=== PATIENT | male | born 1945 | race African-American/Black ===

== ENCOUNTER 2019-04-03 16:20 | Inpatient (IN) | payer MEDICARE, OTHER ==
[~2019-04-03] VITALS: Ht 170.2 cm; Wt 65.3 kg
--- NOTE | 2019-04-03 16:27 | NUR ---
ED Nurse Note: Pt brought in by ambulance d/t generalized weakness. Pt became so weak 3 days ago that he "slipped and fell." Pt denies trauma. Pt unable to ambulate at this time. Pt could not get out of bed to go get food, so pt is very hungry. Will ask ED MD about diet. A+Ox4, denies pain/SOB. Respirations even and unlabored on room air. Vitals stable as documented. Pt placed on monitor.
--- NOTE | 2019-04-03 16:32 | Emergency Room Report ---
History of Present Illness General Chief Complaint: Generalized Weakness Source: Patient, Friend Present Illness HPI Patient is a 73-year-old male presented after increased generalized weakness. Patient had a fall approximately 3 days ago. He denies hitting his head. He has been weak all over. Prior history of prostate cancer stage III. Chronic indwelling Morales catheter. He had been noted to have not been eating for several days and had been in bed. Denies any vomiting. Allergies: Coded Allergies: No Known Allergies (Unverified , 04/03/19) Patient History Past Medical History: see triage record Reviewed Nursing Documentation: PMH: Agreed; PSxH: Agreed Nursing Documentation-PMH Past Medical History: No History, Except For Hx Hypertension: Yes Hx COPD: Yes Review of Systems All Other Systems: negative except mentioned in HPI Physical Exam Vital Signs Date Time Temp Pulse Resp B/P (MAP) Pulse Ox O2 Delivery O2 Flow Rate FiO2 04/03/19 16:15 96.4 83 16 119/81 (94) 96 Room Air Sp02 EP Interpretation: reviewed, normal General Appearance: normal inspection, alert, Chronically Ill Head: atraumatic ENT: normal ENT inspection, normal voice, dry mucus membranes Neck: normal inspection, full range of motion, supple, no bony tend Respiratory: normal inspection, lungs clear, normal breath sounds, no respiratory distress, no retraction, no wheezing Cardiovascular #1: regular rate, rhythm, no edema Gastrointestinal: normal inspection, normal bowel sounds, non tender, soft, no guarding, no hernia Genitourinary: no CVA tenderness Musculoskeletal: normal inspection, back normal, normal range of motion Neurologic: alert, motor strength/tone normal, oriented, motor weakness, responsive, speech normal, other - atrophy to muscles Psychiatric: normal inspection, judgement/insight normal, mood/affect normal Skin: no rash Medical Decision Making Diagnostic Impression: Primary Impression: Episode of generalized weakness Additional Impressions: Stage III adenocarcinoma of prostate Dehydration ER Course Patient presented for increased generalized weakness after recent fall. The differential diagnosis include was not limited to electrolyte abnormality, dehydration, rhabdomyolysis, anemia among others. Because of complexity of patient's case laboratory tests and imaging studies were ordered. CT of the head read by radiology showed atrophic changes without evident intracranial hemorrhage. Laboratory studies showed some hyper natremia as well as low BUN. Patient's oral mucosa appeared to be dry. He was given oral fluids as well as IV fluids. Dr. Sawyer Toussaint was contacted for inpatient management. Labs Test 04/03/19 17:00 04/03/19 17:30 Urine Color Brown Urine Appearance Turbid Urine pH 5 (4.5-8.0) Urine Specific [place] 1.020 (1.005-1.035) Urine Protein 4+ (NEGATIVE) Urine Glucose (UA) Negative (NEGATIVE) Urine Ketones 3+ (NEGATIVE) Urine Blood 5+ (NEGATIVE) Urine Nitrite Positive (NEGATIVE) Urine Bilirubin 1+ (NEGATIVE) Urine Ictotest Negative (NEGATIVE) Urine Urobilinogen 1 MG/DL (0.0-1.0) Urine Leukocyte Esterase 3+ (NEGATIVE) Urine RBC Tntc /HPF (0 - 0) Urine WBC 20-30 /HPF (0 - 0) Urine Squamous Epithelial Cells Occasional /LPF Urine Bacteria Many /HPF (NONE) White Blood Count 10.4 K/UL (4.8-10.8) Red Blood Count 3.54 M/UL (4.70-6.10) Hemoglobin 9.8 G/DL (14.2-18.0) Hematocrit 29.7 % (42.0-52.0) Mean Corpuscular Volume 84 FL (80-99) Mean Corpuscular Hemoglobin 27.6 PG (27.0-31.0) Mean Corpuscular Hemoglobin Concent 32.9 G/DL (32.0-36.0) Red Cell Distribution Width 16.6 % (11.6-14.8) Platelet Count 241 K/UL (150-450) Mean Platelet Volume 5.6 FL (6.5-10.1) Neutrophils (%) (Auto) % (45.0-75.0) Lymphocytes (%) (Auto) % (20.0-45.0) Monocytes (%) (Auto) % (1.0-10.0) Eosinophils (%) (Auto) % (0.0-3.0) Basophils (%) (Auto) % (0.0-2.0) Sodium Level 148 MMOL/L (136-145) Potassium Level 3.7 MMOL/L (3.5-5.1) Chloride Level 110 MMOL/L (98-107) Carbon Dioxide Level 26 MMOL/L (21-32) Anion Gap 13 mmol/L (5-15) Blood Urea Nitrogen 4 mg/dL (7-18) Creatinine 0.7 MG/DL (0.55-1.30) Estimat Glomerular Filtration Rate mL/min (>60) Glucose Level 100 MG/DL (74-106) Calcium Level 8.1 MG/DL (8.5-10.1) Total Bilirubin 0.1 MG/DL (0.2-1.0) Aspartate Amino Transf (AST/SGOT) 32 U/L (15-37) Alanine Aminotransferase (ALT/SGPT) 32 U/L (12-78) Alkaline Phosphatase 91 U/L (46-116) Total Creatine Kinase 208 U/L (26-308) Troponin I 0.028 ng/mL (0.000-0.056) Pro-B-Type Natriuretic Peptide 32 pg/mL (0-125) Total Protein 8.0 G/DL (6.4-8.2) Albumin 4.0 G/DL (3.4-5.0) Globulin 4.0 g/dL Albumin/Globulin Ratio 1.0 (1.0-2.7) Thyroid Stimulating Hormone (TSH) 1.095 uiU/mL (0.358-3.740) EKG Diagnostic Results Rate: normal - Low voltage no acute ST or T wave changes rate of 86 Rhythm: NSR ST Segments: no acute changes Last Vital Signs Date Time Temp Pulse Resp B/P (MAP) Pulse Ox O2 Delivery O2 Flow Rate FiO2 04/03/19 16:15 96.4 83 16 119/81 (94) 96 Room Air Status: improved Disposition: ADMITTED INPATIENT Condition: Stable Joaquim Rubalcava MD Apr 03, 2019 16:32
--- NOTE | 2019-04-03 17:13 | NUR ---
ED Nurse Note: IV inserted, but not able to draw blood. Attempted blood draw, but patient is hard stick. Called lab for draw. Pt left for CT. will draw blood when pt is back
[2019-04-03 17:20] VITALS: BP 119/81
--- NOTE | 2019-04-03 17:40 | NUR ---
ED Nurse Note: blood drawn and sent to lab
[2019-04-03 17:48] LABS: HEMATOCRIT 29.7 % (42.0-52.0); HEMOGLOBIN 9.8 G/DL (14.2-18.0); MEAN CORPUSCULAR VOLUME 84 FL (80-99); PLATELET COUNT 241 K/UL (150-450); RED BLOOD COUNT 3.54 M/UL (4.70-6.10); RED CELL DISTRIBUTION WIDTH 16.6 % (11.6-14.8); WHITE BLOOD COUNT 10.4 K/UL (4.8-10.8)
[2019-04-03 17:53] LABS: APPEARANCE,URINE TURBID; BILIRUBIN, URINE 1+ (NEGATIVE); COLOR,URINE BROWN; GLUCOSE, URINE (UA) NEGATIVE (NEGATIVE); KETONES,URINE 3+ (NEGATIVE); LEUKOCYTE ESTERASE ,URINE 3+ (NEGATIVE); NITRITE,URINE POSITIVE (NEGATIVE); PH,URINE 5 (4.5-8.0); PROTEIN,URINE 4+ (NEGATIVE); UROBILINOGEN,URINE 1 MG/DL (0.0-1.0)
[2019-04-03] MEDS ORDERED: MORPHINE IR15 MG ORAL (18:02)
[2019-04-03] MEDS ORDERED: OXYCONTIN10 MG ORAL (18:02)
[2019-04-03] MEDS ORDERED: SULFAMETHOXAZO1 EAC1 ORAL (18:02)
[2019-04-03] MEDS ORDERED: ALBUTEROL2.5 MG/3 M INH (18:02)
[2019-04-03] MEDS ORDERED: AMLODIPINE BESYL5 MG ORAL (18:02)
[2019-04-03] MEDS ORDERED: ZOFRAN ODT8 MG ORAL (18:02)
[2019-04-03 18:06] LABS: ANION GAP 13 mmol/L (5-15); BLOOD UREA NITROGEN 4 mg/dL (7-18); CALCIUM 8.1 MG/DL (8.5-10.1); CARBON DIOXIDE 26 MMOL/L (21-32); CHLORIDE 110 MMOL/L (98-107); CREATININE 0.7 MG/DL (0.55-1.30); POTASSIUM 3.7 MMOL/L (3.5-5.1); SODIUM 148 MMOL/L (136-145)
--- NOTE | 2019-04-03 18:10 | Diagnostic Imaging Report ---
EXAM: CT Head Without Intravenous Contrast CLINICAL HISTORY: AMS TECHNIQUE: Axial computed tomography images of the head/brain without intravenous contrast. CTDI is 60.0 mGy and DLP is 1299.7 mGy-cm. One or more of the following dose reduction techniques were used: automated exposure control, adjustment of the mA and/or kV according to patient size, use of iterative reconstruction technique. COMPARISON: None FINDINGS: Brain: No acute infarct or hemorrhage identified. No extra-axial fluid collection. No mass effect or midline shift. Scattered areas of hypoattenuation in the supratentorial white matter likely represent chronic small vessel ischemic changes. Ventricles and sulci: Prominence of the ventricles and sulci is likely secondary to cerebral volume loss. Bones: Old fracture deformities of the lamina papyracea. No bony lesion or acute fracture. Subcutaneous tissues: Normal. Sinuses: Polyp versus mucous retention cyst in the left frontal sinus. Mastoid air cells: Normal. Orbits: Grossly unremarkable. Other: Atherosclerotic calcifications in the intracranial vasculature. IMPRESSION: 1. No acute intracranial abnormality. 2. Mild chronic small vessel ischemic changes and cerebral volume loss.
--- NOTE | 2019-04-03 18:11 | NUR ---
ED Nurse Note: [place] and juice given to patient.
[2019-04-03 18:20] LABS: ALANINE AMINOTRANSFERASE 32 U/L (12-78); ALKALINE PHOSPHATASE 91 U/L (46-116); ASPARTATE AMINO TRANSFERASE 32 U/L (15-37); BILIRUBIN,TOTAL 0.1 MG/DL (0.2-1.0)
--- NOTE | 2019-04-03 18:40 | NUR ---
ED Nurse Note: ED MD and family @ bedside. MD added another lab. Called Lab and they said they have enough blood for the CK.
[2019-04-03 18:51] LABS: CREATINE KINASE 208 U/L (26-308)
--- NOTE | 2019-04-03 19:09 | NUR ---
ED Nurse Note: Report given to BLANCA Briggs. Plan of care endorsed.
[2019-04-03 19:10] VITALS: BP 125/73
--- NOTE | 2019-04-03 19:19 | NUR ---
ED Nurse Note: Received report from June RIOS.
[2019-04-03] MEDS ORDERED: cefTRIAXone 1 GM in D5W 55 ML IVPB ONE (20:00)
--- NOTE | 2019-04-03 21:07 | NUR ---
ED Nurse Note: Report given to Try RN.
[2019-04-03 21:10] VITALS: BP 122/72
--- NOTE | 2019-04-03 21:10 | NUR ---
TRANSFER TO FLOOR: Patient transferred to Telemetry unit. Report given to TRy RN. Pt alert and oriented, verbally responsive. No SOB. Not in any distress. Afebrile. Sinus rhythm. IV line on right forearm 22g, patent and intact. No skin issues. Med recon done. All belongings sent with the patient.
[2019-04-03 21:30] VITALS: BP 134/84
[2019-04-04] VITALS: BP 105/70
[2019-04-04 04:00] VITALS: BP 124/68
[2019-04-04 07:30] LABS: HEMATOCRIT 25.9 % (42.0-52.0); HEMOGLOBIN 9.2 G/DL (14.2-18.0); MEAN CORPUSCULAR VOLUME 81 FL (80-99); PLATELET COUNT 252 K/UL (150-450); RED CELL DISTRIBUTION WIDTH 15.7 % (11.6-14.8); WHITE BLOOD COUNT 11.4 K/UL (4.8-10.8)
--- NOTE | 2019-04-04 07:50 | NUR ---
NURSE NOTES: Received bedside report from Chris RIOS. Pt. in bed, awake, a/o x 4. No sign of distress. Denies pain at present. F/C in placed patent/intact draining yellow colored urine. IV at right FA #20g. in placed patent/intact running NS at 75cc/hr. Bed in low position, locked. Call light within reach. Will cont. to monitor.
[2019-04-04 08:00] VITALS: BP 127/77
[2019-04-04 08:21] LABS: ANION GAP 16 mmol/L (5-15); BLOOD UREA NITROGEN 36 mg/dL (7-18); CARBON DIOXIDE 24 MMOL/L (21-32); CHLORIDE 108 MMOL/L (98-107); CREATININE 1.9 MG/DL (0.55-1.30); SODIUM 148 MMOL/L (136-145)
[2019-04-04 08:26] LABS: CALCIUM 13.4 MG/DL (8.5-10.1); POTASSIUM 2.6 MMOL/L (3.5-5.1)
--- NOTE | 2019-04-04 08:29 | NUR ---
NURSE NOTES: Dr. Toussaint (here at present) informed him regarding critical labs. K+ 2.6 and Calcium 13.4 he will review.
[2019-04-04] MEDS: Enoxaparin 30mg Inj SUBQ SCH (09:02)
--- NOTE | 2019-04-04 10:40 | NUR ---
NURSE NOTES: Amy (dtr) of pt. called and told RN that pt. supposedly to be transfer to [facility] last night and told RN not to give anymore medications. Explained due to his low K+ level and calcium Dr. Ro ordered K+ 40meq. IV x over an hour and calcitonin spray. She said (Amy) [facility] will know what to give for him because he is a pt. over there for 5 years now. CODY Smyth RN handed the matter regarding this issue. Gave CN the dtr's Amy .
[2019-04-04 12:00] VITALS: BP 126/89
--- NOTE | 2019-04-04 12:04 | Consultation ---
History of Present Illness General Date patient seen: Apr 04, 2019 Chief Complaint: Generalized Weakness Present Illness HPI 73 y/o M wtih hx of prostate CA stage III, chronic indwelling guerra catheter presented to ED on 04/03 with increased generalized weakness after having fall 3 days prior to admission. Decreased appetite. Denied hitting his head, vomiting. Allergies: Coded Allergies: No Known Allergies (Unverified , 04/03/19) Medication History Scheduled Amlodipine Besylate* (Amlodipine Besylate*), 5 MG ORAL DAILY, (Reported) Oxycodone Hcl Er* (Oxycontin*), 10 MG ORAL EVERY 6 HOURS, (Reported) Sulfamethoxazole/Trimethoprim Ss Tab* (Sulfamethoxazole-Tmp Ss Tablet*), 1 TAB ORAL TWICE A DAY, (Reported) Scheduled PRN Albuterol Sulfate* (Albuterol Sulfate Hhn*), 3 ML INH Q6H PRN for Shortness of Breath, (Reported) Morphine HCl (Morphine Sulfate ER), 30 MG ORAL Q12HR PRN for For Pain, (Reported ) Ondansetron Odt* (Zofran Odt*), 8 MG ORAL Q8HR PRN for Nausea & Vomiting, ( Reported) Patient History Healthcare decision maker Resuscitation status Full Code Advanced Directive on File Patient History Narrative Pmhx: as above Shx: reviewed Fhx: non contributory Review of Systems All Other Systems: negative except mentioned in HPI Physical Exam Physical Exam Narrative General Appearance: normal inspection, alert, Chronically Ill Head: atraumatic ENT: normal ENT inspection, normal voice, dry mucus membranes Neck: normal inspection, full range of motion, supple, no bony tend Respiratory: normal inspection, lungs clear, normal breath sounds, no respiratory distress, no retraction, no wheezing Cardiovascular #1: regular rate, rhythm, no edema Gastrointestinal: normal inspection, normal bowel sounds, non tender, soft, no guarding, no hernia Genitourinary: no CVA tenderness Musculoskeletal: normal inspection, back normal, normal range of motion Neurologic: alert, motor strength/tone normal, oriented, motor weakness, responsive, speech normal, other - atrophy to muscles Psychiatric: normal inspection, judgement/insight normal, mood/affect normal Skin: no rash Last 24 Hour Vital Signs Date Time Temp Pulse Resp B/P (MAP) Pulse Ox O2 Delivery O2 Flow Rate FiO2 04/04/19 08:00 97.0 111 20 127/77 (94) 93 04/04/19 04:00 97.7 82 18 124/68 (86) 98 04/04/19 04:00 110 04/04/19 00:00 92 04/04/19 00:00 97.6 88 18 105/70 (82) 95 04/03/19 21:30 97.4 89 18 134/84 (101) 97 04/03/19 21:11 Room Air 04/03/19 21:10 98.5 82 19 122/72 97 Room Air 04/03/19 21:10 98.5 82 19 122/72 97 Room Air 04/03/19 19:10 97.9 71 19 125/73 100 Room Air 04/03/19 17:20 83 16 Room Air 04/03/19 17:20 96.4 75 16 119/81 96 Room Air 04/03/19 16:15 96.4 83 16 119/81 (94) 96 Room Air Intake and Output 04/03/19 04/04/19 19:00 07:00 Intake Total 1000 ml Output Total 300 ml Balance 1000 ml -300 ml Intake Oral 0 ml IV Total 1000 ml Output Urine Total 300 ml Laboratory Tests Test 04/03/19 17:00 04/03/19 17:30 04/04/19 06:20 Urine Color Brown Urine Appearance Turbid Urine pH 5 (4.5-8.0) Urine Specific [place] 1.020 (1.005-1.035) Urine Protein 4+ (NEGATIVE) H Urine Glucose (UA) Negative (NEGATIVE) Urine Ketones 3+ (NEGATIVE) H Urine Blood 5+ (NEGATIVE) H Urine Nitrite Positive (NEGATIVE) H Urine Bilirubin 1+ (NEGATIVE) H Urine Ictotest Negative (NEGATIVE) Urine Urobilinogen 1 MG/DL (0.0-1.0) H Urine Leukocyte Esterase 3+ (NEGATIVE) H Urine RBC Tntc /HPF (0 - 0) H Urine WBC 20-30 /HPF (0 - 0) H Urine Squamous Epithelial Cells Occasional /LPF Urine Bacteria Many /HPF (NONE) H White Blood Count 10.4 K/UL (4.8-10.8) 11.4 K/UL (4.8-10.8) H Red Blood Count 3.54 M/UL (4.70-6.10) L 3.20 M/UL (4.70-6.10) L Hemoglobin 9.8 G/DL (14.2-18.0) L 9.2 G/DL (14.2-18.0) L Hematocrit 29.7 % (42.0-52.0) L 25.9 % (42.0-52.0) L Mean Corpuscular Volume 84 FL (80-99) 81 FL (80-99) Mean Corpuscular Hemoglobin 27.6 PG (27.0-31.0) 28.8 PG (27.0-31.0) Mean Corpuscular Hemoglobin Concent 32.9 G/DL (32.0-36.0) 35.5 G/DL (32.0-36.0) Red Cell Distribution Width 16.6 % (11.6-14.8) H 15.7 % (11.6-14.8) H Platelet Count 241 K/UL (150-450) 252 K/UL (150-450) Mean Platelet Volume 5.6 FL (6.5-10.1) L 5.9 FL (6.5-10.1) L Neutrophils (%) (Auto) % (45.0-75.0) % (45.0-75.0) Lymphocytes (%) (Auto) % (20.0-45.0) % (20.0-45.0) Monocytes (%) (Auto) % (1.0-10.0) % (1.0-10.0) Eosinophils (%) (Auto) % (0.0-3.0) % (0.0-3.0) Basophils (%) (Auto) % (0.0-2.0) % (0.0-2.0) Differential Total Cells Counted 100 100 Neutrophils % (Manual) 85 % (45-75) H 86 % (45-75) H Lymphocytes % (Manual) 8 % (20-45) L 7 % (20-45) L Monocytes % (Manual) 6 % (1-10) 5 % (1-10) Eosinophils % (Manual) 1 % (0-3) 1 % (0-3) Basophils % (Manual) 0 % (0-2) 1 % (0-2) Band Neutrophils 0 % (0-8) 0 % (0-8) Platelet Estimate Adequate Adequate Platelet Morphology Normal Normal Hypochromasia 1+ 2+ Anisocytosis 1+ 1+ Sodium Level 148 MMOL/L (136-145) H 148 MMOL/L (136-145) H Potassium Level 3.7 MMOL/L (3.5-5.1) 2.6 MMOL/L (3.5-5.1) *L Chloride Level 110 MMOL/L (98-107) H 108 MMOL/L (98-107) H Carbon Dioxide Level 26 MMOL/L (21-32) 24 MMOL/L (21-32) Anion Gap 13 mmol/L (5-15) 16 mmol/L (5-15) H Blood Urea Nitrogen 4 mg/dL (7-18) L 36 mg/dL (7-18) H Creatinine 0.7 MG/DL (0.55-1.30) 1.9 MG/DL (0.55-1.30) #H Estimat Glomerular Filtration Rate mL/min (>60) mL/min (>60) Glucose Level 100 MG/DL (74-106) 97 MG/DL (74-106) Calcium Level 8.1 MG/DL (8.5-10.1) L 13.4 MG/DL (8.5-10.1) #*H Total Bilirubin 0.1 MG/DL (0.2-1.0) L Aspartate Amino Transf (AST/SGOT) 32 U/L (15-37) Alanine Aminotransferase (ALT/SGPT) 32 U/L (12-78) Alkaline Phosphatase 91 U/L (46-116) Total Creatine Kinase 208 U/L (26-308) Troponin I 0.028 ng/mL (0.000-0.056) Pro-B-Type Natriuretic Peptide 32 pg/mL (0-125) Total Protein 8.0 G/DL (6.4-8.2) Albumin 4.0 G/DL (3.4-5.0) Globulin 4.0 g/dL Albumin/Globulin Ratio 1.0 (1.0-2.7) Thyroid Stimulating Hormone (TSH) 1.095 uiU/mL (0.358-3.740) Prostate Specific Antigen 753.77 ng/mL (0.13-4.0) H Microbiology Date/Time Source Procedure Growth Status 04/03/19 17:00 Urine,Clean Catch Urine Culture - Preliminary Gram Negative Mannie Resulted Height (Feet): 5 Height (Inches): 7.00 Weight (Pounds): 100 Medications Current Medications Medications (Trade) Dose Ordered Sig/[place] Route PRN Reason Start Time Stop Time Status Last Admin Dose Admin Calcitonin [place] (Miacalcin) 1 sprays BID NASAL 04/04/19 09:30 05/04/19 09:29 Ceftriaxone Sodium 1 gm/ Dextrose 55 ml @ 110 mls/hr Q24H IVPB 04/04/19 20:00 04/11/19 19:59 Enoxaparin Sodium (Lovenox) 30 mg DAILY SUBQ 04/04/19 09:00 05/04/19 08:59 04/04/19 09:02 Potassium Chloride 100 ml @ 100 mls/hr Q1HR IVPB 04/04/19 09:00 04/04/19 12:59 04/04/19 10:07 Sodium Chloride 1,000 ml @ 75 mls/hr [id number] IV 04/03/19 20:15 05/03/19 20:14 04/04/19 10:07 Assessment/Plan Assessment/Plan: Abx: Ceftriaxone 04/03- Assessment: Sepsis UTI -u/a wbc 20-30, nit +, leuk +3; ucx >100k GNR Afebrile Mild leukocytosis s/p recent fall LETA Hypokalemia prostate CA stage III chronic indwelling guerra catheter Plan: -Continue empiric Ceftriaxone #2 pending urine culture -f/u cx -Monitor CBC/CMP, temperatures -aspiration precautions Thank you for this consultation. Will continue to follow along with you. Discussed with Rafia Little M.D. Apr 04, 2019 12:04
--- NOTE | 2019-04-04 12:09 | NUR ---
NURSE NOTES: Amy (dtr) refused for nurse to give medication. Explained risk and benefits but told RN he will received meds. at [facility].
--- NOTE | 2019-04-04 12:45 | History and Physical Report ---
DATE OF ADMISSION: 04/03/2019 DATE AND TIME SEEN: 04/04/2019 at 9 a.m. CONSULTANTS: 1. Andreas Monroy M.D. 2. Bryce Osorio M.D. 3. Timi Mota M.D. 4. Carlos White M.D. 5. Cherise Palma M.D. CHIEF COMPLAINT: Prostate CA, confusion, weakness, UTI, dehydration, and fall. BRIEF HISTORY: This is a 73-year-old male, who lives at home, presented with above-mentioned diagnoses. Currently, calm in bed, slightly confused. No complaint. REVIEW OF SYSTEMS: No chest pain. Slight short of breath. No nausea, vomiting, or diarrhea. PAST MEDICAL HISTORY: Includes prostate cancer and weakness. PAST SURGICAL HISTORY: Unknown. MEDICATIONS: Include ceftriaxone, calcitonin, , potassium, and IV fluids. ALLERGIES: Denies. SOCIAL HISTORY: No smoking. No alcohol. No intravenous drug abuse. FAMILY HISTORY: Noncontributory. PHYSICAL EXAMINATION: GENERAL: Calm in bed, oriented x1, in no acute distress. VITAL SIGNS: Temperature 97, pulse 111, respirations 20, blood pressure 127/77. CARDIOVASCULAR: No murmur. LUNGS: Distant and clear. ABDOMEN: Positive bowel sounds. Soft, nontender, nondistended. EXTREMITIES: No cyanosis, clubbing, or edema. NEUROLOGIC: The patient moves all extremities, slightly weak. LABORATORY AND DIAGNOSTIC DATA: Labs at this time show white count 11.4, hemoglobin and hematocrit 9.2/25, platelets 252. BMP show sodium 148, potassium 2.6, chloride 108, BUN and creatinine 36 and 1.9. Calcium 13.4. Urinalysis show positive nitrite, ketones 3+, blood 3+, leukocyte 3+. ASSESSMENT: 1. Prostate CA. 2. Confusion. 3. Weakness. 4. Fall. 5. Anemia. 6. UTI. 7. Dehydration. PLAN: 1. PT and dietary evaluation. 2. CBC and BMP in the morning. 3. Antibiotics per Infectious Disease. 4. IV fluids. 5. Replace potassium. 6. Psych and Neuro evaluation. Sawyer Toussaint D.O. DR: HITESH JOB#: [id number] CC:
--- NOTE | 2019-04-04 13:36 | Diagnostic Imaging Report ---
EXAM: US Retroperitoneal Limited, Renal CLINICAL HISTORY: RENAL-A TECHNIQUE: Real-time limited ultrasound of the retroperitoneum with image documentation. COMPARISON: No relevant prior studies available. FINDINGS: Right kidney: Mild-moderate right hydronephrosis. No clear renal mass.. Left kidney: Moderate left hydronephrosis. No clear renal mass. Debris within left renal calyces, potentially infectious or hemorrhagic. Urinary bladder: Decompressed by Morales catheter. IMPRESSION: Moderate left and mild-moderate right hydronephrosis. Debris within left renal calyces, potentially infectious or hemorrhagic. Urinary bladder is decompressed by Morales catheter.
[2019-04-04 16:00] VITALS: BP 151/89
[2019-04-04] MEDS: Memantine 5 MG TAB ORAL SCH (18:00)
--- NOTE | 2019-04-04 18:13 | NUR ---
NURSE NOTES: Family refused to give medications.
--- NOTE | 2019-04-04 19:13 | NUR ---
HAND-OFF: Report given to Francisco RIOS. Endorsed pt. got order to transfer to [facility] pending MD acceptance. Pt. remain stable.
--- NOTE | 2019-04-04 19:14 | NUR ---
NURSE NOTES: K:2.6 Per report from Quan RN daughter of pt does not want K to be given because says [facility] knows what to give her and she wants it to be given there. Pt in stable condition. Continue to monitor.
[2019-04-04 20:00] VITALS: BP 150/86
[2019-04-04] MEDS: cefTRIAXone 1 GM in D5W 55 ML IVPB SCH (20:34)
--- NOTE | 2019-04-04 21:00 | Consultation ---
DATE OF CONSULTATION: 04/04/2019 CONSULTING PHYSICIAN: Carlos White M.D. REASON FOR CONSULTATION: 1. Acute kidney injury. 2. Hypokalemia. 3. Dehydration. HISTORY OF PRESENT ILLNESS: The patient is a 73-year-old gentleman who lives at home, presented with dehydration, not feeling well, confusion, and upon presentation was noted to have an elevated creatinine, low potassium, and high calcium level. He does have a history of prostate cancer and is currently being treated for UTI and dehydration. PAST MEDICAL HISTORY: 1. Prostate cancer. 2. Dehydration. PAST SURGICAL HISTORY: Unclear. ALLERGIES: No known drug allergies. SOCIAL HISTORY: No tobacco, alcohol, or illicit drug use. FAMILY HISTORY: Positive for hypertension. REVIEW OF SYSTEMS: NEUROLOGIC: The patient denies headache, change in vision, syncope, or presyncopal episode. Mildly confused. CARDIOVASCULAR: No current chest pain, palpitations, or angina. PULMONARY: No difficulty breathing, productive cough, or sputum. GASTROINTESTINAL/GENITOURINARY: No changes in urinary or bowel habits. No nausea, vomiting, or diarrhea. ENDOCRINOLOGY: No night sweats, fevers, or chills. MUSCULOSKELETAL: The patient is feeling tired and fatigued. LABORATORY DATA: Labs dated 04/04/2019, white count 11.4, hemoglobin 9.2, and platelet count 252,000. Sodium 148, potassium 2.6, BUN 36, creatinine 1.9, and calcium 13.4. PHYSICAL EXAMINATION: VITAL SIGNS: Blood pressure 127/77, respiratory rate 20, pulse 111, and temperature 97. GENERAL: The patient is awake, mildly confused. HEENT: Extraocular muscles intact. No lymphadenopathy noted. . CARDIOVASCULAR: S1, S2. No rubs or gallops. PULMONARY: Clear to auscultation bilaterally. No rales, rhonchi, or wheezes. ABDOMEN: Nondistended and nontender. EXTREMITIES: No edema. ASSESSMENT AND PLAN: 1. Acute kidney injury. At this time, it is likely secondary to dehydration from hypercalcemia. We will continue to aggressively hydrate the patient and correct underlying hypercalcemia. 2. Prostate cancer with tremendously elevated PSA. Defer to Hematology/Oncology. 3. Hypokalemia. The patient is being replaced with 40 mEq IV. 4. Sepsis and UTI per Infectious Disease. 5. Hypernatremia secondary to dehydration. We will adjust IV fluids. Carlos White MD DR: SHAMIR JOB#: [id number] CC:
[2019-04-05] VITALS: BP 146/91
[2019-04-05 04:00] VITALS: BP 142/90
[2019-04-05] MEDS ORDERED: Albuterol/Ipratropium 3ml neb HHN PRN (06:30)
--- NOTE | 2019-04-05 06:30 | Consultation ---
History of Present Illness General Chief Complaint: Generalized Weakness Present Illness Allergies: Coded Allergies: No Known Allergies (Unverified , 04/03/19) Medication History Scheduled Amlodipine Besylate* (Amlodipine Besylate*), 5 MG ORAL DAILY, (Reported) Oxycodone Hcl Er* (Oxycontin*), 10 MG ORAL EVERY 6 HOURS, (Reported) Sulfamethoxazole/Trimethoprim Ss Tab* (Sulfamethoxazole-Tmp Ss Tablet*), 1 TAB ORAL TWICE A DAY, (Reported) Scheduled PRN Albuterol Sulfate* (Albuterol Sulfate Hhn*), 3 ML INH Q6H PRN for Shortness of Breath, (Reported) Morphine HCl (Morphine Sulfate ER), 30 MG ORAL Q12HR PRN for For Pain, (Reported ) Ondansetron Odt* (Zofran Odt*), 8 MG ORAL Q8HR PRN for Nausea & Vomiting, ( Reported) Patient History Healthcare decision maker Resuscitation status Full Code Advanced Directive on File Physical Exam Last 24 Hour Vital Signs Date Time Temp Pulse Resp B/P (MAP) Pulse Ox O2 Delivery O2 Flow Rate FiO2 04/05/19 04:00 98.4 62 20 142/90 (107) 95 04/05/19 04:00 106 04/05/19 00:00 98.5 100 18 146/91 (109) 95 04/05/19 00:00 101 04/04/19 21:00 Room Air 04/04/19 20:00 106 04/04/19 20:00 97.5 89 18 150/86 (107) 95 04/04/19 16:15 109 04/04/19 16:00 97.5 120 20 151/89 (109) 93 04/04/19 12:00 97.9 114 18 126/89 (101) 95 04/04/19 11:46 117 04/04/19 09:00 Room Air 04/04/19 08:00 97.0 111 20 127/77 (94) 93 04/04/19 07:42 107 Intake and Output 04/04/19 04/05/19 19:00 07:00 Output Total 500 ml Balance -500 ml Output Urine Total 500 ml Height (Feet): 5 Height (Inches): 7.00 Weight (Pounds): 100 Medications Current Medications Medications (Trade) Dose Ordered Sig/[place] Route PRN Reason Start Time Stop Time Status Last Admin Dose Admin Calcitonin [place] (Miacalcin) 1 sprays BID NASAL 04/04/19 09:30 05/04/19 09:29 Ceftriaxone Sodium 1 gm/ Dextrose 55 ml @ 110 mls/hr Q24H IVPB 04/04/19 20:00 04/11/19 19:59 04/04/19 20:34 Enoxaparin Sodium (Lovenox) 30 mg DAILY SUBQ 04/04/19 09:00 05/04/19 08:59 04/04/19 09:02 Memantine (Namenda) 5 mg BID ORAL 04/04/19 18:00 05/04/19 17:59 Sertraline HCl (Zoloft) 25 mg DAILY ORAL 04/05/19 09:00 05/05/19 08:59 Sodium Chloride 1,000 ml @ 100 mls/hr Q10H IV 04/04/19 12:59 05/04/19 12:58 04/05/19 01:59 Assessment/Plan Assessment/Plan: Hematology Consultation REQ : Drew Toussaint RFC: Hypercalcemia, prostate ca DOS: 04/05/2019 ID Patient is a 73-year-old male presented after increased generalized weakness. Patient had a fall approximately 3 days ago. He denies hitting his head. He has been weak all over. Prior history of prostate cancer stage III. Chronic indwelling Morales catheter. He had been noted to have not been eating for several days and had been in bed. Denies any vomiting. Noted here at this time to have a psa >700, cr is worse, hydronephrosis noted, seen by renal, Dr. White. He is a very poor historian, I attempted to contact his but no answer. 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, used to smoke in the past Nursing Documentation-PMH Past Medical History: No History, Except For Hx Hypertension: Yes Review of Systems All Other Systems: negative except mentioned in HPI Physical Exam Vital Signs General: normal inspection, alert, Chronically Ill Respiratory: normal inspection, lungs clear, normal breath sounds Cardiovascular: regular rate, rhythm, no edema Gastrointestinal: normal inspection, normal bowel sounds Genitourinary: no CVA tenderness Mus: normal inspection, back normal, normal range of motion Neurologic: alert, motor strength/tone normal, oriented + confused Psychiatric: normal inspection, judgement/insight normal Skin: no rash Labs: noted Imaging: reivewed Assessment and Recs: # Prostate cancer with psa >700, cr is worse, hydronephrosis noted, seen by renal, Dr. White. --> He is a very poor historian, I attempted to contact his but no answer. --> imaging has been noted --> as per urology, consider lupron v chemo --> have called , no answer, trans to [facility]? --> psa 737 # Hypercalcemia -- now acutely worse --> trend Ca 8.1-->13 --> ivf has been started --> as per nephrology --> consider pamidronate v calcitonin v other agent # Episode of generalized weakness --> on ivf --> pt as needed # Hypokalemia --> replete prn # Dehydration --> on ivf # Atrophic changes without evident intracranial hemorrhage. --> as per neuro, remains confused # Hypernatremia as well as low BUN. --> on ivf Appreciate consultation and Andreas Valladares Rn, MD Apr 05, 2019 06:30
--- NOTE | 2019-04-05 07:45 | NUR ---
HAND-OFF: Report given to David ROIS.
[2019-04-05 08:00] VITALS: BP 158/103
[2019-04-05 08:09] LABS: BASOPHILS % (AUTO) 0.4 % (0.0-2.0); EOSINOPHILS % (AUTO) 1.3 % (0.0-3.0); HEMOGLOBIN 10.1 G/DL (14.2-18.0); LYMPHOCYTES % (AUTO) 8.6 % (20.0-45.0); MEAN CORPUSCULAR VOLUME 82 FL (80-99); MONOCYTES % (AUTO) 5.4 % (1.0-10.0); NEUTROPHILS % (AUTO) 84.4 % (45.0-75.0); PLATELET COUNT 238 K/UL (150-450); RED BLOOD COUNT 3.54 M/UL (4.70-6.10); RED CELL DISTRIBUTION WIDTH 15.9 % (11.6-14.8); WHITE BLOOD COUNT 9.5 K/UL (4.8-10.8)
--- NOTE | 2019-04-05 08:10 | NUR ---
NURSE NOTES: Patient sitting up in bed, eating breakfast, television on, on room air, bed in lowest position, call light within reach, no c/o pain, no SOB, in no apparent distress. Notified Dr. Sawyer Toussaint in person that potassium was 2.6 yesterday. Received orders.
[2019-04-05] MEDS: Memantine 5 MG TAB ORAL SCH ×2 (08:20→17:33)
[2019-04-05] MEDS: Enoxaparin 30mg Inj SUBQ SCH (08:21)
--- NOTE | 2019-04-05 08:26 | General Progress Note ---
Assessment/Plan Problem List: (1) UTI (urinary tract infection) ICD Codes: N39.0 - Urinary tract infection, site not specified SNOMED: 55820167 (2) Weak ICD Codes: R53.1 - Weakness SNOMED: 34946099 (3) Anemia ICD Codes: D64.9 - Anemia, unspecified SNOMED: 002075924 (4) Dehydration ICD Codes: E86.0 - Dehydration SNOMED: 11893936, 48727774 (5) Episode of generalized weakness ICD Codes: R53.1 - Weakness SNOMED: 80054691 (6) Stage III adenocarcinoma of prostate ICD Codes: C61 - Malignant neoplasm of prostate SNOMED: 413035599, 60846463 Status: unchanged Assessment/Plan: pe diet abx iv fluid heme eval cbc bmp am Subjective Constitutional: Reports: weakness Allergies: Coded Allergies: No Known Allergies (Unverified , 04/03/19) All Systems: reviewed and negative except above Subjective calm in bed Objective Last 24 Hour Vital Signs Date Time Temp Pulse Resp B/P (MAP) Pulse Ox O2 Delivery O2 Flow Rate FiO2 04/05/19 04:00 98.4 62 20 142/90 (107) 95 04/05/19 04:00 106 04/05/19 00:00 98.5 100 18 146/91 (109) 95 04/05/19 00:00 101 04/04/19 21:00 Room Air 04/04/19 20:00 106 04/04/19 20:00 97.5 89 18 150/86 (107) 95 04/04/19 16:15 109 04/04/19 16:00 97.5 120 20 151/89 (109) 93 04/04/19 12:00 97.9 114 18 126/89 (101) 95 04/04/19 11:46 117 04/04/19 09:00 Room Air Intake and Output 04/04/19 04/05/19 19:00 07:00 Output Total 500 ml 400 ml Balance -500 ml -400 ml Output Urine Total 500 ml 400 ml # Bowel Movements 1 Laboratory Tests 04/05/19 07:20: White Blood Count [Pending], Red Blood Count [Pending], Hemoglobin [Pending], Hematocrit [Pending], Mean Corpuscular Volume [Pending], Mean Corpuscular Hemoglobin [Pending], Mean Corpuscular Hemoglobin Concent [Pending], Red Cell Distribution Width [Pending], Platelet Count [Pending], Mean Platelet Volume [ Pending], Neutrophils (%) (Auto) [Pending], Lymphocytes (%) (Auto) [Pending], Monocytes (%) (Auto) [Pending], Eosinophils (%) (Auto) [Pending], Basophils (%) (Auto) [Pending], Sodium Level [Pending], Potassium Level [Pending], Chloride Level [Pending], Carbon Dioxide Level [Pending], Blood Urea Nitrogen [Pending], Creatinine [Pending], Estimat Glomerular Filtration Rate [Pending], Glucose Level [Pending], Calcium Level [Pending], Calcium (Send out) [Pending], Parathyroid Hormone (Intact) [Pending] Height (Feet): 5 Height (Inches): 7.00 Weight (Pounds): 100 General Appearance: lethargic EENT: normal ENT inspection Neck: normal alignment Cardiovascular: normal peripheral pulses, normal rate, regular rhythm Respiratory/Chest: chest wall non-tender, lungs clear, normal breath sounds Abdomen: normal bowel sounds, non tender, soft Extremities: normal inspection Edema: no edema noted Arm (L), no edema noted Arm (R), no edema noted Leg (L), no edema noted Leg (R), no edema noted Pedal (L), no edema noted Pedal (R), no edema noted Generalized Neurologic: motor weakness Skin: normal pigmentation, warm/dry Sawyer Toussaint DO Apr 05, 2019 08:26
[2019-04-05 08:39] LABS: ANION GAP 8 mmol/L (5-15); BLOOD UREA NITROGEN 28 mg/dL (7-18); CALCIUM 12.9 MG/DL (8.5-10.1); CARBON DIOXIDE 31 MMOL/L (21-32); CHLORIDE 113 MMOL/L (98-107); CREATININE 1.6 MG/DL (0.55-1.30); SODIUM 152 MMOL/L (136-145)
[2019-04-05 08:46] LABS: POTASSIUM 2.4 MMOL/L (3.5-5.1)
[2019-04-05] MEDS ORDERED: Sertraline 50mg tab ORAL SCH (09:00)
--- NOTE | 2019-04-05 09:56 | NUR ---
NURSE NOTES: Reported elevated blood pressure to Dr. Sawyer Toussaint, received orders. Will provide medication to patient when available.
--- NOTE | 2019-04-05 10:28 | NUR ---
NURSE NOTES: Notified Dr. Carlos Pascual potassium=2.4. Received orders for potassium replacement. Provided KCl po.
[2019-04-05 12:00] VITALS: BP 148/85
[2019-04-05] MEDS ORDERED: Potassium Chloride 50 MEQ in Sodium Chloride 550 ML IVPB ONE (12:00)
--- NOTE | 2019-04-05 12:32 | Nephrology Progress Note ---
Assessment/Plan Status: unchanged Assessment/Plan: A/P 1. LETA. secondary to dehydration from hypercalcemia. -We will continue to hydrate the patient and correct underlying hypercalcemia. - cr down to 1.6 2. Prostate cancer with tremendously elevated PSA. Defer to Hematology/Oncology. Family to decide on Hospice 3. Hypokalemia. The patient is being replaced with 50 mEq IV. 4. Sepsis and UTI per Infectious Disease. 5. Hypernatremia secondary to dehydration. started D5W Subjective Date patient seen: Apr 05, 2019 Time patient seen: 12:30 ROS Limited/Unobtainable: Yes Allergies: Coded Allergies: No Known Allergies (Unverified , 04/03/19) Subjective Ill appearing Objective Last 24 Hour Vital Signs Date Time Temp Pulse Resp B/P (MAP) Pulse Ox O2 Delivery O2 Flow Rate FiO2 04/05/19 10:03 158/103 04/05/19 08:00 97.5 107 21 158/103 (121) 90 04/05/19 04:00 98.4 62 20 142/90 (107) 95 04/05/19 04:00 106 04/05/19 00:00 98.5 100 18 146/91 (109) 95 04/05/19 00:00 101 04/04/19 21:00 Room Air 04/04/19 20:00 106 04/04/19 20:00 97.5 89 18 150/86 (107) 95 04/04/19 16:15 109 04/04/19 16:00 97.5 120 20 151/89 (109) 93 Intake and Output 04/04/19 04/05/19 19:00 07:00 Output Total 500 ml 400 ml Balance -500 ml -400 ml Output Urine Total 500 ml 400 ml # Bowel Movements 1 Laboratory Tests 04/05/19 07:20: White Blood Count 9.5, Red Blood Count 3.54L, Hemoglobin 10.1L, Hematocrit 29.0L , Mean Corpuscular Volume 82, Mean Corpuscular Hemoglobin 28.5, Mean Corpuscular Hemoglobin Concent 34.7, Red Cell Distribution Width 15.9H, Platelet Count 238, Mean Platelet Volume 5.2L, Neutrophils (%) (Auto) 84.4H, Lymphocytes (%) (Auto) 8.6L, Monocytes (%) (Auto) 5.4, Eosinophils (%) (Auto) 1.3, Basophils (%) (Auto) 0.4, Sodium Level 152H, Potassium Level 2.4*L, Chloride Level 113H, Carbon Dioxide Level 31, Anion Gap 8, Blood Urea Nitrogen 28H, Creatinine 1.6H, Estimat Glomerular Filtration Rate , Glucose Level 109H, Calcium Level 12.9H, Calcium (Send out) [Pending], Parathyroid Hormone (Intact) [Pending] Height (Feet): 5 Height (Inches): 7.00 Weight (Pounds): 100 General Appearance: lethargic EENT: normal ENT inspection Neck: normal alignment, supple Cardiovascular: normal rate, regular rhythm Respiratory/Chest: normal breath sounds Abdomen: non tender, soft Edema: no edema noted Arm (L), no edema noted Arm (R), no edema noted Leg (L), no edema noted Leg (R), no edema noted Pedal (L), no edema noted Pedal (R), no edema noted Generalized Carlos White MD Apr 05, 2019 12:32
--- NOTE | 2019-04-05 13:02 | NUR ---
RD ASSESSMENT & RECOMMENDATIONS SEE CARE ACTIVITY FOR COMPLETE ASSESSMENT DAILY ESTIMATED NEEDS: Needs based on Underweight, cancer 54.7kg 30-35 kcals/kg 5387-4710 total kcals 1-2 g protein/kg 55-109 g total protein 25-30 mL/kg 4544-1114 total fluid mLs NUTRITION DIAGNOSIS: Underweight r/t cancer? as evidenced by pt w/ prostate cancer, elevated antigen and calcium levels, w/ generalized moderate wasting, poor po intake, pt is 81% of [place] body Weight. CURRENT DIET:Regular PO DIET RECOMMENDATIONS: maintain REGULAR DIET/ texture per TOMATO GRADER ADDITIONAL RECOMMENDATIONS: 1) Recalibrated bed wts for daily wts 2) Add ENSURE TID to meals 3) TOMATO GRADER eval 4) 1:1 feeds w/ all meals 5) Rec to limit dairy products to qdaily
[2019-04-05] MEDS: D5W w/KCl 20mEq 1,000 ML IV SCH (13:31)
--- NOTE | 2019-04-05 14:55 | NUR ---
[facility] called, Admitting Md will be Dr Ge, no bed yet
[2019-04-05 16:00] VITALS: BP 143/83
--- NOTE | 2019-04-05 16:14 | NUR ---
PT Note PT sb completed. Patient is lethargic; has muscle weakness. RN advised to defer EOB/OOB activities; is dependent/maxA in bed mobility. Patient can benefit from PT services to increase his muscle strength and balance to improve his functional mobility and gait. Addendum: 04/05/19 at 1615 by KENYETTA GONZALES PT Amended: Links added.
--- NOTE | 2019-04-05 17:15 | Progress Note ---
DATE: 04/05/2019 SUBJECTIVE: This is a 73-year-old male with generalized weakness. This patient is confused, disorganized. His mood is labile. Currently no logical plan for his own self-care. He has got feelings of helplessness, hopelessness, low energy, poor appetite, loss of interest in activity. The patient is very confused, disorganized, and altered mental status. That is why, his attending has requested daily psychiatric consultation for this patient. DIAGNOSIS: Major depressive disorder, mild, recurrent with psychotic features, rule out dementia with psychosis. PLAN: Continue treatment with Zoloft 25 mg a day and Namenda 5 twice a day. 20 minutes of cognitive behavioral therapy to help him identify his automatic negative thoughts and help him convert his negative thoughts to more positive thoughts to reduce depression, anxiety, mood lability. Cherise Palma M.D. DR: MANDI JOB#: [id number] CC:
--- NOTE | 2019-04-05 19:51 | NUR ---
HAND-OFF: Report given to BLANCA Can. Patient in supine position, sleeping, respirations at 16 breaths per minute, bed in lowest position, call light within reach, running fluids into patent right forearm 20 gauge, in no apparent distress, no SOB, no c/o pain.
--- NOTE | 2019-04-05 19:52 | NUR ---
NURSE NOTES: Got report from David RN. Pt in stable condition. Denies any pain. No s/s of distress or discomfort noted. Pt resting in bed comfortably. Bed in low and locked position, call light within reach, bedside table within reach. Continue to monitor.
[2019-04-05 20:00] VITALS: BP 105/58
[2019-04-05] MEDS: cefTRIAXone 1 GM in D5W 55 ML IVPB SCH (20:08)
[2019-04-06] VITALS (64 sets, daily range): BP systolic 62–134; BP diastolic 26–99
--- NOTE | 2019-04-06 00:30 | Consultation ---
DATE OF CONSULTATION: 04/05/2019 PSYCHOTHERAPY CONSULTATION PROGRESS NOTE CONSULTING PHYSICIAN: Maggie Guzman PsyD. TREATING ATTENDING: Sawyer Toussaint D.O. HISTORY OF PRESENT ILLNESS: This is a 73-year-old male patient who was admitted to the hospital for weakness and dehydration. The patient was also confused in the past. For these reasons, he was referred for psychotherapeutic services. When I assessed the patient, the patient is awake. He is disorganized and confused. The patient has had a difficult time . The patient does not know why he was brought into the hospital. He feels very . He states that he feels lonely and that is the reason he feels depressed. However, he denies suicidal or homicidal thoughts of ideation. Denies any auditory or visual hallucinations. The patient is feeling weak and helpless. The patient states that he lives by himself at home. He denies suicidal or homicidal thoughts of ideation. Denies auditory or visual hallucinations. PAST MEDICAL HISTORY: Includes a history of prostate cancer. ALLERGIES: No known drug allergies. SUBSTANCE ABUSE HISTORY: There is no indication of alcohol use or illicit substance use. PSYCHIATRIC HISTORY: The patient does have a history of confusion. SOCIAL HISTORY: This is a 73-year-old male patient nursing facility. Financially supported by [employer]. MENTAL STATUS EXAMINATION: The patient is alert and oriented to person and place. Mood is . Affect is congruent. Thought process, disorganized. Thought content, the patient has poor attention and concentration. Poor insight, judgment, and impulse control. DIAGNOSES: 1. Major depressive disorder, moderate, recurrent without psychotic features. 2. Prostate cancer, anemia, UTI, dehydration. 3. Psychosocial stressors are moderate. ASSESSMENT: The patient's daughter wants to transfer hospital for continuation of care and treatment. The patient is currently depressed. I provided him with: 1. Reality orientation which is focussed on improving cognitive level of function. He is oriented to person, place, time, and situation. 2. Provided the patient with supportive psychotherapy, encouraging him to process his thoughts and feelings utilizing positive communication skills encouraging to participate in treatment as well as medication regimen. 3. Since the patient does have the patient is confused and depressed. PLAN: To maintain medication compliance with positive coping skills and stabilizing the thoughts and behavior. Psychotherapy was provided to this patient is 45 minutes. This clinician has reviewed the patient's chart and discussed the treatment with treatment team. Maggie Guzman PsyD. DR: ONUR JOB#: [id number] CC:
[2019-04-06] MEDS: D5W w/KCl 20mEq 1,000 ML IV SCH ×3 (02:41→20:55)
[2019-04-06 07:04] LABS: ANION GAP 5 mmol/L (5-15); BLOOD UREA NITROGEN 24 mg/dL (7-18); CALCIUM 12.5 MG/DL (8.5-10.1); CARBON DIOXIDE 31 MMOL/L (21-32); CHLORIDE 116 MMOL/L (98-107); CREATININE 1.5 MG/DL (0.55-1.30); POTASSIUM 3.8 MMOL/L (3.5-5.1); SODIUM 152 MMOL/L (136-145)
--- NOTE | 2019-04-06 07:07 | NUR ---
NURSE NOTES: Pt asystole on the monitor. [facility] called. Per protocol pt intubated and transferred to ICU. Addendum: 04/06/19 at 0835 by Juan José Troy RN Report given to Kayli RIOS in ICU
[2019-04-06 07:08] LABS: BASOPHILS % (AUTO) 0.5 % (0.0-2.0); EOSINOPHILS % (AUTO) 1.8 % (0.0-3.0); HEMATOCRIT 26.1 % (42.0-52.0); HEMOGLOBIN 8.8 G/DL (14.2-18.0); LYMPHOCYTES % (AUTO) 10.4 % (20.0-45.0); MEAN CORPUSCULAR VOLUME 84 FL (80-99); MONOCYTES % (AUTO) 7.3 % (1.0-10.0); PLATELET COUNT 239 K/UL (150-450); RED BLOOD COUNT 3.12 M/UL (4.70-6.10); RED CELL DISTRIBUTION WIDTH 16.3 % (11.6-14.8); WHITE BLOOD COUNT 9.7 K/UL (4.8-10.8)
--- NOTE | 2019-04-06 07:20 | NUR ---
NURSE NOTES: Responded to code blue at 0704. Patient asystolic on the statistics teacher. CPR started per ACLS guidelines. Patient ROSC at 0713. Patient orally intubated with 7.5cm ET tube with 24 cm at the lip line. Stat chest x-ray ordered. Patient has right nares NGT at 60cm verified with auscultation and aspiration. Awaiting chest x-ray. Patient showing Sinus tachycardia on the statistics teacher with rate of 152 beats per minute. Patient unconscious at this time. Patient BP low at 78/57. Dr Cortez aware. Awaiting new orders. patient has guerra with blood tinged urine noted and bloody residue noted at Guerra insertion site on tip of penis. Patient has right forearm 20 gauge peripheral IV. Will inquire with MD regarding central line for patient for vasopressors. Patient running D5W with 20mEq KCL at 75mL/hr at this time. Awaiting chest and abdominal x-ray. Will call and inform patient family and primary MD regarding condition and transfer at this time. Will continue to monitor.
--- NOTE | 2019-04-06 07:22 | Cardiac Electrophysiology PN ---
Subjective Subjective Seen and examined while undergoing CPR for asystole on P2. Intubated and resuscitated. Transfer to ICU. ER [id number] Objective Last 24 Hour Vital Signs Date Time Temp Pulse Resp B/P (MAP) Pulse Ox O2 Delivery O2 Flow Rate FiO2 04/06/19 04:00 95 04/06/19 04:00 110/70 04/06/19 04:00 98.0 94 20 114/64 (81) 95 04/06/19 00:00 97.7 98 20 120/72 (88) 93 04/06/19 00:00 97 04/05/19 21:35 105/58 04/05/19 21:00 Room Air 04/05/19 20:00 97.5 93 20 105/58 (74) 93 04/05/19 16:59 143/83 04/05/19 16:00 103 04/05/19 16:00 97.5 96 18 143/83 (103) 90 04/05/19 12:00 97.7 106 19 148/85 (106) 90 04/05/19 12:00 100 04/05/19 10:03 158/103 04/05/19 09:00 Room Air 04/05/19 08:00 97.5 107 21 158/103 (121) 90 04/05/19 08:00 107 Intake and Output 04/05/19 04/06/19 19:00 07:00 Intake Total 1475 ml Output Total 600 ml Balance 875 ml Intake Oral 300 ml IV Total 1175 ml Output Urine Total 600 ml # Bowel Movements 1 1 Laboratory Tests Test 04/06/19 06:05 White Blood Count 9.7 K/UL (4.8-10.8) Red Blood Count 3.12 M/UL (4.70-6.10) L Hemoglobin 8.8 G/DL (14.2-18.0) L Hematocrit 26.1 % (42.0-52.0) L Mean Corpuscular Volume 84 FL (80-99) Mean Corpuscular Hemoglobin 28.1 PG (27.0-31.0) Mean Corpuscular Hemoglobin Concent 33.6 G/DL (32.0-36.0) Red Cell Distribution Width 16.3 % (11.6-14.8) H Platelet Count 239 K/UL (150-450) Mean Platelet Volume 5.0 FL (6.5-10.1) L Neutrophils (%) (Auto) 80.0 % (45.0-75.0) H Lymphocytes (%) (Auto) 10.4 % (20.0-45.0) L Monocytes (%) (Auto) 7.3 % (1.0-10.0) Eosinophils (%) (Auto) 1.8 % (0.0-3.0) Basophils (%) (Auto) 0.5 % (0.0-2.0) Sodium Level 152 MMOL/L (136-145) H Potassium Level 3.8 MMOL/L (3.5-5.1) # Chloride Level 116 MMOL/L (98-107) H Carbon Dioxide Level 31 MMOL/L (21-32) Anion Gap 5 mmol/L (5-15) Blood Urea Nitrogen 24 mg/dL (7-18) H Creatinine 1.5 MG/DL (0.55-1.30) H Estimat Glomerular Filtration Rate mL/min (>60) Glucose Level 140 MG/DL (74-106) H Calcium Level 12.5 MG/DL (8.5-10.1) H Microbiology Date/Time Source Procedure Growth Status 04/03/19 17:30 Blood Blood Culture - Preliminary NO GROWTH AFTER 48 HOURS Resulted 04/03/19 17:15 Blood Blood Culture - Preliminary NO GROWTH AFTER 48 HOURS Resulted 04/03/19 17:00 Urine,Clean Catch Urine Culture - Final Escherichia Coli Complete Nain Cortez MD Apr 06, 2019 07:22
[2019-04-06] MEDS ORDERED: DOPamine 400mg/250ml 250 ML IV SCH (07:30)
--- NOTE | 2019-04-06 07:53 | NUR ---
NURSE NOTES: left telephone message for Dr Toussaint regarding patient condition during and post code. Awaiting call back.
--- NOTE | 2019-04-06 08:01 | Nephrology Progress Note ---
Assessment/Plan Status: unchanged Assessment/Plan: A/P 1. LETA. secondary to dehydration from hypercalcemia. - Cr stable at 1.5 2. Prostate cancer with tremendously elevated PSA 800 Defer to Hematology/Oncology. Family to decide on Hospice today when son arrives 3. Hypokalemia. corrected 4. Sepsis and UTI per Infectious Disease. - IV pressors and Abx 5. Hypernatremia secondary to dehydration. D5W 6. S/P Cardiac Arrest- intubated Subjective Date patient seen: Apr 06, 2019 Time patient seen: 07:57 ROS Limited/Unobtainable: No Allergies: Coded Allergies: No Known Allergies (Unverified , 04/03/19) Subjective Patient status post cardiac arrest, intubated on vent Objective Last 24 Hour Vital Signs Date Time Temp Pulse Resp B/P (MAP) Pulse Ox O2 Delivery O2 Flow Rate FiO2 04/06/19 07:33 144 20 100 04/06/19 04:00 95 04/06/19 04:00 110/70 04/06/19 04:00 98.0 94 20 114/64 (81) 95 04/06/19 00:00 97.7 98 20 120/72 (88) 93 04/06/19 00:00 97 04/05/19 21:35 105/58 04/05/19 21:00 Room Air 04/05/19 20:00 97.5 93 20 105/58 (74) 93 04/05/19 16:59 143/83 04/05/19 16:00 103 04/05/19 16:00 97.5 96 18 143/83 (103) 90 04/05/19 12:00 97.7 106 19 148/85 (106) 90 04/05/19 12:00 100 04/05/19 10:03 158/103 04/05/19 09:00 Room Air 04/05/19 08:00 97.5 107 21 158/103 (121) 90 04/05/19 08:00 107 Intake and Output 04/05/19 04/06/19 19:00 07:00 Intake Total 1475 ml Output Total 600 ml Balance 875 ml Intake Oral 300 ml IV Total 1175 ml Output Urine Total 600 ml # Bowel Movements 1 1 Laboratory Tests 04/06/19 06:05: White Blood Count 9.7, Red Blood Count 3.12L, Hemoglobin 8.8L, Hematocrit 26.1L , Mean Corpuscular Volume 84, Mean Corpuscular Hemoglobin 28.1, Mean Corpuscular Hemoglobin Concent 33.6, Red Cell Distribution Width 16.3H, Platelet Count 239, Mean Platelet Volume 5.0L, Neutrophils (%) (Auto) 80.0H, Lymphocytes (%) (Auto) 10.4L, Monocytes (%) (Auto) 7.3, Eosinophils (%) (Auto) 1.8, Basophils (%) (Auto) 0.5, Sodium Level 152H, Potassium Level 3.8#, Chloride Level 116H, Carbon Dioxide Level 31, Anion Gap 5, Blood Urea Nitrogen 24H, Creatinine 1.5H, Estimat Glomerular Filtration Rate , Glucose Level 140H, Calcium Level 12.5H Height (Feet): 5 Height (Inches): 7.00 Weight (Pounds): 100 General Appearance: moderate distress EENT: normal ENT inspection Neck: normal alignment, supple Cardiovascular: normal rate, regular rhythm Respiratory/Chest: lungs clear, rhonchi - bilaterally Abdomen: non tender, soft Edema: no edema noted Arm (L), no edema noted Arm (R), no edema noted Leg (L), no edema noted Leg (R), no edema noted Pedal (L), no edema noted Pedal (R), no edema noted Generalized Carlos White MD Apr 06, 2019 08:01
--- NOTE | 2019-04-06 08:05 | NUR ---
NURSE NOTES: left telephone message for Amy De Leno, patient's daughter notifying her that patient has been transferred to ICU. Awaiting call back to fully inform her regarding patient condition upon transfer.
--- NOTE | 2019-04-06 08:10 | NUR ---
NURSE NOTES: Asked Dr White in person and received order for central line. Order placed by .
--- NOTE | 2019-04-06 08:27 | NUR ---
NURSE NOTES: Received call back from Hector De Leon, patient's son. Notified him that patient had cardiac arrest, has been intubated, and has been moved to ICU at this time. Notified him regarding patient room number and unit phone number. He reported that he would call back.
[2019-04-06] MEDS: DOPamine 400mg/250ml 250 ML IV SCH ×2 (08:45→20:56)
[2019-04-06] MEDS: Enoxaparin 30mg Inj SUBQ SCH (09:00)
[2019-04-06] MEDS: Sertraline 50mg tab ORAL SCH (09:00)
[2019-04-06] MEDS: Memantine 5 MG TAB ORAL SCH ×2 (09:00→18:00)
--- NOTE | 2019-04-06 09:00 | Consultation ---
DATE OF CONSULTATION: 04/04/2019 NOTE: POOR AUDIO CONSULTING PHYSICIAN: Louie Luong M.D. HISTORY OF PRESENT ILLNESS: The patient is a 73-year-old male patient, came in with generalized weakness and dehydration. He has altered mental status, confusion, and disorganized thought process. He has got a decline in cognition below his baseline that is why his attending has requested consultation. He appears generalized weakness. He states he has adenocarcinoma of the prostate. He has altered mental status, confusion decline in cognition below baseline. That is why his attending has requested a daily psychiatric consultation. I saw and assessed this patient at bedside, very confused. He does endorse depression, but he does also admit to be confused weight loss, in the hospital. He is only oriented x1. So, his cognition has declined significantly below his baseline. MEDICAL HISTORY: He has prostate cancer and generalized weakness. ALLERGIES: He has no known drug allergy at this time. PSYCHOTROPIC MEDICATIONS ON ADMISSION: The patient is currently not on any psychotropic medications at this time. SUBSTANCE ABUSE HISTORY: Denies. PAIN ASSESSMENT: 0/10. DEVELOPMENTAL PROBLEMS: Denies. FAMILY PSYCHIATRIC HISTORY: Denied. SOCIAL HISTORY: This patient currently lives at home. He is financially supported by [employer] and Medicare. SUBSTANCE ABUSE HISTORY: Denies drug or alcohol use. PSYCHIATRIC HISTORY: the patient is a poor historian. STRENGTHS: He is motivated to get better and has a place to live. WEAKNESSES: He is impulsive, minimal support system. MEDICAL EXAMINATION: This is a 73-year-old male. Appearance is disheveled. Attitude, irritable and agitated. Affect is flat. Intellect is poor because he does not know current events. He does not know the last four presidents. Mood, depressed and anxious. Motor activity, psychomotor agitation. Attention span is poor because he cannot do serial 7's or spell world backwards. Orientation x1, only to person, but not to place, time, or situation. Speech is slurred and nonsensical. Thought process, disorganized and illogical. Thought content, he has auditory hallucinations and paranoid delusions. Perception is poor because he has perceptual disturbances, auditory hallucinations, and paranoid delusions. Abstract reasoning is poor because he does not understand proverbs, only has concrete thinking. Insight is poor because he does not recognize having psych disorder or medical condition . Judgment is poor because he cannot make medical decisions for himself. Short-term memory is 0/3 word recall with poor short-term memory. Long-term memory is poor. He cannot recall long-term events in his life such as high school that he went to. Gait is normal. No abnormal movements . DIAGNOSES: 1. Major depressive disorder, severe, recurrent with psychotic features, rule out dementia with psychosis. 2. There is no secondary. 3. Medial problems - weakness, urinary tract infection, dehydration, and status post prostate cancer. 4. Psychosocial stressors financial. 5. Functional impairment is severe. PLAN: Start the patient on Namenda 5 mg twice a day to prevent any further decline in his cognition. I will also treat the patient with the medication regimen of Zoloft at a dose of 25 mg daily. He does endorse some depression and anxiety. Twenty minutes of cognitive behavioral therapy and insight-oriented psychotherapy provided to help him recognize his condition, mental and physical so he will have better impulse control and understanding of it. Twenty minutes of cognitive behavioral therapy to help him identify his automatic negative thoughts help him convert his negative thoughts to more positive thoughts to reduce depression, anxiety, and mood lability. Cherise Palma M.D. DR: Elan JOB#: [id number] CC:
--- NOTE | 2019-04-06 09:20 | NUR ---
RADIOLOGY DEPT., CHEST AND ABDOMEN X-RAYS COMPLETED FOR TUBE(S) PLCMT.-P.DYE
--- NOTE | 2019-04-06 09:23 | Diagnostic Imaging Report ---
Indication: Intubation Comparison: None A single view chest radiograph was obtained. Findings: Endotracheal tube is about 6 cm above the yari within the mid trachea in satisfactory position. Lungs are hyperexpanded. Defibrillator pads and leads obscure detail to some extent. Heart size is normal. No pneumothorax seen. No definite infiltrate identified. Central vasculature appears prominent. There is no overt CHF. No pleural effusion seen. Nasogastric tube is present. The tip projects over the stomach. The proximal port is probably just above the EG junction. IMPRESSION: Endotracheal tube in good position. Nasogastric tube should be advanced further by 5 or more centimeters. Prominent central/hilar vessels without overt CHF.
--- NOTE | 2019-04-06 09:24 | Diagnostic Imaging Report ---
Indication: NG tube Comparison: None Single view of the abdomen obtained Findings: The tip is within the stomach. The proximal port of the NG tube is above the EG junction. The tube should be advanced at least 5 cm. Bowel gas pattern appears nonspecific. IMPRESSION: Nasogastric tube should be advanced further
--- NOTE | 2019-04-06 09:30 | Hematology/Onc Progress Note ---
Assessment/Plan Assessment/Plan # Prostate cancer stage IV with psa >700, cr is worse, hydronephrosis noted, seen by renal, Dr. White. --> i did received records from [facility]. has regional lymphadenopathy, s/p transrectal biopsy with Gleasons 5+5 (2010) in all cores, apparently has had a 3 year course of androgen deprivation from 2011- 2014.also status post RADIATION to the prostate, then lost to followup. Following surviellance psa 0.45-->65, in 10/2016, and up to 127 in 12/2016, Ct scan showed recurrence of disease with lad but no bony mets, started on lupron 01/2017, psa fell yo 73-->46, has been sarted on zytiga + prednisone, and now psa progression on zytiga, he started xtandi in 01/2019 Psa 87. He did not go through urethral stenting, he has deferred treatment with chemo. --> He is a very poor historian, I attempted to contact his but no answer. --> imaging has been noted --> as per urology, consider lupron v chemo --> have called , no answer, trans to [facility]? --> psa 737 # Hypercalcemia -- now acutely worse --> trend Ca++ 8.1-->13-->12 --> ivf has been started --> as per nephrology --> consider pamidronate v calcitonin v other agent # Episode of generalized weakness --> on ivf --> pt as needed # Hypokalemia --> replete prn # Dehydration --> on ivf # Atrophic changes without evident intracranial hemorrhage. --> as per neuro, remains confused # Respiratory failure s/p vent --> s/p vent intubated on 04/06 # Hypernatremia as well as low BUN. --> on ivf # Poor prognosis Appreciate consultation and Jemal Rn Subjective Constitutional: Denies: no symptoms, chills, fever, malaise, weakness, other HEENT: Denies: no symptoms, eye pain, blurred vision, tearing, double vision, ear pain, ear discharge, nose pain, nose congestion, throat pain, throat swelling, mouth pain, mouth swelling, other Cardiovascular: Denies: no symptoms, chest pain, edema, irregular heart rate, lightheadedness, palpitations, syncope, other Respiratory: Denies: no symptoms, cough, shortness of breath, SOB with excertion, SOB at rest, sputum, wheezing, other Genitourinary: Denies: no symptoms, burning, discharge, frequency, flank pain, hematuria, incontinence, pain, urgency, other Neurologic/Psychiatric: Denies: no symptoms, anxiety, depressed, emotional problems, headache, numbness, paresthesia, pre-existing deficit, seizure, tingling, tremors, weakness, other Endocrine: Denies: no symptoms, excessive sweating, flushing, intolerance to cold, intolerance to heat, increased hunger, increased thirst, increased urine, unexplained weight gain, unexplained weight loss, other Hematologic/Lymphatic: Denies: no symptoms, anemia, easy bleeding, easy bruising, adenopathy, other Allergies: Coded Allergies: No Known Allergies (Unverified , 04/03/19) Subjective 2/3: no events, apparently intubated today and transferred to the icu, will dw family Objective Objective Current Medications Medications (Trade) Dose Ordered Sig/[place] Route PRN Reason Start Time Stop Time Status Last Admin Dose Admin Albuterol/ Ipratropium (Albuterol/ Ipratropium) 3 ml EVERY 6 HOURS PRN HHN Shortness of Breath 04/06/19 12:00 04/10/19 06:29 Calcitonin [place] (Miacalcin) 1 sprays BID NASAL 04/06/19 09:00 05/04/19 09:29 Ceftriaxone Sodium 1 gm/ Dextrose 55 ml @ 110 mls/hr Q24H IVPB 04/06/19 20:00 04/11/19 19:59 Dextrose/ Electrolytes 1,000 ml @ 75 mls/hr [id number] IV 04/06/19 08:15 05/05/19 12:59 04/06/19 08:44 Dopamine HCl/ Dextrose 250 ml @ 0 mls/hr Q24H IV 04/06/19 08:15 05/06/19 08:14 04/06/19 08:45 Enoxaparin Sodium (Lovenox) 30 mg DAILY SUBQ 04/06/19 09:00 05/04/19 08:59 Memantine (Namenda) 5 mg BID ORAL 04/06/19 09:00 05/04/19 17:59 Sertraline HCl (Zoloft) 25 mg DAILY ORAL 04/06/19 09:00 05/05/19 08:59 Last 24 Hour Vital Signs Date Time Temp Pulse Resp B/P (MAP) Pulse Ox O2 Delivery O2 Flow Rate FiO2 04/06/19 08:45 67/55 04/06/19 07:33 144 20 100 04/06/19 04:00 95 04/06/19 04:00 110/70 04/06/19 04:00 98.0 94 20 114/64 (81) 95 04/06/19 00:00 97.7 98 20 120/72 (88) 93 04/06/19 00:00 97 04/05/19 21:35 105/58 04/05/19 21:00 Room Air 04/05/19 20:00 97.5 93 20 105/58 (74) 93 04/05/19 16:59 143/83 04/05/19 16:00 103 04/05/19 16:00 97.5 96 18 143/83 (103) 90 04/05/19 12:00 97.7 106 19 148/85 (106) 90 04/05/19 12:00 100 04/05/19 10:03 158/103 04/05/19 09:00 Room Air 04/05/19 08:00 97.5 107 21 158/103 (121) 90 04/05/19 08:00 107 04/05/19 04:00 98.4 62 20 142/90 (107) 95 04/05/19 04:00 106 04/05/19 00:00 98.5 100 18 146/91 (109) 95 04/05/19 00:00 101 04/04/19 21:00 Room Air 04/04/19 20:00 106 04/04/19 20:00 97.5 89 18 150/86 (107) 95 04/04/19 16:15 109 04/04/19 16:00 97.5 120 20 151/89 (109) 93 04/04/19 12:00 97.9 114 18 126/89 (101) 95 04/04/19 11:46 117 Intake and Output 04/05/19 04/06/19 19:00 07:00 Intake Total 1475 ml Output Total 600 ml Balance 875 ml Intake Oral 300 ml IV Total 1175 ml Output Urine Total 600 ml # Bowel Movements 1 1 Labs Test 04/03/19 17:00 04/03/19 17:30 04/04/19 06:20 04/05/19 07:20 Urine Color Brown Urine Appearance Turbid Urine pH 5 (4.5-8.0) Urine Specific [place] 1.020 (1.005-1.035) Urine Protein 4+ (NEGATIVE) Urine Glucose (UA) Negative (NEGATIVE) Urine Ketones 3+ (NEGATIVE) Urine Blood 5+ (NEGATIVE) Urine Nitrite Positive (NEGATIVE) Urine Bilirubin 1+ (NEGATIVE) Urine Ictotest Negative (NEGATIVE) Urine Urobilinogen 1 MG/DL (0.0-1.0) Urine Leukocyte Esterase 3+ (NEGATIVE) Urine RBC Tntc /HPF (0 - 0) Urine WBC 20-30 /HPF (0 - 0) Urine Squamous Epithelial Cells Occasional /LPF Urine Bacteria Many /HPF (NONE) White Blood Count 10.4 K/UL (4.8-10.8) 11.4 K/UL (4.8-10.8) 9.5 K/UL (4.8-10.8) Red Blood Count 3.54 M/UL (4.70-6.10) 3.20 M/UL (4.70-6.10) 3.54 M/UL (4.70-6.10) Hemoglobin 9.8 G/DL (14.2-18.0) 9.2 G/DL (14.2-18.0) 10.1 G/DL (14.2-18.0) Hematocrit 29.7 % (42.0-52.0) 25.9 % (42.0-52.0) 29.0 % (42.0-52.0) Mean Corpuscular Volume 84 FL (80-99) 81 FL (80-99) 82 FL (80-99) Mean Corpuscular Hemoglobin 27.6 PG (27.0-31.0) 28.8 PG (27.0-31.0) 28.5 PG (27.0-31.0) Mean Corpuscular Hemoglobin Concent 32.9 G/DL (32.0-36.0) 35.5 G/DL (32.0-36.0) 34.7 G/DL (32.0-36.0) Red Cell Distribution Width 16.6 % (11.6-14.8) 15.7 % (11.6-14.8) 15.9 % (11.6-14.8) Platelet Count 241 K/UL (150-450) 252 K/UL (150-450) 238 K/UL (150-450) Mean Platelet Volume 5.6 FL (6.5-10.1) 5.9 FL (6.5-10.1) 5.2 FL (6.5-10.1) Neutrophils (%) (Auto) % (45.0-75.0) % (45.0-75.0) 84.4 % (45.0-75.0) Lymphocytes (%) (Auto) % (20.0-45.0) % (20.0-45.0) 8.6 % (20.0-45.0) Monocytes (%) (Auto) % (1.0-10.0) % (1.0-10.0) 5.4 % (1.0-10.0) Eosinophils (%) (Auto) % (0.0-3.0) % (0.0-3.0) 1.3 % (0.0-3.0) Basophils (%) (Auto) % (0.0-2.0) % (0.0-2.0) 0.4 % (0.0-2.0) Differential Total Cells Counted 100 100 Neutrophils % (Manual) 85 % (45-75) 86 % (45-75) Lymphocytes % (Manual) 8 % (20-45) 7 % (20-45) Monocytes % (Manual) 6 % (1-10) 5 % (1-10) Eosinophils % (Manual) 1 % (0-3) 1 % (0-3) Basophils % (Manual) 0 % (0-2) 1 % (0-2) Band Neutrophils 0 % (0-8) 0 % (0-8) Platelet Estimate Adequate Adequate Platelet Morphology Normal Normal Hypochromasia 1+ 2+ Anisocytosis 1+ 1+ Sodium Level 148 MMOL/L (136-145) 148 MMOL/L (136-145) 152 MMOL/L (136-145) Potassium Level 3.7 MMOL/L (3.5-5.1) 2.6 MMOL/L (3.5-5.1) 2.4 MMOL/L (3.5-5.1) Chloride Level 110 MMOL/L (98-107) 108 MMOL/L (98-107) 113 MMOL/L (98-107) Carbon Dioxide Level 26 MMOL/L (21-32) 24 MMOL/L (21-32) 31 MMOL/L (21-32) Anion Gap 13 mmol/L (5-15) 16 mmol/L (5-15) 8 mmol/L (5-15) Blood Urea Nitrogen 4 mg/dL (7-18) 36 mg/dL (7-18) 28 mg/dL (7-18) Creatinine 0.7 MG/DL (0.55-1.30) 1.9 MG/DL (0.55-1.30) 1.6 MG/DL (0.55-1.30) Estimat Glomerular Filtration Rate mL/min (>60) mL/min (>60) mL/min (>60) Glucose Level 100 MG/DL (74-106) 97 MG/DL (74-106) 109 MG/DL (74-106) Calcium Level 8.1 MG/DL (8.5-10.1) 13.4 MG/DL (8.5-10.1) 12.9 MG/DL (8.5-10.1) Total Bilirubin 0.1 MG/DL (0.2-1.0) Aspartate Amino Transf (AST/SGOT) 32 U/L (15-37) Alanine Aminotransferase (ALT/SGPT) 32 U/L (12-78) Alkaline Phosphatase 91 U/L (46-116) Total Creatine Kinase 208 U/L (26-308) Troponin I 0.028 ng/mL (0.000-0.056) Pro-B-Type Natriuretic Peptide 32 pg/mL (0-125) Total Protein 8.0 G/DL (6.4-8.2) Albumin 4.0 G/DL (3.4-5.0) Globulin 4.0 g/dL Albumin/Globulin Ratio 1.0 (1.0-2.7) Thyroid Stimulating Hormone (TSH) 1.095 uiU/mL (0.358-3.740) Prostate Specific Antigen 753.77 ng/mL (0.13-4.0) Test 2/3/20 06:05 White Blood Count 9.7 K/UL (4.8-10.8) Red Blood Count 3.12 M/UL (4.70-6.10) Hemoglobin 8.8 G/DL (14.2-18.0) Hematocrit 26.1 % (42.0-52.0) Mean Corpuscular Volume 84 FL (80-99) Mean Corpuscular Hemoglobin 28.1 PG (27.0-31.0) Mean Corpuscular Hemoglobin Concent 33.6 G/DL (32.0-36.0) Red Cell Distribution Width 16.3 % (11.6-14.8) Platelet Count 239 K/UL (150-450) Mean Platelet Volume 5.0 FL (6.5-10.1) Neutrophils (%) (Auto) 80.0 % (45.0-75.0) Lymphocytes (%) (Auto) 10.4 % (20.0-45.0) Monocytes (%) (Auto) 7.3 % (1.0-10.0) Eosinophils (%) (Auto) 1.8 % (0.0-3.0) Basophils (%) (Auto) 0.5 % (0.0-2.0) Sodium Level 152 MMOL/L (136-145) Potassium Level 3.8 MMOL/L (3.5-5.1) Chloride Level 116 MMOL/L (98-107) Carbon Dioxide Level 31 MMOL/L (21-32) Anion Gap 5 mmol/L (5-15) Blood Urea Nitrogen 24 mg/dL (7-18) Creatinine 1.5 MG/DL (0.55-1.30) Estimat Glomerular Filtration Rate mL/min (>60) Glucose Level 140 MG/DL (74-106) Calcium Level 12.5 MG/DL (8.5-10.1) Troponin I 0.030 ng/mL (0.000-0.056) Height (Feet): 5 Height (Inches): 7.00 Weight (Pounds): 100 Objective General: normal inspection, alert, Chronically Ill Respiratory: s/p vent++ Cardiovascular: regular rate, rhythm, no edema Gastrointestinal: normal inspection, normal bowel sounds Genitourinary: no CVA tenderness Mus: normal inspection, back normal, normal range of motion Neurologic: alert, motor strength/tone normal, oriented + confused Psychiatric: normal inspection, judgement/insight normal Skin: no rash Andreas Monroy MD Apr 06, 2019 09:30
--- NOTE | 2019-04-06 09:46 | NUR ---
NURSE NOTES: Spoke with Dr Monroy on the phone. Notified him regarding patient current conditiom. Addendum: 04/06/19 at 0950 by Kayli Boyce RN Was notified that he would call the daughter, Amy De Leon. Phone number given.
--- NOTE | 2019-04-06 09:50 | NUR ---
NURSE NOTES: Advanced NGT >5cm (10cm total) per radiologist recommendation. repeat stat KUB ordered.
--- NOTE | 2019-04-06 09:54 | General Progress Note ---
Assessment/Plan Problem List: (1) UTI (urinary tract infection) ICD Codes: N39.0 - Urinary tract infection, site not specified SNOMED: 75674161 (2) Weak ICD Codes: R53.1 - Weakness SNOMED: 81879660 (3) Anemia ICD Codes: D64.9 - Anemia, unspecified SNOMED: 085187029 (4) Dehydration ICD Codes: E86.0 - Dehydration SNOMED: 02175204, 81639571 (5) Episode of generalized weakness ICD Codes: R53.1 - Weakness SNOMED: 57884851 (6) Stage III adenocarcinoma of prostate ICD Codes: C61 - Malignant neoplasm of prostate SNOMED: 465656195, 67219688 Status: unchanged Assessment/Plan: pe diet abx iv fluid heme eval cbc bmp am Subjective Constitutional: Reports: weakness Allergies: Coded Allergies: No Known Allergies (Unverified , 04/03/19) All Systems: reviewed and negative except above Subjective intubated sedated in icu Objective Last 24 Hour Vital Signs Date Time Temp Pulse Resp B/P (MAP) Pulse Ox O2 Delivery O2 Flow Rate FiO2 04/06/19 09:33 89 15 50 04/06/19 09:30 88 20 88/60 (69) 100 04/06/19 09:00 91 20 66/49 (55) 100 04/06/19 08:45 67/55 04/06/19 08:30 98 20 66/49 (55) 100 04/06/19 08:00 109 20 67/48 (54) 100 04/06/19 08:00 109 04/06/19 07:33 144 20 100 04/06/19 07:30 118 20 83/59 (67) 100 04/06/19 04:00 95 04/06/19 04:00 110/70 04/06/19 04:00 98.0 94 20 114/64 (81) 95 04/06/19 00:00 97.7 98 20 120/72 (88) 93 04/06/19 00:00 97 04/05/19 21:35 105/58 04/05/19 21:00 Room Air 04/05/19 20:00 97.5 93 20 105/58 (74) 93 04/05/19 16:59 143/83 04/05/19 16:00 103 04/05/19 16:00 97.5 96 18 143/83 (103) 90 04/05/19 12:00 97.7 106 19 148/85 (106) 90 04/05/19 12:00 100 04/05/19 10:03 158/103 Intake and Output 04/05/19 04/06/19 19:00 07:00 Intake Total 1475 ml Output Total 600 ml Balance 875 ml Intake Oral 300 ml IV Total 1175 ml Output Urine Total 600 ml # Bowel Movements 1 1 Laboratory Tests 04/06/19 06:05: White Blood Count 9.7, Red Blood Count 3.12L, Hemoglobin 8.8L, Hematocrit 26.1L , Mean Corpuscular Volume 84, Mean Corpuscular Hemoglobin 28.1, Mean Corpuscular Hemoglobin Concent 33.6, Red Cell Distribution Width 16.3H, Platelet Count 239, Mean Platelet Volume 5.0L, Neutrophils (%) (Auto) 80.0H, Lymphocytes (%) (Auto) 10.4L, Monocytes (%) (Auto) 7.3, Eosinophils (%) (Auto) 1.8, Basophils (%) (Auto) 0.5, Sodium Level 152H, Potassium Level 3.8#, Chloride Level 116H, Carbon Dioxide Level 31, Anion Gap 5, Blood Urea Nitrogen 24H, Creatinine 1.5H, Estimat Glomerular Filtration Rate , Glucose Level 140H, Calcium Level 12.5H, Troponin I 0.030 Height (Feet): 5 Height (Inches): 7.00 Weight (Pounds): 100 General Appearance: lethargic EENT: normal ENT inspection Neck: normal alignment Cardiovascular: normal peripheral pulses, normal rate, regular rhythm Respiratory/Chest: chest wall non-tender, lungs clear, normal breath sounds Abdomen: normal bowel sounds, non tender, soft Extremities: normal inspection Edema: no edema noted Arm (L), no edema noted Arm (R), no edema noted Leg (L), no edema noted Leg (R), no edema noted Pedal (L), no edema noted Pedal (R), no edema noted Generalized Neurologic: responsive, motor weakness Skin: normal pigmentation, warm/dry Sawyer Toussaint DO Apr 06, 2019 09:54
--- NOTE | 2019-04-06 10:03 | Emergency Room Report ---
History of Present Illness General Chief Complaint: Generalized Weakness Source: Patient, Friend Present Illness Allergies: Coded Allergies: No Known Allergies (Unverified , 04/03/19) Nursing Documentation-[facility] Past Medical History: No History, Except For Hx Cardiac Problems: Yes Hx Hypertension: Yes Hx COPD: Yes Hx Cancer: Yes - PROSTATE CA Hx Gastrointestinal Problems: No Hx Neurological Problems: No Physical Exam Vital Signs Date Time Temp Pulse Resp B/P (MAP) Pulse Ox O2 Delivery O2 Flow Rate FiO2 04/03/19 16:15 96.4 83 16 119/81 (94) 96 Room Air 04/06/19 07:33 100 Procedures CPR/Code Blue CPR/Code Blue Narrative I was called upstairs to a CODE BLUE upon arrival the patient is in asystole No respirations patient's pupils are 3 mm and sluggishly reactive Patient required airway intubation refer to the note for that specific patient also did have copious amounts of oral mucosa At the airway during the intubation Code progressed patient received ACLS intervention refer to the sheet for full specifics patient did receive sodium bicarbonate and epinephrine We did obtain palpable pulses at this time 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 And care handed back to the primary physician's Intubation Intubation : Consent: Emergent Intubation Method: orotracheal Tube Size (cm): 7.5 Breath Sounds after Intubation: equal Intubation Complications: no complications Attempts: One Patient Tolerated: Well Complications: None Medical Decision Making Diagnostic Impression: Primary Impression: Episode of generalized weakness Additional Impressions: Stage III adenocarcinoma of prostate Dehydration Chest X-Ray Diagnostic Results Chest X-Ray Diagnostic Results : Chest X-Ray Ordered: Yes # of Views/Limited/Complete: 1 View Indication: Other - Intubation EP Interpretation: Yes Interpretation: no effusion, no pneumothorax, other - ET tube appropriate mild perihilar fullness Impression: Other - ET tube appropriate position Electronically Signed by: Shay Ramirez DO Last Vital Signs Date Time Temp Pulse Resp B/P (MAP) Pulse Ox O2 Delivery O2 Flow Rate FiO2 04/06/19 09:33 89 15 50 04/06/19 09:30 88/60 (69) 100 04/06/19 04:00 98.0 04/05/19 21:00 Room Air Disposition: ADMITTED INPATIENT Condition: Stable Referrals: NOT CHOSEN IPA/MD,REFERRING (PCP) Shay Ramirez DO Apr 06, 2019 10:03
--- NOTE | 2019-04-06 10:17 | Operative Note - PDOC ---
Operative Note Operative Note Date of Operation/Procedure: Apr 06, 2019 Pre-op Diagnosis: respiratory insufficiency cardiovascular compromise s/p code ACLS resuscitation hypotension Procedure: right subclavian central venous catheter insertion Post-op Diagnosis: same as pre-op Surgeon: evaristo acevedo md Anesthesia: local Specimen: none Complications: none Condition: unstable Fluids: n/a Estimated Blood Loss: minimal Drains: none Implant(s) used?: No Indications for Procedure 73M s/p cardiovascular compromise not intubated in the ICU after resuscitation ACLS currently hypotensive on pressors. poor peripheral access and requiring fluids, pressors, and meds urgently given vitals / unstable. central line indicated and medically necessary emergently for live saving measure in patient that is full code. Description of Procedure patient placed in supine position Trendelenburg at the bedside. right chest wall prepped and draped in the standard surgical fashion. finder needle used and right subclavian vein cannulated on first stick. guide wire passed without difficulty . needle removed. skin incision made around guidewire and dilator used. triple lumen central venous catheter placed over guidewire without difficulty. guidewire removed. line sutured in place. all ports flushed and aspirated without difficulty. dressings applied. cxr ordered Evaristo Acevedo Apr 06, 2019 10:17
--- NOTE | 2019-04-06 10:26 | Consultation ---
History of Present Illness General Date patient seen: Apr 06, 2019 Chief Complaint: Generalized Weakness Present Illness HPI 73 year old male with multiple medical comorbidities including prostate cancer planned for therapy at [facility] presented after fall with generalized weakness and admitted for care and management. This morning patient had sudden cardiac arrest with asystole and was resuscitated with ACLS and now in ICU in critical condition. intubated on vent support. hypotensive on pressors. ill appearing not responsive. surgery called to evaluate and assist with care. patient seen, chart reviewed, patient examined. patient is currently hypotensive with sbp in the 60's while at bedside on pressors. central venous catheter placed emergently. see note patient unable to reply Allergies: Coded Allergies: No Known Allergies (Unverified , 04/03/19) Medication History Scheduled Amlodipine Besylate* (Amlodipine Besylate*), 5 MG ORAL DAILY, (Reported) Oxycodone Hcl Er* (Oxycontin*), 10 MG ORAL EVERY 6 HOURS, (Reported) Sulfamethoxazole/Trimethoprim Ss Tab* (Sulfamethoxazole-Tmp Ss Tablet*), 1 TAB ORAL TWICE A DAY, (Reported) Scheduled PRN Albuterol Sulfate* (Albuterol Sulfate Hhn*), 3 ML INH Q6H PRN for Shortness of Breath, (Reported) Morphine HCl (Morphine Sulfate ER), 30 MG ORAL Q12HR PRN for For Pain, (Reported ) Ondansetron Odt* (Zofran Odt*), 8 MG ORAL Q8HR PRN for Nausea & Vomiting, ( Reported) Patient History Limited by: medical condition History Provided By: Medical Record, PMD Healthcare decision maker Resuscitation status Full Code Advanced Directive on File Past Medical/Surgical History Past Medical/Surgical History: (1) Anemia (2) Weak (3) UTI (urinary tract infection) (4) Dehydration (5) Episode of generalized weakness (6) Stage III adenocarcinoma of prostate Review of Systems ROS Narrative cannot obtain given patients medical condition Physical Exam General Appearance: thin, other Lines, tubes and drains: central line HEENT: supple Neck: supple Respiratory/Chest: decreased breath sounds, on vent Cardiovascular/Chest: tachycardia Abdomen: soft, no organomegaly, no mass, distended Genitourinary/Rectal: normal rectal exam Extremities: normal inspection, slow capillary refill Skin Exam: warm/dry Neurologic: unresponsiveness Last 24 Hour Vital Signs Date Time Temp Pulse Resp B/P (MAP) Pulse Ox O2 Delivery O2 Flow Rate FiO2 04/06/19 10:00 101 14 87/59 (68) 97 04/06/19 09:33 89 15 50 04/06/19 09:30 88 20 88/60 (69) 100 04/06/19 09:00 91 20 66/49 (55) 100 04/06/19 08:45 67/55 04/06/19 08:30 98 20 66/49 (55) 100 04/06/19 08:00 109 20 67/48 (54) 100 04/06/19 08:00 109 04/06/19 07:33 144 20 100 04/06/19 07:30 118 20 83/59 (67) 100 04/06/19 04:00 95 04/06/19 04:00 110/70 04/06/19 04:00 98.0 94 20 114/64 (81) 95 04/06/19 00:00 97.7 98 20 120/72 (88) 93 04/06/19 00:00 97 04/05/19 21:35 105/58 04/05/19 21:00 Room Air 04/05/19 20:00 97.5 93 20 105/58 (74) 93 04/05/19 16:59 143/83 04/05/19 16:00 103 04/05/19 16:00 97.5 96 18 143/83 (103) 90 04/05/19 12:00 97.7 106 19 148/85 (106) 90 04/05/19 12:00 100 Intake and Output 04/05/19 04/06/19 19:00 07:00 Intake Total 1475 ml Output Total 600 ml Balance 875 ml Intake Oral 300 ml IV Total 1175 ml Output Urine Total 600 ml # Bowel Movements 1 1 Laboratory Tests Test 04/06/19 06:05 White Blood Count 9.7 K/UL (4.8-10.8) Red Blood Count 3.12 M/UL (4.70-6.10) L Hemoglobin 8.8 G/DL (14.2-18.0) L Hematocrit 26.1 % (42.0-52.0) L Mean Corpuscular Volume 84 FL (80-99) Mean Corpuscular Hemoglobin 28.1 PG (27.0-31.0) Mean Corpuscular Hemoglobin Concent 33.6 G/DL (32.0-36.0) Red Cell Distribution Width 16.3 % (11.6-14.8) H Platelet Count 239 K/UL (150-450) Mean Platelet Volume 5.0 FL (6.5-10.1) L Neutrophils (%) (Auto) 80.0 % (45.0-75.0) H Lymphocytes (%) (Auto) 10.4 % (20.0-45.0) L Monocytes (%) (Auto) 7.3 % (1.0-10.0) Eosinophils (%) (Auto) 1.8 % (0.0-3.0) Basophils (%) (Auto) 0.5 % (0.0-2.0) Sodium Level 152 MMOL/L (136-145) H Potassium Level 3.8 MMOL/L (3.5-5.1) # Chloride Level 116 MMOL/L (98-107) H Carbon Dioxide Level 31 MMOL/L (21-32) Anion Gap 5 mmol/L (5-15) Blood Urea Nitrogen 24 mg/dL (7-18) H Creatinine 1.5 MG/DL (0.55-1.30) H Estimat Glomerular Filtration Rate mL/min (>60) Glucose Level 140 MG/DL (74-106) H Calcium Level 12.5 MG/DL (8.5-10.1) H Troponin I 0.030 ng/mL (0.000-0.056) Height (Feet): 5 Height (Inches): 7.00 Weight (Pounds): 100 Medications Current Medications Medications (Trade) Dose Ordered Sig/[place] Route PRN Reason Start Time Stop Time Status Last Admin Dose Admin Albuterol/ Ipratropium (Albuterol/ Ipratropium) 3 ml EVERY 6 HOURS PRN HHN Shortness of Breath 04/06/19 12:00 04/10/19 06:29 Calcitonin [place] (Miacalcin) 1 sprays BID NASAL 04/06/19 09:00 05/04/19 09:29 Ceftriaxone Sodium 1 gm/ Dextrose 55 ml @ 110 mls/hr Q24H IVPB 04/06/19 20:00 04/11/19 19:59 Dextrose/ Electrolytes 1,000 ml @ 75 mls/hr [id number] IV 04/06/19 08:15 05/05/19 12:59 04/06/19 08:44 Dopamine HCl/ Dextrose 250 ml @ 0 mls/hr Q24H IV 04/06/19 08:15 05/06/19 08:14 04/06/19 08:45 Enoxaparin Sodium (Lovenox) 30 mg DAILY SUBQ 04/06/19 09:00 05/04/19 08:59 Memantine (Namenda) 5 mg BID ORAL 04/06/19 09:00 05/04/19 17:59 Sertraline HCl (Zoloft) 25 mg DAILY ORAL 04/06/19 09:00 05/05/19 08:59 Assessment/Plan Problem List: (1) Cardiac arrest Assessment & Plan: intubated on vent support oxygenating well good volume and pressure hypotensive on pressors central line placed right subclavian iv fluids abx as per ID trend labs abg cxr ordered pending results will follow with recs thank you ICD Codes: I46.9 - Cardiac arrest, cause unspecified SNOMED: 587833112 (2) Stage III adenocarcinoma of prostate Assessment & Plan: patient with state 3 prostate cancer pending treatment at [facility] unlikely related to acute cardiac arrest this am abd exam with mild distention pending KUB no acute surgical intervention planned onc input thank you will follow with recs ICD Codes: C61 - Malignant neoplasm of prostate SNOMED: [id number], [id number] Jay Acevedo Apr 06, 2019 10:26
--- NOTE | 2019-04-06 10:56 | NUR ---
NURSE NOTES: Left message for Dr. Mathews regarding abnormal ABG result. Awaiting call back. Central line inserted by Dr Acevedo. Chest x-ray and KUB being performed at this time. Will follow up with result. Patient on Dopamine at 8mcg/kg/min at this time on peripheral line right forearm. Will monitor for IV infiltration and irritation. Will switch dopamine to central line when central line confirmed by radiologist.
--- NOTE | 2019-04-06 12:00 | NUR ---
NURSE NOTES: Patient opens eyes to pain and moves hands and feet slightly. No attempt at communication. Patient remains orally intubated with 7.5cm ET tube with 24 cm at the lip line. Ventilator setting AC 14, TV 500, FiO2 100%, and PEEP 3. Right nares NGT at 70cm and connected to low intermittent suction. Gastric content black/brown. Sinus rhythm on the pvc monitor with rate of 89 beats per minute. BP low at 93/58. Dopamine running on right forearm 20 gauge peripheral IV. Central line access attempted but not verified at this time. Will continue to monitor peripheral IV dopamine infusion. No sign of infiltration at this time. guerra remains in place with minimal 10mL/hr urine output. D5W with 20mEq KCL running at 75mL/hr at this time. Patient repositioned, cleaned, and oral care performed. Will continue to monitor.
--- NOTE | 2019-04-06 12:01 | NUR ---
NURSE NOTES: Received call back from Dr Mathews. Updated him regarding ABG result. Received order for Ventilator setting AC 18, TV 500, and PEEP 3. Order read back, verified, and placed.
--- NOTE | 2019-04-06 12:51 | Infectious Diseases Prog Note ---
Assessment/Plan Assessment/Plan Abx: Ceftriaxone 04/03- Assessment: s/p asystole cardiac arrest 2/ VDRF Shock, on dopamine Sepsis UTI -u/a wbc 20-30, nit +, leuk +3; ucx >100k E.coli (R amp, bactrim; otherwise S) Afebrile Mild leukocytosis, SP s/p recent fall LETA Hypokalemia prostate CA stage III chronic indwelling guerra catheter Plan: -Continue empiric Ceftriaxone #4/7 for UTI -f/u cx -Monitor CBC/CMP, temperatures -aspiration precautions -ETT/ICU care -Cards, renal f/u Thank you for this consultation. Will continue to follow along with you. Discussed with RN Subjective Allergies: Coded Allergies: No Known Allergies (Unverified , 04/03/19) Subjective afebrile no leukocytosis on ICU now after asystole cardiac arrest this am Objective Vital Signs Last 24 Hour Vital Signs Date Time Temp Pulse Resp B/P (MAP) Pulse Ox O2 Delivery O2 Flow Rate FiO2 04/06/19 11:58 97.4 04/06/19 11:18 94 14 100 04/06/19 11:00 92 17 91/57 (68) 97 04/06/19 10:00 101 14 87/59 (68) 97 04/06/19 10:00 96.6 04/06/19 09:33 89 15 50 04/06/19 09:30 88 20 88/60 (69) 100 04/06/19 09:00 91 20 66/49 (55) 100 04/06/19 08:45 67/55 04/06/19 08:30 98 20 66/49 (55) 100 04/06/19 08:00 109 20 67/48 (54) 100 04/06/19 08:00 109 04/06/19 07:33 144 20 100 04/06/19 07:30 118 20 83/59 (67) 100 04/06/19 04:00 95 04/06/19 04:00 110/70 04/06/19 04:00 98.0 94 20 114/64 (81) 95 04/06/19 00:00 97.7 98 20 120/72 (88) 93 04/06/19 00:00 97 04/05/19 21:35 105/58 04/05/19 21:00 Room Air 04/05/19 20:00 97.5 93 20 105/58 (74) 93 04/05/19 16:59 143/83 04/05/19 16:00 103 04/05/19 16:00 97.5 96 18 143/83 (103) 90 Height (Feet): 5 Height (Inches): 7.00 Weight (Pounds): 100 Objective General Appearance: normal inspection, alert, Chronically Ill Head: atraumatic ENT: normal ENT inspection, normal voice, dry mucus membranes Neck: normal inspection, full range of motion, supple, no bony tend Respiratory: normal inspection, lungs clear, normal breath sounds, no respiratory distress, no retraction, no wheezing Cardiovascular #1: regular rate, rhythm, no edema Gastrointestinal: normal inspection, normal bowel sounds, non tender, soft, no guarding, no hernia Genitourinary: no CVA tenderness Musculoskeletal: normal inspection, back normal, normal range of motion Neurologic: alert, motor strength/tone normal, oriented, motor weakness, responsive, speech normal, other - atrophy to muscles Psychiatric: normal inspection, judgement/insight normal, mood/affect normal Skin: no rash Microbiology Date/Time Source Procedure Growth Status 04/03/19 17:30 Blood Blood Culture - Preliminary NO GROWTH AFTER 48 HOURS Resulted 04/03/19 17:15 Blood Blood Culture - Preliminary NO GROWTH AFTER 48 HOURS Resulted 04/03/19 17:00 Urine,Clean Catch Urine Culture - Final Escherichia Coli Complete Laboratory Tests Test 04/06/19 06:05 04/06/19 10:00 04/06/19 11:00 White Blood Count 9.7 K/UL (4.8-10.8) Red Blood Count 3.12 M/UL (4.70-6.10) L Hemoglobin 8.8 G/DL (14.2-18.0) L Hematocrit 26.1 % (42.0-52.0) L Mean Corpuscular Volume 84 FL (80-99) Mean Corpuscular Hemoglobin 28.1 PG (27.0-31.0) Mean Corpuscular Hemoglobin Concent 33.6 G/DL (32.0-36.0) Red Cell Distribution Width 16.3 % (11.6-14.8) H Platelet Count 239 K/UL (150-450) Mean Platelet Volume 5.0 FL (6.5-10.1) L Neutrophils (%) (Auto) 80.0 % (45.0-75.0) H Lymphocytes (%) (Auto) 10.4 % (20.0-45.0) L Monocytes (%) (Auto) 7.3 % (1.0-10.0) Eosinophils (%) (Auto) 1.8 % (0.0-3.0) Basophils (%) (Auto) 0.5 % (0.0-2.0) Sodium Level 152 MMOL/L (136-145) H Potassium Level 3.8 MMOL/L (3.5-5.1) # Chloride Level 116 MMOL/L (98-107) H Carbon Dioxide Level 31 MMOL/L (21-32) Anion Gap 5 mmol/L (5-15) Blood Urea Nitrogen 24 mg/dL (7-18) H Creatinine 1.5 MG/DL (0.55-1.30) H Estimat Glomerular Filtration Rate mL/min (>60) Glucose Level 140 MG/DL (74-106) H Calcium Level 12.5 MG/DL (8.5-10.1) H Troponin I 0.030 ng/mL (0.000-0.056) 0.074 ng/mL (0.000-0.056) Arterial Blood pH 7.308 (7.350-7.450) Arterial Blood Partial Pressure CO2 59.9 mmHg (35.0-45.0) *H Arterial Blood Partial Pressure O2 70.7 mmHg (75.0-100.0) L Arterial Blood HCO3 29.3 mmol/L (22.0-26.0) H Arterial Blood Oxygen Saturation 92.5 % (95-100) L Arterial Blood Base Excess 2.3 (-2-2) H Antonio Test Positive Current Medications Medications (Trade) Dose Ordered Sig/[place] Route PRN Reason Start Time Stop Time Status Last Admin Dose Admin Albuterol/ Ipratropium (Albuterol/ Ipratropium) 3 ml EVERY 6 HOURS PRN HHN Shortness of Breath 04/06/19 12:00 04/10/19 06:29 Calcitonin [place] (Miacalcin) 1 sprays BID NASAL 04/06/19 09:00 05/04/19 09:29 Ceftriaxone Sodium 1 gm/ Dextrose 55 ml @ 110 mls/hr Q24H IVPB 2/3/20 20:00 04/11/19 19:59 Dextrose/ Electrolytes 1,000 ml @ 75 mls/hr [id number] IV 04/06/19 08:15 05/05/19 12:59 04/06/19 08:44 Dopamine HCl/ Dextrose 250 ml @ 0 mls/hr Q24H IV 04/06/19 08:15 05/06/19 08:14 04/06/19 08:45 Enoxaparin Sodium (Lovenox) 30 mg DAILY SUBQ 04/06/19 09:00 05/04/19 08:59 Memantine (Namenda) 5 mg BID ORAL 04/06/19 09:00 05/04/19 17:59 Sertraline HCl (Zoloft) 25 mg DAILY ORAL 04/06/19 09:00 05/05/19 08:59 Rafia Nielson M.D. Apr 06, 2019 12:51
--- NOTE | 2019-04-06 13:31 | NUR ---
WHITEWASHERMEDICAL RADIATION DOSIMETRIST 04/04/19 73 YO MALE FROM HOME TO ER CC GENERALIZED WEAKNESS X 3 DAYS SI: GENERALIZED WEAKNESS,DEHYDRATION T. 96.4 HR 83 RR 16 B/P 119/81 WBC 11.4 NA 148 UA+ PROTEIN,KETONES,BLOOD,NITRATES,BILIRUBIN,LEUKOCYTE ESTERASE,RBC,WBC HEAD CT= NEGATIVE IS: IV BOLUS NS X 1 LITER ADMITTED TO TELE@2109 TELE STATUS DCP PENDING HOSPITAL STAY 04/06/19 SI: S/P CODE BLUE RESP FAILURE ETT/VENT SUPPORT T. 98.0 HR 118 RR 20 B/P 67/48 AC 18 TV 500 FIO2 100% PEEP 5 NA 152 BUN 24 CR 1.5 CA 12.5 TROP 0.030 ABD X-RAY= NGT IN PLACE CXR= ETT IN PLACE IS: DOPAMINE GTT IVF D5KCL @ 75ML/HR ICU STATUS
--- NOTE | 2019-04-06 13:35 | Diagnostic Imaging Report ---
Indication: NG tube adjustment Comparison: None Single view of the abdomen obtained Findings: NG tube is in good position with both proximal and distal ports in the stomach lumen. No change otherwise. IMPRESSION: NG tube in good position
--- NOTE | 2019-04-06 13:38 | NUR ---
DAILY SALES AUDIT CLERK NOTES SPOKE WITH SHAHRZAD FROM [facility], UPDATED CLINICALS GIVEN. PT NOT STABLE FOR TRANSFER @ THIS TIME. PT CURRENTLY ORALLY INTUBATED WITH FIO2 100%. CONTINUES ON A DOPAMINE GTT. UPDATED BED STATUS TO ICU BED. PER SHAHRZAD NO BEDS AVAILABLE TODAY. WILL FOLLOW UP IN AM.
--- NOTE | 2019-04-06 13:48 | Diagnostic Imaging Report ---
Indication: Status post line placement Comparison: 08:03 A single view chest radiograph was obtained. Findings: Current study done 10:45 Interval development of right upper lobe density demonstrated. A right subclavian line is present and the the tip oriented cranially into the right jugular vein. The actual tip is not seen. In light of the subclavian catheter placement, it is possible that the density at the right lung apex is secondary to blood. It is also possible that the right upper lobe density is due to atelectasis of the right upper lobe. Radiographically, nature of the apical cap is not definitive. There is no tracheal deviation or evidence of mass effect on the mediastinum. There is no pneumothorax. Follow-up chest x-ray is recommended. Findings were discussed with Dr. Acevedo via telephone. Endotracheal tube is in good position about 5 cm above the yari. There is no change otherwise. IMPRESSION: Right subclavian line tip is in the jugular vein. No pneumothorax. Interval development of a right apical density: Blood versus right upper lobe collapse. Critical value communication. Findings were discussed via telephone with Dr. Acevedo.
[2019-04-06] MEDS ORDERED: Heparin1,000 units/500ml Premix(Conc:2 units/ml) IV PRN (14:00)
[2019-04-06] MEDS ORDERED: Lidocaine 1% Plain 30 ml INJ PRN (14:00)
--- NOTE | 2019-04-06 14:50 | NUR ---
Social Work This SW met with patient, currently in the ICU who is intubated, sedated, unresponsive at this time. Brother, Renny ([phone]) currently at bedside and explains son, Abdoul ([phone]) is out of town, but is the primary decision maker for patient. Brother can be contacted, as needed. Brother explains family are requesting full code, full treatment at this time. Pending progress (family to make further decisions, as needed if patient does not progress). Brother stating patient was living alone at home, independent, still driving. Possible transfer to [facility] for Chemotherapy recommended (when patient is medically stable). This SW provided emotional support to family; Sw to follow as needed.
--- NOTE | 2019-04-06 15:00 | Progress Note ---
DATE: 04/06/2019 SUBJECTIVE: This is a 73-year-old male patient who has significant depression, anxiety, and mood lability. This patient is in the hospital secondary to generalized weakness and dehydration, but he also has altered mental status, disorganized thought process, decline in cognition below his baseline. MENTAL STATUS EXAMINATION: This is a 73-year-old male. Appearance is disheveled. Attitude, irritable and agitated. Affect, guarded and restricted. Intellect poor. Mood, depressed and anxious. Motor activity, psychomotor agitation. Attention span is poor. Orientation x2. Speech is pressured. Thought process, disorganized and illogical. Insight and judgment is poor. DIAGNOSIS: Major depressive disorder, severe, recurrent with psychotic features, rule out dementia with psychosis. PLAN: For this patient is treat him with a medication regimen of Zoloft 25 mg daily. 20 minutes of cognitive behavioral therapy to help him identify his automatic negative thoughts, help him convert his negative thoughts to more positive thoughts to reduce depression, anxiety, and mood lability. The patient will continued to be followed by Psychiatry throughout hospital course. Also treat him with Namenda 5 mg twice a day. Chart reviewed and discussed with staff. Seen and assessed at the bedside. Cherise Palma M.D. DR: MANDI JOB#: [id number] CC:
[2019-04-06] MEDS ORDERED: Lidocaine 1% 10mg/ml/Epi 0.005mg/ml 30ml vial INJ ONE (15:22)
[2019-04-06] MEDS ORDERED: Lidocaine 1% 10mg/ml/Epi 0.005mg/ml 30ml vial INJ PRN (15:31)
--- NOTE | 2019-04-06 15:45 | NUR ---
P.T. NOTES S/P: PATIENT TRANSFERRED TO ICU THIS MORNING, AFTER CODE BLUE. PER RN. WILL WAIT FOR NEW M.D. ORDER. NICOLASA.
--- NOTE | 2019-04-06 16:00 | NUR ---
NURSE NOTES: Central line placed by Dr Acevedo on left internal jugular, triple lumen catheter. previous malpositioned central line in right internal jugular removed. Placement verified with chest x-ray read by radiologist and Dr Acevedo. Dopamine now running on central line. BP remains low at 93/47 with HR elevated at 110 beats per minute. Received order from Dr Valadez for Levophed drip. Order read back, verified, and placed. Notified Dr Cortez. Addendum: 04/06/19 at 1942 by Kayli Boyce RN NURSE NOTES: Patient mentation remains the same. Patient remains orally intubated with 7.5cm ET tube with 24 cm at the lip line. Ventilator setting AC 18, TV 500, FiO2 100%, and PEEP 3. Right nares NGT at 70cm, verified, and connected to low intermittent suction. Gastric content remains black/melgar/brown. Sinus tachycardia on the monitoring engineer with rate of 105 beats per minute. BP low at 93/47. Dopamine running at 18mcg/kg/min at this time on new left internal jugular triple lumen central line. guerra remains in place with minimal 10mL/hr urine output. D5W with 20mEq KCL running at 75mL/hr at this time on new central line. Patient repositioned band oral care performed. Will continue to monitor.
--- NOTE | 2019-04-06 16:11 | Diagnostic Imaging Report ---
Indication: Dyspnea Comparison: Earlier today A single view chest radiograph was obtained. Findings: Left subclavian line is now been placed. The tip is over the SVC and is in good position. There is no pneumothorax. Previously demonstrated right subclavian line was removed. The density at the apical aspect of the right lung has resolved indicating this was likely atelectasis. There is now a new density at the right lung base which may be new atelectasis involving the lung base. Patchy infiltrates noted bilaterally. Heart size is stable. Other tubes and lines are stable. IMPRESSION: New left subclavian central venous catheter in good position. No pneumothorax. Interval resolution of right apical density. This suggests the diagnosis was atelectasis rather than an apical cap from blood, which was suggested as a possibility on the prior report. The right upper lobe atelectasis has resolved. Suspicion of new atelectasis at the right lung base.
[2019-04-06 18:10] LABS: INR 1.1 (0.9-1.1)
[2019-04-06 18:19] LABS: ALANINE AMINOTRANSFERASE 25 U/L (12-78); ALBUMIN 2.1 G/DL (3.4-5.0); ALBUMIN/GLOBULIN RATIO 0.6 (1.0-2.7); ALKALINE PHOSPHATASE 75 U/L (46-116); ANION GAP 5 mmol/L (5-15); ASPARTATE AMINO TRANSFERASE 70 U/L (15-37); BILIRUBIN,TOTAL 0.3 MG/DL (0.2-1.0); BLOOD UREA NITROGEN 26 mg/dL (7-18); CALCIUM 11.6 MG/DL (8.5-10.1); CARBON DIOXIDE 31 MMOL/L (21-32); CHLORIDE 116 MMOL/L (98-107); CREATININE 1.5 MG/DL (0.55-1.30); POTASSIUM 3.5 MMOL/L (3.5-5.1); SODIUM 152 MMOL/L (136-145)
--- NOTE | 2019-04-06 18:30 | NUR ---
NURSE NOTES: Patient BP 110/56, HR 103. Dopamine and Levophed drips running on left internal jugular central line. Will continue to monitor. Patient repositioned.
[2019-04-06 18:32] LABS: HEMATOCRIT 26.4 % (42.0-52.0); HEMOGLOBIN 8.3 G/DL (14.2-18.0); MEAN CORPUSCULAR VOLUME 87 FL (80-99); PLATELET COUNT 219 K/UL (150-450); RED BLOOD COUNT 3.03 M/UL (4.70-6.10); RED CELL DISTRIBUTION WIDTH 17.1 % (11.6-14.8); WHITE BLOOD COUNT 12.2 K/UL (4.8-10.8)
--- NOTE | 2019-04-06 19:15 | NUR ---
HAND-OFF: Report given to BLANCA Beverly. Patient HR 110, BP 97/67. Levophed running at 8mcg/min and dopamine running at 10mcg/kg/min. Endorsed to monitor and follow up.
--- NOTE | 2019-04-06 19:16 | NUR ---
NURSE NOTES: Received patient from Kayli Boyce RN. Will continue plan of care.
--- NOTE | 2019-04-06 19:18 | NUR ---
RESPIRATORY NOTE: Received pt on AC 18, 500VT, 60%, PEEP +3. Pt intubated w/ ETT 7.5 @ 24cm lipline, secured by anchorfast. Pt is asleep/flat effect. B/S cleopatra. rhonchi/diminished, sxn small to moderate amounts of thick, pale-yellow to melgar-yellow secretions. Vent plugged into red outlet, ambubag at bedside. Pt in no apparent distress at this time. Will continue to monitor pt.
[2019-04-06] MEDS ORDERED: cefTRIAXone 1 GM in D5W 55 ML IVPB SCH (20:00)
--- NOTE | 2019-04-06 20:00 | NUR ---
NURSE NOTES: Patient is asleep and does not respond at the moment. Intubated ETT 7.5 @ 24cm to the lipline to vent with settings of AC:18, TV:500, FiO2:60% PEEP:3, O2:100%. Patient has low grade fever of 99.9F axillary; cooling measures applied. Patient is NPO at the moment. Left IJ central line running Dopamine at 10mcg/kg/hr and Levophed at 8mcg/kg/hr, D5W w/ 20meq kcl at 75ml/hr. Daughter Amy called for status update. Safety measures in place; bed low, locked and alarm is on. Will continue plan of care.
--- NOTE | 2019-04-06 20:15 | Consultation ---
DATE OF CONSULTATION: 04/06/2019 PULMONARY CONSULTATION HISTORY OF PRESENT ILLNESS: This is a 73-year-old male with advanced prostate carcinoma. The patient was admitted to the hospital several days ago after a fall. He was found to be hypernatremic and hypokalemic. He received fluids as well as potassium replacement. He has a Morales in place. The patient admitted to [facility]. The patient was found to have hydronephrosis. Overnight, the patient had asystolic cardiac arrest and currently is intubated in ICU. He is unresponsive and is not breathing over the vent. Current vent settings are AC of 14, tidal volume 500, FiO2 %, PEEP of 5. Lab data is notable for hemoglobin 8.8, creatinine 1.5, sodium 152, potassium 2.8. His imaging studies have shown evidence of mild vascular congestion without any overt heart failure. There is no hyperinflation noted. PAST MEDICAL HISTORY: Notable for prostate CA, chronic Morales, hypertension, and COPD. REVIEW OF SYSTEMS: Not obtainable. PHYSICAL EXAMINATION: GENERAL: Reveals an intubated black male. HEENT: Unremarkable. CHEST: Diminished breath sounds bilaterally with normal heart sounds. ABDOMEN: Soft. GENITOURINARY: Morales is in place. EXTREMITIES: There is no edema. LABORATORY DATA: Lab testing as discussed above. IMAGING STUDIES: As discussed above. IMPRESSION: 1. Status post asystolic cardiac arrest. 2. Respiratory failure, on AC mode. 3. Altered mental status. 4. Hypernatremia. 5. Hypokalemia . 6. History of COPD. 7. Prostate CA. DISCUSSION: 1. Discussed with Surgery at bedside as well as bedside nursing. 2. Discussed also with the patient's daughter, Amy, over the phone. 3. Discussed with Dr. Sawyer Toussaint. 4. The patient at this time needs assist control mechanical ventilation. 5. We will check ABG. 6. We will continue vent as is. 7. The patient's family is requesting transfer to contracted facility. Currently, he is on low-dose dopamine and intubated; therefore, transfer will not be possible till he is more stable and we will attempt to wean off. 8. Continue medications. 9. We will follow carefully. Ganesh Mathews M.D. DR: Jese JOB#: [id number] CC:
[2019-04-06] MEDS: Dyna-Hex 2% Top Sol 2oz TOPIC SCH (20:18)
--- NOTE | 2019-04-06 22:00 | NUR ---
NURSE NOTES: Patient remains sleeping. Continues to run Levophed at 8mcg/kg/hr and Dopamine at 10mcg/kg/hr. Current BP:107/60 HR:86. Suctioning provided. Turned and repositioned. Will continue to monitor.
[2019-04-07] VITALS (63 sets, daily range): BP systolic 91–189; BP diastolic 56–88
--- NOTE | 2019-04-07 | NUR ---
NURSE NOTES: Patient remains unconscious. BP:137/71 HR:83, continues to run Levophed at 8mcg/kg/hr and Dopamine at 10mcg/kg/hr. Suctioning provided. CPT done by RT. Will continue to monitor.
--- NOTE | 2019-04-07 | Consultation ---
DATE OF CONSULTATION: 04/06/2019 CARDIOLOGY CONSULTATION CONSULTING PHYSICIAN: Nain Cortez M.D. REFERRING PHYSICIAN: Sawyer Toussaint D.O. REASON FOR CONSULTATION: Bradycardia and arrest. HISTORY OF PRESENT ILLNESS: The patient is a 73-year-old gentleman with history of prostate cancer, was brought to the emergency room for not feeling well, dehydration, and confusion. The patient was noted to have a low potassium, high calcium, and elevated creatinine. The patient was evaluated by Nephrology. The patient also has psychiatric history and has been evaluated by Psych as well. The patient also had urinary tract infection. This morning at 7 a.m., while I was rounding on the floor, the patient had episode of bradycardic arrest. The patient was noted to be unresponsive and no spontaneous breathing and a Code was called. The patient was immediately intubated by the emergency room physician. At the time of my evaluation, the CPR is still ongoing with the patient just had a pulse. The patient will be transferred to intensive care unit. REVIEW OF SYSTEMS: Cannot be obtained. PAST MEDICAL HISTORY: As mentioned above. FAMILY HISTORY: Noncontributory. SOCIAL HISTORY: No history of IV drug use. PHYSICAL EXAMINATION: VITAL SIGNS: Blood pressure was 110/70 with a pulse of 95 at 4 a.m., however, at the time of my evaluation the patient just regained pulse after epi, bicarb and atropine. He is orally intubated with NG tube being placed. LUNGS: Coarse rhonchi. CARDIOVASCULAR: Regular S1 and S2 and tachycardic. ABDOMEN: Soft and nondistended. EXTREMITIES: No pitting edema. LABORATORY AND DIAGNOSTIC DATA: His telemetry strip from today at 7 a.m. showed episodes of bradycardia, subsequent asystole of more than 10 seconds. His labs show white count of 9.7, hemoglobin of 8.8, hematocrit 26.1, and platelet count 239,000. Sodium 152, potassium 3.8, BUN of 24, creatinine 1.5, and glucose of 140. His PSA is elevated at 753. ASSESSMENT AND PLAN: 1. Status post bradycardic arrest with asystole. No evidence of ventricular tachycardia or ventricular fibrillation. I am not sure this is secondary to respiratory arrest. The patient was successfully intubated. The patient was transferred to intensive care unit. The patient is on clonidine 0.1 every 6 hours that will be discontinued. We will completely rule out TX protocol, repeat EKG and echocardiogram for further evaluation. 2. Respiratory failure, intubated on the ventilator. 3. History of stage III prostate cancer, followed by Dr. Monroy. 4. Hypertension. Discontinue all the hypertensive medications in view of the patient's code and arrest. 5. Hypercalcemia due to prostate cancer. 6. Hypernatremia. The patient is on IV fluids. The case was discussed with the emergency room physician while attending the Code. Thank you very much for allowing me to participate in the care of this patient. Please do not hesitate to contact me for any questions regarding my evaluation. Nain Cortez M.D. DR: LILIA JOB#: [id number] CC:
--- NOTE | 2019-04-07 02:00 | NUR ---
NURSE NOTES: Current BP:150/88. Tapered Dopamine and Levophed down to 5mcg/kg/hr. Beginning to move left extremity but still weak. Opens eyes to suction. Safety measures in place. Will continue to monitor.
[2019-04-07 03:21] LABS: BASOPHILS % (AUTO) 0.4 % (0.0-2.0); EOSINOPHILS % (AUTO) 1.9 % (0.0-3.0); HEMATOCRIT 26.7 % (42.0-52.0); HEMOGLOBIN 9.2 G/DL (14.2-18.0); MEAN CORPUSCULAR VOLUME 82 FL (80-99); NEUTROPHILS % (AUTO) 74.7 % (45.0-75.0); PLATELET COUNT 220 K/UL (150-450); RED BLOOD COUNT 3.25 M/UL (4.70-6.10); RED CELL DISTRIBUTION WIDTH 16.5 % (11.6-14.8); WHITE BLOOD COUNT 14.1 K/UL (4.8-10.8)
[2019-04-07 03:32] LABS: INR 1.1 (0.9-1.1)
[2019-04-07 03:38] LABS: ALANINE AMINOTRANSFERASE 24 U/L (12-78); ALBUMIN 2.2 G/DL (3.4-5.0); ALBUMIN/GLOBULIN RATIO 0.5 (1.0-2.7); ALKALINE PHOSPHATASE 87 U/L (46-116); ANION GAP 8 mmol/L (5-15); ASPARTATE AMINO TRANSFERASE 69 U/L (15-37); BILIRUBIN,TOTAL 0.3 MG/DL (0.2-1.0); BLOOD UREA NITROGEN 27 mg/dL (7-18); CALCIUM 12.4 MG/DL (8.5-10.1); CARBON DIOXIDE 29 MMOL/L (21-32); CHLORIDE 113 MMOL/L (98-107); CREATININE 1.7 MG/DL (0.55-1.30); POTASSIUM 3.8 MMOL/L (3.5-5.1); SODIUM 150 MMOL/L (136-145)
--- NOTE | 2019-04-07 04:00 | NUR ---
NURSE NOTES: Patient reacted and opened eyes to light pain when getting labs drawn. Able to nod head in response to his daughter Amy's name. Dopamine on hold, Levophed titrated down to 3mcg/kg/hr. Current BP:104/59. HR:90. Patient will hold breath and bite on ETT occasionally. Bed bath given, linens changed, Left subclavian TLC dressing changed, turned, repositioned, suctioning, oral care done. Will continue to monitor.
--- NOTE | 2019-04-07 06:00 | NUR ---
NURSE NOTES: Levophed continues to run at 3mcg/kg/hr. Current BP:110/68 HR:92. Patient is now calm and sleeping. Safety measures in place. No other changes in conditions.
--- NOTE | 2019-04-07 07:15 | NUR ---
HAND-OFF: Report given to WILBERTO RONQUILLO RN.
--- NOTE | 2019-04-07 07:16 | NUR ---
NURSE NOTES: Report received from BLANCA Beverly. Pt opens eyes to tactile stimuli. Lethargic. Pt is trying to reach ETT at times. On bilateral soft wrist restraints. Sinus rhythm on cardiac care nurse 90's. ETT 7.5/24cm at lip line. AC 18, TV 500, FiO2 60%, P 3. O2 sat 100%. Left NGT in place, connected to low intermittent suction, draining brown emesis. Morales in place draining to gravity. Left Subclavian TLC and right FA G20 patent and asymptomatic. S5Woctt 20 meq KCL is running at 75cc/hr and Levo at 3 mcg/min. Bed in lowest position. Side rails up x3. Will resume plan of care.
--- NOTE | 2019-04-07 07:21 | Hematology/Onc Progress Note ---
Assessment/Plan Assessment/Plan # Prostate cancer stage IV with psa >700, cr is worse, hydronephrosis noted, seen by renal, Dr. White. --> i did received records from [facility]. has regional lymphadenopathy, s/p transrectal biopsy with Gleasons 5+5 (2010) in all cores, apparently has had a 3 year course of androgen deprivation from 2011- 2014.also status post RADIATION to the prostate, then lost to followup. Following surviellance psa 0.45-->65, in 10/2016, and up to 127 in 12/2016, Ct scan showed recurrence of disease with lad but no bony mets, started on lupron 01/2017, psa fell yo 73-->46, has been sarted on zytiga + prednisone, and now psa progression on zytiga, he started xtandi in 01/2019 Psa 87. He did not go through urethral stenting, he has deferred treatment with chemo. --> He is a very poor historian, I have talked to the sister --> imaging has been noted --> as per urology recs, reviewed --> have called , no answer, trans to [facility]? --> poor prognosis given above history of treatment, defer transfer to [facility] --> psa 737-->757 # Hypercalcemia -- now acutely worse --> trend Ca++ 8.1-->13-->12 --> ivf has been started --> as per nephrology --> consider pamidronate v calcitonin v other agent # Episode of generalized weakness --> on ivf --> pt as needed # Hypokalemia --> replete prn # Dehydration --> on ivf # Atrophic changes without evident intracranial hemorrhage. --> as per neuro, remains confused # Respiratory failure s/p vent --> s/p vent intubated on 2/ # Hypernatremia as well as low BUN. --> on ivf # Poor prognosis # Dvt ppx lovenox sq Appreciate consultation and Jemal Rn Subjective Constitutional: Denies: no symptoms, chills, fever, malaise, weakness, other HEENT: Denies: no symptoms, eye pain, blurred vision, tearing, double vision, ear pain, ear discharge, nose pain, nose congestion, throat pain, throat swelling, mouth pain, mouth swelling, other Cardiovascular: Denies: no symptoms, chest pain, edema, irregular heart rate, lightheadedness, palpitations, syncope, other Respiratory: Denies: no symptoms, cough, shortness of breath, SOB with excertion, SOB at rest, sputum, wheezing, other Gastrointestinal/Abdominal: Denies: no symptoms, abdomen distended, abdominal pain, black stools, tarry stools, blood in stool, constipated, diarrhea, difficulty swallowing, nausea, poor appetite, poor fluid intake, rectal bleeding , vomiting, other Genitourinary: Denies: no symptoms, burning, discharge, frequency, flank pain, hematuria, incontinence, pain, urgency, other Neurologic/Psychiatric: Denies: no symptoms, anxiety, depressed, emotional problems, headache, numbness, paresthesia, pre-existing deficit, seizure, tingling, tremors, weakness, other Allergies: Coded Allergies: No Known Allergies (Unverified , 04/03/19) Subjective 2/3: no events, apparently intubated today and transferred to the icu, will dw family 2/4: remains in the icu, critically ill, Ca++ 12, on vent, minimally responsive , on dopa, dw pcp and pulm Objective Objective Current Medications Medications (Trade) Dose Ordered Sig/La Nena Route PRN Reason Start Time Stop Time Status Last Admin Dose Admin Albuterol/ Ipratropium (Albuterol/ Ipratropium) 3 ml EVERY 6 HOURS PRN HHN Shortness of Breath 04/06/19 12:00 04/10/19 06:29 Calcitonin Hughes (Miacalcin) 1 sprays BID NASAL 04/06/19 09:00 05/04/19 09:29 Ceftriaxone Sodium 1 gm/ Dextrose 55 ml @ 110 mls/hr Q24H IVPB 04/06/19 20:00 04/11/19 19:59 04/06/19 20:18 Chlorhexidine Gluconate (Martha-Hex 2%) 1 applic DAILY@2000 TOPIC 04/06/19 20:00 05/06/19 19:59 04/06/19 20:18 Dextrose/ Electrolytes 1,000 ml @ 75 mls/hr [id number] IV 04/06/19 08:15 05/05/19 12:59 04/06/19 20:55 Dopamine HCl/ Dextrose 250 ml @ 0 mls/hr Q24H IV 04/06/19 08:15 05/06/19 08:14 04/06/19 20:56 Enoxaparin Sodium (Lovenox) 30 mg DAILY SUBQ 04/06/19 09:00 05/04/19 08:59 Memantine (Namenda) 5 mg BID ORAL 04/06/19 09:00 05/04/19 17:59 Norepinephrine Bitartrate 4 mg/ Dextrose 250 ml @ 0 mls/hr Q24H IV 04/06/19 16:17 05/06/19 16:16 04/07/19 00:53 Sertraline HCl (Zoloft) 25 mg DAILY ORAL 04/06/19 09:00 05/05/19 08:59 Last 24 Hour Vital Signs Date Time Temp Pulse Resp B/P (MAP) Pulse Ox O2 Delivery O2 Flow Rate FiO2 04/07/19 06:30 85 18 04/07/19 06:00 99 20 110/68 (82) 100 04/07/19 05:45 92 20 115/63 (80) 100 04/07/19 05:30 89 19 120/67 (84) 99 04/07/19 05:15 92 19 102/60 (74) 100 04/07/19 05:14 101 20 60 04/07/19 05:00 91 19 105/67 (80) 94 04/07/19 04:45 97 20 114/67 (83) 96 04/07/19 04:30 101 20 112/66 (81) 95 04/07/19 04:15 96 22 104/59 (74) 100 04/07/19 04:01 103 34 97/60 (72) 99 04/07/19 04:00 Mechanical Ventilator 04/07/19 04:00 97.7 109 28 91/63 (72) 04/07/19 03:45 119 23 130/80 (97) 97 04/07/19 03:30 123 32 159/81 (107) 91 04/07/19 03:30 136/81 04/07/19 03:15 123 25 136/81 (99) 91 04/07/19 03:03 124 04/07/19 03:00 123 28 189/85 (119) 82 04/07/19 03:00 114/74 04/07/19 02:59 123 27 60 04/07/19 02:45 93 22 114/74 (87) 100 04/07/19 02:30 100 22 119/75 (90) 100 04/07/19 02:20 114/68 04/07/19 02:15 102 26 114/68 (83) 100 04/07/19 02:00 105 20 150/88 (108) 99 04/07/19 02:00 150/88 04/07/19 02:00 150/88 04/07/19 01:45 91 24 138/76 (96) 100 04/07/19 01:30 94 18 131/73 (92) 100 04/07/19 01:15 98 20 136/75 (95) 100 04/07/19 01:00 79 18 139/67 (91) 100 04/07/19 00:53 133/70 04/07/19 00:53 82 18 60 04/07/19 00:45 133/70 04/07/19 00:45 82 18 133/70 (91) 100 04/07/19 00:30 81 18 137/70 (92) 100 04/07/19 00:15 86 18 137/70 (92) 100 04/07/19 00:02 88 04/07/19 00:00 99.5 84 18 137/71 (93) 100 04/07/19 00:00 Mechanical Ventilator 04/06/19 23:45 90 17 132/72 (92) 100 04/06/19 23:30 84 18 134/66 (88) 100 04/06/19 23:15 82 18 126/66 (86) 100 04/06/19 23:08 89 18 60 04/06/19 23:03 85 04/06/19 23:00 83 17 134/77 (96) 100 04/06/19 22:45 86 18 122/55 (77) 100 04/06/19 22:30 86 18 120/67 (84) 100 04/06/19 22:15 90 18 120/61 (80) 100 04/06/19 22:00 88 18 107/60 (76) 100 04/06/19 21:45 87 18 120/58 (78) 100 04/06/19 21:30 88 18 114/64 (81) 100 04/06/19 21:15 92 18 112/61 (78) 100 2/3/20 21:03 93 18 60 20 21:00 94 18 109/57 (74) 100 04/06/19 20:56 97/57 20 20:45 99 18 97/57 (70) 100 20 20:30 121 18 112/64 (80) 100 04/06/19 20:15 110 20 101/67 (78) 100 04/06/19 20:00 100 04/06/19 20:00 Mechanical Ventilator 04/06/19 20:00 99.9 112 21 107/66 (80) 100 04/06/19 19:45 112 20 106/54 (71) 100 04/06/19 19:30 123 23 100/42 (61) 100 04/06/19 19:20 112 04/06/19 19:15 113 21 98/58 (71) 100 04/06/19 19:12 113 21 60 04/06/19 19:00 109 20 102/54 (70) 100 04/06/19 19:00 99/65 04/06/19 19:00 99/65 04/06/19 18:45 109 18 101/56 (71) 100 04/06/19 18:30 114/63 04/06/19 18:30 114/43 04/06/19 18:30 127 22 124/99 (107) 100 04/06/19 18:15 111 18 118/54 (75) 100 04/06/19 18:00 112/62 04/06/19 18:00 112/62 04/06/19 18:00 96 18 117/60 (79) 100 20 17:45 88 18 113/62 (79) 100 20 17:30 91 18 108/54 (72) 100 04/06/19 17:30 105/43 20 17:19 92 18 60 20 17:15 103 18 95/34 (54) 100 20 17:15 84/37 20 17:00 110 18 105/38 (60) 98 04/06/19 17:00 91/49 20 17:00 104/47 2 16:56 104/47 20 16:50 99/55 04/06/19 16:45 107 18 99/55 (70) 100 04/06/19 16:30 105 18 102/48 (66) 100 04/06/19 16:15 104 18 100/38 (58) 100 04/06/19 16:00 103 04/06/19 16:00 93/47 04/06/19 16:00 100 04/06/19 16:00 Mechanical Ventilator 04/06/19 16:00 98.6 104 18 93/47 (62) 100 04/06/19 15:45 101 18 96/54 (68) 100 04/06/19 15:30 116 16 83/54 (64) 100 04/06/19 15:20 134 18 100 04/06/19 15:15 89/47 04/06/19 15:15 105 17 101/58 (72) 100 04/06/19 15:00 98 18 87/47 (60) 100 04/06/19 15:00 71/51 04/06/19 14:45 95 18 91/51 (64) 100 04/06/19 14:30 96 18 91/45 (60) 100 04/06/19 14:15 96 18 98/52 (67) 100 04/06/19 14:00 92/55 04/06/19 14:00 94 18 92/44 (60) 100 04/06/19 13:45 95 18 107/57 (74) 100 04/06/19 13:30 98 17 103/60 (74) 100 04/06/19 13:15 103 12 101/60 (74) 100 04/06/19 13:00 104 18 95/58 (70) 100 04/06/19 13:00 96/58 04/06/19 12:58 86 18 100 04/06/19 12:45 85 17 95/57 (70) 100 04/06/19 12:30 89 18 101/57 (72) 100 04/06/19 12:30 86 18 94/62 (73) 100 04/06/19 12:15 87 18 102/57 (72) 100 04/06/19 12:00 97.4 83 18 93/51 (65) 100 04/06/19 12:00 100 04/06/19 12:00 Mechanical Ventilator 04/06/19 12:00 93/58 04/06/19 12:00 110 2//20 11:58 97.4 04/06/19 11:45 80 14 100/61 (74) 100 04/06/19 11:30 81 15 76/49 (58) 100 04/06/19 11:30 78/39 04/06/19 11:18 94 14 100 04/06/19 11:00 92 17 91/57 (68) 97 04/06/19 11:00 89/59 04/06/19 10:45 92 17 91/57 (68) 97 04/06/19 10:30 70/54 04/06/19 10:30 86 14 71/54 (60) 04/06/19 10:15 62/26 04/06/19 10:15 92 14 62/26 (38) 99 04/06/19 10:00 101 14 87/59 (68) 97 04/06/19 10:00 82/62 04/06/19 10:00 96.6 04/06/19 09:45 75/53 04/06/19 09:45 91 14 79/50 (60) 100 04/06/19 09:33 89 15 50 04/06/19 09:30 88 20 88/60 (69) 100 04/06/19 09:15 89 15 73/57 (62) 100 04/06/19 09:00 79/57 04/06/19 09:00 91 20 66/49 (55) 100 04/06/19 08:45 67/55 04/06/19 08:30 98 20 66/49 (55) 100 04/06/19 08:00 109 20 67/48 (54) 100 04/06/19 08:00 100 04/06/19 08:00 Mechanical Ventilator 04/06/19 08:00 109 04/06/19 07:33 144 20 100 04/06/19 07:30 118 20 83/59 (67) 100 04/06/19 04:00 95 04/06/19 04:00 110/70 04/06/19 04:00 98.0 94 20 114/64 (81) 95 04/06/19 00:00 97.7 98 20 120/72 (88) 93 04/06/19 00:00 97 04/05/19 21:35 105/58 04/05/19 21:00 Room Air 04/05/19 20:00 97.5 93 20 105/58 (74) 93 04/05/19 16:59 143/83 04/05/19 16:00 103 04/05/19 16:00 97.5 96 18 143/83 (103) 90 04/05/19 12:00 97.7 106 19 148/85 (106) 90 04/05/19 12:00 100 04/05/19 10:03 158/103 04/05/19 09:00 Room Air 04/05/19 08:00 97.5 107 21 158/103 (121) 90 04/05/19 08:00 107 Intake and Output 04/06/19 04/07/19 19:00 07:00 Intake Total 1021.9655 ml 1169.654 ml Output Total 955 ml 350 ml Balance 66.9655 ml 819.654 ml IV Total 1021.9655 ml 1169.654 ml Output Urine Total 805 ml 350 ml Gastric Drainage Total 150 ml # Bowel Movements 1 2 Labs Test 04/05/19 07:20 04/06/19 06:05 04/06/19 10:00 04/06/19 11:00 White Blood Count 9.5 K/UL (4.8-10.8) 9.7 K/UL (4.8-10.8) Red Blood Count 3.54 M/UL (4.70-6.10) 3.12 M/UL (4.70-6.10) Hemoglobin 10.1 G/DL (14.2-18.0) 8.8 G/DL (14.2-18.0) Hematocrit 29.0 % (42.0-52.0) 26.1 % (42.0-52.0) Mean Corpuscular Volume 82 FL (80-99) 84 FL (80-99) Mean Corpuscular Hemoglobin 28.5 PG (27.0-31.0) 28.1 PG (27.0-31.0) Mean Corpuscular Hemoglobin Concent 34.7 G/DL (32.0-36.0) 33.6 G/DL (32.0-36.0) Red Cell Distribution Width 15.9 % (11.6-14.8) 16.3 % (11.6-14.8) Platelet Count 238 K/UL (150-450) 239 K/UL (150-450) Mean Platelet Volume 5.2 FL (6.5-10.1) 5.0 FL (6.5-10.1) Neutrophils (%) (Auto) 84.4 % (45.0-75.0) 80.0 % (45.0-75.0) Lymphocytes (%) (Auto) 8.6 % (20.0-45.0) 10.4 % (20.0-45.0) Monocytes (%) (Auto) 5.4 % (1.0-10.0) 7.3 % (1.0-10.0) Eosinophils (%) (Auto) 1.3 % (0.0-3.0) 1.8 % (0.0-3.0) Basophils (%) (Auto) 0.4 % (0.0-2.0) 0.5 % (0.0-2.0) Sodium Level 152 MMOL/L (136-145) 152 MMOL/L (136-145) Potassium Level 2.4 MMOL/L (3.5-5.1) 3.8 MMOL/L (3.5-5.1) Chloride Level 113 MMOL/L (98-107) 116 MMOL/L (98-107) Carbon Dioxide Level 31 MMOL/L (21-32) 31 MMOL/L (21-32) Anion Gap 8 mmol/L (5-15) 5 mmol/L (5-15) Blood Urea Nitrogen 28 mg/dL (7-18) 24 mg/dL (7-18) Creatinine 1.6 MG/DL (0.55-1.30) 1.5 MG/DL (0.55-1.30) Estimat Glomerular Filtration Rate mL/min (>60) mL/min (>60) Glucose Level 109 MG/DL (74-106) 140 MG/DL (74-106) Calcium Level 12.9 MG/DL (8.5-10.1) 12.5 MG/DL (8.5-10.1) Troponin I 0.030 ng/mL (0.000-0.056) 0.074 ng/mL (0.000-0.056) Arterial Blood pH 7.308 (7.350-7.450) Arterial Blood Partial Pressure CO2 59.9 mmHg (35.0-45.0) Arterial Blood Partial Pressure O2 70.7 mmHg (75.0-100.0) Arterial Blood HCO3 29.3 mmol/L (22.0-26.0) Arterial Blood Oxygen Saturation 92.5 % (95-100) Arterial Blood Base Excess 2.3 (-2-2) Antonio Test Positive Test 04/06/19 17:30 04/07/19 03:10 White Blood Count 12.2 K/UL (4.8-10.8) 14.1 K/UL (4.8-10.8) Red Blood Count 3.03 M/UL (4.70-6.10) 3.25 M/UL (4.70-6.10) Hemoglobin 8.3 G/DL (14.2-18.0) 9.2 G/DL (14.2-18.0) Hematocrit 26.4 % (42.0-52.0) 26.7 % (42.0-52.0) Mean Corpuscular Volume 87 FL (80-99) 82 FL (80-99) Mean Corpuscular Hemoglobin 27.5 PG (27.0-31.0) 28.2 PG (27.0-31.0) Mean Corpuscular Hemoglobin Concent 31.6 G/DL (32.0-36.0) 34.4 G/DL (32.0-36.0) Red Cell Distribution Width 17.1 % (11.6-14.8) 16.5 % (11.6-14.8) Platelet Count 219 K/UL (150-450) 220 K/UL (150-450) Mean Platelet Volume 6.1 FL (6.5-10.1) 4.8 FL (6.5-10.1) Neutrophils (%) (Auto) % (45.0-75.0) 74.7 % (45.0-75.0) Lymphocytes (%) (Auto) % (20.0-45.0) 16.0 % (20.0-45.0) Monocytes (%) (Auto) % (1.0-10.0) 7.0 % (1.0-10.0) Eosinophils (%) (Auto) % (0.0-3.0) 1.9 % (0.0-3.0) Basophils (%) (Auto) % (0.0-2.0) 0.4 % (0.0-2.0) Differential Total Cells Counted 100 Neutrophils % (Manual) 76 % (45-75) Lymphocytes % (Manual) 9 % (20-45) Monocytes % (Manual) 5 % (1-10) Eosinophils % (Manual) 2 % (0-3) Basophils % (Manual) 0 % (0-2) Band Neutrophils 8 % (0-8) Platelet Estimate Adequate Platelet Morphology Normal Hypochromasia 1+ Anisocytosis 1+ Prothrombin Time 11.4 SEC (9.30-11.50) 12.0 SEC (9.30-11.50) Prothromb Time International Ratio 1.1 (0.9-1.1) 1.1 (0.9-1.1) Activated Partial Thromboplast Time 24 SEC (23-33) 27 SEC (23-33) Sodium Level 152 MMOL/L (136-145) 150 MMOL/L (136-145) Potassium Level 3.5 MMOL/L (3.5-5.1) 3.8 MMOL/L (3.5-5.1) Chloride Level 116 MMOL/L (98-107) 113 MMOL/L (98-107) Carbon Dioxide Level 31 MMOL/L (21-32) 29 MMOL/L (21-32) Anion Gap 5 mmol/L (5-15) 8 mmol/L (5-15) Blood Urea Nitrogen 26 mg/dL (7-18) 27 mg/dL (7-18) Creatinine 1.5 MG/DL (0.55-1.30) 1.7 MG/DL (0.55-1.30) Estimat Glomerular Filtration Rate mL/min (>60) mL/min (>60) Glucose Level 132 MG/DL (74-106) 137 MG/DL (74-106) Lactic Acid Level 1.60 mmol/L (0.4-2.0) Calcium Level 11.6 MG/DL (8.5-10.1) 12.4 MG/DL (8.5-10.1) Total Bilirubin 0.3 MG/DL (0.2-1.0) 0.3 MG/DL (0.2-1.0) Aspartate Amino Transf (AST/SGOT) 70 U/L (15-37) 69 U/L (15-37) Alanine Aminotransferase (ALT/SGPT) 25 U/L (12-78) 24 U/L (12-78) Alkaline Phosphatase 75 U/L (46-116) 87 U/L (46-116) Troponin I 0.099 ng/mL (0.000-0.056) 0.088 ng/mL (0.000-0.056) Total Protein 5.9 G/DL (6.4-8.2) 6.5 G/DL (6.4-8.2) Albumin 2.1 G/DL (3.4-5.0) 2.2 G/DL (3.4-5.0) Globulin 3.8 g/dL 4.3 g/dL Albumin/Globulin Ratio 0.6 (1.0-2.7) 0.5 (1.0-2.7) Erythrocyte Sedimentation Rate 118 MM/HR (0-20) C-Reactive Protein, Quantitative 16.0 mg/dL (0.00-0.90) Pro-B-Type Natriuretic Peptide 2544 pg/mL (0-125) Amylase Level 72 U/L (25-115) Lipase 61 U/L (73-393) Thyroid Stimulating Hormone (TSH) 2.727 uiU/mL (0.358-3.740) Free Thyroxine 0.92 NG/DL (0.76-1.46) Height (Feet): 5 Height (Inches): 7.00 Weight (Pounds): 100 Objective General: normal inspection, alert, Chronically Ill Respiratory: s/p vent++ Cardiovascular: regular rate, rhythm, no edema Gastrointestinal: normal inspection, normal bowel sounds Genitourinary: no CVA tenderness Mus: normal inspection, back normal, normal range of motion Neurologic: alert, motor strength/tone normal, oriented + confused Psychiatric: normal inspection, judgement/insight normal Skin: no rash Andreas Monroy MD Apr 07, 2019 07:21
--- NOTE | 2019-04-07 08:12 | Infectious Diseases Prog Note ---
Assessment/Plan Assessment/Plan Abx: Ceftriaxone 04/03- Assessment: s/p asystole cardiac arrest 2/3 VDRF Shock, on dopamine and levophed Sepsis UTI -u/a wbc 20-30, nit +, leuk +3; ucx >100k E.coli (R amp, bactrim; otherwise S) Afebrile Mild leukocytosis, recurrent s/p recent fall LETA Hypokalemia prostate CA stage III chronic indwelling guerra catheter Plan: -Switch empiric Ceftriaxone #5 to ZOsyn and add IV Vancomycin given rise in WBC and pressors requirements -f/u cx -Monitor CBC/CMP, temperatures -aspiration precautions -ETT/ICU care -Cards, renal f/u -repeat cultures Thank you for this consultation. Will continue to follow along with you. Discussed with RN Subjective Respiratory: Reports: shortness of breath Allergies: Coded Allergies: No Known Allergies (Unverified , 04/03/19) Subjective afebrile mild leukocytosis remains intubated in ICU Objective Vital Signs Last 24 Hour Vital Signs Date Time Temp Pulse Resp B/P (MAP) Pulse Ox O2 Delivery O2 Flow Rate FiO2 04/07/19 07:28 85 18 60 04/07/19 07:15 85 18 126/71 (89) 100 04/07/19 07:00 87 18 105/66 (79) 100 04/07/19 06:45 87 19 114/66 (82) 100 04/07/19 06:30 85 18 04/07/19 06:30 92 19 121/78 (92) 100 04/07/19 06:15 103 19 110/72 (85) 100 04/07/19 06:00 99 20 110/68 (82) 100 04/07/19 05:45 92 20 115/63 (80) 100 04/07/19 05:30 89 19 120/67 (84) 99 04/07/19 05:15 92 19 102/60 (74) 100 04/07/19 05:14 101 20 60 04/07/19 05:00 91 19 105/67 (80) 94 04/07/19 04:45 97 20 114/67 (83) 96 04/07/19 04:30 101 20 112/66 (81) 95 04/07/19 04:15 96 22 104/59 (74) 100 04/07/19 04:01 103 34 97/60 (72) 99 04/07/19 04:00 Mechanical Ventilator 04/07/19 04:00 97.7 109 28 91/63 (72) 04/07/19 03:45 119 23 130/80 (97) 97 04/07/19 03:30 123 32 159/81 (107) 91 04/07/19 03:30 136/81 04/07/19 03:15 123 25 136/81 (99) 91 04/07/19 03:03 124 04/07/19 03:00 123 28 189/85 (119) 82 04/07/19 03:00 114/74 04/07/19 02:59 123 27 60 04/07/19 02:45 93 22 114/74 (87) 100 04/07/19 02:30 100 22 119/75 (90) 100 04/07/19 02:20 114/68 04/07/19 02:15 102 26 114/68 (83) 100 04/07/19 02:00 105 20 150/88 (108) 99 04/07/19 02:00 150/88 04/07/19 02:00 150/88 04/07/19 01:45 91 24 138/76 (96) 100 04/07/19 01:30 94 18 131/73 (92) 100 04/07/19 01:15 98 20 136/75 (95) 100 04/07/19 01:00 79 18 139/67 (91) 100 04/07/19 00:53 133/70 04/07/19 00:53 82 18 60 04/07/19 00:45 133/70 04/07/19 00:45 82 18 133/70 (91) 100 04/07/19 00:30 81 18 137/70 (92) 100 04/07/19 00:15 86 18 137/70 (92) 100 04/07/19 00:02 88 04/07/19 00:00 99.5 84 18 137/71 (93) 100 04/07/19 00:00 Mechanical Ventilator 04/06/19 23:45 90 17 132/72 (92) 100 04/06/19 23:30 84 18 134/66 (88) 100 04/06/19 23:15 82 18 126/66 (86) 100 04/06/19 23:08 89 18 60 2 23:03 85 /05/21 23:00 83 17 134/77 (96) 100 04/06/19 22:45 86 18 122/55 (77) 100 04/06/19 22:30 86 18 120/67 (84) 100 20 22:15 90 18 120/61 (80) 100 20 22:00 88 18 107/60 (76) 100 04/06/19 21:45 87 18 120/58 (78) 100 04/06/19 21:30 88 18 114/64 (81) 100 04/06/19 21:15 92 18 112/61 (78) 100 04/06/19 21:03 93 18 60 04/06/19 21:00 94 18 109/57 (74) 100 04/06/19 20:56 97/57 04/06/19 20:45 99 18 97/57 (70) 100 04/06/19 20:30 121 18 112/64 (80) 100 04/06/19 20:15 110 20 101/67 (78) 100 04/06/19 20:00 100 04/06/19 20:00 Mechanical Ventilator 04/06/19 20:00 99.9 112 21 107/66 (80) 100 04/06/19 19:45 112 20 106/54 (71) 100 04/06/19 19:30 123 23 100/42 (61) 100 04/06/19 19:20 112 04/06/19 19:15 113 21 98/58 (71) 100 04/06/19 19:12 113 21 60 04/06/19 19:00 109 20 102/54 (70) 100 20 19:00 99/65 20 19:00 99/65 04/06/19 18:45 109 18 101/56 (71) 100 04/06/19 18:30 114/63 20 18:30 114/43 04/06/19 18:30 127 22 124/99 (107) 100 04/06/19 18:15 111 18 118/54 (75) 100 04/06/19 18:00 112/62 04/06/19 18:00 112/62 04/06/19 18:00 96 18 117/60 (79) 100 04/06/19 17:45 88 18 113/62 (79) 100 04/06/19 17:30 91 18 108/54 (72) 100 04/06/19 17:30 105/43 04/06/19 17:19 92 18 60 04/06/19 17:15 103 18 95/34 (54) 100 04/06/19 17:15 84/37 04/06/19 17:00 110 18 105/38 (60) 98 04/06/19 17:00 91/49 04/06/19 17:00 104/47 04/06/19 16:56 104/47 04/06/19 16:50 99/55 04/06/19 16:45 107 18 99/55 (70) 100 04/06/19 16:30 105 18 102/48 (66) 100 04/06/19 16:15 104 18 100/38 (58) 100 04/06/19 16:00 103 04/06/19 16:00 93/47 04/06/19 16:00 100 04/06/19 16:00 Mechanical Ventilator 04/06/19 16:00 98.6 104 18 93/47 (62) 100 04/06/19 15:45 101 18 96/54 (68) 100 04/06/19 15:30 116 16 83/54 (64) 100 04/06/19 15:20 134 18 100 04/06/19 15:15 89/47 04/06/19 15:15 105 17 101/58 (72) 100 04/06/19 15:00 98 18 87/47 (60) 100 04/06/19 15:00 71/51 04/06/19 14:45 95 18 91/51 (64) 100 04/06/19 14:30 96 18 91/45 (60) 100 04/06/19 14:15 96 18 98/52 (67) 100 04/06/19 14:00 92/55 04/06/19 14:00 94 18 92/44 (60) 100 04/06/19 13:45 95 18 107/57 (74) 100 04/06/19 13:30 98 17 103/60 (74) 100 04/06/19 13:15 103 12 101/60 (74) 100 04/06/19 13:00 104 18 95/58 (70) 100 2/3/20 13:00 96/58 04/06/19 12:58 86 18 100 04/06/19 12:45 85 17 95/57 (70) 100 04/06/19 12:30 89 18 101/57 (72) 100 04/06/19 12:30 86 18 94/62 (73) 100 04/06/19 12:15 87 18 102/57 (72) 100 04/06/19 12:00 97.4 83 18 93/51 (65) 100 04/06/19 12:00 100 04/06/19 12:00 Mechanical Ventilator 04/06/19 12:00 93/58 04/06/19 12:00 110 04/06/19 11:58 97.4 04/06/19 11:45 80 14 100/61 (74) 100 04/06/19 11:30 81 15 76/49 (58) 100 04/06/19 11:30 78/39 04/06/19 11:18 94 14 100 04/06/19 11:00 92 17 91/57 (68) 97 04/06/19 11:00 89/59 04/06/19 10:45 92 17 91/57 (68) 97 04/06/19 10:30 70/54 04/06/19 10:30 86 14 71/54 (60) 04/06/19 10:15 62/26 04/06/19 10:15 92 14 62/26 (38) 99 04/06/19 10:00 101 14 87/59 (68) 97 04/06/19 10:00 82/62 04/06/19 10:00 96.6 04/06/19 09:45 75/53 04/06/19 09:45 91 14 79/50 (60) 100 04/06/19 09:33 89 15 50 04/06/19 09:30 88 20 88/60 (69) 100 04/06/19 09:15 89 15 73/57 (62) 100 04/06/19 09:00 79/57 04/06/19 09:00 91 20 66/49 (55) 100 04/06/19 08:45 67/55 04/06/19 08:30 98 20 66/49 (55) 100 Height (Feet): 5 Height (Inches): 7.00 Weight (Pounds): 100 Objective General Appearance: normal inspection, alert, Chronically Ill Head: atraumatic ENT: normal ENT inspection, normal voice, dry mucus membranes Neck: normal inspection, full range of motion, supple, no bony tend Respiratory: normal inspection, lungs clear, normal breath sounds, no respiratory distress, no retraction, no wheezing Cardiovascular #1: regular rate, rhythm, no edema Gastrointestinal: normal inspection, normal bowel sounds, non tender, soft, no guarding, no hernia Genitourinary: no CVA tenderness Musculoskeletal: normal inspection, back normal, normal range of motion Neurologic: alert, motor strength/tone normal, oriented, motor weakness, responsive, speech normal, other - atrophy to muscles Psychiatric: normal inspection, judgement/insight normal, mood/affect normal Skin: no rash Laboratory Tests Test 04/06/19 10:00 04/06/19 11:00 04/06/19 17:30 04/07/19 03:10 Arterial Blood pH 7.308 (7.350-7.450) Arterial Blood Partial Pressure CO2 59.9 mmHg (35.0-45.0) *H Arterial Blood Partial Pressure O2 70.7 mmHg (75.0-100.0) L Arterial Blood HCO3 29.3 mmol/L (22.0-26.0) H Arterial Blood Oxygen Saturation 92.5 % (95-100) L Arterial Blood Base Excess 2.3 (-2-2) H Antonio Test Positive Troponin I 0.074 ng/mL (0.000-0.056) 0.099 ng/mL (0.000-0.056) 0.088 ng/mL (0.000-0.056) White Blood Count 12.2 K/UL (4.8-10.8) H 14.1 K/UL (4.8-10.8) H Red Blood Count 3.03 M/UL (4.70-6.10) L 3.25 M/UL (4.70-6.10) L Hemoglobin 8.3 G/DL (14.2-18.0) L 9.2 G/DL (14.2-18.0) L Hematocrit 26.4 % (42.0-52.0) L 26.7 % (42.0-52.0) L Mean Corpuscular Volume 87 FL (80-99) 82 FL (80-99) Mean Corpuscular Hemoglobin 27.5 PG (27.0-31.0) 28.2 PG (27.0-31.0) Mean Corpuscular Hemoglobin Concent 31.6 G/DL (32.0-36.0) L 34.4 G/DL (32.0-36.0) Red Cell Distribution Width 17.1 % (11.6-14.8) H 16.5 % (11.6-14.8) H Platelet Count 219 K/UL (150-450) 220 K/UL (150-450) Mean Platelet Volume 6.1 FL (6.5-10.1) L 4.8 FL (6.5-10.1) L Neutrophils (%) (Auto) % (45.0-75.0) 74.7 % (45.0-75.0) Lymphocytes (%) (Auto) % (20.0-45.0) 16.0 % (20.0-45.0) L Monocytes (%) (Auto) % (1.0-10.0) 7.0 % (1.0-10.0) Eosinophils (%) (Auto) % (0.0-3.0) 1.9 % (0.0-3.0) Basophils (%) (Auto) % (0.0-2.0) 0.4 % (0.0-2.0) Differential Total Cells Counted 100 Neutrophils % (Manual) 76 % (45-75) H Lymphocytes % (Manual) 9 % (20-45) L Monocytes % (Manual) 5 % (1-10) Eosinophils % (Manual) 2 % (0-3) Basophils % (Manual) 0 % (0-2) Band Neutrophils 8 % (0-8) Platelet Estimate Adequate Platelet Morphology Normal Hypochromasia 1+ Anisocytosis 1+ Prothrombin Time 11.4 SEC (9.30-11.50) 12.0 SEC (9.30-11.50) H Prothromb Time International Ratio 1.1 (0.9-1.1) 1.1 (0.9-1.1) Activated Partial Thromboplast Time 24 SEC (23-33) 27 SEC (23-33) Sodium Level 152 MMOL/L (136-145) H 150 MMOL/L (136-145) H Potassium Level 3.5 MMOL/L (3.5-5.1) 3.8 MMOL/L (3.5-5.1) Chloride Level 116 MMOL/L (98-107) H 113 MMOL/L (98-107) H Carbon Dioxide Level 31 MMOL/L (21-32) 29 MMOL/L (21-32) Anion Gap 5 mmol/L (5-15) 8 mmol/L (5-15) Blood Urea Nitrogen 26 mg/dL (7-18) H 27 mg/dL (7-18) H Creatinine 1.5 MG/DL (0.55-1.30) H 1.7 MG/DL (0.55-1.30) H Estimat Glomerular Filtration Rate mL/min (>60) mL/min (>60) Glucose Level 132 MG/DL (74-106) H 137 MG/DL (74-106) H Lactic Acid Level 1.60 mmol/L (0.4-2.0) Calcium Level 11.6 MG/DL (8.5-10.1) H 12.4 MG/DL (8.5-10.1) H Total Bilirubin 0.3 MG/DL (0.2-1.0) 0.3 MG/DL (0.2-1.0) Aspartate Amino Transf (AST/SGOT) 70 U/L (15-37) H 69 U/L (15-37) H Alanine Aminotransferase (ALT/SGPT) 25 U/L (12-78) 24 U/L (12-78) Alkaline Phosphatase 75 U/L (46-116) 87 U/L (46-116) Total Protein 5.9 G/DL (6.4-8.2) L 6.5 G/DL (6.4-8.2) Albumin 2.1 G/DL (3.4-5.0) L 2.2 G/DL (3.4-5.0) L Globulin 3.8 g/dL 4.3 g/dL Albumin/Globulin Ratio 0.6 (1.0-2.7) L 0.5 (1.0-2.7) L Erythrocyte Sedimentation Rate 118 MM/HR (0-20) H C-Reactive Protein, Quantitative 16.0 mg/dL (0.00-0.90) H Pro-B-Type Natriuretic Peptide 2544 pg/mL (0-125) H Amylase Level 72 U/L (25-115) Lipase 61 U/L (73-393) L Thyroid Stimulating Hormone (TSH) 2.727 uiU/mL (0.358-3.740) Free Thyroxine 0.92 NG/DL (0.76-1.46) Current Medications Medications (Trade) Dose Ordered Sig/[place] Route PRN Reason Start Time Stop Time Status Last Admin Dose Admin Albuterol/ Ipratropium (Albuterol/ Ipratropium) 3 ml EVERY 6 HOURS PRN HHN Shortness of Breath 04/06/19 12:00 04/10/19 06:29 Calcitonin [place] (Miacalcin) 1 sprays BID NASAL 04/06/19 09:00 05/04/19 09:29 Ceftriaxone Sodium 1 gm/ Dextrose 55 ml @ 110 mls/hr Q24H IVPB 04/06/19 20:00 04/11/19 19:59 04/06/19 20:18 Chlorhexidine Gluconate (Martha-Hex 2%) 1 applic DAILY@2000 TOPIC 04/06/19 20:00 05/06/19 19:59 04/06/19 20:18 Dextrose/ Electrolytes 1,000 ml @ 75 mls/hr [id number] IV 04/06/19 08:15 05/05/19 12:59 04/06/19 20:55 Dopamine HCl/ Dextrose 250 ml @ 0 mls/hr Q24H IV 04/06/19 08:15 05/06/19 08:14 04/06/19 20:56 Enoxaparin Sodium (Lovenox) 30 mg DAILY SUBQ 04/06/19 09:00 05/04/19 08:59 Memantine (Namenda) 5 mg BID ORAL 04/06/19 09:00 05/04/19 17:59 Norepinephrine Bitartrate 4 mg/ Dextrose 250 ml @ 0 mls/hr Q24H IV 04/06/19 16:17 05/06/19 16:16 04/07/19 00:53 Sertraline HCl (Zoloft) 25 mg DAILY ORAL 04/06/19 09:00 05/05/19 08:59 Rafia Nielson M.D. Apr 07, 2019 08:12
--- NOTE | 2019-04-07 08:30 | NUR ---
NURSE NOTES: Titrate down to Levophed at 2mcg/min for BP 117/61. Afebrile. Continued bilateral soft wrist restraints.
[2019-04-07] MEDS: Enoxaparin 30mg Inj SUBQ SCH (09:00)
[2019-04-07] MEDS ORDERED: Vancomycin 1gm/D5W 275ml IVPB ONE ×2 (09:00)
[2019-04-07] MEDS: Sertraline 50mg tab ORAL SCH (09:15)
[2019-04-07] MEDS: Memantine 5 MG TAB ORAL SCH ×2 (09:15→17:48)
--- NOTE | 2019-04-07 09:32 | NUR ---
NURSE NOTES: Lovenox held due to bloody emesis from NGT.
--- NOTE | 2019-04-07 10:02 | Nephrology Progress Note ---
Assessment/Plan Status: unchanged Assessment/Plan: A/P 1. LETA. secondary to dehydration from hypercalcemia/ischemic ATN post arrest - Cr 1.7. Monitor 2. Prostate cancer with tremendously elevated PSA 800 Defer to Hematology/Oncology. Family to decide on Hospice 3. Hypokalemia. corrected 4. Sepsis and UTI per Infectious Disease. - IV pressors and Abx 5. Hypernatremia secondary to dehydration. Continue D5W 6. S/P Cardiac Arrest- intubated Subjective Date patient seen: Apr 07, 2019 Time patient seen: 09:58 ROS Limited/Unobtainable: Yes Allergies: Coded Allergies: No Known Allergies (Unverified , 04/03/19) Subjective Patient status post cardiac arrest remains intubated on the vent Objective Last 24 Hour Vital Signs Date Time Temp Pulse Resp B/P (MAP) Pulse Ox O2 Delivery O2 Flow Rate FiO2 04/07/19 09:30 88 18 113/66 (82) 100 04/07/19 09:15 85 18 111/63 (79) 100 04/07/19 09:13 100 04/07/19 09:00 86 18 111/59 (76) 100 04/07/19 08:45 88 18 118/61 (80) 100 04/07/19 08:35 85 18 60 04/07/19 08:30 88 18 116/71 (86) 100 04/07/19 08:00 94 04/07/19 08:00 Mechanical Ventilator 04/07/19 08:00 91 18 111/66 (81) 100 04/07/19 07:30 98.1 83 18 114/66 (82) 100 04/07/19 07:28 85 18 60 04/07/19 07:15 85 18 126/71 (89) 100 04/07/19 07:00 87 18 105/66 (79) 100 04/07/19 06:45 87 19 114/66 (82) 100 04/07/19 06:30 85 18 04/07/19 06:30 92 19 121/78 (92) 100 04/07/19 06:15 103 19 110/72 (85) 100 04/07/19 06:00 99 20 110/68 (82) 100 04/07/19 05:45 92 20 115/63 (80) 100 04/07/19 05:30 89 19 120/67 (84) 99 04/07/19 05:15 92 19 102/60 (74) 100 04/07/19 05:14 101 20 60 04/07/19 05:00 91 19 105/67 (80) 94 04/07/19 04:45 97 20 114/67 (83) 96 04/07/19 04:30 101 20 112/66 (81) 95 04/07/19 04:15 96 22 104/59 (74) 100 04/07/19 04:01 103 34 97/60 (72) 99 04/07/19 04:00 Mechanical Ventilator 04/07/19 04:00 97.7 109 28 91/63 (72) 04/07/19 03:45 119 23 130/80 (97) 97 04/07/19 03:30 123 32 159/81 (107) 91 04/07/19 03:30 136/81 04/07/19 03:15 123 25 136/81 (99) 91 04/07/19 03:03 124 04/07/19 03:00 123 28 189/85 (119) 82 04/07/19 03:00 114/74 04/07/19 02:59 123 27 60 04/07/19 02:45 93 22 114/74 (87) 100 04/07/19 02:30 100 22 119/75 (90) 100 04/07/19 02:20 114/68 04/07/19 02:15 102 26 114/68 (83) 100 04/07/19 02:00 105 20 150/88 (108) 99 04/07/19 02:00 150/88 04/07/19 02:00 150/88 04/07/19 01:45 91 24 138/76 (96) 100 04/07/19 01:30 94 18 131/73 (92) 100 04/07/19 01:15 98 20 136/75 (95) 100 04/07/19 01:00 79 18 139/67 (91) 100 04/07/19 00:53 133/70 04/07/19 00:53 82 18 60 04/07/19 00:45 133/70 04/07/19 00:45 82 18 133/70 (91) 100 04/07/19 00:30 81 18 137/70 (92) 100 04/07/19 00:15 86 18 137/70 (92) 100 04/07/19 00:02 88 04/07/19 00:00 99.5 84 18 137/71 (93) 100 04/07/19 00:00 Mechanical Ventilator 04/06/19 23:45 90 17 132/72 (92) 100 04/06/19 23:30 84 18 134/66 (88) 100 04/06/19 23:15 82 18 126/66 (86) 100 04/06/19 23:08 89 18 60 04/06/19 23:03 85 04/06/19 23:00 83 17 134/77 (96) 100 04/06/19 22:45 86 18 122/55 (77) 100 04/06/19 22:30 86 18 120/67 (84) 100 04/06/19 22:15 90 18 120/61 (80) 100 04/06/19 22:00 88 18 107/60 (76) 100 04/06/19 21:45 87 18 120/58 (78) 100 04/06/19 21:30 88 18 114/64 (81) 100 04/06/19 21:15 92 18 112/61 (78) 100 04/06/19 21:03 93 18 60 04/06/19 21:00 94 18 109/57 (74) 100 04/06/19 20:56 97/57 04/06/19 20:45 99 18 97/57 (70) 100 04/06/19 20:30 121 18 112/64 (80) 100 04/06/19 20:15 110 20 101/67 (78) 100 04/06/19 20:00 100 04/06/19 20:00 Mechanical Ventilator 04/06/19 20:00 99.9 112 21 107/66 (80) 100 04/06/19 19:45 112 20 106/54 (71) 100 04/06/19 19:30 123 23 100/42 (61) 100 04/06/19 19:20 112 04/06/19 19:15 113 21 98/58 (71) 100 20 19:12 113 21 60 04/06/19 19:00 109 20 102/54 (70) 100 04/06/19 19:00 99/65 04/06/19 19:00 99/65 2/3/20 18:45 109 18 101/56 (71) 100 220 18:30 114/63 2//20 18:30 114/43 220 18:30 127 22 124/99 (107) 100 20 18:15 111 18 118/54 (75) 100 04/06/20 18:00 112/62 220 18:00 112/62 20 18:00 96 18 117/60 (79) 100 20 17:45 88 18 113/62 (79) 100 20 17:30 91 18 108/54 (72) 100 04/06/19 17:30 105/43 04/06/19 17:19 92 18 60 04/06/19 17:15 103 18 95/34 (54) 100 04/06/19 17:15 84/37 04/06/19 17:00 110 18 105/38 (60) 98 04/06/20 17:00 91/49 04/06/19 17:00 104/47 04/06/19 16:56 104/47 04/06/19 16:50 99/55 04/06/19 16:45 107 18 99/55 (70) 100 04/06/19 16:30 105 18 102/48 (66) 100 04/06/19 16:15 104 18 100/38 (58) 100 04/06/19 16:00 103 04/06/19 16:00 93/47 04/06/19 16:00 100 04/06/19 16:00 Mechanical Ventilator 04/06/19 16:00 98.6 104 18 93/47 (62) 100 20 15:45 101 18 96/54 (68) 100 20 15:30 116 16 83/54 (64) 100 20 15:20 134 18 100 20 15:15 89/47 220 15:15 105 17 101/58 (72) 100 20 15:00 98 18 87/47 (60) 100 20 15:00 71/51 2//20 14:45 95 18 91/51 (64) 100 20 14:30 96 18 91/45 (60) 100 2/3/20 14:15 96 18 98/52 (67) 100 04/06/19 14:00 92/55 04/06/19 14:00 94 18 92/44 (60) 100 04/06/19 13:45 95 18 107/57 (74) 100 04/06/19 13:30 98 17 103/60 (74) 100 04/06/19 13:15 103 12 101/60 (74) 100 04/06/19 13:00 104 18 95/58 (70) 100 04/06/19 13:00 96/58 04/06/19 12:58 86 18 100 04/06/19 12:45 85 17 95/57 (70) 100 04/06/19 12:30 89 18 101/57 (72) 100 04/06/19 12:30 86 18 94/62 (73) 100 04/06/19 12:15 87 18 102/57 (72) 100 04/06/19 12:00 97.4 83 18 93/51 (65) 100 04/06/19 12:00 100 04/06/19 12:00 Mechanical Ventilator 04/06/19 12:00 93/58 04/06/19 12:00 110 04/06/19 11:58 97.4 04/06/19 11:45 80 14 100/61 (74) 100 04/06/19 11:30 81 15 76/49 (58) 100 04/06/19 11:30 78/39 04/06/19 11:18 94 14 100 04/06/19 11:00 92 17 91/57 (68) 97 04/06/19 11:00 89/59 04/06/19 10:45 92 17 91/57 (68) 97 04/06/19 10:30 70/54 04/06/19 10:30 86 14 71/54 (60) 04/06/19 10:15 62/26 04/06/19 10:15 92 14 62/26 (38) 99 04/06/19 10:00 101 14 87/59 (68) 97 04/06/19 10:00 82/62 04/06/19 10:00 96.6 Intake and Output 04/06/19 04/07/19 19:00 07:00 Intake Total 1021.9655 ml 1255.904 ml Output Total 955 ml 350 ml Balance 66.9655 ml 905.904 ml IV Total 1021.9655 ml 1255.904 ml Output Urine Total 805 ml 350 ml Gastric Drainage Total 150 ml # Bowel Movements 1 2 Laboratory Tests 04/06/19 10:00: Arterial Blood pH 7.308L, Arterial Blood Partial Pressure CO2 59.9*H, Arterial Blood Partial Pressure O2 70.7L, Arterial Blood HCO3 29.3H, Arterial Blood Oxygen Saturation 92.5L, Arterial Blood Base Excess 2.3H, Antonio Test Positive 04/06/19 11:00: Troponin I 0.074H 04/06/19 17:30: Troponin I 0.099H, White Blood Count 12.2H, Red Blood Count 3.03L, Hemoglobin 8.3L, Hematocrit 26.4L, Mean Corpuscular Volume 87, Mean Corpuscular Hemoglobin 27.5, Mean Corpuscular Hemoglobin Concent 31.6L, Red Cell Distribution Width 17.1H, Platelet Count 219, Mean Platelet Volume 6.1L, Neutrophils (%) (Auto) , Lymphocytes (%) (Auto) , Monocytes (%) (Auto) , Eosinophils (%) (Auto) , Basophils (%) (Auto) , Differential Total Cells Counted 100, Neutrophils % ( Manual) 76H, Lymphocytes % (Manual) 9L, Monocytes % (Manual) 5, Eosinophils % ( Manual) 2, Basophils % (Manual) 0, Band Neutrophils 8, Platelet Estimate Adequate, Platelet Morphology Normal, Hypochromasia 1+, Anisocytosis 1+, Prothrombin Time 11.4, Prothromb Time International Ratio 1.1, Activated Partial Thromboplast Time 24, Sodium Level 152H, Potassium Level 3.5, Chloride Level 116H, Carbon Dioxide Level 31, Anion Gap 5, Blood Urea Nitrogen 26H, Creatinine 1.5H, Estimat Glomerular Filtration Rate , Glucose Level 132H, Lactic Acid Level 1.60, Calcium Level 11.6H, Total Bilirubin 0.3, Aspartate Amino Transf (AST/SGOT) 70H, Alanine Aminotransferase (ALT/SGPT) 25, Alkaline Phosphatase 75, Total Protein 5.9L, Albumin 2.1L, Globulin 3.8, Albumin/ Globulin Ratio 0.6L 04/07/19 03:10: Troponin I 0.088H, White Blood Count 14.1H, Red Blood Count 3.25L, Hemoglobin 9.2L, Hematocrit 26.7L, Mean Corpuscular Volume 82, Mean Corpuscular Hemoglobin 28.2, Mean Corpuscular Hemoglobin Concent 34.4, Red Cell Distribution Width 16.5H, Platelet Count 220, Mean Platelet Volume 4.8L, Neutrophils (%) (Auto) 74.7, Lymphocytes (%) (Auto) 16.0L, Monocytes (%) (Auto) 7.0, Eosinophils (%) ( Auto) 1.9, Basophils (%) (Auto) 0.4, Prothrombin Time 12.0H, Prothromb Time International Ratio 1.1, Activated Partial Thromboplast Time 27, Sodium Level 150H, Potassium Level 3.8, Chloride Level 113H, Carbon Dioxide Level 29, Anion Gap 8, Blood Urea Nitrogen 27H, Creatinine 1.7H, Estimat Glomerular Filtration Rate , Glucose Level 137H, Calcium Level 12.4H, Total Bilirubin 0.3, Aspartate Amino Transf (AST/SGOT) 69H, Alanine Aminotransferase (ALT/SGPT) 24, Alkaline Phosphatase 87, Total Protein 6.5, Albumin 2.2L, Globulin 4.3, Albumin/Globulin Ratio 0.5L, Erythrocyte Sedimentation Rate 118H, C-Reactive Protein, Quantitative 16.0H, Pro-B-Type Natriuretic Peptide 2544H, Amylase Level 72, Lipase 61L, Thyroid Stimulating Hormone (TSH) 2.727, Free Thyroxine 0.92 Height (Feet): 5 Height (Inches): 7.00 Weight (Pounds): 100 General Appearance: other - intubated EENT: normal ENT inspection Neck: normal alignment, supple Cardiovascular: normal rate, regular rhythm Respiratory/Chest: rhonchi - bilaterally Abdomen: non tender, soft Edema: no edema noted Arm (L), no edema noted Arm (R), no edema noted Leg (L), no edema noted Leg (R), no edema noted Pedal (L), no edema noted Pedal (R), no edema noted Generalized Carlos White MD Apr 07, 2019 10:02
--- NOTE | 2019-04-07 10:05 | Cardiac Electrophysiology PN ---
Assessment/Plan Assessment/Plan 1. Status post bradycardic arrest with asystole. No evidence of ventricular tachycardia or ventricular fibrillation. Could be secondary to respiratory arrest. Clonidine was discontinued. EF 65%. No further juan antonio episodes. All 3 troponins were less than 0.1 2. Respiratory failure, intubated on the ventilator. 3. History of stage III prostate cancer, followed by Dr. Monroy. 4. Hypotension on Levophed on iv Abx 5. Hypercalcemia due to prostate cancer. 6. Hypernatremia. The patient is on IV fluids. D WRN Subjective Subjective S/P asystole on P2 yesterday. Intubated and resuscitated.In ICU on Levophed 3 mcg and Vent. Waking up. Objective Last 24 Hour Vital Signs Date Time Temp Pulse Resp B/P (MAP) Pulse Ox O2 Delivery O2 Flow Rate FiO2 04/07/19 09:30 88 18 113/66 (82) 100 04/07/19 09:15 85 18 111/63 (79) 100 04/07/19 09:13 100 04/07/19 09:00 86 18 111/59 (76) 100 04/07/19 08:45 88 18 118/61 (80) 100 04/07/19 08:35 85 18 60 04/07/19 08:30 88 18 116/71 (86) 100 04/07/19 08:00 94 04/07/19 08:00 Mechanical Ventilator 04/07/19 08:00 91 18 111/66 (81) 100 04/07/19 07:30 98.1 83 18 114/66 (82) 100 04/07/19 07:28 85 18 60 04/07/19 07:15 85 18 126/71 (89) 100 04/07/19 07:00 87 18 105/66 (79) 100 04/07/19 06:45 87 19 114/66 (82) 100 04/07/19 06:30 85 18 04/07/19 06:30 92 19 121/78 (92) 100 04/07/19 06:15 103 19 110/72 (85) 100 04/07/19 06:00 99 20 110/68 (82) 100 04/07/19 05:45 92 20 115/63 (80) 100 04/07/19 05:30 89 19 120/67 (84) 99 04/07/19 05:15 92 19 102/60 (74) 100 04/07/19 05:14 101 20 60 04/07/19 05:00 91 19 105/67 (80) 94 04/07/19 04:45 97 20 114/67 (83) 96 04/07/19 04:30 101 20 112/66 (81) 95 04/07/19 04:15 96 22 104/59 (74) 100 04/07/19 04:01 103 34 97/60 (72) 99 04/07/19 04:00 Mechanical Ventilator 04/07/19 04:00 97.7 109 28 91/63 (72) 04/07/19 03:45 119 23 130/80 (97) 97 04/07/19 03:30 123 32 159/81 (107) 91 04/07/19 03:30 136/81 04/07/19 03:15 123 25 136/81 (99) 91 04/07/19 03:03 124 04/07/19 03:00 123 28 189/85 (119) 82 04/07/19 03:00 114/74 04/07/19 02:59 123 27 60 04/07/19 02:45 93 22 114/74 (87) 100 04/07/19 02:30 100 22 119/75 (90) 100 04/07/19 02:20 114/68 04/07/19 02:15 102 26 114/68 (83) 100 04/07/19 02:00 105 20 150/88 (108) 99 04/07/19 02:00 150/88 04/07/19 02:00 150/88 04/07/19 01:45 91 24 138/76 (96) 100 04/07/19 01:30 94 18 131/73 (92) 100 04/07/19 01:15 98 20 136/75 (95) 100 04/07/19 01:00 79 18 139/67 (91) 100 04/07/19 00:53 133/70 04/07/19 00:53 82 18 60 04/07/19 00:45 133/70 04/07/19 00:45 82 18 133/70 (91) 100 04/07/19 00:30 81 18 137/70 (92) 100 04/07/19 00:15 86 18 137/70 (92) 100 04/07/19 00:02 88 04/07/19 00:00 99.5 84 18 137/71 (93) 100 04/07/19 00:00 Mechanical Ventilator 04/06/19 23:45 90 17 132/72 (92) 100 04/06/19 23:30 84 18 134/66 (88) 100 04/06/19 23:15 82 18 126/66 (86) 100 04/06/19 23:08 89 18 60 04/06/19 23:03 85 04/06/19 23:00 83 17 134/77 (96) 100 04/06/19 22:45 86 18 122/55 (77) 100 04/06/19 22:30 86 18 120/67 (84) 100 04/06/19 22:15 90 18 120/61 (80) 100 04/06/19 22:00 88 18 107/60 (76) 100 04/06/19 21:45 87 18 120/58 (78) 100 04/06/19 21:30 88 18 114/64 (81) 100 04/06/19 21:15 92 18 112/61 (78) 100 04/06/19 21:03 93 18 60 04/06/19 21:00 94 18 109/57 (74) 100 04/06/19 20:56 97/57 04/06/19 20:45 99 18 97/57 (70) 100 04/06/19 20:30 121 18 112/64 (80) 100 04/06/19 20:15 110 20 101/67 (78) 100 04/06/19 20:00 100 04/06/19 20:00 Mechanical Ventilator 04/06/19 20:00 99.9 112 21 107/66 (80) 100 04/06/19 19:45 112 20 106/54 (71) 100 04/06/19 19:30 123 23 100/42 (61) 100 04/06/19 19:20 112 04/06/19 19:15 113 21 98/58 (71) 100 04/06/19 19:12 113 21 60 04/06/19 19:00 109 20 102/54 (70) 100 04/06/19 19:00 99/65 2 19:00 99/65 04/06/19 18:45 109 18 101/56 (71) 100 04/06/19 18:30 114/63 2//20 18:30 114/43 2/20 18:30 127 22 124/99 (107) 100 04/06/19 18:15 111 18 118/54 (75) 100 /20 18:00 112/62 220 18:00 112/62 20 18:00 96 18 117/60 (79) 100 20 17:45 88 18 113/62 (79) 100 20 17:30 91 18 108/54 (72) 100 04/06/19 17:30 105/43 04/06/19 17:19 92 18 60 04/06/19 17:15 103 18 95/34 (54) 100 04/06/19 17:15 84/37 04/06/19 17:00 110 18 105/38 (60) 98 04/06/19 17:00 91/49 04/06/19 17:00 104/47 04/06/19 16:56 104/47 04/06/19 16:50 99/55 04/06/19 16:45 107 18 99/55 (70) 100 04/06/19 16:30 105 18 102/48 (66) 100 04/06/19 16:15 104 18 100/38 (58) 100 04/06/19 16:00 103 04/06/19 16:00 93/47 04/06/19 16:00 100 04/06/19 16:00 Mechanical Ventilator 04/06/19 16:00 98.6 104 18 93/47 (62) 100 04/06/19 15:45 101 18 96/54 (68) 100 20 15:30 116 16 83/54 (64) 100 20 15:20 134 18 100 04/06/19 15:15 89/47 20 15:15 105 17 101/58 (72) 100 04/06/19 15:00 98 18 87/47 (60) 100 20 15:00 71/51 2//20 14:45 95 18 91/51 (64) 100 /20 14:30 96 18 91/45 (60) 100 20 14:15 96 18 98/52 (67) 100 04/06/19 14:00 92/55 04/06/19 14:00 94 18 92/44 (60) 100 04/06/19 13:45 95 18 107/57 (74) 100 04/06/19 13:30 98 17 103/60 (74) 100 04/06/19 13:15 103 12 101/60 (74) 100 04/06/19 13:00 104 18 95/58 (70) 100 04/06/19 13:00 96/58 04/06/19 12:58 86 18 100 04/06/19 12:45 85 17 95/57 (70) 100 04/06/19 12:30 89 18 101/57 (72) 100 04/06/19 12:30 86 18 94/62 (73) 100 04/06/19 12:15 87 18 102/57 (72) 100 04/06/19 12:00 97.4 83 18 93/51 (65) 100 04/06/19 12:00 100 04/06/19 12:00 Mechanical Ventilator 04/06/19 12:00 93/58 04/06/19 12:00 110 04/06/19 11:58 97.4 04/06/19 11:45 80 14 100/61 (74) 100 04/06/19 11:30 81 15 76/49 (58) 100 04/06/19 11:30 78/39 04/06/19 11:18 94 14 100 04/06/19 11:00 92 17 91/57 (68) 97 04/06/19 11:00 89/59 04/06/19 10:45 92 17 91/57 (68) 97 04/06/19 10:30 70/54 04/06/19 10:30 86 14 71/54 (60) 04/06/19 10:15 62/26 04/06/19 10:15 92 14 62/26 (38) 99 Intake and Output 04/06/19 04/07/19 19:00 07:00 Intake Total 1021.9655 ml 1255.904 ml Output Total 955 ml 350 ml Balance 66.9655 ml 905.904 ml IV Total 1021.9655 ml 1255.904 ml Output Urine Total 805 ml 350 ml Gastric Drainage Total 150 ml # Bowel Movements 1 2 Laboratory Tests Test 04/06/19 11:00 04/06/19 17:30 04/07/19 03:10 Troponin I 0.074 ng/mL (0.000-0.056) 0.099 ng/mL (0.000-0.056) 0.088 ng/mL (0.000-0.056) White Blood Count 12.2 K/UL (4.8-10.8) H 14.1 K/UL (4.8-10.8) H Red Blood Count 3.03 M/UL (4.70-6.10) L 3.25 M/UL (4.70-6.10) L Hemoglobin 8.3 G/DL (14.2-18.0) L 9.2 G/DL (14.2-18.0) L Hematocrit 26.4 % (42.0-52.0) L 26.7 % (42.0-52.0) L Mean Corpuscular Volume 87 FL (80-99) 82 FL (80-99) Mean Corpuscular Hemoglobin 27.5 PG (27.0-31.0) 28.2 PG (27.0-31.0) Mean Corpuscular Hemoglobin Concent 31.6 G/DL (32.0-36.0) L 34.4 G/DL (32.0-36.0) Red Cell Distribution Width 17.1 % (11.6-14.8) H 16.5 % (11.6-14.8) H Platelet Count 219 K/UL (150-450) 220 K/UL (150-450) Mean Platelet Volume 6.1 FL (6.5-10.1) L 4.8 FL (6.5-10.1) L Neutrophils (%) (Auto) % (45.0-75.0) 74.7 % (45.0-75.0) Lymphocytes (%) (Auto) % (20.0-45.0) 16.0 % (20.0-45.0) L Monocytes (%) (Auto) % (1.0-10.0) 7.0 % (1.0-10.0) Eosinophils (%) (Auto) % (0.0-3.0) 1.9 % (0.0-3.0) Basophils (%) (Auto) % (0.0-2.0) 0.4 % (0.0-2.0) Differential Total Cells Counted 100 Neutrophils % (Manual) 76 % (45-75) H Lymphocytes % (Manual) 9 % (20-45) L Monocytes % (Manual) 5 % (1-10) Eosinophils % (Manual) 2 % (0-3) Basophils % (Manual) 0 % (0-2) Band Neutrophils 8 % (0-8) Platelet Estimate Adequate Platelet Morphology Normal Hypochromasia 1+ Anisocytosis 1+ Prothrombin Time 11.4 SEC (9.30-11.50) 12.0 SEC (9.30-11.50) H Prothromb Time International Ratio 1.1 (0.9-1.1) 1.1 (0.9-1.1) Activated Partial Thromboplast Time 24 SEC (23-33) 27 SEC (23-33) Sodium Level 152 MMOL/L (136-145) H 150 MMOL/L (136-145) H Potassium Level 3.5 MMOL/L (3.5-5.1) 3.8 MMOL/L (3.5-5.1) Chloride Level 116 MMOL/L (98-107) H 113 MMOL/L (98-107) H Carbon Dioxide Level 31 MMOL/L (21-32) 29 MMOL/L (21-32) Anion Gap 5 mmol/L (5-15) 8 mmol/L (5-15) Blood Urea Nitrogen 26 mg/dL (7-18) H 27 mg/dL (7-18) H Creatinine 1.5 MG/DL (0.55-1.30) H 1.7 MG/DL (0.55-1.30) H Estimat Glomerular Filtration Rate mL/min (>60) mL/min (>60) Glucose Level 132 MG/DL (74-106) H 137 MG/DL (74-106) H Lactic Acid Level 1.60 mmol/L (0.4-2.0) Calcium Level 11.6 MG/DL (8.5-10.1) H 12.4 MG/DL (8.5-10.1) H Total Bilirubin 0.3 MG/DL (0.2-1.0) 0.3 MG/DL (0.2-1.0) Aspartate Amino Transf (AST/SGOT) 70 U/L (15-37) H 69 U/L (15-37) H Alanine Aminotransferase (ALT/SGPT) 25 U/L (12-78) 24 U/L (12-78) Alkaline Phosphatase 75 U/L (46-116) 87 U/L (46-116) Total Protein 5.9 G/DL (6.4-8.2) L 6.5 G/DL (6.4-8.2) Albumin 2.1 G/DL (3.4-5.0) L 2.2 G/DL (3.4-5.0) L Globulin 3.8 g/dL 4.3 g/dL Albumin/Globulin Ratio 0.6 (1.0-2.7) L 0.5 (1.0-2.7) L Erythrocyte Sedimentation Rate 118 MM/HR (0-20) H C-Reactive Protein, Quantitative 16.0 mg/dL (0.00-0.90) H Pro-B-Type Natriuretic Peptide 2544 pg/mL (0-125) H Amylase Level 72 U/L (25-115) Lipase 61 U/L (73-393) L Thyroid Stimulating Hormone (TSH) 2.727 uiU/mL (0.358-3.740) Free Thyroxine 0.92 NG/DL (0.76-1.46) Objective HEENT: Orally intubated with NG tube in LUNGS: Coarse rhonchi. CARDIOVASCULAR: Regular S1 and S2 and tachycardic. ABDOMEN: Soft and nondistended. EXTREMITIES: No pitting edema. Nain Cortez MD Apr 07, 2019 10:05
--- NOTE | 2019-04-07 10:25 | Pulmonology Progress Note ---
Assessment/Plan Assessment/Plan IMPRESSION: 1. Status post asystolic cardiac arrest. 2. Respiratory failure, on AC mode. 3. Altered mental status. 4. Hypernatremia. 5. Hypokalemia . 6. History of COPD. 7. Prostate CA. DISCUSSION: 1. Discussed with bedside nursing. 2. Discussed also with the patient's daughter, Amy, over the phone, yesterday, 3. Discussed with Dr. Sawyer Toussaint. 4. The patient at this time needs assist control mechanical ventilation. 5. I will check ABG. 6. I will continue vent as is. 7. The patient's family is requesting transfer to contracted facility. Currently, he is on levophed and intubated; therefore, transfer will not be possible till he is more stable. 8. Continue medications. 9. I will follow carefully. Ganesh Mathews M.D. Subjective Interval Events: None new; off dopamine; on levophed Constitutional: Reports: no symptoms HEENT: Repors: no symptoms Respiratory: Reports: no symptoms Cardiovascular: Reports: no symptoms Gastrointestinal/Abdominal: Reports: no symptoms Genitourinary: Reports: no symptoms Allergies: Coded Allergies: No Known Allergies (Unverified , 04/03/19) Objective Last 24 Hour Vital Signs Date Time Temp Pulse Resp B/P (MAP) Pulse Ox O2 Delivery O2 Flow Rate FiO2 04/07/19 09:30 88 18 113/66 (82) 100 04/07/19 09:15 85 18 111/63 (79) 100 04/07/19 09:13 100 04/07/19 09:00 86 18 111/59 (76) 100 04/07/19 08:45 88 18 118/61 (80) 100 04/07/19 08:35 85 18 60 04/07/19 08:30 88 18 116/71 (86) 100 04/07/19 08:00 94 04/07/19 08:00 Mechanical Ventilator 04/07/19 08:00 91 18 111/66 (81) 100 04/07/19 07:30 98.1 83 18 114/66 (82) 100 04/07/19 07:28 85 18 60 04/07/19 07:15 85 18 126/71 (89) 100 04/07/19 07:00 87 18 105/66 (79) 100 04/07/19 06:45 87 19 114/66 (82) 100 04/07/19 06:30 85 18 04/07/19 06:30 92 19 121/78 (92) 100 04/07/19 06:15 103 19 110/72 (85) 100 04/07/19 06:00 99 20 110/68 (82) 100 04/07/19 05:45 92 20 115/63 (80) 100 04/07/19 05:30 89 19 120/67 (84) 99 04/07/19 05:15 92 19 102/60 (74) 100 04/07/19 05:14 101 20 60 04/07/19 05:00 91 19 105/67 (80) 94 04/07/19 04:45 97 20 114/67 (83) 96 04/07/19 04:30 101 20 112/66 (81) 95 04/07/19 04:15 96 22 104/59 (74) 100 04/07/19 04:01 103 34 97/60 (72) 99 04/07/19 04:00 Mechanical Ventilator 04/07/19 04:00 97.7 109 28 91/63 (72) 04/07/19 03:45 119 23 130/80 (97) 97 04/07/19 03:30 123 32 159/81 (107) 91 04/07/19 03:30 136/81 04/07/19 03:15 123 25 136/81 (99) 91 04/07/19 03:03 124 04/07/19 03:00 123 28 189/85 (119) 82 04/07/19 03:00 114/74 04/07/19 02:59 123 27 60 04/07/19 02:45 93 22 114/74 (87) 100 04/07/19 02:30 100 22 119/75 (90) 100 04/07/19 02:20 114/68 04/07/19 02:15 102 26 114/68 (83) 100 04/07/19 02:00 105 20 150/88 (108) 99 04/07/19 02:00 150/88 04/07/19 02:00 150/88 04/07/19 01:45 91 24 138/76 (96) 100 04/07/19 01:30 94 18 131/73 (92) 100 04/07/19 01:15 98 20 136/75 (95) 100 04/07/19 01:00 79 18 139/67 (91) 100 04/07/19 00:53 133/70 04/07/19 00:53 82 18 60 04/07/19 00:45 133/70 04/07/19 00:45 82 18 133/70 (91) 100 04/07/19 00:30 81 18 137/70 (92) 100 04/07/19 00:15 86 18 137/70 (92) 100 04/07/19 00:02 88 04/07/19 00:00 99.5 84 18 137/71 (93) 100 04/07/19 00:00 Mechanical Ventilator 04/06/19 23:45 90 17 132/72 (92) 100 04/06/19 23:30 84 18 134/66 (88) 100 04/06/19 23:15 82 18 126/66 (86) 100 04/06/19 23:08 89 18 60 04/06/19 23:03 85 04/06/19 23:00 83 17 134/77 (96) 100 04/06/19 22:45 86 18 122/55 (77) 100 04/06/19 22:30 86 18 120/67 (84) 100 04/06/19 22:15 90 18 120/61 (80) 100 04/06/19 22:00 88 18 107/60 (76) 100 04/06/19 21:45 87 18 120/58 (78) 100 04/06/19 21:30 88 18 114/64 (81) 100 04/06/19 21:15 92 18 112/61 (78) 100 04/06/19 21:03 93 18 60 04/06/19 21:00 94 18 109/57 (74) 100 04/06/19 20:56 97/57 04/06/19 20:45 99 18 97/57 (70) 100 04/06/19 20:30 121 18 112/64 (80) 100 04/06/19 20:15 110 20 101/67 (78) 100 04/06/19 20:00 100 04/06/19 20:00 Mechanical Ventilator 04/06/19 20:00 99.9 112 21 107/66 (80) 100 04/06/19 19:45 112 20 106/54 (71) 100 04/06/19 19:30 123 23 100/42 (61) 100 04/06/19 19:20 112 04/06/19 19:15 113 21 98/58 (71) 100 04/06/19 19:12 113 21 60 04/06/19 19:00 109 20 102/54 (70) 100 04/06/19 19:00 99/65 04/06/19 19:00 99/65 04/06/19 18:45 109 18 101/56 (71) 100 04/06/19 18:30 114/63 04/06/19 18:30 114/43 04/06/19 18:30 127 22 124/99 (107) 100 04/06/19 18:15 111 18 118/54 (75) 100 04/06/19 18:00 112/62 04/06/19 18:00 112/62 04/06/19 18:00 96 18 117/60 (79) 100 04/06/19 17:45 88 18 113/62 (79) 100 04/06/19 17:30 91 18 108/54 (72) 100 04/06/19 17:30 105/43 04/06/19 17:19 92 18 60 04/06/19 17:15 103 18 95/34 (54) 100 04/06/19 17:15 84/37 04/06/19 17:00 110 18 105/38 (60) 98 04/06/19 17:00 91/49 04/06/19 17:00 104/47 04/06/19 16:56 104/47 04/06/19 16:50 99/55 04/06/19 16:45 107 18 99/55 (70) 100 04/06/19 16:30 105 18 102/48 (66) 100 04/06/19 16:15 104 18 100/38 (58) 100 04/06/19 16:00 103 04/06/19 16:00 93/47 04/06/19 16:00 100 04/06/19 16:00 Mechanical Ventilator 2/3/20 16:00 98.6 104 18 93/47 (62) 100 04/06/19 15:45 101 18 96/54 (68) 100 04/06/19 15:30 116 16 83/54 (64) 100 04/06/19 15:20 134 18 100 04/06/19 15:15 89/47 04/06/19 15:15 105 17 101/58 (72) 100 04/06/19 15:00 98 18 87/47 (60) 100 04/06/19 15:00 71/51 04/06/19 14:45 95 18 91/51 (64) 100 04/06/19 14:30 96 18 91/45 (60) 100 04/06/19 14:15 96 18 98/52 (67) 100 04/06/19 14:00 92/55 04/06/19 14:00 94 18 92/44 (60) 100 04/06/19 13:45 95 18 107/57 (74) 100 04/06/19 13:30 98 17 103/60 (74) 100 04/06/19 13:15 103 12 101/60 (74) 100 04/06/19 13:00 104 18 95/58 (70) 100 04/06/19 13:00 96/58 04/06/19 12:58 86 18 100 04/06/19 12:45 85 17 95/57 (70) 100 04/06/19 12:30 89 18 101/57 (72) 100 04/06/19 12:30 86 18 94/62 (73) 100 04/06/19 12:15 87 18 102/57 (72) 100 04/06/19 12:00 97.4 83 18 93/51 (65) 100 04/06/19 12:00 100 04/06/19 12:00 Mechanical Ventilator 04/06/19 12:00 93/58 04/06/19 12:00 110 04/06/19 11:58 97.4 04/06/19 11:45 80 14 100/61 (74) 100 04/06/19 11:30 81 15 76/49 (58) 100 04/06/19 11:30 78/39 04/06/19 11:18 94 14 100 04/06/19 11:00 92 17 91/57 (68) 97 04/06/19 11:00 89/59 2/3/20 10:45 92 17 91/57 (68) 97 04/06/19 10:30 70/54 04/06/19 10:30 86 14 71/54 (60) Intake and Output 04/06/19 04/07/19 19:00 07:00 Intake Total 1021.9655 ml 1255.904 ml Output Total 955 ml 350 ml Balance 66.9655 ml 905.904 ml IV Total 1021.9655 ml 1255.904 ml Output Urine Total 805 ml 350 ml Gastric Drainage Total 150 ml # Bowel Movements 1 2 General Appearance: no acute distress HEENT: normocephalic Respiratory/Chest: chest wall non-tender, lungs clear Cardiovascular: normal peripheral pulses Abdomen: normal bowel sounds, soft, non tender Extremities: no cyanosis Laboratory Tests 04/06/19 11:00: Troponin I 0.074H 04/06/19 17:30: Troponin I 0.099H, White Blood Count 12.2H, Red Blood Count 3.03L, Hemoglobin 8.3L, Hematocrit 26.4L, Mean Corpuscular Volume 87, Mean Corpuscular Hemoglobin 27.5, Mean Corpuscular Hemoglobin Concent 31.6L, Red Cell Distribution Width 17.1H, Platelet Count 219, Mean Platelet Volume 6.1L, Neutrophils (%) (Auto) , Lymphocytes (%) (Auto) , Monocytes (%) (Auto) , Eosinophils (%) (Auto) , Basophils (%) (Auto) , Differential Total Cells Counted 100, Neutrophils % ( Manual) 76H, Lymphocytes % (Manual) 9L, Monocytes % (Manual) 5, Eosinophils % ( Manual) 2, Basophils % (Manual) 0, Band Neutrophils 8, Platelet Estimate Adequate, Platelet Morphology Normal, Hypochromasia 1+, Anisocytosis 1+, Prothrombin Time 11.4, Prothromb Time International Ratio 1.1, Activated Partial Thromboplast Time 24, Sodium Level 152H, Potassium Level 3.5, Chloride Level 116H, Carbon Dioxide Level 31, Anion Gap 5, Blood Urea Nitrogen 26H, Creatinine 1.5H, Estimat Glomerular Filtration Rate , Glucose Level 132H, Lactic Acid Level 1.60, Calcium Level 11.6H, Total Bilirubin 0.3, Aspartate Amino Transf (AST/SGOT) 70H, Alanine Aminotransferase (ALT/SGPT) 25, Alkaline Phosphatase 75, Total Protein 5.9L, Albumin 2.1L, Globulin 3.8, Albumin/ Globulin Ratio 0.6L 04/07/19 03:10: Troponin I 0.088H, White Blood Count 14.1H, Red Blood Count 3.25L, Hemoglobin 9.2L, Hematocrit 26.7L, Mean Corpuscular Volume 82, Mean Corpuscular Hemoglobin 28.2, Mean Corpuscular Hemoglobin Concent 34.4, Red Cell Distribution Width 16.5H, Platelet Count 220, Mean Platelet Volume 4.8L, Neutrophils (%) (Auto) 74.7, Lymphocytes (%) (Auto) 16.0L, Monocytes (%) (Auto) 7.0, Eosinophils (%) ( Auto) 1.9, Basophils (%) (Auto) 0.4, Prothrombin Time 12.0H, Prothromb Time International Ratio 1.1, Activated Partial Thromboplast Time 27, Sodium Level 150H, Potassium Level 3.8, Chloride Level 113H, Carbon Dioxide Level 29, Anion Gap 8, Blood Urea Nitrogen 27H, Creatinine 1.7H, Estimat Glomerular Filtration Rate , Glucose Level 137H, Calcium Level 12.4H, Total Bilirubin 0.3, Aspartate Amino Transf (AST/SGOT) 69H, Alanine Aminotransferase (ALT/SGPT) 24, Alkaline Phosphatase 87, Total Protein 6.5, Albumin 2.2L, Globulin 4.3, Albumin/Globulin Ratio 0.5L, Erythrocyte Sedimentation Rate 118H, C-Reactive Protein, Quantitative 16.0H, Pro-B-Type Natriuretic Peptide 2544H, Amylase Level 72, Lipase 61L, Thyroid Stimulating Hormone (TSH) 2.727, Free Thyroxine 0.92 Current Medications Medications (Trade) Dose Ordered Sig/[place] Route PRN Reason Start Time Stop Time Status Last Admin Dose Admin Albuterol/ Ipratropium (Albuterol/ Ipratropium) 3 ml EVERY 6 HOURS PRN HHN Shortness of Breath 04/06/19 12:00 04/10/19 06:29 Calcitonin [place] (Miacalcin) 1 sprays BID NASAL 04/06/19 09:00 05/04/19 09:29 04/07/19 09:51 Chlorhexidine Gluconate (Martha-Hex 2%) 1 applic DAILY@1999 [facility] 04/06/19:00 05/06/19 19:59 04/06/19 20:18 Dextrose/ Electrolytes 1,000 ml @ 75 mls/hr [id number] IV 04/06/19 08:15 05/05/19 12:59 04/06/19 20:55 Dopamine HCl/ Dextrose 250 ml @ 0 mls/hr Q24H IV 04/06/19 08:15 05/06/19 08:14 04/06/19 20:56 Enoxaparin Sodium (Lovenox) 30 mg DAILY SUBQ 04/06/19 09:00 05/04/19 08:59 Memantine (Namenda) 5 mg BID ORAL 04/06/19 09:00 05/04/19 17:59 04/07/19 09:15 Norepinephrine Bitartrate 4 mg/ Dextrose 250 ml @ 0 mls/hr Q24H IV 04/06/19 16:17 05/06/19 16:16 04/07/19 00:53 Piperacillin Sod/ Tazobactam Sod 3.375 gm/Sodium Chloride 110 ml @ 27.5 mls/hr EVERY 8 HOURS IVPB 04/07/19 10:00 04/12/19 09:59 Sertraline HCl (Zoloft) 25 mg DAILY ORAL 04/06/19 09:00 05/05/19 08:59 04/07/19 09:15 Vancomycin HCl (Vanco rx to dose) 1 ea DAILY PRN MISC Per rx protocol 04/07/19 08:15 05/07/19 08:14 Vancomycin HCl 500 mg/Dextrose 110 ml @ 110 mls/hr Q24H IVPB 04/08/19 10:00 04/13/19 09:59 Vancomycin HCl 1 gm/Dextrose 275 ml @ 183.708 mls/hr ONCE ONCE IVPB 04/07/19 09:00 04/07/19 10:29 04/07/19 09:15 Ganesh Mathews MD Apr 07, 2019 10:25
[2019-04-07] MEDS: D5W w/KCl 20mEq 1,000 ML IV SCH ×2 (10:31→23:28)
[2019-04-07] MEDS: Piperacillin/Tazobactam 3.375 GM in NS 110 ML IVPB SCH ×2 (10:31→21:30)
--- NOTE | 2019-04-07 10:46 | NUR ---
NURSE NOTES: Notified Dr Mathews regarding ABG result. Order to keep the same vent setting. FiO2 decreased to 40% by RT. Will continue to monitor.
--- NOTE | 2019-04-07 11:49 | NUR ---
RD ASSESSMENT & RECOMMENDATIONS SEE CARE ACTIVITY FOR COMPLETE ASSESSMENT DAILY ESTIMATED NEEDS: Needs based on Underweight, cancer, Critical care 54.7kg 25-32 kcals/kg 6981-7888 total kcals 1.2-2 g protein/kg 65-109 g total protein 25-30 mL/kg 6227-4772 total fluid mLs NUTRITION DIAGNOSIS: Underweight r/t cancer? as evidenced by pt w/ prostate cancer, elevated antigen and calcium levels, w/ generalized moderate wasting, previously poor po intake, pt is 81% of [place] body Weight, currently s/p code blue, orally intubated, NPO. CURRENT TF: NPO PO DIET RECOMMENDATIONS: Texture per APPRAISER PERSONAL PROPERTY post extubation -> REGULAR ENTERAL NUTRITION RECOMMENDATIONS: Vital AF 1.2 @ 55ml/hr x 24 hrs to provide 1320ml, 1584kcal, 99g prot, 1070ml free water * When medically appropriate and w/ HD stability -> initiate Vital AF 1.2 @ 15ml/hr x 6 hrs -> advance 10ml q 4-6 hrs as tolerated to goal rate -> HOB over 30 degrees/ water flush per MD ADDITIONAL RECOMMENDATIONS: 1) Recalibrated bed wts for daily wts 2) Monitor NPO status, ability to feed 3) Monitor lytes, replete as needed 4) Consider NISS w/ TF .
--- NOTE | 2019-04-07 12:00 | NUR ---
NURSE NOTES: Turned off Levophed since BP is 110's stable. Will closely monitor BP. Turned and repositioned pt. Oral care done.
--- NOTE | 2019-04-07 12:10 | NUR ---
P.T. NOTES S/P: WILL D/C. PATIENT FROM PHYSICAL THERAPY PER P.T. AND WAIT FOR NEW M.D. ORDER TO CONT. W/P.T. SERVICE. NICOLASA.
--- NOTE | 2019-04-07 13:26 | General Progress Note ---
Assessment/Plan Problem List: (1) UTI (urinary tract infection) ICD Codes: N39.0 - Urinary tract infection, site not specified SNOMED: 75651164 (2) Weak ICD Codes: R53.1 - Weakness SNOMED: 98939181 (3) Anemia ICD Codes: D64.9 - Anemia, unspecified SNOMED: 577875364 (4) Dehydration ICD Codes: E86.0 - Dehydration SNOMED: 33812466, 36486541 (5) Episode of generalized weakness ICD Codes: R53.1 - Weakness SNOMED: 74159843 (6) Stage III adenocarcinoma of prostate ICD Codes: C61 - Malignant neoplasm of prostate SNOMED: 012129606, 85354349 Status: unchanged Assessment/Plan: pe diet abx iv fluid heme eval cbc bmp am Subjective Constitutional: Reports: weakness Allergies: Coded Allergies: No Known Allergies (Unverified , 04/03/19) All Systems: reviewed and negative except above Subjective intubated sedated in icu Objective Last 24 Hour Vital Signs Date Time Temp Pulse Resp B/P (MAP) Pulse Ox O2 Delivery O2 Flow Rate FiO2 04/07/19 13:00 90 18 98/57 (71) 100 04/07/19 12:36 100 18 40 04/07/19 12:00 98.2 90 18 118/62 (80) 100 04/07/19 12:00 Mechanical Ventilator 04/07/19 12:00 89 04/07/19 11:30 100 18 120/67 (84) 100 04/07/19 11:18 96 18 40 04/07/19 11:00 86 18 119/64 (82) 100 04/07/19 10:45 40 04/07/19 10:30 90 18 111/71 (84) 100 04/07/19 10:00 87 18 123/71 (88) 100 04/07/19 09:30 88 18 113/66 (82) 100 04/07/19 09:15 85 18 111/63 (79) 100 04/07/19 09:13 100 04/07/19 09:00 86 18 111/59 (76) 100 04/07/19 08:45 88 18 118/61 (80) 100 04/07/19 08:35 85 18 60 04/07/19 08:30 88 18 116/71 (86) 100 04/07/19 08:00 94 2/4/20 08:00 Mechanical Ventilator 04/07/19 08:00 60 04/07/19 08:00 91 18 111/66 (81) 100 04/07/19 07:30 98.1 83 18 114/66 (82) 100 04/07/19 07:28 85 18 60 04/07/19 07:15 85 18 126/71 (89) 100 04/07/19 07:00 87 18 105/66 (79) 100 04/07/19 06:45 87 19 114/66 (82) 100 04/07/19 06:30 85 18 04/07/19 06:30 92 19 121/78 (92) 100 04/07/19 06:15 103 19 110/72 (85) 100 04/07/19 06:00 99 20 110/68 (82) 100 04/07/19 05:45 92 20 115/63 (80) 100 04/07/19 05:30 89 19 120/67 (84) 99 04/07/19 05:15 92 19 102/60 (74) 100 04/07/19 05:14 101 20 60 04/07/19 05:00 91 19 105/67 (80) 94 04/07/19 04:45 97 20 114/67 (83) 96 04/07/19 04:30 101 20 112/66 (81) 95 04/07/19 04:15 96 22 104/59 (74) 100 04/07/19 04:01 103 34 97/60 (72) 99 04/07/19 04:00 Mechanical Ventilator 04/07/19 04:00 97.7 109 28 91/63 (72) 04/07/19 03:45 119 23 130/80 (97) 97 04/07/19 03:30 123 32 159/81 (107) 91 04/07/19 03:30 136/81 04/07/19 03:15 123 25 136/81 (99) 91 04/07/19 03:03 124 04/07/19 03:00 123 28 189/85 (119) 82 04/07/19 03:00 114/74 04/07/19 02:59 123 27 60 04/07/19 02:45 93 22 114/74 (87) 100 04/07/19 02:30 100 22 119/75 (90) 100 04/07/19 02:20 114/68 04/07/19 02:15 102 26 114/68 (83) 100 04/07/19 02:00 105 20 150/88 (108) 99 04/07/19 02:00 150/88 04/07/19 02:00 150/88 04/07/19 01:45 91 24 138/76 (96) 100 04/07/19 01:30 94 18 131/73 (92) 100 04/07/19 01:15 98 20 136/75 (95) 100 04/07/19 01:00 79 18 139/67 (91) 100 04/07/19 00:53 133/70 04/07/19 00:53 82 18 60 04/07/19 00:45 133/70 04/07/19 00:45 82 18 133/70 (91) 100 04/07/19 00:30 81 18 137/70 (92) 100 04/07/19 00:15 86 18 137/70 (92) 100 04/07/19 00:02 88 04/07/19 00:00 99.5 84 18 137/71 (93) 100 04/07/19 00:00 Mechanical Ventilator 04/06/19 23:45 90 17 132/72 (92) 100 04/06/19 23:30 84 18 134/66 (88) 100 04/06/19 23:15 82 18 126/66 (86) 100 04/06/19 23:08 89 18 60 04/06/19 23:03 85 04/06/19 23:00 83 17 134/77 (96) 100 04/06/19 22:45 86 18 122/55 (77) 100 04/06/19 22:30 86 18 120/67 (84) 100 04/06/19 22:15 90 18 120/61 (80) 100 04/06/19 22:00 88 18 107/60 (76) 100 04/06/19 21:45 87 18 120/58 (78) 100 04/06/19 21:30 88 18 114/64 (81) 100 04/06/19 21:15 92 18 112/61 (78) 100 04/06/19 21:03 93 18 60 04/06/19 21:00 94 18 109/57 (74) 100 2/3/20 20:56 97/57 20 20:45 99 18 97/57 (70) 100 04/06/19 20:30 121 18 112/64 (80) 100 04/06/19 20:15 110 20 101/67 (78) 100 04/06/19 20:00 100 04/06/19 20:00 Mechanical Ventilator 04/06/19 20:00 99.9 112 21 107/66 (80) 100 04/06/19 19:45 112 20 106/54 (71) 100 04/06/19 19:30 123 23 100/42 (61) 100 04/06/19 19:20 112 04/06/19 19:15 113 21 98/58 (71) 100 04/06/19 19:12 113 21 60 04/06/19 19:00 109 20 102/54 (70) 100 04/06/19 19:00 99/65 04/06/19 19:00 99/65 04/06/19 18:45 109 18 101/56 (71) 100 04/06/19 18:30 114/63 04/06/19 18:30 114/43 04/06/19 18:30 127 22 124/99 (107) 100 04/06/19 18:15 111 18 118/54 (75) 100 04/06/19 18:00 112/62 04/06/19 18:00 112/62 04/06/19 18:00 96 18 117/60 (79) 100 04/06/19 17:45 88 18 113/62 (79) 100 04/06/19 17:30 91 18 108/54 (72) 100 04/06/19 17:30 105/43 04/06/19 17:19 92 18 60 04/06/19 17:15 103 18 95/34 (54) 100 04/06/19 17:15 84/37 04/06/19 17:00 110 18 105/38 (60) 98 04/06/19 17:00 91/49 04/06/19 17:00 104/47 04/06/19 16:56 104/47 04/06/19 16:50 99/55 04/06/19 16:45 107 18 99/55 (70) 100 04/06/19 16:30 105 18 102/48 (66) 100 04/06/19 16:15 104 18 100/38 (58) 100 04/06/19 16:00 103 04/06/19 16:00 93/47 04/06/19 16:00 100 04/06/19 16:00 Mechanical Ventilator 04/06/19 16:00 98.6 104 18 93/47 (62) 100 04/06/19 15:45 101 18 96/54 (68) 100 04/06/19 15:30 116 16 83/54 (64) 100 04/06/19 15:20 134 18 100 04/06/19 15:15 89/47 04/06/19 15:15 105 17 101/58 (72) 100 04/06/19 15:00 98 18 87/47 (60) 100 04/06/19 15:00 71/51 04/06/19 14:45 95 18 91/51 (64) 100 04/06/19 14:30 96 18 91/45 (60) 100 04/06/19 14:15 96 18 98/52 (67) 100 04/06/19 14:00 92/55 04/06/19 14:00 94 18 92/44 (60) 100 04/06/19 13:45 95 18 107/57 (74) 100 04/06/19 13:30 98 17 103/60 (74) 100 Intake and Output 04/06/19 04/07/19 19:00 07:00 Intake Total 1021.9655 ml 1255.904 ml Output Total 955 ml 350 ml Balance 66.9655 ml 905.904 ml IV Total 1021.9655 ml 1255.904 ml Output Urine Total 805 ml 350 ml Gastric Drainage Total 150 ml # Bowel Movements 1 2 Laboratory Tests 04/06/19 17:30: White Blood Count 12.2H, Red Blood Count 3.03L, Hemoglobin 8.3L, Hematocrit 26.4L, Mean Corpuscular Volume 87, Mean Corpuscular Hemoglobin 27.5, Mean Corpuscular Hemoglobin Concent 31.6L, Red Cell Distribution Width 17.1H, Platelet Count 219, Mean Platelet Volume 6.1L, Neutrophils (%) (Auto) , Lymphocytes (%) (Auto) , Monocytes (%) (Auto) , Eosinophils (%) (Auto) , Basophils (%) (Auto) , Differential Total Cells Counted 100, Neutrophils % ( Manual) 76H, Lymphocytes % (Manual) 9L, Monocytes % (Manual) 5, Eosinophils % ( Manual) 2, Basophils % (Manual) 0, Band Neutrophils 8, Platelet Estimate Adequate, Platelet Morphology Normal, Hypochromasia 1+, Anisocytosis 1+, Prothrombin Time 11.4, Prothromb Time International Ratio 1.1, Activated Partial Thromboplast Time 24, Sodium Level 152H, Potassium Level 3.5, Chloride Level 116H, Carbon Dioxide Level 31, Anion Gap 5, Blood Urea Nitrogen 26H, Creatinine 1.5H, Estimat Glomerular Filtration Rate , Glucose Level 132H, Lactic Acid Level 1.60, Calcium Level 11.6H, Total Bilirubin 0.3, Aspartate Amino Transf (AST/SGOT) 70H, Alanine Aminotransferase (ALT/SGPT) 25, Alkaline Phosphatase 75, Troponin I 0.099H, Total Protein 5.9L, Albumin 2.1L, Globulin 3.8, Albumin/Globulin Ratio 0.6L 04/07/19 03:10: White Blood Count 14.1H, Red Blood Count 3.25L, Hemoglobin 9.2L, Hematocrit 26.7L, Mean Corpuscular Volume 82, Mean Corpuscular Hemoglobin 28.2, Mean Corpuscular Hemoglobin Concent 34.4, Red Cell Distribution Width 16.5H, Platelet Count 220, Mean Platelet Volume 4.8L, Neutrophils (%) (Auto) 74.7, Lymphocytes (%) (Auto) 16.0L, Monocytes (%) (Auto) 7.0, Eosinophils (%) (Auto) 1.9, Basophils (%) (Auto) 0.4, Prothrombin Time 12.0H, Prothromb Time International Ratio 1.1, Activated Partial Thromboplast Time 27, Sodium Level 150H, Potassium Level 3.8, Chloride Level 113H, Carbon Dioxide Level 29, Anion Gap 8, Blood Urea Nitrogen 27H, Creatinine 1.7H, Estimat Glomerular Filtration Rate , Glucose Level 137H, Calcium Level 12.4H, Total Bilirubin 0.3, Aspartate Amino Transf (AST/SGOT) 69H, Alanine Aminotransferase (ALT/SGPT) 24, Alkaline Phosphatase 87, Troponin I 0.088H, Total Protein 6.5, Albumin 2.2L, Globulin 4.3 , Albumin/Globulin Ratio 0.5L, Erythrocyte Sedimentation Rate 118H, C-Reactive Protein, Quantitative 16.0H, Pro-B-Type Natriuretic Peptide 2544H, Amylase Level 72, Lipase 61L, Thyroid Stimulating Hormone (TSH) 2.727, Free Thyroxine 0.92 04/07/19 09:53: Arterial Blood pH 7.434, Arterial Blood Partial Pressure CO2 40.2, Arterial Blood Partial Pressure O2 166.1H, Arterial Blood HCO3 26.3H, Arterial Blood Oxygen Saturation 98.6, Arterial Blood Base Excess 1.9, Antonio Test Positive Height (Feet): 5 Height (Inches): 7.00 Weight (Pounds): 128 General Appearance: lethargic EENT: normal ENT inspection Neck: normal alignment Cardiovascular: normal peripheral pulses, normal rate, regular rhythm Respiratory/Chest: chest wall non-tender, lungs clear, normal breath sounds Abdomen: normal bowel sounds, non tender, soft Extremities: normal inspection Edema: no edema noted Arm (L), no edema noted Arm (R), no edema noted Leg (L), no edema noted Leg (R), no edema noted Pedal (L), no edema noted Pedal (R), no edema noted Generalized Neurologic: motor weakness Skin: normal pigmentation, warm/dry Sawyer Toussaint DO Apr 07, 2019 13:26
--- NOTE | 2019-04-07 13:53 | Surgery Progress Note ---
Surgery Progress Note Subjective Procedure Performed right subclavian central venous catheter insertion Additional Comments opens eyes spontaneously labs noted leukocytosis on vent support no spont breaths on 2mcg levo off dopa Objective Last 24 Hour Vital Signs Date Time Temp Pulse Resp B/P (MAP) Pulse Ox O2 Delivery O2 Flow Rate FiO2 04/07/19 13:00 90 18 98/57 (71) 100 04/07/19 12:36 100 18 40 04/07/19 12:00 98.2 90 18 118/62 (80) 100 04/07/19 12:00 Mechanical Ventilator 04/07/19 12:00 89 04/07/19 11:30 100 18 120/67 (84) 100 04/07/19 11:18 96 18 40 04/07/19 11:00 86 18 119/64 (82) 100 04/07/19 10:45 40 04/07/19 10:30 90 18 111/71 (84) 100 04/07/19 10:00 87 18 123/71 (88) 100 04/07/19 09:30 88 18 113/66 (82) 100 04/07/19 09:15 85 18 111/63 (79) 100 04/07/19 09:13 100 04/07/19 09:00 86 18 111/59 (76) 100 04/07/19 08:45 88 18 118/61 (80) 100 04/07/19 08:35 85 18 60 04/07/19 08:30 88 18 116/71 (86) 100 04/07/19 08:00 94 04/07/19 08:00 Mechanical Ventilator 04/07/19 08:00 60 04/07/19 08:00 91 18 111/66 (81) 100 04/07/19 07:30 98.1 83 18 114/66 (82) 100 04/07/19 07:28 85 18 60 04/07/19 07:15 85 18 126/71 (89) 100 04/07/19 07:00 87 18 105/66 (79) 100 04/07/19 06:45 87 19 114/66 (82) 100 04/07/19 06:30 85 18 04/07/19 06:30 92 19 121/78 (92) 100 04/07/19 06:15 103 19 110/72 (85) 100 04/07/19 06:00 99 20 110/68 (82) 100 04/07/19 05:45 92 20 115/63 (80) 100 04/07/19 05:30 89 19 120/67 (84) 99 04/07/19 05:15 92 19 102/60 (74) 100 04/07/19 05:14 101 20 60 04/07/19 05:00 91 19 105/67 (80) 94 04/07/19 04:45 97 20 114/67 (83) 96 04/07/19 04:30 101 20 112/66 (81) 95 04/07/19 04:15 96 22 104/59 (74) 100 04/07/19 04:01 103 34 97/60 (72) 99 04/07/19 04:00 Mechanical Ventilator 04/07/19 04:00 97.7 109 28 91/63 (72) 04/07/19 03:45 119 23 130/80 (97) 97 04/07/19 03:30 123 32 159/81 (107) 91 04/07/19 03:30 136/81 04/07/19 03:15 123 25 136/81 (99) 91 04/07/19 03:03 124 04/07/19 03:00 123 28 189/85 (119) 82 04/07/19 03:00 114/74 04/07/19 02:59 123 27 60 04/07/19 02:45 93 22 114/74 (87) 100 04/07/19 02:30 100 22 119/75 (90) 100 04/07/19 02:20 114/68 04/07/19 02:15 102 26 114/68 (83) 100 04/07/19 02:00 105 20 150/88 (108) 99 04/07/19 02:00 150/88 04/07/19 02:00 150/88 04/07/19 01:45 91 24 138/76 (96) 100 04/07/19 01:30 94 18 131/73 (92) 100 04/07/19 01:15 98 20 136/75 (95) 100 04/07/19 01:00 79 18 139/67 (91) 100 04/07/19 00:53 133/70 04/07/19 00:53 82 18 60 04/07/19 00:45 133/70 04/07/19 00:45 82 18 133/70 (91) 100 04/07/19 00:30 81 18 137/70 (92) 100 04/07/19 00:15 86 18 137/70 (92) 100 04/07/19 00:02 88 04/07/19 00:00 99.5 84 18 137/71 (93) 100 04/07/19 00:00 Mechanical Ventilator 04/06/19 23:45 90 17 132/72 (92) 100 04/06/19 23:30 84 18 134/66 (88) 100 04/06/19 23:15 82 18 126/66 (86) 100 04/06/19 23:08 89 18 60 04/06/19 23:03 85 04/06/19 23:00 83 17 134/77 (96) 100 04/06/19 22:45 86 18 122/55 (77) 100 04/06/19 22:30 86 18 120/67 (84) 100 04/06/19 22:15 90 18 120/61 (80) 100 04/06/19 22:00 88 18 107/60 (76) 100 04/06/19 21:45 87 18 120/58 (78) 100 04/06/19 21:30 88 18 114/64 (81) 100 04/06/19 21:15 92 18 112/61 (78) 100 04/06/19 21:03 93 18 60 04/06/19 21:00 94 18 109/57 (74) 100 04/06/19 20:56 97/57 04/06/19 20:45 99 18 97/57 (70) 100 04/06/19 20:30 121 18 112/64 (80) 100 04/06/19 20:15 110 20 101/67 (78) 100 04/06/19 20:00 100 04/06/19 20:00 Mechanical Ventilator 04/06/19 20:00 99.9 112 21 107/66 (80) 100 04/06/19 19:45 112 20 106/54 (71) 100 04/06/19 19:30 123 23 100/42 (61) 100 04/06/19 19:20 112 04/06/19 19:15 113 21 98/58 (71) 100 04/06/19 19:12 113 21 60 2/3/20 19:00 109 20 102/54 (70) 100 220 19:00 99/65 220 19:00 99/65 20 18:45 109 18 101/56 (71) 100 20 18:30 114/63 220 18:30 114/43 20 18:30 127 22 124/99 (107) 100 04/06/19 18:15 111 18 118/54 (75) 100 20 18:00 112/62 04/06/19 18:00 112/62 20 18:00 96 18 117/60 (79) 100 20 17:45 88 18 113/62 (79) 100 04/06/19 17:30 91 18 108/54 (72) 100 04/06/19 17:30 105/43 04/06/19 17:19 92 18 60 04/06/19 17:15 103 18 95/34 (54) 100 04/06/19 17:15 84/37 04/06/19 17:00 110 18 105/38 (60) 98 20 17:00 91/49 04/06/19 17:00 104/47 04/06/19 16:56 104/47 04/06/19 16:50 99/55 04/06/19 16:45 107 18 99/55 (70) 100 04/06/19 16:30 105 18 102/48 (66) 100 04/06/19 16:15 104 18 100/38 (58) 100 04/06/19 16:00 103 04/06/19 16:00 93/47 04/06/19 16:00 100 04/06/19 16:00 Mechanical Ventilator 04/06/19 16:00 98.6 104 18 93/47 (62) 100 20 15:45 101 18 96/54 (68) 100 20 15:30 116 16 83/54 (64) 100 04/06/19 15:20 134 18 100 04/06/19 15:15 89/47 20 15:15 105 17 101/58 (72) 100 04/06/19 15:00 98 18 87/47 (60) 100 04/06/19 15:00 71/51 04/06/19 14:45 95 18 91/51 (64) 100 04/06/19 14:30 96 18 91/45 (60) 100 04/06/19 14:15 96 18 98/52 (67) 100 04/06/19 14:00 92/55 04/06/19 14:00 94 18 92/44 (60) 100 I&O Intake and Output 04/06/19 04/07/19 19:00 07:00 Intake Total 1021.9655 ml 1255.904 ml Output Total 955 ml 350 ml Balance 66.9655 ml 905.904 ml IV Total 1021.9655 ml 1255.904 ml Output Urine Total 805 ml 350 ml Gastric Drainage Total 150 ml # Bowel Movements 1 2 Cardiovascular: RSR Respiratory: decreased breath sounds Abdomen: soft, non-distended, decreased bowel sounds Extremities: no cyanosis, other Laboratory Tests Test 04/06/19 17:30 04/07/19 03:10 04/07/19 09:50 04/07/19 09:53 White Blood Count 12.2 K/UL (4.8-10.8) H 14.1 K/UL (4.8-10.8) H Red Blood Count 3.03 M/UL (4.70-6.10) L 3.25 M/UL (4.70-6.10) L Hemoglobin 8.3 G/DL (14.2-18.0) L 9.2 G/DL (14.2-18.0) L Hematocrit 26.4 % (42.0-52.0) L 26.7 % (42.0-52.0) L Mean Corpuscular Volume 87 FL (80-99) 82 FL (80-99) Mean Corpuscular Hemoglobin 27.5 PG (27.0-31.0) 28.2 PG (27.0-31.0) Mean Corpuscular Hemoglobin Concent 31.6 G/DL (32.0-36.0) L 34.4 G/DL (32.0-36.0) Red Cell Distribution Width 17.1 % (11.6-14.8) H 16.5 % (11.6-14.8) H Platelet Count 219 K/UL (150-450) 220 K/UL (150-450) Mean Platelet Volume 6.1 FL (6.5-10.1) L 4.8 FL (6.5-10.1) L Neutrophils (%) (Auto) % (45.0-75.0) 74.7 % (45.0-75.0) Lymphocytes (%) (Auto) % (20.0-45.0) 16.0 % (20.0-45.0) L Monocytes (%) (Auto) % (1.0-10.0) 7.0 % (1.0-10.0) Eosinophils (%) (Auto) % (0.0-3.0) 1.9 % (0.0-3.0) Basophils (%) (Auto) % (0.0-2.0) 0.4 % (0.0-2.0) Differential Total Cells Counted 100 Neutrophils % (Manual) 76 % (45-75) H Lymphocytes % (Manual) 9 % (20-45) L Monocytes % (Manual) 5 % (1-10) Eosinophils % (Manual) 2 % (0-3) Basophils % (Manual) 0 % (0-2) Band Neutrophils 8 % (0-8) Platelet Estimate Adequate Platelet Morphology Normal Hypochromasia 1+ Anisocytosis 1+ Prothrombin Time 11.4 SEC (9.30-11.50) 12.0 SEC (9.30-11.50) H Prothromb Time International Ratio 1.1 (0.9-1.1) 1.1 (0.9-1.1) Activated Partial Thromboplast Time 24 SEC (23-33) 27 SEC (23-33) Sodium Level 152 MMOL/L (136-145) H 150 MMOL/L (136-145) H Potassium Level 3.5 MMOL/L (3.5-5.1) 3.8 MMOL/L (3.5-5.1) Chloride Level 116 MMOL/L (98-107) H 113 MMOL/L (98-107) H Carbon Dioxide Level 31 MMOL/L (21-32) 29 MMOL/L (21-32) Anion Gap 5 mmol/L (5-15) 8 mmol/L (5-15) Blood Urea Nitrogen 26 mg/dL (7-18) H 27 mg/dL (7-18) H Creatinine 1.5 MG/DL (0.55-1.30) H 1.7 MG/DL (0.55-1.30) H Estimat Glomerular Filtration Rate mL/min (>60) mL/min (>60) Glucose Level 132 MG/DL (74-106) H 137 MG/DL (74-106) H Lactic Acid Level 1.60 mmol/L (0.4-2.0) Calcium Level 11.6 MG/DL (8.5-10.1) H 12.4 MG/DL (8.5-10.1) H Total Bilirubin 0.3 MG/DL (0.2-1.0) 0.3 MG/DL (0.2-1.0) Aspartate Amino Transf (AST/SGOT) 70 U/L (15-37) H 69 U/L (15-37) H Alanine Aminotransferase (ALT/SGPT) 25 U/L (12-78) 24 U/L (12-78) Alkaline Phosphatase 75 U/L (46-116) 87 U/L (46-116) Troponin I 0.099 ng/mL (0.000-0.056) 0.088 ng/mL (0.000-0.056) Total Protein 5.9 G/DL (6.4-8.2) L 6.5 G/DL (6.4-8.2) Albumin 2.1 G/DL (3.4-5.0) L 2.2 G/DL (3.4-5.0) L Globulin 3.8 g/dL 4.3 g/dL Albumin/Globulin Ratio 0.6 (1.0-2.7) L 0.5 (1.0-2.7) L Erythrocyte Sedimentation Rate 118 MM/HR (0-20) H C-Reactive Protein, Quantitative 16.0 mg/dL (0.00-0.90) H Pro-B-Type Natriuretic Peptide 2544 pg/mL (0-125) H Amylase Level 72 U/L (25-115) Lipase 61 U/L (73-393) L Thyroid Stimulating Hormone (TSH) 2.727 uiU/mL (0.358-3.740) Free Thyroxine 0.92 NG/DL (0.76-1.46) Urine Color Pending Urine Appearance Pending Urine pH Pending Urine Specific [place] Pending Urine Protein Pending Urine Glucose (UA) Pending Urine Ketones Pending Urine Blood Pending Urine Nitrite Pending Urine Bilirubin Pending Urine Urobilinogen Pending Urine Leukocyte Esterase Pending Arterial Blood pH 7.434 (7.350-7.450) Arterial Blood Partial Pressure CO2 40.2 mmHg (35.0-45.0) Arterial Blood Partial Pressure O2 166.1 mmHg (75.0-100.0) H Arterial Blood HCO3 26.3 mmol/L (22.0-26.0) H Arterial Blood Oxygen Saturation 98.6 % (95-100) Arterial Blood Base Excess 1.9 (-2-2) Antonio Test Positive Plan Problems: (1) Cardiac arrest Assessment & Plan: intubated on vent support oxygenating well good volume and pressure hypotensive on pressors weaning off now central line placed left subclavian iv fluids abx as per ID trend labs abg cxr ordered pending results will follow with recs thank you (2) Stage III adenocarcinoma of prostate Assessment & Plan: patient with state 3 prostate cancer pending treatment at [facility] unlikely related to acute cardiac arrest this am abd exam with mild distention pending KUB no acute surgical intervention planned onc input thank you will follow with recJay Flroez Apr 07, 2019 13:53
[2019-04-07 14:22] LABS: APPEARANCE,URINE SLIGHTLY CLOUDY; BILIRUBIN, URINE NEGATIVE (NEGATIVE); GLUCOSE, URINE (UA) NEGATIVE (NEGATIVE); KETONES,URINE NEGATIVE (NEGATIVE); LEUKOCYTE ESTERASE ,URINE 3+ (NEGATIVE); NITRITE,URINE NEGATIVE (NEGATIVE); PH,URINE 6 (4.5-8.0); PROTEIN,URINE 3+ (NEGATIVE); UROBILINOGEN,URINE NORMAL MG/DL (0.0-1.0)
[2019-04-07 14:23] LABS: COLOR,URINE YELLOW
--- NOTE | 2019-04-07 15:00 | NUR ---
NURSE NOTES: BP is stable 105/58 without Levophed. Will continue to monitor.
[2019-04-07] MEDS ORDERED: Sodium Bicarbonate 50ml Carp ONE (15:58)
--- NOTE | 2019-04-07 17:00 | NUR ---
NURSE NOTES: Cleaned patient for small amount of normal brown BM and repositioned pt. Pt is able to wake up easily and oriented to name, but falls back to sleep soon. Temp 99.2. Cooling measure initiated.
--- NOTE | 2019-04-07 19:04 | NUR ---
RESPIRATORY NOTE: Received pt on AC 18, 500VT, 40%, PEEP +3. Pt intubated w/ ETT 7.5 @ 24cm lipline, secured by anchorfast. Pt is alert/awake, follows commands. B/S cleopatra. rhonchi/diminished, sxn small to moderate amounts of thick, pale-yellow to melgar-yellow secretions. Both hands on soft estraints to prevent pt from self-extubation. Bite block in place as pt tends to clench jaw. Vent plugged into red outlet, ambubag at bedside. Pt in no apparent distress at this time. Will continue to monitor pt.
--- NOTE | 2019-04-07 19:10 | NUR ---
HAND-OFF: Report given to BLANCA Beverly.
--- NOTE | 2019-04-07 19:11 | NUR ---
NURSE NOTES: Received patient from WILBERTO RONQUILLO RN. Will continue plan of care.
--- NOTE | 2019-04-07 19:15 | Progress Note ---
DATE: 04/07/2019 SUBJECTIVE: This is a 73-year-old patient with generalized weakness. This patient has increased depression, anxiety, and altered mental status, worsened by stress of his medical illness. That is why, his attending has requested daily psychiatric consultation. The patient also has dehydration. MENTAL STATUS EXAMINATION: This is a 73-year-old male. Appearance is disheveled. Attitude, irritable and agitated. Affect, guarded and restricted. Intellect, poor. Mood, depressed and anxious. Motor activity, psychomotor agitation. Attention span is poor. Orientation x2. Speech is pressured. Thought process, disorganized and illogical. Insight and judgment is poor. DIAGNOSIS: Paranoid schizophrenia, acute exacerbation. PLAN: Plan for this patient is to treat him with Zoloft 25 mg a day and Namenda 5 mg twice a day. A 20 minutes of cognitive behavioral therapy to help him identify his automatic negative thoughts and and help him convert those negative thoughts to more positive thoughts to reduce depression, anxiety, and mood lability. Chart reviewed. Discussed with staff. Seen and assessed at bedside. Cherise Palma M.D. DR: ACE JOB#: [id number] CC:
[2019-04-07] MEDS: Dyna-Hex 2% Top Sol 2oz TOPIC SCH (19:37)
--- NOTE | 2019-04-07 20:00 | NUR ---
NURSE NOTES: Patient is awake and alert to name. Able to nod his head to simple questions and statements. Daughter Amy called for update, notified patient of the call and his eyes opened wider showing understanding. Remains intubated ETT 7.5 @ 24cm to the lipline with vent settings of AC:18, TV:500, FiO2:40%, PEEP:3, O2:100%. Patient is now off pressors as of this afternoon; current BP:126/64 HR:88. Morales remains intact and draining. NGT in place and on low intermittent suction with some gastric content output. NPO status. D5W w/ 20meq kcl running via left subclavian TLC at 75ml/hr. Low grade fever of 99.4F axillary; cooling measures in place. Bed low, locked and alarm is on. Will continue to monitor.
--- NOTE | 2019-04-07 22:00 | NUR ---
NURSE NOTES: Patient is resting, awakes to noise and makes eye contact. Vital signs stable; BP:141/74 HR:82. Turned and repositioned. Safety measures in place. Will continue to monitor.
[2019-04-08] VITALS (36 sets, daily range): BP systolic 88–176; BP diastolic 53–111
--- NOTE | 2019-04-08 | NUR ---
NURSE NOTES: Patient is awake and alert, making eye contact. Able to motion needs, all needs met. TV on to sports for distraction, he motioned for blankets. Turned and repositioned. Current BP:114/64 HR:77. Will continue to monitor.
--- NOTE | 2019-04-08 02:00 | NUR ---
NURSE NOTES: Suctioning provided. Patient refusing bed bath at the moment and went back to sleep. Current BP: 156/76 and is tachycardic during suctioning. Will continue to monitor.
--- NOTE | 2019-04-08 04:00 | NUR ---
NURSE NOTES: Patient is sleeping comfortably. Vital signs stable. No changes in condition.
[2019-04-08] MEDS: Piperacillin/Tazobactam 3.375 GM in NS 110 ML IVPB SCH ×3 (05:11→21:13)
[2019-04-08 05:29] LABS: ANION GAP 7 mmol/L (5-15); BLOOD UREA NITROGEN 24 mg/dL (7-18); CALCIUM 10.3 MG/DL (8.5-10.1); CARBON DIOXIDE 28 MMOL/L (21-32); CHLORIDE 110 MMOL/L (98-107); CREATININE 1.5 MG/DL (0.55-1.30); POTASSIUM 3.7 MMOL/L (3.5-5.1); SODIUM 145 MMOL/L (136-145)
[2019-04-08 05:33] LABS: HEMATOCRIT 19.6 % (42.0-52.0); MEAN CORPUSCULAR VOLUME 81 FL (80-99); PLATELET COUNT 140 K/UL (150-450); RED BLOOD COUNT 2.41 M/UL (4.70-6.10); RED CELL DISTRIBUTION WIDTH 16.2 % (11.6-14.8); WHITE BLOOD COUNT 9.2 K/UL (4.8-10.8)
--- NOTE | 2019-04-08 06:00 | NUR ---
NURSE NOTES: Patient continues to open eyes spontaneously and tracks. Shows an understanding of treatments and this mornings weaning trial by nodding. Motions needs, all needs are met. Refuses full bed bath again, fresh linens given. Patient turned and repositioned. ROM performed and patient tried to pull out bite block. Suctioning and oral provided. Vital signs stable, patient is comfortable.
--- NOTE | 2019-04-08 06:45 | NUR ---
NURSE NOTES: Left message to Dr. Monroy regarding patient's hgb dropped from 9.2 to 7.0 and platelets dropped from 220 to 140. Also informed him of 100ml coffee ground emesis collected via NGT on low intermittent suction the last 12 hours.
--- NOTE | 2019-04-08 06:51 | NUR ---
NURSE NOTES: Per Dr. Monroy to transfuse 2 units PRBC.
--- NOTE | 2019-04-08 07:00 | NUR ---
RESPIRATORY NOTES: Received Patient on vent settings ACVC RR 18, VT 500, FIO2 40%, PEEP +3. Patient intubated with 7.5 ETT secured at 24cm at the lip, secured with anchorfast. Patient alert and aware, however he says he does not understand what I am saying to him. Suction minimal amount of secretions through tube and mouth Q2 and PRN. Vent plugged into red outlet. Alarms are on and audible. Will continue to monitor throughout the day.
--- NOTE | 2019-04-08 07:03 | NUR ---
RESPIRATORY NOTES: Weaning trail started at 0703. Patient pulling spontaneous volumes of above 300mL, HR 114, Spontaneous RR 25, RSBI 65. NIF was not passed at -11 and vital capacity was low at 145. Will continue with weaning, however, to note progress.
--- NOTE | 2019-04-08 07:17 | NUR ---
NURSE NOTES: Dr. Monroy ordered protonix 40mg IV QD. Blood transfusion orders in.
--- NOTE | 2019-04-08 07:19 | NUR ---
HAND-OFF: Report given to BLANCA Leong.
--- NOTE | 2019-04-08 07:20 | NUR ---
NURSE NOTES: Late entry: PT and report received from BLANCA Beverly; PT A/O x 2-3; received with bilateral soft wrist restraints, able to gesture to staff during morning rounds, opens eyes, able to grasp staff, non-verbal, PT is intubated with ETT 7.5 @ 24 R-lip; AC 18; TV 500, 40%, peep 3; no S/S of respiratory distress. PT remains NPO with NGTube on low intermittent suction connected to wall patent intact brownish colored content; PT received with L-sub clav TLC intact patent infusing D5W with KCl @ 75cc/hr, PIV R-forearm 20g intact flushes well saline locked; PT has bilateral knee scabs due to fall from home. Will continue to monitor PT and follow through with plan of care.
--- NOTE | 2019-04-08 07:22 | NUR ---
NURSE NOTES: PT on weaning protocol CPAP 8, peep 3, 40%. PT VS stable, will continue to monitor PT.
--- NOTE | 2019-04-08 07:37 | NUR ---
NURSE NOTES: Called Renny, PT brother @ [phone] to obtain two RN telephone consent for blood transfusion. PT brother gave consent, second RN verification and consent obtained by BLANCA Goodson. PT brother advised to make him primary point of contact, followed by sister Paige Allred @ [phone] followed by PT son Lakhwinder De Leon @ [phone]. Will continue to monitor PT and follow through with plan of care.
--- NOTE | 2019-04-08 07:59 | NUR ---
NURSE NOTES: MD Porifrio made rounds, signature obtained for blood transfusion.
[2019-04-08] MEDS: DOPamine 400mg/250ml 250 ML IV SCH (08:04)
--- NOTE | 2019-04-08 08:45 | NUR ---
RESPIRATORY NOTES: Weaning stopped due to respiratory distress. SOB noticed and HR 145 bpm. Placed back onto ACVC.
[2019-04-08] MEDS: Enoxaparin 30mg Inj SUBQ SCH (09:00)
[2019-04-08] MEDS: Pantoprazole Inj IVP SCH (09:17)
[2019-04-08] MEDS: Sertraline 50mg tab ORAL SCH (09:17)
[2019-04-08] MEDS: Memantine 5 MG TAB ORAL SCH ×2 (09:18→18:18)
--- NOTE | 2019-04-08 09:18 | NUR ---
RADIOLOGY DEPT., CHEST X-RAY DONE.-P.DYE
--- NOTE | 2019-04-08 09:30 | NUR ---
RESPIRATORY NOTES: Placed back on CPAP per Dr. Mathews. Placed on PS +8 PEEP +5 FIO2 40%. Will continue to monitor.
--- NOTE | 2019-04-08 09:32 | Pulmonology Progress Note ---
Assessment/Plan Assessment/Plan IMPRESSION: 1. Status post asystolic cardiac arrest. 2. Respiratory failure, on AC mode. 3. Altered mental status. 4. Hypernatremia. 5. Hypokalemia . 6. History of COPD. 7. Prostate CA. DISCUSSION: 1. Discussed with bedside nursing. 2. Discussed also with the patient's daughter, Amy, over the phone again yesterday, 3. Discussed with Dr. Sawyer Toussaitn. 4. The patient at this time needs assist control mechanical ventilation. 5. I will check ABG. 6. I will continue vent as is. Will initiate weaning 7. The patient's family is requesting transfer to contracted facility. Currently, he is off levophed and intubated. 8. Continue medications. 9. I will follow carefully. Ganesh Mathews M.D. Subjective Interval Events: Off pressors; awake and responsive Constitutional: Reports: no symptoms HEENT: Repors: no symptoms Respiratory: Reports: no symptoms Cardiovascular: Reports: no symptoms Gastrointestinal/Abdominal: Reports: no symptoms Allergies: Coded Allergies: No Known Allergies (Unverified , 04/03/19) Objective Last 24 Hour Vital Signs Date Time Temp Pulse Resp B/P (MAP) Pulse Ox O2 Delivery O2 Flow Rate FiO2 04/08/19 08:52 135 22 40 04/08/19 08:04 126/58 04/08/19 08:00 98.8 108 23 126/58 (80) 100 04/08/19 07:30 40 04/08/19 07:10 100 04/08/19 07:03 100 19 40 40 04/08/19 07:00 94 19 115/60 (78) 100 04/08/19 06:30 88 18 117/53 (74) 100 04/08/19 06:30 97 18 04/08/19 06:00 85 18 101/53 (69) 100 04/08/19 05:30 97 21 112/62 (79) 100 04/08/19 05:10 95 18 40 04/08/19 05:00 85 18 108/58 (75) 100 04/08/19 04:30 83 18 115/60 (78) 100 04/08/19 04:00 99.1 77 18 102/57 (72) 100 04/08/19 04:00 Mechanical Ventilator 04/08/19 04:00 40 04/08/19 03:30 82 18 108/61 (77) 100 04/08/19 03:01 82 04/08/19 03:00 90 17 109/67 (81) 100 04/08/19 02:52 75 18 40 04/08/19 02:30 82 18 90/65 (73) 100 04/08/19 02:00 103 18 158/79 (105) 99 04/08/19 01:30 81 18 130/60 (83) 100 04/08/19 01:00 81 18 121/66 (84) 100 04/08/19 00:54 82 18 40 04/08/19 00:30 75 18 104/56 (72) 100 04/08/19 00:00 Mechanical Ventilator 04/08/19 00:00 98.6 74 18 114/64 (81) 100 04/07/19 23:30 93 19 145/78 (100) 100 04/07/19 23:16 98 04/07/19 23:00 85 18 133/58 (83) 100 04/07/19 22:53 125 21 40 04/07/19 22:30 107 17 135/75 (95) 96 04/07/19 22:00 91 18 141/74 (96) 100 04/07/19 21:45 82 18 122/60 (80) 100 04/07/19 21:30 85 18 120/78 (92) 99 04/07/19 21:00 102 21 138/72 (94) 100 04/07/19 20:53 95 19 40 04/07/19 20:30 83 18 117/71 (86) 100 04/07/19 20:00 Mechanical Ventilator 04/07/19 20:00 40 04/07/19 20:00 99.4 84 18 128/68 (88) 99 04/07/19 19:32 78 04/07/19 19:30 85 18 125/63 (83) 100 04/07/19 19:00 102 21 132/80 (97) 92 04/07/19 18:58 99 22 40 04/07/19 18:00 92 18 121/67 (85) 98 04/07/19 18:00 40 04/07/19 17:10 128 29 40 04/07/19 17:00 99.2 118 20 120/70 (87) 100 04/07/19 16:04 101 04/07/19 16:00 86 18 96/60 (72) 100 04/07/19 16:00 Mechanical Ventilator 04/07/19 15:16 104 22 40 04/07/19 15:00 95 20 105/58 (74) 100 04/07/19 14:00 115 20 119/61 (80) 100 04/07/19 13:00 90 18 98/57 (71) 100 04/07/19 12:45 93 18 101/56 (71) 100 04/07/19 12:36 100 18 40 04/07/19 12:30 99 19 110/56 (74) 100 04/07/19 12:15 92 18 113/57 (75) 100 04/07/19 12:00 98.2 90 18 118/62 (80) 100 04/07/19 12:00 Mechanical Ventilator 04/07/19 12:00 113/57 04/07/19 12:00 89 04/07/19 11:30 100 18 120/67 (84) 100 04/07/19 11:18 96 18 40 04/07/19 11:00 86 18 119/64 (82) 100 04/07/19 11:00 106/63 04/07/19 10:45 40 04/07/19 10:30 90 18 111/71 (84) 100 04/07/19 10:30 117/62 04/07/19 10:00 117/64 04/07/19 10:00 87 18 123/71 (88) 100 Intake and Output 04/07/19 04/08/19 19:00 07:00 Intake Total 1127.500 ml 1025.04 ml Output Total 420 ml 765 ml Balance 707.500 ml 260.04 ml IV Total 1047.500 ml 1025.04 ml Other 80 ml Output Urine Total 420 ml 665 ml Gastric Drainage Total 100 ml # Bowel Movements 1 General Appearance: no acute distress HEENT: normocephalic Respiratory/Chest: chest wall non-tender, lungs clear Cardiovascular: normal peripheral pulses Abdomen: normal bowel sounds Laboratory Tests 04/07/19 09:50: Urine Color Yellow, Urine Appearance Slightly cloudy, Urine pH 6, Urine Specific Bonita 1.010, Urine Protein 3+H, Urine Glucose (UA) Negative, Urine Ketones Negative, Urine Blood 5+H, Urine Nitrite Negative, Urine Bilirubin Negative, Urine Urobilinogen Normal, Urine Leukocyte Esterase 3+H, Urine RBC 20- 30H, Urine WBC TntcH, Urine Squamous Epithelial Cells Occasional, Urine Bacteria Few 04/07/19 09:53: Arterial Blood pH 7.434, Arterial Blood Partial Pressure CO2 40.2, Arterial Blood Partial Pressure O2 166.1H, Arterial Blood HCO3 26.3H, Arterial Blood Oxygen Saturation 98.6, Arterial Blood Base Excess 1.9, Antonio Test Positive 04/08/19 04:00: White Blood Count 9.2, Red Blood Count 2.41L, Hemoglobin 7.0L, Hematocrit 19.6L , Mean Corpuscular Volume 81, Mean Corpuscular Hemoglobin 29.0, Mean Corpuscular Hemoglobin Concent 35.7, Red Cell Distribution Width 16.2H, Platelet Count 140L, Mean Platelet Volume 5.5L, Neutrophils (%) (Auto) , Lymphocytes (%) (Auto) , Monocytes (%) (Auto) , Eosinophils (%) (Auto) , Basophils (%) (Auto) , Differential Total Cells Counted 100, Neutrophils % ( Manual) 70, Lymphocytes % (Manual) 19L, Monocytes % (Manual) 5, Eosinophils % ( Manual) 6H, Basophils % (Manual) 0, Band Neutrophils 0, Platelet Estimate DecreasedL, Platelet Morphology Normal, Anisocytosis 2+, Ovalocytes 1+, Acanthocytes 1+, Schistocytes 1+, Sodium Level 145, Potassium Level 3.7, Chloride Level 110H, Carbon Dioxide Level 28, Anion Gap 7, Blood Urea Nitrogen 24H, Creatinine 1.5H, Estimat Glomerular Filtration Rate , Glucose Level 107H, Calcium Level 10.3H Current Medications Medications (Trade) Dose Ordered Sig/[place] Route PRN Reason Start Time Stop Time Status Last Admin Dose Admin Albuterol/ Ipratropium (Albuterol/ Ipratropium) 3 ml EVERY 6 HOURS PRN HHN Shortness of Breath 04/06/19 12:00 04/10/19 06:29 Calcitonin Milo (Miacalcin) 1 sprays BID NASAL 04/06/19 09:00 05/04/19 09:29 04/08/19 09:18 Chlorhexidine Gluconate (Martha-Hex 2%) 1 applic DAILY@2000 TOPIC 04/06/19 20:00 05/06/19 19:59 04/07/19 19:37 Dextrose/ Electrolytes 1,000 ml @ 75 mls/hr [id number] IV 04/06/19 08:15 05/05/19 12:59 04/07/19 23:28 Dopamine HCl/ Dextrose 250 ml @ 0 mls/hr Q24H IV 04/06/19 08:15 05/06/19 08:14 04/06/19 20:56 Enoxaparin Sodium (Lovenox) 30 mg DAILY SUBQ 04/06/19 09:00 05/04/19 08:59 Memantine (Namenda) 5 mg BID ORAL 04/06/19 09:00 05/04/19 17:59 04/08/19 09:18 Norepinephrine Bitartrate 4 mg/ Dextrose 250 ml @ 0 mls/hr Q24H IV 04/06/19 16:17 05/06/19 16:16 04/07/19 00:53 Pantoprazole (Protonix) 40 mg DAILY IVP 04/08/19 09:00 05/08/19 08:59 04/08/19 09:17 Piperacillin Sod/ Tazobactam Sod 3.375 gm/Sodium Chloride 110 ml @ 27.5 mls/hr EVERY 8 HOURS IVPB 04/07/19 10:00 04/12/19 09:59 04/08/19 05:11 Sertraline HCl (Zoloft) 25 mg DAILY ORAL 04/06/19 09:00 05/05/19 08:59 04/08/19 09:17 Vancomycin HCl (Vanco rx to dose) 1 ea DAILY PRN MISC Per rx protocol 04/07/19 08:15 05/07/19 08:14 Vancomycin HCl 500 mg/Dextrose 110 ml @ 110 mls/hr Q24H IVPB 04/08/19 10:00 04/13/19 09:59 04/08/19 09:18 Ganesh Mathews MD Apr 08, 2019 09:32
[2019-04-08] MEDS ORDERED: Vancomycin 500mg/D5W 110ml IVPB SCH ×2 (10:00)
--- NOTE | 2019-04-08 10:00 | NUR ---
NURSE NOTES: Late entry: DO Norbert made rounds, updates given about PT status and weaning, updates on PT family given also. Orders given for Brass Reclaimer consult to determine POA status.
--- NOTE | 2019-04-08 10:09 | NUR ---
NURSE NOTES: PT son called back asking for clarification on who gave consent for blood transfusion for PT, advised him PT brother Renny gave consent. PT son Moises stated he was called [id number], noted made that he was called at [phone] for blood transfusion consent. PT son does not have POA; but is requesting to be the primary decision maker along with (daughter in law) Amy. Will make updates to PT facesheet for contacts, CODY Kim made aware.
[2019-04-08] MEDS ORDERED: Tubing IV Secondary IV ONE (10:20)
[2019-04-08] MEDS ORDERED: NS 275ml ONE (10:20)
--- NOTE | 2019-04-08 10:31 | General Progress Note ---
Assessment/Plan Problem List: (1) UTI (urinary tract infection) ICD Codes: N39.0 - Urinary tract infection, site not specified SNOMED: 16662700 (2) Weak ICD Codes: R53.1 - Weakness SNOMED: 40186846 (3) Anemia ICD Codes: D64.9 - Anemia, unspecified SNOMED: 695785719 (4) Dehydration ICD Codes: E86.0 - Dehydration SNOMED: 41306049, 64193310 (5) Episode of generalized weakness ICD Codes: R53.1 - Weakness SNOMED: 54323874 (6) Stage III adenocarcinoma of prostate ICD Codes: C61 - Malignant neoplasm of prostate SNOMED: 185338649, 16867431 Status: unchanged Assessment/Plan: wean vent pt diet abx iv fluid heme gi eval cbc bmp am Subjective Constitutional: Reports: weakness Allergies: Coded Allergies: No Known Allergies (Unverified , 04/03/19) All Systems: reviewed and negative except above Subjective intubated ng in icu Objective Last 24 Hour Vital Signs Date Time Temp Pulse Resp B/P (MAP) Pulse Ox O2 Delivery O2 Flow Rate FiO2 04/08/19 10:00 99 22 121/81 (94) 100 04/08/19 09:39 107 26 40 40 04/08/19 09:00 100 18 93/59 (70) 100 04/08/19 08:52 135 22 40 04/08/19 08:04 126/58 04/08/19 08:00 98.8 108 23 126/58 (80) 100 04/08/19 08:00 Mechanical Ventilator 04/08/19 07:30 40 04/08/19 07:10 100 04/08/19 07:03 100 19 40 40 04/08/19 07:00 94 19 115/60 (78) 100 04/08/19 06:30 88 18 117/53 (74) 100 04/08/19 06:30 97 18 04/08/19 06:00 85 18 101/53 (69) 100 04/08/19 05:30 97 21 112/62 (79) 100 04/08/19 05:10 95 18 40 04/08/19 05:00 85 18 108/58 (75) 100 04/08/19 04:30 83 18 115/60 (78) 100 04/08/19 04:00 99.1 77 18 102/57 (72) 100 04/08/19 04:00 Mechanical Ventilator 04/08/19 04:00 40 04/08/19 03:30 82 18 108/61 (77) 100 04/08/19 03:01 82 04/08/19 03:00 90 17 109/67 (81) 100 04/08/19 02:52 75 18 40 04/08/19 02:30 82 18 90/65 (73) 100 04/08/19 02:00 103 18 158/79 (105) 99 04/08/19 01:30 81 18 130/60 (83) 100 04/08/19 01:00 81 18 121/66 (84) 100 04/08/19 00:54 82 18 40 04/08/19 00:30 75 18 104/56 (72) 100 04/08/19 00:00 Mechanical Ventilator 04/08/19 00:00 98.6 74 18 114/64 (81) 100 04/07/19 23:30 93 19 145/78 (100) 100 04/07/19 23:16 98 04/07/19 23:00 85 18 133/58 (83) 100 04/07/19 22:53 125 21 40 04/07/19 22:30 107 17 135/75 (95) 96 04/07/19 22:00 91 18 141/74 (96) 100 04/07/19 21:45 82 18 122/60 (80) 100 04/07/19 21:30 85 18 120/78 (92) 99 04/07/19 21:00 102 21 138/72 (94) 100 04/07/19 20:53 95 19 40 04/07/19 20:30 83 18 117/71 (86) 100 04/07/19 20:00 Mechanical Ventilator 04/07/19 20:00 40 04/07/19 20:00 99.4 84 18 128/68 (88) 99 04/07/19 19:32 78 04/07/19 19:30 85 18 125/63 (83) 100 04/07/19 19:00 102 21 132/80 (97) 92 04/07/19 18:58 99 22 40 04/07/19 18:00 92 18 121/67 (85) 98 04/07/19 18:00 40 04/07/19 17:10 128 29 40 2/4/20 17:00 99.2 118 20 120/70 (87) 100 04/07/19 16:04 101 04/07/19 16:00 86 18 96/60 (72) 100 04/07/19 16:00 Mechanical Ventilator 04/07/19 15:16 104 22 40 04/07/19 15:00 95 20 105/58 (74) 100 04/07/19 14:00 115 20 119/61 (80) 100 04/07/19 13:00 90 18 98/57 (71) 100 04/07/19 12:45 93 18 101/56 (71) 100 04/07/19 12:36 100 18 40 04/07/19 12:30 99 19 110/56 (74) 100 04/07/19 12:15 92 18 113/57 (75) 100 04/07/19 12:00 98.2 90 18 118/62 (80) 100 04/07/19 12:00 Mechanical Ventilator 04/07/19 12:00 113/57 04/07/19 12:00 89 04/07/19 11:30 100 18 120/67 (84) 100 04/07/19 11:18 96 18 40 04/07/19 11:00 86 18 119/64 (82) 100 04/07/19 11:00 106/63 04/07/19 10:45 40 04/07/19 10:30 90 18 111/71 (84) 100 04/07/19 10:30 117/62 Intake and Output 04/07/19 04/08/19 19:00 07:00 Intake Total 1127.500 ml 1025.04 ml Output Total 420 ml 765 ml Balance 707.500 ml 260.04 ml IV Total 1047.500 ml 1025.04 ml Other 80 ml Output Urine Total 420 ml 665 ml Gastric Drainage Total 100 ml # Bowel Movements 1 Laboratory Tests 04/08/19 04:00: White Blood Count 9.2, Red Blood Count 2.41L, Hemoglobin 7.0L, Hematocrit 19.6L , Mean Corpuscular Volume 81, Mean Corpuscular Hemoglobin 29.0, Mean Corpuscular Hemoglobin Concent 35.7, Red Cell Distribution Width 16.2H, Platelet Count 140L, Mean Platelet Volume 5.5L, Neutrophils (%) (Auto) , Lymphocytes (%) (Auto) , Monocytes (%) (Auto) , Eosinophils (%) (Auto) , Basophils (%) (Auto) , Differential Total Cells Counted 100, Neutrophils % ( Manual) 70, Lymphocytes % (Manual) 19L, Monocytes % (Manual) 5, Eosinophils % ( Manual) 6H, Basophils % (Manual) 0, Band Neutrophils 0, Platelet Estimate DecreasedL, Platelet Morphology Normal, Anisocytosis 2+, Ovalocytes 1+, Acanthocytes 1+, Schistocytes 1+, Sodium Level 145, Potassium Level 3.7, Chloride Level 110H, Carbon Dioxide Level 28, Anion Gap 7, Blood Urea Nitrogen 24H, Creatinine 1.5H, Estimat Glomerular Filtration Rate , Glucose Level 107H, Calcium Level 10.3H Height (Feet): 5 Height (Inches): 7.00 Weight (Pounds): 128 General Appearance: lethargic EENT: normal ENT inspection Neck: normal alignment Cardiovascular: normal peripheral pulses, normal rate, regular rhythm Respiratory/Chest: chest wall non-tender, lungs clear, normal breath sounds Abdomen: normal bowel sounds, non tender, soft Extremities: normal inspection Edema: no edema noted Arm (L), no edema noted Arm (R), no edema noted Leg (L), no edema noted Leg (R), no edema noted Pedal (L), no edema noted Pedal (R), no edema noted Generalized Neurologic: motor weakness Skin: normal pigmentation, warm/dry Sawyer Toussaint DO Apr 08, 2019 10:31
--- NOTE | 2019-04-08 10:42 | NUR ---
COLLISION WORKER CONSULT COLLIN received a referral for healthcare POA document. SW reviewed the chart and there is no copy of AD/POLST. COLLIN discussed pt's condition w/ assigned RN that pt may not make the decision by himself d/t current medical condition. SW spoke w/ pt's son Lakhwinder De Leon [phone], confirmed that his , Amy De Leon will be the primary decision maker and the point of contact. COLLIN spoke w/ Amy De Leon [phone] and confirmed that she is the primary decision maker. Per Amy, pt may have a copy of POLST from other hospitals that she will find it out. SW to F/U as needed. Signed: 04/08/19 at 1051 by BRI POLANCO <Co-Signature Required>
--- NOTE | 2019-04-08 10:46 | NUR ---
NURSE NOTES: MD Zainab made rounds, updates given about PT, will carry out orders.
--- NOTE | 2019-04-08 10:51 | NUR ---
NURSE NOTES: Called and spoke directly to MD Reid to report ABG results, orders given to extubate PT and place PT on 40% on cool aerosol, read back orders to confirm with MD. CODY Kim made aware. Will place orders on behalf of .
--- NOTE | 2019-04-08 11:24 | Nephrology Progress Note ---
Assessment/Plan Status: unchanged Assessment/Plan: A/P 1. LETA. secondary to dehydration from hypercalcemia/ischemic ATN post arrest - Cr improved to 1.5 2. Prostate cancer with tremendously elevated PSA 800 Defer to Hematology/Oncology. 3. Hypokalemia. corrected 4. Sepsis and UTI per Infectious Disease. - IV pressors and Abx 5. Hypernatremia- resolved. DC D5W 6. S/P Cardiac Arrest- extubate today 7- Hypercalcemia of malignancy- DC Calcitonin as Ca 10.3 Subjective Date patient seen: Apr 08, 2019 Time patient seen: 11:23 ROS Limited/Unobtainable: Yes Allergies: Coded Allergies: No Known Allergies (Unverified , 04/03/19) Subjective Patient awake and intubated Objective Last 24 Hour Vital Signs Date Time Temp Pulse Resp B/P (MAP) Pulse Ox O2 Delivery O2 Flow Rate FiO2 04/08/19 11:00 99 26 110/77 (88) 100 04/08/19 10:39 108 22 40 40 04/08/19 10:00 99 22 121/81 (94) 100 04/08/19 09:39 107 26 40 40 04/08/19 09:00 100 18 93/59 (70) 100 04/08/19 08:52 135 22 40 04/08/19 08:04 126/58 04/08/19 08:00 117 04/08/19 08:00 98.8 108 23 126/58 (80) 100 04/08/19 08:00 Mechanical Ventilator 04/08/19 07:30 40 04/08/19 07:10 100 04/08/19 07:03 100 19 40 40 04/08/19 07:00 94 19 115/60 (78) 100 04/08/19 06:30 88 18 117/53 (74) 100 04/08/19 06:30 97 18 04/08/19 06:00 85 18 101/53 (69) 100 04/08/19 05:30 97 21 112/62 (79) 100 04/08/19 05:10 95 18 40 04/08/19 05:00 85 18 108/58 (75) 100 04/08/19 04:30 83 18 115/60 (78) 100 04/08/19 04:00 99.1 77 18 102/57 (72) 100 04/08/19 04:00 Mechanical Ventilator 04/08/19 04:00 40 04/08/19 03:30 82 18 108/61 (77) 100 04/08/19 03:01 82 04/08/19 03:00 90 17 109/67 (81) 100 04/08/19 02:52 75 18 40 04/08/19 02:30 82 18 90/65 (73) 100 04/08/19 02:00 103 18 158/79 (105) 99 04/08/19 01:30 81 18 130/60 (83) 100 04/08/19 01:00 81 18 121/66 (84) 100 04/08/19 00:54 82 18 40 04/08/19 00:30 75 18 104/56 (72) 100 04/08/19 00:00 Mechanical Ventilator 04/08/19 00:00 98.6 74 18 114/64 (81) 100 04/07/19 23:30 93 19 145/78 (100) 100 04/07/19 23:16 98 04/07/19 23:00 85 18 133/58 (83) 100 04/07/19 22:53 125 21 40 04/07/19 22:30 107 17 135/75 (95) 96 04/07/19 22:00 91 18 141/74 (96) 100 04/07/19 21:45 82 18 122/60 (80) 100 04/07/19 21:30 85 18 120/78 (92) 99 04/07/19 21:00 102 21 138/72 (94) 100 04/07/19 20:53 95 19 40 04/07/19 20:30 83 18 117/71 (86) 100 04/07/19 20:00 Mechanical Ventilator 04/07/19 20:00 40 04/07/19 20:00 99.4 84 18 128/68 (88) 99 04/07/19 19:32 78 04/07/19 19:30 85 18 125/63 (83) 100 04/07/19 19:00 102 21 132/80 (97) 92 04/07/19 18:58 99 22 40 04/07/19 18:00 92 18 121/67 (85) 98 04/07/19 18:00 40 04/07/19 17:10 128 29 40 04/07/19 17:00 99.2 118 20 120/70 (87) 100 04/07/19 16:04 101 04/07/19 16:00 86 18 96/60 (72) 100 04/07/19 16:00 Mechanical Ventilator 04/07/19 15:16 104 22 40 04/07/19 15:00 95 20 105/58 (74) 100 04/07/19 14:00 115 20 119/61 (80) 100 04/07/19 13:00 90 18 98/57 (71) 100 04/07/19 12:45 93 18 101/56 (71) 100 04/07/19 12:36 100 18 40 04/07/19 12:30 99 19 110/56 (74) 100 04/07/19 12:15 92 18 113/57 (75) 100 04/07/19 12:00 98.2 90 18 118/62 (80) 100 04/07/19 12:00 Mechanical Ventilator 04/07/19 12:00 113/57 04/07/19 12:00 89 04/07/19 11:30 100 18 120/67 (84) 100 Intake and Output 04/07/19 04/08/19 19:00 07:00 Intake Total 1127.500 ml 1025.04 ml Output Total 420 ml 765 ml Balance 707.500 ml 260.04 ml IV Total 1047.500 ml 1025.04 ml Other 80 ml Output Urine Total 420 ml 665 ml Gastric Drainage Total 100 ml # Bowel Movements 1 Laboratory Tests 04/08/19 04:00: White Blood Count 9.2, Red Blood Count 2.41L, Hemoglobin 7.0L, Hematocrit 19.6L , Mean Corpuscular Volume 81, Mean Corpuscular Hemoglobin 29.0, Mean Corpuscular Hemoglobin Concent 35.7, Red Cell Distribution Width 16.2H, Platelet Count 140L, Mean Platelet Volume 5.5L, Neutrophils (%) (Auto) , Lymphocytes (%) (Auto) , Monocytes (%) (Auto) , Eosinophils (%) (Auto) , Basophils (%) (Auto) , Differential Total Cells Counted 100, Neutrophils % ( Manual) 70, Lymphocytes % (Manual) 19L, Monocytes % (Manual) 5, Eosinophils % ( Manual) 6H, Basophils % (Manual) 0, Band Neutrophils 0, Platelet Estimate DecreasedL, Platelet Morphology Normal, Anisocytosis 2+, Ovalocytes 1+, Acanthocytes 1+, Schistocytes 1+, Sodium Level 145, Potassium Level 3.7, Chloride Level 110H, Carbon Dioxide Level 28, Anion Gap 7, Blood Urea Nitrogen 24H, Creatinine 1.5H, Estimat Glomerular Filtration Rate , Glucose Level 107H, Calcium Level 10.3H 04/08/19 10:23: Arterial Blood pH 7.381, Arterial Blood Partial Pressure CO2 45.8H, Arterial Blood Partial Pressure O2 79.5, Arterial Blood HCO3 26.5H, Arterial Blood Oxygen Saturation 94.3L, Arterial Blood Base Excess 1.2, Antonio Test Positive Height (Feet): 5 Height (Inches): 7.00 Weight (Pounds): 116 General Appearance: no apparent distress EENT: normal ENT inspection Neck: normal alignment, supple Cardiovascular: normal rate, regular rhythm Respiratory/Chest: lungs clear, normal breath sounds Abdomen: non tender Edema: no edema noted Arm (L), no edema noted Arm (R), no edema noted Leg (L), no edema noted Leg (R), no edema noted Pedal (L), no edema noted Pedal (R), no edema noted Generalized Carlos White MD Apr 08, 2019 11:24
--- NOTE | 2019-04-08 11:30 | NUR ---
NURSE NOTES: Called PT daughter in law,Amy, for two nurse telephone consent for transfusion; secondary nurse to verify consent CODY Kim. Will carry out orders to transfuse PT.
--- NOTE | 2019-04-08 11:59 | Infectious Diseases Prog Note ---
Assessment/Plan Assessment/Plan Abx: Ceftriaxone 04/03- Assessment: s/p asystole cardiac arrest 2/3 VDRF Shock, off pressors now Sepsis UTI -u/a wbc 20-30, nit +, leuk +3; ucx >100k E.coli (R amp, bactrim; otherwise S) Afebrile Mild leukocytosis, recurrent- SP -2/4 Bcx p u/a wbc tnct, nit neg, leuk + -2/3 CXR: Interval resolution of right apical density. This suggests the diagnosis was atelectasis rather than an apical cap from blood, which was suggested as a possibility on the prior report. The right upper lobe atelectasis has resolved. Suspicion of new atelectasis at the right lung base. s/p recent fall LETA Hypokalemia prostate CA stage III chronic indwelling guerra catheter Plan: -Continue empiric ZOsyn #2 (abx d #6) and add IV Vancomycin #2 given rise in WBC and pressors requirements -2/4 SP Ceftriaxone #4 -f/u cx -Monitor CBC/CMP, temperatures -aspiration precautions -ETT/ICU care -Cards, renal f/u -repeat cultures Thank you for this consultation. Will continue to follow along with you. Discussed with RN Subjective Allergies: Coded Allergies: No Known Allergies (Unverified , 04/03/19) Subjective afebrile leukocytosis resolved remains intubated in ICU off pressors now Objective Vital Signs Last 24 Hour Vital Signs Date Time Temp Pulse Resp B/P (MAP) Pulse Ox O2 Delivery O2 Flow Rate FiO2 04/08/19 11:00 99 26 110/77 (88) 100 04/08/19 10:39 108 22 40 40 04/08/19 10:00 99 22 121/81 (94) 100 04/08/19 09:39 107 26 40 40 04/08/19 09:00 100 18 93/59 (70) 100 04/08/19 08:52 135 22 40 04/08/19 08:04 126/58 04/08/19 08:00 117 04/08/19 08:00 98.8 108 23 126/58 (80) 100 04/08/19 08:00 Mechanical Ventilator 04/08/19 07:30 40 04/08/19 07:10 100 2/5/20 07:03 100 19 40 40 04/08/19 07:00 94 19 115/60 (78) 100 04/08/19 06:30 88 18 117/53 (74) 100 04/08/19 06:30 97 18 04/08/19 06:00 85 18 101/53 (69) 100 04/08/19 05:30 97 21 112/62 (79) 100 04/08/19 05:10 95 18 40 04/08/19 05:00 85 18 108/58 (75) 100 04/08/19 04:30 83 18 115/60 (78) 100 04/08/19 04:00 99.1 77 18 102/57 (72) 100 04/08/19 04:00 Mechanical Ventilator 04/08/19 04:00 40 04/08/19 03:30 82 18 108/61 (77) 100 04/08/19 03:01 82 04/08/19 03:00 90 17 109/67 (81) 100 04/08/19 02:52 75 18 40 04/08/19 02:30 82 18 90/65 (73) 100 04/08/19 02:00 103 18 158/79 (105) 99 04/08/19 01:30 81 18 130/60 (83) 100 04/08/19 01:00 81 18 121/66 (84) 100 04/08/19 00:54 82 18 40 04/08/19 00:30 75 18 104/56 (72) 100 04/08/19 00:00 Mechanical Ventilator 04/08/19 00:00 98.6 74 18 114/64 (81) 100 04/07/19 23:30 93 19 145/78 (100) 100 04/07/19 23:16 98 04/07/19 23:00 85 18 133/58 (83) 100 04/07/19 22:53 125 21 40 04/07/19 22:30 107 17 135/75 (95) 96 04/07/19 22:00 91 18 141/74 (96) 100 04/07/19 21:45 82 18 122/60 (80) 100 04/07/19 21:30 85 18 120/78 (92) 99 04/07/19 21:00 102 21 138/72 (94) 100 04/07/19 20:53 95 19 40 04/07/19 20:30 83 18 117/71 (86) 100 04/07/19 20:00 Mechanical Ventilator 04/07/19 20:00 40 04/07/19 20:00 99.4 84 18 128/68 (88) 99 04/07/19 19:32 78 04/07/19 19:30 85 18 125/63 (83) 100 04/07/19 19:00 102 21 132/80 (97) 92 04/07/19 18:58 99 22 40 04/07/19 18:00 92 18 121/67 (85) 98 04/07/19 18:00 40 04/07/19 17:10 128 29 40 04/07/19 17:00 99.2 118 20 120/70 (87) 100 04/07/19 16:04 101 04/07/19 16:00 86 18 96/60 (72) 100 04/07/19 16:00 Mechanical Ventilator 04/07/19 15:16 104 22 40 04/07/19 15:00 95 20 105/58 (74) 100 04/07/19 14:00 115 20 119/61 (80) 100 04/07/19 13:00 90 18 98/57 (71) 100 04/07/19 12:45 93 18 101/56 (71) 100 04/07/19 12:36 100 18 40 04/07/19 12:30 99 19 110/56 (74) 100 04/07/19 12:15 92 18 113/57 (75) 100 04/07/19 12:00 98.2 90 18 118/62 (80) 100 04/07/19 12:00 Mechanical Ventilator 04/07/19 12:00 113/57 04/07/19 12:00 89 Height (Feet): 5 Height (Inches): 7.00 Weight (Pounds): 116 Objective General Appearance: normal inspection, alert, Chronically Ill Head: atraumatic ENT: normal ENT inspection, normal voice, dry mucus membranes Neck: normal inspection, full range of motion, supple, no bony tend Respiratory: normal inspection, lungs clear, normal breath sounds, no respiratory distress, no retraction, no wheezing Cardiovascular #1: regular rate, rhythm, no edema Gastrointestinal: normal inspection, normal bowel sounds, non tender, soft, no guarding, no hernia Genitourinary: no CVA tenderness Musculoskeletal: normal inspection, back normal, normal range of motion Neurologic: alert, motor strength/tone normal, oriented, motor weakness, responsive, speech normal, other - atrophy to muscles Psychiatric: normal inspection, judgement/insight normal, mood/affect normal Skin: no rash Laboratory Tests Test 04/08/19 04:00 04/08/19 10:23 White Blood Count 9.2 K/UL (4.8-10.8) Red Blood Count 2.41 M/UL (4.70-6.10) L Hemoglobin 7.0 G/DL (14.2-18.0) L Hematocrit 19.6 % (42.0-52.0) L Mean Corpuscular Volume 81 FL (80-99) Mean Corpuscular Hemoglobin 29.0 PG (27.0-31.0) Mean Corpuscular Hemoglobin Concent 35.7 G/DL (32.0-36.0) Red Cell Distribution Width 16.2 % (11.6-14.8) H Platelet Count 140 K/UL (150-450) L Mean Platelet Volume 5.5 FL (6.5-10.1) L Neutrophils (%) (Auto) % (45.0-75.0) Lymphocytes (%) (Auto) % (20.0-45.0) Monocytes (%) (Auto) % (1.0-10.0) Eosinophils (%) (Auto) % (0.0-3.0) Basophils (%) (Auto) % (0.0-2.0) Differential Total Cells Counted 100 Neutrophils % (Manual) 70 % (45-75) Lymphocytes % (Manual) 19 % (20-45) L Monocytes % (Manual) 5 % (1-10) Eosinophils % (Manual) 6 % (0-3) H Basophils % (Manual) 0 % (0-2) Band Neutrophils 0 % (0-8) Platelet Estimate Decreased L Platelet Morphology Normal Anisocytosis 2+ Ovalocytes 1+ Acanthocytes 1+ Schistocytes 1+ Sodium Level 145 MMOL/L (136-145) Potassium Level 3.7 MMOL/L (3.5-5.1) Chloride Level 110 MMOL/L (98-107) H Carbon Dioxide Level 28 MMOL/L (21-32) Anion Gap 7 mmol/L (5-15) Blood Urea Nitrogen 24 mg/dL (7-18) H Creatinine 1.5 MG/DL (0.55-1.30) H Estimat Glomerular Filtration Rate mL/min (>60) Glucose Level 107 MG/DL (74-106) H Calcium Level 10.3 MG/DL (8.5-10.1) H Arterial Blood pH 7.381 (7.350-7.450) Arterial Blood Partial Pressure CO2 45.8 mmHg (35.0-45.0) H Arterial Blood Partial Pressure O2 79.5 mmHg (75.0-100.0) Arterial Blood HCO3 26.5 mmol/L (22.0-26.0) H Arterial Blood Oxygen Saturation 94.3 % (95-100) L Arterial Blood Base Excess 1.2 (-2-2) Antonio Test Positive Current Medications Medications (Trade) Dose Ordered Sig/[place] Route PRN Reason Start Time Stop Time Status Last Admin Dose Admin Albuterol/ Ipratropium (Albuterol/ Ipratropium) 3 ml EVERY 6 HOURS PRN HHN Shortness of Breath 04/06/19 12:00 04/10/19 06:29 Chlorhexidine Gluconate (Martha-Hex 2%) 1 applic DAILY@2000 TOPIC 04/06/19 20:00 05/06/19 19:59 04/07/19 19:37 Dopamine HCl/ Dextrose 250 ml @ 0 mls/hr Q24H IV 04/06/19 08:15 05/06/19 08:14 04/06/19 20:56 Enoxaparin Sodium (Lovenox) 30 mg DAILY SUBQ 04/06/19 09:00 05/04/19 08:59 Memantine (Namenda) 5 mg BID ORAL 04/06/19 09:00 05/04/19 17:59 04/08/19 09:18 Norepinephrine Bitartrate 4 mg/ Dextrose 250 ml @ 0 mls/hr Q24H IV 04/06/19 16:17 05/06/19 16:16 04/07/19 00:53 Pantoprazole (Protonix) 40 mg DAILY IVP 04/08/19 09:00 05/08/19 08:59 04/08/19 09:17 Piperacillin Sod/ Tazobactam Sod 3.375 gm/Sodium Chloride 110 ml @ 27.5 mls/hr EVERY 8 HOURS IVPB 04/07/19 10:00 04/12/19 09:59 04/08/19 05:11 Sertraline HCl (Zoloft) 25 mg DAILY ORAL 04/06/19 09:00 05/05/19 08:59 04/08/19 09:17 Vancomycin HCl (Vanco rx to dose) 1 ea DAILY PRN MISC Per rx protocol 04/07/19 08:15 05/07/19 08:14 Vancomycin HCl 500 mg/Dextrose 110 ml @ 110 mls/hr Q24H IVPB 04/08/19 10:00 04/13/19 09:59 04/08/19 09:18 Rafia Nielson M.D. Apr 08, 2019 11:59
--- NOTE | 2019-04-08 12:00 | NUR ---
NURSE NOTES: PT extubated by Samantha, RT @ 1200; suctioning given, placed PT on cool aerosol. Will continue to monitor PT.
--- NOTE | 2019-04-08 13:18 | NUR ---
NURSE NOTES: PT VS stable, oxygen saturation at 100% on venturi cool aerosol 40%. No S/S of respiratory distress noted. PT tolerating blood transfusion as well. Will continue to monitor PT.
--- NOTE | 2019-04-08 13:55 | NUR ---
NURSE NOTES:WOUND CARE NOTES:Pt presented on admission with non-blanching erythema sacrum and buttocks with surrounding darker skin tone without induration or tenderness when palpated. Partial thickness pressure injury noted to Sacrococcygeal area. Base of wound is beefy red ,moist with macerated borders (L)0.5cm x (W)1cm. No odor or exudate noted. Serous filled blister noted to thoracic spine.(L)1.5cm x (W)1cm. R heel is boggy with non-blanchable erythema. Pt denied tenderness when palpated. L heel is dry and callused. No other skin concerns noted. Tx.Plan:Apply Cavilon Skin Barrier to blister Thoracic spine. Cover with Optifoam drsg. Change every 7 days and prn. Apply Moisture Barrier Paste to sacrum. Cover with Optifoam drsg. Change every 3 days and prn. Apply Cavilon Skin Barrier to Both heels. Cover each heel with Optifoam drsg. Change every 7 days and prn. Reposition at least every 2hours or as tolerated. Off-load heels with pillow. APM/PREETI Mattress overlay.
--- NOTE | 2019-04-08 14:06 | NUR ---
NURSE NOTES: PT family Amy called, CN Judy answered / updates given. PT VS stable, remains on cool aerosol, no S/S of respiratory distress, will continue to monitor.
--- NOTE | 2019-04-08 14:31 | Hematology/Onc Progress Note ---
Assessment/Plan Assessment/Plan # Prostate cancer stage IV with psa >700, cr is worse, hydronephrosis noted, seen by renal, Dr. White. --> i did received records from [facility]. has regional lymphadenopathy, s/p transrectal biopsy with Gleasons 5+5 (2010) in all cores, apparently has had a 3 year course of androgen deprivation from 2011- 2014.also status post RADIATION to the prostate, then lost to followup. Following surviellance psa 0.45-->65, in 10/2016, and up to 127 in 12/2016, Ct scan showed recurrence of disease with lad but no bony mets, started on lupron 01/2017, psa fell yo 73-->46, has been sarted on zytiga + prednisone, and now psa progression on zytiga, he started xtandi in 01/2019 Psa 87. He did not go through urethral stenting, he has deferred treatment with chemo. --> He is a very poor historian, I have talked to the sister --> imaging has been noted --> as per urology recs, reviewed --> have called , no answer, trans to [facility]? --> poor prognosis given above history of treatment, defer transfer to [facility] --> psa 737-->757 # Hypercalcemia -- now acutely worse --> trend Ca++ 8.1-->13-->12 --> ivf has been started --> as per nephrology --> consider pamidronate v calcitonin v other agent # Episode of generalized weakness --> on ivf --> pt as needed # Hypokalemia --> replete prn # Dehydration --> on ivf # Atrophic changes without evident intracranial hemorrhage. --> as per neuro, remains confused # Respiratory failure s/p vent --> s/p vent intubated on 2/ # Hypernatremia as well as low BUN. --> on ivf # Poor prognosis # Dvt ppx lovenox sq Appreciate consultation and Jemal Rn Subjective Constitutional: Denies: no symptoms, chills, fever, malaise, weakness, other HEENT: Denies: no symptoms, eye pain, blurred vision, tearing, double vision, ear pain, ear discharge, nose pain, nose congestion, throat pain, throat swelling, mouth pain, mouth swelling, other Cardiovascular: Denies: no symptoms, chest pain, edema, irregular heart rate, lightheadedness, palpitations, syncope, other Respiratory: Denies: no symptoms, cough, shortness of breath, SOB with excertion, SOB at rest, sputum, wheezing, other Gastrointestinal/Abdominal: Denies: no symptoms, abdomen distended, abdominal pain, black stools, tarry stools, blood in stool, constipated, diarrhea, difficulty swallowing, nausea, poor appetite, poor fluid intake, rectal bleeding , vomiting, other Genitourinary: Denies: no symptoms, burning, discharge, frequency, flank pain, hematuria, incontinence, pain, urgency, other Neurologic/Psychiatric: Denies: no symptoms, anxiety, depressed, emotional problems, headache, numbness, paresthesia, pre-existing deficit, seizure, tingling, tremors, weakness, other Hematologic/Lymphatic: Denies: no symptoms, anemia, easy bleeding, easy bruising, adenopathy, other Allergies: Coded Allergies: No Known Allergies (Unverified , 04/03/19) Subjective 2/3: no events, apparently intubated today and transferred to the icu, will dw family 04/07: remains in the icu, critically ill, Ca++ 12, on vent, minimally responsive , on dopa, dw pcp and pulm 04/08: no major changes, no night sweats, labs have been reviewed, dw daughter, he is more alert Objective Objective Current Medications Medications (Trade) Dose Ordered Sig/[place]ena Route PRN Reason Start Time Stop Time Status Last Admin Dose Admin Albuterol/ Ipratropium (Albuterol/ Ipratropium) 3 ml EVERY 6 HOURS PRN HHN Shortness of Breath 04/06/19 12:00 04/10/19 06:29 Chlorhexidine Gluconate (Martha-Hex 2%) 1 applic DAILY@1999 TOPIC 04/06/19 20:00 05/06/19 19:59 04/07/19 19:37 Dopamine HCl/ Dextrose 250 ml @ 0 mls/hr Q24H IV 04/06/19 08:15 05/06/19 08:14 04/06/19 20:56 Enoxaparin Sodium (Lovenox) 30 mg DAILY SUBQ 04/06/19 09:00 05/04/19 08:59 Memantine (Namenda) 5 mg BID ORAL 04/06/19 09:00 05/04/19 17:59 04/08/19 09:18 Norepinephrine Bitartrate 4 mg/ Dextrose 250 ml @ 0 mls/hr Q24H IV 04/06/19 16:17 05/06/19 16:16 04/07/19 00:53 Pantoprazole (Protonix) 40 mg DAILY IVP 04/08/19 09:00 05/08/19 08:59 04/08/19 09:17 Piperacillin Sod/ Tazobactam Sod 3.375 gm/Sodium Chloride 110 ml @ 27.5 mls/hr EVERY 8 HOURS IVPB 04/07/19 10:00 04/12/19 09:59 04/08/19 05:11 Sertraline HCl (Zoloft) 25 mg DAILY ORAL 04/06/19 09:00 05/05/19 08:59 04/08/19 09:17 Vancomycin HCl (Vanco rx to dose) 1 ea DAILY PRN MISC Per rx protocol 04/07/19 08:15 05/07/19 08:14 Vancomycin HCl 500 mg/Dextrose 110 ml @ 110 mls/hr Q24H IVPB 04/08/19 10:00 04/13/19 09:59 04/08/19 09:18 Last 24 Hour Vital Signs Date Time Temp Pulse Resp B/P (MAP) Pulse Ox O2 Delivery O2 Flow Rate FiO2 04/08/19 14:00 117 21 158/90 (112) 100 04/08/19 13:00 110 21 148/88 (108) 100 04/08/19 12:13 100 Cool Aerosol 10.0 40 04/08/19 12:12 Venturi Mask 10.0 40 04/08/19 12:00 77 04/08/19 12:00 97.5 102 15 133/84 (100) 100 04/08/19 12:00 Venturi Mask 10.0 04/08/19 12:00 10.0 40 04/08/19 11:00 99 26 110/77 (88) 100 04/08/19 10:39 108 22 40 40 04/08/19 10:00 99 22 121/81 (94) 100 04/08/19 09:39 107 26 40 40 04/08/19 09:00 100 18 93/59 (70) 100 04/08/19 08:52 135 22 40 04/08/19 08:04 126/58 04/08/19 08:00 117 04/08/19 08:00 98.8 108 23 126/58 (80) 100 04/08/19 08:00 Mechanical Ventilator 04/08/19 07:30 40 04/08/19 07:10 100 04/08/19 07:03 100 19 40 40 04/08/19 07:00 94 19 115/60 (78) 100 04/08/19 06:30 88 18 117/53 (74) 100 04/08/19 06:30 97 18 04/08/19 06:00 85 18 101/53 (69) 100 04/08/19 05:30 97 21 112/62 (79) 100 04/08/19 05:10 95 18 40 04/08/19 05:00 85 18 108/58 (75) 100 04/08/19 04:30 83 18 115/60 (78) 100 04/08/19 04:00 99.1 77 18 102/57 (72) 100 04/08/19 04:00 Mechanical Ventilator 04/08/19 04:00 40 04/08/19 03:30 82 18 108/61 (77) 100 04/08/19 03:01 82 04/08/19 03:00 90 17 109/67 (81) 100 04/08/19 02:52 75 18 40 04/08/19 02:30 82 18 90/65 (73) 100 04/08/19 02:00 103 18 158/79 (105) 99 04/08/19 01:30 81 18 130/60 (83) 100 04/08/19 01:00 81 18 121/66 (84) 100 04/08/19 00:54 82 18 40 04/08/19 00:30 75 18 104/56 (72) 100 04/08/19 00:00 Mechanical Ventilator 04/08/19 00:00 98.6 74 18 114/64 (81) 100 04/07/19 23:30 93 19 145/78 (100) 100 04/07/19 23:16 98 04/07/19 23:00 85 18 133/58 (83) 100 04/07/19 22:53 125 21 40 04/07/19 22:30 107 17 135/75 (95) 96 04/07/19 22:00 91 18 141/74 (96) 100 04/07/19 21:45 82 18 122/60 (80) 100 04/07/19 21:30 85 18 120/78 (92) 99 04/07/19 21:00 102 21 138/72 (94) 100 04/07/19 20:53 95 19 40 04/07/19 20:30 83 18 117/71 (86) 100 04/07/19 20:00 Mechanical Ventilator 04/07/19 20:00 40 04/07/19 20:00 99.4 84 18 128/68 (88) 99 04/07/19 19:32 78 04/07/19 19:30 85 18 125/63 (83) 100 04/07/19 19:00 102 21 132/80 (97) 92 04/07/19 18:58 99 22 40 04/07/19 18:00 92 18 121/67 (85) 98 04/07/19 18:00 40 04/07/19 17:10 128 29 40 04/07/19 17:00 99.2 118 20 120/70 (87) 100 04/07/19 16:04 101 04/07/19 16:00 86 18 96/60 (72) 100 04/07/19 16:00 Mechanical Ventilator 04/07/19 15:16 104 22 40 04/07/19 15:00 95 20 105/58 (74) 100 04/07/19 14:00 115 20 119/61 (80) 100 04/07/19 13:00 90 18 98/57 (71) 100 04/07/19 12:45 93 18 101/56 (71) 100 04/07/19 12:36 100 18 40 04/07/19 12:30 99 19 110/56 (74) 100 04/07/19 12:15 92 18 113/57 (75) 100 04/07/19 12:00 98.2 90 18 118/62 (80) 100 04/07/19 12:00 Mechanical Ventilator 04/07/19 12:00 113/57 04/07/19 12:00 89 04/07/19 11:30 100 18 120/67 (84) 100 04/07/19 11:18 96 18 40 04/07/19 11:00 86 18 119/64 (82) 100 04/07/19 11:00 106/63 04/07/19 10:45 40 04/07/19 10:30 90 18 111/71 (84) 100 04/07/19 10:30 117/62 04/07/19 10:00 117/64 04/07/19 10:00 87 18 123/71 (88) 100 04/07/19 09:30 88 18 113/66 (82) 100 04/07/19 09:15 85 18 111/63 (79) 100 04/07/19 09:13 100 04/07/19 09:00 86 18 111/59 (76) 100 04/07/19 09:00 111/63 04/07/19 08:45 88 18 118/61 (80) 100 04/07/19 08:35 85 18 60 04/07/19 08:30 88 18 116/71 (86) 100 04/07/19 08:30 118/61 04/07/19 08:00 94 04/07/19 08:00 141/80 04/07/19 08:00 Mechanical Ventilator 04/07/19 08:00 60 04/07/19 08:00 91 18 111/66 (81) 100 04/07/19 07:30 98.1 83 18 114/66 (82) 100 04/07/19 07:28 85 18 60 04/07/19 07:15 85 18 126/71 (89) 100 04/07/19 07:00 87 18 105/66 (79) 100 04/07/19 06:45 87 19 114/66 (82) 100 04/07/19 06:30 85 18 04/07/19 06:30 92 19 121/78 (92) 100 04/07/19 06:15 103 19 110/72 (85) 100 04/07/19 06:00 99 20 110/68 (82) 100 04/07/19 05:45 92 20 115/63 (80) 100 04/07/19 05:30 89 19 120/67 (84) 99 04/07/19 05:15 92 19 102/60 (74) 100 04/07/19 05:14 101 20 60 04/07/19 05:00 91 19 105/67 (80) 94 04/07/19 04:45 97 20 114/67 (83) 96 2/4/20 04:30 101 20 112/66 (81) 95 04/07/19 04:15 96 22 104/59 (74) 100 04/07/19 04:01 103 34 97/60 (72) 99 04/07/19 04:00 Mechanical Ventilator 04/07/19 04:00 97.7 109 28 91/63 (72) 04/07/19 03:45 119 23 130/80 (97) 97 04/07/19 03:30 123 32 159/81 (107) 91 04/07/19 03:30 136/81 04/07/19 03:15 123 25 136/81 (99) 91 04/07/19 03:03 124 04/07/19 03:00 123 28 189/85 (119) 82 04/07/19 03:00 114/74 04/07/19 02:59 123 27 60 04/07/19 02:45 93 22 114/74 (87) 100 04/07/19 02:30 100 22 119/75 (90) 100 04/07/19 02:20 114/68 04/07/19 02:15 102 26 114/68 (83) 100 04/07/19 02:00 105 20 150/88 (108) 99 04/07/19 02:00 150/88 04/07/19 02:00 150/88 04/07/19 01:45 91 24 138/76 (96) 100 04/07/19 01:30 94 18 131/73 (92) 100 04/07/19 01:15 98 20 136/75 (95) 100 04/07/19 01:00 79 18 139/67 (91) 100 04/07/19 00:53 133/70 04/07/19 00:53 82 18 60 04/07/19 00:45 133/70 04/07/19 00:45 82 18 133/70 (91) 100 04/07/19 00:30 81 18 137/70 (92) 100 04/07/19 00:15 86 18 137/70 (92) 100 04/07/19 00:02 88 04/07/19 00:00 99.5 84 18 137/71 (93) 100 04/07/19 00:00 Mechanical Ventilator 04/06/19 23:45 90 17 132/72 (92) 100 /20 23:30 84 18 134/66 (88) 100 2/20 23:15 82 18 126/66 (86) 100 220 23:08 89 18 60 220 23:03 85 2/20 23:00 83 17 134/77 (96) 100 2/20 22:45 86 18 122/55 (77) 100 20 22:30 86 18 120/67 (84) 100 20 22:15 90 18 120/61 (80) 100 220 22:00 88 18 107/60 (76) 100 20 21:45 87 18 120/58 (78) 100 20 21:30 88 18 114/64 (81) 100 04/06/19 21:15 92 18 112/61 (78) 100 04/06/19 21:03 93 18 60 04/06/19 21:00 94 18 109/57 (74) 100 04/06/19 20:56 97/57 04/06/19 20:45 99 18 97/57 (70) 100 04/06/19 20:30 121 18 112/64 (80) 100 20 20:15 110 20 101/67 (78) 100 04/06/19 20:00 100 04/06/19 20:00 Mechanical Ventilator 04/06/19 20:00 99.9 112 21 107/66 (80) 100 04/06/19 19:45 112 20 106/54 (71) 100 04/06/19 19:30 123 23 100/42 (61) 100 04/06/19 19:20 112 /05/21 19:15 113 21 98/58 (71) 100 04/06/19 19:12 113 21 60 04/06/19 19:00 109 20 102/54 (70) 100 04/06/19 19:00 99/65 220 19:00 99/65 /20 18:45 109 18 101/56 (71) 100 /05/21 18:30 114/63 2//20 18:30 114/43 2/20 18:30 127 22 124/99 (107) 100 04/06/19 18:15 111 18 118/54 (75) 100 04/06/19 18:00 112/62 04/06/19 18:00 112/62 04/06/19 18:00 96 18 117/60 (79) 100 04/06/19 17:45 88 18 113/62 (79) 100 04/06/19 17:30 91 18 108/54 (72) 100 04/06/19 17:30 105/43 04/06/19 17:19 92 18 60 04/06/19 17:15 103 18 95/34 (54) 100 04/06/19 17:15 84/37 04/06/19 17:00 110 18 105/38 (60) 98 04/06/19 17:00 91/49 04/06/19 17:00 104/47 04/06/19 16:56 104/47 04/06/19 16:50 99/55 04/06/19 16:45 107 18 99/55 (70) 100 04/06/19 16:30 105 18 102/48 (66) 100 04/06/19 16:15 104 18 100/38 (58) 100 04/06/19 16:00 103 04/06/19 16:00 93/47 04/06/19 16:00 100 04/06/19 16:00 Mechanical Ventilator 04/06/19 16:00 98.6 104 18 93/47 (62) 100 04/06/19 15:45 101 18 96/54 (68) 100 04/06/19 15:30 116 16 83/54 (64) 100 04/06/19 15:20 134 18 100 04/06/19 15:15 89/47 04/06/19 15:15 105 17 101/58 (72) 100 04/06/19 15:00 98 18 87/47 (60) 100 04/06/19 15:00 71/51 04/06/19 14:45 95 18 91/51 (64) 100 Intake and Output 04/07/19 04/08/19 19:00 07:00 Intake Total 1127.500 ml 1025.04 ml Output Total 420 ml 765 ml Balance 707.500 ml 260.04 ml IV Total 1047.500 ml 1025.04 ml Other 80 ml Output Urine Total 420 ml 665 ml Gastric Drainage Total 100 ml # Bowel Movements 1 Labs Test 04/06/19 06:05 04/06/19 10:00 04/06/19 11:00 04/06/19 17:30 White Blood Count 9.7 K/UL (4.8-10.8) 12.2 K/UL (4.8-10.8) Red Blood Count 3.12 M/UL (4.70-6.10) 3.03 M/UL (4.70-6.10) Hemoglobin 8.8 G/DL (14.2-18.0) 8.3 G/DL (14.2-18.0) Hematocrit 26.1 % (42.0-52.0) 26.4 % (42.0-52.0) Mean Corpuscular Volume 84 FL (80-99) 87 FL (80-99) Mean Corpuscular Hemoglobin 28.1 PG (27.0-31.0) 27.5 PG (27.0-31.0) Mean Corpuscular Hemoglobin Concent 33.6 G/DL (32.0-36.0) 31.6 G/DL (32.0-36.0) Red Cell Distribution Width 16.3 % (11.6-14.8) 17.1 % (11.6-14.8) Platelet Count 239 K/UL (150-450) 219 K/UL (150-450) Mean Platelet Volume 5.0 FL (6.5-10.1) 6.1 FL (6.5-10.1) Neutrophils (%) (Auto) 80.0 % (45.0-75.0) % (45.0-75.0) Lymphocytes (%) (Auto) 10.4 % (20.0-45.0) % (20.0-45.0) Monocytes (%) (Auto) 7.3 % (1.0-10.0) % (1.0-10.0) Eosinophils (%) (Auto) 1.8 % (0.0-3.0) % (0.0-3.0) Basophils (%) (Auto) 0.5 % (0.0-2.0) % (0.0-2.0) Sodium Level 152 MMOL/L (136-145) 152 MMOL/L (136-145) Potassium Level 3.8 MMOL/L (3.5-5.1) 3.5 MMOL/L (3.5-5.1) Chloride Level 116 MMOL/L (98-107) 116 MMOL/L (98-107) Carbon Dioxide Level 31 MMOL/L (21-32) 31 MMOL/L (21-32) Anion Gap 5 mmol/L (5-15) 5 mmol/L (5-15) Blood Urea Nitrogen 24 mg/dL (7-18) 26 mg/dL (7-18) Creatinine 1.5 MG/DL (0.55-1.30) 1.5 MG/DL (0.55-1.30) Estimat Glomerular Filtration Rate mL/min (>60) mL/min (>60) Glucose Level 140 MG/DL (74-106) 132 MG/DL (74-106) Calcium Level 12.5 MG/DL (8.5-10.1) 11.6 MG/DL (8.5-10.1) Troponin I 0.030 ng/mL (0.000-0.056) 0.074 ng/mL (0.000-0.056) 0.099 ng/mL (0.000-0.056) Arterial Blood pH 7.308 (7.350-7.450) Arterial Blood Partial Pressure CO2 59.9 mmHg (35.0-45.0) Arterial Blood Partial Pressure O2 70.7 mmHg (75.0-100.0) Arterial Blood HCO3 29.3 mmol/L (22.0-26.0) Arterial Blood Oxygen Saturation 92.5 % (95-100) Arterial Blood Base Excess 2.3 (-2-2) Antonio Test Positive Differential Total Cells Counted 100 Neutrophils % (Manual) 76 % (45-75) Lymphocytes % (Manual) 9 % (20-45) Monocytes % (Manual) 5 % (1-10) Eosinophils % (Manual) 2 % (0-3) Basophils % (Manual) 0 % (0-2) Band Neutrophils 8 % (0-8) Platelet Estimate Adequate Platelet Morphology Normal Hypochromasia 1+ Anisocytosis 1+ Prothrombin Time 11.4 SEC (9.30-11.50) Prothromb Time International Ratio 1.1 (0.9-1.1) Activated Partial Thromboplast Time 24 SEC (23-33) Lactic Acid Level 1.60 mmol/L (0.4-2.0) Total Bilirubin 0.3 MG/DL (0.2-1.0) Aspartate Amino Transf (AST/SGOT) 70 U/L (15-37) Alanine Aminotransferase (ALT/SGPT) 25 U/L (12-78) Alkaline Phosphatase 75 U/L (46-116) Total Protein 5.9 G/DL (6.4-8.2) Albumin 2.1 G/DL (3.4-5.0) Globulin 3.8 g/dL Albumin/Globulin Ratio 0.6 (1.0-2.7) Test 04/07/19 03:10 04/07/19 09:50 04/07/19 09:53 04/08/19 04:00 White Blood Count 14.1 K/UL (4.8-10.8) 9.2 K/UL (4.8-10.8) Red Blood Count 3.25 M/UL (4.70-6.10) 2.41 M/UL (4.70-6.10) Hemoglobin 9.2 G/DL (14.2-18.0) 7.0 G/DL (14.2-18.0) Hematocrit 26.7 % (42.0-52.0) 19.6 % (42.0-52.0) Mean Corpuscular Volume 82 FL (80-99) 81 FL (80-99) Mean Corpuscular Hemoglobin 28.2 PG (27.0-31.0) 29.0 PG (27.0-31.0) Mean Corpuscular Hemoglobin Concent 34.4 G/DL (32.0-36.0) 35.7 G/DL (32.0-36.0) Red Cell Distribution Width 16.5 % (11.6-14.8) 16.2 % (11.6-14.8) Platelet Count 220 K/UL (150-450) 140 K/UL (150-450) Mean Platelet Volume 4.8 FL (6.5-10.1) 5.5 FL (6.5-10.1) Neutrophils (%) (Auto) 74.7 % (45.0-75.0) % (45.0-75.0) Lymphocytes (%) (Auto) 16.0 % (20.0-45.0) % (20.0-45.0) Monocytes (%) (Auto) 7.0 % (1.0-10.0) % (1.0-10.0) Eosinophils (%) (Auto) 1.9 % (0.0-3.0) % (0.0-3.0) Basophils (%) (Auto) 0.4 % (0.0-2.0) % (0.0-2.0) Erythrocyte Sedimentation Rate 118 MM/HR (0-20) Prothrombin Time 12.0 SEC (9.30-11.50) Prothromb Time International Ratio 1.1 (0.9-1.1) Activated Partial Thromboplast Time 27 SEC (23-33) Sodium Level 150 MMOL/L (136-145) 145 MMOL/L (136-145) Potassium Level 3.8 MMOL/L (3.5-5.1) 3.7 MMOL/L (3.5-5.1) Chloride Level 113 MMOL/L (98-107) 110 MMOL/L (98-107) Carbon Dioxide Level 29 MMOL/L (21-32) 28 MMOL/L (21-32) Anion Gap 8 mmol/L (5-15) 7 mmol/L (5-15) Blood Urea Nitrogen 27 mg/dL (7-18) 24 mg/dL (7-18) Creatinine 1.7 MG/DL (0.55-1.30) 1.5 MG/DL (0.55-1.30) Estimat Glomerular Filtration Rate mL/min (>60) mL/min (>60) Glucose Level 137 MG/DL (74-106) 107 MG/DL (74-106) Calcium Level 12.4 MG/DL (8.5-10.1) 10.3 MG/DL (8.5-10.1) Total Bilirubin 0.3 MG/DL (0.2-1.0) Aspartate Amino Transf (AST/SGOT) 69 U/L (15-37) Alanine Aminotransferase (ALT/SGPT) 24 U/L (12-78) Alkaline Phosphatase 87 U/L (46-116) Troponin I 0.088 ng/mL (0.000-0.056) C-Reactive Protein, Quantitative 16.0 mg/dL (0.00-0.90) Pro-B-Type Natriuretic Peptide 2544 pg/mL (0-125) Total Protein 6.5 G/DL (6.4-8.2) Albumin 2.2 G/DL (3.4-5.0) Globulin 4.3 g/dL Albumin/Globulin Ratio 0.5 (1.0-2.7) Amylase Level 72 U/L (25-115) Lipase 61 U/L (73-393) Thyroid Stimulating Hormone (TSH) 2.727 uiU/mL (0.358-3.740) Free Thyroxine 0.92 NG/DL (0.76-1.46) Urine Color Yellow Urine Appearance Slightly cloudy Urine pH 6 (4.5-8.0) Urine Specific [place] 1.010 (1.005-1.035) Urine Protein 3+ (NEGATIVE) Urine Glucose (UA) Negative (NEGATIVE) Urine Ketones Negative (NEGATIVE) Urine Blood 5+ (NEGATIVE) Urine Nitrite Negative (NEGATIVE) Urine Bilirubin Negative (NEGATIVE) Urine Urobilinogen Normal MG/DL (0.0-1.0) Urine Leukocyte Esterase 3+ (NEGATIVE) Urine RBC 20-30 /HPF (0 - 0) Urine WBC Tntc /HPF (0 - 0) Urine Squamous Epithelial Cells Occasional /LPF Urine Bacteria Few /HPF (NONE) Arterial Blood pH 7.434 (7.350-7.450) Arterial Blood Partial Pressure CO2 40.2 mmHg (35.0-45.0) Arterial Blood Partial Pressure O2 166.1 mmHg (75.0-100.0) Arterial Blood HCO3 26.3 mmol/L (22.0-26.0) Arterial Blood Oxygen Saturation 98.6 % (95-100) Arterial Blood Base Excess 1.9 (-2-2) Antonio Test Positive Differential Total Cells Counted 100 Neutrophils % (Manual) 70 % (45-75) Lymphocytes % (Manual) 19 % (20-45) Monocytes % (Manual) 5 % (1-10) Eosinophils % (Manual) 6 % (0-3) Basophils % (Manual) 0 % (0-2) Band Neutrophils 0 % (0-8) Platelet Estimate Decreased Platelet Morphology Normal Anisocytosis 2+ Ovalocytes 1+ Acanthocytes 1+ Schistocytes 1+ Test 04/08/19 10:23 04/08/19 13:00 Arterial Blood pH 7.381 (7.350-7.450) Arterial Blood Partial Pressure CO2 45.8 mmHg (35.0-45.0) Arterial Blood Partial Pressure O2 79.5 mmHg (75.0-100.0) Arterial Blood HCO3 26.5 mmol/L (22.0-26.0) Arterial Blood Oxygen Saturation 94.3 % (95-100) Arterial Blood Base Excess 1.2 (-2-2) Antonio Test Positive Height (Feet): 5 Height (Inches): 7.00 Weight (Pounds): 116 Objective General: normal inspection, alert, Chronically Ill Respiratory: s/p vent++ Cardiovascular: regular rate, rhythm, no edema Gastrointestinal: normal inspection, normal bowel sounds Genitourinary: no CVA tenderness Mus: normal inspection, back normal, normal range of motion Neurologic: alert, motor strength/tone normal, oriented + confused Psychiatric: normal inspection, judgement/insight normal Skin: no rash Andreas Monroy MD Apr 08, 2019 14:31
--- NOTE | 2019-04-08 14:33 | Cardiac Electrophysiology PN ---
Assessment/Plan Assessment/Plan 1. Status post bradycardic arrest with asystole. No evidence of ventricular tachycardia or ventricular fibrillation. Could be secondary to respiratory arrest. Clonidine was discontinued. EF 65%. No further juan antonio episodes. All 3 troponins were less than 0.1 2. S/P Respiratory failure, extubated today 3. History of stage III prostate cancer, followed by Dr. Monroy. 4. Hypotension. Off Levophed on iv Abx. BP running high. Add prn iv hydralazine 5. Hypercalcemia due to prostate cancer. 6. Hypernatremia. The patient is on IV fluids. 7. Anemia, Getting PRBC today. MIKE RN Subjective Subjective In ICU off pressors and extubated at around noon today. Getting PRBC. IN SR. BP running high now. Objective Last 24 Hour Vital Signs Date Time Temp Pulse Resp B/P (MAP) Pulse Ox O2 Delivery O2 Flow Rate FiO2 04/08/19 14:00 117 21 158/90 (112) 100 04/08/19 13:00 110 21 148/88 (108) 100 04/08/19 12:13 100 Cool Aerosol 10.0 40 04/08/19 12:12 Venturi Mask 10.0 40 04/08/19 12:00 77 04/08/19 12:00 97.5 102 15 133/84 (100) 100 04/08/19 12:00 Venturi Mask 10.0 04/08/19 12:00 10.0 40 04/08/19 11:00 99 26 110/77 (88) 100 04/08/19 10:39 108 22 40 40 04/08/19 10:00 99 22 121/81 (94) 100 04/08/19 09:39 107 26 40 40 04/08/19 09:00 100 18 93/59 (70) 100 04/08/19 08:52 135 22 40 04/08/19 08:04 126/58 04/08/19 08:00 117 04/08/19 08:00 98.8 108 23 126/58 (80) 100 04/08/19 08:00 Mechanical Ventilator 04/08/19 07:30 40 04/08/19 07:10 100 04/08/19 07:03 100 19 40 40 04/08/19 07:00 94 19 115/60 (78) 100 04/08/19 06:30 88 18 117/53 (74) 100 04/08/19 06:30 97 18 04/08/19 06:00 85 18 101/53 (69) 100 04/08/19 05:30 97 21 112/62 (79) 100 04/08/19 05:10 95 18 40 04/08/19 05:00 85 18 108/58 (75) 100 04/08/19 04:30 83 18 115/60 (78) 100 04/08/19 04:00 99.1 77 18 102/57 (72) 100 04/08/19 04:00 Mechanical Ventilator 04/08/19 04:00 40 04/08/19 03:30 82 18 108/61 (77) 100 04/08/19 03:01 82 04/08/19 03:00 90 17 109/67 (81) 100 04/08/19 02:52 75 18 40 04/08/19 02:30 82 18 90/65 (73) 100 04/08/19 02:00 103 18 158/79 (105) 99 04/08/19 01:30 81 18 130/60 (83) 100 04/08/19 01:00 81 18 121/66 (84) 100 04/08/19 00:54 82 18 40 04/08/19 00:30 75 18 104/56 (72) 100 04/08/19 00:00 Mechanical Ventilator 04/08/19 00:00 98.6 74 18 114/64 (81) 100 04/07/19 23:30 93 19 145/78 (100) 100 04/07/19 23:16 98 04/07/19 23:00 85 18 133/58 (83) 100 04/07/19 22:53 125 21 40 04/07/19 22:30 107 17 135/75 (95) 96 04/07/19 22:00 91 18 141/74 (96) 100 04/07/19 21:45 82 18 122/60 (80) 100 04/07/19 21:30 85 18 120/78 (92) 99 04/07/19 21:00 102 21 138/72 (94) 100 04/07/19 20:53 95 19 40 04/07/19 20:30 83 18 117/71 (86) 100 04/07/19 20:00 Mechanical Ventilator 04/07/19 20:00 40 04/07/19 20:00 99.4 84 18 128/68 (88) 99 04/07/19 19:32 78 04/07/19 19:30 85 18 125/63 (83) 100 04/07/19 19:00 102 21 132/80 (97) 92 04/07/19 18:58 99 22 40 04/07/19 18:00 92 18 121/67 (85) 98 04/07/19 18:00 40 04/07/19 17:10 128 29 40 04/07/19 17:00 99.2 118 20 120/70 (87) 100 04/07/19 16:04 101 04/07/19 16:00 86 18 96/60 (72) 100 04/07/19 16:00 Mechanical Ventilator 04/07/19 15:16 104 22 40 04/07/19 15:00 95 20 105/58 (74) 100 Intake and Output 04/07/19 04/08/19 19:00 07:00 Intake Total 1127.500 ml 1025.04 ml Output Total 420 ml 765 ml Balance 707.500 ml 260.04 ml IV Total 1047.500 ml 1025.04 ml Other 80 ml Output Urine Total 420 ml 665 ml Gastric Drainage Total 100 ml # Bowel Movements 1 Laboratory Tests Test 04/08/19 04:00 04/08/19 10:23 04/08/19 13:00 White Blood Count 9.2 K/UL (4.8-10.8) Red Blood Count 2.41 M/UL (4.70-6.10) L Hemoglobin 7.0 G/DL (14.2-18.0) L Hematocrit 19.6 % (42.0-52.0) L Mean Corpuscular Volume 81 FL (80-99) Mean Corpuscular Hemoglobin 29.0 PG (27.0-31.0) Mean Corpuscular Hemoglobin Concent 35.7 G/DL (32.0-36.0) Red Cell Distribution Width 16.2 % (11.6-14.8) H Platelet Count 140 K/UL (150-450) L Mean Platelet Volume 5.5 FL (6.5-10.1) L Neutrophils (%) (Auto) % (45.0-75.0) Lymphocytes (%) (Auto) % (20.0-45.0) Monocytes (%) (Auto) % (1.0-10.0) Eosinophils (%) (Auto) % (0.0-3.0) Basophils (%) (Auto) % (0.0-2.0) Differential Total Cells Counted 100 Neutrophils % (Manual) 70 % (45-75) Lymphocytes % (Manual) 19 % (20-45) L Monocytes % (Manual) 5 % (1-10) Eosinophils % (Manual) 6 % (0-3) H Basophils % (Manual) 0 % (0-2) Band Neutrophils 0 % (0-8) Platelet Estimate Decreased L Platelet Morphology Normal Anisocytosis 2+ Ovalocytes 1+ Acanthocytes 1+ Schistocytes 1+ Sodium Level 145 MMOL/L (136-145) Potassium Level 3.7 MMOL/L (3.5-5.1) Chloride Level 110 MMOL/L (98-107) H Carbon Dioxide Level 28 MMOL/L (21-32) Anion Gap 7 mmol/L (5-15) Blood Urea Nitrogen 24 mg/dL (7-18) H Creatinine 1.5 MG/DL (0.55-1.30) H Estimat Glomerular Filtration Rate mL/min (>60) Glucose Level 107 MG/DL (74-106) H Calcium Level 10.3 MG/DL (8.5-10.1) H Arterial Blood pH 7.381 (7.350-7.450) Arterial Blood Partial Pressure CO2 45.8 mmHg (35.0-45.0) H Arterial Blood Partial Pressure O2 79.5 mmHg (75.0-100.0) Arterial Blood HCO3 26.5 mmol/L (22.0-26.0) H Arterial Blood Oxygen Saturation 94.3 % (95-100) L Arterial Blood Base Excess 1.2 (-2-2) Antonio Test Positive Stool Occult Blood Pending Objective HEENT: No JVD with NG tube in LUNGS: Coarse rhonchi. CARDIOVASCULAR: Regular S1 and S2 and tachycardic. ABDOMEN: Soft and nondistended. EXTREMITIES: No pitting edema. Nain Cortez MD Apr 08, 2019 14:33
--- NOTE | 2019-04-08 14:35 | NUR ---
NURSE NOTES: MD Dana made rounds, updates given, informed MD about PT elevated BP and HR; PRN hydralazine ordered by MD; advised if PRN is used frequently, PRN will be changed to scheduled for PT. Will continue to monitor PT.
--- NOTE | 2019-04-08 15:11 | NUR ---
NURSE NOTES: PT tolerating blood transfusion, VS stable, no S/S of respiratory distress on cool aerosol, 2nd unit being infused. Family/friends visiting at bedside, A/O x 2-3 is having difficulty speaking/enunciating post extubation. Will continue to monitor PT closely.
--- NOTE | 2019-04-08 15:20 | NUR ---
NURSE NOTES: PT family Amy called asking for updates, updates given, asked for ID MD's phone number, provided MD Nisreen's office number, and PT family asked for optimization specialist number, both MD office numbers provided per family member.
--- NOTE | 2019-04-08 15:22 | Surgery Progress Note ---
Surgery Progress Note Subjective Procedure Performed right subclavian central venous catheter insertion Additional Comments extubated comfortable doing well labs improved Objective Last 24 Hour Vital Signs Date Time Temp Pulse Resp B/P (MAP) Pulse Ox O2 Delivery O2 Flow Rate FiO2 04/08/19 15:00 111 23 125/83 (97) 100 04/08/19 14:00 117 21 158/90 (112) 100 04/08/19 13:00 110 21 148/88 (108) 100 04/08/19 12:13 100 Cool Aerosol 10.0 40 04/08/19 12:12 Venturi Mask 10.0 40 04/08/19 12:00 77 04/08/19 12:00 97.5 102 15 133/84 (100) 100 04/08/19 12:00 Venturi Mask 10.0 04/08/19 12:00 10.0 40 04/08/19 11:00 99 26 110/77 (88) 100 04/08/19 10:39 108 22 40 40 04/08/19 10:00 99 22 121/81 (94) 100 04/08/19 09:39 107 26 40 40 04/08/19 09:00 100 18 93/59 (70) 100 04/08/19 08:52 135 22 40 04/08/19 08:04 126/58 04/08/19 08:00 117 04/08/19 08:00 98.8 108 23 126/58 (80) 100 04/08/19 08:00 Mechanical Ventilator 04/08/19 07:30 40 04/08/19 07:10 100 04/08/19 07:03 100 19 40 40 04/08/19 07:00 94 19 115/60 (78) 100 04/08/19 06:30 88 18 117/53 (74) 100 04/08/19 06:30 97 18 04/08/19 06:00 85 18 101/53 (69) 100 04/08/19 05:30 97 21 112/62 (79) 100 04/08/19 05:10 95 18 40 04/08/19 05:00 85 18 108/58 (75) 100 04/08/19 04:30 83 18 115/60 (78) 100 04/08/19 04:00 99.1 77 18 102/57 (72) 100 04/08/19 04:00 Mechanical Ventilator 04/08/19 04:00 40 04/08/19 03:30 82 18 108/61 (77) 100 04/08/19 03:01 82 04/08/19 03:00 90 17 109/67 (81) 100 04/08/19 02:52 75 18 40 04/08/19 02:30 82 18 90/65 (73) 100 04/08/19 02:00 103 18 158/79 (105) 99 04/08/19 01:30 81 18 130/60 (83) 100 04/08/19 01:00 81 18 121/66 (84) 100 04/08/19 00:54 82 18 40 04/08/19 00:30 75 18 104/56 (72) 100 04/08/19 00:00 Mechanical Ventilator 04/08/19 00:00 98.6 74 18 114/64 (81) 100 04/07/19 23:30 93 19 145/78 (100) 100 04/07/19 23:16 98 04/07/19 23:00 85 18 133/58 (83) 100 04/07/19 22:53 125 21 40 04/07/19 22:30 107 17 135/75 (95) 96 04/07/19 22:00 91 18 141/74 (96) 100 04/07/19 21:45 82 18 122/60 (80) 100 04/07/19 21:30 85 18 120/78 (92) 99 04/07/19 21:00 102 21 138/72 (94) 100 04/07/19 20:53 95 19 40 04/07/19 20:30 83 18 117/71 (86) 100 04/07/19 20:00 Mechanical Ventilator 04/07/19 20:00 40 04/07/19 20:00 99.4 84 18 128/68 (88) 99 04/07/19 19:32 78 04/07/19 19:30 85 18 125/63 (83) 100 04/07/19 19:00 102 21 132/80 (97) 92 04/07/19 18:58 99 22 40 04/07/19 18:00 92 18 121/67 (85) 98 04/07/19 18:00 40 04/07/19 17:10 128 29 40 04/07/19 17:00 99.2 118 20 120/70 (87) 100 04/07/19 16:04 101 04/07/19 16:00 86 18 96/60 (72) 100 04/07/19 16:00 Mechanical Ventilator I&O Intake and Output 04/07/19 04/08/19 19:00 07:00 Intake Total 1127.500 ml 1025.04 ml Output Total 420 ml 765 ml Balance 707.500 ml 260.04 ml IV Total 1047.500 ml 1025.04 ml Other 80 ml Output Urine Total 420 ml 665 ml Gastric Drainage Total 100 ml # Bowel Movements 1 Dressing: other Wound: other Drains: other Cardiovascular: RSR Respiratory: decreased breath sounds Abdomen: soft, non-tender, present bowel sounds Extremities: no tenderness, no cyanosis Laboratory Tests Test 04/08/19 04:00 04/08/19 10:23 04/08/19 13:00 White Blood Count 9.2 K/UL (4.8-10.8) Red Blood Count 2.41 M/UL (4.70-6.10) L Hemoglobin 7.0 G/DL (14.2-18.0) L Hematocrit 19.6 % (42.0-52.0) L Mean Corpuscular Volume 81 FL (80-99) Mean Corpuscular Hemoglobin 29.0 PG (27.0-31.0) Mean Corpuscular Hemoglobin Concent 35.7 G/DL (32.0-36.0) Red Cell Distribution Width 16.2 % (11.6-14.8) H Platelet Count 140 K/UL (150-450) L Mean Platelet Volume 5.5 FL (6.5-10.1) L Neutrophils (%) (Auto) % (45.0-75.0) Lymphocytes (%) (Auto) % (20.0-45.0) Monocytes (%) (Auto) % (1.0-10.0) Eosinophils (%) (Auto) % (0.0-3.0) Basophils (%) (Auto) % (0.0-2.0) Differential Total Cells Counted 100 Neutrophils % (Manual) 70 % (45-75) Lymphocytes % (Manual) 19 % (20-45) L Monocytes % (Manual) 5 % (1-10) Eosinophils % (Manual) 6 % (0-3) H Basophils % (Manual) 0 % (0-2) Band Neutrophils 0 % (0-8) Platelet Estimate Decreased L Platelet Morphology Normal Anisocytosis 2+ Ovalocytes 1+ Acanthocytes 1+ Schistocytes 1+ Sodium Level 145 MMOL/L (136-145) Potassium Level 3.7 MMOL/L (3.5-5.1) Chloride Level 110 MMOL/L (98-107) H Carbon Dioxide Level 28 MMOL/L (21-32) Anion Gap 7 mmol/L (5-15) Blood Urea Nitrogen 24 mg/dL (7-18) H Creatinine 1.5 MG/DL (0.55-1.30) H Estimat Glomerular Filtration Rate mL/min (>60) Glucose Level 107 MG/DL (74-106) H Calcium Level 10.3 MG/DL (8.5-10.1) H Arterial Blood pH 7.381 (7.350-7.450) Arterial Blood Partial Pressure CO2 45.8 mmHg (35.0-45.0) H Arterial Blood Partial Pressure O2 79.5 mmHg (75.0-100.0) Arterial Blood HCO3 26.5 mmol/L (22.0-26.0) H Arterial Blood Oxygen Saturation 94.3 % (95-100) L Arterial Blood Base Excess 1.2 (-2-2) Antonio Test Positive Stool Occult Blood Pending Plan Problems: (1) Cardiac arrest Assessment & Plan: extubated on face mask oxygenating well hypotensive off pressors central line placed left subclavian iv fluids abx as per ID trend labs abg okay cont current treatment will follow with recs thank you (2) Stage III adenocarcinoma of prostate Assessment & Plan: patient with state 3 prostate cancer pending treatment at [facility] unlikely related to acute cardiac arrest this am abd exam with mild distention pending KUB no acute surgical intervention planned onc input thank you will follow with recs Jay Acevedo Apr 08, 2019 15:22
--- NOTE | 2019-04-08 16:00 | Progress Note ---
DATE: 04/08/2019 SUBJECTIVE: This is a 73-year-old male with generalized weakness. He has altered mental status, confusion, and decline in cognition below his baseline. That is why his attending physician has requested daily psychiatric consultation. MENTAL STATUS EXAMINATION: This is a 73-year-old male. Appearance is disheveled. Attitude, irritable and agitated. Affect, guarded and restricted. Intellect, poor. Mood, depressed and anxious. Motor activity, psychomotor agitation. Attention span is poor. Orientation x2. Speech is pressured. Thought process, disorganized and illogical. Insight and judgment is poor. DIAGNOSIS: Major depressive disorder, severe, recurrent with psychotic features, rule out dementia with psychosis. PLAN: Treat him with Zoloft 25 mg daily and Namenda 5 mg twice a day. Provided him with 20 minutes of reality-based supportive psychotherapy. Chart reviewed. Discussed with staff. Seen and assessed at bedside. A 20 minutes of cognitive behavioral therapy provided to help the patient identify his automatic negative thoughts and help him convert those negative thoughts to more positive thoughts to reduce depression, anxiety, and mood lability. Chart reviewed. Discussed with staff. Seen and assessed in his room. Cherise Palma M.D. DR: ACE JOB#: [id number] CC:
--- NOTE | 2019-04-08 16:45 | Consultation ---
DATE OF CONSULTATION: 04/08/2019 CONSULTING PHYSICIAN: Tyrone Lamb M.D. CHIEF COMPLAINT: Dysphagia, coffee-grounds emesis. HISTORY OF PRESENT ILLNESS: Most of the history per chart. Currently intubated in ICU. Apparently, he is a 73-year-old male admitted to the hospital mainly for complaint of not feeling well, confusion, dehydration. Initially in the ER, he was found to be having elevated creatinine, low potassium, and high calcium. The patient carries diagnosis of prostate cancer. Throughout the hospital stay, the patient apparently was asystole 3 days ago requiring Code Blue, requiring intubation, resuscitation. Given that the patient had some coffee-grounds emesis and drop in hemoglobin and hematocrit, GI consult requested for evaluation. PAST MEDICAL HISTORY: 1. Prostate cancer. 2. History of dehydration. 3. Urinary tract infection. ALLERGIES: No known drug allergies. MEDICATIONS: Please see medication reconciliation list. SOCIAL HISTORY: The patient was living at home before this admission. There is no history of tobacco, alcohol, or drug abuse. PAST SURGICAL HISTORY: Unknown. REVIEW OF SYSTEMS: Unable to obtain. PHYSICAL EXAMINATION: VITAL SIGNS: Temperature is 98.8, pulse is 99, respirations 22, blood pressure is 121/81. HEENT: Normocephalic, atraumatic. Sclerae anicteric. NECK: Supple. No evidence of obvious lymphadenopathy. CARDIOVASCULAR: Tachy. Regular rate. Plus S1-S2. LUNGS: Decreased breath sounds bilaterally based on the supine exam. ABDOMEN: Soft, nontender. No rebound. No guarding. No peritoneal sign. EXTREMITIES: No cyanosis. No clubbing. No edema. LABORATORY DATA: Sodium 145, potassium 3.7, BUN 24, creatinine is 1.5, glucose is 107, calcium is 10.3. Troponin 0.088. White count is 9.2, hemoglobin 7, hematocrit 19, platelet count is 140. ASSESSMENT: This is a 73-year-old male, status post Code Blue with coffee-grounds emesis, tachycardia, anemia. PLAN: NG-tube to low intermittent suction. IV hydration for blood pressure stability. Protonix 40 mg q.12. Stool for OB. The patient pending blood transfusion. At one point, the patient might need an endoscopy, but given current condition, we are going to hold off on this medical emergency. I want to thank Dr. Sawyer Toussaint for this kind referral. Tyrone Lamb M.D. DR: ANDRE JOB#: [id number] CC: Sawyer Toussaint D.O.
--- NOTE | 2019-04-08 16:54 | NUR ---
NURSE NOTES: PT tolerating blood transfusion, VS stable, no S/S of respiratory distress noted on cool aerosol. Will continue to monitor PT.
--- NOTE | 2019-04-08 19:22 | NUR ---
HAND-OFF: Report and PT given to BLANCA Beverly.
--- NOTE | 2019-04-08 19:23 | NUR ---
NURSE NOTES: Received patient from BLANCA Leong. Will continue plan of care.
[2019-04-08] MEDS: Dyna-Hex 2% Top Sol 2oz TOPIC SCH (19:46)
--- NOTE | 2019-04-08 20:00 | NUR ---
NURSE NOTES: Patient is awake and alert, trying to speak. Extubated this afternoon and is now on a venti mask w/ cool aerosol 40% and O2 saturating at 100%. Remains NPO, has NGT with coffee ground emesis output. BP:129/82 and HR:100. Morales catheter intact and draining. Left subclavian TLC on TKO. Patient request for extra blanket- given. Also states that his breathing feels "heavy" and asked for inhaler. PRN albuterol given by RT. Safety measures in place; bed low, locked and alarm is on. Will continue to monitor.
[2019-04-08] MEDS: Albuterol/Ipratropium 3ml neb HHN PRN (20:05)
[2019-04-08] MEDS: Morphine Sulfate 2mg/ml Inj(IV/IM USE ONLY) IVP PRN (21:07)
--- NOTE | 2019-04-08 22:00 | NUR ---
NURSE NOTES: Low air loss mattress placed. Skin assessed with CN. Stage 2 wound is on the sacral and not the lower back. Patient cleaned, wound dressing changed. Turned and repositioned.
[2019-04-09] VITALS (27 sets, daily range): BP systolic 102–156; BP diastolic 61–101
--- NOTE | 2019-04-09 | NUR ---
NURSE NOTES: Oral care provided. Vital signs stable. etco2 monitoring started for COPD. Turned and repositioned. Will continue to monitor.
[2019-04-09] MEDS: Morphine Sulfate 2mg/ml Inj(IV/IM USE ONLY) IVP PRN ×4 (01:01→18:09)
[2019-04-09] MEDS: Albuterol/Ipratropium 3ml neb HHN PRN ×4 (01:17→19:32)
--- NOTE | 2019-04-09 02:00 | NUR ---
NURSE NOTES: Patient is awake and talking more. Vital signs are stable. Oral care provided. Turned and repositioned. Restless, anxious, unable to sleep due to noise he states (when the alarms ring). Talking to him seems to provide a bit of comfort.
--- NOTE | 2019-04-09 04:00 | NUR ---
NURSE NOTES: Morales catheter continues to leak and not draining for couple hours, attempted to troubleshoot. Will keep a monitor. Bed bath given, linens changed, wound dressing changed, oral care provided, turned and repositioned. Safety measures in place. Patient is comfortable.
[2019-04-09 04:48] LABS: BASOPHILS % (AUTO) 0.3 % (0.0-2.0); EOSINOPHILS % (AUTO) 4.7 % (0.0-3.0); HEMOGLOBIN 9.6 G/DL (14.2-18.0); LYMPHOCYTES % (AUTO) 8.4 % (20.0-45.0); MEAN CORPUSCULAR VOLUME 83 FL (80-99); MONOCYTES % (AUTO) 5.2 % (1.0-10.0); NEUTROPHILS % (AUTO) 81.5 % (45.0-75.0); PLATELET COUNT 118 K/UL (150-450); RED BLOOD COUNT 3.27 M/UL (4.70-6.10); RED CELL DISTRIBUTION WIDTH 15.1 % (11.6-14.8); WHITE BLOOD COUNT 9.3 K/UL (4.8-10.8)
[2019-04-09 05:18] LABS: ANION GAP 7 mmol/L (5-15); BLOOD UREA NITROGEN 23 mg/dL (7-18); CALCIUM 11.4 MG/DL (8.5-10.1); CARBON DIOXIDE 29 MMOL/L (21-32); CHLORIDE 112 MMOL/L (98-107); CREATININE 1.5 MG/DL (0.55-1.30); POTASSIUM 3.4 MMOL/L (3.5-5.1); SODIUM 148 MMOL/L (136-145)
[2019-04-09] MEDS: Piperacillin/Tazobactam 3.375 GM in NS 110 ML IVPB SCH ×3 (05:22→22:15)
--- NOTE | 2019-04-09 05:53 | Hematology/Onc Progress Note ---
Assessment/Plan Assessment/Plan # Prostate cancer stage IV with psa >700, cr is worse, hydronephrosis noted, seen by renal, Dr. White. --> i did received records from [facility]. has regional lymphadenopathy, s/p transrectal biopsy with Gleasons 5+5 (2010) in all cores, apparently has had a 3 year course of androgen deprivation from 2011- 2014.also status post RADIATION to the prostate, then lost to followup. Following surviellance psa 0.45-->65, in 10/2016, and up to 127 in 12/2016, Ct scan showed recurrence of disease with lad but no bony mets, started on lupron 01/2017, psa fell yo 73-->46, has been sarted on zytiga + prednisone, and now psa progression on zytiga, he started xtandi in 01/2019 Psa 87. He did not go through urethral stenting, he has deferred treatment with chemo. --> He is a very poor historian, I have talked to the sister --> imaging has been noted --> as per urology recs, reviewed --> have called , no answer, trans to [facility]? --> poor prognosis given above history of treatment, [place] [facility] [place] psa 737-->757 # Hypercalcemia -- now acutely worse --> trend Ca++ 8.1-->13-->12-->10.3 --> ivf has been started --> as per nephrology --> consider pamidronate v calcitonin v other agent # Anemia due to underlying malignancy --> hgb trend as needed 9.2-->7 --> no hemolysis is noted --> no bleeding # Episode of generalized weakness --> on ivf --> pt as needed # Hypokalemia --> replete prn # Dehydration --> on ivf # Atrophic changes without evident intracranial hemorrhage. --> as per neuro, remains confused # Respiratory failure s/p vent --> s/p vent intubated on 04/06 --> 04/08 was extubated # Hypernatremia as well as low BUN. --> on ivf # Poor prognosis # Dvt ppx lovenox sq Appreciate consultation and Jemal Rn Subjective Constitutional: Denies: no symptoms, chills, fever, malaise, weakness, other HEENT: Denies: no symptoms, eye pain, blurred vision, tearing, double vision, ear pain, ear discharge, nose pain, nose congestion, throat pain, throat swelling, mouth pain, mouth swelling, other Cardiovascular: Denies: no symptoms, chest pain, edema, irregular heart rate, lightheadedness, palpitations, syncope, other Respiratory: Denies: no symptoms, cough, shortness of breath, SOB with excertion, SOB at rest, sputum, wheezing, other Gastrointestinal/Abdominal: Denies: no symptoms, abdomen distended, abdominal pain, black stools, tarry stools, blood in stool, constipated, diarrhea, difficulty swallowing, nausea, poor appetite, poor fluid intake, rectal bleeding , vomiting, other Neurologic/Psychiatric: Denies: no symptoms, anxiety, depressed, emotional problems, headache, numbness, paresthesia, pre-existing deficit, seizure, tingling, tremors, weakness, other Endocrine: Denies: no symptoms, excessive sweating, flushing, intolerance to cold, intolerance to heat, increased hunger, increased thirst, increased urine, unexplained weight gain, unexplained weight loss, other Allergies: Coded Allergies: No Known Allergies (Unverified , 04/03/19) Subjective 2/3: no events, apparently intubated today and transferred to the icu, will dw family 04/07: remains in the icu, critically ill, Ca++ 12, on vent, minimally responsive , on dopa, dw pcp and pulm 04/08: no major changes, no night sweats, labs have been reviewed, dw daughter, he is more alert Objective Objective Current Medications Medications (Trade) Dose Ordered Sig/La Nena Route PRN Reason Start Time Stop Time Status Last Admin Dose Admin Albuterol/ Ipratropium (Albuterol/ Ipratropium) 3 ml EVERY 6 HOURS PRN HHN Shortness of Breath 04/06/19 12:00 04/10/19 06:29 04/09/19 01:17 Chlorhexidine Gluconate (Martha-Hex 2%) 1 applic DAILY@1999 TOPIC 04/06/19 20:00 05/06/19 19:59 04/08/19 19:46 Dopamine HCl/ Dextrose 250 ml @ 0 mls/hr Q24H IV 04/06/19 08:15 05/06/19 08:14 04/06/19 20:56 Enoxaparin Sodium (Lovenox) 30 mg DAILY SUBQ 04/06/19 09:00 05/04/19 08:59 Hydralazine HCl (Apresoline) 10 mg Q4H PRN IV SBP > 170mmHg 04/08/19 14:45 05/08/19 14:44 Memantine (Namenda) 5 mg BID ORAL 04/06/19 09:00 05/04/19 17:59 04/08/19 18:18 Morphine Sulfate (Morphine Sulfate) 2 mg Q4H PRN IVP For Pain 04/08/19 20:30 04/15/19 20:29 04/09/19 01:01 Norepinephrine Bitartrate 4 mg/ Dextrose 250 ml @ 0 mls/hr Q24H IV 04/06/19 16:17 05/06/19 16:16 04/07/19 00:53 Pantoprazole (Protonix) 40 mg DAILY IVP 04/08/19 09:00 05/08/19 08:59 04/08/19 09:17 Piperacillin Sod/ Tazobactam Sod 3.375 gm/Sodium Chloride 110 ml @ 27.5 mls/hr EVERY 8 HOURS IVPB 04/07/19 10:00 04/12/19 09:59 04/09/19 05:22 Sertraline HCl (Zoloft) 25 mg DAILY ORAL 04/06/19 09:00 05/05/19 08:59 04/08/19 09:17 Vancomycin HCl (Vanco rx to dose) 1 ea DAILY PRN MISC Per rx protocol 04/07/19 08:15 05/07/19 08:14 Vancomycin HCl 500 mg/Dextrose 110 ml @ 110 mls/hr Q24H IVPB 04/08/19 10:00 04/13/19 09:59 04/08/19 09:18 Last 24 Hour Vital Signs Date Time Temp Pulse Resp B/P (MAP) Pulse Ox O2 Delivery O2 Flow Rate FiO2 04/09/19 05:00 88 16 126/74 (91) 100 04/09/19 04:30 99 21 133/74 (93) 100 04/09/19 04:00 97.2 97 21 128/75 (92) 100 04/09/19 04:00 10.0 40 04/09/19 04:00 Venturi Mask 10.0 Venturi Mask 10.0 04/09/19 03:30 98 21 129/75 (93) 100 04/09/19 03:04 84 04/09/19 03:00 87 17 116/78 (91) 100 04/09/19 02:00 89 16 117/70 (86) 100 04/09/19 01:42 100 Cool Aerosol 10.0 40 04/09/19 01:30 86 17 123/85 (98) 100 04/09/19 01:00 107 21 145/91 (109) 100 04/09/19 00:00 Venturi Mask 10.0 Venturi Mask 10.0 04/09/19 00:00 97.8 103 22 138/86 (103) 100 04/08/19 23:30 91 18 142/84 (103) 100 04/08/19 23:06 111 04/08/19 23:00 99 19 148/108 (121) 100 04/08/19 22:30 87 18 122/70 (87) 100 04/08/19 22:00 109 24 146/84 (104) 100 04/08/19 21:30 88 17 88/66 (73) 100 04/08/19 21:14 89 18 106/75 (85) 100 04/08/19 21:00 110 28 176/111 (132) 100 04/08/19 20:30 91 18 129/82 (98) 100 04/08/19 20:05 100 Cool Aerosol 10.0 40 04/08/19 20:05 87 18 100 Cool Aerosol 10.0 40 99 19 100 04/08/19 20:00 10.0 40 04/08/19 20:00 97.6 102 20 137/85 (102) 100 04/08/19 20:00 Venturi Mask 10.0 Venturi Mask 10.0 04/08/19 19:48 110 04/08/19 19:00 102 19 137/78 (97) 100 04/08/19 18:10 Venturi Mask 10.0 Venturi Mask 10.0 04/08/19 18:00 105 19 134/77 (96) 100 04/08/19 17:00 107 19 129/72 (91) 100 04/08/19 16:17 131/84 2/5/20 16:00 Venturi Mask 10.0 Venturi Mask 10.0 04/08/19 16:00 10.0 40 04/08/19 16:00 97.2 105 18 131/84 (100) 100 04/08/19 16:00 112 04/08/19 15:00 111 23 125/83 (97) 100 04/08/19 14:00 117 21 158/90 (112) 100 04/08/19 13:00 110 21 148/88 (108) 100 04/08/19 12:13 100 Cool Aerosol 10.0 40 04/08/19 12:12 Venturi Mask 10.0 40 04/08/19 12:00 77 04/08/19 12:00 97.5 102 15 133/84 (100) 100 04/08/19 12:00 Venturi Mask 10.0 04/08/19 12:00 10.0 40 04/08/19 11:00 99 26 110/77 (88) 100 04/08/19 10:39 108 22 40 40 04/08/19 10:00 99 22 121/81 (94) 100 04/08/19 09:39 107 26 40 40 04/08/19 09:00 100 18 93/59 (70) 100 04/08/19 08:52 135 22 40 04/08/19 08:04 126/58 04/08/19 08:00 117 04/08/19 08:00 98.8 108 23 126/58 (80) 100 04/08/19 08:00 Mechanical Ventilator 04/08/19 07:30 40 04/08/19 07:10 100 04/08/19 07:03 100 19 40 40 04/08/19 07:00 94 19 115/60 (78) 100 04/08/19 06:30 88 18 117/53 (74) 100 04/08/19 06:30 97 18 04/08/19 06:00 85 18 101/53 (69) 100 04/08/19 05:30 97 21 112/62 (79) 100 04/08/19 05:10 95 18 40 04/08/19 05:00 85 18 108/58 (75) 100 04/08/19 04:30 83 18 115/60 (78) 100 04/08/19 04:00 99.1 77 18 102/57 (72) 100 04/08/19 04:00 Mechanical Ventilator 04/08/19 04:00 40 04/08/19 03:30 82 18 108/61 (77) 100 04/08/19 03:01 82 04/08/19 03:00 90 17 109/67 (81) 100 04/08/19 02:52 75 18 40 04/08/19 02:30 82 18 90/65 (73) 100 04/08/19 02:00 103 18 158/79 (105) 99 04/08/19 01:30 81 18 130/60 (83) 100 04/08/19 01:00 81 18 121/66 (84) 100 04/08/19 00:54 82 18 40 04/08/19 00:30 75 18 104/56 (72) 100 04/08/19 00:00 Mechanical Ventilator 04/08/19 00:00 98.6 74 18 114/64 (81) 100 04/07/19 23:30 93 19 145/78 (100) 100 04/07/19 23:16 98 04/07/19 23:00 85 18 133/58 (83) 100 04/07/19 22:53 125 21 40 04/07/19 22:30 107 17 135/75 (95) 96 04/07/19 22:00 91 18 141/74 (96) 100 04/07/19 21:45 82 18 122/60 (80) 100 04/07/19 21:30 85 18 120/78 (92) 99 04/07/19 21:00 102 21 138/72 (94) 100 04/07/19 20:53 95 19 40 04/07/19 20:30 83 18 117/71 (86) 100 04/07/19 20:00 Mechanical Ventilator 04/07/19 20:00 40 04/07/19 20:00 99.4 84 18 128/68 (88) 99 04/07/19 19:32 78 04/07/19 19:30 85 18 125/63 (83) 100 04/07/19 19:00 102 21 132/80 (97) 92 04/07/19 18:58 99 22 40 04/07/19 18:00 92 18 121/67 (85) 98 04/07/19 18:00 40 04/07/19 17:10 128 29 40 04/07/19 17:00 99.2 118 20 120/70 (87) 100 04/07/19 16:04 101 04/07/19 16:00 86 18 96/60 (72) 100 04/07/19 16:00 Mechanical Ventilator 04/07/19 15:16 104 22 40 04/07/19 15:00 95 20 105/58 (74) 100 04/07/19 14:00 115 20 119/61 (80) 100 04/07/19 13:00 90 18 98/57 (71) 100 04/07/19 12:45 93 18 101/56 (71) 100 04/07/19 12:36 100 18 40 04/07/19 12:30 99 19 110/56 (74) 100 04/07/19 12:15 92 18 113/57 (75) 100 04/07/19 12:00 98.2 90 18 118/62 (80) 100 04/07/19 12:00 Mechanical Ventilator 04/07/19 12:00 113/57 04/07/19 12:00 89 04/07/19 11:30 100 18 120/67 (84) 100 04/07/19 11:18 96 18 40 04/07/19 11:00 86 18 119/64 (82) 100 04/07/19 11:00 106/63 04/07/19 10:45 40 04/07/19 10:30 90 18 111/71 (84) 100 04/07/19 10:30 117/62 04/07/19 10:00 117/64 04/07/19 10:00 87 18 123/71 (88) 100 04/07/19 09:30 88 18 113/66 (82) 100 04/07/19 09:15 85 18 111/63 (79) 100 04/07/19 09:13 100 04/07/19 09:00 86 18 111/59 (76) 100 04/07/19 09:00 111/63 04/07/19 08:45 88 18 118/61 (80) 100 04/07/19 08:35 85 18 60 04/07/19 08:30 88 18 116/71 (86) 100 04/07/19 08:30 118/61 04/07/19 08:00 94 04/07/19 08:00 141/80 2/4/20 08:00 Mechanical Ventilator 04/07/19 08:00 60 04/07/19 08:00 91 18 111/66 (81) 100 04/07/19 07:30 98.1 83 18 114/66 (82) 100 04/07/19 07:28 85 18 60 04/07/19 07:15 85 18 126/71 (89) 100 04/07/19 07:00 87 18 105/66 (79) 100 04/07/19 06:45 87 19 114/66 (82) 100 04/07/19 06:30 85 18 04/07/19 06:30 92 19 121/78 (92) 100 04/07/19 06:15 103 19 110/72 (85) 100 04/07/19 06:00 99 20 110/68 (82) 100 Intake and Output 04/08/19 04/09/19 19:00 07:00 Intake Total 1159.96 ml 110.00 ml Output Total 375 ml 275 ml Balance 784.96 ml -165.00 ml IV Total 609.96 ml 110.00 ml Blood Product 500 ml Other 50 ml Output Urine Total 175 ml 275 ml Gastric Drainage Total 200 ml # Bowel Movements 3 Labs Test 04/06/19 06:05 04/06/19 10:00 04/06/19 11:00 04/06/19 17:30 White Blood Count 9.7 K/UL (4.8-10.8) 12.2 K/UL (4.8-10.8) Red Blood Count 3.12 M/UL (4.70-6.10) 3.03 M/UL (4.70-6.10) Hemoglobin 8.8 G/DL (14.2-18.0) 8.3 G/DL (14.2-18.0) Hematocrit 26.1 % (42.0-52.0) 26.4 % (42.0-52.0) Mean Corpuscular Volume 84 FL (80-99) 87 FL (80-99) Mean Corpuscular Hemoglobin 28.1 PG (27.0-31.0) 27.5 PG (27.0-31.0) Mean Corpuscular Hemoglobin Concent 33.6 G/DL (32.0-36.0) 31.6 G/DL (32.0-36.0) Red Cell Distribution Width 16.3 % (11.6-14.8) 17.1 % (11.6-14.8) Platelet Count 239 K/UL (150-450) 219 K/UL (150-450) Mean Platelet Volume 5.0 FL (6.5-10.1) 6.1 FL (6.5-10.1) Neutrophils (%) (Auto) 80.0 % (45.0-75.0) % (45.0-75.0) Lymphocytes (%) (Auto) 10.4 % (20.0-45.0) % (20.0-45.0) Monocytes (%) (Auto) 7.3 % (1.0-10.0) % (1.0-10.0) Eosinophils (%) (Auto) 1.8 % (0.0-3.0) % (0.0-3.0) Basophils (%) (Auto) 0.5 % (0.0-2.0) % (0.0-2.0) Sodium Level 152 MMOL/L (136-145) 152 MMOL/L (136-145) Potassium Level 3.8 MMOL/L (3.5-5.1) 3.5 MMOL/L (3.5-5.1) Chloride Level 116 MMOL/L (98-107) 116 MMOL/L (98-107) Carbon Dioxide Level 31 MMOL/L (21-32) 31 MMOL/L (21-32) Anion Gap 5 mmol/L (5-15) 5 mmol/L (5-15) Blood Urea Nitrogen 24 mg/dL (7-18) 26 mg/dL (7-18) Creatinine 1.5 MG/DL (0.55-1.30) 1.5 MG/DL (0.55-1.30) Estimat Glomerular Filtration Rate mL/min (>60) mL/min (>60) Glucose Level 140 MG/DL (74-106) 132 MG/DL (74-106) Calcium Level 12.5 MG/DL (8.5-10.1) 11.6 MG/DL (8.5-10.1) Troponin I 0.030 ng/mL (0.000-0.056) 0.074 ng/mL (0.000-0.056) 0.099 ng/mL (0.000-0.056) Arterial Blood pH 7.308 (7.350-7.450) Arterial Blood Partial Pressure CO2 59.9 mmHg (35.0-45.0) Arterial Blood Partial Pressure O2 70.7 mmHg (75.0-100.0) Arterial Blood HCO3 29.3 mmol/L (22.0-26.0) Arterial Blood Oxygen Saturation 92.5 % (95-100) Arterial Blood Base Excess 2.3 (-2-2) Antonio Test Positive Differential Total Cells Counted 100 Neutrophils % (Manual) 76 % (45-75) Lymphocytes % (Manual) 9 % (20-45) Monocytes % (Manual) 5 % (1-10) Eosinophils % (Manual) 2 % (0-3) Basophils % (Manual) 0 % (0-2) Band Neutrophils 8 % (0-8) Platelet Estimate Adequate Platelet Morphology Normal Hypochromasia 1+ Anisocytosis 1+ Prothrombin Time 11.4 SEC (9.30-11.50) Prothromb Time International Ratio 1.1 (0.9-1.1) Activated Partial Thromboplast Time 24 SEC (23-33) Lactic Acid Level 1.60 mmol/L (0.4-2.0) Total Bilirubin 0.3 MG/DL (0.2-1.0) Aspartate Amino Transf (AST/SGOT) 70 U/L (15-37) Alanine Aminotransferase (ALT/SGPT) 25 U/L (12-78) Alkaline Phosphatase 75 U/L (46-116) Total Protein 5.9 G/DL (6.4-8.2) Albumin 2.1 G/DL (3.4-5.0) Globulin 3.8 g/dL Albumin/Globulin Ratio 0.6 (1.0-2.7) Test 04/07/19 03:10 04/07/19 09:50 04/07/19 09:53 04/08/19 04:00 White Blood Count 14.1 K/UL (4.8-10.8) 9.2 K/UL (4.8-10.8) Red Blood Count 3.25 M/UL (4.70-6.10) 2.41 M/UL (4.70-6.10) Hemoglobin 9.2 G/DL (14.2-18.0) 7.0 G/DL (14.2-18.0) Hematocrit 26.7 % (42.0-52.0) 19.6 % (42.0-52.0) Mean Corpuscular Volume 82 FL (80-99) 81 FL (80-99) Mean Corpuscular Hemoglobin 28.2 PG (27.0-31.0) 29.0 PG (27.0-31.0) Mean Corpuscular Hemoglobin Concent 34.4 G/DL (32.0-36.0) 35.7 G/DL (32.0-36.0) Red Cell Distribution Width 16.5 % (11.6-14.8) 16.2 % (11.6-14.8) Platelet Count 220 K/UL (150-450) 140 K/UL (150-450) Mean Platelet Volume 4.8 FL (6.5-10.1) 5.5 FL (6.5-10.1) Neutrophils (%) (Auto) 74.7 % (45.0-75.0) % (45.0-75.0) Lymphocytes (%) (Auto) 16.0 % (20.0-45.0) % (20.0-45.0) Monocytes (%) (Auto) 7.0 % (1.0-10.0) % (1.0-10.0) Eosinophils (%) (Auto) 1.9 % (0.0-3.0) % (0.0-3.0) Basophils (%) (Auto) 0.4 % (0.0-2.0) % (0.0-2.0) Erythrocyte Sedimentation Rate 118 MM/HR (0-20) Prothrombin Time 12.0 SEC (9.30-11.50) Prothromb Time International Ratio 1.1 (0.9-1.1) Activated Partial Thromboplast Time 27 SEC (23-33) Sodium Level 150 MMOL/L (136-145) 145 MMOL/L (136-145) Potassium Level 3.8 MMOL/L (3.5-5.1) 3.7 MMOL/L (3.5-5.1) Chloride Level 113 MMOL/L (98-107) 110 MMOL/L (98-107) Carbon Dioxide Level 29 MMOL/L (21-32) 28 MMOL/L (21-32) Anion Gap 8 mmol/L (5-15) 7 mmol/L (5-15) Blood Urea Nitrogen 27 mg/dL (7-18) 24 mg/dL (7-18) Creatinine 1.7 MG/DL (0.55-1.30) 1.5 MG/DL (0.55-1.30) Estimat Glomerular Filtration Rate mL/min (>60) mL/min (>60) Glucose Level 137 MG/DL (74-106) 107 MG/DL (74-106) Calcium Level 12.4 MG/DL (8.5-10.1) 10.3 MG/DL (8.5-10.1) Total Bilirubin 0.3 MG/DL (0.2-1.0) Aspartate Amino Transf (AST/SGOT) 69 U/L (15-37) Alanine Aminotransferase (ALT/SGPT) 24 U/L (12-78) Alkaline Phosphatase 87 U/L (46-116) Troponin I 0.088 ng/mL (0.000-0.056) C-Reactive Protein, Quantitative 16.0 mg/dL (0.00-0.90) Pro-B-Type Natriuretic Peptide 2544 pg/mL (0-125) Total Protein 6.5 G/DL (6.4-8.2) Albumin 2.2 G/DL (3.4-5.0) Globulin 4.3 g/dL Albumin/Globulin Ratio 0.5 (1.0-2.7) Amylase Level 72 U/L (25-115) Lipase 61 U/L (73-393) Thyroid Stimulating Hormone (TSH) 2.727 uiU/mL (0.358-3.740) Free Thyroxine 0.92 NG/DL (0.76-1.46) Urine Color Yellow Urine Appearance Slightly cloudy Urine pH 6 (4.5-8.0) Urine Specific [place] 1.010 (1.005-1.035) Urine Protein 3+ (NEGATIVE) Urine Glucose (UA) Negative (NEGATIVE) Urine Ketones Negative (NEGATIVE) Urine Blood 5+ (NEGATIVE) Urine Nitrite Negative (NEGATIVE) Urine Bilirubin Negative (NEGATIVE) Urine Urobilinogen Normal MG/DL (0.0-1.0) Urine Leukocyte Esterase 3+ (NEGATIVE) Urine RBC 20-30 /HPF (0 - 0) Urine WBC Tntc /HPF (0 - 0) Urine Squamous Epithelial Cells Occasional /LPF Urine Bacteria Few /HPF (NONE) Arterial Blood pH 7.434 (7.350-7.450) Arterial Blood Partial Pressure CO2 40.2 mmHg (35.0-45.0) Arterial Blood Partial Pressure O2 166.1 mmHg (75.0-100.0) Arterial Blood HCO3 26.3 mmol/L (22.0-26.0) Arterial Blood Oxygen Saturation 98.6 % (95-100) Arterial Blood Base Excess 1.9 (-2-2) Antonio Test Positive Differential Total Cells Counted 100 Neutrophils % (Manual) 70 % (45-75) Lymphocytes % (Manual) 19 % (20-45) Monocytes % (Manual) 5 % (1-10) Eosinophils % (Manual) 6 % (0-3) Basophils % (Manual) 0 % (0-2) Band Neutrophils 0 % (0-8) Platelet Estimate Decreased Platelet Morphology Normal Anisocytosis 2+ Ovalocytes 1+ Acanthocytes 1+ Schistocytes 1+ Test 04/08/19 10:23 04/08/19 13:00 04/09/19 04:00 Arterial Blood pH 7.381 (7.350-7.450) Arterial Blood Partial Pressure CO2 45.8 mmHg (35.0-45.0) Arterial Blood Partial Pressure O2 79.5 mmHg (75.0-100.0) Arterial Blood HCO3 26.5 mmol/L (22.0-26.0) Arterial Blood Oxygen Saturation 94.3 % (95-100) Arterial Blood Base Excess 1.2 (-2-2) Antonio Test Positive Height (Feet): 5 Height (Inches): 7.00 Weight (Pounds): 116 Objective General: normal inspection, alert, Chronically Ill Respiratory: s/p vent++ Cardiovascular: regular rate, rhythm, no edema Gastrointestinal: normal inspection, normal bowel sounds Genitourinary: no CVA tenderness Mus: normal inspection, back normal, normal range of motion Neurologic: alert, motor strength/tone normal, oriented + confused Psychiatric: normal inspection, judgement/insight normal Skin: no rash Andreas Monroy MD Apr 09, 2019 05:53
--- NOTE | 2019-04-09 06:00 | NUR ---
NURSE NOTES: Dr. Monroy came and assessed the patient. H&H is still pending at the moment. Showed MD the gastric content. Patient is resting. Vitals are stable.
--- NOTE | 2019-04-09 07:30 | NUR ---
HAND-OFF: Report given to Kayli Boyce RN.
--- NOTE | 2019-04-09 07:31 | NUR ---
NURSE NOTES: Received patient from [facility]. Patient awake and alert to name, place, and time but confused to purpose. Patient HR 83 on awake overnight monitor. Patient remains NPO at this time. NGT present on the left nares that is hooked to low intermittent suction. No output noted at this time. Patient previously had coffee ground output. Patient extubated yesterday. Patient now on cool aerosol with 40% FiO2. Patient has 18 F guerra for urine retention that is patent and leaking slightly at this time. Will ask primary MD for urologist consult. scabs noted on bilateral knees. Bumps/lesions/erythema noted on perineal area. Will ensure ID doctor is aware. Bilateral heel optifoam in place for protection. Sacral stage 2 pressure injury noted with optifoam dressing in place, dry, and intact. Patient has right forearm 20 gauge peripheral IV that is patent, asymptomatic, and saline locked. Patient has left subclavian central line that is patent, asymptomatic, dressing intact, and running zosyn at this time. Will continue to monitor. Patient received 2 PRBC yesterday. Hgb this morning is 9.6. Will continue to monitor. Was endorsed that patient has blood in stool as well as coffee ground gastric secretion from NGT. GI MD aware. Patient bed in low position with bed alarm on and call light in reach at this time. Will continue to monitor. Patient repositioned and oral care done at this time.
--- NOTE | 2019-04-09 07:58 | NUR ---
NURSE NOTES: Patient has not had ABG obtained since yesterday. Received telephone order from Dr Mathews for stat ABG. order read back, verified, and placed at this time.
[2019-04-09] MEDS: DOPamine 400mg/250ml 250 ML IV SCH (08:15)
[2019-04-09] MEDS: Enoxaparin 30mg Inj SUBQ SCH (09:00)
--- NOTE | 2019-04-09 10:00 | Diagnostic Imaging Report ---
Indication: Dyspnea Comparison: 04/06/2019 A single view chest radiograph was obtained. Findings: Patchy perihilar infiltrates versus pulmonary edema noted. Right basilar density which is probably atelectasis has resolved in the interval. The right hemidiaphragm is now seen. Heart size is stable. Subclavian central venous catheter, endotracheal tube and nasogastric tubes are in good position. IMPRESSION: Patchy perihilar disease which may be asymmetric interstitial edema or infiltrate unchanged. Interval resolution of right basal atelectasis.
--- NOTE | 2019-04-09 10:21 | Pulmonology Progress Note ---
Assessment/Plan Assessment/Plan IMPRESSION: 1. Status post asystolic cardiac arrest. 2. Respiratory failure, now extubated 3. Altered mental status. Improved. 4. Hypernatremia. Corrected. 5. Hypokalemia . Corrected. 6. History of COPD. 7. Prostate CA. DISCUSSION: 1. Discussed with bedside nursing. 2. Discussed also with the patient's daughter, Amy, domonique. 3. Discussed with Dr. Sawyer Toussaint. 4. On nasal o2 5. Transfer to [facility] Ganesh Mathews M.D. Subjective Interval Events: Much better; extubated; on nasal O2 Constitutional: Reports: no symptoms HEENT: Repors: no symptoms Respiratory: Reports: no symptoms Cardiovascular: Reports: no symptoms Gastrointestinal/Abdominal: Reports: no symptoms Allergies: Coded Allergies: No Known Allergies (Unverified , 04/03/19) Objective Last 24 Hour Vital Signs Date Time Temp Pulse Resp B/P (MAP) Pulse Ox O2 Delivery O2 Flow Rate FiO2 04/09/19 09:00 91 15 113/63 (80) 100 04/09/19 08:15 124/74 04/09/19 08:00 97.9 87 15 116/69 (85) 100 04/09/19 08:00 Venturi Mask 8.0 Venturi Mask 8.0 04/09/19 07:39 102 24 100 Cool Aerosol 10.0 40 97 28 100 04/09/19 07:19 100 Cool Aerosol 10.0 40 04/09/19 07:00 120 28 139/101 (114) 100 04/09/19 06:30 90 15 118/78 (91) 100 04/09/19 06:00 90 16 119/66 (83) 100 04/09/19 05:30 96 19 114/75 (88) 100 04/09/19 05:00 88 16 126/74 (91) 100 04/09/19 04:30 99 21 133/74 (93) 100 04/09/19 04:00 97.2 97 21 128/75 (92) 100 04/09/19 04:00 10.0 40 04/09/19 04:00 Venturi Mask 10.0 Venturi Mask 10.0 04/09/19 03:30 98 21 129/75 (93) 100 04/09/19 03:04 84 04/09/19 03:00 87 17 116/78 (91) 100 04/09/19 02:00 89 16 117/70 (86) 100 04/09/19 01:42 100 Cool Aerosol 10.0 40 04/09/19 01:30 86 17 123/85 (98) 100 04/09/19 01:00 107 21 145/91 (109) 100 04/09/19 00:00 Venturi Mask 10.0 Venturi Mask 10.0 04/09/19 00:00 97.8 103 22 138/86 (103) 100 04/08/19 23:30 91 18 142/84 (103) 100 04/08/19 23:06 111 04/08/19 23:00 99 19 148/108 (121) 100 04/08/19 22:30 87 18 122/70 (87) 100 04/08/19 22:00 109 24 146/84 (104) 100 04/08/19 21:30 88 17 88/66 (73) 100 04/08/19 21:14 89 18 106/75 (85) 100 04/08/19 21:00 110 28 176/111 (132) 100 04/08/19 20:30 91 18 129/82 (98) 100 04/08/19 20:05 100 Cool Aerosol 10.0 40 04/08/19 20:05 87 18 100 Cool Aerosol 10.0 40 99 19 100 04/08/19 20:00 10.0 40 04/08/19 20:00 97.6 102 20 137/85 (102) 100 04/08/19 20:00 Venturi Mask 10.0 Venturi Mask 10.0 04/08/19 19:48 110 04/08/19 19:00 102 19 137/78 (97) 100 04/08/19 18:10 Venturi Mask 10.0 Venturi Mask 10.0 04/08/19 18:00 105 19 134/77 (96) 100 04/08/19 17:00 107 19 129/72 (91) 100 04/08/19 16:17 131/84 04/08/19 16:00 Venturi Mask 10.0 Venturi Mask 10.0 04/08/19 16:00 10.0 40 04/08/19 16:00 97.2 105 18 131/84 (100) 100 04/08/19 16:00 112 04/08/19 15:00 111 23 125/83 (97) 100 04/08/19 14:00 117 21 158/90 (112) 100 04/08/19 13:00 110 21 148/88 (108) 100 04/08/19 12:13 100 Cool Aerosol 10.0 40 04/08/19 12:12 Venturi Mask 10.0 40 04/08/19 12:00 77 04/08/19 12:00 97.5 102 15 133/84 (100) 100 04/08/19 12:00 Venturi Mask 10.0 04/08/19 12:00 10.0 40 04/08/19 11:00 99 26 110/77 (88) 100 04/08/19 10:39 108 22 40 40 Intake and Output 04/08/19 04/09/19 19:00 07:00 Intake Total 1159.96 ml 154.98 ml Output Total 375 ml 275 ml Balance 784.96 ml -120.02 ml IV Total 609.96 ml 154.98 ml Blood Product 500 ml Other 50 ml Output Urine Total 175 ml 275 ml Gastric Drainage Total 200 ml # Bowel Movements 3 General Appearance: no acute distress HEENT: normocephalic Respiratory/Chest: chest wall non-tender, lungs clear Cardiovascular: normal peripheral pulses, normal rate Abdomen: normal bowel sounds Microbiology Date/Time Source Procedure Growth Status 04/07/19 09:30 Blood Blood Culture - Preliminary NO GROWTH AFTER 24 HOURS Resulted 04/07/19 09:20 Blood Blood Culture - Preliminary NO GROWTH AFTER 24 HOURS Resulted 04/07/19 09:30 Sputum Induced Gram Stain - Final Complete 04/07/19 09:30 Sputum Induced Sputum Culture - Final NORMAL UPPER RESPIRATORY DAVID PRESENT Complete Laboratory Tests 04/08/19 10:23: Arterial Blood pH 7.381, Arterial Blood Partial Pressure CO2 45.8H, Arterial Blood Partial Pressure O2 79.5, Arterial Blood HCO3 26.5H, Arterial Blood Oxygen Saturation 94.3L, Arterial Blood Base Excess 1.2, Antonio Test Positive 04/08/19 13:00: Stool Occult Blood [Pending] 04/09/19 04:00: White Blood Count 9.3, Red Blood Count 3.27L, Hemoglobin 9.6#L, Hematocrit 27.0# L, Mean Corpuscular Volume 83, Mean Corpuscular Hemoglobin 29.3, Mean Corpuscular Hemoglobin Concent 35.4, Red Cell Distribution Width 15.1H, Platelet Count 118L, Mean Platelet Volume 5.3L, Neutrophils (%) (Auto) 81.5H, Lymphocytes (%) (Auto) 8.4L, Monocytes (%) (Auto) 5.2, Eosinophils (%) (Auto) 4.7H, Basophils (%) (Auto) 0.3, Sodium Level 148H, Potassium Level 3.4L, Chloride Level 112H, Carbon Dioxide Level 29, Anion Gap 7, Blood Urea Nitrogen 23H, Creatinine 1.5H, Estimat Glomerular Filtration Rate , Glucose Level 88, Calcium Level 11.4H 04/09/19 08:08: Arterial Blood pH 7.329L, Arterial Blood Partial Pressure CO2 52.4H, Arterial Blood Partial Pressure O2 85.7, Arterial Blood HCO3 26.9H, Arterial Blood Oxygen Saturation 95.5, Arterial Blood Base Excess 0.5, Antonio Test Positive 04/09/19 09:41: Vancomycin Level Trough [Pending] Current Medications Medications (Trade) Dose Ordered Sig/La Nena Route PRN Reason Start Time Stop Time Status Last Admin Dose Admin Albuterol/ Ipratropium (Albuterol/ Ipratropium) 3 ml EVERY 6 HOURS PRN HHN Shortness of Breath 04/06/19 12:00 04/10/19 06:29 04/09/19 07:39 Chlorhexidine Gluconate (Martha-Hex 2%) 1 applic DAILY@2000 TOPIC 04/06/19 20:00 05/06/19 19:59 04/08/19 19:46 Dopamine HCl/ Dextrose 250 ml @ 0 mls/hr Q24H IV 04/06/19 08:15 05/06/19 08:14 04/06/19 20:56 Enoxaparin Sodium (Lovenox) 30 mg DAILY SUBQ 04/06/19 09:00 05/04/19 08:59 Hydralazine HCl (Apresoline) 10 mg Q4H PRN IV SBP > 170mmHg 04/08/19 14:45 05/08/19 14:44 Memantine (Namenda) 5 mg BID ORAL 04/06/19 09:00 05/04/19 17:59 04/08/19 18:18 Morphine Sulfate (Morphine Sulfate) 2 mg Q4H PRN IVP For Pain 04/08/19 20:30 04/15/19 20:29 04/09/19 09:34 Norepinephrine Bitartrate 4 mg/ Dextrose 250 ml @ 0 mls/hr Q24H IV 04/06/19 16:17 05/06/19 16:16 04/07/19 00:53 Pantoprazole (Protonix) 40 mg DAILY IVP 04/08/19 09:00 05/08/19 08:59 04/08/19 09:17 Piperacillin Sod/ Tazobactam Sod 3.375 gm/Sodium Chloride 110 ml @ 27.5 mls/hr EVERY 8 HOURS IVPB 04/07/19 10:00 04/12/19 09:59 04/09/19 05:22 Sertraline HCl (Zoloft) 25 mg DAILY ORAL 04/06/19 09:00 05/05/19 08:59 04/08/19 09:17 Vancomycin HCl (Vanco rx to dose) 1 ea DAILY PRN MISC Per rx protocol 04/07/19 08:15 05/07/19 08:14 Vancomycin HCl 500 mg/Dextrose 110 ml @ 110 mls/hr Q24H IVPB 04/08/19 10:00 04/13/19 09:59 04/08/19 09:18 Ganesh Mathews MD Apr 09, 2019 10:21
--- NOTE | 2019-04-09 10:23 | Cardiac Electrophysiology PN ---
Assessment/Plan Assessment/Plan 1. Status post bradycardic arrest with asystole. No evidence of ventricular tachycardia or ventricular fibrillation. Could be secondary to respiratory arrest. Clonidine was discontinued. EF 65%. No further juan antonio episodes. All 3 troponins were less than 0.1 2. S/P Respiratory failure, extubated 04/08/19 3. History of stage III prostate cancer, followed by Dr. Monroy. ELYSSA at [facility] 4. Hypotension. Off Levophed on iv Abx. On prn iv hydralazine 5. Hypercalcemia due to prostate cancer. 6. Hypernatremia. On IV fluids. 7. Anemia, s/p PRBC 04/08/19 DW RN, Amy (Son's at [phone]) and Dr. Mathews Subjective Subjective In ICU off pressors and extubated at around noon yesterday. S/P PRBC. IN SR Objective Last 24 Hour Vital Signs Date Time Temp Pulse Resp B/P (MAP) Pulse Ox O2 Delivery O2 Flow Rate FiO2 04/09/19 09:00 91 15 113/63 (80) 100 04/09/19 08:15 124/74 04/09/19 08:00 97.9 87 15 116/69 (85) 100 04/09/19 08:00 Venturi Mask 8.0 Venturi Mask 8.0 04/09/19 07:39 102 24 100 Cool Aerosol 10.0 40 97 28 100 04/09/19 07:19 100 Cool Aerosol 10.0 40 04/09/19 07:00 120 28 139/101 (114) 100 04/09/19 06:30 90 15 118/78 (91) 100 04/09/19 06:00 90 16 119/66 (83) 100 04/09/19 05:30 96 19 114/75 (88) 100 04/09/19 05:00 88 16 126/74 (91) 100 04/09/19 04:30 99 21 133/74 (93) 100 04/09/19 04:00 97.2 97 21 128/75 (92) 100 04/09/19 04:00 10.0 40 04/09/19 04:00 Venturi Mask 10.0 Venturi Mask 10.0 04/09/19 03:30 98 21 129/75 (93) 100 04/09/19 03:04 84 04/09/19 03:00 87 17 116/78 (91) 100 04/09/19 02:00 89 16 117/70 (86) 100 04/09/19 01:42 100 Cool Aerosol 10.0 40 04/09/19 01:30 86 17 123/85 (98) 100 04/09/19 01:00 107 21 145/91 (109) 100 04/09/19 00:00 Venturi Mask 10.0 Venturi Mask 10.0 04/09/19 00:00 97.8 103 22 138/86 (103) 100 04/08/19 23:30 91 18 142/84 (103) 100 04/08/19 23:06 111 04/08/19 23:00 99 19 148/108 (121) 100 04/08/19 22:30 87 18 122/70 (87) 100 04/08/19 22:00 109 24 146/84 (104) 100 04/08/19 21:30 88 17 88/66 (73) 100 04/08/19 21:14 89 18 106/75 (85) 100 04/08/19 21:00 110 28 176/111 (132) 100 04/08/19 20:30 91 18 129/82 (98) 100 04/08/19 20:05 100 Cool Aerosol 10.0 40 04/08/19 20:05 87 18 100 Cool Aerosol 10.0 40 99 19 100 04/08/19 20:00 10.0 40 04/08/19 20:00 97.6 102 20 137/85 (102) 100 04/08/19 20:00 Venturi Mask 10.0 Venturi Mask 10.0 04/08/19 19:48 110 04/08/19 19:00 102 19 137/78 (97) 100 04/08/19 18:10 Venturi Mask 10.0 Venturi Mask 10.0 04/08/19 18:00 105 19 134/77 (96) 100 04/08/19 17:00 107 19 129/72 (91) 100 04/08/19 16:17 131/84 04/08/19 16:00 Venturi Mask 10.0 Venturi Mask 10.0 04/08/19 16:00 10.0 40 04/08/19 16:00 97.2 105 18 131/84 (100) 100 04/08/19 16:00 112 04/08/19 15:00 111 23 125/83 (97) 100 04/08/19 14:00 117 21 158/90 (112) 100 04/08/19 13:00 110 21 148/88 (108) 100 04/08/19 12:13 100 Cool Aerosol 10.0 40 04/08/19 12:12 Venturi Mask 10.0 40 04/08/19 12:00 77 04/08/19 12:00 97.5 102 15 133/84 (100) 100 04/08/19 12:00 Venturi Mask 10.0 04/08/19 12:00 10.0 40 04/08/19 11:00 99 26 110/77 (88) 100 04/08/19 10:39 108 22 40 40 Intake and Output 04/08/19 04/09/19 19:00 07:00 Intake Total 1159.96 ml 154.98 ml Output Total 375 ml 275 ml Balance 784.96 ml -120.02 ml IV Total 609.96 ml 154.98 ml Blood Product 500 ml Other 50 ml Output Urine Total 175 ml 275 ml Gastric Drainage Total 200 ml # Bowel Movements 3 Laboratory Tests Test 04/08/19 10:23 04/08/19 13:00 04/09/19 04:00 04/09/19 08:08 Arterial Blood pH 7.381 (7.350-7.450) 7.329 (7.350-7.450) Arterial Blood Partial Pressure CO2 45.8 mmHg (35.0-45.0) H 52.4 mmHg (35.0-45.0) H Arterial Blood Partial Pressure O2 79.5 mmHg (75.0-100.0) 85.7 mmHg (75.0-100.0) Arterial Blood HCO3 26.5 mmol/L (22.0-26.0) H 26.9 mmol/L (22.0-26.0) H Arterial Blood Oxygen Saturation 94.3 % (95-100) L 95.5 % (95-100) Arterial Blood Base Excess 1.2 (-2-2) 0.5 (-2-2) Antonio Test Positive Positive Stool Occult Blood Pending White Blood Count 9.3 K/UL (4.8-10.8) Red Blood Count 3.27 M/UL (4.70-6.10) L Hemoglobin 9.6 G/DL (14.2-18.0) #L Hematocrit 27.0 % (42.0-52.0) #L Mean Corpuscular Volume 83 FL (80-99) Mean Corpuscular Hemoglobin 29.3 PG (27.0-31.0) Mean Corpuscular Hemoglobin Concent 35.4 G/DL (32.0-36.0) Red Cell Distribution Width 15.1 % (11.6-14.8) H Platelet Count 118 K/UL (150-450) L Mean Platelet Volume 5.3 FL (6.5-10.1) L Neutrophils (%) (Auto) 81.5 % (45.0-75.0) H Lymphocytes (%) (Auto) 8.4 % (20.0-45.0) L Monocytes (%) (Auto) 5.2 % (1.0-10.0) Eosinophils (%) (Auto) 4.7 % (0.0-3.0) H Basophils (%) (Auto) 0.3 % (0.0-2.0) Sodium Level 148 MMOL/L (136-145) H Potassium Level 3.4 MMOL/L (3.5-5.1) L Chloride Level 112 MMOL/L (98-107) H Carbon Dioxide Level 29 MMOL/L (21-32) Anion Gap 7 mmol/L (5-15) Blood Urea Nitrogen 23 mg/dL (7-18) H Creatinine 1.5 MG/DL (0.55-1.30) H Estimat Glomerular Filtration Rate mL/min (>60) Glucose Level 88 MG/DL (74-106) Calcium Level 11.4 MG/DL (8.5-10.1) H Test 04/09/19 09:41 Vancomycin Level Trough Pending Microbiology Date/Time Source Procedure Growth Status 04/07/19 09:30 Blood Blood Culture - Preliminary NO GROWTH AFTER 24 HOURS Resulted 04/07/19 09:20 Blood Blood Culture - Preliminary NO GROWTH AFTER 24 HOURS Resulted 04/07/19 09:30 Sputum Induced Gram Stain - Final Complete 04/07/19 09:30 Sputum Induced Sputum Culture - Final NORMAL UPPER RESPIRATORY DAVID PRESENT Complete Objective HEENT: No JVD with NG tube in LUNGS: Coarse rhonchi. CARDIOVASCULAR: Regular S1 and S2 and tachycardic. ABDOMEN: Soft and nondistended. EXTREMITIES: No pitting edema. Nain Cortez MD Apr 09, 2019 10:22
[2019-04-09] MEDS: Pantoprazole Inj IVP SCH (10:34)
[2019-04-09] MEDS: Memantine 5 MG TAB ORAL SCH ×2 (10:34→18:09)
[2019-04-09] MEDS: Sertraline 50mg tab ORAL SCH (10:35)
--- NOTE | 2019-04-09 11:16 | Infectious Diseases Prog Note ---
Assessment/Plan Assessment/Plan Assessment: s/p asystole cardiac arrest / VDRF; s/p extubation / Shock, off pressors now Sepsis UTI -u/a wbc 20-30, nit +, leuk +3; ucx >100k E.coli (R amp, bactrim; otherwise S) Probable Aspiration pneumonitis vs PNA -04/08 CXR: Patchy perihilar disease which may be asymmetric interstitial edema or infiltrate unchanged. Interval resolution of right basal atelectasis. -/ sp cx normal sharyn(prelim) Afebrile Mild leukocytosis, recurrent- SP -2/ Bcx NTD u/a wbc tnct, nit neg, leuk +; ucx p -04/06 CXR: Interval resolution of right apical density. This suggests the diagnosis was atelectasis rather than an apical cap from blood, which was suggested as a possibility on the prior report. The right upper lobe atelectasis has resolved. Suspicion of new atelectasis at the right lung base. s/p recent fall LETA Hypokalemia prostate CA stage III chronic indwelling guerra catheter Plan: -Continue empiric ZOsyn #3 (abx d #7/10) -d/cn empiric IV Vancomycin #3 -/ SP Ceftriaxone #4 -f/u cx -Monitor CBC/CMP, temperatures -aspiration precautions -ICU care -Cards, renal f/u -repeat cultures Thank you for this consultation. Will continue to follow along with you. Discussed with RN Subjective Allergies: Coded Allergies: No Known Allergies (Unverified , 04/03/19) Subjective afebrile no leukocytosis remains intubated in ICU off pressors cr improving extubated yesterday, now on VM Objective Vital Signs Last 24 Hour Vital Signs Date Time Temp Pulse Resp B/P (MAP) Pulse Ox O2 Delivery O2 Flow Rate FiO2 04/09/19 09:00 91 15 113/63 (80) 100 04/09/19 08:15 124/74 04/09/19 08:00 97.9 87 15 116/69 (85) 100 04/09/19 08:00 Venturi Mask 8.0 Venturi Mask 8.0 04/09/19 07:39 102 24 100 Cool Aerosol 10.0 40 97 28 100 04/09/19 07:19 100 Cool Aerosol 10.0 40 04/09/19 07:00 120 28 139/101 (114) 100 04/09/19 06:30 90 15 118/78 (91) 100 04/09/19 06:00 90 16 119/66 (83) 100 04/09/19 05:30 96 19 114/75 (88) 100 04/09/19 05:00 88 16 126/74 (91) 100 04/09/19 04:30 99 21 133/74 (93) 100 04/09/19 04:00 97.2 97 21 128/75 (92) 100 04/09/19 04:00 10.0 40 04/09/19 04:00 Venturi Mask 10.0 Venturi Mask 10.0 04/09/19 03:30 98 21 129/75 (93) 100 04/09/19 03:04 84 04/09/19 03:00 87 17 116/78 (91) 100 04/09/19 02:00 89 16 117/70 (86) 100 04/09/19 01:42 100 Cool Aerosol 10.0 40 04/09/19 01:30 86 17 123/85 (98) 100 04/09/19 01:00 107 21 145/91 (109) 100 04/09/19 00:00 Venturi Mask 10.0 Venturi Mask 10.0 04/09/19 00:00 97.8 103 22 138/86 (103) 100 04/08/19 23:30 91 18 142/84 (103) 100 04/08/19 23:06 111 04/08/19 23:00 99 19 148/108 (121) 100 04/08/19 22:30 87 18 122/70 (87) 100 04/08/19 22:00 109 24 146/84 (104) 100 04/08/19 21:30 88 17 88/66 (73) 100 04/08/19 21:14 89 18 106/75 (85) 100 04/08/19 21:00 110 28 176/111 (132) 100 04/08/19 20:30 91 18 129/82 (98) 100 04/08/19 20:05 100 Cool Aerosol 10.0 40 04/08/19 20:05 87 18 100 Cool Aerosol 10.0 40 99 19 100 04/08/19 20:00 10.0 40 04/08/19 20:00 97.6 102 20 137/85 (102) 100 04/08/19 20:00 Venturi Mask 10.0 Venturi Mask 10.0 04/08/19 19:48 110 04/08/19 19:00 102 19 137/78 (97) 100 04/08/19 18:10 Venturi Mask 10.0 Venturi Mask 10.0 04/08/19 18:00 105 19 134/77 (96) 100 04/08/19 17:00 107 19 129/72 (91) 100 04/08/19 16:17 131/84 04/08/19 16:00 Venturi Mask 10.0 Venturi Mask 10.0 04/08/19 16:00 10.0 40 04/08/19 16:00 97.2 105 18 131/84 (100) 100 04/08/19 16:00 112 04/08/19 15:00 111 23 125/83 (97) 100 04/08/19 14:00 117 21 158/90 (112) 100 04/08/19 13:00 110 21 148/88 (108) 100 04/08/19 12:13 100 Cool Aerosol 10.0 40 04/08/19 12:12 Venturi Mask 10.0 40 04/08/19 12:00 77 04/08/19 12:00 97.5 102 15 133/84 (100) 100 04/08/19 12:00 Venturi Mask 10.0 04/08/19 12:00 10.0 40 Height (Feet): 5 Height (Inches): 7.00 Weight (Pounds): 116 Objective General Appearance: normal inspection, alert, Chronically Ill Head: atraumatic ENT: normal ENT inspection, normal voice, dry mucus membranes Neck: normal inspection, full range of motion, supple, no bony tend Respiratory: normal inspection, lungs clear, normal breath sounds, no respiratory distress, no retraction, no wheezing Cardiovascular #1: regular rate, rhythm, no edema Gastrointestinal: normal inspection, normal bowel sounds, non tender, soft, no guarding, no hernia Genitourinary: no CVA tenderness Musculoskeletal: normal inspection, back normal, normal range of motion Neurologic: alert, motor strength/tone normal, oriented, motor weakness, responsive, speech normal, other - atrophy to muscles Psychiatric: normal inspection, judgement/insight normal, mood/affect normal Skin: no rash Microbiology Date/Time Source Procedure Growth Status 04/07/19 09:30 Blood Blood Culture - Preliminary NO GROWTH AFTER 24 HOURS Resulted 04/07/19 09:20 Blood Blood Culture - Preliminary NO GROWTH AFTER 24 HOURS Resulted 04/07/19 09:30 Sputum Induced Gram Stain - Final Complete 04/07/19 09:30 Sputum Induced Sputum Culture - Final NORMAL UPPER RESPIRATORY SHARYN PRESENT Complete Laboratory Tests Test 04/08/19 13:00 04/09/19 04:00 04/09/19 08:08 04/09/19 09:41 Stool Occult Blood Pending White Blood Count 9.3 K/UL (4.8-10.8) Red Blood Count 3.27 M/UL (4.70-6.10) L Hemoglobin 9.6 G/DL (14.2-18.0) #L Hematocrit 27.0 % (42.0-52.0) #L Mean Corpuscular Volume 83 FL (80-99) Mean Corpuscular Hemoglobin 29.3 PG (27.0-31.0) Mean Corpuscular Hemoglobin Concent 35.4 G/DL (32.0-36.0) Red Cell Distribution Width 15.1 % (11.6-14.8) H Platelet Count 118 K/UL (150-450) L Mean Platelet Volume 5.3 FL (6.5-10.1) L Neutrophils (%) (Auto) 81.5 % (45.0-75.0) H Lymphocytes (%) (Auto) 8.4 % (20.0-45.0) L Monocytes (%) (Auto) 5.2 % (1.0-10.0) Eosinophils (%) (Auto) 4.7 % (0.0-3.0) H Basophils (%) (Auto) 0.3 % (0.0-2.0) Sodium Level 148 MMOL/L (136-145) H Potassium Level 3.4 MMOL/L (3.5-5.1) L Chloride Level 112 MMOL/L (98-107) H Carbon Dioxide Level 29 MMOL/L (21-32) Anion Gap 7 mmol/L (5-15) Blood Urea Nitrogen 23 mg/dL (7-18) H Creatinine 1.5 MG/DL (0.55-1.30) H Estimat Glomerular Filtration Rate mL/min (>60) Glucose Level 88 MG/DL (74-106) Calcium Level 11.4 MG/DL (8.5-10.1) H Arterial Blood pH 7.329 (7.350-7.450) Arterial Blood Partial Pressure CO2 52.4 mmHg (35.0-45.0) H Arterial Blood Partial Pressure O2 85.7 mmHg (75.0-100.0) Arterial Blood HCO3 26.9 mmol/L (22.0-26.0) H Arterial Blood Oxygen Saturation 95.5 % (95-100) Arterial Blood Base Excess 0.5 (-2-2) Antonio Test Positive Vancomycin Level Trough 8.0 ug/mL (5.0-12.0) Current Medications Medications (Trade) Dose Ordered Sig/La Nena Route PRN Reason Start Time Stop Time Status Last Admin Dose Admin Albuterol/ Ipratropium (Albuterol/ Ipratropium) 3 ml EVERY 6 HOURS PRN HHN Shortness of Breath 04/06/19 12:00 04/10/19 06:29 04/09/19 07:39 Chlorhexidine Gluconate (Martha-Hex 2%) 1 applic DAILY@2000 TOPIC 04/06/19 20:00 05/06/19 19:59 04/08/19 19:46 Dopamine HCl/ Dextrose 250 ml @ 0 mls/hr Q24H IV 04/06/19 08:15 05/06/19 08:14 04/06/19 20:56 Enoxaparin Sodium (Lovenox) 30 mg DAILY SUBQ 04/06/19 09:00 05/04/19 08:59 Hydralazine HCl (Apresoline) 10 mg Q4H PRN IV SBP > 170mmHg 04/08/19 14:45 05/08/19 14:44 Memantine (Namenda) 5 mg BID ORAL 04/06/19 09:00 05/04/19 17:59 04/09/19 10:34 Morphine Sulfate (Morphine Sulfate) 2 mg Q4H PRN IVP For Pain 04/08/19 20:30 04/15/19 20:29 04/09/19 09:34 Norepinephrine Bitartrate 4 mg/ Dextrose 250 ml @ 0 mls/hr Q24H IV 04/06/19 16:17 05/06/19 16:16 04/07/19 00:53 Pantoprazole (Protonix) 40 mg DAILY IVP 04/08/19 09:00 05/08/19 08:59 04/09/19 10:34 Piperacillin Sod/ Tazobactam Sod 3.375 gm/Sodium Chloride 110 ml @ 27.5 mls/hr EVERY 8 HOURS IVPB 04/07/19 10:00 04/12/19 09:59 04/09/19 05:22 Sertraline HCl (Zoloft) 25 mg DAILY ORAL 04/06/19 09:00 05/05/19 08:59 04/09/19 10:35 Vancomycin HCl (Vanco rx to dose) 1 ea DAILY PRN MISC Per rx protocol 04/07/19 08:15 05/07/19 08:14 Vancomycin HCl 750 mg/Sodium Chloride 275 ml @ 183.333 mls/hr Q24H IVPB 04/09/19 12:00 04/14/19 11:59 Rafia Nielson M.D. Apr 09, 2019 11:16
[2019-04-09] MEDS ORDERED: Vancomycin 750 MG in NS 275 ML IVPB SCH (12:00)
--- NOTE | 2019-04-09 12:00 | NUR ---
NURSE NOTES: Patient sleeping at this time. Patient HR 83 on cardiac care unit nurse. Patient remains NPO at this time. NGT present on the left nares that is hooked to low intermittent suction. No output noted. Patient on 3L NC with no sign of resp distress. 18F guerra for urine retention leaking at this time. Primary MD will be notified. NO urologist on the case. Wounds covered with dressing dry and intact. Right forearm 20 gauge peripheral IV remains patent, asymptomatic, and saline locked. Left subclavian central line remains patent, asymptomatic, dressing intact, and saline locked at this time. Will continue to monitor. Patient bed in low position with bed alarm on and call light in reach at this time. Will continue to monitor. Patient repositioned and oral care done at this time.
--- NOTE | 2019-04-09 12:01 | GI Progress Note ---
Assessment/Plan Problems: (1) Coffee ground emesis ICD Codes: K92.0 - Hematemesis SNOMED: 95430272 (2) Anemia ICD Codes: D64.9 - Anemia, unspecified SNOMED: 944706509 Status: unchanged Status Narrative Discussed with Dr. Lamb. Assessment/Plan This is a 73-year-old male, status post Code Blue with coffee-grounds emesis, tachycardia, anemia. May need endoscopy at some point, but not stable for any GI procedures at this time. NG-tube to low intermittent suction. IV hydration for blood pressure stability. Protonix 40 mg q.12. F/U OB stool prn transfusions maintain above 7 will follow The patient was seen and examined at bedside and all new and available data was reviewed in the patients chart. I agree with the above findings, impression and plan. (Patient seen earlier today. Signature stamp does not reflect patient encounter time.). - Tyrone Lamb MD Subjective Subjective limited Objective Last 24 Hour Vital Signs Date Time Temp Pulse Resp B/P (MAP) Pulse Ox O2 Delivery O2 Flow Rate FiO2 04/09/19 11:00 100 20 127/71 (89) 100 04/09/19 10:00 89 13 102/61 (75) 100 04/09/19 09:00 91 15 113/63 (80) 100 04/09/19 08:15 124/74 04/09/19 08:00 97.9 87 15 116/69 (85) 100 04/09/19 08:00 Venturi Mask 8.0 Venturi Mask 8.0 04/09/19 08:00 3.0 04/09/19 07:39 102 24 100 Cool Aerosol 10.0 40 97 28 100 04/09/19 07:19 100 Cool Aerosol 10.0 40 04/09/19 07:00 120 28 139/101 (114) 100 04/09/19 06:30 90 15 118/78 (91) 100 04/09/19 06:00 90 16 119/66 (83) 100 04/09/19 05:30 96 19 114/75 (88) 100 04/09/19 05:00 88 16 126/74 (91) 100 04/09/19 04:30 99 21 133/74 (93) 100 04/09/19 04:00 97.2 97 21 128/75 (92) 100 04/09/19 04:00 10.0 40 04/09/19 04:00 Venturi Mask 10.0 Venturi Mask 10.0 04/09/19 03:30 98 21 129/75 (93) 100 04/09/19 03:04 84 04/09/19 03:00 87 17 116/78 (91) 100 04/09/19 02:00 89 16 117/70 (86) 100 04/09/19 01:42 100 Cool Aerosol 10.0 40 04/09/19 01:30 86 17 123/85 (98) 100 04/09/19 01:00 107 21 145/91 (109) 100 04/09/19 00:00 Venturi Mask 10.0 Venturi Mask 10.0 04/09/19 00:00 97.8 103 22 138/86 (103) 100 04/08/19 23:30 91 18 142/84 (103) 100 04/08/19 23:06 111 04/08/19 23:00 99 19 148/108 (121) 100 04/08/19 22:30 87 18 122/70 (87) 100 04/08/19 22:00 109 24 146/84 (104) 100 04/08/19 21:30 88 17 88/66 (73) 100 04/08/19 21:14 89 18 106/75 (85) 100 04/08/19 21:00 110 28 176/111 (132) 100 04/08/19 20:30 91 18 129/82 (98) 100 04/08/19 20:05 100 Cool Aerosol 10.0 40 04/08/19 20:05 87 18 100 Cool Aerosol 10.0 40 99 19 100 04/08/19 20:00 10.0 40 04/08/19 20:00 97.6 102 20 137/85 (102) 100 04/08/19 20:00 Venturi Mask 10.0 Venturi Mask 10.0 04/08/19 19:48 110 04/08/19 19:00 102 19 137/78 (97) 100 04/08/19 18:10 Venturi Mask 10.0 Venturi Mask 10.0 04/08/19 18:00 105 19 134/77 (96) 100 04/08/19 17:00 107 19 129/72 (91) 100 04/08/19 16:17 131/84 04/08/19 16:00 Venturi Mask 10.0 Venturi Mask 10.0 04/08/19 16:00 10.0 40 04/08/19 16:00 97.2 105 18 131/84 (100) 100 04/08/19 16:00 112 04/08/19 15:00 111 23 125/83 (97) 100 04/08/19 14:00 117 21 158/90 (112) 100 04/08/19 13:00 110 21 148/88 (108) 100 04/08/19 12:13 100 Cool Aerosol 10.0 40 04/08/19 12:12 Venturi Mask 10.0 40 04/08/19 12:00 77 04/08/19 12:00 97.5 102 15 133/84 (100) 100 04/08/19 12:00 Venturi Mask 10.0 04/08/19 12:00 10.0 40 Intake and Output 04/08/19 04/09/19 19:00 07:00 Intake Total 1159.96 ml 154.98 ml Output Total 375 ml 275 ml Balance 784.96 ml -120.02 ml IV Total 609.96 ml 154.98 ml Blood Product 500 ml Other 50 ml Output Urine Total 175 ml 275 ml Gastric Drainage Total 200 ml # Bowel Movements 3 Laboratory Tests Test 04/08/19 13:00 04/09/19 04:00 04/09/19 08:08 04/09/19 09:41 Stool Occult Blood Pending White Blood Count 9.3 K/UL (4.8-10.8) Red Blood Count 3.27 M/UL (4.70-6.10) L Hemoglobin 9.6 G/DL (14.2-18.0) #L Hematocrit 27.0 % (42.0-52.0) #L Mean Corpuscular Volume 83 FL (80-99) Mean Corpuscular Hemoglobin 29.3 PG (27.0-31.0) Mean Corpuscular Hemoglobin Concent 35.4 G/DL (32.0-36.0) Red Cell Distribution Width 15.1 % (11.6-14.8) H Platelet Count 118 K/UL (150-450) L Mean Platelet Volume 5.3 FL (6.5-10.1) L Neutrophils (%) (Auto) 81.5 % (45.0-75.0) H Lymphocytes (%) (Auto) 8.4 % (20.0-45.0) L Monocytes (%) (Auto) 5.2 % (1.0-10.0) Eosinophils (%) (Auto) 4.7 % (0.0-3.0) H Basophils (%) (Auto) 0.3 % (0.0-2.0) Sodium Level 148 MMOL/L (136-145) H Potassium Level 3.4 MMOL/L (3.5-5.1) L Chloride Level 112 MMOL/L (98-107) H Carbon Dioxide Level 29 MMOL/L (21-32) Anion Gap 7 mmol/L (5-15) Blood Urea Nitrogen 23 mg/dL (7-18) H Creatinine 1.5 MG/DL (0.55-1.30) H Estimat Glomerular Filtration Rate mL/min (>60) Glucose Level 88 MG/DL (74-106) Calcium Level 11.4 MG/DL (8.5-10.1) H Arterial Blood pH 7.329 (7.350-7.450) Arterial Blood Partial Pressure CO2 52.4 mmHg (35.0-45.0) H Arterial Blood Partial Pressure O2 85.7 mmHg (75.0-100.0) Arterial Blood HCO3 26.9 mmol/L (22.0-26.0) H Arterial Blood Oxygen Saturation 95.5 % (95-100) Arterial Blood Base Excess 0.5 (-2-2) Antonio Test Positive Vancomycin Level Trough 8.0 ug/mL (5.0-12.0) Height (Feet): 5 Height (Inches): 7.00 Weight (Pounds): 116 General Appearance: WD/WN, no apparent distress, alert Cardiovascular: normal rate Respiratory/Chest: normal breath sounds, no respiratory distress Abdominal Exam: normal bowel sounds, non tender, soft, other - NGT Extremities: non-tender Claudia Franklin NP Apr 09, 2019 12:01
--- NOTE | 2019-04-09 12:34 | General Progress Note ---
Assessment/Plan Problem List: (1) UTI (urinary tract infection) ICD Codes: N39.0 - Urinary tract infection, site not specified SNOMED: 89681416 (2) Weak ICD Codes: R53.1 - Weakness SNOMED: 27473280 (3) Anemia ICD Codes: D64.9 - Anemia, unspecified SNOMED: 358857630 (4) Dehydration ICD Codes: E86.0 - Dehydration SNOMED: 64945422, 99743071 (5) Episode of generalized weakness ICD Codes: R53.1 - Weakness SNOMED: 76347061 (6) Stage III adenocarcinoma of prostate ICD Codes: C61 - Malignant neoplasm of prostate SNOMED: 090201082, 39568378 Status: progressing Assessment/Plan: wean vent pt diet abx iv fluid heme gi eval cbc bmp am Subjective Constitutional: Reports: weakness Allergies: Coded Allergies: No Known Allergies (Unverified , 04/03/19) All Systems: reviewed and negative except above Subjective o2nc ng in icu Objective Last 24 Hour Vital Signs Date Time Temp Pulse Resp B/P (MAP) Pulse Ox O2 Delivery O2 Flow Rate FiO2 04/09/19 11:00 100 20 127/71 (89) 100 04/09/19 10:00 89 13 102/61 (75) 100 04/09/19 09:00 91 15 113/63 (80) 100 04/09/19 08:15 124/74 04/09/19 08:00 97.9 87 15 116/69 (85) 100 04/09/19 08:00 Venturi Mask 8.0 Venturi Mask 8.0 04/09/19 08:00 3.0 04/09/19 07:39 102 24 100 Cool Aerosol 10.0 40 97 28 100 04/09/19 07:19 100 Cool Aerosol 10.0 40 04/09/19 07:00 120 28 139/101 (114) 100 04/09/19 06:30 90 15 118/78 (91) 100 04/09/19 06:00 90 16 119/66 (83) 100 04/09/19 05:30 96 19 114/75 (88) 100 04/09/19 05:00 88 16 126/74 (91) 100 04/09/19 04:30 99 21 133/74 (93) 100 04/09/19 04:00 97.2 97 21 128/75 (92) 100 04/09/19 04:00 10.0 40 04/09/19 04:00 Venturi Mask 10.0 Venturi Mask 10.0 04/09/19 03:30 98 21 129/75 (93) 100 04/09/19 03:04 84 04/09/19 03:00 87 17 116/78 (91) 100 04/09/19 02:00 89 16 117/70 (86) 100 04/09/19 01:42 100 Cool Aerosol 10.0 40 04/09/19 01:30 86 17 123/85 (98) 100 04/09/19 01:00 107 21 145/91 (109) 100 04/09/19 00:00 Venturi Mask 10.0 Venturi Mask 10.0 04/09/19 00:00 97.8 103 22 138/86 (103) 100 04/08/19 23:30 91 18 142/84 (103) 100 04/08/19 23:06 111 04/08/19 23:00 99 19 148/108 (121) 100 04/08/19 22:30 87 18 122/70 (87) 100 04/08/19 22:00 109 24 146/84 (104) 100 04/08/19 21:30 88 17 88/66 (73) 100 04/08/19 21:14 89 18 106/75 (85) 100 04/08/19 21:00 110 28 176/111 (132) 100 04/08/19 20:30 91 18 129/82 (98) 100 04/08/19 20:05 100 Cool Aerosol 10.0 40 04/08/19 20:05 87 18 100 Cool Aerosol 10.0 40 99 19 100 04/08/19 20:00 10.0 40 04/08/19 20:00 97.6 102 20 137/85 (102) 100 04/08/19 20:00 Venturi Mask 10.0 Venturi Mask 10.0 04/08/19 19:48 110 04/08/19 19:00 102 19 137/78 (97) 100 04/08/19 18:10 Venturi Mask 10.0 Venturi Mask 10.0 04/08/19 18:00 105 19 134/77 (96) 100 04/08/19 17:00 107 19 129/72 (91) 100 04/08/19 16:17 131/84 04/08/19 16:00 Venturi Mask 10.0 Venturi Mask 10.0 04/08/19 16:00 10.0 40 04/08/19 16:00 97.2 105 18 131/84 (100) 100 04/08/19 16:00 112 04/08/19 15:00 111 23 125/83 (97) 100 04/08/19 14:00 117 21 158/90 (112) 100 04/08/19 13:00 110 21 148/88 (108) 100 Intake and Output 04/08/19 04/09/19 19:00 07:00 Intake Total 1159.96 ml 154.98 ml Output Total 375 ml 275 ml Balance 784.96 ml -120.02 ml IV Total 609.96 ml 154.98 ml Blood Product 500 ml Other 50 ml Output Urine Total 175 ml 275 ml Gastric Drainage Total 200 ml # Bowel Movements 3 Laboratory Tests 04/08/19 13:00: Stool Occult Blood Negative 04/09/19 04:00: White Blood Count 9.3, Red Blood Count 3.27L, Hemoglobin 9.6#L, Hematocrit 27.0# L, Mean Corpuscular Volume 83, Mean Corpuscular Hemoglobin 29.3, Mean Corpuscular Hemoglobin Concent 35.4, Red Cell Distribution Width 15.1H, Platelet Count 118L, Mean Platelet Volume 5.3L, Neutrophils (%) (Auto) 81.5H, Lymphocytes (%) (Auto) 8.4L, Monocytes (%) (Auto) 5.2, Eosinophils (%) (Auto) 4.7H, Basophils (%) (Auto) 0.3, Sodium Level 148H, Potassium Level 3.4L, Chloride Level 112H, Carbon Dioxide Level 29, Anion Gap 7, Blood Urea Nitrogen 23H, Creatinine 1.5H, Estimat Glomerular Filtration Rate , Glucose Level 88, Calcium Level 11.4H 04/09/19 08:08: Arterial Blood pH 7.329L, Arterial Blood Partial Pressure CO2 52.4H, Arterial Blood Partial Pressure O2 85.7, Arterial Blood HCO3 26.9H, Arterial Blood Oxygen Saturation 95.5, Arterial Blood Base Excess 0.5, Antonio Test Positive 04/09/19 09:41: Vancomycin Level Trough 8.0 Height (Feet): 5 Height (Inches): 7.00 Weight (Pounds): 116 General Appearance: lethargic EENT: normal ENT inspection Neck: normal alignment Cardiovascular: normal peripheral pulses, normal rate, regular rhythm Respiratory/Chest: chest wall non-tender, decreased breath sounds Abdomen: normal bowel sounds, non tender, soft Extremities: normal inspection Edema: no edema noted Arm (L), no edema noted Arm (R), no edema noted Leg (L), no edema noted Leg (R), no edema noted Pedal (L), no edema noted Pedal (R), no edema noted Generalized Neurologic: motor weakness Skin: normal pigmentation, warm/dry Sawyer Toussaint DO Apr 09, 2019 12:34
--- NOTE | 2019-04-09 15:15 | NUR ---
NURSE NOTES: Received verbal order to start tube feeding vital AF at 10mL/hr. Order read back, verified, and placed at this time.
--- NOTE | 2019-04-09 15:51 | Surgery Progress Note ---
Surgery Progress Note Subjective Procedure Performed right subclavian central venous catheter insertion Additional Comments doing well extubated ng tube without output start feeding trial downgrade Objective Last 24 Hour Vital Signs Date Time Temp Pulse Resp B/P (MAP) Pulse Ox O2 Delivery O2 Flow Rate FiO2 04/09/19 15:00 92 13 118/72 (87) 100 04/09/19 14:00 92 14 132/76 (94) 100 04/09/19 13:43 100 22 100 Nasal Cannula 3.0 32 103 22 100 04/09/19 13:00 106 21 155/88 (110) 100 04/09/19 12:42 99 Cool Aerosol 10.0 40 04/09/19 12:00 Venturi Mask 8.0 Venturi Mask 8.0 04/09/19 12:00 3.0 04/09/19 12:00 97.9 91 16 130/77 (94) 100 04/09/19 12:00 84 04/09/19 11:00 100 20 127/71 (89) 100 04/09/19 10:00 89 13 102/61 (75) 100 04/09/19 09:00 91 15 113/63 (80) 100 04/09/19 08:15 124/74 04/09/19 08:00 87 04/09/19 08:00 97.9 87 15 116/69 (85) 100 04/09/19 08:00 Venturi Mask 8.0 Venturi Mask 8.0 04/09/19 08:00 3.0 04/09/19 07:39 102 24 100 Cool Aerosol 10.0 40 97 28 100 04/09/19 07:19 100 Cool Aerosol 10.0 40 04/09/19 07:00 120 28 139/101 (114) 100 04/09/19 06:30 90 15 118/78 (91) 100 04/09/19 06:00 90 16 119/66 (83) 100 04/09/19 05:30 96 19 114/75 (88) 100 04/09/19 05:00 88 16 126/74 (91) 100 04/09/19 04:30 99 21 133/74 (93) 100 04/09/19 04:00 97.2 97 21 128/75 (92) 100 04/09/19 04:00 10.0 40 04/09/19 04:00 Venturi Mask 10.0 Venturi Mask 10.0 04/09/19 03:30 98 21 129/75 (93) 100 04/09/19 03:04 84 04/09/19 03:00 87 17 116/78 (91) 100 04/09/19 02:00 89 16 117/70 (86) 100 04/09/19 01:42 100 Cool Aerosol 10.0 40 04/09/19 01:30 86 17 123/85 (98) 100 04/09/19 01:00 107 21 145/91 (109) 100 04/09/19 00:00 Venturi Mask 10.0 Venturi Mask 10.0 04/09/19 00:00 97.8 103 22 138/86 (103) 100 04/08/19 23:30 91 18 142/84 (103) 100 04/08/19 23:06 111 04/08/19 23:00 99 19 148/108 (121) 100 04/08/19 22:30 87 18 122/70 (87) 100 04/08/19 22:00 109 24 146/84 (104) 100 04/08/19 21:30 88 17 88/66 (73) 100 04/08/19 21:14 89 18 106/75 (85) 100 04/08/19 21:00 110 28 176/111 (132) 100 04/08/19 20:30 91 18 129/82 (98) 100 04/08/19 20:05 100 Cool Aerosol 10.0 40 04/08/19 20:05 87 18 100 Cool Aerosol 10.0 40 99 19 100 04/08/19 20:00 10.0 40 04/08/19 20:00 97.6 102 20 137/85 (102) 100 04/08/19 20:00 Venturi Mask 10.0 Venturi Mask 10.0 04/08/19 19:48 110 04/08/19 19:00 102 19 137/78 (97) 100 04/08/19 18:10 Venturi Mask 10.0 Venturi Mask 10.0 04/08/19 18:00 105 19 134/77 (96) 100 04/08/19 17:00 107 19 129/72 (91) 100 04/08/19 16:17 131/84 04/08/19 16:00 Venturi Mask 10.0 Venturi Mask 10.0 04/08/19 16:00 10.0 40 04/08/19 16:00 97.2 105 18 131/84 (100) 100 04/08/19 16:00 112 I&O Intake and Output 04/08/19 04/09/19 19:00 07:00 Intake Total 1159.96 ml 154.98 ml Output Total 375 ml 275 ml Balance 784.96 ml -120.02 ml IV Total 609.96 ml 154.98 ml Blood Product 500 ml Other 50 ml Output Urine Total 175 ml 275 ml Gastric Drainage Total 200 ml # Bowel Movements 3 Dressing: other Wound: other Drains: other Cardiovascular: RSR Respiratory: decreased breath sounds Abdomen: soft, present bowel sounds, non-distended Extremities: no tenderness, no cyanosis, other Laboratory Tests Test 04/09/19 04:00 04/09/19 08:08 04/09/19 09:41 White Blood Count 9.3 K/UL (4.8-10.8) Red Blood Count 3.27 M/UL (4.70-6.10) L Hemoglobin 9.6 G/DL (14.2-18.0) #L Hematocrit 27.0 % (42.0-52.0) #L Mean Corpuscular Volume 83 FL (80-99) Mean Corpuscular Hemoglobin 29.3 PG (27.0-31.0) Mean Corpuscular Hemoglobin Concent 35.4 G/DL (32.0-36.0) Red Cell Distribution Width 15.1 % (11.6-14.8) H Platelet Count 118 K/UL (150-450) L Mean Platelet Volume 5.3 FL (6.5-10.1) L Neutrophils (%) (Auto) 81.5 % (45.0-75.0) H Lymphocytes (%) (Auto) 8.4 % (20.0-45.0) L Monocytes (%) (Auto) 5.2 % (1.0-10.0) Eosinophils (%) (Auto) 4.7 % (0.0-3.0) H Basophils (%) (Auto) 0.3 % (0.0-2.0) Sodium Level 148 MMOL/L (136-145) H Potassium Level 3.4 MMOL/L (3.5-5.1) L Chloride Level 112 MMOL/L (98-107) H Carbon Dioxide Level 29 MMOL/L (21-32) Anion Gap 7 mmol/L (5-15) Blood Urea Nitrogen 23 mg/dL (7-18) H Creatinine 1.5 MG/DL (0.55-1.30) H Estimat Glomerular Filtration Rate mL/min (>60) Glucose Level 88 MG/DL (74-106) Calcium Level 11.4 MG/DL (8.5-10.1) H Arterial Blood pH 7.329 (7.350-7.450) Arterial Blood Partial Pressure CO2 52.4 mmHg (35.0-45.0) H Arterial Blood Partial Pressure O2 85.7 mmHg (75.0-100.0) Arterial Blood HCO3 26.9 mmol/L (22.0-26.0) H Arterial Blood Oxygen Saturation 95.5 % (95-100) Arterial Blood Base Excess 0.5 (-2-2) Antonio Test Positive Vancomycin Level Trough 8.0 ug/mL (5.0-12.0) Plan Problems: (1) Cardiac arrest Assessment & Plan: extubated on face mask oxygenating well hypotensive off pressors central line placed left subclavian iv fluids abx as per ID trend labs abg okay start tube feeds via ng tube trial cont current treatment will follow with recs thank you (2) Stage III adenocarcinoma of prostate Assessment & Plan: patient with state 3 prostate cancer pending treatment at [facility] unlikely related to acute cardiac arrest this am abd exam with mild distention pending KUB no acute surgical intervention planned onc input thank you will follow with Jay Conrad Apr 09, 2019 15:51
--- NOTE | 2019-04-09 16:00 | NUR ---
NURSE NOTES: Patient awake and oriented to name, person, and confused to time and purpose at this time. Patient HR 100 on tests superintendent. Patient now has order for tube feeding vital AF at 10mL/hr per Dr Acevedo. NGT remains patent and running tube feeding. Patient on 3L NC with no sign of resp distress. Morales for urine retention continues to leak at this time. Urologist consulted. Wound dressings replaced. Right forearm 20 gauge peripheral IV remains patent, asymptomatic, and saline locked. Left subclavian central line remains patent, asymptomatic, dressing intact, and running Zosyn at this time. Will continue to monitor. Patient bed in low position with bed alarm on and call light in reach at this time. Will continue to monitor. Patient repositioned and oral care done at this time.
--- NOTE | 2019-04-09 18:19 | Nephrology Progress Note ---
Assessment/Plan Status: progressing Assessment/Plan: A/P 1. LETA. secondary to dehydration from hypercalcemia/ischemic ATN post arrest - Cr stable 1.5 2. Prostate cancer with tremendously elevated PSA 800 Defer to Hematology/Oncology. 3. Hypokalemia. corrected 4. Sepsis and UTI per Infectious Disease. 5. Hypernatremia- resolved. 6. S/P Cardiac Arrest- extubated 7- Hypercalcemia of malignancy- Restart Calcitonin if Ca worsens Subjective Date patient seen: Apr 09, 2019 Time patient seen: 18:17 ROS Limited/Unobtainable: Yes Allergies: Coded Allergies: No Known Allergies (Unverified , 04/03/19) Subjective Patient now extubated Objective Last 24 Hour Vital Signs Date Time Temp Pulse Resp B/P (MAP) Pulse Ox O2 Delivery O2 Flow Rate FiO2 04/09/19 16:17 144/84 04/09/19 15:00 92 13 118/72 (87) 100 04/09/19 14:00 92 14 132/76 (94) 100 04/09/19 13:43 100 22 100 Nasal Cannula 3.0 32 103 22 100 04/09/19 13:00 106 21 155/88 (110) 100 04/09/19 12:42 99 Cool Aerosol 10.0 40 04/09/19 12:00 Venturi Mask 8.0 Venturi Mask 8.0 04/09/19 12:00 3.0 04/09/19 12:00 97.9 91 16 130/77 (94) 100 04/09/19 12:00 84 04/09/19 11:00 100 20 127/71 (89) 100 04/09/19 10:00 89 13 102/61 (75) 100 04/09/19 09:00 91 15 113/63 (80) 100 04/09/19 08:15 124/74 04/09/19 08:00 87 04/09/19 08:00 97.9 87 15 116/69 (85) 100 04/09/19 08:00 Venturi Mask 8.0 Venturi Mask 8.0 04/09/19 08:00 3.0 04/09/19 07:39 102 24 100 Cool Aerosol 10.0 40 97 28 100 04/09/19 07:19 100 Cool Aerosol 10.0 40 04/09/19 07:00 120 28 139/101 (114) 100 04/09/19 06:30 90 15 118/78 (91) 100 04/09/19 06:00 90 16 119/66 (83) 100 04/09/19 05:30 96 19 114/75 (88) 100 04/09/19 05:00 88 16 126/74 (91) 100 04/09/19 04:30 99 21 133/74 (93) 100 04/09/19 04:00 97.2 97 21 128/75 (92) 100 04/09/19 04:00 10.0 40 04/09/19 04:00 Venturi Mask 10.0 Venturi Mask 10.0 04/09/19 03:30 98 21 129/75 (93) 100 04/09/19 03:04 84 04/09/19 03:00 87 17 116/78 (91) 100 04/09/19 02:00 89 16 117/70 (86) 100 04/09/19 01:42 100 Cool Aerosol 10.0 40 04/09/19 01:30 86 17 123/85 (98) 100 04/09/19 01:00 107 21 145/91 (109) 100 04/09/19 00:00 Venturi Mask 10.0 Venturi Mask 10.0 04/09/19 00:00 97.8 103 22 138/86 (103) 100 04/08/19 23:30 91 18 142/84 (103) 100 04/08/19 23:06 111 04/08/19 23:00 99 19 148/108 (121) 100 04/08/19 22:30 87 18 122/70 (87) 100 04/08/19 22:00 109 24 146/84 (104) 100 04/08/19 21:30 88 17 88/66 (73) 100 04/08/19 21:14 89 18 106/75 (85) 100 04/08/19 21:00 110 28 176/111 (132) 100 04/08/19 20:30 91 18 129/82 (98) 100 04/08/19 20:05 100 Cool Aerosol 10.0 40 04/08/19 20:05 87 18 100 Cool Aerosol 10.0 40 99 19 100 04/08/19 20:00 10.0 40 04/08/19 20:00 97.6 102 20 137/85 (102) 100 04/08/19 20:00 Venturi Mask 10.0 Venturi Mask 10.0 04/08/19 19:48 110 04/08/19 19:00 102 19 137/78 (97) 100 Intake and Output 04/08/19 04/09/19 19:00 07:00 Intake Total 1159.96 ml 154.98 ml Output Total 375 ml 275 ml Balance 784.96 ml -120.02 ml IV Total 609.96 ml 154.98 ml Blood Product 500 ml Other 50 ml Output Urine Total 175 ml 275 ml Gastric Drainage Total 200 ml # Bowel Movements 3 Laboratory Tests 04/09/19 04:00: White Blood Count 9.3, Red Blood Count 3.27L, Hemoglobin 9.6#L, Hematocrit 27.0# L, Mean Corpuscular Volume 83, Mean Corpuscular Hemoglobin 29.3, Mean Corpuscular Hemoglobin Concent 35.4, Red Cell Distribution Width 15.1H, Platelet Count 118L, Mean Platelet Volume 5.3L, Neutrophils (%) (Auto) 81.5H, Lymphocytes (%) (Auto) 8.4L, Monocytes (%) (Auto) 5.2, Eosinophils (%) (Auto) 4.7H, Basophils (%) (Auto) 0.3, Sodium Level 148H, Potassium Level 3.4L, Chloride Level 112H, Carbon Dioxide Level 29, Anion Gap 7, Blood Urea Nitrogen 23H, Creatinine 1.5H, Estimat Glomerular Filtration Rate , Glucose Level 88, Calcium Level 11.4H 04/09/19 08:08: Arterial Blood pH 7.329L, Arterial Blood Partial Pressure CO2 52.4H, Arterial Blood Partial Pressure O2 85.7, Arterial Blood HCO3 26.9H, Arterial Blood Oxygen Saturation 95.5, Arterial Blood Base Excess 0.5, Antonio Test Positive 04/09/19 09:41: Vancomycin Level Trough 8.0 Height (Feet): 5 Height (Inches): 7.00 Weight (Pounds): 116 General Appearance: no apparent distress EENT: normal ENT inspection Neck: normal alignment, supple Cardiovascular: normal rate, regular rhythm Respiratory/Chest: rhonchi - bilaterally Abdomen: non tender, soft Edema: no edema noted Arm (L), no edema noted Arm (R), no edema noted Leg (L), no edema noted Leg (R), no edema noted Pedal (L), no edema noted Pedal (R), no edema noted Generalized Carlos White MD Apr 09, 2019 18:19
--- NOTE | 2019-04-09 19:57 | NUR ---
HAND-OFF: Report given to BLANCA Alston. Patient vital signs stable at this time. Endorsed to follow up.
--- NOTE | 2019-04-09 20:00 | NUR ---
NURSE NOTES: Received pt and report from Cecil Milan RN. Patient is awake and AOx3, verbally responsive, in no acute distress. VS stable, on 3L/NC with O2 sat 100%. Afebrile. Current BP:110/69 HR:102. NGT in place, Left nare, running Vital AF at 10ml/hr. Morales noted leakage, no urine in the second ride fare collector, however noted urine on incontinent pad. Noted left subclavian TLC TKO, and right FA 20G saline locked. Bed low, locked and alarm is on. HOB kept elevated 30degree. Call light with in reach. Will continue to monitor. Pt is planned to transfer to [facility], pending bed.
[2019-04-09] MEDS: Dyna-Hex 2% Top Sol 2oz TOPIC SCH (20:25)
--- NOTE | 2019-04-09 20:55 | NUR ---
TRANSFER TO FLOOR: Patient transferred to [facility], 245-2, per Dr Mathews's order. Report given to BLANCA Diaz . Belongings and medications given to on going nurse. Family and or S/O informed of transfer.
[2019-04-09] MEDS ORDERED: Albuterol/Ipratropium 3ml neb HHN PRN (21:00)
--- NOTE | 2019-04-09 21:00 | NUR ---
NURSE NOTES: Pt. received from Gamaliel RN, pt. transferred from ICU- pt. awake in bed A/O x's 3- able to make needs known, no signs or symptoms of acute cardiac or respiratory distress noted, bed in lowest position, call light within easy reach, bed alarm on, side rails up x's3 and safety brakes engaged, HOB elevated, pt. is on panel monitor, NGT to left nare- intact and patent running Vital AF at 10cc- per endorsement this is goal- no residual noted, Morales intact but appears to be leaking- notified DR. Root- he will call back in am- to f/u on Morales, Full body assessment done- pictures taken of blister to lower back and of redness to bilateral heels, RFA 20G IV Intact and patent, Left subclavian TLC- TKO- intact and patent, safety measures continued, will continue with plan of care.
[2019-04-09] MEDS ORDERED: Morphine Sulfate 2mg/ml Inj(IV/IM USE ONLY) IVP PRN (22:00)
--- NOTE | 2019-04-09 23:15 | Progress Note ---
DATE: 04/09/2019 SUBJECTIVE: This is a 73-year-old male patient who had generalized weakness, altered mental status, confusion, decline in cognition below his baseline. That is why his attending physician has requested daily psychiatric consultation. MENTAL STATUS EXAMINATION: This is a 73-year-old male. Appearance is disheveled. Attitude, irritable and agitated. Affect, guarded and restricted. Intellect, poor. Mood, depressed and anxious. Motor activity, psychomotor agitation. Attention span is poor. Orientation x2. Speech is pressured. Thought process, disorganized and illogical. Insight and judgment is poor. DIAGNOSIS: 1. Major depressive disorder, severe, recurrent with psychotic features. 2. Rule out dementia with psychosis. PLAN: Treat this patient with psychotropic medication regimen consisting of Zoloft 25 mg daily and Namenda 5 mg twice a day. A 20 minutes of cognitive behavioral therapy and insight-oriented psychotherapy to help this patient recognize his psychiatric mood with cognitive problems as well as medical problems, so that he has better impulse control and behavior on the unit. Also, 20 minutes of cognitive behavioral therapy to help him identify his automatic negative thoughts help him convert his negative thoughts to more positive thoughts to reduce depression, anxiety, and mood lability. Chart reviewed. Discussed with staff. The patient is seen and assessed at bedside. Cherise Palma M.D. DR: BRENDA JOB#: [id number] CC:
[2019-04-10] VITALS: BP 139/85
[2019-04-10 04:00] VITALS: BP 141/88
[2019-04-10] MEDS: Piperacillin/Tazobactam 3.375 GM in NS 110 ML IVPB SCH ×3 (04:59→15:34)
[2019-04-10 05:29] LABS: BASOPHILS % (AUTO) 0.8 % (0.0-2.0); EOSINOPHILS % (AUTO) 5.6 % (0.0-3.0); HEMATOCRIT 30.6 % (42.0-52.0); HEMOGLOBIN 10.4 G/DL (14.2-18.0); LYMPHOCYTES % (AUTO) 9.4 % (20.0-45.0); MEAN CORPUSCULAR VOLUME 85 FL (80-99); MONOCYTES % (AUTO) 7.3 % (1.0-10.0); PLATELET COUNT 142 K/UL (150-450); RED BLOOD COUNT 3.62 M/UL (4.70-6.10); RED CELL DISTRIBUTION WIDTH 15.8 % (11.6-14.8); WHITE BLOOD COUNT 9.4 K/UL (4.8-10.8)
[2019-04-10 05:39] LABS: ANION GAP 10 mmol/L (5-15); BLOOD UREA NITROGEN 30 mg/dL (7-18); CALCIUM 12.1 MG/DL (8.5-10.1); CARBON DIOXIDE 27 MMOL/L (21-32); CHLORIDE 116 MMOL/L (98-107); CREATININE 1.8 MG/DL (0.55-1.30); POTASSIUM 3.5 MMOL/L (3.5-5.1); SODIUM 153 MMOL/L (136-145)
--- NOTE | 2019-04-10 06:56 | NUR ---
HAND-OFF: Report given to YesicaRn, pt. remains stable and no signs of distress noted- aware to f/u on any abnormal am labs- aware to f/u with DR. Root regarding Morales leaking.
--- NOTE | 2019-04-10 07:10 | NUR ---
NURSE NOTES: Report received from Breezy RIOS.Pt in bed awake alert Dr Root at bedside irrigating pt's Morales cath and changing it to a new one,Morales ,cath draining dark red urine,but no clots noted,pt on 3L NC denies any c/o pain or discomfort,S-Tach on the monitor. NGT feeding vital AF 1.2 at 10 ml/hr no residual and in placed per auscultation,skin warm and dry pt with LT SC TLC and RFA heplockt both sites intact,SR up x2 HOb elevated bed lock in lowest position,will continue with plans of care.
[2019-04-10 08:00] VITALS: BP 152/94
[2019-04-10] MEDS: Pantoprazole Inj IVP SCH (09:46)
[2019-04-10] MEDS: Sertraline 50mg tab ORAL SCH (09:47)
[2019-04-10] MEDS: Memantine 5 MG TAB ORAL SCH ×2 (09:47→18:08)
[2019-04-10] MEDS: Enoxaparin 30mg Inj SUBQ SCH (09:49)
--- NOTE | 2019-04-10 10:15 | General Progress Note ---
Assessment/Plan Problem List: (1) UTI (urinary tract infection) ICD Codes: N39.0 - Urinary tract infection, site not specified SNOMED: 83317393 (2) Weak ICD Codes: R53.1 - Weakness SNOMED: 08311731 (3) Anemia ICD Codes: D64.9 - Anemia, unspecified SNOMED: 225413725 (4) Dehydration ICD Codes: E86.0 - Dehydration SNOMED: 66119105, 17581846 (5) Episode of generalized weakness ICD Codes: R53.1 - Weakness SNOMED: 74818410 (6) Stage III adenocarcinoma of prostate ICD Codes: C61 - Malignant neoplasm of prostate SNOMED: 147214493, 31042353 Status: stable, progressing Assessment/Plan: wean vent pt diet abx iv fluid heme gi eval cbc bmp am Subjective Constitutional: Reports: weakness Allergies: Coded Allergies: No Known Allergies (Unverified , 04/03/19) All Systems: reviewed and negative except above Subjective o2nc ng calm Objective Last 24 Hour Vital Signs Date Time Temp Pulse Resp B/P (MAP) Pulse Ox O2 Delivery O2 Flow Rate FiO2 04/10/19 07:25 100 Nasal Cannula 2.0 28 04/10/19 04:00 97.9 98 20 141/88 (105) 98 04/10/19 04:00 3.0 04/10/19 04:00 Venturi Mask 8.0 Venturi Mask 8.0 04/10/19 03:43 107 04/10/19 00:00 Venturi Mask 8.0 Venturi Mask 8.0 04/10/19 00:00 98.2 105 20 139/85 (103) 98 04/10/19 00:00 3.0 04/09/19 23:35 99 04/09/19 21:00 98.2 107 22 127/77 (94) 98 04/09/19 20:00 105 04/09/19 20:00 98.5 102 15 110/69 (83) 100 04/09/19 20:00 Venturi Mask 8.0 Venturi Mask 8.0 04/09/19 20:00 3.0 04/09/19 19:32 104 17 100 Nasal Cannula 2.0 28 97 15 100 04/09/19 19:12 100 Nasal Cannula 2.0 28 04/09/19 19:00 99 15 124/79 (94) 100 2/6/20 18:00 103 17 128/77 (94) 100 04/09/19 17:00 121 26 156/98 (117) 100 04/09/19 16:17 144/84 04/09/19 16:00 98.2 104 18 132/83 (99) 100 04/09/19 16:00 103 04/09/19 16:00 Venturi Mask 8.0 Venturi Mask 8.0 04/09/19 16:00 3.0 04/09/19 15:00 92 13 118/72 (87) 100 04/09/19 14:00 92 14 132/76 (94) 100 04/09/19 13:43 100 22 100 Nasal Cannula 3.0 32 103 22 100 04/09/19 13:00 106 21 155/88 (110) 100 04/09/19 12:42 99 Cool Aerosol 10.0 40 04/09/19 12:00 Venturi Mask 8.0 Venturi Mask 8.0 04/09/19 12:00 3.0 04/09/19 12:00 97.9 91 16 130/77 (94) 100 04/09/19 12:00 84 04/09/19 11:00 100 20 127/71 (89) 100 Intake and Output 04/09/19 04/10/19 19:00 07:00 Intake Total 110.0 ml 290.0 ml Output Total 0 ml 0 ml Balance 110.0 ml 290.0 ml Free Water 50 ml IV Total 110.0 ml 110.0 ml Tube Feeding 130 ml Output Urine Total 0 ml 0 ml # Voids 3 3 Laboratory Tests 04/10/19 04:35: White Blood Count 9.4, Red Blood Count 3.62L, Hemoglobin 10.4L, Hematocrit 30.6L , Mean Corpuscular Volume 85, Mean Corpuscular Hemoglobin 28.7, Mean Corpuscular Hemoglobin Concent 34.0, Red Cell Distribution Width 15.8H, Platelet Count 142L, Mean Platelet Volume 5.6L, Neutrophils (%) (Auto) 77.0H, Lymphocytes (%) (Auto) 9.4L, Monocytes (%) (Auto) 7.3, Eosinophils (%) (Auto) 5.6H, Basophils (%) (Auto) 0.8, Sodium Level 153H, Potassium Level 3.5, Chloride Level 116H, Carbon Dioxide Level 27, Anion Gap 10, Blood Urea Nitrogen 30H, Creatinine 1.8H, Estimat Glomerular Filtration Rate , Glucose Level 95, Calcium Level 12.1H Height (Feet): 5 Height (Inches): 7.00 Weight (Pounds): 116 General Appearance: lethargic EENT: normal ENT inspection Neck: normal alignment Cardiovascular: normal peripheral pulses, normal rate, regular rhythm Respiratory/Chest: chest wall non-tender, lungs clear, normal breath sounds Abdomen: normal bowel sounds, non tender, soft Extremities: normal inspection Edema: no edema noted Arm (L), no edema noted Arm (R), no edema noted Leg (L), no edema noted Leg (R), no edema noted Pedal (L), no edema noted Pedal (R), no edema noted Generalized Neurologic: motor weakness Skin: normal pigmentation, warm/dry Sawyer Toussaint DO Apr 10, 2019 10:15
--- NOTE | 2019-04-10 10:38 | NUR ---
RD ASSESSMENT & RECOMMENDATIONS SEE CARE ACTIVITY FOR COMPLETE ASSESSMENT DAILY ESTIMATED NEEDS: Needs based on Underweight, cancer, pulmonary 54.7kg 30-35 kcals/kg 0244-3428 total kcals 1.2-2 g protein/kg 65-109 g total protein 25-30 mL/kg 7759-9800 total fluid mLs NUTRITION DIAGNOSIS: Underweight r/t cancer? as evidenced by pt w/ prostate cancer, elevated antigen and calcium levels, w/ generalized moderate wasting, previously poor po intake, pt is 81% of [place] body Weight, currently s/p code blue, now extubated, NGT feeds. CURRENT TF:Vital @10ml/hr ENTERAL NUTRITION RECOMMENDATIONS: Vital AF 1.2 @ 60ml/hr x 24 hrs to provide 1440ml, 1728kcal, 108g prot, 1168ml free water * When medically appropriate -> advance 10ml q 4-6 hrs as tolerated to goal rate -> HOB over 30 degrees/ water flush per MD ADDITIONAL RECOMMENDATIONS: 1) Recalibrated bed wts for daily wts 2) Monitor NPO status, ability to feed 3) Monitor lytes, replete as needed 4) Consider NISS w/ TF 5) Add KATIE BID for wounds + Vit C 250mg daily 6) [employer] eval when appropriate for oral diet
--- NOTE | 2019-04-10 10:43 | General Progress Note ---
Assessment/Plan Status: stable, progressing Assessment/Plan: Assessment/Plan Problems: (1) Coffee ground emesis ICD Codes: K92.0 - Hematemesis SNOMED: 17973681 (2) Anemia ICD Codes: D64.9 - Anemia, unspecified SNOMED: 671165887 Status: unchanged Assessment/Plan This is a 73-year-old male, status post Code Blue with coffee-grounds emesis, tachycardia, anemia. IV hydration for blood pressure stability. Protonix 40 mg q.12. F/U OB stool>>>neg>>> will hold GI procedures for now prn transfusions maintain above 7 speech eval will follow Subjective ROS Limited/Unobtainable: No Allergies: Coded Allergies: No Known Allergies (Unverified , 04/03/19) Objective Last 24 Hour Vital Signs Date Time Temp Pulse Resp B/P (MAP) Pulse Ox O2 Delivery O2 Flow Rate FiO2 04/10/19 08:00 97.5 111 20 152/94 (113) 91 04/10/19 07:25 100 Nasal Cannula 2.0 28 04/10/19 04:00 97.9 98 20 141/88 (105) 98 04/10/19 04:00 3.0 04/10/19 04:00 Venturi Mask 8.0 Venturi Mask 8.0 04/10/19 03:43 107 04/10/19 00:00 Venturi Mask 8.0 Venturi Mask 8.0 04/10/19 00:00 98.2 105 20 139/85 (103) 98 04/10/19 00:00 3.0 04/09/19 23:35 99 04/09/19 21:00 98.2 107 22 127/77 (94) 98 04/09/19 20:00 105 04/09/19 20:00 98.5 102 15 110/69 (83) 100 04/09/19 20:00 Venturi Mask 8.0 Venturi Mask 8.0 04/09/19 20:00 3.0 04/09/19 19:32 104 17 100 Nasal Cannula 2.0 28 97 15 100 04/09/19 19:12 100 Nasal Cannula 2.0 28 04/09/19 19:00 99 15 124/79 (94) 100 04/09/19 18:00 103 17 128/77 (94) 100 04/09/19 17:00 121 26 156/98 (117) 100 04/09/19 16:17 144/84 04/09/19 16:00 98.2 104 18 132/83 (99) 100 04/09/19 16:00 103 04/09/19 16:00 Venturi Mask 8.0 Venturi Mask 8.0 04/09/19 16:00 3.0 04/09/19 15:00 92 13 118/72 (87) 100 04/09/19 14:00 92 14 132/76 (94) 100 04/09/19 13:43 100 22 100 Nasal Cannula 3.0 32 103 22 100 04/09/19 13:00 106 21 155/88 (110) 100 04/09/19 12:42 99 Cool Aerosol 10.0 40 04/09/19 12:00 Venturi Mask 8.0 Venturi Mask 8.0 04/09/19 12:00 3.0 04/09/19 12:00 97.9 91 16 130/77 (94) 100 04/09/19 12:00 84 04/09/19 11:00 100 20 127/71 (89) 100 Intake and Output 04/09/19 04/10/19 19:00 07:00 Intake Total 110.0 ml 290.0 ml Output Total 0 ml 0 ml Balance 110.0 ml 290.0 ml Free Water 50 ml IV Total 110.0 ml 110.0 ml Tube Feeding 130 ml Output Urine Total 0 ml 0 ml # Voids 3 3 Laboratory Tests 04/10/19 04:35: White Blood Count 9.4, Red Blood Count 3.62L, Hemoglobin 10.4L, Hematocrit 30.6L , Mean Corpuscular Volume 85, Mean Corpuscular Hemoglobin 28.7, Mean Corpuscular Hemoglobin Concent 34.0, Red Cell Distribution Width 15.8H, Platelet Count 142L, Mean Platelet Volume 5.6L, Neutrophils (%) (Auto) 77.0H, Lymphocytes (%) (Auto) 9.4L, Monocytes (%) (Auto) 7.3, Eosinophils (%) (Auto) 5.6H, Basophils (%) (Auto) 0.8, Sodium Level 153H, Potassium Level 3.5, Chloride Level 116H, Carbon Dioxide Level 27, Anion Gap 10, Blood Urea Nitrogen 30H, Creatinine 1.8H, Estimat Glomerular Filtration Rate , Glucose Level 95, Calcium Level 12.1H Height (Feet): 5 Height (Inches): 7.00 Weight (Pounds): 116 General Appearance: no apparent distress EENT: normal ENT inspection Neck: supple Cardiovascular: normal rate Respiratory/Chest: decreased breath sounds Abdomen: normal bowel sounds, non tender, soft Extremities: non-tender Tyrone Lamb MD Apr 10, 2019 10:43
[2019-04-10] MEDS ORDERED: Tubing Blood Filter IV ONE (11:05)
[2019-04-10] MEDS ORDERED: NS 275ml ONE ×2 (11:05→18:27)
--- NOTE | 2019-04-10 11:41 | Cardiac Electrophysiology PN ---
Assessment/Plan Assessment/Plan 1. Status post bradycardic arrest with asystole. No evidence of ventricular tachycardia or ventricular fibrillation. Could be secondary to respiratory arrest. Clonidine was discontinued. EF 65%. No further juan antonio episodes. All 3 troponins were less than 0.1 2. S/P Respiratory failure, extubated 04/08/19 3. History of stage III prostate cancer, followed by Dr. Monroy and Dr Root. Morales was changed. Follows up usually at [facility] 4. Hypotension. Off Levophed on iv Abx. On prn iv hydralazine 5. Hypercalcemia due to prostate cancer. 6. Hypernatremia. On IV fluids. 7. Anemia, s/p PRBC 04/08/19 DW RN and Amy (Son's at [phone]) Subjective Subjective Transferred out of ICU . S/P PRBC. In SR. Morales was changed. Still NGT feeding. Going for CT abdomen today ordered by Dr Root Objective Last 24 Hour Vital Signs Date Time Temp Pulse Resp B/P (MAP) Pulse Ox O2 Delivery O2 Flow Rate FiO2 04/10/19 08:00 97.5 111 20 152/94 (113) 91 04/10/19 07:25 100 Nasal Cannula 2.0 28 04/10/19 04:00 97.9 98 20 141/88 (105) 98 04/10/19 04:00 3.0 04/10/19 04:00 Venturi Mask 8.0 Venturi Mask 8.0 04/10/19 03:43 107 04/10/19 00:00 Venturi Mask 8.0 Venturi Mask 8.0 04/10/19 00:00 98.2 105 20 139/85 (103) 98 04/10/19 00:00 3.0 04/09/19 23:35 99 04/09/19 21:00 98.2 107 22 127/77 (94) 98 04/09/19 20:00 105 04/09/19 20:00 98.5 102 15 110/69 (83) 100 04/09/19 20:00 Venturi Mask 8.0 Venturi Mask 8.0 04/09/19 20:00 3.0 04/09/19 19:32 104 17 100 Nasal Cannula 2.0 28 97 15 100 04/09/19 19:12 100 Nasal Cannula 2.0 28 04/09/19 19:00 99 15 124/79 (94) 100 04/09/19 18:00 103 17 128/77 (94) 100 04/09/19 17:00 121 26 156/98 (117) 100 04/09/19 16:17 144/84 04/09/19 16:00 98.2 104 18 132/83 (99) 100 04/09/19 16:00 103 04/09/19 16:00 Venturi Mask 8.0 Venturi Mask 8.0 04/09/19 16:00 3.0 04/09/19 15:00 92 13 118/72 (87) 100 04/09/19 14:00 92 14 132/76 (94) 100 04/09/19 13:43 100 22 100 Nasal Cannula 3.0 32 103 22 100 04/09/19 13:00 106 21 155/88 (110) 100 04/09/19 12:42 99 Cool Aerosol 10.0 40 04/09/19 12:00 Venturi Mask 8.0 Venturi Mask 8.0 04/09/19 12:00 3.0 04/09/19 12:00 97.9 91 16 130/77 (94) 100 04/09/19 12:00 84 Intake and Output 04/09/19 04/10/19 19:00 07:00 Intake Total 110.0 ml 290.0 ml Output Total 0 ml 0 ml Balance 110.0 ml 290.0 ml Free Water 50 ml IV Total 110.0 ml 110.0 ml Tube Feeding 130 ml Output Urine Total 0 ml 0 ml # Voids 3 3 Laboratory Tests Test 04/10/19 04:35 White Blood Count 9.4 K/UL (4.8-10.8) Red Blood Count 3.62 M/UL (4.70-6.10) L Hemoglobin 10.4 G/DL (14.2-18.0) L Hematocrit 30.6 % (42.0-52.0) L Mean Corpuscular Volume 85 FL (80-99) Mean Corpuscular Hemoglobin 28.7 PG (27.0-31.0) Mean Corpuscular Hemoglobin Concent 34.0 G/DL (32.0-36.0) Red Cell Distribution Width 15.8 % (11.6-14.8) H Platelet Count 142 K/UL (150-450) L Mean Platelet Volume 5.6 FL (6.5-10.1) L Neutrophils (%) (Auto) 77.0 % (45.0-75.0) H Lymphocytes (%) (Auto) 9.4 % (20.0-45.0) L Monocytes (%) (Auto) 7.3 % (1.0-10.0) Eosinophils (%) (Auto) 5.6 % (0.0-3.0) H Basophils (%) (Auto) 0.8 % (0.0-2.0) Sodium Level 153 MMOL/L (136-145) H Potassium Level 3.5 MMOL/L (3.5-5.1) Chloride Level 116 MMOL/L (98-107) H Carbon Dioxide Level 27 MMOL/L (21-32) Anion Gap 10 mmol/L (5-15) Blood Urea Nitrogen 30 mg/dL (7-18) H Creatinine 1.8 MG/DL (0.55-1.30) H Estimat Glomerular Filtration Rate mL/min (>60) Glucose Level 95 MG/DL (74-106) Calcium Level 12.1 MG/DL (8.5-10.1) H Objective HEENT: No JVD with NG tube in LUNGS: Coarse rhonchi. CARDIOVASCULAR: Regular S1 and S2 and tachycardic. ABDOMEN: Soft and nondistended. EXTREMITIES: No pitting edema. Nain Cortez MD Apr 10, 2019 11:41
[2019-04-10 12:00] VITALS: BP 146/89
--- NOTE | 2019-04-10 12:06 | Nephrology Progress Note ---
Assessment/Plan Status: stable, progressing Assessment/Plan: A/P 1. LETA. secondary to dehydration from hypercalcemia/ischemic ATN post arrest - Cr 1.8. Start free water 2. Prostate cancer with tremendously elevated PSA 800 Defer to Hematology/Oncology. 3. Hypokalemia. corrected 4. Sepsis and UTI per Infectious Disease. 5. Hypernatremia- add free water 6. S/P Cardiac Arrest- extubated 7- Hypercalcemia of malignancy- Restart Calcitonin Subjective Date patient seen: Apr 10, 2019 Time patient seen: 12:05 ROS Limited/Unobtainable: No Allergies: Coded Allergies: No Known Allergies (Unverified , 04/03/19) Subjective Patient with NG Objective Last 24 Hour Vital Signs Date Time Temp Pulse Resp B/P (MAP) Pulse Ox O2 Delivery O2 Flow Rate FiO2 04/10/19 08:00 97.5 111 20 152/94 (113) 91 04/10/19 07:25 100 Nasal Cannula 2.0 28 04/10/19 04:00 97.9 98 20 141/88 (105) 98 04/10/19 04:00 3.0 04/10/19 04:00 Venturi Mask 8.0 Venturi Mask 8.0 04/10/19 03:43 107 04/10/19 00:00 Venturi Mask 8.0 Venturi Mask 8.0 04/10/19 00:00 98.2 105 20 139/85 (103) 98 04/10/19 00:00 3.0 04/09/19 23:35 99 04/09/19 21:00 98.2 107 22 127/77 (94) 98 04/09/19 20:00 105 04/09/19 20:00 98.5 102 15 110/69 (83) 100 04/09/19 20:00 Venturi Mask 8.0 Venturi Mask 8.0 04/09/19 20:00 3.0 04/09/19 19:32 104 17 100 Nasal Cannula 2.0 28 97 15 100 04/09/19 19:12 100 Nasal Cannula 2.0 28 04/09/19 19:00 99 15 124/79 (94) 100 04/09/19 18:00 103 17 128/77 (94) 100 04/09/19 17:00 121 26 156/98 (117) 100 04/09/19 16:17 144/84 04/09/19 16:00 98.2 104 18 132/83 (99) 100 04/09/19 16:00 103 04/09/19 16:00 Venturi Mask 8.0 Venturi Mask 8.0 04/09/19 16:00 3.0 04/09/19 15:00 92 13 118/72 (87) 100 04/09/19 14:00 92 14 132/76 (94) 100 04/09/19 13:43 100 22 100 Nasal Cannula 3.0 32 103 22 100 04/09/19 13:00 106 21 155/88 (110) 100 04/09/19 12:42 99 Cool Aerosol 10.0 40 Intake and Output 04/09/19 04/10/19 18:59 06:59 Intake Total 110.0 ml 307.5 ml Output Total 0 ml 0 ml Balance 110.0 ml 307.5 ml Free Water 50 ml IV Total 110.0 ml 137.5 ml Tube Feeding 120 ml Output Urine Total 0 ml 0 ml # Voids 3 3 Laboratory Tests 04/10/19 04:35: White Blood Count 9.4, Red Blood Count 3.62L, Hemoglobin 10.4L, Hematocrit 30.6L , Mean Corpuscular Volume 85, Mean Corpuscular Hemoglobin 28.7, Mean Corpuscular Hemoglobin Concent 34.0, Red Cell Distribution Width 15.8H, Platelet Count 142L, Mean Platelet Volume 5.6L, Neutrophils (%) (Auto) 77.0H, Lymphocytes (%) (Auto) 9.4L, Monocytes (%) (Auto) 7.3, Eosinophils (%) (Auto) 5.6H, Basophils (%) (Auto) 0.8, Sodium Level 153H, Potassium Level 3.5, Chloride Level 116H, Carbon Dioxide Level 27, Anion Gap 10, Blood Urea Nitrogen 30H, Creatinine 1.8H, Estimat Glomerular Filtration Rate , Glucose Level 95, Calcium Level 12.1H Height (Feet): 5 Height (Inches): 7.00 Weight (Pounds): 116 General Appearance: no apparent distress, alert EENT: normal ENT inspection Neck: normal alignment, supple Cardiovascular: normal rate, regular rhythm Respiratory/Chest: rhonchi - bilaterally Abdomen: non tender, soft Edema: no edema noted Arm (L), no edema noted Arm (R), no edema noted Leg (L), no edema noted Leg (R), no edema noted Pedal (L), no edema noted Pedal (R), no edema noted Generalized Carlos White MD Apr 10, 2019 12:06
--- NOTE | 2019-04-10 12:12 | Surgery Progress Note ---
Surgery Progress Note Subjective Procedure Performed right subclavian central venous catheter insertion Symptoms: improved Additional Comments downgraded comfortable improving responsive labs reviewed Objective Last 24 Hour Vital Signs Date Time Temp Pulse Resp B/P (MAP) Pulse Ox O2 Delivery O2 Flow Rate FiO2 04/10/19 12:00 97.6 110 20 146/89 (108) 97 04/10/19 08:00 97.5 111 20 152/94 (113) 91 04/10/19 07:25 100 Nasal Cannula 2.0 28 04/10/19 04:00 97.9 98 20 141/88 (105) 98 04/10/19 04:00 3.0 04/10/19 04:00 Venturi Mask 8.0 Venturi Mask 8.0 04/10/19 03:43 107 04/10/19 00:00 Venturi Mask 8.0 Venturi Mask 8.0 04/10/19 00:00 98.2 105 20 139/85 (103) 98 04/10/19 00:00 3.0 04/09/19 23:35 99 04/09/19 21:00 98.2 107 22 127/77 (94) 98 04/09/19 20:00 105 04/09/19 20:00 98.5 102 15 110/69 (83) 100 04/09/19 20:00 Venturi Mask 8.0 Venturi Mask 8.0 04/09/19 20:00 3.0 04/09/19 19:32 104 17 100 Nasal Cannula 2.0 28 97 15 100 04/09/19 19:12 100 Nasal Cannula 2.0 28 04/09/19 19:00 99 15 124/79 (94) 100 04/09/19 18:00 103 17 128/77 (94) 100 04/09/19 17:00 121 26 156/98 (117) 100 04/09/19 16:17 144/84 04/09/19 16:00 98.2 104 18 132/83 (99) 100 04/09/19 16:00 103 04/09/19 16:00 Venturi Mask 8.0 Venturi Mask 8.0 04/09/19 16:00 3.0 04/09/19 15:00 92 13 118/72 (87) 100 04/09/19 14:00 92 14 132/76 (94) 100 04/09/19 13:43 100 22 100 Nasal Cannula 3.0 32 103 22 100 04/09/19 13:00 106 21 155/88 (110) 100 04/09/19 12:42 99 Cool Aerosol 10.0 40 I&O Intake and Output 04/09/19 04/10/19 19:00 07:00 Intake Total 110.0 ml 290.0 ml Output Total 0 ml 0 ml Balance 110.0 ml 290.0 ml Free Water 50 ml IV Total 110.0 ml 110.0 ml Tube Feeding 130 ml Output Urine Total 0 ml 0 ml # Voids 3 3 Dressing: other Wound: other Drains: other Cardiovascular: RSR Respiratory: decreased breath sounds Abdomen: soft, present bowel sounds Extremities: no cyanosis Laboratory Tests Test 04/10/19 04:35 White Blood Count 9.4 K/UL (4.8-10.8) Red Blood Count 3.62 M/UL (4.70-6.10) L Hemoglobin 10.4 G/DL (14.2-18.0) L Hematocrit 30.6 % (42.0-52.0) L Mean Corpuscular Volume 85 FL (80-99) Mean Corpuscular Hemoglobin 28.7 PG (27.0-31.0) Mean Corpuscular Hemoglobin Concent 34.0 G/DL (32.0-36.0) Red Cell Distribution Width 15.8 % (11.6-14.8) H Platelet Count 142 K/UL (150-450) L Mean Platelet Volume 5.6 FL (6.5-10.1) L Neutrophils (%) (Auto) 77.0 % (45.0-75.0) H Lymphocytes (%) (Auto) 9.4 % (20.0-45.0) L Monocytes (%) (Auto) 7.3 % (1.0-10.0) Eosinophils (%) (Auto) 5.6 % (0.0-3.0) H Basophils (%) (Auto) 0.8 % (0.0-2.0) Sodium Level 153 MMOL/L (136-145) H Potassium Level 3.5 MMOL/L (3.5-5.1) Chloride Level 116 MMOL/L (98-107) H Carbon Dioxide Level 27 MMOL/L (21-32) Anion Gap 10 mmol/L (5-15) Blood Urea Nitrogen 30 mg/dL (7-18) H Creatinine 1.8 MG/DL (0.55-1.30) H Estimat Glomerular Filtration Rate mL/min (>60) Glucose Level 95 MG/DL (74-106) Calcium Level 12.1 MG/DL (8.5-10.1) H Plan Problems: (1) Cardiac arrest Assessment & Plan: extubated on face mask oxygenating well hypotensive off pressors central line placed left subclavian iv fluids abx as per ID trend labs abg okay start tube feeds via ng tube trial cont current treatment will follow with fermin thank you (2) Stage III adenocarcinoma of prostate Assessment & Plan: patient with state 3 prostate cancer pending treatment at [facility] unlikely related to acute cardiac arrest this am abd exam with mild distention pending KUB no acute surgical intervention planned onc input thank you will follow with Jay Conrad Apr 10, 2019 12:12
--- NOTE | 2019-04-10 12:50 | Pulmonology Progress Note ---
Assessment/Plan Assessment/Plan IMPRESSION: 1. Status post asystolic cardiac arrest. 2. Respiratory failure, now extubated 3. Altered mental status. Improved. 4. Hypernatremia. Corrected. 5. Hypokalemia . Corrected. 6. History of COPD. 7. Prostate CA. DISCUSSION: 1. Discussed with bedside nursing. 2. Discussed also with the patient's daughter, Amy, 3. Discussed with Dr. Sawyer Toussaint. 4. On nasal o2 5. Monitor in [place] 6. Swallow eval Ganesh Mathews M.D. Subjective Interval Events: Looking better; wants to eat Constitutional: Reports: no symptoms HEENT: Repors: no symptoms Respiratory: Reports: no symptoms Cardiovascular: Reports: no symptoms Gastrointestinal/Abdominal: Reports: no symptoms Genitourinary: Reports: no symptoms Allergies: Coded Allergies: No Known Allergies (Unverified , 04/03/19) Objective Last 24 Hour Vital Signs Date Time Temp Pulse Resp B/P (MAP) Pulse Ox O2 Delivery O2 Flow Rate FiO2 04/10/19 12:00 Nasal Cannula 3.0 Nasal Cannula 3.0 04/10/19 12:00 97.6 110 20 146/89 (108) 97 04/10/19 08:00 Nasal Cannula 3.0 Nasal Cannula 3.0 04/10/19 08:00 106 04/10/19 08:00 97.5 111 20 152/94 (113) 91 04/10/19 07:25 100 Nasal Cannula 2.0 28 04/10/19 04:00 97.9 98 20 141/88 (105) 98 04/10/19 04:00 3.0 04/10/19 04:00 Venturi Mask 8.0 Venturi Mask 8.0 04/10/19 03:43 107 04/10/19 00:00 Venturi Mask 8.0 Venturi Mask 8.0 04/10/19 00:00 98.2 105 20 139/85 (103) 98 04/10/19 00:00 3.0 04/09/19 23:35 99 04/09/19 21:00 98.2 107 22 127/77 (94) 98 04/09/19 20:00 105 04/09/19 20:00 98.5 102 15 110/69 (83) 100 04/09/19 20:00 Venturi Mask 8.0 Venturi Mask 8.0 04/09/19 20:00 3.0 04/09/19 19:32 104 17 100 Nasal Cannula 2.0 28 97 15 100 04/09/19 19:12 100 Nasal Cannula 2.0 28 04/09/19 19:00 99 15 124/79 (94) 100 04/09/19 18:00 103 17 128/77 (94) 100 04/09/19 17:00 121 26 156/98 (117) 100 04/09/19 16:17 144/84 04/09/19 16:00 98.2 104 18 132/83 (99) 100 04/09/19 16:00 103 04/09/19 16:00 Venturi Mask 8.0 Venturi Mask 8.0 04/09/19 16:00 3.0 04/09/19 15:00 92 13 118/72 (87) 100 04/09/19 14:00 92 14 132/76 (94) 100 04/09/19 13:43 100 22 100 Nasal Cannula 3.0 32 103 22 100 04/09/19 13:00 106 21 155/88 (110) 100 Intake and Output 04/09/19 04/10/19 19:00 07:00 Intake Total 110.0 ml 290.0 ml Output Total 0 ml 0 ml Balance 110.0 ml 290.0 ml Free Water 50 ml IV Total 110.0 ml 110.0 ml Tube Feeding 130 ml Output Urine Total 0 ml 0 ml # Voids 3 3 General Appearance: no acute distress HEENT: normocephalic Respiratory/Chest: chest wall non-tender, lungs clear Cardiovascular: normal peripheral pulses, normal rate Abdomen: normal bowel sounds Laboratory Tests 04/10/19 04:35: White Blood Count 9.4, Red Blood Count 3.62L, Hemoglobin 10.4L, Hematocrit 30.6L , Mean Corpuscular Volume 85, Mean Corpuscular Hemoglobin 28.7, Mean Corpuscular Hemoglobin Concent 34.0, Red Cell Distribution Width 15.8H, Platelet Count 142L, Mean Platelet Volume 5.6L, Neutrophils (%) (Auto) 77.0H, Lymphocytes (%) (Auto) 9.4L, Monocytes (%) (Auto) 7.3, Eosinophils (%) (Auto) 5.6H, Basophils (%) (Auto) 0.8, Sodium Level 153H, Potassium Level 3.5, Chloride Level 116H, Carbon Dioxide Level 27, Anion Gap 10, Blood Urea Nitrogen 30H, Creatinine 1.8H, Estimat Glomerular Filtration Rate , Glucose Level 95, Calcium Level 12.1H Current Medications Medications (Trade) Dose Ordered Sig/[place] Route PRN Reason Start Time Stop Time Status Last Admin Dose Admin Albuterol/ Ipratropium (Albuterol/ Ipratropium) 3 ml Q6H PRN HHN Shortness of Breath 04/09/19 21:00 04/14/19 20:59 Albuterol/ Ipratropium (Albuterol/ Ipratropium) 3 ml Q6HRT HHN 04/10/19 13:00 04/15/19 12:59 Barium Sulfate (Readi-Cat 2) 450 ml NOW PRN ORAL Radiology Procedure 04/10/19 08:30 04/12/19 08:21 Calcitonin [place] (Miacalcin) 1 sprays DAILY NASAL 04/10/19 13:30 05/10/19 13:29 Chlorhexidine Gluconate (Martha-Hex 2%) 1 applic DAILY@2000 TOPIC 04/10/19 20:00 05/06/19 19:59 Enoxaparin Sodium (Lovenox) 30 mg DAILY SUBQ 04/10/19 09:00 05/04/19 08:59 04/10/19 09:49 Hydralazine HCl (Apresoline) 10 mg Q12HR NG 04/10/19 18:00 05/10/19 17:59 Hydralazine HCl (Apresoline) 10 mg Q4H PRN IV SBP > 170mmHg 04/09/19 21:00 05/08/19 20:59 Memantine (Namenda) 5 mg BID ORAL 04/10/19 09:00 05/04/19 17:59 04/10/19 09:47 Morphine Sulfate (Morphine Sulfate) 2 mg Q4H PRN IVP For Pain 04/09/19 22:00 04/16/19 21:59 Pantoprazole (Protonix) 40 mg DAILY IVP 04/10/19 09:00 05/08/19 08:59 04/10/19 09:46 Piperacillin Sod/ Tazobactam Sod 3.375 gm/Sodium Chloride 110 ml @ 27.5 mls/hr EVERY 8 HOURS IVPB 04/09/19 22:00 04/12/19 09:59 04/10/19 05:00 Sertraline HCl (Zoloft) 25 mg DAILY ORAL 04/10/19 09:00 05/05/19 08:59 04/10/19 09:47 Ganesh Mathews MD Apr 10, 2019 12:50
--- NOTE | 2019-04-10 14:00 | NUR ---
NURSE NOTES: Pt brought down for CT scan of abdomen with contrast,NGT feeding on hold since 0900. 1420, pt back to unit awake,alert in no distress accompanied by a transporter and RN.
--- NOTE | 2019-04-10 14:11 | NUR ---
NURSE NOTES:WOUND CARE FOLLOW-UP NOTES:Non-Blanching erythema Sacrum and buttocks with surrounding darker skin tone without induration.(L)3.5cm x (W)3cm. Partial thickness pressure injury noted to Sacrococcygeal area(L)0.5cm x (W)1cm.Base of wound is beefy red with macerated borders. No odor or exudate noted. Serous filled Blister noted to thoracic spine (L)1.5cm x (W)1cm. R and L heels are blanchable,dry with thick callused skin. No new skin concerns noted. Tx.Plan: Apply Cavilon Skin Barrier to Blister spine. Cover with Optifoam drsg. Change every 7 days and prn. Apply Moisture Barrier paste to buttocks. Ciover with Optifoam drsg. Change every 3 days and prn. Apply Cavilon Skin Barrier to both heels. Cover each heel with Optifoam drsg. Change every 7 days and prn. APM/PREETI Mattress overlay. Reposition at least every 2hours or as tolerated. Off-load heels with pillow.
--- NOTE | 2019-04-10 15:00 | Progress Note ---
DATE: 04/10/2019 SUBJECTIVE: This is a 73-year-old male patient who was admitted to the hospital at [facility]. He has generalized weakness, altered mental status, confusion, decline in cognition below his baseline that is why his attending physician has requested daily psychiatric consultation. MENTAL STATUS EXAMINATION: This is a 73-year-old male. Appearance is disheveled. Attitude, irritable and agitated. Affect, guarded and restricted. Intellect, poor. Mood, depressed and anxious. Motor activity, psychomotor agitation. Insight and judgment is poor. Orientation x2. Speech is low volume and slurred. Thought process, disorganized and illogical. Insight and judgment is poor. DIAGNOSIS: Major depressive disorder, mild, recurrent with psychotic features, rule out dementia with psychosis. PLAN: My plan for this patient is to treat him with a medication regimen of Zoloft 25 mg daily, Namenda 5 mg twice a day. A 20 minutes of cognitive behavioral therapy to help identify his automatic negative thoughts and help convert negative thoughts to more positive thoughts to reduce depression, anxiety, mood lability. Chart reviewed. Discussed with staff. Seen and assessed at bedside. Cherise Palma M.D. DR: Alli JOB#: [id number] CC:
--- NOTE | 2019-04-10 15:03 | NUR ---
[facility] SI: GENERALIZED WEAKNESS,DEHYDRATION S/P CODE BLUE T. 97.5 HR 111 RR 20 B/P 152/94 3L NC O2 SAT @ 98% NA 153 BUN 30 CR 1.8 IS: ZOSYN IV SWALLOW EVAL STEP DOWN STATUS
--- NOTE | 2019-04-10 15:28 | Diagnostic Imaging Report ---
INDICATION: Abdominal pain TECHNIQUE: Continuous helical transaxial imaging of the abdomen and pelvis was obtained from the lung bases to the pubic symphysis. No intravenous contrast was administered. Coronal 2-D reformats were also obtained. Automatic Exposure Control was utilized. Total Dose length Product (DLP): 852.[address] Dose Index Volume (CTDIvol): 14.5 mGy Comparison: none FINDINGS: Lungs: Trace right pleural effusion and a small left pleural effusion demonstrated. Extensive artifact limiting evaluation. Posterior basal atelectasis noted. Nasogastric tube is present and appears to be in good position.. Liver: Multiple hypodensities are demonstrated in the liver not well evaluated on this study done without IV contrast. There is a slightly liver surface deforming 1.8 cm mass in the left lobe. There is another hypodensity 2.5 cm seen centrally. Another 4.5 cm mass noted in the right lobe. Based on the images obtained the findings are suspicious for metastatic neoplasm. Further evaluation is recommended. Gallbladder/biliary system: No gallstones are identified. There is no evidence of intrahepatic or extrahepatic biliary ductal dilatation. Spleen: Unremarkable Pancreas: The pancreas is unremarkable. However just posterior to the body/head junction there is suggestion of a 3 cm mass or adenopathy. There are other nodes present within the pericaval and periaortic regions and peripancreatic region. This is suspicious for metastatic neoplasm. Kidneys/Bladder: There is bilateral hydroureteronephrosis. Only the proximal part of the ureters are seen. More distally the ureters are poorly visualized. There is suggestion of diffuse thickening of the wall the urinary bladder. There is a suggestion also of adenopathy within the pelvis. This is very poorly evaluated on the current study. There are metallic foci posterior to the bladder within what appears to be the area of the prostate gland. These are likely radioactive seed implants for previous prostate CA radiation treatment.. Adrenal glands: Unremarkable Bowel: Bowel gas pattern appears nonobstructive. There is relatively good in opacification of small bowel which does not appear dilated. Aorta/IVC: Mild mural calcium noted within the aorta and iliac arteries. Peritoneum: There is no significant ascites.. In the right inguinal canal there is a ovoid focus of soft tissue or fluid attenuation. This could be the right testis which is nondistended or could be some fluid or lymph node. Either way, this likely represents a small inguinal hernia. Bones: Mixed lytic and sclerotic lesions demonstrated throughout the axial skeleton consistent with metastatic neoplasm. There is extensive disease present involving portions of the spine and pelvis and both proximal femoral regions. IMPRESSION: Evidence of advanced metastatic neoplasm likely secondary to prostate carcinoma. Extensive retroperitoneal and pelvic lymphadenopathy complicated by presence of bilateral hydroureteronephrosis. Extensive metastatic disease involving the bones also noted. Very limited study due to the nonadministration of IV contrast material and artifacts associated with motion. Small left pleural effusion. Right trace right pleural effusion. Morales catheter and nasogastric tubes in good position. Status post seed implant radiation therapy to the prostate gland. Right inguinal hernia containing a small amount of fluid. Alternatively this could represent part of the testis. Anasarca. Other incidental findings as above Note: Evaluation of solid organs is limited on non contrast imaging. The CT scanner at [facility] is accredited by the [employer] and the scans are performed using dose optimization techniques as appropriate to a performed exam including Automatic Exposure control.
[2019-04-10 16:00] VITALS: BP 120/82
--- NOTE | 2019-04-10 16:00 | Consultation ---
DATE OF CONSULTATION: 04/10/2019 CONSULTING PHYSICIAN: Raz Root M.D. REFERRING PHYSICIAN: Sawyer Toussaint D.O. REASON FOR CONSULTATION: Evaluation of multi-urologic issues. HISTORY OF PRESENT ILLNESS: This is a 73-year-old gentleman. He was admitted to the hospital because of weakness. He was noted to have UTI. Apparently, he has a history of advanced prostate cancer. The patient himself is a poor historian. Most of the history was obtained from the chart. He apparently has had radiation for his prostate cancer, which was reported to be Radha 5 + 5, has very high grade. He also has had androgen deprivation and he has had progression of his disease. He has been on Zytiga, prednisone as well as Xtandi. He currently has a Morales catheter indwelling. An ultrasound had showed hydronephrosis and he has had mild renal insufficiency. The nursing staff reported that his Morales catheter has been leaking. PAST MEDICAL HISTORY: Significant for above. Also history of coronary artery disease, hypertension, COPD. PAST SURGICAL HISTORY: Unknown. MEDICATIONS: Current medication list was reviewed. The patient is currently on Lovenox, Namenda, Protonix, Zoloft, Zosyn, morphine. ALLERGIES: No known drug allergies. SOCIAL HISTORY: He is currently nonsmoker. REVIEW OF SYSTEMS: As above. FAMILY HISTORY: Noncontributory. PHYSICAL EXAMINATION: GENERAL: An elderly male, in no acute distress, cachectic appearing. VITAL SIGNS: Temperature is 97.9, blood pressure is 141/88, pulse is 98, respirations 20. HEENT: Normocephalic. NECK: Supple. ABDOMEN: Shows some suprapubic fullness. Morales catheter is in place, 18-Swedish and appears to be old. Urine is yellowish, allegra. LABORATORY DATA: White count is 9.4, hemoglobin 10.4, and platelets are 142. BUN is 30, creatinine is 1.8. I believe his baseline creatinine is normal. Potassium is 3.5. Last UA showed 3+ protein, 20 to 30 rbc's, too numerous to count white cells. His last urine culture from the showed E. coli. He has had blood cultures that are negative thus far. DIAGNOSTIC IMAGING STUDIES: The patient had a renal ultrasound. This is from six days ago and at that time there was mention of moderate left-sided and [id number] right-sided hydronephrosis. Morales catheter in the bladder. IMPRESSION: 1. 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 2. Urinary retention. 3. Acute kidney injury. 4. Hydronephrosis. 5. Proteinuria. 6. UTI and colonization. 7. Hematuria. PLAN/DISCUSSION: I did evaluate the patient at the bedside. I did try to irrigate the existing Morales and it would not irrigate well, it appeared it was occluded. This was an 18-Swedish Morales. I did personally removed the Morales, gently dilated the urethra and placed a new 18-Swedish Morales and that one appeared to be in good position and I was able to irrigate it, mild hematuria was noted, but again, I was able to irrigate the catheter without difficulty. At this time, the patient will be monitored. His renal function will be monitored. I will also order a CT scan of the abdomen, pelvis, and he does have bilateral hydronephrosis, which I presume is secondary to his prostate cancer with local extension. If his renal function worsens, he may need to have the diversion of his kidneys. We could attempt stent placement. However, because of his prostate cancer, he may best be better off having nephrostomies placed. His Morales will be irrigated on a p.r.n. basis and again I will order CT for now and go from there. 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 I believe the last PSA that he had here at [facility] was 754, so he will need medical oncology intervention possibly chemo. Raz Root M.D. DR: ROSENDO JOB#: [id number] CC:
--- NOTE | 2019-04-10 16:58 | Hematology/Onc Progress Note ---
Assessment/Plan Assessment/Plan # Prostate cancer stage IV with psa >700, cr is worse, hydronephrosis noted, seen by renal, Dr. White. --> i did received records from [facility]. has regional lymphadenopathy, s/p transrectal biopsy with Gleasons 5+5 (2010) in all cores, apparently has had a 3 year course of androgen deprivation from 2011- 2014.also status post RADIATION to the prostate, then lost to followup. Following surviellance psa 0.45-->65, in 10/2016, and up to 127 in 12/2016, Ct scan showed recurrence of disease with lad but no bony mets, started on lupron 01/2017, psa fell yo 73-->46, has been sarted on zytiga + prednisone, and now psa progression on zytiga, he started xtandi in 01/2019 Psa 87. He did not go through urethral stenting, he has deferred treatment with chemo. --> He is a very poor historian, I have talked to the sister --> imaging has been noted --> as per urology recs, reviewed --> have called , no answer, trans to [facility]? --> poor prognosis given above history of treatment, defer transfer to [facility] --> psa 737-->757 --> CT ABD 04/10: Evidence of advanced metastatic neoplasm likely secondary to prostate carcinoma. Extensive retroperitoneal and pelvic lymphadenopathy complicated by presence of bilateral hydroureteronephrosis. Extensive metastatic disease involving the bones also noted. Status post seed implant radiation therapy to the prostate gland. # Hypercalcemia -- now acutely worse --> trend Ca++ 8.1-->13-->12-->10.3 --> ivf has been started --> as per nephrology --> consider pamidronate v calcitonin v other agent # Anemia due to underlying malignancy --> hgb trend as needed 9.2-->7-->10.9 --> no hemolysis is noted --> no bleeding # Episode of generalized weakness --> on ivf --> pt as needed # Hypokalemia --> replete prn # Dehydration --> on ivf # Atrophic changes without evident intracranial hemorrhage. --> as per neuro, remains confused # Respiratory failure s/p vent --> s/p vent intubated on 04/06 --> 04/08 was extubated # Hypernatremia as well as low BUN. --> on ivf # Poor prognosis # Dvt ppx lovenox sq Appreciate consultation and dW Rn Subjective Allergies: Coded Allergies: No Known Allergies (Unverified , 04/03/19) Subjective 04/06: no events, apparently intubated today and transferred to the icu, will dw family 04/07: remains in the icu, critically ill, Ca++ 12, on vent, minimally responsive , on dopa, dw pcp and pulm 04/08: no major changes, no night sweats, labs have been reviewed, dw daughter, he is more alert 04/10: awake, no acute events ct abd reviewed, stool ob negative Objective Objective Current Medications Medications (Trade) Dose Ordered Sig/La Nena Route PRN Reason Start Time Stop Time Status Last Admin Dose Admin Albuterol/ Ipratropium (Albuterol/ Ipratropium) 3 ml Q6H PRN HHN Shortness of Breath 04/09/19 21:00 04/14/19 20:59 Albuterol/ Ipratropium (Albuterol/ Ipratropium) 3 ml Q6HRT HHN 04/10/19 13:00 04/15/19 12:59 Barium Sulfate (Readi-Cat 2) 450 ml NOW PRN ORAL Radiology Procedure 04/10/19 08:30 04/12/19 08:21 Calcitonin [place] (Miacalcin) 1 sprays DAILY NASAL 04/10/19 13:30 05/10/19 13:29 Chlorhexidine Gluconate (Martha-Hex 2%) 1 applic DAILY@1999 TOPIC 04/10/19 20:00 05/06/19 19:59 Enoxaparin Sodium (Lovenox) 30 mg DAILY SUBQ 04/10/19 09:00 05/04/19 08:59 04/10/19 09:49 Hydralazine HCl (Apresoline) 10 mg Q12HR NG 04/10/19 18:00 05/10/19 17:59 Hydralazine HCl (Apresoline) 10 mg Q4H PRN IV SBP > 170mmHg 04/09/19 21:00 05/08/19 20:59 Memantine (Namenda) 5 mg BID ORAL 04/10/19 09:00 05/04/19 17:59 04/10/19 09:47 Morphine Sulfate (Morphine Sulfate) 2 mg Q4H PRN IVP For Pain 04/09/19 22:00 04/16/19 21:59 Pantoprazole (Protonix) 40 mg DAILY IVP 04/10/19 09:00 05/08/19 08:59 04/10/19 09:46 Piperacillin Sod/ Tazobactam Sod 3.375 gm/Sodium Chloride 110 ml @ 27.5 mls/hr EVERY 8 HOURS IVPB 04/09/19 22:00 04/12/19 09:59 04/10/19 15:34 Sertraline HCl (Zoloft) 25 mg DAILY ORAL 04/10/19 09:00 05/05/19 08:59 04/10/19 09:47 Last 24 Hour Vital Signs Date Time Temp Pulse Resp B/P (MAP) Pulse Ox O2 Delivery O2 Flow Rate FiO2 04/10/19 16:00 Nasal Cannula 3.0 Nasal Cannula 3.0 04/10/19 16:00 110 04/10/19 12:00 Nasal Cannula 3.0 Nasal Cannula 3.0 04/10/19 12:00 97.6 110 20 146/89 (108) 97 04/10/19 08:00 Nasal Cannula 3.0 Nasal Cannula 3.0 04/10/19 08:00 106 04/10/19 08:00 97.5 111 20 152/94 (113) 91 04/10/19 07:25 100 Nasal Cannula 2.0 28 04/10/19 04:00 97.9 98 20 141/88 (105) 98 04/10/19 04:00 3.0 04/10/19 04:00 Venturi Mask 8.0 Venturi Mask 8.0 04/10/19 03:43 107 04/10/19 00:00 Venturi Mask 8.0 Venturi Mask 8.0 04/10/19 00:00 98.2 105 20 139/85 (103) 98 04/10/19 00:00 3.0 04/09/19 23:35 99 04/09/19 21:00 98.2 107 22 127/77 (94) 98 04/09/19 20:00 105 04/09/19 20:00 98.5 102 15 110/69 (83) 100 04/09/19 20:00 Venturi Mask 8.0 Venturi Mask 8.0 04/09/19 20:00 3.0 04/09/19 19:32 104 17 100 Nasal Cannula 2.0 28 97 15 100 04/09/19 19:12 100 Nasal Cannula 2.0 28 04/09/19 19:00 99 15 124/79 (94) 100 04/09/19 18:00 103 17 128/77 (94) 100 04/09/19 17:00 121 26 156/98 (117) 100 04/09/19 16:17 144/84 04/09/19 16:00 98.2 104 18 132/83 (99) 100 04/09/19 16:00 103 04/09/19 16:00 Venturi Mask 8.0 Venturi Mask 8.0 04/09/19 16:00 3.0 04/09/19 15:00 92 13 118/72 (87) 100 04/09/19 14:00 92 14 132/76 (94) 100 04/09/19 13:43 100 22 100 Nasal Cannula 3.0 32 103 22 100 04/09/19 13:00 106 21 155/88 (110) 100 04/09/19 12:42 99 Cool Aerosol 10.0 40 04/09/19 12:00 Venturi Mask 8.0 Venturi Mask 8.0 04/09/19 12:00 3.0 04/09/19 12:00 97.9 91 16 130/77 (94) 100 04/09/19 12:00 84 04/09/19 11:00 100 20 127/71 (89) 100 04/09/19 10:00 89 13 102/61 (75) 100 04/09/19 09:00 91 15 113/63 (80) 100 04/09/19 08:15 124/74 04/09/19 08:00 87 04/09/19 08:00 97.9 87 15 116/69 (85) 100 04/09/19 08:00 Venturi Mask 8.0 Venturi Mask 8.0 04/09/19 08:00 3.0 04/09/19 07:39 102 24 100 Cool Aerosol 10.0 40 97 28 100 04/09/19 07:19 100 Cool Aerosol 10.0 40 04/09/19 07:00 120 28 139/101 (114) 100 04/09/19 06:30 90 15 118/78 (91) 100 04/09/19 06:00 90 16 119/66 (83) 100 04/09/19 05:30 96 19 114/75 (88) 100 04/09/19 05:00 88 16 126/74 (91) 100 04/09/19 04:30 99 21 133/74 (93) 100 04/09/19 04:00 97.2 97 21 128/75 (92) 100 04/09/19 04:00 10.0 40 04/09/19 04:00 Venturi Mask 10.0 Venturi Mask 10.0 04/09/19 03:30 98 21 129/75 (93) 100 04/09/19 03:04 84 04/09/19 03:00 87 17 116/78 (91) 100 04/09/19 02:00 89 16 117/70 (86) 100 04/09/19 01:42 100 Cool Aerosol 10.0 40 04/09/19 01:30 86 17 123/85 (98) 100 04/09/19 01:00 107 21 145/91 (109) 100 04/09/19 00:00 Venturi Mask 10.0 Venturi Mask 10.0 04/09/19 00:00 97.8 103 22 138/86 (103) 100 04/08/19 23:30 91 18 142/84 (103) 100 04/08/19 23:06 111 04/08/19 23:00 99 19 148/108 (121) 100 04/08/19 22:30 87 18 122/70 (87) 100 04/08/19 22:00 109 24 146/84 (104) 100 04/08/19 21:30 88 17 88/66 (73) 100 04/08/19 21:14 89 18 106/75 (85) 100 04/08/19 21:00 110 28 176/111 (132) 100 04/08/19 20:30 91 18 129/82 (98) 100 04/08/19 20:05 100 Cool Aerosol 10.0 40 04/08/19 20:05 87 18 100 Cool Aerosol 10.0 40 99 19 100 04/08/19 20:00 10.0 40 04/08/19 20:00 97.6 102 20 137/85 (102) 100 2/5/20 20:00 Venturi Mask 10.0 Venturi Mask 10.0 04/08/19 19:48 110 04/08/19 19:00 102 19 137/78 (97) 100 04/08/19 18:10 Venturi Mask 10.0 Venturi Mask 10.0 04/08/19 18:00 105 19 134/77 (96) 100 04/08/19 17:00 107 19 129/72 (91) 100 Intake and Output 04/09/19 04/10/19 19:00 07:00 Intake Total 110.0 ml 290.0 ml Output Total 0 ml 0 ml Balance 110.0 ml 290.0 ml Free Water 50 ml IV Total 110.0 ml 110.0 ml Tube Feeding 130 ml Output Urine Total 0 ml 0 ml # Voids 3 3 Labs Test 04/08/19 04:00 04/08/19 10:23 04/08/19 13:00 04/09/19 04:00 White Blood Count 9.2 K/UL (4.8-10.8) 9.3 K/UL (4.8-10.8) Red Blood Count 2.41 M/UL (4.70-6.10) 3.27 M/UL (4.70-6.10) Hemoglobin 7.0 G/DL (14.2-18.0) 9.6 G/DL (14.2-18.0) Hematocrit 19.6 % (42.0-52.0) 27.0 % (42.0-52.0) Mean Corpuscular Volume 81 FL (80-99) 83 FL (80-99) Mean Corpuscular Hemoglobin 29.0 PG (27.0-31.0) 29.3 PG (27.0-31.0) Mean Corpuscular Hemoglobin Concent 35.7 G/DL (32.0-36.0) 35.4 G/DL (32.0-36.0) Red Cell Distribution Width 16.2 % (11.6-14.8) 15.1 % (11.6-14.8) Platelet Count 140 K/UL (150-450) 118 K/UL (150-450) Mean Platelet Volume 5.5 FL (6.5-10.1) 5.3 FL (6.5-10.1) Neutrophils (%) (Auto) % (45.0-75.0) 81.5 % (45.0-75.0) Lymphocytes (%) (Auto) % (20.0-45.0) 8.4 % (20.0-45.0) Monocytes (%) (Auto) % (1.0-10.0) 5.2 % (1.0-10.0) Eosinophils (%) (Auto) % (0.0-3.0) 4.7 % (0.0-3.0) Basophils (%) (Auto) % (0.0-2.0) 0.3 % (0.0-2.0) Differential Total Cells Counted 100 Neutrophils % (Manual) 70 % (45-75) Lymphocytes % (Manual) 19 % (20-45) Monocytes % (Manual) 5 % (1-10) Eosinophils % (Manual) 6 % (0-3) Basophils % (Manual) 0 % (0-2) Band Neutrophils 0 % (0-8) Platelet Estimate Decreased Platelet Morphology Normal Anisocytosis 2+ Ovalocytes 1+ Acanthocytes 1+ Schistocytes 1+ Sodium Level 145 MMOL/L (136-145) 148 MMOL/L (136-145) Potassium Level 3.7 MMOL/L (3.5-5.1) 3.4 MMOL/L (3.5-5.1) Chloride Level 110 MMOL/L (98-107) 112 MMOL/L (98-107) Carbon Dioxide Level 28 MMOL/L (21-32) 29 MMOL/L (21-32) Anion Gap 7 mmol/L (5-15) 7 mmol/L (5-15) Blood Urea Nitrogen 24 mg/dL (7-18) 23 mg/dL (7-18) Creatinine 1.5 MG/DL (0.55-1.30) 1.5 MG/DL (0.55-1.30) Estimat Glomerular Filtration Rate mL/min (>60) mL/min (>60) Glucose Level 107 MG/DL (74-106) 88 MG/DL (74-106) Calcium Level 10.3 MG/DL (8.5-10.1) 11.4 MG/DL (8.5-10.1) Arterial Blood pH 7.381 (7.350-7.450) Arterial Blood Partial Pressure CO2 45.8 mmHg (35.0-45.0) Arterial Blood Partial Pressure O2 79.5 mmHg (75.0-100.0) Arterial Blood HCO3 26.5 mmol/L (22.0-26.0) Arterial Blood Oxygen Saturation 94.3 % (95-100) Arterial Blood Base Excess 1.2 (-2-2) Antonio Test Positive Stool Occult Blood Negative (NEGATIVE) Test 04/09/19 08:08 04/09/19 09:41 04/10/19 04:35 Arterial Blood pH 7.329 (7.350-7.450) Arterial Blood Partial Pressure CO2 52.4 mmHg (35.0-45.0) Arterial Blood Partial Pressure O2 85.7 mmHg (75.0-100.0) Arterial Blood HCO3 26.9 mmol/L (22.0-26.0) Arterial Blood Oxygen Saturation 95.5 % (95-100) Arterial Blood Base Excess 0.5 (-2-2) Antonio Test Positive Vancomycin Level Trough 8.0 ug/mL (5.0-12.0) White Blood Count 9.4 K/UL (4.8-10.8) Red Blood Count 3.62 M/UL (4.70-6.10) Hemoglobin 10.4 G/DL (14.2-18.0) Hematocrit 30.6 % (42.0-52.0) Mean Corpuscular Volume 85 FL (80-99) Mean Corpuscular Hemoglobin 28.7 PG (27.0-31.0) Mean Corpuscular Hemoglobin Concent 34.0 G/DL (32.0-36.0) Red Cell Distribution Width 15.8 % (11.6-14.8) Platelet Count 142 K/UL (150-450) Mean Platelet Volume 5.6 FL (6.5-10.1) Neutrophils (%) (Auto) 77.0 % (45.0-75.0) Lymphocytes (%) (Auto) 9.4 % (20.0-45.0) Monocytes (%) (Auto) 7.3 % (1.0-10.0) Eosinophils (%) (Auto) 5.6 % (0.0-3.0) Basophils (%) (Auto) 0.8 % (0.0-2.0) Sodium Level 153 MMOL/L (136-145) Potassium Level 3.5 MMOL/L (3.5-5.1) Chloride Level 116 MMOL/L (98-107) Carbon Dioxide Level 27 MMOL/L (21-32) Anion Gap 10 mmol/L (5-15) Blood Urea Nitrogen 30 mg/dL (7-18) Creatinine 1.8 MG/DL (0.55-1.30) Estimat Glomerular Filtration Rate mL/min (>60) Glucose Level 95 MG/DL (74-106) Calcium Level 12.1 MG/DL (8.5-10.1) Height (Feet): 5 Height (Inches): 7.00 Weight (Pounds): 116 Objective General: normal inspection, alert, Chronically Ill Respiratory: s/p vent++ Cardiovascular: regular rate, rhythm, no edema Gastrointestinal: normal inspection, normal bowel sounds Genitourinary: no CVA tenderness Mus: normal inspection, back normal, normal range of motion Neurologic: alert, motor strength/tone normal, oriented + confused Psychiatric: normal inspection, judgement/insight normal Skin: no rash Andreas Monroy MD Apr 10, 2019 16:58
--- NOTE | 2019-04-10 16:58 | NUR ---
BEDSIDE SWALLOW EVALUATION COMPLETED POST CHART REVIEW AND INTERVIEW WITH BLANCA CAMPUZANO. DYSPHAGIA RISK FACTORS FOR THIS 73 YEAR OLD MALE INCLUDES: GENERALIZED WEAKNESS, HX OF WEIGHT LOSSS/SUBOPTIMAL P.O. INTAKE, DECREASED MENTATION. PLOF: PATIENT BROUGHT TO HOSPITAL FROM HOME POLST: FULL CODE PATIENT GIVEN P.O. TRIALS OF THIN (CUP/SIP, TSP, STRAW), PUREE/TSP, NECTAR THICK LIQUIDS (TSP/CUP) AND 1/4 CRACKER/SOFT SOLID. INITIAL IMPRESSION: MILD/MOD OROPHARYNGEAL DYSPHAGIA SENSORIMOTOR DEFICITS RESULTING IN DELAYS IN ORAL PREPARATION/PROLONGED MASTICATION/DELAYED ORAL TRANSIT AND INITIATION OF PHARYNGEAL PHASE OF SWALLOW. PATIENT PRESENTS WEAK/ILL APPEARING, VOCAL VOLUME LOW LABIAL SEAL SUFFICIENT, PHARYNGEAL PHASE PALPATED: HYOLARYNGEAL EXCURSION APPEARED SUFFICIENT FOR AIRWAY PROTECTION. nO CHANGES IN VOCAL QUALITY, COUGH OR THROAQT CLEAR NOTED WITH ALL P.O. TRIALS. RISK FOR SILENT ASPIRATION MODERATE HIGH. RECOMMENDATIONS; 1. MODIFIED TEXTURE DIET: PUREE/NECTAR THICK LIQUIDS/NO STRAWS 2. MEALTIME PROTOCOL POSTED AT BEDSIDE TO MINIMIZE RISK OF ASPIRATION 3. TOTAL ASSIST WITH MEALS 4. CRUSH CRUSHABLE MEDS/PRESENT IN PUREE 5. VIDEO SWALLOW STUDY TO RULE OUT SILENT ASPIRATION 6. ST TO FOLLOW FOR DIET TOLERANCE, PATIENT/CAREGIVER EDUCATION D/W BLANCA CAMPUZANO.
--- NOTE | 2019-04-10 17:00 | NUR ---
NURSE NOTES: Speech Therapy eval done ,pt passed ,pt will be started on a Pureed thickened liquid.NGT removed by speech Therapist.
[2019-04-10] MEDS: HydrALAZINE 10mg Tab NG SCH (18:07)
--- NOTE | 2019-04-10 18:17 | NUR ---
NURSE NOTES: pt confused on and off transferred to Room 244-1 to be close to nrsg station to be monitored closely.family members at bedside.
[2019-04-10] MEDS: Albuterol/Ipratropium 3ml neb HHN SCH ×2 (18:57→18:58)
--- NOTE | 2019-04-10 19:19 | NUR ---
HAND-OFF: Report given to Los Early RN.pt stable,sleeping at this time.
--- NOTE | 2019-04-10 19:23 | Infectious Diseases Prog Note ---
Assessment/Plan Assessment/Plan Assessment: s/p asystole cardiac arrest 04/06 VDRF; s/p extubation 04/08 Shock, off pressors now Sepsis UTI B/l hydroureteronephrosis -04/10 CT abd/p: Evidence of advanced metastatic neoplasm likely secondary to prostate carcinoma. Extensive retroperitoneal and pelvic lymphadenopathy complicated by presence of bilateral hydroureteronephrosis. Extensive metastatic disease involving the bones also noted. Small left pleural effusion. Right trace right pleural effusion. Right inguinal hernia containing a small amount of fluid. Alternatively this could represent part of the testis. Anasarca. -u/a wbc 20-30, nit +, leuk +3; ucx >100k E.coli (R amp, bactrim; otherwise S) Probable Aspiration pneumonitis vs PNA -04/08 CXR: Patchy perihilar disease which may be asymmetric interstitial edema or infiltrate unchanged. Interval resolution of right basal atelectasis. -/ sp cx normal sharyn(prelim) Afebrile Mild leukocytosis, recurrent- SP -04/07 Bcx NTD u/a wbc tnct, nit neg, leuk +; ucx p -04/06 CXR: Interval resolution of right apical density. This suggests the diagnosis was atelectasis rather than an apical cap from blood, which was suggested as a possibility on the prior report. The right upper lobe atelectasis has resolved. Suspicion of new atelectasis at the right lung base. s/p recent fall LETA Hypokalemia prostate CA stage IV, mets to bone chronic indwelling guerra catheter Plan: -Switch empiric ZOsyn #4 (abx d #10/11) to Ceftriaxone for E.coli UTI -04/09 SP IV Vancomycin #3 -04/07 SP Ceftriaxone #4 -f/u cx -Monitor CBC/CMP, temperatures -aspiration precautions -Cards, renal, Uro, pulm f/u Thank you for this consultation. Will continue to follow along with you. Discussed with RN Subjective Allergies: Coded Allergies: No Known Allergies (Unverified , 04/03/19) Subjective afebrile no leukocytosis transferred out of ICU to [facility] at 2l NC Objective Vital Signs Last 24 Hour Vital Signs Date Time Temp Pulse Resp B/P (MAP) Pulse Ox O2 Delivery O2 Flow Rate FiO2 04/10/19 19:07 111 16 94 Nasal Cannula 2.0 28 109 16 91 2/7/20 19:06 91 Nasal Cannula 2.0 28 04/10/19 18:07 120/82 04/10/19 16:00 Nasal Cannula 3.0 Nasal Cannula 3.0 04/10/19 16:00 110 04/10/19 16:00 97.4 107 20 120/82 (95) 97 04/10/19 12:00 Nasal Cannula 3.0 Nasal Cannula 3.0 04/10/19 12:00 97.6 110 20 146/89 (108) 97 04/10/19 08:00 Nasal Cannula 3.0 Nasal Cannula 3.0 04/10/19 08:00 106 04/10/19 08:00 97.5 111 20 152/94 (113) 91 04/10/19 07:25 100 Nasal Cannula 2.0 28 04/10/19 04:00 97.9 98 20 141/88 (105) 98 04/10/19 04:00 3.0 04/10/19 04:00 Venturi Mask 8.0 Venturi Mask 8.0 04/10/19 03:43 107 04/10/19 00:00 Venturi Mask 8.0 Venturi Mask 8.0 04/10/19 00:00 98.2 105 20 139/85 (103) 98 04/10/19 00:00 3.0 04/09/19 23:35 99 04/09/19 21:00 98.2 107 22 127/77 (94) 98 04/09/19 20:00 105 04/09/19 20:00 98.5 102 15 110/69 (83) 100 04/09/19 20:00 Venturi Mask 8.0 Venturi Mask 8.0 04/09/19 20:00 3.0 04/09/19 19:32 104 17 100 Nasal Cannula 2.0 28 97 15 100 Height (Feet): 5 Height (Inches): 7.00 Weight (Pounds): 116 Objective General Appearance: normal inspection, alert, Chronically Ill Head: atraumatic ENT: normal ENT inspection, normal voice, dry mucus membranes Neck: normal inspection, full range of motion, supple, no bony tend Respiratory: normal inspection, lungs clear, normal breath sounds, no respiratory distress, no retraction, no wheezing Cardiovascular #1: regular rate, rhythm, no edema Gastrointestinal: normal inspection, normal bowel sounds, non tender, soft, no guarding, no hernia Genitourinary: no CVA tenderness Musculoskeletal: normal inspection, back normal, normal range of motion Neurologic: alert, motor strength/tone normal, oriented, motor weakness, responsive, speech normal, other - atrophy to muscles Psychiatric: normal inspection, judgement/insight normal, mood/affect normal Skin: no rash Laboratory Tests Test 04/10/19 04:35 White Blood Count 9.4 K/UL (4.8-10.8) Red Blood Count 3.62 M/UL (4.70-6.10) L Hemoglobin 10.4 G/DL (14.2-18.0) L Hematocrit 30.6 % (42.0-52.0) L Mean Corpuscular Volume 85 FL (80-99) Mean Corpuscular Hemoglobin 28.7 PG (27.0-31.0) Mean Corpuscular Hemoglobin Concent 34.0 G/DL (32.0-36.0) Red Cell Distribution Width 15.8 % (11.6-14.8) H Platelet Count 142 K/UL (150-450) L Mean Platelet Volume 5.6 FL (6.5-10.1) L Neutrophils (%) (Auto) 77.0 % (45.0-75.0) H Lymphocytes (%) (Auto) 9.4 % (20.0-45.0) L Monocytes (%) (Auto) 7.3 % (1.0-10.0) Eosinophils (%) (Auto) 5.6 % (0.0-3.0) H Basophils (%) (Auto) 0.8 % (0.0-2.0) Sodium Level 153 MMOL/L (136-145) H Potassium Level 3.5 MMOL/L (3.5-5.1) Chloride Level 116 MMOL/L (98-107) H Carbon Dioxide Level 27 MMOL/L (21-32) Anion Gap 10 mmol/L (5-15) Blood Urea Nitrogen 30 mg/dL (7-18) H Creatinine 1.8 MG/DL (0.55-1.30) H Estimat Glomerular Filtration Rate mL/min (>60) Glucose Level 95 MG/DL (74-106) Calcium Level 12.1 MG/DL (8.5-10.1) H Current Medications Medications (Trade) Dose Ordered Sig/La Nena Route PRN Reason Start Time Stop Time Status Last Admin Dose Admin Albuterol/ Ipratropium (Albuterol/ Ipratropium) 3 ml Q6H PRN HHN Shortness of Breath 04/09/19 21:00 04/14/19 20:59 Albuterol/ Ipratropium (Albuterol/ Ipratropium) 3 ml Q6HRT HHN 04/10/19 13:00 04/15/19 12:59 04/10/19 18:58 Barium Sulfate (Readi-Cat 2) 450 ml NOW PRN ORAL Radiology Procedure 04/10/19 08:30 04/12/19 08:21 Calcitonin [place] (Miacalcin) 1 sprays DAILY NASAL 04/10/19 13:30 05/10/19 13:29 Chlorhexidine Gluconate (Martha-Hex 2%) 1 applic DAILY@2000 TOPIC 04/10/19 20:00 05/06/19 19:59 Enoxaparin Sodium (Lovenox) 30 mg DAILY SUBQ 04/10/19 09:00 05/04/19 08:59 04/10/19 09:49 Hydralazine HCl (Apresoline) 10 mg Q12HR NG 04/10/19 18:00 05/10/19 17:59 04/10/19 18:07 Hydralazine HCl (Apresoline) 10 mg Q4H PRN IV SBP > 170mmHg 04/09/19 21:00 05/08/19 20:59 Memantine (Namenda) 5 mg BID ORAL 04/10/19 09:00 05/04/19 17:59 04/10/19 18:08 Morphine Sulfate (Morphine Sulfate) 2 mg Q4H PRN IVP For Pain 04/09/19 22:00 04/16/19 21:59 Pantoprazole (Protonix) 40 mg DAILY IVP 04/10/19 09:00 05/08/19 08:59 04/10/19 09:46 Piperacillin Sod/ Tazobactam Sod 3.375 gm/Sodium Chloride 110 ml @ 27.5 mls/hr EVERY 8 HOURS IVPB 04/09/19 22:00 04/12/19 09:59 04/10/19 15:34 Sertraline HCl (Zoloft) 25 mg DAILY ORAL 04/10/19 09:00 05/05/19 08:59 04/10/19 09:47 Rafia Nielson M.D. Apr 10, 2019 19:23
--- NOTE | 2019-04-10 19:30 | NUR ---
NURSE NOTES: Received report from BLANCA Robert. Pt is resting on the bed and awake and confused and slight agitated. On O2 2L via nasal cannula and SaO2 98% noted. On tele monitor with SR. Pt has Lt. subclavian TLC and dressing is clean and dry. Noted dressing on both heels, sacral and back. skin tear on Lt. lateral elbow, multiple black scabs on Rt. knee and Lt. knee and dressing is clean and dry. Repositioned. Placed fall precaution. Will continue to care plan. Addendum: 04/10/19 at 2333 by JINA BARNETT RN RN Pt crow quinones and patent but still noted hematuria. Will continue to monitor.
[2019-04-10 20:00] VITALS: BP 129/69
[2019-04-10] MEDS: Dyna-Hex 2% Top Sol 2oz TOPIC SCH (20:11)
[2019-04-10] MEDS: cefTRIAXone 1 GM in D5W 55 ML IVPB SCH (23:22)
[2019-04-11] VITALS: BP 130/80
[2019-04-11] MEDS: Albuterol/Ipratropium 3ml neb HHN SCH ×4 (01:42→18:50)
[2019-04-11 04:00] VITALS: BP 129/82
[2019-04-11 05:43] LABS: BASOPHILS % (AUTO) 0.7 % (0.0-2.0); EOSINOPHILS % (AUTO) 4.2 % (0.0-3.0); HEMATOCRIT 28.6 % (42.0-52.0); HEMOGLOBIN 9.6 G/DL (14.2-18.0); LYMPHOCYTES % (AUTO) 8.2 % (20.0-45.0); MEAN CORPUSCULAR VOLUME 85 FL (80-99); MONOCYTES % (AUTO) 8.6 % (1.0-10.0); NEUTROPHILS % (AUTO) 78.3 % (45.0-75.0); PLATELET COUNT 115 K/UL (150-450); RED BLOOD COUNT 3.34 M/UL (4.70-6.10); RED CELL DISTRIBUTION WIDTH 16.2 % (11.6-14.8); WHITE BLOOD COUNT 7.7 K/UL (4.8-10.8)
[2019-04-11 06:13] LABS: ANION GAP 8 mmol/L (5-15); BLOOD UREA NITROGEN 28 mg/dL (7-18); CARBON DIOXIDE 30 MMOL/L (21-32); CHLORIDE 117 MMOL/L (98-107); CREATININE 1.7 MG/DL (0.55-1.30); POTASSIUM 3.4 MMOL/L (3.5-5.1); SODIUM 155 MMOL/L (136-145)
--- NOTE | 2019-04-11 07:10 | General Progress Note ---
Assessment/Plan Status: stable, progressing Assessment/Plan: Assessment/Plan Problems: (1) Coffee ground emesis ICD Codes: K92.0 - Hematemesis SNOMED: 26661992 (2) Anemia ICD Codes: D64.9 - Anemia, unspecified SNOMED: 995780405 Status: unchanged Assessment/Plan This is a 73-year-old male, status post Code Blue with coffee-grounds emesis, tachycardia, anemia. Protonix 40 mg q.12. F/U OB stool>>>neg>>> will hold GI procedures for now prn transfusions maintain above 7 speech eval>>> on puree diet now will follow Subjective ROS Limited/Unobtainable: Yes Allergies: Coded Allergies: No Known Allergies (Unverified , 04/03/19) Objective Last 24 Hour Vital Signs Date Time Temp Pulse Resp B/P (MAP) Pulse Ox O2 Delivery O2 Flow Rate FiO2 04/11/19 04:00 97.6 105 20 129/82 (98) 97 04/11/19 04:00 95 04/11/19 04:00 Nasal Cannula 3.0 Nasal Cannula 3.0 04/11/19 01:42 106 18 99 Nasal Cannula 2.0 28 103 18 97 04/11/19 00:00 102 04/11/19 00:00 97.6 99 20 130/80 (97) 97 04/11/19 00:00 Nasal Cannula 3.0 Nasal Cannula 3.0 04/10/19 20:00 97.2 99 20 129/69 (89) 99 04/10/19 20:00 104 04/10/19 20:00 Nasal Cannula 3.0 Nasal Cannula 3.0 04/10/19 19:07 111 16 94 Nasal Cannula 2.0 28 109 16 91 04/10/19 19:06 91 Nasal Cannula 2.0 28 04/10/19 18:07 120/82 04/10/19 16:00 Nasal Cannula 3.0 Nasal Cannula 3.0 04/10/19 16:00 110 04/10/19 16:00 97.4 107 20 120/82 (95) 97 04/10/19 12:00 Nasal Cannula 3.0 Nasal Cannula 3.0 04/10/19 12:00 97.6 110 20 146/89 (108) 97 04/10/19 08:00 Nasal Cannula 3.0 Nasal Cannula 3.0 04/10/19 08:00 106 04/10/19 08:00 97.5 111 20 152/94 (113) 91 04/10/19 07:25 100 Nasal Cannula 2.0 28 Intake and Output 04/10/19 04/11/19 19:00 07:00 Intake Total 470 ml 175 ml Output Total 653 ml 502 ml Balance -183 ml -327 ml Intake Oral 120 ml 120 ml Free Water 250 ml IV Total 55 ml Tube Feeding 40 ml Other 60 ml Output Urine Total 650 ml 500 ml Stool Total 3 ml 2 ml # Bowel Movements 2 2 Laboratory Tests 04/11/19 04:10: White Blood Count 7.7, Red Blood Count 3.34L, Hemoglobin 9.6L, Hematocrit 28.6L , Mean Corpuscular Volume 85, Mean Corpuscular Hemoglobin 28.7, Mean Corpuscular Hemoglobin Concent 33.6, Red Cell Distribution Width 16.2H, Platelet Count 115L, Mean Platelet Volume 5.4L, Neutrophils (%) (Auto) 78.3H, Lymphocytes (%) (Auto) 8.2L, Monocytes (%) (Auto) 8.6, Eosinophils (%) (Auto) 4.2H, Basophils (%) (Auto) 0.7, Sodium Level 155H, Potassium Level 3.4L, Chloride Level 117H, Carbon Dioxide Level 30, Anion Gap 8, Blood Urea Nitrogen 28H, Creatinine 1.7H, Estimat Glomerular Filtration Rate , Glucose Level 94, Calcium Level 12.0H Height (Feet): 5 Height (Inches): 7.00 Weight (Pounds): 116 General Appearance: alert EENT: normal ENT inspection Neck: supple Cardiovascular: normal rate Respiratory/Chest: decreased breath sounds Abdomen: normal bowel sounds, non tender, soft Extremities: non-tender Tyrone Lamb MD Apr 11, 2019 07:10
--- NOTE | 2019-04-11 07:20 | NUR ---
NURSE NOTES: Received patient from [facility] [place]. Patient is laying awake in bed. Patient is aox2, and confused. Patient is SR on the diagnostic cardiac sonographer. Patient is on 3L NC as ordered and tolerating well. Patient has a Left SC TLC and a R FA 20g and flushing properly and intact. Bed is locked, alarmed and in the lowest postion. Side rails x3, and call light within reach. Will continue to monitor.
--- NOTE | 2019-04-11 07:25 | NUR ---
HAND-OFF: Report given to BLANCA barahona. Pt is resting on the bed and no sign of acute distress noted. on Morales cath and straw color urine urinated.
[2019-04-11 08:00] VITALS: BP 135/82
--- NOTE | 2019-04-11 08:41 | General Progress Note ---
Assessment/Plan Problem List: (1) UTI (urinary tract infection) ICD Codes: N39.0 - Urinary tract infection, site not specified SNOMED: 90129971 (2) Weak ICD Codes: R53.1 - Weakness SNOMED: 75931255 (3) Anemia ICD Codes: D64.9 - Anemia, unspecified SNOMED: 442196118 (4) Dehydration ICD Codes: E86.0 - Dehydration SNOMED: 58513052, 86663502 (5) Episode of generalized weakness ICD Codes: R53.1 - Weakness SNOMED: 80675142 (6) Stage III adenocarcinoma of prostate ICD Codes: C61 - Malignant neoplasm of prostate SNOMED: 391103146, 66953190 Status: stable, progressing Assessment/Plan: wean vent pt diet abx iv fluid heme gi eval cbc bmp am Subjective Constitutional: Reports: weakness Allergies: Coded Allergies: No Known Allergies (Unverified , 04/03/19) All Systems: reviewed and negative except above Subjective o2nc sleep Objective Last 24 Hour Vital Signs Date Time Temp Pulse Resp B/P (MAP) Pulse Ox O2 Delivery O2 Flow Rate FiO2 04/11/19 07:18 102 20 98 Nasal Cannula 2.0 28 106 20 97 04/11/19 07:17 96 Nasal Cannula 2.0 28 04/11/19 04:00 97.6 105 20 129/82 (98) 97 04/11/19 04:00 95 04/11/19 04:00 Nasal Cannula 3.0 Nasal Cannula 3.0 04/11/19 01:42 106 18 99 Nasal Cannula 2.0 28 103 18 97 04/11/19 00:00 102 04/11/19 00:00 97.6 99 20 130/80 (97) 97 04/11/19 00:00 Nasal Cannula 3.0 Nasal Cannula 3.0 04/10/19 20:00 97.2 99 20 129/69 (89) 99 04/10/19 20:00 104 04/10/19 20:00 Nasal Cannula 3.0 Nasal Cannula 3.0 04/10/19 19:07 111 16 94 Nasal Cannula 2.0 28 109 16 91 04/10/19 19:06 91 Nasal Cannula 2.0 28 04/10/19 18:07 120/82 04/10/19 16:00 Nasal Cannula 3.0 Nasal Cannula 3.0 04/10/19 16:00 110 04/10/19 16:00 97.4 107 20 120/82 (95) 97 04/10/19 12:00 Nasal Cannula 3.0 Nasal Cannula 3.0 04/10/19 12:00 97.6 110 20 146/89 (108) 97 Intake and Output 04/10/19 04/11/19 19:00 07:00 Intake Total 470 ml 175 ml Output Total 653 ml 502 ml Balance -183 ml -327 ml Intake Oral 120 ml 120 ml Free Water 250 ml IV Total 55 ml Tube Feeding 40 ml Other 60 ml Output Urine Total 650 ml 500 ml Stool Total 3 ml 2 ml # Bowel Movements 2 2 Laboratory Tests 04/11/19 04:10: White Blood Count 7.7, Red Blood Count 3.34L, Hemoglobin 9.6L, Hematocrit 28.6L , Mean Corpuscular Volume 85, Mean Corpuscular Hemoglobin 28.7, Mean Corpuscular Hemoglobin Concent 33.6, Red Cell Distribution Width 16.2H, Platelet Count 115L, Mean Platelet Volume 5.4L, Neutrophils (%) (Auto) 78.3H, Lymphocytes (%) (Auto) 8.2L, Monocytes (%) (Auto) 8.6, Eosinophils (%) (Auto) 4.2H, Basophils (%) (Auto) 0.7, Sodium Level 155H, Potassium Level 3.4L, Chloride Level 117H, Carbon Dioxide Level 30, Anion Gap 8, Blood Urea Nitrogen 28H, Creatinine 1.7H, Estimat Glomerular Filtration Rate , Glucose Level 94, Calcium Level 12.0H Height (Feet): 5 Height (Inches): 7.00 Weight (Pounds): 116 General Appearance: lethargic EENT: normal ENT inspection Neck: normal alignment Cardiovascular: normal peripheral pulses, normal rate, regular rhythm Respiratory/Chest: chest wall non-tender, lungs clear, normal breath sounds Abdomen: normal bowel sounds, non tender, soft Extremities: normal inspection Edema: no edema noted Arm (L), no edema noted Arm (R), no edema noted Leg (L), no edema noted Leg (R), no edema noted Pedal (L), no edema noted Pedal (R), no edema noted Generalized Neurologic: motor weakness Skin: normal pigmentation, warm/dry Sawyer Toussaint DO Apr 11, 2019 08:41
[2019-04-11] MEDS: Pantoprazole Inj IVP SCH (09:37)
[2019-04-11] MEDS: Memantine 5 MG TAB ORAL SCH ×2 (09:37→17:46)
[2019-04-11] MEDS: Sertraline 50mg tab ORAL SCH (09:37)
[2019-04-11] MEDS: HydrALAZINE 10mg Tab NG SCH ×2 (09:38→20:28)
[2019-04-11] MEDS: Enoxaparin 30mg Inj SUBQ SCH (09:39)
--- NOTE | 2019-04-11 09:42 | Surgery Progress Note ---
Surgery Progress Note Subjective Procedure Performed right subclavian central venous catheter insertion Additional Comments labs reviewed exam stable comfortable Objective Last 24 Hour Vital Signs Date Time Temp Pulse Resp B/P (MAP) Pulse Ox O2 Delivery O2 Flow Rate FiO2 04/11/19 09:38 135/82 04/11/19 07:18 102 20 98 Nasal Cannula 2.0 28 106 20 97 04/11/19 07:17 96 Nasal Cannula 2.0 28 04/11/19 04:00 97.6 105 20 129/82 (98) 97 04/11/19 04:00 95 04/11/19 04:00 Nasal Cannula 3.0 Nasal Cannula 3.0 04/11/19 01:42 106 18 99 Nasal Cannula 2.0 28 103 18 97 04/11/19 00:00 102 04/11/19 00:00 97.6 99 20 130/80 (97) 97 04/11/19 00:00 Nasal Cannula 3.0 Nasal Cannula 3.0 04/10/19 20:00 97.2 99 20 129/69 (89) 99 04/10/19 20:00 104 04/10/19 20:00 Nasal Cannula 3.0 Nasal Cannula 3.0 04/10/19 19:07 111 16 94 Nasal Cannula 2.0 28 109 16 91 04/10/19 19:06 91 Nasal Cannula 2.0 28 04/10/19 18:07 120/82 04/10/19 16:00 Nasal Cannula 3.0 Nasal Cannula 3.0 04/10/19 16:00 110 04/10/19 16:00 97.4 107 20 120/82 (95) 97 04/10/19 12:00 Nasal Cannula 3.0 Nasal Cannula 3.0 04/10/19 12:00 97.6 110 20 146/89 (108) 97 I&O Intake and Output 04/10/19 04/11/19 19:00 07:00 Intake Total 470 ml 175 ml Output Total 653 ml 502 ml Balance -183 ml -327 ml Intake Oral 120 ml 120 ml Free Water 250 ml IV Total 55 ml Tube Feeding 40 ml Other 60 ml Output Urine Total 650 ml 500 ml Stool Total 3 ml 2 ml # Bowel Movements 2 2 Dressing: other Wound: other Drains: other Cardiovascular: RSR Respiratory: decreased breath sounds Abdomen: soft, present bowel sounds Extremities: no cyanosis Laboratory Tests Test 04/11/19 04:10 White Blood Count 7.7 K/UL (4.8-10.8) Red Blood Count 3.34 M/UL (4.70-6.10) L Hemoglobin 9.6 G/DL (14.2-18.0) L Hematocrit 28.6 % (42.0-52.0) L Mean Corpuscular Volume 85 FL (80-99) Mean Corpuscular Hemoglobin 28.7 PG (27.0-31.0) Mean Corpuscular Hemoglobin Concent 33.6 G/DL (32.0-36.0) Red Cell Distribution Width 16.2 % (11.6-14.8) H Platelet Count 115 K/UL (150-450) L Mean Platelet Volume 5.4 FL (6.5-10.1) L Neutrophils (%) (Auto) 78.3 % (45.0-75.0) H Lymphocytes (%) (Auto) 8.2 % (20.0-45.0) L Monocytes (%) (Auto) 8.6 % (1.0-10.0) Eosinophils (%) (Auto) 4.2 % (0.0-3.0) H Basophils (%) (Auto) 0.7 % (0.0-2.0) Sodium Level 155 MMOL/L (136-145) H Potassium Level 3.4 MMOL/L (3.5-5.1) L Chloride Level 117 MMOL/L (98-107) H Carbon Dioxide Level 30 MMOL/L (21-32) Anion Gap 8 mmol/L (5-15) Blood Urea Nitrogen 28 mg/dL (7-18) H Creatinine 1.7 MG/DL (0.55-1.30) H Estimat Glomerular Filtration Rate mL/min (>60) Glucose Level 94 MG/DL (74-106) Calcium Level 12.0 MG/DL (8.5-10.1) H Plan Problems: (1) Cardiac arrest Assessment & Plan: improving central line placed left subclavian iv fluids abx as per ID trend labs abg okay tube feeds via ng tube cont current treatment will follow with recs thank you (2) Stage III adenocarcinoma of prostate Assessment & Plan: patient with state 3 prostate cancer pending treatment at [facility] unlikely related to acute cardiac arrest this am abd exam with mild distention pending KUB no acute surgical intervention planned onc input thank you will follow with Jay Conrad Apr 11, 2019 09:42
--- NOTE | 2019-04-11 09:44 | Urology Progress Note ---
Assessment/Plan Status: stable, progressing Assessment/Plan: 1. 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 2. Urinary retention. 3. Acute kidney injury. 4. Hydronephrosis, likely chronic. 5. Proteinuria. 6. UTI and colonization. 7. Hematuria. monitor clinically maintain guerra hand irrigated and do PRN position is satisfactory monitor renal fxn likely obst of bilateral distal ureters secondary to advanced prostate ca will need to see how aggressive pt and family want to be renal fxn will likely improve with un-obstruction of kidneys not sure if ureteral stents would work well nephrostomies may be more feasible d/w Dr. White Subjective Allergies: Coded Allergies: No Known Allergies (Unverified , 04/03/19) Subjective all noted, lethargic, minimal guerra leakage Objective Last 24 Hour Vital Signs Date Time Temp Pulse Resp B/P (MAP) Pulse Ox O2 Delivery O2 Flow Rate FiO2 04/11/19 09:38 135/82 04/11/19 07:18 102 20 98 Nasal Cannula 2.0 28 106 20 97 04/11/19 07:17 96 Nasal Cannula 2.0 28 04/11/19 04:00 97.6 105 20 129/82 (98) 97 04/11/19 04:00 95 04/11/19 04:00 Nasal Cannula 3.0 Nasal Cannula 3.0 04/11/19 01:42 106 18 99 Nasal Cannula 2.0 28 103 18 97 04/11/19 00:00 102 04/11/19 00:00 97.6 99 20 130/80 (97) 97 04/11/19 00:00 Nasal Cannula 3.0 Nasal Cannula 3.0 04/10/19 20:00 97.2 99 20 129/69 (89) 99 04/10/19 20:00 104 04/10/19 20:00 Nasal Cannula 3.0 Nasal Cannula 3.0 04/10/19 19:07 111 16 94 Nasal Cannula 2.0 28 109 16 91 04/10/19 19:06 91 Nasal Cannula 2.0 28 04/10/19 18:07 120/82 04/10/19 16:00 Nasal Cannula 3.0 Nasal Cannula 3.0 04/10/19 16:00 110 04/10/19 16:00 97.4 107 20 120/82 (95) 97 04/10/19 12:00 Nasal Cannula 3.0 Nasal Cannula 3.0 04/10/19 12:00 97.6 110 20 146/89 (108) 97 Intake and Output 04/10/19 04/11/19 19:00 07:00 Intake Total 470 ml 175 ml Output Total 653 ml 502 ml Balance -183 ml -327 ml Intake Oral 120 ml 120 ml Free Water 250 ml IV Total 55 ml Tube Feeding 40 ml Other 60 ml Output Urine Total 650 ml 500 ml Stool Total 3 ml 2 ml # Bowel Movements 2 2 Microbiology Date/Time Source Procedure Growth Status 04/07/19 09:30 Blood Blood Culture - Preliminary NO GROWTH AFTER 72 HOURS Resulted 04/07/19 09:30 Sputum Induced Gram Stain - Final Complete 04/07/19 09:30 Sputum Induced Sputum Culture - Final NORMAL UPPER RESPIRATORY DAVID PRESENT Complete 04/07/19 09:50 Urine,Clean Catch Urine Culture - Preliminary NO GROWTH AFTER 24 HOURS Resulted Current Medications Medications (Trade) Dose Ordered Sig/La Nena Route PRN Reason Start Time Stop Time Status Last Admin Dose Admin Albuterol/ Ipratropium (Albuterol/ Ipratropium) 3 ml Q6H PRN HHN Shortness of Breath 04/09/19 21:00 04/14/19 20:59 Albuterol/ Ipratropium (Albuterol/ Ipratropium) 3 ml Q6HRT HHN 04/10/19 13:00 04/15/19 12:59 04/11/19 07:22 Barium Sulfate (Readi-Cat 2) 450 ml NOW PRN ORAL Radiology Procedure 04/10/19 08:30 04/12/19 08:21 Calcitonin [place] (Miacalcin) 1 sprays DAILY NASAL 04/10/19 13:30 05/10/19 13:29 04/11/19 09:36 Ceftriaxone Sodium 1 gm/ Dextrose 55 ml @ 110 mls/hr Q24H IVPB 04/10/19 23:30 04/17/19 23:29 04/10/19 23:22 Chlorhexidine Gluconate (Martha-Hex 2%) 1 applic DAILY@2000 TOPIC 04/10/19 20:00 05/06/19 19:59 04/10/19 20:11 Enoxaparin Sodium (Lovenox) 30 mg DAILY SUBQ 04/10/19 09:00 05/04/19 08:59 04/11/19 09:39 Hydralazine HCl (Apresoline) 10 mg Q12HR NG 04/10/19 18:00 05/10/19 17:59 04/11/19 09:38 Hydralazine HCl (Apresoline) 10 mg Q4H PRN IV SBP > 170mmHg 04/09/19 21:00 05/08/19 20:59 Memantine (Namenda) 5 mg BID ORAL 04/10/19 09:00 05/04/19 17:59 04/11/19 09:37 Morphine Sulfate (Morphine Sulfate) 2 mg Q4H PRN IVP For Pain 04/09/19 22:00 04/16/19 21:59 04/10/19 21:37 Pantoprazole (Protonix) 40 mg DAILY IVP 04/10/19 09:00 05/08/19 08:59 04/11/19 09:37 Sertraline HCl (Zoloft) 25 mg DAILY ORAL 04/10/19 09:00 05/05/19 08:59 04/11/19 09:37 Laboratory Tests 04/11/19 04:10: White Blood Count 7.7, Red Blood Count 3.34L, Hemoglobin 9.6L, Hematocrit 28.6L , Mean Corpuscular Volume 85, Mean Corpuscular Hemoglobin 28.7, Mean Corpuscular Hemoglobin Concent 33.6, Red Cell Distribution Width 16.2H, Platelet Count 115L, Mean Platelet Volume 5.4L, Neutrophils (%) (Auto) 78.3H, Lymphocytes (%) (Auto) 8.2L, Monocytes (%) (Auto) 8.6, Eosinophils (%) (Auto) 4.2H, Basophils (%) (Auto) 0.7, Sodium Level 155H, Potassium Level 3.4L, Chloride Level 117H, Carbon Dioxide Level 30, Anion Gap 8, Blood Urea Nitrogen 28H, Creatinine 1.7H, Estimat Glomerular Filtration Rate , Glucose Level 94, Calcium Level 12.0H Height (Feet): 5 Height (Inches): 7.00 Weight (Pounds): 116 Objective exam stable guerra indwelling, allegra urine CT A/P (04/10) noted Raz Root MD Apr 11, 2019 09:44
--- NOTE | 2019-04-11 09:58 | Pulmonology Progress Note ---
Assessment/Plan Assessment/Plan IMPRESSION: 1. Status post asystolic cardiac arrest. 2. Respiratory failure, now extubated 3. Altered mental status. Improved. 4. Hypernatremia. Corrected. 5. Hypokalemia . Corrected. 6. History of COPD. 7. Prostate CA. DISCUSSION: 1. Discussed with bedside nursing. 2. Discussed also with the patient's daughter, Amy, 3. Discussed with Dr. Sawyer Toussaint. 4. On nasal o2 5. Monitor in CARMEN 6. Swallow eval ordered Ganesh Mathews M.D. Subjective Interval Events: None new Constitutional: Reports: no symptoms HEENT: Repors: no symptoms Respiratory: Reports: no symptoms Cardiovascular: Reports: no symptoms Allergies: Coded Allergies: No Known Allergies (Unverified , 04/03/19) Objective Last 24 Hour Vital Signs Date Time Temp Pulse Resp B/P (MAP) Pulse Ox O2 Delivery O2 Flow Rate FiO2 04/11/19 09:38 135/82 04/11/19 07:18 102 20 98 Nasal Cannula 2.0 28 106 20 97 04/11/19 07:17 96 Nasal Cannula 2.0 28 04/11/19 04:00 97.6 105 20 129/82 (98) 97 04/11/19 04:00 95 04/11/19 04:00 Nasal Cannula 3.0 Nasal Cannula 3.0 04/11/19 01:42 106 18 99 Nasal Cannula 2.0 28 103 18 97 04/11/19 00:00 102 04/11/19 00:00 97.6 99 20 130/80 (97) 97 04/11/19 00:00 Nasal Cannula 3.0 Nasal Cannula 3.0 04/10/19 20:00 97.2 99 20 129/69 (89) 99 04/10/19 20:00 104 04/10/19 20:00 Nasal Cannula 3.0 Nasal Cannula 3.0 04/10/19 19:07 111 16 94 Nasal Cannula 2.0 28 109 16 91 04/10/19 19:06 91 Nasal Cannula 2.0 28 04/10/19 18:07 120/82 04/10/19 16:00 Nasal Cannula 3.0 Nasal Cannula 3.0 04/10/19 16:00 110 04/10/19 16:00 97.4 107 20 120/82 (95) 97 04/10/19 12:00 Nasal Cannula 3.0 Nasal Cannula 3.0 04/10/19 12:00 97.6 110 20 146/89 (108) 97 Intake and Output 04/10/19 04/11/19 19:00 07:00 Intake Total 470 ml 175 ml Output Total 653 ml 502 ml Balance -183 ml -327 ml Intake Oral 120 ml 120 ml Free Water 250 ml IV Total 55 ml Tube Feeding 40 ml Other 60 ml Output Urine Total 650 ml 500 ml Stool Total 3 ml 2 ml # Bowel Movements 2 2 General Appearance: no acute distress HEENT: normocephalic Respiratory/Chest: chest wall non-tender, lungs clear Cardiovascular: normal peripheral pulses, normal rate Abdomen: normal bowel sounds Laboratory Tests 04/11/19 04:10: White Blood Count 7.7, Red Blood Count 3.34L, Hemoglobin 9.6L, Hematocrit 28.6L , Mean Corpuscular Volume 85, Mean Corpuscular Hemoglobin 28.7, Mean Corpuscular Hemoglobin Concent 33.6, Red Cell Distribution Width 16.2H, Platelet Count 115L, Mean Platelet Volume 5.4L, Neutrophils (%) (Auto) 78.3H, Lymphocytes (%) (Auto) 8.2L, Monocytes (%) (Auto) 8.6, Eosinophils (%) (Auto) 4.2H, Basophils (%) (Auto) 0.7, Sodium Level 155H, Potassium Level 3.4L, Chloride Level 117H, Carbon Dioxide Level 30, Anion Gap 8, Blood Urea Nitrogen 28H, Creatinine 1.7H, Estimat Glomerular Filtration Rate , Glucose Level 94, Calcium Level 12.0H Current Medications Medications (Trade) Dose Ordered Sig/La Nena Route PRN Reason Start Time Stop Time Status Last Admin Dose Admin Albuterol/ Ipratropium (Albuterol/ Ipratropium) 3 ml Q6H PRN HHN Shortness of Breath 04/09/19 21:00 04/14/19 20:59 Albuterol/ Ipratropium (Albuterol/ Ipratropium) 3 ml Q6HRT HHN 04/10/19 13:00 04/15/19 12:59 04/11/19 07:22 Barium Sulfate (Readi-Cat 2) 450 ml NOW PRN ORAL Radiology Procedure 04/10/19 08:30 04/12/19 08:21 Calcitonin [place] (Miacalcin) 1 sprays DAILY NASAL 04/10/19 13:30 05/10/19 13:29 04/11/19 09:36 Ceftriaxone Sodium 1 gm/ Dextrose 55 ml @ 110 mls/hr Q24H IVPB 04/10/19 23:30 04/17/19 23:29 04/10/19 23:22 Chlorhexidine Gluconate (Martha-Hex 2%) 1 applic DAILY@2000 TOPIC 04/10/19 20:00 05/06/19 19:59 04/10/19 20:11 Enoxaparin Sodium (Lovenox) 30 mg DAILY SUBQ 04/10/19 09:00 05/04/19 08:59 04/11/19 09:39 Hydralazine HCl (Apresoline) 10 mg Q12HR NG 04/10/19 18:00 05/10/19 17:59 04/11/19 09:38 Hydralazine HCl (Apresoline) 10 mg Q4H PRN IV SBP > 170mmHg 04/09/19 21:00 05/08/19 20:59 Memantine (Namenda) 5 mg BID ORAL 04/10/19 09:00 05/04/19 17:59 04/11/19 09:37 Morphine Sulfate (Morphine Sulfate) 2 mg Q4H PRN IVP For Pain 04/09/19 22:00 04/16/19 21:59 04/10/19 21:37 Pantoprazole (Protonix) 40 mg DAILY IVP 04/10/19 09:00 05/08/19 08:59 04/11/19 09:37 Sertraline HCl (Zoloft) 25 mg DAILY ORAL 04/10/19 09:00 05/05/19 08:59 04/11/19 09:37 Ganesh Mathews MD Apr 11, 2019 09:58
--- NOTE | 2019-04-11 10:33 | Infectious Diseases Prog Note ---
Assessment/Plan Assessment/Plan Assessment: s/p asystole cardiac arrest 04/06 VDRF; s/p extubation 04/08 Shock, off pressors now Sepsis UTI B/l hydroureteronephrosis -04/10 CT abd/p: Evidence of advanced metastatic neoplasm likely secondary to prostate carcinoma. Extensive retroperitoneal and pelvic lymphadenopathy complicated by presence of bilateral hydroureteronephrosis. Extensive metastatic disease involving the bones also noted. Small left pleural effusion. Right trace right pleural effusion. Right inguinal hernia containing a small amount of fluid. Alternatively this could represent part of the testis. Anasarca. -u/a wbc 20-30, nit +, leuk +3; ucx >100k E.coli (R amp, bactrim; otherwise S) Probable Aspiration pneumonitis vs PNA -04/08 CXR: Patchy perihilar disease which may be asymmetric interstitial edema or infiltrate unchanged. Interval resolution of right basal atelectasis. -04/07 sp cx normal sharyn(prelim) Afebrile Mild leukocytosis, recurrent- SP -04/07 Bcx NTD u/a wbc tnct, nit neg, leuk +; ucx p -04/06 CXR: Interval resolution of right apical density. This suggests the diagnosis was atelectasis rather than an apical cap from blood, which was suggested as a possibility on the prior report. The right upper lobe atelectasis has resolved. Suspicion of new atelectasis at the right lung base. s/p recent fall LETA Hypokalemia prostate CA stage IV, mets to bone chronic indwelling guerra catheter Plan: - cont Ceftriaxone # 2 for E.coli UTI (abx d #/) - 04/10 Sp ic ZOsyn #4 -/6 SP IV Vancomycin #3 -/4 SP Ceftriaxone #4 -f/u cx -Monitor CBC/CMP, temperatures -aspiration precautions -Cards, renal, Uro, pulm f/u Thank you for this consultation. Will continue to follow along with you. Discussed with RN Subjective Allergies: Coded Allergies: No Known Allergies (Unverified , 04/03/19) Subjective comfortable Objective Vital Signs Last 24 Hour Vital Signs Date Time Temp Pulse Resp B/P (MAP) Pulse Ox O2 Delivery O2 Flow Rate FiO2 04/11/19 09:38 135/82 04/11/19 07:18 102 20 98 Nasal Cannula 2.0 28 106 20 97 04/11/19 07:17 96 Nasal Cannula 2.0 28 04/11/19 04:00 97.6 105 20 129/82 (98) 97 04/11/19 04:00 95 04/11/19 04:00 Nasal Cannula 3.0 Nasal Cannula 3.0 04/11/19 01:42 106 18 99 Nasal Cannula 2.0 28 103 18 97 04/11/19 00:00 102 04/11/19 00:00 97.6 99 20 130/80 (97) 97 04/11/19 00:00 Nasal Cannula 3.0 Nasal Cannula 3.0 04/10/19 20:00 97.2 99 20 129/69 (89) 99 04/10/19 20:00 104 04/10/19 20:00 Nasal Cannula 3.0 Nasal Cannula 3.0 04/10/19 19:07 111 16 94 Nasal Cannula 2.0 28 109 16 91 04/10/19 19:06 91 Nasal Cannula 2.0 28 04/10/19 18:07 120/82 04/10/19 16:00 Nasal Cannula 3.0 Nasal Cannula 3.0 04/10/19 16:00 110 04/10/19 16:00 97.4 107 20 120/82 (95) 97 04/10/19 12:00 Nasal Cannula 3.0 Nasal Cannula 3.0 04/10/19 12:00 97.6 110 20 146/89 (108) 97 Height (Feet): 5 Height (Inches): 7.00 Weight (Pounds): 116 Respiratory/Chest: normal breath sounds Cardiovascular: regular rhythm Abdomen: no organomegaly Laboratory Tests Test 04/11/19 04:10 White Blood Count 7.7 K/UL (4.8-10.8) Red Blood Count 3.34 M/UL (4.70-6.10) L Hemoglobin 9.6 G/DL (14.2-18.0) L Hematocrit 28.6 % (42.0-52.0) L Mean Corpuscular Volume 85 FL (80-99) Mean Corpuscular Hemoglobin 28.7 PG (27.0-31.0) Mean Corpuscular Hemoglobin Concent 33.6 G/DL (32.0-36.0) Red Cell Distribution Width 16.2 % (11.6-14.8) H Platelet Count 115 K/UL (150-450) L Mean Platelet Volume 5.4 FL (6.5-10.1) L Neutrophils (%) (Auto) 78.3 % (45.0-75.0) H Lymphocytes (%) (Auto) 8.2 % (20.0-45.0) L Monocytes (%) (Auto) 8.6 % (1.0-10.0) Eosinophils (%) (Auto) 4.2 % (0.0-3.0) H Basophils (%) (Auto) 0.7 % (0.0-2.0) Sodium Level 155 MMOL/L (136-145) H Potassium Level 3.4 MMOL/L (3.5-5.1) L Chloride Level 117 MMOL/L (98-107) H Carbon Dioxide Level 30 MMOL/L (21-32) Anion Gap 8 mmol/L (5-15) Blood Urea Nitrogen 28 mg/dL (7-18) H Creatinine 1.7 MG/DL (0.55-1.30) H Estimat Glomerular Filtration Rate mL/min (>60) Glucose Level 94 MG/DL (74-106) Calcium Level 12.0 MG/DL (8.5-10.1) H Current Medications Medications (Trade) Dose Ordered Sig/[place]ena Route PRN Reason Start Time Stop Time Status Last Admin Dose Admin Albuterol/ Ipratropium (Albuterol/ Ipratropium) 3 ml Q6H PRN HHN Shortness of Breath 04/09/19 21:00 04/14/19 20:59 Albuterol/ Ipratropium (Albuterol/ Ipratropium) 3 ml Q6HRT HHN 04/10/19 13:00 04/15/19 12:59 04/11/19 07:22 Barium Sulfate (Readi-Cat 2) 450 ml NOW PRN ORAL Radiology Procedure 04/10/19 08:30 04/12/19 08:21 Calcitonin [place] (Miacalcin) 1 sprays DAILY NASAL 04/10/19 13:30 05/10/19 13:29 04/11/19 09:36 Ceftriaxone Sodium 1 gm/ Dextrose 55 ml @ 110 mls/hr Q24H IVPB 04/10/19 23:30 04/17/19 23:29 04/10/19 23:22 Chlorhexidine Gluconate (Martha-Hex 2%) 1 applic DAILY@2000 TOPIC 04/10/19 20:00 05/06/19 19:59 04/10/19 20:11 Enoxaparin Sodium (Lovenox) 30 mg DAILY SUBQ 04/10/19 09:00 05/04/19 08:59 04/11/19 09:39 Hydralazine HCl (Apresoline) 10 mg Q12HR NG 04/10/19 18:00 05/10/19 17:59 04/11/19 09:38 Hydralazine HCl (Apresoline) 10 mg Q4H PRN IV SBP > 170mmHg 04/09/19 21:00 05/08/19 20:59 Memantine (Namenda) 5 mg BID ORAL 04/10/19 09:00 05/04/19 17:59 04/11/19 09:37 Morphine Sulfate (Morphine Sulfate) 2 mg Q4H PRN IVP For Pain 04/09/19 22:00 04/16/19 21:59 04/10/19 21:37 Pantoprazole (Protonix) 40 mg DAILY IVP 04/10/19 09:00 05/08/19 08:59 04/11/19 09:37 Sertraline HCl (Zoloft) 25 mg DAILY ORAL 04/10/19 09:00 05/05/19 08:59 04/11/19 09:37 Bryce Osorio MD Apr 11, 2019 10:33
[2019-04-11 12:00] VITALS: BP 139/85
--- NOTE | 2019-04-11 12:42 | Nephrology Progress Note ---
Assessment/Plan Status: stable, progressing Assessment/Plan: A/P 1. LETA. secondary to dehydration from hypercalcemia/ischemic ATN post arrest - Cr down to 1.7 2. Prostate cancer with tremendously elevated PSA 800 Defer to Hematology/Oncology. 3. Hypokalemia. corrected 4. Sepsis and UTI per Infectious Disease. 5. Hypernatremia- added free water 6. S/P Cardiac Arrest- extubated 7- Hypercalcemia of malignancy- Restarted Calcitonin Subjective Date patient seen: Apr 11, 2019 Time patient seen: 12:41 ROS Limited/Unobtainable: No Allergies: Coded Allergies: No Known Allergies (Unverified , 04/03/19) Subjective Patient with NG out Objective Last 24 Hour Vital Signs Date Time Temp Pulse Resp B/P (MAP) Pulse Ox O2 Delivery O2 Flow Rate FiO2 04/11/19 12:00 Nasal Cannula 3.0 Nasal Cannula 3.0 04/11/19 12:00 97.6 108 20 139/85 (103) 94 04/11/19 09:38 135/82 04/11/19 08:00 97.8 101 20 135/82 (99) 94 04/11/19 08:00 105 04/11/19 08:00 Nasal Cannula 3.0 Nasal Cannula 3.0 04/11/19 07:18 102 20 98 Nasal Cannula 2.0 28 106 20 97 04/11/19 07:17 96 Nasal Cannula 2.0 28 04/11/19 04:00 97.6 105 20 129/82 (98) 97 04/11/19 04:00 95 04/11/19 04:00 Nasal Cannula 3.0 Nasal Cannula 3.0 04/11/19 01:42 106 18 99 Nasal Cannula 2.0 28 103 18 97 04/11/19 00:00 102 04/11/19 00:00 97.6 99 20 130/80 (97) 97 04/11/19 00:00 Nasal Cannula 3.0 Nasal Cannula 3.0 04/10/19 20:00 97.2 99 20 129/69 (89) 99 04/10/19 20:00 104 04/10/19 20:00 Nasal Cannula 3.0 Nasal Cannula 3.0 04/10/19 19:07 111 16 94 Nasal Cannula 2.0 28 109 16 91 04/10/19 19:06 91 Nasal Cannula 2.0 28 04/10/19 18:07 120/82 04/10/19 16:00 Nasal Cannula 3.0 Nasal Cannula 3.0 04/10/19 16:00 110 04/10/19 16:00 97.4 107 20 120/82 (95) 97 Intake and Output 04/10/19 04/11/19 19:00 07:00 Intake Total 470 ml 175 ml Output Total 653 ml 502 ml Balance -183 ml -327 ml Intake Oral 120 ml 120 ml Free Water 250 ml IV Total 55 ml Tube Feeding 40 ml Other 60 ml Output Urine Total 650 ml 500 ml Stool Total 3 ml 2 ml # Bowel Movements 2 2 Laboratory Tests 04/11/19 04:10: White Blood Count 7.7, Red Blood Count 3.34L, Hemoglobin 9.6L, Hematocrit 28.6L , Mean Corpuscular Volume 85, Mean Corpuscular Hemoglobin 28.7, Mean Corpuscular Hemoglobin Concent 33.6, Red Cell Distribution Width 16.2H, Platelet Count 115L, Mean Platelet Volume 5.4L, Neutrophils (%) (Auto) 78.3H, Lymphocytes (%) (Auto) 8.2L, Monocytes (%) (Auto) 8.6, Eosinophils (%) (Auto) 4.2H, Basophils (%) (Auto) 0.7, Sodium Level 155H, Potassium Level 3.4L, Chloride Level 117H, Carbon Dioxide Level 30, Anion Gap 8, Blood Urea Nitrogen 28H, Creatinine 1.7H, Estimat Glomerular Filtration Rate , Glucose Level 94, Calcium Level 12.0H Height (Feet): 5 Height (Inches): 7.00 Weight (Pounds): 116 General Appearance: no apparent distress EENT: normal ENT inspection Neck: normal alignment Cardiovascular: normal rate, regular rhythm Respiratory/Chest: rhonchi - bilaterally Abdomen: non tender, soft Edema: no edema noted Arm (L), no edema noted Arm (R), no edema noted Leg (L), no edema noted Leg (R), no edema noted Pedal (L), no edema noted Pedal (R), no edema noted Generalized Carlos White MD Apr 11, 2019 12:42
--- NOTE | 2019-04-11 14:15 | Cardiac Electrophysiology PN ---
Assessment/Plan Assessment/Plan 1. Status post noninfarctional bradycardic arrest with asystole. No evidence of ventricular tachycardia or ventricular fibrillation. Could be secondary to respiratory arrest. Clonidine was discontinued. EF 65%. No further juan antonio episodes. All 3 troponins were less than 0.1 2. S/P Respiratory failure, extubated 04/08/19 3. History of stage III prostate cancer, followed by Dr. Monroy and Dr Root. Morales was changed. Follows up usually at [facility] 4. Hypotension. Off Levophed on iv Abx. On prn iv hydralazine 5. Hypercalcemia due to prostate cancer. 6. Hypernatremia. On IV fluids. 7. Anemia, s/p PRBC 04/08/19 MIKE RN Subjective Subjective S/P PRBC. In SR. Morales was changed. On puree diet S/P CT abdomen by Dr Root Objective Last 24 Hour Vital Signs Date Time Temp Pulse Resp B/P (MAP) Pulse Ox O2 Delivery O2 Flow Rate FiO2 04/11/19 12:50 108 20 98 Nasal Cannula 2.0 28 111 20 96 04/11/19 12:00 116 04/11/19 12:00 Nasal Cannula 3.0 Nasal Cannula 3.0 04/11/19 12:00 97.6 108 20 139/85 (103) 94 04/11/19 09:38 135/82 04/11/19 08:00 97.8 101 20 135/82 (99) 94 04/11/19 08:00 105 04/11/19 08:00 Nasal Cannula 3.0 Nasal Cannula 3.0 04/11/19 07:18 102 20 98 Nasal Cannula 2.0 28 106 20 97 04/11/19 07:17 96 Nasal Cannula 2.0 28 04/11/19 04:00 97.6 105 20 129/82 (98) 97 04/11/19 04:00 95 04/11/19 04:00 Nasal Cannula 3.0 Nasal Cannula 3.0 04/11/19 01:42 106 18 99 Nasal Cannula 2.0 28 103 18 97 04/11/19 00:00 102 04/11/19 00:00 97.6 99 20 130/80 (97) 97 04/11/19 00:00 Nasal Cannula 3.0 Nasal Cannula 3.0 04/10/19 20:00 97.2 99 20 129/69 (89) 99 04/10/19 20:00 104 04/10/19 20:00 Nasal Cannula 3.0 Nasal Cannula 3.0 04/10/19 19:07 111 16 94 Nasal Cannula 2.0 28 109 16 91 04/10/19 19:06 91 Nasal Cannula 2.0 28 04/10/19 18:07 120/82 04/10/19 16:00 Nasal Cannula 3.0 Nasal Cannula 3.0 04/10/19 16:00 110 04/10/19 16:00 97.4 107 20 120/82 (95) 97 Intake and Output 04/10/19 04/11/19 19:00 07:00 Intake Total 470 ml 175 ml Output Total 653 ml 502 ml Balance -183 ml -327 ml Intake Oral 120 ml 120 ml Free Water 250 ml IV Total 55 ml Tube Feeding 40 ml Other 60 ml Output Urine Total 650 ml 500 ml Stool Total 3 ml 2 ml # Bowel Movements 2 2 Laboratory Tests Test 04/11/19 04:10 White Blood Count 7.7 K/UL (4.8-10.8) Red Blood Count 3.34 M/UL (4.70-6.10) L Hemoglobin 9.6 G/DL (14.2-18.0) L Hematocrit 28.6 % (42.0-52.0) L Mean Corpuscular Volume 85 FL (80-99) Mean Corpuscular Hemoglobin 28.7 PG (27.0-31.0) Mean Corpuscular Hemoglobin Concent 33.6 G/DL (32.0-36.0) Red Cell Distribution Width 16.2 % (11.6-14.8) H Platelet Count 115 K/UL (150-450) L Mean Platelet Volume 5.4 FL (6.5-10.1) L Neutrophils (%) (Auto) 78.3 % (45.0-75.0) H Lymphocytes (%) (Auto) 8.2 % (20.0-45.0) L Monocytes (%) (Auto) 8.6 % (1.0-10.0) Eosinophils (%) (Auto) 4.2 % (0.0-3.0) H Basophils (%) (Auto) 0.7 % (0.0-2.0) Sodium Level 155 MMOL/L (136-145) H Potassium Level 3.4 MMOL/L (3.5-5.1) L Chloride Level 117 MMOL/L (98-107) H Carbon Dioxide Level 30 MMOL/L (21-32) Anion Gap 8 mmol/L (5-15) Blood Urea Nitrogen 28 mg/dL (7-18) H Creatinine 1.7 MG/DL (0.55-1.30) H Estimat Glomerular Filtration Rate mL/min (>60) Glucose Level 94 MG/DL (74-106) Calcium Level 12.0 MG/DL (8.5-10.1) H Objective HEENT: No JVD with NG tube in LUNGS: Coarse rhonchi. CARDIOVASCULAR: Regular S1 and S2 and tachycardic. ABDOMEN: Soft and nondistended. EXTREMITIES: No pitting edema. Nain Cortez MD Apr 11, 2019 14:15
[2019-04-11 16:00] VITALS: BP 134/86
--- NOTE | 2019-04-11 19:05 | NUR ---
NURSE NOTES: Report received from BLANCA Dalton. Observed pt sleeping in the bed, arousable by voice. A/O x2, denies any pain at this time. ST on iron caster with HR of 115 noted. On 3L NC, with no SOB. F/C intact and draining to gravity. L W 22G, SL. L FA 22G, SL. Bed in the lowest position. Call light within reach. Will continue to monitor.
--- NOTE | 2019-04-11 19:15 | NUR ---
HAND-OFF: Report given to BLANCA Nina. Patient in stable condition.
[2019-04-11 20:00] VITALS: BP 144/85
[2019-04-11] MEDS: Dyna-Hex 2% Top Sol 2oz TOPIC SCH (20:28)
--- NOTE | 2019-04-11 21:15 | Progress Note ---
DATE: 04/11/2019 SUBJECTIVE: This is a 73-year-old male patient with generalized weakness. This patient is very confused, disorganized. Mood labile. Currently no logical plan for his own self-care. MENTAL STATUS EXAMINATION: A 73-year-old male. Appearance is disheveled. Attitude, irritable and agitated. Affect, guarded and restricted. Intellect poor. Mood, depressed and anxious. Motor activity, psychomotor agitation. Attention span is poor. Orientation x2. Speech is low volume, slurred. Thought process, disorganized and illogical. Insight and judgment is poor. DIAGNOSIS: Major depressive disorder, severe, recurrent with psychotic features rule out dementia with psychosis. PLAN: Continue the patient with Zoloft 25 mg a day and Namenda 5 mg twice a day. A 20 minutes of cognitive behavioral therapy to help identify his automatic negative thoughts and help convert negative thoughts to more positive thoughts to reduce depression, anxiety, and suicidality. Chart reviewed. Discussed with staff. Seen and assessed at bedside. . Cherise Palma M.D. DR: SAMIRA JOB#: [id number] CC:
[2019-04-11] MEDS: cefTRIAXone 1 GM in D5W 55 ML IVPB SCH (23:08)
[2019-04-12] VITALS: BP 148/90
[2019-04-12] MEDS: Albuterol/Ipratropium 3ml neb HHN SCH ×4 (01:09→19:52)
--- NOTE | 2019-04-12 02:07 | NUR ---
NURSE NOTES: Pt is confused and tried to get out of bed. Bed in the lowest position, alarm and brakes on, side rails up x3. Reorientation done but need reinforcement. Bed bath given. BM x1, moderate, soft, brown stool noted. Reposition done q2hr. Will continue to monitor.
[2019-04-12 04:00] VITALS: BP 151/89
--- NOTE | 2019-04-12 05:09 | NUR ---
NURSE NOTES: pt sleeping in the bed, calm and comfortable. No distress noted at this time. Will continue to monitor.
[2019-04-12 05:44] LABS: BASOPHILS % (AUTO) 0.7 % (0.0-2.0); EOSINOPHILS % (AUTO) 3.4 % (0.0-3.0); HEMATOCRIT 32.9 % (42.0-52.0); LYMPHOCYTES % (AUTO) 7.7 % (20.0-45.0); MEAN CORPUSCULAR VOLUME 86 FL (80-99); MONOCYTES % (AUTO) 7.1 % (1.0-10.0); NEUTROPHILS % (AUTO) 81.1 % (45.0-75.0); PLATELET COUNT 118 K/UL (150-450); RED BLOOD COUNT 3.84 M/UL (4.70-6.10); WHITE BLOOD COUNT 10.7 K/UL (4.8-10.8)
[2019-04-12 06:39] LABS: ANION GAP 8 mmol/L (5-15); BLOOD UREA NITROGEN 25 mg/dL (7-18); CALCIUM 12.8 MG/DL (8.5-10.1); CARBON DIOXIDE 31 MMOL/L (21-32); CHLORIDE 119 MMOL/L (98-107); CREATININE 1.5 MG/DL (0.55-1.30); POTASSIUM 3.2 MMOL/L (3.5-5.1); SODIUM 158 MMOL/L (136-145)
--- NOTE | 2019-04-12 07:25 | NUR ---
HAND-OFF: Report given to Xiomy Almeida RN. No distress noted at this time.
--- NOTE | 2019-04-12 07:30 | NUR ---
NURSE NOTES: Report received from Valeri Polo RN.Pt resting quietly in bed asleep noted no resp distress on 3LNC no signs of pain or discomfort,S-Tach on the monitor,Morales cath draining yellow urine,skin warm and dry IV heplock site to LT Wrist and LFA intact,SR up x2 HOB elevated,bed lock in lowest position will continue with plans of care.
[2019-04-12 08:00] VITALS: BP 127/84
--- NOTE | 2019-04-12 08:59 | General Progress Note ---
Assessment/Plan Status: stable, progressing Assessment/Plan: Assessment/Plan Problems: (1) Coffee ground emesis ICD Codes: K92.0 - Hematemesis SNOMED: 09754769 (2) Anemia ICD Codes: D64.9 - Anemia, unspecified SNOMED: 542532704 Status: unchanged Assessment/Plan This is a 73-year-old male, status post Code Blue with coffee-grounds emesis, tachycardia, anemia. Protonix 40 mg q.12. F/U OB stool>>>neg>>> will hold GI procedures for now prn transfusions maintain above 7 speech eval>>> on puree diet now will follow Subjective ROS Limited/Unobtainable: No Allergies: Coded Allergies: No Known Allergies (Unverified , 04/03/19) Objective Last 24 Hour Vital Signs Date Time Temp Pulse Resp B/P (MAP) Pulse Ox O2 Delivery O2 Flow Rate FiO2 04/12/19 08:00 98.0 110 18 127/84 (98) 100 04/12/19 07:11 130 26 95 Nasal Cannula 2.0 28 111 24 97 04/12/19 07:01 97 Nasal Cannula 2.0 28 04/12/19 04:00 Nasal Cannula 3.0 Nasal Cannula 3.0 04/12/19 04:00 106 04/12/19 04:00 97.6 115 20 151/89 (109) 100 04/12/19 01:10 120 18 97 Nasal Cannula 2.0 28 117 18 93 04/12/19 00:00 Nasal Cannula 3.0 Nasal Cannula 3.0 04/12/19 00:00 110 04/12/19 00:00 97.5 114 22 148/90 (109) 100 04/11/19 20:28 144/85 04/11/19 20:00 97.7 120 24 144/85 (104) 95 04/11/19 20:00 Nasal Cannula 3.0 Nasal Cannula 3.0 04/11/19 20:00 117 04/11/19 18:53 118 18 96 Nasal Cannula 2.0 28 116 18 92 04/11/19 18:52 92 Nasal Cannula 2.0 28 04/11/19 16:00 Nasal Cannula 3.0 Nasal Cannula 3.0 04/11/19 16:00 97.6 116 20 134/86 (102) 92 04/11/19 16:00 118 04/11/19 12:50 108 20 98 Nasal Cannula 2.0 28 111 20 96 04/11/19 12:00 116 04/11/19 12:00 Nasal Cannula 3.0 Nasal Cannula 3.0 04/11/19 12:00 97.6 108 20 139/85 (103) 94 04/11/19 09:38 135/82 Intake and Output 04/11/19 04/12/19 19:00 07:00 Intake Total 120 ml 175 ml Output Total 502 ml 351 ml Balance -382 ml -176 ml Intake Oral 120 ml 120 ml IV Total 55 ml Output Urine Total 500 ml 350 ml Stool Total 2 ml 1 ml # Bowel Movements 2 Laboratory Tests 04/12/19 04:00: White Blood Count 10.7, Red Blood Count 3.84L, Hemoglobin 11.0L, Hematocrit 32.9L, Mean Corpuscular Volume 86, Mean Corpuscular Hemoglobin 28.6, Mean Corpuscular Hemoglobin Concent 33.4, Red Cell Distribution Width 16.0H, Platelet Count 118L, Mean Platelet Volume 5.1L, Neutrophils (%) (Auto) 81.1H, Lymphocytes (%) (Auto) 7.7L, Monocytes (%) (Auto) 7.1, Eosinophils (%) (Auto) 3.4H, Basophils (%) (Auto) 0.7, Sodium Level 158H, Potassium Level 3.2L, Chloride Level 119H, Carbon Dioxide Level 31, Anion Gap 8, Blood Urea Nitrogen 25H, Creatinine 1.5H, Estimat Glomerular Filtration Rate , Glucose Level 94, Calcium Level 12.8H Height (Feet): 5 Height (Inches): 7.00 Weight (Pounds): 131 General Appearance: lethargic EENT: normal ENT inspection Neck: supple Cardiovascular: normal rate Respiratory/Chest: decreased breath sounds Abdomen: normal bowel sounds, non tender, soft Extremities: non-tender Tyrone Lamb MD Apr 12, 2019 08:59
--- NOTE | 2019-04-12 09:01 | General Progress Note ---
Assessment/Plan Problem List: (1) UTI (urinary tract infection) ICD Codes: N39.0 - Urinary tract infection, site not specified SNOMED: 38216965 (2) Weak ICD Codes: R53.1 - Weakness SNOMED: 41112497 (3) Anemia ICD Codes: D64.9 - Anemia, unspecified SNOMED: 392195532 (4) Dehydration ICD Codes: E86.0 - Dehydration SNOMED: 18493843, 20830987 (5) Episode of generalized weakness ICD Codes: R53.1 - Weakness SNOMED: 81061442 (6) Stage III adenocarcinoma of prostate ICD Codes: C61 - Malignant neoplasm of prostate SNOMED: 760275751, 22235335 Status: stable, progressing Assessment/Plan: wean vent pt diet abx iv fluid heme gi eval cbc bmp am dc plan w hh Subjective Constitutional: Reports: weakness Allergies: Coded Allergies: No Known Allergies (Unverified , 04/03/19) All Systems: reviewed and negative except above Subjective o2nc sleep Objective Last 24 Hour Vital Signs Date Time Temp Pulse Resp B/P (MAP) Pulse Ox O2 Delivery O2 Flow Rate FiO2 04/12/19 08:00 98.0 110 18 127/84 (98) 100 04/12/19 07:11 130 26 95 Nasal Cannula 2.0 28 111 24 97 04/12/19 07:01 97 Nasal Cannula 2.0 28 04/12/19 04:00 Nasal Cannula 3.0 Nasal Cannula 3.0 04/12/19 04:00 106 04/12/19 04:00 97.6 115 20 151/89 (109) 100 04/12/19 01:10 120 18 97 Nasal Cannula 2.0 28 117 18 93 04/12/19 00:00 Nasal Cannula 3.0 Nasal Cannula 3.0 04/12/19 00:00 110 04/12/19 00:00 97.5 114 22 148/90 (109) 100 04/11/19 20:28 144/85 04/11/19 20:00 97.7 120 24 144/85 (104) 95 04/11/19 20:00 Nasal Cannula 3.0 Nasal Cannula 3.0 04/11/19 20:00 117 04/11/19 18:53 118 18 96 Nasal Cannula 2.0 28 116 18 92 04/11/19 18:52 92 Nasal Cannula 2.0 28 04/11/19 16:00 Nasal Cannula 3.0 Nasal Cannula 3.0 04/11/19 16:00 97.6 116 20 134/86 (102) 92 04/11/19 16:00 118 04/11/19 12:50 108 20 98 Nasal Cannula 2.0 28 111 20 96 04/11/19 12:00 116 04/11/19 12:00 Nasal Cannula 3.0 Nasal Cannula 3.0 04/11/19 12:00 97.6 108 20 139/85 (103) 94 04/11/19 09:38 135/82 Intake and Output 04/11/19 04/12/19 19:00 07:00 Intake Total 120 ml 175 ml Output Total 502 ml 351 ml Balance -382 ml -176 ml Intake Oral 120 ml 120 ml IV Total 55 ml Output Urine Total 500 ml 350 ml Stool Total 2 ml 1 ml # Bowel Movements 2 Laboratory Tests 04/12/19 04:00: White Blood Count 10.7, Red Blood Count 3.84L, Hemoglobin 11.0L, Hematocrit 32.9L, Mean Corpuscular Volume 86, Mean Corpuscular Hemoglobin 28.6, Mean Corpuscular Hemoglobin Concent 33.4, Red Cell Distribution Width 16.0H, Platelet Count 118L, Mean Platelet Volume 5.1L, Neutrophils (%) (Auto) 81.1H, Lymphocytes (%) (Auto) 7.7L, Monocytes (%) (Auto) 7.1, Eosinophils (%) (Auto) 3.4H, Basophils (%) (Auto) 0.7, Sodium Level 158H, Potassium Level 3.2L, Chloride Level 119H, Carbon Dioxide Level 31, Anion Gap 8, Blood Urea Nitrogen 25H, Creatinine 1.5H, Estimat Glomerular Filtration Rate , Glucose Level 94, Calcium Level 12.8H Height (Feet): 5 Height (Inches): 7.00 Weight (Pounds): 131 General Appearance: lethargic EENT: normal ENT inspection Neck: normal alignment Cardiovascular: normal peripheral pulses, normal rate, regular rhythm Respiratory/Chest: chest wall non-tender, lungs clear Abdomen: normal bowel sounds, non tender, soft Extremities: normal inspection Edema: no edema noted Arm (L), no edema noted Arm (R), no edema noted Leg (L), no edema noted Leg (R), no edema noted Pedal (L), no edema noted Pedal (R), no edema noted Generalized Neurologic: motor weakness Skin: normal pigmentation, warm/dry Sawyer Toussaint DO Apr 12, 2019 09:01
--- NOTE | 2019-04-12 09:04 | Urology Progress Note ---
Assessment/Plan Status: stable, progressing Assessment/Plan: 1. 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 2. Urinary retention. 3. Acute kidney injury. 4. Hydronephrosis, likely chronic. 5. Proteinuria. 6. UTI and colonization. 7. Hematuria. monitor clinically maintain guerra hand irrigated and do PRN position is satisfactory monitor renal fxn likely obst of bilateral distal ureters secondary to advanced prostate ca will need to see how aggressive pt and family want to be renal fxn will likely improve with un-obstruction of kidneys not sure if ureteral stents would work well nephrostomies may be more feasible f/u on last blood cx Subjective Allergies: Coded Allergies: No Known Allergies (Unverified , 04/03/19) Subjective all noted, a bit more alert, no guerra leakage Objective Last 24 Hour Vital Signs Date Time Temp Pulse Resp B/P (MAP) Pulse Ox O2 Delivery O2 Flow Rate FiO2 04/12/19 08:00 98.0 110 18 127/84 (98) 100 04/12/19 07:11 130 26 95 Nasal Cannula 2.0 28 111 24 97 04/12/19 07:01 97 Nasal Cannula 2.0 28 04/12/19 04:00 Nasal Cannula 3.0 Nasal Cannula 3.0 04/12/19 04:00 106 04/12/19 04:00 97.6 115 20 151/89 (109) 100 04/12/19 01:10 120 18 97 Nasal Cannula 2.0 28 117 18 93 04/12/19 00:00 Nasal Cannula 3.0 Nasal Cannula 3.0 04/12/19 00:00 110 04/12/19 00:00 97.5 114 22 148/90 (109) 100 04/11/19 20:28 144/85 04/11/19 20:00 97.7 120 24 144/85 (104) 95 04/11/19 20:00 Nasal Cannula 3.0 Nasal Cannula 3.0 04/11/19 20:00 117 04/11/19 18:53 118 18 96 Nasal Cannula 2.0 28 116 18 92 04/11/19 18:52 92 Nasal Cannula 2.0 28 04/11/19 16:00 Nasal Cannula 3.0 Nasal Cannula 3.0 04/11/19 16:00 97.6 116 20 134/86 (102) 92 04/11/19 16:00 118 04/11/19 12:50 108 20 98 Nasal Cannula 2.0 28 111 20 96 04/11/19 12:00 116 04/11/19 12:00 Nasal Cannula 3.0 Nasal Cannula 3.0 04/11/19 12:00 97.6 108 20 139/85 (103) 94 04/11/19 09:38 135/82 Intake and Output 04/11/19 04/12/19 19:00 07:00 Intake Total 120 ml 175 ml Output Total 502 ml 351 ml Balance -382 ml -176 ml Intake Oral 120 ml 120 ml IV Total 55 ml Output Urine Total 500 ml 350 ml Stool Total 2 ml 1 ml # Bowel Movements 2 Microbiology Date/Time Source Procedure Growth Status 04/07/19 09:30 Blood Blood Culture - Preliminary NO GROWTH AFTER 4 DAYS Resulted 04/07/19 09:30 Sputum Induced Gram Stain - Final Complete 04/07/19 09:30 Sputum Induced Sputum Culture - Final NORMAL UPPER RESPIRATORY DAVID PRESENT Complete 04/07/19 09:50 Urine,Clean Catch Urine Culture - Final NO GROWTH AFTER 48 HOURS Complete Current Medications Medications (Trade) Dose Ordered Sig/[place] Route PRN Reason Start Time Stop Time Status Last Admin Dose Admin Albuterol/ Ipratropium (Albuterol/ Ipratropium) 3 ml Q6H PRN HHN Shortness of Breath 04/09/19 21:00 04/14/19 20:59 Albuterol/ Ipratropium (Albuterol/ Ipratropium) 3 ml Q6HRT HHN 04/10/19 13:00 04/15/19 12:59 04/12/19 07:01 Calcitonin [place] (Miacalcin) 1 sprays DAILY NASAL 04/10/19 13:30 05/10/19 13:29 04/11/19 09:36 Ceftriaxone Sodium 1 gm/ Dextrose 55 ml @ 110 mls/hr Q24H IVPB 04/10/19 23:30 04/17/19 23:29 04/11/19 23:08 Chlorhexidine Gluconate (Martha-Hex 2%) 1 applic DAILY@2000 TOPIC 04/10/19 20:00 05/06/19 19:59 04/11/19 20:28 Enoxaparin Sodium (Lovenox) 30 mg DAILY SUBQ 04/10/19 09:00 05/04/19 08:59 04/11/19 09:39 Hydralazine HCl (Apresoline) 10 mg Q12HR NG 04/10/19 18:00 05/10/19 17:59 04/11/19 20:28 Hydralazine HCl (Apresoline) 10 mg Q4H PRN IV SBP > 170mmHg 04/09/19 21:00 05/08/19 20:59 Memantine (Namenda) 5 mg BID ORAL 04/10/19 09:00 05/04/19 17:59 04/11/19 17:46 Morphine Sulfate (Morphine Sulfate) 2 mg Q4H PRN IVP For Pain 04/09/19 22:00 04/16/19 21:59 04/10/19 21:37 Pantoprazole (Protonix) 40 mg DAILY IVP 04/10/19 09:00 05/08/19 08:59 04/11/19 09:37 Sertraline HCl (Zoloft) 25 mg DAILY ORAL 04/10/19 09:00 05/05/19 08:59 04/11/19 09:37 Laboratory Tests 04/12/19 04:00: White Blood Count 10.7, Red Blood Count 3.84L, Hemoglobin 11.0L, Hematocrit 32.9L, Mean Corpuscular Volume 86, Mean Corpuscular Hemoglobin 28.6, Mean Corpuscular Hemoglobin Concent 33.4, Red Cell Distribution Width 16.0H, Platelet Count 118L, Mean Platelet Volume 5.1L, Neutrophils (%) (Auto) 81.1H, Lymphocytes (%) (Auto) 7.7L, Monocytes (%) (Auto) 7.1, Eosinophils (%) (Auto) 3.4H, Basophils (%) (Auto) 0.7, Sodium Level 158H, Potassium Level 3.2L, Chloride Level 119H, Carbon Dioxide Level 31, Anion Gap 8, Blood Urea Nitrogen 25H, Creatinine 1.5H, Estimat Glomerular Filtration Rate , Glucose Level 94, Calcium Level 12.8H Height (Feet): 5 Height (Inches): 7.00 Weight (Pounds): 131 Objective exam stable guerra indwelling, allegra urine CT A/P (04/10) noted Raz Root MD Apr 12, 2019 09:04
[2019-04-12] MEDS: Memantine 5 MG TAB ORAL SCH ×2 (09:24→17:21)
[2019-04-12] MEDS: Pantoprazole Inj IVP SCH (09:24)
[2019-04-12] MEDS: HydrALAZINE 10mg Tab NG SCH ×2 (09:24→20:37)
[2019-04-12] MEDS: Sertraline 50mg tab ORAL SCH (09:24)
[2019-04-12] MEDS: Enoxaparin 30mg Inj SUBQ SCH (09:26)
--- NOTE | 2019-04-12 09:30 | NUR ---
NURSE NOTES: Dr Toussaint at bedside,with orders for binder caser for discharge planning to home with [facility].
--- NOTE | 2019-04-12 11:42 | Pulmonology Progress Note ---
Assessment/Plan Assessment/Plan IMPRESSION: 1. Status post asystolic cardiac arrest. 2. Respiratory failure, now extubated 3. Altered mental status. Improved. 4. Hypernatremia. Corrected. 5. Hypokalemia . Corrected. 6. History of COPD. 7. Prostate CA. DISCUSSION: 1. Discussed with bedside nursing. 2. Discussed also with the patient's daughter, Amy, 3. Discussed with Dr. Sawyer Toussaint. 4. On nasal o2 5. Monitor in [place] 6. Swallow eval noted; on PO diet now Ganesh Mathews M.D. Subjective Interval Events: None new Constitutional: Reports: no symptoms HEENT: Repors: no symptoms Respiratory: Reports: no symptoms Cardiovascular: Reports: no symptoms Gastrointestinal/Abdominal: Reports: no symptoms Allergies: Coded Allergies: No Known Allergies (Unverified , 04/03/19) Objective Last 24 Hour Vital Signs Date Time Temp Pulse Resp B/P (MAP) Pulse Ox O2 Delivery O2 Flow Rate FiO2 04/12/19 09:24 127/84 04/12/19 08:00 98.0 110 18 127/84 (98) 100 04/12/19 07:11 130 26 95 Nasal Cannula 2.0 28 111 24 97 04/12/19 07:01 97 Nasal Cannula 2.0 28 04/12/19 04:00 Nasal Cannula 3.0 Nasal Cannula 3.0 04/12/19 04:00 106 04/12/19 04:00 97.6 115 20 151/89 (109) 100 04/12/19 01:10 120 18 97 Nasal Cannula 2.0 28 117 18 93 04/12/19 00:00 Nasal Cannula 3.0 Nasal Cannula 3.0 04/12/19 00:00 110 04/12/19 00:00 97.5 114 22 148/90 (109) 100 04/11/19 20:28 144/85 04/11/19 20:00 97.7 120 24 144/85 (104) 95 04/11/19 20:00 Nasal Cannula 3.0 Nasal Cannula 3.0 04/11/19 20:00 117 04/11/19 18:53 118 18 96 Nasal Cannula 2.0 28 116 18 92 04/11/19 18:52 92 Nasal Cannula 2.0 28 04/11/19 16:00 Nasal Cannula 3.0 Nasal Cannula 3.0 04/11/19 16:00 97.6 116 20 134/86 (102) 92 04/11/19 16:00 118 04/11/19 12:50 108 20 98 Nasal Cannula 2.0 28 111 20 96 04/11/19 12:00 116 04/11/19 12:00 Nasal Cannula 3.0 Nasal Cannula 3.0 04/11/19 12:00 97.6 108 20 139/85 (103) 94 Intake and Output 04/11/19 04/12/19 19:00 07:00 Intake Total 120 ml 175 ml Output Total 502 ml 351 ml Balance -382 ml -176 ml Intake Oral 120 ml 120 ml IV Total 55 ml Output Urine Total 500 ml 350 ml Stool Total 2 ml 1 ml # Bowel Movements 2 General Appearance: no acute distress HEENT: normocephalic Respiratory/Chest: chest wall non-tender, lungs clear Cardiovascular: normal peripheral pulses Abdomen: normal bowel sounds Laboratory Tests 04/12/19 04:00: White Blood Count 10.7, Red Blood Count 3.84L, Hemoglobin 11.0L, Hematocrit 32.9L, Mean Corpuscular Volume 86, Mean Corpuscular Hemoglobin 28.6, Mean Corpuscular Hemoglobin Concent 33.4, Red Cell Distribution Width 16.0H, Platelet Count 118L, Mean Platelet Volume 5.1L, Neutrophils (%) (Auto) 81.1H, Lymphocytes (%) (Auto) 7.7L, Monocytes (%) (Auto) 7.1, Eosinophils (%) (Auto) 3.4H, Basophils (%) (Auto) 0.7, Sodium Level 158H, Potassium Level 3.2L, Chloride Level 119H, Carbon Dioxide Level 31, Anion Gap 8, Blood Urea Nitrogen 25H, Creatinine 1.5H, Estimat Glomerular Filtration Rate , Glucose Level 94, Calcium Level 12.8H Current Medications Medications (Trade) Dose Ordered Sig/[place]ena Route PRN Reason Start Time Stop Time Status Last Admin Dose Admin Albuterol/ Ipratropium (Albuterol/ Ipratropium) 3 ml Q6H PRN HHN Shortness of Breath 04/09/19 21:00 04/14/19 20:59 Albuterol/ Ipratropium (Albuterol/ Ipratropium) 3 ml Q6HRT HHN 04/10/19 13:00 04/15/19 12:59 04/12/19 07:01 Calcitonin [place] (Miacalcin) 1 sprays DAILY NASAL 04/10/19 13:30 05/10/19 13:29 04/12/19 09:24 Ceftriaxone Sodium 1 gm/ Dextrose 55 ml @ 110 mls/hr Q24H IVPB 04/10/19 23:30 04/17/19 23:29 04/11/19 23:08 Chlorhexidine Gluconate (Martha-Hex 2%) 1 applic DAILY@2000 TOPIC 04/10/19 20:00 05/06/19 19:59 04/11/19 20:28 Enoxaparin Sodium (Lovenox) 30 mg DAILY SUBQ 04/10/19 09:00 05/04/19 08:59 04/12/19 09:26 Hydralazine HCl (Apresoline) 10 mg Q12HR NG 04/10/19 18:00 05/10/19 17:59 04/12/19 09:24 Hydralazine HCl (Apresoline) 10 mg Q4H PRN IV SBP > 170mmHg 04/09/19 21:00 05/08/19 20:59 Memantine (Namenda) 5 mg BID ORAL 04/10/19 09:00 05/04/19 17:59 04/12/19 09:24 Morphine Sulfate (Morphine Sulfate) 2 mg Q4H PRN IVP For Pain 04/09/19 22:00 04/16/19 21:59 04/10/19 21:37 Pantoprazole (Protonix) 40 mg DAILY IVP 04/10/19 09:00 05/08/19 08:59 04/12/19 09:24 Sertraline HCl (Zoloft) 25 mg DAILY ORAL 04/10/19 09:00 05/05/19 08:59 04/12/19 09:24 Ganesh Mathews MD Apr 12, 2019 11:42
[2019-04-12 12:00] VITALS: BP 126/58
--- NOTE | 2019-04-12 12:00 | Progress Note ---
DATE: 04/12/2019 SUBJECTIVE: This is a 73-year-old male patient. He has altered mental status. He has generalized weakness, altered mental status, and confusion, decline in cognition below his baseline. That is why, the attending has requested daily psychiatric consultation. DIAGNOSIS: Major depressive disorder, mild, recurrent with psychotic features, rule out dementia with psychosis. PLAN: Treat him with Zoloft 25 mg daily, Namenda 5 mg twice a day. A 20 minutes of cognitive behavioral therapy to help identify his automatic negative thoughts and help convert negative thoughts to more positive thoughts to reduce depression, anxiety, and mood lability. Chart reviewed. Discussed with staff. Seen and assessed . Cherise Palma M.D. DR: FREDIS JOB#: [id number] CC:
--- NOTE | 2019-04-12 12:00 | NUR ---
NURSE NOTES: Pt stable but confused,will continue to monitor pt.
--- NOTE | 2019-04-12 12:44 | Nephrology Progress Note ---
Assessment/Plan Status: stable, progressing Assessment/Plan: A/P 1. LETA. secondary to dehydration from hypercalcemia/ischemic ATN post arrest - Cr 1.5. Start D5W 2. Prostate cancer with tremendously elevated PSA 800 Defer to Hematology/Oncology. 3. Hypokalemia. prn replacement 4. Sepsis and UTI per Infectious Disease. 5. Hypernatremia- Na 158, add D5W 6- Hypercalcemia of malignancy- Calcitonin Subjective Date patient seen: Apr 12, 2019 Time patient seen: 12:42 ROS Limited/Unobtainable: No Allergies: Coded Allergies: No Known Allergies (Unverified , 04/03/19) Subjective Patient in no distress Objective Last 24 Hour Vital Signs Date Time Temp Pulse Resp B/P (MAP) Pulse Ox O2 Delivery O2 Flow Rate FiO2 04/12/19 12:00 Nasal Cannula 3.0 Nasal Cannula 3.0 04/12/19 12:00 98.2 119 18 126/58 (80) 100 04/12/19 09:24 127/84 04/12/19 08:00 Nasal Cannula 3.0 Nasal Cannula 3.0 04/12/19 08:00 98.0 110 18 127/84 (98) 100 04/12/19 08:00 107 04/12/19 07:11 130 26 95 Nasal Cannula 2.0 28 111 24 97 04/12/19 07:01 97 Nasal Cannula 2.0 28 04/12/19 04:00 Nasal Cannula 3.0 Nasal Cannula 3.0 04/12/19 04:00 106 04/12/19 04:00 97.6 115 20 151/89 (109) 100 04/12/19 01:10 120 18 97 Nasal Cannula 2.0 28 117 18 93 04/12/19 00:00 Nasal Cannula 3.0 Nasal Cannula 3.0 04/12/19 00:00 110 04/12/19 00:00 97.5 114 22 148/90 (109) 100 04/11/19 20:28 144/85 04/11/19 20:00 97.7 120 24 144/85 (104) 95 04/11/19 20:00 Nasal Cannula 3.0 Nasal Cannula 3.0 04/11/19 20:00 117 04/11/19 18:53 118 18 96 Nasal Cannula 2.0 28 116 18 92 04/11/19 18:52 92 Nasal Cannula 2.0 28 04/11/19 16:00 Nasal Cannula 3.0 Nasal Cannula 3.0 04/11/19 16:00 97.6 116 20 134/86 (102) 92 04/11/19 16:00 118 04/11/19 12:50 108 20 98 Nasal Cannula 2.0 28 111 20 96 Intake and Output 04/11/19 04/12/19 19:00 07:00 Intake Total 120 ml 175 ml Output Total 502 ml 351 ml Balance -382 ml -176 ml Intake Oral 120 ml 120 ml IV Total 55 ml Output Urine Total 500 ml 350 ml Stool Total 2 ml 1 ml # Bowel Movements 2 Laboratory Tests 04/12/19 04:00: White Blood Count 10.7, Red Blood Count 3.84L, Hemoglobin 11.0L, Hematocrit 32.9L, Mean Corpuscular Volume 86, Mean Corpuscular Hemoglobin 28.6, Mean Corpuscular Hemoglobin Concent 33.4, Red Cell Distribution Width 16.0H, Platelet Count 118L, Mean Platelet Volume 5.1L, Neutrophils (%) (Auto) 81.1H, Lymphocytes (%) (Auto) 7.7L, Monocytes (%) (Auto) 7.1, Eosinophils (%) (Auto) 3.4H, Basophils (%) (Auto) 0.7, Sodium Level 158H, Potassium Level 3.2L, Chloride Level 119H, Carbon Dioxide Level 31, Anion Gap 8, Blood Urea Nitrogen 25H, Creatinine 1.5H, Estimat Glomerular Filtration Rate , Glucose Level 94, Calcium Level 12.8H Height (Feet): 5 Height (Inches): 7.00 Weight (Pounds): 131 General Appearance: no apparent distress Neck: normal alignment, supple Cardiovascular: normal rate, regular rhythm Respiratory/Chest: rhonchi - bilaterally Abdomen: non tender, soft Edema: no edema noted Arm (L), no edema noted Arm (R), no edema noted Leg (L), no edema noted Leg (R), no edema noted Pedal (L), no edema noted Pedal (R), no edema noted Generalized Carlos White MD Apr 12, 2019 12:43
--- NOTE | 2019-04-12 14:05 | Hematology/Onc Progress Note ---
Assessment/Plan Assessment/Plan # Prostate cancer stage IV with psa >700, cr is worse, hydronephrosis noted, seen by renal, Dr. White. --> i did received records from [facility]. has regional lymphadenopathy, s/p transrectal biopsy with Gleasons 5+5 (2010) in all cores, apparently has had a 3 year course of androgen deprivation from 2011- 2014.also status post RADIATION to the prostate, then lost to followup. Following surviellance psa 0.45-->65, in 10/2016, and up to 127 in 12/2016, Ct scan showed recurrence of disease with lad but no bony mets, started on lupron 01/2017, psa fell yo 73-->46, has been sarted on zytiga + prednisone, and now psa progression on zytiga, he started xtandi in 01/2019 Psa 87. He did not go through urethral stenting, he has deferred treatment with chemo. --> He is a very poor historian, I have talked to the sister --> imaging has been noted --> as per urology recs, reviewed --> have called , no answer, trans to [facility]? --> poor prognosis given above history of treatment, [facility] [place] --> psa 737-->757 --> CT ABD 04/10: Evidence of advanced metastatic neoplasm likely secondary to prostate carcinoma. Extensive retroperitoneal and pelvic lymphadenopathy complicated by presence of bilateral hydroureteronephrosis. Extensive metastatic disease involving the bones also noted. Status post seed implant radiation therapy to the prostate gland. # Hypercalcemia -- now acutely worse --> trend Ca++ 8.1-->13-->12-->10.3-->10.7 --> ivf has been started --> as per nephrology --> consider pamidronate v calcitonin v other agent # Anemia due to underlying malignancy --> hgb trend as needed 9.2-->7-->10.9-->11 --> no hemolysis is noted --> no bleeding # Episode of generalized weakness --> on ivf --> pt as needed # Hypokalemia --> replete prn # Dehydration --> on ivf # Atrophic changes without evident intracranial hemorrhage. --> as per neuro, remains confused # Respiratory failure s/p vent --> s/p vent intubated on 04/06 --> 04/08 was extubated # Hypernatremia as well as low BUN. --> on ivf # Poor prognosis # Dvt ppx lovenox sq Appreciate consultation and dW Rn Subjective Allergies: Coded Allergies: No Known Allergies (Unverified , 04/03/19) Subjective 04/06: no events, apparently intubated today and transferred to the icu, will dw family 04/07: remains in the icu, critically ill, Ca++ 12, on vent, minimally responsive , on dopa, dw pcp and pulm 04/08: no major changes, no night sweats, labs have been reviewed, dw daughter, he is more alert 04/10: awake, no acute events ct abd reviewed, stool ob negative 04/12: labs reviewed, nc, tachy, ceftriaxone, no sob Objective Objective Current Medications Medications (Trade) Dose Ordered Sig/[place] Route PRN Reason Start Time Stop Time Status Last Admin Dose Admin Albuterol/ Ipratropium (Albuterol/ Ipratropium) 3 ml Q6H PRN HHN Shortness of Breath 04/09/19 21:00 04/14/19 20:59 Albuterol/ Ipratropium (Albuterol/ Ipratropium) 3 ml Q6HRT HHN 04/10/19 13:00 04/15/19 12:59 04/12/19 13:16 Calcitonin [place] (Miacalcin) 1 sprays DAILY NASAL 04/10/19 13:30 05/10/19 13:29 04/12/19 09:24 Ceftriaxone Sodium 1 gm/ Dextrose 55 ml @ 110 mls/hr Q24H IVPB 04/10/19 23:30 04/17/19 23:29 04/11/19 23:08 Chlorhexidine Gluconate (Martha-Hex 2%) 1 applic DAILY@2000 TOPIC 04/10/19 20:00 05/06/19 19:59 04/11/19 20:28 Dextrose 1,000 ml @ 50 mls/hr Q20H IV 04/12/19 13:15 05/12/19 13:14 Enoxaparin Sodium (Lovenox) 30 mg DAILY SUBQ 04/10/19 09:00 05/04/19 08:59 04/12/19 09:26 Hydralazine HCl (Apresoline) 10 mg Q12HR NG 04/10/19 18:00 05/10/19 17:59 04/12/19 09:24 Hydralazine HCl (Apresoline) 10 mg Q4H PRN IV SBP > 170mmHg 04/09/19 21:00 05/08/19 20:59 Memantine (Namenda) 5 mg BID ORAL 04/10/19 09:00 05/04/19 17:59 04/12/19 09:24 Morphine Sulfate (Morphine Sulfate) 2 mg Q4H PRN IVP For Pain 04/09/19 22:00 04/16/19 21:59 04/10/19 21:37 Pantoprazole (Protonix) 40 mg DAILY IVP 04/10/19 09:00 05/08/19 08:59 04/12/19 09:24 Sertraline HCl (Zoloft) 25 mg DAILY ORAL 04/10/19 09:00 05/05/19 08:59 04/12/19 09:24 Last 24 Hour Vital Signs Date Time Temp Pulse Resp B/P (MAP) Pulse Ox O2 Delivery O2 Flow Rate FiO2 04/12/19 13:16 110 22 100 Nasal Cannula 3.0 32 106 22 96 04/12/19 12:00 113 04/12/19 12:00 Nasal Cannula 3.0 Nasal Cannula 3.0 04/12/19 12:00 98.2 119 18 126/58 (80) 100 04/12/19 09:24 127/84 04/12/19 08:00 Nasal Cannula 3.0 Nasal Cannula 3.0 04/12/19 08:00 98.0 110 18 127/84 (98) 100 04/12/19 08:00 107 04/12/19 07:11 130 26 95 Nasal Cannula 2.0 28 111 24 97 04/12/19 07:01 97 Nasal Cannula 2.0 28 04/12/19 04:00 Nasal Cannula 3.0 Nasal Cannula 3.0 04/12/19 04:00 106 04/12/19 04:00 97.6 115 20 151/89 (109) 100 04/12/19 01:10 120 18 97 Nasal Cannula 2.0 28 117 18 93 04/12/19 00:00 Nasal Cannula 3.0 Nasal Cannula 3.0 04/12/19 00:00 110 04/12/19 00:00 97.5 114 22 148/90 (109) 100 04/11/19 20:28 144/85 04/11/19 20:00 97.7 120 24 144/85 (104) 95 04/11/19 20:00 Nasal Cannula 3.0 Nasal Cannula 3.0 04/11/19 20:00 117 04/11/19 18:53 118 18 96 Nasal Cannula 2.0 28 116 18 92 04/11/19 18:52 92 Nasal Cannula 2.0 28 04/11/19 16:00 Nasal Cannula 3.0 Nasal Cannula 3.0 04/11/19 16:00 97.6 116 20 134/86 (102) 92 04/11/19 16:00 118 04/11/19 12:50 108 20 98 Nasal Cannula 2.0 28 111 20 96 04/11/19 12:00 116 04/11/19 12:00 Nasal Cannula 3.0 Nasal Cannula 3.0 04/11/19 12:00 97.6 108 20 139/85 (103) 94 04/11/19 09:38 135/82 04/11/19 08:00 97.8 101 20 135/82 (99) 94 04/11/19 08:00 105 04/11/19 08:00 Nasal Cannula 3.0 Nasal Cannula 3.0 04/11/19 07:18 102 20 98 Nasal Cannula 2.0 28 106 20 97 04/11/19 07:17 96 Nasal Cannula 2.0 28 04/11/19 04:00 97.6 105 20 129/82 (98) 97 04/11/19 04:00 95 04/11/19 04:00 Nasal Cannula 3.0 Nasal Cannula 3.0 04/11/19 01:42 106 18 99 Nasal Cannula 2.0 28 103 18 97 04/11/19 00:00 102 04/11/19 00:00 97.6 99 20 130/80 (97) 97 04/11/19 00:00 Nasal Cannula 3.0 Nasal Cannula 3.0 04/10/19 20:00 97.2 99 20 129/69 (89) 99 04/10/19 20:00 104 04/10/19 20:00 Nasal Cannula 3.0 Nasal Cannula 3.0 04/10/19 19:07 111 16 94 Nasal Cannula 2.0 28 109 16 91 04/10/19 19:06 91 Nasal Cannula 2.0 28 04/10/19 18:07 120/82 04/10/19 16:00 Nasal Cannula 3.0 Nasal Cannula 3.0 04/10/19 16:00 110 04/10/19 16:00 97.4 107 20 120/82 (95) 97 Intake and Output 04/11/19 04/12/19 19:00 07:00 Intake Total 120 ml 175 ml Output Total 502 ml 351 ml Balance -382 ml -176 ml Intake Oral 120 ml 120 ml IV Total 55 ml Output Urine Total 500 ml 350 ml Stool Total 2 ml 1 ml # Bowel Movements 2 Labs Test 04/10/19 04:35 04/11/19 04:10 04/12/19 04:00 White Blood Count 9.4 K/UL (4.8-10.8) 7.7 K/UL (4.8-10.8) 10.7 K/UL (4.8-10.8) Red Blood Count 3.62 M/UL (4.70-6.10) 3.34 M/UL (4.70-6.10) 3.84 M/UL (4.70-6.10) Hemoglobin 10.4 G/DL (14.2-18.0) 9.6 G/DL (14.2-18.0) 11.0 G/DL (14.2-18.0) Hematocrit 30.6 % (42.0-52.0) 28.6 % (42.0-52.0) 32.9 % (42.0-52.0) Mean Corpuscular Volume 85 FL (80-99) 85 FL (80-99) 86 FL (80-99) Mean Corpuscular Hemoglobin 28.7 PG (27.0-31.0) 28.7 PG (27.0-31.0) 28.6 PG (27.0-31.0) Mean Corpuscular Hemoglobin Concent 34.0 G/DL (32.0-36.0) 33.6 G/DL (32.0-36.0) 33.4 G/DL (32.0-36.0) Red Cell Distribution Width 15.8 % (11.6-14.8) 16.2 % (11.6-14.8) 16.0 % (11.6-14.8) Platelet Count 142 K/UL (150-450) 115 K/UL (150-450) 118 K/UL (150-450) Mean Platelet Volume 5.6 FL (6.5-10.1) 5.4 FL (6.5-10.1) 5.1 FL (6.5-10.1) Neutrophils (%) (Auto) 77.0 % (45.0-75.0) 78.3 % (45.0-75.0) 81.1 % (45.0-75.0) Lymphocytes (%) (Auto) 9.4 % (20.0-45.0) 8.2 % (20.0-45.0) 7.7 % (20.0-45.0) Monocytes (%) (Auto) 7.3 % (1.0-10.0) 8.6 % (1.0-10.0) 7.1 % (1.0-10.0) Eosinophils (%) (Auto) 5.6 % (0.0-3.0) 4.2 % (0.0-3.0) 3.4 % (0.0-3.0) Basophils (%) (Auto) 0.8 % (0.0-2.0) 0.7 % (0.0-2.0) 0.7 % (0.0-2.0) Sodium Level 153 MMOL/L (136-145) 155 MMOL/L (136-145) 158 MMOL/L (136-145) Potassium Level 3.5 MMOL/L (3.5-5.1) 3.4 MMOL/L (3.5-5.1) 3.2 MMOL/L (3.5-5.1) Chloride Level 116 MMOL/L (98-107) 117 MMOL/L (98-107) 119 MMOL/L (98-107) Carbon Dioxide Level 27 MMOL/L (21-32) 30 MMOL/L (21-32) 31 MMOL/L (21-32) Anion Gap 10 mmol/L (5-15) 8 mmol/L (5-15) 8 mmol/L (5-15) Blood Urea Nitrogen 30 mg/dL (7-18) 28 mg/dL (7-18) 25 mg/dL (7-18) Creatinine 1.8 MG/DL (0.55-1.30) 1.7 MG/DL (0.55-1.30) 1.5 MG/DL (0.55-1.30) Estimat Glomerular Filtration Rate mL/min (>60) mL/min (>60) mL/min (>60) Glucose Level 95 MG/DL (74-106) 94 MG/DL (74-106) 94 MG/DL (74-106) Calcium Level 12.1 MG/DL (8.5-10.1) 12.0 MG/DL (8.5-10.1) 12.8 MG/DL (8.5-10.1) Height (Feet): 5 Height (Inches): 7.00 Weight (Pounds): 131 Objective General: normal inspection, alert, Chronically Ill Respiratory: s/p vent++ Cardiovascular: regular rate, rhythm, no edema Gastrointestinal: normal inspection, normal bowel sounds Genitourinary: no CVA tenderness Mus: normal inspection, back normal, normal range of motion Neurologic: alert, motor strength/tone normal, oriented + confused Psychiatric: normal inspection, judgement/insight normal Skin: no rash Andreas Monroy MD Apr 12, 2019 14:05
[2019-04-12] MEDS ORDERED: NS Irrig 1000ml ONE (14:42)
[2019-04-12] MEDS ORDERED: NS 275ml ONE (14:42)
[2019-04-12 16:00] VITALS: BP 158/98
--- NOTE | 2019-04-12 19:30 | NUR ---
NURSE NOTES: Pt report received from TATIANNA Almeida RN. pt remains stable. pt is alert and oriented times 3, able to follow commands. pt is on 3 L NC, able to sat at 99%, no resp distress noted. pt is on secured entrance monitor, showing NSR, no distress noted cardiac lopez. pts bed is low, locked, armed, bed rails up times 3, call light within reach. will follow plan of care.
--- NOTE | 2019-04-12 19:37 | NUR ---
HAND-OFF: Report given to Bryant Prasad RN.Pt stable in no resp distress sleeping at this time..
[2019-04-12 20:00] VITALS: BP 127/79
[2019-04-12] MEDS: Dyna-Hex 2% Top Sol 2oz TOPIC SCH (20:00)
[2019-04-12] MEDS: cefTRIAXone 1 GM in D5W 55 ML IVPB SCH (22:54)
[2019-04-13] VITALS (29 sets, daily range): BP systolic 74–146; BP diastolic 51–92
[2019-04-13] MEDS: Albuterol/Ipratropium 3ml neb HHN SCH ×3 (01:36→19:50)
[2019-04-13 04:51] LABS: BASOPHILS % (AUTO) 0.7 % (0.0-2.0); HEMOGLOBIN 11.1 G/DL (14.2-18.0); LYMPHOCYTES % (AUTO) 11.4 % (20.0-45.0); MEAN CORPUSCULAR VOLUME 86 FL (80-99); NEUTROPHILS % (AUTO) 77.8 % (45.0-75.0); PLATELET COUNT 141 K/UL (150-450); RED BLOOD COUNT 3.85 M/UL (4.70-6.10); RED CELL DISTRIBUTION WIDTH 15.7 % (11.6-14.8); WHITE BLOOD COUNT 7.5 K/UL (4.8-10.8)
[2019-04-13 05:15] LABS: ANION GAP 4 mmol/L (5-15); BLOOD UREA NITROGEN 20 mg/dL (7-18); CARBON DIOXIDE 33 MMOL/L (21-32); CHLORIDE 119 MMOL/L (98-107); CREATININE 1.2 MG/DL (0.55-1.30); POTASSIUM 4.2 MMOL/L (3.5-5.1); SODIUM 156 MMOL/L (136-145)
[2019-04-13 05:26] LABS: CALCIUM 13.2 MG/DL (8.5-10.1)
--- NOTE | 2019-04-13 07:14 | NUR ---
HAND-OFF: Report given to [facility] critical care paramedic. Pt remains stable.
--- NOTE | 2019-04-13 07:30 | NUR ---
received report from colleen COLON RN PT. AWAKE CONFUSE SKIN WARM AND DRY TO TOUCH MOVES ALL EXTREMETIES ON O2 3L BY NC NO RESP DISTRESS OBSERVED
--- NOTE | 2019-04-13 07:31 | Urology Progress Note ---
Assessment/Plan Status: stable, progressing Assessment/Plan: 1. 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 2. Urinary retention. 3. Acute kidney injury, improved. 4. Hydronephrosis, likely chronic. 5. Proteinuria. 6. UTI and colonization. 7. Hematuria. monitor clinically maintain guerra hand irrigate PRN position is satisfactory monitor renal fxn likely obst of bilateral distal ureters secondary to advanced prostate ca will need to see how aggressive pt and family want to be renal fxn has improved with the new guerra consider ureteral stents or nephrostomies? add flomax voiding trial at some point? Subjective Allergies: Coded Allergies: No Known Allergies (Unverified , 04/03/19) Subjective all noted, a bit more alert, no guerra leakage Objective Last 24 Hour Vital Signs Date Time Temp Pulse Resp B/P (MAP) Pulse Ox O2 Delivery O2 Flow Rate FiO2 04/13/19 04:00 106 04/13/19 04:00 98.3 105 22 137/86 (103) 98 04/13/19 04:00 Nasal Cannula 3.0 Nasal Cannula 3.0 04/13/19 01:37 116 20 100 Nasal Cannula 3.0 32 113 20 99 04/13/19 00:00 Nasal Cannula 3.0 Nasal Cannula 3.0 04/13/19 00:00 98.0 103 20 124/78 (93) 97 04/13/19 00:00 109 04/12/19 20:37 126/79 04/12/19 20:00 97.6 97 20 127/79 (95) 95 04/12/19 20:00 100 04/12/19 20:00 Nasal Cannula 3.0 Nasal Cannula 3.0 04/12/19 19:55 98 Nasal Cannula 2.0 28 04/12/19 19:52 104 20 100 Nasal Cannula 3.0 32 101 20 99 04/12/19 16:00 113 04/12/19 16:00 97.8 115 20 158/98 (118) 93 04/12/19 16:00 Nasal Cannula 3.0 Nasal Cannula 3.0 04/12/19 13:16 110 22 100 Nasal Cannula 3.0 32 106 22 96 04/12/19 12:00 113 04/12/19 12:00 Nasal Cannula 3.0 Nasal Cannula 3.0 2/9/20 12:00 98.2 119 18 126/58 (80) 100 04/12/19 09:24 127/84 04/12/19 08:00 Nasal Cannula 3.0 Nasal Cannula 3.0 04/12/19 08:00 98.0 110 18 127/84 (98) 100 04/12/19 08:00 107 Intake and Output 04/12/19 04/13/19 19:00 07:00 Intake Total 460 ml Output Total 402 ml 801 ml Balance 58 ml -801 ml Intake Oral 360 ml IV Total 100 ml Output Urine Total 400 ml 800 ml Stool Total 2 ml 1 ml # Bowel Movements 2 Microbiology Date/Time Source Procedure Growth Status 04/07/19 09:30 Blood Blood Culture - Final NO GROWTH AFTER 5 DAYS Complete 04/07/19 09:30 Sputum Induced Gram Stain - Final Complete 04/07/19 09:30 Sputum Induced Sputum Culture - Final NORMAL UPPER RESPIRATORY DAVID PRESENT Complete 04/07/19 09:50 Urine,Clean Catch Urine Culture - Final NO GROWTH AFTER 48 HOURS Complete Current Medications Medications (Trade) Dose Ordered Sig/[place]ena Route PRN Reason Start Time Stop Time Status Last Admin Dose Admin Albuterol/ Ipratropium (Albuterol/ Ipratropium) 3 ml Q6H PRN HHN Shortness of Breath 04/09/19 21:00 04/14/19 20:59 Albuterol/ Ipratropium (Albuterol/ Ipratropium) 3 ml Q6HRT HHN 04/10/19 13:00 04/15/19 12:59 04/13/19 01:36 Calcitonin [place] (Miacalcin) 1 sprays DAILY NASAL 04/10/19 13:30 05/10/19 13:29 04/12/19 09:24 Ceftriaxone Sodium 1 gm/ Dextrose 55 ml @ 110 mls/hr Q24H IVPB 04/10/19 23:30 04/17/19 23:29 04/12/19 22:54 Chlorhexidine Gluconate (Martha-Hex 2%) 1 applic DAILY@2000 TOPIC 04/10/19 20:00 05/06/19 19:59 04/11/19 20:28 Dextrose 1,000 ml @ 50 mls/hr Q20H IV 04/12/19 13:15 05/12/19 13:14 04/12/19 16:00 Enoxaparin Sodium (Lovenox) 30 mg DAILY SUBQ 04/10/19 09:00 05/04/19 08:59 04/12/19 09:26 Hydralazine HCl (Apresoline) 10 mg Q12HR NG 04/10/19 18:00 05/10/19 17:59 04/12/19 20:37 Hydralazine HCl (Apresoline) 10 mg Q4H PRN IV SBP > 170mmHg 04/09/19 21:00 05/08/19 20:59 Lansoprazole (Prevacid) 30 mg DAILY ORAL 04/13/19 09:00 05/13/19 08:59 Memantine (Namenda) 5 mg BID ORAL 04/10/19 09:00 05/04/19 17:59 04/12/19 17:21 Morphine Sulfate (Morphine Sulfate) 2 mg Q4H PRN IVP For Pain 04/09/19 22:00 04/16/19 21:59 04/10/19 21:37 Sertraline HCl (Zoloft) 25 mg DAILY ORAL 04/10/19 09:00 05/05/19 08:59 04/12/19 09:24 Laboratory Tests 04/13/19 03:50: White Blood Count 7.5, Red Blood Count 3.85L, Hemoglobin 11.1L, Hematocrit 33.0L , Mean Corpuscular Volume 86, Mean Corpuscular Hemoglobin 28.8, Mean Corpuscular Hemoglobin Concent 33.5, Red Cell Distribution Width 15.7H, Platelet Count 141L, Mean Platelet Volume 4.9L, Neutrophils (%) (Auto) 77.8H, Lymphocytes (%) (Auto) 11.4L, Monocytes (%) (Auto) 6.0, Eosinophils (%) (Auto) 4.0H, Basophils (%) (Auto) 0.7, Sodium Level 156H, Potassium Level 4.2, Chloride Level 119H, Carbon Dioxide Level 33H, Anion Gap 4L, Blood Urea Nitrogen 20H, Creatinine 1.2, Estimat Glomerular Filtration Rate , Glucose Level 104, Calcium Level 13.2*H Height (Feet): 5 Height (Inches): 7.00 Weight (Pounds): 131 Objective exam stable guerra indwelling, allegra urine CT A/P (04/10) noted Raz Root MD Apr 13, 2019 07:31
--- NOTE | 2019-04-13 08:00 | NUR ---
pt. lethergy but arousable ,st on scope to sr ,bp 129/79
--- NOTE | 2019-04-13 09:00 | NUR ---
unable to take his meds , try to feed him unable ,unable to swallow speech therapy notefied dr day saw the pt. and notefied
[2019-04-13] MEDS: Memantine 5 MG TAB ORAL SCH ×2 (09:02→17:59)
[2019-04-13] MEDS: Sertraline 50mg tab ORAL SCH (09:04)
[2019-04-13] MEDS: Enoxaparin 30mg Inj SUBQ SCH (09:10)
[2019-04-13] MEDS: HydrALAZINE 10mg Tab NG SCH ×2 (09:11→21:00)
--- NOTE | 2019-04-13 09:21 | General Progress Note ---
Assessment/Plan Problem List: (1) UTI (urinary tract infection) ICD Codes: N39.0 - Urinary tract infection, site not specified SNOMED: 94620980 (2) Weak ICD Codes: R53.1 - Weakness SNOMED: 46244675 (3) Anemia ICD Codes: D64.9 - Anemia, unspecified SNOMED: 649672070 (4) Dehydration ICD Codes: E86.0 - Dehydration SNOMED: 89932587, 32528274 (5) Episode of generalized weakness ICD Codes: R53.1 - Weakness SNOMED: 60286448 (6) Stage III adenocarcinoma of prostate ICD Codes: C61 - Malignant neoplasm of prostate SNOMED: 896138298, 09610551 Status: stable, progressing Assessment/Plan: wean vent pt diet abx iv fluid heme gi eval cbc bmp am dc plan w hh Subjective Constitutional: Reports: weakness Allergies: Coded Allergies: No Known Allergies (Unverified , 04/03/19) All Systems: reviewed and negative except above Subjective o2nc sleep Objective Last 24 Hour Vital Signs Date Time Temp Pulse Resp B/P (MAP) Pulse Ox O2 Delivery O2 Flow Rate FiO2 04/13/19 09:11 137/86 04/13/19 07:29 106 20 98 Nasal Cannula 3.0 32 92 20 96 04/13/19 07:29 96 Nasal Cannula 3.0 32 04/13/19 04:00 106 04/13/19 04:00 98.3 105 22 137/86 (103) 98 04/13/19 04:00 Nasal Cannula 3.0 Nasal Cannula 3.0 04/13/19 01:37 116 20 100 Nasal Cannula 3.0 32 113 20 99 04/13/19 00:00 Nasal Cannula 3.0 Nasal Cannula 3.0 04/13/19 00:00 98.0 103 20 124/78 (93) 97 04/13/19 00:00 109 04/12/19 20:37 126/79 04/12/19 20:00 97.6 97 20 127/79 (95) 95 04/12/19 20:00 100 04/12/19 20:00 Nasal Cannula 3.0 Nasal Cannula 3.0 04/12/19 19:55 98 Nasal Cannula 2.0 28 04/12/19 19:52 104 20 100 Nasal Cannula 3.0 32 101 20 99 04/12/19 16:00 113 04/12/19 16:00 97.8 115 20 158/98 (118) 93 04/12/19 16:00 Nasal Cannula 3.0 Nasal Cannula 3.0 04/12/19 13:16 110 22 100 Nasal Cannula 3.0 32 106 22 96 04/12/19 12:00 113 04/12/19 12:00 Nasal Cannula 3.0 Nasal Cannula 3.0 04/12/19 12:00 98.2 119 18 126/58 (80) 100 04/12/19 09:24 127/84 Intake and Output 04/12/19 04/13/19 19:00 07:00 Intake Total 460 ml Output Total 402 ml 801 ml Balance 58 ml -801 ml Intake Oral 360 ml IV Total 100 ml Output Urine Total 400 ml 800 ml Stool Total 2 ml 1 ml # Bowel Movements 2 Laboratory Tests 04/13/19 03:50: White Blood Count 7.5, Red Blood Count 3.85L, Hemoglobin 11.1L, Hematocrit 33.0L , Mean Corpuscular Volume 86, Mean Corpuscular Hemoglobin 28.8, Mean Corpuscular Hemoglobin Concent 33.5, Red Cell Distribution Width 15.7H, Platelet Count 141L, Mean Platelet Volume 4.9L, Neutrophils (%) (Auto) 77.8H, Lymphocytes (%) (Auto) 11.4L, Monocytes (%) (Auto) 6.0, Eosinophils (%) (Auto) 4.0H, Basophils (%) (Auto) 0.7, Sodium Level 156H, Potassium Level 4.2, Chloride Level 119H, Carbon Dioxide Level 33H, Anion Gap 4L, Blood Urea Nitrogen 20H, Creatinine 1.2, Estimat Glomerular Filtration Rate , Glucose Level 104, Calcium Level 13.2*H Height (Feet): 5 Height (Inches): 7.00 Weight (Pounds): 131 General Appearance: lethargic EENT: normal ENT inspection Neck: normal alignment Cardiovascular: normal peripheral pulses, normal rate, regular rhythm Respiratory/Chest: chest wall non-tender, lungs clear, normal breath sounds Abdomen: normal bowel sounds, non tender, soft Extremities: normal inspection Edema: no edema noted Arm (L), no edema noted Arm (R), no edema noted Leg (L), no edema noted Leg (R), no edema noted Pedal (L), no edema noted Pedal (R), no edema noted Generalized Neurologic: motor weakness Skin: normal pigmentation, warm/dry Sawyer Toussaint DO Apr 13, 2019 09:21
--- NOTE | 2019-04-13 09:30 | NUR ---
P.T Note: Pt seen this AM . Received supine position, lethargic however able to arouse. Pt reports c/o generalized pain particularly the chest and and lower back 3-4/5 however agreeable to participate in P.T. Tx consisted of ADL/functional mobility training, thera ex's and sitting/standing balance activities. Pt tolerated tx fairly with intermittent rest breaks and no increased in pain symptoms. Vitals stable during the entire session. See care activity , P.T section for functional level.
--- NOTE | 2019-04-13 09:30 | NUR ---
pt.,s daughter notefied with pt. condetion
--- NOTE | 2019-04-13 09:31 | General Progress Note ---
Assessment/Plan Status: stable, progressing Assessment/Plan: Assessment/Plan Problems: (1) Coffee ground emesis ICD Codes: K92.0 - Hematemesis SNOMED: 88633631 (2) Anemia (3) metastatic prostate CA Assessment/Plan This is a 73-year-old male, status post Code Blue with coffee-grounds emesis, tachycardia, anemia. Protonix 40 mg q.12.>>> will change to daily F/U OB stool>>>neg>>> will hold GI procedures for now prn transfusions maintain above 7 speech eval>>> on puree diet now>>> poor po intake will follow Subjective ROS Limited/Unobtainable: No Allergies: Coded Allergies: No Known Allergies (Unverified , 04/03/19) Objective Last 24 Hour Vital Signs Date Time Temp Pulse Resp B/P (MAP) Pulse Ox O2 Delivery O2 Flow Rate FiO2 04/13/19 09:11 137/86 04/13/19 07:29 106 20 98 Nasal Cannula 3.0 32 92 20 96 04/13/19 07:29 96 Nasal Cannula 3.0 32 04/13/19 04:00 106 04/13/19 04:00 98.3 105 22 137/86 (103) 98 04/13/19 04:00 Nasal Cannula 3.0 Nasal Cannula 3.0 04/13/19 01:37 116 20 100 Nasal Cannula 3.0 32 113 20 99 04/13/19 00:00 Nasal Cannula 3.0 Nasal Cannula 3.0 04/13/19 00:00 98.0 103 20 124/78 (93) 97 04/13/19 00:00 109 04/12/19 20:37 126/79 04/12/19 20:00 97.6 97 20 127/79 (95) 95 04/12/19 20:00 100 04/12/19 20:00 Nasal Cannula 3.0 Nasal Cannula 3.0 04/12/19 19:55 98 Nasal Cannula 2.0 28 04/12/19 19:52 104 20 100 Nasal Cannula 3.0 32 101 20 99 04/12/19 16:00 113 04/12/19 16:00 97.8 115 20 158/98 (118) 93 04/12/19 16:00 Nasal Cannula 3.0 Nasal Cannula 3.0 04/12/19 13:16 110 22 100 Nasal Cannula 3.0 32 106 22 96 04/12/19 12:00 113 04/12/19 12:00 Nasal Cannula 3.0 Nasal Cannula 3.0 04/12/19 12:00 98.2 119 18 126/58 (80) 100 Intake and Output 04/12/19 04/13/19 19:00 07:00 Intake Total 460 ml Output Total 402 ml 801 ml Balance 58 ml -801 ml Intake Oral 360 ml IV Total 100 ml Output Urine Total 400 ml 800 ml Stool Total 2 ml 1 ml # Bowel Movements 2 Laboratory Tests 04/13/19 03:50: White Blood Count 7.5, Red Blood Count 3.85L, Hemoglobin 11.1L, Hematocrit 33.0L , Mean Corpuscular Volume 86, Mean Corpuscular Hemoglobin 28.8, Mean Corpuscular Hemoglobin Concent 33.5, Red Cell Distribution Width 15.7H, Platelet Count 141L, Mean Platelet Volume 4.9L, Neutrophils (%) (Auto) 77.8H, Lymphocytes (%) (Auto) 11.4L, Monocytes (%) (Auto) 6.0, Eosinophils (%) (Auto) 4.0H, Basophils (%) (Auto) 0.7, Sodium Level 156H, Potassium Level 4.2, Chloride Level 119H, Carbon Dioxide Level 33H, Anion Gap 4L, Blood Urea Nitrogen 20H, Creatinine 1.2, Estimat Glomerular Filtration Rate , Glucose Level 104, Calcium Level 13.2*H Height (Feet): 5 Height (Inches): 7.00 Weight (Pounds): 131 General Appearance: alert EENT: normal ENT inspection Neck: supple Cardiovascular: normal rate Respiratory/Chest: decreased breath sounds Abdomen: normal bowel sounds, non tender, soft Extremities: non-tender Tyrone Lamb MD Apr 13, 2019 09:31
--- NOTE | 2019-04-13 10:11 | NUR ---
ST NOTES: SWALLOW STATUS: ADDITIONAL ACUTE ISSUES: BILATERAL INFILTRATES IN LUNGS NOTED ON 04/08/19, DEHYDRATION, SEPSIS, UTI, HYPERGLYCEMIA, HYPERNATREMIA, AND HYPOCALCEMIA, SOB, INTUBATED 04/06 TO 04/10/19. POLST NOT IN CHART BUT FULL CODE PER RN AND HAD NGT BEFORE. DTR WANTS PO FOR NOW AND HOLD OFF ON TEMPORARY NGT FOR NOW (TO SEE IF HE GETS MORE ALERT). H/O PROSTATE CA (STAGE 3), COPD, CARDIAC D/O, AND HTN. PATIENT IS NOT ALERT FOR BREAKFAST (PER RN, JAMEY HAD ORAL SPILLAGE) NOR FOR PO TRIALS WITH AUTO MECHANICS INSTRUCTOR. PER MEDICAL RECORD, PATIENT IS FULL CODE ? TUBE FEEDINGS (HAD BEFORE AND NOT NOW). INTAKE NOW VARIABLE FROM 25/50/75% ON PUREED AND NECTAR THICK LIQUIDS. PLAN: CONTINUE WITH PO FOR QUALITY OF LIFE, CONSIDER DOWNGRADE TO LIQUIFIED PUREED LIKE NECTAR THICK SOUP WITH POSTED ASPIRATION/REFLUX PRECAUTIONS (ON GERD MEDS) SEND HIGH RUBEN SUP PER RD AND LIBERALIZE DIET PER RN. CONSIDER MOD BARIUM SWALLOW STUDY WHEN MORE ALERT TO FURTHER ASSESS SWALLOW, DETERMINE SILENT ASP RISK, AND ATTEMPT TRIAL TX.
--- NOTE | 2019-04-13 10:14 | Nephrology Progress Note ---
Assessment/Plan Status: stable, progressing Assessment/Plan: A/P 1. LETA. secondary to dehydration from hypercalcemia/ischemic ATN post arrest - Cr down to 1.2 2. Prostate cancer with tremendously elevated PSA 800 Per Hematology/Oncology. 3. Hypokalemia. prn replacement. Corrected 4. Sepsis and UTI per Infectious Disease. 5. Hypernatremia- Na 156. Continue D5W 6- Hypercalcemia of malignancy- Calcitonin. add one dose of pamidrinate Subjective Date patient seen: Apr 13, 2019 Time patient seen: 10:12 ROS Limited/Unobtainable: No Allergies: Coded Allergies: No Known Allergies (Unverified , 04/03/19) Subjective Patient without complaints Objective Last 24 Hour Vital Signs Date Time Temp Pulse Resp B/P (MAP) Pulse Ox O2 Delivery O2 Flow Rate FiO2 04/13/19 09:11 137/86 04/13/19 07:29 106 20 98 Nasal Cannula 3.0 32 92 20 96 04/13/19 07:29 96 Nasal Cannula 3.0 32 04/13/19 04:00 106 04/13/19 04:00 98.3 105 22 137/86 (103) 98 04/13/19 04:00 Nasal Cannula 3.0 Nasal Cannula 3.0 04/13/19 01:37 116 20 100 Nasal Cannula 3.0 32 113 20 99 04/13/19 00:00 Nasal Cannula 3.0 Nasal Cannula 3.0 04/13/19 00:00 98.0 103 20 124/78 (93) 97 04/13/19 00:00 109 04/12/19 20:37 126/79 04/12/19 20:00 97.6 97 20 127/79 (95) 95 04/12/19 20:00 100 04/12/19 20:00 Nasal Cannula 3.0 Nasal Cannula 3.0 04/12/19 19:55 98 Nasal Cannula 2.0 28 04/12/19 19:52 104 20 100 Nasal Cannula 3.0 32 101 20 99 04/12/19 16:00 113 04/12/19 16:00 97.8 115 20 158/98 (118) 93 04/12/19 16:00 Nasal Cannula 3.0 Nasal Cannula 3.0 04/12/19 13:16 110 22 100 Nasal Cannula 3.0 32 106 22 96 04/12/19 12:00 113 04/12/19 12:00 Nasal Cannula 3.0 Nasal Cannula 3.0 04/12/19 12:00 98.2 119 18 126/58 (80) 100 Intake and Output 04/12/19 04/13/19 19:00 07:00 Intake Total 460 ml Output Total 402 ml 801 ml Balance 58 ml -801 ml Intake Oral 360 ml IV Total 100 ml Output Urine Total 400 ml 800 ml Stool Total 2 ml 1 ml # Bowel Movements 2 Laboratory Tests 04/13/19 03:50: White Blood Count 7.5, Red Blood Count 3.85L, Hemoglobin 11.1L, Hematocrit 33.0L , Mean Corpuscular Volume 86, Mean Corpuscular Hemoglobin 28.8, Mean Corpuscular Hemoglobin Concent 33.5, Red Cell Distribution Width 15.7H, Platelet Count 141L, Mean Platelet Volume 4.9L, Neutrophils (%) (Auto) 77.8H, Lymphocytes (%) (Auto) 11.4L, Monocytes (%) (Auto) 6.0, Eosinophils (%) (Auto) 4.0H, Basophils (%) (Auto) 0.7, Sodium Level 156H, Potassium Level 4.2, Chloride Level 119H, Carbon Dioxide Level 33H, Anion Gap 4L, Blood Urea Nitrogen 20H, Creatinine 1.2, Estimat Glomerular Filtration Rate , Glucose Level 104, Calcium Level 13.2*H Height (Feet): 5 Height (Inches): 7.00 Weight (Pounds): 131 General Appearance: no apparent distress EENT: normal ENT inspection Neck: normal alignment, supple Cardiovascular: normal rate, regular rhythm Respiratory/Chest: rhonchi - bilaterally Abdomen: non tender, soft Edema: no edema noted Arm (L), no edema noted Arm (R), no edema noted Leg (L), no edema noted Leg (R), no edema noted Pedal (L), no edema noted Pedal (R), no edema noted Generalized Carlos White MD Apr 13, 2019 10:14
--- NOTE | 2019-04-13 10:24 | NUR ---
*-* INSURANCE *-* PATIENT HAS BEEN REFERRED TO: [email or web address] [phone] Work [phone] Work Work Fax
--- NOTE | 2019-04-13 10:30 | NUR ---
dr. hunter saw the pt. and notefied about pt. condetion
--- NOTE | 2019-04-13 10:36 | NUR ---
*-* DISCHARGE PLANNING *-* PATIENT HAS BEEN REFERRED TO: [email or web address] [phone] Work [phone] Work Work Fax *-* S/W STAN AT [facility] THEY ARE ACCEPTING PATIENT *-* *-* CALL [facility] ONCE OFFICIAL D/C IS IN AND SEND ORDERS *-*
--- NOTE | 2019-04-13 10:38 | Cardiac Electrophysiology PN ---
Assessment/Plan Assessment/Plan 1. Status post noninfarctional juan antonio arrest with asystole. No evidence of ventricular tachycardia or ventricular fibrillation. Could be secondary to respiratory arrest. Now off Clonidine. EF 65%. No further juan antonio episodes. All 3 troponins were less than 0.1 2. S/P Respiratory failure, extubated 04/08/19 3. History of stage III prostate cancer, followed by Dr. Monroy and Dr Root. Morales was changed. Follows up usually at [facility] 4. Hypotension. Off Levophed on iv Abx. On prn iv hydralazine 5. Hypercalcemia due to prostate cancer. 6. Hypernatremia. On IV fluids D5w at 50 cc/hr. 7. Anemia, s/p PRBC 04/08/19 DW RN Subjective Subjective S/P PRBC. In SR. Morales was changed. On thick liquid diet. Lethargic S/P CT abdomen by Dr. Root Objective Last 24 Hour Vital Signs Date Time Temp Pulse Resp B/P (MAP) Pulse Ox O2 Delivery O2 Flow Rate FiO2 04/13/19 09:11 137/86 04/13/19 07:29 106 20 98 Nasal Cannula 3.0 32 92 20 96 04/13/19 07:29 96 Nasal Cannula 3.0 32 04/13/19 04:00 106 04/13/19 04:00 98.3 105 22 137/86 (103) 98 04/13/19 04:00 Nasal Cannula 3.0 Nasal Cannula 3.0 04/13/19 01:37 116 20 100 Nasal Cannula 3.0 32 113 20 99 04/13/19 00:00 Nasal Cannula 3.0 Nasal Cannula 3.0 04/13/19 00:00 98.0 103 20 124/78 (93) 97 04/13/19 00:00 109 04/12/19 20:37 126/79 04/12/19 20:00 97.6 97 20 127/79 (95) 95 04/12/19 20:00 100 04/12/19 20:00 Nasal Cannula 3.0 Nasal Cannula 3.0 04/12/19 19:55 98 Nasal Cannula 2.0 28 04/12/19 19:52 104 20 100 Nasal Cannula 3.0 32 101 20 99 04/12/19 16:00 113 2/9/20 16:00 97.8 115 20 158/98 (118) 93 04/12/19 16:00 Nasal Cannula 3.0 Nasal Cannula 3.0 04/12/19 13:16 110 22 100 Nasal Cannula 3.0 32 106 22 96 04/12/19 12:00 113 04/12/19 12:00 Nasal Cannula 3.0 Nasal Cannula 3.0 04/12/19 12:00 98.2 119 18 126/58 (80) 100 Intake and Output 04/12/19 04/13/19 19:00 07:00 Intake Total 460 ml Output Total 402 ml 801 ml Balance 58 ml -801 ml Intake Oral 360 ml IV Total 100 ml Output Urine Total 400 ml 800 ml Stool Total 2 ml 1 ml # Bowel Movements 2 Laboratory Tests Test 04/13/19 03:50 White Blood Count 7.5 K/UL (4.8-10.8) Red Blood Count 3.85 M/UL (4.70-6.10) L Hemoglobin 11.1 G/DL (14.2-18.0) L Hematocrit 33.0 % (42.0-52.0) L Mean Corpuscular Volume 86 FL (80-99) Mean Corpuscular Hemoglobin 28.8 PG (27.0-31.0) Mean Corpuscular Hemoglobin Concent 33.5 G/DL (32.0-36.0) Red Cell Distribution Width 15.7 % (11.6-14.8) H Platelet Count 141 K/UL (150-450) L Mean Platelet Volume 4.9 FL (6.5-10.1) L Neutrophils (%) (Auto) 77.8 % (45.0-75.0) H Lymphocytes (%) (Auto) 11.4 % (20.0-45.0) L Monocytes (%) (Auto) 6.0 % (1.0-10.0) Eosinophils (%) (Auto) 4.0 % (0.0-3.0) H Basophils (%) (Auto) 0.7 % (0.0-2.0) Sodium Level 156 MMOL/L (136-145) H Potassium Level 4.2 MMOL/L (3.5-5.1) Chloride Level 119 MMOL/L (98-107) H Carbon Dioxide Level 33 MMOL/L (21-32) H Anion Gap 4 mmol/L (5-15) L Blood Urea Nitrogen 20 mg/dL (7-18) H Creatinine 1.2 MG/DL (0.55-1.30) Estimat Glomerular Filtration Rate mL/min (>60) Glucose Level 104 MG/DL (74-106) Calcium Level 13.2 MG/DL (8.5-10.1) *H Objective HEENT: No JVD LUNGS: Coarse rhonchi. CARDIOVASCULAR: Regular S1 and S2 and tachycardic. ABDOMEN: Soft and nondistended. EXTREMITIES: No pitting edema. Nain Cortez MD Apr 13, 2019 10:38
--- NOTE | 2019-04-13 11:05 | Infectious Diseases Prog Note ---
Assessment/Plan Assessment/Plan Assessment: s/p asystole cardiac arrest 04/06 VDRF; s/p extubation 04/08 Shock, off pressors now Sepsis UTI B/l hydroureteronephrosis -04/10 CT abd/p: Evidence of advanced metastatic neoplasm likely secondary to prostate carcinoma. Extensive retroperitoneal and pelvic lymphadenopathy complicated by presence of bilateral hydroureteronephrosis. Extensive metastatic disease involving the bones also noted. Small left pleural effusion. Right trace right pleural effusion. Right inguinal hernia containing a small amount of fluid. Alternatively this could represent part of the testis. Anasarca. -u/a wbc 20-30, nit +, leuk +3; ucx >100k E.coli (R amp, bactrim; otherwise S) Probable Aspiration pneumonitis vs PNA -04/08 CXR: Patchy perihilar disease which may be asymmetric interstitial edema or infiltrate unchanged. Interval resolution of right basal atelectasis. -04/07 sp cx normal sharyn(prelim) Afebrile Mild leukocytosis, recurrent- SP -04/07 Bcx NTD u/a wbc tnct, nit neg, leuk +; ucx p -04/06 CXR: Interval resolution of right apical density. This suggests the diagnosis was atelectasis rather than an apical cap from blood, which was suggested as a possibility on the prior report. The right upper lobe atelectasis has resolved. Suspicion of new atelectasis at the right lung base. s/p recent fall LETA Hypokalemia prostate CA stage IV, mets to bone chronic indwelling guerra catheter Plan: - D/c Ceftriaxone # 4 for E.coli UTI (abx d #01/11) and monitor off abx - 04/10 Sp ZOsyn #4 -2/ SP IV Vancomycin #3 -2/ SP Ceftriaxone #4 -f/u cx -Monitor CBC/CMP, temperatures -aspiration precautions -Cards, renal, Uro, pulm f/u Thank you for this consultation. Will continue to follow along with you. Discussed with RN Subjective Allergies: Coded Allergies: No Known Allergies (Unverified , 04/03/19) Subjective afebrile no leukocytosis at 3l NC Objective Vital Signs Last 24 Hour Vital Signs Date Time Temp Pulse Resp B/P (MAP) Pulse Ox O2 Delivery O2 Flow Rate FiO2 04/13/19 09:11 137/86 04/13/19 07:29 106 20 98 Nasal Cannula 3.0 32 92 20 96 04/13/19 07:29 96 Nasal Cannula 3.0 32 04/13/19 04:00 106 04/13/19 04:00 98.3 105 22 137/86 (103) 98 04/13/19 04:00 Nasal Cannula 3.0 Nasal Cannula 3.0 04/13/19 01:37 116 20 100 Nasal Cannula 3.0 32 113 20 99 04/13/19 00:00 Nasal Cannula 3.0 Nasal Cannula 3.0 04/13/19 00:00 98.0 103 20 124/78 (93) 97 04/13/19 00:00 109 04/12/19 20:37 126/79 04/12/19 20:00 97.6 97 20 127/79 (95) 95 04/12/19 20:00 100 04/12/19 20:00 Nasal Cannula 3.0 Nasal Cannula 3.0 04/12/19 19:55 98 Nasal Cannula 2.0 28 04/12/19 19:52 104 20 100 Nasal Cannula 3.0 32 101 20 99 04/12/19 16:00 113 04/12/19 16:00 97.8 115 20 158/98 (118) 93 04/12/19 16:00 Nasal Cannula 3.0 Nasal Cannula 3.0 04/12/19 13:16 110 22 100 Nasal Cannula 3.0 32 106 22 96 04/12/19 12:00 113 04/12/19 12:00 Nasal Cannula 3.0 Nasal Cannula 3.0 04/12/19 12:00 98.2 119 18 126/58 (80) 100 Height (Feet): 5 Height (Inches): 7.00 Weight (Pounds): 131 Objective General Appearance: normal inspection, alert, Chronically Ill Head: atraumatic ENT: normal ENT inspection, normal voice, dry mucus membranes Neck: normal inspection, full range of motion, supple, no bony tend Respiratory: normal inspection, lungs clear, normal breath sounds, no respiratory distress, no retraction, no wheezing Cardiovascular #1: regular rate, rhythm, no edema Gastrointestinal: normal inspection, normal bowel sounds, non tender, soft, no guarding, no hernia Genitourinary: no CVA tenderness Musculoskeletal: normal inspection, back normal, normal range of motion Neurologic: alert, motor strength/tone normal, oriented, motor weakness, responsive, speech normal, other - atrophy to muscles Psychiatric: normal inspection, judgement/insight normal, mood/affect normal Skin: no rash Laboratory Tests Test 04/13/19 03:50 White Blood Count 7.5 K/UL (4.8-10.8) Red Blood Count 3.85 M/UL (4.70-6.10) L Hemoglobin 11.1 G/DL (14.2-18.0) L Hematocrit 33.0 % (42.0-52.0) L Mean Corpuscular Volume 86 FL (80-99) Mean Corpuscular Hemoglobin 28.8 PG (27.0-31.0) Mean Corpuscular Hemoglobin Concent 33.5 G/DL (32.0-36.0) Red Cell Distribution Width 15.7 % (11.6-14.8) H Platelet Count 141 K/UL (150-450) L Mean Platelet Volume 4.9 FL (6.5-10.1) L Neutrophils (%) (Auto) 77.8 % (45.0-75.0) H Lymphocytes (%) (Auto) 11.4 % (20.0-45.0) L Monocytes (%) (Auto) 6.0 % (1.0-10.0) Eosinophils (%) (Auto) 4.0 % (0.0-3.0) H Basophils (%) (Auto) 0.7 % (0.0-2.0) Sodium Level 156 MMOL/L (136-145) H Potassium Level 4.2 MMOL/L (3.5-5.1) Chloride Level 119 MMOL/L (98-107) H Carbon Dioxide Level 33 MMOL/L (21-32) H Anion Gap 4 mmol/L (5-15) L Blood Urea Nitrogen 20 mg/dL (7-18) H Creatinine 1.2 MG/DL (0.55-1.30) Estimat Glomerular Filtration Rate mL/min (>60) Glucose Level 104 MG/DL (74-106) Calcium Level 13.2 MG/DL (8.5-10.1) *H Current Medications Medications (Trade) Dose Ordered Sig/[place] Route PRN Reason Start Time Stop Time Status Last Admin Dose Admin Albuterol/ Ipratropium (Albuterol/ Ipratropium) 3 ml Q6H PRN HHN Shortness of Breath 04/09/19 21:00 04/14/19 20:59 Albuterol/ Ipratropium (Albuterol/ Ipratropium) 3 ml Q6HRT HHN 04/10/19 13:00 04/15/19 12:59 04/13/19 07:50 Calcitonin [place] (Miacalcin) 1 sprays DAILY NASAL 04/10/19 13:30 05/10/19 13:29 04/13/19 09:08 Ceftriaxone Sodium 1 gm/ Dextrose 55 ml @ 110 mls/hr Q24H IVPB 04/10/19 23:30 04/17/19 23:29 04/12/19 22:54 Chlorhexidine Gluconate (Martha-Hex 2%) 1 applic DAILY@2000 TOPIC 04/10/19 20:00 05/06/19 19:59 04/11/19 20:28 Dextrose 1,000 ml @ 50 mls/hr Q20H IV 04/12/19 13:15 05/12/19 13:14 04/13/19 09:12 Enoxaparin Sodium (Lovenox) 30 mg DAILY SUBQ 04/10/19 09:00 05/04/19 08:59 04/13/19 09:10 Hydralazine HCl (Apresoline) 10 mg Q12HR NG 04/10/19 18:00 05/10/19 17:59 04/13/19 09:11 Hydralazine HCl (Apresoline) 10 mg Q4H PRN IV SBP > 170mmHg 04/09/19 21:00 05/08/19 20:59 Lansoprazole (Prevacid) 30 mg DAILY ORAL 04/13/19 09:00 05/13/19 08:59 04/13/19 09:02 Memantine (Namenda) 5 mg BID ORAL 04/10/19 09:00 05/04/19 17:59 04/13/19 09:02 Morphine Sulfate (Morphine Sulfate) 2 mg Q4H PRN IVP For Pain 04/09/19 22:00 04/16/19 21:59 04/10/19 21:37 Pamidronate Disodium 30 mg/ Sodium Chloride 550 ml @ 137.5 mls/ hr ONCE ONCE IVPB 04/13/19 12:00 04/13/19 15:59 Sertraline HCl (Zoloft) 25 mg DAILY ORAL 04/10/19 09:00 05/05/19 08:59 04/13/19 09:04 Tamsulosin HCl (Flomax) 0.4 mg BEDTIME ORAL 04/13/19 21:00 05/13/19 20:59 Rafia Nielson M.D. Apr 13, 2019 11:05
--- NOTE | 2019-04-13 11:30 | NUR ---
pt. more awake seen by p.t follow simple comandes test him for bedside swallow still coughing speech therapy notefied plan to do vedeo swallow
[2019-04-13] MEDS ORDERED: Pamidronate Disodium Inj 30 MG in Sodium Chloride 550 ML IVPB ONE ×2 (12:00→14:50)
--- NOTE | 2019-04-13 13:00 | NUR ---
pt. desaturated poX 88% placed on 50% vent mask
--- NOTE | 2019-04-13 13:05 | NUR ---
ST NOTES: SWALLOW STATUS: ADDITIONAL ACUTE ISSUES: BILATERAL INFILTRATES IN LUNGS NOTED ON 04/08/19, DEHYDRATION, SEPSIS, UTI, HYPERGLYCEMIA, HYPERNATREMIA, AND HYPOCALCEMIA, SOB, INTUBATED 04/06 TO 04/10/19. POLST NOT IN CHART BUT FULL CODE PER RN AND HAD NGT BEFORE. DTR WANTS PO FOR NOW AND HOLD OFF ON TEMPORARY NGT FOR NOW (TO SEE IF HE GETS MORE ALERT). H/O PROSTATE CA (STAGE 3), COPD, CARDIAC D/O, AND HTN. 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 PER MEDICAL RECORD, PATIENT IS FULL CODE ? TUBE FEEDINGS (HAD BEFORE AND NOT NOW). INTAKE NOW VARIABLE FROM 25/50/75% ON PUREED AND NECTAR THICK LIQUIDS. PLAN: CONTINUE WITH PO FOR QUALITY OF LIFE, CONSIDER DOWNGRADE TO LIQUIFIED PUREED LIKE NECTAR THICK SOUP WITH POSTED ASPIRATION/REFLUX PRECAUTIONS (ON GERD MEDS) SEND HIGH RUBEN SUP PER RD AND LIBERALIZE DIET PER RN. CONSIDER MOD BARIUM SWALLOW STUDY WHEN MORE ALERT TO FURTHER ASSESS SWALLOW, DETERMINE SILENT ASP RISK, AND ATTEMPT TRIAL TX. ADDENDUM: AROUND 1 PM TODAY, PER JAMEY RIOS, PATIENT NOW COUGHING ON NECTAR THICK LIQUIDS TSP. PER RTJARRED, PATIENT NEEDS SUCTION AND HAS SIGNIFICANT SECRETIONS AND DESATURATED TO THE 60s WITH ALL OF THE COUGHING AND SECRETIONS. WILL HOLD ON PO INTAKE FOR NOW. PATIENT NOT STABLE ENOUGH TO GO DOWN FOR MODIFIED BARIUM SWALLOW STUDY TODAY. PLAN: CONSIDER KEEPING NPO AND CONTINUE WITH ORAL CARE/SUCTION. CONSIDER NONORAL FEEDINGS (TEMPORARY 12 [address] NGT) FOR NOW UNTIL HE IS STABLE ENOUGH FOR MODIFIED BARIUM SWALLOW STUDY LEFT MESSAGE WITH DR BLACKBURN TO TALK TO FAMILY TO SEE IF THEY ARE RECEPTIVE TO NONORAL FEEDINGS.
--- NOTE | 2019-04-13 13:15 | NUR ---
poX 90% r.t called to draw state abg
--- NOTE | 2019-04-13 13:18 | NUR ---
RD ASSESSMENT & RECOMMENDATIONS SEE CARE ACTIVITY FOR COMPLETE ASSESSMENT DAILY ESTIMATED NEEDS: Needs based on Underweight, cancer, pulmonary 54.7kg 30-35 kcals/kg 8013-0995 total kcals 1.2-2 g protein/kg 65-109 g total protein 25-30 mL/kg 8114-0448 total fluid mLs NUTRITION DIAGNOSIS: Underweight r/t cancer? as evidenced by pt w/ prostate cancer, elevated antigen and calium levels, w/ generalized moderate wasting, previously poor po intake, pt is 81% of Griffith body Weight, currently s/p code blue, now extubated, NGT feeds dc'ed, seen by ORANGE PICKER w/ rec for liquify pureed, NTL for quality of life. . CURRENT DIET:REGULAR, liquify pureed, NTL PO DIET RECOMMENDATIONS: REGULAR/ texture per ORANGE PICKER ADDITIONAL RECOMMENDATIONS: 1) Recalibrated bed wts for daily wts 2) Add KATIE BID for wounds + Vit C 250mg daily 3) Monitor lytes, replete as needed 4) Monitor Ca: critically elev -> decrease Ensure to 4oz TID. -> monitor PO intake and Ca level closely, need to limit dairy products: poor PO at this time. Addendum: 04/13/19 at [address] ADDENDUM: ORANGE PICKER now recommends "CONSIDER KEEPING NPO AND CONTINUE WITH ORAL CARE/SUCTION. CONSIDER NONORAL FEEDINGS (TEMPORARY 12 ALBANIAN NGT) FOR NOW UNTIL HE IS STABLE ENOUGH FOR MODIFIED BARIUM SWALLOW STUDY LEFT MESSAGE WITH DR BLACKBURN TO TALK TO FAMILY TO SEE IF THEY ARE RECEPTIVE TO NONORAL FEEDINGS. " IF TF PART OF POC: RECOMMEND -> Nepro @ 38ml/hr x 24 hrs to provide 912ml, 1614kcal, 79g prot, 663ml free water * Rec Nepro (will give the lowest amount of calcium compared to other formulas available at [facility] while meeting nutritional needs). * Initiate Nepro @ 18ml/hr x 6 hrs, advance 10ml q 4-6 hrs as tolerated to goal rate * At goal, TF will provide 966mg Ca per day. * HOB over 30 degrees/ water flush of 150ml q
--- NOTE | 2019-04-13 13:46 | NUR ---
hr decrease to 20 code pt. become unresponsive code blue called
--- NOTE | 2019-04-13 13:50 | NUR ---
NURSE NOTES: Dr. Toussaint made aware of code blue. said to inform Cardio and Pulmo in the case. And to transfer patient to ICU.
--- NOTE | 2019-04-13 13:53 | NUR ---
NURSE NOTES: Dr. Cortez made aware of code blue via telephone.
[2019-04-13] MEDS ORDERED: Alteplase 100mg Inj ONE (13:58)
--- NOTE | 2019-04-13 14:00 | NUR ---
NURSE NOTES: Next of kin Amy De Leon made aware of Code blue via telephone.
--- NOTE | 2019-04-13 14:03 | NUR ---
NURSE NOTES: Dr. Mathews made aware of Code Blue via telephone.
--- NOTE | 2019-04-13 14:30 | NUR ---
NURSE NOTES: Pt and report received from BLANCA Soto. Pt s/p code blue. Pupils 3mm and sluggish BL. Pt orally intubated 7.5, 24cm @ the lip line, AC 20 TV 500 FiO2 50%, PEEP 5. O2Sat 100% on monitor. Pt is tachycardic and hypotensive. Bolus 1L NS given. Temp 96.5, [place] hugger applied to raise temperature. Pt has a Lt FA and Lt wrist #22g. Also has a Right hand #18g. Pt has a Morales catheter, draining yellow urine to urometer. Bed locked and in lowest position. Will resume plan of care and follow up with cardio and pulmo for possible central line insertion to start B/P support.
--- NOTE | 2019-04-13 14:38 | Emergency Room Report ---
History of Present Illness General Chief Complaint: Generalized Weakness Source: Medical Record, PMD Present Illness HPI 73-year-old male history of hyperkalemia, prostate cancer, presents with failure to thrive, I was called upstairs for emergent CODE BLUE, patient lost pulses, CPR was performed please refer to MDM for rest of history Allergies: Coded Allergies: No Known Allergies (Unverified , 04/03/19) Patient History Limited by: medical condition - Unresponsive Past Medical History: see triage record, old chart reviewed Reviewed Nursing Documentation: PMH: Agreed; PSxH: Agreed Nursing Documentation-PMH Past Medical History: No History, Except For Hx Cardiac Problems: Yes Hx Hypertension: Yes Hx COPD: Yes Hx Cancer: Yes - PROSTATE CA Hx Gastrointestinal Problems: No Hx Neurological Problems: No Review of Systems All Other Systems: limited - Currently unresponsive Physical Exam Vital Signs Date Time Temp Pulse Resp B/P (MAP) Pulse Ox O2 Delivery O2 Flow Rate FiO2 04/09/19 07:00 120 28 139/101 (114) 100 04/09/19 07:19 Cool Aerosol 10.0 40 04/09/19 08:00 97.9 Sp02 EP Interpretation: reviewed General Appearance: severe distress, Chronically Ill Head: normocephalic, atraumatic ENT: other - Secretions pooling in the mouth Respiratory: other, chest symmetrical - Lungs rhonchus to bagging Cardiovascular #1: other - No pulse Gastrointestinal: no mass, non-distended Neuologic: Unresponsive Procedures Critical Care Time Critical Care Time Given the critical condition in which the patient arrived, the patient was immediately assessed by myself and the nurse, and cardiac monitoring initiated due to the potential for rapid decompensation of the patient's clinical condition. During the course of the patient's stay, I spent a considerable amount of time at the bedside performing serial re-evaluations of the patient's hemodynamic and clinical status because of the recognized potential threat to life or limb in this condition. I then had a chance to review not only all of the available current laboratory and radiographic studies obtained today, but I also reviewed old records available to me at the time. Additionally, any ancillary information available including talent agent records were reviewed. Sequential vital signs were obtained. Critical Care time of 33 minutes was performed exclusive of billable procedures. CPR/Code Blue CPR/Code Blue Narrative Please refer to nursing sheet epinephrine given x3 Intubation Intubation : Consent: Emergent Time of Intubation: 14:05 Intubation Method: orotracheal Tube Size (cm): 7.5 Medications: Etomidate, Rocuronium Breath Sounds after Intubation: equal Intubation Complications: no complications Post Intubation Xray: Yes Progress/Xray Impression: Endotracheal tube well-seated Attempts: One Patient Tolerated: Well Complications: None Medical Decision Making Diagnostic Impression: Primary Impression: Episode of generalized weakness Additional Impressions: Stage III adenocarcinoma of prostate Dehydration Cardiac arrest ER Course 73-year-old male in cardiac arrest, CPR per nursing notes, ROSC was achieved Patient required multiple rounds of epinephrine additionally patient required intubation Additionally patient needed coordination of care for central line placement as well as making primary aware Patient was then transferred to ICU for further management Last Vital Signs Date Time Temp Pulse Resp B/P (MAP) Pulse Ox O2 Delivery O2 Flow Rate FiO2 04/13/19 09:11 137/86 04/13/19 08:00 96.8 104 22 98 04/13/19 07:29 Nasal Cannula 3.0 32 Disposition: ADMITTED INPATIENT Condition: Critical Referrals: NOT CHOSEN IPA/,REFERRING (PCP) Osbaldo Martinez MD Apr 13, 2019 14:38
[2019-04-13] MEDS ORDERED: Albuterol/Ipratropium 3ml neb HHN PRN (15:00)
--- NOTE | 2019-04-13 15:21 | NUR ---
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 98.7 HR 116 RR 16 B/P 137/60 AC 16 TV 500 FIO2 100% PEEP 5 NA 156 CA 13.2 BUN 20 IS: PAMIDRONATE IV PROTONIX IVF D5@ 75ML/HR ALB INLINE TX ICU STATUS
--- NOTE | 2019-04-13 16:00 | NUR ---
NURSE NOTES: Right femoral TLC placed by Dr Acevedo for the purpose to B/P support with irritating drips. Levophed ordered.
--- NOTE | 2019-04-13 16:05 | NUR ---
NURSE NOTES: Spoke with daughter in law Amy and updated her on pt's current condition as well as answering any questions she had.
--- NOTE | 2019-04-13 16:24 | Pulmonology Progress Note ---
Assessment/Plan Assessment/Plan IMPRESSION: 1. Status post asystolic cardiac arrest. 2. Respiratory failure, now extubated 3. Altered mental status. Improved. 4. Hypernatremia. Corrected. 5. Hypokalemia . Corrected. 6. History of COPD. 7. Prostate CA. DISCUSSION: 1. Discussed with bedside nursing. 2. Will dc Zolft 3. Discussed with Dr. Sawyer Toussaint. 4. On nasal o2 5. Monitor in CARMEN 6. Swallow eval noted; on PO diet now Later I was informed that pt suffered code blue Ganesh Mathews M.D. Subjective Interval Events: Seen earlier today; was sitting up in bed; later I was informed of code mary Constitutional: Reports: no symptoms HEENT: Repors: no symptoms Respiratory: Reports: no symptoms Cardiovascular: Reports: no symptoms Allergies: Coded Allergies: No Known Allergies (Unverified , 04/03/19) Objective Last 24 Hour Vital Signs Date Time Temp Pulse Resp B/P (MAP) Pulse Ox O2 Delivery O2 Flow Rate FiO2 04/13/19 15:39 50 04/13/19 14:36 114 16 100 Mechanical Ventilator 50.0 100 04/13/19 14:30 Mechanical Ventilator Mechanical Ventilator 04/13/19 14:30 116 16 100 04/13/19 12:00 110 04/13/19 12:00 98.7 104 22 137/90 (106) 98 04/13/19 12:00 Nasal Cannula 3.0 Nasal Cannula 3.0 04/13/19 09:11 137/86 04/13/19 08:00 Nasal Cannula 3.0 Nasal Cannula 3.0 04/13/19 08:00 96.8 104 22 129/79 (96) 98 04/13/19 08:00 111 04/13/19 07:29 106 20 98 Nasal Cannula 3.0 32 92 20 96 04/13/19 07:29 96 Nasal Cannula 3.0 32 04/13/19 04:00 106 04/13/19 04:00 98.3 105 22 137/86 (103) 98 04/13/19 04:00 Nasal Cannula 3.0 Nasal Cannula 3.0 04/13/19 01:37 116 20 100 Nasal Cannula 3.0 32 113 20 99 04/13/19 00:00 Nasal Cannula 3.0 Nasal Cannula 3.0 04/13/19 00:00 98.0 103 20 124/78 (93) 97 04/13/19 00:00 109 04/12/19 20:37 126/79 04/12/19 20:00 97.6 97 20 127/79 (95) 95 04/12/19 20:00 100 04/12/19 20:00 Nasal Cannula 3.0 Nasal Cannula 3.0 04/12/19 19:55 98 Nasal Cannula 2.0 28 04/12/19 19:52 104 20 100 Nasal Cannula 3.0 32 101 20 99 Intake and Output 04/12/19 04/13/19 19:00 07:00 Intake Total 460 ml Output Total 402 ml 801 ml Balance 58 ml -801 ml Intake Oral 360 ml IV Total 100 ml Output Urine Total 400 ml 800 ml Stool Total 2 ml 1 ml # Bowel Movements 2 General Appearance: no acute distress HEENT: normocephalic Respiratory/Chest: chest wall non-tender, lungs clear Cardiovascular: normal peripheral pulses, normal rate Abdomen: normal bowel sounds, soft, non tender Extremities: no cyanosis Laboratory Tests 04/13/19 03:50: White Blood Count 7.5, Red Blood Count 3.85L, Hemoglobin 11.1L, Hematocrit 33.0L , Mean Corpuscular Volume 86, Mean Corpuscular Hemoglobin 28.8, Mean Corpuscular Hemoglobin Concent 33.5, Red Cell Distribution Width 15.7H, Platelet Count 141L, Mean Platelet Volume 4.9L, Neutrophils (%) (Auto) 77.8H, Lymphocytes (%) (Auto) 11.4L, Monocytes (%) (Auto) 6.0, Eosinophils (%) (Auto) 4.0H, Basophils (%) (Auto) 0.7, Sodium Level 156H, Potassium Level 4.2, Chloride Level 119H, Carbon Dioxide Level 33H, Anion Gap 4L, Blood Urea Nitrogen 20H, Creatinine 1.2, Estimat Glomerular Filtration Rate , Glucose Level 104, Calcium Level 13.2*H 04/13/19 15:21: Arterial Blood pH 7.302L, Arterial Blood Partial Pressure CO2 58.4*H, Arterial Blood Partial Pressure O2 459.8H, Arterial Blood HCO3 28.2H, Arterial Blood Oxygen Saturation 99.0, Arterial Blood Base Excess 1.1, Antonio Test Positive Current Medications Medications (Trade) Dose Ordered Sig/[place] Route PRN Reason Start Time Stop Time Status Last Admin Dose Admin Albuterol/ Ipratropium (Albuterol/ Ipratropium) 3 ml Q6H PRN HHN Shortness of Breath 04/13/19 15:00 04/14/19 20:59 Albuterol/ Ipratropium (Albuterol/ Ipratropium) 3 ml Q6HRT HHN 04/13/19 19:00 04/15/19 12:59 Calcitonin [place] (Miacalcin) 1 sprays DAILY NASAL 04/14/19 09:00 05/10/19 13:29 Chlorhexidine Gluconate (Martha-Hex 2%) 1 applic DAILY@2000 TOPIC 04/13/19 20:00 05/06/19 19:59 Dextrose 1,000 ml @ 50 mls/hr Q20H IV 04/13/19 14:45 05/12/19 13:14 04/13/19 15:25 Enoxaparin Sodium (Lovenox) 30 mg DAILY SUBQ 04/14/19 09:00 05/04/19 08:59 Hydralazine HCl (Apresoline) 10 mg Q12HR NG 04/13/19 21:00 05/10/19 17:59 Hydralazine HCl (Apresoline) 10 mg Q4H PRN IV SBP > 170mmHg 04/13/19 15:00 05/08/19 14:59 Lansoprazole (Prevacid) 30 mg DAILY ORAL 04/14/19 09:00 05/13/19 08:59 Memantine (Namenda) 5 mg BID ORAL 04/13/19 18:00 05/04/19 17:59 Norepinephrine Bitartrate 4 mg/ Dextrose 250 ml @ 0 mls/hr Q24H IV 04/13/19 17:00 05/13/19 16:59 Tamsulosin HCl (Flomax) 0.4 mg BEDTIME ORAL 04/13/19 21:00 05/13/19 20:59 Ganesh Mathews MD Apr 13, 2019 16:24
--- NOTE | 2019-04-13 16:45 | Progress Note ---
DATE: 04/13/2019 SUBJECTIVE: This is a 73-year-old male patient who has generalized weakness, altered mental status, confusion, and decline in cognition below his baseline. That is why his attending has requested a daily psychiatric consultation at this time. MENTAL STATUS EXAMINATION: This is a 73-year-old male patient. Appearance is disheveled. Attitude, irritable and agitated. Affect, guarded and restricted. Intellect, poor. Mood, depressed and anxious. Motor activity, psychomotor agitation. Attention span is poor. Orientation x2. Speech is pressured. Thought process is disorganized and illogical. Insight and judgment is poor. DIAGNOSIS: Major depressive disorder, mild, recurrent with psychotic features, rule out dementia with psychosis. PLAN: Treat the patient with psychotropic medication regimen consisting of Zoloft 25 mg daily and Namenda 5 mg twice a day. A 20 minutes of cognitive behavioral therapy to help him identify his automatic negative thoughts and help convert those negative thoughts to more positive thoughts to reduce depression, anxiety, and mood lability. Chart reviewed. Discussed with staff. Seen and assessed at bedside. Cherise Palma M.D. DR: ACE JOB#: [id number] CC:
--- NOTE | 2019-04-13 16:56 | Surgery Progress Note ---
Surgery Progress Note Subjective Procedure Performed right subclavian central venous catheter insertion Additional Comments Patient became bradycardic and then unresponsive and cardiovascular compromise requiring ACLS for resuscitation reintubated transferred to the intensive care unit Prior central catheter had been removed and currently hypotensive tachycardic on ventilatory support requiring pressors Objective Last 24 Hour Vital Signs Date Time Temp Pulse Resp B/P (MAP) Pulse Ox O2 Delivery O2 Flow Rate FiO2 04/13/19 15:39 50 04/13/19 14:36 114 16 100 Mechanical Ventilator 50.0 100 04/13/19 14:30 Mechanical Ventilator Mechanical Ventilator 04/13/19 14:30 116 16 100 04/13/19 12:00 110 04/13/19 12:00 98.7 104 22 137/90 (106) 98 04/13/19 12:00 Nasal Cannula 3.0 Nasal Cannula 3.0 04/13/19 09:11 137/86 04/13/19 08:00 Nasal Cannula 3.0 Nasal Cannula 3.0 04/13/19 08:00 96.8 104 22 129/79 (96) 98 04/13/19 08:00 111 04/13/19 07:29 106 20 98 Nasal Cannula 3.0 32 92 20 96 04/13/19 07:29 96 Nasal Cannula 3.0 32 04/13/19 04:00 106 04/13/19 04:00 98.3 105 22 137/86 (103) 98 04/13/19 04:00 Nasal Cannula 3.0 Nasal Cannula 3.0 04/13/19 01:37 116 20 100 Nasal Cannula 3.0 32 113 20 99 04/13/19 00:00 Nasal Cannula 3.0 Nasal Cannula 3.0 04/13/19 00:00 98.0 103 20 124/78 (93) 97 04/13/19 00:00 109 04/12/19 20:37 126/79 04/12/19 20:00 97.6 97 20 127/79 (95) 95 04/12/19 20:00 100 04/12/19 20:00 Nasal Cannula 3.0 Nasal Cannula 3.0 04/12/19 19:55 98 Nasal Cannula 2.0 28 04/12/19 19:52 104 20 100 Nasal Cannula 3.0 32 101 20 99 I&O Intake and Output 04/12/19 04/13/19 19:00 07:00 Intake Total 460 ml Output Total 402 ml 801 ml Balance 58 ml -801 ml Intake Oral 360 ml IV Total 100 ml Output Urine Total 400 ml 800 ml Stool Total 2 ml 1 ml # Bowel Movements 2 Dressing: other Wound: other Drains: other Cardiovascular: other Respiratory: decreased breath sounds, other Abdomen: other, non-distended, decreased bowel sounds Extremities: no edema, no cyanosis, other Laboratory Tests Test 04/13/19 03:50 04/13/19 15:21 White Blood Count 7.5 K/UL (4.8-10.8) Red Blood Count 3.85 M/UL (4.70-6.10) L Hemoglobin 11.1 G/DL (14.2-18.0) L Hematocrit 33.0 % (42.0-52.0) L Mean Corpuscular Volume 86 FL (80-99) Mean Corpuscular Hemoglobin 28.8 PG (27.0-31.0) Mean Corpuscular Hemoglobin Concent 33.5 G/DL (32.0-36.0) Red Cell Distribution Width 15.7 % (11.6-14.8) H Platelet Count 141 K/UL (150-450) L Mean Platelet Volume 4.9 FL (6.5-10.1) L Neutrophils (%) (Auto) 77.8 % (45.0-75.0) H Lymphocytes (%) (Auto) 11.4 % (20.0-45.0) L Monocytes (%) (Auto) 6.0 % (1.0-10.0) Eosinophils (%) (Auto) 4.0 % (0.0-3.0) H Basophils (%) (Auto) 0.7 % (0.0-2.0) Sodium Level 156 MMOL/L (136-145) H Potassium Level 4.2 MMOL/L (3.5-5.1) Chloride Level 119 MMOL/L (98-107) H Carbon Dioxide Level 33 MMOL/L (21-32) H Anion Gap 4 mmol/L (5-15) L Blood Urea Nitrogen 20 mg/dL (7-18) H Creatinine 1.2 MG/DL (0.55-1.30) Estimat Glomerular Filtration Rate mL/min (>60) Glucose Level 104 MG/DL (74-106) Calcium Level 13.2 MG/DL (8.5-10.1) *H Arterial Blood pH 7.302 (7.350-7.450) Arterial Blood Partial Pressure CO2 58.4 mmHg (35.0-45.0) *H Arterial Blood Partial Pressure O2 459.8 mmHg (75.0-100.0) H Arterial Blood HCO3 28.2 mmol/L (22.0-26.0) H Arterial Blood Oxygen Saturation 99.0 % (95-100) Arterial Blood Base Excess 1.1 (-2-2) Antonio Test Positive Plan Problems: (1) Cardiac arrest Assessment & Plan: Acute deterioration Cardiovascular lopez ACLS required for resuscitation Still full code Hypotensive intensive care unit requiring a new central venous catheter see note Antibiotics as per infectious caries Hold tube feeds Vent management cont current treatment will follow with recs thank you (2) Stage III adenocarcinoma of prostate Assessment & Plan: patient with state 3 prostate cancer pending treatment at [facility] unlikely related to acute cardiac arrest this am abd exam with mild distention pending KUB no acute surgical intervention planned onc input thank you will follow with Jay Conrad Apr 13, 2019 16:56
--- NOTE | 2019-04-13 16:58 | Operative Note - PDOC ---
Operative Note Operative Note Date of Operation/Procedure: Apr 13, 2019 Pre-op Diagnosis: respiratory insufficiency cardiovascular compromise s/p code ACLS resuscitation hypotension Procedure: right femoral central venous catheter insertion Post-op Diagnosis: same as pre-op Surgeon: evaristo acevedo md Anesthesia: local Specimen: none Complications: none Condition: unstable Fluids: n/a Estimated Blood Loss: minimal Drains: none Implant(s) used?: No Indications for Procedure Patient had an acute cardiovascular compromise requiring ACLS resuscitation intubated currently in the intensive care unit hypotensive requiring pressors no central venous access currently emergency line placement necessary and indicated given patient's CODE STATUS current medical condition resuscitation necessary. Description of Procedure Patient was made comfortable at bedside in the supine position. The right groin was prepped draped in sterile surgical fashion. Local anesthetic was infiltrated in the proposed skin insertion site. A finder needle was used and the right femoral vein was cannulated on first stick. Venous blood was clearly identified and the guidewire was placed through the needle. The needle was removed and discarded. A small skin incision was made around the guidewire and the dilator was used and the tract was dilated. A triple-lumen catheter was inserted over the guidewire and the guidewire removed and discarded. All 3 ports flushed and aspirated without complication good venous blood flow noted line sutured in place and dressings applied. Patient tolerated procedure well. Line okay to use continue dressing changes will monitor Evaristo Acevedo Apr 13, 2019 16:58
--- NOTE | 2019-04-13 17:01 | Diagnostic Imaging Report ---
Indication: Dyspnea Comparison: 04/08/2019 A single view chest radiograph was obtained. Findings: Endotracheal tube is in good position. Leads and pads overlying the patient Limited evaluation. Heart size appears normal. There is suggestion of mild congestion bilaterally within the lungs. IMPRESSION: Suspected pulmonary vascular congestion.
--- NOTE | 2019-04-13 17:12 | NUR ---
NURSE NOTES: Pt beginning to wake up, moving arms and legs, observed to be reaching for ETT. Restraints initiated for safety at 17:07
[2019-04-13] MEDS: Morphine Sulfate 2mg/ml Inj(IV/IM USE ONLY) IVP PRN ×2 (18:09→23:51)
--- NOTE | 2019-04-13 18:45 | NUR ---
NURSE NOTES: Troponin blood draw done and Pt remains on Levophed 10mcg/min. Pt responded well to Morphine 1MG PRN, notably much calmer than previously noted. No distress noted
--- NOTE | 2019-04-13 19:05 | Hematology/Onc Progress Note ---
Assessment/Plan Assessment/Plan # Prostate cancer stage IV with psa >700, cr is worse, hydronephrosis noted, seen by renal, Dr. White. --> i did received records from [facility]. has regional lymphadenopathy, s/p transrectal biopsy with Gleasons 5+5 (2010) in all cores, apparently has had a 3 year course of androgen deprivation from 2011- 2014.also status post RADIATION to the prostate, then lost to followup. Following surviellance psa 0.45-->65, in 10/2016, and up to 127 in 12/2016, Ct scan showed recurrence of disease with lad but no bony mets, started on lupron 01/2017, psa fell yo 73-->46, has been sarted on zytiga + prednisone, and now psa progression on zytiga, he started xtandi in 01/2019 Psa 87. He did not go through urethral stenting, he has deferred treatment with chemo. --> He is a very poor historian, I have talked to the sister --> imaging has been noted --> as per urology recs, reviewed --> have called , no answer, trans to [facility]? --> poor prognosis given above history of treatment, defer transfer to [facility] --> psa 737-->757 --> CT ABD 04/10: Evidence of advanced metastatic neoplasm likely secondary to prostate carcinoma. Extensive retroperitoneal and pelvic lymphadenopathy complicated by presence of bilateral hydroureteronephrosis. Extensive metastatic disease involving the bones also noted. Status post seed implant radiation therapy to the prostate gland. # Hypercalcemia -- now acutely worse --> trend Ca++ 8.1-->13-->12-->10.3-->10.7 --> ivf has been started --> as per nephrology --> consider pamidronate v calcitonin v other agent # Anemia due to underlying malignancy --> hgb trend as needed 9.2-->7-->10.9-->11 --> no hemolysis is noted --> no bleeding # Episode of generalized weakness --> on ivf --> pt as needed # Hypokalemia --> replete prn # Dehydration --> on ivf # Atrophic changes without evident intracranial hemorrhage. --> as per neuro, remains confused # Respiratory failure s/p vent --> s/p vent intubated on 04/06 --> 04/08 was extubated # Hypernatremia as well as low BUN. --> on ivf # Poor prognosis # Dvt ppx lovenox sq Appreciate consultation and Jemal Rn Subjective Allergies: Coded Allergies: No Known Allergies (Unverified , 04/03/19) Subjective 04/06: no events, apparently intubated today and transferred to the icu, will dw family 04/07: remains in the icu, critically ill, Ca++ 12, on vent, minimally responsive , on dopa, dw pcp and pulm 04/08: no major changes, no night sweats, labs have been reviewed, dw daughter, he is more alert 04/10: awake, no acute events ct abd reviewed, stool ob negative 04/12: labs reviewed, nc, tachy, ceftriaxone, no sob 04/13: lethargic, nc 3l, no acute distress, labs reviewed Objective Objective Current Medications Medications (Trade) Dose Ordered Sig/[place] Route PRN Reason Start Time Stop Time Status Last Admin Dose Admin Albuterol/ Ipratropium (Albuterol/ Ipratropium) 3 ml Q6H PRN HHN Shortness of Breath 04/13/19 15:00 04/14/19 20:59 Albuterol/ Ipratropium (Albuterol/ Ipratropium) 3 ml Q6HRT HHN 04/13/19 19:00 04/15/19 12:59 Calcitonin Karthaus (Miacalcin) 1 sprays DAILY NASAL 04/14/19 09:00 05/10/19 13:29 Chlorhexidine Gluconate (Martha-Hex 2%) 1 applic DAILY@2000 TOPIC 04/13/19 20:00 05/06/19 19:59 Dextrose 1,000 ml @ 50 mls/hr Q20H IV 04/13/19 14:45 05/12/19 13:14 04/13/19 15:25 Enoxaparin Sodium (Lovenox) 30 mg DAILY SUBQ 04/14/19 09:00 05/04/19 08:59 Hydralazine HCl (Apresoline) 10 mg Q12HR NG 04/13/19 21:00 05/10/19 17:59 Hydralazine HCl (Apresoline) 10 mg Q4H PRN IV SBP > 170mmHg 04/13/19 15:00 05/08/19 14:59 Lansoprazole (Prevacid) 30 mg DAILY ORAL 04/14/19 09:00 05/13/19 08:59 Memantine (Namenda) 5 mg BID ORAL 04/13/19 18:00 05/04/19 17:59 Morphine Sulfate (Morphine Sulfate) 1 mg Q4H PRN IVP PAIN 4-10 04/13/19 18:00 04/20/19 17:59 04/13/19 18:09 Norepinephrine Bitartrate 4 mg/ Dextrose 250 ml @ 0 mls/hr Q24H IV 04/13/19 17:00 05/13/19 16:59 04/13/19 17:01 Tamsulosin HCl (Flomax) 0.4 mg BEDTIME ORAL 04/13/19 21:00 05/13/19 20:59 Last 24 Hour Vital Signs Date Time Temp Pulse Resp B/P (MAP) Pulse Ox O2 Delivery O2 Flow Rate FiO2 04/13/19 18:00 93/59 04/13/19 17:20 118 14 50 04/13/19 17:01 74/56 04/13/19 16:45 106 22 74/56 (62) 97 04/13/19 16:30 111 18 89/68 (75) 100 04/13/19 16:15 105 25 88/70 (76) 100 04/13/19 16:12 103 04/13/19 16:00 Mechanical Ventilator Mechanical Ventilator 04/13/19 16:00 97.0 104 20 88/70 (76) 98 04/13/19 15:39 50 04/13/19 14:36 114 16 100 Mechanical Ventilator 50.0 100 04/13/19 14:30 Mechanical Ventilator Mechanical Ventilator 04/13/19 14:30 116 16 100 04/13/19 12:00 110 04/13/19 12:00 98.7 104 22 137/90 (106) 98 04/13/19 12:00 Nasal Cannula 3.0 Nasal Cannula 3.0 04/13/19 09:11 137/86 04/13/19 08:00 Nasal Cannula 3.0 Nasal Cannula 3.0 04/13/19 08:00 96.8 104 22 129/79 (96) 98 2/10/20 08:00 111 04/13/19 07:29 106 20 98 Nasal Cannula 3.0 32 92 20 96 04/13/19 07:29 96 Nasal Cannula 3.0 32 04/13/19 04:00 106 04/13/19 04:00 98.3 105 22 137/86 (103) 98 04/13/19 04:00 Nasal Cannula 3.0 Nasal Cannula 3.0 04/13/19 01:37 116 20 100 Nasal Cannula 3.0 32 113 20 99 04/13/19 00:00 Nasal Cannula 3.0 Nasal Cannula 3.0 04/13/19 00:00 98.0 103 20 124/78 (93) 97 04/13/19 00:00 109 04/12/19 20:37 126/79 04/12/19 20:00 97.6 97 20 127/79 (95) 95 04/12/19 20:00 100 04/12/19 20:00 Nasal Cannula 3.0 Nasal Cannula 3.0 04/12/19 19:55 98 Nasal Cannula 2.0 28 04/12/19 19:52 104 20 100 Nasal Cannula 3.0 32 101 20 99 04/12/19 16:00 113 04/12/19 16:00 97.8 115 20 158/98 (118) 93 04/12/19 16:00 Nasal Cannula 3.0 Nasal Cannula 3.0 04/12/19 13:16 110 22 100 Nasal Cannula 3.0 32 106 22 96 04/12/19 12:00 113 04/12/19 12:00 Nasal Cannula 3.0 Nasal Cannula 3.0 04/12/19 12:00 98.2 119 18 126/58 (80) 100 04/12/19 09:24 127/84 04/12/19 08:00 Nasal Cannula 3.0 Nasal Cannula 3.0 04/12/19 08:00 98.0 110 18 127/84 (98) 100 04/12/19 08:00 107 04/12/19 07:11 130 26 95 Nasal Cannula 2.0 28 111 24 97 04/12/19 07:01 97 Nasal Cannula 2.0 28 04/12/19 04:00 Nasal Cannula 3.0 Nasal Cannula 3.0 04/12/19 04:00 106 04/12/19 04:00 97.6 115 20 151/89 (109) 100 04/12/19 01:10 120 18 97 Nasal Cannula 2.0 28 117 18 93 04/12/19 00:00 Nasal Cannula 3.0 Nasal Cannula 3.0 04/12/19 00:00 110 04/12/19 00:00 97.5 114 22 148/90 (109) 100 04/11/19 20:28 144/85 04/11/19 20:00 97.7 120 24 144/85 (104) 95 04/11/19 20:00 Nasal Cannula 3.0 Nasal Cannula 3.0 04/11/19 20:00 117 Intake and Output 04/12/19 04/13/19 19:00 07:00 Intake Total 460 ml Output Total 402 ml 801 ml Balance 58 ml -801 ml Intake Oral 360 ml IV Total 100 ml Output Urine Total 400 ml 800 ml Stool Total 2 ml 1 ml # Bowel Movements 2 Labs Test 04/11/19 04:10 04/12/19 04:00 04/13/19 03:50 04/13/19 15:21 White Blood Count 7.7 K/UL (4.8-10.8) 10.7 K/UL (4.8-10.8) 7.5 K/UL (4.8-10.8) Red Blood Count 3.34 M/UL (4.70-6.10) 3.84 M/UL (4.70-6.10) 3.85 M/UL (4.70-6.10) Hemoglobin 9.6 G/DL (14.2-18.0) 11.0 G/DL (14.2-18.0) 11.1 G/DL (14.2-18.0) Hematocrit 28.6 % (42.0-52.0) 32.9 % (42.0-52.0) 33.0 % (42.0-52.0) Mean Corpuscular Volume 85 FL (80-99) 86 FL (80-99) 86 FL (80-99) Mean Corpuscular Hemoglobin 28.7 PG (27.0-31.0) 28.6 PG (27.0-31.0) 28.8 PG (27.0-31.0) Mean Corpuscular Hemoglobin Concent 33.6 G/DL (32.0-36.0) 33.4 G/DL (32.0-36.0) 33.5 G/DL (32.0-36.0) Red Cell Distribution Width 16.2 % (11.6-14.8) 16.0 % (11.6-14.8) 15.7 % (11.6-14.8) Platelet Count 115 K/UL (150-450) 118 K/UL (150-450) 141 K/UL (150-450) Mean Platelet Volume 5.4 FL (6.5-10.1) 5.1 FL (6.5-10.1) 4.9 FL (6.5-10.1) Neutrophils (%) (Auto) 78.3 % (45.0-75.0) 81.1 % (45.0-75.0) 77.8 % (45.0-75.0) Lymphocytes (%) (Auto) 8.2 % (20.0-45.0) 7.7 % (20.0-45.0) 11.4 % (20.0-45.0) Monocytes (%) (Auto) 8.6 % (1.0-10.0) 7.1 % (1.0-10.0) 6.0 % (1.0-10.0) Eosinophils (%) (Auto) 4.2 % (0.0-3.0) 3.4 % (0.0-3.0) 4.0 % (0.0-3.0) Basophils (%) (Auto) 0.7 % (0.0-2.0) 0.7 % (0.0-2.0) 0.7 % (0.0-2.0) Sodium Level 155 MMOL/L (136-145) 158 MMOL/L (136-145) 156 MMOL/L (136-145) Potassium Level 3.4 MMOL/L (3.5-5.1) 3.2 MMOL/L (3.5-5.1) 4.2 MMOL/L (3.5-5.1) Chloride Level 117 MMOL/L (98-107) 119 MMOL/L (98-107) 119 MMOL/L (98-107) Carbon Dioxide Level 30 MMOL/L (21-32) 31 MMOL/L (21-32) 33 MMOL/L (21-32) Anion Gap 8 mmol/L (5-15) 8 mmol/L (5-15) 4 mmol/L (5-15) Blood Urea Nitrogen 28 mg/dL (7-18) 25 mg/dL (7-18) 20 mg/dL (7-18) Creatinine 1.7 MG/DL (0.55-1.30) 1.5 MG/DL (0.55-1.30) 1.2 MG/DL (0.55-1.30) Estimat Glomerular Filtration Rate mL/min (>60) mL/min (>60) mL/min (>60) Glucose Level 94 MG/DL (74-106) 94 MG/DL (74-106) 104 MG/DL (74-106) Calcium Level 12.0 MG/DL (8.5-10.1) 12.8 MG/DL (8.5-10.1) 13.2 MG/DL (8.5-10.1) Arterial Blood pH 7.302 (7.350-7.450) Arterial Blood Partial Pressure CO2 58.4 mmHg (35.0-45.0) Arterial Blood Partial Pressure O2 459.8 mmHg (75.0-100.0) Arterial Blood HCO3 28.2 mmol/L (22.0-26.0) Arterial Blood Oxygen Saturation 99.0 % (95-100) Arterial Blood Base Excess 1.1 (-2-2) Antonio Test Positive Height (Feet): 5 Height (Inches): 7.00 Weight (Pounds): 131 Objective General: normal inspection, alert, Chronically Ill Respiratory: s/p vent++ Cardiovascular: regular rate, rhythm, no edema Gastrointestinal: normal inspection, normal bowel sounds Genitourinary: no CVA tenderness Mus: normal inspection, back normal, normal range of motion Neurologic: alert, motor strength/tone normal, oriented + confused Psychiatric: normal inspection, judgement/insight normal Skin: no rash Andreas Monroy MD Apr 13, 2019 19:05
--- NOTE | 2019-04-13 19:17 | NUR ---
HAND-OFF: Report given to BLANCA Walsh and BLANCA Madison.
[2019-04-13 19:30] LABS: BASOPHILS % (AUTO) 0.9 % (0.0-2.0); EOSINOPHILS % (AUTO) 2.6 % (0.0-3.0); HEMATOCRIT 32.5 % (42.0-52.0); HEMOGLOBIN 9.7 G/DL (14.2-18.0); LYMPHOCYTES % (AUTO) 8.2 % (20.0-45.0); MEAN CORPUSCULAR VOLUME 92 FL (80-99); NEUTROPHILS % (AUTO) 84.3 % (45.0-75.0); PLATELET COUNT 196 K/UL (150-450); RED BLOOD COUNT 3.55 M/UL (4.70-6.10); RED CELL DISTRIBUTION WIDTH 17.5 % (11.6-14.8); WHITE BLOOD COUNT 11.6 K/UL (4.8-10.8)
--- NOTE | 2019-04-13 19:30 | NUR ---
NURSE NOTES: Received report from BLANCA Goodson. Pt is sleeping on the bed and confused and lethargic. Pt able to response to pain stimuli. Pt has ETT#7.5 and fixed 24cm. Vent setting with AC: 14, T:500, P:5, FiO2 50% and SaO2 100% noted. Given endotracheal and oral suction. Provided mouth care. On Tele monitor with SR. Pt has Morales cath and patent and in placed noted yellowish urine drainage. Iv site intact and no sign of infiltration noted. Pt has Rt. femoral TLC and dressing is clean and dry. on running with D5w @ 50cc/hr and Levophed drip 10mcg/min. BP is stable at this time. No sign of pain by FLACC scale. Pt has bilateral soft wrist restraint and checked comfort and circulation. Pt has dressing on sacral area and noted multiple scabs on both knee and Rt. elbow skin tear. On PREETI mattress for wound management. Repositioned. No fever. Placed fall precaution. Will continue to care plan.
[2019-04-13] MEDS: Dyna-Hex 2% Top Sol 2oz TOPIC SCH (20:25)
[2019-04-13] MEDS ORDERED: Tamsulosin 0.4mg cap ORAL SCH (21:00)
--- NOTE | 2019-04-13 21:20 | NUR ---
NURSE NOTES: Pt is sleeping on the bed and inserted NGT on Lt nares 60cm. Checked placement with other 2 nurses. Will continue to monitor any mckeon of condition.
[2019-04-13] MEDS: Tamsulosin 0.4mg cap ORAL SCH (21:32)
--- NOTE | 2019-04-13 22:05 | NUR ---
NURSE NOTES: Pt is sleeping on the bed and tolerated well with current Vent setting. But noted urine out only 5-10cc/hr during 4hr. Left message to Dr. Armendariz and awaiting call back.
--- NOTE | 2019-04-13 22:15 | NUR ---
NURSE NOTES: Get call back from Dr. White and new order received. Will continue to monitor any change of condition.
[2019-04-14] VITALS (49 sets, daily range): BP systolic 55–158; BP diastolic 38–97
--- NOTE | 2019-04-14 00:04 | NUR ---
NURSE NOTES: Pt is resting on the bed and confused and agitated. Noted BP : 55/38mmHg, HR; 94, SaO2 100% with current Vent setting. Increase Levophed drip to 15mcg/min and rechecked BP : 71/53mmHg, HR: 94, SaO2 100%. repositioned. Given suction. Will continue to monitor any change of condition.
[2019-04-14] MEDS: Albuterol/Ipratropium 3ml neb HHN SCH ×4 (01:33→19:18)
--- NOTE | 2019-04-14 02:00 | NUR ---
NURSE NOTES: Pt is sleeping on the bed and no sign of acute distress noted. Tolerated well with current Vent setting and SasO2 100% noted. Given endotracheal and oral suction. Changed position. On Levophed Drip with 15mcg/min and BP checked 116/81mmHg. on running with D5w@ 50cc/hr. Changed Rt. femoral TCL central line dressing. No sign of infiltration noted. Noted urine output 15cc/hr. Will continue to monitor any change of condition.
--- NOTE | 2019-04-14 04:00 | NUR ---
NURSE NOTES: Pt is sleeping on the bed. Cleaned Pt and applied lotion and cream. Changed position. Given tracheal and oral suction. Provided oral care. Noted 25cc/hr urine output. V/S stable with current Levophed drip. Placed fall precaution. Will continue to monitor any change of condition.
[2019-04-14] MEDS: Morphine Sulfate 2mg/ml Inj(IV/IM USE ONLY) IVP PRN (05:43)
--- NOTE | 2019-04-14 06:00 | NUR ---
NURSE NOTES: Pt is resting on the bed and confused and agitated. On Levophed drip 15mcg/min. V/S stable. Noted 30cc/hr urine output. Changed position. Will continue to monitor any change of condition.
--- NOTE | 2019-04-14 06:27 | Hematology/Onc Progress Note ---
Assessment/Plan Assessment/Plan # Prostate cancer stage IV with psa >700, cr is worse, hydronephrosis noted, seen by renal, Dr. White. --> i did received records from [facility]. has regional lymphadenopathy, s/p transrectal biopsy with Gleasons 5+5 (2010) in all cores, apparently has had a 3 year course of androgen deprivation from 2011- 2014.also status post RADIATION to the prostate, then lost to followup. Following surviellance psa 0.45-->65, in 10/2016, and up to 127 in 12/2016, Ct scan showed recurrence of disease with lad but no bony mets, started on lupron 01/2017, psa fell yo 73-->46, has been sarted on zytiga + prednisone, and now psa progression on zytiga, he started xtandi in 01/2019 Psa 87. He did not go through urethral stenting, he has deferred treatment with chemo. --> He is a very poor historian, I have talked to the sister --> imaging has been noted --> as per urology recs, reviewed --> have called , no answer, trans to [facility]? --> poor prognosis given above history of treatment, defer transfer to [facility] --> psa 737-->757 --> CT ABD 04/10: Evidence of advanced metastatic neoplasm likely secondary to prostate carcinoma. Extensive retroperitoneal and pelvic lymphadenopathy complicated by presence of bilateral hydroureteronephrosis. Extensive metastatic disease involving the bones also noted. Status post seed implant radiation therapy to the prostate gland. # Hypercalcemia -- now acutely worse --> trend Ca++ 8.1-->13-->12-->10.3-->10.7-->13.2 --> ivf has been started --> as per nephrology --> calcitonin was given # Anemia due to underlying malignancy --> hgb trend as needed 9.2-->7-->10.9-->11-->9.7 --> no hemolysis is noted --> no bleeding # Episode of generalized weakness --> on ivf --> pt as needed # Hypokalemia --> replete prn # Dehydration --> on ivf # Atrophic changes without evident intracranial hemorrhage. --> as per neuro, remains confused # Respiratory failure s/p vent --> s/p vent intubated on 04/06 --> 04/08 was extubated # Hypernatremia as well as low BUN. --> on ivf # Poor prognosis # Dvt ppx lovenox sq Appreciate consultation and dW Rn Subjective Constitutional: Denies: no symptoms, chills, fever, malaise, weakness, other Cardiovascular: Denies: no symptoms, chest pain, edema, irregular heart rate, lightheadedness, palpitations, syncope, other Respiratory: Denies: no symptoms, cough, shortness of breath, SOB with excertion, SOB at rest, sputum, wheezing, other Gastrointestinal/Abdominal: Denies: no symptoms, abdomen distended, abdominal pain, black stools, tarry stools, blood in stool, constipated, diarrhea, difficulty swallowing, nausea, poor appetite, poor fluid intake, rectal bleeding , vomiting, other Endocrine: Denies: no symptoms, excessive sweating, flushing, intolerance to cold, intolerance to heat, increased hunger, increased thirst, increased urine, unexplained weight gain, unexplained weight loss, other Hematologic/Lymphatic: Denies: no symptoms, anemia, easy bleeding, easy bruising, adenopathy, other Allergies: Coded Allergies: No Known Allergies (Unverified , 04/03/19) Subjective 04/06: no events, apparently intubated today and transferred to the icu, will dw family 04/07: remains in the icu, critically ill, Ca++ 12, on vent, minimally responsive , on dopa, dw pcp and pulm 04/08: no major changes, no night sweats, labs have been reviewed, dw daughter, he is more alert 04/10: awake, no acute events ct abd reviewed, stool ob negative 04/12: labs reviewed, nc, tachy, ceftriaxone, no sob 04/13: lethargic, nc 3l, no acute distress, labs reviewed 04/14: Ca++ remains elev 13.2, De Amy aware, on calcitonin, on lovenox Objective Objective Current Medications Medications (Trade) Dose Ordered Sig/La Nena Route PRN Reason Start Time Stop Time Status Last Admin Dose Admin Albuterol/ Ipratropium (Albuterol/ Ipratropium) 3 ml Q6H PRN HHN Shortness of Breath 04/13/19 15:00 04/14/19 20:59 Albuterol/ Ipratropium (Albuterol/ Ipratropium) 3 ml Q6HRT HHN 04/13/19 19:00 04/15/19 12:59 04/14/19 01:33 Calcitonin [place] (Miacalcin) 1 sprays DAILY NASAL 04/14/19 09:00 05/10/19 13:29 Chlorhexidine Gluconate (Martha-Hex 2%) 1 applic DAILY@2000 TOPIC 04/13/19 20:00 05/06/19 19:59 04/13/19 20:25 Dextrose 1,000 ml @ 50 mls/hr Q20H IV 04/13/19 14:45 05/12/19 13:14 04/13/19 15:25 Enoxaparin Sodium (Lovenox) 30 mg DAILY SUBQ 04/14/19 09:00 05/04/19 08:59 Hydralazine HCl (Apresoline) 10 mg Q12HR NG 04/13/19 21:00 05/10/19 17:59 Hydralazine HCl (Apresoline) 10 mg Q4H PRN IV SBP > 170mmHg 04/13/19 15:00 05/08/19 14:59 Lansoprazole (Prevacid) 30 mg DAILY ORAL 04/14/19 09:00 05/13/19 08:59 Memantine (Namenda) 5 mg BID ORAL 04/13/19 18:00 05/04/19 17:59 Morphine Sulfate (Morphine Sulfate) 1 mg Q4H PRN IVP PAIN 4-10 04/13/19 18:00 04/20/19 17:59 04/14/19 05:43 Norepinephrine Bitartrate 4 mg/ Dextrose 250 ml @ 0 mls/hr Q24H IV 04/13/19 17:00 05/13/19 16:59 04/14/19 04:31 Tamsulosin HCl (Flomax) 0.4 mg BEDTIME ORAL 04/13/19 21:00 05/13/19 20:59 04/13/19 21:32 Last 24 Hour Vital Signs Date Time Temp Pulse Resp B/P (MAP) Pulse Ox O2 Delivery O2 Flow Rate FiO2 04/14/19 06:00 130 17 127/76 (93) 100 04/14/19 06:00 127/76 2/11/20 05:30 102 12 121/68 (85) 100 04/14/19 05:25 99 14 50 04/14/19 05:00 105/71 04/14/19 05:00 101 22 105/71 (82) 100 04/14/19 04:31 103/67 04/14/19 04:30 101 27 103/67 (79) 100 04/14/19 04:30 103/67 04/14/19 04:00 Mechanical Ventilator Mechanical Ventilator 04/14/19 04:00 102/71 04/14/19 04:00 104 04/14/19 04:00 98.0 104 28 102/71 (81) 100 04/14/19 04:00 50 04/14/19 03:30 106 11 102/66 (78) 100 04/14/19 03:15 111 27 104/71 (82) 100 04/14/19 03:00 104/71 04/14/19 03:00 100 17 121/81 (94) 100 04/14/19 02:50 101 14 50 04/14/19 02:45 105 20 115/78 (90) 100 04/14/19 02:30 100 15 114/72 (86) 100 04/14/19 02:15 101 17 112/71 (85) 100 04/14/19 02:00 116/81 04/14/19 02:00 103 20 116/81 (93) 100 04/14/19 01:45 105 18 115/69 (84) 100 04/14/19 01:30 102 21 106/71 (83) 100 04/14/19 01:27 102 14 100 Mechanical Ventilator 80 101 14 80 04/14/19 01:15 104 25 119/82 (94) 100 04/14/19 01:00 99 28 119/74 (89) 100 04/14/19 01:00 119/74 04/14/19 00:45 88 14 113/73 (86) 100 04/14/19 00:30 88 14 114/73 (87) 100 04/14/19 00:15 89 14 113/76 (88) 100 04/14/19 00:06 93 14 87/62 (70) 100 04/14/19 00:04 55/38 04/14/19 00:04 94 14 71/53 (59) 100 04/14/19 00:00 Mechanical Ventilator Mechanical Ventilator 04/14/19 00:00 93 04/14/19 00:00 94 14 55/38 (44) 100 04/13/19 23:34 110 14 50 04/13/19 23:30 91 14 107/65 (79) 100 04/13/19 23:00 113/69 04/13/19 23:00 91 15 113/69 (84) 100 04/13/19 22:30 94 14 116/60 (78) 100 04/13/19 22:00 99 16 109/67 (81) 100 04/13/19 22:00 109/67 04/13/19 21:30 97 8 107/69 (82) 100 04/13/19 21:15 Mechanical Ventilator Mechanical Ventilator 04/13/19 21:00 95 8 108/70 (83) 100 04/13/19 21:00 108/70 04/13/19 21:00 108/70 04/13/19 20:30 94 14 104/73 (83) 100 04/13/19 20:00 98.4 89 16 116/70 (85) 100 04/13/19 20:00 Mechanical Ventilator Mechanical Ventilator 04/13/19 20:00 92 04/13/19 20:00 116/70 04/13/19 20:00 50 04/13/19 19:50 96 14 100 Nasal Cannula 3.0 32 94 14 100 04/13/19 19:50 100 Mechanical Ventilator 50 04/13/19 19:50 114 14 50 04/13/19 19:45 90 14 101/77 (85) 100 04/13/19 19:30 89 14 103/75 (84) 100 04/13/19 19:15 90 14 92/66 (75) 99 04/13/19 19:00 94 14 91/64 (73) 99 04/13/19 19:00 97/63 04/13/19 18:59 94 15 97/63 (74) 98 04/13/19 18:45 102 14 77/51 (60) 100 04/13/19 18:30 114 14 80/57 (65) 100 04/13/19 18:15 122 15 93/59 (70) 95 04/13/19 18:00 93/59 04/13/19 18:00 98.4 107 15 144/85 (104) 93 04/13/19 17:45 124 19 146/87 (106) 92 04/13/19 17:30 98 20 88/65 (73) 91 04/13/19 17:20 118 14 50 04/13/19 17:15 91 26 136/92 (107) 100 04/13/19 17:01 74/56 04/13/19 17:00 104 19 96/71 (79) 100 04/13/19 16:45 106 22 74/56 (62) 97 04/13/19 16:30 111 18 89/68 (75) 100 04/13/19 16:15 105 25 88/70 (76) 100 04/13/19 16:12 103 04/13/19 16:00 50 04/13/19 16:00 Mechanical Ventilator Mechanical Ventilator 04/13/19 16:00 97.0 104 20 88/70 (76) 98 04/13/19 15:39 50 04/13/19 14:36 114 16 100 Mechanical Ventilator 50.0 100 04/13/19 14:30 Mechanical Ventilator Mechanical Ventilator 04/13/19 14:30 116 16 100 04/13/19 12:00 110 04/13/19 12:00 98.7 104 22 137/90 (106) 98 04/13/19 12:00 Nasal Cannula 3.0 Nasal Cannula 3.0 04/13/19 09:11 137/86 04/13/19 08:00 Nasal Cannula 3.0 Nasal Cannula 3.0 04/13/19 08:00 96.8 104 22 129/79 (96) 98 04/13/19 08:00 111 04/13/19 07:29 106 20 98 Nasal Cannula 3.0 32 92 20 96 04/13/19 07:29 96 Nasal Cannula 3.0 32 04/13/19 04:00 106 04/13/19 04:00 98.3 105 22 137/86 (103) 98 04/13/19 04:00 Nasal Cannula 3.0 Nasal Cannula 3.0 04/13/19 01:37 116 20 100 Nasal Cannula 3.0 32 113 20 99 04/13/19 00:00 Nasal Cannula 3.0 Nasal Cannula 3.0 04/13/19 00:00 98.0 103 20 124/78 (93) 97 04/13/19 00:00 109 2/9/20 20:37 126/79 04/12/19 20:00 97.6 97 20 127/79 (95) 95 04/12/19 20:00 100 04/12/19 20:00 Nasal Cannula 3.0 Nasal Cannula 3.0 04/12/19 19:55 98 Nasal Cannula 2.0 28 04/12/19 19:52 104 20 100 Nasal Cannula 3.0 32 101 20 99 04/12/19 16:00 113 04/12/19 16:00 97.8 115 20 158/98 (118) 93 04/12/19 16:00 Nasal Cannula 3.0 Nasal Cannula 3.0 04/12/19 13:16 110 22 100 Nasal Cannula 3.0 32 106 22 96 04/12/19 12:00 113 04/12/19 12:00 Nasal Cannula 3.0 Nasal Cannula 3.0 04/12/19 12:00 98.2 119 18 126/58 (80) 100 04/12/19 09:24 127/84 04/12/19 08:00 Nasal Cannula 3.0 Nasal Cannula 3.0 04/12/19 08:00 98.0 110 18 127/84 (98) 100 04/12/19 08:00 107 04/12/19 07:11 130 26 95 Nasal Cannula 2.0 28 111 24 97 04/12/19 07:01 97 Nasal Cannula 2.0 28 Intake and Output 04/13/19 04/14/19 19:00 07:00 Intake Total 804.16 ml 1570.225 ml Output Total 506 ml 210 ml Balance 298.16 ml 1360.225 ml IV Total 804.16 ml 1570.225 ml Output Urine Total 505 ml 210 ml Stool Total 1 ml Labs Test 04/12/19 04:00 04/13/19 03:50 04/13/19 15:21 04/13/19 18:45 White Blood Count 10.7 K/UL (4.8-10.8) 7.5 K/UL (4.8-10.8) 11.6 K/UL (4.8-10.8) Red Blood Count 3.84 M/UL (4.70-6.10) 3.85 M/UL (4.70-6.10) 3.55 M/UL (4.70-6.10) Hemoglobin 11.0 G/DL (14.2-18.0) 11.1 G/DL (14.2-18.0) 9.7 G/DL (14.2-18.0) Hematocrit 32.9 % (42.0-52.0) 33.0 % (42.0-52.0) 32.5 % (42.0-52.0) Mean Corpuscular Volume 86 FL (80-99) 86 FL (80-99) 92 FL (80-99) Mean Corpuscular Hemoglobin 28.6 PG (27.0-31.0) 28.8 PG (27.0-31.0) 27.3 PG (27.0-31.0) Mean Corpuscular Hemoglobin Concent 33.4 G/DL (32.0-36.0) 33.5 G/DL (32.0-36.0) 29.8 G/DL (32.0-36.0) Red Cell Distribution Width 16.0 % (11.6-14.8) 15.7 % (11.6-14.8) 17.5 % (11.6-14.8) Platelet Count 118 K/UL (150-450) 141 K/UL (150-450) 196 K/UL (150-450) Mean Platelet Volume 5.1 FL (6.5-10.1) 4.9 FL (6.5-10.1) 6.1 FL (6.5-10.1) Neutrophils (%) (Auto) 81.1 % (45.0-75.0) 77.8 % (45.0-75.0) 84.3 % (45.0-75.0) Lymphocytes (%) (Auto) 7.7 % (20.0-45.0) 11.4 % (20.0-45.0) 8.2 % (20.0-45.0) Monocytes (%) (Auto) 7.1 % (1.0-10.0) 6.0 % (1.0-10.0) 4.0 % (1.0-10.0) Eosinophils (%) (Auto) 3.4 % (0.0-3.0) 4.0 % (0.0-3.0) 2.6 % (0.0-3.0) Basophils (%) (Auto) 0.7 % (0.0-2.0) 0.7 % (0.0-2.0) 0.9 % (0.0-2.0) Sodium Level 158 MMOL/L (136-145) 156 MMOL/L (136-145) Potassium Level 3.2 MMOL/L (3.5-5.1) 4.2 MMOL/L (3.5-5.1) Chloride Level 119 MMOL/L (98-107) 119 MMOL/L (98-107) Carbon Dioxide Level 31 MMOL/L (21-32) 33 MMOL/L (21-32) Anion Gap 8 mmol/L (5-15) 4 mmol/L (5-15) Blood Urea Nitrogen 25 mg/dL (7-18) 20 mg/dL (7-18) Creatinine 1.5 MG/DL (0.55-1.30) 1.2 MG/DL (0.55-1.30) Estimat Glomerular Filtration Rate mL/min (>60) mL/min (>60) Glucose Level 94 MG/DL (74-106) 104 MG/DL (74-106) Calcium Level 12.8 MG/DL (8.5-10.1) 13.2 MG/DL (8.5-10.1) Arterial Blood pH 7.302 (7.350-7.450) Arterial Blood Partial Pressure CO2 58.4 mmHg (35.0-45.0) Arterial Blood Partial Pressure O2 459.8 mmHg (75.0-100.0) Arterial Blood HCO3 28.2 mmol/L (22.0-26.0) Arterial Blood Oxygen Saturation 99.0 % (95-100) Arterial Blood Base Excess 1.1 (-2-2) Antonio Test Positive Troponin I 0.040 ng/mL (0.000-0.056) Height (Feet): 5 Height (Inches): 7.00 Weight (Pounds): 141 Objective General: normal inspection, alert, Chronically Ill Respiratory: s/p vent++ Cardiovascular: regular rate, rhythm, no edema Gastrointestinal: normal inspection, normal bowel sounds Genitourinary: no CVA tenderness Mus: normal inspection, back normal, normal range of motion Neurologic: alert, motor strength/tone normal, oriented + confused Psychiatric: normal inspection, judgement/insight normal Skin: no rash Andreas Monroy MD Apr 14, 2019 06:27
--- NOTE | 2019-04-14 07:15 | NUR ---
HAND-OFF: Report given to BLANCA Goodson. Pt is sleeping on the bed and V/S stable and tolerated well with current Vent setting. .
[2019-04-14 07:16] LABS: ANION GAP 6 mmol/L (5-15); BLOOD UREA NITROGEN 19 mg/dL (7-18); CALCIUM 12.3 MG/DL (8.5-10.1); CARBON DIOXIDE 28 MMOL/L (21-32); CHLORIDE 117 MMOL/L (98-107); CREATININE 1.4 MG/DL (0.55-1.30); POTASSIUM 3.3 MMOL/L (3.5-5.1); SODIUM 151 MMOL/L (136-145)
--- NOTE | 2019-04-14 07:16 | NUR ---
NURSE NOTES: Received report from BLANCA [place]. Pt is observed laying in bed with eyes closed, responding to painful stimuli. Pt is orally intubated- ETT#7.5, 24cm @ the lip line. Vent setting AC:14, T:500, PEEP:5, FiO2 50%; SaO2 100%. Sinus Tach on desk monitor. Pt has Morales cath and patent and in placed noted yellowish urine drainage. Peripheral IV site intact and no sign of infiltration noted. Pt has Rt. femoral TLC and dressing is clean and dry, running D5W @ 50cc/hr and Levophed drip 15mcg/min. BP is currently 96/62. No sign of pain by FLACC scale. Pt received and maintained on bilateral soft wrist restraints for safety. Pt has dressing on sacral area and noted multiple scabs on both knee and Rt. elbow skin tear covered with an optifoam. On P200 mattress for wound management. Bed locked and in lowest position with call light within reach. Will continue to care plan.
[2019-04-14 07:29] LABS: BASOPHILS % (AUTO) 0.4 % (0.0-2.0); EOSINOPHILS % (AUTO) 2.9 % (0.0-3.0); HEMATOCRIT 28.7 % (42.0-52.0); HEMOGLOBIN 9.6 G/DL (14.2-18.0); LYMPHOCYTES % (AUTO) 12.5 % (20.0-45.0); MEAN CORPUSCULAR VOLUME 86 FL (80-99); MONOCYTES % (AUTO) 4.2 % (1.0-10.0); PLATELET COUNT 181 K/UL (150-450); RED BLOOD COUNT 3.34 M/UL (4.70-6.10); RED CELL DISTRIBUTION WIDTH 16.1 % (11.6-14.8); WHITE BLOOD COUNT 11.7 K/UL (4.8-10.8)
--- NOTE | 2019-04-14 08:01 | NUR ---
NURSE NOTES: Received call from Kayli in the Lab with Troponin result 0.131; Dr. Cortez made aware. Pt suctioned. Temp is 100.5, cooling measures initiated.
--- NOTE | 2019-04-14 08:24 | NUR ---
P.T Weekly Progress Notes Pt being seen for P.T for strengthening, balance and ADL/functional mobility training and then was transferred to ICU due declined in medical condition. Functional status prior ICU transfer: MMT BUE/LE: grossly 3- to 3/5. Sitting balance: fair-/P+ Pt able to sit with BUE support ave. time of 3 min. Pt able to partially stand with MOD support while holding onto the bed rails/or FWW for 10 secs with MOD support. Pt required MAX/MOD A X 1 for bed mobility and transfers and unable to take steps to ambulate. Overall poor endurance. PLAN: Pt was transferred to ICU for further medical monitoring and management. DC P.T.Will wait for new order when/as medically stable.
[2019-04-14] MEDS: HydrALAZINE 10mg Tab NG SCH ×2 (08:55→21:00)
[2019-04-14] MEDS ORDERED: NS 275ml ONE (09:00)
[2019-04-14] MEDS ORDERED: Tubing IV Secondary IV ONE (09:00)
[2019-04-14] MEDS: Memantine 5 MG TAB ORAL SCH ×2 (09:03→17:28)
[2019-04-14] MEDS: Enoxaparin 30mg Inj SUBQ SCH (09:04)
--- NOTE | 2019-04-14 09:09 | Urology Progress Note ---
Assessment/Plan Status: stable, progressing Assessment/Plan: 1. 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 2. Urinary retention. 3. Acute kidney injury, improved. 4. Hydronephrosis, likely chronic. 5. Proteinuria. 6. UTI and colonization. 7. Hematuria. monitor clinically maintain guerra, last placed 04/10 hand irrigated and do PRN position is satisfactory monitor renal fxn, labile likely obst of bilateral distal ureters secondary to advanced prostate ca will need to see how aggressive pt and family want to be renal fxn improved with the new guerra consider ureteral stents or nephrostomies? flomax added voiding trial at some point? Subjective Allergies: Coded Allergies: No Known Allergies (Unverified , 04/03/19) Subjective all noted, coded yest in ICU, intubated Objective Last 24 Hour Vital Signs Date Time Temp Pulse Resp B/P (MAP) Pulse Ox O2 Delivery O2 Flow Rate FiO2 04/14/19 08:59 104/65 04/14/19 08:55 104/65 04/14/19 08:00 50 04/14/19 08:00 Mechanical Ventilator Mechanical Ventilator 04/14/19 08:00 135/72 04/14/19 08:00 100.5 133 19 135/72 (93) 100 04/14/19 07:00 109 14 100 Mechanical Ventilator 50.0 50 112 16 60 04/14/19 07:00 125 16 107/69 (82) 100 04/14/19 07:00 100 Mechanical Ventilator 50.0 60 04/14/19 07:00 107/69 04/14/19 06:30 114 13 100/67 (78) 100 04/14/19 06:00 130 17 127/76 (93) 100 04/14/19 06:00 127/76 04/14/19 05:30 102 12 121/68 (85) 100 04/14/19 05:25 99 14 50 04/14/19 05:00 105/71 04/14/19 05:00 101 22 105/71 (82) 100 04/14/19 04:31 103/67 04/14/19 04:30 101 27 103/67 (79) 100 04/14/19 04:30 103/67 04/14/19 04:00 Mechanical Ventilator Mechanical Ventilator 04/14/19 04:00 102/71 04/14/19 04:00 104 04/14/19 04:00 98.0 104 28 102/71 (81) 100 04/14/19 04:00 50 04/14/19 03:30 106 11 102/66 (78) 100 04/14/19 03:15 111 27 104/71 (82) 100 04/14/19 03:00 104/71 04/14/19 03:00 100 17 121/81 (94) 100 04/14/19 02:50 101 14 50 04/14/19 02:45 105 20 115/78 (90) 100 04/14/19 02:30 100 15 114/72 (86) 100 04/14/19 02:15 101 17 112/71 (85) 100 04/14/19 02:00 116/81 04/14/19 02:00 103 20 116/81 (93) 100 04/14/19 01:45 105 18 115/69 (84) 100 04/14/19 01:30 102 21 106/71 (83) 100 04/14/19 01:27 102 14 100 Mechanical Ventilator 80 101 14 80 04/14/19 01:15 104 25 119/82 (94) 100 04/14/19 01:00 99 28 119/74 (89) 100 04/14/19 01:00 119/74 04/14/19 00:45 88 14 113/73 (86) 100 04/14/19 00:30 88 14 114/73 (87) 100 04/14/19 00:15 89 14 113/76 (88) 100 04/14/19 00:06 93 14 87/62 (70) 100 04/14/19 00:04 55/38 04/14/19 00:04 94 14 71/53 (59) 100 04/14/19 00:00 Mechanical Ventilator Mechanical Ventilator 04/14/19 00:00 93 04/14/19 00:00 94 14 55/38 (44) 100 04/13/19 23:34 110 14 50 04/13/19 23:30 91 14 107/65 (79) 100 04/13/19 23:00 113/69 04/13/19 23:00 91 15 113/69 (84) 100 04/13/19 22:30 94 14 116/60 (78) 100 04/13/19 22:00 99 16 109/67 (81) 100 04/13/19 22:00 109/67 04/13/19 21:30 97 8 107/69 (82) 100 04/13/19 21:15 Mechanical Ventilator Mechanical Ventilator 04/13/19 21:00 95 8 108/70 (83) 100 04/13/19 21:00 108/70 04/13/19 21:00 108/70 04/13/19 20:30 94 14 104/73 (83) 100 04/13/19 20:00 98.4 89 16 116/70 (85) 100 04/13/19 20:00 Mechanical Ventilator Mechanical Ventilator 04/13/19 20:00 92 04/13/19 20:00 116/70 04/13/19 20:00 50 04/13/19 19:50 96 14 100 Nasal Cannula 3.0 32 94 14 100 04/13/19 19:50 100 Mechanical Ventilator 50 04/13/19 19:50 114 14 50 04/13/19 19:45 90 14 101/77 (85) 100 04/13/19 19:30 89 14 103/75 (84) 100 04/13/19 19:15 90 14 92/66 (75) 99 04/13/19 19:00 94 14 91/64 (73) 99 04/13/19 19:00 97/63 04/13/19 18:59 94 15 97/63 (74) 98 04/13/19 18:45 102 14 77/51 (60) 100 04/13/19 18:30 114 14 80/57 (65) 100 04/13/19 18:15 122 15 93/59 (70) 95 04/13/19 18:00 93/59 04/13/19 18:00 98.4 107 15 144/85 (104) 93 04/13/19 17:45 124 19 146/87 (106) 92 04/13/19 17:30 98 20 88/65 (73) 91 04/13/19 17:20 118 14 50 04/13/19 17:15 91 26 136/92 (107) 100 04/13/19 17:01 74/56 04/13/19 17:00 104 19 96/71 (79) 100 04/13/19 16:45 106 22 74/56 (62) 97 04/13/19 16:30 111 18 89/68 (75) 100 04/13/19 16:15 105 25 88/70 (76) 100 04/13/19 16:12 103 04/13/19 16:00 50 04/13/19 16:00 Mechanical Ventilator Mechanical Ventilator 04/13/19 16:00 97.0 104 20 88/70 (76) 98 04/13/19 15:39 50 04/13/19 14:36 114 16 100 Mechanical Ventilator 50.0 100 04/13/19 14:30 Mechanical Ventilator Mechanical Ventilator 04/13/19 14:30 116 16 100 04/13/19 12:00 110 04/13/19 12:00 98.7 104 22 137/90 (106) 98 04/13/19 12:00 Nasal Cannula 3.0 Nasal Cannula 3.0 04/13/19 09:11 137/86 Intake and Output 04/13/19 04/14/19 19:00 07:00 Intake Total 804.16 ml 1676.475 ml Output Total 506 ml 235 ml Balance 298.16 ml 1441.475 ml IV Total 804.16 ml 1676.475 ml Output Urine Total 505 ml 235 ml Stool Total 1 ml Microbiology Date/Time Source Procedure Growth Status 04/07/19 09:30 Blood Blood Culture - Final NO GROWTH AFTER 5 DAYS Complete 04/07/19 09:30 Sputum Induced Gram Stain - Final Complete 04/07/19 09:30 Sputum Induced Sputum Culture - Final NORMAL UPPER RESPIRATORY DAVID PRESENT Complete 04/07/19 09:50 Urine,Clean Catch Urine Culture - Final NO GROWTH AFTER 48 HOURS Complete Current Medications Medications (Trade) Dose Ordered Sig/La Nena Route PRN Reason Start Time Stop Time Status Last Admin Dose Admin Albuterol/ Ipratropium (Albuterol/ Ipratropium) 3 ml Q6H PRN HHN Shortness of Breath 04/13/19 15:00 04/14/19 20:59 Albuterol/ Ipratropium (Albuterol/ Ipratropium) 3 ml Q6HRT HHN 04/13/19 19:00 04/15/19 12:59 04/14/19 01:33 Calcitonin [place] (Miacalcin) 1 sprays DAILY NASAL 04/14/19 09:00 05/10/19 13:29 Chlorhexidine Gluconate (Martha-Hex 2%) 1 applic DAILY@2000 TOPIC 04/13/19 20:00 05/06/19 19:59 04/13/19 20:25 Dextrose 1,000 ml @ 50 mls/hr Q20H IV 04/13/19 14:45 05/12/19 13:14 04/13/19 15:25 Enoxaparin Sodium (Lovenox) 30 mg DAILY SUBQ 04/14/19 09:00 05/04/19 08:59 04/14/19 09:04 Hydralazine HCl (Apresoline) 10 mg Q12HR NG 04/13/19 21:00 05/10/19 17:59 Hydralazine HCl (Apresoline) 10 mg Q4H PRN IV SBP > 170mmHg 04/13/19 15:00 05/08/19 14:59 Lansoprazole (Prevacid) 30 mg DAILY ORAL 04/14/19 09:00 05/13/19 08:59 04/14/19 09:02 Memantine (Namenda) 5 mg BID ORAL 04/13/19 18:00 05/04/19 17:59 04/14/19 09:03 Morphine Sulfate (Morphine Sulfate) 1 mg Q4H PRN IVP PAIN 4-10 04/13/19 18:00 04/20/19 17:59 04/14/19 05:43 Norepinephrine Bitartrate 4 mg/ Dextrose 250 ml @ 0 mls/hr Q24H IV 04/13/19 17:00 05/13/19 16:59 04/14/19 08:59 Pamidronate Disodium 60 mg/ Sodium Chloride 550 ml @ 137.5 mls/ hr ONCE ONCE IVPB 04/14/19 10:00 04/14/19 13:59 Tamsulosin HCl (Flomax) 0.4 mg BEDTIME ORAL 04/13/19 21:00 05/13/19 20:59 04/13/19 21:32 Laboratory Tests 04/13/19 15:21: Arterial Blood pH 7.302L, Arterial Blood Partial Pressure CO2 58.4*H, Arterial Blood Partial Pressure O2 459.8H, Arterial Blood HCO3 28.2H, Arterial Blood Oxygen Saturation 99.0, Arterial Blood Base Excess 1.1, Antonio Test Positive 04/13/19 18:45: White Blood Count 11.6#H, Red Blood Count 3.55L, Hemoglobin 9.7L, Hematocrit 32.5L, Mean Corpuscular Volume 92, Mean Corpuscular Hemoglobin 27.3, Mean Corpuscular Hemoglobin Concent 29.8L, Red Cell Distribution Width 17.5H, Platelet Count 196, Mean Platelet Volume 6.1L, Neutrophils (%) (Auto) 84.3H, Lymphocytes (%) (Auto) 8.2L, Monocytes (%) (Auto) 4.0, Eosinophils (%) (Auto) 2.6, Basophils (%) (Auto) 0.9, Troponin I 0.040 04/14/19 06:05: White Blood Count 11.7H, Red Blood Count 3.34L, Hemoglobin 9.6L, Hematocrit 28.7L, Mean Corpuscular Volume 86, Mean Corpuscular Hemoglobin 28.8, Mean Corpuscular Hemoglobin Concent 33.5, Red Cell Distribution Width 16.1H, Platelet Count 181, Mean Platelet Volume 5.0L, Neutrophils (%) (Auto) 80.0H, Lymphocytes (%) (Auto) 12.5L, Monocytes (%) (Auto) 4.2, Eosinophils (%) (Auto) 2.9, Basophils (%) (Auto) 0.4, Troponin I 0.131H, Sodium Level 151H, Potassium Level 3.3L, Chloride Level 117H, Carbon Dioxide Level 28, Anion Gap 6, Blood Urea Nitrogen 19H, Creatinine 1.4H, Estimat Glomerular Filtration Rate , Glucose Level 120H, Calcium Level 12.3H Height (Feet): 5 Height (Inches): 7.00 Weight (Pounds): 141 Objective exam stable guerra indwelling, allegra urine CT A/P (04/10) noted Raz Root MD Apr 14, 2019 09:09
--- NOTE | 2019-04-14 09:38 | NUR ---
RADIOLOGY DEPT., CHEST AND ABDOMEN FOR NGT PLCMT HAVE BEEN IMAGED.-P.DYE
--- NOTE | 2019-04-14 09:39 | Diagnostic Imaging Report ---
Indication: Status post nasogastric tube placement Technique: Supine view of the abdomen Comparison: 04/06/2019 Findings: There is a nasogastric tube in place, proximal port projecting at the level gastric esophageal junction, tip at the level gastric fundus. There is a right groin central venous catheter, tip projected at the level of the downstream right common iliac vein. There is a Morales catheter present. Bowel gas pattern is unremarkable. No masses or unusual calcifications. Surgical clips are seen in the pelvis. Impression: Slightly high position of nasogastric tube, proximal port at the level gastric esophageal junction. Slight advancement recommended. This finding was reported to ICU charge nurse Patty at the time of interpretation Other findings as noted
[2019-04-14] MEDS ORDERED: Pamidronate Disodium Inj 60 MG in Sodium Chloride 550 ML IVPB ONE (10:00)
--- NOTE | 2019-04-14 11:17 | Infectious Diseases Prog Note ---
Assessment/Plan Assessment/Plan Assessment: s/p bradycardia>cardiac arrest 04/13 VDRF 04/13 Shock, recurrent s/p asystole cardiac arrest 04/06 VDRF; s/p extubation 04/08 Sepsis UTI B/l hydroureteronephrosis -04/10 CT abd/p: Evidence of advanced metastatic neoplasm likely secondary to prostate carcinoma. Extensive retroperitoneal and pelvic lymphadenopathy complicated by presence of bilateral hydroureteronephrosis. Extensive metastatic disease involving the bones also noted. Small left pleural effusion. Right trace right pleural effusion. Right inguinal hernia containing a small amount of fluid. Alternatively this could represent part of the testis. Anasarca. -u/a wbc 20-30, nit +, leuk +3; ucx >100k E.coli (R amp, bactrim; otherwise S) Probable Aspiration pneumonitis vs PNA -04/08 CXR: Patchy perihilar disease which may be asymmetric interstitial edema or infiltrate unchanged. Interval resolution of right basal atelectasis. -04/07 sp cx normal sharyn(prelim) Afebrile Mild leukocytosis, recurrent- SP -04/07 Bcx NTD u/a wbc tnct, nit neg, leuk +; ucx neg -04/06 CXR: Interval resolution of right apical density. This suggests the diagnosis was atelectasis rather than an apical cap from blood, which was suggested as a possibility on the prior report. The right upper lobe atelectasis has resolved. Suspicion of new atelectasis at the right lung base. s/p recent fall LETA Hypokalemia prostate CA stage IV, mets to bone chronic indwelling guerra catheter Plan: -Start empiric IV vancomycin and Cefepime given HD decompensation -04/13 SP Ceftriaxone #4 - 04/10 Sp ZOsyn #4 -04/09 SP IV Vancomycin #3 -04/07 SP Ceftriaxone #4 -f/u cx -Monitor CBC/CMP, temperatures -aspiration precautions -Cards, renal, Uro, pulm f/u -U/a w/ reflex, Bcx -ICU/ETT care -poor px- consider re-evaluation of goals of care- ?Hospice Thank you for this consultation. Will continue to follow along with you. Discussed with RN Subjective Allergies: Coded Allergies: No Known Allergies (Unverified , 04/03/19) Subjective patient desaturated and became bradycardi to 20 and code yesterday afternoon; was intubated and transferred to ICU now on Levophed at 15 Objective Vital Signs Last 24 Hour Vital Signs Date Time Temp Pulse Resp B/P (MAP) Pulse Ox O2 Delivery O2 Flow Rate FiO2 04/14/19 10:00 103 21 113/73 (86) 100 04/14/19 10:00 124/76 04/14/19 09:30 106 34 119/75 (90) 100 04/14/19 09:15 106 14 50 04/14/19 09:00 117/69 04/14/19 09:00 94 19 99/66 (77) 100 04/14/19 08:59 104/65 04/14/19 08:55 104/65 04/14/19 08:02 113 04/14/19 08:00 50 04/14/19 08:00 Mechanical Ventilator Mechanical Ventilator 04/14/19 08:00 135/72 04/14/19 08:00 100.5 133 19 135/72 (93) 100 04/14/19 07:00 109 14 100 Mechanical Ventilator 50.0 50 112 16 60 04/14/19 07:00 125 16 107/69 (82) 100 04/14/19 07:00 100 Mechanical Ventilator 50.0 60 04/14/19 07:00 107/69 04/14/19 06:30 114 13 100/67 (78) 100 04/14/19 06:00 130 17 127/76 (93) 100 04/14/19 06:00 127/76 04/14/19 05:30 102 12 121/68 (85) 100 04/14/19 05:25 99 14 50 04/14/19 05:00 105/71 04/14/19 05:00 101 22 105/71 (82) 100 04/14/19 04:31 103/67 04/14/19 04:30 101 27 103/67 (79) 100 04/14/19 04:30 103/67 04/14/19 04:00 Mechanical Ventilator Mechanical Ventilator 04/14/19 04:00 102/71 04/14/19 04:00 104 04/14/19 04:00 98.0 104 28 102/71 (81) 100 04/14/19 04:00 50 04/14/19 03:30 106 11 102/66 (78) 100 04/14/19 03:15 111 27 104/71 (82) 100 04/14/19 03:00 104/71 04/14/19 03:00 100 17 121/81 (94) 100 04/14/19 02:50 101 14 50 04/14/19 02:45 105 20 115/78 (90) 100 04/14/19 02:30 100 15 114/72 (86) 100 04/14/19 02:15 101 17 112/71 (85) 100 04/14/19 02:00 116/81 04/14/19 02:00 103 20 116/81 (93) 100 04/14/19 01:45 105 18 115/69 (84) 100 04/14/19 01:30 102 21 106/71 (83) 100 04/14/19 01:27 102 14 100 Mechanical Ventilator 80 101 14 80 04/14/19 01:15 104 25 119/82 (94) 100 04/14/19 01:00 99 28 119/74 (89) 100 04/14/19 01:00 119/74 04/14/19 00:45 88 14 113/73 (86) 100 04/14/19 00:30 88 14 114/73 (87) 100 04/14/19 00:15 89 14 113/76 (88) 100 04/14/19 00:06 93 14 87/62 (70) 100 04/14/19 00:04 55/38 04/14/19 00:04 94 14 71/53 (59) 100 04/14/19 00:00 Mechanical Ventilator Mechanical Ventilator 04/14/19 00:00 93 04/14/19 00:00 94 14 55/38 (44) 100 04/13/19 23:34 110 14 50 04/13/19 23:30 91 14 107/65 (79) 100 04/13/19 23:00 113/69 04/13/19 23:00 91 15 113/69 (84) 100 04/13/19 22:30 94 14 116/60 (78) 100 04/13/19 22:00 99 16 109/67 (81) 100 04/13/19 22:00 109/67 04/13/19 21:30 97 8 107/69 (82) 100 04/13/19 21:15 Mechanical Ventilator Mechanical Ventilator 2/10/20 21:00 95 8 108/70 (83) 100 04/13/19 21:00 108/70 04/13/19 21:00 108/70 04/13/19 20:30 94 14 104/73 (83) 100 04/13/19 20:00 98.4 89 16 116/70 (85) 100 04/13/19 20:00 Mechanical Ventilator Mechanical Ventilator 04/13/19 20:00 92 04/13/19 20:00 116/70 04/13/19 20:00 50 04/13/19 19:50 96 14 100 Nasal Cannula 3.0 32 94 14 100 04/13/19 19:50 100 Mechanical Ventilator 50 04/13/19 19:50 114 14 50 04/13/19 19:45 90 14 101/77 (85) 100 04/13/19 19:30 89 14 103/75 (84) 100 04/13/19 19:15 90 14 92/66 (75) 99 04/13/19 19:00 94 14 91/64 (73) 99 04/13/19 19:00 97/63 04/13/19 18:59 94 15 97/63 (74) 98 04/13/19 18:45 102 14 77/51 (60) 100 04/13/19 18:30 114 14 80/57 (65) 100 04/13/19 18:15 122 15 93/59 (70) 95 04/13/19 18:00 93/59 04/13/19 18:00 98.4 107 15 144/85 (104) 93 04/13/19 17:45 124 19 146/87 (106) 92 04/13/19 17:30 98 20 88/65 (73) 91 04/13/19 17:20 118 14 50 04/13/19 17:15 91 26 136/92 (107) 100 04/13/19 17:01 74/56 04/13/19 17:00 104 19 96/71 (79) 100 04/13/19 16:45 106 22 74/56 (62) 97 04/13/19 16:30 111 18 89/68 (75) 100 04/13/19 16:15 105 25 88/70 (76) 100 04/13/19 16:12 103 04/13/19 16:00 50 04/13/19 16:00 Mechanical Ventilator Mechanical Ventilator 04/13/19 16:00 97.0 104 20 88/70 (76) 98 04/13/19 15:39 50 04/13/19 14:36 114 16 100 Mechanical Ventilator 50.0 100 04/13/19 14:30 Mechanical Ventilator Mechanical Ventilator 04/13/19 14:30 116 16 100 04/13/19 12:00 110 04/13/19 12:00 98.7 104 22 137/90 (106) 98 04/13/19 12:00 Nasal Cannula 3.0 Nasal Cannula 3.0 Height (Feet): 5 Height (Inches): 7.00 Weight (Pounds): 141 Objective General Appearance: normal inspection, alert, Chronically Ill Head: atraumatic ENT: normal ENT inspection, normal voice, dry mucus membranes Neck: normal inspection, full range of motion, supple, no bony tend Respiratory: normal inspection, lungs clear, normal breath sounds, no respiratory distress, no retraction, no wheezing Cardiovascular #1: regular rate, rhythm, no edema Gastrointestinal: normal inspection, normal bowel sounds, non tender, soft, no guarding, no hernia Genitourinary: no CVA tenderness Musculoskeletal: normal inspection, back normal, normal range of motion Neurologic: alert, motor strength/tone normal, oriented, motor weakness, responsive, speech normal, other - atrophy to muscles Psychiatric: normal inspection, judgement/insight normal, mood/affect normal Skin: no rash Laboratory Tests Test 04/13/19 15:21 04/13/19 18:45 04/14/19 06:05 04/14/19 09:24 Arterial Blood pH 7.302 (7.350-7.450) 7.357 (7.350-7.450) Arterial Blood Partial Pressure CO2 58.4 mmHg (35.0-45.0) *H 47.8 mmHg (35.0-45.0) H Arterial Blood Partial Pressure O2 459.8 mmHg (75.0-100.0) H 74.8 mmHg (75.0-100.0) L Arterial Blood HCO3 28.2 mmol/L (22.0-26.0) H 26.2 mmol/L (22.0-26.0) H Arterial Blood Oxygen Saturation 99.0 % (95-100) 93.8 % (95-100) L Arterial Blood Base Excess 1.1 (-2-2) 0.4 (-2-2) Antonio Test Positive Positive White Blood Count 11.6 K/UL (4.8-10.8) #H 11.7 K/UL (4.8-10.8) H Red Blood Count 3.55 M/UL (4.70-6.10) L 3.34 M/UL (4.70-6.10) L Hemoglobin 9.7 G/DL (14.2-18.0) L 9.6 G/DL (14.2-18.0) L Hematocrit 32.5 % (42.0-52.0) L 28.7 % (42.0-52.0) L Mean Corpuscular Volume 92 FL (80-99) 86 FL (80-99) Mean Corpuscular Hemoglobin 27.3 PG (27.0-31.0) 28.8 PG (27.0-31.0) Mean Corpuscular Hemoglobin Concent 29.8 G/DL (32.0-36.0) L 33.5 G/DL (32.0-36.0) Red Cell Distribution Width 17.5 % (11.6-14.8) H 16.1 % (11.6-14.8) H Platelet Count 196 K/UL (150-450) 181 K/UL (150-450) Mean Platelet Volume 6.1 FL (6.5-10.1) L 5.0 FL (6.5-10.1) L Neutrophils (%) (Auto) 84.3 % (45.0-75.0) H 80.0 % (45.0-75.0) H Lymphocytes (%) (Auto) 8.2 % (20.0-45.0) L 12.5 % (20.0-45.0) L Monocytes (%) (Auto) 4.0 % (1.0-10.0) 4.2 % (1.0-10.0) Eosinophils (%) (Auto) 2.6 % (0.0-3.0) 2.9 % (0.0-3.0) Basophils (%) (Auto) 0.9 % (0.0-2.0) 0.4 % (0.0-2.0) Troponin I 0.040 ng/mL (0.000-0.056) 0.131 ng/mL (0.000-0.056) Sodium Level 151 MMOL/L (136-145) H Potassium Level 3.3 MMOL/L (3.5-5.1) L Chloride Level 117 MMOL/L (98-107) H Carbon Dioxide Level 28 MMOL/L (21-32) Anion Gap 6 mmol/L (5-15) Blood Urea Nitrogen 19 mg/dL (7-18) H Creatinine 1.4 MG/DL (0.55-1.30) H Estimat Glomerular Filtration Rate mL/min (>60) Glucose Level 120 MG/DL (74-106) H Calcium Level 12.3 MG/DL (8.5-10.1) H Current Medications Medications (Trade) Dose Ordered Sig/[place] Route PRN Reason Start Time Stop Time Status Last Admin Dose Admin Albuterol/ Ipratropium (Albuterol/ Ipratropium) 3 ml Q6H PRN HHN Shortness of Breath 04/13/19 15:00 04/14/19 20:59 Albuterol/ Ipratropium (Albuterol/ Ipratropium) 3 ml Q6HRT HHN 04/13/19 19:00 04/15/19 12:59 04/14/19 01:33 Calcitonin [place] (Miacalcin) 1 sprays DAILY NASAL 04/14/19 09:00 05/10/19 13:29 04/14/19 09:13 Chlorhexidine Gluconate (Martha-Hex 2%) 1 applic DAILY@2000 TOPIC 04/13/19 20:00 05/06/19 19:59 04/13/19 20:25 Dextrose 1,000 ml @ 50 mls/hr Q20H IV 04/13/19 14:45 05/12/19 13:14 04/14/19 10:27 Enoxaparin Sodium (Lovenox) 30 mg DAILY SUBQ 04/14/19 09:00 05/04/19 08:59 04/14/19 09:04 Hydralazine HCl (Apresoline) 10 mg Q12HR NG 04/13/19 21:00 05/10/19 17:59 Hydralazine HCl (Apresoline) 10 mg Q4H PRN IV SBP > 170mmHg 04/13/19 15:00 05/08/19 14:59 Lansoprazole (Prevacid) 30 mg DAILY ORAL 04/14/19 09:00 05/13/19 08:59 04/14/19 09:02 Memantine (Namenda) 5 mg BID ORAL 04/13/19 18:00 05/04/19 17:59 04/14/19 09:03 Morphine Sulfate (Morphine Sulfate) 1 mg Q4H PRN IVP PAIN 4-10 04/13/19 18:00 04/20/19 17:59 04/14/19 05:43 Norepinephrine Bitartrate 4 mg/ Dextrose 250 ml @ 0 mls/hr Q24H IV 04/13/19 17:00 05/13/19 16:59 04/14/19 08:59 Pamidronate Disodium 60 mg/ Sodium Chloride 550 ml @ 137.5 mls/ hr ONCE ONCE IVPB 04/14/19 10:00 04/14/19 13:59 04/14/19 10:27 Tamsulosin HCl (Flomax) 0.4 mg BEDTIME ORAL 04/13/19 21:00 05/13/19 20:59 04/13/19 21:32 Rafia Nielson M.D. Apr 14, 2019 11:17
--- NOTE | 2019-04-14 11:30 | NUR ---
NURSE NOTES: Urine for Urinalysis collected, as ordered by MD. Levophed dose decreased to 12mcg/min to keep SBP >90. Pt repositioned and oral care completed. No distress noted at this time.
--- NOTE | 2019-04-14 11:40 | NUR ---
DISCHARGE FROM [facility] DUE TO PATIENT IN ICU WITH MEDICAL STATUS CHANGE (INTUBATED) PLEASE RECONSULT WHEN READY FOR PO INTAKE.
--- NOTE | 2019-04-14 11:53 | Pulmonology Progress Note ---
Assessment/Plan Assessment/Plan IMPRESSION: 1. Status post asystolic cardiac arrest. Again on 04/13/19 2. Respiratory failure, re-intubated 3. Altered mental status. 4. Hypernatremia. Corrected. 5. Hypokalemia . Corrected. 6. History of COPD. 7. Prostate CA. DISCUSSION: 1. Discussed with cardiology and PMD 2. Discussed with daughter in law 3. Poor prognosis 4. Will attempt wean Ganesh Mathews M.D. Subjective Interval Events: Suffered cardiac arrest yesterday; likely secondary to aspiration Constitutional: Reports: no symptoms HEENT: Repors: no symptoms Respiratory: Reports: no symptoms Cardiovascular: Reports: no symptoms Allergies: Coded Allergies: No Known Allergies (Unverified , 04/03/19) Objective Last 24 Hour Vital Signs Date Time Temp Pulse Resp B/P (MAP) Pulse Ox O2 Delivery O2 Flow Rate FiO2 04/14/19 11:30 97 14 101/65 (77) 100 04/14/19 11:00 97 14 50 04/14/19 11:00 101/65 04/14/19 11:00 91 14 114/74 (87) 100 04/14/19 10:00 103 21 113/73 (86) 100 04/14/19 10:00 124/76 04/14/19 09:30 106 34 119/75 (90) 100 04/14/19 09:15 106 14 50 04/14/19 09:00 117/69 04/14/19 09:00 94 19 99/66 (77) 100 04/14/19 08:59 104/65 04/14/19 08:55 104/65 04/14/19 08:02 113 04/14/19 08:00 50 04/14/19 08:00 Mechanical Ventilator Mechanical Ventilator 04/14/19 08:00 135/72 04/14/19 08:00 100.5 133 19 135/72 (93) 100 04/14/19 07:00 109 14 100 Mechanical Ventilator 50.0 50 112 16 60 04/14/19 07:00 125 16 107/69 (82) 100 04/14/19 07:00 100 Mechanical Ventilator 50.0 60 04/14/19 07:00 107/69 04/14/19 06:30 114 13 100/67 (78) 100 04/14/19 06:00 130 17 127/76 (93) 100 04/14/19 06:00 127/76 04/14/19 05:30 102 12 121/68 (85) 100 04/14/19 05:25 99 14 50 04/14/19 05:00 105/71 04/14/19 05:00 101 22 105/71 (82) 100 04/14/19 04:31 103/67 04/14/19 04:30 101 27 103/67 (79) 100 04/14/19 04:30 103/67 04/14/19 04:00 Mechanical Ventilator Mechanical Ventilator 04/14/19 04:00 102/71 04/14/19 04:00 104 04/14/19 04:00 98.0 104 28 102/71 (81) 100 04/14/19 04:00 50 04/14/19 03:30 106 11 102/66 (78) 100 04/14/19 03:15 111 27 104/71 (82) 100 04/14/19 03:00 104/71 04/14/19 03:00 100 17 121/81 (94) 100 04/14/19 02:50 101 14 50 04/14/19 02:45 105 20 115/78 (90) 100 04/14/19 02:30 100 15 114/72 (86) 100 04/14/19 02:15 101 17 112/71 (85) 100 04/14/19 02:00 116/81 04/14/19 02:00 103 20 116/81 (93) 100 04/14/19 01:45 105 18 115/69 (84) 100 04/14/19 01:30 102 21 106/71 (83) 100 04/14/19 01:27 102 14 100 Mechanical Ventilator 80 101 14 80 04/14/19 01:15 104 25 119/82 (94) 100 04/14/19 01:00 99 28 119/74 (89) 100 04/14/19 01:00 119/74 04/14/19 00:45 88 14 113/73 (86) 100 04/14/19 00:30 88 14 114/73 (87) 100 04/14/19 00:15 89 14 113/76 (88) 100 04/14/19 00:06 93 14 87/62 (70) 100 04/14/19 00:04 55/38 04/14/19 00:04 94 14 71/53 (59) 100 04/14/19 00:00 Mechanical Ventilator Mechanical Ventilator 04/14/19 00:00 93 04/14/19 00:00 94 14 55/38 (44) 100 04/13/19 23:34 110 14 50 04/13/19 23:30 91 14 107/65 (79) 100 04/13/19 23:00 113/69 04/13/19 23:00 91 15 113/69 (84) 100 04/13/19 22:30 94 14 116/60 (78) 100 04/13/19 22:00 99 16 109/67 (81) 100 04/13/19 22:00 109/67 04/13/19 21:30 97 8 107/69 (82) 100 04/13/19 21:15 Mechanical Ventilator Mechanical Ventilator 04/13/19 21:00 95 8 108/70 (83) 100 04/13/19 21:00 108/70 04/13/19 21:00 108/70 04/13/19 20:30 94 14 104/73 (83) 100 04/13/19 20:00 98.4 89 16 116/70 (85) 100 04/13/19 20:00 Mechanical Ventilator Mechanical Ventilator 04/13/19 20:00 92 04/13/19 20:00 116/70 04/13/19 20:00 50 04/13/19 19:50 96 14 100 Nasal Cannula 3.0 32 94 14 100 04/13/19 19:50 100 Mechanical Ventilator 50 04/13/19 19:50 114 14 50 04/13/19 19:45 90 14 101/77 (85) 100 04/13/19 19:30 89 14 103/75 (84) 100 04/13/19 19:15 90 14 92/66 (75) 99 04/13/19 19:00 94 14 91/64 (73) 99 04/13/19 19:00 97/63 04/13/19 18:59 94 15 97/63 (74) 98 04/13/19 18:45 102 14 77/51 (60) 100 04/13/19 18:30 114 14 80/57 (65) 100 04/13/19 18:15 122 15 93/59 (70) 95 04/13/19 18:00 93/59 04/13/19 18:00 98.4 107 15 144/85 (104) 93 04/13/19 17:45 124 19 146/87 (106) 92 04/13/19 17:30 98 20 88/65 (73) 91 04/13/19 17:20 118 14 50 04/13/19 17:15 91 26 136/92 (107) 100 04/13/19 17:01 74/56 04/13/19 17:00 104 19 96/71 (79) 100 04/13/19 16:45 106 22 74/56 (62) 97 04/13/19 16:30 111 18 89/68 (75) 100 04/13/19 16:15 105 25 88/70 (76) 100 04/13/19 16:12 103 04/13/19 16:00 50 04/13/19 16:00 Mechanical Ventilator Mechanical Ventilator 04/13/19 16:00 97.0 104 20 88/70 (76) 98 04/13/19 15:39 50 04/13/19 14:36 114 16 100 Mechanical Ventilator 50.0 100 04/13/19 14:30 Mechanical Ventilator Mechanical Ventilator 04/13/19 14:30 116 16 100 04/13/19 12:00 110 04/13/19 12:00 98.7 104 22 137/90 (106) 98 04/13/19 12:00 Nasal Cannula 3.0 Nasal Cannula 3.0 Intake and Output 04/13/19 04/14/19 19:00 07:00 Intake Total 804.16 ml 1676.475 ml Output Total 506 ml 235 ml Balance 298.16 ml 1441.475 ml IV Total 804.16 ml 1676.475 ml Output Urine Total 505 ml 235 ml Stool Total 1 ml General Appearance: no acute distress HEENT: normocephalic Respiratory/Chest: chest wall non-tender, decreased breath sounds Cardiovascular: normal peripheral pulses Abdomen: normal bowel sounds Laboratory Tests 04/13/19 15:21: Arterial Blood pH 7.302L, Arterial Blood Partial Pressure CO2 58.4*H, Arterial Blood Partial Pressure O2 459.8H, Arterial Blood HCO3 28.2H, Arterial Blood Oxygen Saturation 99.0, Arterial Blood Base Excess 1.1, Antonio Test Positive 04/13/19 18:45: White Blood Count 11.6#H, Red Blood Count 3.55L, Hemoglobin 9.7L, Hematocrit 32.5L, Mean Corpuscular Volume 92, Mean Corpuscular Hemoglobin 27.3, Mean Corpuscular Hemoglobin Concent 29.8L, Red Cell Distribution Width 17.5H, Platelet Count 196, Mean Platelet Volume 6.1L, Neutrophils (%) (Auto) 84.3H, Lymphocytes (%) (Auto) 8.2L, Monocytes (%) (Auto) 4.0, Eosinophils (%) (Auto) 2.6, Basophils (%) (Auto) 0.9, Troponin I 0.040 04/14/19 06:05: White Blood Count 11.7H, Red Blood Count 3.34L, Hemoglobin 9.6L, Hematocrit 28.7L, Mean Corpuscular Volume 86, Mean Corpuscular Hemoglobin 28.8, Mean Corpuscular Hemoglobin Concent 33.5, Red Cell Distribution Width 16.1H, Platelet Count 181, Mean Platelet Volume 5.0L, Neutrophils (%) (Auto) 80.0H, Lymphocytes (%) (Auto) 12.5L, Monocytes (%) (Auto) 4.2, Eosinophils (%) (Auto) 2.9, Basophils (%) (Auto) 0.4, Troponin I 0.131H, Sodium Level 151H, Potassium Level 3.3L, Chloride Level 117H, Carbon Dioxide Level 28, Anion Gap 6, Blood Urea Nitrogen 19H, Creatinine 1.4H, Estimat Glomerular Filtration Rate , Glucose Level 120H, Calcium Level 12.3H 04/14/19 09:24: Arterial Blood pH 7.357, Arterial Blood Partial Pressure CO2 47.8H, Arterial Blood Partial Pressure O2 74.8L, Arterial Blood HCO3 26.2H, Arterial Blood Oxygen Saturation 93.8L, Arterial Blood Base Excess 0.4, Antonio Test Positive 04/14/19 11:25: Urine Color [Pending], Urine Appearance [Pending], Urine pH [Pending], Urine Specific [place] [Pending], Urine Protein [Pending], Urine Glucose (UA) [Pending ], Urine Ketones [Pending], Urine Blood [Pending], Urine Nitrite [Pending], Urine Bilirubin [Pending], Urine Urobilinogen [Pending], Urine Leukocyte Esterase [Pending] Current Medications Medications (Trade) Dose Ordered Sig/[place] Route PRN Reason Start Time Stop Time Status Last Admin Dose Admin Albuterol/ Ipratropium (Albuterol/ Ipratropium) 3 ml Q6H PRN HHN Shortness of Breath 04/13/19 15:00 04/14/19 20:59 Albuterol/ Ipratropium (Albuterol/ Ipratropium) 3 ml Q6HRT HHN 04/13/19 19:00 04/15/19 12:59 04/14/19 01:33 Calcitonin [place] (Miacalcin) 1 sprays DAILY NASAL 04/14/19 09:00 05/10/19 13:29 04/14/19 09:13 Cefepime HCl 1 gm/ Dextrose 55 ml @ 110 mls/hr EVERY 12 HOURS IVPB 04/14/19 13:00 04/21/19 12:59 Chlorhexidine Gluconate (Martha-Hex 2%) 1 applic DAILY@2000 TOPIC 04/13/19 20:00 05/06/19 19:59 04/13/19 20:25 Dextrose 1,000 ml @ 50 mls/hr Q20H IV 04/13/19 14:45 05/12/19 13:14 04/14/19 10:27 Enoxaparin Sodium (Lovenox) 30 mg DAILY SUBQ 04/14/19 09:00 05/04/19 08:59 04/14/19 09:04 Hydralazine HCl (Apresoline) 10 mg Q12HR NG 04/13/19 21:00 05/10/19 17:59 Hydralazine HCl (Apresoline) 10 mg Q4H PRN IV SBP > 170mmHg 04/13/19 15:00 05/08/19 14:59 Lansoprazole (Prevacid) 30 mg DAILY ORAL 04/14/19 09:00 05/13/19 08:59 04/14/19 09:02 Memantine (Namenda) 5 mg BID ORAL 04/13/19 18:00 05/04/19 17:59 04/14/19 09:03 Morphine Sulfate (Morphine Sulfate) 1 mg Q4H PRN IVP PAIN 4-10 04/13/19 18:00 04/20/19 17:59 04/14/19 05:43 Norepinephrine Bitartrate 4 mg/ Dextrose 250 ml @ 0 mls/hr Q24H IV 04/13/19 17:00 05/13/19 16:59 04/14/19 08:59 Pamidronate Disodium 60 mg/ Sodium Chloride 550 ml @ 137.5 mls/ hr ONCE ONCE IVPB 04/14/19 10:00 04/14/19 13:59 04/14/19 10:27 Tamsulosin HCl (Flomax) 0.4 mg BEDTIME ORAL 04/13/19 21:00 05/13/19 20:59 04/13/19 21:32 Vancomycin HCl (Vanco rx to dose) 1 ea DAILY PRN MISC Per rx protocol 04/14/19 11:15 05/14/19 11:14 Vancomycin/Sodium Chloride 275 ml @ 183.333 mls/hr Q24H IVPB 04/14/19 14:00 04/19/19 13:59 Ganesh Mathews MD Apr 14, 2019 11:53
--- NOTE | 2019-04-14 12:00 | Cardiac Electrophysiology PN ---
Assessment/Plan Assessment/Plan 1. Status post noninfarctional 2 separate juan antonio arrest with asystole. Both episodes happened in the setting of respiratory failure No evidence of ventricular tachycardia or ventricular fibrillation. Off any GARCÍA or AVN blockerEF 65%. All 3 troponins were less than 0.1 2. Respiratory failure, extubated 04/08/19 and reintubated 04/13/19 3. History of stage III prostate cancer, followed by Dr. Monroy and Dr Root. Morlaes was changed. Follows up usually at [facility] 4. Shock. On Levophed on iv Abx. 5. Hypercalcemia due to prostate cancer. 6. Hypernatremia. On IV fluids D5w at 50 cc/hr. 7. Anemia, s/p PRBC 04/08/19 DW RN, Dr Mathews and Dr Toussaint Subjective Subjective Got juan antonio after developed respiratory failure. Intubated now back in ICU on the Vent and Levophed 12 mcg Objective Last 24 Hour Vital Signs Date Time Temp Pulse Resp B/P (MAP) Pulse Ox O2 Delivery O2 Flow Rate FiO2 04/14/19 11:30 97 14 101/65 (77) 100 04/14/19 11:00 97 14 50 04/14/19 11:00 101/65 04/14/19 11:00 91 14 114/74 (87) 100 04/14/19 10:00 103 21 113/73 (86) 100 04/14/19 10:00 124/76 04/14/19 09:30 106 34 119/75 (90) 100 04/14/19 09:15 106 14 50 04/14/19 09:00 117/69 04/14/19 09:00 94 19 99/66 (77) 100 04/14/19 08:59 104/65 04/14/19 08:55 104/65 04/14/19 08:02 113 04/14/19 08:00 50 04/14/19 08:00 Mechanical Ventilator Mechanical Ventilator 04/14/19 08:00 135/72 04/14/19 08:00 100.5 133 19 135/72 (93) 100 04/14/19 07:00 109 14 100 Mechanical Ventilator 50.0 50 112 16 60 04/14/19 07:00 125 16 107/69 (82) 100 04/14/19 07:00 100 Mechanical Ventilator 50.0 60 04/14/19 07:00 107/69 04/14/19 06:30 114 13 100/67 (78) 100 04/14/19 06:00 130 17 127/76 (93) 100 04/14/19 06:00 127/76 04/14/19 05:30 102 12 121/68 (85) 100 04/14/19 05:25 99 14 50 04/14/19 05:00 105/71 04/14/19 05:00 101 22 105/71 (82) 100 04/14/19 04:31 103/67 04/14/19 04:30 101 27 103/67 (79) 100 04/14/19 04:30 103/67 04/14/19 04:00 Mechanical Ventilator Mechanical Ventilator 04/14/19 04:00 102/71 04/14/19 04:00 104 04/14/19 04:00 98.0 104 28 102/71 (81) 100 04/14/19 04:00 50 04/14/19 03:30 106 11 102/66 (78) 100 04/14/19 03:15 111 27 104/71 (82) 100 04/14/19 03:00 104/71 04/14/19 03:00 100 17 121/81 (94) 100 04/14/19 02:50 101 14 50 04/14/19 02:45 105 20 115/78 (90) 100 04/14/19 02:30 100 15 114/72 (86) 100 04/14/19 02:15 101 17 112/71 (85) 100 04/14/19 02:00 116/81 04/14/19 02:00 103 20 116/81 (93) 100 04/14/19 01:45 105 18 115/69 (84) 100 04/14/19 01:30 102 21 106/71 (83) 100 04/14/19 01:27 102 14 100 Mechanical Ventilator 80 101 14 80 04/14/19 01:15 104 25 119/82 (94) 100 04/14/19 01:00 99 28 119/74 (89) 100 04/14/19 01:00 119/74 04/14/19 00:45 88 14 113/73 (86) 100 04/14/19 00:30 88 14 114/73 (87) 100 04/14/19 00:15 89 14 113/76 (88) 100 04/14/19 00:06 93 14 87/62 (70) 100 04/14/19 00:04 55/38 04/14/19 00:04 94 14 71/53 (59) 100 04/14/19 00:00 Mechanical Ventilator Mechanical Ventilator 04/14/19 00:00 93 04/14/19 00:00 94 14 55/38 (44) 100 04/13/19 23:34 110 14 50 04/13/19 23:30 91 14 107/65 (79) 100 04/13/19 23:00 113/69 04/13/19 23:00 91 15 113/69 (84) 100 04/13/19 22:30 94 14 116/60 (78) 100 04/13/19 22:00 99 16 109/67 (81) 100 04/13/19 22:00 109/67 04/13/19 21:30 97 8 107/69 (82) 100 04/13/19 21:15 Mechanical Ventilator Mechanical Ventilator 04/13/19 21:00 95 8 108/70 (83) 100 04/13/19 21:00 108/70 04/13/19 21:00 108/70 04/13/19 20:30 94 14 104/73 (83) 100 04/13/19 20:00 98.4 89 16 116/70 (85) 100 04/13/19 20:00 Mechanical Ventilator Mechanical Ventilator 04/13/19 20:00 92 04/13/19 20:00 116/70 04/13/19 20:00 50 04/13/19 19:50 96 14 100 Nasal Cannula 3.0 32 94 14 100 04/13/19 19:50 100 Mechanical Ventilator 50 04/13/19 19:50 114 14 50 04/13/19 19:45 90 14 101/77 (85) 100 04/13/19 19:30 89 14 103/75 (84) 100 04/13/19 19:15 90 14 92/66 (75) 99 04/13/19 19:00 94 14 91/64 (73) 99 04/13/19 19:00 97/63 04/13/19 18:59 94 15 97/63 (74) 98 04/13/19 18:45 102 14 77/51 (60) 100 04/13/19 18:30 114 14 80/57 (65) 100 04/13/19 18:15 122 15 93/59 (70) 95 04/13/19 18:00 93/59 04/13/19 18:00 98.4 107 15 144/85 (104) 93 04/13/19 17:45 124 19 146/87 (106) 92 04/13/19 17:30 98 20 88/65 (73) 91 04/13/19 17:20 118 14 50 04/13/19 17:15 91 26 136/92 (107) 100 04/13/19 17:01 74/56 04/13/19 17:00 104 19 96/71 (79) 100 04/13/19 16:45 106 22 74/56 (62) 97 04/13/19 16:30 111 18 89/68 (75) 100 04/13/19 16:15 105 25 88/70 (76) 100 04/13/19 16:12 103 04/13/19 16:00 50 04/13/19 16:00 Mechanical Ventilator Mechanical Ventilator 04/13/19 16:00 97.0 104 20 88/70 (76) 98 04/13/19 15:39 50 04/13/19 14:36 114 16 100 Mechanical Ventilator 50.0 100 04/13/19 14:30 Mechanical Ventilator Mechanical Ventilator 04/13/19 14:30 116 16 100 04/13/19 12:00 110 04/13/19 12:00 98.7 104 22 137/90 (106) 98 04/13/19 12:00 Nasal Cannula 3.0 Nasal Cannula 3.0 Intake and Output 04/13/19 04/14/19 19:00 07:00 Intake Total 804.16 ml 1676.475 ml Output Total 506 ml 235 ml Balance 298.16 ml 1441.475 ml IV Total 804.16 ml 1676.475 ml Output Urine Total 505 ml 235 ml Stool Total 1 ml Laboratory Tests Test 04/13/19 15:21 04/13/19 18:45 04/14/19 06:05 04/14/19 09:24 Arterial Blood pH 7.302 (7.350-7.450) 7.357 (7.350-7.450) Arterial Blood Partial Pressure CO2 58.4 mmHg (35.0-45.0) *H 47.8 mmHg (35.0-45.0) H Arterial Blood Partial Pressure O2 459.8 mmHg (75.0-100.0) H 74.8 mmHg (75.0-100.0) L Arterial Blood HCO3 28.2 mmol/L (22.0-26.0) H 26.2 mmol/L (22.0-26.0) H Arterial Blood Oxygen Saturation 99.0 % (95-100) 93.8 % (95-100) L Arterial Blood Base Excess 1.1 (-2-2) 0.4 (-2-2) Antonio Test Positive Positive White Blood Count 11.6 K/UL (4.8-10.8) #H 11.7 K/UL (4.8-10.8) H Red Blood Count 3.55 M/UL (4.70-6.10) L 3.34 M/UL (4.70-6.10) L Hemoglobin 9.7 G/DL (14.2-18.0) L 9.6 G/DL (14.2-18.0) L Hematocrit 32.5 % (42.0-52.0) L 28.7 % (42.0-52.0) L Mean Corpuscular Volume 92 FL (80-99) 86 FL (80-99) Mean Corpuscular Hemoglobin 27.3 PG (27.0-31.0) 28.8 PG (27.0-31.0) Mean Corpuscular Hemoglobin Concent 29.8 G/DL (32.0-36.0) L 33.5 G/DL (32.0-36.0) Red Cell Distribution Width 17.5 % (11.6-14.8) H 16.1 % (11.6-14.8) H Platelet Count 196 K/UL (150-450) 181 K/UL (150-450) Mean Platelet Volume 6.1 FL (6.5-10.1) L 5.0 FL (6.5-10.1) L Neutrophils (%) (Auto) 84.3 % (45.0-75.0) H 80.0 % (45.0-75.0) H Lymphocytes (%) (Auto) 8.2 % (20.0-45.0) L 12.5 % (20.0-45.0) L Monocytes (%) (Auto) 4.0 % (1.0-10.0) 4.2 % (1.0-10.0) Eosinophils (%) (Auto) 2.6 % (0.0-3.0) 2.9 % (0.0-3.0) Basophils (%) (Auto) 0.9 % (0.0-2.0) 0.4 % (0.0-2.0) Troponin I 0.040 ng/mL (0.000-0.056) 0.131 ng/mL (0.000-0.056) Sodium Level 151 MMOL/L (136-145) H Potassium Level 3.3 MMOL/L (3.5-5.1) L Chloride Level 117 MMOL/L (98-107) H Carbon Dioxide Level 28 MMOL/L (21-32) Anion Gap 6 mmol/L (5-15) Blood Urea Nitrogen 19 mg/dL (7-18) H Creatinine 1.4 MG/DL (0.55-1.30) H Estimat Glomerular Filtration Rate mL/min (>60) Glucose Level 120 MG/DL (74-106) H Calcium Level 12.3 MG/DL (8.5-10.1) H Test 04/14/19 11:25 Urine Color Pending Urine Appearance Pending Urine pH Pending Urine Specific [place] Pending Urine Protein Pending Urine Glucose (UA) Pending Urine Ketones Pending Urine Blood Pending Urine Nitrite Pending Urine Bilirubin Pending Urine Urobilinogen Pending Urine Leukocyte Esterase Pending Objective HEENT: No JVD. Orally intubated LUNGS: Coarse rhonchi. CARDIOVASCULAR: Regular S1 and S2 and tachycardic. ABDOMEN: Soft and nondistended. EXTREMITIES: No pitting edema. Nain Cortez MD Apr 14, 2019 12:00
--- NOTE | 2019-04-14 12:06 | General Progress Note ---
Assessment/Plan Status: stable, progressing Assessment/Plan: Assessment/Plan Problems: (1) Coffee ground emesis (2) Anemia (3) metastatic prostate CA (4) respiratory failure coded yesterday on pressor hold NGTF for today will fu Subjective ROS Limited/Unobtainable: No Allergies: Coded Allergies: No Known Allergies (Unverified , 04/03/19) Objective Last 24 Hour Vital Signs Date Time Temp Pulse Resp B/P (MAP) Pulse Ox O2 Delivery O2 Flow Rate FiO2 04/14/19 11:30 97 14 101/65 (77) 100 04/14/19 11:00 97 14 50 04/14/19 11:00 101/65 04/14/19 11:00 91 14 114/74 (87) 100 04/14/19 10:00 103 21 113/73 (86) 100 04/14/19 10:00 124/76 04/14/19 09:30 106 34 119/75 (90) 100 04/14/19 09:15 106 14 50 04/14/19 09:00 117/69 04/14/19 09:00 94 19 99/66 (77) 100 04/14/19 08:59 104/65 04/14/19 08:55 104/65 04/14/19 08:02 113 04/14/19 08:00 50 04/14/19 08:00 Mechanical Ventilator Mechanical Ventilator 04/14/19 08:00 135/72 04/14/19 08:00 100.5 133 19 135/72 (93) 100 04/14/19 07:00 109 14 100 Mechanical Ventilator 50.0 50 112 16 60 04/14/19 07:00 125 16 107/69 (82) 100 04/14/19 07:00 100 Mechanical Ventilator 50.0 60 04/14/19 07:00 107/69 04/14/19 06:30 114 13 100/67 (78) 100 04/14/19 06:00 130 17 127/76 (93) 100 04/14/19 06:00 127/76 04/14/19 05:30 102 12 121/68 (85) 100 04/14/19 05:25 99 14 50 04/14/19 05:00 105/71 04/14/19 05:00 101 22 105/71 (82) 100 04/14/19 04:31 103/67 04/14/19 04:30 101 27 103/67 (79) 100 04/14/19 04:30 103/67 04/14/19 04:00 Mechanical Ventilator Mechanical Ventilator 04/14/19 04:00 102/71 04/14/19 04:00 104 04/14/19 04:00 98.0 104 28 102/71 (81) 100 04/14/19 04:00 50 04/14/19 03:30 106 11 102/66 (78) 100 04/14/19 03:15 111 27 104/71 (82) 100 04/14/19 03:00 104/71 04/14/19 03:00 100 17 121/81 (94) 100 04/14/19 02:50 101 14 50 04/14/19 02:45 105 20 115/78 (90) 100 04/14/19 02:30 100 15 114/72 (86) 100 04/14/19 02:15 101 17 112/71 (85) 100 04/14/19 02:00 116/81 04/14/19 02:00 103 20 116/81 (93) 100 04/14/19 01:45 105 18 115/69 (84) 100 04/14/19 01:30 102 21 106/71 (83) 100 04/14/19 01:27 102 14 100 Mechanical Ventilator 80 101 14 80 04/14/19 01:15 104 25 119/82 (94) 100 04/14/19 01:00 99 28 119/74 (89) 100 04/14/19 01:00 119/74 04/14/19 00:45 88 14 113/73 (86) 100 04/14/19 00:30 88 14 114/73 (87) 100 04/14/19 00:15 89 14 113/76 (88) 100 04/14/19 00:06 93 14 87/62 (70) 100 04/14/19 00:04 55/38 04/14/19 00:04 94 14 71/53 (59) 100 04/14/19 00:00 Mechanical Ventilator Mechanical Ventilator 04/14/19 00:00 93 04/14/19 00:00 94 14 55/38 (44) 100 04/13/19 23:34 110 14 50 04/13/19 23:30 91 14 107/65 (79) 100 04/13/19 23:00 113/69 04/13/19 23:00 91 15 113/69 (84) 100 04/13/19 22:30 94 14 116/60 (78) 100 04/13/19 22:00 99 16 109/67 (81) 100 04/13/19 22:00 109/67 04/13/19 21:30 97 8 107/69 (82) 100 04/13/19 21:15 Mechanical Ventilator Mechanical Ventilator 04/13/19 21:00 95 8 108/70 (83) 100 04/13/19 21:00 108/70 04/13/19 21:00 108/70 04/13/19 20:30 94 14 104/73 (83) 100 04/13/19 20:00 98.4 89 16 116/70 (85) 100 04/13/19 20:00 Mechanical Ventilator Mechanical Ventilator 04/13/19 20:00 92 04/13/19 20:00 116/70 04/13/19 20:00 50 04/13/19 19:50 96 14 100 Nasal Cannula 3.0 32 94 14 100 04/13/19 19:50 100 Mechanical Ventilator 50 04/13/19 19:50 114 14 50 04/13/19 19:45 90 14 101/77 (85) 100 04/13/19 19:30 89 14 103/75 (84) 100 04/13/19 19:15 90 14 92/66 (75) 99 04/13/19 19:00 94 14 91/64 (73) 99 04/13/19 19:00 97/63 04/13/19 18:59 94 15 97/63 (74) 98 04/13/19 18:45 102 14 77/51 (60) 100 04/13/19 18:30 114 14 80/57 (65) 100 04/13/19 18:15 122 15 93/59 (70) 95 04/13/19 18:00 93/59 04/13/19 18:00 98.4 107 15 144/85 (104) 93 04/13/19 17:45 124 19 146/87 (106) 92 04/13/19 17:30 98 20 88/65 (73) 91 04/13/19 17:20 118 14 50 04/13/19 17:15 91 26 136/92 (107) 100 04/13/19 17:01 74/56 04/13/19 17:00 104 19 96/71 (79) 100 04/13/19 16:45 106 22 74/56 (62) 97 04/13/19 16:30 111 18 89/68 (75) 100 04/13/19 16:15 105 25 88/70 (76) 100 04/13/19 16:12 103 04/13/19 16:00 50 04/13/19 16:00 Mechanical Ventilator Mechanical Ventilator 04/13/19 16:00 97.0 104 20 88/70 (76) 98 04/13/19 15:39 50 04/13/19 14:36 114 16 100 Mechanical Ventilator 50.0 100 04/13/19 14:30 Mechanical Ventilator Mechanical Ventilator 04/13/19 14:30 116 16 100 Intake and Output 04/13/19 04/14/19 19:00 07:00 Intake Total 804.16 ml 1676.475 ml Output Total 506 ml 235 ml Balance 298.16 ml 1441.475 ml IV Total 804.16 ml 1676.475 ml Output Urine Total 505 ml 235 ml Stool Total 1 ml Laboratory Tests 04/13/19 15:21: Arterial Blood pH 7.302L, Arterial Blood Partial Pressure CO2 58.4*H, Arterial Blood Partial Pressure O2 459.8H, Arterial Blood HCO3 28.2H, Arterial Blood Oxygen Saturation 99.0, Arterial Blood Base Excess 1.1, Antonio Test Positive 04/13/19 18:45: White Blood Count 11.6#H, Red Blood Count 3.55L, Hemoglobin 9.7L, Hematocrit 32.5L, Mean Corpuscular Volume 92, Mean Corpuscular Hemoglobin 27.3, Mean Corpuscular Hemoglobin Concent 29.8L, Red Cell Distribution Width 17.5H, Platelet Count 196, Mean Platelet Volume 6.1L, Neutrophils (%) (Auto) 84.3H, Lymphocytes (%) (Auto) 8.2L, Monocytes (%) (Auto) 4.0, Eosinophils (%) (Auto) 2.6, Basophils (%) (Auto) 0.9, Troponin I 0.040 04/14/19 06:05: White Blood Count 11.7H, Red Blood Count 3.34L, Hemoglobin 9.6L, Hematocrit 28.7L, Mean Corpuscular Volume 86, Mean Corpuscular Hemoglobin 28.8, Mean Corpuscular Hemoglobin Concent 33.5, Red Cell Distribution Width 16.1H, Platelet Count 181, Mean Platelet Volume 5.0L, Neutrophils (%) (Auto) 80.0H, Lymphocytes (%) (Auto) 12.5L, Monocytes (%) (Auto) 4.2, Eosinophils (%) (Auto) 2.9, Basophils (%) (Auto) 0.4, Troponin I 0.131H, Sodium Level 151H, Potassium Level 3.3L, Chloride Level 117H, Carbon Dioxide Level 28, Anion Gap 6, Blood Urea Nitrogen 19H, Creatinine 1.4H, Estimat Glomerular Filtration Rate , Glucose Level 120H, Calcium Level 12.3H 04/14/19 09:24: Arterial Blood pH 7.357, Arterial Blood Partial Pressure CO2 47.8H, Arterial Blood Partial Pressure O2 74.8L, Arterial Blood HCO3 26.2H, Arterial Blood Oxygen Saturation 93.8L, Arterial Blood Base Excess 0.4, Antonio Test Positive 04/14/19 11:25: Urine Color [Pending], Urine Appearance [Pending], Urine pH [Pending], Urine Specific [place] [Pending], Urine Protein [Pending], Urine Glucose (UA) [Pending ], Urine Ketones [Pending], Urine Blood [Pending], Urine Nitrite [Pending], Urine Bilirubin [Pending], Urine Urobilinogen [Pending], Urine Leukocyte Esterase [Pending] Height (Feet): 5 Height (Inches): 7.00 Weight (Pounds): 141 General Appearance: lethargic EENT: normal ENT inspection Neck: supple Cardiovascular: tachycardia Respiratory/Chest: decreased breath sounds Abdomen: soft, hypoactive bowel sounds, tender Extremities: non-tender Tyrone Lamb MD Apr 14, 2019 12:06
--- NOTE | 2019-04-14 12:06 | NUR ---
RD ASSESSMENT & RECOMMENDATIONS SEE CARE ACTIVITY FOR COMPLETE ASSESSMENT DAILY ESTIMATED NEEDS: Needs based on Underweight, cancer, pulmonary 54.7kg 30-35 kcals/kg 9171-7471 total kcals 1.2-2 g protein/kg 65-109 g total protein 25-30 mL/kg 8990-2583 total fluid mLs NUTRITION DIAGNOSIS: Underweight r/t cancer? as evidenced by pt w/ prostate cancer, elevated antigen and calium levels, w/ generalized moderate wasting, previously poor po intake, pt is 81% of [place] body Weight, currently s/p code blue x2, now re-intubated, NPO w/ NGT, on pressors/ ENTERAL NUTRITION RECOMMENDATIONS: Nepro @ 38ml/hr x 24 hrs to provide 912ml, 1614kcal, 79g prot, 663ml free water * IF TF PART OF POC, rec Nepro (will give the lowest amount of calcium compared to other formulas available at [facility] [place] while meeting nutritional needs). * Initiate Nepro @ 18ml/hr x 6 hrs, advance 10ml q 4-6 hrs as tolerated to goal rate * At goal, TF will provide 966mg Ca per day. * HOB over 30 degrees/ water flush of 150ml q 4 hrs. ------ With pressor support, rec trophic feeds of NEPRO @5-10ml/hr to maintain gut integrity. ADDITIONAL RECOMMENDATIONS: 1) Recalibrated bed wts for daily wts 2) Add KATIE BID for wounds + Vit C 250mg daily 3) Monitor lytes, replete as needed 4) Now reintubated-> NGT feed recs as above when stable pt remains full code at this time 5) Monitor Ca: critically elevated (rec Nepro for nonoral feeds for lowest amount of calcium)
[2019-04-14 12:25] LABS: APPEARANCE,URINE CLEAR; BILIRUBIN, URINE NEGATIVE (NEGATIVE); COLOR,URINE PALE YELLOW; GLUCOSE, URINE (UA) NEGATIVE (NEGATIVE); KETONES,URINE NEGATIVE (NEGATIVE); LEUKOCYTE ESTERASE ,URINE 3+ (NEGATIVE); NITRITE,URINE NEGATIVE (NEGATIVE); PH,URINE 5 (4.5-8.0); PROTEIN,URINE 2+ (NEGATIVE); UROBILINOGEN,URINE NORMAL MG/DL (0.0-1.0)
[2019-04-14] MEDS: Cefepime HCl 1 GM in D5W 55 ML IVPB SCH ×2 (12:58→22:52)
--- NOTE | 2019-04-14 13:00 | NUR ---
NURSE NOTES: Pt repositioned and oral care completed. Pt's cousin at the bedside, answered his questions. No distress noted at this time.
--- NOTE | 2019-04-14 14:02 | General Progress Note ---
Assessment/Plan Problem List: (1) UTI (urinary tract infection) ICD Codes: N39.0 - Urinary tract infection, site not specified SNOMED: 83638990 (2) Weak ICD Codes: R53.1 - Weakness SNOMED: 25435742 (3) Anemia ICD Codes: D64.9 - Anemia, unspecified SNOMED: 019017390 (4) Dehydration ICD Codes: E86.0 - Dehydration SNOMED: 80332127, 51096527 (5) Episode of generalized weakness ICD Codes: R53.1 - Weakness SNOMED: 72584580 (6) Stage III adenocarcinoma of prostate ICD Codes: C61 - Malignant neoplasm of prostate SNOMED: 604959192, 56861198 Status: stable, progressing Assessment/Plan: wean vent pt diet abx iv fluid heme gi eval cbc bmp am Subjective Constitutional: Reports: weakness Allergies: Coded Allergies: No Known Allergies (Unverified , 04/03/19) All Systems: reviewed and negative except above Subjective intubated in icu Objective Last 24 Hour Vital Signs Date Time Temp Pulse Resp B/P (MAP) Pulse Ox O2 Delivery O2 Flow Rate FiO2 04/14/19 13:16 100 14 100 Mechanical Ventilator 50.0 50 100 14 60 04/14/19 13:00 96 14 116/71 (86) 100 04/14/19 13:00 116/71 04/14/19 12:05 50 04/14/19 12:00 100.3 94 14 117/71 (86) 100 04/14/19 12:00 Mechanical Ventilator Mechanical Ventilator 04/14/19 12:00 117/71 04/14/19 12:00 94 04/14/19 11:30 97 14 101/65 (77) 100 04/14/19 11:00 97 14 50 04/14/19 11:00 101/65 04/14/19 11:00 91 14 114/74 (87) 100 04/14/19 10:00 103 21 113/73 (86) 100 04/14/19 10:00 124/76 04/14/19 09:30 106 34 119/75 (90) 100 04/14/19 09:15 106 14 50 04/14/19 09:00 117/69 04/14/19 09:00 94 19 99/66 (77) 100 04/14/19 08:59 104/65 04/14/19 08:55 104/65 04/14/19 08:02 113 04/14/19 08:00 50 04/14/19 08:00 Mechanical Ventilator Mechanical Ventilator 04/14/19 08:00 135/72 04/14/19 08:00 100.5 133 19 135/72 (93) 100 04/14/19 07:00 109 14 100 Mechanical Ventilator 50.0 50 112 16 60 04/14/19 07:00 125 16 107/69 (82) 100 04/14/19 07:00 100 Mechanical Ventilator 50.0 60 04/14/19 07:00 107/69 04/14/19 06:30 114 13 100/67 (78) 100 04/14/19 06:00 130 17 127/76 (93) 100 04/14/19 06:00 127/76 04/14/19 05:30 102 12 121/68 (85) 100 04/14/19 05:25 99 14 50 04/14/19 05:00 105/71 04/14/19 05:00 101 22 105/71 (82) 100 04/14/19 04:31 103/67 04/14/19 04:30 101 27 103/67 (79) 100 04/14/19 04:30 103/67 04/14/19 04:00 Mechanical Ventilator Mechanical Ventilator 04/14/19 04:00 102/71 04/14/19 04:00 104 04/14/19 04:00 98.0 104 28 102/71 (81) 100 04/14/19 04:00 50 04/14/19 03:30 106 11 102/66 (78) 100 04/14/19 03:15 111 27 104/71 (82) 100 04/14/19 03:00 104/71 04/14/19 03:00 100 17 121/81 (94) 100 04/14/19 02:50 101 14 50 04/14/19 02:45 105 20 115/78 (90) 100 04/14/19 02:30 100 15 114/72 (86) 100 04/14/19 02:15 101 17 112/71 (85) 100 04/14/19 02:00 116/81 04/14/19 02:00 103 20 116/81 (93) 100 04/14/19 01:45 105 18 115/69 (84) 100 04/14/19 01:30 102 21 106/71 (83) 100 04/14/19 01:27 102 14 100 Mechanical Ventilator 80 101 14 80 04/14/19 01:15 104 25 119/82 (94) 100 04/14/19 01:00 99 28 119/74 (89) 100 04/14/19 01:00 119/74 04/14/19 00:45 88 14 113/73 (86) 100 04/14/19 00:30 88 14 114/73 (87) 100 04/14/19 00:15 89 14 113/76 (88) 100 04/14/19 00:06 93 14 87/62 (70) 100 04/14/19 00:04 55/38 04/14/19 00:04 94 14 71/53 (59) 100 04/14/19 00:00 Mechanical Ventilator Mechanical Ventilator 04/14/19 00:00 93 04/14/19 00:00 94 14 55/38 (44) 100 04/13/19 23:34 110 14 50 04/13/19 23:30 91 14 107/65 (79) 100 04/13/19 23:00 113/69 04/13/19 23:00 91 15 113/69 (84) 100 04/13/19 22:30 94 14 116/60 (78) 100 04/13/19 22:00 99 16 109/67 (81) 100 04/13/19 22:00 109/67 04/13/19 21:30 97 8 107/69 (82) 100 04/13/19 21:15 Mechanical Ventilator Mechanical Ventilator 04/13/19 21:00 95 8 108/70 (83) 100 04/13/19 21:00 108/70 04/13/19 21:00 108/70 04/13/19 20:30 94 14 104/73 (83) 100 04/13/19 20:00 98.4 89 16 116/70 (85) 100 04/13/19 20:00 Mechanical Ventilator Mechanical Ventilator 04/13/19 20:00 92 04/13/19 20:00 116/70 04/13/19 20:00 50 04/13/19 19:50 96 14 100 Nasal Cannula 3.0 32 94 14 100 04/13/19 19:50 100 Mechanical Ventilator 50 04/13/19 19:50 114 14 50 04/13/19 19:45 90 14 101/77 (85) 100 04/13/19 19:30 89 14 103/75 (84) 100 04/13/19 19:15 90 14 92/66 (75) 99 04/13/19 19:00 94 14 91/64 (73) 99 04/13/19 19:00 97/63 04/13/19 18:59 94 15 97/63 (74) 98 04/13/19 18:45 102 14 77/51 (60) 100 04/13/19 18:30 114 14 80/57 (65) 100 04/13/19 18:15 122 15 93/59 (70) 95 04/13/19 18:00 93/59 04/13/19 18:00 98.4 107 15 144/85 (104) 93 04/13/19 17:45 124 19 146/87 (106) 92 04/13/19 17:30 98 20 88/65 (73) 91 04/13/19 17:20 118 14 50 04/13/19 17:15 91 26 136/92 (107) 100 04/13/19 17:01 74/56 04/13/19 17:00 104 19 96/71 (79) 100 04/13/19 16:45 106 22 74/56 (62) 97 04/13/19 16:30 111 18 89/68 (75) 100 04/13/19 16:15 105 25 88/70 (76) 100 04/13/19 16:12 103 04/13/19 16:00 50 04/13/19 16:00 Mechanical Ventilator Mechanical Ventilator 04/13/19 16:00 97.0 104 20 88/70 (76) 98 04/13/19 15:39 50 04/13/19 14:36 114 16 100 Mechanical Ventilator 50.0 100 04/13/19 14:30 Mechanical Ventilator Mechanical Ventilator 04/13/19 14:30 116 16 100 Intake and Output 04/13/19 04/14/19 19:00 07:00 Intake Total 804.16 ml 1676.475 ml Output Total 506 ml 235 ml Balance 298.16 ml 1441.475 ml IV Total 804.16 ml 1676.475 ml Output Urine Total 505 ml 235 ml Stool Total 1 ml Laboratory Tests 04/13/19 15:21: Arterial Blood pH 7.302L, Arterial Blood Partial Pressure CO2 58.4*H, Arterial Blood Partial Pressure O2 459.8H, Arterial Blood HCO3 28.2H, Arterial Blood Oxygen Saturation 99.0, Arterial Blood Base Excess 1.1, Antonio Test Positive 04/13/19 18:45: White Blood Count 11.6#H, Red Blood Count 3.55L, Hemoglobin 9.7L, Hematocrit 32.5L, Mean Corpuscular Volume 92, Mean Corpuscular Hemoglobin 27.3, Mean Corpuscular Hemoglobin Concent 29.8L, Red Cell Distribution Width 17.5H, Platelet Count 196, Mean Platelet Volume 6.1L, Neutrophils (%) (Auto) 84.3H, Lymphocytes (%) (Auto) 8.2L, Monocytes (%) (Auto) 4.0, Eosinophils (%) (Auto) 2.6, Basophils (%) (Auto) 0.9, Troponin I 0.040 04/14/19 06:05: White Blood Count 11.7H, Red Blood Count 3.34L, Hemoglobin 9.6L, Hematocrit 28.7L, Mean Corpuscular Volume 86, Mean Corpuscular Hemoglobin 28.8, Mean Corpuscular Hemoglobin Concent 33.5, Red Cell Distribution Width 16.1H, Platelet Count 181, Mean Platelet Volume 5.0L, Neutrophils (%) (Auto) 80.0H, Lymphocytes (%) (Auto) 12.5L, Monocytes (%) (Auto) 4.2, Eosinophils (%) (Auto) 2.9, Basophils (%) (Auto) 0.4, Troponin I 0.131H, Sodium Level 151H, Potassium Level 3.3L, Chloride Level 117H, Carbon Dioxide Level 28, Anion Gap 6, Blood Urea Nitrogen 19H, Creatinine 1.4H, Estimat Glomerular Filtration Rate , Glucose Level 120H, Calcium Level 12.3H 04/14/19 09:24: Arterial Blood pH 7.357, Arterial Blood Partial Pressure CO2 47.8H, Arterial Blood Partial Pressure O2 74.8L, Arterial Blood HCO3 26.2H, Arterial Blood Oxygen Saturation 93.8L, Arterial Blood Base Excess 0.4, Antonio Test Positive 04/14/19 11:25: Urine Color Pale yellow, Urine Appearance Clear, Urine pH 5, Urine Specific [place] 1.015, Urine Protein 2+H, Urine Glucose (UA) Negative, Urine Ketones Negative, Urine Blood 5+H, Urine Nitrite Negative, Urine Bilirubin Negative, Urine Urobilinogen Normal, Urine Leukocyte Esterase 3+H, Urine RBC 2-4H, Urine WBC 10-15H, Urine Squamous Epithelial Cells None, Urine Bacteria Few Height (Feet): 5 Height (Inches): 7.00 Weight (Pounds): 141 General Appearance: lethargic EENT: normal ENT inspection Neck: normal alignment Cardiovascular: normal peripheral pulses, normal rate, regular rhythm Respiratory/Chest: chest wall non-tender, decreased breath sounds Abdomen: normal bowel sounds, non tender, soft Extremities: normal inspection Edema: no edema noted Arm (L), no edema noted Arm (R), no edema noted Leg (L), no edema noted Leg (R), no edema noted Pedal (L), no edema noted Pedal (R), no edema noted Generalized Neurologic: motor weakness Skin: normal pigmentation, warm/dry Sawyer Toussaint DO Apr 14, 2019 14:02
--- NOTE | 2019-04-14 14:14 | Surgery Progress Note ---
Surgery Progress Note Subjective Procedure Performed right femoral central venous catheter insertion Additional Comments off levo labs noted non responsive on vent ill appearing Objective Last 24 Hour Vital Signs Date Time Temp Pulse Resp B/P (MAP) Pulse Ox O2 Delivery O2 Flow Rate FiO2 04/14/19 14:00 96 14 147/73 (97) 100 04/14/19 13:16 100 14 100 Mechanical Ventilator 50.0 50 100 14 60 04/14/19 13:00 96 14 116/71 (86) 100 04/14/19 13:00 116/71 04/14/19 12:05 50 04/14/19 12:00 100.3 94 14 117/71 (86) 100 04/14/19 12:00 Mechanical Ventilator Mechanical Ventilator 04/14/19 12:00 117/71 04/14/19 12:00 94 04/14/19 11:30 97 14 101/65 (77) 100 04/14/19 11:00 97 14 50 04/14/19 11:00 101/65 04/14/19 11:00 91 14 114/74 (87) 100 04/14/19 10:00 103 21 113/73 (86) 100 04/14/19 10:00 124/76 04/14/19 09:30 106 34 119/75 (90) 100 04/14/19 09:15 106 14 50 04/14/19 09:00 117/69 04/14/19 09:00 94 19 99/66 (77) 100 04/14/19 08:59 104/65 04/14/19 08:55 104/65 04/14/19 08:02 113 04/14/19 08:00 50 04/14/19 08:00 Mechanical Ventilator Mechanical Ventilator 04/14/19 08:00 135/72 04/14/19 08:00 100.5 133 19 135/72 (93) 100 04/14/19 07:00 109 14 100 Mechanical Ventilator 50.0 50 112 16 60 04/14/19 07:00 125 16 107/69 (82) 100 04/14/19 07:00 100 Mechanical Ventilator 50.0 60 04/14/19 07:00 107/69 04/14/19 06:30 114 13 100/67 (78) 100 04/14/19 06:00 130 17 127/76 (93) 100 2/11/20 06:00 127/76 04/14/19 05:30 102 12 121/68 (85) 100 04/14/19 05:25 99 14 50 04/14/19 05:00 105/71 04/14/19 05:00 101 22 105/71 (82) 100 04/14/19 04:31 103/67 04/14/19 04:30 101 27 103/67 (79) 100 04/14/19 04:30 103/67 04/14/19 04:00 Mechanical Ventilator Mechanical Ventilator 04/14/19 04:00 102/71 04/14/19 04:00 104 04/14/19 04:00 98.0 104 28 102/71 (81) 100 04/14/19 04:00 50 04/14/19 03:30 106 11 102/66 (78) 100 04/14/19 03:15 111 27 104/71 (82) 100 04/14/19 03:00 104/71 04/14/19 03:00 100 17 121/81 (94) 100 04/14/19 02:50 101 14 50 04/14/19 02:45 105 20 115/78 (90) 100 04/14/19 02:30 100 15 114/72 (86) 100 04/14/19 02:15 101 17 112/71 (85) 100 04/14/19 02:00 116/81 04/14/19 02:00 103 20 116/81 (93) 100 04/14/19 01:45 105 18 115/69 (84) 100 04/14/19 01:30 102 21 106/71 (83) 100 04/14/19 01:27 102 14 100 Mechanical Ventilator 80 101 14 80 04/14/19 01:15 104 25 119/82 (94) 100 04/14/19 01:00 99 28 119/74 (89) 100 04/14/19 01:00 119/74 04/14/19 00:45 88 14 113/73 (86) 100 04/14/19 00:30 88 14 114/73 (87) 100 04/14/19 00:15 89 14 113/76 (88) 100 04/14/19 00:06 93 14 87/62 (70) 100 04/14/19 00:04 55/38 04/14/19 00:04 94 14 71/53 (59) 100 04/14/19 00:00 Mechanical Ventilator Mechanical Ventilator 04/14/19 00:00 93 04/14/19 00:00 94 14 55/38 (44) 100 04/13/19 23:34 110 14 50 04/13/19 23:30 91 14 107/65 (79) 100 04/13/19 23:00 113/69 04/13/19 23:00 91 15 113/69 (84) 100 04/13/19 22:30 94 14 116/60 (78) 100 04/13/19 22:00 99 16 109/67 (81) 100 04/13/19 22:00 109/67 04/13/19 21:30 97 8 107/69 (82) 100 04/13/19 21:15 Mechanical Ventilator Mechanical Ventilator 04/13/19 21:00 95 8 108/70 (83) 100 04/13/19 21:00 108/70 04/13/19 21:00 108/70 04/13/19 20:30 94 14 104/73 (83) 100 04/13/19 20:00 98.4 89 16 116/70 (85) 100 04/13/19 20:00 Mechanical Ventilator Mechanical Ventilator 04/13/19 20:00 92 04/13/19 20:00 116/70 04/13/19 20:00 50 04/13/19 19:50 96 14 100 Nasal Cannula 3.0 32 94 14 100 04/13/19 19:50 100 Mechanical Ventilator 50 04/13/19 19:50 114 14 50 04/13/19 19:45 90 14 101/77 (85) 100 04/13/19 19:30 89 14 103/75 (84) 100 04/13/19 19:15 90 14 92/66 (75) 99 04/13/19 19:00 94 14 91/64 (73) 99 04/13/19 19:00 97/63 04/13/19 18:59 94 15 97/63 (74) 98 04/13/19 18:45 102 14 77/51 (60) 100 04/13/19 18:30 114 14 80/57 (65) 100 04/13/19 18:15 122 15 93/59 (70) 95 04/13/19 18:00 93/59 04/13/19 18:00 98.4 107 15 144/85 (104) 93 04/13/19 17:45 124 19 146/87 (106) 92 04/13/19 17:30 98 20 88/65 (73) 91 04/13/19 17:20 118 14 50 04/13/19 17:15 91 26 136/92 (107) 100 04/13/19 17:01 74/56 04/13/19 17:00 104 19 96/71 (79) 100 04/13/19 16:45 106 22 74/56 (62) 97 04/13/19 16:30 111 18 89/68 (75) 100 04/13/19 16:15 105 25 88/70 (76) 100 04/13/19 16:12 103 04/13/19 16:00 50 04/13/19 16:00 Mechanical Ventilator Mechanical Ventilator 04/13/19 16:00 97.0 104 20 88/70 (76) 98 04/13/19 15:39 50 04/13/19 14:36 114 16 100 Mechanical Ventilator 50.0 100 04/13/19 14:30 Mechanical Ventilator Mechanical Ventilator 04/13/19 14:30 116 16 100 I&O Intake and Output 04/13/19 04/14/19 19:00 07:00 Intake Total 804.16 ml 1676.475 ml Output Total 506 ml 235 ml Balance 298.16 ml 1441.475 ml IV Total 804.16 ml 1676.475 ml Output Urine Total 505 ml 235 ml Stool Total 1 ml Dressing: other Wound: other Drains: other Cardiovascular: RSR Respiratory: decreased breath sounds Abdomen: soft, non-distended, decreased bowel sounds Extremities: no cyanosis, other Laboratory Tests Test 04/13/19 15:21 04/13/19 18:45 04/14/19 06:05 04/14/19 09:24 Arterial Blood pH 7.302 (7.350-7.450) 7.357 (7.350-7.450) Arterial Blood Partial Pressure CO2 58.4 mmHg (35.0-45.0) *H 47.8 mmHg (35.0-45.0) H Arterial Blood Partial Pressure O2 459.8 mmHg (75.0-100.0) H 74.8 mmHg (75.0-100.0) L Arterial Blood HCO3 28.2 mmol/L (22.0-26.0) H 26.2 mmol/L (22.0-26.0) H Arterial Blood Oxygen Saturation 99.0 % (95-100) 93.8 % (95-100) L Arterial Blood Base Excess 1.1 (-2-2) 0.4 (-2-2) Antonio Test Positive Positive White Blood Count 11.6 K/UL (4.8-10.8) #H 11.7 K/UL (4.8-10.8) H Red Blood Count 3.55 M/UL (4.70-6.10) L 3.34 M/UL (4.70-6.10) L Hemoglobin 9.7 G/DL (14.2-18.0) L 9.6 G/DL (14.2-18.0) L Hematocrit 32.5 % (42.0-52.0) L 28.7 % (42.0-52.0) L Mean Corpuscular Volume 92 FL (80-99) 86 FL (80-99) Mean Corpuscular Hemoglobin 27.3 PG (27.0-31.0) 28.8 PG (27.0-31.0) Mean Corpuscular Hemoglobin Concent 29.8 G/DL (32.0-36.0) L 33.5 G/DL (32.0-36.0) Red Cell Distribution Width 17.5 % (11.6-14.8) H 16.1 % (11.6-14.8) H Platelet Count 196 K/UL (150-450) 181 K/UL (150-450) Mean Platelet Volume 6.1 FL (6.5-10.1) L 5.0 FL (6.5-10.1) L Neutrophils (%) (Auto) 84.3 % (45.0-75.0) H 80.0 % (45.0-75.0) H Lymphocytes (%) (Auto) 8.2 % (20.0-45.0) L 12.5 % (20.0-45.0) L Monocytes (%) (Auto) 4.0 % (1.0-10.0) 4.2 % (1.0-10.0) Eosinophils (%) (Auto) 2.6 % (0.0-3.0) 2.9 % (0.0-3.0) Basophils (%) (Auto) 0.9 % (0.0-2.0) 0.4 % (0.0-2.0) Troponin I 0.040 ng/mL (0.000-0.056) 0.131 ng/mL (0.000-0.056) Sodium Level 151 MMOL/L (136-145) H Potassium Level 3.3 MMOL/L (3.5-5.1) L Chloride Level 117 MMOL/L (98-107) H Carbon Dioxide Level 28 MMOL/L (21-32) Anion Gap 6 mmol/L (5-15) Blood Urea Nitrogen 19 mg/dL (7-18) H Creatinine 1.4 MG/DL (0.55-1.30) H Estimat Glomerular Filtration Rate mL/min (>60) Glucose Level 120 MG/DL (74-106) H Calcium Level 12.3 MG/DL (8.5-10.1) H Test 04/14/19 11:25 Urine Color Pale yellow Urine Appearance Clear Urine pH 5 (4.5-8.0) Urine Specific [place] 1.015 (1.005-1.035) Urine Protein 2+ (NEGATIVE) H Urine Glucose (UA) Negative (NEGATIVE) Urine Ketones Negative (NEGATIVE) Urine Blood 5+ (NEGATIVE) H Urine Nitrite Negative (NEGATIVE) Urine Bilirubin Negative (NEGATIVE) Urine Urobilinogen Normal MG/DL (0.0-1.0) Urine Leukocyte Esterase 3+ (NEGATIVE) H Urine RBC 2-4 /HPF (0 - 0) H Urine WBC 10-15 /HPF (0 - 0) H Urine Squamous Epithelial Cells None /LPF (NONE/OCC) Urine Bacteria Few /HPF (NONE) Plan Problems: (1) Cardiac arrest Assessment & Plan: Acute deterioration Cardiovascular lopez ACLS required for resuscitation Still full code Hypotensive intensive care unit requiring a new central venous catheter see note Antibiotics as per infectious caries Hold tube feeds Vent management cont current treatment will follow with recs thank you (2) Stage III adenocarcinoma of prostate Assessment & Plan: patient with state 3 prostate cancer pending treatment at [facility] unlikely related to acute cardiac arrest this am abd exam with mild distention pending KUB no acute surgical intervention planned onc input thank you will follow with recs Jay Acevedo Apr 14, 2019 14:14
--- NOTE | 2019-04-14 14:22 | Diagnostic Imaging Report ---
Indication: Post intubation Technique: One view of the chest Comparison: 04/13/2019 Findings: Interim development of complete right upper lobe atelectasis. The aerated right lower lobe appears clear. Hazy opacity is seen throughout the left lung. Endotracheal tube is in satisfactory position, approximately 3 cm above the yari. There is and orogastric tube in place, proximal port projecting at the expected level of the gastroesophageal junction. Impression: Interim development of complete right upper lobe atelectasis. This finding was phoned to Dr. Mathews at the time of interpretation Nonspecific diffuse hazy left lung opacity, likely mild pulmonary edema. Borderline high position of orogastric tube, reported on concomitant abdominal radiograph
[2019-04-14] MEDS: Vancomycin 1.25gm/NS Premix IVPB SCH (14:32)
--- NOTE | 2019-04-14 14:38 | Nephrology Progress Note ---
Assessment/Plan Status: stable, progressing Assessment/Plan: A/P 1. LETA. secondary to dehydration from hypercalcemia/ischemic ATN post arrest - Cr 1.4 post repeat arrest 2. Prostate cancer with tremendously elevated PSA 800 Per Hematology/Oncology. 3. Hypokalemia. prn replacement. 4. Sepsis and UTI per Infectious Disease. 5. Hypernatremia- Na 151. Continue D5W 6- Hypercalcemia of malignancy- Calcitonin. add one dose of pamidrinate yesterday. Ca improved Subjective Date patient seen: Apr 14, 2019 Time patient seen: 14:36 ROS Limited/Unobtainable: Yes Allergies: Coded Allergies: No Known Allergies (Unverified , 04/03/19) Subjective Patient arrested last night. Now intubated on IV pressor Objective Last 24 Hour Vital Signs Date Time Temp Pulse Resp B/P (MAP) Pulse Ox O2 Delivery O2 Flow Rate FiO2 04/14/19 14:00 96 14 147/73 (97) 100 04/14/19 14:00 147/73 04/14/19 13:16 100 14 100 Mechanical Ventilator 50.0 50 100 14 60 04/14/19 13:00 96 14 116/71 (86) 100 04/14/19 13:00 116/71 04/14/19 12:05 50 04/14/19 12:00 100.3 94 14 117/71 (86) 100 04/14/19 12:00 Mechanical Ventilator Mechanical Ventilator 04/14/19 12:00 117/71 04/14/19 12:00 94 04/14/19 11:30 97 14 101/65 (77) 100 04/14/19 11:00 97 14 50 04/14/19 11:00 101/65 04/14/19 11:00 91 14 114/74 (87) 100 04/14/19 10:00 103 21 113/73 (86) 100 04/14/19 10:00 124/76 04/14/19 09:30 106 34 119/75 (90) 100 04/14/19 09:15 106 14 50 04/14/19 09:00 117/69 04/14/19 09:00 94 19 99/66 (77) 100 04/14/19 08:59 104/65 04/14/19 08:55 104/65 04/14/19 08:02 113 04/14/19 08:00 50 04/14/19 08:00 Mechanical Ventilator Mechanical Ventilator 04/14/19 08:00 135/72 04/14/19 08:00 100.5 133 19 135/72 (93) 100 04/14/19 07:00 109 14 100 Mechanical Ventilator 50.0 50 112 16 60 04/14/19 07:00 125 16 107/69 (82) 100 04/14/19 07:00 100 Mechanical Ventilator 50.0 60 04/14/19 07:00 107/69 04/14/19 06:30 114 13 100/67 (78) 100 04/14/19 06:00 130 17 127/76 (93) 100 04/14/19 06:00 127/76 04/14/19 05:30 102 12 121/68 (85) 100 04/14/19 05:25 99 14 50 04/14/19 05:00 105/71 04/14/19 05:00 101 22 105/71 (82) 100 04/14/19 04:31 103/67 04/14/19 04:30 101 27 103/67 (79) 100 04/14/19 04:30 103/67 04/14/19 04:00 Mechanical Ventilator Mechanical Ventilator 04/14/19 04:00 102/71 04/14/19 04:00 104 04/14/19 04:00 98.0 104 28 102/71 (81) 100 04/14/19 04:00 50 04/14/19 03:30 106 11 102/66 (78) 100 04/14/19 03:15 111 27 104/71 (82) 100 04/14/19 03:00 104/71 04/14/19 03:00 100 17 121/81 (94) 100 04/14/19 02:50 101 14 50 04/14/19 02:45 105 20 115/78 (90) 100 04/14/19 02:30 100 15 114/72 (86) 100 04/14/19 02:15 101 17 112/71 (85) 100 04/14/19 02:00 116/81 04/14/19 02:00 103 20 116/81 (93) 100 04/14/19 01:45 105 18 115/69 (84) 100 04/14/19 01:30 102 21 106/71 (83) 100 04/14/19 01:27 102 14 100 Mechanical Ventilator 80 101 14 80 04/14/19 01:15 104 25 119/82 (94) 100 04/14/19 01:00 99 28 119/74 (89) 100 04/14/19 01:00 119/74 04/14/19 00:45 88 14 113/73 (86) 100 04/14/19 00:30 88 14 114/73 (87) 100 04/14/19 00:15 89 14 113/76 (88) 100 04/14/19 00:06 93 14 87/62 (70) 100 04/14/19 00:04 55/38 04/14/19 00:04 94 14 71/53 (59) 100 04/14/19 00:00 Mechanical Ventilator Mechanical Ventilator 04/14/19 00:00 93 04/14/19 00:00 94 14 55/38 (44) 100 04/13/19 23:34 110 14 50 04/13/19 23:30 91 14 107/65 (79) 100 04/13/19 23:00 113/69 04/13/19 23:00 91 15 113/69 (84) 100 04/13/19 22:30 94 14 116/60 (78) 100 04/13/19 22:00 99 16 109/67 (81) 100 04/13/19 22:00 109/67 04/13/19 21:30 97 8 107/69 (82) 100 04/13/19 21:15 Mechanical Ventilator Mechanical Ventilator 04/13/19 21:00 95 8 108/70 (83) 100 04/13/19 21:00 108/70 04/13/19 21:00 108/70 04/13/19 20:30 94 14 104/73 (83) 100 04/13/19 20:00 98.4 89 16 116/70 (85) 100 04/13/19 20:00 Mechanical Ventilator Mechanical Ventilator 04/13/19 20:00 92 04/13/19 20:00 116/70 04/13/19 20:00 50 04/13/19 19:50 96 14 100 Nasal Cannula 3.0 32 94 14 100 04/13/19 19:50 100 Mechanical Ventilator 50 04/13/19 19:50 114 14 50 04/13/19 19:45 90 14 101/77 (85) 100 04/13/19 19:30 89 14 103/75 (84) 100 04/13/19 19:15 90 14 92/66 (75) 99 04/13/19 19:00 94 14 91/64 (73) 99 04/13/19 19:00 97/63 04/13/19 18:59 94 15 97/63 (74) 98 04/13/19 18:45 102 14 77/51 (60) 100 04/13/19 18:30 114 14 80/57 (65) 100 04/13/19 18:15 122 15 93/59 (70) 95 04/13/19 18:00 93/59 04/13/19 18:00 98.4 107 15 144/85 (104) 93 04/13/19 17:45 124 19 146/87 (106) 92 04/13/19 17:30 98 20 88/65 (73) 91 04/13/19 17:20 118 14 50 04/13/19 17:15 91 26 136/92 (107) 100 04/13/19 17:01 74/56 04/13/19 17:00 104 19 96/71 (79) 100 04/13/19 16:45 106 22 74/56 (62) 97 04/13/19 16:30 111 18 89/68 (75) 100 04/13/19 16:15 105 25 88/70 (76) 100 04/13/19 16:12 103 04/13/19 16:00 50 04/13/19 16:00 Mechanical Ventilator Mechanical Ventilator 04/13/19 16:00 97.0 104 20 88/70 (76) 98 04/13/19 15:39 50 Intake and Output 04/13/19 04/14/19 19:00 07:00 Intake Total 804.16 ml 1676.475 ml Output Total 506 ml 235 ml Balance 298.16 ml 1441.475 ml IV Total 804.16 ml 1676.475 ml Output Urine Total 505 ml 235 ml Stool Total 1 ml Laboratory Tests 04/13/19 15:21: Arterial Blood pH 7.302L, Arterial Blood Partial Pressure CO2 58.4*H, Arterial Blood Partial Pressure O2 459.8H, Arterial Blood HCO3 28.2H, Arterial Blood Oxygen Saturation 99.0, Arterial Blood Base Excess 1.1, Antonio Test Positive 04/13/19 18:45: White Blood Count 11.6#H, Red Blood Count 3.55L, Hemoglobin 9.7L, Hematocrit 32.5L, Mean Corpuscular Volume 92, Mean Corpuscular Hemoglobin 27.3, Mean Corpuscular Hemoglobin Concent 29.8L, Red Cell Distribution Width 17.5H, Platelet Count 196, Mean Platelet Volume 6.1L, Neutrophils (%) (Auto) 84.3H, Lymphocytes (%) (Auto) 8.2L, Monocytes (%) (Auto) 4.0, Eosinophils (%) (Auto) 2.6, Basophils (%) (Auto) 0.9, Troponin I 0.040 04/14/19 06:05: White Blood Count 11.7H, Red Blood Count 3.34L, Hemoglobin 9.6L, Hematocrit 28.7L, Mean Corpuscular Volume 86, Mean Corpuscular Hemoglobin 28.8, Mean Corpuscular Hemoglobin Concent 33.5, Red Cell Distribution Width 16.1H, Platelet Count 181, Mean Platelet Volume 5.0L, Neutrophils (%) (Auto) 80.0H, Lymphocytes (%) (Auto) 12.5L, Monocytes (%) (Auto) 4.2, Eosinophils (%) (Auto) 2.9, Basophils (%) (Auto) 0.4, Troponin I 0.131H, Sodium Level 151H, Potassium Level 3.3L, Chloride Level 117H, Carbon Dioxide Level 28, Anion Gap 6, Blood Urea Nitrogen 19H, Creatinine 1.4H, Estimat Glomerular Filtration Rate , Glucose Level 120H, Calcium Level 12.3H 04/14/19 09:24: Arterial Blood pH 7.357, Arterial Blood Partial Pressure CO2 47.8H, Arterial Blood Partial Pressure O2 74.8L, Arterial Blood HCO3 26.2H, Arterial Blood Oxygen Saturation 93.8L, Arterial Blood Base Excess 0.4, Antonio Test Positive 04/14/19 11:25: Urine Color Pale yellow, Urine Appearance Clear, Urine pH 5, Urine Specific [place] 1.015, Urine Protein 2+H, Urine Glucose (UA) Negative, Urine Ketones Negative, Urine Blood 5+H, Urine Nitrite Negative, Urine Bilirubin Negative, Urine Urobilinogen Normal, Urine Leukocyte Esterase 3+H, Urine RBC 2-4H, Urine WBC 10-15H, Urine Squamous Epithelial Cells None, Urine Bacteria Few Height (Feet): 5 Height (Inches): 7.00 Weight (Pounds): 141 General Appearance: other - intubated EENT: normal ENT inspection Neck: normal alignment, supple Cardiovascular: normal rate, regular rhythm Respiratory/Chest: rhonchi - bilaterally Abdomen: non tender, soft Edema: no edema noted Arm (L), no edema noted Arm (R), no edema noted Leg (L), no edema noted Leg (R), no edema noted Pedal (L), no edema noted Pedal (R), no edema noted Generalized Carlos White MD Apr 14, 2019 14:38
--- NOTE | 2019-04-14 16:00 | NUR ---
NURSE NOTES: Pt cleaned and repositioned. Urine output increasing. Pt remains on Levophed at 12mcg/min. No distress noted at this time.
--- NOTE | 2019-04-14 17:00 | Progress Note ---
DATE: 04/14/2019 SUBJECTIVE: This is a 73-year-old male with generalized weakness, confused, disorganized, and mood labile. He has no logical plan for his own self-care. He has got altered mental status and confusion. DIAGNOSIS: Major depressive disorder, mild, recurrent with psychotic features. PLAN: Continue treatment with medications to stabilize his mood and prevent any further decline in his cognition. 20 minutes of cognitive behavioral therapy to help him identify automatic negative thoughts and help him convert those negative thoughts to more positive thoughts to reduce depression, anxiety, and mood lability. Chart reviewed. Discussed with staff. Seen and assessed in his room. Cherise Palma M.D. DR: MANDI JOB#: [id number] CC:
--- NOTE | 2019-04-14 18:15 | NUR ---
NURSE NOTES: Pt is laying in bed with his eyes closed. Pt has periods of agitation and anxiousness, biting the ETT and fighting the vent.
--- NOTE | 2019-04-14 19:08 | NUR ---
HAND-OFF: Report given to BLANCA Walsh.
--- NOTE | 2019-04-14 19:30 | NUR ---
NURSE NOTES: Received pt with eyes close, but easily arousable to tactile stimulation, Orally intubated on ac mode, SR- ST low 100s on the monitor. Bp stable at this time , On Levophed drip for Bp support., Bilateral soft wrist restraints on for safety to avoid self extubation. NPO at this time. NGT clamped, Pt alsohas pressure sore sacral area , covered with optifoam Morales to gravity with yellow cloudy urine moderate in amt. pls see I and O. Monitor lytes. Will continue to monitor.
--- NOTE | 2019-04-14 20:00 | NUR ---
NURSE NOTES: Pt on p200 mattress. Turned q 2hrs prn with good skin care done.
--- NOTE | 2019-04-14 20:00 | NUR ---
NURSE NOTES: Levophed drip received at 12mcg/min, Bp at this time 119/75. Decrease Levophed down to 8mcg/min.
[2019-04-14] MEDS: Dyna-Hex 2% Top Sol 2oz TOPIC SCH (20:12)
--- NOTE | 2019-04-14 21:00 | NUR ---
NURSE NOTES: Bp 121/70. Levophed drip down to 6mcg/min.
[2019-04-14] MEDS: Tamsulosin 0.4mg cap ORAL SCH (21:30)
--- NOTE | 2019-04-14 22:00 | NUR ---
NURSE NOTES: Bp 110/65. levophed drip down to 4 mcg/min.
--- NOTE | 2019-04-14 22:00 | NUR ---
NURSE NOTES: Suctioned tn tk beige secretions moderate in amt. Oral care done.
--- NOTE | 2019-04-14 23:59 | NUR ---
NURSE NOTES: Pt more awake at this time and with good eye contact. Grandaughter at bedside.,updated with pts condition- Verbalized understanding.
[2019-04-15] VITALS (31 sets, daily range): BP systolic 84–146; BP diastolic 57–88
[2019-04-15] MEDS: Albuterol/Ipratropium 3ml neb HHN SCH ×2 (01:41→07:00)
--- NOTE | 2019-04-15 02:00 | NUR ---
NURSE NOTES: Turned off Levophed drip SBP >100. Watch for any hypotension.
--- NOTE | 2019-04-15 04:00 | NUR ---
NURSE NOTES: Complete bed bath with bed changed done. Suctioned Frothy secretions from mouth.
--- NOTE | 2019-04-15 06:47 | NUR ---
NURSE NOTES: Turned off Levophed drip SBP>100. Aware vehicle delivery workerBLANCA Azevedo
[2019-04-15 06:56] LABS: HEMATOCRIT 25.7 % (42.0-52.0); MEAN CORPUSCULAR VOLUME 84 FL (80-99); PLATELET COUNT 139 K/UL (150-450); RED BLOOD COUNT 3.07 M/UL (4.70-6.10); RED CELL DISTRIBUTION WIDTH 15.8 % (11.6-14.8); WHITE BLOOD COUNT 9.1 K/UL (4.8-10.8)
[2019-04-15 06:57] LABS: ANION GAP 7 mmol/L (5-15); BLOOD UREA NITROGEN 17 mg/dL (7-18); CALCIUM 11.6 MG/DL (8.5-10.1); CARBON DIOXIDE 29 MMOL/L (21-32); CHLORIDE 111 MMOL/L (98-107); CREATININE 1.4 MG/DL (0.55-1.30); POTASSIUM 3.3 MMOL/L (3.5-5.1); SODIUM 147 MMOL/L (136-145)
--- NOTE | 2019-04-15 07:10 | NUR ---
NURSE NOTES: MS GONZALES HERE TO SEE PT. NO NEW ORDERS, MAINTAIN SECUREMENT DEVICE AND POSITION OF BARTON TUBING.
--- NOTE | 2019-04-15 07:15 | NUR ---
NURSE NOTES: LATE ENTRY: PT BEING WEANED CPAP 10/06. WILL CONTINUE TO MONITOR PT.
--- NOTE | 2019-04-15 07:19 | NUR ---
HAND-OFF: Report given to Kellie RIOS.
--- NOTE | 2019-04-15 07:27 | Urology Progress Note ---
Assessment/Plan Status: stable, progressing Assessment/Plan: 1. 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 2. Urinary retention. 3. Acute kidney injury, improved. 4. Hydronephrosis, likely chronic. 5. Proteinuria. 6. UTI and colonization. 7. Hematuria. monitor clinically maintain guerra, last placed 04/10 hand irrigated and do PRN position is satisfactory monitor renal fxn, labile likely obst of bilateral distal ureters secondary to advanced prostate ca will need to see how aggressive pt and family want to be renal fxn improved with the new guerra consider ureteral stents or nephrostomies? flomax added voiding trial at some point? Subjective Allergies: Coded Allergies: No Known Allergies (Unverified , 04/03/19) Subjective all noted, remain in ICU, intubated off pressors Objective Last 24 Hour Vital Signs Date Time Temp Pulse Resp B/P (MAP) Pulse Ox O2 Delivery O2 Flow Rate FiO2 04/15/19 07:05 118 18 Mechanical Ventilator 40 50 04/15/19 06:00 108 22 99/68 (78) 100 04/15/19 05:43 110 14 50 04/15/19 05:00 101 22 119/72 (88) 100 04/15/19 04:00 50 04/15/19 04:00 97.8 98 20 97/64 (75) 100 04/15/19 04:00 Mechanical Ventilator Mechanical Ventilator 04/15/19 04:00 98 04/15/19 03:33 109 14 50 04/15/19 03:30 96 20 97/64 (75) 100 04/15/19 03:00 99 17 96/57 (70) 100 04/15/19 02:30 93 14 88/59 (69) 100 04/15/19 02:00 115/62 04/15/19 02:00 89 14 84/61 (69) 98 04/15/19 01:41 98 14 100 Mechanical Ventilator 50 99 14 50 04/15/19 01:30 99 21 110/68 (82) 99 04/15/19 01:00 97 22 101/63 (76) 96 04/15/19 01:00 110/68 04/15/19 00:30 95 23 96/63 (74) 04/15/19 00:00 50 04/15/19 00:00 97 04/15/19 00:00 Mechanical Ventilator Mechanical Ventilator 04/15/19 00:00 96/63 04/15/19 00:00 97.9 99 23 112/66 (81) 94 04/14/19 23:30 97 22 122/78 (93) 100 04/14/19 23:15 98 16 50 04/14/19 23:00 93 18 113/71 (85) 100 04/14/19 23:00 122/78 04/14/19 22:57 110/65 04/14/19 22:30 93 21 110/65 (80) 04/14/19 22:00 94 15 116/76 (89) 100 04/14/19 22:00 110/65 04/14/19 21:30 109 23 125/69 (87) 100 04/14/19 21:08 98 14 50 04/14/19 21:00 127/70 04/14/19 21:00 99/60 04/14/19 21:00 101 8 127/70 (89) 100 04/14/19 20:45 92 15 117/68 (84) 100 04/14/19 20:30 92 14 119/70 (86) 04/14/19 20:00 50 04/14/19 20:00 99.8 94 16 119/75 (90) 97 04/14/19 20:00 Mechanical Ventilator Mechanical Ventilator 04/14/19 20:00 94 04/14/19 20:00 119/75 04/14/19 19:30 92 18 137/85 (102) 99 04/14/19 19:18 97 15 100 Mechanical Ventilator 50 99 14 50 04/14/19 19:00 104 24 157/89 (111) 92 04/14/19 19:00 157/89 04/14/19 18:15 99 23 158/97 (117) 99 04/14/19 18:00 149/87 04/14/19 18:00 107 26 149/87 (107) 100 04/14/19 17:00 101 25 114/78 (90) 100 04/14/19 17:00 114/78 04/14/19 16:38 98 15 50 04/14/19 16:00 Mechanical Ventilator Mechanical Ventilator 04/14/19 16:00 107 04/14/19 16:00 135/76 04/14/19 16:00 50 04/14/19 16:00 100.5 103 18 135/76 (95) 100 04/14/19 15:00 136/76 04/14/19 15:00 102 16 136/76 (96) 100 04/14/19 15:00 100 22 50 04/14/19 14:56 112/68 04/14/19 14:00 96 14 147/73 (97) 100 04/14/19 14:00 147/73 04/14/19 13:16 100 14 100 Mechanical Ventilator 50.0 50 100 14 60 04/14/19 13:00 96 14 116/71 (86) 100 04/14/19 13:00 116/71 04/14/19 12:05 50 04/14/19 12:00 100.3 94 14 117/71 (86) 100 04/14/19 12:00 Mechanical Ventilator Mechanical Ventilator 04/14/19 12:00 117/71 04/14/19 12:00 94 04/14/19 11:30 97 14 101/65 (77) 100 04/14/19 11:00 97 14 50 04/14/19 11:00 101/65 04/14/19 11:00 91 14 114/74 (87) 100 04/14/19 10:00 103 21 113/73 (86) 100 04/14/19 10:00 124/76 04/14/19 09:30 106 34 119/75 (90) 100 04/14/19 09:15 106 14 50 04/14/19 09:00 117/69 04/14/19 09:00 94 19 99/66 (77) 100 04/14/19 08:59 104/65 04/14/19 08:55 104/65 04/14/19 08:02 113 04/14/19 08:00 50 04/14/19 08:00 Mechanical Ventilator Mechanical Ventilator 04/14/19 08:00 135/72 04/14/19 08:00 100.5 133 19 135/72 (93) 100 Intake and Output 04/14/19 04/15/19 19:00 07:00 Intake Total 1830.53 ml 656.25 ml Output Total 560 ml 620 ml Balance 1270.53 ml 36.25 ml IV Total 1830.53 ml 656.25 ml Output Urine Total 560 ml 620 ml Stool Total 0 ml Microbiology Date/Time Source Procedure Growth Status 04/07/19 09:30 Blood Blood Culture - Final NO GROWTH AFTER 5 DAYS Complete 04/07/19 09:30 Sputum Induced Gram Stain - Final Complete 04/07/19 09:30 Sputum Induced Sputum Culture - Final NORMAL UPPER RESPIRATORY DAVID PRESENT Complete 04/07/19 09:50 Urine,Clean Catch Urine Culture - Final NO GROWTH AFTER 48 HOURS Complete Current Medications Medications (Trade) Dose Ordered Sig/[place] Route PRN Reason Start Time Stop Time Status Last Admin Dose Admin Albuterol/ Ipratropium (Albuterol/ Ipratropium) 3 ml Q6HRT HHN 04/13/19 19:00 04/15/19 12:59 04/15/19 01:41 Calcitonin [place] (Miacalcin) 1 sprays DAILY NASAL 04/14/19 09:00 05/10/19 13:29 04/14/19 09:13 Cefepime HCl 1 gm/ Dextrose 55 ml @ 110 mls/hr EVERY 12 HOURS IVPB 04/14/19 13:00 04/21/19 12:59 04/14/19 22:52 Chlorhexidine Gluconate (Martha-Hex 2%) 1 applic DAILY@2000 TOPIC 04/13/19 20:00 05/06/19 19:59 04/14/19 20:12 Dextrose 1,000 ml @ 50 mls/hr Q20H IV 04/13/19 14:45 05/12/19 13:14 04/15/19 04:25 Enoxaparin Sodium (Lovenox) 30 mg DAILY SUBQ 04/14/19 09:00 05/04/19 08:59 04/14/19 09:04 Hydralazine HCl (Apresoline) 10 mg Q12HR NG 04/13/19 21:00 05/10/19 17:59 Hydralazine HCl (Apresoline) 10 mg Q4H PRN IV SBP > 170mmHg 04/13/19 15:00 05/08/19 14:59 Lansoprazole (Prevacid) 30 mg DAILY ORAL 04/14/19 09:00 05/13/19 08:59 04/14/19 09:02 Memantine (Namenda) 5 mg BID ORAL 04/13/19 18:00 05/04/19 17:59 04/14/19 17:28 Morphine Sulfate (Morphine Sulfate) 1 mg Q4H PRN IVP PAIN 4-10 04/13/19 18:00 04/20/19 17:59 04/14/19 05:43 Norepinephrine Bitartrate 4 mg/ Dextrose 250 ml @ 0 mls/hr Q24H IV 04/13/19 17:00 05/13/19 16:59 04/14/19 22:57 Tamsulosin HCl (Flomax) 0.4 mg BEDTIME ORAL 04/13/19 21:00 05/13/19 20:59 04/14/19 21:30 Vancomycin HCl (Vanco rx to dose) 1 ea DAILY PRN MISC Per rx protocol 04/14/19 11:15 05/14/19 11:14 Vancomycin/Sodium Chloride 275 ml @ 183.333 mls/hr Q24H IVPB 04/14/19 14:00 04/19/19 13:59 04/14/19 14:32 Laboratory Tests 04/14/19 09:24: Arterial Blood pH 7.357, Arterial Blood Partial Pressure CO2 47.8H, Arterial Blood Partial Pressure O2 74.8L, Arterial Blood HCO3 26.2H, Arterial Blood Oxygen Saturation 93.8L, Arterial Blood Base Excess 0.4, Antonio Test Positive 04/14/19 11:25: Urine Color Pale yellow, Urine Appearance Clear, Urine pH 5, Urine Specific [place] 1.015, Urine Protein 2+H, Urine Glucose (UA) Negative, Urine Ketones Negative, Urine Blood 5+H, Urine Nitrite Negative, Urine Bilirubin Negative, Urine Urobilinogen Normal, Urine Leukocyte Esterase 3+H, Urine RBC 2-4H, Urine WBC 10-15H, Urine Squamous Epithelial Cells None, Urine Bacteria Few 04/15/19 05:37: White Blood Count 9.1, Red Blood Count 3.07L, Hemoglobin 9.0L, Hematocrit 25.7L , Mean Corpuscular Volume 84, Mean Corpuscular Hemoglobin 29.3, Mean Corpuscular Hemoglobin Concent 34.9, Red Cell Distribution Width 15.8H, Platelet Count 139L, Mean Platelet Volume 5.1L, Neutrophils (%) (Auto) , Lymphocytes (%) (Auto) , Monocytes (%) (Auto) , Eosinophils (%) (Auto) , Basophils (%) (Auto) , Neutrophils % (Manual) [Pending], Lymphocytes % (Manual) [Pending], Platelet Estimate [Pending], Platelet Morphology [Pending], Sodium Level 147H, Potassium Level 3.3L, Chloride Level 111H, Carbon Dioxide Level 29, Anion Gap 7, Blood Urea Nitrogen 17, Creatinine 1.4H, Estimat Glomerular Filtration Rate > 60, Glucose Level 88, Calcium Level 11.6H Height (Feet): 5 Height (Inches): 7.00 Weight (Pounds): 141 Objective exam stable guerra indwelling, allegra urine CT A/P (04/10) noted Raz Root MD Apr 15, 2019 07:27
--- NOTE | 2019-04-15 07:30 | NUR ---
NURSE NOTES: LATE ENTRY: RECEIVED ORDER FROM IMCHAEL Rosales PT IN BED. AWAKENS EYES TO NAME. SHAKING. VS 115, 121/74, SPO2 100, RR 23. PUPILS SLUGGISH 4MM. GAG PRESENT. STRENGTH 3/5. PT INTUBATED 7.5, 24CM AT LI[P, VENT SETTINGS AC 14, VT 500, PEEP 5, FIO2 50%. RHONCHI THOUGHT OUT. BILATERAL RADIAL PULSES POUNDING. ABDOMEN ROUND, BOWEL SOUNDS HYPOACTIVE. NO BM AT THIS TIME. PT NPO. NGT LT NARES. BARTON DRAINING W/ SEDIMENT, YELLOW URINE. SKIN- SEE ASSESSMENT. IV ACCESS RT HAND 18G, LT WRIST 2X 22G, RT FEMORAL TLC. D5W AT 50ML/HR. A FEBRILE. STANDARD PRECAUTIONS. CALL LIGHT IN REACH. RESTRAINTS BILATERAL. BED ALARM ON
--- NOTE | 2019-04-15 08:05 | NUR ---
NURSE NOTES: MD REMY HERE TO SEE PT. INFORMED OF WEANING, LABS OF CONCERN K 3.3. Ca 11.6 BUT TRENDING DOWN. RECEIVED ORDER FOR 40KCL IVP ONCE.
[2019-04-15] MEDS: Cefepime HCl 1 GM in D5W 55 ML IVPB SCH (08:35)
[2019-04-15] MEDS: Memantine 5 MG TAB ORAL SCH ×2 (08:36→18:29)
[2019-04-15] MEDS: Enoxaparin 30mg Inj SUBQ SCH (08:36)
[2019-04-15] MEDS: HydrALAZINE 10mg Tab NG SCH ×2 (08:50→21:17)
--- NOTE | 2019-04-15 09:38 | Pulmonology Progress Note ---
Assessment/Plan Assessment/Plan IMPRESSION: 1. Status post asystolic cardiac arrest. Again on 04/13/19 2. Respiratory failure, re-intubated 3. Altered mental status. 4. Hypernatremia. Corrected. 5. Hypokalemia . Corrected. 6. History of COPD. 7. Prostate CA. DISCUSSION: 1. Discussed with cardiology and PMD 2. Discussed with daughter in law 3. Poor prognosis 4. Will attempt wean; hope to extubate today Ganesh Mathews M.D. Subjective Interval Events: Awake and responsive Constitutional: Reports: no symptoms HEENT: Repors: no symptoms Respiratory: Reports: no symptoms Cardiovascular: Reports: no symptoms Gastrointestinal/Abdominal: Reports: no symptoms Genitourinary: Reports: no symptoms Allergies: Coded Allergies: No Known Allergies (Unverified , 04/03/19) Objective Last 24 Hour Vital Signs Date Time Temp Pulse Resp B/P (MAP) Pulse Ox O2 Delivery O2 Flow Rate FiO2 04/15/19 08:50 130/72 04/15/19 08:00 115 22 112/69 (83) 100 04/15/19 07:05 118 18 Mechanical Ventilator 40 50 04/15/19 07:00 98.8 108 21 117/65 (82) 100 04/15/19 06:00 108 22 99/68 (78) 100 04/15/19 05:43 110 14 50 04/15/19 05:00 101 22 119/72 (88) 100 04/15/19 04:00 50 04/15/19 04:00 97.8 98 20 97/64 (75) 100 04/15/19 04:00 Mechanical Ventilator Mechanical Ventilator 04/15/19 04:00 98 04/15/19 03:33 109 14 50 04/15/19 03:30 96 20 97/64 (75) 100 04/15/19 03:00 99 17 96/57 (70) 100 04/15/19 02:30 93 14 88/59 (69) 100 04/15/19 02:00 115/62 04/15/19 02:00 89 14 84/61 (69) 98 04/15/19 01:41 98 14 100 Mechanical Ventilator 50 99 14 50 04/15/19 01:30 99 21 110/68 (82) 99 04/15/19 01:00 97 22 101/63 (76) 96 04/15/19 01:00 110/68 04/15/19 00:30 95 23 96/63 (74) 04/15/19 00:00 50 04/15/19 00:00 97 04/15/19 00:00 Mechanical Ventilator Mechanical Ventilator 04/15/19 00:00 96/63 04/15/19 00:00 97.9 99 23 112/66 (81) 94 04/14/19 23:30 97 22 122/78 (93) 100 04/14/19 23:15 98 16 50 04/14/19 23:00 93 18 113/71 (85) 100 04/14/19 23:00 122/78 04/14/19 22:57 110/65 04/14/19 22:30 93 21 110/65 (80) 04/14/19 22:00 94 15 116/76 (89) 100 04/14/19 22:00 110/65 04/14/19 21:30 109 23 125/69 (87) 100 04/14/19 21:08 98 14 50 04/14/19 21:00 127/70 04/14/19 21:00 99/60 04/14/19 21:00 101 8 127/70 (89) 100 04/14/19 20:45 92 15 117/68 (84) 100 04/14/19 20:30 92 14 119/70 (86) 04/14/19 20:00 50 04/14/19 20:00 99.8 94 16 119/75 (90) 97 04/14/19 20:00 Mechanical Ventilator Mechanical Ventilator 04/14/19 20:00 94 04/14/19 20:00 119/75 04/14/19 19:30 92 18 137/85 (102) 99 04/14/19 19:18 97 15 100 Mechanical Ventilator 50 99 14 50 04/14/19 19:00 104 24 157/89 (111) 92 04/14/19 19:00 157/89 04/14/19 18:15 99 23 158/97 (117) 99 04/14/19 18:00 149/87 04/14/19 18:00 107 26 149/87 (107) 100 04/14/19 17:00 101 25 114/78 (90) 100 04/14/19 17:00 114/78 04/14/19 16:38 98 15 50 04/14/19 16:00 Mechanical Ventilator Mechanical Ventilator 04/14/19 16:00 107 04/14/19 16:00 135/76 04/14/19 16:00 50 04/14/19 16:00 100.5 103 18 135/76 (95) 100 04/14/19 15:00 136/76 04/14/19 15:00 102 16 136/76 (96) 100 04/14/19 15:00 100 22 50 04/14/19 14:56 112/68 04/14/19 14:00 96 14 147/73 (97) 100 04/14/19 14:00 147/73 04/14/19 13:16 100 14 100 Mechanical Ventilator 50.0 50 100 14 60 04/14/19 13:00 96 14 116/71 (86) 100 04/14/19 13:00 116/71 04/14/19 12:05 50 04/14/19 12:00 100.3 94 14 117/71 (86) 100 04/14/19 12:00 Mechanical Ventilator Mechanical Ventilator 04/14/19 12:00 117/71 04/14/19 12:00 94 04/14/19 11:30 97 14 101/65 (77) 100 04/14/19 11:00 97 14 50 04/14/19 11:00 101/65 04/14/19 11:00 91 14 114/74 (87) 100 04/14/19 10:00 103 21 113/73 (86) 100 04/14/19 10:00 124/76 Intake and Output 04/14/19 04/15/19 18:59 06:59 Intake Total 1841.78 ml 751.25 ml Output Total 500 ml 645 ml Balance 1341.78 ml 106.25 ml IV Total 1841.78 ml 751.25 ml Output Urine Total 500 ml 645 ml Stool Total 0 ml General Appearance: no acute distress HEENT: normocephalic Respiratory/Chest: chest wall non-tender, normal breath sounds Cardiovascular: normal peripheral pulses Microbiology Date/Time Source Procedure Growth Status 04/14/19 11:25 Urine,Random Urine Culture - Preliminary NO GROWTH Resulted Laboratory Tests 04/14/19 11:25: Urine Color Pale yellow, Urine Appearance Clear, Urine pH 5, Urine Specific [place] 1.015, Urine Protein 2+H, Urine Glucose (UA) Negative, Urine Ketones Negative, Urine Blood 5+H, Urine Nitrite Negative, Urine Bilirubin Negative, Urine Urobilinogen Normal, Urine Leukocyte Esterase 3+H, Urine RBC 2-4H, Urine WBC 10-15H, Urine Squamous Epithelial Cells None, Urine Bacteria Few 04/15/19 05:37: White Blood Count 9.1, Red Blood Count 3.07L, Hemoglobin 9.0L, Hematocrit 25.7L , Mean Corpuscular Volume 84, Mean Corpuscular Hemoglobin 29.3, Mean Corpuscular Hemoglobin Concent 34.9, Red Cell Distribution Width 15.8H, Platelet Count 139L, Mean Platelet Volume 5.1L, Neutrophils (%) (Auto) , Lymphocytes (%) (Auto) , Monocytes (%) (Auto) , Eosinophils (%) (Auto) , Basophils (%) (Auto) , Neutrophils % (Manual) [Pending], Lymphocytes % (Manual) [Pending], Platelet Estimate [Pending], Platelet Morphology [Pending], Sodium Level 147H, Potassium Level 3.3L, Chloride Level 111H, Carbon Dioxide Level 29, Anion Gap 7, Blood Urea Nitrogen 17, Creatinine 1.4H, Estimat Glomerular Filtration Rate > 60, Glucose Level 88, Calcium Level 11.6H 04/15/19 08:58: Arterial Blood pH 7.299L, Arterial Blood Partial Pressure CO2 53.7H, Arterial Blood Partial Pressure O2 95.7, Arterial Blood HCO3 25.8, Arterial Blood Oxygen Saturation 96.1, Arterial Blood Base Excess -1.0, Antonio Test Positive Current Medications Medications (Trade) Dose Ordered Sig/[place] Route PRN Reason Start Time Stop Time Status Last Admin Dose Admin Albuterol/ Ipratropium (Albuterol/ Ipratropium) 3 ml Q6HRT HHN 04/13/19 19:00 04/15/19 12:59 04/15/19 01:41 Calcitonin [place] (Miacalcin) 1 sprays DAILY NASAL 04/14/19 09:00 05/10/19 13:29 04/14/19 09:13 Cefepime HCl 1 gm/ Dextrose 55 ml @ 110 mls/hr EVERY 12 HOURS IVPB 04/14/19 13:00 04/21/19 12:59 04/15/19 08:35 Chlorhexidine Gluconate (Martha-Hex 2%) 1 applic DAILY@2000 TOPIC 04/13/19 20:00 05/06/19 19:59 04/14/19 20:12 Dextrose 1,000 ml @ 50 mls/hr Q20H IV 04/13/19 14:45 05/12/19 13:14 04/15/19 04:25 Enoxaparin Sodium (Lovenox) 30 mg DAILY SUBQ 04/14/19 09:00 05/04/19 08:59 04/14/19 09:04 Hydralazine HCl (Apresoline) 10 mg Q12HR NG 04/13/19 21:00 05/10/19 17:59 04/15/19 08:50 Hydralazine HCl (Apresoline) 10 mg Q4H PRN IV SBP > 170mmHg 04/13/19 15:00 05/08/19 14:59 Lansoprazole (Prevacid) 30 mg DAILY ORAL 04/14/19 09:00 05/13/19 08:59 04/15/19 08:35 Memantine (Namenda) 5 mg BID ORAL 04/13/19 18:00 05/04/19 17:59 04/15/19 08:36 Morphine Sulfate (Morphine Sulfate) 1 mg Q4H PRN IVP PAIN 4-10 04/13/19 18:00 04/20/19 17:59 04/14/19 05:43 Norepinephrine Bitartrate 4 mg/ Dextrose 250 ml @ 0 mls/hr Q24H IV 04/13/19 17:00 05/13/19 16:59 04/14/19 22:57 Potassium Chloride 100 ml @ 50 mls/hr ONCE ONCE IVPB 04/15/19 08:30 04/15/19 10:29 04/15/19 08:34 Potassium Chloride 100 ml @ 50 mls/hr ONCE ONCE IVPB 04/15/19 10:30 04/15/19 12:29 Tamsulosin HCl (Flomax) 0.4 mg BEDTIME ORAL 04/13/19 21:00 05/13/19 20:59 04/14/19 21:30 Vancomycin HCl (Vanco rx to dose) 1 ea DAILY PRN MISC Per rx protocol 04/14/19 11:15 05/14/19 11:14 Vancomycin/Sodium Chloride 275 ml @ 183.333 mls/hr Q24H IVPB 04/14/19 14:00 04/19/19 13:59 04/14/19 14:32 Ganesh Mathews MD Apr 15, 2019 09:38
--- NOTE | 2019-04-15 09:57 | NUR ---
NURSE NOTES: LATE ENTRY: RECEIVED CALL FROM MD BLACKBURN. PT NPO, WEANED THIS AM, LAST BM 04/14, D5W AT 50ML/HR. RECEIVED ORDER FOR TUBE FEED VITAL A.F AT 55ML/HR GAOL.
--- NOTE | 2019-04-15 09:58 | Nephrology Progress Note ---
Assessment/Plan Status: stable, progressing Assessment/Plan: A/P 1. LETA. secondary to dehydration from hypercalcemia/ischemic ATN post arrest - Cr 1.4 stable 2. Prostate cancer with tremendously elevated PSA 800 Per Hematology/Oncology. 3. Hypokalemia. being replaced 4. Sepsis and UTI per Infectious Disease mgmt 5. Hypernatremia- Continue D5W as Na improved 6- Hypercalcemia of malignancy- Calcitonin. add one dose of pamidrinate - Ca down to 11.1 Subjective Date patient seen: Apr 15, 2019 Time patient seen: 09:55 ROS Limited/Unobtainable: Yes Allergies: Coded Allergies: No Known Allergies (Unverified , 04/03/19) Subjective Patient intubated off IV pressor Objective Last 24 Hour Vital Signs Date Time Temp Pulse Resp B/P (MAP) Pulse Ox O2 Delivery O2 Flow Rate FiO2 04/15/19 08:50 130/72 04/15/19 08:00 115 22 112/69 (83) 100 04/15/19 07:05 118 18 Mechanical Ventilator 40 50 04/15/19 07:00 98.8 108 21 117/65 (82) 100 04/15/19 06:00 108 22 99/68 (78) 100 04/15/19 05:43 110 14 50 04/15/19 05:00 101 22 119/72 (88) 100 04/15/19 04:00 50 04/15/19 04:00 97.8 98 20 97/64 (75) 100 04/15/19 04:00 Mechanical Ventilator Mechanical Ventilator 04/15/19 04:00 98 04/15/19 03:33 109 14 50 04/15/19 03:30 96 20 97/64 (75) 100 04/15/19 03:00 99 17 96/57 (70) 100 04/15/19 02:30 93 14 88/59 (69) 100 04/15/19 02:00 115/62 04/15/19 02:00 89 14 84/61 (69) 98 04/15/19 01:41 98 14 100 Mechanical Ventilator 50 99 14 50 04/15/19 01:30 99 21 110/68 (82) 99 04/15/19 01:00 97 22 101/63 (76) 96 04/15/19 01:00 110/68 2/12/20 00:30 95 23 96/63 (74) 04/15/19 00:00 50 04/15/19 00:00 97 04/15/19 00:00 Mechanical Ventilator Mechanical Ventilator 04/15/19 00:00 96/63 04/15/19 00:00 97.9 99 23 112/66 (81) 94 04/14/19 23:30 97 22 122/78 (93) 100 04/14/19 23:15 98 16 50 04/14/19 23:00 93 18 113/71 (85) 100 04/14/19 23:00 122/78 04/14/19 22:57 110/65 04/14/19 22:30 93 21 110/65 (80) 04/14/19 22:00 94 15 116/76 (89) 100 04/14/19 22:00 110/65 04/14/19 21:30 109 23 125/69 (87) 100 04/14/19 21:08 98 14 50 04/14/19 21:00 127/70 04/14/19 21:00 99/60 04/14/19 21:00 101 8 127/70 (89) 100 04/14/19 20:45 92 15 117/68 (84) 100 04/14/19 20:30 92 14 119/70 (86) 04/14/19 20:00 50 04/14/19 20:00 99.8 94 16 119/75 (90) 97 04/14/19 20:00 Mechanical Ventilator Mechanical Ventilator 04/14/19 20:00 94 04/14/19 20:00 119/75 04/14/19 19:30 92 18 137/85 (102) 99 04/14/19 19:18 97 15 100 Mechanical Ventilator 50 99 14 50 04/14/19 19:00 104 24 157/89 (111) 92 04/14/19 19:00 157/89 04/14/19 18:15 99 23 158/97 (117) 99 04/14/19 18:00 149/87 04/14/19 18:00 107 26 149/87 (107) 100 04/14/19 17:00 101 25 114/78 (90) 100 04/14/19 17:00 114/78 04/14/19 16:38 98 15 50 04/14/19 16:00 Mechanical Ventilator Mechanical Ventilator 04/14/19 16:00 107 04/14/19 16:00 135/76 04/14/19 16:00 50 04/14/19 16:00 100.5 103 18 135/76 (95) 100 04/14/19 15:00 136/76 04/14/19 15:00 102 16 136/76 (96) 100 04/14/19 15:00 100 22 50 04/14/19 14:56 112/68 04/14/19 14:00 96 14 147/73 (97) 100 04/14/19 14:00 147/73 04/14/19 13:16 100 14 100 Mechanical Ventilator 50.0 50 100 14 60 04/14/19 13:00 96 14 116/71 (86) 100 04/14/19 13:00 116/71 04/14/19 12:05 50 04/14/19 12:00 100.3 94 14 117/71 (86) 100 04/14/19 12:00 Mechanical Ventilator Mechanical Ventilator 04/14/19 12:00 117/71 04/14/19 12:00 94 04/14/19 11:30 97 14 101/65 (77) 100 04/14/19 11:00 97 14 50 04/14/19 11:00 101/65 04/14/19 11:00 91 14 114/74 (87) 100 04/14/19 10:00 103 21 113/73 (86) 100 04/14/19 10:00 124/76 Intake and Output 04/14/19 04/15/19 19:00 07:00 Intake Total 1830.53 ml 706.25 ml Output Total 560 ml 620 ml Balance 1270.53 ml 86.25 ml IV Total 1830.53 ml 706.25 ml Output Urine Total 560 ml 620 ml Stool Total 0 ml Laboratory Tests 04/14/19 11:25: Urine Color Pale yellow, Urine Appearance Clear, Urine pH 5, Urine Specific [place] 1.015, Urine Protein 2+H, Urine Glucose (UA) Negative, Urine Ketones Negative, Urine Blood 5+H, Urine Nitrite Negative, Urine Bilirubin Negative, Urine Urobilinogen Normal, Urine Leukocyte Esterase 3+H, Urine RBC 2-4H, Urine WBC 10-15H, Urine Squamous Epithelial Cells None, Urine Bacteria Few 04/15/19 05:37: White Blood Count 9.1, Red Blood Count 3.07L, Hemoglobin 9.0L, Hematocrit 25.7L , Mean Corpuscular Volume 84, Mean Corpuscular Hemoglobin 29.3, Mean Corpuscular Hemoglobin Concent 34.9, Red Cell Distribution Width 15.8H, Platelet Count 139L, Mean Platelet Volume 5.1L, Neutrophils (%) (Auto) , Lymphocytes (%) (Auto) , Monocytes (%) (Auto) , Eosinophils (%) (Auto) , Basophils (%) (Auto) , Differential Total Cells Counted 100, Neutrophils % ( Manual) 82H, Lymphocytes % (Manual) 12L, Monocytes % (Manual) 4, Eosinophils % ( Manual) 2, Basophils % (Manual) 0, Band Neutrophils 0, Platelet Estimate DecreasedL, Platelet Morphology Normal, Anisocytosis 1+, Sodium Level 147H, Potassium Level 3.3L, Chloride Level 111H, Carbon Dioxide Level 29, Anion Gap 7 , Blood Urea Nitrogen 17, Creatinine 1.4H, Estimat Glomerular Filtration Rate > 60, Glucose Level 88, Calcium Level 11.6H 04/15/19 08:58: Arterial Blood pH 7.299L, Arterial Blood Partial Pressure CO2 53.7H, Arterial Blood Partial Pressure O2 95.7, Arterial Blood HCO3 25.8, Arterial Blood Oxygen Saturation 96.1, Arterial Blood Base Excess -1.0, Antonio Test Positive Height (Feet): 5 Height (Inches): 7.00 Weight (Pounds): 141 General Appearance: no apparent distress EENT: normal ENT inspection Neck: normal alignment, supple Cardiovascular: normal rate, regular rhythm Respiratory/Chest: rhonchi - bilaterally Abdomen: non tender, soft Edema: no edema noted Arm (L), no edema noted Arm (R), no edema noted Leg (L), no edema noted Leg (R), no edema noted Pedal (L), no edema noted Pedal (R), no edema noted Generalized Carlos White MD Apr 15, 2019 09:58
--- NOTE | 2019-04-15 10:00 | NUR ---
NURSE NOTES: LATE ENTRY: MD GRAHAM HERE TO SEE PT. NO NEW ORDER AT THIS TIME.
--- NOTE | 2019-04-15 10:02 | Surgery Progress Note ---
Surgery Progress Note Subjective Procedure Performed right femoral central venous catheter insertion Symptoms: improved Additional Comments on vent support more awake and responsive putting up fingers and responding to commands Objective Last 24 Hour Vital Signs Date Time Temp Pulse Resp B/P (MAP) Pulse Ox O2 Delivery O2 Flow Rate FiO2 04/15/19 08:50 130/72 04/15/19 08:00 115 22 112/69 (83) 100 04/15/19 07:05 118 18 Mechanical Ventilator 40 50 04/15/19 07:00 98.8 108 21 117/65 (82) 100 04/15/19 06:00 108 22 99/68 (78) 100 04/15/19 05:43 110 14 50 04/15/19 05:00 101 22 119/72 (88) 100 04/15/19 04:00 50 04/15/19 04:00 97.8 98 20 97/64 (75) 100 04/15/19 04:00 Mechanical Ventilator Mechanical Ventilator 04/15/19 04:00 98 04/15/19 03:33 109 14 50 04/15/19 03:30 96 20 97/64 (75) 100 04/15/19 03:00 99 17 96/57 (70) 100 04/15/19 02:30 93 14 88/59 (69) 100 04/15/19 02:00 115/62 04/15/19 02:00 89 14 84/61 (69) 98 04/15/19 01:41 98 14 100 Mechanical Ventilator 50 99 14 50 04/15/19 01:30 99 21 110/68 (82) 99 04/15/19 01:00 97 22 101/63 (76) 96 04/15/19 01:00 110/68 04/15/19 00:30 95 23 96/63 (74) 04/15/19 00:00 50 04/15/19 00:00 97 04/15/19 00:00 Mechanical Ventilator Mechanical Ventilator 04/15/19 00:00 96/63 04/15/19 00:00 97.9 99 23 112/66 (81) 94 04/14/19 23:30 97 22 122/78 (93) 100 04/14/19 23:15 98 16 50 04/14/19 23:00 93 18 113/71 (85) 100 04/14/19 23:00 122/78 04/14/19 22:57 110/65 04/14/19 22:30 93 21 110/65 (80) 04/14/19 22:00 94 15 116/76 (89) 100 04/14/19 22:00 110/65 04/14/19 21:30 109 23 125/69 (87) 100 04/14/19 21:08 98 14 50 04/14/19 21:00 127/70 04/14/19 21:00 99/60 04/14/19 21:00 101 8 127/70 (89) 100 04/14/19 20:45 92 15 117/68 (84) 100 04/14/19 20:30 92 14 119/70 (86) 04/14/19 20:00 50 04/14/19 20:00 99.8 94 16 119/75 (90) 97 04/14/19 20:00 Mechanical Ventilator Mechanical Ventilator 04/14/19 20:00 94 04/14/19 20:00 119/75 04/14/19 19:30 92 18 137/85 (102) 99 04/14/19 19:18 97 15 100 Mechanical Ventilator 50 99 14 50 04/14/19 19:00 104 24 157/89 (111) 92 04/14/19 19:00 157/89 04/14/19 18:15 99 23 158/97 (117) 99 04/14/19 18:00 149/87 04/14/19 18:00 107 26 149/87 (107) 100 04/14/19 17:00 101 25 114/78 (90) 100 04/14/19 17:00 114/78 04/14/19 16:38 98 15 50 04/14/19 16:00 Mechanical Ventilator Mechanical Ventilator 04/14/19 16:00 107 04/14/19 16:00 135/76 04/14/19 16:00 50 04/14/19 16:00 100.5 103 18 135/76 (95) 100 04/14/19 15:00 136/76 04/14/19 15:00 102 16 136/76 (96) 100 04/14/19 15:00 100 22 50 04/14/19 14:56 112/68 04/14/19 14:00 96 14 147/73 (97) 100 04/14/19 14:00 147/73 04/14/19 13:16 100 14 100 Mechanical Ventilator 50.0 50 100 14 60 04/14/19 13:00 96 14 116/71 (86) 100 04/14/19 13:00 116/71 04/14/19 12:05 50 04/14/19 12:00 100.3 94 14 117/71 (86) 100 04/14/19 12:00 Mechanical Ventilator Mechanical Ventilator 04/14/19 12:00 117/71 04/14/19 12:00 94 04/14/19 11:30 97 14 101/65 (77) 100 04/14/19 11:00 97 14 50 04/14/19 11:00 101/65 04/14/19 11:00 91 14 114/74 (87) 100 I&O Intake and Output 04/14/19 04/15/19 19:00 07:00 Intake Total 1830.53 ml 706.25 ml Output Total 560 ml 620 ml Balance 1270.53 ml 86.25 ml IV Total 1830.53 ml 706.25 ml Output Urine Total 560 ml 620 ml Stool Total 0 ml Dressing: other Wound: other Drains: other Cardiovascular: RSR Respiratory: decreased breath sounds Abdomen: soft, present bowel sounds, non-distended Extremities: no tenderness, no cyanosis Laboratory Tests Test 04/14/19 11:25 04/15/19 05:37 04/15/19 08:58 Urine Color Pale yellow Urine Appearance Clear Urine pH 5 (4.5-8.0) Urine Specific [place] 1.015 (1.005-1.035) Urine Protein 2+ (NEGATIVE) H Urine Glucose (UA) Negative (NEGATIVE) Urine Ketones Negative (NEGATIVE) Urine Blood 5+ (NEGATIVE) H Urine Nitrite Negative (NEGATIVE) Urine Bilirubin Negative (NEGATIVE) Urine Urobilinogen Normal MG/DL (0.0-1.0) Urine Leukocyte Esterase 3+ (NEGATIVE) H Urine RBC 2-4 /HPF (0 - 0) H Urine WBC 10-15 /HPF (0 - 0) H Urine Squamous Epithelial Cells None /LPF (NONE/OCC) Urine Bacteria Few /HPF (NONE) White Blood Count 9.1 K/UL (4.8-10.8) Red Blood Count 3.07 M/UL (4.70-6.10) L Hemoglobin 9.0 G/DL (14.2-18.0) L Hematocrit 25.7 % (42.0-52.0) L Mean Corpuscular Volume 84 FL (80-99) Mean Corpuscular Hemoglobin 29.3 PG (27.0-31.0) Mean Corpuscular Hemoglobin Concent 34.9 G/DL (32.0-36.0) Red Cell Distribution Width 15.8 % (11.6-14.8) H Platelet Count 139 K/UL (150-450) L Mean Platelet Volume 5.1 FL (6.5-10.1) L Neutrophils (%) (Auto) % (45.0-75.0) Lymphocytes (%) (Auto) % (20.0-45.0) Monocytes (%) (Auto) % (1.0-10.0) Eosinophils (%) (Auto) % (0.0-3.0) Basophils (%) (Auto) % (0.0-2.0) Differential Total Cells Counted 100 Neutrophils % (Manual) 82 % (45-75) H Lymphocytes % (Manual) 12 % (20-45) L Monocytes % (Manual) 4 % (1-10) Eosinophils % (Manual) 2 % (0-3) Basophils % (Manual) 0 % (0-2) Band Neutrophils 0 % (0-8) Platelet Estimate Decreased L Platelet Morphology Normal Anisocytosis 1+ Sodium Level 147 MMOL/L (136-145) H Potassium Level 3.3 MMOL/L (3.5-5.1) L Chloride Level 111 MMOL/L (98-107) H Carbon Dioxide Level 29 MMOL/L (21-32) Anion Gap 7 mmol/L (5-15) Blood Urea Nitrogen 17 mg/dL (7-18) Creatinine 1.4 MG/DL (0.55-1.30) H Estimat Glomerular Filtration Rate > 60 mL/min (>60) Glucose Level 88 MG/DL (74-106) Calcium Level 11.6 MG/DL (8.5-10.1) H Arterial Blood pH 7.299 (7.350-7.450) Arterial Blood Partial Pressure CO2 53.7 mmHg (35.0-45.0) H Arterial Blood Partial Pressure O2 95.7 mmHg (75.0-100.0) Arterial Blood HCO3 25.8 mmol/L (22.0-26.0) Arterial Blood Oxygen Saturation 96.1 % (95-100) Arterial Blood Base Excess -1.0 (-2-2) Antonio Test Positive Plan Problems: (1) Cardiac arrest Assessment & Plan: Acute deterioration Cardiovascular lopez ACLS required for resuscitation Still full code Hypotensive intensive care unit requiring a new central venous catheter see note Antibiotics as per infectious caries Hold tube feeds Vent management cont current treatment improving wean vent possible extubate soon trend labs resume tube feeds will follow with fermin thank you (2) Stage III adenocarcinoma of prostate Assessment & Plan: patient with state 3 prostate cancer pending treatment at [facility] unlikely related to acute cardiac arrest this am abd exam with mild distention pending KUB no acute surgical intervention planned onc input thank you will follow with Jay Conrad Apr 15, 2019 10:02
--- NOTE | 2019-04-15 11:00 | NUR ---
NURSE NOTES: LATE ENTRY: MD NOLAND HERE TO SE PT. INFORMED REPLACING K 3.3 W/ 40KCL. NO ORDER FOR CA 11.6, TRENDING DOWN.
--- NOTE | 2019-04-15 11:13 | Cardiac Electrophysiology PN ---
Assessment/Plan Assessment/Plan 1. Status post noninfarctional 2 separate juan antonio arrest with asystole. Both episodes happened in the setting of respiratory failure No evidence of ventricular tachycardia or ventricular fibrillation. Off any GARCÍA or AVN blockerEF 65%. All 3 troponins were less than 0.1 2. Respiratory failure, extubated 04/08/19 and reintubated 04/13/19 3. History of stage III prostate cancer, followed by Dr. Monroy and Dr Root. Morales was changed. Follows up usually at [facility] 4. Shock. Off Levophed now on iv Abx. 5. Hypercalcemia due to prostate cancer. 6. Hypernatremia. On IV fluids D5w at 50 cc/hr. 7. Anemia, s/p PRBC 04/08/[address] Mathews Subjective Subjective Intubated in ICU on the Vent and off Levophed since 2 am. No juan antonio while on the Vent Objective Last 24 Hour Vital Signs Date Time Temp Pulse Resp B/P (MAP) Pulse Ox O2 Delivery O2 Flow Rate FiO2 04/15/19 09:10 112 16 50 04/15/19 08:50 130/72 04/15/19 08:00 115 22 112/69 (83) 100 04/15/19 07:05 99 04/15/19 07:05 118 18 Mechanical Ventilator 40 50 04/15/19 07:00 98.8 108 21 117/65 (82) 100 04/15/19 06:00 108 22 99/68 (78) 100 04/15/19 05:43 110 14 50 04/15/19 05:00 101 22 119/72 (88) 100 04/15/19 04:00 50 04/15/19 04:00 97.8 98 20 97/64 (75) 100 04/15/19 04:00 Mechanical Ventilator Mechanical Ventilator 04/15/19 04:00 98 04/15/19 03:33 109 14 50 04/15/19 03:30 96 20 97/64 (75) 100 04/15/19 03:00 99 17 96/57 (70) 100 04/15/19 02:30 93 14 88/59 (69) 100 04/15/19 02:00 115/62 04/15/19 02:00 89 14 84/61 (69) 98 2/12/20 01:41 98 14 100 Mechanical Ventilator 50 99 14 50 04/15/19 01:30 99 21 110/68 (82) 99 04/15/19 01:00 97 22 101/63 (76) 96 04/15/19 01:00 110/68 04/15/19 00:30 95 23 96/63 (74) 04/15/19 00:00 50 04/15/19 00:00 97 04/15/19 00:00 Mechanical Ventilator Mechanical Ventilator 04/15/19 00:00 96/63 04/15/19 00:00 97.9 99 23 112/66 (81) 94 04/14/19 23:30 97 22 122/78 (93) 100 04/14/19 23:15 98 16 50 04/14/19 23:00 93 18 113/71 (85) 100 04/14/19 23:00 122/78 04/14/19 22:57 110/65 04/14/19 22:30 93 21 110/65 (80) 04/14/19 22:00 94 15 116/76 (89) 100 04/14/19 22:00 110/65 04/14/19 21:30 109 23 125/69 (87) 100 04/14/19 21:08 98 14 50 04/14/19 21:00 127/70 04/14/19 21:00 99/60 04/14/19 21:00 101 8 127/70 (89) 100 04/14/19 20:45 92 15 117/68 (84) 100 04/14/19 20:30 92 14 119/70 (86) 04/14/19 20:00 50 04/14/19 20:00 99.8 94 16 119/75 (90) 97 04/14/19 20:00 Mechanical Ventilator Mechanical Ventilator 04/14/19 20:00 94 04/14/19 20:00 119/75 04/14/19 19:30 92 18 137/85 (102) 99 04/14/19 19:18 97 15 100 Mechanical Ventilator 50 99 14 50 04/14/19 19:00 104 24 157/89 (111) 92 04/14/19 19:00 157/89 04/14/19 18:15 99 23 158/97 (117) 99 04/14/19 18:00 149/87 04/14/19 18:00 107 26 149/87 (107) 100 04/14/19 17:00 101 25 114/78 (90) 100 04/14/19 17:00 114/78 04/14/19 16:38 98 15 50 04/14/19 16:00 Mechanical Ventilator Mechanical Ventilator 04/14/19 16:00 107 04/14/19 16:00 135/76 04/14/19 16:00 50 04/14/19 16:00 100.5 103 18 135/76 (95) 100 04/14/19 15:00 136/76 04/14/19 15:00 102 16 136/76 (96) 100 04/14/19 15:00 100 22 50 04/14/19 14:56 112/68 04/14/19 14:00 96 14 147/73 (97) 100 04/14/19 14:00 147/73 04/14/19 13:16 100 14 100 Mechanical Ventilator 50.0 50 100 14 60 04/14/19 13:00 96 14 116/71 (86) 100 04/14/19 13:00 116/71 04/14/19 12:05 50 04/14/19 12:00 100.3 94 14 117/71 (86) 100 04/14/19 12:00 Mechanical Ventilator Mechanical Ventilator 04/14/19 12:00 117/71 04/14/19 12:00 94 04/14/19 11:30 97 14 101/65 (77) 100 Intake and Output 04/14/19 04/15/19 19:00 07:00 Intake Total 1830.53 ml 706.25 ml Output Total 560 ml 620 ml Balance 1270.53 ml 86.25 ml IV Total 1830.53 ml 706.25 ml Output Urine Total 560 ml 620 ml Stool Total 0 ml Laboratory Tests Test 04/14/19 11:25 04/15/19 05:37 04/15/19 08:58 Urine Color Pale yellow Urine Appearance Clear Urine pH 5 (4.5-8.0) Urine Specific [place] 1.015 (1.005-1.035) Urine Protein 2+ (NEGATIVE) H Urine Glucose (UA) Negative (NEGATIVE) Urine Ketones Negative (NEGATIVE) Urine Blood 5+ (NEGATIVE) H Urine Nitrite Negative (NEGATIVE) Urine Bilirubin Negative (NEGATIVE) Urine Urobilinogen Normal MG/DL (0.0-1.0) Urine Leukocyte Esterase 3+ (NEGATIVE) H Urine RBC 2-4 /HPF (0 - 0) H Urine WBC 10-15 /HPF (0 - 0) H Urine Squamous Epithelial Cells None /LPF (NONE/OCC) Urine Bacteria Few /HPF (NONE) White Blood Count 9.1 K/UL (4.8-10.8) Red Blood Count 3.07 M/UL (4.70-6.10) L Hemoglobin 9.0 G/DL (14.2-18.0) L Hematocrit 25.7 % (42.0-52.0) L Mean Corpuscular Volume 84 FL (80-99) Mean Corpuscular Hemoglobin 29.3 PG (27.0-31.0) Mean Corpuscular Hemoglobin Concent 34.9 G/DL (32.0-36.0) Red Cell Distribution Width 15.8 % (11.6-14.8) H Platelet Count 139 K/UL (150-450) L Mean Platelet Volume 5.1 FL (6.5-10.1) L Neutrophils (%) (Auto) % (45.0-75.0) Lymphocytes (%) (Auto) % (20.0-45.0) Monocytes (%) (Auto) % (1.0-10.0) Eosinophils (%) (Auto) % (0.0-3.0) Basophils (%) (Auto) % (0.0-2.0) Differential Total Cells Counted 100 Neutrophils % (Manual) 82 % (45-75) H Lymphocytes % (Manual) 12 % (20-45) L Monocytes % (Manual) 4 % (1-10) Eosinophils % (Manual) 2 % (0-3) Basophils % (Manual) 0 % (0-2) Band Neutrophils 0 % (0-8) Platelet Estimate Decreased L Platelet Morphology Normal Anisocytosis 1+ Sodium Level 147 MMOL/L (136-145) H Potassium Level 3.3 MMOL/L (3.5-5.1) L Chloride Level 111 MMOL/L (98-107) H Carbon Dioxide Level 29 MMOL/L (21-32) Anion Gap 7 mmol/L (5-15) Blood Urea Nitrogen 17 mg/dL (7-18) Creatinine 1.4 MG/DL (0.55-1.30) H Estimat Glomerular Filtration Rate > 60 mL/min (>60) Glucose Level 88 MG/DL (74-106) Calcium Level 11.6 MG/DL (8.5-10.1) H Arterial Blood pH 7.299 (7.350-7.450) Arterial Blood Partial Pressure CO2 53.7 mmHg (35.0-45.0) H Arterial Blood Partial Pressure O2 95.7 mmHg (75.0-100.0) Arterial Blood HCO3 25.8 mmol/L (22.0-26.0) Arterial Blood Oxygen Saturation 96.1 % (95-100) Arterial Blood Base Excess -1.0 (-2-2) Antonio Test Positive Microbiology Date/Time Source Procedure Growth Status 04/14/19 11:25 Urine,Random Urine Culture - Preliminary NO GROWTH Resulted Objective HEENT: No JVD. Orally intubated LUNGS: Coarse rhonchi. CARDIOVASCULAR: Regular S1 and S2 and tachycardic. ABDOMEN: Soft and nondistended. EXTREMITIES: No pitting edema. Nain Cortez MD Apr 15, 2019 11:13
--- NOTE | 2019-04-15 11:29 | Hematology/Onc Progress Note ---
Assessment/Plan Assessment/Plan # Prostate cancer stage IV with psa >700, cr is worse, hydronephrosis noted, seen by renal, Dr. White. --> i did received records from [facility] [place]. has regional lymphadenopathy, s/p transrectal biopsy with Gleasons 5+5 (2010) in all cores, apparently has had a 3 year course of androgen deprivation from 2011- 2014.also status post RADIATION to the prostate, then lost to followup. Following surviellance psa 0.45-->65, in 10/2016, and up to 127 in 12/2016, Ct scan showed recurrence of disease with lad but no bony mets, started on lupron 01/2017, psa fell yo 73-->46, has been sarted on zytiga + prednisone, and now psa progression on zytiga, he started xtandi in 01/2019 Psa 87. He did not go through urethral stenting, he has deferred treatment with chemo. --> He is a very poor historian, I have talked to the sister --> imaging has been noted --> as per urology recs, reviewed --> have called , no answer, trans to [facility]? --> poor prognosis given above history of treatment, defer transfer to [facility] --> psa 737-->757 --> CT ABD 04/10: Evidence of advanced metastatic neoplasm likely secondary to prostate carcinoma. Extensive retroperitoneal and pelvic lymphadenopathy complicated by presence of bilateral hydroureteronephrosis. Extensive metastatic disease involving the bones also noted. Status post seed implant radiation therapy to the prostate gland. # Hypercalcemia -- now acutely worse --> trend Ca++ 8.1-->13-->12-->10.3-->10.7-->13.2 -->11 --> ivf has been started --> as per nephrology --> calcitonin was given # Anemia due to underlying malignancy --> hgb trend as needed 9.2-->7-->10.9-->11-->9.7 --> no hemolysis is noted --> no bleeding # Episode of generalized weakness --> on ivf --> pt as needed # Hypokalemia --> replete prn # Dehydration --> on ivf # Atrophic changes without evident intracranial hemorrhage. --> as per neuro, remains confused # Respiratory failure s/p vent --> s/p vent intubated on 04/06 --> 04/08 was extubated # Hypernatremia as well as low BUN. --> on ivf # Poor prognosis # Dvt ppx lovenox sq Appreciate consultation and dW Rn Subjective Constitutional: Denies: no symptoms, chills, fever, malaise, weakness, other HEENT: Denies: no symptoms, eye pain, blurred vision, tearing, double vision, ear pain, ear discharge, nose pain, nose congestion, throat pain, throat swelling, mouth pain, mouth swelling, other Cardiovascular: Denies: no symptoms, chest pain, edema, irregular heart rate, lightheadedness, palpitations, syncope, other Respiratory: Denies: no symptoms, cough, shortness of breath, SOB with excertion, SOB at rest, sputum, wheezing, other Genitourinary: Denies: no symptoms, burning, discharge, frequency, flank pain, hematuria, incontinence, pain, urgency, other Neurologic/Psychiatric: Denies: no symptoms, anxiety, depressed, emotional problems, headache, numbness, paresthesia, pre-existing deficit, seizure, tingling, tremors, weakness, other Endocrine: Denies: no symptoms, excessive sweating, flushing, intolerance to cold, intolerance to heat, increased hunger, increased thirst, increased urine, unexplained weight gain, unexplained weight loss, other Hematologic/Lymphatic: Denies: no symptoms, anemia, easy bleeding, easy bruising, adenopathy, other Allergies: Coded Allergies: No Known Allergies (Unverified , 04/03/19) Subjective 04/06: no events, apparently intubated today and transferred to the icu, will dw family 04/07: remains in the icu, critically ill, Ca++ 12, on vent, minimally responsive , on dopa, dw pcp and pulm 04/08: no major changes, no night sweats, labs have been reviewed, dw daughter, he is more alert 04/10: awake, no acute events ct abd reviewed, stool ob negative 04/12: labs reviewed, nc, tachy, ceftriaxone, no sob 04/13: lethargic, nc 3l, no acute distress, labs reviewed 04/14: Ca++ remains elev 13.2, De Amy aware, on calcitonin, on lovenox 2/12: no major changes, remains intubated, seen by cards, renal, pulm, dw Kellie, kcl ordered Objective Objective Current Medications Medications (Trade) Dose Ordered Sig/[place] Route PRN Reason Start Time Stop Time Status Last Admin Dose Admin Albuterol/ Ipratropium (Albuterol/ Ipratropium) 3 ml Q6HRT HHN 04/13/19 19:00 04/15/19 12:59 04/15/19 01:41 Calcitonin [place] (Miacalcin) 1 sprays DAILY NASAL 04/14/19 09:00 05/10/19 13:29 04/15/19 11:08 Cefepime HCl 1 gm/ Dextrose 55 ml @ 110 mls/hr DAILY IVPB 04/16/19 09:00 04/21/19 08:59 Chlorhexidine Gluconate (Martha-Hex 2%) 1 applic DAILY@2000 TOPIC 04/13/19 20:00 05/06/19 19:59 04/14/19 20:12 Dextrose 1,000 ml @ 50 mls/hr Q20H IV 04/13/19 14:45 05/12/19 13:14 04/15/19 04:25 Enoxaparin Sodium (Lovenox) 30 mg DAILY SUBQ 04/14/19 09:00 05/04/19 08:59 04/14/19 09:04 Hydralazine HCl (Apresoline) 10 mg Q12HR NG 04/13/19 21:00 05/10/19 17:59 04/15/19 08:50 Hydralazine HCl (Apresoline) 10 mg Q4H PRN IV SBP > 170mmHg 04/13/19 15:00 05/08/19 14:59 Lansoprazole (Prevacid) 30 mg DAILY ORAL 04/14/19 09:00 05/13/19 08:59 04/15/19 08:35 Memantine (Namenda) 5 mg BID ORAL 04/13/19 18:00 05/04/19 17:59 04/15/19 08:36 Morphine Sulfate (Morphine Sulfate) 1 mg Q4H PRN IVP PAIN 4-10 04/13/19 18:00 04/20/19 17:59 04/14/19 05:43 Norepinephrine Bitartrate 4 mg/ Dextrose 250 ml @ 0 mls/hr Q24H IV 04/13/19 17:00 05/13/19 16:59 04/14/19 22:57 Potassium Chloride 100 ml @ 50 mls/hr ONCE ONCE IVPB 04/15/19 10:30 04/15/19 12:29 04/15/19 11:09 Tamsulosin HCl (Flomax) 0.4 mg BEDTIME ORAL 04/13/19 21:00 05/13/19 20:59 04/14/19 21:30 Vancomycin HCl (Vanco rx to dose) 1 ea DAILY PRN MISC Per rx protocol 04/14/19 11:15 05/14/19 11:14 Vancomycin/Sodium Chloride 275 ml @ 183.333 mls/hr Q24H IVPB 04/14/19 14:00 04/19/19 13:59 04/14/19 14:32 Last 24 Hour Vital Signs Date Time Temp Pulse Resp B/P (MAP) Pulse Ox O2 Delivery O2 Flow Rate FiO2 04/15/19 09:10 112 16 50 04/15/19 08:50 130/72 04/15/19 08:00 115 22 112/69 (83) 100 04/15/19 07:05 99 04/15/19 07:05 118 18 Mechanical Ventilator 40 50 04/15/19 07:00 98.8 108 21 117/65 (82) 100 04/15/19 06:00 108 22 99/68 (78) 100 04/15/19 05:43 110 14 50 04/15/19 05:00 101 22 119/72 (88) 100 04/15/19 04:00 50 04/15/19 04:00 97.8 98 20 97/64 (75) 100 04/15/19 04:00 Mechanical Ventilator Mechanical Ventilator 04/15/19 04:00 98 04/15/19 03:33 109 14 50 04/15/19 03:30 96 20 97/64 (75) 100 04/15/19 03:00 99 17 96/57 (70) 100 04/15/19 02:30 93 14 88/59 (69) 100 04/15/19 02:00 115/62 04/15/19 02:00 89 14 84/61 (69) 98 04/15/19 01:41 98 14 100 Mechanical Ventilator 50 99 14 50 04/15/19 01:30 99 21 110/68 (82) 99 04/15/19 01:00 97 22 101/63 (76) 96 04/15/19 01:00 110/68 04/15/19 00:30 95 23 96/63 (74) 04/15/19 00:00 50 04/15/19 00:00 97 04/15/19 00:00 Mechanical Ventilator Mechanical Ventilator 04/15/19 00:00 96/63 04/15/19 00:00 97.9 99 23 112/66 (81) 94 04/14/19 23:30 97 22 122/78 (93) 100 04/14/19 23:15 98 16 50 04/14/19 23:00 93 18 113/71 (85) 100 04/14/19 23:00 122/78 04/14/19 22:57 110/65 04/14/19 22:30 93 21 110/65 (80) 04/14/19 22:00 94 15 116/76 (89) 100 04/14/19 22:00 110/65 04/14/19 21:30 109 23 125/69 (87) 100 04/14/19 21:08 98 14 50 04/14/19 21:00 127/70 04/14/19 21:00 99/60 04/14/19 21:00 101 8 127/70 (89) 100 04/14/19 20:45 92 15 117/68 (84) 100 04/14/19 20:30 92 14 119/70 (86) 04/14/19 20:00 50 04/14/19 20:00 99.8 94 16 119/75 (90) 97 04/14/19 20:00 Mechanical Ventilator Mechanical Ventilator 04/14/19 20:00 94 04/14/19 20:00 119/75 04/14/19 19:30 92 18 137/85 (102) 99 04/14/19 19:18 97 15 100 Mechanical Ventilator 50 99 14 50 04/14/19 19:00 104 24 157/89 (111) 92 04/14/19 19:00 157/89 04/14/19 18:15 99 23 158/97 (117) 99 04/14/19 18:00 149/87 04/14/19 18:00 107 26 149/87 (107) 100 04/14/19 17:00 101 25 114/78 (90) 100 04/14/19 17:00 114/78 04/14/19 16:38 98 15 50 04/14/19 16:00 Mechanical Ventilator Mechanical Ventilator 04/14/19 16:00 107 04/14/19 16:00 135/76 04/14/19 16:00 50 04/14/19 16:00 100.5 103 18 135/76 (95) 100 04/14/19 15:00 136/76 04/14/19 15:00 102 16 136/76 (96) 100 04/14/19 15:00 100 22 50 04/14/19 14:56 112/68 04/14/19 14:00 96 14 147/73 (97) 100 04/14/19 14:00 147/73 04/14/19 13:16 100 14 100 Mechanical Ventilator 50.0 50 100 14 60 04/14/19 13:00 96 14 116/71 (86) 100 04/14/19 13:00 116/71 04/14/19 12:05 50 04/14/19 12:00 100.3 94 14 117/71 (86) 100 04/14/19 12:00 Mechanical Ventilator Mechanical Ventilator 04/14/19 12:00 117/71 04/14/19 12:00 94 04/14/19 11:30 97 14 101/65 (77) 100 04/14/19 11:00 97 14 50 04/14/19 11:00 101/65 04/14/19 11:00 91 14 114/74 (87) 100 04/14/19 10:00 103 21 113/73 (86) 100 04/14/19 10:00 124/76 04/14/19 09:30 106 34 119/75 (90) 100 04/14/19 09:15 106 14 50 04/14/19 09:00 117/69 04/14/19 09:00 94 19 99/66 (77) 100 04/14/19 08:59 104/65 04/14/19 08:55 104/65 04/14/19 08:02 113 04/14/19 08:00 50 04/14/19 08:00 Mechanical Ventilator Mechanical Ventilator 04/14/19 08:00 135/72 04/14/19 08:00 100.5 133 19 135/72 (93) 100 04/14/19 07:00 109 14 100 Mechanical Ventilator 50.0 50 112 16 60 04/14/19 07:00 125 16 107/69 (82) 100 04/14/19 07:00 100 Mechanical Ventilator 50.0 60 04/14/19 07:00 107/69 04/14/19 06:30 114 13 100/67 (78) 100 04/14/19 06:00 130 17 127/76 (93) 100 04/14/19 06:00 127/76 04/14/19 05:30 102 12 121/68 (85) 100 04/14/19 05:25 99 14 50 04/14/19 05:00 105/71 04/14/19 05:00 101 22 105/71 (82) 100 04/14/19 04:31 103/67 04/14/19 04:30 101 27 103/67 (79) 100 04/14/19 04:30 103/67 04/14/19 04:00 Mechanical Ventilator Mechanical Ventilator 04/14/19 04:00 102/71 04/14/19 04:00 104 04/14/19 04:00 98.0 104 28 102/71 (81) 100 04/14/19 04:00 50 04/14/19 03:30 106 11 102/66 (78) 100 04/14/19 03:15 111 27 104/71 (82) 100 04/14/19 03:00 104/71 04/14/19 03:00 100 17 121/81 (94) 100 04/14/19 02:50 101 14 50 04/14/19 02:45 105 20 115/78 (90) 100 04/14/19 02:30 100 15 114/72 (86) 100 04/14/19 02:15 101 17 112/71 (85) 100 04/14/19 02:00 116/81 04/14/19 02:00 103 20 116/81 (93) 100 04/14/19 01:45 105 18 115/69 (84) 100 04/14/19 01:30 102 21 106/71 (83) 100 04/14/19 01:27 102 14 100 Mechanical Ventilator 80 101 14 80 04/14/19 01:15 104 25 119/82 (94) 100 04/14/19 01:00 99 28 119/74 (89) 100 04/14/19 01:00 119/74 04/14/19 00:45 88 14 113/73 (86) 100 04/14/19 00:30 88 14 114/73 (87) 100 04/14/19 00:15 89 14 113/76 (88) 100 04/14/19 00:06 93 14 87/62 (70) 100 04/14/19 00:04 55/38 04/14/19 00:04 94 14 71/53 (59) 100 04/14/19 00:00 Mechanical Ventilator Mechanical Ventilator 04/14/19 00:00 93 04/14/19 00:00 94 14 55/38 (44) 100 04/13/19 23:34 110 14 50 04/13/19 23:30 91 14 107/65 (79) 100 04/13/19 23:00 113/69 04/13/19 23:00 91 15 113/69 (84) 100 04/13/19 22:30 94 14 116/60 (78) 100 04/13/19 22:00 99 16 109/67 (81) 100 04/13/19 22:00 109/67 04/13/19 21:30 97 8 107/69 (82) 100 04/13/19 21:15 Mechanical Ventilator Mechanical Ventilator 04/13/19 21:00 95 8 108/70 (83) 100 04/13/19 21:00 108/70 04/13/19 21:00 108/70 04/13/19 20:30 94 14 104/73 (83) 100 04/13/19 20:00 98.4 89 16 116/70 (85) 100 04/13/19 20:00 Mechanical Ventilator Mechanical Ventilator 04/13/19 20:00 92 04/13/19 20:00 116/70 04/13/19 20:00 50 04/13/19 19:50 96 14 100 Nasal Cannula 3.0 32 94 14 100 04/13/19 19:50 100 Mechanical Ventilator 50 04/13/19 19:50 114 14 50 04/13/19 19:45 90 14 101/77 (85) 100 04/13/19 19:30 89 14 103/75 (84) 100 04/13/19 19:15 90 14 92/66 (75) 99 04/13/19 19:00 94 14 91/64 (73) 99 04/13/19 19:00 97/63 04/13/19 18:59 94 15 97/63 (74) 98 04/13/19 18:45 102 14 77/51 (60) 100 04/13/19 18:30 114 14 80/57 (65) 100 04/13/19 18:15 122 15 93/59 (70) 95 04/13/19 18:00 93/59 04/13/19 18:00 98.4 107 15 144/85 (104) 93 04/13/19 17:45 124 19 146/87 (106) 92 04/13/19 17:30 98 20 88/65 (73) 91 04/13/19 17:20 118 14 50 04/13/19 17:15 91 26 136/92 (107) 100 04/13/19 17:01 74/56 04/13/19 17:00 104 19 96/71 (79) 100 04/13/19 16:45 106 22 74/56 (62) 97 04/13/19 16:30 111 18 89/68 (75) 100 04/13/19 16:15 105 25 88/70 (76) 100 04/13/19 16:12 103 04/13/19 16:00 50 04/13/19 16:00 Mechanical Ventilator Mechanical Ventilator 04/13/19 16:00 97.0 104 20 88/70 (76) 98 04/13/19 15:39 50 04/13/19 14:36 114 16 100 Mechanical Ventilator 50.0 100 04/13/19 14:30 Mechanical Ventilator Mechanical Ventilator 04/13/19 14:30 116 16 100 04/13/19 12:00 110 04/13/19 12:00 98.7 104 22 137/90 (106) 98 04/13/19 12:00 Nasal Cannula 3.0 Nasal Cannula 3.0 Intake and Output 04/14/19 04/15/19 19:00 07:00 Intake Total 1830.53 ml 706.25 ml Output Total 560 ml 620 ml Balance 1270.53 ml 86.25 ml IV Total 1830.53 ml 706.25 ml Output Urine Total 560 ml 620 ml Stool Total 0 ml Labs Test 04/13/19 03:50 04/13/19 15:21 04/13/19 18:45 04/14/19 06:05 White Blood Count 7.5 K/UL (4.8-10.8) 11.6 K/UL (4.8-10.8) 11.7 K/UL (4.8-10.8) Red Blood Count 3.85 M/UL (4.70-6.10) 3.55 M/UL (4.70-6.10) 3.34 M/UL (4.70-6.10) Hemoglobin 11.1 G/DL (14.2-18.0) 9.7 G/DL (14.2-18.0) 9.6 G/DL (14.2-18.0) Hematocrit 33.0 % (42.0-52.0) 32.5 % (42.0-52.0) 28.7 % (42.0-52.0) Mean Corpuscular Volume 86 FL (80-99) 92 FL (80-99) 86 FL (80-99) Mean Corpuscular Hemoglobin 28.8 PG (27.0-31.0) 27.3 PG (27.0-31.0) 28.8 PG (27.0-31.0) Mean Corpuscular Hemoglobin Concent 33.5 G/DL (32.0-36.0) 29.8 G/DL (32.0-36.0) 33.5 G/DL (32.0-36.0) Red Cell Distribution Width 15.7 % (11.6-14.8) 17.5 % (11.6-14.8) 16.1 % (11.6-14.8) Platelet Count 141 K/UL (150-450) 196 K/UL (150-450) 181 K/UL (150-450) Mean Platelet Volume 4.9 FL (6.5-10.1) 6.1 FL (6.5-10.1) 5.0 FL (6.5-10.1) Neutrophils (%) (Auto) 77.8 % (45.0-75.0) 84.3 % (45.0-75.0) 80.0 % (45.0-75.0) Lymphocytes (%) (Auto) 11.4 % (20.0-45.0) 8.2 % (20.0-45.0) 12.5 % (20.0-45.0) Monocytes (%) (Auto) 6.0 % (1.0-10.0) 4.0 % (1.0-10.0) 4.2 % (1.0-10.0) Eosinophils (%) (Auto) 4.0 % (0.0-3.0) 2.6 % (0.0-3.0) 2.9 % (0.0-3.0) Basophils (%) (Auto) 0.7 % (0.0-2.0) 0.9 % (0.0-2.0) 0.4 % (0.0-2.0) Sodium Level 156 MMOL/L (136-145) 151 MMOL/L (136-145) Potassium Level 4.2 MMOL/L (3.5-5.1) 3.3 MMOL/L (3.5-5.1) Chloride Level 119 MMOL/L (98-107) 117 MMOL/L (98-107) Carbon Dioxide Level 33 MMOL/L (21-32) 28 MMOL/L (21-32) Anion Gap 4 mmol/L (5-15) 6 mmol/L (5-15) Blood Urea Nitrogen 20 mg/dL (7-18) 19 mg/dL (7-18) Creatinine 1.2 MG/DL (0.55-1.30) 1.4 MG/DL (0.55-1.30) Estimat Glomerular Filtration Rate mL/min (>60) mL/min (>60) Glucose Level 104 MG/DL (74-106) 120 MG/DL (74-106) Calcium Level 13.2 MG/DL (8.5-10.1) 12.3 MG/DL (8.5-10.1) Arterial Blood pH 7.302 (7.350-7.450) Arterial Blood Partial Pressure CO2 58.4 mmHg (35.0-45.0) Arterial Blood Partial Pressure O2 459.8 mmHg (75.0-100.0) Arterial Blood HCO3 28.2 mmol/L (22.0-26.0) Arterial Blood Oxygen Saturation 99.0 % (95-100) Arterial Blood Base Excess 1.1 (-2-2) Antonio Test Positive Troponin I 0.040 ng/mL (0.000-0.056) 0.131 ng/mL (0.000-0.056) Test 04/14/19 09:24 04/14/19 11:25 04/15/19 05:37 04/15/19 08:58 Arterial Blood pH 7.357 (7.350-7.450) 7.299 (7.350-7.450) Arterial Blood Partial Pressure CO2 47.8 mmHg (35.0-45.0) 53.7 mmHg (35.0-45.0) Arterial Blood Partial Pressure O2 74.8 mmHg (75.0-100.0) 95.7 mmHg (75.0-100.0) Arterial Blood HCO3 26.2 mmol/L (22.0-26.0) 25.8 mmol/L (22.0-26.0) Arterial Blood Oxygen Saturation 93.8 % (95-100) 96.1 % (95-100) Arterial Blood Base Excess 0.4 (-2-2) -1.0 (-2-2) Antonio Test Positive Positive Urine Color Pale yellow Urine Appearance Clear Urine pH 5 (4.5-8.0) Urine Specific [place] 1.015 (1.005-1.035) Urine Protein 2+ (NEGATIVE) Urine Glucose (UA) Negative (NEGATIVE) Urine Ketones Negative (NEGATIVE) Urine Blood 5+ (NEGATIVE) Urine Nitrite Negative (NEGATIVE) Urine Bilirubin Negative (NEGATIVE) Urine Urobilinogen Normal MG/DL (0.0-1.0) Urine Leukocyte Esterase 3+ (NEGATIVE) Urine RBC 2-4 /HPF (0 - 0) Urine WBC 10-15 /HPF (0 - 0) Urine Squamous Epithelial Cells None /LPF (NONE/OCC) Urine Bacteria Few /HPF (NONE) White Blood Count 9.1 K/UL (4.8-10.8) Red Blood Count 3.07 M/UL (4.70-6.10) Hemoglobin 9.0 G/DL (14.2-18.0) Hematocrit 25.7 % (42.0-52.0) Mean Corpuscular Volume 84 FL (80-99) Mean Corpuscular Hemoglobin 29.3 PG (27.0-31.0) Mean Corpuscular Hemoglobin Concent 34.9 G/DL (32.0-36.0) Red Cell Distribution Width 15.8 % (11.6-14.8) Platelet Count 139 K/UL (150-450) Mean Platelet Volume 5.1 FL (6.5-10.1) Neutrophils (%) (Auto) % (45.0-75.0) Lymphocytes (%) (Auto) % (20.0-45.0) Monocytes (%) (Auto) % (1.0-10.0) Eosinophils (%) (Auto) % (0.0-3.0) Basophils (%) (Auto) % (0.0-2.0) Differential Total Cells Counted 100 Neutrophils % (Manual) 82 % (45-75) Lymphocytes % (Manual) 12 % (20-45) Monocytes % (Manual) 4 % (1-10) Eosinophils % (Manual) 2 % (0-3) Basophils % (Manual) 0 % (0-2) Band Neutrophils 0 % (0-8) Platelet Estimate Decreased Platelet Morphology Normal Anisocytosis 1+ Sodium Level 147 MMOL/L (136-145) Potassium Level 3.3 MMOL/L (3.5-5.1) Chloride Level 111 MMOL/L (98-107) Carbon Dioxide Level 29 MMOL/L (21-32) Anion Gap 7 mmol/L (5-15) Blood Urea Nitrogen 17 mg/dL (7-18) Creatinine 1.4 MG/DL (0.55-1.30) Estimat Glomerular Filtration Rate > 60 mL/min (>60) Glucose Level 88 MG/DL (74-106) Calcium Level 11.6 MG/DL (8.5-10.1) Height (Feet): 5 Height (Inches): 7.00 Weight (Pounds): 141 Objective General: normal inspection, alert, Chronically Ill Respiratory: s/p vent++ Cardiovascular: regular rate, rhythm, no edema Gastrointestinal: normal inspection, normal bowel sounds Genitourinary: no CVA tenderness Mus: normal inspection, back normal, normal range of motion Neurologic: alert, motor strength/tone normal, oriented + confused Psychiatric: normal inspection, judgement/insight normal Skin: no rash Andreas Monroy MD Apr 15, 2019 11:29
[2019-04-15] MEDS ORDERED: Tubing IV Secondary IV ONE (13:46)
[2019-04-15] MEDS ORDERED: NS 275ml ONE (13:46)
--- NOTE | 2019-04-15 14:32 | General Progress Note ---
Assessment/Plan Problem List: (1) UTI (urinary tract infection) ICD Codes: N39.0 - Urinary tract infection, site not specified SNOMED: 44098698 (2) Weak ICD Codes: R53.1 - Weakness SNOMED: 12339140 (3) Anemia ICD Codes: D64.9 - Anemia, unspecified SNOMED: 462884409 (4) Dehydration ICD Codes: E86.0 - Dehydration SNOMED: 45648095, 13022039 (5) Episode of generalized weakness ICD Codes: R53.1 - Weakness SNOMED: 41273452 (6) Stage III adenocarcinoma of prostate ICD Codes: C61 - Malignant neoplasm of prostate SNOMED: 925475419, 52438970 Status: unchanged Assessment/Plan: wean vent pt diet abx iv fluid heme gi eval cbc bmp am Subjective Constitutional: Reports: weakness Allergies: Coded Allergies: No Known Allergies (Unverified , 04/03/19) All Systems: reviewed and negative except above Subjective intubated in icu Objective Last 24 Hour Vital Signs Date Time Temp Pulse Resp B/P (MAP) Pulse Ox O2 Delivery O2 Flow Rate FiO2 04/15/19 14:00 111 22 115/73 (87) 100 04/15/19 13:02 121 24 50 04/15/19 13:00 124 23 130/86 (101) 100 04/15/19 12:00 50 04/15/19 12:00 Mechanical Ventilator Mechanical Ventilator 04/15/19 12:00 99.0 97 14 109/70 (83) 100 04/15/19 12:00 97 04/15/19 11:00 100 25 99/61 (74) 100 04/15/19 10:30 116 18 50 04/15/19 10:00 102 25 99/69 (79) 100 04/15/19 09:10 112 16 50 04/15/19 09:00 104 24 99/69 (79) 100 04/15/19 08:50 130/72 04/15/19 08:00 115 22 112/69 (83) 100 04/15/19 08:00 Mechanical Ventilator Mechanical Ventilator 04/15/19 08:00 113 04/15/19 07:05 99 04/15/19 07:05 118 18 Mechanical Ventilator 40 50 04/15/19 07:00 98.8 108 21 117/65 (82) 100 04/15/19 06:00 108 22 99/68 (78) 100 04/15/19 05:43 110 14 50 04/15/19 05:00 101 22 119/72 (88) 100 04/15/19 04:00 50 04/15/19 04:00 97.8 98 20 97/64 (75) 100 04/15/19 04:00 Mechanical Ventilator Mechanical Ventilator 04/15/19 04:00 98 04/15/19 03:33 109 14 50 04/15/19 03:30 96 20 97/64 (75) 100 04/15/19 03:00 99 17 96/57 (70) 100 04/15/19 02:30 93 14 88/59 (69) 100 04/15/19 02:00 115/62 04/15/19 02:00 89 14 84/61 (69) 98 04/15/19 01:41 98 14 100 Mechanical Ventilator 50 99 14 50 04/15/19 01:30 99 21 110/68 (82) 99 04/15/19 01:00 97 22 101/63 (76) 96 04/15/19 01:00 110/68 04/15/19 00:30 95 23 96/63 (74) 04/15/19 00:00 50 04/15/19 00:00 97 04/15/19 00:00 Mechanical Ventilator Mechanical Ventilator 04/15/19 00:00 96/63 04/15/19 00:00 97.9 99 23 112/66 (81) 94 04/14/19 23:30 97 22 122/78 (93) 100 04/14/19 23:15 98 16 50 04/14/19 23:00 93 18 113/71 (85) 100 04/14/19 23:00 122/78 04/14/19 22:57 110/65 04/14/19 22:30 93 21 110/65 (80) 04/14/19 22:00 94 15 116/76 (89) 100 04/14/19 22:00 110/65 04/14/19 21:30 109 23 125/69 (87) 100 04/14/19 21:08 98 14 50 04/14/19 21:00 127/70 04/14/19 21:00 99/60 04/14/19 21:00 101 8 127/70 (89) 100 04/14/19 20:45 92 15 117/68 (84) 100 04/14/19 20:30 92 14 119/70 (86) 04/14/19 20:00 50 04/14/19 20:00 99.8 94 16 119/75 (90) 97 04/14/19 20:00 Mechanical Ventilator Mechanical Ventilator 04/14/19 20:00 94 04/14/19 20:00 119/75 04/14/19 19:30 92 18 137/85 (102) 99 04/14/19 19:18 97 15 100 Mechanical Ventilator 50 99 14 50 04/14/19 19:00 104 24 157/89 (111) 92 04/14/19 19:00 157/89 04/14/19 18:15 99 23 158/97 (117) 99 04/14/19 18:00 149/87 04/14/19 18:00 107 26 149/87 (107) 100 04/14/19 17:00 101 25 114/78 (90) 100 04/14/19 17:00 114/78 04/14/19 16:38 98 15 50 04/14/19 16:00 Mechanical Ventilator Mechanical Ventilator 04/14/19 16:00 107 04/14/19 16:00 135/76 04/14/19 16:00 50 04/14/19 16:00 100.5 103 18 135/76 (95) 100 04/14/19 15:00 136/76 04/14/19 15:00 102 16 136/76 (96) 100 04/14/19 15:00 100 22 50 04/14/19 14:56 112/68 Intake and Output 04/14/19 04/15/19 19:00 07:00 Intake Total 1830.53 ml 706.25 ml Output Total 560 ml 620 ml Balance 1270.53 ml 86.25 ml IV Total 1830.53 ml 706.25 ml Output Urine Total 560 ml 620 ml Stool Total 0 ml Laboratory Tests 04/15/19 05:37: White Blood Count 9.1, Red Blood Count 3.07L, Hemoglobin 9.0L, Hematocrit 25.7L , Mean Corpuscular Volume 84, Mean Corpuscular Hemoglobin 29.3, Mean Corpuscular Hemoglobin Concent 34.9, Red Cell Distribution Width 15.8H, Platelet Count 139L, Mean Platelet Volume 5.1L, Neutrophils (%) (Auto) , Lymphocytes (%) (Auto) , Monocytes (%) (Auto) , Eosinophils (%) (Auto) , Basophils (%) (Auto) , Differential Total Cells Counted 100, Neutrophils % ( Manual) 82H, Lymphocytes % (Manual) 12L, Monocytes % (Manual) 4, Eosinophils % ( Manual) 2, Basophils % (Manual) 0, Band Neutrophils 0, Platelet Estimate DecreasedL, Platelet Morphology Normal, Anisocytosis 1+, Sodium Level 147H, Potassium Level 3.3L, Chloride Level 111H, Carbon Dioxide Level 29, Anion Gap 7 , Blood Urea Nitrogen 17, Creatinine 1.4H, Estimat Glomerular Filtration Rate > 60, Glucose Level 88, Calcium Level 11.6H 04/15/19 08:58: Arterial Blood pH 7.299L, Arterial Blood Partial Pressure CO2 53.7H, Arterial Blood Partial Pressure O2 95.7, Arterial Blood HCO3 25.8, Arterial Blood Oxygen Saturation 96.1, Arterial Blood Base Excess -1.0, Antonio Test Positive Height (Feet): 5 Height (Inches): 7.00 Weight (Pounds): 165 General Appearance: lethargic EENT: normal ENT inspection Neck: normal alignment Cardiovascular: normal peripheral pulses, normal rate, regular rhythm Respiratory/Chest: chest wall non-tender, decreased breath sounds Abdomen: normal bowel sounds, non tender, soft Extremities: normal inspection Edema: no edema noted Arm (L), no edema noted Arm (R), no edema noted Leg (L), no edema noted Leg (R), no edema noted Pedal (L), no edema noted Pedal (R), no edema noted Generalized Neurologic: motor weakness Skin: normal pigmentation, warm/dry Sawyer Toussaint DO Apr 15, 2019 14:32
[2019-04-15] MEDS: Vancomycin 1.25gm/NS Premix IVPB SCH (14:49)
--- NOTE | 2019-04-15 16:00 | NUR ---
NURSE NOTES: LATE ENTRY: AWAKENS TO SHAKING. PT FATGUED. VS 111, 119/75, SPO2 100, RR 22. PUPILS SLUGGISH 4MM. GAG PRESENT. STRENGTH 3/5. PT INTUBATED 7.5, 24CM AT LI[P, VENT SETTINGS SIMV 8 PS 12, FIO2 50%. RHONCHI THOUGHT OUT. BILATERAL RADIAL PULSES POUNDING. ABDOMEN ROUND, BOWEL SOUNDS HYPOACTIVE. NO BM AT THIS TIME. TUBE FEEDING VITAL A.F RUNNING 10ML, GOAL 55ML/HR. NGT LT NARES. BARTON DRAINING W/ SEDIMENT, YELLOW URINE. SKIN- SEE ASSESSMENT. IV ACCESS RT HAND 18G, LT WRIST 2X 22G, RT FEMORAL TLC. D5W AT 50ML/HR. A FEBRILE. STANDARD PRECAUTIONS. CALL LIGHT IN REACH. RESTRAINTS BILATERAL. BED ALARM ON
--- NOTE | 2019-04-15 16:53 | Infectious Diseases Prog Note ---
Assessment/Plan Assessment/Plan Assessment: s/p bradycardia>cardiac arrest 04/13 VDRF 04/13 Shock, recurrent- off pressors nwo s/p asystole cardiac arrest 04/06 VDRF; s/p extubation 04/08 Low grade fever; improving Mild leukocytosis, recurrent- SP -04/14 u/a wbc 10-15, nit neg, leuk +3; ucx NTD CXR: Interim development of complete right upper lobe atelectasis. Nonspecific diffuse hazy left lung opacity, likely mild pulmonary edema. -04/07 Bcx NTD u/a wbc tnct, nit neg, leuk +; ucx neg -04/06 CXR: Interval resolution of right apical density. This suggests the diagnosis was atelectasis rather than an apical cap from blood, which was suggested as a possibility on the prior report. The right upper lobe atelectasis has resolved. Suspicion of new atelectasis at the right lung base. Sepsis UTI B/l hydroureteronephrosis -04/10 CT abd/p: Evidence of advanced metastatic neoplasm likely secondary to prostate carcinoma. Extensive retroperitoneal and pelvic lymphadenopathy complicated by presence of bilateral hydroureteronephrosis. Extensive metastatic disease involving the bones also noted. Small left pleural effusion. Right trace right pleural effusion. Right inguinal hernia containing a small amount of fluid. Alternatively this could represent part of the testis. Anasarca. -u/a wbc 20-30, nit +, leuk +3; ucx >100k E.coli (R amp, bactrim; otherwise S) Probable Aspiration pneumonitis vs PNA -04/08 CXR: Patchy perihilar disease which may be asymmetric interstitial edema or infiltrate unchanged. Interval resolution of right basal atelectasis. -/ sp cx normal sharyn(prelim) s/p recent fall LETA Hypokalemia prostate CA stage IV, mets to bone chronic indwelling guerra catheter Plan: -Cont empiric IV vancomycin and Cefepime #2 given HD decompensation and pending repeat cultuers -04/13 SP Ceftriaxone #4 - 2 Sp ZOsyn #4 -2/ SP IV Vancomycin #3 -2/ SP Ceftriaxone #4 -f/u cx -Monitor CBC/CMP, temperatures -aspiration precautions -Cards, renal, Uro, pulm f/u -f/u ucx, Bcx -ICU/ETT care -poor px- consider re-evaluation of goals of care- ?Hospice -sp cx Thank you for this consultation. Will continue to follow along with you. Discussed with RN Subjective Allergies: Coded Allergies: No Known Allergies (Unverified , 04/03/19) Subjective Tm 100.5; afebrile >24hrs off pressors now leukocytosis resolved remains intubated Objective Vital Signs Last 24 Hour Vital Signs Date Time Temp Pulse Resp B/P (MAP) Pulse Ox O2 Delivery O2 Flow Rate FiO2 04/15/19 15:49 113 22 50 04/15/19 14:00 111 22 115/73 (87) 100 04/15/19 13:02 121 24 50 04/15/19 13:00 124 23 130/86 (101) 100 04/15/19 12:00 50 04/15/19 12:00 Mechanical Ventilator Mechanical Ventilator 04/15/19 12:00 99.0 97 14 109/70 (83) 100 04/15/19 12:00 97 04/15/19 11:00 100 25 99/61 (74) 100 04/15/19 10:30 116 18 50 04/15/19 10:00 102 25 99/69 (79) 100 04/15/19 09:10 112 16 50 04/15/19 09:00 104 24 99/69 (79) 100 04/15/19 08:50 130/72 04/15/19 08:00 115 22 112/69 (83) 100 04/15/19 08:00 Mechanical Ventilator Mechanical Ventilator 04/15/19 08:00 113 04/15/19 07:05 99 04/15/19 07:05 118 18 Mechanical Ventilator 40 50 04/15/19 07:00 98.8 108 21 117/65 (82) 100 04/15/19 06:00 108 22 99/68 (78) 100 04/15/19 05:43 110 14 50 04/15/19 05:00 101 22 119/72 (88) 100 04/15/19 04:00 50 04/15/19 04:00 97.8 98 20 97/64 (75) 100 04/15/19 04:00 Mechanical Ventilator Mechanical Ventilator 04/15/19 04:00 98 04/15/19 03:33 109 14 50 04/15/19 03:30 96 20 97/64 (75) 100 04/15/19 03:00 99 17 96/57 (70) 100 04/15/19 02:30 93 14 88/59 (69) 100 04/15/19 02:00 115/62 04/15/19 02:00 89 14 84/61 (69) 98 04/15/19 01:41 98 14 100 Mechanical Ventilator 50 99 14 50 04/15/19 01:30 99 21 110/68 (82) 99 04/15/19 01:00 97 22 101/63 (76) 96 04/15/19 01:00 110/68 04/15/19 00:30 95 23 96/63 (74) 04/15/19 00:00 50 04/15/19 00:00 97 04/15/19 00:00 Mechanical Ventilator Mechanical Ventilator 04/15/19 00:00 96/63 04/15/19 00:00 97.9 99 23 112/66 (81) 94 04/14/19 23:30 97 22 122/78 (93) 100 04/14/19 23:15 98 16 50 04/14/19 23:00 93 18 113/71 (85) 100 04/14/19 23:00 122/78 04/14/19 22:57 110/65 04/14/19 22:30 93 21 110/65 (80) 04/14/19 22:00 94 15 116/76 (89) 100 04/14/19 22:00 110/65 04/14/19 21:30 109 23 125/69 (87) 100 04/14/19 21:08 98 14 50 04/14/19 21:00 127/70 04/14/19 21:00 99/60 04/14/19 21:00 101 8 127/70 (89) 100 04/14/19 20:45 92 15 117/68 (84) 100 04/14/19 20:30 92 14 119/70 (86) 04/14/19 20:00 50 04/14/19 20:00 99.8 94 16 119/75 (90) 97 04/14/19 20:00 Mechanical Ventilator Mechanical Ventilator 04/14/19 20:00 94 04/14/19 20:00 119/75 04/14/19 19:30 92 18 137/85 (102) 99 04/14/19 19:18 97 15 100 Mechanical Ventilator 50 99 14 50 04/14/19 19:00 104 24 157/89 (111) 92 04/14/19 19:00 157/89 04/14/19 18:15 99 23 158/97 (117) 99 04/14/19 18:00 149/87 04/14/19 18:00 107 26 149/87 (107) 100 04/14/19 17:00 101 25 114/78 (90) 100 04/14/19 17:00 114/78 Height (Feet): 5 Height (Inches): 7.00 Weight (Pounds): 165 Objective General Appearance: normal inspection, alert, Chronically Ill ENT: ETT in place Neck: normal inspection, full range of motion, supple, no bony tend Respiratory: normal inspection, lungs clear, no wheezing Cardiovascular # regular rate, rhythm, no edema Gastrointestinal: normal inspection, normal bowel sounds, non tender, soft, no guardinga Musculoskeletal: normal inspection, back normal, normal range of motion Skin: no rash Microbiology Date/Time Source Procedure Growth Status 04/14/19 11:25 Urine,Random Urine Culture - Preliminary NO GROWTH Resulted Laboratory Tests Test 04/15/19 05:37 04/15/19 08:58 White Blood Count 9.1 K/UL (4.8-10.8) Red Blood Count 3.07 M/UL (4.70-6.10) L Hemoglobin 9.0 G/DL (14.2-18.0) L Hematocrit 25.7 % (42.0-52.0) L Mean Corpuscular Volume 84 FL (80-99) Mean Corpuscular Hemoglobin 29.3 PG (27.0-31.0) Mean Corpuscular Hemoglobin Concent 34.9 G/DL (32.0-36.0) Red Cell Distribution Width 15.8 % (11.6-14.8) H Platelet Count 139 K/UL (150-450) L Mean Platelet Volume 5.1 FL (6.5-10.1) L Neutrophils (%) (Auto) % (45.0-75.0) Lymphocytes (%) (Auto) % (20.0-45.0) Monocytes (%) (Auto) % (1.0-10.0) Eosinophils (%) (Auto) % (0.0-3.0) Basophils (%) (Auto) % (0.0-2.0) Differential Total Cells Counted 100 Neutrophils % (Manual) 82 % (45-75) H Lymphocytes % (Manual) 12 % (20-45) L Monocytes % (Manual) 4 % (1-10) Eosinophils % (Manual) 2 % (0-3) Basophils % (Manual) 0 % (0-2) Band Neutrophils 0 % (0-8) Platelet Estimate Decreased L Platelet Morphology Normal Anisocytosis 1+ Sodium Level 147 MMOL/L (136-145) H Potassium Level 3.3 MMOL/L (3.5-5.1) L Chloride Level 111 MMOL/L (98-107) H Carbon Dioxide Level 29 MMOL/L (21-32) Anion Gap 7 mmol/L (5-15) Blood Urea Nitrogen 17 mg/dL (7-18) Creatinine 1.4 MG/DL (0.55-1.30) H Estimat Glomerular Filtration Rate > 60 mL/min (>60) Glucose Level 88 MG/DL (74-106) Calcium Level 11.6 MG/DL (8.5-10.1) H Arterial Blood pH 7.299 (7.350-7.450) Arterial Blood Partial Pressure CO2 53.7 mmHg (35.0-45.0) H Arterial Blood Partial Pressure O2 95.7 mmHg (75.0-100.0) Arterial Blood HCO3 25.8 mmol/L (22.0-26.0) Arterial Blood Oxygen Saturation 96.1 % (95-100) Arterial Blood Base Excess -1.0 (-2-2) Antonio Test Positive Current Medications Medications (Trade) Dose Ordered Sig/[place] Route PRN Reason Start Time Stop Time Status Last Admin Dose Admin Calcitonin [place] (Miacalcin) 1 sprays DAILY NASAL 04/14/19 09:00 05/10/19 13:29 04/15/19 11:08 Cefepime HCl 1 gm/ Dextrose 55 ml @ 110 mls/hr DAILY IVPB 04/16/19 09:00 04/21/19 08:59 Chlorhexidine Gluconate (Martha-Hex 2%) 1 applic DAILY@2000 TOPIC 04/13/19 20:00 05/06/19 19:59 04/14/19 20:12 Dextrose 1,000 ml @ 50 mls/hr Q20H IV 04/13/19 14:45 3/10/20 13:14 04/15/19 04:25 Enoxaparin Sodium (Lovenox) 30 mg DAILY SUBQ 04/14/19 09:00 05/04/19 08:59 04/14/19 09:04 Hydralazine HCl (Apresoline) 10 mg Q12HR NG 04/13/19 21:00 05/10/19 17:59 04/15/19 08:50 Hydralazine HCl (Apresoline) 10 mg Q4H PRN IV SBP > 170mmHg 04/13/19 15:00 05/08/19 14:59 Lansoprazole (Prevacid) 30 mg DAILY ORAL 04/14/19 09:00 05/13/19 08:59 04/15/19 08:35 Memantine (Namenda) 5 mg BID ORAL 04/13/19 18:00 05/04/19 17:59 04/15/19 08:36 Morphine Sulfate (Morphine Sulfate) 1 mg Q4H PRN IVP PAIN 4-10 04/13/19 18:00 04/20/19 17:59 04/14/19 05:43 Norepinephrine Bitartrate 4 mg/ Dextrose 250 ml @ 0 mls/hr Q24H IV 04/13/19 17:00 05/13/19 16:59 04/14/19 22:57 Tamsulosin HCl (Flomax) 0.4 mg BEDTIME ORAL 04/13/19 21:00 05/13/19 20:59 04/14/19 21:30 Vancomycin HCl (Vanco rx to dose) 1 ea DAILY PRN MISC Per rx protocol 04/14/19 11:15 05/14/19 11:14 Vancomycin/Sodium Chloride 275 ml @ 183.333 mls/hr Q24H IVPB 04/14/19 14:00 04/19/19 13:59 04/15/19 14:49 Rafia Nielson M.D. Apr 15, 2019 16:53
--- NOTE | 2019-04-15 19:30 | NUR ---
NURSE NOTES: Received pt slightly restless, orally intubated on SIMV mode bp stable afebrile. Bilateral soft wrist restraints on for safety to avoid self extubation. Tolerating fdg at this time, Vital AF 1.2 at 20ml/hr, no residuals. HOB kept elevated , On aspiration precaution. Will continue to monitor.
--- NOTE | 2019-04-15 20:00 | NUR ---
HAND-OFF: Report given to MICHAEL. Dina PT IN NO ACUTE DISTRESS.
--- NOTE | 2019-04-15 20:00 | NUR ---
NURSE NOTES: Pt has pressure sore sacral area as well as blister upper back with optifoam as well. On P 200 mattress. Turned q 2hrs prn with good skin care done.Morales to gravity with moderate amt of yellowish urine. Monitor I and O. monitor lytes. Tolerating SIMV mode at this time. No resp. distress noted.
[2019-04-15] MEDS: Dyna-Hex 2% Top Sol 2oz TOPIC SCH (20:25)
[2019-04-15] MEDS: Tamsulosin 0.4mg cap ORAL SCH (21:17)
[2019-04-15] MEDS: Morphine Sulfate 2mg/ml Inj(IV/IM USE ONLY) IVP PRN (22:24)
--- NOTE | 2019-04-15 22:24 | NUR ---
NURSE NOTES: Morphine 1mg ivp was given by BLANCA Joel due to pain with relief.
[2019-04-16] VITALS (26 sets, daily range): BP systolic 90–117; BP diastolic 58–85
--- NOTE | 2019-04-16 02:00 | NUR ---
NURSE NOTES: Increase fdg to 30 ml/hr. Pt tolerating well.with 4ml residuals.
--- NOTE | 2019-04-16 04:00 | NUR ---
NURSE NOTES: Complete bed bath with bed changed done.
--- NOTE | 2019-04-16 06:00 | NUR ---
NURSE NOTES: Tolerating SIMV mode. VSS.
[2019-04-16 06:31] LABS: BASOPHILS % (AUTO) 0.3 % (0.0-2.0); EOSINOPHILS % (AUTO) 3.5 % (0.0-3.0); HEMATOCRIT 25.4 % (42.0-52.0); HEMOGLOBIN 8.5 G/DL (14.2-18.0); LYMPHOCYTES % (AUTO) 8.3 % (20.0-45.0); MEAN CORPUSCULAR VOLUME 85 FL (80-99); MONOCYTES % (AUTO) 4.5 % (1.0-10.0); NEUTROPHILS % (AUTO) 83.4 % (45.0-75.0); PLATELET COUNT 138 K/UL (150-450); RED BLOOD COUNT 2.97 M/UL (4.70-6.10); RED CELL DISTRIBUTION WIDTH 16.2 % (11.6-14.8); WHITE BLOOD COUNT 7.4 K/UL (4.8-10.8)
--- NOTE | 2019-04-16 07:03 | NUR ---
RESPIRATORY NOTE: received pt on current vent settings, tolerating SIMV/IMV well. no signs of resp distress noted. will attempt to wean later this AM. pt is orally intubated with ETT7.5 placed at 24cm at the lip, secured via anchor fast. no visible redness or skin irritation noted. alarms are set and audible with ambu bag at bedside. will cont to monitor throughout the day
[2019-04-16 07:11] LABS: ALANINE AMINOTRANSFERASE 16 U/L (12-78); ALBUMIN 1.8 G/DL (3.4-5.0); ALBUMIN/GLOBULIN RATIO 0.4 (1.0-2.7); ALKALINE PHOSPHATASE 75 U/L (46-116); ANION GAP 6 mmol/L (5-15); ASPARTATE AMINO TRANSFERASE 61 U/L (15-37); BILIRUBIN,TOTAL 0.3 MG/DL (0.2-1.0); BLOOD UREA NITROGEN 17 mg/dL (7-18); CALCIUM 10.8 MG/DL (8.5-10.1); CARBON DIOXIDE 27 MMOL/L (21-32); CHLORIDE 111 MMOL/L (98-107); CREATININE 1.3 MG/DL (0.55-1.30); POTASSIUM 3.8 MMOL/L (3.5-5.1); SODIUM 144 MMOL/L (136-145)
--- NOTE | 2019-04-16 07:19 | NUR ---
HAND-OFF: Report given to Junior RIOS.
[2019-04-16] MEDS: Memantine 5 MG TAB ORAL SCH ×2 (08:31→17:29)
[2019-04-16] MEDS: Cefepime HCl 1 GM in D5W 55 ML IVPB SCH (08:32)
[2019-04-16] MEDS: HydrALAZINE 10mg Tab NG SCH ×2 (08:33→20:43)
[2019-04-16] MEDS: Enoxaparin 30mg Inj SUBQ SCH (08:40)
--- NOTE | 2019-04-16 08:43 | NUR ---
RESPIRATORY NOTE: placed on CPAP PS8, doing well now for 5 mins. will cont to wean as tolerated and cont to monitor.
--- NOTE | 2019-04-16 08:45 | Urology Progress Note ---
Assessment/Plan Status: unchanged Assessment/Plan: 1. 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 2. Urinary retention. 3. Acute kidney injury, improved. 4. Hydronephrosis, likely chronic. 5. Proteinuria. 6. UTI and colonization. 7. Hematuria. monitor clinically maintain guerra, last replaced 04/10 hand irrigated and do PRN position is satisfactory monitor renal fxn, labile likely obst of bilateral distal ureters secondary to advanced prostate ca will need to see how aggressive pt and family want to be renal fxn improved with the new guerra consider ureteral stents or nephrostomies? flomax added voiding trial at some point? f/u on blood cx Subjective Allergies: Coded Allergies: No Known Allergies (Unverified , 04/03/19) Subjective all noted, remain in ICU, remains intubated Objective Last 24 Hour Vital Signs Date Time Temp Pulse Resp B/P (MAP) Pulse Ox O2 Delivery O2 Flow Rate FiO2 04/16/19 08:42 100 04/16/19 08:33 97/57 04/16/19 07:56 Mechanical Ventilator 04/16/19 07:00 100 20 99/70 (80) 100 04/16/19 06:58 99 20 50 04/16/19 06:00 103 20 99/68 (78) 100 04/16/19 05:00 98 23 98/66 (77) 100 04/16/19 04:55 100 17 50 04/16/19 04:00 100 04/16/19 04:00 Mechanical Ventilator Mechanical Ventilator 04/16/19 04:00 50 04/16/19 04:00 97.8 99 21 102/61 (75) 100 04/16/19 04:00 101 04/16/19 03:00 100 23 97/63 (74) 100 04/16/19 02:50 112 25 50 04/16/19 02:00 99 22 102/68 (79) 04/16/19 01:30 107 19 107/68 (81) 100 04/16/19 01:16 103 20 50 04/16/19 01:00 104 18 106/66 (79) 100 04/16/19 00:30 104 21 108/71 (83) 100 04/16/19 00:00 101 04/16/19 00:00 98.0 99 19 99/65 (76) 100 04/16/19 00:00 Mechanical Ventilator Mechanical Ventilator 04/15/19 23:30 102 21 101/63 (76) 100 04/15/19 23:00 100 20 97/64 (75) 100 04/15/19 22:50 104 21 50 04/15/19 22:30 104 23 92/62 (72) 100 04/15/19 22:19 118 25 130/74 (92) 100 04/15/19 22:00 111 21 111/72 (85) 100 04/15/19 21:17 113/70 04/15/19 21:06 117 12 50 04/15/19 21:00 111 22 117/72 (87) 100 04/15/19 20:00 Mechanical Ventilator Mechanical Ventilator 04/15/19 20:00 50 04/15/19 20:00 101 04/15/19 20:00 98.8 105 22 109/67 (81) 100 04/15/19 19:00 109 22 111/70 (84) 100 04/15/19 18:50 109 23 50 04/15/19 18:00 114 24 114/71 (85) 100 04/15/19 17:02 118 23 50 04/15/19 17:00 112 22 120/71 (87) 100 04/15/19 16:00 111 22 119/75 (90) 100 04/15/19 16:00 50 04/15/19 16:00 Mechanical Ventilator Mechanical Ventilator 04/15/19 16:00 111 04/15/19 15:49 113 22 50 04/15/19 15:00 114 22 146/88 (107) 100 04/15/19 14:00 111 22 115/73 (87) 100 04/15/19 13:02 121 24 50 04/15/19 13:00 124 23 130/86 (101) 100 04/15/19 12:00 50 04/15/19 12:00 Mechanical Ventilator Mechanical Ventilator 04/15/19 12:00 99.0 97 14 109/70 (83) 100 04/15/19 12:00 97 04/15/19 11:00 100 25 99/61 (74) 100 04/15/19 10:30 116 18 50 04/15/19 10:00 102 25 99/69 (79) 100 04/15/19 09:10 112 16 50 04/15/19 09:00 104 24 99/69 (79) 100 04/15/19 08:50 130/72 Intake and Output 04/15/19 04/16/19 19:00 07:00 Intake Total 1381.666 ml 875 ml Output Total 1 ml Balance 1381.666 ml 874 ml Free Water 50 ml IV Total 1301.666 ml 500 ml Tube Feeding 80 ml 325 ml Stool Total 1 ml # Voids 420 650 # Bowel Movements 1 3 Microbiology Date/Time Source Procedure Growth Status 04/14/19 12:45 Blood Blood Culture - Preliminary NO GROWTH AFTER 24 HOURS Resulted 04/15/19 21:40 Sputum Gram Stain - Final Resulted 04/15/19 21:40 Sputum Sputum Culture Pending Resulted 04/14/19 11:25 Urine,Random Urine Culture - Final NO GROWTH AFTER 48 HOURS Complete Current Medications Medications (Trade) Dose Ordered Sig/[place] Route PRN Reason Start Time Stop Time Status Last Admin Dose Admin Calcitonin [place] (Miacalcin) 1 sprays DAILY NASAL 04/14/19 09:00 05/10/19 13:29 04/16/19 08:32 Cefepime HCl 1 gm/ Dextrose 55 ml @ 110 mls/hr DAILY IVPB 04/16/19 09:00 04/21/19 08:59 04/16/19 08:32 Chlorhexidine Gluconate (Martha-Hex 2%) 1 applic DAILY@2000 TOPIC 04/13/19 20:00 05/06/19 19:59 04/15/19 20:25 Dextrose 1,000 ml @ 50 mls/hr Q20H IV 04/13/19 14:45 05/12/19 13:14 04/16/19 05:13 Enoxaparin Sodium (Lovenox) 30 mg DAILY SUBQ 04/14/19 09:00 05/04/19 08:59 04/16/19 08:40 Hydralazine HCl (Apresoline) 10 mg Q12HR NG 04/13/19 21:00 05/10/19 17:59 04/15/19 21:17 Hydralazine HCl (Apresoline) 10 mg Q4H PRN IV SBP > 170mmHg 04/13/19 15:00 05/08/19 14:59 Lansoprazole (Prevacid) 30 mg DAILY ORAL 2/11/20 09:00 05/13/19 08:59 04/16/19 08:31 Memantine (Namenda) 5 mg BID ORAL 04/13/19 18:00 05/04/19 17:59 04/16/19 08:31 Morphine Sulfate (Morphine Sulfate) 1 mg Q4H PRN IVP PAIN 4-10 04/13/19 18:00 04/20/19 17:59 04/15/19 22:24 Norepinephrine Bitartrate 4 mg/ Dextrose 250 ml @ 0 mls/hr Q24H IV 04/13/19 17:00 05/13/19 16:59 04/14/19 22:57 Tamsulosin HCl (Flomax) 0.4 mg BEDTIME ORAL 04/13/19 21:00 05/13/19 20:59 04/15/19 21:17 Vancomycin HCl (Vanco rx to dose) 1 ea DAILY PRN MISC Per rx protocol 04/14/19 11:15 05/14/19 11:14 Vancomycin/Sodium Chloride 275 ml @ 183.333 mls/hr Q24H IVPB 04/14/19 14:00 04/19/19 13:59 04/15/19 14:49 Laboratory Tests 04/15/19 08:58: Arterial Blood pH 7.299L, Arterial Blood Partial Pressure CO2 53.7H, Arterial Blood Partial Pressure O2 95.7, Arterial Blood HCO3 25.8, Arterial Blood Oxygen Saturation 96.1, Arterial Blood Base Excess -1.0, Antonio Test Positive 04/16/19 04:00: White Blood Count 7.4, Red Blood Count 2.97L, Hemoglobin 8.5L, Hematocrit 25.4L , Mean Corpuscular Volume 85, Mean Corpuscular Hemoglobin 28.8, Mean Corpuscular Hemoglobin Concent 33.7, Red Cell Distribution Width 16.2H, Platelet Count 138L, Mean Platelet Volume 4.8L, Neutrophils (%) (Auto) 83.4H, Lymphocytes (%) (Auto) 8.3L, Monocytes (%) (Auto) 4.5, Eosinophils (%) (Auto) 3.5H, Basophils (%) (Auto) 0.3, Sodium Level 144, Potassium Level 3.8, Chloride Level 111H, Carbon Dioxide Level 27, Anion Gap 6, Blood Urea Nitrogen 17, Creatinine 1.3, Estimat Glomerular Filtration Rate > 60, Glucose Level 96, Calcium Level 10.8H, Total Bilirubin 0.3, Aspartate Amino Transf (AST/SGOT) 61H , Alanine Aminotransferase (ALT/SGPT) 16, Alkaline Phosphatase 75, Total Protein 5.9L, Albumin 1.8L, Globulin 4.1, Albumin/Globulin Ratio 0.4L Height (Feet): 5 Height (Inches): 7.00 Weight (Pounds): 165 Objective exam stable guerra indwelling, allegra urine CT A/P (04/10) noted Raz Root MD Apr 16, 2019 08:45
--- NOTE | 2019-04-16 08:47 | Hematology/Onc Progress Note ---
Assessment/Plan Assessment/Plan # Prostate cancer stage IV with psa >700, cr is worse, hydronephrosis noted, seen by renal, Dr. White. --> i did received records from [facility]. has regional lymphadenopathy, s/p transrectal biopsy with Gleasons 5+5 (2010) in all cores, apparently has had a 3 year course of androgen deprivation from 2011- 2014.also status post RADIATION to the prostate, then lost to followup. Following surviellance psa 0.45-->65, in 10/2016, and up to 127 in 12/2016, Ct scan showed recurrence of disease with lad but no bony mets, started on lupron 01/2017, psa fell yo 73-->46, has been sarted on zytiga + prednisone, and now psa progression on zytiga, he started xtandi in 01/2019 Psa 87. He did not go through urethral stenting, he has deferred treatment with chemo. --> He is a very poor historian, I have talked to the sister --> imaging has been noted --> as per urology recs, reviewed --> have called , no answer, trans to [facility]? --> poor prognosis given above history of treatment, defer transfer to [facility] --> psa 737-->757 --> CT ABD 04/10: Evidence of advanced metastatic neoplasm likely secondary to prostate carcinoma. Extensive retroperitoneal and pelvic lymphadenopathy complicated by presence of bilateral hydroureteronephrosis. Extensive metastatic disease involving the bones also noted. Status post seed implant radiation therapy to the prostate gland. # Hypercalcemia -- now acutely worse --> trend Ca++ 8.1-->13-->12-->10.3-->10.7-->13.2 -->11-->10.5 --> ivf has been started --> as per nephrology --> calcitonin was given # Anemia due to underlying malignancy --> hgb trend as needed 9.2-->7-->10.9-->11-->9.7 --> no hemolysis is noted --> no bleeding # Episode of generalized weakness --> on ivf --> pt as needed # Hypokalemia --> replete prn # Dehydration --> on ivf # Atrophic changes without evident intracranial hemorrhage. --> as per neuro, remains confused # Respiratory failure s/p vent --> s/p vent intubated on 04/06 --> 04/08 was extubated --> reintubated # Hypernatremia as well as low BUN. --> on ivf # Poor prognosis # Dvt ppx lovenox sq Appreciate consultation and dW Rn Subjective Constitutional: Denies: no symptoms, chills, fever, malaise, weakness, other HEENT: Denies: no symptoms, eye pain, blurred vision, tearing, double vision, ear pain, ear discharge, nose pain, nose congestion, throat pain, throat swelling, mouth pain, mouth swelling, other Respiratory: Denies: no symptoms, cough, shortness of breath, SOB with excertion, SOB at rest, sputum, wheezing, other Genitourinary: Denies: no symptoms, burning, discharge, frequency, flank pain, hematuria, incontinence, pain, urgency, other Neurologic/Psychiatric: Denies: no symptoms, anxiety, depressed, emotional problems, headache, numbness, paresthesia, pre-existing deficit, seizure, tingling, tremors, weakness, other Endocrine: Denies: no symptoms, excessive sweating, flushing, intolerance to cold, intolerance to heat, increased hunger, increased thirst, increased urine, unexplained weight gain, unexplained weight loss, other Hematologic/Lymphatic: Denies: no symptoms, anemia, easy bleeding, easy bruising, adenopathy, other Allergies: Coded Allergies: No Known Allergies (Unverified , 04/03/19) Subjective 04/06: no events, apparently intubated today and transferred to the icu, will dw family 04/07: remains in the icu, critically ill, Ca++ 12, on vent, minimally responsive , on dopa, dw pcp and pulm 04/08: no major changes, no night sweats, labs have been reviewed, dw daughter, he is more alert 04/10: awake, no acute events ct abd reviewed, stool ob negative 04/12: labs reviewed, nc, tachy, ceftriaxone, no sob 04/13: lethargic, nc 3l, no acute distress, labs reviewed 04/14: Ca++ remains elev 13.2, De Amy aware, on calcitonin, on lovenox 04/15: no major changes, remains intubated, seen by cards, renal, pulm, dw Kellie, kcl ordered 04/16: tolerating meds well, no bleeding, on vent, is on simv mode, nicholas Pacheco Rn Objective Objective Current Medications Medications (Trade) Dose Ordered Sig/[place] Route PRN Reason Start Time Stop Time Status Last Admin Dose Admin Calcitonin [place] (Miacalcin) 1 sprays DAILY NASAL 04/14/19 09:00 05/10/19 13:29 04/16/19 08:32 Cefepime HCl 1 gm/ Dextrose 55 ml @ 110 mls/hr DAILY IVPB 04/16/19 09:00 04/21/19 08:59 04/16/19 08:32 Chlorhexidine Gluconate (Martha-Hex 2%) 1 applic DAILY@2000 TOPIC 04/13/19 20:00 05/06/19 19:59 04/15/19 20:25 Dextrose 1,000 ml @ 50 mls/hr Q20H IV 04/13/19 14:45 05/12/19 13:14 04/16/19 05:13 Enoxaparin Sodium (Lovenox) 30 mg DAILY SUBQ 04/14/19 09:00 05/04/19 08:59 04/16/19 08:40 Hydralazine HCl (Apresoline) 10 mg Q12HR NG 04/13/19 21:00 05/10/19 17:59 04/15/19 21:17 Hydralazine HCl (Apresoline) 10 mg Q4H PRN IV SBP > 170mmHg 04/13/19 15:00 05/08/19 14:59 Lansoprazole (Prevacid) 30 mg DAILY ORAL 04/14/19 09:00 05/13/19 08:59 04/16/19 08:31 Memantine (Namenda) 5 mg BID ORAL 04/13/19 18:00 05/04/19 17:59 04/16/19 08:31 Morphine Sulfate (Morphine Sulfate) 1 mg Q4H PRN IVP PAIN 4-10 04/13/19 18:00 04/20/19 17:59 04/15/19 22:24 Norepinephrine Bitartrate 4 mg/ Dextrose 250 ml @ 0 mls/hr Q24H IV 04/13/19 17:00 05/13/19 16:59 04/14/19 22:57 Tamsulosin HCl (Flomax) 0.4 mg BEDTIME ORAL 04/13/19 21:00 05/13/19 20:59 04/15/19 21:17 Vancomycin HCl (Vanco rx to dose) 1 ea DAILY PRN MISC Per rx protocol 04/14/19 11:15 05/14/19 11:14 Vancomycin/Sodium Chloride 275 ml @ 183.333 mls/hr Q24H IVPB 04/14/19 14:00 04/19/19 13:59 04/15/19 14:49 Last 24 Hour Vital Signs Date Time Temp Pulse Resp B/P (MAP) Pulse Ox O2 Delivery O2 Flow Rate FiO2 04/16/19 08:42 100 04/16/19 08:33 97/57 04/16/19 07:56 Mechanical Ventilator 04/16/19 07:00 100 20 99/70 (80) 100 04/16/19 06:58 99 20 50 04/16/19 06:00 103 20 99/68 (78) 100 04/16/19 05:00 98 23 98/66 (77) 100 04/16/19 04:55 100 17 50 04/16/19 04:00 100 04/16/19 04:00 Mechanical Ventilator Mechanical Ventilator 04/16/19 04:00 50 04/16/19 04:00 97.8 99 21 102/61 (75) 100 04/16/19 04:00 101 04/16/19 03:00 100 23 97/63 (74) 100 04/16/19 02:50 112 25 50 04/16/19 02:00 99 22 102/68 (79) 04/16/19 01:30 107 19 107/68 (81) 100 04/16/19 01:16 103 20 50 04/16/19 01:00 104 18 106/66 (79) 100 04/16/19 00:30 104 21 108/71 (83) 100 04/16/19 00:00 101 04/16/19 00:00 98.0 99 19 99/65 (76) 100 04/16/19 00:00 Mechanical Ventilator Mechanical Ventilator 04/15/19 23:30 102 21 101/63 (76) 100 04/15/19 23:00 100 20 97/64 (75) 100 04/15/19 22:50 104 21 50 04/15/19 22:30 104 23 92/62 (72) 100 04/15/19 22:19 118 25 130/74 (92) 100 04/15/19 22:00 111 21 111/72 (85) 100 04/15/19 21:17 113/70 04/15/19 21:06 117 12 50 04/15/19 21:00 111 22 117/72 (87) 100 04/15/19 20:00 Mechanical Ventilator Mechanical Ventilator 04/15/19 20:00 50 04/15/19 20:00 101 04/15/19 20:00 98.8 105 22 109/67 (81) 100 04/15/19 19:00 109 22 111/70 (84) 100 04/15/19 18:50 109 23 50 04/15/19 18:00 114 24 114/71 (85) 100 04/15/19 17:02 118 23 50 04/15/19 17:00 112 22 120/71 (87) 100 04/15/19 16:00 111 22 119/75 (90) 100 04/15/19 16:00 50 04/15/19 16:00 Mechanical Ventilator Mechanical Ventilator 04/15/19 16:00 111 04/15/19 15:49 113 22 50 04/15/19 15:00 114 22 146/88 (107) 100 04/15/19 14:00 111 22 115/73 (87) 100 04/15/19 13:02 121 24 50 04/15/19 13:00 124 23 130/86 (101) 100 04/15/19 12:00 50 04/15/19 12:00 Mechanical Ventilator Mechanical Ventilator 04/15/19 12:00 99.0 97 14 109/70 (83) 100 04/15/19 12:00 97 04/15/19 11:00 100 25 99/61 (74) 100 04/15/19 10:30 116 18 50 04/15/19 10:00 102 25 99/69 (79) 100 04/15/19 09:10 112 16 50 04/15/19 09:00 104 24 99/69 (79) 100 04/15/19 08:50 130/72 04/15/19 08:00 115 22 112/69 (83) 100 04/15/19 08:00 Mechanical Ventilator Mechanical Ventilator 04/15/19 08:00 113 04/15/19 07:05 99 04/15/19 07:05 118 18 Mechanical Ventilator 40 50 04/15/19 07:00 98.8 108 21 117/65 (82) 100 04/15/19 06:00 108 22 99/68 (78) 100 04/15/19 05:43 110 14 50 04/15/19 05:00 101 22 119/72 (88) 100 04/15/19 04:00 50 04/15/19 04:00 97.8 98 20 97/64 (75) 100 04/15/19 04:00 Mechanical Ventilator Mechanical Ventilator 04/15/19 04:00 98 04/15/19 03:33 109 14 50 04/15/19 03:30 96 20 97/64 (75) 100 04/15/19 03:00 99 17 96/57 (70) 100 04/15/19 02:30 93 14 88/59 (69) 100 04/15/19 02:00 115/62 04/15/19 02:00 89 14 84/61 (69) 98 04/15/19 01:41 98 14 100 Mechanical Ventilator 50 99 14 50 04/15/19 01:30 99 21 110/68 (82) 99 04/15/19 01:00 97 22 101/63 (76) 96 04/15/19 01:00 110/68 04/15/19 00:30 95 23 96/63 (74) 04/15/19 00:00 50 04/15/19 00:00 97 04/15/19 00:00 Mechanical Ventilator Mechanical Ventilator 04/15/19 00:00 96/63 04/15/19 00:00 97.9 99 23 112/66 (81) 94 04/14/19 23:30 97 22 122/78 (93) 100 04/14/19 23:15 98 16 50 04/14/19 23:00 93 18 113/71 (85) 100 04/14/19 23:00 122/78 04/14/19 22:57 110/65 04/14/19 22:30 93 21 110/65 (80) 04/14/19 22:00 94 15 116/76 (89) 100 04/14/19 22:00 110/65 04/14/19 21:30 109 23 125/69 (87) 100 04/14/19 21:08 98 14 50 04/14/19 21:00 127/70 04/14/19 21:00 99/60 04/14/19 21:00 101 8 127/70 (89) 100 04/14/19 20:45 92 15 117/68 (84) 100 04/14/19 20:30 92 14 119/70 (86) 04/14/19 20:00 50 04/14/19 20:00 99.8 94 16 119/75 (90) 97 04/14/19 20:00 Mechanical Ventilator Mechanical Ventilator 04/14/19 20:00 94 04/14/19 20:00 119/75 04/14/19 19:30 92 18 137/85 (102) 99 04/14/19 19:18 97 15 100 Mechanical Ventilator 50 99 14 50 04/14/19 19:00 104 24 157/89 (111) 92 04/14/19 19:00 157/89 04/14/19 18:15 99 23 158/97 (117) 99 04/14/19 18:00 149/87 04/14/19 18:00 107 26 149/87 (107) 100 04/14/19 17:00 101 25 114/78 (90) 100 04/14/19 17:00 114/78 04/14/19 16:38 98 15 50 04/14/19 16:00 Mechanical Ventilator Mechanical Ventilator 04/14/19 16:00 107 04/14/19 16:00 135/76 04/14/19 16:00 50 04/14/19 16:00 100.5 103 18 135/76 (95) 100 04/14/19 15:00 136/76 04/14/19 15:00 102 16 136/76 (96) 100 04/14/19 15:00 100 22 50 04/14/19 14:56 112/68 04/14/19 14:00 96 14 147/73 (97) 100 04/14/19 14:00 147/73 04/14/19 13:16 100 14 100 Mechanical Ventilator 50.0 50 100 14 60 04/14/19 13:00 96 14 116/71 (86) 100 04/14/19 13:00 116/71 04/14/19 12:05 50 04/14/19 12:00 100.3 94 14 117/71 (86) 100 04/14/19 12:00 Mechanical Ventilator Mechanical Ventilator 04/14/19 12:00 117/71 04/14/19 12:00 94 04/14/19 11:30 97 14 101/65 (77) 100 04/14/19 11:00 97 14 50 04/14/19 11:00 101/65 04/14/19 11:00 91 14 114/74 (87) 100 04/14/19 10:00 103 21 113/73 (86) 100 04/14/19 10:00 124/76 04/14/19 09:30 106 34 119/75 (90) 100 04/14/19 09:15 106 14 50 04/14/19 09:00 117/69 04/14/19 09:00 94 19 99/66 (77) 100 04/14/19 08:59 104/65 04/14/19 08:55 104/65 Intake and Output 04/15/19 04/16/19 19:00 07:00 Intake Total 1381.666 ml 875 ml Output Total 1 ml Balance 1381.666 ml 874 ml Free Water 50 ml IV Total 1301.666 ml 500 ml Tube Feeding 80 ml 325 ml Stool Total 1 ml # Voids 420 650 # Bowel Movements 1 3 Labs Test 04/13/19 15:21 04/13/19 18:45 04/14/19 06:05 04/14/19 09:24 Arterial Blood pH 7.302 (7.350-7.450) 7.357 (7.350-7.450) Arterial Blood Partial Pressure CO2 58.4 mmHg (35.0-45.0) 47.8 mmHg (35.0-45.0) Arterial Blood Partial Pressure O2 459.8 mmHg (75.0-100.0) 74.8 mmHg (75.0-100.0) Arterial Blood HCO3 28.2 mmol/L (22.0-26.0) 26.2 mmol/L (22.0-26.0) Arterial Blood Oxygen Saturation 99.0 % (95-100) 93.8 % (95-100) Arterial Blood Base Excess 1.1 (-2-2) 0.4 (-2-2) Antonio Test Positive Positive White Blood Count 11.6 K/UL (4.8-10.8) 11.7 K/UL (4.8-10.8) Red Blood Count 3.55 M/UL (4.70-6.10) 3.34 M/UL (4.70-6.10) Hemoglobin 9.7 G/DL (14.2-18.0) 9.6 G/DL (14.2-18.0) Hematocrit 32.5 % (42.0-52.0) 28.7 % (42.0-52.0) Mean Corpuscular Volume 92 FL (80-99) 86 FL (80-99) Mean Corpuscular Hemoglobin 27.3 PG (27.0-31.0) 28.8 PG (27.0-31.0) Mean Corpuscular Hemoglobin Concent 29.8 G/DL (32.0-36.0) 33.5 G/DL (32.0-36.0) Red Cell Distribution Width 17.5 % (11.6-14.8) 16.1 % (11.6-14.8) Platelet Count 196 K/UL (150-450) 181 K/UL (150-450) Mean Platelet Volume 6.1 FL (6.5-10.1) 5.0 FL (6.5-10.1) Neutrophils (%) (Auto) 84.3 % (45.0-75.0) 80.0 % (45.0-75.0) Lymphocytes (%) (Auto) 8.2 % (20.0-45.0) 12.5 % (20.0-45.0) Monocytes (%) (Auto) 4.0 % (1.0-10.0) 4.2 % (1.0-10.0) Eosinophils (%) (Auto) 2.6 % (0.0-3.0) 2.9 % (0.0-3.0) Basophils (%) (Auto) 0.9 % (0.0-2.0) 0.4 % (0.0-2.0) Troponin I 0.040 ng/mL (0.000-0.056) 0.131 ng/mL (0.000-0.056) Sodium Level 151 MMOL/L (136-145) Potassium Level 3.3 MMOL/L (3.5-5.1) Chloride Level 117 MMOL/L (98-107) Carbon Dioxide Level 28 MMOL/L (21-32) Anion Gap 6 mmol/L (5-15) Blood Urea Nitrogen 19 mg/dL (7-18) Creatinine 1.4 MG/DL (0.55-1.30) Estimat Glomerular Filtration Rate mL/min (>60) Glucose Level 120 MG/DL (74-106) Calcium Level 12.3 MG/DL (8.5-10.1) Test 04/14/19 11:25 04/15/19 05:37 04/15/19 08:58 04/16/19 04:00 Urine Color Pale yellow Urine Appearance Clear Urine pH 5 (4.5-8.0) Urine Specific [place] 1.015 (1.005-1.035) Urine Protein 2+ (NEGATIVE) Urine Glucose (UA) Negative (NEGATIVE) Urine Ketones Negative (NEGATIVE) Urine Blood 5+ (NEGATIVE) Urine Nitrite Negative (NEGATIVE) Urine Bilirubin Negative (NEGATIVE) Urine Urobilinogen Normal MG/DL (0.0-1.0) Urine Leukocyte Esterase 3+ (NEGATIVE) Urine RBC 2-4 /HPF (0 - 0) Urine WBC 10-15 /HPF (0 - 0) Urine Squamous Epithelial Cells None /LPF (NONE/OCC) Urine Bacteria Few /HPF (NONE) White Blood Count 9.1 K/UL (4.8-10.8) 7.4 K/UL (4.8-10.8) Red Blood Count 3.07 M/UL (4.70-6.10) 2.97 M/UL (4.70-6.10) Hemoglobin 9.0 G/DL (14.2-18.0) 8.5 G/DL (14.2-18.0) Hematocrit 25.7 % (42.0-52.0) 25.4 % (42.0-52.0) Mean Corpuscular Volume 84 FL (80-99) 85 FL (80-99) Mean Corpuscular Hemoglobin 29.3 PG (27.0-31.0) 28.8 PG (27.0-31.0) Mean Corpuscular Hemoglobin Concent 34.9 G/DL (32.0-36.0) 33.7 G/DL (32.0-36.0) Red Cell Distribution Width 15.8 % (11.6-14.8) 16.2 % (11.6-14.8) Platelet Count 139 K/UL (150-450) 138 K/UL (150-450) Mean Platelet Volume 5.1 FL (6.5-10.1) 4.8 FL (6.5-10.1) Neutrophils (%) (Auto) % (45.0-75.0) 83.4 % (45.0-75.0) Lymphocytes (%) (Auto) % (20.0-45.0) 8.3 % (20.0-45.0) Monocytes (%) (Auto) % (1.0-10.0) 4.5 % (1.0-10.0) Eosinophils (%) (Auto) % (0.0-3.0) 3.5 % (0.0-3.0) Basophils (%) (Auto) % (0.0-2.0) 0.3 % (0.0-2.0) Differential Total Cells Counted 100 Neutrophils % (Manual) 82 % (45-75) Lymphocytes % (Manual) 12 % (20-45) Monocytes % (Manual) 4 % (1-10) Eosinophils % (Manual) 2 % (0-3) Basophils % (Manual) 0 % (0-2) Band Neutrophils 0 % (0-8) Platelet Estimate Decreased Platelet Morphology Normal Anisocytosis 1+ Sodium Level 147 MMOL/L (136-145) 144 MMOL/L (136-145) Potassium Level 3.3 MMOL/L (3.5-5.1) 3.8 MMOL/L (3.5-5.1) Chloride Level 111 MMOL/L (98-107) 111 MMOL/L (98-107) Carbon Dioxide Level 29 MMOL/L (21-32) 27 MMOL/L (21-32) Anion Gap 7 mmol/L (5-15) 6 mmol/L (5-15) Blood Urea Nitrogen 17 mg/dL (7-18) 17 mg/dL (7-18) Creatinine 1.4 MG/DL (0.55-1.30) 1.3 MG/DL (0.55-1.30) Estimat Glomerular Filtration Rate > 60 mL/min (>60) > 60 mL/min (>60) Glucose Level 88 MG/DL (74-106) 96 MG/DL (74-106) Calcium Level 11.6 MG/DL (8.5-10.1) 10.8 MG/DL (8.5-10.1) Arterial Blood pH 7.299 (7.350-7.450) Arterial Blood Partial Pressure CO2 53.7 mmHg (35.0-45.0) Arterial Blood Partial Pressure O2 95.7 mmHg (75.0-100.0) Arterial Blood HCO3 25.8 mmol/L (22.0-26.0) Arterial Blood Oxygen Saturation 96.1 % (95-100) Arterial Blood Base Excess -1.0 (-2-2) Antonio Test Positive Total Bilirubin 0.3 MG/DL (0.2-1.0) Aspartate Amino Transf (AST/SGOT) 61 U/L (15-37) Alanine Aminotransferase (ALT/SGPT) 16 U/L (12-78) Alkaline Phosphatase 75 U/L (46-116) Total Protein 5.9 G/DL (6.4-8.2) Albumin 1.8 G/DL (3.4-5.0) Globulin 4.1 g/dL Albumin/Globulin Ratio 0.4 (1.0-2.7) Micro Microbiology Date/Time Source Procedure Growth Status 04/15/19 21:40 Sputum Gram Stain - Final Resulted 04/15/19 21:40 Sputum Sputum Culture Pending Resulted Height (Feet): 5 Height (Inches): 7.00 Weight (Pounds): 165 Objective General: normal inspection, alert, Chronically Ill Respiratory: s/p vent++ Cardiovascular: regular rate, rhythm, no edema Gastrointestinal: normal inspection, normal bowel sounds Genitourinary: no CVA tenderness Mus: normal inspection, back normal, normal range of motion Neurologic: alert, motor strength/tone normal, oriented + confused Psychiatric: normal inspection, judgement/insight normal Skin: no rash Andreas Monroy MD Apr 16, 2019 08:47
--- NOTE | 2019-04-16 08:52 | NUR ---
RESPIRATORY NOTE: pt was placed back on SIMV/IMV mode. pt became tachypneic and tired. RN aware
--- NOTE | 2019-04-16 09:52 | General Progress Note ---
Assessment/Plan Status: unchanged Assessment/Plan: Assessment/Plan Problems: (1) Coffee ground emesis (2) Anemia (3) metastatic prostate CA (4) respiratory failure intubated in the ICU off pressor NGTF ppi will fu Subjective ROS Limited/Unobtainable: No Allergies: Coded Allergies: No Known Allergies (Unverified , 04/03/19) Objective Last 24 Hour Vital Signs Date Time Temp Pulse Resp B/P (MAP) Pulse Ox O2 Delivery O2 Flow Rate FiO2 04/16/19 09:00 100 11 98/64 (75) 100 04/16/19 08:43 107 20 40 40 04/16/19 08:42 100 04/16/19 08:33 97/57 04/16/19 08:00 97.8 97 18 90/63 (72) 100 04/16/19 08:00 50 04/16/19 07:56 Mechanical Ventilator 04/16/19 07:00 100 20 99/70 (80) 100 04/16/19 06:58 99 20 50 04/16/19 06:00 103 20 99/68 (78) 100 04/16/19 05:00 98 23 98/66 (77) 100 04/16/19 04:55 100 17 50 04/16/19 04:00 100 04/16/19 04:00 Mechanical Ventilator Mechanical Ventilator 04/16/19 04:00 50 04/16/19 04:00 97.8 99 21 102/61 (75) 100 04/16/19 04:00 101 04/16/19 03:00 100 23 97/63 (74) 100 04/16/19 02:50 112 25 50 04/16/19 02:00 99 22 102/68 (79) 04/16/19 01:30 107 19 107/68 (81) 100 04/16/19 01:16 103 20 50 04/16/19 01:00 104 18 106/66 (79) 100 04/16/19 00:30 104 21 108/71 (83) 100 04/16/19 00:00 101 04/16/19 00:00 98.0 99 19 99/65 (76) 100 04/16/19 00:00 Mechanical Ventilator Mechanical Ventilator 04/15/19 23:30 102 21 101/63 (76) 100 04/15/19 23:00 100 20 97/64 (75) 100 04/15/19 22:50 104 21 50 04/15/19 22:30 104 23 92/62 (72) 100 04/15/19 22:19 118 25 130/74 (92) 100 04/15/19 22:00 111 21 111/72 (85) 100 04/15/19 21:17 113/70 04/15/19 21:06 117 12 50 04/15/19 21:00 111 22 117/72 (87) 100 04/15/19 20:00 Mechanical Ventilator Mechanical Ventilator 04/15/19 20:00 50 04/15/19 20:00 101 04/15/19 20:00 98.8 105 22 109/67 (81) 100 04/15/19 19:00 109 22 111/70 (84) 100 04/15/19 18:50 109 23 50 04/15/19 18:00 114 24 114/71 (85) 100 04/15/19 17:02 118 23 50 04/15/19 17:00 112 22 120/71 (87) 100 04/15/19 16:00 111 22 119/75 (90) 100 04/15/19 16:00 50 04/15/19 16:00 Mechanical Ventilator Mechanical Ventilator 04/15/19 16:00 111 04/15/19 15:49 113 22 50 04/15/19 15:00 114 22 146/88 (107) 100 04/15/19 14:00 111 22 115/73 (87) 100 04/15/19 13:02 121 24 50 04/15/19 13:00 124 23 130/86 (101) 100 04/15/19 12:00 50 04/15/19 12:00 Mechanical Ventilator Mechanical Ventilator 04/15/19 12:00 99.0 97 14 109/70 (83) 100 04/15/19 12:00 97 04/15/19 11:00 100 25 99/61 (74) 100 04/15/19 10:30 116 18 50 04/15/19 10:00 102 25 99/69 (79) 100 Intake and Output 04/15/19 04/16/19 19:00 07:00 Intake Total 1381.666 ml 875 ml Output Total 1 ml Balance 1381.666 ml 874 ml Free Water 50 ml IV Total 1301.666 ml 500 ml Tube Feeding 80 ml 325 ml Stool Total 1 ml # Voids 420 650 # Bowel Movements 1 3 Laboratory Tests 04/16/19 04:00: White Blood Count 7.4, Red Blood Count 2.97L, Hemoglobin 8.5L, Hematocrit 25.4L , Mean Corpuscular Volume 85, Mean Corpuscular Hemoglobin 28.8, Mean Corpuscular Hemoglobin Concent 33.7, Red Cell Distribution Width 16.2H, Platelet Count 138L, Mean Platelet Volume 4.8L, Neutrophils (%) (Auto) 83.4H, Lymphocytes (%) (Auto) 8.3L, Monocytes (%) (Auto) 4.5, Eosinophils (%) (Auto) 3.5H, Basophils (%) (Auto) 0.3, Sodium Level 144, Potassium Level 3.8, Chloride Level 111H, Carbon Dioxide Level 27, Anion Gap 6, Blood Urea Nitrogen 17, Creatinine 1.3, Estimat Glomerular Filtration Rate > 60, Glucose Level 96, Calcium Level 10.8H, Total Bilirubin 0.3, Aspartate Amino Transf (AST/SGOT) 61H , Alanine Aminotransferase (ALT/SGPT) 16, Alkaline Phosphatase 75, Total Protein 5.9L, Albumin 1.8L, Globulin 4.1, Albumin/Globulin Ratio 0.4L Height (Feet): 5 Height (Inches): 7.00 Weight (Pounds): 165 General Appearance: lethargic Neck: supple Cardiovascular: normal rate Respiratory/Chest: decreased breath sounds Abdomen: normal bowel sounds, non tender, soft Extremities: non-tender Tyrone Lamb MD Apr 16, 2019 09:52
--- NOTE | 2019-04-16 10:04 | Infectious Diseases Prog Note ---
Assessment/Plan Assessment/Plan Assessment: s/p bradycardia>cardiac arrest 04/13 VDRF 04/13 Shock, recurrent- off pressors nwo s/p asystole cardiac arrest 04/06 VDRF; s/p extubation 04/08 Low grade fever; improving Mild leukocytosis, recurrent- SP -04/15 sp cx p -04/14 u/a wbc 10-15, nit neg, leuk +3; ucx NTD CXR: Interim development of complete right upper lobe atelectasis. Nonspecific diffuse hazy left lung opacity, likely mild pulmonary edema. -04/07 Bcx NTD u/a wbc tnct, nit neg, leuk +; ucx neg -04/06 CXR: Interval resolution of right apical density. This suggests the diagnosis was atelectasis rather than an apical cap from blood, which was suggested as a possibility on the prior report. The right upper lobe atelectasis has resolved. Suspicion of new atelectasis at the right lung base. Sepsis UTI B/l hydroureteronephrosis -04/10 CT abd/p: Evidence of advanced metastatic neoplasm likely secondary to prostate carcinoma. Extensive retroperitoneal and pelvic lymphadenopathy complicated by presence of bilateral hydroureteronephrosis. Extensive metastatic disease involving the bones also noted. Small left pleural effusion. Right trace right pleural effusion. Right inguinal hernia containing a small amount of fluid. Alternatively this could represent part of the testis. Anasarca. -u/a wbc 20-30, nit +, leuk +3; ucx >100k E.coli (R amp, bactrim; otherwise S) Probable Aspiration pneumonitis vs PNA -04/08 CXR: Patchy perihilar disease which may be asymmetric interstitial edema or infiltrate unchanged. Interval resolution of right basal atelectasis. -04/07 sp cx normal sharyn(prelim) s/p recent fall LETA Hypokalemia prostate CA stage IV, mets to bone chronic indwelling guerra catheter Plan: -Cont empiric IV vancomycin and Cefepime #3 given HD decompensation and pending repeat cultures -04/13 SP Ceftriaxone #4 - 04/10 Sp ZOsyn #4 -2/6 SP IV Vancomycin #3 -2/ SP Ceftriaxone #4 -f/u cx -Monitor CBC/CMP, temperatures -aspiration precautions -Cards, renal, Uro, pulm f/u -f/u ucx, Bcx,sp cx -ICU/ETT care -poor px- consider re-evaluation of goals of care- ?Hospice Thank you for this consultation. Will continue to follow along with you. Discussed with RN Subjective Allergies: Coded Allergies: No Known Allergies (Unverified , 04/03/19) Subjective afebrile >36rs off pressors no leukocytosis remains intubated Objective Vital Signs Last 24 Hour Vital Signs Date Time Temp Pulse Resp B/P (MAP) Pulse Ox O2 Delivery O2 Flow Rate FiO2 04/16/19 09:00 100 11 98/64 (75) 100 04/16/19 08:43 107 20 40 40 04/16/19 08:42 100 04/16/19 08:33 97/57 04/16/19 08:00 97.8 97 18 90/63 (72) 100 04/16/19 08:00 50 04/16/19 07:56 Mechanical Ventilator 04/16/19 07:00 100 20 99/70 (80) 100 04/16/19 06:58 99 20 50 04/16/19 06:00 103 20 99/68 (78) 100 04/16/19 05:00 98 23 98/66 (77) 100 04/16/19 04:55 100 17 50 04/16/19 04:00 100 04/16/19 04:00 Mechanical Ventilator Mechanical Ventilator 04/16/19 04:00 50 04/16/19 04:00 97.8 99 21 102/61 (75) 100 04/16/19 04:00 101 04/16/19 03:00 100 23 97/63 (74) 100 04/16/19 02:50 112 25 50 04/16/19 02:00 99 22 102/68 (79) 04/16/19 01:30 107 19 107/68 (81) 100 04/16/19 01:16 103 20 50 04/16/19 01:00 104 18 106/66 (79) 100 04/16/19 00:30 104 21 108/71 (83) 100 04/16/19 00:00 101 04/16/19 00:00 98.0 99 19 99/65 (76) 100 04/16/19 00:00 Mechanical Ventilator Mechanical Ventilator 04/15/19 23:30 102 21 101/63 (76) 100 2/12/20 23:00 100 20 97/64 (75) 100 04/15/19 22:50 104 21 50 04/15/19 22:30 104 23 92/62 (72) 100 04/15/19 22:19 118 25 130/74 (92) 100 04/15/19 22:00 111 21 111/72 (85) 100 04/15/19 21:17 113/70 04/15/19 21:06 117 12 50 04/15/19 21:00 111 22 117/72 (87) 100 04/15/19 20:00 Mechanical Ventilator Mechanical Ventilator 04/15/19 20:00 50 04/15/19 20:00 101 04/15/19 20:00 98.8 105 22 109/67 (81) 100 04/15/19 19:00 109 22 111/70 (84) 100 04/15/19 18:50 109 23 50 04/15/19 18:00 114 24 114/71 (85) 100 04/15/19 17:02 118 23 50 04/15/19 17:00 112 22 120/71 (87) 100 04/15/19 16:00 111 22 119/75 (90) 100 04/15/19 16:00 50 04/15/19 16:00 Mechanical Ventilator Mechanical Ventilator 04/15/19 16:00 111 04/15/19 15:49 113 22 50 04/15/19 15:00 114 22 146/88 (107) 100 04/15/19 14:00 111 22 115/73 (87) 100 04/15/19 13:02 121 24 50 04/15/19 13:00 124 23 130/86 (101) 100 04/15/19 12:00 50 04/15/19 12:00 Mechanical Ventilator Mechanical Ventilator 04/15/19 12:00 99.0 97 14 109/70 (83) 100 04/15/19 12:00 97 04/15/19 11:00 100 25 99/61 (74) 100 04/15/19 10:30 116 18 50 Height (Feet): 5 Height (Inches): 7.00 Weight (Pounds): 165 Objective General Appearance: normal inspection, alert, Chronically Ill ENT: ETT in place Neck: normal inspection, full range of motion, supple, no bony tend Respiratory: normal inspection, lungs clear, no wheezing Cardiovascular # regular rate, rhythm, no edema Gastrointestinal: normal inspection, normal bowel sounds, non tender, soft, no guardinga Musculoskeletal: normal inspection, back normal, normal range of motion Skin: no rash Microbiology Date/Time Source Procedure Growth Status 04/14/19 12:45 Blood Blood Culture - Preliminary NO GROWTH AFTER 24 HOURS Resulted 04/14/19 12:30 Blood Blood Culture - Preliminary NO GROWTH AFTER 24 HOURS Resulted 04/15/19 21:40 Sputum Gram Stain - Final Resulted 04/15/19 21:40 Sputum Sputum Culture Pending Resulted 04/14/19 11:25 Urine,Random Urine Culture - Final NO GROWTH AFTER 48 HOURS Complete Laboratory Tests Test 04/16/19 04:00 White Blood Count 7.4 K/UL (4.8-10.8) Red Blood Count 2.97 M/UL (4.70-6.10) L Hemoglobin 8.5 G/DL (14.2-18.0) L Hematocrit 25.4 % (42.0-52.0) L Mean Corpuscular Volume 85 FL (80-99) Mean Corpuscular Hemoglobin 28.8 PG (27.0-31.0) Mean Corpuscular Hemoglobin Concent 33.7 G/DL (32.0-36.0) Red Cell Distribution Width 16.2 % (11.6-14.8) H Platelet Count 138 K/UL (150-450) L Mean Platelet Volume 4.8 FL (6.5-10.1) L Neutrophils (%) (Auto) 83.4 % (45.0-75.0) H Lymphocytes (%) (Auto) 8.3 % (20.0-45.0) L Monocytes (%) (Auto) 4.5 % (1.0-10.0) Eosinophils (%) (Auto) 3.5 % (0.0-3.0) H Basophils (%) (Auto) 0.3 % (0.0-2.0) Sodium Level 144 MMOL/L (136-145) Potassium Level 3.8 MMOL/L (3.5-5.1) Chloride Level 111 MMOL/L (98-107) H Carbon Dioxide Level 27 MMOL/L (21-32) Anion Gap 6 mmol/L (5-15) Blood Urea Nitrogen 17 mg/dL (7-18) Creatinine 1.3 MG/DL (0.55-1.30) Estimat Glomerular Filtration Rate > 60 mL/min (>60) Glucose Level 96 MG/DL (74-106) Calcium Level 10.8 MG/DL (8.5-10.1) H Total Bilirubin 0.3 MG/DL (0.2-1.0) Aspartate Amino Transf (AST/SGOT) 61 U/L (15-37) H Alanine Aminotransferase (ALT/SGPT) 16 U/L (12-78) Alkaline Phosphatase 75 U/L (46-116) Total Protein 5.9 G/DL (6.4-8.2) L Albumin 1.8 G/DL (3.4-5.0) L Globulin 4.1 g/dL Albumin/Globulin Ratio 0.4 (1.0-2.7) L Current Medications Medications (Trade) Dose Ordered Sig/[place] Route PRN Reason Start Time Stop Time Status Last Admin Dose Admin Calcitonin Tennyson (Miacalcin) 1 sprays DAILY NASAL 04/14/19 09:00 05/10/19 13:29 04/16/19 08:32 Cefepime HCl 1 gm/ Dextrose 55 ml @ 110 mls/hr DAILY IVPB 04/16/19 09:00 04/21/19 08:59 04/16/19 08:32 Chlorhexidine Gluconate (Martha-Hex 2%) 1 applic DAILY@2000 TOPIC 04/13/19 20:00 05/06/19 19:59 04/15/19 20:25 Dextrose 1,000 ml @ 50 mls/hr Q20H IV 04/13/19 14:45 05/12/19 13:14 04/16/19 05:13 Enoxaparin Sodium (Lovenox) 30 mg DAILY SUBQ 04/14/19 09:00 05/04/19 08:59 04/16/19 08:40 Hydralazine HCl (Apresoline) 10 mg Q12HR NG 04/13/19 21:00 05/10/19 17:59 04/15/19 21:17 Hydralazine HCl (Apresoline) 10 mg Q4H PRN IV SBP > 170mmHg 04/13/19 15:00 05/08/19 14:59 Lansoprazole (Prevacid) 30 mg DAILY ORAL 04/14/19 09:00 05/13/19 08:59 04/16/19 08:31 Memantine (Namenda) 5 mg BID ORAL 04/13/19 18:00 05/04/19 17:59 04/16/19 08:31 Morphine Sulfate (Morphine Sulfate) 1 mg Q4H PRN IVP PAIN 4-10 04/13/19 18:00 04/20/19 17:59 04/15/19 22:24 Norepinephrine Bitartrate 4 mg/ Dextrose 250 ml @ 0 mls/hr Q24H IV 04/13/19 17:00 05/13/19 16:59 04/14/19 22:57 Tamsulosin HCl (Flomax) 0.4 mg BEDTIME ORAL 04/13/19 21:00 05/13/19 20:59 04/15/19 21:17 Vancomycin HCl (Vanco rx to dose) 1 ea DAILY PRN MISC Per rx protocol 04/14/19 11:15 05/14/19 11:14 Vancomycin/Sodium Chloride 275 ml @ 183.333 mls/hr Q24H IVPB 04/14/19 14:00 04/19/19 13:59 04/15/19 14:49 Rafia Nielson M.D. Apr 16, 2019 10:04
--- NOTE | 2019-04-16 10:12 | NUR ---
NURSE NOTES: Dr. Magallanes updated on patient tube feeding diet and progressing to goal of 55ml/hr, currently he is tolerating tube feeding at rate of 40ml/hr running through NG-tube.
--- NOTE | 2019-04-16 10:20 | NUR ---
NURSE NOTES: Dr. Acevedo updated on patient unsuccessful weaning attempts this morning since patient became tachycardia with noticeable deep work of breathing, we will attempt to wean this afternoon. no verbal orders given at this time.
--- NOTE | 2019-04-16 11:06 | Surgery Progress Note ---
Surgery Progress Note Subjective Procedure Performed right femoral central venous catheter insertion Additional Comments tolerating tube feeds at 40cc/hr comfortable on vent not able to wean today . became tachy Objective Last 24 Hour Vital Signs Date Time Temp Pulse Resp B/P (MAP) Pulse Ox O2 Delivery O2 Flow Rate FiO2 04/16/19 10:38 111 21 50 04/16/19 10:00 102 15 101/64 (76) 100 04/16/19 09:00 100 11 98/64 (75) 100 04/16/19 08:43 107 20 40 40 04/16/19 08:42 100 04/16/19 08:33 97/57 04/16/19 08:00 97.8 97 18 90/63 (72) 100 04/16/19 08:00 50 04/16/19 08:00 103 04/16/19 07:56 Mechanical Ventilator 04/16/19 07:00 100 20 99/70 (80) 100 04/16/19 06:58 99 20 50 04/16/19 06:00 103 20 99/68 (78) 100 04/16/19 05:00 98 23 98/66 (77) 100 04/16/19 04:55 100 17 50 04/16/19 04:00 100 04/16/19 04:00 Mechanical Ventilator Mechanical Ventilator 04/16/19 04:00 50 04/16/19 04:00 97.8 99 21 102/61 (75) 100 04/16/19 04:00 101 04/16/19 03:00 100 23 97/63 (74) 100 04/16/19 02:50 112 25 50 04/16/19 02:00 99 22 102/68 (79) 04/16/19 01:30 107 19 107/68 (81) 100 04/16/19 01:16 103 20 50 04/16/19 01:00 104 18 106/66 (79) 100 04/16/19 00:30 104 21 108/71 (83) 100 04/16/19 00:00 101 04/16/19 00:00 98.0 99 19 99/65 (76) 100 04/16/19 00:00 Mechanical Ventilator Mechanical Ventilator 04/15/19 23:30 102 21 101/63 (76) 100 04/15/19 23:00 100 20 97/64 (75) 100 04/15/19 22:50 104 21 50 04/15/19 22:30 104 23 92/62 (72) 100 04/15/19 22:19 118 25 130/74 (92) 100 04/15/19 22:00 111 21 111/72 (85) 100 04/15/19 21:17 113/70 04/15/19 21:06 117 12 50 04/15/19 21:00 111 22 117/72 (87) 100 04/15/19 20:00 Mechanical Ventilator Mechanical Ventilator 04/15/19 20:00 50 04/15/19 20:00 101 04/15/19 20:00 98.8 105 22 109/67 (81) 100 04/15/19 19:00 109 22 111/70 (84) 100 04/15/19 18:50 109 23 50 04/15/19 18:00 114 24 114/71 (85) 100 04/15/19 17:02 118 23 50 04/15/19 17:00 112 22 120/71 (87) 100 04/15/19 16:00 111 22 119/75 (90) 100 04/15/19 16:00 50 04/15/19 16:00 Mechanical Ventilator Mechanical Ventilator 04/15/19 16:00 111 04/15/19 15:49 113 22 50 04/15/19 15:00 114 22 146/88 (107) 100 04/15/19 14:00 111 22 115/73 (87) 100 04/15/19 13:02 121 24 50 04/15/19 13:00 124 23 130/86 (101) 100 04/15/19 12:00 50 04/15/19 12:00 Mechanical Ventilator Mechanical Ventilator 04/15/19 12:00 99.0 97 14 109/70 (83) 100 04/15/19 12:00 97 I&O Intake and Output 04/15/19 04/16/19 19:00 07:00 Intake Total 1381.666 ml 925 ml Output Total 1 ml Balance 1381.666 ml 924 ml Free Water 50 ml IV Total 1301.666 ml 550 ml Tube Feeding 80 ml 325 ml Stool Total 1 ml # Voids 420 650 # Bowel Movements 1 3 Dressing: other Wound: other Drains: other Cardiovascular: RSR Respiratory: decreased breath sounds Abdomen: soft, present bowel sounds, non-distended Extremities: no tenderness, no cyanosis, other Laboratory Tests Test 04/16/19 04:00 04/16/19 10:55 White Blood Count 7.4 K/UL (4.8-10.8) Red Blood Count 2.97 M/UL (4.70-6.10) L Hemoglobin 8.5 G/DL (14.2-18.0) L Hematocrit 25.4 % (42.0-52.0) L Mean Corpuscular Volume 85 FL (80-99) Mean Corpuscular Hemoglobin 28.8 PG (27.0-31.0) Mean Corpuscular Hemoglobin Concent 33.7 G/DL (32.0-36.0) Red Cell Distribution Width 16.2 % (11.6-14.8) H Platelet Count 138 K/UL (150-450) L Mean Platelet Volume 4.8 FL (6.5-10.1) L Neutrophils (%) (Auto) 83.4 % (45.0-75.0) H Lymphocytes (%) (Auto) 8.3 % (20.0-45.0) L Monocytes (%) (Auto) 4.5 % (1.0-10.0) Eosinophils (%) (Auto) 3.5 % (0.0-3.0) H Basophils (%) (Auto) 0.3 % (0.0-2.0) Sodium Level 144 MMOL/L (136-145) Potassium Level 3.8 MMOL/L (3.5-5.1) Chloride Level 111 MMOL/L (98-107) H Carbon Dioxide Level 27 MMOL/L (21-32) Anion Gap 6 mmol/L (5-15) Blood Urea Nitrogen 17 mg/dL (7-18) Creatinine 1.3 MG/DL (0.55-1.30) Estimat Glomerular Filtration Rate > 60 mL/min (>60) Glucose Level 96 MG/DL (74-106) Calcium Level 10.8 MG/DL (8.5-10.1) H Total Bilirubin 0.3 MG/DL (0.2-1.0) Aspartate Amino Transf (AST/SGOT) 61 U/L (15-37) H Alanine Aminotransferase (ALT/SGPT) 16 U/L (12-78) Alkaline Phosphatase 75 U/L (46-116) Total Protein 5.9 G/DL (6.4-8.2) L Albumin 1.8 G/DL (3.4-5.0) L Globulin 4.1 g/dL Albumin/Globulin Ratio 0.4 (1.0-2.7) L Arterial Blood pH 7.252 (7.350-7.450) Arterial Blood Partial Pressure CO2 63.1 mmHg (35.0-45.0) *H Arterial Blood Partial Pressure O2 138.7 mmHg (75.0-100.0) H Arterial Blood HCO3 27.2 mmol/L (22.0-26.0) H Arterial Blood Oxygen Saturation 98.5 % (95-100) Arterial Blood Base Excess -0.6 (-2-2) Antonio Test Positive Plan Problems: (1) Cardiac arrest Assessment & Plan: Acute deterioration Cardiovascular lopez ACLS required for resuscitation Still full code Hypotensive intensive care unit requiring a new central venous catheter see note Antibiotics as per infectious caries Hold tube feeds Vent management cont current treatment improving wean vent possible extubate soon trend labs resume tube feeds will follow with fermin thank you (2) Stage III adenocarcinoma of prostate Assessment & Plan: patient with state 3 prostate cancer pending treatment at [facility] unlikely related to acute cardiac arrest this am abd exam with mild distention pending KUB no acute surgical intervention planned onc input thank you will follow with Jay Conrad Apr 16, 2019 11:06
--- NOTE | 2019-04-16 11:57 | NUR ---
NURSE NOTES: Dr. Mathews made aware of ABG results, orders to have patient placed on AC of 10 and continue to monitor. no further orders given at this time.
--- NOTE | 2019-04-16 12:02 | NUR ---
NURSE NOTES: Amy called and updated on patient weaning progress and plan of care from physician, will call at a later time for another update.
--- NOTE | 2019-04-16 13:25 | Nephrology Progress Note ---
Assessment/Plan Status: unchanged Assessment/Plan: A/P 1. LETA. secondary to dehydration from hypercalcemia/ischemic ATN post arrest - Cr improved to 1.3 2. Prostate cancer with tremendously elevated PSA - Per Hematology/Oncology. 3. Hypokalemia. being replaced prn 4. Sepsis and UTI per Infectious Disease mgmt 5. Hypernatremia- resolved Dc D5W 6- Hypercalcemia of malignancy- Calcitonin. add one dose of pamidrinate - Ca down to 10.3 Subjective Date patient seen: Apr 16, 2019 Time patient seen: 13:23 ROS Limited/Unobtainable: Yes Allergies: Coded Allergies: No Known Allergies (Unverified , 04/03/19) Subjective Patient awake and alert, intubated off IV pressor Objective Last 24 Hour Vital Signs Date Time Temp Pulse Resp B/P (MAP) Pulse Ox O2 Delivery O2 Flow Rate FiO2 04/16/19 12:34 94 11 40 04/16/19 12:15 40 04/16/19 12:00 40 04/16/19 12:00 97.3 100 23 101/71 (81) 100 04/16/19 12:00 Mechanical Ventilator 04/16/19 12:00 102 04/16/19 11:00 105 24 101/64 (76) 100 04/16/19 10:38 111 21 40 04/16/19 10:00 102 15 101/64 (76) 100 04/16/19 09:00 100 11 98/64 (75) 100 04/16/19 08:43 107 20 40 40 04/16/19 08:42 100 04/16/19 08:33 97/57 04/16/19 08:00 97.8 97 18 90/63 (72) 100 04/16/19 08:00 50 04/16/19 08:00 103 04/16/19 07:56 Mechanical Ventilator 04/16/19 07:00 100 20 99/70 (80) 100 04/16/19 06:58 99 20 50 04/16/19 06:00 103 20 99/68 (78) 100 04/16/19 05:00 98 23 98/66 (77) 100 04/16/19 04:55 100 17 50 04/16/19 04:00 100 04/16/19 04:00 Mechanical Ventilator Mechanical Ventilator 04/16/19 04:00 50 04/16/19 04:00 97.8 99 21 102/61 (75) 100 04/16/19 04:00 101 04/16/19 03:00 100 23 97/63 (74) 100 04/16/19 02:50 112 25 50 04/16/19 02:00 99 22 102/68 (79) 04/16/19 01:30 107 19 107/68 (81) 100 04/16/19 01:16 103 20 50 04/16/19 01:00 104 18 106/66 (79) 100 04/16/19 00:30 104 21 108/71 (83) 100 04/16/19 00:00 101 04/16/19 00:00 98.0 99 19 99/65 (76) 100 04/16/19 00:00 Mechanical Ventilator Mechanical Ventilator 04/15/19 23:30 102 21 101/63 (76) 100 04/15/19 23:00 100 20 97/64 (75) 100 04/15/19 22:50 104 21 50 04/15/19 22:30 104 23 92/62 (72) 100 04/15/19 22:19 118 25 130/74 (92) 100 04/15/19 22:00 111 21 111/72 (85) 100 04/15/19 21:17 113/70 04/15/19 21:06 117 12 50 04/15/19 21:00 111 22 117/72 (87) 100 04/15/19 20:00 Mechanical Ventilator Mechanical Ventilator 04/15/19 20:00 50 04/15/19 20:00 101 04/15/19 20:00 98.8 105 22 109/67 (81) 100 04/15/19 19:00 109 22 111/70 (84) 100 04/15/19 18:50 109 23 50 04/15/19 18:00 114 24 114/71 (85) 100 04/15/19 17:02 118 23 50 04/15/19 17:00 112 22 120/71 (87) 100 04/15/19 16:00 111 22 119/75 (90) 100 04/15/19 16:00 50 04/15/19 16:00 Mechanical Ventilator Mechanical Ventilator 04/15/19 16:00 111 04/15/19 15:49 113 22 50 04/15/19 15:00 114 22 146/88 (107) 100 04/15/19 14:00 111 22 115/73 (87) 100 Intake and Output 04/15/19 04/16/19 19:00 07:00 Intake Total 1381.666 ml 925 ml Output Total 1 ml Balance 1381.666 ml 924 ml Free Water 50 ml IV Total 1301.666 ml 550 ml Tube Feeding 80 ml 325 ml Stool Total 1 ml # Voids 420 650 # Bowel Movements 1 3 Laboratory Tests 04/16/19 04:00: White Blood Count 7.4, Red Blood Count 2.97L, Hemoglobin 8.5L, Hematocrit 25.4L , Mean Corpuscular Volume 85, Mean Corpuscular Hemoglobin 28.8, Mean Corpuscular Hemoglobin Concent 33.7, Red Cell Distribution Width 16.2H, Platelet Count 138L, Mean Platelet Volume 4.8L, Neutrophils (%) (Auto) 83.4H, Lymphocytes (%) (Auto) 8.3L, Monocytes (%) (Auto) 4.5, Eosinophils (%) (Auto) 3.5H, Basophils (%) (Auto) 0.3, Sodium Level 144, Potassium Level 3.8, Chloride Level 111H, Carbon Dioxide Level 27, Anion Gap 6, Blood Urea Nitrogen 17, Creatinine 1.3, Estimat Glomerular Filtration Rate > 60, Glucose Level 96, Calcium Level 10.8H, Total Bilirubin 0.3, Aspartate Amino Transf (AST/SGOT) 61H , Alanine Aminotransferase (ALT/SGPT) 16, Alkaline Phosphatase 75, Total Protein 5.9L, Albumin 1.8L, Globulin 4.1, Albumin/Globulin Ratio 0.4L 04/16/19 10:55: Arterial Blood pH 7.252L, Arterial Blood Partial Pressure CO2 63.1*H, Arterial Blood Partial Pressure O2 138.7H, Arterial Blood HCO3 27.2H, Arterial Blood Oxygen Saturation 98.5, Arterial Blood Base Excess -0.6, Antonio Test Positive Height (Feet): 5 Height (Inches): 7.00 Weight (Pounds): 168 General Appearance: no apparent distress, alert EENT: normal ENT inspection Neck: normal alignment, supple Cardiovascular: normal rate, regular rhythm Respiratory/Chest: rhonchi - bilaterally Abdomen: non tender, soft Edema: no edema noted Arm (L), no edema noted Arm (R), no edema noted Leg (L), no edema noted Leg (R), no edema noted Pedal (L), no edema noted Pedal (R), no edema noted Generalized Carlos White MD Apr 16, 2019 13:25
[2019-04-16] MEDS: Vancomycin 1.25gm/NS Premix IVPB SCH (14:00)
--- NOTE | 2019-04-16 15:30 | Progress Note ---
DATE: 04/16/2019 SUBJECTIVE: This is a 73-year-old male patient with a history of generalized weakness. This patient is confused, disorganized, and mood labile. He has got no logical plan for his own self-care. He has got feelings of helplessness, hopelessness, low energy, poor appetite, and loss of interest in activity. That is why, this patient does require inpatient treatment at this time. MENTAL STATUS EXAMINATION: This is a 73-year-old male. Appearance is disheveled. Attitude, irritable and agitated. Affect, guarded and restricted. Intellect, poor. Mood, depressed and anxious. Motor activity, psychomotor agitation. Attention span is poor. Orientation x2. Speech is low volume and slurred. Thought process, disorganized and illogical. Insight and judgment is poor. DIAGNOSIS: Major depressive disorder, mild, recurrent with psychotic features. PLAN: Continue to treat this patient with medications to stabilize his mood. A 20 minutes of insight-oriented psychotherapy. The patient is now in ICU, has extreme altered mental status and confusion. We will continue working with this patient to improve his cognition and insight-oriented psychotherapy for 20 minutes to help him recognize his medical and psychiatric conditions to have better impulse control and behavior in the ICU. Chart reviewed. Discussed with staff. Seen and assessed at bedside. Cherise Palma M.D. DR: ACE JOB#: [id number] CC:
--- NOTE | 2019-04-16 16:38 | Cardiac Electrophysiology PN ---
Assessment/Plan Assessment/Plan 1. Status post noninfarctional 2 separate juan antonio arrest with asystole. Both episodes happened in the setting of respiratory failure and off the Vent No evidence of ventricular tachycardia or ventricular fibrillation. Off any GARCÍA or AVN blockerEF 65%. All 3 troponins were less than 0.1 2. Respiratory failure, extubated 04/08/19 and reintubated 04/13/19 3. History of stage III prostate cancer, followed by Dr. Monroy and Dr Root. Morales was changed. Follows up usually at [facility] 4. Shock. Off Levophed on iv Abx. 5. Hypercalcemia due to prostate cancer. 6. Hypernatremia. On IV fluids D5w at 50 cc/hr. 7. Anemia, s/p PRBC 04/08/19 DW RN Subjective Subjective Intubated in ICU on the Vent and off Levophed. No juan antonio while on the Vent Objective Last 24 Hour Vital Signs Date Time Temp Pulse Resp B/P (MAP) Pulse Ox O2 Delivery O2 Flow Rate FiO2 04/16/19 16:00 40 04/16/19 16:00 97.7 101 13 103/67 (79) 100 04/16/19 15:00 103 10 109/68 (82) 100 04/16/19 14:36 102 12 40 04/16/19 14:00 95 11 110/58 (75) 100 04/16/19 13:00 101 14 112/85 (94) 100 04/16/19 12:34 94 11 40 04/16/19 12:15 40 04/16/19 12:00 40 04/16/19 12:00 97.3 100 23 101/71 (81) 100 04/16/19 12:00 Mechanical Ventilator 04/16/19 12:00 102 04/16/19 11:00 105 24 101/64 (76) 100 04/16/19 10:38 111 21 40 04/16/19 10:00 102 15 101/64 (76) 100 04/16/19 09:00 100 11 98/64 (75) 100 04/16/19 08:43 107 20 40 40 04/16/19 08:42 100 04/16/19 08:33 97/57 04/16/19 08:00 97.8 97 18 90/63 (72) 100 04/16/19 08:00 50 04/16/19 08:00 103 04/16/19 07:56 Mechanical Ventilator 04/16/19 07:00 100 20 99/70 (80) 100 04/16/19 06:58 99 20 50 04/16/19 06:00 103 20 99/68 (78) 100 04/16/19 05:00 98 23 98/66 (77) 100 04/16/19 04:55 100 17 50 04/16/19 04:00 100 04/16/19 04:00 Mechanical Ventilator Mechanical Ventilator 04/16/19 04:00 50 04/16/19 04:00 97.8 99 21 102/61 (75) 100 04/16/19 04:00 101 04/16/19 03:00 100 23 97/63 (74) 100 04/16/19 02:50 112 25 50 04/16/19 02:00 99 22 102/68 (79) 04/16/19 01:30 107 19 107/68 (81) 100 04/16/19 01:16 103 20 50 04/16/19 01:00 104 18 106/66 (79) 100 04/16/19 00:30 104 21 108/71 (83) 100 04/16/19 00:00 101 04/16/19 00:00 98.0 99 19 99/65 (76) 100 04/16/19 00:00 Mechanical Ventilator Mechanical Ventilator 04/15/19 23:30 102 21 101/63 (76) 100 04/15/19 23:00 100 20 97/64 (75) 100 04/15/19 22:50 104 21 50 04/15/19 22:30 104 23 92/62 (72) 100 04/15/19 22:19 118 25 130/74 (92) 100 04/15/19 22:00 111 21 111/72 (85) 100 04/15/19 21:17 113/70 04/15/19 21:06 117 12 50 04/15/19 21:00 111 22 117/72 (87) 100 04/15/19 20:00 Mechanical Ventilator Mechanical Ventilator 04/15/19 20:00 50 04/15/19 20:00 101 04/15/19 20:00 98.8 105 22 109/67 (81) 100 04/15/19 19:00 109 22 111/70 (84) 100 04/15/19 18:50 109 23 50 04/15/19 18:00 114 24 114/71 (85) 100 04/15/19 17:02 118 23 50 04/15/19 17:00 112 22 120/71 (87) 100 Intake and Output 04/15/19 04/16/19 19:00 07:00 Intake Total 1381.666 ml 925 ml Output Total 1 ml Balance 1381.666 ml 924 ml Free Water 50 ml IV Total 1301.666 ml 550 ml Tube Feeding 80 ml 325 ml Stool Total 1 ml # Voids 420 650 # Bowel Movements 1 3 Laboratory Tests Test 04/16/19 04:00 04/16/19 10:55 White Blood Count 7.4 K/UL (4.8-10.8) Red Blood Count 2.97 M/UL (4.70-6.10) L Hemoglobin 8.5 G/DL (14.2-18.0) L Hematocrit 25.4 % (42.0-52.0) L Mean Corpuscular Volume 85 FL (80-99) Mean Corpuscular Hemoglobin 28.8 PG (27.0-31.0) Mean Corpuscular Hemoglobin Concent 33.7 G/DL (32.0-36.0) Red Cell Distribution Width 16.2 % (11.6-14.8) H Platelet Count 138 K/UL (150-450) L Mean Platelet Volume 4.8 FL (6.5-10.1) L Neutrophils (%) (Auto) 83.4 % (45.0-75.0) H Lymphocytes (%) (Auto) 8.3 % (20.0-45.0) L Monocytes (%) (Auto) 4.5 % (1.0-10.0) Eosinophils (%) (Auto) 3.5 % (0.0-3.0) H Basophils (%) (Auto) 0.3 % (0.0-2.0) Sodium Level 144 MMOL/L (136-145) Potassium Level 3.8 MMOL/L (3.5-5.1) Chloride Level 111 MMOL/L (98-107) H Carbon Dioxide Level 27 MMOL/L (21-32) Anion Gap 6 mmol/L (5-15) Blood Urea Nitrogen 17 mg/dL (7-18) Creatinine 1.3 MG/DL (0.55-1.30) Estimat Glomerular Filtration Rate > 60 mL/min (>60) Glucose Level 96 MG/DL (74-106) Calcium Level 10.8 MG/DL (8.5-10.1) H Total Bilirubin 0.3 MG/DL (0.2-1.0) Aspartate Amino Transf (AST/SGOT) 61 U/L (15-37) H Alanine Aminotransferase (ALT/SGPT) 16 U/L (12-78) Alkaline Phosphatase 75 U/L (46-116) Total Protein 5.9 G/DL (6.4-8.2) L Albumin 1.8 G/DL (3.4-5.0) L Globulin 4.1 g/dL Albumin/Globulin Ratio 0.4 (1.0-2.7) L Arterial Blood pH 7.252 (7.350-7.450) Arterial Blood Partial Pressure CO2 63.1 mmHg (35.0-45.0) *H Arterial Blood Partial Pressure O2 138.7 mmHg (75.0-100.0) H Arterial Blood HCO3 27.2 mmol/L (22.0-26.0) H Arterial Blood Oxygen Saturation 98.5 % (95-100) Arterial Blood Base Excess -0.6 (-2-2) Antonio Test Positive Microbiology Date/Time Source Procedure Growth Status 04/14/19 12:45 Blood Blood Culture - Preliminary NO GROWTH AFTER 24 HOURS Resulted 04/14/19 12:30 Blood Blood Culture - Preliminary NO GROWTH AFTER 24 HOURS Resulted 04/15/19 21:40 Sputum Gram Stain - Final Resulted 04/15/19 21:40 Sputum Sputum Culture Pending Resulted 04/14/19 11:25 Urine,Random Urine Culture - Final NO GROWTH AFTER 48 HOURS Complete Objective HEENT: No JVD. Orally intubated LUNGS: Coarse rhonchi. CARDIOVASCULAR: Regular S1 and S2 ABDOMEN: Soft and nondistended. EXTREMITIES: No pitting edema. Nain Cortez MD Apr 16, 2019 16:38
--- NOTE | 2019-04-16 16:59 | NUR ---
RESPIRATORY NOTE: at 1215, placed pt on AC mode per MD order. RN aware
--- NOTE | 2019-04-16 17:22 | NUR ---
CASE MANAGEMENT: REVIEW 04/16/2019 SI:Status post noninfarctional 2 separate juan antonio arrest with asystole. UTI (urinary tract infection). T 97.7 HR 101 RR 13 B/P 103/67 SATS 100% ON MECH VENT FIO2 40 LABS: CL 111 CA 10.8 AST 61 ABGs PH 7.252 PCO2 63.1 PO2 138.7 HCO3 27.2 IS:FLOMAX PO QHS NAMENDA PO BID CEFEPIME IV QD HYDRALAZINE NG Q12H LEVOPHED PER PARAMETERS VANCO IV Q24H ICU
--- NOTE | 2019-04-16 17:50 | NUR ---
NURSE NOTES: Tube feeding increased to 50ml/hr, residual noted to be at 5ml.
--- NOTE | 2019-04-16 17:51 | Pulmonology Progress Note ---
Assessment/Plan Assessment/Plan IMPRESSION: 1. Status post asystolic cardiac arrest. Again on 04/13/19 2. Respiratory failure, re-intubated 3. Altered mental status. 4. Hypernatremia. Corrected. 5. Hypokalemia . Corrected. 6. History of COPD. 7. Prostate CA. DISCUSSION: 1. Discussed with cardiology and PMD 2. Discussed with daughter in law 3. Poor prognosis 4. continue weaning efforts Ganesh Mathews M.D. Subjective Interval Events: unable to wean. Constitutional: Reports: no symptoms HEENT: Repors: no symptoms Respiratory: Reports: no symptoms Cardiovascular: Reports: no symptoms Allergies: Coded Allergies: No Known Allergies (Unverified , 04/03/19) Objective Last 24 Hour Vital Signs Date Time Temp Pulse Resp B/P (MAP) Pulse Ox O2 Delivery O2 Flow Rate FiO2 04/16/19 17:00 108/66 04/16/19 17:00 104 19 108/66 (80) 100 04/16/19 16:58 96 13 40 04/16/19 16:00 Mechanical Ventilator 04/16/19 16:00 40 04/16/19 16:00 97.7 101 13 103/67 (79) 100 04/16/19 16:00 103 04/16/19 15:00 103 10 109/68 (82) 100 04/16/19 14:36 102 12 40 04/16/19 14:00 95 11 110/58 (75) 100 04/16/19 13:00 101 14 112/85 (94) 100 04/16/19 12:34 94 11 40 04/16/19 12:15 40 04/16/19 12:00 40 04/16/19 12:00 97.3 100 23 101/71 (81) 100 04/16/19 12:00 Mechanical Ventilator 04/16/19 12:00 102 04/16/19 11:00 105 24 101/64 (76) 100 04/16/19 10:38 111 21 40 04/16/19 10:00 102 15 101/64 (76) 100 04/16/19 09:00 100 11 98/64 (75) 100 04/16/19 08:43 107 20 40 40 04/16/19 08:42 100 04/16/19 08:33 97/57 04/16/19 08:00 97.8 97 18 90/63 (72) 100 04/16/19 08:00 50 04/16/19 08:00 103 04/16/19 07:56 Mechanical Ventilator 04/16/19 07:00 100 20 99/70 (80) 100 04/16/19 06:58 99 20 50 04/16/19 06:00 103 20 99/68 (78) 100 04/16/19 05:00 98 23 98/66 (77) 100 04/16/19 04:55 100 17 50 04/16/19 04:00 100 04/16/19 04:00 Mechanical Ventilator Mechanical Ventilator 04/16/19 04:00 50 04/16/19 04:00 97.8 99 21 102/61 (75) 100 04/16/19 04:00 101 04/16/19 03:00 100 23 97/63 (74) 100 04/16/19 02:50 112 25 50 04/16/19 02:00 99 22 102/68 (79) 04/16/19 01:30 107 19 107/68 (81) 100 04/16/19 01:16 103 20 50 04/16/19 01:00 104 18 106/66 (79) 100 04/16/19 00:30 104 21 108/71 (83) 100 04/16/19 00:00 101 04/16/19 00:00 98.0 99 19 99/65 (76) 100 04/16/19 00:00 Mechanical Ventilator Mechanical Ventilator 04/15/19 23:30 102 21 101/63 (76) 100 04/15/19 23:00 100 20 97/64 (75) 100 04/15/19 22:50 104 21 50 04/15/19 22:30 104 23 92/62 (72) 100 04/15/19 22:19 118 25 130/74 (92) 100 04/15/19 22:00 111 21 111/72 (85) 100 04/15/19 21:17 113/70 04/15/19 21:06 117 12 50 04/15/19 21:00 111 22 117/72 (87) 100 04/15/19 20:00 Mechanical Ventilator Mechanical Ventilator 04/15/19 20:00 50 04/15/19 20:00 101 04/15/19 20:00 98.8 105 22 109/67 (81) 100 04/15/19 19:00 109 22 111/70 (84) 100 04/15/19 18:50 109 23 50 04/15/19 18:00 114 24 114/71 (85) 100 Intake and Output 04/15/19 04/16/19 19:00 07:00 Intake Total 1381.666 ml 925 ml Output Total 1 ml Balance 1381.666 ml 924 ml Free Water 50 ml IV Total 1301.666 ml 550 ml Tube Feeding 80 ml 325 ml Stool Total 1 ml # Voids 420 650 # Bowel Movements 1 3 General Appearance: no acute distress HEENT: normocephalic Respiratory/Chest: chest wall non-tender, lungs clear Cardiovascular: normal peripheral pulses Abdomen: normal bowel sounds Microbiology Date/Time Source Procedure Growth Status 04/14/19 12:45 Blood Blood Culture - Preliminary NO GROWTH AFTER 24 HOURS Resulted 04/14/19 12:30 Blood Blood Culture - Preliminary NO GROWTH AFTER 24 HOURS Resulted 04/15/19 21:40 Sputum Gram Stain - Final Resulted 04/15/19 21:40 Sputum Sputum Culture Pending Resulted 04/14/19 11:25 Urine,Random Urine Culture - Final NO GROWTH AFTER 48 HOURS Complete Laboratory Tests 04/16/19 04:00: White Blood Count 7.4, Red Blood Count 2.97L, Hemoglobin 8.5L, Hematocrit 25.4L , Mean Corpuscular Volume 85, Mean Corpuscular Hemoglobin 28.8, Mean Corpuscular Hemoglobin Concent 33.7, Red Cell Distribution Width 16.2H, Platelet Count 138L, Mean Platelet Volume 4.8L, Neutrophils (%) (Auto) 83.4H, Lymphocytes (%) (Auto) 8.3L, Monocytes (%) (Auto) 4.5, Eosinophils (%) (Auto) 3.5H, Basophils (%) (Auto) 0.3, Sodium Level 144, Potassium Level 3.8, Chloride Level 111H, Carbon Dioxide Level 27, Anion Gap 6, Blood Urea Nitrogen 17, Creatinine 1.3, Estimat Glomerular Filtration Rate > 60, Glucose Level 96, Calcium Level 10.8H, Total Bilirubin 0.3, Aspartate Amino Transf (AST/SGOT) 61H , Alanine Aminotransferase (ALT/SGPT) 16, Alkaline Phosphatase 75, Total Protein 5.9L, Albumin 1.8L, Globulin 4.1, Albumin/Globulin Ratio 0.4L 04/16/19 10:55: Arterial Blood pH 7.252L, Arterial Blood Partial Pressure CO2 63.1*H, Arterial Blood Partial Pressure O2 138.7H, Arterial Blood HCO3 27.2H, Arterial Blood Oxygen Saturation 98.5, Arterial Blood Base Excess -0.6, Antonio Test Positive Current Medications Medications (Trade) Dose Ordered Sig/La Nena Route PRN Reason Start Time Stop Time Status Last Admin Dose Admin Calcitonin [place] (Miacalcin) 1 sprays DAILY NASAL 04/14/19 09:00 05/10/19 13:29 04/16/19 08:32 Cefepime HCl 1 gm/ Dextrose 55 ml @ 110 mls/hr DAILY IVPB 04/16/19 09:00 04/21/19 08:59 04/16/19 08:32 Chlorhexidine Gluconate (Martha-Hex 2%) 1 applic DAILY@2000 TOPIC 04/13/19 20:00 05/06/19 19:59 04/15/19 20:25 Enoxaparin Sodium (Lovenox) 30 mg DAILY SUBQ 04/14/19 09:00 05/04/19 08:59 04/16/19 08:40 Hydralazine HCl (Apresoline) 10 mg Q12HR NG 04/13/19 21:00 05/10/19 17:59 04/15/19 21:17 Hydralazine HCl (Apresoline) 10 mg Q4H PRN IV SBP > 170mmHg 04/13/19 15:00 05/08/19 14:59 Lansoprazole (Prevacid) 30 mg DAILY ORAL 04/14/19 09:00 05/13/19 08:59 04/16/19 08:31 Memantine (Namenda) 5 mg BID ORAL 04/13/19 18:00 05/04/19 17:59 04/16/19 17:29 Morphine Sulfate (Morphine Sulfate) 1 mg Q4H PRN IVP PAIN 4-10 04/13/19 18:00 04/20/19 17:59 04/15/19 22:24 Norepinephrine Bitartrate 4 mg/ Dextrose 250 ml @ 0 mls/hr Q24H IV 04/13/19 17:00 05/13/19 16:59 04/14/19 22:57 Tamsulosin HCl (Flomax) 0.4 mg BEDTIME ORAL 04/13/19 21:00 05/13/19 20:59 04/15/19 21:17 Vancomycin HCl (Vanco rx to dose) 1 ea DAILY PRN MISC Per rx protocol 04/14/19 11:15 05/14/19 11:14 Vancomycin/Sodium Chloride 275 ml @ 183.333 mls/hr Q24H IVPB 04/14/19 14:00 04/19/19 13:59 04/16/19 14:00 Ganesh Mathews MD Apr 16, 2019 17:51
--- NOTE | 2019-04-16 19:35 | NUR ---
HAND-OFF: Report given to BLANCA Walsh.
[2019-04-16] MEDS: Dyna-Hex 2% Top Sol 2oz TOPIC SCH (20:42)
[2019-04-16] MEDS: Tamsulosin 0.4mg cap ORAL SCH (20:43)
--- NOTE | 2019-04-16 21:14 | General Progress Note ---
Assessment/Plan Problem List: (1) UTI (urinary tract infection) ICD Codes: N39.0 - Urinary tract infection, site not specified SNOMED: 65428919 (2) Weak ICD Codes: R53.1 - Weakness SNOMED: 64077360 (3) Anemia ICD Codes: D64.9 - Anemia, unspecified SNOMED: 951164342 (4) Dehydration ICD Codes: E86.0 - Dehydration SNOMED: 98895919, 14308068 (5) Episode of generalized weakness ICD Codes: R53.1 - Weakness SNOMED: 73327205 (6) Stage III adenocarcinoma of prostate ICD Codes: C61 - Malignant neoplasm of prostate SNOMED: 675389113, 04289575 Status: unchanged Assessment/Plan: poor prognosis anemia weak reviewed chart and labs afebrile not improving Subjective ROS Limited/Unobtainable: Yes Allergies: Coded Allergies: No Known Allergies (Unverified , 04/03/19) Objective Last 24 Hour Vital Signs Date Time Temp Pulse Resp B/P (MAP) Pulse Ox O2 Delivery O2 Flow Rate FiO2 04/16/19 20:43 102/66 04/16/19 19:09 101 12 40 04/16/19 19:00 103 21 98/72 (81) 100 04/16/19 18:00 105 22 90/60 (70) 100 04/16/19 17:00 108/66 04/16/19 17:00 104 19 108/66 (80) 100 04/16/19 16:58 96 13 40 04/16/19 16:00 Mechanical Ventilator 04/16/19 16:00 40 04/16/19 16:00 97.7 101 13 103/67 (79) 100 04/16/19 16:00 103 04/16/19 15:00 103 10 109/68 (82) 100 04/16/19 14:36 102 12 40 04/16/19 14:00 95 11 110/58 (75) 100 04/16/19 13:00 101 14 112/85 (94) 100 04/16/19 12:34 94 11 40 04/16/19 12:15 40 04/16/19 12:00 40 04/16/19 12:00 97.3 100 23 101/71 (81) 100 04/16/19 12:00 Mechanical Ventilator 04/16/19 12:00 102 04/16/19 11:00 105 24 101/64 (76) 100 04/16/19 10:38 111 21 40 04/16/19 10:00 102 15 101/64 (76) 100 04/16/19 09:00 100 11 98/64 (75) 100 04/16/19 08:43 107 20 40 40 04/16/19 08:42 100 04/16/19 08:33 97/57 04/16/19 08:00 97.8 97 18 90/63 (72) 100 04/16/19 08:00 50 04/16/19 08:00 103 04/16/19 07:56 Mechanical Ventilator 04/16/19 07:00 100 20 99/70 (80) 100 04/16/19 06:58 99 20 50 04/16/19 06:00 103 20 99/68 (78) 100 04/16/19 05:00 98 23 98/66 (77) 100 04/16/19 04:55 100 17 50 04/16/19 04:00 100 04/16/19 04:00 Mechanical Ventilator Mechanical Ventilator 04/16/19 04:00 50 04/16/19 04:00 97.8 99 21 102/61 (75) 100 04/16/19 04:00 101 04/16/19 03:00 100 23 97/63 (74) 100 04/16/19 02:50 112 25 50 04/16/19 02:00 99 22 102/68 (79) 04/16/19 01:30 107 19 107/68 (81) 100 04/16/19 01:16 103 20 50 04/16/19 01:00 104 18 106/66 (79) 100 04/16/19 00:30 104 21 108/71 (83) 100 04/16/19 00:00 101 04/16/19 00:00 98.0 99 19 99/65 (76) 100 04/16/19 00:00 Mechanical Ventilator Mechanical Ventilator 04/15/19 23:30 102 21 101/63 (76) 100 04/15/19 23:00 100 20 97/64 (75) 100 04/15/19 22:50 104 21 50 04/15/19 22:30 104 23 92/62 (72) 100 04/15/19 22:19 118 25 130/74 (92) 100 04/15/19 22:00 111 21 111/72 (85) 100 04/15/19 21:17 113/70 Intake and Output 04/15/19 04/16/19 19:00 07:00 Intake Total 1381.666 ml 925 ml Output Total 1 ml Balance 1381.666 ml 924 ml Free Water 50 ml IV Total 1301.666 ml 550 ml Tube Feeding 80 ml 325 ml Stool Total 1 ml # Voids 420 650 # Bowel Movements 1 3 Laboratory Tests 04/16/19 04:00: White Blood Count 7.4, Red Blood Count 2.97L, Hemoglobin 8.5L, Hematocrit 25.4L , Mean Corpuscular Volume 85, Mean Corpuscular Hemoglobin 28.8, Mean Corpuscular Hemoglobin Concent 33.7, Red Cell Distribution Width 16.2H, Platelet Count 138L, Mean Platelet Volume 4.8L, Neutrophils (%) (Auto) 83.4H, Lymphocytes (%) (Auto) 8.3L, Monocytes (%) (Auto) 4.5, Eosinophils (%) (Auto) 3.5H, Basophils (%) (Auto) 0.3, Sodium Level 144, Potassium Level 3.8, Chloride Level 111H, Carbon Dioxide Level 27, Anion Gap 6, Blood Urea Nitrogen 17, Creatinine 1.3, Estimat Glomerular Filtration Rate > 60, Glucose Level 96, Calcium Level 10.8H, Total Bilirubin 0.3, Aspartate Amino Transf (AST/SGOT) 61H , Alanine Aminotransferase (ALT/SGPT) 16, Alkaline Phosphatase 75, Total Protein 5.9L, Albumin 1.8L, Globulin 4.1, Albumin/Globulin Ratio 0.4L 04/16/19 10:55: Arterial Blood pH 7.252L, Arterial Blood Partial Pressure CO2 63.1*H, Arterial Blood Partial Pressure O2 138.7H, Arterial Blood HCO3 27.2H, Arterial Blood Oxygen Saturation 98.5, Arterial Blood Base Excess -0.6, Antonio Test Positive Height (Feet): 5 Height (Inches): 7.00 Weight (Pounds): 168 Cardiovascular: normal rate Respiratory/Chest: lungs clear Abdomen: soft Shay Oreilly MD Apr 16, 2019 21:14
[2019-04-16] MEDS: Morphine Sulfate 2mg/ml Inj(IV/IM USE ONLY) IVP PRN (21:25)
--- NOTE | 2019-04-16 21:26 | NUR ---
NURSE NOTES: Morphine 1 mg ivp given for pain FLACC 6
[2019-04-17] VITALS (24 sets, daily range): BP systolic 86–141; BP diastolic 57–79
[2019-04-17] MEDS: Morphine Sulfate 2mg/ml Inj(IV/IM USE ONLY) IVP PRN ×3 (03:16→14:18)
--- NOTE | 2019-04-17 03:16 | NUR ---
NURSE NOTES: Morphine 1mgf ivp was given due to pain FLACC 6
[2019-04-17 05:35] LABS: BASOPHILS % (AUTO) 0.4 % (0.0-2.0); EOSINOPHILS % (AUTO) 3.5 % (0.0-3.0); HEMATOCRIT 24.2 % (42.0-52.0); HEMOGLOBIN 8.1 G/DL (14.2-18.0); LYMPHOCYTES % (AUTO) 8.1 % (20.0-45.0); MEAN CORPUSCULAR VOLUME 85 FL (80-99); MONOCYTES % (AUTO) 5.3 % (1.0-10.0); NEUTROPHILS % (AUTO) 82.7 % (45.0-75.0); PLATELET COUNT 160 K/UL (150-450); RED BLOOD COUNT 2.86 M/UL (4.70-6.10); RED CELL DISTRIBUTION WIDTH 15.7 % (11.6-14.8); WHITE BLOOD COUNT 6.3 K/UL (4.8-10.8)
[2019-04-17 05:48] LABS: ANION GAP 6 mmol/L (5-15); CARBON DIOXIDE 29 MMOL/L (21-32); CHLORIDE 110 MMOL/L (98-107); POTASSIUM 3.3 MMOL/L (3.5-5.1); SODIUM 145 MMOL/L (136-145)
[2019-04-17 06:28] LABS: BLOOD UREA NITROGEN 18 mg/dL (7-18); CALCIUM 9.9 MG/DL (8.5-10.1); CREATININE 1.3 MG/DL (0.55-1.30)
--- NOTE | 2019-04-17 08:27 | NUR ---
NURSE NOTES: Weaning started at this time. CPAP and psv8
[2019-04-17] MEDS: Memantine 5 MG TAB ORAL SCH ×2 (09:13→17:32)
[2019-04-17] MEDS: Cefepime HCl 1 GM in D5W 55 ML IVPB SCH (09:13)
[2019-04-17] MEDS: HydrALAZINE 10mg Tab NG SCH ×2 (09:14→20:20)
[2019-04-17] MEDS: Enoxaparin 30mg Inj SUBQ SCH (09:15)
--- NOTE | 2019-04-17 09:32 | Urology Progress Note ---
Assessment/Plan Status: unchanged Assessment/Plan: 1. 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 2. Urinary retention. 3. Acute kidney injury, improved. 4. Hydronephrosis, likely chronic. 5. Proteinuria. 6. UTI and colonization. 7. Hematuria. monitor clinically maintain guerra, last replaced 04/10 hand irrigated and do PRN position is satisfactory monitor renal fxn, labile likely obst of bilateral distal ureters secondary to advanced prostate ca will need to see how aggressive pt and family want to be renal fxn improved with the new guerra consider ureteral stents or nephrostomies? flomax added voiding trial at some point? f/u on blood cx Subjective Allergies: Coded Allergies: No Known Allergies (Unverified , 04/03/19) Subjective all noted, remain in ICU, remains intubated Objective Last 24 Hour Vital Signs Date Time Temp Pulse Resp B/P (MAP) Pulse Ox O2 Delivery O2 Flow Rate FiO2 04/17/19 09:14 141/79 04/17/19 09:00 100 25 40 04/17/19 08:24 100 04/17/19 07:26 98 14 40 04/17/19 06:00 95 22 100/63 (75) 100 04/17/19 05:21 96 10 40 04/17/19 05:00 97 22 94/63 (73) 100 04/17/19 04:00 98.0 100 17 93/65 (74) 100 04/17/19 04:00 40 04/17/19 04:00 Mechanical Ventilator 04/17/19 04:00 99 04/17/19 03:25 103 14 40 04/17/19 03:00 106 21 123/70 (87) 100 04/17/19 02:00 101 23 105/67 (80) 100 04/17/19 01:36 101 12 40 04/17/19 01:00 100 21 102/67 (79) 100 04/17/19 00:00 98.8 102 21 106/64 (78) 100 04/17/19 00:00 40 04/17/19 00:00 Mechanical Ventilator 04/17/19 00:00 102 04/16/19 23:47 104 13 40 04/16/19 23:00 106 20 117/75 (89) 100 04/16/19 22:00 102 23 93/59 (70) 100 04/16/19 21:16 106 14 40 04/16/19 21:00 107 19 101/69 (80) 100 04/16/19 20:43 102/66 04/16/19 20:00 105 22 101/66 (78) 100 04/16/19 20:00 Mechanical Ventilator 04/16/19 20:00 106 04/16/19 19:09 101 12 40 04/16/19 19:00 103 21 98/72 (81) 100 04/16/19 18:00 105 22 90/60 (70) 100 04/16/19 17:00 108/66 04/16/19 17:00 104 19 108/66 (80) 100 04/16/19 16:58 96 13 40 04/16/19 16:00 Mechanical Ventilator 04/16/19 16:00 40 04/16/19 16:00 97.7 101 13 103/67 (79) 100 04/16/19 16:00 103 04/16/19 15:00 103 10 109/68 (82) 100 04/16/19 14:36 102 12 40 04/16/19 14:00 95 11 110/58 (75) 100 04/16/19 13:00 101 14 112/85 (94) 100 04/16/19 12:34 94 11 40 04/16/19 12:15 40 04/16/19 12:00 40 04/16/19 12:00 97.3 100 23 101/71 (81) 100 04/16/19 12:00 Mechanical Ventilator 04/16/19 12:00 102 04/16/19 11:00 105 24 101/64 (76) 100 04/16/19 10:38 111 21 40 04/16/19 10:00 102 15 101/64 (76) 100 Intake and Output 04/16/19 04/17/19 19:00 07:00 Intake Total 1175.000 ml 740 ml Output Total 635 ml 640 ml Balance 540.000 ml 100 ml Free Water 60 ml 90 ml IV Total 605.000 ml Tube Feeding 510 ml 650 ml Output Urine Total 635 ml 640 ml # Voids 200 # Bowel Movements 6 Microbiology Date/Time Source Procedure Growth Status 04/14/19 12:45 Blood Blood Culture - Preliminary NO GROWTH AFTER 24 HOURS Resulted 04/15/19 21:40 Sputum Gram Stain - Final Resulted 04/15/19 21:40 Sputum Sputum Culture - Preliminary NORMAL UPPER RESPIRATORY DAVID PRESENT Resulted 04/14/19 11:25 Urine,Random Urine Culture - Final NO GROWTH AFTER 48 HOURS Complete Current Medications Medications (Trade) Dose Ordered Sig/[place] Route PRN Reason Start Time Stop Time Status Last Admin Dose Admin Calcitonin [place] (Miacalcin) 1 sprays DAILY NASAL 04/14/19 09:00 05/10/19 13:29 04/17/19 09:18 Cefepime HCl 1 gm/ Dextrose 55 ml @ 110 mls/hr DAILY IVPB 04/16/19 09:00 04/21/19 08:59 04/17/19 09:13 Chlorhexidine Gluconate (Martha-Hex 2%) 1 applic DAILY@2000 TOPIC 04/13/19 20:00 05/06/19 19:59 04/16/19 20:42 Enoxaparin Sodium (Lovenox) 30 mg DAILY SUBQ 04/14/19 09:00 05/04/19 08:59 04/17/19 09:15 Hydralazine HCl (Apresoline) 10 mg Q12HR NG 04/13/19 21:00 05/10/19 17:59 04/17/19 09:14 Hydralazine HCl (Apresoline) 10 mg Q4H PRN IV SBP > 170mmHg 04/13/19 15:00 05/08/19 14:59 Lansoprazole (Prevacid) 30 mg DAILY ORAL 04/14/19 09:00 05/13/19 08:59 04/17/19 09:14 Memantine (Namenda) 5 mg BID ORAL 04/13/19 18:00 05/04/19 17:59 04/17/19 09:13 Morphine Sulfate (Morphine Sulfate) 1 mg Q4H PRN IVP PAIN 4-10 04/13/19 18:00 04/20/19 17:59 04/17/19 03:16 Norepinephrine Bitartrate 4 mg/ Dextrose 250 ml @ 0 mls/hr Q24H IV 04/13/19 17:00 05/13/19 16:59 04/14/19 22:57 Tamsulosin HCl (Flomax) 0.4 mg BEDTIME ORAL 04/13/19 21:00 05/13/19 20:59 04/16/19 20:43 Vancomycin HCl (Vanco rx to dose) 1 ea DAILY PRN MISC Per rx protocol 04/14/19 11:15 05/14/19 11:14 Vancomycin/Sodium Chloride 275 ml @ 183.333 mls/hr Q24H IVPB 04/14/19 14:00 04/19/19 13:59 04/16/19 14:00 Laboratory Tests 04/16/19 10:55: Arterial Blood pH 7.252L, Arterial Blood Partial Pressure CO2 63.1*H, Arterial Blood Partial Pressure O2 138.7H, Arterial Blood HCO3 27.2H, Arterial Blood Oxygen Saturation 98.5, Arterial Blood Base Excess -0.6, Antonio Test Positive 04/17/19 04:45: White Blood Count 6.3, Red Blood Count 2.86L, Hemoglobin 8.1L, Hematocrit 24.2L , Mean Corpuscular Volume 85, Mean Corpuscular Hemoglobin 28.3, Mean Corpuscular Hemoglobin Concent 33.4, Red Cell Distribution Width 15.7H, Platelet Count 160, Mean Platelet Volume 5.2L, Neutrophils (%) (Auto) 82.7H, Lymphocytes (%) (Auto) 8.1L, Monocytes (%) (Auto) 5.3, Eosinophils (%) (Auto) 3.5H, Basophils (%) (Auto) 0.4, Sodium Level 145, Potassium Level 3.3L, Chloride Level 110H, Carbon Dioxide Level 29, Anion Gap 6, Blood Urea Nitrogen 18, Creatinine 1.3, Estimat Glomerular Filtration Rate > 60, Glucose Level 120H , Calcium Level 9.9 Height (Feet): 5 Height (Inches): 7.00 Weight (Pounds): 168 Objective exam stable guerra indwelling, allegra urine CT A/P (04/10) noted Raz Root MD Apr 17, 2019 09:32
--- NOTE | 2019-04-17 09:44 | NUR ---
RD ASSESSMENT & RECOMMENDATIONS SEE CARE ACTIVITY FOR COMPLETE ASSESSMENT DAILY ESTIMATED NEEDS: Needs based on Underweight, cancer, Critical care 54.7kg 30-35 kcals/kg 7833-2333 total kcals 1.25-2 g protein/kg 68-109 g total protein 25-30 mL/kg 2818-4793 total fluid mLs NUTRITION DIAGNOSIS: Underweight r/t cancer? as evidenced by pt w/ prostate cancer, elevated antigen and calcium levels, w/ generalized moderate wasting, previously poor po intake, pt is 81% of [place] body Weight, currently s/p code blue x2, now re-intubated, NGT feeds, off pressors. CURRENT TF:Vital @55ml/hr x24 hrs ENTERAL NUTRITION RECOMMENDATIONS: Vital AF 1.2 @55ml/hr x24 hrs to provide 1320ml, 1584 kcal, 99g prom 1071ml free H2O - Maintain current TF formula and rate. If able, rec to increase to 60ml/hr to meet 100% est kcal needs. - SHE[employer]ER eval post extubation. - Flush per MD/ HOB over 30 degrees ADDITIONAL RECOMMENDATIONS: 1) Recalibrated bed wts for daily wts -> daily wts are inconsistent 2) Add KATIE BID for wounds + Vit C 250mg daily 3) Monitor lytes, replete as needed 4) Now reintubated-> NGT feed recs as above when stable Trophic feeds should pt become hemodynamically unstable 5) Monitor Ca: previously elevated / rec NEPRO should calcium trend up for lowest calcium content
--- NOTE | 2019-04-17 09:50 | NUR ---
NURSE NOTES: Pt was so restless , morphine 1 mg ivp was given FLACC 6
--- NOTE | 2019-04-17 10:36 | Diagnostic Imaging Report ---
Indication: Dyspnea Comparison: 04/14/2019 A single view chest radiograph was obtained. Findings: Resolution of right upper lobe atelectasis noted. Currently the lungs demonstrate increased vascularity and interstitial markings consistent with the interstitial edema. Heart size remains normal. Endotracheal tube and nasogastric tubes are in good position. IMPRESSION: Pulmonary edema. Interval resolution of right upper lobe atelectasis.
--- NOTE | 2019-04-17 11:02 | NUR ---
NURSE NOTES: Called Dr Mathews with blood gas result both abg with CPAP and Ac. ordered keep pt at AC
--- NOTE | 2019-04-17 11:08 | General Progress Note ---
Assessment/Plan Status: unchanged Assessment/Plan: Assessment/Plan Problems: (1) Coffee ground emesis (2) Anemia (3) metastatic prostate CA (4) respiratory failure intubated in the ICU off pressor NGTF tolerated ppi will fu Subjective ROS Limited/Unobtainable: No Allergies: Coded Allergies: No Known Allergies (Unverified , 04/03/19) Objective Last 24 Hour Vital Signs Date Time Temp Pulse Resp B/P (MAP) Pulse Ox O2 Delivery O2 Flow Rate FiO2 04/17/19 09:14 141/79 04/17/19 09:00 100 25 40 04/17/19 08:24 100 04/17/19 07:26 98 14 40 04/17/19 06:00 95 22 100/63 (75) 100 04/17/19 05:21 96 10 40 04/17/19 05:00 97 22 94/63 (73) 100 04/17/19 04:00 98.0 100 17 93/65 (74) 100 04/17/19 04:00 40 04/17/19 04:00 Mechanical Ventilator 04/17/19 04:00 99 04/17/19 03:25 103 14 40 04/17/19 03:00 106 21 123/70 (87) 100 04/17/19 02:00 101 23 105/67 (80) 100 04/17/19 01:36 101 12 40 04/17/19 01:00 100 21 102/67 (79) 100 04/17/19 00:00 98.8 102 21 106/64 (78) 100 04/17/19 00:00 40 04/17/19 00:00 Mechanical Ventilator 04/17/19 00:00 102 04/16/19 23:47 104 13 40 04/16/19 23:00 106 20 117/75 (89) 100 04/16/19 22:00 102 23 93/59 (70) 100 04/16/19 21:16 106 14 40 04/16/19 21:00 107 19 101/69 (80) 100 04/16/19 20:43 102/66 04/16/19 20:00 105 22 101/66 (78) 100 04/16/19 20:00 Mechanical Ventilator 04/16/19 20:00 106 04/16/19 19:09 101 12 40 04/16/19 19:00 103 21 98/72 (81) 100 04/16/19 18:00 105 22 90/60 (70) 100 04/16/19 17:00 108/66 04/16/19 17:00 104 19 108/66 (80) 100 04/16/19 16:58 96 13 40 04/16/19 16:00 Mechanical Ventilator 04/16/19 16:00 40 04/16/19 16:00 97.7 101 13 103/67 (79) 100 04/16/19 16:00 103 04/16/19 15:00 103 10 109/68 (82) 100 04/16/19 14:36 102 12 40 04/16/19 14:00 95 11 110/58 (75) 100 04/16/19 13:00 101 14 112/85 (94) 100 04/16/19 12:34 94 11 40 04/16/19 12:15 40 04/16/19 12:00 40 04/16/19 12:00 97.3 100 23 101/71 (81) 100 04/16/19 12:00 Mechanical Ventilator 04/16/19 12:00 102 Intake and Output 04/16/19 04/17/19 19:00 07:00 Intake Total 1175.000 ml 740 ml Output Total 635 ml 640 ml Balance 540.000 ml 100 ml Free Water 60 ml 90 ml IV Total 605.000 ml Tube Feeding 510 ml 650 ml Output Urine Total 635 ml 640 ml # Voids 200 # Bowel Movements 6 Laboratory Tests 04/17/19 04:45: White Blood Count 6.3, Red Blood Count 2.86L, Hemoglobin 8.1L, Hematocrit 24.2L , Mean Corpuscular Volume 85, Mean Corpuscular Hemoglobin 28.3, Mean Corpuscular Hemoglobin Concent 33.4, Red Cell Distribution Width 15.7H, Platelet Count 160, Mean Platelet Volume 5.2L, Neutrophils (%) (Auto) 82.7H, Lymphocytes (%) (Auto) 8.1L, Monocytes (%) (Auto) 5.3, Eosinophils (%) (Auto) 3.5H, Basophils (%) (Auto) 0.4, Sodium Level 145, Potassium Level 3.3L, Chloride Level 110H, Carbon Dioxide Level 29, Anion Gap 6, Blood Urea Nitrogen 18, Creatinine 1.3, Estimat Glomerular Filtration Rate > 60, Glucose Level 120H , Calcium Level 9.9 04/17/19 09:35: Arterial Blood pH 7.166*L, Arterial Blood Partial Pressure CO2 75.7*H, Arterial Blood Partial Pressure O2 56.2L, Arterial Blood HCO3 26.7H, Arterial Blood Oxygen Saturation 85.1*L, Arterial Blood Base Excess -2.7L, Antonio Test Positive Height (Feet): 5 Height (Inches): 7.00 Weight (Pounds): 168 General Appearance: lethargic EENT: normal ENT inspection Neck: normal alignment Cardiovascular: normal rate Respiratory/Chest: decreased breath sounds Abdomen: normal bowel sounds, non tender, soft Extremities: non-tender Tyrone Lamb MD Apr 17, 2019 11:08
--- NOTE | 2019-04-17 11:09 | NUR ---
RADIOLOGY DEPT., CHEST X-RAY DONE.-P.DYE
--- NOTE | 2019-04-17 11:16 | Infectious Diseases Prog Note ---
Assessment/Plan Assessment/Plan Assessment: s/p bradycardia>cardiac arrest 04/13 VDRF 04/13 Shock, recurrent- off pressors s/p asystole cardiac arrest 04/06 VDRF; s/p extubation 2/ Low grade fever; improving Mild leukocytosis, recurrent- SP -04/15 sp cx normal resp sharyn (prelim) -04/14 u/a wbc 10-15, nit neg, leuk +3; ucx NTD CXR: Interim development of complete right upper lobe atelectasis. Nonspecific diffuse hazy left lung opacity, likely mild pulmonary edema. -2 Bcx NTD u/a wbc tnct, nit neg, leuk +; ucx neg -04/06 CXR: Interval resolution of right apical density. This suggests the diagnosis was atelectasis rather than an apical cap from blood, which was suggested as a possibility on the prior report. The right upper lobe atelectasis has resolved. Suspicion of new atelectasis at the right lung base. Sepsis UTI B/l hydroureteronephrosis -04/10 CT abd/p: Evidence of advanced metastatic neoplasm likely secondary to prostate carcinoma. Extensive retroperitoneal and pelvic lymphadenopathy complicated by presence of bilateral hydroureteronephrosis. Extensive metastatic disease involving the bones also noted. Small left pleural effusion. Right trace right pleural effusion. Right inguinal hernia containing a small amount of fluid. Alternatively this could represent part of the testis. Anasarca. -u/a wbc 20-30, nit +, leuk +3; ucx >100k E.coli (R amp, bactrim; otherwise S) Probable Aspiration pneumonitis vs PNA -04/08 CXR: Patchy perihilar disease which may be asymmetric interstitial edema or infiltrate unchanged. Interval resolution of right basal atelectasis. -04/07 sp cx normal sharyn(prelim) s/p recent fall LETA Hypokalemia prostate CA stage IV, mets to bone chronic indwelling guerra catheter Plan: -d/c IV vancomycin #4 -Continue Cefepime #4 given HD decompensation and pending repeat cultures -04/13 SP Ceftriaxone #4 - 04/10 Sp ZOsyn #4 -2/6 SP IV Vancomycin #3 -2/4 SP Ceftriaxone #4 -f/u cx -Monitor CBC/CMP, temperatures -aspiration precautions -Cards, renal, Uro, pulm f/u -f/u ucx, Bcx,sp cx -ICU/ETT care -poor px- consider re-evaluation of goals of care- ?Hospice Thank you for this consultation. Will continue to follow along with you. Discussed with RN Subjective Allergies: Coded Allergies: No Known Allergies (Unverified , 04/03/19) Subjective afebrile >48hrs off pressors no leukocytosis remains intubated Objective Vital Signs Last 24 Hour Vital Signs Date Time Temp Pulse Resp B/P (MAP) Pulse Ox O2 Delivery O2 Flow Rate FiO2 04/17/19 09:14 141/79 04/17/19 09:00 100 25 40 04/17/19 08:24 100 04/17/19 07:26 98 14 40 04/17/19 06:00 95 22 100/63 (75) 100 04/17/19 05:21 96 10 40 04/17/19 05:00 97 22 94/63 (73) 100 04/17/19 04:00 98.0 100 17 93/65 (74) 100 04/17/19 04:00 40 04/17/19 04:00 Mechanical Ventilator 04/17/19 04:00 99 04/17/19 03:25 103 14 40 04/17/19 03:00 106 21 123/70 (87) 100 04/17/19 02:00 101 23 105/67 (80) 100 04/17/19 01:36 101 12 40 04/17/19 01:00 100 21 102/67 (79) 100 04/17/19 00:00 98.8 102 21 106/64 (78) 100 04/17/19 00:00 40 04/17/19 00:00 Mechanical Ventilator 04/17/19 00:00 102 04/16/19 23:47 104 13 40 04/16/19 23:00 106 20 117/75 (89) 100 04/16/19 22:00 102 23 93/59 (70) 100 04/16/19 21:16 106 14 40 04/16/19 21:00 107 19 101/69 (80) 100 04/16/19 20:43 102/66 04/16/19 20:00 105 22 101/66 (78) 100 04/16/19 20:00 Mechanical Ventilator 04/16/19 20:00 106 04/16/19 19:09 101 12 40 04/16/19 19:00 103 21 98/72 (81) 100 04/16/19 18:00 105 22 90/60 (70) 100 04/16/19 17:00 108/66 04/16/19 17:00 104 19 108/66 (80) 100 04/16/19 16:58 96 13 40 04/16/19 16:00 Mechanical Ventilator 04/16/19 16:00 40 04/16/19 16:00 97.7 101 13 103/67 (79) 100 04/16/19 16:00 103 04/16/19 15:00 103 10 109/68 (82) 100 04/16/19 14:36 102 12 40 04/16/19 14:00 95 11 110/58 (75) 100 04/16/19 13:00 101 14 112/85 (94) 100 04/16/19 12:34 94 11 40 04/16/19 12:15 40 04/16/19 12:00 40 04/16/19 12:00 97.3 100 23 101/71 (81) 100 04/16/19 12:00 Mechanical Ventilator 04/16/19 12:00 102 Height (Feet): 5 Height (Inches): 7.00 Weight (Pounds): 168 Objective General Appearance: normal inspection, alert, Chronically Ill ENT: ETT in place Neck: normal inspection, full range of motion, supple, no bony tend Respiratory: normal inspection, lungs clear, no wheezing Cardiovascular # regular rate, rhythm, no edema Gastrointestinal: normal inspection, normal bowel sounds, non tender, soft, no guardinga Musculoskeletal: normal inspection, back normal, normal range of motion Skin: no rash Microbiology Date/Time Source Procedure Growth Status 04/14/19 12:45 Blood Blood Culture - Preliminary NO GROWTH AFTER 48 HOURS Resulted 04/14/19 12:30 Blood Blood Culture - Preliminary NO GROWTH AFTER 48 HOURS Resulted 04/15/19 21:40 Sputum Gram Stain - Final Resulted 04/15/19 21:40 Sputum Sputum Culture - Preliminary NORMAL UPPER RESPIRATORY SHARYN PRESENT Resulted 04/14/19 11:25 Urine,Random Urine Culture - Final NO GROWTH AFTER 48 HOURS Complete Laboratory Tests Test 04/17/19 04:45 04/17/19 09:35 White Blood Count 6.3 K/UL (4.8-10.8) Red Blood Count 2.86 M/UL (4.70-6.10) L Hemoglobin 8.1 G/DL (14.2-18.0) L Hematocrit 24.2 % (42.0-52.0) L Mean Corpuscular Volume 85 FL (80-99) Mean Corpuscular Hemoglobin 28.3 PG (27.0-31.0) Mean Corpuscular Hemoglobin Concent 33.4 G/DL (32.0-36.0) Red Cell Distribution Width 15.7 % (11.6-14.8) H Platelet Count 160 K/UL (150-450) Mean Platelet Volume 5.2 FL (6.5-10.1) L Neutrophils (%) (Auto) 82.7 % (45.0-75.0) H Lymphocytes (%) (Auto) 8.1 % (20.0-45.0) L Monocytes (%) (Auto) 5.3 % (1.0-10.0) Eosinophils (%) (Auto) 3.5 % (0.0-3.0) H Basophils (%) (Auto) 0.4 % (0.0-2.0) Sodium Level 145 MMOL/L (136-145) Potassium Level 3.3 MMOL/L (3.5-5.1) L Chloride Level 110 MMOL/L (98-107) H Carbon Dioxide Level 29 MMOL/L (21-32) Anion Gap 6 mmol/L (5-15) Blood Urea Nitrogen 18 mg/dL (7-18) Creatinine 1.3 MG/DL (0.55-1.30) Estimat Glomerular Filtration Rate > 60 mL/min (>60) Glucose Level 120 MG/DL (74-106) H Calcium Level 9.9 MG/DL (8.5-10.1) Arterial Blood pH 7.166 (7.350-7.450) Arterial Blood Partial Pressure CO2 75.7 mmHg (35.0-45.0) *H Arterial Blood Partial Pressure O2 56.2 mmHg (75.0-100.0) L Arterial Blood HCO3 26.7 mmol/L (22.0-26.0) H Arterial Blood Oxygen Saturation 85.1 % (95-100) *L Arterial Blood Base Excess -2.7 (-2-2) L Antonio Test Positive Current Medications Medications (Trade) Dose Ordered Sig/[place] Route PRN Reason Start Time Stop Time Status Last Admin Dose Admin Calcitonin Shiloh (Miacalcin) 1 sprays DAILY NASAL 04/14/19 09:00 05/10/19 13:29 04/17/19 09:18 Cefepime HCl 1 gm/ Dextrose 55 ml @ 110 mls/hr DAILY IVPB 04/16/19 09:00 04/21/19 08:59 04/17/19 09:13 Chlorhexidine Gluconate (Martha-Hex 2%) 1 applic DAILY@2000 TOPIC 04/13/19 20:00 05/06/19 19:59 04/16/19 20:42 Enoxaparin Sodium (Lovenox) 30 mg DAILY SUBQ 04/14/19 09:00 05/04/19 08:59 04/17/19 09:15 Hydralazine HCl (Apresoline) 10 mg Q12HR NG 04/13/19 21:00 05/10/19 17:59 04/17/19 09:14 Hydralazine HCl (Apresoline) 10 mg Q4H PRN IV SBP > 170mmHg 04/13/19 15:00 05/08/19 14:59 Lansoprazole (Prevacid) 30 mg DAILY ORAL 04/14/19 09:00 05/13/19 08:59 04/17/19 09:14 Memantine (Namenda) 5 mg BID ORAL 04/13/19 18:00 05/04/19 17:59 04/17/19 09:13 Morphine Sulfate (Morphine Sulfate) 1 mg Q4H PRN IVP PAIN 4-10 04/13/19 18:00 04/20/19 17:59 04/17/19 09:50 Norepinephrine Bitartrate 4 mg/ Dextrose 250 ml @ 0 mls/hr Q24H IV 04/13/19 17:00 05/13/19 16:59 04/14/19 22:57 Tamsulosin HCl (Flomax) 0.4 mg BEDTIME ORAL 04/13/19 21:00 05/13/19 20:59 04/16/19 20:43 Vancomycin HCl (Vanco rx to dose) 1 ea DAILY PRN MISC Per rx protocol 04/14/19 11:15 05/14/19 11:14 Vancomycin/Sodium Chloride 275 ml @ 183.333 mls/hr Q24H IVPB 04/14/19 14:00 04/19/19 13:59 04/16/19 14:00 Rafia Nielson M.D. Apr 17, 2019 11:16
--- NOTE | 2019-04-17 12:07 | Cardiac Electrophysiology PN ---
Assessment/Plan Assessment/Plan 1. Status post noninfarctional 2 separate juan antonio arrest with asystole. Both episodes happened in the setting of respiratory failure and off the Vent No evidence of ventricular tachycardia or ventricular fibrillation. Off any GARCÍA or AVN blockerEF 65%. All 3 troponins were less than 0.1 2. Recurrent Respiratory failure, extubated 04/08/19 and reintubated 04/13/19 Weaning in progress again 3. History of stage III prostate cancer, followed by Dr. Monroy and Dr Root. Morales was changed. Follows up usually at [facility] 4. Shock. Off Levophed on iv Abx. 5. Hypercalcemia due to prostate cancer. 6. Hypernatremia. On IV fluids D5w at 50 cc/hr. 7. Anemia, s/p PRBC 04/08/19 DW RN Subjective Subjective Intubated in ICU on the Vent and off Levophed. No juan antonio while on the Vent. More alert but failed weaning/CPAP. Objective Last 24 Hour Vital Signs Date Time Temp Pulse Resp B/P (MAP) Pulse Ox O2 Delivery O2 Flow Rate FiO2 04/17/19 12:00 99 04/17/19 12:00 40 04/17/19 11:05 100 12 40 04/17/19 11:00 98 12 98/60 (73) 100 04/17/19 10:00 119 16 132/76 (94) 100 04/17/19 09:14 141/79 04/17/19 09:00 100 25 40 04/17/19 09:00 116 21 141/79 (99) 100 04/17/19 08:24 100 04/17/19 08:00 Mechanical Ventilator 04/17/19 08:00 97.8 105 18 102/66 (78) 100 04/17/19 08:00 40 04/17/19 08:00 106 04/17/19 07:26 98 14 40 04/17/19 07:00 95 12 96/64 (75) 100 04/17/19 06:00 95 22 100/63 (75) 100 04/17/19 05:21 96 10 40 04/17/19 05:00 97 22 94/63 (73) 100 04/17/19 04:00 98.0 100 17 93/65 (74) 100 04/17/19 04:00 40 04/17/19 04:00 Mechanical Ventilator 04/17/19 04:00 99 04/17/19 03:25 103 14 40 04/17/19 03:00 106 21 123/70 (87) 100 04/17/19 02:00 101 23 105/67 (80) 100 04/17/19 01:36 101 12 40 04/17/19 01:00 100 21 102/67 (79) 100 04/17/19 00:00 98.8 102 21 106/64 (78) 100 04/17/19 00:00 40 04/17/19 00:00 Mechanical Ventilator 04/17/19 00:00 102 04/16/19 23:47 104 13 40 04/16/19 23:00 106 20 117/75 (89) 100 04/16/19 22:00 102 23 93/59 (70) 100 04/16/19 21:16 106 14 40 04/16/19 21:00 107 19 101/69 (80) 100 04/16/19 20:43 102/66 04/16/19 20:00 105 22 101/66 (78) 100 04/16/19 20:00 Mechanical Ventilator 04/16/19 20:00 106 04/16/19 19:09 101 12 40 04/16/19 19:00 103 21 98/72 (81) 100 04/16/19 18:00 105 22 90/60 (70) 100 04/16/19 17:00 108/66 04/16/19 17:00 104 19 108/66 (80) 100 04/16/19 16:58 96 13 40 04/16/19 16:00 Mechanical Ventilator 04/16/19 16:00 40 04/16/19 16:00 97.7 101 13 103/67 (79) 100 04/16/19 16:00 103 04/16/19 15:00 103 10 109/68 (82) 100 04/16/19 14:36 102 12 40 04/16/19 14:00 95 11 110/58 (75) 100 04/16/19 13:00 101 14 112/85 (94) 100 04/16/19 12:34 94 11 40 04/16/19 12:15 40 Intake and Output 04/16/19 04/17/19 19:00 07:00 Intake Total 1175.000 ml 740 ml Output Total 635 ml 640 ml Balance 540.000 ml 100 ml Free Water 60 ml 90 ml IV Total 605.000 ml Tube Feeding 510 ml 650 ml Output Urine Total 635 ml 640 ml # Voids 200 # Bowel Movements 6 Laboratory Tests Test 04/17/19 04:45 04/17/19 09:35 04/17/19 10:39 White Blood Count 6.3 K/UL (4.8-10.8) Red Blood Count 2.86 M/UL (4.70-6.10) L Hemoglobin 8.1 G/DL (14.2-18.0) L Hematocrit 24.2 % (42.0-52.0) L Mean Corpuscular Volume 85 FL (80-99) Mean Corpuscular Hemoglobin 28.3 PG (27.0-31.0) Mean Corpuscular Hemoglobin Concent 33.4 G/DL (32.0-36.0) Red Cell Distribution Width 15.7 % (11.6-14.8) H Platelet Count 160 K/UL (150-450) Mean Platelet Volume 5.2 FL (6.5-10.1) L Neutrophils (%) (Auto) 82.7 % (45.0-75.0) H Lymphocytes (%) (Auto) 8.1 % (20.0-45.0) L Monocytes (%) (Auto) 5.3 % (1.0-10.0) Eosinophils (%) (Auto) 3.5 % (0.0-3.0) H Basophils (%) (Auto) 0.4 % (0.0-2.0) Sodium Level 145 MMOL/L (136-145) Potassium Level 3.3 MMOL/L (3.5-5.1) L Chloride Level 110 MMOL/L (98-107) H Carbon Dioxide Level 29 MMOL/L (21-32) Anion Gap 6 mmol/L (5-15) Blood Urea Nitrogen 18 mg/dL (7-18) Creatinine 1.3 MG/DL (0.55-1.30) Estimat Glomerular Filtration Rate > 60 mL/min (>60) Glucose Level 120 MG/DL (74-106) H Calcium Level 9.9 MG/DL (8.5-10.1) Arterial Blood pH 7.166 (7.350-7.450) 7.317 (7.350-7.450) Arterial Blood Partial Pressure CO2 75.7 mmHg (35.0-45.0) *H 57.8 mmHg (35.0-45.0) *H Arterial Blood Partial Pressure O2 56.2 mmHg (75.0-100.0) L 96.0 mmHg (75.0-100.0) Arterial Blood HCO3 26.7 mmol/L (22.0-26.0) H 28.9 mmol/L (22.0-26.0) H Arterial Blood Oxygen Saturation 85.1 % (95-100) *L 96.4 % (95-100) Arterial Blood Base Excess -2.7 (-2-2) L 2.1 (-2-2) H Antonio Test Positive Positive Microbiology Date/Time Source Procedure Growth Status 04/14/19 12:45 Blood Blood Culture - Preliminary NO GROWTH AFTER 48 HOURS Resulted 04/14/19 12:30 Blood Blood Culture - Preliminary NO GROWTH AFTER 48 HOURS Resulted 04/15/19 21:40 Sputum Gram Stain - Final Resulted 04/15/19 21:40 Sputum Sputum Culture - Preliminary NORMAL UPPER RESPIRATORY DAVID PRESENT Resulted Objective HEENT: No JVD. Orally intubated LUNGS: Coarse rhonchi. CARDIOVASCULAR: Regular S1 and S2 ABDOMEN: Soft and nondistended. EXTREMITIES: No pitting edema. Nain Cortez MD Apr 17, 2019 12:07
--- NOTE | 2019-04-17 14:19 | NUR ---
NURSE NOTES: Morphine 1mg ivp given due to pain FLACC 6
--- NOTE | 2019-04-17 15:00 | Progress Note ---
DATE: 04/17/2019 SUBJECTIVE: This is a 73-year-old male patient. He has dehydration and confusion with generalized weakness, but he also has a decline in cognition below his baseline. That is why, his attending continues to request daily psychiatric consultation. MENTAL STATUS EXAMINATION: This is a 73-year-old male patient. Appearance is disheveled. Attitude, irritable and agitated. Affect, guarded and restricted. Intellect, poor. Mood, depressed and anxious. Motor activity, psychomotor agitation. Attention span is poor. Orientation x2. Speech is pressured. Thought process, disorganized and illogical. Insight and judgment is poor. DIAGNOSIS: Major depressive disorder, mild, recurrent with psychotic features, rule out dementia with psychosis. PLAN: Plan for this patient is to treat with a medication regimen consisting of Namenda 5 mg twice a day to prevent any further decline in his cognition. He will continue to be followed by Psychiatry throughout his hospital course. 20 minutes of insight-oriented psychotherapy to help this patient recognize his cognitive decline and symptoms and also physical symptoms so he has better impulse control and behavior on the unit, and also more insight. Chart reviewed. Discussed with staff. Seen and assessed at bedside. Cherise Palma M.D. DR: ACE JOB#: [id number] CC:
--- NOTE | 2019-04-17 15:28 | Surgery Progress Note ---
Surgery Progress Note Subjective Procedure Performed right femoral central venous catheter insertion Additional Comments Awake alert confused pulled out his femoral triple-lumen catheter Objective Last 24 Hour Vital Signs Date Time Temp Pulse Resp B/P (MAP) Pulse Ox O2 Delivery O2 Flow Rate FiO2 04/17/19 14:49 116 18 40 04/17/19 13:07 98 14 40 04/17/19 13:00 98 17 96/60 (72) 100 04/17/19 12:00 99 04/17/19 12:00 Mechanical Ventilator 04/17/19 12:00 40 04/17/19 12:00 97.6 98 16 86/57 (67) 100 04/17/19 11:05 100 12 40 04/17/19 11:00 98 12 98/60 (73) 100 04/17/19 10:00 119 16 132/76 (94) 100 04/17/19 09:14 141/79 04/17/19 09:00 100 25 40 04/17/19 09:00 116 21 141/79 (99) 100 04/17/19 08:24 100 04/17/19 08:00 Mechanical Ventilator 04/17/19 08:00 97.8 105 18 102/66 (78) 100 04/17/19 08:00 40 04/17/19 08:00 106 04/17/19 07:26 98 14 40 04/17/19 07:00 95 12 96/64 (75) 100 04/17/19 06:00 95 22 100/63 (75) 100 04/17/19 05:21 96 10 40 04/17/19 05:00 97 22 94/63 (73) 100 04/17/19 04:00 98.0 100 17 93/65 (74) 100 04/17/19 04:00 40 04/17/19 04:00 Mechanical Ventilator 04/17/19 04:00 99 04/17/19 03:25 103 14 40 04/17/19 03:00 106 21 123/70 (87) 100 04/17/19 02:00 101 23 105/67 (80) 100 04/17/19 01:36 101 12 40 04/17/19 01:00 100 21 102/67 (79) 100 04/17/19 00:00 98.8 102 21 106/64 (78) 100 04/17/19 00:00 40 04/17/19 00:00 Mechanical Ventilator 04/17/19 00:00 102 04/16/19 23:47 104 13 40 04/16/19 23:00 106 20 117/75 (89) 100 04/16/19 22:00 102 23 93/59 (70) 100 04/16/19 21:16 106 14 40 04/16/19 21:00 107 19 101/69 (80) 100 04/16/19 20:43 102/66 04/16/19 20:00 105 22 101/66 (78) 100 04/16/19 20:00 Mechanical Ventilator 04/16/19 20:00 106 04/16/19 19:09 101 12 40 04/16/19 19:00 103 21 98/72 (81) 100 04/16/19 18:00 105 22 90/60 (70) 100 04/16/19 17:00 108/66 04/16/19 17:00 104 19 108/66 (80) 100 04/16/19 16:58 96 13 40 04/16/19 16:00 Mechanical Ventilator 04/16/19 16:00 40 04/16/19 16:00 97.7 101 13 103/67 (79) 100 04/16/19 16:00 103 I&O Intake and Output 04/16/19 04/17/19 19:00 07:00 Intake Total 1175.000 ml 740 ml Output Total 635 ml 640 ml Balance 540.000 ml 100 ml Free Water 60 ml 90 ml IV Total 605.000 ml Tube Feeding 510 ml 650 ml Output Urine Total 635 ml 640 ml # Voids 200 # Bowel Movements 6 Dressing: other Wound: other Drains: other Cardiovascular: RSR Respiratory: decreased breath sounds Abdomen: soft, present bowel sounds, non-distended Extremities: no cyanosis, other Laboratory Tests Test 04/17/19 04:45 04/17/19 09:35 04/17/19 10:39 White Blood Count 6.3 K/UL (4.8-10.8) Red Blood Count 2.86 M/UL (4.70-6.10) L Hemoglobin 8.1 G/DL (14.2-18.0) L Hematocrit 24.2 % (42.0-52.0) L Mean Corpuscular Volume 85 FL (80-99) Mean Corpuscular Hemoglobin 28.3 PG (27.0-31.0) Mean Corpuscular Hemoglobin Concent 33.4 G/DL (32.0-36.0) Red Cell Distribution Width 15.7 % (11.6-14.8) H Platelet Count 160 K/UL (150-450) Mean Platelet Volume 5.2 FL (6.5-10.1) L Neutrophils (%) (Auto) 82.7 % (45.0-75.0) H Lymphocytes (%) (Auto) 8.1 % (20.0-45.0) L Monocytes (%) (Auto) 5.3 % (1.0-10.0) Eosinophils (%) (Auto) 3.5 % (0.0-3.0) H Basophils (%) (Auto) 0.4 % (0.0-2.0) Sodium Level 145 MMOL/L (136-145) Potassium Level 3.3 MMOL/L (3.5-5.1) L Chloride Level 110 MMOL/L (98-107) H Carbon Dioxide Level 29 MMOL/L (21-32) Anion Gap 6 mmol/L (5-15) Blood Urea Nitrogen 18 mg/dL (7-18) Creatinine 1.3 MG/DL (0.55-1.30) Estimat Glomerular Filtration Rate > 60 mL/min (>60) Glucose Level 120 MG/DL (74-106) H Calcium Level 9.9 MG/DL (8.5-10.1) Arterial Blood pH 7.166 (7.350-7.450) 7.317 (7.350-7.450) Arterial Blood Partial Pressure CO2 75.7 mmHg (35.0-45.0) *H 57.8 mmHg (35.0-45.0) *H Arterial Blood Partial Pressure O2 56.2 mmHg (75.0-100.0) L 96.0 mmHg (75.0-100.0) Arterial Blood HCO3 26.7 mmol/L (22.0-26.0) H 28.9 mmol/L (22.0-26.0) H Arterial Blood Oxygen Saturation 85.1 % (95-100) *L 96.4 % (95-100) Arterial Blood Base Excess -2.7 (-2-2) L 2.1 (-2-2) H Antonio Test Positive Positive Plan Problems: (1) Cardiac arrest Assessment & Plan: Acute deterioration Cardiovascular lopez ACLS required for resuscitation Still full code Hypotensive intensive care unit requiring a new central venous catheter see note Antibiotics as per infectious caries Hold tube feeds Vent management cont current treatment improving wean vent possible extubate soon trend labs resume tube feeds will follow with recjonathon thank you (2) Stage III adenocarcinoma of prostate Assessment & Plan: patient with state 3 prostate cancer pending treatment at [facility] unlikely related to acute cardiac arrest this am abd exam with mild distention pending KUB no acute surgical intervention planned onc input thank you will follow with Jay Conrad Apr 17, 2019 15:28
--- NOTE | 2019-04-17 15:42 | NUR ---
HAND-OFF: Report given to Siria RIOS.
--- NOTE | 2019-04-17 15:43 | NUR ---
NURSE NOTES: Received patient from BLANCA Walsh. Will continue plan of care.
--- NOTE | 2019-04-17 16:00 | NUR ---
NURSE NOTES: Patient is orally intubated. ETT 7.5 @ 24cm to the lipline to vent settings of AC:10, TV:500, FiO2:40%, PEEP:5, O2:100%. NGT feeding of Vital 1.2 @ goal (55ml/hr). Morales intact and draining. Awake, alert and able to respond to simple questions with mouthing words, shaking and nodding of the head. He is also restless and keeps biting on ETT. Frequent suctioning provided. Turned and repositioned. Vital signs stable. Safety measures in place; bed low, locked and alarm is on. Will continue to monitor.
--- NOTE | 2019-04-17 17:28 | Nephrology Progress Note ---
Assessment/Plan Status: unchanged Assessment/Plan: A/P 1. LETA. multifact ATN. Cr stable 1.3 2. Prostate cancer with tremendously elevated PSA - Per Hematology/Oncology. 3. Hypokalemia. being replaced prn 4. Sepsis and UTI per Infectious Disease mgmt 5. Hypernatremia- resolved 6- Hypercalcemia of malignancy- Calcitonin. add one dose of pamidrinate - Ca down to 9.9. DC Calcitonin Subjective Date patient seen: Apr 17, 2019 Time patient seen: 11:00 ROS Limited/Unobtainable: Yes Allergies: Coded Allergies: No Known Allergies (Unverified , 04/03/19) Subjective Patient awake and alert, intubated Objective Last 24 Hour Vital Signs Date Time Temp Pulse Resp B/P (MAP) Pulse Ox O2 Delivery O2 Flow Rate FiO2 04/17/19 17:00 103/64 04/17/19 16:00 Mechanical Ventilator 04/17/19 15:00 113 18 106/70 (82) 100 04/17/19 14:49 116 18 40 04/17/19 14:00 98 18 100/60 (73) 100 04/17/19 13:07 98 14 40 04/17/19 13:00 98 17 96/60 (72) 100 04/17/19 12:00 99 04/17/19 12:00 Mechanical Ventilator 04/17/19 12:00 40 04/17/19 12:00 97.6 98 16 86/57 (67) 100 04/17/19 11:05 100 12 40 04/17/19 11:00 98 12 98/60 (73) 100 04/17/19 10:00 119 16 132/76 (94) 100 04/17/19 09:14 141/79 04/17/19 09:00 100 25 40 04/17/19 09:00 116 21 141/79 (99) 100 04/17/19 08:24 100 04/17/19 08:00 Mechanical Ventilator 04/17/19 08:00 97.8 105 18 102/66 (78) 100 04/17/19 08:00 40 04/17/19 08:00 106 04/17/19 07:26 98 14 40 04/17/19 07:00 95 12 96/64 (75) 100 04/17/19 06:00 95 22 100/63 (75) 100 04/17/19 05:21 96 10 40 04/17/19 05:00 97 22 94/63 (73) 100 04/17/19 04:00 98.0 100 17 93/65 (74) 100 04/17/19 04:00 40 04/17/19 04:00 Mechanical Ventilator 04/17/19 04:00 99 04/17/19 03:25 103 14 40 04/17/19 03:00 106 21 123/70 (87) 100 04/17/19 02:00 101 23 105/67 (80) 100 04/17/19 01:36 101 12 40 04/17/19 01:00 100 21 102/67 (79) 100 04/17/19 00:00 98.8 102 21 106/64 (78) 100 04/17/19 00:00 40 04/17/19 00:00 Mechanical Ventilator 04/17/19 00:00 102 04/16/19 23:47 104 13 40 04/16/19 23:00 106 20 117/75 (89) 100 04/16/19 22:00 102 23 93/59 (70) 100 04/16/19 21:16 106 14 40 04/16/19 21:00 107 19 101/69 (80) 100 04/16/19 20:43 102/66 04/16/19 20:00 105 22 101/66 (78) 100 04/16/19 20:00 Mechanical Ventilator 04/16/19 20:00 106 04/16/19 19:09 101 12 40 04/16/19 19:00 103 21 98/72 (81) 100 04/16/19 18:00 105 22 90/60 (70) 100 Intake and Output 04/16/19 04/17/19 19:00 07:00 Intake Total 1175.000 ml 740 ml Output Total 635 ml 640 ml Balance 540.000 ml 100 ml Free Water 60 ml 90 ml IV Total 605.000 ml Tube Feeding 510 ml 650 ml Output Urine Total 635 ml 640 ml # Voids 200 # Bowel Movements 6 Laboratory Tests 04/17/19 04:45: White Blood Count 6.3, Red Blood Count 2.86L, Hemoglobin 8.1L, Hematocrit 24.2L , Mean Corpuscular Volume 85, Mean Corpuscular Hemoglobin 28.3, Mean Corpuscular Hemoglobin Concent 33.4, Red Cell Distribution Width 15.7H, Platelet Count 160, Mean Platelet Volume 5.2L, Neutrophils (%) (Auto) 82.7H, Lymphocytes (%) (Auto) 8.1L, Monocytes (%) (Auto) 5.3, Eosinophils (%) (Auto) 3.5H, Basophils (%) (Auto) 0.4, Sodium Level 145, Potassium Level 3.3L, Chloride Level 110H, Carbon Dioxide Level 29, Anion Gap 6, Blood Urea Nitrogen 18, Creatinine 1.3, Estimat Glomerular Filtration Rate > 60, Glucose Level 120H , Calcium Level 9.9 04/17/19 09:35: Arterial Blood pH 7.166*L, Arterial Blood Partial Pressure CO2 75.7*H, Arterial Blood Partial Pressure O2 56.2L, Arterial Blood HCO3 26.7H, Arterial Blood Oxygen Saturation 85.1*L, Arterial Blood Base Excess -2.7L, Antonio Test Positive 04/17/19 10:39: Arterial Blood pH 7.317L, Arterial Blood Partial Pressure CO2 57.8*H, Arterial Blood Partial Pressure O2 96.0, Arterial Blood HCO3 28.9H, Arterial Blood Oxygen Saturation 96.4, Arterial Blood Base Excess 2.1H, Antonio Test Positive Height (Feet): 5 Height (Inches): 7.00 Weight (Pounds): 166 General Appearance: no apparent distress EENT: normal ENT inspection Neck: normal alignment, supple Cardiovascular: regular rhythm Respiratory/Chest: rhonchi - bilaterally Abdomen: non tender, soft Edema: no edema noted Arm (L), no edema noted Arm (R), no edema noted Leg (L), no edema noted Leg (R), no edema noted Pedal (L), no edema noted Pedal (R), no edema noted Generalized Carlos White MD Apr 17, 2019 17:28
--- NOTE | 2019-04-17 18:00 | NUR ---
NURSE NOTES: Patient is restless and agitated and also showing sad emotions. Continues to bite on ETT. Will Contact Dr. Toussaint for PRN medications.
--- NOTE | 2019-04-17 18:03 | NUR ---
NURSE NOTES: Order of Ativan 1mg Q6 PRN for agitation given by Dr. Palma. Will input and follow.
--- NOTE | 2019-04-17 20:00 | NUR ---
NURSE NOTES: Patient is now sleeping. Dr. Root came and assessed the patient. No new orders at the moment. Asked about urine output and to make sure guerra is anchored. Vital signs stable. Will continue to monitor.
[2019-04-17] MEDS: Tamsulosin 0.4mg cap ORAL SCH (20:27)
[2019-04-17] MEDS: LORazepam Inj 2mg/ml 1ml IV PRN (20:27)
--- NOTE | 2019-04-17 20:52 | Hematology/Onc Progress Note ---
Assessment/Plan Assessment/Plan # Prostate cancer stage IV with psa >700, cr is worse, hydronephrosis noted, seen by renal, Dr. White. --> i did received records from [facility]. has regional lymphadenopathy, s/p transrectal biopsy with Gleasons 5+5 (2010) in all cores, apparently has had a 3 year course of androgen deprivation from 2011- 2014.also status post RADIATION to the prostate, then lost to followup. Following surviellance psa 0.45-->65, in 10/2016, and up to 127 in 12/2016, Ct scan showed recurrence of disease with lad but no bony mets, started on lupron 01/2017, psa fell yo 73-->46, has been sarted on zytiga + prednisone, and now psa progression on zytiga, he started xtandi in 01/2019 Psa 87. He did not go through urethral stenting, he has deferred treatment with chemo. --> He is a very poor historian, I have talked to the sister --> imaging has been noted --> as per urology recs, reviewed --> have called , no answer, trans to [facility]? --> poor prognosis given above history of treatment, [facility] --> psa 737-->757 --> CT ABD 04/10: Evidence of advanced metastatic neoplasm likely secondary to prostate carcinoma. Extensive retroperitoneal and pelvic lymphadenopathy complicated by presence of bilateral hydroureteronephrosis. Extensive metastatic disease involving the bones also noted. Status post seed implant radiation therapy to the prostate gland. # Hypercalcemia -- now acutely worse --> trend Ca++ 8.1-->13-->12-->10.3-->10.7-->13.2 -->11-->10.5 --> ivf has been started --> as per nephrology --> calcitonin was given # Anemia due to underlying malignancy --> hgb trend as needed 9.2-->7-->10.9-->11-->9.7-->8.1 --> no hemolysis is noted --> no bleeding # Episode of generalized weakness --> on ivf --> pt as needed # Hypokalemia --> replete prn # Dehydration --> on ivf # Atrophic changes without evident intracranial hemorrhage. --> as per neuro, remains confused # Respiratory failure s/p vent --> s/p vent intubated on 04/06 --> 04/08 was extubated --> reintubated # Hypernatremia as well as low BUN. --> on ivf # Poor prognosis # Dvt ppx lovenox sq Appreciate consultation and Nicholas Rn Subjective Allergies: Coded Allergies: No Known Allergies (Unverified , 04/03/19) Subjective 04/06: no events, apparently intubated today and transferred to the icu, will dw family 04/07: remains in the icu, critically ill, Ca++ 12, on vent, minimally responsive , on dopa, dw pcp and pulm 04/08: no major changes, no night sweats, labs have been reviewed, dw daughter, he is more alert 04/10: awake, no acute events ct abd reviewed, stool ob negative 04/12: labs reviewed, nc, tachy, ceftriaxone, no sob 04/13: lethargic, nc 3l, no acute distress, labs reviewed 04/14: Ca++ remains elev 13.2, De Amy aware, on calcitonin, on lovenox 04/15: no major changes, remains intubated, seen by cards, renal, pulm, dw Kellie, kcl ordered 04/16: tolerating meds well, no bleeding, on vent, is on simv mode, nicholas Pacheco Rn 04/17: icu, vent, h/h stable, no acute events, on cefepime Objective Objective Current Medications Medications (Trade) Dose Ordered Sig/[place]ena Route PRN Reason Start Time Stop Time Status Last Admin Dose Admin Cefepime HCl 1 gm/ Dextrose 55 ml @ 110 mls/hr DAILY IVPB 04/16/19 09:00 04/21/19 08:59 04/17/19 09:13 Enoxaparin Sodium (Lovenox) 30 mg DAILY SUBQ 04/14/19 09:00 05/04/19 08:59 04/17/19 09:15 Furosemide (Lasix) 40 mg EVERY 12 HOURS IV 04/17/19 14:15 05/17/19 14:14 04/17/19 14:22 Hydralazine HCl (Apresoline) 10 mg Q12HR NG 04/13/19 21:00 05/10/19 17:59 04/17/19 09:14 Hydralazine HCl (Apresoline) 10 mg Q4H PRN IV SBP > 170mmHg 04/13/19 15:00 05/08/19 14:59 Lansoprazole (Prevacid) 30 mg DAILY ORAL 04/14/19 09:00 05/13/19 08:59 04/17/19 09:14 Lorazepam (Ativan 2mg/ml 1ml) 1 mg Q6H PRN IV For Anxiety 04/17/19 18:15 04/24/19 18:14 04/17/19 20:27 Memantine (Namenda) 5 mg BID ORAL 04/13/19 18:00 05/04/19 17:59 04/17/19 17:32 Morphine Sulfate (Morphine Sulfate) 1 mg Q4H PRN IVP PAIN 4-10 04/13/19 18:00 04/20/19 17:59 04/17/19 14:18 Norepinephrine Bitartrate 4 mg/ Dextrose 250 ml @ 0 mls/hr Q24H IV 04/13/19 17:00 05/13/19 16:59 04/14/19 22:57 Tamsulosin HCl (Flomax) 0.4 mg BEDTIME ORAL 04/13/19 21:00 05/13/19 20:59 04/17/19 20:27 Last 24 Hour Vital Signs Date Time Temp Pulse Resp B/P (MAP) Pulse Ox O2 Delivery O2 Flow Rate FiO2 04/17/19 20:20 91/58 04/17/19 20:00 98.5 109 24 91/58 (69) 100 04/17/19 20:00 40 04/17/19 20:00 Mechanical Ventilator 04/17/19 19:10 107 14 40 04/17/19 19:00 109 28 90/61 (71) 100 04/17/19 18:00 133 23 118/72 (87) 100 04/17/19 17:15 113 17 40 04/17/19 17:00 103/64 04/17/19 17:00 112 19 103/64 (77) 100 04/17/19 16:00 40 04/17/19 16:00 98.3 116 22 98/61 (73) 99 04/17/19 16:00 Mechanical Ventilator 04/17/19 15:00 113 18 106/70 (82) 100 04/17/19 14:49 116 18 40 04/17/19 14:00 98 18 100/60 (73) 100 04/17/19 13:07 98 14 40 04/17/19 13:00 98 17 96/60 (72) 100 04/17/19 12:00 99 04/17/19 12:00 Mechanical Ventilator 04/17/19 12:00 40 04/17/19 12:00 97.6 98 16 86/57 (67) 100 04/17/19 11:05 100 12 40 04/17/19 11:00 98 12 98/60 (73) 100 04/17/19 10:00 119 16 132/76 (94) 100 04/17/19 09:14 141/79 04/17/19 09:00 100 25 40 04/17/19 09:00 116 21 141/79 (99) 100 04/17/19 08:24 100 04/17/19 08:00 Mechanical Ventilator 04/17/19 08:00 97.8 105 18 102/66 (78) 100 04/17/19 08:00 40 04/17/19 08:00 106 04/17/19 07:26 98 14 40 04/17/19 07:00 95 12 96/64 (75) 100 04/17/19 06:00 95 22 100/63 (75) 100 04/17/19 05:21 96 10 40 04/17/19 05:00 97 22 94/63 (73) 100 04/17/19 04:00 98.0 100 17 93/65 (74) 100 04/17/19 04:00 40 04/17/19 04:00 Mechanical Ventilator 04/17/19 04:00 99 04/17/19 03:25 103 14 40 04/17/19 03:00 106 21 123/70 (87) 100 04/17/19 02:00 101 23 105/67 (80) 100 04/17/19 01:36 101 12 40 04/17/19 01:00 100 21 102/67 (79) 100 04/17/19 00:00 98.8 102 21 106/64 (78) 100 04/17/19 00:00 40 04/17/19 00:00 Mechanical Ventilator 04/17/19 00:00 102 04/16/19 23:47 104 13 40 04/16/19 23:00 106 20 117/75 (89) 100 04/16/19 22:00 102 23 93/59 (70) 100 04/16/19 21:16 106 14 40 04/16/19 21:00 107 19 101/69 (80) 100 04/16/19 20:43 102/66 04/16/19 20:00 105 22 101/66 (78) 100 04/16/19 20:00 Mechanical Ventilator 04/16/19 20:00 106 04/16/19 19:09 101 12 40 04/16/19 19:00 103 21 98/72 (81) 100 04/16/19 18:00 105 22 90/60 (70) 100 04/16/19 17:00 108/66 04/16/19 17:00 104 19 108/66 (80) 100 04/16/19 16:58 96 13 40 04/16/19 16:00 Mechanical Ventilator 04/16/19 16:00 40 04/16/19 16:00 97.7 101 13 103/67 (79) 100 04/16/19 16:00 103 04/16/19 15:00 103 10 109/68 (82) 100 04/16/19 14:36 102 12 40 04/16/19 14:00 95 11 110/58 (75) 100 04/16/19 13:00 101 14 112/85 (94) 100 04/16/19 12:34 94 11 40 04/16/19 12:15 40 04/16/19 12:00 40 04/16/19 12:00 97.3 100 23 101/71 (81) 100 04/16/19 12:00 Mechanical Ventilator 04/16/19 12:00 102 04/16/19 11:00 105 24 101/64 (76) 100 04/16/19 10:38 111 21 40 04/16/19 10:00 102 15 101/64 (76) 100 04/16/19 09:00 100 11 98/64 (75) 100 04/16/19 08:43 107 20 40 40 04/16/19 08:42 100 04/16/19 08:33 97/57 04/16/19 08:00 97.8 97 18 90/63 (72) 100 04/16/19 08:00 50 04/16/19 08:00 103 04/16/19 07:56 Mechanical Ventilator 04/16/19 07:00 100 20 99/70 (80) 100 04/16/19 06:58 99 20 50 04/16/19 06:00 103 20 99/68 (78) 100 04/16/19 05:00 98 23 98/66 (77) 100 04/16/19 04:55 100 17 50 04/16/19 04:00 100 04/16/19 04:00 Mechanical Ventilator Mechanical Ventilator 04/16/19 04:00 50 04/16/19 04:00 97.8 99 21 102/61 (75) 100 04/16/19 04:00 101 04/16/19 03:00 100 23 97/63 (74) 100 04/16/19 02:50 112 25 50 04/16/19 02:00 99 22 102/68 (79) 04/16/19 01:30 107 19 107/68 (81) 100 04/16/19 01:16 103 20 50 04/16/19 01:00 104 18 106/66 (79) 100 04/16/19 00:30 104 21 108/71 (83) 100 04/16/19 00:00 101 04/16/19 00:00 98.0 99 19 99/65 (76) 100 04/16/19 00:00 Mechanical Ventilator Mechanical Ventilator 04/15/19 23:30 102 21 101/63 (76) 100 04/15/19 23:00 100 20 97/64 (75) 100 04/15/19 22:50 104 21 50 04/15/19 22:30 104 23 92/62 (72) 100 04/15/19 22:19 118 25 130/74 (92) 100 04/15/19 22:00 111 21 111/72 (85) 100 04/15/19 21:17 113/70 04/15/19 21:06 117 12 50 04/15/19 21:00 111 22 117/72 (87) 100 Intake and Output 04/16/19 04/17/19 19:00 07:00 Intake Total 1175.000 ml 740 ml Output Total 635 ml 640 ml Balance 540.000 ml 100 ml Free Water 60 ml 90 ml IV Total 605.000 ml Tube Feeding 510 ml 650 ml Output Urine Total 635 ml 640 ml # Voids 200 # Bowel Movements 6 Labs Test 04/15/19 05:37 04/15/19 08:58 04/16/19 04:00 04/16/19 10:55 White Blood Count 9.1 K/UL (4.8-10.8) 7.4 K/UL (4.8-10.8) Red Blood Count 3.07 M/UL (4.70-6.10) 2.97 M/UL (4.70-6.10) Hemoglobin 9.0 G/DL (14.2-18.0) 8.5 G/DL (14.2-18.0) Hematocrit 25.7 % (42.0-52.0) 25.4 % (42.0-52.0) Mean Corpuscular Volume 84 FL (80-99) 85 FL (80-99) Mean Corpuscular Hemoglobin 29.3 PG (27.0-31.0) 28.8 PG (27.0-31.0) Mean Corpuscular Hemoglobin Concent 34.9 G/DL (32.0-36.0) 33.7 G/DL (32.0-36.0) Red Cell Distribution Width 15.8 % (11.6-14.8) 16.2 % (11.6-14.8) Platelet Count 139 K/UL (150-450) 138 K/UL (150-450) Mean Platelet Volume 5.1 FL (6.5-10.1) 4.8 FL (6.5-10.1) Neutrophils (%) (Auto) % (45.0-75.0) 83.4 % (45.0-75.0) Lymphocytes (%) (Auto) % (20.0-45.0) 8.3 % (20.0-45.0) Monocytes (%) (Auto) % (1.0-10.0) 4.5 % (1.0-10.0) Eosinophils (%) (Auto) % (0.0-3.0) 3.5 % (0.0-3.0) Basophils (%) (Auto) % (0.0-2.0) 0.3 % (0.0-2.0) Differential Total Cells Counted 100 Neutrophils % (Manual) 82 % (45-75) Lymphocytes % (Manual) 12 % (20-45) Monocytes % (Manual) 4 % (1-10) Eosinophils % (Manual) 2 % (0-3) Basophils % (Manual) 0 % (0-2) Band Neutrophils 0 % (0-8) Platelet Estimate Decreased Platelet Morphology Normal Anisocytosis 1+ Sodium Level 147 MMOL/L (136-145) 144 MMOL/L (136-145) Potassium Level 3.3 MMOL/L (3.5-5.1) 3.8 MMOL/L (3.5-5.1) Chloride Level 111 MMOL/L (98-107) 111 MMOL/L (98-107) Carbon Dioxide Level 29 MMOL/L (21-32) 27 MMOL/L (21-32) Anion Gap 7 mmol/L (5-15) 6 mmol/L (5-15) Blood Urea Nitrogen 17 mg/dL (7-18) 17 mg/dL (7-18) Creatinine 1.4 MG/DL (0.55-1.30) 1.3 MG/DL (0.55-1.30) Estimat Glomerular Filtration Rate > 60 mL/min (>60) > 60 mL/min (>60) Glucose Level 88 MG/DL (74-106) 96 MG/DL (74-106) Calcium Level 11.6 MG/DL (8.5-10.1) 10.8 MG/DL (8.5-10.1) Arterial Blood pH 7.299 (7.350-7.450) 7.252 (7.350-7.450) Arterial Blood Partial Pressure CO2 53.7 mmHg (35.0-45.0) 63.1 mmHg (35.0-45.0) Arterial Blood Partial Pressure O2 95.7 mmHg (75.0-100.0) 138.7 mmHg (75.0-100.0) Arterial Blood HCO3 25.8 mmol/L (22.0-26.0) 27.2 mmol/L (22.0-26.0) Arterial Blood Oxygen Saturation 96.1 % (95-100) 98.5 % (95-100) Arterial Blood Base Excess -1.0 (-2-2) -0.6 (-2-2) Antonio Test Positive Positive Total Bilirubin 0.3 MG/DL (0.2-1.0) Aspartate Amino Transf (AST/SGOT) 61 U/L (15-37) Alanine Aminotransferase (ALT/SGPT) 16 U/L (12-78) Alkaline Phosphatase 75 U/L (46-116) Total Protein 5.9 G/DL (6.4-8.2) Albumin 1.8 G/DL (3.4-5.0) Globulin 4.1 g/dL Albumin/Globulin Ratio 0.4 (1.0-2.7) Test 04/17/19 04:45 04/17/19 09:35 04/17/19 10:39 White Blood Count 6.3 K/UL (4.8-10.8) Red Blood Count 2.86 M/UL (4.70-6.10) Hemoglobin 8.1 G/DL (14.2-18.0) Hematocrit 24.2 % (42.0-52.0) Mean Corpuscular Volume 85 FL (80-99) Mean Corpuscular Hemoglobin 28.3 PG (27.0-31.0) Mean Corpuscular Hemoglobin Concent 33.4 G/DL (32.0-36.0) Red Cell Distribution Width 15.7 % (11.6-14.8) Platelet Count 160 K/UL (150-450) Mean Platelet Volume 5.2 FL (6.5-10.1) Neutrophils (%) (Auto) 82.7 % (45.0-75.0) Lymphocytes (%) (Auto) 8.1 % (20.0-45.0) Monocytes (%) (Auto) 5.3 % (1.0-10.0) Eosinophils (%) (Auto) 3.5 % (0.0-3.0) Basophils (%) (Auto) 0.4 % (0.0-2.0) Sodium Level 145 MMOL/L (136-145) Potassium Level 3.3 MMOL/L (3.5-5.1) Chloride Level 110 MMOL/L (98-107) Carbon Dioxide Level 29 MMOL/L (21-32) Anion Gap 6 mmol/L (5-15) Blood Urea Nitrogen 18 mg/dL (7-18) Creatinine 1.3 MG/DL (0.55-1.30) Estimat Glomerular Filtration Rate > 60 mL/min (>60) Glucose Level 120 MG/DL (74-106) Calcium Level 9.9 MG/DL (8.5-10.1) Arterial Blood pH 7.166 (7.350-7.450) 7.317 (7.350-7.450) Arterial Blood Partial Pressure CO2 75.7 mmHg (35.0-45.0) 57.8 mmHg (35.0-45.0) Arterial Blood Partial Pressure O2 56.2 mmHg (75.0-100.0) 96.0 mmHg (75.0-100.0) Arterial Blood HCO3 26.7 mmol/L (22.0-26.0) 28.9 mmol/L (22.0-26.0) Arterial Blood Oxygen Saturation 85.1 % (95-100) 96.4 % (95-100) Arterial Blood Base Excess -2.7 (-2-2) 2.1 (-2-2) Antonio Test Positive Positive Height (Feet): 5 Height (Inches): 7.00 Weight (Pounds): 166 Objective General: normal inspection, alert, Chronically Ill Respiratory: s/p vent++ Cardiovascular: regular rate, rhythm, no edema Gastrointestinal: normal inspection, normal bowel sounds Genitourinary: no CVA tenderness Mus: normal inspection, back normal, normal range of motion Neurologic: alert, motor strength/tone normal, oriented + confused Psychiatric: normal inspection, judgement/insight normal Skin: no rash Andreas Monroy MD Apr 17, 2019 20:52
--- NOTE | 2019-04-17 22:00 | NUR ---
NURSE NOTES: Patient is awake and alert. Vital signs are stable. Turned and repositioned. Oral care and suctioning provided. All needs are met. Safety measures in place. Will continue to monitor.
[2019-04-18] VITALS (30 sets, daily range): BP systolic 80–150; BP diastolic 56–106
--- NOTE | 2019-04-18 | NUR ---
NURSE NOTES: Bed bath given; BM present and noted that the backside of the khadra has reddish/pink- will monitor AM labs and any bleeding. Linens changed, turned repositioned, oral care and suctioning provided. Patient is comfortable.
--- NOTE | 2019-04-18 02:00 | NUR ---
NURSE NOTES: See paper chart.
--- NOTE | 2019-04-18 04:00 | NUR ---
NURSE NOTES: See paper chart.
--- NOTE | 2019-04-18 06:00 | NUR ---
NURSE NOTES: See paper chart.
[2019-04-18 06:46] LABS: HEMATOCRIT 21.5 % (42.0-52.0); HEMOGLOBIN 7.4 G/DL (14.2-18.0); MEAN CORPUSCULAR VOLUME 84 FL (80-99); PLATELET COUNT 166 K/UL (150-450); RED BLOOD COUNT 2.56 M/UL (4.70-6.10); RED CELL DISTRIBUTION WIDTH 15.6 % (11.6-14.8); WHITE BLOOD COUNT 5.6 K/UL (4.8-10.8)
[2019-04-18 06:54] LABS: ANION GAP 4 mmol/L (5-15); BLOOD UREA NITROGEN 22 mg/dL (7-18); CALCIUM 9.5 MG/DL (8.5-10.1); CARBON DIOXIDE 31 MMOL/L (21-32); CHLORIDE 112 MMOL/L (98-107); CREATININE 1.4 MG/DL (0.55-1.30); POTASSIUM 3.2 MMOL/L (3.5-5.1); SODIUM 147 MMOL/L (136-145)
--- NOTE | 2019-04-18 07:00 | NUR ---
RESPIRATORY NOTES: Received Patient on ACVC VT 500, RR 10, Fio2 40%, PEEP +5. Patient intubated with 7.5 ETT with a 24cm lip line, secured with anchorfast. Patient alert and awake, responding to commands. Suction small amount of thin clear secretions Q2 and PRN. Alarms are on and audible. Vent plugged into red outlet. Will continue to monitor throughout the day.
--- NOTE | 2019-04-18 07:03 | Infectious Diseases Prog Note ---
Assessment/Plan Assessment/Plan Assessment: s/p bradycardia>cardiac arrest 04/13 VDRF 04/13 Shock, recurrent- off pressors s/p asystole cardiac arrest 04/06 VDRF; s/p extubation 04/08 Low grade fever; SP Mild leukocytosis, recurrent- SP -04/15 sp cx normal resp sharyn (prelim) -04/14 u/a wbc 10-15, nit neg, leuk +3; ucx NTD CXR: Interim development of complete right upper lobe atelectasis. Nonspecific diffuse hazy left lung opacity, likely mild pulmonary edema. -04/07 Bcx NTD u/a wbc tnct, nit neg, leuk +; ucx neg -04/06 CXR: Interval resolution of right apical density. This suggests the diagnosis was atelectasis rather than an apical cap from blood, which was suggested as a possibility on the prior report. The right upper lobe atelectasis has resolved. Suspicion of new atelectasis at the right lung base. Sepsis UTI B/l hydroureteronephrosis -04/10 CT abd/p: Evidence of advanced metastatic neoplasm likely secondary to prostate carcinoma. Extensive retroperitoneal and pelvic lymphadenopathy complicated by presence of bilateral hydroureteronephrosis. Extensive metastatic disease involving the bones also noted. Small left pleural effusion. Right trace right pleural effusion. Right inguinal hernia containing a small amount of fluid. Alternatively this could represent part of the testis. Anasarca. -u/a wbc 20-30, nit +, leuk +3; ucx >100k E.coli (R amp, bactrim; otherwise S) Probable Aspiration pneumonitis vs PNA -04/08 CXR: Patchy perihilar disease which may be asymmetric interstitial edema or infiltrate unchanged. Interval resolution of right basal atelectasis. -04/07 sp cx normal sharyn(prelim) s/p recent fall LETA Hypokalemia prostate CA stage IV, mets to bone chronic indwelling guerra catheter Plan: -Continue Cefepime #5 given HD decompensation and pending repeat cultures -04/17 SP Vanc IV #4 -04/13 SP Ceftriaxone #4 - 04/10 Sp ZOsyn #4 -/ SP IV Vancomycin #3 -2/ SP Ceftriaxone #4 -f/u cx -Monitor CBC/CMP, temperatures -aspiration precautions -Cards, renal, Uro, pulm f/u -f/u ucx, Bcx,sp cx -ICU/ETT care -poor px- consider re-evaluation of goals of care- ?Hospice Thank you for this consultation. Will continue to follow along with you. Subjective Allergies: Coded Allergies: No Known Allergies (Unverified , 04/03/19) Subjective Afebrile. FiO2 40%. No leukocytosis Objective Vital Signs Last 24 Hour Vital Signs Date Time Temp Pulse Resp B/P (MAP) Pulse Ox O2 Delivery O2 Flow Rate FiO2 04/18/19 06:44 109 13 40 04/18/19 06:00 110 23 126/73 (90) 100 04/18/19 05:00 122 15 112/70 (84) 100 04/18/19 04:00 40 04/18/19 04:00 Mechanical Ventilator 04/18/19 04:00 98.3 113 18 97/61 (73) 100 04/18/19 04:00 108 04/18/19 03:00 111 17 91/61 (71) 100 04/18/19 02:00 109 32 96/56 (69) 100 04/18/19 01:10 119 15 40 04/18/19 01:01 118 24 91/60 (70) 100 04/18/19 01:00 120 25 88/60 (69) 100 04/18/19 00:00 Mechanical Ventilator 04/18/19 00:00 98.5 123 23 131/106 (114) 93 04/17/19 23:25 113 10 40 04/17/19 23:04 115 04/17/19 23:00 115 21 98/66 (77) 100 04/17/19 22:00 112 20 88/59 (69) 100 04/17/19 21:06 114 15 40 04/17/19 21:00 114 14 91/62 (72) 100 04/17/19 20:20 91/58 04/17/19 20:01 111 04/17/19 20:00 98.5 109 24 91/58 (69) 100 04/17/19 20:00 40 04/17/19 20:00 Mechanical Ventilator 04/17/19 19:10 107 14 40 04/17/19 19:00 109 28 90/61 (71) 100 04/17/19 18:00 133 23 118/72 (87) 100 04/17/19 17:15 113 17 40 04/17/19 17:00 103/64 04/17/19 17:00 112 19 103/64 (77) 100 04/17/19 16:00 40 04/17/19 16:00 98.3 116 22 98/61 (73) 99 04/17/19 16:00 Mechanical Ventilator 04/17/19 15:33 115 04/17/19 15:00 113 18 106/70 (82) 100 04/17/19 14:49 116 18 40 04/17/19 14:00 98 18 100/60 (73) 100 04/17/19 13:07 98 14 40 04/17/19 13:00 98 17 96/60 (72) 100 04/17/19 12:00 99 04/17/19 12:00 Mechanical Ventilator 04/17/19 12:00 40 04/17/19 12:00 97.6 98 16 86/57 (67) 100 04/17/19 11:05 100 12 40 04/17/19 11:00 98 12 98/60 (73) 100 04/17/19 10:00 119 16 132/76 (94) 100 04/17/19 09:14 141/79 04/17/19 09:00 100 25 40 04/17/19 09:00 116 21 141/79 (99) 100 04/17/19 08:24 100 04/17/19 08:00 Mechanical Ventilator 04/17/19 08:00 97.8 105 18 102/66 (78) 100 04/17/19 08:00 40 04/17/19 08:00 106 04/17/19 07:26 98 14 40 Height (Feet): 5 Height (Inches): 7.00 Weight (Pounds): 166 Objective General Appearance: normal inspection, alert, Chronically Ill ENT: ETT in place Respiratory: normal inspection, lungs clear, no wheezing Cardiovascular: regular rate, rhythm, no edema Gastrointestinal: normal inspection, normal bowel sounds, non tender, soft, no guardinga Microbiology Date/Time Source Procedure Growth Status 04/15/19 21:40 Sputum Gram Stain - Final Resulted 04/15/19 21:40 Sputum Sputum Culture - Preliminary NORMAL UPPER RESPIRATORY SHARYN PRESENT Resulted Laboratory Tests Test 04/17/19 09:35 04/17/19 10:39 2/15/20 05:55 Arterial Blood pH 7.166 (7.350-7.450) 7.317 (7.350-7.450) Arterial Blood Partial Pressure CO2 75.7 mmHg (35.0-45.0) *H 57.8 mmHg (35.0-45.0) *H Arterial Blood Partial Pressure O2 56.2 mmHg (75.0-100.0) L 96.0 mmHg (75.0-100.0) Arterial Blood HCO3 26.7 mmol/L (22.0-26.0) H 28.9 mmol/L (22.0-26.0) H Arterial Blood Oxygen Saturation 85.1 % (95-100) *L 96.4 % (95-100) Arterial Blood Base Excess -2.7 (-2-2) L 2.1 (-2-2) H Antonio Test Positive Positive White Blood Count Pending Red Blood Count Pending Hemoglobin Pending Hematocrit Pending Mean Corpuscular Volume Pending Mean Corpuscular Hemoglobin Pending Mean Corpuscular Hemoglobin Concent Pending Red Cell Distribution Width Pending Platelet Count Pending Mean Platelet Volume Pending Neutrophils (%) (Auto) Pending Lymphocytes (%) (Auto) Pending Monocytes (%) (Auto) Pending Eosinophils (%) (Auto) Pending Basophils (%) (Auto) Pending Sodium Level 147 MMOL/L (136-145) H Potassium Level 3.2 MMOL/L (3.5-5.1) L Chloride Level 112 MMOL/L (98-107) H Carbon Dioxide Level 31 MMOL/L (21-32) Anion Gap 4 mmol/L (5-15) L Blood Urea Nitrogen 22 mg/dL (7-18) H Creatinine 1.4 MG/DL (0.55-1.30) H Estimat Glomerular Filtration Rate > 60 mL/min (>60) Glucose Level 109 MG/DL (74-106) H Calcium Level 9.5 MG/DL (8.5-10.1) Current Medications Medications (Trade) Dose Ordered Sig/La Nena Route PRN Reason Start Time Stop Time Status Last Admin Dose Admin Cefepime HCl 1 gm/ Dextrose 55 ml @ 110 mls/hr DAILY IVPB 04/16/19 09:00 04/21/19 08:59 04/17/19 09:13 Enoxaparin Sodium (Lovenox) 30 mg DAILY SUBQ 2/11/20 09:00 05/04/19 08:59 04/17/19 09:15 Furosemide (Lasix) 40 mg EVERY 12 HOURS IV 04/17/19 14:15 05/17/19 14:14 04/17/19 14:22 Hydralazine HCl (Apresoline) 10 mg Q12HR NG 04/13/19 21:00 05/10/19 17:59 04/17/19 09:14 Hydralazine HCl (Apresoline) 10 mg Q4H PRN IV SBP > 170mmHg 04/13/19 15:00 05/08/19 14:59 Lansoprazole (Prevacid) 30 mg DAILY ORAL 04/14/19 09:00 05/13/19 08:59 04/17/19 09:14 Lorazepam (Ativan 2mg/ml 1ml) 1 mg Q6H PRN IV For Anxiety 04/17/19 18:15 04/24/19 18:14 04/17/19 20:27 Memantine (Namenda) 5 mg BID ORAL 04/13/19 18:00 05/04/19 17:59 04/17/19 17:32 Morphine Sulfate (Morphine Sulfate) 1 mg Q4H PRN IVP PAIN 4-10 04/13/19 18:00 04/20/19 17:59 04/17/19 14:18 Norepinephrine Bitartrate 4 mg/ Dextrose 250 ml @ 0 mls/hr Q24H IV 04/13/19 17:00 05/13/19 16:59 04/14/19 22:57 Tamsulosin HCl (Flomax) 0.4 mg BEDTIME ORAL 04/13/19 21:00 05/13/19 20:59 04/17/19 20:27 Tammy Liriano MD Apr 18, 2019 07:03
--- NOTE | 2019-04-18 07:30 | NUR ---
HAND-OFF: Report given to BLANCA Corado.
--- NOTE | 2019-04-18 08:00 | NUR ---
NURSE NOTES: Received change of shift report from Siria RIOS. Pt is awake, alert, orally intubated, responds to name and able to follow commands, however pt attempts to reach/pull out ET tube and IV lines. Bilateral soft wrist restraints are in place to prevent self extubation with skin integrity at restraint site within normal limits. ETT 7.5 at 24cm right lipline with settings AC10, VT500, Peep 5.0, FIO2 40% at 100% O2sat with bilateral diminished lung sounds on auscultation. ST on manager cardiac cath, HR from 100-105. Temp 98.3F axillary. Left wrist #22 and left FA #20G peripheral IV access present, TKO, patent/intact. Left nare NGT with feeding Vital AF at goal rate of 55ml/hour. Pt is tolerating feeding with no residual noted. Abdomen is soft, round, nontender to touch with hyperactive bowel sounds. Morales catheter is present draining clear/yellow urine. Skin has sacral/lower back dressings for pressure ulcers, dry/intact. Pt is on P200 pressure releasing mattress. HOB at 30 degrees, bed locked/in lowest position, three side rails up and call light is placed within easy reach. Will continue to monitor pt and follow plan of care per MD orders and protocol.
[2019-04-18] MEDS: Cefepime HCl 1 GM in D5W 55 ML IVPB SCH (08:58)
[2019-04-18] MEDS: Memantine 5 MG TAB ORAL SCH ×2 (08:58→18:38)
[2019-04-18] MEDS: HydrALAZINE 10mg Tab NG SCH (08:59)
[2019-04-18] MEDS: Enoxaparin 30mg Inj SUBQ SCH (09:01)
--- NOTE | 2019-04-18 09:23 | Urology Progress Note ---
Assessment/Plan Status: unchanged Assessment/Plan: 1. 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 2. Urinary retention. 3. Acute kidney injury, improved. 4. Hydronephrosis, likely chronic. 5. Proteinuria. 6. UTI and colonization. 7. Hematuria. monitor clinically maintain guerra, last replaced 04/10 hand irrigated and do PRN position is satisfactory monitor renal fxn, labile likely obst of bilateral distal ureters secondary to advanced prostate ca will need to see how aggressive pt and family want to be renal fxn improved with the new guerra consider ureteral stents or nephrostomies? flomax added abx as ordered voiding trial at some point? f/u on blood cx Subjective Allergies: Coded Allergies: No Known Allergies (Unverified , 04/03/19) Subjective all noted, remain in ICU, remains intubated Objective Last 24 Hour Vital Signs Date Time Temp Pulse Resp B/P (MAP) Pulse Ox O2 Delivery O2 Flow Rate FiO2 04/18/19 08:59 87/60 04/18/19 08:41 108 19 40 04/18/19 07:00 108 13 80/57 (65) 100 04/18/19 06:44 109 13 40 04/18/19 06:00 110 23 126/73 (90) 100 04/18/19 05:00 122 15 112/70 (84) 100 04/18/19 04:00 40 04/18/19 04:00 Mechanical Ventilator 04/18/19 04:00 98.3 113 18 97/61 (73) 100 04/18/19 04:00 108 04/18/19 03:00 111 17 91/61 (71) 100 04/18/19 02:00 109 32 96/56 (69) 100 04/18/19 01:10 119 15 40 04/18/19 01:01 118 24 91/60 (70) 100 04/18/19 01:00 120 25 88/60 (69) 100 04/18/19 00:00 Mechanical Ventilator 04/18/19 00:00 98.5 123 23 131/106 (114) 93 04/17/19 23:25 113 10 40 04/17/19 23:04 115 04/17/19 23:00 115 21 98/66 (77) 100 04/17/19 22:00 112 20 88/59 (69) 100 04/17/19 21:06 114 15 40 04/17/19 21:00 114 14 91/62 (72) 100 04/17/19 20:20 91/58 04/17/19 20:01 111 04/17/19 20:00 98.5 109 24 91/58 (69) 100 04/17/19 20:00 40 04/17/19 20:00 Mechanical Ventilator 04/17/19 19:10 107 14 40 04/17/19 19:00 109 28 90/61 (71) 100 04/17/19 18:00 133 23 118/72 (87) 100 04/17/19 17:15 113 17 40 04/17/19 17:00 103/64 04/17/19 17:00 112 19 103/64 (77) 100 04/17/19 16:00 40 04/17/19 16:00 98.3 116 22 98/61 (73) 99 04/17/19 16:00 Mechanical Ventilator 04/17/19 15:33 115 04/17/19 15:00 113 18 106/70 (82) 100 04/17/19 14:49 116 18 40 04/17/19 14:00 98 18 100/60 (73) 100 04/17/19 13:07 98 14 40 04/17/19 13:00 98 17 96/60 (72) 100 04/17/19 12:00 99 04/17/19 12:00 Mechanical Ventilator 04/17/19 12:00 40 04/17/19 12:00 97.6 98 16 86/57 (67) 100 04/17/19 11:05 100 12 40 04/17/19 11:00 98 12 98/60 (73) 100 04/17/19 10:00 119 16 132/76 (94) 100 Intake and Output 04/17/19 04/18/19 19:00 07:00 Intake Total 750 ml 720 ml Output Total 1710 ml 750 ml Balance -960 ml -30 ml Free Water 90 ml 60 ml Tube Feeding 660 ml 660 ml Output Urine Total 1710 ml 750 ml # Bowel Movements 5 4 Microbiology Date/Time Source Procedure Growth Status 04/14/19 12:45 Blood Blood Culture - Preliminary NO GROWTH AFTER 72 HOURS Resulted 04/15/19 21:40 Sputum Gram Stain - Final Complete 04/15/19 21:40 Sputum Sputum Culture - Final NORMAL UPPER RESPIRATORY DAVID PRESENT Complete 04/14/19 11:25 Urine,Random Urine Culture - Final NO GROWTH AFTER 48 HOURS Complete Current Medications Medications (Trade) Dose Ordered Sig/La Nena Route PRN Reason Start Time Stop Time Status Last Admin Dose Admin Cefepime HCl 1 gm/ Dextrose 55 ml @ 110 mls/hr DAILY IVPB 04/16/19 09:00 04/21/19 08:59 04/18/19 08:58 Enoxaparin Sodium (Lovenox) 30 mg DAILY SUBQ 04/14/19 09:00 05/04/19 08:59 04/18/19 09:01 Furosemide (Lasix) 40 mg EVERY 12 HOURS IV 04/17/19 14:15 05/17/19 14:14 04/17/19 14:22 Hydralazine HCl (Apresoline) 10 mg Q12HR NG 04/13/19 21:00 05/10/19 17:59 04/17/19 09:14 Hydralazine HCl (Apresoline) 10 mg Q4H PRN IV SBP > 170mmHg 04/13/19 15:00 05/08/19 14:59 Lansoprazole (Prevacid) 30 mg DAILY ORAL 04/14/19 09:00 05/13/19 08:59 04/18/19 08:58 Lorazepam (Ativan 2mg/ml 1ml) 1 mg Q6H PRN IV For Anxiety 04/17/19 18:15 04/24/19 18:14 04/17/19 20:27 Memantine (Namenda) 5 mg BID ORAL 04/13/19 18:00 05/04/19 17:59 04/18/19 08:58 Morphine Sulfate (Morphine Sulfate) 1 mg Q4H PRN IVP PAIN 4-10 04/13/19 18:00 04/20/19 17:59 04/17/19 14:18 Norepinephrine Bitartrate 4 mg/ Dextrose 250 ml @ 0 mls/hr Q24H IV 04/13/19 17:00 05/13/19 16:59 04/14/19 22:57 Tamsulosin HCl (Flomax) 0.4 mg BEDTIME ORAL 04/13/19 21:00 05/13/19 20:59 04/17/19 20:27 Laboratory Tests 04/17/19 09:35: Arterial Blood pH 7.166*L, Arterial Blood Partial Pressure CO2 75.7*H, Arterial Blood Partial Pressure O2 56.2L, Arterial Blood HCO3 26.7H, Arterial Blood Oxygen Saturation 85.1*L, Arterial Blood Base Excess -2.7L, Antonio Test Positive 04/17/19 10:39: Arterial Blood pH 7.317L, Arterial Blood Partial Pressure CO2 57.8*H, Arterial Blood Partial Pressure O2 96.0, Arterial Blood HCO3 28.9H, Arterial Blood Oxygen Saturation 96.4, Arterial Blood Base Excess 2.1H, Antonio Test Positive 04/18/19 05:55: White Blood Count 5.6, Red Blood Count 2.56L, Hemoglobin 7.4L, Hematocrit 21.5L , Mean Corpuscular Volume 84, Mean Corpuscular Hemoglobin 28.8, Mean Corpuscular Hemoglobin Concent 34.1, Red Cell Distribution Width 15.6H, Platelet Count 166, Mean Platelet Volume 4.9L, Neutrophils (%) (Auto) , Lymphocytes (%) (Auto) , Monocytes (%) (Auto) , Eosinophils (%) (Auto) , Basophils (%) (Auto) , Neutrophils % (Manual) [Pending], Lymphocytes % (Manual) [Pending], Platelet Estimate [Pending], Platelet Morphology [Pending], Sodium Level 147H, Potassium Level 3.2L, Chloride Level 112H, Carbon Dioxide Level 31, Anion Gap 4L, Blood Urea Nitrogen 22H, Creatinine 1.4H, Estimat Glomerular Filtration Rate > 60, Glucose Level 109H, Calcium Level 9.5 Height (Feet): 5 Height (Inches): 7.00 Weight (Pounds): 166 Objective exam stable guerra indwelling, allegra urine CT A/P (04/10) noted Raz Root MD Apr 18, 2019 09:23
--- NOTE | 2019-04-18 09:38 | NUR ---
RESPIRATORY NOTES: Attempted to wean patient however he failed. Placed patient on CPAP PS +8 PEEP +5 FIO2 40%. Within 10 minutes patient became SOB. RSBI 156 - 266, VT <150mL, HR jumped from 95 to 128bpm. Placed patient back on ACVC.
--- NOTE | 2019-04-18 09:57 | Cardiac Electrophysiology PN ---
Assessment/Plan Assessment/Plan 1. Status post noninfarctional 2 separate juan antonio arrest with asystole. Both episodes happened in the setting of respiratory failure and off the Vent No evidence of ventricular tachycardia or ventricular fibrillation. Off any GARCÍA or AVN olivia EF 65%. All 3 troponins were less than 0.1 2. Recurrent Respiratory failure, extubated 04/08/19 and reintubated 04/13/19 Weaning in progress again 3. History of stage III prostate cancer, followed by Dr. Monroy and Dr Root. Morales was changed. Follows up usually at [facility] 4. Shock. Off Levophed on iv Abx. DC standing dose Hydralazine and Lasix 5. Hypercalcemia due to prostate cancer. 6. Hypernatremia. DC Lasix 7. Anemia, s/p PRBC 04/08/19. Hb 7 again. Will give another PRBC 8. Low K. Replace MIKE RN Subjective Subjective Intubated in ICU on the Vent and off Levophed x 4 days. No juan antonio while on the Vent. More alert but failed weaning again Objective Last 24 Hour Vital Signs Date Time Temp Pulse Resp B/P (MAP) Pulse Ox O2 Delivery O2 Flow Rate FiO2 04/18/19 08:59 87/60 04/18/19 08:41 108 19 40 04/18/19 07:00 108 13 80/57 (65) 100 04/18/19 06:44 109 13 40 04/18/19 06:00 110 23 126/73 (90) 100 04/18/19 05:00 122 15 112/70 (84) 100 04/18/19 04:00 40 04/18/19 04:00 Mechanical Ventilator 04/18/19 04:00 98.3 113 18 97/61 (73) 100 04/18/19 04:00 108 04/18/19 03:00 111 17 91/61 (71) 100 04/18/19 02:00 109 32 96/56 (69) 100 04/18/19 01:10 119 15 40 04/18/19 01:01 118 24 91/60 (70) 100 04/18/19 01:00 120 25 88/60 (69) 100 04/18/19 00:00 Mechanical Ventilator 04/18/19 00:00 98.5 123 23 131/106 (114) 93 04/17/19 23:25 113 10 40 2/14/20 23:04 115 04/17/19 23:00 115 21 98/66 (77) 100 04/17/19 22:00 112 20 88/59 (69) 100 04/17/19 21:06 114 15 40 04/17/19 21:00 114 14 91/62 (72) 100 04/17/19 20:20 91/58 04/17/19 20:01 111 04/17/19 20:00 98.5 109 24 91/58 (69) 100 04/17/19 20:00 40 04/17/19 20:00 Mechanical Ventilator 04/17/19 19:10 107 14 40 04/17/19 19:00 109 28 90/61 (71) 100 04/17/19 18:00 133 23 118/72 (87) 100 04/17/19 17:15 113 17 40 04/17/19 17:00 103/64 04/17/19 17:00 112 19 103/64 (77) 100 04/17/19 16:00 40 04/17/19 16:00 98.3 116 22 98/61 (73) 99 04/17/19 16:00 Mechanical Ventilator 04/17/19 15:33 115 04/17/19 15:00 113 18 106/70 (82) 100 04/17/19 14:49 116 18 40 04/17/19 14:00 98 18 100/60 (73) 100 04/17/19 13:07 98 14 40 04/17/19 13:00 98 17 96/60 (72) 100 04/17/19 12:00 99 04/17/19 12:00 Mechanical Ventilator 04/17/19 12:00 40 04/17/19 12:00 97.6 98 16 86/57 (67) 100 04/17/19 11:05 100 12 40 04/17/19 11:00 98 12 98/60 (73) 100 04/17/19 10:00 119 16 132/76 (94) 100 Intake and Output 04/17/19 04/18/19 19:00 07:00 Intake Total 750 ml 720 ml Output Total 1710 ml 750 ml Balance -960 ml -30 ml Free Water 90 ml 60 ml Tube Feeding 660 ml 660 ml Output Urine Total 1710 ml 750 ml # Bowel Movements 5 4 Laboratory Tests Test 04/17/19 10:39 04/18/19 05:55 Arterial Blood pH 7.317 (7.350-7.450) Arterial Blood Partial Pressure CO2 57.8 mmHg (35.0-45.0) *H Arterial Blood Partial Pressure O2 96.0 mmHg (75.0-100.0) Arterial Blood HCO3 28.9 mmol/L (22.0-26.0) H Arterial Blood Oxygen Saturation 96.4 % (95-100) Arterial Blood Base Excess 2.1 (-2-2) H Antonio Test Positive White Blood Count 5.6 K/UL (4.8-10.8) Red Blood Count 2.56 M/UL (4.70-6.10) L Hemoglobin 7.4 G/DL (14.2-18.0) L Hematocrit 21.5 % (42.0-52.0) L Mean Corpuscular Volume 84 FL (80-99) Mean Corpuscular Hemoglobin 28.8 PG (27.0-31.0) Mean Corpuscular Hemoglobin Concent 34.1 G/DL (32.0-36.0) Red Cell Distribution Width 15.6 % (11.6-14.8) H Platelet Count 166 K/UL (150-450) Mean Platelet Volume 4.9 FL (6.5-10.1) L Neutrophils (%) (Auto) % (45.0-75.0) Lymphocytes (%) (Auto) % (20.0-45.0) Monocytes (%) (Auto) % (1.0-10.0) Eosinophils (%) (Auto) % (0.0-3.0) Basophils (%) (Auto) % (0.0-2.0) Neutrophils % (Manual) Pending Lymphocytes % (Manual) Pending Platelet Estimate Pending Platelet Morphology Pending Sodium Level 147 MMOL/L (136-145) H Potassium Level 3.2 MMOL/L (3.5-5.1) L Chloride Level 112 MMOL/L (98-107) H Carbon Dioxide Level 31 MMOL/L (21-32) Anion Gap 4 mmol/L (5-15) L Blood Urea Nitrogen 22 mg/dL (7-18) H Creatinine 1.4 MG/DL (0.55-1.30) H Estimat Glomerular Filtration Rate > 60 mL/min (>60) Glucose Level 109 MG/DL (74-106) H Calcium Level 9.5 MG/DL (8.5-10.1) Microbiology Date/Time Source Procedure Growth Status 04/15/19 21:40 Sputum Gram Stain - Final Complete 04/15/19 21:40 Sputum Sputum Culture - Final NORMAL UPPER RESPIRATORY DAVID PRESENT Complete Objective HEENT: No JVD. Orally intubated LUNGS: Coarse rhonchi. CARDIOVASCULAR: Regular S1 and S2 ABDOMEN: Soft and nondistended. EXTREMITIES: No pitting edema. Nain Cortez MD Apr 18, 2019 09:57
--- NOTE | 2019-04-18 10:00 | NUR ---
NURSE NOTES: AM meds were administered, while Lasix and Hydralazine were held due to hypotension, 86/50. Pt was seen by Dr Cortez, and updated on pt's condition. Per MD orders, Lasix and Hydralazine are now DC'd. Order was received for KDur 40meq NG x1, and transfusion of 1unit PRBC. Pt was attempted to be weaned this morning by RT, however did not tolerate weaning, and is now placed back on AC vent settings. VS remain stable. Oral care was done and pt was suctioned, with output of thick/yellow moderate amount of secretions. Pt had BM x1, liquid/greenish/brown stool. Pt was cleaned, gown/bed linens were changed, and pt was repositioned with bilateral extremities elevated on pillows.
--- NOTE | 2019-04-18 10:54 | Pulmonology Progress Note ---
Assessment/Plan Assessment/Plan IMPRESSION: 1. Status post asystolic cardiac arrest. Again on 04/13/19 2. Respiratory failure, re-intubated 3. Altered mental status. 4. Hypernatremia. Corrected. 5. Hypokalemia . Corrected. 6. History of COPD. 7. Prostate CA. DISCUSSION: 1. Discussed with cardiology and PMD 2. Discussed with daughter in law 3. Poor prognosis 4. continue weaning efforts 5. Dc diuretics 6. Transfuse CXR looking better; will attempt wean daily Ganesh Mathews M.D. Subjective Interval Events: Diuresed 1L last 24 hours; unable to wean Constitutional: Reports: no symptoms HEENT: Repors: no symptoms Respiratory: Reports: no symptoms Cardiovascular: Reports: no symptoms Gastrointestinal/Abdominal: Reports: no symptoms Allergies: Coded Allergies: No Known Allergies (Unverified , 04/03/19) Objective Last 24 Hour Vital Signs Date Time Temp Pulse Resp B/P (MAP) Pulse Ox O2 Delivery O2 Flow Rate FiO2 04/18/19 08:59 87/60 04/18/19 08:41 108 19 40 04/18/19 07:00 108 13 80/57 (65) 100 04/18/19 06:44 109 13 40 04/18/19 06:00 110 23 126/73 (90) 100 04/18/19 05:00 122 15 112/70 (84) 100 04/18/19 04:00 40 04/18/19 04:00 Mechanical Ventilator 04/18/19 04:00 98.3 113 18 97/61 (73) 100 04/18/19 04:00 108 04/18/19 03:00 111 17 91/61 (71) 100 04/18/19 02:00 109 32 96/56 (69) 100 04/18/19 01:10 119 15 40 04/18/19 01:01 118 24 91/60 (70) 100 04/18/19 01:00 120 25 88/60 (69) 100 04/18/19 00:00 Mechanical Ventilator 04/18/19 00:00 98.5 123 23 131/106 (114) 93 04/17/19 23:25 113 10 40 04/17/19 23:04 115 04/17/19 23:00 115 21 98/66 (77) 100 04/17/19 22:00 112 20 88/59 (69) 100 04/17/19 21:06 114 15 40 04/17/19 21:00 114 14 91/62 (72) 100 04/17/19 20:20 91/58 04/17/19 20:01 111 04/17/19 20:00 98.5 109 24 91/58 (69) 100 04/17/19 20:00 40 04/17/19 20:00 Mechanical Ventilator 04/17/19 19:10 107 14 40 04/17/19 19:00 109 28 90/61 (71) 100 04/17/19 18:00 133 23 118/72 (87) 100 04/17/19 17:15 113 17 40 04/17/19 17:00 103/64 04/17/19 17:00 112 19 103/64 (77) 100 04/17/19 16:00 40 04/17/19 16:00 98.3 116 22 98/61 (73) 99 04/17/19 16:00 Mechanical Ventilator 04/17/19 15:33 115 04/17/19 15:00 113 18 106/70 (82) 100 04/17/19 14:49 116 18 40 04/17/19 14:00 98 18 100/60 (73) 100 04/17/19 13:07 98 14 40 04/17/19 13:00 98 17 96/60 (72) 100 04/17/19 12:00 99 04/17/19 12:00 Mechanical Ventilator 04/17/19 12:00 40 04/17/19 12:00 97.6 98 16 86/57 (67) 100 04/17/19 11:05 100 12 40 04/17/19 11:00 98 12 98/60 (73) 100 Intake and Output 04/17/19 04/18/19 19:00 07:00 Intake Total 750 ml 720 ml Output Total 1710 ml 750 ml Balance -960 ml -30 ml Free Water 90 ml 60 ml Tube Feeding 660 ml 660 ml Output Urine Total 1710 ml 750 ml # Bowel Movements 5 4 General Appearance: no acute distress HEENT: normocephalic Respiratory/Chest: chest wall non-tender, lungs clear Cardiovascular: normal peripheral pulses, normal rate Abdomen: normal bowel sounds Microbiology Date/Time Source Procedure Growth Status 04/15/19 21:40 Sputum Gram Stain - Final Complete 04/15/19 21:40 Sputum Sputum Culture - Final NORMAL UPPER RESPIRATORY DAVID PRESENT Complete Laboratory Tests 04/18/19 05:55: White Blood Count 5.6, Red Blood Count 2.56L, Hemoglobin 7.4L, Hematocrit 21.5L , Mean Corpuscular Volume 84, Mean Corpuscular Hemoglobin 28.8, Mean Corpuscular Hemoglobin Concent 34.1, Red Cell Distribution Width 15.6H, Platelet Count 166, Mean Platelet Volume 4.9L, Neutrophils (%) (Auto) , Lymphocytes (%) (Auto) , Monocytes (%) (Auto) , Eosinophils (%) (Auto) , Basophils (%) (Auto) , Differential Total Cells Counted 100, Neutrophils % ( Manual) 79H, Lymphocytes % (Manual) 10L, Monocytes % (Manual) 7, Eosinophils % ( Manual) 4H, Basophils % (Manual) 0, Band Neutrophils 0, Platelet Estimate Adequate, Platelet Morphology Normal, Hypochromasia 3+, Anisocytosis 1+, Spherocytes 3+, Sodium Level 147H, Potassium Level 3.2L, Chloride Level 112H, Carbon Dioxide Level 31, Anion Gap 4L, Blood Urea Nitrogen 22H, Creatinine 1.4H , Estimat Glomerular Filtration Rate > 60, Glucose Level 109H, Calcium Level 9.5 04/18/19 10:02: Arterial Blood pH 7.397, Arterial Blood Partial Pressure CO2 49.6H, Arterial Blood Partial Pressure O2 82.6, Arterial Blood HCO3 29.8H, Arterial Blood Oxygen Saturation 95.7, Arterial Blood Base Excess 4.4H, Antonio Test Positive Current Medications Medications (Trade) Dose Ordered Sig/La Nena Route PRN Reason Start Time Stop Time Status Last Admin Dose Admin Cefepime HCl 1 gm/ Dextrose 55 ml @ 110 mls/hr DAILY IVPB 04/16/19 09:00 04/21/19 08:59 04/18/19 08:58 Enoxaparin Sodium (Lovenox) 30 mg DAILY SUBQ 04/14/19 09:00 05/04/19 08:59 04/18/19 09:01 Hydralazine HCl (Apresoline) 10 mg Q4H PRN IV SBP > 170mmHg 04/13/19 15:00 05/08/19 14:59 Lansoprazole (Prevacid) 30 mg DAILY ORAL 04/14/19 09:00 05/13/19 08:59 04/18/19 08:58 Lorazepam (Ativan 2mg/ml 1ml) 1 mg Q6H PRN IV For Anxiety 04/17/19 18:15 04/24/19 18:14 04/17/19 20:27 Memantine (Namenda) 5 mg BID ORAL 04/13/19 18:00 05/04/19 17:59 04/18/19 08:58 Morphine Sulfate (Morphine Sulfate) 1 mg Q4H PRN IVP PAIN 4-10 04/13/19 18:00 04/20/19 17:59 04/17/19 14:18 Norepinephrine Bitartrate 4 mg/ Dextrose 250 ml @ 0 mls/hr Q24H IV 04/13/19 17:00 05/13/19 16:59 04/14/19 22:57 Potassium Chloride (K-Dur) 40 meq ONCE ORAL 04/18/19 10:00 04/18/19 11:00 04/18/19 10:46 Tamsulosin HCl (Flomax) 0.4 mg BEDTIME ORAL 04/13/19 21:00 05/13/19 20:59 04/17/19 20:27 Ganesh Mathews MD Apr 18, 2019 10:54
[2019-04-18] MEDS ORDERED: Heparin1,000 units/500ml Premix(Conc:2 units/ml) IV PRN (11:00)
[2019-04-18] MEDS ORDERED: Lidocaine 1% Plain 30 ml INJ PRN (11:00)
[2019-04-18] MEDS: Albuterol/Ipratropium 3ml neb HHN SCH ×4 (11:00→23:07)
[2019-04-18] MEDS: Acetylcysteine 20% Soln 4ml HHN SCH ×4 (11:00→23:07)
--- NOTE | 2019-04-18 12:00 | NUR ---
NURSE NOTES: Pt was seen by Dr Mathews, and MD was updated on pt's condition. Per MD order, Duoneb and Mucomyst are now added Q4hr to regimen. Order was also received for PICC line placement. Awaiting for family/next of kin consent. Spoke with NOK from [employer] regarding consent, who states will "speak with other family/next of kin" prior to decision for PICC.
--- NOTE | 2019-04-18 12:15 | NUR ---
NURSE NOTES: Pt has family/visitors at bedside. VS remain stable. Pt remains on AC vent settings with 100% O2Sat. ST on ict trainer and afebrile. Pt was repositioned, and oral care was done. Pt continues to have moderate amount of thick/yellow secretions, Dr Mathews is aware and pt is now receiving breathing treatments per MD order.
--- NOTE | 2019-04-18 12:55 | Nephrology Progress Note ---
Assessment/Plan Status: unchanged Assessment/Plan: A/P 1. LETA. multifact ATN. - Cr at 1.4 2. Prostate cancer with tremendously elevated PSA - Per Hematology/Oncology. 3. Hypokalemia. being replaced prn 4. Sepsis and UTI per Infectious Disease mgmt 5. Hypernatremia- re add D5W 6- Hypercalcemia of malignancy- corrected 7- Resp FL- failing weaning Subjective Date patient seen: Apr 18, 2019 Time patient seen: 12:51 ROS Limited/Unobtainable: Yes Allergies: Coded Allergies: No Known Allergies (Unverified , 04/03/19) Subjective Patient intubated. Failing weaning Objective Last 24 Hour Vital Signs Date Time Temp Pulse Resp B/P (MAP) Pulse Ox O2 Delivery O2 Flow Rate FiO2 04/18/19 12:31 107 13 100 Mechanical Ventilator 50.0 40 04/18/19 12:30 107 12 40 04/18/19 12:00 40 04/18/19 12:00 Mechanical Ventilator 04/18/19 12:00 98.6 109 16 99/60 (73) 100 04/18/19 11:04 121 14 40 04/18/19 11:00 112 17 90/59 (69) 100 04/18/19 10:00 110 27 95/60 (72) 100 04/18/19 09:00 108 18 95/60 (72) 100 04/18/19 08:59 87/60 04/18/19 08:41 108 19 40 04/18/19 08:00 40 04/18/19 08:00 Mechanical Ventilator 04/18/19 08:00 119 04/18/19 08:00 98.3 107 16 87/60 (69) 100 04/18/19 07:00 108 13 80/57 (65) 100 04/18/19 06:44 109 13 40 04/18/19 06:00 110 23 126/73 (90) 100 04/18/19 05:00 122 15 112/70 (84) 100 04/18/19 04:00 40 04/18/19 04:00 Mechanical Ventilator 04/18/19 04:00 98.3 113 18 97/61 (73) 100 04/18/19 04:00 108 04/18/19 03:00 111 17 91/61 (71) 100 04/18/19 02:00 109 32 96/56 (69) 100 04/18/19 01:10 119 15 40 04/18/19 01:01 118 24 91/60 (70) 100 04/18/19 01:00 120 25 88/60 (69) 100 04/18/19 00:00 Mechanical Ventilator 04/18/19 00:00 98.5 123 23 131/106 (114) 93 04/17/19 23:25 113 10 40 04/17/19 23:04 115 04/17/19 23:00 115 21 98/66 (77) 100 04/17/19 22:00 112 20 88/59 (69) 100 04/17/19 21:06 114 15 40 04/17/19 21:00 114 14 91/62 (72) 100 04/17/19 20:20 91/58 04/17/19 20:01 111 04/17/19 20:00 98.5 109 24 91/58 (69) 100 04/17/19 20:00 40 04/17/19 20:00 Mechanical Ventilator 04/17/19 19:10 107 14 40 04/17/19 19:00 109 28 90/61 (71) 100 04/17/19 18:00 133 23 118/72 (87) 100 04/17/19 17:15 113 17 40 04/17/19 17:00 103/64 04/17/19 17:00 112 19 103/64 (77) 100 04/17/19 16:00 40 04/17/19 16:00 98.3 116 22 98/61 (73) 99 04/17/19 16:00 Mechanical Ventilator 04/17/19 15:33 115 04/17/19 15:00 113 18 106/70 (82) 100 04/17/19 14:49 116 18 40 04/17/19 14:00 98 18 100/60 (73) 100 04/17/19 13:07 98 14 40 04/17/19 13:00 98 17 96/60 (72) 100 Intake and Output 04/17/19 04/18/19 19:00 07:00 Intake Total 750 ml 720 ml Output Total 1710 ml 750 ml Balance -960 ml -30 ml Free Water 90 ml 60 ml Tube Feeding 660 ml 660 ml Output Urine Total 1710 ml 750 ml # Bowel Movements 5 4 Laboratory Tests 04/18/19 05:55: White Blood Count 5.6, Red Blood Count 2.56L, Hemoglobin 7.4L, Hematocrit 21.5L , Mean Corpuscular Volume 84, Mean Corpuscular Hemoglobin 28.8, Mean Corpuscular Hemoglobin Concent 34.1, Red Cell Distribution Width 15.6H, Platelet Count 166, Mean Platelet Volume 4.9L, Neutrophils (%) (Auto) , Lymphocytes (%) (Auto) , Monocytes (%) (Auto) , Eosinophils (%) (Auto) , Basophils (%) (Auto) , Differential Total Cells Counted 100, Neutrophils % ( Manual) 79H, Lymphocytes % (Manual) 10L, Monocytes % (Manual) 7, Eosinophils % ( Manual) 4H, Basophils % (Manual) 0, Band Neutrophils 0, Platelet Estimate Adequate, Platelet Morphology Normal, Hypochromasia 3+, Anisocytosis 1+, Spherocytes 3+, Sodium Level 147H, Potassium Level 3.2L, Chloride Level 112H, Carbon Dioxide Level 31, Anion Gap 4L, Blood Urea Nitrogen 22H, Creatinine 1.4H , Estimat Glomerular Filtration Rate > 60, Glucose Level 109H, Calcium Level 9.5 04/18/19 10:02: Arterial Blood pH 7.397, Arterial Blood Partial Pressure CO2 49.6H, Arterial Blood Partial Pressure O2 82.6, Arterial Blood HCO3 29.8H, Arterial Blood Oxygen Saturation 95.7, Arterial Blood Base Excess 4.4H, Antonio Test Positive Height (Feet): 5 Height (Inches): 7.00 Weight (Pounds): 167 General Appearance: no apparent distress EENT: normal ENT inspection Neck: normal alignment, supple Cardiovascular: normal rate, regular rhythm Respiratory/Chest: rhonchi - bilaterally Abdomen: non tender, soft Edema: no edema noted Arm (L), no edema noted Arm (R), no edema noted Leg (L), no edema noted Leg (R), no edema noted Pedal (L), no edema noted Pedal (R), no edema noted Generalized Carlos White MD Apr 18, 2019 12:55
--- NOTE | 2019-04-18 13:30 | NUR ---
NURSE NOTES: D5W is now infusing at 50ml/hour per Dr Pascual order, who saw pt at bedside. Chest xray was also done.
--- NOTE | 2019-04-18 14:10 | NUR ---
NURSE NOTES: Pt is awake, watching TV, still attempts to reach/pull out ETT and IV lines, remains with bilateral soft wrist restraints to prevent self-extubation. VS remain stable. Awaiting for blood bank for 1unit of PRBC. Pt was repositioned and orally/ET suctioned. Denies any pain or discomfort when inquired.
--- NOTE | 2019-04-18 15:06 | Diagnostic Imaging Report ---
EXAM: XR Chest, 1 View CLINICAL HISTORY: F/U TECHNIQUE: Frontal view of the chest. COMPARISON: Chest radiograph on 04/17/2019 FINDINGS: Hardware: Endotracheal tube terminates in the region of the mid thoracic trachea. Enteric tube courses past the diaphragm and out of the [id number]. Lungs/pleura: Slightly increased hazy and interstitial opacities bilaterally. Small left pleural effusion. Heart/mediastinum: Normal. No cardiomegaly. Soft tissues: Unremarkable. Bones: No acute fracture. Upper abdomen: Normal. IMPRESSION: 1. Slightly increased hazy and interstitial opacities bilaterally which may represent pulmonary edema and pulmonary vasculature congestion versus infectious/pulmonary process. Small left pleural effusion. 2. Endotracheal tube terminates in the region of the mid thoracic trachea. Enteric tube courses past the diaphragm and out of the field-of- view.
--- NOTE | 2019-04-18 15:17 | Surgery Progress Note ---
Surgery Progress Note Subjective Procedure Performed right femoral central venous catheter insertion Additional Comments no acute events comfortable unable to wean Objective Last 24 Hour Vital Signs Date Time Temp Pulse Resp B/P (MAP) Pulse Ox O2 Delivery O2 Flow Rate FiO2 04/18/19 14:00 108 20 103/62 (76) 100 04/18/19 13:00 107 17 104/65 (78) 100 04/18/19 12:31 107 13 100 Mechanical Ventilator 50.0 40 04/18/19 12:30 107 12 40 04/18/19 12:00 40 04/18/19 12:00 Mechanical Ventilator 04/18/19 12:00 105 04/18/19 12:00 98.6 109 16 99/60 (73) 100 04/18/19 11:04 121 14 40 04/18/19 11:00 112 17 90/59 (69) 100 04/18/19 10:00 110 27 95/60 (72) 100 04/18/19 09:00 108 18 95/60 (72) 100 04/18/19 08:59 87/60 04/18/19 08:41 108 19 40 04/18/19 08:00 40 04/18/19 08:00 Mechanical Ventilator 04/18/19 08:00 119 04/18/19 08:00 98.3 107 16 87/60 (69) 100 04/18/19 07:00 108 13 80/57 (65) 100 04/18/19 06:44 109 13 40 04/18/19 06:00 110 23 126/73 (90) 100 04/18/19 05:00 122 15 112/70 (84) 100 04/18/19 04:00 40 04/18/19 04:00 Mechanical Ventilator 04/18/19 04:00 98.3 113 18 97/61 (73) 100 04/18/19 04:00 108 04/18/19 03:00 111 17 91/61 (71) 100 04/18/19 02:00 109 32 96/56 (69) 100 04/18/19 01:10 119 15 40 04/18/19 01:01 118 24 91/60 (70) 100 04/18/19 01:00 120 25 88/60 (69) 100 04/18/19 00:00 Mechanical Ventilator 04/18/19 00:00 98.5 123 23 131/106 (114) 93 04/17/19 23:25 113 10 40 04/17/19 23:04 115 04/17/19 23:00 115 21 98/66 (77) 100 04/17/19 22:00 112 20 88/59 (69) 100 04/17/19 21:06 114 15 40 04/17/19 21:00 114 14 91/62 (72) 100 04/17/19 20:20 91/58 04/17/19 20:01 111 04/17/19 20:00 98.5 109 24 91/58 (69) 100 04/17/19 20:00 40 04/17/19 20:00 Mechanical Ventilator 04/17/19 19:10 107 14 40 04/17/19 19:00 109 28 90/61 (71) 100 04/17/19 18:00 133 23 118/72 (87) 100 04/17/19 17:15 113 17 40 04/17/19 17:00 103/64 04/17/19 17:00 112 19 103/64 (77) 100 04/17/19 16:00 40 04/17/19 16:00 98.3 116 22 98/61 (73) 99 04/17/19 16:00 Mechanical Ventilator 04/17/19 15:33 115 I&O Intake and Output 04/17/19 04/18/19 19:00 07:00 Intake Total 750 ml 720 ml Output Total 1710 ml 750 ml Balance -960 ml -30 ml Free Water 90 ml 60 ml Tube Feeding 660 ml 660 ml Output Urine Total 1710 ml 750 ml # Bowel Movements 5 4 Dressing: other Wound: other Drains: other Cardiovascular: RSR Respiratory: decreased breath sounds Abdomen: soft, present bowel sounds Extremities: no cyanosis Laboratory Tests Test 04/18/19 05:55 04/18/19 10:02 White Blood Count 5.6 K/UL (4.8-10.8) Red Blood Count 2.56 M/UL (4.70-6.10) L Hemoglobin 7.4 G/DL (14.2-18.0) L Hematocrit 21.5 % (42.0-52.0) L Mean Corpuscular Volume 84 FL (80-99) Mean Corpuscular Hemoglobin 28.8 PG (27.0-31.0) Mean Corpuscular Hemoglobin Concent 34.1 G/DL (32.0-36.0) Red Cell Distribution Width 15.6 % (11.6-14.8) H Platelet Count 166 K/UL (150-450) Mean Platelet Volume 4.9 FL (6.5-10.1) L Neutrophils (%) (Auto) % (45.0-75.0) Lymphocytes (%) (Auto) % (20.0-45.0) Monocytes (%) (Auto) % (1.0-10.0) Eosinophils (%) (Auto) % (0.0-3.0) Basophils (%) (Auto) % (0.0-2.0) Differential Total Cells Counted 100 Neutrophils % (Manual) 79 % (45-75) H Lymphocytes % (Manual) 10 % (20-45) L Monocytes % (Manual) 7 % (1-10) Eosinophils % (Manual) 4 % (0-3) H Basophils % (Manual) 0 % (0-2) Band Neutrophils 0 % (0-8) Platelet Estimate Adequate Platelet Morphology Normal Hypochromasia 3+ Anisocytosis 1+ Spherocytes 3+ Sodium Level 147 MMOL/L (136-145) H Potassium Level 3.2 MMOL/L (3.5-5.1) L Chloride Level 112 MMOL/L (98-107) H Carbon Dioxide Level 31 MMOL/L (21-32) Anion Gap 4 mmol/L (5-15) L Blood Urea Nitrogen 22 mg/dL (7-18) H Creatinine 1.4 MG/DL (0.55-1.30) H Estimat Glomerular Filtration Rate > 60 mL/min (>60) Glucose Level 109 MG/DL (74-106) H Calcium Level 9.5 MG/DL (8.5-10.1) Arterial Blood pH 7.397 (7.350-7.450) Arterial Blood Partial Pressure CO2 49.6 mmHg (35.0-45.0) H Arterial Blood Partial Pressure O2 82.6 mmHg (75.0-100.0) Arterial Blood HCO3 29.8 mmol/L (22.0-26.0) H Arterial Blood Oxygen Saturation 95.7 % (95-100) Arterial Blood Base Excess 4.4 (-2-2) H Antonio Test Positive Plan Problems: (1) Cardiac arrest Assessment & Plan: Acute deterioration Cardiovascular lopez ACLS required for resuscitation Still full code Hypotensive intensive care unit requiring a new central venous catheter see note Antibiotics as per infectious caries Hold tube feeds Vent management cont current treatment improving wean vent possible extubate soon trend labs resume tube feeds will follow with fermin thank you (2) Stage III adenocarcinoma of prostate Assessment & Plan: patient with state 3 prostate cancer pending treatment at [facility] unlikely related to acute cardiac arrest this am abd exam with mild distention pending KUB no acute surgical intervention planned onc input thank you will follow with Jay Conrad Apr 18, 2019 15:17
[2019-04-18] MEDS ORDERED: NS 275ml ONE (15:28)
[2019-04-18] MEDS ORDERED: Tubing IV Blood Pump IV ONE (15:28)
[2019-04-18] MEDS ORDERED: Sterile Water Irrig 1000ml IRRIG ONE (15:28)
--- NOTE | 2019-04-18 15:49 | General Progress Note ---
Assessment/Plan Problem List: (1) UTI (urinary tract infection) ICD Codes: N39.0 - Urinary tract infection, site not specified SNOMED: 03880441 (2) Weak ICD Codes: R53.1 - Weakness SNOMED: 24620482 (3) Anemia ICD Codes: D64.9 - Anemia, unspecified SNOMED: 500672278 (4) Dehydration ICD Codes: E86.0 - Dehydration SNOMED: 29112372, 05780218 (5) Episode of generalized weakness ICD Codes: R53.1 - Weakness SNOMED: 28561583 (6) Stage III adenocarcinoma of prostate ICD Codes: C61 - Malignant neoplasm of prostate SNOMED: 837333788, 33697217 Status: unchanged Assessment/Plan: poor prognosis anemia reviewed chart andlabs resp insuff afebrile Subjective ROS Limited/Unobtainable: Yes Allergies: Coded Allergies: No Known Allergies (Unverified , 04/03/19) Objective Last 24 Hour Vital Signs Date Time Temp Pulse Resp B/P (MAP) Pulse Ox O2 Delivery O2 Flow Rate FiO2 04/18/19 15:12 102 12 100 Mechanical Ventilator 40 100 10 40 04/18/19 14:00 108 20 103/62 (76) 100 04/18/19 13:00 107 17 104/65 (78) 100 04/18/19 12:31 107 13 100 Mechanical Ventilator 50.0 40 04/18/19 12:30 107 12 40 04/18/19 12:00 40 04/18/19 12:00 Mechanical Ventilator 04/18/19 12:00 105 04/18/19 12:00 98.6 109 16 99/60 (73) 100 04/18/19 11:04 121 14 40 04/18/19 11:00 112 17 90/59 (69) 100 04/18/19 10:00 110 27 95/60 (72) 100 04/18/19 09:00 108 18 95/60 (72) 100 04/18/19 08:59 87/60 04/18/19 08:41 108 19 40 04/18/19 08:00 40 04/18/19 08:00 Mechanical Ventilator 04/18/19 08:00 119 04/18/19 08:00 98.3 107 16 87/60 (69) 100 04/18/19 07:00 108 13 80/57 (65) 100 04/18/19 06:44 109 13 40 04/18/19 06:00 110 23 126/73 (90) 100 04/18/19 05:00 122 15 112/70 (84) 100 04/18/19 04:00 40 04/18/19 04:00 Mechanical Ventilator 04/18/19 04:00 98.3 113 18 97/61 (73) 100 04/18/19 04:00 108 04/18/19 03:00 111 17 91/61 (71) 100 04/18/19 02:00 109 32 96/56 (69) 100 04/18/19 01:10 119 15 40 04/18/19 01:01 118 24 91/60 (70) 100 04/18/19 01:00 120 25 88/60 (69) 100 04/18/19 00:00 Mechanical Ventilator 04/18/19 00:00 98.5 123 23 131/106 (114) 93 04/17/19 23:25 113 10 40 04/17/19 23:04 115 04/17/19 23:00 115 21 98/66 (77) 100 04/17/19 22:00 112 20 88/59 (69) 100 04/17/19 21:06 114 15 40 04/17/19 21:00 114 14 91/62 (72) 100 04/17/19 20:20 91/58 04/17/19 20:01 111 04/17/19 20:00 98.5 109 24 91/58 (69) 100 04/17/19 20:00 40 04/17/19 20:00 Mechanical Ventilator 04/17/19 19:10 107 14 40 04/17/19 19:00 109 28 90/61 (71) 100 04/17/19 18:00 133 23 118/72 (87) 100 04/17/19 17:15 113 17 40 04/17/19 17:00 103/64 04/17/19 17:00 112 19 103/64 (77) 100 04/17/19 16:00 40 04/17/19 16:00 98.3 116 22 98/61 (73) 99 04/17/19 16:00 Mechanical Ventilator Intake and Output 04/17/19 04/18/19 19:00 07:00 Intake Total 750 ml 720 ml Output Total 1710 ml 750 ml Balance -960 ml -30 ml Free Water 90 ml 60 ml Tube Feeding 660 ml 660 ml Output Urine Total 1710 ml 750 ml # Bowel Movements 5 4 Laboratory Tests 04/18/19 05:55: White Blood Count 5.6, Red Blood Count 2.56L, Hemoglobin 7.4L, Hematocrit 21.5L , Mean Corpuscular Volume 84, Mean Corpuscular Hemoglobin 28.8, Mean Corpuscular Hemoglobin Concent 34.1, Red Cell Distribution Width 15.6H, Platelet Count 166, Mean Platelet Volume 4.9L, Neutrophils (%) (Auto) , Lymphocytes (%) (Auto) , Monocytes (%) (Auto) , Eosinophils (%) (Auto) , Basophils (%) (Auto) , Differential Total Cells Counted 100, Neutrophils % ( Manual) 79H, Lymphocytes % (Manual) 10L, Monocytes % (Manual) 7, Eosinophils % ( Manual) 4H, Basophils % (Manual) 0, Band Neutrophils 0, Platelet Estimate Adequate, Platelet Morphology Normal, Hypochromasia 3+, Anisocytosis 1+, Spherocytes 3+, Sodium Level 147H, Potassium Level 3.2L, Chloride Level 112H, Carbon Dioxide Level 31, Anion Gap 4L, Blood Urea Nitrogen 22H, Creatinine 1.4H , Estimat Glomerular Filtration Rate > 60, Glucose Level 109H, Calcium Level 9.5 04/18/19 10:02: Arterial Blood pH 7.397, Arterial Blood Partial Pressure CO2 49.6H, Arterial Blood Partial Pressure O2 82.6, Arterial Blood HCO3 29.8H, Arterial Blood Oxygen Saturation 95.7, Arterial Blood Base Excess 4.4H, Antonio Test Positive Height (Feet): 5 Height (Inches): 7.00 Weight (Pounds): 167 Cardiovascular: normal rate Respiratory/Chest: lungs clear Shay Oreilly MD Apr 18, 2019 15:49
--- NOTE | 2019-04-18 16:00 | NUR ---
NURSE NOTES: Blood transfusion was started for 1unit of PRBC. VS remain stable, and pt is afebrile. Consent is filed in pt's chart. Dr Nielson was contacted regarding pt's liquid stool output and order was received for stool collection for CDiff and rectal tube placement.
--- NOTE | 2019-04-18 17:00 | NUR ---
NURSE NOTES: Stool specimen was collected and sent to lab for CDiff/stool culture processing. Pt continues to have liquid/diarrhea. Rectal tube insertion was attempted x3, however without success, as pt is fighting and squeezing the tube out of his anus. Will endorse to production shift supervisor.
--- NOTE | 2019-04-18 18:00 | NUR ---
NURSE NOTES: Blood transfusion is completed. Pt received 1unit of PRBC as ordered. VS remain stable. Pt tolerated well with no s/s of any adverse or allergic reactions noted.
--- NOTE | 2019-04-18 19:25 | NUR ---
HAND-OFF: Report given to Rupert RIOS. Endorsed plan of care.
--- NOTE | 2019-04-18 19:33 | NUR ---
NURSE NOTES: SBAR from Mickie RIOS. Currently patient is awake and oriented to person, place, and purpose. Patients BP is 110/73, HR is 116 ST, SpO2 is 100% and RR 14. Patient is orally intubated with ETT size 7.5, and 2cm at lower lip line. AC 10, 500tv, 40% FiO2 and peep of 5. Tolerating well on current vent settings. Receiving Vital AF at 55ml via NGT. No BM at this time. Peripheral IV lines noted, L wrist 22G and L FA 20G, both IV lines are patent, intact and asymptomatic. Receiving D5W at 50ml/hr. p200 mattress noted. Skin assessment done and noted. No acute distress at this time. Bilateral wrist restraints noted, skin is intact and pulses are present. Call light is within reach and safety measures in room are in place. Will continue to monitor.
[2019-04-18] MEDS: Tamsulosin 0.4mg cap ORAL SCH (19:56)
[2019-04-18] MEDS: Dyna-Hex 2% Top Sol 2oz TOPIC SCH (19:56)
--- NOTE | 2019-04-18 20:00 | NUR ---
NURSE NOTES: Patient had BM, soft-diarrhea Cleaned and repositioned Oral care given Afebrile Vitals stable.
--- NOTE | 2019-04-18 22:00 | NUR ---
NURSE NOTES: Repositioned Remains awake and oriented NAD at this time Vitals remains stable
[2019-04-19] VITALS (28 sets, daily range): BP systolic 89–159; BP diastolic 57–89
--- NOTE | 2019-04-19 | NUR ---
NURSE NOTES: Repositioned Oral care Vitals remains stable temp of 99.7F (ax) cooling measure in effect Will continue to monitor.
--- NOTE | 2019-04-19 02:00 | NUR ---
NURSE NOTES: Repositioned Oral care given Patient sleeping at this time.NAD, afebrile
[2019-04-19] MEDS: Albuterol/Ipratropium 3ml neb HHN SCH ×6 (02:31→23:42)
[2019-04-19] MEDS: Acetylcysteine 20% Soln 4ml HHN SCH ×6 (02:31→23:42)
[2019-04-19] MEDS: LORazepam Inj 2mg/ml 1ml IV PRN (02:34)
--- NOTE | 2019-04-19 04:00 | NUR ---
NURSE NOTES: Sponge bath given Blood drawn and sent to lab. Vitals are stable NAD repositioned
--- NOTE | 2019-04-19 06:14 | NUR ---
NURSE NOTES: Repositioned Oral care given Patient sleeping at this time. NAD, afebrile
--- NOTE | 2019-04-19 07:00 | NUR ---
RESPIRATORY NOTE: Received Patient on ACVC VT 500, RR 10, Fio2 40%, PEEP +5. Patient intubated with 7.5 ETT with a 24cm lip line, secured with anchorfast. Patient alert and awake, responding to commands. Alarms are on and audible. Vent plugged into red outlet. Ambu bag at bedside. Will continue to monitor throughout the day.
--- NOTE | 2019-04-19 07:32 | NUR ---
HAND-OFF: Report given to Mickie RIOS.
--- NOTE | 2019-04-19 08:00 | NUR ---
NURSE NOTES: Received change of shit report from Rupert RIOS. Pt is asleep, awakens to touch, drowsy, however following basic commands. Pt attempts to reach for ET tube. Bilateral soft wrist restraints are in place to prevent self-extubation, with skin at restraint site within normal limits. Pt is orally intubated, ETT 7.5 at 24cm left lipline with vent settings AC10, VT500, Peep 5.0, FIO2 40% at 100% O2Sat, with mild rhonchi and diminished lung sounds on auscultation. ST on quality assurance monitor chassis, HR 103. Temp 98.3F axillary. Peripheral IV access is present on left wrist #22G and left FA #20G, with IV fluid D5W infusing at 50ml/hour. Left nare NGT is noted, with feeding Vital AF 1.2 at goal rate of 55ml/hour. Abdomen is round, soft, nontender to touch with active bowel sounds in all quadrants. Morales catheter is present, draining clear/yellow urine. Skin has sacral, lower back pressure wounds covered with optifoam dressings, dry/intact. Pt is on P200 pressure releasing mattress with bilateral lower extremities elevated off/heels on pillows. Will continue to monitor pt and follow plan of care per MD orders and protocol.
[2019-04-19] MEDS: Cefepime HCl 1 GM in D5W 55 ML IVPB SCH (08:34)
[2019-04-19] MEDS: Memantine 5 MG TAB ORAL SCH ×2 (08:34→17:52)
[2019-04-19] MEDS: Enoxaparin 30mg Inj SUBQ SCH (08:37)
--- NOTE | 2019-04-19 09:00 | NUR ---
RESPIRATORY NOTE: Weaning pt on cpap w p.support of 8cmh20 w peep of 5cmH20. Wilbert Corado at bedside along with myself. Pt did not tolerate too well; RSBI >100, rr >30, HR> 120, vt < 300 Pt using accessory muscles. Weaning terminated after 15min due to pt distress. Pt placed back on a/ vol cont. mode.
--- NOTE | 2019-04-19 09:10 | Urology Progress Note ---
Assessment/Plan Status: unchanged Assessment/Plan: 1. 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 2. Urinary retention. 3. Acute kidney injury, improved. 4. Hydronephrosis, likely chronic. 5. Proteinuria. 6. UTI and colonization. 7. Hematuria. monitor clinically maintain guerra, last replaced 04/10 hand irrigated and do PRN position is satisfactory monitor renal fxn, labile likely obst of bilateral distal ureters secondary to advanced prostate ca will need to see how aggressive pt and family want to be renal fxn improved with the new guerra consider ureteral stents or nephrostomies? flomax added abx as ordered voiding trial at some point? f/u on blood cx Subjective Allergies: Coded Allergies: No Known Allergies (Unverified , 04/03/19) Subjective all noted, still in ICU, remains intubated Objective Last 24 Hour Vital Signs Date Time Temp Pulse Resp B/P (MAP) Pulse Ox O2 Delivery O2 Flow Rate FiO2 04/19/19 09:03 115 33 40 04/19/19 08:45 100 04/19/19 07:12 110 18 100 Mechanical Ventilator 50.0 40 105 10 40 04/19/19 07:00 105 18 102/70 (81) 100 04/19/19 06:00 98.4 104 14 89/57 (68) 100 04/19/19 05:06 103 21 40 04/19/19 05:00 105 15 102/65 (77) 100 04/19/19 04:30 103 15 100/65 (77) 100 04/19/19 04:00 40 04/19/19 04:00 Mechanical Ventilator 04/19/19 04:00 99.2 103 14 92/64 (73) 100 04/19/19 04:00 105 04/19/19 03:30 103 16 89/62 (71) 100 04/19/19 03:00 105 16 89/59 (69) 100 04/19/19 02:31 100 17 100 Mechanical Ventilator 40 100 17 40 04/19/19 02:30 105 27 106/73 (84) 100 04/19/19 02:00 102 14 104/67 (79) 100 04/19/19 01:32 110 19 124/76 (92) 100 04/19/19 01:00 109 16 111/73 (86) 100 04/19/19 01:00 108 20 40 04/19/19 00:00 110 04/19/19 00:00 Mechanical Ventilator 04/19/19 00:00 99.7 112 16 115/68 (84) 100 04/19/19 00:00 40 04/18/19 23:07 110 10 100 Mechanical Ventilator 40 110 10 40 04/18/19 23:00 102 13 100/67 (78) 100 04/18/19 22:00 103 13 104/66 (79) 100 04/18/19 21:30 105 14 98/62 (74) 100 04/18/19 21:08 114 17 40 04/18/19 21:00 107 14 134/72 (92) 100 04/18/19 20:30 106 14 95/66 (76) 100 04/18/19 20:00 Mechanical Ventilator 04/18/19 20:00 40 04/18/19 20:00 115 04/18/19 20:00 99.3 115 15 98/68 (78) 100 04/18/19 19:00 126 15 109/74 (86) 100 04/18/19 18:36 132 19 40 04/18/19 18:30 128 25 150/80 (103) 100 04/18/19 18:00 117 25 149/83 (105) 100 04/18/19 17:30 106 16 100/71 (81) 100 04/18/19 17:09 103 13 40 04/18/19 17:00 106 17 100/68 (79) 100 04/18/19 16:30 104 14 105/67 (80) 100 04/18/19 16:00 40 04/18/19 16:00 98.9 100 14 99/64 (76) 100 04/18/19 16:00 102 04/18/19 16:00 Mechanical Ventilator 04/18/19 15:12 102 12 100 Mechanical Ventilator 40 100 10 40 04/18/19 15:00 105 17 97/67 (77) 100 04/18/19 14:00 108 20 103/62 (76) 100 04/18/19 13:00 107 17 104/65 (78) 100 04/18/19 12:31 107 13 100 Mechanical Ventilator 50.0 40 04/18/19 12:30 107 12 40 04/18/19 12:00 40 04/18/19 12:00 Mechanical Ventilator 04/18/19 12:00 105 04/18/19 12:00 98.6 109 16 99/60 (73) 100 04/18/19 11:04 121 14 40 04/18/19 11:00 112 17 90/59 (69) 100 04/18/19 10:00 110 27 95/60 (72) 100 Intake and Output 04/18/19 04/19/19 19:00 07:00 Intake Total 1060 ml 1140 ml Output Total 385 ml 365 ml Balance 675 ml 775 ml Free Water 90 ml 80 ml IV Total 310 ml 400 ml Tube Feeding 660 ml 660 ml Output Urine Total 385 ml 365 ml # Bowel Movements 8 Microbiology Date/Time Source Procedure Growth Status 04/14/19 12:45 Blood Blood Culture - Preliminary NO GROWTH AFTER 4 DAYS Resulted 04/15/19 21:40 Sputum Gram Stain - Final Complete 04/15/19 21:40 Sputum Sputum Culture - Final NORMAL UPPER RESPIRATORY DAVID PRESENT Complete 04/18/19 17:00 Stool Clostridium difficile Toxin Assay - Final Complete 04/14/19 11:25 Urine,Random Urine Culture - Final NO GROWTH AFTER 48 HOURS Complete Current Medications Medications (Trade) Dose Ordered Sig/[place] Nena Route PRN Reason Start Time Stop Time Status Last Admin Dose Admin Acetylcysteine (Mucomyst) 200 mg Q4HRT [facility] 04/18/19 11:00 05/18/19 10:59 04/19/19 07:10 Albuterol/ Ipratropium (Albuterol/ Ipratropium) 3 ml Q4HRT N 04/18/19 11:00 04/23/19 10:59 04/19/19 07:10 Cefepime HCl 1 gm/ Dextrose 55 ml @ 110 mls/hr DAILY IVPB 04/16/19 09:00 04/21/19 08:59 04/19/19 08:34 Chlorhexidine Gluconate (Martha-Hex 2%) 1 applic DAILY@2000 TOPIC 04/18/19 20:00 05/18/19 19:59 04/18/19 19:56 Dextrose 1,000 ml @ 50 mls/hr Q20H IV 04/18/19 13:00 05/18/19 12:59 04/19/19 08:40 Enoxaparin Sodium (Lovenox) 30 mg DAILY SUBQ 04/14/19 09:00 3/2/20 08:59 04/19/19 08:37 Heparin Sodium/ Sodium Chloride (Heparin 1000 units/500ml Premix) 1,000 unit ONCE PRN IV PICC PLACEMENT 04/18/19 11:00 04/20/19 23:59 Hydralazine HCl (Apresoline) 10 mg Q4H PRN IV SBP > 170mmHg 04/13/19 15:00 05/08/19 14:59 Lansoprazole (Prevacid) 30 mg DAILY ORAL 04/14/19 09:00 05/13/19 08:59 04/19/19 08:34 Lidocaine HCl (Xylocaine 1% 30ml) 30 ml ONCE PRN INJ PICC PLACEMENT 04/18/19 11:00 04/20/19 23:59 Lorazepam (Ativan 2mg/ml 1ml) 1 mg Q6H PRN IV For Anxiety 04/17/19 18:15 04/24/19 18:14 04/19/19 02:34 Memantine (Namenda) 5 mg BID ORAL 04/13/19 18:00 05/04/19 17:59 04/19/19 08:34 Morphine Sulfate (Morphine Sulfate) 1 mg Q4H PRN IVP PAIN 4-10 04/13/19 18:00 04/20/19 17:59 04/17/19 14:18 Norepinephrine Bitartrate 4 mg/ Dextrose 250 ml @ 0 mls/hr Q24H IV 04/13/19 17:00 05/13/19 16:59 04/14/19 22:57 Tamsulosin HCl (Flomax) 0.4 mg BEDTIME ORAL 04/13/19 21:00 05/13/19 20:59 04/18/19 19:56 Laboratory Tests 04/18/19 10:02: Arterial Blood pH 7.397, Arterial Blood Partial Pressure CO2 49.6H, Arterial Blood Partial Pressure O2 82.6, Arterial Blood HCO3 29.8H, Arterial Blood Oxygen Saturation 95.7, Arterial Blood Base Excess 4.4H, Antonio Test Positive Height (Feet): 5 Height (Inches): 7.00 Weight (Pounds): 167 Objective exam stable guerra indwelling, allegra urine CT A/P (04/10) noted Raz Root MD Apr 19, 2019 09:10
[2019-04-19 09:58] LABS: BASOPHILS % (AUTO) 0.8 % (0.0-2.0); EOSINOPHILS % (AUTO) 3.6 % (0.0-3.0); HEMATOCRIT 25.5 % (42.0-52.0); HEMOGLOBIN 8.6 G/DL (14.2-18.0); LYMPHOCYTES % (AUTO) 14.7 % (20.0-45.0); MEAN CORPUSCULAR VOLUME 85 FL (80-99); MONOCYTES % (AUTO) 7.8 % (1.0-10.0); NEUTROPHILS % (AUTO) 73.1 % (45.0-75.0); PLATELET COUNT 192 K/UL (150-450); RED BLOOD COUNT 2.99 M/UL (4.70-6.10); RED CELL DISTRIBUTION WIDTH 14.7 % (11.6-14.8); WHITE BLOOD COUNT 5.9 K/UL (4.8-10.8)
--- NOTE | 2019-04-19 10:00 | NUR ---
NURSE NOTES: AM meds were administered. Oral care was done. Pt was repositioned in bed. VS remain stable. RT at bedside, weaning was attempted, however pt unable to tolerate at this time, as he was tachypneic and tachycardic with high RSBI.
[2019-04-19 10:06] LABS: ANION GAP 7 mmol/L (5-15); BLOOD UREA NITROGEN 19 mg/dL (7-18); CALCIUM 9.2 MG/DL (8.5-10.1); CARBON DIOXIDE 28 MMOL/L (21-32); CHLORIDE 111 MMOL/L (98-107); CREATININE 1.4 MG/DL (0.55-1.30); POTASSIUM 3.2 MMOL/L (3.5-5.1); SODIUM 146 MMOL/L (136-145)
[2019-04-19 10:10] LABS: PHOSPHORUS 2.1 MG/DL (2.5-4.9)
--- NOTE | 2019-04-19 10:19 | Cardiac Electrophysiology PN ---
Assessment/Plan Assessment/Plan 1. Status post 2 non infarctional separate juan antonio arrest with asystole. Both episodes happened in the setting of respiratory failure and off the Vent No evidence of ventricular tachycardia or ventricular fibrillation. Off any GARCÍA or AVN olivia EF 65%. All 3 troponins were less than 0.1 2. Recurrent Respiratory failure, extubated 04/08/19 and reintubated 04/13/19 Failed Weaning again. Likely will need Tracheostomy 3. History of stage III prostate cancer, followed by Dr. Monroy and Dr Root. Morales was changed. Follows up at [facility] 4. Shock. Off Levophed on iv Abx. 5. Hypercalcemia due to prostate cancer. 6. Hypernatremia. 7. Anemia, s/p PRBC 04/08/19. Hb 7 again. S/P1 unit PRBC yesterday 8. Low K. Replace MIKE RN Subjective Subjective Intubated in ICU on the Vent off pressors. No juan antonio while on the Vent. Failed weaning again Objective Last 24 Hour Vital Signs Date Time Temp Pulse Resp B/P (MAP) Pulse Ox O2 Delivery O2 Flow Rate FiO2 04/19/19 09:03 115 33 40 04/19/19 08:45 100 04/19/19 07:12 110 18 100 Mechanical Ventilator 50.0 40 105 10 40 04/19/19 07:00 105 18 102/70 (81) 100 04/19/19 06:00 98.4 104 14 89/57 (68) 100 04/19/19 05:06 103 21 40 04/19/19 05:00 105 15 102/65 (77) 100 04/19/19 04:30 103 15 100/65 (77) 100 04/19/19 04:00 40 04/19/19 04:00 Mechanical Ventilator 04/19/19 04:00 99.2 103 14 92/64 (73) 100 04/19/19 04:00 105 04/19/19 03:30 103 16 89/62 (71) 100 04/19/19 03:00 105 16 89/59 (69) 100 04/19/19 02:31 100 17 100 Mechanical Ventilator 40 100 17 40 04/19/19 02:30 105 27 106/73 (84) 100 04/19/19 02:00 102 14 104/67 (79) 100 04/19/19 01:32 110 19 124/76 (92) 100 04/19/19 01:00 109 16 111/73 (86) 100 04/19/19 01:00 108 20 40 04/19/19 00:00 110 04/19/19 00:00 Mechanical Ventilator 04/19/19 00:00 99.7 112 16 115/68 (84) 100 04/19/19 00:00 40 04/18/19 23:07 110 10 100 Mechanical Ventilator 40 110 10 40 04/18/19 23:00 102 13 100/67 (78) 100 04/18/19 22:00 103 13 104/66 (79) 100 04/18/19 21:30 105 14 98/62 (74) 100 04/18/19 21:08 114 17 40 04/18/19 21:00 107 14 134/72 (92) 100 04/18/19 20:30 106 14 95/66 (76) 100 04/18/19 20:00 Mechanical Ventilator 04/18/19 20:00 40 04/18/19 20:00 115 04/18/19 20:00 99.3 115 15 98/68 (78) 100 04/18/19 19:00 126 15 109/74 (86) 100 04/18/19 18:36 132 19 40 04/18/19 18:30 128 25 150/80 (103) 100 04/18/19 18:00 117 25 149/83 (105) 100 04/18/19 17:30 106 16 100/71 (81) 100 04/18/19 17:09 103 13 40 04/18/19 17:00 106 17 100/68 (79) 100 04/18/19 16:30 104 14 105/67 (80) 100 04/18/19 16:00 40 04/18/19 16:00 98.9 100 14 99/64 (76) 100 04/18/19 16:00 102 04/18/19 16:00 Mechanical Ventilator 04/18/19 15:12 102 12 100 Mechanical Ventilator 40 100 10 40 04/18/19 15:00 105 17 97/67 (77) 100 04/18/19 14:00 108 20 103/62 (76) 100 04/18/19 13:00 107 17 104/65 (78) 100 04/18/19 12:31 107 13 100 Mechanical Ventilator 50.0 40 2/15/20 12:30 107 12 40 04/18/19 12:00 40 04/18/19 12:00 Mechanical Ventilator 04/18/19 12:00 105 04/18/19 12:00 98.6 109 16 99/60 (73) 100 04/18/19 11:04 121 14 40 04/18/19 11:00 112 17 90/59 (69) 100 Intake and Output 04/18/19 04/19/19 19:00 07:00 Intake Total 1060 ml 1140 ml Output Total 385 ml 365 ml Balance 675 ml 775 ml Free Water 90 ml 80 ml IV Total 310 ml 400 ml Tube Feeding 660 ml 660 ml Output Urine Total 385 ml 365 ml # Bowel Movements 8 Laboratory Tests Test 04/19/19 09:10 White Blood Count 5.9 K/UL (4.8-10.8) Red Blood Count 2.99 M/UL (4.70-6.10) L Hemoglobin 8.6 G/DL (14.2-18.0) L Hematocrit 25.5 % (42.0-52.0) L Mean Corpuscular Volume 85 FL (80-99) Mean Corpuscular Hemoglobin 28.7 PG (27.0-31.0) Mean Corpuscular Hemoglobin Concent 33.7 G/DL (32.0-36.0) Red Cell Distribution Width 14.7 % (11.6-14.8) Platelet Count 192 K/UL (150-450) Mean Platelet Volume 4.5 FL (6.5-10.1) L Neutrophils (%) (Auto) 73.1 % (45.0-75.0) Lymphocytes (%) (Auto) 14.7 % (20.0-45.0) L Monocytes (%) (Auto) 7.8 % (1.0-10.0) Eosinophils (%) (Auto) 3.6 % (0.0-3.0) H Basophils (%) (Auto) 0.8 % (0.0-2.0) Sodium Level 146 MMOL/L (136-145) H Potassium Level 3.2 MMOL/L (3.5-5.1) L Chloride Level 111 MMOL/L (98-107) H Carbon Dioxide Level 28 MMOL/L (21-32) Anion Gap 7 mmol/L (5-15) Blood Urea Nitrogen 19 mg/dL (7-18) H Creatinine 1.4 MG/DL (0.55-1.30) H Estimat Glomerular Filtration Rate > 60 mL/min (>60) Glucose Level 113 MG/DL (74-106) H Calcium Level 9.2 MG/DL (8.5-10.1) Phosphorus Level 2.1 MG/DL (2.5-4.9) L Magnesium Level 1.4 MG/DL (1.8-2.4) L Microbiology Date/Time Source Procedure Growth Status 04/18/19 17:00 Stool Clostridium difficile Toxin Assay - Final Complete Objective HEENT: No JVD. Orally intubated LUNGS: Coarse rhonchi. CARDIOVASCULAR: Regular S1 and S2 ABDOMEN: Soft and nondistended. EXTREMITIES: No pitting edema. Nain Cortez MD Apr 19, 2019 10:19
[2019-04-19] MEDS ORDERED: NS 275ml ONE (10:27)
--- NOTE | 2019-04-19 11:21 | Hematology/Onc Progress Note ---
Assessment/Plan Assessment/Plan # Prostate cancer stage IV with psa >700, cr is worse, hydronephrosis noted, seen by renal, Dr. White. --> i did received records from [facility]. has regional lymphadenopathy, s/p transrectal biopsy with Gleasons 5+5 (2010) in all cores, apparently has had a 3 year course of androgen deprivation from 2011- 2014.also status post RADIATION to the prostate, then lost to followup. Following surviellance psa 0.45-->65, in 10/2016, and up to 127 in 12/2016, Ct scan showed recurrence of disease with lad but no bony mets, started on lupron 01/2017, psa fell yo 73-->46, has been sarted on zytiga + prednisone, and now psa progression on zytiga, he started xtandi in 01/2019 Psa 87. He did not go through urethral stenting, he has deferred treatment with chemo. --> He is a very poor historian, I have talked to the sister --> imaging has been noted --> as per urology recs, reviewed --> have called , no answer, trans to [facility]? --> poor prognosis given above history of treatment, defer transfer to [facility] --> psa 737-->757 --> CT ABD 04/10: Evidence of advanced metastatic neoplasm likely secondary to prostate carcinoma. Extensive retroperitoneal and pelvic lymphadenopathy complicated by presence of bilateral hydroureteronephrosis. Extensive metastatic disease involving the bones also noted. Status post seed implant radiation therapy to the prostate gland. # Hypercalcemia -- now acutely worse --> trend Ca++ 8.1-->13-->12-->10.3-->10.7-->13.2 -->11-->10.5 --> ivf has been started --> as per nephrology --> calcitonin was given # Anemia due to underlying malignancy --> hgb trend as needed 9.2-->7-->10.9-->11-->9.7-->8.1-->8.6 --> no hemolysis is noted --> no bleeding --> blood tx: 04/18, # Episode of generalized weakness --> on ivf --> pt as needed # Hypokalemia --> replete prn # Dehydration --> on ivf # Atrophic changes without evident intracranial hemorrhage. --> as per neuro, remains confused # Respiratory failure s/p vent --> s/p vent intubated on 04/06 --> 04/08 was extubated --> reintubated # Hypernatremia as well as low BUN. --> on ivf # Poor prognosis # Dvt ppx lovenox sq Appreciate consultation and Nicholas Rn Subjective Allergies: Coded Allergies: No Known Allergies (Unverified , 04/03/19) Subjective 04/06: no events, apparently intubated today and transferred to the icu, will dw family 04/07: remains in the icu, critically ill, Ca++ 12, on vent, minimally responsive , on dopa, dw pcp and pulm 04/08: no major changes, no night sweats, labs have been reviewed, dw daughter, he is more alert 04/10: awake, no acute events ct abd reviewed, stool ob negative 04/12: labs reviewed, nc, tachy, ceftriaxone, no sob 04/13: lethargic, nc 3l, no acute distress, labs reviewed 04/14: Ca++ remains elev 13.2, De Amy aware, on calcitonin, on lovenox 04/15: no major changes, remains intubated, seen by cards, renal, pulm, dw Kellie, kcl ordered 04/16: tolerating meds well, no bleeding, on vent, is on simv mode, nicholas Pacheco Rn 04/17: icu, vent, h/h stable, no acute events, on cefepime 04/19: remains in icu and intubated, s/p blood, hgb 8.6, c diff negative Objective Objective Current Medications Medications (Trade) Dose Ordered Sig/La Nena Route PRN Reason Start Time Stop Time Status Last Admin Dose Admin Acetylcysteine (Mucomyst) 200 mg Q4HRT [facility] 04/18/19 11:00 05/18/19 10:59 04/19/19 07:10 Albuterol/ Ipratropium (Albuterol/ Ipratropium) 3 ml Q4HRT [facility] 04/18/19 11:00 04/23/19 10:59 04/19/19 07:10 Cefepime HCl 1 gm/ Dextrose 55 ml @ 110 mls/hr DAILY IVPB 04/16/19 09:00 04/21/19 08:59 04/19/19 08:34 Chlorhexidine Gluconate (Martha-Hex 2%) 1 applic DAILY@2000 TOPIC 04/18/19 20:00 05/18/19 19:59 04/18/19 19:56 Dextrose 1,000 ml @ 50 mls/hr Q20H IV 04/18/19 13:00 05/18/19 12:59 04/19/19 08:40 Enoxaparin Sodium (Lovenox) 30 mg DAILY SUBQ 04/14/19 09:00 05/04/19 08:59 04/19/19 08:37 Heparin Sodium/ Sodium Chloride (Heparin 1000 units/500ml Premix) 1,000 unit ONCE PRN IV PICC PLACEMENT 04/18/19 11:00 04/20/19 23:59 Hydralazine HCl (Apresoline) 10 mg Q4H PRN IV SBP > 170mmHg 04/13/19 15:00 05/08/19 14:59 Lansoprazole (Prevacid) 30 mg DAILY ORAL 04/14/19 09:00 05/13/19 08:59 04/19/19 08:34 Lidocaine HCl (Xylocaine 1% 30ml) 30 ml ONCE PRN INJ PICC PLACEMENT 04/18/19 11:00 04/20/19 23:59 Lorazepam (Ativan 2mg/ml 1ml) 1 mg Q6H PRN IV For Anxiety 04/17/19 18:15 04/24/19 18:14 04/19/19 02:34 Memantine (Namenda) 5 mg BID ORAL 04/13/19 18:00 05/04/19 17:59 04/19/19 08:34 Morphine Sulfate (Morphine Sulfate) 1 mg Q4H PRN IVP PAIN 4-10 04/13/19 18:00 04/20/19 17:59 04/17/19 14:18 Norepinephrine Bitartrate 4 mg/ Dextrose 250 ml @ 0 mls/hr Q24H IV 04/13/19 17:00 05/13/19 16:59 04/14/19 22:57 Tamsulosin HCl (Flomax) 0.4 mg BEDTIME ORAL 04/13/19 21:00 05/13/19 20:59 04/18/19 19:56 Last 24 Hour Vital Signs Date Time Temp Pulse Resp B/P (MAP) Pulse Ox O2 Delivery O2 Flow Rate FiO2 04/19/19 09:03 115 33 40 04/19/19 08:45 100 04/19/19 07:12 110 18 100 Mechanical Ventilator 50.0 40 105 10 40 04/19/19 07:00 105 18 102/70 (81) 100 04/19/19 06:00 98.4 104 14 89/57 (68) 100 04/19/19 05:06 103 21 40 04/19/19 05:00 105 15 102/65 (77) 100 04/19/19 04:30 103 15 100/65 (77) 100 04/19/19 04:00 40 04/19/19 04:00 Mechanical Ventilator 04/19/19 04:00 99.2 103 14 92/64 (73) 100 04/19/19 04:00 105 04/19/19 03:30 103 16 89/62 (71) 100 04/19/19 03:00 105 16 89/59 (69) 100 04/19/19 02:31 100 17 100 Mechanical Ventilator 40 100 17 40 04/19/19 02:30 105 27 106/73 (84) 100 04/19/19 02:00 102 14 104/67 (79) 100 04/19/19 01:32 110 19 124/76 (92) 100 04/19/19 01:00 109 16 111/73 (86) 100 04/19/19 01:00 108 20 40 04/19/19 00:00 110 04/19/19 00:00 Mechanical Ventilator 04/19/19 00:00 99.7 112 16 115/68 (84) 100 04/19/19 00:00 40 04/18/19 23:07 110 10 100 Mechanical Ventilator 40 110 10 40 04/18/19 23:00 102 13 100/67 (78) 100 04/18/19 22:00 103 13 104/66 (79) 100 04/18/19 21:30 105 14 98/62 (74) 100 04/18/19 21:08 114 17 40 04/18/19 21:00 107 14 134/72 (92) 100 04/18/19 20:30 106 14 95/66 (76) 100 04/18/19 20:00 Mechanical Ventilator 04/18/19 20:00 40 04/18/19 20:00 115 04/18/19 20:00 99.3 115 15 98/68 (78) 100 04/18/19 19:00 126 15 109/74 (86) 100 04/18/19 18:36 132 19 40 04/18/19 18:30 128 25 150/80 (103) 100 04/18/19 18:00 117 25 149/83 (105) 100 04/18/19 17:30 106 16 100/71 (81) 100 04/18/19 17:09 103 13 40 04/18/19 17:00 106 17 100/68 (79) 100 04/18/19 16:30 104 14 105/67 (80) 100 04/18/19 16:00 40 04/18/19 16:00 98.9 100 14 99/64 (76) 100 04/18/19 16:00 102 04/18/19 16:00 Mechanical Ventilator 04/18/19 15:12 102 12 100 Mechanical Ventilator 40 100 10 40 04/18/19 15:00 105 17 97/67 (77) 100 04/18/19 14:00 108 20 103/62 (76) 100 04/18/19 13:00 107 17 104/65 (78) 100 04/18/19 12:31 107 13 100 Mechanical Ventilator 50.0 40 04/18/19 12:30 107 12 40 04/18/19 12:00 40 04/18/19 12:00 Mechanical Ventilator 04/18/19 12:00 105 04/18/19 12:00 98.6 109 16 99/60 (73) 100 04/18/19 11:04 121 14 40 04/18/19 11:00 112 17 90/59 (69) 100 04/18/19 10:00 110 27 95/60 (72) 100 04/18/19 09:00 108 18 95/60 (72) 100 04/18/19 08:59 87/60 04/18/19 08:41 108 19 40 04/18/19 08:00 40 04/18/19 08:00 Mechanical Ventilator 04/18/19 08:00 119 04/18/19 08:00 98.3 107 16 87/60 (69) 100 04/18/19 07:00 108 13 80/57 (65) 100 04/18/19 06:44 109 13 40 04/18/19 06:00 110 23 126/73 (90) 100 04/18/19 05:00 122 15 112/70 (84) 100 04/18/19 04:00 40 04/18/19 04:00 Mechanical Ventilator 04/18/19 04:00 98.3 113 18 97/61 (73) 100 04/18/19 04:00 108 04/18/19 03:00 111 17 91/61 (71) 100 04/18/19 02:00 109 32 96/56 (69) 100 04/18/19 01:10 119 15 40 04/18/19 01:01 118 24 91/60 (70) 100 04/18/19 01:00 120 25 88/60 (69) 100 04/18/19 00:00 Mechanical Ventilator 04/18/19 00:00 98.5 123 23 131/106 (114) 93 04/17/19 23:25 113 10 40 04/17/19 23:04 115 04/17/19 23:00 115 21 98/66 (77) 100 04/17/19 22:00 112 20 88/59 (69) 100 04/17/19 21:06 114 15 40 04/17/19 21:00 114 14 91/62 (72) 100 04/17/19 20:20 91/58 04/17/19 20:01 111 04/17/19 20:00 98.5 109 24 91/58 (69) 100 04/17/19 20:00 40 04/17/19 20:00 Mechanical Ventilator 04/17/19 19:10 107 14 40 04/17/19 19:00 109 28 90/61 (71) 100 04/17/19 18:00 133 23 118/72 (87) 100 04/17/19 17:15 113 17 40 04/17/19 17:00 103/64 04/17/19 17:00 112 19 103/64 (77) 100 04/17/19 16:00 40 04/17/19 16:00 98.3 116 22 98/61 (73) 99 04/17/19 16:00 Mechanical Ventilator 04/17/19 15:33 115 04/17/19 15:00 113 18 106/70 (82) 100 04/17/19 14:49 116 18 40 04/17/19 14:00 98 18 100/60 (73) 100 04/17/19 13:07 98 14 40 04/17/19 13:00 98 17 96/60 (72) 100 04/17/19 12:00 99 04/17/19 12:00 Mechanical Ventilator 04/17/19 12:00 40 04/17/19 12:00 97.6 98 16 86/57 (67) 100 Intake and Output 04/18/19 04/19/19 19:00 07:00 Intake Total 1060 ml 1140 ml Output Total 385 ml 365 ml Balance 675 ml 775 ml Free Water 90 ml 80 ml IV Total 310 ml 400 ml Tube Feeding 660 ml 660 ml Output Urine Total 385 ml 365 ml # Bowel Movements 8 Labs Test 04/17/19 04:45 04/17/19 09:35 04/17/19 10:39 04/18/19 05:55 White Blood Count 6.3 K/UL (4.8-10.8) 5.6 K/UL (4.8-10.8) Red Blood Count 2.86 M/UL (4.70-6.10) 2.56 M/UL (4.70-6.10) Hemoglobin 8.1 G/DL (14.2-18.0) 7.4 G/DL (14.2-18.0) Hematocrit 24.2 % (42.0-52.0) 21.5 % (42.0-52.0) Mean Corpuscular Volume 85 FL (80-99) 84 FL (80-99) Mean Corpuscular Hemoglobin 28.3 PG (27.0-31.0) 28.8 PG (27.0-31.0) Mean Corpuscular Hemoglobin Concent 33.4 G/DL (32.0-36.0) 34.1 G/DL (32.0-36.0) Red Cell Distribution Width 15.7 % (11.6-14.8) 15.6 % (11.6-14.8) Platelet Count 160 K/UL (150-450) 166 K/UL (150-450) Mean Platelet Volume 5.2 FL (6.5-10.1) 4.9 FL (6.5-10.1) Neutrophils (%) (Auto) 82.7 % (45.0-75.0) % (45.0-75.0) Lymphocytes (%) (Auto) 8.1 % (20.0-45.0) % (20.0-45.0) Monocytes (%) (Auto) 5.3 % (1.0-10.0) % (1.0-10.0) Eosinophils (%) (Auto) 3.5 % (0.0-3.0) % (0.0-3.0) Basophils (%) (Auto) 0.4 % (0.0-2.0) % (0.0-2.0) Sodium Level 145 MMOL/L (136-145) 147 MMOL/L (136-145) Potassium Level 3.3 MMOL/L (3.5-5.1) 3.2 MMOL/L (3.5-5.1) Chloride Level 110 MMOL/L (98-107) 112 MMOL/L (98-107) Carbon Dioxide Level 29 MMOL/L (21-32) 31 MMOL/L (21-32) Anion Gap 6 mmol/L (5-15) 4 mmol/L (5-15) Blood Urea Nitrogen 18 mg/dL (7-18) 22 mg/dL (7-18) Creatinine 1.3 MG/DL (0.55-1.30) 1.4 MG/DL (0.55-1.30) Estimat Glomerular Filtration Rate > 60 mL/min (>60) > 60 mL/min (>60) Glucose Level 120 MG/DL (74-106) 109 MG/DL (74-106) Calcium Level 9.9 MG/DL (8.5-10.1) 9.5 MG/DL (8.5-10.1) Arterial Blood pH 7.166 (7.350-7.450) 7.317 (7.350-7.450) Arterial Blood Partial Pressure CO2 75.7 mmHg (35.0-45.0) 57.8 mmHg (35.0-45.0) Arterial Blood Partial Pressure O2 56.2 mmHg (75.0-100.0) 96.0 mmHg (75.0-100.0) Arterial Blood HCO3 26.7 mmol/L (22.0-26.0) 28.9 mmol/L (22.0-26.0) Arterial Blood Oxygen Saturation 85.1 % (95-100) 96.4 % (95-100) Arterial Blood Base Excess -2.7 (-2-2) 2.1 (-2-2) Antonio Test Positive Positive Differential Total Cells Counted 100 Neutrophils % (Manual) 79 % (45-75) Lymphocytes % (Manual) 10 % (20-45) Monocytes % (Manual) 7 % (1-10) Eosinophils % (Manual) 4 % (0-3) Basophils % (Manual) 0 % (0-2) Band Neutrophils 0 % (0-8) Platelet Estimate Adequate Platelet Morphology Normal Hypochromasia 3+ Anisocytosis 1+ Spherocytes 3+ Test 04/18/19 10:02 04/19/19 09:10 Arterial Blood pH 7.397 (7.350-7.450) Arterial Blood Partial Pressure CO2 49.6 mmHg (35.0-45.0) Arterial Blood Partial Pressure O2 82.6 mmHg (75.0-100.0) Arterial Blood HCO3 29.8 mmol/L (22.0-26.0) Arterial Blood Oxygen Saturation 95.7 % (95-100) Arterial Blood Base Excess 4.4 (-2-2) Antonio Test Positive White Blood Count 5.9 K/UL (4.8-10.8) Red Blood Count 2.99 M/UL (4.70-6.10) Hemoglobin 8.6 G/DL (14.2-18.0) Hematocrit 25.5 % (42.0-52.0) Mean Corpuscular Volume 85 FL (80-99) Mean Corpuscular Hemoglobin 28.7 PG (27.0-31.0) Mean Corpuscular Hemoglobin Concent 33.7 G/DL (32.0-36.0) Red Cell Distribution Width 14.7 % (11.6-14.8) Platelet Count 192 K/UL (150-450) Mean Platelet Volume 4.5 FL (6.5-10.1) Neutrophils (%) (Auto) 73.1 % (45.0-75.0) Lymphocytes (%) (Auto) 14.7 % (20.0-45.0) Monocytes (%) (Auto) 7.8 % (1.0-10.0) Eosinophils (%) (Auto) 3.6 % (0.0-3.0) Basophils (%) (Auto) 0.8 % (0.0-2.0) Sodium Level 146 MMOL/L (136-145) Potassium Level 3.2 MMOL/L (3.5-5.1) Chloride Level 111 MMOL/L (98-107) Carbon Dioxide Level 28 MMOL/L (21-32) Anion Gap 7 mmol/L (5-15) Blood Urea Nitrogen 19 mg/dL (7-18) Creatinine 1.4 MG/DL (0.55-1.30) Estimat Glomerular Filtration Rate > 60 mL/min (>60) Glucose Level 113 MG/DL (74-106) Calcium Level 9.2 MG/DL (8.5-10.1) Phosphorus Level 2.1 MG/DL (2.5-4.9) Magnesium Level 1.4 MG/DL (1.8-2.4) Micro Microbiology Date/Time Source Procedure Growth Status 04/18/19 17:00 Stool Clostridium difficile Toxin Assay - Final Complete Height (Feet): 5 Height (Inches): 7.00 Weight (Pounds): 167 Objective General: normal inspection, alert, Chronically Ill Respiratory: s/p vent++ Cardiovascular: regular rate, rhythm, no edema Gastrointestinal: normal inspection, normal bowel sounds Genitourinary: no CVA tenderness Mus: normal inspection, back normal, normal range of motion Neurologic: alert, motor strength/tone normal, oriented + confused Psychiatric: normal inspection, judgement/insight normal Skin: no rash Andreas Monroy MD Apr 19, 2019 11:21
--- NOTE | 2019-04-19 11:53 | Nephrology Progress Note ---
Assessment/Plan Status: unchanged Assessment/Plan: A/P 1. LETA. multifact ATN. - Cr stable at 1.4 2. Prostate cancer with tremendously elevated PSA - -Per Hematology/Oncology. 3. Hypokalemia. 30 KCL IV today 4. Sepsis and UTI per Infectious Disease mgmt 5. Hypernatremia- continue D5W 6- Hypercalcemia of malignancy- corrected 7- Resp FL- failing weaning. Poss extubation soon Subjective Date patient seen: Apr 19, 2019 Time patient seen: 11:51 ROS Limited/Unobtainable: Yes Allergies: Coded Allergies: No Known Allergies (Unverified , 04/03/19) Subjective Patient intubated but awake on vent Objective Last 24 Hour Vital Signs Date Time Temp Pulse Resp B/P (MAP) Pulse Ox O2 Delivery O2 Flow Rate FiO2 04/19/19 11:27 104 14 100 Mechanical Ventilator 50.0 40 102 10 40 04/19/19 09:03 115 33 40 04/19/19 08:45 100 04/19/19 07:12 110 18 100 Mechanical Ventilator 50.0 40 105 10 40 04/19/19 07:00 105 18 102/70 (81) 100 04/19/19 06:00 98.4 104 14 89/57 (68) 100 04/19/19 05:06 103 21 40 04/19/19 05:00 105 15 102/65 (77) 100 04/19/19 04:30 103 15 100/65 (77) 100 04/19/19 04:00 40 04/19/19 04:00 Mechanical Ventilator 04/19/19 04:00 99.2 103 14 92/64 (73) 100 04/19/19 04:00 105 04/19/19 03:30 103 16 89/62 (71) 100 04/19/19 03:00 105 16 89/59 (69) 100 04/19/19 02:31 100 17 100 Mechanical Ventilator 40 100 17 40 04/19/19 02:30 105 27 106/73 (84) 100 04/19/19 02:00 102 14 104/67 (79) 100 04/19/19 01:32 110 19 124/76 (92) 100 04/19/19 01:00 109 16 111/73 (86) 100 04/19/19 01:00 108 20 40 04/19/19 00:00 110 04/19/19 00:00 Mechanical Ventilator 04/19/19 00:00 99.7 112 16 115/68 (84) 100 04/19/19 00:00 40 04/18/19 23:07 110 10 100 Mechanical Ventilator 40 110 10 40 04/18/19 23:00 102 13 100/67 (78) 100 04/18/19 22:00 103 13 104/66 (79) 100 04/18/19 21:30 105 14 98/62 (74) 100 04/18/19 21:08 114 17 40 04/18/19 21:00 107 14 134/72 (92) 100 04/18/19 20:30 106 14 95/66 (76) 100 04/18/19 20:00 Mechanical Ventilator 04/18/19 20:00 40 04/18/19 20:00 115 04/18/19 20:00 99.3 115 15 98/68 (78) 100 04/18/19 19:00 126 15 109/74 (86) 100 04/18/19 18:36 132 19 40 04/18/19 18:30 128 25 150/80 (103) 100 04/18/19 18:00 117 25 149/83 (105) 100 04/18/19 17:30 106 16 100/71 (81) 100 04/18/19 17:09 103 13 40 04/18/19 17:00 106 17 100/68 (79) 100 04/18/19 16:30 104 14 105/67 (80) 100 04/18/19 16:00 40 04/18/19 16:00 98.9 100 14 99/64 (76) 100 04/18/19 16:00 102 04/18/19 16:00 Mechanical Ventilator 04/18/19 15:12 102 12 100 Mechanical Ventilator 40 100 10 40 04/18/19 15:00 105 17 97/67 (77) 100 04/18/19 14:00 108 20 103/62 (76) 100 04/18/19 13:00 107 17 104/65 (78) 100 04/18/19 12:31 107 13 100 Mechanical Ventilator 50.0 40 04/18/19 12:30 107 12 40 04/18/19 12:00 40 04/18/19 12:00 Mechanical Ventilator 04/18/19 12:00 105 04/18/19 12:00 98.6 109 16 99/60 (73) 100 Intake and Output 04/18/19 04/19/19 19:00 07:00 Intake Total 1060 ml 1140 ml Output Total 385 ml 365 ml Balance 675 ml 775 ml Free Water 90 ml 80 ml IV Total 310 ml 400 ml Tube Feeding 660 ml 660 ml Output Urine Total 385 ml 365 ml # Bowel Movements 8 Laboratory Tests 04/19/19 09:10: White Blood Count 5.9, Red Blood Count 2.99L, Hemoglobin 8.6L, Hematocrit 25.5L , Mean Corpuscular Volume 85, Mean Corpuscular Hemoglobin 28.7, Mean Corpuscular Hemoglobin Concent 33.7, Red Cell Distribution Width 14.7, Platelet Count 192, Mean Platelet Volume 4.5L, Neutrophils (%) (Auto) 73.1, Lymphocytes ( %) (Auto) 14.7L, Monocytes (%) (Auto) 7.8, Eosinophils (%) (Auto) 3.6H, Basophils (%) (Auto) 0.8, Sodium Level 146H, Potassium Level 3.2L, Chloride Level 111H, Carbon Dioxide Level 28, Anion Gap 7, Blood Urea Nitrogen 19H, Creatinine 1.4H, Estimat Glomerular Filtration Rate > 60, Glucose Level 113H, Calcium Level 9.2, Phosphorus Level 2.1L, Magnesium Level 1.4L Height (Feet): 5 Height (Inches): 7.00 Weight (Pounds): 167 General Appearance: no apparent distress EENT: normal ENT inspection Neck: supple Cardiovascular: normal rate, regular rhythm Respiratory/Chest: lungs clear, normal breath sounds Abdomen: non tender, soft Edema: no edema noted Arm (L), no edema noted Arm (R), no edema noted Leg (L), no edema noted Leg (R), no edema noted Pedal (L), no edema noted Pedal (R), no edema noted Generalized Carlos White MD Apr 19, 2019 11:53
--- NOTE | 2019-04-19 12:00 | NUR ---
NURSE NOTES: Pt was seen by Dr Mathews. spoke with next of kin, pt's son over the phone regarding pt's condition and PICC line placement. Telephone consent was received for PICC line placement and was verified with a 2nd RN, charge nurse. Order was also received for ABGs blooddraw for possible extubation. Pt was weaned on PS 8, Peep 5.0, FIO2 [address] Mathews at bedside, and tolerated for at least 30minutes.
--- NOTE | 2019-04-19 12:18 | Pulmonology Progress Note ---
Assessment/Plan Assessment/Plan IMPRESSION: 1. Status post asystolic cardiac arrest. Again on 04/13/19 2. Respiratory failure, re-intubated 3. Altered mental status. 4. Hypernatremia. Corrected. 5. Hypokalemia . Corrected. 6. History of COPD. 7. Prostate CA. DISCUSSION: 1. Discussed with cardiology and PMD 2. Discussed with daughter in law (James), son (Abdoul) and sister 3. Poor prognosis 4. continue weaning efforts 5. Dc diuretics 6. Transfused CXR looking better; will attempt wean daily Ganesh Mathews M.D. Subjective Interval Events: Looking and feeling better; weaning Constitutional: Reports: no symptoms HEENT: Repors: no symptoms Respiratory: Reports: no symptoms Cardiovascular: Reports: no symptoms Gastrointestinal/Abdominal: Reports: no symptoms Allergies: Coded Allergies: No Known Allergies (Unverified , 04/03/19) Objective Last 24 Hour Vital Signs Date Time Temp Pulse Resp B/P (MAP) Pulse Ox O2 Delivery O2 Flow Rate FiO2 04/19/19 11:27 104 14 100 Mechanical Ventilator 50.0 40 102 10 40 04/19/19 09:03 115 33 40 04/19/19 08:45 100 04/19/19 07:12 110 18 100 Mechanical Ventilator 50.0 40 105 10 40 04/19/19 07:00 105 18 102/70 (81) 100 04/19/19 06:00 98.4 104 14 89/57 (68) 100 04/19/19 05:06 103 21 40 04/19/19 05:00 105 15 102/65 (77) 100 04/19/19 04:30 103 15 100/65 (77) 100 04/19/19 04:00 40 04/19/19 04:00 Mechanical Ventilator 04/19/19 04:00 99.2 103 14 92/64 (73) 100 04/19/19 04:00 105 04/19/19 03:30 103 16 89/62 (71) 100 04/19/19 03:00 105 16 89/59 (69) 100 04/19/19 02:31 100 17 100 Mechanical Ventilator 40 100 17 40 04/19/19 02:30 105 27 106/73 (84) 100 04/19/19 02:00 102 14 104/67 (79) 100 04/19/19 01:32 110 19 124/76 (92) 100 04/19/19 01:00 109 16 111/73 (86) 100 04/19/19 01:00 108 20 40 04/19/19 00:00 110 04/19/19 00:00 Mechanical Ventilator 04/19/19 00:00 99.7 112 16 115/68 (84) 100 04/19/19 00:00 40 04/18/19 23:07 110 10 100 Mechanical Ventilator 40 110 10 40 04/18/19 23:00 102 13 100/67 (78) 100 04/18/19 22:00 103 13 104/66 (79) 100 04/18/19 21:30 105 14 98/62 (74) 100 04/18/19 21:08 114 17 40 04/18/19 21:00 107 14 134/72 (92) 100 04/18/19 20:30 106 14 95/66 (76) 100 04/18/19 20:00 Mechanical Ventilator 04/18/19 20:00 40 04/18/19 20:00 115 04/18/19 20:00 99.3 115 15 98/68 (78) 100 04/18/19 19:00 126 15 109/74 (86) 100 04/18/19 18:36 132 19 40 04/18/19 18:30 128 25 150/80 (103) 100 04/18/19 18:00 117 25 149/83 (105) 100 04/18/19 17:30 106 16 100/71 (81) 100 04/18/19 17:09 103 13 40 04/18/19 17:00 106 17 100/68 (79) 100 04/18/19 16:30 104 14 105/67 (80) 100 04/18/19 16:00 40 04/18/19 16:00 98.9 100 14 99/64 (76) 100 04/18/19 16:00 102 04/18/19 16:00 Mechanical Ventilator 04/18/19 15:12 102 12 100 Mechanical Ventilator 40 100 10 40 04/18/19 15:00 105 17 97/67 (77) 100 04/18/19 14:00 108 20 103/62 (76) 100 04/18/19 13:00 107 17 104/65 (78) 100 04/18/19 12:31 107 13 100 Mechanical Ventilator 50.0 40 04/18/19 12:30 107 12 40 Intake and Output 04/18/19 04/19/19 19:00 07:00 Intake Total 1060 ml 1140 ml Output Total 385 ml 365 ml Balance 675 ml 775 ml Free Water 90 ml 80 ml IV Total 310 ml 400 ml Tube Feeding 660 ml 660 ml Output Urine Total 385 ml 365 ml # Bowel Movements 8 General Appearance: no acute distress HEENT: normocephalic Respiratory/Chest: chest wall non-tender, lungs clear Cardiovascular: normal peripheral pulses, normal rate Abdomen: normal bowel sounds Microbiology Date/Time Source Procedure Growth Status 04/18/19 17:00 Stool Clostridium difficile Toxin Assay - Final Complete Laboratory Tests 04/19/19 09:10: White Blood Count 5.9, Red Blood Count 2.99L, Hemoglobin 8.6L, Hematocrit 25.5L , Mean Corpuscular Volume 85, Mean Corpuscular Hemoglobin 28.7, Mean Corpuscular Hemoglobin Concent 33.7, Red Cell Distribution Width 14.7, Platelet Count 192, Mean Platelet Volume 4.5L, Neutrophils (%) (Auto) 73.1, Lymphocytes ( %) (Auto) 14.7L, Monocytes (%) (Auto) 7.8, Eosinophils (%) (Auto) 3.6H, Basophils (%) (Auto) 0.8, Sodium Level 146H, Potassium Level 3.2L, Chloride Level 111H, Carbon Dioxide Level 28, Anion Gap 7, Blood Urea Nitrogen 19H, Creatinine 1.4H, Estimat Glomerular Filtration Rate > 60, Glucose Level 113H, Calcium Level 9.2, Phosphorus Level 2.1L, Magnesium Level 1.4L Current Medications Medications (Trade) Dose Ordered Sig/Lan Ena Route PRN Reason Start Time Stop Time Status Last Admin Dose Admin Acetylcysteine (Mucomyst) 200 mg Q4HRT [facility] 04/18/19 11:00 05/18/19 10:59 04/19/19 11:27 Albuterol/ Ipratropium (Albuterol/ Ipratropium) 3 ml Q4HRT [facility] 04/18/19 11:00 04/23/19 10:59 04/19/19 11:27 Cefepime HCl 1 gm/ Dextrose 55 ml @ 110 mls/hr DAILY IVPB 04/16/19 09:00 04/21/19 08:59 04/19/19 08:34 Chlorhexidine Gluconate (Martha-Hex 2%) 1 applic DAILY@2000 TOPIC 04/18/19 20:00 05/18/19 19:59 04/18/19 19:56 Dextrose 1,000 ml @ 50 mls/hr Q20H IV 04/18/19 13:00 05/18/19 12:59 04/19/19 08:40 Enoxaparin Sodium (Lovenox) 30 mg DAILY SUBQ 04/14/19 09:00 05/04/19 08:59 04/19/19 08:37 Heparin Sodium/ Sodium Chloride (Heparin 1000 units/500ml Premix) 1,000 unit ONCE PRN IV PICC PLACEMENT 04/18/19 11:00 04/20/19 23:59 Hydralazine HCl (Apresoline) 10 mg Q4H PRN IV SBP > 170mmHg 04/13/19 15:00 05/08/19 14:59 Lansoprazole (Prevacid) 30 mg DAILY ORAL 04/14/19 09:00 05/13/19 08:59 04/19/19 08:34 Lidocaine HCl (Xylocaine 1% 30ml) 30 ml ONCE PRN INJ PICC PLACEMENT 04/18/19 11:00 04/20/19 23:59 Lorazepam (Ativan 2mg/ml 1ml) 1 mg Q6H PRN IV For Anxiety 04/17/19 18:15 04/24/19 18:14 04/19/19 02:34 Memantine (Namenda) 5 mg BID ORAL 04/13/19 18:00 05/04/19 17:59 04/19/19 08:34 Morphine Sulfate (Morphine Sulfate) 1 mg Q4H PRN IVP PAIN 4-10 04/13/19 18:00 04/20/19 17:59 04/17/19 14:18 Norepinephrine Bitartrate 4 mg/ Dextrose 250 ml @ 0 mls/hr Q24H IV 04/13/19 17:00 05/13/19 16:59 04/14/19 22:57 Potassium Chloride 100 ml @ 100 mls/hr Q1H IVPB 04/19/19 12:30 04/19/19 15:29 Tamsulosin HCl (Flomax) 0.4 mg BEDTIME ORAL 04/13/19 21:00 05/13/19 20:59 04/18/19 19:56 Ganesh Mathews MD Apr 19, 2019 12:18
--- NOTE | 2019-04-19 12:45 | NUR ---
NURSE NOTES: ABG results were reported to Dr Mathews and per MD order, pt was extubated and currently placed on cool aerosol 40%. Pt is tolerating well so far with stable VS. Remains afebrile. Pt attempts to reach, pull out IV line and bilateral soft wrist restraints currently remain in place. Skin integrity at restraint site remains within normal limits. Pt was repositioned.
--- NOTE | 2019-04-19 12:45 | Surgery Progress Note ---
Surgery Progress Note Subjective Procedure Performed right femoral central venous catheter insertion Additional Comments tachycardic hyperventilating alert and somewhat responsive on vent Objective Last 24 Hour Vital Signs Date Time Temp Pulse Resp B/P (MAP) Pulse Ox O2 Delivery O2 Flow Rate FiO2 04/19/19 12:00 40 04/19/19 12:00 113 32 120/72 (88) 100 04/19/19 12:00 Mechanical Ventilator 04/19/19 12:00 110 04/19/19 11:27 104 14 100 Mechanical Ventilator 50.0 40 102 10 40 04/19/19 11:00 106 15 109/70 (83) 100 04/19/19 10:00 108 15 106/66 (79) 100 04/19/19 09:03 115 33 40 04/19/19 09:00 114 37 121/79 (93) 100 04/19/19 08:45 100 04/19/19 08:00 Mechanical Ventilator 04/19/19 08:00 102 04/19/19 08:00 98.4 105 14 96/62 (73) 100 04/19/19 08:00 40 04/19/19 07:12 110 18 100 Mechanical Ventilator 50.0 40 105 10 40 04/19/19 07:00 105 18 102/70 (81) 100 04/19/19 06:00 98.4 104 14 89/57 (68) 100 04/19/19 05:06 103 21 40 04/19/19 05:00 105 15 102/65 (77) 100 04/19/19 04:30 103 15 100/65 (77) 100 04/19/19 04:00 40 04/19/19 04:00 Mechanical Ventilator 04/19/19 04:00 99.2 103 14 92/64 (73) 100 04/19/19 04:00 105 04/19/19 03:30 103 16 89/62 (71) 100 04/19/19 03:00 105 16 89/59 (69) 100 04/19/19 02:31 100 17 100 Mechanical Ventilator 40 100 17 40 04/19/19 02:30 105 27 106/73 (84) 100 04/19/19 02:00 102 14 104/67 (79) 100 04/19/19 01:32 110 19 124/76 (92) 100 04/19/19 01:00 109 16 111/73 (86) 100 04/19/19 01:00 108 20 40 04/19/19 00:00 110 04/19/19 00:00 Mechanical Ventilator 04/19/19 00:00 99.7 112 16 115/68 (84) 100 04/19/19 00:00 40 04/18/19 23:07 110 10 100 Mechanical Ventilator 40 110 10 40 04/18/19 23:00 102 13 100/67 (78) 100 04/18/19 22:00 103 13 104/66 (79) 100 04/18/19 21:30 105 14 98/62 (74) 100 04/18/19 21:08 114 17 40 04/18/19 21:00 107 14 134/72 (92) 100 04/18/19 20:30 106 14 95/66 (76) 100 04/18/19 20:00 Mechanical Ventilator 04/18/19 20:00 40 04/18/19 20:00 115 04/18/19 20:00 99.3 115 15 98/68 (78) 100 04/18/19 19:00 126 15 109/74 (86) 100 04/18/19 18:36 132 19 40 04/18/19 18:30 128 25 150/80 (103) 100 04/18/19 18:00 117 25 149/83 (105) 100 04/18/19 17:30 106 16 100/71 (81) 100 04/18/19 17:09 103 13 40 04/18/19 17:00 106 17 100/68 (79) 100 04/18/19 16:30 104 14 105/67 (80) 100 04/18/19 16:00 40 04/18/19 16:00 98.9 100 14 99/64 (76) 100 04/18/19 16:00 102 04/18/19 16:00 Mechanical Ventilator 04/18/19 15:12 102 12 100 Mechanical Ventilator 40 100 10 40 04/18/19 15:00 105 17 97/67 (77) 100 04/18/19 14:00 108 20 103/62 (76) 100 04/18/19 13:00 107 17 104/65 (78) 100 I&O Intake and Output 04/18/19 04/19/19 19:00 07:00 Intake Total 1060 ml 1140 ml Output Total 385 ml 365 ml Balance 675 ml 775 ml Free Water 90 ml 80 ml IV Total 310 ml 400 ml Tube Feeding 660 ml 660 ml Output Urine Total 385 ml 365 ml # Bowel Movements 8 Dressing: other Wound: other Drains: other Cardiovascular: RSR Respiratory: decreased breath sounds Abdomen: soft, present bowel sounds, non-distended Extremities: no cyanosis Laboratory Tests Test 04/19/19 09:10 04/19/19 12:29 White Blood Count 5.9 K/UL (4.8-10.8) Red Blood Count 2.99 M/UL (4.70-6.10) L Hemoglobin 8.6 G/DL (14.2-18.0) L Hematocrit 25.5 % (42.0-52.0) L Mean Corpuscular Volume 85 FL (80-99) Mean Corpuscular Hemoglobin 28.7 PG (27.0-31.0) Mean Corpuscular Hemoglobin Concent 33.7 G/DL (32.0-36.0) Red Cell Distribution Width 14.7 % (11.6-14.8) Platelet Count 192 K/UL (150-450) Mean Platelet Volume 4.5 FL (6.5-10.1) L Neutrophils (%) (Auto) 73.1 % (45.0-75.0) Lymphocytes (%) (Auto) 14.7 % (20.0-45.0) L Monocytes (%) (Auto) 7.8 % (1.0-10.0) Eosinophils (%) (Auto) 3.6 % (0.0-3.0) H Basophils (%) (Auto) 0.8 % (0.0-2.0) Sodium Level 146 MMOL/L (136-145) H Potassium Level 3.2 MMOL/L (3.5-5.1) L Chloride Level 111 MMOL/L (98-107) H Carbon Dioxide Level 28 MMOL/L (21-32) Anion Gap 7 mmol/L (5-15) Blood Urea Nitrogen 19 mg/dL (7-18) H Creatinine 1.4 MG/DL (0.55-1.30) H Estimat Glomerular Filtration Rate > 60 mL/min (>60) Glucose Level 113 MG/DL (74-106) H Calcium Level 9.2 MG/DL (8.5-10.1) Phosphorus Level 2.1 MG/DL (2.5-4.9) L Magnesium Level 1.4 MG/DL (1.8-2.4) L Arterial Blood pH 7.370 (7.350-7.450) Arterial Blood Partial Pressure CO2 48.8 mmHg (35.0-45.0) H Arterial Blood Partial Pressure O2 83.0 mmHg (75.0-100.0) Arterial Blood HCO3 27.6 mmol/L (22.0-26.0) H Arterial Blood Oxygen Saturation 95.4 % (95-100) Arterial Blood Base Excess 1.9 (-2-2) Antonio Test Positive Plan Problems: (1) Cardiac arrest Assessment & Plan: Acute deterioration Cardiovascular lopez ACLS required for resuscitation Still full code Hypotensive intensive care unit requiring a new central venous catheter see note Antibiotics as per infectious caries Hold tube feeds Vent management cont current treatment improving wean vent possible extubate soon trend labs resume tube feeds recovering not ready for extubation will follow with recs thank you (2) Stage III adenocarcinoma of prostate Assessment & Plan: patient with state 3 prostate cancer pending treatment at [facility] unlikely related to acute cardiac arrest this am abd exam with mild distention pending KUB no acute surgical intervention planned onc input thank you will follow with recJay Florez Apr 19, 2019 12:45
--- NOTE | 2019-04-19 13:00 | NUR ---
NURSE NOTES: Pt was seen by Dr Pascual. Order was received to replace potassium with 30meq KCL IVBP, and to continue D5W at 50ml/hr to correct hypernatremia. No additional orders at this time.
--- NOTE | 2019-04-19 16:00 | NUR ---
NURSE NOTES: Pt remains on cool aerosol at 40% FIO2, with 100%O2Sat. Remains afebrile. ST on residential monitor. RR 30. Denies any discomfort at this time. Pt was cleaned and repositioned.
--- NOTE | 2019-04-19 17:15 | Progress Note ---
DATE: 04/19/2019 SUBJECTIVE: This is a 73-year-old male with generalized weakness. He is very confused, disorganized, intermittent bouts of psychomotor agitation and irritability, decline in cognition below his baseline. DIAGNOSIS: Major depressive disorder, mild, recurrent with psychotic features. PLAN: Continue to treat this patient with medications to stabilize his mood and reduce psychomotor agitation. A 20 minutes of insight-oriented psychotherapy to help this patient understand his medical and psychiatric illness, so he has better insight into it and he has better impulse control. 20 minutes of insight-oriented psychotherapy provided. Chart reviewed. Discussed with staff. Seen and assessed at bedside. Cherise Palma M.D. DR: FREDIS JOB#: [id number] CC:
--- NOTE | 2019-04-19 18:01 | NUR ---
NURSE NOTES: Order was received for Mag 1gm IVPB to replace Mag of 1.[address] Pascual. Order will be processed.
--- NOTE | 2019-04-19 19:30 | NUR ---
HAND-OFF: Report given to Jennifer RIOS. Endorsed plan of care.
--- NOTE | 2019-04-19 19:31 | NUR ---
NURSE NOTES: Received endorsement from BLANCA Corado. Patient drowsy. Noted with SOB, with labored breathing. Tachypneic at 30s. 99% saturation on the monitor. On cool aerosol 40%. NGT at right nare. Placement rechecked per auscultation. On Vital AF 55ml/hr, feeding held at this time for SOB. No residual. With left wrist g 22, left forearm g22, left hand g20. Receiving D5W 50ml/hr. Morales catheter in place. Bilateral soft wrists restraints in place for attempting to pull out tubings. Will monitor for the need for restraints. On P200 mattress. Bed locked and in low position. Bed alarm on. Head of bed kept elevated. Stat ABG done.
--- NOTE | 2019-04-19 20:00 | NUR ---
NURSE NOTES: Called Dr. Mathews on his emergency line, left a message regarding ABG results and patient's current condition. Awaiting for return call.
[2019-04-19] MEDS: Dyna-Hex 2% Top Sol 2oz TOPIC SCH (20:11)
--- NOTE | 2019-04-19 20:18 | NUR ---
NURSE NOTES: Called Dr. Mathews for 2nd time in his emergency exchange. Left a message. Awaiting for return call.
--- NOTE | 2019-04-19 20:30 | NUR ---
NURSE NOTES: Received a return call form Dr. Mathews with new order for BiPAP 20/8 100% and ABG after 1 hour. RT informed.
[2019-04-19] MEDS: Tamsulosin 0.4mg cap ORAL SCH (20:46)
--- NOTE | 2019-04-19 21:00 | NUR ---
NURSE NOTES: Patient's son and daughter in law called, updated them of patient's current status.
--- NOTE | 2019-04-19 21:45 | NUR ---
NURSE NOTES: Called Dr. Mathews to update him of the ABG 1 hour post BiPAP. With new orders to change BiPAP settings to 18/5 50% and ABG and chest Xray in the morning. Orders read back and verified by
--- NOTE | 2019-04-19 22:19 | General Progress Note ---
Assessment/Plan Problem List: (1) UTI (urinary tract infection) ICD Codes: N39.0 - Urinary tract infection, site not specified SNOMED: 58514682 (2) Weak ICD Codes: R53.1 - Weakness SNOMED: 57806182 (3) Anemia ICD Codes: D64.9 - Anemia, unspecified SNOMED: 691626154 (4) Dehydration ICD Codes: E86.0 - Dehydration SNOMED: 77134937, 48961082 (5) Episode of generalized weakness ICD Codes: R53.1 - Weakness SNOMED: 37936632 (6) Stage III adenocarcinoma of prostate ICD Codes: C61 - Malignant neoplasm of prostate SNOMED: 980603322, 98643909 Status: unchanged Assessment/Plan: uti sepsis abx per id afebirle check h/h lytes? resp insuff afebrile Subjective ROS Limited/Unobtainable: Yes Allergies: Coded Allergies: No Known Allergies (Unverified , 04/03/19) Objective Last 24 Hour Vital Signs Date Time Temp Pulse Resp B/P (MAP) Pulse Ox O2 Delivery O2 Flow Rate FiO2 04/19/19 22:00 101 24 98/62 (74) 100 04/19/19 21:00 112 34 95/58 (70) 96 04/19/19 20:30 100 04/19/19 20:22 113 32 98 100 04/19/19 20:00 98.0 116 26 132/77 (95) 100 04/19/19 20:00 Venturi Mask 04/19/19 20:00 10.0 40 04/19/19 19:00 108 30 159/88 (111) 100 04/19/19 18:56 99 Cool Aerosol 12.0 40 04/19/19 18:54 117 31 100 Simple Mask 12.0 40 113 28 99 04/19/19 18:00 114 34 126/74 (91) 100 04/19/19 17:00 117 34 128/76 (93) 99 04/19/19 16:00 10.0 40 04/19/19 16:00 Mechanical Ventilator 04/19/19 16:00 98.2 125 33 142/80 (100) 100 04/19/19 16:00 121 04/19/19 15:00 123 28 145/89 (107) 100 04/19/19 14:55 120 30 100 Simple Mask 12.0 40 115 30 100 04/19/19 14:00 119 31 134/79 (97) 100 04/19/19 13:00 98.3 114 29 120/69 (86) 100 04/19/19 12:45 Simple Mask 12.0 40 04/19/19 12:00 40 04/19/19 12:00 113 32 120/72 (88) 100 04/19/19 12:00 Mechanical Ventilator 04/19/19 12:00 110 04/19/19 11:27 104 14 100 Mechanical Ventilator 50.0 40 102 10 40 04/19/19 11:00 106 15 109/70 (83) 100 04/19/19 10:00 108 15 106/66 (79) 100 04/19/19 09:03 115 33 40 04/19/19 09:00 114 37 121/79 (93) 100 04/19/19 08:45 100 04/19/19 08:00 Mechanical Ventilator 04/19/19 08:00 102 04/19/19 08:00 98.4 105 14 96/62 (73) 100 04/19/19 08:00 40 04/19/19 07:12 110 18 100 Mechanical Ventilator 50.0 40 105 10 40 04/19/19 07:00 105 18 102/70 (81) 100 04/19/19 06:00 98.4 104 14 89/57 (68) 100 04/19/19 05:06 103 21 40 04/19/19 05:00 105 15 102/65 (77) 100 04/19/19 04:30 103 15 100/65 (77) 100 04/19/19 04:00 40 04/19/19 04:00 Mechanical Ventilator 04/19/19 04:00 99.2 103 14 92/64 (73) 100 04/19/19 04:00 105 04/19/19 03:30 103 16 89/62 (71) 100 04/19/19 03:00 105 16 89/59 (69) 100 04/19/19 02:31 100 17 100 Mechanical Ventilator 40 100 17 40 04/19/19 02:30 105 27 106/73 (84) 100 04/19/19 02:00 102 14 104/67 (79) 100 04/19/19 01:32 110 19 124/76 (92) 100 04/19/19 01:00 109 16 111/73 (86) 100 04/19/19 01:00 108 20 40 04/19/19 00:00 110 04/19/19 00:00 Mechanical Ventilator 04/19/19 00:00 99.7 112 16 115/68 (84) 100 04/19/19 00:00 40 04/18/19 23:07 110 10 100 Mechanical Ventilator 40 110 10 40 04/18/19 23:00 102 13 100/67 (78) 100 Intake and Output 04/18/19 04/19/19 19:00 07:00 Intake Total 1060 ml 1140 ml Output Total 385 ml 365 ml Balance 675 ml 775 ml Free Water 90 ml 80 ml IV Total 310 ml 400 ml Tube Feeding 660 ml 660 ml Output Urine Total 385 ml 365 ml # Bowel Movements 8 Laboratory Tests 04/19/19 09:10: White Blood Count 5.9, Red Blood Count 2.99L, Hemoglobin 8.6L, Hematocrit 25.5L , Mean Corpuscular Volume 85, Mean Corpuscular Hemoglobin 28.7, Mean Corpuscular Hemoglobin Concent 33.7, Red Cell Distribution Width 14.7, Platelet Count 192, Mean Platelet Volume 4.5L, Neutrophils (%) (Auto) 73.1, Lymphocytes ( %) (Auto) 14.7L, Monocytes (%) (Auto) 7.8, Eosinophils (%) (Auto) 3.6H, Basophils (%) (Auto) 0.8, Sodium Level 146H, Potassium Level 3.2L, Chloride Level 111H, Carbon Dioxide Level 28, Anion Gap 7, Blood Urea Nitrogen 19H, Creatinine 1.4H, Estimat Glomerular Filtration Rate > 60, Glucose Level 113H, Calcium Level 9.2, Phosphorus Level 2.1L, Magnesium Level 1.4L 04/19/19 12:29: Arterial Blood pH 7.370, Arterial Blood Partial Pressure CO2 48.8H, Arterial Blood Partial Pressure O2 83.0, Arterial Blood HCO3 27.6H, Arterial Blood Oxygen Saturation 95.4, Arterial Blood Base Excess 1.9, Antonio Test Positive 04/19/19 19:39: Arterial Blood pH 7.094*L, Arterial Blood Partial Pressure CO2 91.8*H, Arterial Blood Partial Pressure O2 57.7L, Arterial Blood HCO3 27.5H, Arterial Blood Oxygen Saturation 83.1*L, Arterial Blood Base Excess -3.7L, Antonio Test Positive Height (Feet): 5 Height (Inches): 7.00 Weight (Pounds): 166 Neck: supple Cardiovascular: normal rate Respiratory/Chest: lungs clear Shay Oreilly MD Apr 19, 2019 22:19
[2019-04-20] VITALS (30 sets, daily range): BP systolic 98–160; BP diastolic 62–90
--- NOTE | 2019-04-20 | NUR ---
NURSE NOTES: Patient opens eyes. Respirations at 20s, 100% saturation. Noted to be more responsive. Feeding resumed. Head of bed kept elevated.
--- NOTE | 2019-04-20 02:00 | NUR ---
NURSE NOTES: Patient awake, confused. Reoriented. Vital signs stable
[2019-04-20] MEDS: Albuterol/Ipratropium 3ml neb HHN SCH ×6 (03:32→23:08)
[2019-04-20] MEDS: Acetylcysteine 20% Soln 4ml HHN SCH ×6 (03:32→23:08)
--- NOTE | 2019-04-20 04:00 | NUR ---
NURSE NOTES: Bed bath. Oral care, change of linens done.
--- NOTE | 2019-04-20 04:00 | NUR ---
NURSE NOTES: Patient awake. Attempting to remove mask. Redirected and reoriented, not effective. Patient removed one of his IV heplock. Bilateral soft wrists restraints applied. Skin warm and dry, peripheral pulses present.
--- NOTE | 2019-04-20 06:00 | NUR ---
NURSE NOTES: Patient asleep. vital signs stable. No shortness of breath
--- NOTE | 2019-04-20 07:19 | NUR ---
HAND-OFF: Report given to BLANCA Hopkins.
--- NOTE | 2019-04-20 07:33 | Urology Progress Note ---
Assessment/Plan Status: unchanged Assessment/Plan: 1. 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 2. Urinary retention. 3. Acute kidney injury, improved. 4. Hydronephrosis, likely chronic. 5. Proteinuria. 6. UTI and colonization. 7. Hematuria. monitor clinically maintain guerra, last replaced 04/10 hand irrigated and do PRN position is satisfactory monitor renal fxn, labile likely obst of bilateral distal ureters secondary to advanced prostate ca will need to see how aggressive pt and family want to be renal fxn improved with the new guerra consider ureteral stents or nephrostomies? flomax added abx as ordered voiding trial at some point? Subjective Allergies: Coded Allergies: No Known Allergies (Unverified , 04/03/19) Subjective all noted, still in ICU, extubated, bipap Objective Last 24 Hour Vital Signs Date Time Temp Pulse Resp B/P (MAP) Pulse Ox O2 Delivery O2 Flow Rate FiO2 04/20/19 06:00 103 19 106/63 (77) 96 04/20/19 05:30 104 13 100 50 04/20/19 05:00 109 20 120/66 (84) 100 04/20/19 04:00 Mechanical Ventilator 04/20/19 04:00 112 04/20/19 04:00 98.1 108 16 103/65 (78) 100 04/20/19 04:00 50 04/20/19 03:32 109 14 100 Bi-Pap 50 111 17 100 50 04/20/19 03:00 113 24 110/67 (81) 100 04/20/19 02:00 106 17 101/63 (76) 100 04/20/19 01:00 107 21 101/65 (77) 99 04/20/19 01:00 108 14 97 100 04/20/19 00:00 50 04/20/19 00:00 106 04/20/19 00:00 Mechanical Ventilator 04/20/19 00:00 98.3 106 22 99/64 (76) 99 04/19/19 23:30 114 18 98 Bi-Pap 50 111 21 100 50 04/19/19 23:00 106 21 98/64 (75) 100 04/19/19 22:00 101 24 98/62 (74) 100 04/19/19 21:30 50 04/19/19 21:05 108 14 97 100 04/19/19 21:00 112 34 95/58 (70) 96 04/19/19 20:30 100 04/19/19 20:22 113 32 98 100 04/19/19 20:00 98.0 116 26 132/77 (95) 100 04/19/19 20:00 Venturi Mask 04/19/19 20:00 10.0 40 04/19/19 20:00 65 04/19/19 19:00 108 30 159/88 (111) 100 04/19/19 18:56 99 Cool Aerosol 12.0 40 04/19/19 18:54 117 31 100 Simple Mask 12.0 40 113 28 99 04/19/19 18:00 114 34 126/74 (91) 100 04/19/19 17:00 117 34 128/76 (93) 99 04/19/19 16:00 10.0 40 04/19/19 16:00 Mechanical Ventilator 04/19/19 16:00 98.2 125 33 142/80 (100) 100 04/19/19 16:00 121 04/19/19 15:00 123 28 145/89 (107) 100 04/19/19 14:55 120 30 100 Simple Mask 12.0 40 115 30 100 04/19/19 14:00 119 31 134/79 (97) 100 04/19/19 13:00 98.3 114 29 120/69 (86) 100 04/19/19 12:45 Simple Mask 12.0 40 04/19/19 12:00 40 04/19/19 12:00 113 32 120/72 (88) 100 04/19/19 12:00 Mechanical Ventilator 04/19/19 12:00 110 04/19/19 11:27 104 14 100 Mechanical Ventilator 50.0 40 102 10 40 04/19/19 11:00 106 15 109/70 (83) 100 04/19/19 10:00 108 15 106/66 (79) 100 04/19/19 09:03 115 33 40 04/19/19 09:00 114 37 121/79 (93) 100 04/19/19 08:45 100 04/19/19 08:00 Mechanical Ventilator 04/19/19 08:00 102 04/19/19 08:00 98.4 105 14 96/62 (73) 100 04/19/19 08:00 40 Intake and Output 04/19/19 04/20/19 19:00 07:00 Intake Total 1570 ml 880 ml Output Total 360 ml 490 ml Balance 1210 ml 390 ml Free Water 90 ml IV Total 985 ml 550 ml Tube Feeding 495 ml 330 ml Output Urine Total 360 ml 490 ml Microbiology Date/Time Source Procedure Growth Status 04/14/19 12:45 Blood Blood Culture - Final NO GROWTH AFTER 5 DAYS Complete 04/15/19 21:40 Sputum Gram Stain - Final Complete 04/15/19 21:40 Sputum Sputum Culture - Final NORMAL UPPER RESPIRATORY DAVID PRESENT Complete 04/18/19 17:00 Stool Clostridium difficile Toxin Assay - Final Complete 04/14/19 11:25 Urine,Random Urine Culture - Final NO GROWTH AFTER 48 HOURS Complete Current Medications Medications (Trade) Dose Ordered Sig/[place] Route PRN Reason Start Time Stop Time Status Last Admin Dose Admin Acetylcysteine (Mucomyst) 200 mg Q4HRT N 04/18/19 11:00 05/18/19 10:59 04/20/19 03:32 Albuterol/ Ipratropium (Albuterol/ Ipratropium) 3 ml Q4HRT N 04/18/19 11:00 04/23/19 10:59 04/20/19 03:32 Cefepime HCl 1 gm/ Dextrose 55 ml @ 110 mls/hr DAILY IVPB 04/16/19 09:00 04/21/19 08:59 04/19/19 08:34 Chlorhexidine Gluconate (Martha-Hex 2%) 1 applic DAILY@2000 TOPIC 04/18/19 20:00 05/18/19 19:59 04/19/19 20:11 Dextrose 1,000 ml @ 50 mls/hr Q20H IV 04/18/19 13:00 05/18/19 12:59 04/20/19 05:50 Enoxaparin Sodium (Lovenox) 30 mg DAILY SUBQ 04/14/19 09:00 05/04/19 08:59 04/19/19 08:37 Heparin Sodium/ Sodium Chloride (Heparin 1000 units/500ml Premix) 1,000 unit ONCE PRN IV PICC PLACEMENT 04/18/19 11:00 04/20/19 23:59 Hydralazine HCl (Apresoline) 10 mg Q4H PRN IV SBP > 170mmHg 04/13/19 15:00 05/08/19 14:59 Lansoprazole (Prevacid) 30 mg DAILY ORAL 04/14/19 09:00 05/13/19 08:59 04/19/19 08:34 Lidocaine HCl (Xylocaine 1% 30ml) 30 ml ONCE PRN INJ PICC PLACEMENT 04/18/19 11:00 04/20/19 23:59 Lorazepam (Ativan 2mg/ml 1ml) 1 mg Q6H PRN IV For Anxiety 04/17/19 18:15 04/24/19 18:14 04/19/19 02:34 Memantine (Namenda) 5 mg BID ORAL 04/13/19 18:00 05/04/19 17:59 04/19/19 17:52 Morphine Sulfate (Morphine Sulfate) 1 mg Q4H PRN IVP PAIN 4-10 04/13/19 18:00 04/20/19 17:59 04/17/19 14:18 Norepinephrine Bitartrate 4 mg/ Dextrose 250 ml @ 0 mls/hr Q24H IV 04/13/19 17:00 05/13/19 16:59 04/14/19 22:57 Tamsulosin HCl (Flomax) 0.4 mg BEDTIME ORAL 04/13/19 21:00 05/13/19 20:59 04/19/19 20:46 Laboratory Tests 04/19/19 09:10: White Blood Count 5.9, Red Blood Count 2.99L, Hemoglobin 8.6L, Hematocrit 25.5L , Mean Corpuscular Volume 85, Mean Corpuscular Hemoglobin 28.7, Mean Corpuscular Hemoglobin Concent 33.7, Red Cell Distribution Width 14.7, Platelet Count 192, Mean Platelet Volume 4.5L, Neutrophils (%) (Auto) 73.1, Lymphocytes ( %) (Auto) 14.7L, Monocytes (%) (Auto) 7.8, Eosinophils (%) (Auto) 3.6H, Basophils (%) (Auto) 0.8, Sodium Level 146H, Potassium Level 3.2L, Chloride Level 111H, Carbon Dioxide Level 28, Anion Gap 7, Blood Urea Nitrogen 19H, Creatinine 1.4H, Estimat Glomerular Filtration Rate > 60, Glucose Level 113H, Calcium Level 9.2, Phosphorus Level 2.1L, Magnesium Level 1.4L 04/19/19 12:29: Arterial Blood pH 7.370, Arterial Blood Partial Pressure CO2 48.8H, Arterial Blood Partial Pressure O2 83.0, Arterial Blood HCO3 27.6H, Arterial Blood Oxygen Saturation 95.4, Arterial Blood Base Excess 1.9, Antonio Test Positive 04/19/19 19:39: Arterial Blood pH 7.094*L, Arterial Blood Partial Pressure CO2 91.8*H, Arterial Blood Partial Pressure O2 57.7L, Arterial Blood HCO3 27.5H, Arterial Blood Oxygen Saturation 83.1*L, Arterial Blood Base Excess -3.7L, Antonio Test Positive 04/19/19 21:30: Arterial Blood pH 7.258L, Arterial Blood Partial Pressure CO2 63.9*H, Arterial Blood Partial Pressure O2 379.5H, Arterial Blood HCO3 27.9H, Arterial Blood Oxygen Saturation 99.2, Arterial Blood Base Excess 0.1, Antonio Test Positive Height (Feet): 5 Height (Inches): 7.00 Weight (Pounds): 166 Objective exam stable guerra indwelling, allegra urine CT A/P (04/10) noted Raz Root MD Apr 20, 2019 07:33
--- NOTE | 2019-04-20 07:35 | NUR ---
NURSE NOTES: LATE ENTRY: RECEIVED REPORT FROM SCOTT Rosales PT IN BED. AWAKENS TO NAME. SHAKING. VS 102, 105/68, SPO2 100, RR 19. PUPILS SLUGGISH 4MM. GAG PRESENT. STRENGTH 3/5. PT EXTUBATED YESTERDAY, NOW ON BIPAP, READJUSTED SETTIN/5, 50%. RHONCHI THROUGH OUT AND DIMINISHED. SCANT SECRETIONS. BILATERAL RADIAL PULSES POUNDING. ABDOMEN ROUND, BOWEL SOUNDS HYPERACTIVE. ONE BM AT THIS TIME, LOOSE STOOL. NGT LT NARES. BARTON DRAINING W/ SEDIMENT, YELLOW URINE. SKIN- SEE ASSESSMENT. IV ACCESS LT FA 22G, 20G, D5W AT 50ML/HR. A FEBRILE. STANDARD PRECAUTIONS. CALL LIGHT IN REACH. RESTRAINTS BILATERAL. BED ALARM ON
--- NOTE | 2019-04-20 07:42 | NUR ---
NURSE NOTES: MD GONZALEZ AND ENRRIQUE HERE TO SEE PT. WILL PLACE OWN ORDERS.
--- NOTE | 2019-04-20 07:44 | Nephrology Progress Note ---
Assessment/Plan Status: unchanged Assessment/Plan: A/P 1. LETA. multifact ATN. - Cr stable 1.4, AM LABS pending collection 2. Prostate cancer with elevated PSA 3. Hypokalemia- AM labs pending 4. Sepsis and UTI mgmt Infectious Disease mgmt 5. Hypernatremia- continue D5W until am labs collected 6. Hypercalcemia of malignancy- s/p pamidronate and calcitonin 7. Resp FL- extubated on BiPAP now Subjective Date patient seen: Apr 20, 2019 Time patient seen: 07:28 ROS Limited/Unobtainable: Yes Allergies: Coded Allergies: No Known Allergies (Unverified , 04/03/19) Subjective Patient now extubated and on BiPAP Objective Last 24 Hour Vital Signs Date Time Temp Pulse Resp B/P (MAP) Pulse Ox O2 Delivery O2 Flow Rate FiO2 04/20/19 06:00 103 19 106/63 (77) 96 04/20/19 05:30 104 13 100 50 04/20/19 05:00 109 20 120/66 (84) 100 04/20/19 04:00 Mechanical Ventilator 04/20/19 04:00 112 04/20/19 04:00 98.1 108 16 103/65 (78) 100 04/20/19 04:00 50 04/20/19 03:32 109 14 100 Bi-Pap 50 111 17 100 50 04/20/19 03:00 113 24 110/67 (81) 100 04/20/19 02:00 106 17 101/63 (76) 100 04/20/19 01:00 107 21 101/65 (77) 99 04/20/19 01:00 108 14 97 100 04/20/19 00:00 50 04/20/19 00:00 106 04/20/19 00:00 Mechanical Ventilator 04/20/19 00:00 98.3 106 22 99/64 (76) 99 04/19/19 23:30 114 18 98 Bi-Pap 50 111 21 100 50 04/19/19 23:00 106 21 98/64 (75) 100 04/19/19 22:00 101 24 98/62 (74) 100 04/19/19 21:30 50 04/19/19 21:05 108 14 97 100 04/19/19 21:00 112 34 95/58 (70) 96 2/16/20 20:30 100 04/19/19 20:22 113 32 98 100 04/19/19 20:00 98.0 116 26 132/77 (95) 100 04/19/19 20:00 Venturi Mask 04/19/19 20:00 10.0 40 04/19/19 20:00 65 04/19/19 19:00 108 30 159/88 (111) 100 04/19/19 18:56 99 Cool Aerosol 12.0 40 04/19/19 18:54 117 31 100 Simple Mask 12.0 40 113 28 99 04/19/19 18:00 114 34 126/74 (91) 100 04/19/19 17:00 117 34 128/76 (93) 99 04/19/19 16:00 10.0 40 04/19/19 16:00 Mechanical Ventilator 04/19/19 16:00 98.2 125 33 142/80 (100) 100 04/19/19 16:00 121 04/19/19 15:00 123 28 145/89 (107) 100 04/19/19 14:55 120 30 100 Simple Mask 12.0 40 115 30 100 04/19/19 14:00 119 31 134/79 (97) 100 04/19/19 13:00 98.3 114 29 120/69 (86) 100 04/19/19 12:45 Simple Mask 12.0 40 04/19/19 12:00 40 04/19/19 12:00 113 32 120/72 (88) 100 04/19/19 12:00 Mechanical Ventilator 04/19/19 12:00 110 04/19/19 11:27 104 14 100 Mechanical Ventilator 50.0 40 102 10 40 04/19/19 11:00 106 15 109/70 (83) 100 04/19/19 10:00 108 15 106/66 (79) 100 04/19/19 09:03 115 33 40 04/19/19 09:00 114 37 121/79 (93) 100 04/19/19 08:45 100 04/19/19 08:00 Mechanical Ventilator 04/19/19 08:00 102 04/19/19 08:00 98.4 105 14 96/62 (73) 100 04/19/19 08:00 40 Intake and Output 04/19/19 04/20/19 19:00 07:00 Intake Total 1570 ml 880 ml Output Total 360 ml 490 ml Balance 1210 ml 390 ml Free Water 90 ml IV Total 985 ml 550 ml Tube Feeding 495 ml 330 ml Output Urine Total 360 ml 490 ml Laboratory Tests 04/19/19 09:10: White Blood Count 5.9, Red Blood Count 2.99L, Hemoglobin 8.6L, Hematocrit 25.5L , Mean Corpuscular Volume 85, Mean Corpuscular Hemoglobin 28.7, Mean Corpuscular Hemoglobin Concent 33.7, Red Cell Distribution Width 14.7, Platelet Count 192, Mean Platelet Volume 4.5L, Neutrophils (%) (Auto) 73.1, Lymphocytes ( %) (Auto) 14.7L, Monocytes (%) (Auto) 7.8, Eosinophils (%) (Auto) 3.6H, Basophils (%) (Auto) 0.8, Sodium Level 146H, Potassium Level 3.2L, Chloride Level 111H, Carbon Dioxide Level 28, Anion Gap 7, Blood Urea Nitrogen 19H, Creatinine 1.4H, Estimat Glomerular Filtration Rate > 60, Glucose Level 113H, Calcium Level 9.2, Phosphorus Level 2.1L, Magnesium Level 1.4L 04/19/19 12:29: Arterial Blood pH 7.370, Arterial Blood Partial Pressure CO2 48.8H, Arterial Blood Partial Pressure O2 83.0, Arterial Blood HCO3 27.6H, Arterial Blood Oxygen Saturation 95.4, Arterial Blood Base Excess 1.9, Antonio Test Positive 04/19/19 19:39: Arterial Blood pH 7.094*L, Arterial Blood Partial Pressure CO2 91.8*H, Arterial Blood Partial Pressure O2 57.7L, Arterial Blood HCO3 27.5H, Arterial Blood Oxygen Saturation 83.1*L, Arterial Blood Base Excess -3.7L, Antonio Test Positive 04/19/19 21:30: Arterial Blood pH 7.258L, Arterial Blood Partial Pressure CO2 63.9*H, Arterial Blood Partial Pressure O2 379.5H, Arterial Blood HCO3 27.9H, Arterial Blood Oxygen Saturation 99.2, Arterial Blood Base Excess 0.1, Antonio Test Positive Height (Feet): 5 Height (Inches): 7.00 Weight (Pounds): 166 General Appearance: no apparent distress EENT: normal ENT inspection Neck: normal alignment Cardiovascular: normal rate, regular rhythm Respiratory/Chest: rhonchi - bilaterally Abdomen: non tender, soft Edema: no edema noted Arm (L), no edema noted Arm (R), no edema noted Leg (L), no edema noted Leg (R), no edema noted Pedal (L), no edema noted Pedal (R), no edema noted Generalized Carlos White MD Apr 20, 2019 07:44
--- NOTE | 2019-04-20 08:03 | NUR ---
NURSE NOTES: RN CRITICAL CARE HERE TO DRAW LABS. RADIOLOGY HERE FOR CXR.
[2019-04-20 08:29] LABS: ANION GAP 6 mmol/L (5-15); BLOOD UREA NITROGEN 19 mg/dL (7-18); CALCIUM 9.3 MG/DL (8.5-10.1); CARBON DIOXIDE 28 MMOL/L (21-32); CHLORIDE 111 MMOL/L (98-107); CREATININE 1.4 MG/DL (0.55-1.30); POTASSIUM 3.7 MMOL/L (3.5-5.1); SODIUM 145 MMOL/L (136-145)
--- NOTE | 2019-04-20 08:57 | NUR ---
NURSE NOTES: pt off bipap, now on 3l nc sating 99%, rr 27
[2019-04-20] MEDS: Enoxaparin 30mg Inj SUBQ SCH (09:00)
--- NOTE | 2019-04-20 09:19 | General Progress Note ---
Assessment/Plan Status: unchanged Assessment/Plan: Assessment/Plan Problems: (1) Coffee ground emesis (2) Anemia (3) metastatic prostate CA (4) respiratory failure extubated on BIPAP in the ICU NGTF tolerated ppi swallow eval for tomorrow if stable will fu Subjective ROS Limited/Unobtainable: No Allergies: Coded Allergies: No Known Allergies (Unverified , 04/03/19) Objective Last 24 Hour Vital Signs Date Time Temp Pulse Resp B/P (MAP) Pulse Ox O2 Delivery O2 Flow Rate FiO2 04/20/19 07:33 100 Bi-Pap 50 04/20/19 07:29 102 16 100 Bi-Pap 50 106 18 100 50 04/20/19 06:00 103 19 106/63 (77) 96 04/20/19 05:30 104 13 100 50 04/20/19 05:00 109 20 120/66 (84) 100 04/20/19 04:00 Mechanical Ventilator 04/20/19 04:00 112 04/20/19 04:00 98.1 108 16 103/65 (78) 100 04/20/19 04:00 50 04/20/19 03:32 109 14 100 Bi-Pap 50 111 17 100 50 04/20/19 03:00 113 24 110/67 (81) 100 04/20/19 02:00 106 17 101/63 (76) 100 04/20/19 01:00 107 21 101/65 (77) 99 04/20/19 01:00 108 14 97 100 04/20/19 00:00 50 04/20/19 00:00 106 04/20/19 00:00 Mechanical Ventilator 04/20/19 00:00 98.3 106 22 99/64 (76) 99 04/19/19 23:30 114 18 98 Bi-Pap 50 111 21 100 50 04/19/19 23:00 106 21 98/64 (75) 100 04/19/19 22:00 101 24 98/62 (74) 100 04/19/19 21:30 50 04/19/19 21:05 108 14 97 100 04/19/19 21:00 112 34 95/58 (70) 96 04/19/19 20:30 100 04/19/19 20:22 113 32 98 100 04/19/19 20:00 98.0 116 26 132/77 (95) 100 04/19/19 20:00 Venturi Mask 04/19/19 20:00 10.0 40 04/19/19 20:00 65 04/19/19 19:00 108 30 159/88 (111) 100 04/19/19 18:56 99 Cool Aerosol 12.0 40 04/19/19 18:54 117 31 100 Simple Mask 12.0 40 113 28 99 04/19/19 18:00 114 34 126/74 (91) 100 04/19/19 17:00 117 34 128/76 (93) 99 04/19/19 16:00 10.0 40 04/19/19 16:00 Mechanical Ventilator 04/19/19 16:00 98.2 125 33 142/80 (100) 100 04/19/19 16:00 121 04/19/19 15:00 123 28 145/89 (107) 100 04/19/19 14:55 120 30 100 Simple Mask 12.0 40 115 30 100 04/19/19 14:00 119 31 134/79 (97) 100 04/19/19 13:00 98.3 114 29 120/69 (86) 100 04/19/19 12:45 Simple Mask 12.0 40 04/19/19 12:00 40 04/19/19 12:00 113 32 120/72 (88) 100 04/19/19 12:00 Mechanical Ventilator 04/19/19 12:00 110 04/19/19 11:27 104 14 100 Mechanical Ventilator 50.0 40 102 10 40 04/19/19 11:00 106 15 109/70 (83) 100 04/19/19 10:00 108 15 106/66 (79) 100 Intake and Output 04/19/19 04/20/19 19:00 07:00 Intake Total 1570 ml 880 ml Output Total 360 ml 490 ml Balance 1210 ml 390 ml Free Water 90 ml IV Total 985 ml 550 ml Tube Feeding 495 ml 330 ml Output Urine Total 360 ml 490 ml Laboratory Tests 04/19/19 12:29: Arterial Blood pH 7.370, Arterial Blood Partial Pressure CO2 48.8H, Arterial Blood Partial Pressure O2 83.0, Arterial Blood HCO3 27.6H, Arterial Blood Oxygen Saturation 95.4, Arterial Blood Base Excess 1.9, Antonio Test Positive 04/19/19 19:39: Arterial Blood pH 7.094*L, Arterial Blood Partial Pressure CO2 91.8*H, Arterial Blood Partial Pressure O2 57.7L, Arterial Blood HCO3 27.5H, Arterial Blood Oxygen Saturation 83.1*L, Arterial Blood Base Excess -3.7L, Antonio Test Positive 04/19/19 21:30: Arterial Blood pH 7.258L, Arterial Blood Partial Pressure CO2 63.9*H, Arterial Blood Partial Pressure O2 379.5H, Arterial Blood HCO3 27.9H, Arterial Blood Oxygen Saturation 99.2, Arterial Blood Base Excess 0.1, Antonio Test Positive 04/20/19 07:50: Sodium Level 145, Potassium Level 3.7, Chloride Level 111H, Carbon Dioxide Level 28, Anion Gap 6, Blood Urea Nitrogen 19H, Creatinine 1.4H, Estimat Glomerular Filtration Rate > 60, Glucose Level 110H, Calcium Level 9.3 Height (Feet): 5 Height (Inches): 7.00 Weight (Pounds): 166 General Appearance: lethargic EENT: normal ENT inspection Neck: supple Cardiovascular: tachycardia Respiratory/Chest: decreased breath sounds Abdomen: normal bowel sounds, non tender, soft Extremities: non-tender Tyrone Lamb MD Apr 20, 2019 09:19
[2019-04-20] MEDS: Memantine 5 MG TAB ORAL SCH ×2 (09:34→17:34)
[2019-04-20] MEDS: Cefepime HCl 1 GM in D5W 55 ML IVPB SCH (09:35)
--- NOTE | 2019-04-20 09:41 | NUR ---
RD ASSESSMENT & RECOMMENDATIONS SEE CARE ACTIVITY FOR COMPLETE ASSESSMENT DAILY ESTIMATED NEEDS: Needs based on Underweight, cancer, Pulmonary 54.7kg 30-35 kcals/kg 9924-8260 total kcals 1.25-2 g protein/kg 68-109 g total protein 25-30 mL/kg 3632-2457 total fluid mLs NUTRITION DIAGNOSIS: Underweight r/t cancer? as evidenced by pt w/ prostate cancer, elevated antigen and calcium levels, w/ generalized moderate wasting, previously poor po intake, pt is 81% of [place] body Weight, currently s/p code blue x2, re-intubated now extubated, NGT feeds, off pressors. CURRENT TF:Vital @55ml/hr x24 hrs PO DIET RECOMMENDATIONS: Liberalized REGULAR DIET/ texture per [employer] ENTERAL NUTRITION RECOMMENDATIONS: Vital AF 1.2 @55ml/hr x24 hrs to provide 1320ml, 1584 kcal, 99g prom 1071ml free H2O - Maintain current TF formula and rate. If able, rec to increase to 60ml/hr to meet 100% est kcal needs. - [employer] eval post extubation. - Flush per MD/ HOB over 30 degrees ADDITIONAL RECOMMENDATIONS: 1) Recalibrated bed wts for daily wts -> daily wts are inconsistenht 2) Add KATIE BID for wounds + Vit C 250mg daily 3) Monitor lytes, replete as needed 4) Now reintubated-> NGT feed recs as above when stable 5) Monitor Ca: previously elevated / rec NEPRO should calcium trend up for lowest calcium content 6) W/ oral diet, rec Ensure Enlive BID. Monitor calcium; need for NEPRO
--- NOTE | 2019-04-20 10:43 | Diagnostic Imaging Report ---
Indication: Dyspnea Technique: One view of the chest Comparison: 04/18/2019 Findings: Less optimal inspiration currently. Interim removal of endotracheal tube. Nasogastric tube remains. There is bilateral interstitial and airspace edema, which appears similar in extent to the previous exam. There is bilateral pleural fluid, left greater than right, appearing increased. The heart size is normal. The aorta is tortuous. Impression: Interim extubation Increased left greater than right pleural fluid
--- NOTE | 2019-04-20 10:58 | Pulmonology Progress Note ---
Assessment/Plan Assessment/Plan IMPRESSION: 1. Status post asystolic cardiac arrest. Again on 04/13/19 2. Respiratory failure, re-intubated; and now extubated 04/20/19 3. Altered mental status. Resolved 4. Hypernatremia. Corrected. 5. Hypokalemia . Corrected. 6. History of COPD. 7. Prostate CA. DISCUSSION: 1. Discussed with cardiology and PMD 2. Discussed with daughter in law (James), son (Abdoul) and sister 3. Doing well post extubation 5. Dc diuretics 6. Transfused CXR looking better; Needs PEG; would not advise PO diet again Ganesh Mathews M.D. Subjective Interval Events: None new; extubated yesterday Constitutional: Reports: no symptoms HEENT: Repors: no symptoms Respiratory: Reports: no symptoms Cardiovascular: Reports: no symptoms Gastrointestinal/Abdominal: Reports: no symptoms Allergies: Coded Allergies: No Known Allergies (Unverified , 04/03/19) Objective Last 24 Hour Vital Signs Date Time Temp Pulse Resp B/P (MAP) Pulse Ox O2 Delivery O2 Flow Rate FiO2 04/20/19 10:43 108 25 100 111 25 100 04/20/19 07:33 100 Bi-Pap 50 04/20/19 07:29 102 16 100 Bi-Pap 50 106 18 100 50 04/20/19 06:00 103 19 106/63 (77) 96 04/20/19 05:30 104 13 100 50 04/20/19 05:00 109 20 120/66 (84) 100 04/20/19 04:00 Mechanical Ventilator 04/20/19 04:00 112 04/20/19 04:00 98.1 108 16 103/65 (78) 100 04/20/19 04:00 50 04/20/19 03:32 109 14 100 Bi-Pap 50 111 17 100 50 04/20/19 03:00 113 24 110/67 (81) 100 04/20/19 02:00 106 17 101/63 (76) 100 04/20/19 01:00 107 21 101/65 (77) 99 2/17/20 01:00 108 14 97 100 04/20/19 00:00 50 04/20/19 00:00 106 04/20/19 00:00 Mechanical Ventilator 04/20/19 00:00 98.3 106 22 99/64 (76) 99 04/19/19 23:30 114 18 98 Bi-Pap 50 111 21 100 50 04/19/19 23:00 106 21 98/64 (75) 100 04/19/19 22:00 101 24 98/62 (74) 100 04/19/19 21:30 50 04/19/19 21:05 108 14 97 100 04/19/19 21:00 112 34 95/58 (70) 96 04/19/19 20:30 100 04/19/19 20:22 113 32 98 100 04/19/19 20:00 98.0 116 26 132/77 (95) 100 04/19/19 20:00 Venturi Mask 04/19/19 20:00 10.0 40 04/19/19 20:00 65 04/19/19 19:00 108 30 159/88 (111) 100 04/19/19 18:56 99 Cool Aerosol 12.0 40 04/19/19 18:54 117 31 100 Simple Mask 12.0 40 113 28 99 04/19/19 18:00 114 34 126/74 (91) 100 04/19/19 17:00 117 34 128/76 (93) 99 04/19/19 16:00 10.0 40 04/19/19 16:00 Mechanical Ventilator 04/19/19 16:00 98.2 125 33 142/80 (100) 100 04/19/19 16:00 121 04/19/19 15:00 123 28 145/89 (107) 100 04/19/19 14:55 120 30 100 Simple Mask 12.0 40 115 30 100 04/19/19 14:00 119 31 134/79 (97) 100 04/19/19 13:00 98.3 114 29 120/69 (86) 100 04/19/19 12:45 Simple Mask 12.0 40 04/19/19 12:00 40 04/19/19 12:00 113 32 120/72 (88) 100 04/19/19 12:00 Mechanical Ventilator 04/19/19 12:00 110 04/19/19 11:27 104 14 100 Mechanical Ventilator 50.0 40 102 10 40 04/19/19 11:00 106 15 109/70 (83) 100 Intake and Output 04/19/19 04/20/19 18:59 06:59 Intake Total 1570 ml 985 ml Output Total 350 ml 520 ml Balance 1220 ml 465 ml Free Water 90 ml IV Total 985 ml 600 ml Tube Feeding 495 ml 385 ml Output Urine Total 350 ml 520 ml General Appearance: no acute distress HEENT: normocephalic Respiratory/Chest: chest wall non-tender, lungs clear Cardiovascular: normal peripheral pulses Abdomen: normal bowel sounds Microbiology Date/Time Source Procedure Growth Status 04/18/19 17:00 Stool Clostridium difficile Toxin Assay - Final Complete Laboratory Tests 04/19/19 12:29: Arterial Blood pH 7.370, Arterial Blood Partial Pressure CO2 48.8H, Arterial Blood Partial Pressure O2 83.0, Arterial Blood HCO3 27.6H, Arterial Blood Oxygen Saturation 95.4, Arterial Blood Base Excess 1.9, Antonio Test Positive 04/19/19 19:39: Arterial Blood pH 7.094*L, Arterial Blood Partial Pressure CO2 91.8*H, Arterial Blood Partial Pressure O2 57.7L, Arterial Blood HCO3 27.5H, Arterial Blood Oxygen Saturation 83.1*L, Arterial Blood Base Excess -3.7L, Antonio Test Positive 04/19/19 21:30: Arterial Blood pH 7.258L, Arterial Blood Partial Pressure CO2 63.9*H, Arterial Blood Partial Pressure O2 379.5H, Arterial Blood HCO3 27.9H, Arterial Blood Oxygen Saturation 99.2, Arterial Blood Base Excess 0.1, Antonio Test Positive 04/20/19 07:50: Sodium Level 145, Potassium Level 3.7, Chloride Level 111H, Carbon Dioxide Level 28, Anion Gap 6, Blood Urea Nitrogen 19H, Creatinine 1.4H, Estimat Glomerular Filtration Rate > 60, Glucose Level 110H, Calcium Level 9.3 Current Medications Medications (Trade) Dose Ordered Sig/[place] Route PRN Reason Start Time Stop Time Status Last Admin Dose Admin Acetylcysteine (Mucomyst) 200 mg Q4HRT [facility] 04/18/19 11:00 05/18/19 10:59 04/20/19 10:40 Albuterol/ Ipratropium (Albuterol/ Ipratropium) 3 ml Q4HRT [facility] 04/18/19 11:00 04/23/19 10:59 04/20/19 10:40 Cefepime HCl 1 gm/ Dextrose 55 ml @ 110 mls/hr DAILY IVPB 04/16/19 09:00 04/21/19 08:59 04/20/19 09:35 Chlorhexidine Gluconate (Martha-Hex 2%) 1 applic DAILY@2000 TOPIC 04/18/19 20:00 05/18/19 19:59 04/19/19 20:11 Dextrose 1,000 ml @ 50 mls/hr Q20H IV 04/18/19 13:00 05/18/19 12:59 04/20/19 05:50 Enoxaparin Sodium (Lovenox) 30 mg DAILY SUBQ 04/14/19 09:00 05/04/19 08:59 04/19/19 08:37 Heparin Sodium/ Sodium Chloride (Heparin 1000 units/500ml Premix) 1,000 unit ONCE PRN IV PICC PLACEMENT 04/18/19 11:00 04/20/19 23:59 Hydralazine HCl (Apresoline) 10 mg Q4H PRN IV SBP > 170mmHg 04/13/19 15:00 05/08/19 14:59 Lansoprazole (Prevacid) 30 mg DAILY ORAL 04/14/19 09:00 05/13/19 08:59 04/20/19 09:34 Lidocaine HCl (Xylocaine 1% 30ml) 30 ml ONCE PRN INJ PICC PLACEMENT 04/18/19 11:00 04/20/19 23:59 Lorazepam (Ativan 2mg/ml 1ml) 1 mg Q6H PRN IV For Anxiety 04/17/19 18:15 04/24/19 18:14 04/19/19 02:34 Memantine (Namenda) 5 mg BID ORAL 04/13/19 18:00 05/04/19 17:59 04/20/19 09:34 Morphine Sulfate (Morphine Sulfate) 1 mg Q4H PRN IVP PAIN 4-10 04/13/19 18:00 04/20/19 17:59 04/17/19 14:18 Norepinephrine Bitartrate 4 mg/ Dextrose 250 ml @ 0 mls/hr Q24H IV 04/13/19 17:00 05/13/19 16:59 04/14/19 22:57 Tamsulosin HCl (Flomax) 0.4 mg BEDTIME ORAL 04/13/19 21:00 05/13/19 20:59 04/19/19 20:46 Ganesh Mathews MD Apr 20, 2019 10:58
--- NOTE | 2019-04-20 11:34 | Infectious Diseases Prog Note ---
Assessment/Plan Assessment/Plan Assessment: s/p bradycardia>cardiac arrest 04/13 VDRF 04/13; sp extubation 04/19 Shock, recurrent- off pressors -04/20 CXR: Interim extubation. Increased left greater than right pleural fluid s/p asystole cardiac arrest 04/06 VDRF; s/p extubation 04/08 Low grade fever; SP Mild leukocytosis, recurrent- SP -04/15 sp cx normal resp sharyn (prelim) -04/14 u/a wbc 10-15, nit neg, leuk +3; ucx NTD CXR: Interim development of complete right upper lobe atelectasis. Nonspecific diffuse hazy left lung opacity, likely mild pulmonary edema. -04/07 Bcx NTD u/a wbc tnct, nit neg, leuk +; ucx neg -04/06 CXR: Interval resolution of right apical density. This suggests the diagnosis was atelectasis rather than an apical cap from blood, which was suggested as a possibility on the prior report. The right upper lobe atelectasis has resolved. Suspicion of new atelectasis at the right lung base. Sepsis UTI B/l hydroureteronephrosis -04/10 CT abd/p: Evidence of advanced metastatic neoplasm likely secondary to prostate carcinoma. Extensive retroperitoneal and pelvic lymphadenopathy complicated by presence of bilateral hydroureteronephrosis. Extensive metastatic disease involving the bones also noted. Small left pleural effusion. Right trace right pleural effusion. Right inguinal hernia containing a small amount of fluid. Alternatively this could represent part of the testis. Anasarca. -u/a wbc 20-30, nit +, leuk +3; ucx >100k E.coli (R amp, bactrim; otherwise S) Probable Aspiration pneumonitis vs PNA -04/08 CXR: Patchy perihilar disease which may be asymmetric interstitial edema or infiltrate unchanged. Interval resolution of right basal atelectasis. -04/07 sp cx normal sharyn(prelim) s/p recent fall LETA Hypokalemia prostate CA stage IV, mets to bone chronic indwelling guerra catheter Plan: -Continue Cefepime #09/07-10 given HD decompensation and pending repeat cultures -04/17 SP Vanc IV #4 -210 SP Ceftriaxone #4 - 2/7 Sp ZOsyn #4 -2/6 SP IV Vancomycin #3 -2/4 SP Ceftriaxone #4 -f/u cx -Monitor CBC/CMP, temperatures -aspiration precautions -Cards, renal, Uro, pulm f/u -ICU care -poor px- consider re-evaluation of goals of care- ?Hospice Thank you for this consultation. Will continue to follow along with you. Subjective Allergies: Coded Allergies: No Known Allergies (Unverified , 04/03/19) Subjective afebrile no leukocytosis extubated yesterday, now on Bipap Objective Vital Signs Last 24 Hour Vital Signs Date Time Temp Pulse Resp B/P (MAP) Pulse Ox O2 Delivery O2 Flow Rate FiO2 04/20/19 11:00 112 29 117/69 (85) 100 04/20/19 10:43 108 25 100 111 25 100 04/20/19 10:30 110 29 118/69 (85) 99 04/20/19 10:00 3.0 04/20/19 10:00 108 20 123/75 (91) 100 04/20/19 09:30 108 28 112/70 (84) 99 04/20/19 09:00 114 28 110/74 (86) 98 04/20/19 08:30 103 16 103/68 (80) 100 04/20/19 08:00 50 04/20/19 08:00 102 04/20/19 08:00 101 17 98/67 (77) 99 04/20/19 07:33 100 Bi-Pap 50 04/20/19 07:30 105 22 106/76 (86) 99 04/20/19 07:29 102 16 100 Bi-Pap 50 106 18 100 50 04/20/19 07:00 98.5 103 19 105/68 (80) 100 04/20/19 06:00 103 19 106/63 (77) 96 04/20/19 05:30 104 13 100 50 04/20/19 05:00 109 20 120/66 (84) 100 04/20/19 04:00 Mechanical Ventilator 04/20/19 04:00 112 04/20/19 04:00 98.1 108 16 103/65 (78) 100 04/20/19 04:00 50 04/20/19 03:32 109 14 100 Bi-Pap 50 111 17 100 50 04/20/19 03:00 113 24 110/67 (81) 100 04/20/19 02:00 106 17 101/63 (76) 100 04/20/19 01:00 107 21 101/65 (77) 99 04/20/19 01:00 108 14 97 100 04/20/19 00:00 50 04/20/19 00:00 106 04/20/19 00:00 Mechanical Ventilator 04/20/19 00:00 98.3 106 22 99/64 (76) 99 04/19/19 23:30 114 18 98 Bi-Pap 50 111 21 100 50 04/19/19 23:00 106 21 98/64 (75) 100 04/19/19 22:00 101 24 98/62 (74) 100 04/19/19 21:30 50 04/19/19 21:05 108 14 97 100 04/19/19 21:00 112 34 95/58 (70) 96 04/19/19 20:30 100 04/19/19 20:22 113 32 98 100 04/19/19 20:00 98.0 116 26 132/77 (95) 100 04/19/19 20:00 Venturi Mask 04/19/19 20:00 10.0 40 04/19/19 20:00 65 04/19/19 19:00 108 30 159/88 (111) 100 04/19/19 18:56 99 Cool Aerosol 12.0 40 04/19/19 18:54 117 31 100 Simple Mask 12.0 40 113 28 99 04/19/19 18:00 114 34 126/74 (91) 100 04/19/19 17:00 117 34 128/76 (93) 99 04/19/19 16:00 10.0 40 04/19/19 16:00 Mechanical Ventilator 04/19/19 16:00 98.2 125 33 142/80 (100) 100 04/19/19 16:00 121 04/19/19 15:00 123 28 145/89 (107) 100 04/19/19 14:55 120 30 100 Simple Mask 12.0 40 115 30 100 04/19/19 14:00 119 31 134/79 (97) 100 04/19/19 13:00 98.3 114 29 120/69 (86) 100 04/19/19 12:45 Simple Mask 12.0 40 04/19/19 12:00 40 04/19/19 12:00 113 32 120/72 (88) 100 04/19/19 12:00 Mechanical Ventilator 04/19/19 12:00 110 Height (Feet): 5 Height (Inches): 7.00 Weight (Pounds): 166 Objective General Appearance: normal inspection, alert, Chronically Ill ENT: ETT in place Neck: normal inspection, full range of motion, supple, no bony tend Respiratory: normal inspection, lungs clear, no wheezing Cardiovascular # regular rate, rhythm, no edema Gastrointestinal: normal inspection, normal bowel sounds, non tender, soft, no guardinga Musculoskeletal: normal inspection, back normal, normal range of motion Skin: no rash Microbiology Date/Time Source Procedure Growth Status 04/18/19 17:00 Stool Clostridium difficile Toxin Assay - Final Complete Laboratory Tests Test 04/19/19 12:29 04/19/19 19:39 04/19/19 21:30 04/20/19 07:50 Arterial Blood pH 7.370 (7.350-7.450) 7.094 (7.350-7.450) 7.258 (7.350-7.450) Arterial Blood Partial Pressure CO2 48.8 mmHg (35.0-45.0) H 91.8 mmHg (35.0-45.0) *H 63.9 mmHg (35.0-45.0) *H Arterial Blood Partial Pressure O2 83.0 mmHg (75.0-100.0) 57.7 mmHg (75.0-100.0) L 379.5 mmHg (75.0-100.0) H Arterial Blood HCO3 27.6 mmol/L (22.0-26.0) H 27.5 mmol/L (22.0-26.0) H 27.9 mmol/L (22.0-26.0) H Arterial Blood Oxygen Saturation 95.4 % (95-100) 83.1 % (95-100) *L 99.2 % (95-100) Arterial Blood Base Excess 1.9 (-2-2) -3.7 (-2-2) L 0.1 (-2-2) Antonio Test Positive Positive Positive Sodium Level 145 MMOL/L (136-145) Potassium Level 3.7 MMOL/L (3.5-5.1) Chloride Level 111 MMOL/L (98-107) H Carbon Dioxide Level 28 MMOL/L (21-32) Anion Gap 6 mmol/L (5-15) Blood Urea Nitrogen 19 mg/dL (7-18) H Creatinine 1.4 MG/DL (0.55-1.30) H Estimat Glomerular Filtration Rate > 60 mL/min (>60) Glucose Level 110 MG/DL (74-106) H Calcium Level 9.3 MG/DL (8.5-10.1) Test 04/20/19 10:48 Arterial Blood pH 7.316 (7.350-7.450) Arterial Blood Partial Pressure CO2 52.4 mmHg (35.0-45.0) H Arterial Blood Partial Pressure O2 93.1 mmHg (75.0-100.0) Arterial Blood HCO3 26.1 mmol/L (22.0-26.0) H Arterial Blood Oxygen Saturation 96.3 % (95-100) Arterial Blood Base Excess -0.4 (-2-2) Antonio Test Positive Current Medications Medications (Trade) Dose Ordered Sig/La Nena Route PRN Reason Start Time Stop Time Status Last Admin Dose Admin Acetylcysteine (Mucomyst) 200 mg Q4HRT N 04/18/19 11:00 05/18/19 10:59 04/20/19 10:40 Albuterol/ Ipratropium (Albuterol/ Ipratropium) 3 ml Q4HRT N 04/18/19 11:00 04/23/19 10:59 04/20/19 10:40 Cefepime HCl 1 gm/ Dextrose 55 ml @ 110 mls/hr DAILY IVPB 04/16/19 09:00 04/21/19 08:59 04/20/19 09:35 Chlorhexidine Gluconate (Martha-Hex 2%) 1 applic DAILY@2000 TOPIC 04/18/19 20:00 05/18/19 19:59 04/19/19 20:11 Dextrose 1,000 ml @ 50 mls/hr Q20H IV 04/18/19 13:00 05/18/19 12:59 04/20/19 05:50 Enoxaparin Sodium (Lovenox) 30 mg DAILY SUBQ 04/14/19 09:00 05/04/19 08:59 04/19/19 08:37 Heparin Sodium/ Sodium Chloride (Heparin 1000 units/500ml Premix) 1,000 unit ONCE PRN IV PICC PLACEMENT 04/18/19 11:00 04/20/19 23:59 Hydralazine HCl (Apresoline) 10 mg Q4H PRN IV SBP > 170mmHg 04/13/19 15:00 05/08/19 14:59 Lansoprazole (Prevacid) 30 mg DAILY ORAL 04/14/19 09:00 05/13/19 08:59 04/20/19 09:34 Lidocaine HCl (Xylocaine 1% 30ml) 30 ml ONCE PRN INJ PICC PLACEMENT 04/18/19 11:00 04/20/19 23:59 Lorazepam (Ativan 2mg/ml 1ml) 1 mg Q6H PRN IV For Anxiety 04/17/19 18:15 04/24/19 18:14 04/19/19 02:34 Memantine (Namenda) 5 mg BID ORAL 04/13/19 18:00 05/04/19 17:59 04/20/19 09:34 Morphine Sulfate (Morphine Sulfate) 1 mg Q4H PRN IVP PAIN 4-10 04/13/19 18:00 04/20/19 17:59 04/17/19 14:18 Norepinephrine Bitartrate 4 mg/ Dextrose 250 ml @ 0 mls/hr Q24H IV 04/13/19 17:00 05/13/19 16:59 04/14/19 22:57 Tamsulosin HCl (Flomax) 0.4 mg BEDTIME ORAL 04/13/19 21:00 05/13/19 20:59 04/19/19 20:46 Rafia Nielson M.D. Apr 20, 2019 11:34
--- NOTE | 2019-04-20 11:56 | Hematology/Onc Progress Note ---
Assessment/Plan Assessment/Plan # Prostate cancer stage IV with psa >700, cr is worse, hydronephrosis noted, seen by renal, Dr. White. --> i did received records from [facility]. has regional lymphadenopathy, s/p transrectal biopsy with Gleasons 5+5 (2010) in all cores, apparently has had a 3 year course of androgen deprivation from 2011- 2014.also status post RADIATION to the prostate, then lost to followup. Following surviellance psa 0.45-->65, in 10/2016, and up to 127 in 12/2016, Ct scan showed recurrence of disease with lad but no bony mets, started on lupron 01/2017, psa fell yo 73-->46, has been sarted on zytiga + prednisone, and now psa progression on zytiga, he started xtandi in 01/2019 Psa 87. He did not go through urethral stenting, he has deferred treatment with chemo. --> He is a very poor historian, I have talked to the sister --> imaging has been noted --> as per urology recs, reviewed --> have called , no answer, trans to [facility]? --> poor prognosis given above history of treatment, defer transfer to [facility] --> psa 737-->757 --> CT ABD 04/10: Evidence of advanced metastatic neoplasm likely secondary to prostate carcinoma. Extensive retroperitoneal and pelvic lymphadenopathy complicated by presence of bilateral hydroureteronephrosis. Extensive metastatic disease involving the bones also noted. Status post seed implant radiation therapy to the prostate gland. # Hypercalcemia -- now acutely worse --> trend Ca++ 8.1-->13-->12-->10.3-->10.7-->13.2 -->11-->10.5 --> ivf has been started --> as per nephrology --> calcitonin was given # Anemia due to underlying malignancy --> hgb trend as needed 9.2-->7-->10.9-->11-->9.7-->8.1-->8.6 --> no hemolysis is noted --> no bleeding --> blood tx: 04/18, # Episode of generalized weakness --> on ivf --> pt as needed # Hypokalemia --> replete prn # Dehydration --> on ivf # Atrophic changes without evident intracranial hemorrhage. --> as per neuro, remains confused # Respiratory failure s/p vent now ext --> on bipap++ # Hypernatremia as well as low BUN. --> on ivf # Poor prognosis # Dvt ppx lovenox sq Appreciate consultation and dW Rn Subjective Constitutional: Denies: no symptoms, chills, fever, malaise, weakness, other HEENT: Denies: no symptoms, eye pain, blurred vision, tearing, double vision, ear pain, ear discharge, nose pain, nose congestion, throat pain, throat swelling, mouth pain, mouth swelling, other Cardiovascular: Denies: no symptoms, chest pain, edema, irregular heart rate, lightheadedness, palpitations, syncope, other Respiratory: Denies: no symptoms, cough, shortness of breath, SOB with excertion, SOB at rest, sputum, wheezing, other Gastrointestinal/Abdominal: Denies: no symptoms, abdomen distended, abdominal pain, black stools, tarry stools, blood in stool, constipated, diarrhea, difficulty swallowing, nausea, poor appetite, poor fluid intake, rectal bleeding , vomiting, other Genitourinary: Denies: no symptoms, burning, discharge, frequency, flank pain, hematuria, incontinence, pain, urgency, other Neurologic/Psychiatric: Denies: no symptoms, anxiety, depressed, emotional problems, headache, numbness, paresthesia, pre-existing deficit, seizure, tingling, tremors, weakness, other Endocrine: Denies: no symptoms, excessive sweating, flushing, intolerance to cold, intolerance to heat, increased hunger, increased thirst, increased urine, unexplained weight gain, unexplained weight loss, other Allergies: Coded Allergies: No Known Allergies (Unverified , 04/03/19) Subjective 23: no events, apparently intubated today and transferred to the icu, will dw family 04/07: remains in the icu, critically ill, Ca++ 12, on vent, minimally responsive , on dopa, dw pcp and pulm 04/08: no major changes, no night sweats, labs have been reviewed, dw daughter, he is more alert 04/10: awake, no acute events ct abd reviewed, stool ob negative 04/12: labs reviewed, nc, tachy, ceftriaxone, no sob 04/13: lethargic, nc 3l, no acute distress, labs reviewed 04/14: Ca++ remains elev 13.2, De Amy aware, on calcitonin, on lovenox 04/15: no major changes, remains intubated, seen by cards, renal, pulm, dw Kellie, kcl ordered 04/16: tolerating meds well, no bleeding, on vent, is on simv mode, nicholas Pacheco Rn 04/17: icu, vent, h/h stable, no acute events, on cefepime 04/19: remains in icu and intubated, s/p blood, hgb 8.6, c diff negative 04/20: on bipap, hgb 8.6, no major changes, in icu, requires peg Objective Objective Current Medications Medications (Trade) Dose Ordered Sig/La Nena Route PRN Reason Start Time Stop Time Status Last Admin Dose Admin Acetylcysteine (Mucomyst) 200 mg Q4HRT N 04/18/19 11:00 05/18/19 10:59 04/20/19 10:40 Albuterol/ Ipratropium (Albuterol/ Ipratropium) 3 ml Q4HRT HHN 04/18/19 11:00 04/23/19 10:59 04/20/19 10:40 Cefepime HCl 1 gm/ Dextrose 55 ml @ 110 mls/hr DAILY IVPB 04/16/19 09:00 04/21/19 08:59 04/20/19 09:35 Chlorhexidine Gluconate (Martha-Hex 2%) 1 applic DAILY@2000 TOPIC 04/18/19 20:00 05/18/19 19:59 04/19/19 20:11 Dextrose 1,000 ml @ 50 mls/hr Q20H IV 04/18/19 13:00 05/18/19 12:59 04/20/19 05:50 Enoxaparin Sodium (Lovenox) 30 mg DAILY SUBQ 04/14/19 09:00 05/04/19 08:59 04/19/19 08:37 Heparin Sodium/ Sodium Chloride (Heparin 1000 units/500ml Premix) 1,000 unit ONCE PRN IV PICC PLACEMENT 04/18/19 11:00 04/20/19 23:59 Hydralazine HCl (Apresoline) 10 mg Q4H PRN IV SBP > 170mmHg 04/13/19 15:00 05/08/19 14:59 Lansoprazole (Prevacid) 30 mg DAILY ORAL 04/14/19 09:00 05/13/19 08:59 04/20/19 09:34 Lidocaine HCl (Xylocaine 1% 30ml) 30 ml ONCE PRN INJ PICC PLACEMENT 04/18/19 11:00 04/20/19 23:59 Lorazepam (Ativan 2mg/ml 1ml) 1 mg Q6H PRN IV For Anxiety 04/17/19 18:15 04/24/19 18:14 04/19/19 02:34 Memantine (Namenda) 5 mg BID ORAL 04/13/19 18:00 05/04/19 17:59 04/20/19 09:34 Morphine Sulfate (Morphine Sulfate) 1 mg Q4H PRN IVP PAIN 4-10 04/13/19 18:00 04/20/19 17:59 04/17/19 14:18 Norepinephrine Bitartrate 4 mg/ Dextrose 250 ml @ 0 mls/hr Q24H IV 04/13/19 17:00 05/13/19 16:59 04/14/19 22:57 Tamsulosin HCl (Flomax) 0.4 mg BEDTIME ORAL 04/13/19 21:00 05/13/19 20:59 04/19/19 20:46 Last 24 Hour Vital Signs Date Time Temp Pulse Resp B/P (MAP) Pulse Ox O2 Delivery O2 Flow Rate FiO2 04/20/19 11:00 112 29 117/69 (85) 100 04/20/19 10:43 108 25 100 111 25 100 04/20/19 10:30 110 29 118/69 (85) 99 04/20/19 10:00 3.0 04/20/19 10:00 108 20 123/75 (91) 100 04/20/19 09:30 108 28 112/70 (84) 99 04/20/19 09:00 114 28 110/74 (86) 98 04/20/19 08:30 103 16 103/68 (80) 100 04/20/19 08:00 50 04/20/19 08:00 102 04/20/19 08:00 Bi-pap 04/20/19 08:00 101 17 98/67 (77) 99 04/20/19 07:33 100 Bi-Pap 50 04/20/19 07:30 105 22 106/76 (86) 99 04/20/19 07:29 102 16 100 Bi-Pap 50 106 18 100 50 04/20/19 07:00 98.5 103 19 105/68 (80) 100 04/20/19 06:00 103 19 106/63 (77) 96 04/20/19 05:30 104 13 100 50 04/20/19 05:00 109 20 120/66 (84) 100 04/20/19 04:00 Mechanical Ventilator 04/20/19 04:00 112 04/20/19 04:00 98.1 108 16 103/65 (78) 100 04/20/19 04:00 50 04/20/19 03:32 109 14 100 Bi-Pap 50 111 17 100 50 04/20/19 03:00 113 24 110/67 (81) 100 04/20/19 02:00 106 17 101/63 (76) 100 04/20/19 01:00 107 21 101/65 (77) 99 04/20/19 01:00 108 14 97 100 04/20/19 00:00 50 04/20/19 00:00 106 04/20/19 00:00 Mechanical Ventilator 04/20/19 00:00 98.3 106 22 99/64 (76) 99 04/19/19 23:30 114 18 98 Bi-Pap 50 111 21 100 50 04/19/19 23:00 106 21 98/64 (75) 100 04/19/19 22:00 101 24 98/62 (74) 100 04/19/19 21:30 50 04/19/19 21:05 108 14 97 100 04/19/19 21:00 112 34 95/58 (70) 96 04/19/19 20:30 100 04/19/19 20:22 113 32 98 100 04/19/19 20:00 98.0 116 26 132/77 (95) 100 04/19/19 20:00 Venturi Mask 04/19/19 20:00 10.0 40 04/19/19 20:00 65 04/19/19 19:00 108 30 159/88 (111) 100 04/19/19 18:56 99 Cool Aerosol 12.0 40 04/19/19 18:54 117 31 100 Simple Mask 12.0 40 113 28 99 04/19/19 18:00 114 34 126/74 (91) 100 04/19/19 17:00 117 34 128/76 (93) 99 04/19/19 16:00 10.0 40 04/19/19 16:00 Mechanical Ventilator 04/19/19 16:00 98.2 125 33 142/80 (100) 100 04/19/19 16:00 121 04/19/19 15:00 123 28 145/89 (107) 100 04/19/19 14:55 120 30 100 Simple Mask 12.0 40 115 30 100 04/19/19 14:00 119 31 134/79 (97) 100 04/19/19 13:00 98.3 114 29 120/69 (86) 100 04/19/19 12:45 Simple Mask 12.0 40 04/19/19 12:00 40 04/19/19 12:00 113 32 120/72 (88) 100 04/19/19 12:00 Mechanical Ventilator 04/19/19 12:00 110 04/19/19 11:27 104 14 100 Mechanical Ventilator 50.0 40 102 10 40 04/19/19 11:00 106 15 109/70 (83) 100 04/19/19 10:00 108 15 106/66 (79) 100 04/19/19 09:03 115 33 40 04/19/19 09:00 114 37 121/79 (93) 100 04/19/19 08:45 100 04/19/19 08:00 Mechanical Ventilator 04/19/19 08:00 102 04/19/19 08:00 98.4 105 14 96/62 (73) 100 04/19/19 08:00 40 04/19/19 07:12 110 18 100 Mechanical Ventilator 50.0 40 105 10 40 04/19/19 07:00 105 18 102/70 (81) 100 04/19/19 06:00 98.4 104 14 89/57 (68) 100 04/19/19 05:06 103 21 40 04/19/19 05:00 105 15 102/65 (77) 100 04/19/19 04:30 103 15 100/65 (77) 100 04/19/19 04:00 40 04/19/19 04:00 Mechanical Ventilator 04/19/19 04:00 99.2 103 14 92/64 (73) 100 04/19/19 04:00 105 04/19/19 03:30 103 16 89/62 (71) 100 04/19/19 03:00 105 16 89/59 (69) 100 04/19/19 02:31 100 17 100 Mechanical Ventilator 40 100 17 40 04/19/19 02:30 105 27 106/73 (84) 100 04/19/19 02:00 102 14 104/67 (79) 100 04/19/19 01:32 110 19 124/76 (92) 100 04/19/19 01:00 109 16 111/73 (86) 100 04/19/19 01:00 108 20 40 04/19/19 00:00 110 04/19/19 00:00 Mechanical Ventilator 04/19/19 00:00 99.7 112 16 115/68 (84) 100 04/19/19 00:00 40 04/18/19 23:07 110 10 100 Mechanical Ventilator 40 110 10 40 04/18/19 23:00 102 13 100/67 (78) 100 04/18/19 22:00 103 13 104/66 (79) 100 04/18/19 21:30 105 14 98/62 (74) 100 04/18/19 21:08 114 17 40 04/18/19 21:00 107 14 134/72 (92) 100 04/18/19 20:30 106 14 95/66 (76) 100 04/18/19 20:00 Mechanical Ventilator 04/18/19 20:00 40 04/18/19 20:00 115 04/18/19 20:00 99.3 115 15 98/68 (78) 100 04/18/19 19:00 126 15 109/74 (86) 100 04/18/19 18:36 132 19 40 04/18/19 18:30 128 25 150/80 (103) 100 04/18/19 18:00 117 25 149/83 (105) 100 04/18/19 17:30 106 16 100/71 (81) 100 04/18/19 17:09 103 13 40 04/18/19 17:00 106 17 100/68 (79) 100 04/18/19 16:30 104 14 105/67 (80) 100 04/18/19 16:00 40 04/18/19 16:00 98.9 100 14 99/64 (76) 100 04/18/19 16:00 102 04/18/19 16:00 Mechanical Ventilator 04/18/19 15:12 102 12 100 Mechanical Ventilator 40 100 10 40 04/18/19 15:00 105 17 97/67 (77) 100 04/18/19 14:00 108 20 103/62 (76) 100 04/18/19 13:00 107 17 104/65 (78) 100 04/18/19 12:31 107 13 100 Mechanical Ventilator 50.0 40 04/18/19 12:30 107 12 40 04/18/19 12:00 40 04/18/19 12:00 Mechanical Ventilator 04/18/19 12:00 105 04/18/19 12:00 98.6 109 16 99/60 (73) 100 Intake and Output 04/19/19 04/20/19 19:00 07:00 Intake Total 1570 ml 935 ml Output Total 360 ml 520 ml Balance 1210 ml 415 ml Free Water 90 ml IV Total 985 ml 550 ml Tube Feeding 495 ml 385 ml Output Urine Total 360 ml 520 ml # Bowel Movements 1 Labs Test 04/18/19 05:55 04/18/19 10:02 04/19/19 09:10 04/19/19 12:29 White Blood Count 5.6 K/UL (4.8-10.8) 5.9 K/UL (4.8-10.8) Red Blood Count 2.56 M/UL (4.70-6.10) 2.99 M/UL (4.70-6.10) Hemoglobin 7.4 G/DL (14.2-18.0) 8.6 G/DL (14.2-18.0) Hematocrit 21.5 % (42.0-52.0) 25.5 % (42.0-52.0) Mean Corpuscular Volume 84 FL (80-99) 85 FL (80-99) Mean Corpuscular Hemoglobin 28.8 PG (27.0-31.0) 28.7 PG (27.0-31.0) Mean Corpuscular Hemoglobin Concent 34.1 G/DL (32.0-36.0) 33.7 G/DL (32.0-36.0) Red Cell Distribution Width 15.6 % (11.6-14.8) 14.7 % (11.6-14.8) Platelet Count 166 K/UL (150-450) 192 K/UL (150-450) Mean Platelet Volume 4.9 FL (6.5-10.1) 4.5 FL (6.5-10.1) Neutrophils (%) (Auto) % (45.0-75.0) 73.1 % (45.0-75.0) Lymphocytes (%) (Auto) % (20.0-45.0) 14.7 % (20.0-45.0) Monocytes (%) (Auto) % (1.0-10.0) 7.8 % (1.0-10.0) Eosinophils (%) (Auto) % (0.0-3.0) 3.6 % (0.0-3.0) Basophils (%) (Auto) % (0.0-2.0) 0.8 % (0.0-2.0) Differential Total Cells Counted 100 Neutrophils % (Manual) 79 % (45-75) Lymphocytes % (Manual) 10 % (20-45) Monocytes % (Manual) 7 % (1-10) Eosinophils % (Manual) 4 % (0-3) Basophils % (Manual) 0 % (0-2) Band Neutrophils 0 % (0-8) Platelet Estimate Adequate Platelet Morphology Normal Hypochromasia 3+ Anisocytosis 1+ Spherocytes 3+ Sodium Level 147 MMOL/L (136-145) 146 MMOL/L (136-145) Potassium Level 3.2 MMOL/L (3.5-5.1) 3.2 MMOL/L (3.5-5.1) Chloride Level 112 MMOL/L (98-107) 111 MMOL/L (98-107) Carbon Dioxide Level 31 MMOL/L (21-32) 28 MMOL/L (21-32) Anion Gap 4 mmol/L (5-15) 7 mmol/L (5-15) Blood Urea Nitrogen 22 mg/dL (7-18) 19 mg/dL (7-18) Creatinine 1.4 MG/DL (0.55-1.30) 1.4 MG/DL (0.55-1.30) Estimat Glomerular Filtration Rate > 60 mL/min (>60) > 60 mL/min (>60) Glucose Level 109 MG/DL (74-106) 113 MG/DL (74-106) Calcium Level 9.5 MG/DL (8.5-10.1) 9.2 MG/DL (8.5-10.1) Arterial Blood pH 7.397 (7.350-7.450) 7.370 (7.350-7.450) Arterial Blood Partial Pressure CO2 49.6 mmHg (35.0-45.0) 48.8 mmHg (35.0-45.0) Arterial Blood Partial Pressure O2 82.6 mmHg (75.0-100.0) 83.0 mmHg (75.0-100.0) Arterial Blood HCO3 29.8 mmol/L (22.0-26.0) 27.6 mmol/L (22.0-26.0) Arterial Blood Oxygen Saturation 95.7 % (95-100) 95.4 % (95-100) Arterial Blood Base Excess 4.4 (-2-2) 1.9 (-2-2) Antonio Test Positive Positive Phosphorus Level 2.1 MG/DL (2.5-4.9) Magnesium Level 1.4 MG/DL (1.8-2.4) Test 04/19/19 19:39 04/19/19 21:30 04/20/19 07:50 04/20/19 10:48 Arterial Blood pH 7.094 (7.350-7.450) 7.258 (7.350-7.450) 7.316 (7.350-7.450) Arterial Blood Partial Pressure CO2 91.8 mmHg (35.0-45.0) 63.9 mmHg (35.0-45.0) 52.4 mmHg (35.0-45.0) Arterial Blood Partial Pressure O2 57.7 mmHg (75.0-100.0) 379.5 mmHg (75.0-100.0) 93.1 mmHg (75.0-100.0) Arterial Blood HCO3 27.5 mmol/L (22.0-26.0) 27.9 mmol/L (22.0-26.0) 26.1 mmol/L (22.0-26.0) Arterial Blood Oxygen Saturation 83.1 % (95-100) 99.2 % (95-100) 96.3 % (95-100) Arterial Blood Base Excess -3.7 (-2-2) 0.1 (-2-2) -0.4 (-2-2) Antonio Test Positive Positive Positive Sodium Level 145 MMOL/L (136-145) Potassium Level 3.7 MMOL/L (3.5-5.1) Chloride Level 111 MMOL/L (98-107) Carbon Dioxide Level 28 MMOL/L (21-32) Anion Gap 6 mmol/L (5-15) Blood Urea Nitrogen 19 mg/dL (7-18) Creatinine 1.4 MG/DL (0.55-1.30) Estimat Glomerular Filtration Rate > 60 mL/min (>60) Glucose Level 110 MG/DL (74-106) Calcium Level 9.3 MG/DL (8.5-10.1) Height (Feet): 5 Height (Inches): 7.00 Weight (Pounds): 167 Objective General: normal inspection, alert, Chronically Ill Respiratory: dry breath sounds b/l, ++ bipap Cardiovascular: regular rate, rhythm, no edema Gastrointestinal: normal inspection, normal bowel sounds Genitourinary: no CVA tenderness Mus: normal inspection, back normal, normal range of motion Neurologic: alert, motor strength/tone normal, oriented + confused Psychiatric: normal inspection, judgement/insight normal Skin: no rash Andreas Monroy MD Apr 20, 2019 11:56
--- NOTE | 2019-04-20 12:00 | NUR ---
NURSE NOTES: LATE ENTRY: PT IN BED. ONE BM, LOOSE STOOL. PT CLEANED AND REPOSITIONED. HR 107, BP 102/67, RR 29, SATING 100%. PT EDUCATED ON BREATHING EXERCISE. TO DECREASE RATE OF BREATHING. RELEASE TRIAL FOR RESTRAINTS UNSUCCESSFUL, PT CONTINUES TO PULL AT NGT.
--- NOTE | 2019-04-20 14:00 | NUR ---
NURSE NOTES: MD SONG HERE TO SEE PT. NO NEW ORDERS AT THIS TIME.
--- NOTE | 2019-04-20 14:00 | Cardiac Electrophysiology PN ---
Assessment/Plan Assessment/Plan 1. Status post 2 non infarctional separate juan antonio arrest with asystole. Both episodes happened in the setting of respiratory failure and off the Vent No evidence of ventricular tachycardia or ventricular fibrillation. Off any GARCÍA or AVN olivia EF 65%. All 3 troponins were less than 0.1. Watch for recurrence of bradycardia 2. Recurrent Respiratory failure, extubated 04/08/19 and reintubated 04/13/19 and rextubated 04/19/19 3. History of stage III prostate cancer, followed by Dr. Monroy and Dr Root. Morales was changed. Follows up at [facility] 4. Shock. Off Levophed on iv Abx. 5. Hypercalcemia due to prostate cancer. 6. Hypernatremia. 7. Anemia, s/p PRBC 04/08/19. Hb 7 again. S/P1 unit PRBC 8. Low K. Replace DW RN Subjective Subjective Extubated yesterday in ICU. No juan antonio yet. Objective Last 24 Hour Vital Signs Date Time Temp Pulse Resp B/P (MAP) Pulse Ox O2 Delivery O2 Flow Rate FiO2 04/20/19 13:00 113 28 114/75 (88) 93 04/20/19 12:30 112 29 113/69 (84) 99 04/20/19 12:00 Nasal Cannula 3.0 04/20/19 12:00 104 04/20/19 12:00 98.6 107 29 109/68 (82) 100 04/20/19 12:00 3.0 04/20/19 11:00 112 29 117/69 (85) 100 04/20/19 10:43 108 25 100 111 25 100 04/20/19 10:30 110 29 118/69 (85) 99 04/20/19 10:00 3.0 04/20/19 10:00 108 20 123/75 (91) 100 04/20/19 09:30 108 28 112/70 (84) 99 04/20/19 09:00 114 28 110/74 (86) 98 04/20/19 08:30 103 16 103/68 (80) 100 04/20/19 08:00 50 04/20/19 08:00 102 04/20/19 08:00 Bi-pap 04/20/19 08:00 101 17 98/67 (77) 99 2/17/20 07:33 100 Bi-Pap 50 04/20/19 07:30 105 22 106/76 (86) 99 04/20/19 07:29 102 16 100 Bi-Pap 50 106 18 100 50 04/20/19 07:00 98.5 103 19 105/68 (80) 100 04/20/19 06:00 103 19 106/63 (77) 96 04/20/19 05:30 104 13 100 50 04/20/19 05:00 109 20 120/66 (84) 100 04/20/19 04:00 Mechanical Ventilator 04/20/19 04:00 112 04/20/19 04:00 98.1 108 16 103/65 (78) 100 04/20/19 04:00 50 04/20/19 03:32 109 14 100 Bi-Pap 50 111 17 100 50 04/20/19 03:00 113 24 110/67 (81) 100 04/20/19 02:00 106 17 101/63 (76) 100 04/20/19 01:00 107 21 101/65 (77) 99 04/20/19 01:00 108 14 97 100 04/20/19 00:00 50 04/20/19 00:00 106 04/20/19 00:00 Mechanical Ventilator 04/20/19 00:00 98.3 106 22 99/64 (76) 99 04/19/19 23:30 114 18 98 Bi-Pap 50 111 21 100 50 04/19/19 23:00 106 21 98/64 (75) 100 04/19/19 22:00 101 24 98/62 (74) 100 04/19/19 21:30 50 04/19/19 21:05 108 14 97 100 04/19/19 21:00 112 34 95/58 (70) 96 04/19/19 20:30 100 04/19/19 20:22 113 32 98 100 04/19/19 20:00 98.0 116 26 132/77 (95) 100 04/19/19 20:00 Venturi Mask 04/19/19 20:00 10.0 40 04/19/19 20:00 65 04/19/19 19:00 108 30 159/88 (111) 100 04/19/19 18:56 99 Cool Aerosol 12.0 40 04/19/19 18:54 117 31 100 Simple Mask 12.0 40 113 28 99 04/19/19 18:00 114 34 126/74 (91) 100 04/19/19 17:00 117 34 128/76 (93) 99 04/19/19 16:00 10.0 40 04/19/19 16:00 Mechanical Ventilator 04/19/19 16:00 98.2 125 33 142/80 (100) 100 04/19/19 16:00 121 04/19/19 15:00 123 28 145/89 (107) 100 04/19/19 14:55 120 30 100 Simple Mask 12.0 40 115 30 100 04/19/19 14:00 119 31 134/79 (97) 100 Intake and Output 04/19/19 04/20/19 19:00 07:00 Intake Total 1570 ml 935 ml Output Total 360 ml 520 ml Balance 1210 ml 415 ml Free Water 90 ml IV Total 985 ml 550 ml Tube Feeding 495 ml 385 ml Output Urine Total 360 ml 520 ml # Bowel Movements 1 Laboratory Tests Test 04/19/19 19:39 04/19/19 21:30 04/20/19 07:50 04/20/19 10:48 Arterial Blood pH 7.094 (7.350-7.450) 7.258 (7.350-7.450) 7.316 (7.350-7.450) Arterial Blood Partial Pressure CO2 91.8 mmHg (35.0-45.0) *H 63.9 mmHg (35.0-45.0) *H 52.4 mmHg (35.0-45.0) H Arterial Blood Partial Pressure O2 57.7 mmHg (75.0-100.0) L 379.5 mmHg (75.0-100.0) H 93.1 mmHg (75.0-100.0) Arterial Blood HCO3 27.5 mmol/L (22.0-26.0) H 27.9 mmol/L (22.0-26.0) H 26.1 mmol/L (22.0-26.0) H Arterial Blood Oxygen Saturation 83.1 % (95-100) *L 99.2 % (95-100) 96.3 % (95-100) Arterial Blood Base Excess -3.7 (-2-2) L 0.1 (-2-2) -0.4 (-2-2) Antonio Test Positive Positive Positive Sodium Level 145 MMOL/L (136-145) Potassium Level 3.7 MMOL/L (3.5-5.1) Chloride Level 111 MMOL/L (98-107) H Carbon Dioxide Level 28 MMOL/L (21-32) Anion Gap 6 mmol/L (5-15) Blood Urea Nitrogen 19 mg/dL (7-18) H Creatinine 1.4 MG/DL (0.55-1.30) H Estimat Glomerular Filtration Rate > 60 mL/min (>60) Glucose Level 110 MG/DL (74-106) H Calcium Level 9.3 MG/DL (8.5-10.1) Microbiology Date/Time Source Procedure Growth Status 04/18/19 17:00 Stool Clostridium difficile Toxin Assay - Final Complete Objective HEENT: No JVD. LUNGS: Coarse rhonchi. CARDIOVASCULAR: Regular S1 and S2 ABDOMEN: Soft and nondistended. EXTREMITIES: No pitting edema. Nain Cortez MD Apr 20, 2019 14:00
--- NOTE | 2019-04-20 15:36 | NUR ---
NURSE NOTES: MD GUERRERO HERE TO SEE PT. INFORMED OF LAST BG 209, INFORMED THAT NOVOLOG 10UNITS, LEVEMIR 20UNITS STANDARD. WANTS BMP IN AM. D/C MAINTENANCE FLUIDS. Addendum: 04/20/19 at 1538 by Kellie Cheung RN WRONG PT.
--- NOTE | 2019-04-20 16:27 | NUR ---
NURSE NOTES: FAMILY AT BEDSIDE. PT VS 114/71, HR 108. PT IN NO ACUTE DISTRESS. PHONE IN BELONGINGS BAG. NO NEUROPHYSIOLOGICAL TECHNICIAN FOUND. DAUGHTER WILL BRING ONE WHEN SHE RETURNS IN P.M.
--- NOTE | 2019-04-20 17:00 | NUR ---
NURSE NOTES: called MD Mathews for CPT orders. pt unable to expectorate sputum. RR 30's . awaiting call back.
--- NOTE | 2019-04-20 17:04 | NUR ---
NURSE NOTES: Received call back from MD Mathews. read back ABG from this am. Requested CPT. Received order for PRN BIPAP, BIPAP tonight, ABG'S in A.M, CXR.
--- NOTE | 2019-04-20 18:30 | NUR ---
NURSE NOTES: iv infiltration on LT FA. replaced RT FA AND WRIST 22G AND 20G RUNNING D5W AT 50ML/HR. REAPPLIED RESTRAINTS, PT NON COMPLIANT AND PULLING AT DRESSINGS.
--- NOTE | 2019-04-20 19:15 | Progress Note ---
DATE: 04/03/2019 SUBJECTIVE: This is a 73-year-old male patient with generalized weakness and dehydration and this patient also has anemia, urinary tract infection, coffee-ground emesis, stage III adenocarcinoma of the prostate, status post cardiac arrest. This patient continues to have some mood lability and psychomotor agitation worsened by stress of his medical illness. That is why, his attending has requested daily psychiatric consultation. MENTAL STATUS EXAMINATION: This is a 73-year-old male. Appearance is disheveled. Attitude, irritable and agitated. Affect, guarded and restricted. Intellect poor. Mood, depressed and anxious. Motor activity, psychomotor agitation. Attention span is poor. Orientation x2. Speech is pressured. Thought process, disorganized and illogical. Insight and judgment is poor. DIAGNOSIS: Major depressive disorder, mild, recurrent with psychotic features, rule out dementia with psychosis. PLAN: Plan for this patient is to treat him with medication regimen of Namenda 5 mg twice a day to prevent any further decline in cognition and also 20 minutes of cognitive behavioral therapy to help him identify automatic negative thoughts and convert his negative thoughts to more positive thoughts to reduce depression, anxiety, mood lability. I saw and assessed this patient in the ICU. He still has a lot of psychomotor agitation, confusion. Continue to be followed by Psychiatry throughout hospital course. Chart reviewed. Discussed with staff. Cherise Palma M.D. DR: CHIARA JOB#: [id number] CC:
--- NOTE | 2019-04-20 19:20 | NUR ---
HAND-OFF: Report given to DIEGO Arroyo PT IN NO ACUTE DISTRESS.
--- NOTE | 2019-04-20 19:21 | NUR ---
NURSE NOTES: Received patient from BLANCA Hopkins. Will continue plan of care.
[2019-04-20] MEDS: Dyna-Hex 2% Top Sol 2oz TOPIC SCH (20:00)
--- NOTE | 2019-04-20 20:00 | NUR ---
NURSE NOTES: Patient is awake, alert and oriented x2. Receiving breathing treatment and CPT done by RT. On 3L nasal cannula O2 saturating at 100%. Patient has non-productive cough. On feeding of Vital AF @ 55ml/hr via NGT. Morales catheter in place and draining, secured on left thigh per Dr. Root. Right upper forearm 22g IV running D5W @ 50ml/hr. Daughter Amy called for updates. Safety measures in place; bed low, locked and alarm is activated. Will continue to monitor.
[2019-04-20] MEDS: Tamsulosin 0.4mg cap ORAL SCH (20:37)
--- NOTE | 2019-04-20 20:57 | General Progress Note ---
Assessment/Plan Problem List: (1) UTI (urinary tract infection) ICD Codes: N39.0 - Urinary tract infection, site not specified SNOMED: 75141200 (2) Weak ICD Codes: R53.1 - Weakness SNOMED: 44687354 (3) Anemia ICD Codes: D64.9 - Anemia, unspecified SNOMED: 009357491 (4) Dehydration ICD Codes: E86.0 - Dehydration SNOMED: 69546148, 39336899 (5) Episode of generalized weakness ICD Codes: R53.1 - Weakness SNOMED: 97440657 (6) Stage III adenocarcinoma of prostate ICD Codes: C61 - Malignant neoplasm of prostate SNOMED: 871922674, 61389390 Status: unchanged Assessment/Plan: uti nac vitals stable abormal lytes check h/h lytes? resp insuff afebrile Subjective ROS Limited/Unobtainable: Yes Allergies: Coded Allergies: No Known Allergies (Unverified , 04/03/19) Objective Last 24 Hour Vital Signs Date Time Temp Pulse Resp B/P (MAP) Pulse Ox O2 Delivery O2 Flow Rate FiO2 04/20/19 19:45 116 27 100 Nasal Cannula 3.0 32 04/20/19 19:30 110 25 100 Nasal Cannula 3.0 32 04/20/19 19:30 100 Nasal Cannula 3.0 32 04/20/19 19:00 81 160/90 (113) 93 04/20/19 18:00 102 18 108/73 (85) 100 04/20/19 17:00 109 34 109/67 (81) 100 04/20/19 16:00 Nasal Cannula 3.0 04/20/19 16:00 115 04/20/19 16:00 3.0 04/20/19 16:00 98.9 112 30 114/71 (85) 100 04/20/19 15:31 112 22 100 109 22 100 04/20/19 15:30 109 28 123/77 (92) 98 04/20/19 15:00 111 31 113/69 (84) 100 04/20/19 14:00 112 30 120/73 (89) 97 04/20/19 13:00 113 28 114/75 (88) 93 04/20/19 12:30 112 29 113/69 (84) 99 04/20/19 12:00 Nasal Cannula 3.0 04/20/19 12:00 104 04/20/19 12:00 98.6 107 29 109/68 (82) 100 04/20/19 12:00 3.0 04/20/19 11:00 112 29 117/69 (85) 100 04/20/19 10:43 108 25 100 111 25 100 04/20/19 10:30 110 29 118/69 (85) 99 04/20/19 10:00 3.0 04/20/19 10:00 108 20 123/75 (91) 100 04/20/19 09:30 108 28 112/70 (84) 99 04/20/19 09:00 114 28 110/74 (86) 98 04/20/19 08:30 103 16 103/68 (80) 100 04/20/19 08:00 50 04/20/19 08:00 102 04/20/19 08:00 Bi-pap 04/20/19 08:00 101 17 98/67 (77) 99 04/20/19 07:33 100 Bi-Pap 50 04/20/19 07:30 105 22 106/76 (86) 99 04/20/19 07:29 102 16 100 Bi-Pap 50 106 18 100 50 04/20/19 07:00 98.5 103 19 105/68 (80) 100 04/20/19 06:00 103 19 106/63 (77) 96 04/20/19 05:30 104 13 100 50 04/20/19 05:00 109 20 120/66 (84) 100 04/20/19 04:00 Mechanical Ventilator 04/20/19 04:00 112 04/20/19 04:00 98.1 108 16 103/65 (78) 100 04/20/19 04:00 50 04/20/19 03:32 109 14 100 Bi-Pap 50 111 17 100 50 04/20/19 03:00 113 24 110/67 (81) 100 04/20/19 02:00 106 17 101/63 (76) 100 04/20/19 01:00 107 21 101/65 (77) 99 04/20/19 01:00 108 14 97 100 04/20/19 00:00 50 04/20/19 00:00 106 04/20/19 00:00 Mechanical Ventilator 04/20/19 00:00 98.3 106 22 99/64 (76) 99 04/19/19 23:30 114 18 98 Bi-Pap 50 111 21 100 50 04/19/19 23:00 106 21 98/64 (75) 100 04/19/19 22:00 101 24 98/62 (74) 100 04/19/19 21:30 50 04/19/19 21:05 108 14 97 100 04/19/19 21:00 112 34 95/58 (70) 96 Intake and Output 04/19/19 04/20/19 19:00 07:00 Intake Total 1570 ml 935 ml Output Total 360 ml 520 ml Balance 1210 ml 415 ml Free Water 90 ml IV Total 985 ml 550 ml Tube Feeding 495 ml 385 ml Output Urine Total 360 ml 520 ml # Bowel Movements 1 Laboratory Tests 04/19/19 21:30: Arterial Blood pH 7.258L, Arterial Blood Partial Pressure CO2 63.9*H, Arterial Blood Partial Pressure O2 379.5H, Arterial Blood HCO3 27.9H, Arterial Blood Oxygen Saturation 99.2, Arterial Blood Base Excess 0.1, Antonio Test Positive 04/20/19 07:50: Sodium Level 145, Potassium Level 3.7, Chloride Level 111H, Carbon Dioxide Level 28, Anion Gap 6, Blood Urea Nitrogen 19H, Creatinine 1.4H, Estimat Glomerular Filtration Rate > 60, Glucose Level 110H, Calcium Level 9.3 04/20/19 10:48: Arterial Blood pH 7.316L, Arterial Blood Partial Pressure CO2 52.4H, Arterial Blood Partial Pressure O2 93.1, Arterial Blood HCO3 26.1H, Arterial Blood Oxygen Saturation 96.3, Arterial Blood Base Excess -0.4, Antonio Test Positive Height (Feet): 5 Height (Inches): 7.00 Weight (Pounds): 167 Neck: supple Cardiovascular: normal rate Respiratory/Chest: lungs clear Shay Oreilly MD Apr 20, 2019 20:57
--- NOTE | 2019-04-20 22:00 | NUR ---
NURSE NOTES: Patient states he wants to get up and leave. Seen trying to pull out NGT. WAVE SOLDER OFFBEARER in place and skin assess. Turned and repositioned. All needs are met. Safety measures in place; bed low, locked and alarm is activated. Will continue to monitor.
--- NOTE | 2019-04-20 23:11 | NUR ---
RESPIRATORY NOTE: Pt placed on BiPAP for nightly use. Pt now on BiPAP 18/5, back up rate 14, 30%. Pt on a Facial mask, skin intact, no redness/breakdowns noted. Foam tape applied on pt's nosebridge/cheeks/chin to prevent mask irritations. Pt alert/awake, follows commands. B/S cleopatra. rales/rhonchi, nonproductive cough. BiPAP plugged into red outlet, alarms on & audible. Pt in no apparent distress at this time. Will continue to monitor pt.
[2019-04-21] VITALS (25 sets, daily range): BP systolic 95–125; BP diastolic 63–87
--- NOTE | 2019-04-21 | NUR ---
NURSE NOTES: Patient request for breathing treatment. Scheduled Albuterol given by RT. Also patient placed on BiPAP 18/5 30% O2 saturating at 99%. Turned and repositioned. Safety measures in place.
--- NOTE | 2019-04-21 00:36 | NUR ---
NURSE NOTES: Patient refuses BiPAP now. Continuously saying he does not want it and to removed. Attempted to convince him to keep it on for a little while longer, continues to refuses trying to pull off. Now put back on nasal cannula at 3L. O2 saturating at 100%
--- NOTE | 2019-04-21 02:00 | NUR ---
NURSE NOTES: Convinced patient to be put back onto BiPAP 18/5 30%, explained to him his situation and the benefit of the BiPAP, he agreed. No sleeping comfortably. O2 saturating at 100%. Will continue to monitor.
[2019-04-21] MEDS: Acetylcysteine 20% Soln 4ml HHN SCH ×6 (03:07→23:00)
[2019-04-21] MEDS: Albuterol/Ipratropium 3ml neb HHN SCH ×6 (03:07→23:00)
--- NOTE | 2019-04-21 04:00 | NUR ---
NURSE NOTES: Vital signs stable. Patient remains complaint with the BiPAP, settings remains the same. O2 saturating at 100%. Turned and repositioned. Safety measures in place. Will continue to monitor.
--- NOTE | 2019-04-21 05:19 | NUR ---
NURSE NOTES: Morales catheter just started draining pink colored urine. 5ml as of now. Yellow clear urine prior to this. Will endorse.
[2019-04-21 05:37] LABS: BASOPHILS % (AUTO) 0.8 % (0.0-2.0); EOSINOPHILS % (AUTO) 4.3 % (0.0-3.0); HEMATOCRIT 25.9 % (42.0-52.0); LYMPHOCYTES % (AUTO) 13.6 % (20.0-45.0); MEAN CORPUSCULAR VOLUME 84 FL (80-99); MONOCYTES % (AUTO) 9.5 % (1.0-10.0); NEUTROPHILS % (AUTO) 71.7 % (45.0-75.0); PLATELET COUNT 230 K/UL (150-450); RED BLOOD COUNT 3.07 M/UL (4.70-6.10); WHITE BLOOD COUNT 5.8 K/UL (4.8-10.8)
[2019-04-21 05:53] LABS: ANION GAP 7 mmol/L (5-15); BLOOD UREA NITROGEN 19 mg/dL (7-18); CALCIUM 8.8 MG/DL (8.5-10.1); CARBON DIOXIDE 28 MMOL/L (21-32); CHLORIDE 109 MMOL/L (98-107); CREATININE 1.5 MG/DL (0.55-1.30); POTASSIUM 3.2 MMOL/L (3.5-5.1); SODIUM 144 MMOL/L (136-145)
--- NOTE | 2019-04-21 06:00 | NUR ---
NURSE NOTES: Dr. Torrez came to see and assess patient. Informed him of the pink tinted urine. H&H is better than previous day. He advise to irrigate guerra for now and to monitor. Bed bath given, linens changes, oral care provided, turned and repositioned. Placed back onto 2L nasal cannula and O2 saturating at 100%. Safety measures in place.
--- NOTE | 2019-04-21 06:44 | NUR ---
RESPIRATORY NOTE: Breathing Tx given without Mucomyst 20% due to unavailable med in the pyxis, check med in [facility] but it's not available either. RN Siria made aware. Pt is awake, alert and no SOB or resp ditress noted. Will give MM when it's available.
--- NOTE | 2019-04-21 06:48 | Hematology/Onc Progress Note ---
Assessment/Plan Assessment/Plan # Prostate cancer stage IV with psa >700, cr is worse, hydronephrosis noted, seen by renal, Dr. White. --> i did received records from [facility], [place]. has regional lymphadenopathy, s/p transrectal biopsy with Gleasons 5+5 (2010) in all cores, apparently has had a 3 year course of androgen deprivation from 2011- 2014.also status post RADIATION to the prostate, then lost to followup. Following surviellance psa 0.45-->65, in 10/2016, and up to 127 in 12/2016, Ct scan showed recurrence of disease with lad but no bony mets, started on lupron 01/2017, psa fell yo 73-->46, has been sarted on zytiga + prednisone, and now psa progression on zytiga, he started xtandi in 01/2019 Psa 87. He did not go through urethral stenting, he has deferred treatment with chemo. --> He is a very poor historian, I have talked to the sister --> imaging has been noted --> as per urology recs, reviewed --> have called , no answer, trans to [facility]? --> poor prognosis given above history of treatment, defer transfer to [facility] --> psa 737-->757 --> CT ABD 04/10: Evidence of advanced metastatic neoplasm likely secondary to prostate carcinoma. Extensive retroperitoneal and pelvic lymphadenopathy complicated by presence of bilateral hydroureteronephrosis. Extensive metastatic disease involving the bones also noted. Status post seed implant radiation therapy to the prostate gland. # Hypercalcemia -- now acutely worse --> trend Ca++ 8.1-->13-->12-->10.3-->10.7-->13.2 -->11-->10.5 --> ivf has been started --> as per nephrology --> calcitonin was given # Anemia due to underlying malignancy --> hgb trend as needed 9.2-->7-->10.9-->11-->9.7-->8.1-->8.6 --> no hemolysis is noted --> no bleeding --> blood tx: 04/18, # Episode of generalized weakness --> on ivf --> pt as needed # Hypokalemia --> replete prn # Dehydration --> on ivf # Atrophic changes without evident intracranial hemorrhage. --> as per neuro, remains confused # Respiratory failure s/p vent now ext --> on bipap++ # Hypernatremia as well as low BUN --> on ivf # Poor prognosis # Dvt ppx lovenox sq Appreciate consultation and Nicholas Rn Subjective HEENT: Denies: no symptoms, eye pain, blurred vision, tearing, double vision, ear pain, ear discharge, nose pain, nose congestion, throat pain, throat swelling, mouth pain, mouth swelling, other Cardiovascular: Denies: no symptoms, chest pain, edema, irregular heart rate, lightheadedness, palpitations, syncope, other Respiratory: Denies: no symptoms, cough, shortness of breath, SOB with excertion, SOB at rest, sputum, wheezing, other Gastrointestinal/Abdominal: Denies: no symptoms, abdomen distended, abdominal pain, black stools, tarry stools, blood in stool, constipated, diarrhea, difficulty swallowing, nausea, poor appetite, poor fluid intake, rectal bleeding , vomiting, other Genitourinary: Denies: no symptoms, burning, discharge, frequency, flank pain, hematuria, incontinence, pain, urgency, other Neurologic/Psychiatric: Denies: no symptoms, anxiety, depressed, emotional problems, headache, numbness, paresthesia, pre-existing deficit, seizure, tingling, tremors, weakness, other Endocrine: Denies: no symptoms, excessive sweating, flushing, intolerance to cold, intolerance to heat, increased hunger, increased thirst, increased urine, unexplained weight gain, unexplained weight loss, other Allergies: Coded Allergies: No Known Allergies (Unverified , 04/03/19) Subjective 2/3: no events, apparently intubated today and transferred to the icu, will dw family 2: remains in the icu, critically ill, Ca++ 12, on vent, minimally responsive , on dopa, dw pcp and pulm 04/08: no major changes, no night sweats, labs have been reviewed, dw daughter, he is more alert 04/10: awake, no acute events ct abd reviewed, stool ob negative 04/12: labs reviewed, nc, tachy, ceftriaxone, no sob 04/13: lethargic, nc 3l, no acute distress, labs reviewed 04/14: Ca++ remains elev 13.2, De Amy aware, on calcitonin, on lovenox 04/15: no major changes, remains intubated, seen by cards, renal, pulm, dw Kellie, kcl ordered 04/16: tolerating meds well, no bleeding, on vent, is on simv mode, nicholas Pacheco Rn 04/17: icu, vent, h/h stable, no acute events, on cefepime 04/19: remains in icu and intubated, s/p blood, hgb 8.6, c diff negative 04/20: on bipap, hgb 8.6, no major changes, in icu, requires peg 04/21: urine is red tinged this am, of vent, with nc, no bleeding, labs noted Objective Objective Current Medications Medications (Trade) Dose Ordered Sig/La Nena Route PRN Reason Start Time Stop Time Status Last Admin Dose Admin Acetylcysteine (Mucomyst) 200 mg Q4HRT HHN 04/18/19 11:00 05/18/19 10:59 04/21/19 03:07 Albuterol/ Ipratropium (Albuterol/ Ipratropium) 3 ml Q4HRT HHN 04/18/19 11:00 04/23/19 10:59 04/21/19 06:44 Cefepime HCl 1 gm/ Dextrose 55 ml @ 110 mls/hr DAILY IVPB 04/16/19 09:00 04/21/19 08:59 04/20/19 09:35 Chlorhexidine Gluconate (Martha-Hex 2%) 1 applic DAILY@2000 TOPIC 04/18/19 20:00 05/18/19 19:59 04/19/19 20:11 Dextrose 1,000 ml @ 50 mls/hr Q20H IV 04/18/19 13:00 05/18/19 12:59 04/21/19 00:17 Enoxaparin Sodium (Lovenox) 30 mg DAILY SUBQ 04/14/19 09:00 05/04/19 08:59 04/19/19 08:37 Hydralazine HCl (Apresoline) 10 mg Q4H PRN IV SBP > 170mmHg 04/13/19 15:00 05/08/19 14:59 Lansoprazole (Prevacid) 30 mg DAILY ORAL 04/14/19 09:00 05/13/19 08:59 04/20/19 09:34 Lorazepam (Ativan 2mg/ml 1ml) 1 mg Q6H PRN IV For Anxiety 04/17/19 18:15 04/24/19 18:14 04/19/19 02:34 Memantine (Namenda) 5 mg BID ORAL 04/13/19 18:00 05/04/19 17:59 04/20/19 17:34 Norepinephrine Bitartrate 4 mg/ Dextrose 250 ml @ 0 mls/hr Q24H IV 04/13/19 17:00 05/13/19 16:59 04/14/19 22:57 Tamsulosin HCl (Flomax) 0.4 mg BEDTIME ORAL 04/13/19 21:00 05/13/19 20:59 04/20/19 20:37 Last 24 Hour Vital Signs Date Time Temp Pulse Resp B/P (MAP) Pulse Ox O2 Delivery O2 Flow Rate FiO2 04/21/19 06:00 109 26 117/75 (89) 100 04/21/19 05:00 111 22 105/70 (82) 99 04/21/19 04:00 Mechanical Ventilator 04/21/19 04:00 98.0 108 22 110/68 (82) 96 04/21/19 04:00 30 04/21/19 03:22 110 27 100 Bi-Pap 30 04/21/19 03:07 110 25 100 Bi-Pap 30 04/21/19 03:06 110 25 100 30 04/21/19 03:06 110 04/21/19 03:00 110 26 120/74 (89) 90 04/21/19 02:00 110 26 95/63 (74) 99 04/21/19 01:00 112 25 108/69 (82) 99 04/21/19 00:56 120 25 98 30 04/21/19 00:00 30 04/21/19 00:00 Mechanical Ventilator 04/21/19 00:00 98.9 110 26 97/67 (77) 100 04/20/19 23:28 118 31 99 Bi-Pap 30 04/20/19 23:26 110 04/20/19 23:08 117 30 99 Bi-Pap 30 04/20/19 23:02 117 30 99 30 04/20/19 23:00 117 29 126/75 (92) 100 04/20/19 22:00 116 29 107/62 (77) 100 04/20/19 21:00 123 21 132/63 (86) 100 04/20/19 20:00 Mechanical Ventilator 04/20/19 20:00 98.4 114 29 105/69 (81) 100 04/20/19 20:00 3.0 04/20/19 19:45 116 27 100 Nasal Cannula 3.0 32 04/20/19 19:32 117 04/20/19 19:30 110 25 100 Nasal Cannula 3.0 32 04/20/19 19:30 100 Nasal Cannula 3.0 32 04/20/19 19:00 81 160/90 (113) 93 04/20/19 18:00 102 18 108/73 (85) 100 04/20/19 17:00 109 34 109/67 (81) 100 04/20/19 16:00 Nasal Cannula 3.0 04/20/19 16:00 115 04/20/19 16:00 3.0 04/20/19 16:00 98.9 112 30 114/71 (85) 100 04/20/19 15:31 112 22 100 109 22 100 04/20/19 15:30 109 28 123/77 (92) 98 04/20/19 15:00 111 31 113/69 (84) 100 04/20/19 14:00 112 30 120/73 (89) 97 04/20/19 13:00 113 28 114/75 (88) 93 04/20/19 12:30 112 29 113/69 (84) 99 04/20/19 12:00 Nasal Cannula 3.0 04/20/19 12:00 104 04/20/19 12:00 98.6 107 29 109/68 (82) 100 04/20/19 12:00 3.0 04/20/19 11:00 112 29 117/69 (85) 100 04/20/19 10:43 108 25 100 111 25 100 04/20/19 10:30 110 29 118/69 (85) 99 04/20/19 10:00 3.0 04/20/19 10:00 108 20 123/75 (91) 100 04/20/19 09:30 108 28 112/70 (84) 99 2/17/20 09:00 114 28 110/74 (86) 98 04/20/19 08:30 103 16 103/68 (80) 100 04/20/19 08:00 50 04/20/19 08:00 102 04/20/19 08:00 Bi-pap 04/20/19 08:00 101 17 98/67 (77) 99 04/20/19 07:33 100 Bi-Pap 50 04/20/19 07:30 105 22 106/76 (86) 99 04/20/19 07:29 102 16 100 Bi-Pap 50 106 18 100 50 04/20/19 07:00 98.5 103 19 105/68 (80) 100 04/20/19 06:00 103 19 106/63 (77) 96 04/20/19 05:30 104 13 100 50 04/20/19 05:00 109 20 120/66 (84) 100 04/20/19 04:00 Mechanical Ventilator 04/20/19 04:00 112 04/20/19 04:00 98.1 108 16 103/65 (78) 100 04/20/19 04:00 50 04/20/19 03:32 109 14 100 Bi-Pap 50 111 17 100 50 04/20/19 03:00 113 24 110/67 (81) 100 04/20/19 02:00 106 17 101/63 (76) 100 04/20/19 01:00 107 21 101/65 (77) 99 04/20/19 01:00 108 14 97 100 04/20/19 00:00 50 04/20/19 00:00 106 04/20/19 00:00 Mechanical Ventilator 04/20/19 00:00 98.3 106 22 99/64 (76) 99 04/19/19 23:30 114 18 98 Bi-Pap 50 111 21 100 50 04/19/19 23:00 106 21 98/64 (75) 100 04/19/19 22:00 101 24 98/62 (74) 100 04/19/19 21:30 50 04/19/19 21:05 108 14 97 100 04/19/19 21:00 112 34 95/58 (70) 96 04/19/19 20:30 100 04/19/19 20:22 113 32 98 100 04/19/19 20:00 98.0 116 26 132/77 (95) 100 04/19/19 20:00 Venturi Mask 04/19/19 20:00 10.0 40 04/19/19 20:00 65 04/19/19 19:00 108 30 159/88 (111) 100 04/19/19 18:56 99 Cool Aerosol 12.0 40 04/19/19 18:54 117 31 100 Simple Mask 12.0 40 113 28 99 04/19/19 18:00 114 34 126/74 (91) 100 04/19/19 17:00 117 34 128/76 (93) 99 04/19/19 16:00 10.0 40 04/19/19 16:00 Mechanical Ventilator 04/19/19 16:00 98.2 125 33 142/80 (100) 100 04/19/19 16:00 121 04/19/19 15:00 123 28 145/89 (107) 100 04/19/19 14:55 120 30 100 Simple Mask 12.0 40 115 30 100 04/19/19 14:00 119 31 134/79 (97) 100 04/19/19 13:00 98.3 114 29 120/69 (86) 100 04/19/19 12:45 Simple Mask 12.0 40 04/19/19 12:00 40 04/19/19 12:00 113 32 120/72 (88) 100 04/19/19 12:00 Mechanical Ventilator 04/19/19 12:00 110 04/19/19 11:27 104 14 100 Mechanical Ventilator 50.0 40 102 10 40 04/19/19 11:00 106 15 109/70 (83) 100 04/19/19 10:00 108 15 106/66 (79) 100 04/19/19 09:03 115 33 40 04/19/19 09:00 114 37 121/79 (93) 100 04/19/19 08:45 100 04/19/19 08:00 Mechanical Ventilator 04/19/19 08:00 102 04/19/19 08:00 98.4 105 14 96/62 (73) 100 04/19/19 08:00 40 04/19/19 07:12 110 18 100 Mechanical Ventilator 50.0 40 105 10 40 04/19/19 07:00 105 18 102/70 (81) 100 Intake and Output 04/20/19 04/21/19 19:00 07:00 Intake Total 655 ml 595.8 ml Output Total 430 ml 650 ml Balance 225 ml -54.2 ml IV Total 50 ml 535.8 ml Tube Feeding 605 ml Other 60 ml Output Urine Total 430 ml 650 ml # Bowel Movements 4 4 Labs Test 04/18/19 10:02 04/19/19 09:10 04/19/19 12:29 04/19/19 19:39 Arterial Blood pH 7.397 (7.350-7.450) 7.370 (7.350-7.450) 7.094 (7.350-7.450) Arterial Blood Partial Pressure CO2 49.6 mmHg (35.0-45.0) 48.8 mmHg (35.0-45.0) 91.8 mmHg (35.0-45.0) Arterial Blood Partial Pressure O2 82.6 mmHg (75.0-100.0) 83.0 mmHg (75.0-100.0) 57.7 mmHg (75.0-100.0) Arterial Blood HCO3 29.8 mmol/L (22.0-26.0) 27.6 mmol/L (22.0-26.0) 27.5 mmol/L (22.0-26.0) Arterial Blood Oxygen Saturation 95.7 % (95-100) 95.4 % (95-100) 83.1 % (95-100) Arterial Blood Base Excess 4.4 (-2-2) 1.9 (-2-2) -3.7 (-2-2) Antonio Test Positive Positive Positive White Blood Count 5.9 K/UL (4.8-10.8) Red Blood Count 2.99 M/UL (4.70-6.10) Hemoglobin 8.6 G/DL (14.2-18.0) Hematocrit 25.5 % (42.0-52.0) Mean Corpuscular Volume 85 FL (80-99) Mean Corpuscular Hemoglobin 28.7 PG (27.0-31.0) Mean Corpuscular Hemoglobin Concent 33.7 G/DL (32.0-36.0) Red Cell Distribution Width 14.7 % (11.6-14.8) Platelet Count 192 K/UL (150-450) Mean Platelet Volume 4.5 FL (6.5-10.1) Neutrophils (%) (Auto) 73.1 % (45.0-75.0) Lymphocytes (%) (Auto) 14.7 % (20.0-45.0) Monocytes (%) (Auto) 7.8 % (1.0-10.0) Eosinophils (%) (Auto) 3.6 % (0.0-3.0) Basophils (%) (Auto) 0.8 % (0.0-2.0) Sodium Level 146 MMOL/L (136-145) Potassium Level 3.2 MMOL/L (3.5-5.1) Chloride Level 111 MMOL/L (98-107) Carbon Dioxide Level 28 MMOL/L (21-32) Anion Gap 7 mmol/L (5-15) Blood Urea Nitrogen 19 mg/dL (7-18) Creatinine 1.4 MG/DL (0.55-1.30) Estimat Glomerular Filtration Rate > 60 mL/min (>60) Glucose Level 113 MG/DL (74-106) Calcium Level 9.2 MG/DL (8.5-10.1) Phosphorus Level 2.1 MG/DL (2.5-4.9) Magnesium Level 1.4 MG/DL (1.8-2.4) Test 04/19/19 21:30 04/20/19 07:50 04/20/19 10:48 04/21/19 04:55 Arterial Blood pH 7.258 (7.350-7.450) 7.316 (7.350-7.450) Arterial Blood Partial Pressure CO2 63.9 mmHg (35.0-45.0) 52.4 mmHg (35.0-45.0) Arterial Blood Partial Pressure O2 379.5 mmHg (75.0-100.0) 93.1 mmHg (75.0-100.0) Arterial Blood HCO3 27.9 mmol/L (22.0-26.0) 26.1 mmol/L (22.0-26.0) Arterial Blood Oxygen Saturation 99.2 % (95-100) 96.3 % (95-100) Arterial Blood Base Excess 0.1 (-2-2) -0.4 (-2-2) Antonio Test Positive Positive Sodium Level 145 MMOL/L (136-145) 144 MMOL/L (136-145) Potassium Level 3.7 MMOL/L (3.5-5.1) 3.2 MMOL/L (3.5-5.1) Chloride Level 111 MMOL/L (98-107) 109 MMOL/L (98-107) Carbon Dioxide Level 28 MMOL/L (21-32) 28 MMOL/L (21-32) Anion Gap 6 mmol/L (5-15) 7 mmol/L (5-15) Blood Urea Nitrogen 19 mg/dL (7-18) 19 mg/dL (7-18) Creatinine 1.4 MG/DL (0.55-1.30) 1.5 MG/DL (0.55-1.30) Estimat Glomerular Filtration Rate > 60 mL/min (>60) 55.8 mL/min (>60) Glucose Level 110 MG/DL (74-106) 97 MG/DL (74-106) Calcium Level 9.3 MG/DL (8.5-10.1) 8.8 MG/DL (8.5-10.1) White Blood Count 5.8 K/UL (4.8-10.8) Red Blood Count 3.07 M/UL (4.70-6.10) Hemoglobin 9.0 G/DL (14.2-18.0) Hematocrit 25.9 % (42.0-52.0) Mean Corpuscular Volume 84 FL (80-99) Mean Corpuscular Hemoglobin 29.3 PG (27.0-31.0) Mean Corpuscular Hemoglobin Concent 34.7 G/DL (32.0-36.0) Red Cell Distribution Width 15.0 % (11.6-14.8) Platelet Count 230 K/UL (150-450) Mean Platelet Volume 4.4 FL (6.5-10.1) Neutrophils (%) (Auto) 71.7 % (45.0-75.0) Lymphocytes (%) (Auto) 13.6 % (20.0-45.0) Monocytes (%) (Auto) 9.5 % (1.0-10.0) Eosinophils (%) (Auto) 4.3 % (0.0-3.0) Basophils (%) (Auto) 0.8 % (0.0-2.0) Height (Feet): 5 Height (Inches): 7.00 Weight (Pounds): 167 Objective General: normal inspection, alert, Chronically Ill Respiratory: dry breath sounds b/l, ++ bipap Cardiovascular: regular rate, rhythm, no edema Gastrointestinal: normal inspection, normal bowel sounds Genitourinary: no CVA tenderness Mus: normal inspection, back normal, normal range of motion Neurologic: alert, motor strength/tone normal, oriented + confused Psychiatric: normal inspection, judgement/insight normal Skin: no rash Andreas Monroy MD Apr 21, 2019 06:48
--- NOTE | 2019-04-21 06:50 | NUR ---
NURSE NOTES: Dr. Root came to see and assess patient. Informed him of the pink tinged urine. He said to irrigate guerra as needed. Will endorse.
--- NOTE | 2019-04-21 07:22 | NUR ---
HAND-OFF: Report given to BLANCA DOLAN.
--- NOTE | 2019-04-21 07:23 | NUR ---
NURSE NOTES: Report received from BLANCA Beverly. Patient is awake, alert and oriented x2, with periods of confusion, repetitive with his thoughts. On 2L nasal cannula O2 saturating at 100%. On feeding of Vital AF @ 55ml/hr via NGT. Morales catheter in place and draining, secured on left thigh. Right upper forearm 22g IV running D5W @ 50ml/hr. Pt received and maintained on BL2 point soft wrist restraints for safety, per MD order. Safety measures in place; bed locked and in lowest position. Will continue to monitor.
[2019-04-21] MEDS: Memantine 5 MG TAB ORAL SCH ×2 (08:33→17:00)
[2019-04-21] MEDS: Enoxaparin 30mg Inj SUBQ SCH (08:34)
--- NOTE | 2019-04-21 09:00 | NUR ---
NURSE NOTES: Gema held d/t hematuria. Dr. Root aware of pink colored urine. Morales irrigated with about 20mL. Will continue to monitor.
--- NOTE | 2019-04-21 09:07 | Urology Progress Note ---
Assessment/Plan Status: unchanged Assessment/Plan: 1. 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 2. Urinary retention. 3. Acute kidney injury, improved. 4. Hydronephrosis, likely chronic. 5. Proteinuria. 6. UTI and colonization. 7. Hematuria. monitor clinically maintain guerra, last replaced 04/10 hand irrigated and do PRN position is satisfactory monitor renal fxn, labile likely obst of bilateral distal ureters secondary to advanced prostate ca will need to see how aggressive pt and family want to be renal fxn improved with the new guerra consider ureteral stents or nephrostomies? flomax added s/p abx may need to hold lovenox voiding trial at some point? d/w nursing staff Subjective Allergies: Coded Allergies: No Known Allergies (Unverified , 04/03/19) Subjective all noted, still in ICU, extubated, bipap Objective Last 24 Hour Vital Signs Date Time Temp Pulse Resp B/P (MAP) Pulse Ox O2 Delivery O2 Flow Rate FiO2 04/21/19 08:30 97.8 102 32 96/68 (77) 100 04/21/19 08:00 109 28 107/69 (82) 100 04/21/19 08:00 2.0 04/21/19 08:00 Nasal Cannula 2.0 04/21/19 07:59 110 04/21/19 07:00 110 31 105/64 (78) 100 04/21/19 06:54 109 28 100 Nasal Cannula 2.0 28 108 27 100 04/21/19 06:44 100 Nasal Cannula 6.0 28 04/21/19 06:00 109 26 117/75 (89) 100 04/21/19 05:00 111 22 105/70 (82) 99 04/21/19 04:00 Mechanical Ventilator 04/21/19 04:00 98.0 108 22 110/68 (82) 96 04/21/19 04:00 30 04/21/19 03:22 110 27 100 Bi-Pap 30 04/21/19 03:07 110 25 100 Bi-Pap 30 04/21/19 03:06 110 25 100 30 04/21/19 03:06 110 04/21/19 03:00 110 26 120/74 (89) 90 04/21/19 02:00 110 26 95/63 (74) 99 04/21/19 01:00 112 25 108/69 (82) 99 04/21/19 00:56 120 25 98 30 04/21/19 00:00 30 04/21/19 00:00 Mechanical Ventilator 04/21/19 00:00 98.9 110 26 97/67 (77) 100 04/20/19 23:28 118 31 99 Bi-Pap 30 04/20/19 23:26 110 04/20/19 23:08 117 30 99 Bi-Pap 30 04/20/19 23:02 117 30 99 30 04/20/19 23:00 117 29 126/75 (92) 100 04/20/19 22:00 116 29 107/62 (77) 100 04/20/19 21:00 123 21 132/63 (86) 100 04/20/19 20:00 Mechanical Ventilator 04/20/19 20:00 98.4 114 29 105/69 (81) 100 04/20/19 20:00 3.0 04/20/19 19:45 116 27 100 Nasal Cannula 3.0 32 04/20/19 19:32 117 04/20/19 19:30 110 25 100 Nasal Cannula 3.0 32 04/20/19 19:30 100 Nasal Cannula 3.0 32 04/20/19 19:00 81 160/90 (113) 93 04/20/19 18:00 102 18 108/73 (85) 100 04/20/19 17:00 109 34 109/67 (81) 100 04/20/19 16:00 Nasal Cannula 3.0 04/20/19 16:00 115 04/20/19 16:00 3.0 04/20/19 16:00 98.9 112 30 114/71 (85) 100 04/20/19 15:31 112 22 100 109 22 100 04/20/19 15:30 109 28 123/77 (92) 98 04/20/19 15:00 111 31 113/69 (84) 100 04/20/19 14:00 112 30 120/73 (89) 97 04/20/19 13:00 113 28 114/75 (88) 93 04/20/19 12:30 112 29 113/69 (84) 99 04/20/19 12:00 Nasal Cannula 3.0 04/20/19 12:00 104 04/20/19 12:00 98.6 107 29 109/68 (82) 100 04/20/19 12:00 3.0 04/20/19 11:00 112 29 117/69 (85) 100 04/20/19 10:43 108 25 100 111 25 100 04/20/19 10:30 110 29 118/69 (85) 99 04/20/19 10:00 3.0 04/20/19 10:00 108 20 123/75 (91) 100 04/20/19 09:30 108 28 112/70 (84) 99 Intake and Output 04/20/19 04/21/19 19:00 07:00 Intake Total 655 ml 920.8 ml Output Total 430 ml 710 ml Balance 225 ml 210.8 ml IV Total 50 ml 585.8 ml Tube Feeding 605 ml 275 ml Other 60 ml Output Urine Total 430 ml 710 ml # Bowel Movements 4 4 Microbiology Date/Time Source Procedure Growth Status 04/14/19 12:45 Blood Blood Culture - Final NO GROWTH AFTER 5 DAYS Complete 04/15/19 21:40 Sputum Gram Stain - Final Complete 04/15/19 21:40 Sputum Sputum Culture - Final NORMAL UPPER RESPIRATORY DAVID PRESENT Complete 04/18/19 17:00 Stool Clostridium difficile Toxin Assay - Final Complete 04/14/19 11:25 Urine,Random Urine Culture - Final NO GROWTH AFTER 48 HOURS Complete Current Medications Medications (Trade) Dose Ordered Sig/La Nena Route PRN Reason Start Time Stop Time Status Last Admin Dose Admin Acetylcysteine (Mucomyst) 200 mg Q4HRT [facility] 04/18/19 11:00 05/18/19 10:59 04/21/19 03:07 Albuterol/ Ipratropium (Albuterol/ Ipratropium) 3 ml Q4HRT [facility] 04/18/19 11:00 04/23/19 10:59 04/21/19 06:44 Chlorhexidine Gluconate (Martha-Hex 2%) 1 applic DAILY@2000 TOPIC 04/18/19 20:00 05/18/19 19:59 04/19/19 20:11 Dextrose 1,000 ml @ 50 mls/hr Q20H IV 04/18/19 13:00 05/18/19 12:59 04/21/19 00:17 Enoxaparin Sodium (Lovenox) 30 mg DAILY SUBQ 04/14/19 09:00 05/04/19 08:59 04/19/19 08:37 Hydralazine HCl (Apresoline) 10 mg Q4H PRN IV SBP > 170mmHg 04/13/19 15:00 05/08/19 14:59 Lansoprazole (Prevacid) 30 mg DAILY ORAL 04/14/19 09:00 05/13/19 08:59 04/21/19 08:33 Lorazepam (Ativan 2mg/ml 1ml) 1 mg Q6H PRN IV For Anxiety 04/17/19 18:15 04/24/19 18:14 04/19/19 02:34 Memantine (Namenda) 5 mg BID ORAL 04/13/19 18:00 05/04/19 17:59 04/21/19 08:33 Norepinephrine Bitartrate 4 mg/ Dextrose 250 ml @ 0 mls/hr Q24H IV 04/13/19 17:00 05/13/19 16:59 04/14/19 22:57 Tamsulosin HCl (Flomax) 0.4 mg BEDTIME ORAL 04/13/19 21:00 05/13/19 20:59 04/20/19 20:37 Laboratory Tests 04/20/19 10:48: Arterial Blood pH 7.316L, Arterial Blood Partial Pressure CO2 52.4H, Arterial Blood Partial Pressure O2 93.1, Arterial Blood HCO3 26.1H, Arterial Blood Oxygen Saturation 96.3, Arterial Blood Base Excess -0.4, Antonio Test Positive 04/21/19 04:55: White Blood Count 5.8, Red Blood Count 3.07L, Hemoglobin 9.0L, Hematocrit 25.9L , Mean Corpuscular Volume 84, Mean Corpuscular Hemoglobin 29.3, Mean Corpuscular Hemoglobin Concent 34.7, Red Cell Distribution Width 15.0H, Platelet Count 230, Mean Platelet Volume 4.4L, Neutrophils (%) (Auto) 71.7, Lymphocytes (%) (Auto) 13.6L, Monocytes (%) (Auto) 9.5, Eosinophils (%) (Auto) 4.3H, Basophils (%) (Auto) 0.8, Sodium Level 144, Potassium Level 3.2L, Chloride Level 109H, Carbon Dioxide Level 28, Anion Gap 7, Blood Urea Nitrogen 19H, Creatinine 1.5H, Estimat Glomerular Filtration Rate 55.8, Glucose Level 97 , Calcium Level 8.8 04/21/19 08:43: Arterial Blood pH 7.388, Arterial Blood Partial Pressure CO2 47.2H, Arterial Blood Partial Pressure O2 68.3L, Arterial Blood HCO3 27.8H, Arterial Blood Oxygen Saturation 93.4L, Arterial Blood Base Excess 2.4H, Antonio Test Positive Height (Feet): 5 Height (Inches): 7.00 Weight (Pounds): 167 Objective exam stable guerra indwelling, blood-tinged urine CT A/P (04/10) noted Raz Root MD Apr 21, 2019 09:07
--- NOTE | 2019-04-21 09:41 | NUR ---
RADIOLOGY DEPT., CHEST X-RAY DONE.-P.DYE
--- NOTE | 2019-04-21 09:54 | General Progress Note ---
Assessment/Plan Status: unchanged Assessment/Plan: Assessment/Plan Problems: (1) Coffee ground emesis (2) Anemia (3) metastatic prostate CA (4) respiratory failure extubated in the ICU NGTF tolerated ppi d/w pulm>>> plan EGD and peg for tomorrow will fu Subjective ROS Limited/Unobtainable: No Allergies: Coded Allergies: No Known Allergies (Unverified , 04/03/19) Objective Last 24 Hour Vital Signs Date Time Temp Pulse Resp B/P (MAP) Pulse Ox O2 Delivery O2 Flow Rate FiO2 04/21/19 09:00 107 29 99/65 (76) 100 04/21/19 08:30 97.8 102 32 96/68 (77) 100 04/21/19 08:00 109 28 107/69 (82) 100 04/21/19 08:00 2.0 04/21/19 08:00 Nasal Cannula 2.0 04/21/19 07:59 110 04/21/19 07:00 110 31 105/64 (78) 100 04/21/19 06:54 109 28 100 Nasal Cannula 2.0 28 108 27 100 04/21/19 06:44 100 Nasal Cannula 6.0 28 04/21/19 06:00 109 26 117/75 (89) 100 04/21/19 05:00 111 22 105/70 (82) 99 04/21/19 04:00 Mechanical Ventilator 04/21/19 04:00 98.0 108 22 110/68 (82) 96 04/21/19 04:00 30 04/21/19 03:22 110 27 100 Bi-Pap 30 04/21/19 03:07 110 25 100 Bi-Pap 30 04/21/19 03:06 110 25 100 30 04/21/19 03:06 110 04/21/19 03:00 110 26 120/74 (89) 90 04/21/19 02:00 110 26 95/63 (74) 99 04/21/19 01:00 112 25 108/69 (82) 99 04/21/19 00:56 120 25 98 30 04/21/19 00:00 30 04/21/19 00:00 Mechanical Ventilator 04/21/19 00:00 98.9 110 26 97/67 (77) 100 04/20/19 23:28 118 31 99 Bi-Pap 30 04/20/19 23:26 110 2/17/20 23:08 117 30 99 Bi-Pap 30 04/20/19 23:02 117 30 99 30 04/20/19 23:00 117 29 126/75 (92) 100 04/20/19 22:00 116 29 107/62 (77) 100 04/20/19 21:00 123 21 132/63 (86) 100 04/20/19 20:00 Mechanical Ventilator 04/20/19 20:00 98.4 114 29 105/69 (81) 100 04/20/19 20:00 3.0 04/20/19 19:45 116 27 100 Nasal Cannula 3.0 32 04/20/19 19:32 117 04/20/19 19:30 110 25 100 Nasal Cannula 3.0 32 04/20/19 19:30 100 Nasal Cannula 3.0 32 04/20/19 19:00 81 160/90 (113) 93 04/20/19 18:00 102 18 108/73 (85) 100 04/20/19 17:00 109 34 109/67 (81) 100 04/20/19 16:00 Nasal Cannula 3.0 04/20/19 16:00 115 04/20/19 16:00 3.0 04/20/19 16:00 98.9 112 30 114/71 (85) 100 04/20/19 15:31 112 22 100 109 22 100 04/20/19 15:30 109 28 123/77 (92) 98 04/20/19 15:00 111 31 113/69 (84) 100 04/20/19 14:00 112 30 120/73 (89) 97 04/20/19 13:00 113 28 114/75 (88) 93 04/20/19 12:30 112 29 113/69 (84) 99 04/20/19 12:00 Nasal Cannula 3.0 04/20/19 12:00 104 04/20/19 12:00 98.6 107 29 109/68 (82) 100 04/20/19 12:00 3.0 04/20/19 11:00 112 29 117/69 (85) 100 04/20/19 10:43 108 25 100 111 25 100 04/20/19 10:30 110 29 118/69 (85) 99 04/20/19 10:00 3.0 04/20/19 10:00 108 20 123/75 (91) 100 Intake and Output 04/20/19 04/21/19 19:00 07:00 Intake Total 655 ml 920.8 ml Output Total 430 ml 710 ml Balance 225 ml 210.8 ml IV Total 50 ml 585.8 ml Tube Feeding 605 ml 275 ml Other 60 ml Output Urine Total 430 ml 710 ml # Bowel Movements 4 4 Laboratory Tests 04/20/19 10:48: Arterial Blood pH 7.316L, Arterial Blood Partial Pressure CO2 52.4H, Arterial Blood Partial Pressure O2 93.1, Arterial Blood HCO3 26.1H, Arterial Blood Oxygen Saturation 96.3, Arterial Blood Base Excess -0.4, Antonio Test Positive 04/21/19 04:55: White Blood Count 5.8, Red Blood Count 3.07L, Hemoglobin 9.0L, Hematocrit 25.9L , Mean Corpuscular Volume 84, Mean Corpuscular Hemoglobin 29.3, Mean Corpuscular Hemoglobin Concent 34.7, Red Cell Distribution Width 15.0H, Platelet Count 230, Mean Platelet Volume 4.4L, Neutrophils (%) (Auto) 71.7, Lymphocytes (%) (Auto) 13.6L, Monocytes (%) (Auto) 9.5, Eosinophils (%) (Auto) 4.3H, Basophils (%) (Auto) 0.8, Sodium Level 144, Potassium Level 3.2L, Chloride Level 109H, Carbon Dioxide Level 28, Anion Gap 7, Blood Urea Nitrogen 19H, Creatinine 1.5H, Estimat Glomerular Filtration Rate 55.8, Glucose Level 97 , Calcium Level 8.8 04/21/19 08:43: Arterial Blood pH 7.388, Arterial Blood Partial Pressure CO2 47.2H, Arterial Blood Partial Pressure O2 68.3L, Arterial Blood HCO3 27.8H, Arterial Blood Oxygen Saturation 93.4L, Arterial Blood Base Excess 2.4H, Antonio Test Positive Height (Feet): 5 Height (Inches): 7.00 Weight (Pounds): 167 General Appearance: lethargic EENT: normal ENT inspection Neck: supple Cardiovascular: normal rate Respiratory/Chest: decreased breath sounds Abdomen: normal bowel sounds, non tender, soft Extremities: non-tender Tyrone Lamb MD Apr 21, 2019 09:54
--- NOTE | 2019-04-21 10:39 | Cardiac Electrophysiology PN ---
Assessment/Plan Assessment/Plan 1. Status post 2 non infarctional separate juan antonio arrest with asystole. Both episodes happened in the setting of respiratory failure and off the Vent No evidence of ventricular tachycardia or ventricular fibrillation. Off any GARCÍA or AVN olivia EF 65%. All 3 troponins were less than 0.1. Watch for recurrence of bradycardia 2. Recurrent Respiratory failure, extubated 04/08/19 and reintubated 04/13/19 and rextubated 04/19/19 3. History of stage III prostate cancer, followed by Dr. Monroy and Dr Root. Morales was changed. Follows up at [facility] 4. Shock. Off Levophed on iv Abx. 5. Hypercalcemia due to prostate cancer. 6. Hypernatremia. 7. Anemia, s/p PRBC 04/08/19. Hb 7 again. S/P1 unit PRBC 8. Low K. Replace 9. Dysphagia, PEG tomorrow by Dr Lamb pending DW RN Subjective Subjective Extubated in ICU. No juan antonio yet.NGT feeding. Scheduled for PEG in am Objective Last 24 Hour Vital Signs Date Time Temp Pulse Resp B/P (MAP) Pulse Ox O2 Delivery O2 Flow Rate FiO2 04/21/19 10:00 114 29 118/84 (95) 99 04/21/19 10:00 105 31 118/84 (95) 100 04/21/19 09:00 107 29 99/65 (76) 100 04/21/19 08:30 97.8 102 32 96/68 (77) 100 04/21/19 08:00 109 28 107/69 (82) 100 04/21/19 08:00 2.0 04/21/19 08:00 Nasal Cannula 2.0 04/21/19 07:59 110 04/21/19 07:00 110 31 105/64 (78) 100 04/21/19 06:54 109 28 100 Nasal Cannula 2.0 28 108 27 100 04/21/19 06:44 100 Nasal Cannula 6.0 28 04/21/19 06:00 109 26 117/75 (89) 100 04/21/19 05:00 111 22 105/70 (82) 99 04/21/19 04:00 Mechanical Ventilator 04/21/19 04:00 98.0 108 22 110/68 (82) 96 04/21/19 04:00 30 04/21/19 03:22 110 27 100 Bi-Pap 30 04/21/19 03:07 110 25 100 Bi-Pap 30 04/21/19 03:06 110 25 100 30 04/21/19 03:06 110 04/21/19 03:00 110 26 120/74 (89) 90 04/21/19 02:00 110 26 95/63 (74) 99 04/21/19 01:00 112 25 108/69 (82) 99 04/21/19 00:56 120 25 98 30 04/21/19 00:00 30 04/21/19 00:00 Mechanical Ventilator 04/21/19 00:00 98.9 110 26 97/67 (77) 100 04/20/19 23:28 118 31 99 Bi-Pap 30 04/20/19 23:26 110 04/20/19 23:08 117 30 99 Bi-Pap 30 04/20/19 23:02 117 30 99 30 04/20/19 23:00 117 29 126/75 (92) 100 04/20/19 22:00 116 29 107/62 (77) 100 04/20/19 21:00 123 21 132/63 (86) 100 04/20/19 20:00 Mechanical Ventilator 04/20/19 20:00 98.4 114 29 105/69 (81) 100 04/20/19 20:00 3.0 04/20/19 19:45 116 27 100 Nasal Cannula 3.0 32 04/20/19 19:32 117 04/20/19 19:30 110 25 100 Nasal Cannula 3.0 32 04/20/19 19:30 100 Nasal Cannula 3.0 32 04/20/19 19:00 81 160/90 (113) 93 04/20/19 18:00 102 18 108/73 (85) 100 04/20/19 17:00 109 34 109/67 (81) 100 04/20/19 16:00 Nasal Cannula 3.0 04/20/19 16:00 115 04/20/19 16:00 3.0 04/20/19 16:00 98.9 112 30 114/71 (85) 100 04/20/19 15:31 112 22 100 109 22 100 04/20/19 15:30 109 28 123/77 (92) 98 04/20/19 15:00 111 31 113/69 (84) 100 2/17/20 14:00 112 30 120/73 (89) 97 04/20/19 13:00 113 28 114/75 (88) 93 04/20/19 12:30 112 29 113/69 (84) 99 04/20/19 12:00 Nasal Cannula 3.0 04/20/19 12:00 104 04/20/19 12:00 98.6 107 29 109/68 (82) 100 04/20/19 12:00 3.0 04/20/19 11:00 112 29 117/69 (85) 100 04/20/19 10:43 108 25 100 111 25 100 Intake and Output 04/20/19 04/21/19 19:00 07:00 Intake Total 655 ml 920.8 ml Output Total 430 ml 710 ml Balance 225 ml 210.8 ml IV Total 50 ml 585.8 ml Tube Feeding 605 ml 275 ml Other 60 ml Output Urine Total 430 ml 710 ml # Bowel Movements 4 4 Laboratory Tests Test 04/20/19 10:48 04/21/19 04:55 04/21/19 08:43 Arterial Blood pH 7.316 (7.350-7.450) 7.388 (7.350-7.450) Arterial Blood Partial Pressure CO2 52.4 mmHg (35.0-45.0) H 47.2 mmHg (35.0-45.0) H Arterial Blood Partial Pressure O2 93.1 mmHg (75.0-100.0) 68.3 mmHg (75.0-100.0) L Arterial Blood HCO3 26.1 mmol/L (22.0-26.0) H 27.8 mmol/L (22.0-26.0) H Arterial Blood Oxygen Saturation 96.3 % (95-100) 93.4 % (95-100) L Arterial Blood Base Excess -0.4 (-2-2) 2.4 (-2-2) H Antonio Test Positive Positive White Blood Count 5.8 K/UL (4.8-10.8) Red Blood Count 3.07 M/UL (4.70-6.10) L Hemoglobin 9.0 G/DL (14.2-18.0) L Hematocrit 25.9 % (42.0-52.0) L Mean Corpuscular Volume 84 FL (80-99) Mean Corpuscular Hemoglobin 29.3 PG (27.0-31.0) Mean Corpuscular Hemoglobin Concent 34.7 G/DL (32.0-36.0) Red Cell Distribution Width 15.0 % (11.6-14.8) H Platelet Count 230 K/UL (150-450) Mean Platelet Volume 4.4 FL (6.5-10.1) L Neutrophils (%) (Auto) 71.7 % (45.0-75.0) Lymphocytes (%) (Auto) 13.6 % (20.0-45.0) L Monocytes (%) (Auto) 9.5 % (1.0-10.0) Eosinophils (%) (Auto) 4.3 % (0.0-3.0) H Basophils (%) (Auto) 0.8 % (0.0-2.0) Sodium Level 144 MMOL/L (136-145) Potassium Level 3.2 MMOL/L (3.5-5.1) L Chloride Level 109 MMOL/L (98-107) H Carbon Dioxide Level 28 MMOL/L (21-32) Anion Gap 7 mmol/L (5-15) Blood Urea Nitrogen 19 mg/dL (7-18) H Creatinine 1.5 MG/DL (0.55-1.30) H Estimat Glomerular Filtration Rate 55.8 mL/min (>60) Glucose Level 97 MG/DL (74-106) Calcium Level 8.8 MG/DL (8.5-10.1) Microbiology Date/Time Source Procedure Growth Status 04/18/19 17:00 Stool Clostridium difficile Toxin Assay - Final Complete Objective HEENT: No JVD. LUNGS: Coarse rhonchi. CARDIOVASCULAR: Regular S1 and S2 ABDOMEN: Soft and nondistended. EXTREMITIES: No pitting edema. Nain Cortez MD Apr 21, 2019 10:39
--- NOTE | 2019-04-21 10:45 | NUR ---
NURSE NOTES: Dr. Cortez at bedside assessing pt. Updated him with pt's current condition. K-Dur 40mEq ordered and given to replace potassium.
--- NOTE | 2019-04-21 10:46 | Diagnostic Imaging Report ---
Indication: Shortness of breath Technique: One view of the chest Comparison: 04/20/2019 Findings: Hazy right midlung infiltrate is demonstrated, slightly increased from previous exam. There is improved aeration of the right lung base, with decreased fluid or atelectasis. As left pleural effusion persists. Generalized mild interstitial congestion persists, may slightly worse. Gastric tube again demonstrated. Impression: Shifting infiltrates on the right, with increased hazy midlung infiltrate, improved right basilar consolidation or atelectasis or pleural fluid Slightly increased generalized mild interstitial congestion Stable large left pleural effusion
--- NOTE | 2019-04-21 10:58 | Infectious Diseases Prog Note ---
Assessment/Plan Assessment/Plan Assessment: s/p bradycardia>cardiac arrest 04/13 VDRF 04/13; sp extubation 04/19 Shock, recurrent- off pressors -04/20 CXR: Interim extubation. Increased left greater than right pleural fluid s/p asystole cardiac arrest 04/06 VDRF; s/p extubation 04/08 Probable PNA -04/21 CXR:Shifting infiltrates on the right, with increased hazy midlung infiltrate, improved right basilar consolidation or atelectasis or pleural fluid. Slightly increased generalized mild interstitial congestion. Stable large left pleural effusion Low grade fever; SP Mild leukocytosis, recurrent- SP -04/15 sp cx normal resp sharyn (prelim) -04/14 u/a wbc 10-15, nit neg, leuk +3; ucx NTD CXR: Interim development of complete right upper lobe atelectasis. Nonspecific diffuse hazy left lung opacity, likely mild pulmonary edema. -04/07 Bcx NTD u/a wbc tnct, nit neg, leuk +; ucx neg -04/06 CXR: Interval resolution of right apical density. This suggests the diagnosis was atelectasis rather than an apical cap from blood, which was suggested as a possibility on the prior report. The right upper lobe atelectasis has resolved. Suspicion of new atelectasis at the right lung base. Sepsis UTI B/l hydroureteronephrosis -04/10 CT abd/p: Evidence of advanced metastatic neoplasm likely secondary to prostate carcinoma. Extensive retroperitoneal and pelvic lymphadenopathy complicated by presence of bilateral hydroureteronephrosis. Extensive metastatic disease involving the bones also noted. Small left pleural effusion. Right trace right pleural effusion. Right inguinal hernia containing a small amount of fluid. Alternatively this could represent part of the testis. Anasarca. -u/a wbc 20-30, nit +, leuk +3; ucx >100k E.coli (R amp, bactrim; otherwise S) Probable Aspiration pneumonitis vs PNA -04/08 CXR: Patchy perihilar disease which may be asymmetric interstitial edema or infiltrate unchanged. Interval resolution of right basal atelectasis. -04/07 sp cx normal sharyn(prelim) s/p recent fall LETA Hypokalemia prostate CA stage IV, mets to bone chronic indwelling guerra catheter Plan: -Continue Cefepime #/-10 for probable PNA -2/14 SP Vanc IV #4 -10 SP Ceftriaxone #4 - 2/7 Sp ZOsyn #4 -2/6 SP IV Vancomycin #3 -2/4 SP Ceftriaxone #4 -f/u cx -Monitor CBC/CMP, temperatures -aspiration precautions -Cards, renal, Uro, pulm f/u -ICU care -poor px- consider re-evaluation of goals of care- ?Hospice Thank you for this consultation. Will continue to follow along with you. Subjective Allergies: Coded Allergies: No Known Allergies (Unverified , 04/03/19) Subjective afebrile no leukocytosis on 2l NC Objective Vital Signs Last 24 Hour Vital Signs Date Time Temp Pulse Resp B/P (MAP) Pulse Ox O2 Delivery O2 Flow Rate FiO2 04/21/19 10:00 114 29 118/84 (95) 99 04/21/19 10:00 105 31 118/84 (95) 100 04/21/19 09:00 107 29 99/65 (76) 100 04/21/19 08:30 97.8 102 32 96/68 (77) 100 04/21/19 08:00 109 28 107/69 (82) 100 04/21/19 08:00 2.0 04/21/19 08:00 Nasal Cannula 2.0 04/21/19 07:59 110 04/21/19 07:00 110 31 105/64 (78) 100 04/21/19 06:54 109 28 100 Nasal Cannula 2.0 28 108 27 100 04/21/19 06:44 100 Nasal Cannula 6.0 28 04/21/19 06:00 109 26 117/75 (89) 100 04/21/19 05:00 111 22 105/70 (82) 99 04/21/19 04:00 Mechanical Ventilator 04/21/19 04:00 98.0 108 22 110/68 (82) 96 04/21/19 04:00 30 04/21/19 03:22 110 27 100 Bi-Pap 30 04/21/19 03:07 110 25 100 Bi-Pap 30 04/21/19 03:06 110 25 100 30 04/21/19 03:06 110 04/21/19 03:00 110 26 120/74 (89) 90 04/21/19 02:00 110 26 95/63 (74) 99 04/21/19 01:00 112 25 108/69 (82) 99 04/21/19 00:56 120 25 98 30 04/21/19 00:00 30 04/21/19 00:00 Mechanical Ventilator 04/21/19 00:00 98.9 110 26 97/67 (77) 100 04/20/19 23:28 118 31 99 Bi-Pap 30 04/20/19 23:26 110 04/20/19 23:08 117 30 99 Bi-Pap 30 04/20/19 23:02 117 30 99 30 04/20/19 23:00 117 29 126/75 (92) 100 04/20/19 22:00 116 29 107/62 (77) 100 04/20/19 21:00 123 21 132/63 (86) 100 04/20/19 20:00 Mechanical Ventilator 04/20/19 20:00 98.4 114 29 105/69 (81) 100 04/20/19 20:00 3.0 04/20/19 19:45 116 27 100 Nasal Cannula 3.0 32 04/20/19 19:32 117 04/20/19 19:30 110 25 100 Nasal Cannula 3.0 32 04/20/19 19:30 100 Nasal Cannula 3.0 32 04/20/19 19:00 81 160/90 (113) 93 04/20/19 18:00 102 18 108/73 (85) 100 04/20/19 17:00 109 34 109/67 (81) 100 04/20/19 16:00 Nasal Cannula 3.0 04/20/19 16:00 115 04/20/19 16:00 3.0 04/20/19 16:00 98.9 112 30 114/71 (85) 100 04/20/19 15:31 112 22 100 109 22 100 04/20/19 15:30 109 28 123/77 (92) 98 04/20/19 15:00 111 31 113/69 (84) 100 04/20/19 14:00 112 30 120/73 (89) 97 04/20/19 13:00 113 28 114/75 (88) 93 04/20/19 12:30 112 29 113/69 (84) 99 04/20/19 12:00 Nasal Cannula 3.0 04/20/19 12:00 104 04/20/19 12:00 98.6 107 29 109/68 (82) 100 2/17/20 12:00 3.0 04/20/19 11:00 112 29 117/69 (85) 100 Height (Feet): 5 Height (Inches): 7.00 Weight (Pounds): 167 Objective General Appearance: normal inspection, alert, Chronically Ill ENT: ETT in place Neck: normal inspection, full range of motion, supple, no bony tend Respiratory: normal inspection, lungs clear, no wheezing Cardiovascular # regular rate, rhythm, no edema Gastrointestinal: normal inspection, normal bowel sounds, non tender, soft, no guardinga Musculoskeletal: normal inspection, back normal, normal range of motion Skin: no rash Microbiology Date/Time Source Procedure Growth Status 04/18/19 17:00 Stool Clostridium difficile Toxin Assay - Final Complete Laboratory Tests Test 04/21/19 04:55 04/21/19 08:43 White Blood Count 5.8 K/UL (4.8-10.8) Red Blood Count 3.07 M/UL (4.70-6.10) L Hemoglobin 9.0 G/DL (14.2-18.0) L Hematocrit 25.9 % (42.0-52.0) L Mean Corpuscular Volume 84 FL (80-99) Mean Corpuscular Hemoglobin 29.3 PG (27.0-31.0) Mean Corpuscular Hemoglobin Concent 34.7 G/DL (32.0-36.0) Red Cell Distribution Width 15.0 % (11.6-14.8) H Platelet Count 230 K/UL (150-450) Mean Platelet Volume 4.4 FL (6.5-10.1) L Neutrophils (%) (Auto) 71.7 % (45.0-75.0) Lymphocytes (%) (Auto) 13.6 % (20.0-45.0) L Monocytes (%) (Auto) 9.5 % (1.0-10.0) Eosinophils (%) (Auto) 4.3 % (0.0-3.0) H Basophils (%) (Auto) 0.8 % (0.0-2.0) Sodium Level 144 MMOL/L (136-145) Potassium Level 3.2 MMOL/L (3.5-5.1) L Chloride Level 109 MMOL/L (98-107) H Carbon Dioxide Level 28 MMOL/L (21-32) Anion Gap 7 mmol/L (5-15) Blood Urea Nitrogen 19 mg/dL (7-18) H Creatinine 1.5 MG/DL (0.55-1.30) H Estimat Glomerular Filtration Rate 55.8 mL/min (>60) Glucose Level 97 MG/DL (74-106) Calcium Level 8.8 MG/DL (8.5-10.1) Arterial Blood pH 7.388 (7.350-7.450) Arterial Blood Partial Pressure CO2 47.2 mmHg (35.0-45.0) H Arterial Blood Partial Pressure O2 68.3 mmHg (75.0-100.0) L Arterial Blood HCO3 27.8 mmol/L (22.0-26.0) H Arterial Blood Oxygen Saturation 93.4 % (95-100) L Arterial Blood Base Excess 2.4 (-2-2) H Antonio Test Positive Current Medications Medications (Trade) Dose Ordered Sig/[place] Route PRN Reason Start Time Stop Time Status Last Admin Dose Admin Acetylcysteine (Mucomyst) 200 mg Q4HRT N 04/18/19 11:00 05/18/19 10:59 04/21/19 03:07 Albuterol/ Ipratropium (Albuterol/ Ipratropium) 3 ml Q4HRT N 04/18/19 11:00 04/23/19 10:59 04/21/19 06:44 Chlorhexidine Gluconate (Martha-Hex 2%) 1 applic DAILY@2000 TOPIC 04/18/19 20:00 05/18/19 19:59 04/19/19 20:11 Dextrose 1,000 ml @ 50 mls/hr Q20H IV 04/18/19 13:00 05/18/19 12:59 04/21/19 00:17 Enoxaparin Sodium (Lovenox) 30 mg DAILY SUBQ 04/14/19 09:00 05/04/19 08:59 04/19/19 08:37 Hydralazine HCl (Apresoline) 10 mg Q4H PRN IV SBP > 170mmHg 04/13/19 15:00 05/08/19 14:59 Lansoprazole (Prevacid) 30 mg DAILY ORAL 04/14/19 09:00 05/13/19 08:59 04/21/19 08:33 Lorazepam (Ativan 2mg/ml 1ml) 1 mg Q6H PRN IV For Anxiety 04/17/19 18:15 04/24/19 18:14 04/19/19 02:34 Memantine (Namenda) 5 mg BID ORAL 04/13/19 18:00 05/04/19 17:59 04/21/19 08:33 Norepinephrine Bitartrate 4 mg/ Dextrose 250 ml @ 0 mls/hr Q24H IV 04/13/19 17:00 05/13/19 16:59 04/14/19 22:57 Potassium Chloride (K-Dur) 40 meq ONCE ORAL 04/21/19 10:30 04/21/19 11:30 04/21/19 10:40 Tamsulosin HCl (Flomax) 0.4 mg BEDTIME ORAL 04/13/19 21:00 05/13/19 20:59 04/20/19 20:37 Rafia Nielson M.D. Apr 21, 2019 10:58
--- NOTE | 2019-04-21 11:00 | NUR ---
NURSE NOTES: Dr Mathews at bedside assessing pt. Updated him with pt's current condition. Pt appears to be using abdominal muscles to breathe. Pt will have ABG done by RT and then placed back on BiPAP. Will continue to monitor.
--- NOTE | 2019-04-21 11:15 | NUR ---
RESPIRATORY NOTE: Placed pt on Bipap with the same settings after Breathing TX due to lSOB,labored abdominal breathing RR 34bpm. ABG done, High PCO2 is reported to RN Kellee. Foam tapes applied on nose bridge and cheeks to prevent skin breakdown. No redness or skin breakdown noted on pt's face. Pt's breathing less labored when on Bipap. Will continue to monitor.
--- NOTE | 2019-04-21 11:54 | NUR ---
NURSE NOTES: ABG results reported to Dr Mathews. Pt currently on BiPAP and breathing appears less labored. RT will change FiO2 from 30% to 28%, as order by Dr Hutton
--- NOTE | 2019-04-21 12:37 | Nephrology Progress Note ---
Assessment/Plan Status: unchanged Assessment/Plan: A/P 1. LETA. multifact ATN. - Cr stable . Avoid nephrotoxins and hypotension 2. Prostate cancer with elevated PSA 3. Hypokalemia- replace prn 4. Sepsis and UTI mgmt per ID 5. Hypernatremia- corrected. D5W stopped 6. Hypercalcemia of malignancy- s/p pamidronate and calcitonin. Ca 8.8 7. Resp FL- extubated on BiPAP Subjective Date patient seen: Apr 21, 2019 Time patient seen: 12:35 ROS Limited/Unobtainable: Yes Allergies: Coded Allergies: No Known Allergies (Unverified , 04/03/19) Subjective Patient now remains on BiPAP Objective Last 24 Hour Vital Signs Date Time Temp Pulse Resp B/P (MAP) Pulse Ox O2 Delivery O2 Flow Rate FiO2 04/21/19 12:00 Bi-pap 25.0 04/21/19 12:00 25 04/21/19 12:00 98.1 109 19 106/78 (87) 94 04/21/19 11:20 118 29 100 Nasal Cannula 2.0 28 114 34 100 04/21/19 11:15 117 34 100 30 04/21/19 11:00 102 29 118/79 (92) 100 04/21/19 10:00 114 29 118/84 (95) 99 04/21/19 10:00 105 31 118/84 (95) 100 04/21/19 09:00 107 29 99/65 (76) 100 04/21/19 08:30 97.8 102 32 96/68 (77) 100 04/21/19 08:00 109 28 107/69 (82) 100 04/21/19 08:00 2.0 04/21/19 08:00 Nasal Cannula 2.0 04/21/19 07:59 110 04/21/19 07:00 110 31 105/64 (78) 100 04/21/19 06:54 109 28 100 Nasal Cannula 2.0 28 108 27 100 04/21/19 06:44 100 Nasal Cannula 6.0 28 04/21/19 06:00 109 26 117/75 (89) 100 04/21/19 05:00 111 22 105/70 (82) 99 04/21/19 04:00 Mechanical Ventilator 04/21/19 04:00 98.0 108 22 110/68 (82) 96 04/21/19 04:00 30 04/21/19 03:22 110 27 100 Bi-Pap 30 04/21/19 03:07 110 25 100 Bi-Pap 30 04/21/19 03:06 110 25 100 30 04/21/19 03:06 110 04/21/19 03:00 110 26 120/74 (89) 90 04/21/19 02:00 110 26 95/63 (74) 99 04/21/19 01:00 112 25 108/69 (82) 99 04/21/19 00:56 120 25 98 30 04/21/19 00:00 30 04/21/19 00:00 Mechanical Ventilator 04/21/19 00:00 98.9 110 26 97/67 (77) 100 04/20/19 23:28 118 31 99 Bi-Pap 30 04/20/19 23:26 110 04/20/19 23:08 117 30 99 Bi-Pap 30 04/20/19 23:02 117 30 99 30 04/20/19 23:00 117 29 126/75 (92) 100 04/20/19 22:00 116 29 107/62 (77) 100 04/20/19 21:00 123 21 132/63 (86) 100 04/20/19 20:00 Mechanical Ventilator 04/20/19 20:00 98.4 114 29 105/69 (81) 100 04/20/19 20:00 3.0 04/20/19 19:45 116 27 100 Nasal Cannula 3.0 32 04/20/19 19:32 117 04/20/19 19:30 110 25 100 Nasal Cannula 3.0 32 04/20/19 19:30 100 Nasal Cannula 3.0 32 04/20/19 19:00 81 160/90 (113) 93 04/20/19 18:00 102 18 108/73 (85) 100 04/20/19 17:00 109 34 109/67 (81) 100 04/20/19 16:00 Nasal Cannula 3.0 04/20/19 16:00 115 04/20/19 16:00 3.0 04/20/19 16:00 98.9 112 30 114/71 (85) 100 04/20/19 15:31 112 22 100 109 22 100 04/20/19 15:30 109 28 123/77 (92) 98 04/20/19 15:00 111 31 113/69 (84) 100 04/20/19 14:00 112 30 120/73 (89) 97 04/20/19 13:00 113 28 114/75 (88) 93 Intake and Output 04/20/19 04/21/19 19:00 07:00 Intake Total 655 ml 920.8 ml Output Total 430 ml 710 ml Balance 225 ml 210.8 ml IV Total 50 ml 585.8 ml Tube Feeding 605 ml 275 ml Other 60 ml Output Urine Total 430 ml 710 ml # Bowel Movements 4 4 Laboratory Tests 04/21/19 04:55: White Blood Count 5.8, Red Blood Count 3.07L, Hemoglobin 9.0L, Hematocrit 25.9L , Mean Corpuscular Volume 84, Mean Corpuscular Hemoglobin 29.3, Mean Corpuscular Hemoglobin Concent 34.7, Red Cell Distribution Width 15.0H, Platelet Count 230, Mean Platelet Volume 4.4L, Neutrophils (%) (Auto) 71.7, Lymphocytes (%) (Auto) 13.6L, Monocytes (%) (Auto) 9.5, Eosinophils (%) (Auto) 4.3H, Basophils (%) (Auto) 0.8, Sodium Level 144, Potassium Level 3.2L, Chloride Level 109H, Carbon Dioxide Level 28, Anion Gap 7, Blood Urea Nitrogen 19H, Creatinine 1.5H, Estimat Glomerular Filtration Rate 55.8, Glucose Level 97 , Calcium Level 8.8 04/21/19 08:43: Arterial Blood pH 7.388, Arterial Blood Partial Pressure CO2 47.2H, Arterial Blood Partial Pressure O2 68.3L, Arterial Blood HCO3 27.8H, Arterial Blood Oxygen Saturation 93.4L, Arterial Blood Base Excess 2.4H, Antonio Test Positive 04/21/19 11:00: Arterial Blood pH 7.313L, Arterial Blood Partial Pressure CO2 57.7*H, Arterial Blood Partial Pressure O2 236.0H, Arterial Blood HCO3 28.6H, Arterial Blood Oxygen Saturation 98.9, Arterial Blood Base Excess 1.7, Antonio Test Positive Height (Feet): 5 Height (Inches): 7.00 Weight (Pounds): 167 General Appearance: no apparent distress, alert EENT: normal ENT inspection Neck: normal alignment, supple Cardiovascular: regular rhythm Respiratory/Chest: rhonchi - bilaterally Abdomen: non tender, soft Edema: no edema noted Arm (L), no edema noted Arm (R), no edema noted Leg (L), no edema noted Leg (R), no edema noted Pedal (L), no edema noted Pedal (R), no edema noted Generalized Carlos White MD Apr 21, 2019 12:37
--- NOTE | 2019-04-21 12:46 | Surgery Progress Note ---
Surgery Progress Note Subjective Procedure Performed right femoral central venous catheter insertion Additional Comments on bipap labs noted not doing well today Objective Last 24 Hour Vital Signs Date Time Temp Pulse Resp B/P (MAP) Pulse Ox O2 Delivery O2 Flow Rate FiO2 04/21/19 12:00 Bi-pap 25.0 04/21/19 12:00 25 04/21/19 12:00 98.1 109 19 106/78 (87) 94 04/21/19 11:20 118 29 100 Nasal Cannula 2.0 28 114 34 100 04/21/19 11:15 117 34 100 30 04/21/19 11:00 102 29 118/79 (92) 100 04/21/19 10:00 114 29 118/84 (95) 99 04/21/19 10:00 105 31 118/84 (95) 100 04/21/19 09:00 107 29 99/65 (76) 100 04/21/19 08:30 97.8 102 32 96/68 (77) 100 04/21/19 08:00 109 28 107/69 (82) 100 04/21/19 08:00 2.0 04/21/19 08:00 Nasal Cannula 2.0 04/21/19 07:59 110 04/21/19 07:00 110 31 105/64 (78) 100 04/21/19 06:54 109 28 100 Nasal Cannula 2.0 28 108 27 100 04/21/19 06:44 100 Nasal Cannula 6.0 28 04/21/19 06:00 109 26 117/75 (89) 100 04/21/19 05:00 111 22 105/70 (82) 99 04/21/19 04:00 Mechanical Ventilator 04/21/19 04:00 98.0 108 22 110/68 (82) 96 04/21/19 04:00 30 04/21/19 03:22 110 27 100 Bi-Pap 30 04/21/19 03:07 110 25 100 Bi-Pap 30 04/21/19 03:06 110 25 100 30 04/21/19 03:06 110 04/21/19 03:00 110 26 120/74 (89) 90 04/21/19 02:00 110 26 95/63 (74) 99 04/21/19 01:00 112 25 108/69 (82) 99 04/21/19 00:56 120 25 98 30 04/21/19 00:00 30 04/21/19 00:00 Mechanical Ventilator 04/21/19 00:00 98.9 110 26 97/67 (77) 100 04/20/19 23:28 118 31 99 Bi-Pap 30 04/20/19 23:26 110 04/20/19 23:08 117 30 99 Bi-Pap 30 04/20/19 23:02 117 30 99 30 04/20/19 23:00 117 29 126/75 (92) 100 04/20/19 22:00 116 29 107/62 (77) 100 04/20/19 21:00 123 21 132/63 (86) 100 04/20/19 20:00 Mechanical Ventilator 04/20/19 20:00 98.4 114 29 105/69 (81) 100 04/20/19 20:00 3.0 04/20/19 19:45 116 27 100 Nasal Cannula 3.0 32 04/20/19 19:32 117 04/20/19 19:30 110 25 100 Nasal Cannula 3.0 32 04/20/19 19:30 100 Nasal Cannula 3.0 32 04/20/19 19:00 81 160/90 (113) 93 04/20/19 18:00 102 18 108/73 (85) 100 04/20/19 17:00 109 34 109/67 (81) 100 04/20/19 16:00 Nasal Cannula 3.0 04/20/19 16:00 115 04/20/19 16:00 3.0 04/20/19 16:00 98.9 112 30 114/71 (85) 100 04/20/19 15:31 112 22 100 109 22 100 04/20/19 15:30 109 28 123/77 (92) 98 04/20/19 15:00 111 31 113/69 (84) 100 04/20/19 14:00 112 30 120/73 (89) 97 04/20/19 13:00 113 28 114/75 (88) 93 I&O Intake and Output 04/20/19 04/21/19 19:00 07:00 Intake Total 655 ml 920.8 ml Output Total 430 ml 710 ml Balance 225 ml 210.8 ml IV Total 50 ml 585.8 ml Tube Feeding 605 ml 275 ml Other 60 ml Output Urine Total 430 ml 710 ml # Bowel Movements 4 4 Dressing: other Wound: other Drains: other Cardiovascular: RSR Respiratory: decreased breath sounds Abdomen: soft, present bowel sounds Extremities: no cyanosis Laboratory Tests Test 04/21/19 04:55 04/21/19 08:43 04/21/19 11:00 White Blood Count 5.8 K/UL (4.8-10.8) Red Blood Count 3.07 M/UL (4.70-6.10) L Hemoglobin 9.0 G/DL (14.2-18.0) L Hematocrit 25.9 % (42.0-52.0) L Mean Corpuscular Volume 84 FL (80-99) Mean Corpuscular Hemoglobin 29.3 PG (27.0-31.0) Mean Corpuscular Hemoglobin Concent 34.7 G/DL (32.0-36.0) Red Cell Distribution Width 15.0 % (11.6-14.8) H Platelet Count 230 K/UL (150-450) Mean Platelet Volume 4.4 FL (6.5-10.1) L Neutrophils (%) (Auto) 71.7 % (45.0-75.0) Lymphocytes (%) (Auto) 13.6 % (20.0-45.0) L Monocytes (%) (Auto) 9.5 % (1.0-10.0) Eosinophils (%) (Auto) 4.3 % (0.0-3.0) H Basophils (%) (Auto) 0.8 % (0.0-2.0) Sodium Level 144 MMOL/L (136-145) Potassium Level 3.2 MMOL/L (3.5-5.1) L Chloride Level 109 MMOL/L (98-107) H Carbon Dioxide Level 28 MMOL/L (21-32) Anion Gap 7 mmol/L (5-15) Blood Urea Nitrogen 19 mg/dL (7-18) H Creatinine 1.5 MG/DL (0.55-1.30) H Estimat Glomerular Filtration Rate 55.8 mL/min (>60) Glucose Level 97 MG/DL (74-106) Calcium Level 8.8 MG/DL (8.5-10.1) Arterial Blood pH 7.388 (7.350-7.450) 7.313 (7.350-7.450) Arterial Blood Partial Pressure CO2 47.2 mmHg (35.0-45.0) H 57.7 mmHg (35.0-45.0) *H Arterial Blood Partial Pressure O2 68.3 mmHg (75.0-100.0) L 236.0 mmHg (75.0-100.0) H Arterial Blood HCO3 27.8 mmol/L (22.0-26.0) H 28.6 mmol/L (22.0-26.0) H Arterial Blood Oxygen Saturation 93.4 % (95-100) L 98.9 % (95-100) Arterial Blood Base Excess 2.4 (-2-2) H 1.7 (-2-2) Antonio Test Positive Positive Plan Problems: (1) Cardiac arrest Assessment & Plan: Acute deterioration Cardiovascular lopez ACLS required for resuscitation Still full code Hypotensive intensive care unit requiring a new central venous catheter see note Antibiotics as per infectious caries cont current treatment improving trend labs diet as tolerated improving on bipap may require intubation if so will recommend trach will follow with recs thank you (2) Stage III adenocarcinoma of prostate Assessment & Plan: patient with state 3 prostate cancer pending treatment at [facility] unlikely related to acute cardiac arrest this am abd exam with mild distention no acute surgical intervention planned onc input improving extubated diet as tolerated thank you will follow with Jay Conrad Apr 21, 2019 12:46
[2019-04-21] MEDS: Cefepime HCl 1 GM in D5W 55 ML IVPB SCH (13:07)
--- NOTE | 2019-04-21 13:30 | NUR ---
NURSE NOTES: Pt repositioned and oral care performed. No distress noted at this time.
--- NOTE | 2019-04-21 13:54 | General Progress Note ---
Assessment/Plan Problem List: (1) UTI (urinary tract infection) ICD Codes: N39.0 - Urinary tract infection, site not specified SNOMED: 01380261 (2) Weak ICD Codes: R53.1 - Weakness SNOMED: 51273343 (3) Anemia ICD Codes: D64.9 - Anemia, unspecified SNOMED: 427726375 (4) Dehydration ICD Codes: E86.0 - Dehydration SNOMED: 38196048, 56687008 (5) Episode of generalized weakness ICD Codes: R53.1 - Weakness SNOMED: 34759385 (6) Stage III adenocarcinoma of prostate ICD Codes: C61 - Malignant neoplasm of prostate SNOMED: 568544510, 84240911 Status: unchanged Assessment/Plan: wean vent pt diet abx iv fluid heme gi eval cbc bmp am Subjective Constitutional: Reports: weakness Allergies: Coded Allergies: No Known Allergies (Unverified , 04/03/19) All Systems: reviewed and negative except above Subjective o2 mask in icu Objective Last 24 Hour Vital Signs Date Time Temp Pulse Resp B/P (MAP) Pulse Ox O2 Delivery O2 Flow Rate FiO2 04/21/19 13:00 98 20 108/69 (82) 100 04/21/19 12:00 Bi-pap 25.0 04/21/19 12:00 97 04/21/19 12:00 25 04/21/19 12:00 98.1 109 19 106/78 (87) 94 04/21/19 11:20 118 29 100 Nasal Cannula 2.0 28 114 34 100 04/21/19 11:15 117 34 100 30 04/21/19 11:00 102 29 118/79 (92) 100 04/21/19 10:00 114 29 118/84 (95) 99 04/21/19 10:00 105 31 118/84 (95) 100 04/21/19 09:00 107 29 99/65 (76) 100 04/21/19 08:30 97.8 102 32 96/68 (77) 100 04/21/19 08:00 109 28 107/69 (82) 100 04/21/19 08:00 2.0 04/21/19 08:00 Nasal Cannula 2.0 04/21/19 07:59 110 04/21/19 07:00 110 31 105/64 (78) 100 2/18/20 06:54 109 28 100 Nasal Cannula 2.0 28 108 27 100 04/21/19 06:44 100 Nasal Cannula 6.0 28 04/21/19 06:00 109 26 117/75 (89) 100 04/21/19 05:00 111 22 105/70 (82) 99 04/21/19 04:00 Mechanical Ventilator 04/21/19 04:00 98.0 108 22 110/68 (82) 96 04/21/19 04:00 30 04/21/19 03:22 110 27 100 Bi-Pap 30 04/21/19 03:07 110 25 100 Bi-Pap 30 04/21/19 03:06 110 25 100 30 04/21/19 03:06 110 04/21/19 03:00 110 26 120/74 (89) 90 04/21/19 02:00 110 26 95/63 (74) 99 04/21/19 01:00 112 25 108/69 (82) 99 04/21/19 00:56 120 25 98 30 04/21/19 00:00 30 04/21/19 00:00 Mechanical Ventilator 04/21/19 00:00 98.9 110 26 97/67 (77) 100 04/20/19 23:28 118 31 99 Bi-Pap 30 04/20/19 23:26 110 04/20/19 23:08 117 30 99 Bi-Pap 30 04/20/19 23:02 117 30 99 30 04/20/19 23:00 117 29 126/75 (92) 100 04/20/19 22:00 116 29 107/62 (77) 100 04/20/19 21:00 123 21 132/63 (86) 100 04/20/19 20:00 Mechanical Ventilator 04/20/19 20:00 98.4 114 29 105/69 (81) 100 04/20/19 20:00 3.0 04/20/19 19:45 116 27 100 Nasal Cannula 3.0 32 04/20/19 19:32 117 04/20/19 19:30 110 25 100 Nasal Cannula 3.0 32 04/20/19 19:30 100 Nasal Cannula 3.0 32 04/20/19 19:00 81 160/90 (113) 93 04/20/19 18:00 102 18 108/73 (85) 100 04/20/19 17:00 109 34 109/67 (81) 100 2/17/20 16:00 Nasal Cannula 3.0 04/20/19 16:00 115 04/20/19 16:00 3.0 04/20/19 16:00 98.9 112 30 114/71 (85) 100 04/20/19 15:31 112 22 100 109 22 100 04/20/19 15:30 109 28 123/77 (92) 98 04/20/19 15:00 111 31 113/69 (84) 100 04/20/19 14:00 112 30 120/73 (89) 97 Intake and Output 04/20/19 04/21/19 18:59 06:59 Intake Total 660 ml 865.8 ml Output Total 415 ml 695 ml Balance 245 ml 170.8 ml IV Total 585.8 ml Tube Feeding 660 ml 220 ml Other 60 ml Output Urine Total 415 ml 695 ml # Bowel Movements 5 4 Laboratory Tests 04/21/19 04:55: White Blood Count 5.8, Red Blood Count 3.07L, Hemoglobin 9.0L, Hematocrit 25.9L , Mean Corpuscular Volume 84, Mean Corpuscular Hemoglobin 29.3, Mean Corpuscular Hemoglobin Concent 34.7, Red Cell Distribution Width 15.0H, Platelet Count 230, Mean Platelet Volume 4.4L, Neutrophils (%) (Auto) 71.7, Lymphocytes (%) (Auto) 13.6L, Monocytes (%) (Auto) 9.5, Eosinophils (%) (Auto) 4.3H, Basophils (%) (Auto) 0.8, Sodium Level 144, Potassium Level 3.2L, Chloride Level 109H, Carbon Dioxide Level 28, Anion Gap 7, Blood Urea Nitrogen 19H, Creatinine 1.5H, Estimat Glomerular Filtration Rate 55.8, Glucose Level 97 , Calcium Level 8.8 04/21/19 08:43: Arterial Blood pH 7.388, Arterial Blood Partial Pressure CO2 47.2H, Arterial Blood Partial Pressure O2 68.3L, Arterial Blood HCO3 27.8H, Arterial Blood Oxygen Saturation 93.4L, Arterial Blood Base Excess 2.4H, Antonio Test Positive 04/21/19 11:00: Arterial Blood pH 7.313L, Arterial Blood Partial Pressure CO2 57.7*H, Arterial Blood Partial Pressure O2 236.0H, Arterial Blood HCO3 28.6H, Arterial Blood Oxygen Saturation 98.9, Arterial Blood Base Excess 1.7, Antonio Test Positive Height (Feet): 5 Height (Inches): 7.00 Weight (Pounds): 167 General Appearance: lethargic EENT: normal ENT inspection Neck: normal alignment Cardiovascular: normal peripheral pulses, normal rate, regular rhythm Respiratory/Chest: chest wall non-tender, lungs clear, normal breath sounds Abdomen: normal bowel sounds, non tender, soft Extremities: normal inspection Edema: no edema noted Arm (L), no edema noted Arm (R), no edema noted Leg (L), no edema noted Leg (R), no edema noted Pedal (L), no edema noted Pedal (R), no edema noted Generalized Neurologic: motor weakness Skin: normal pigmentation, warm/dry Sawyer Toussaint DO Apr 21, 2019 13:54
--- NOTE | 2019-04-21 15:00 | NUR ---
NURSE NOTES: Attempted to reach pt's daughter in law, Amy, to obtain consent for EGD and possible PEG placement tomorrow. Voicemail was full. Will try back later.
[2019-04-21] MEDS ORDERED: NS 275ml ONE (15:28)
--- NOTE | 2019-04-21 16:00 | NUR ---
NURSE NOTES: Spoke to Amy, pt's daughter in law, states she will not give consent for any procedure until speaking with Dr. Lamb first. Dr Lamb informed.
--- NOTE | 2019-04-21 17:00 | Progress Note ---
DATE: 04/18/2019 SUBJECTIVE: This is a 73-year-old male patient with generalized weakness. This patient has altered mental status, confusion, decline in cognition below baseline, and he does have some off-and-on confusion and generalized weakness and decline in cognition below baseline that is why his attending has requested daily psychiatric consultation. DIAGNOSIS: Major depressive disorder, mild, recurrent with psychotic features. PLAN: Continue treatment and medications to stabilize his mood. Twenty minutes of cognitive behavioral therapy was provided and 20 minutes of reality-based supportive psychotherapy . He is very confused, disorganized, very irritable, lot of psychomotor agitation Ativan to calm down psychomotor agitation. Continue to be followed by Psychiatry. Continue working with this patient to stabilize his mood and reduce the level of psychomotor agitation. Chart was reviewed. Discussed with staff. Seen and assessed in his room. Cherise Palma M.D. DR: RYAN JOB#: [id number] CC:
--- NOTE | 2019-04-21 17:00 | Progress Note ---
DATE: 04/21/2019 SUBJECTIVE: This is a 73-year-old male patient with generalized weakness. This patient has altered mental status worsened by stress of his medical illness that is why his attending has requested daily psychiatric consultation as his cognition has declined below baseline. DIAGNOSIS: Major depressive disorder, mild, recurrent with psychotic features rule out dementia with psychosis. PLAN: Treat with Namenda 5 mg twice a day. A 20 minutes of cognitive behavioral therapy to help him identify his automatic negative thoughts and help convert negative thoughts to more positive thoughts to reduce depression, anxiety, mood lability. Chart reviewed. Discussed with staff. Seen and assessed at bedside. Cherise Palma M.D. DR: Alli JOB#: [id number] CC:
--- NOTE | 2019-04-21 17:05 | NUR ---
NURSE NOTES: Pt had a BM, was fully cleaned and repositioned. Pt remains on the BiPAP. No acute distress noted.
--- NOTE | 2019-04-21 17:57 | NUR ---
NURSE NOTES: Pt continues to be confused. Has been asking for coffee and tea, and sandwiches all day. When Pt told he isn't ready to eat yet due to his medical condition, Pt gets agitated and reports he has been eating all along, and "his girls" have been "fixing him up some food", yet it has been over a week since pt has eaten anything.
--- NOTE | 2019-04-21 19:00 | NUR ---
RESPIRATORY NOTE: Received pt on BiPAP 18/5, back up rate 14, 30%. Pt on a Facial mask, skin intact, no redness/breakdowns noted. Foam tape applied on pt's nosebridge/cheeks/chin to prevent mask irritations. Pt alert/awake, follows commands. B/S cleopatra. rales/rhonchi, nonproductive cough. BiPAP plugged into red outlet, alarms on & audible. Pt in no apparent distress at this time. Will continue to monitor pt.
--- NOTE | 2019-04-21 19:17 | NUR ---
HAND-OFF: Report given to BLANCA Grier.
--- NOTE | 2019-04-21 19:20 | NUR ---
NURSE NOTES: Received pt from BLANCA Goodson. pt is observed in bed, eyes open, AO X2, no s/sx of pain noted at this time. pt is on BiPAP with settings of 18/5, FiO2: 25%. pt tolerating well, no s/sx of respiratory distress noted. cafeteria monitor shows ST at this time, no acute cardiac distress noted. Bilateral soft wrist restraints noted, skin in surrounding areas intact, peripheral radial pulses present upon palpation. NGT noted in left nare, pt is NPO at this time. F/C is patent and intact, draining yellow urine at this time to gravity. skin alterations noted. RFA 22 g IV site noted to be leaking, will D/C. RH 22g IV site is patent and intact, asymptomatic. bed in lowest position and locked, siderails up X3, call light within reach. will continue to monitor.
[2019-04-21] MEDS: Dyna-Hex 2% Top Sol 2oz TOPIC SCH (20:00)
--- NOTE | 2019-04-21 20:00 | NUR ---
NURSE NOTES: NGT placement confirmed via auscultation. diminished lung sounds heard bilaterally upon auscultation. hypoactive bowel sounds heard in X4 quadrants upon auscultation. peripheral pulses present and bounding upon palpation.
[2019-04-21] MEDS: Tamsulosin 0.4mg cap ORAL SCH (20:26)
--- NOTE | 2019-04-21 22:16 | NUR ---
NURSE NOTES: all due meds given. bath given, new gown applied. restraints removed briefly to perform passive ROM. pt tolerated well. peripheral pulses present upon palpation. will continue to monitor.
[2019-04-22] VITALS (26 sets, daily range): BP systolic 97–133; BP diastolic 62–82
--- NOTE | 2019-04-22 00:05 | NUR ---
NURSE NOTES: pt continues to have bouts of confusion. pt continues to ask for food. explained to pt that he is NPO status at this time. will continue to monitor.
--- NOTE | 2019-04-22 02:00 | NUR ---
NURSE NOTES: pt removed BiPAP. BiPAP reapplied to pt. saturation 98% at this time. pt repositioned in bed. bilateral soft wrist restraints removed briefly; passive ROM performed, surrounding skin intact, no swelling noted. reapplied restraints and reiterated to pt that he is on restraints d/t self-removal of BiPAP. will continue to monitor pt.
[2019-04-22] MEDS: Acetylcysteine 20% Soln 4ml HHN SCH ×6 (03:00→22:55)
[2019-04-22] MEDS: Albuterol/Ipratropium 3ml neb HHN SCH ×6 (03:00→22:55)
--- NOTE | 2019-04-22 04:00 | NUR ---
NURSE NOTES: pt given 2nd bath. dressings dry and intact. IV fluids changed and kept at TKO. will continue to monitor.
[2019-04-22 05:37] LABS: BASOPHILS % (AUTO) 1.4 % (0.0-2.0); EOSINOPHILS % (AUTO) 5.2 % (0.0-3.0); HEMATOCRIT 25.5 % (42.0-52.0); HEMOGLOBIN 8.6 G/DL (14.2-18.0); LYMPHOCYTES % (AUTO) 13.7 % (20.0-45.0); MEAN CORPUSCULAR VOLUME 84 FL (80-99); MONOCYTES % (AUTO) 10.5 % (1.0-10.0); NEUTROPHILS % (AUTO) 69.3 % (45.0-75.0); PLATELET COUNT 266 K/UL (150-450); RED BLOOD COUNT 3.04 M/UL (4.70-6.10); RED CELL DISTRIBUTION WIDTH 14.7 % (11.6-14.8); WHITE BLOOD COUNT 4.6 K/UL (4.8-10.8)
[2019-04-22 05:58] LABS: INR 1.1 (0.9-1.1)
--- NOTE | 2019-04-22 06:00 | NUR ---
NURSE NOTES: guerra catheter irrigated as ordered per MD. pt tolerated well. will continue to monitor.
[2019-04-22 06:02] LABS: ANION GAP 9 mmol/L (5-15); BLOOD UREA NITROGEN 17 mg/dL (7-18); CALCIUM 8.7 MG/DL (8.5-10.1); CARBON DIOXIDE 26 MMOL/L (21-32); CHLORIDE 110 MMOL/L (98-107); CREATININE 1.4 MG/DL (0.55-1.30); POTASSIUM 3.3 MMOL/L (3.5-5.1); SODIUM 145 MMOL/L (136-145)
--- NOTE | 2019-04-22 07:15 | NUR ---
HAND-OFF: Report given to RN. Kellee pt endorsed plan of care. Addendum: 04/22/19 at 0719 by OSIRIS MCCLOUD RN RN Report given to RN. Kellee pt in stable condition. endorsed plan of care.
--- NOTE | 2019-04-22 07:16 | NUR ---
NURSE NOTES: Received pt from BLANCA Grier. pt is observed in laying in bed, with eyes open, AO X2, no s/s of pain noted at this time. pt received on NC, however quickly placed on BiPAP with settings of 18/5, FiO2: 30%, d/t pt feeling SOB. monitoring analyst shows ST. Bilateral soft wrist restraints noted, skin in surrounding areas intact, peripheral radial pulses present upon palpation. NGT noted in left nare, pt is NPO at this time. Morales catheter is patent and intact, draining yellow urine to urometer. RH 22g IV site is patent and intact, asymptomatic. bed locked and in lowest position, side rails up X3, call light within reach. will resume plan of care.
--- NOTE | 2019-04-22 07:53 | Pulmonology Progress Note ---
Assessment/Plan Assessment/Plan IMPRESSION: 1. Status post asystolic cardiac arrest. Again on 04/13/19 2. Respiratory failure, re-intubated; and now extubated 04/20/19 3. Altered mental status. Resolved 4. Hypernatremia. Corrected. 5. Hypokalemia . Corrected. 6. History of COPD. 7. Prostate CA. DISCUSSION: 1. Discussed with cardiology and PMD 2. Discussed with daughter in law (James), son (Abdoul) and sister 3. Doing well post extubation 5. Dc diuretics 6. Transfused CXR looking better; Needs PEG; would not advise PO diet again REmains intermittently on BiPAP Ganesh Mathews M.D. Subjective Interval Events: On BHiPAP last night; off this Am Constitutional: Reports: no symptoms HEENT: Repors: no symptoms Respiratory: Reports: no symptoms Cardiovascular: Reports: no symptoms Gastrointestinal/Abdominal: Reports: no symptoms Allergies: Coded Allergies: No Known Allergies (Unverified , 04/03/19) Objective Last 24 Hour Vital Signs Date Time Temp Pulse Resp B/P (MAP) Pulse Ox O2 Delivery O2 Flow Rate FiO2 04/22/19 07:00 102 23 120/76 (91) 100 04/22/19 06:00 93 19 104/79 (87) 99 04/22/19 05:00 104 25 99 30 04/22/19 05:00 102 18 107/71 (83) 100 04/22/19 04:00 97.4 103 22 104/71 (82) 100 04/22/19 04:00 105 04/22/19 04:00 Bi-pap 25.0 04/22/19 04:00 25 04/22/19 03:10 105 24 100 Bi-Pap 30 04/22/19 03:00 108 28 99 30 04/22/19 03:00 107 22 111/76 (88) 98 04/22/19 03:00 108 28 99 Bi-Pap 30 04/22/19 02:00 106 28 105/73 (84) 96 04/22/19 01:00 110 24 113/73 (86) 99 2/19/20 00:43 105 22 99 30 2/19/20 00:00 105 2/19/20 00:00 25 2/19/20 00:00 Bi-pap 25.0 2/20 00:00 98.2 99 22 97/64 (75) 100 2/18/20 23:11 103 24 100 Bi-Pap 30 218/20 23:00 105 26 117/76 (90) 99 105 2/18/20 23:00 111 26 100 Bi-Pap 30 218/20 23:00 111 26 100 30 2/18/20 22:00 104 21 109/70 (83) 100 104 104 2/18/20 21:00 99 22 96/75 (82) 100 218/20 20:45 99 24 100 30 2/18/20 20:00 25 218/20 20:00 97.6 109 24 111/77 (88) 98 2/18/20 20:00 112 21820 20:00 Bi-pap 25.0 2 19:07 108 24 100 Bi-Pap 30 20 19:00 107 21 121/75 (90) 100 218/20 18:57 100 Bi-Pap 30 04/21/20 18:57 111 25 100 30 218/20 18:57 111 25 100 Bi-Pap 30 18/20 18:00 105 23 117/72 (87) 100 218/20 17:01 97 17 100 30 218/20 17:00 98 17 104/69 (81) 100 21820 16:36 113/72 21820 16:00 98.1 100 21 110/79 (89) 98 2/18/20 16:00 25 218/20 16:00 Bi-pap 25.0 218/20 15:23 97 2/18/20 15:00 100 19 110/70 (83) 99 2/18/20 14:40 107 27 100 Bi-Pap 30 104 23 96 30 2/18/20 14:00 106 26 125/87 (100) 98 2/18/20 13:00 98 20 108/69 (82) 100 2/18/20 12:00 Bi-pap 25.0 2/18/20 12:00 97 2/18/20 12:00 25 2/18/20 12:00 98.1 109 19 106/78 (87) 94 04/21/19 11:20 118 29 100 Nasal Cannula 2.0 28 114 34 100 04/21/19 11:15 117 34 100 30 04/21/19 11:00 102 29 118/79 (92) 100 04/21/19 10:00 114 29 118/84 (95) 99 04/21/19 10:00 105 31 118/84 (95) 100 04/21/19 09:00 107 29 99/65 (76) 100 04/21/19 08:30 97.8 102 32 96/68 (77) 100 04/21/19 08:00 109 28 107/69 (82) 100 04/21/19 08:00 2.0 04/21/19 08:00 Nasal Cannula 2.0 04/21/19 07:59 110 Intake and Output 04/21/19 04/22/19 19:00 07:00 Intake Total 690 ml Output Total 660 ml 475 ml Balance 30 ml -475 ml IV Total 355 ml Tube Feeding 275 ml Other 60 ml Output Urine Total 660 ml 425 ml Other 50 ml # Bowel Movements 4 General Appearance: no acute distress HEENT: normocephalic Respiratory/Chest: chest wall non-tender, normal breath sounds Cardiovascular: normal peripheral pulses Abdomen: normal bowel sounds Laboratory Tests 04/21/19 08:43: Arterial Blood pH 7.388, Arterial Blood Partial Pressure CO2 47.2H, Arterial Blood Partial Pressure O2 68.3L, Arterial Blood HCO3 27.8H, Arterial Blood Oxygen Saturation 93.4L, Arterial Blood Base Excess 2.4H, Antonio Test Positive 04/21/19 11:00: Arterial Blood pH 7.313L, Arterial Blood Partial Pressure CO2 57.7*H, Arterial Blood Partial Pressure O2 236.0H, Arterial Blood HCO3 28.6H, Arterial Blood Oxygen Saturation 98.9, Arterial Blood Base Excess 1.7, Antonio Test Positive 04/22/19 04:30: White Blood Count 4.6L, Red Blood Count 3.04L, Hemoglobin 8.6L, Hematocrit 25.5L , Mean Corpuscular Volume 84, Mean Corpuscular Hemoglobin 28.3, Mean Corpuscular Hemoglobin Concent 33.7, Red Cell Distribution Width 14.7, Platelet Count 266, Mean Platelet Volume 4.8L, Neutrophils (%) (Auto) 69.3, Lymphocytes ( %) (Auto) 13.7L, Monocytes (%) (Auto) 10.5H, Eosinophils (%) (Auto) 5.2H, Basophils (%) (Auto) 1.4, Prothrombin Time 12.1H, Prothromb Time International Ratio 1.1, Sodium Level 145, Potassium Level 3.3L, Chloride Level 110H, Carbon Dioxide Level 26, Anion Gap 9, Blood Urea Nitrogen 17, Creatinine 1.4H, Estimat Glomerular Filtration Rate > 60, Glucose Level 83, Calcium Level 8.7 Current Medications Medications (Trade) Dose Ordered Sig/La Nena Route PRN Reason Start Time Stop Time Status Last Admin Dose Admin Acetylcysteine (Mucomyst) 200 mg Q4HRT [facility] 04/18/19 11:00 05/18/19 10:59 04/22/19 06:57 Albuterol/ Ipratropium (Albuterol/ Ipratropium) 3 ml Q4HRT N 04/18/19 11:00 04/23/19 10:59 04/22/19 06:57 Cefepime HCl 1 gm/ Dextrose 55 ml @ 110 mls/hr Q24H IVPB 04/21/19 12:00 04/28/19 11:59 04/21/19 13:07 Chlorhexidine Gluconate (Martha-Hex 2%) 1 applic DAILY@2000 TOPIC 04/18/19 20:00 05/18/19 19:59 04/19/19 20:11 Enoxaparin Sodium (Lovenox) 30 mg DAILY SUBQ 04/14/19 09:00 05/04/19 08:59 04/19/19 08:37 Hydralazine HCl (Apresoline) 10 mg Q4H PRN IV SBP > 170mmHg 04/13/19 15:00 05/08/19 14:59 Lansoprazole (Prevacid) 30 mg DAILY ORAL 04/14/19 09:00 05/13/19 08:59 04/21/19 08:33 Lorazepam (Ativan 2mg/ml 1ml) 1 mg Q6H PRN IV For Anxiety 04/17/19 18:15 04/24/19 18:14 04/19/19 02:34 Memantine (Namenda) 5 mg BID ORAL 04/13/19 18:00 05/04/19 17:59 04/21/19 17:00 Norepinephrine Bitartrate 4 mg/ Dextrose 250 ml @ 0 mls/hr Q24H IV 04/13/19 17:00 05/13/19 16:59 04/14/19 22:57 Tamsulosin HCl (Flomax) 0.4 mg BEDTIME ORAL 04/13/19 21:00 05/13/19 20:59 04/21/19 20:26 Ganesh Mathews MD Apr 22, 2019 07:53
[2019-04-22] MEDS: Memantine 5 MG TAB ORAL SCH ×2 (08:06→17:11)
[2019-04-22] MEDS: Enoxaparin 30mg Inj SUBQ SCH (08:07)
--- NOTE | 2019-04-22 08:21 | Nephrology Progress Note ---
Assessment/Plan Status: unchanged Assessment/Plan: A/P 1. LETA. resolved. Cr 1.3-1.5 2. Prostate cancer with elevated PSA 3. Hypokalemia- replace prn basis 4. Sepsis and UTI mgmt per ID 5. Hypernatremia- corrected 6. Hypercalcemia of malignancy- s/p pamidronate and calcitonin. Ca 8.8 7. Resp FL- on BiPAP Subjective Date patient seen: Apr 22, 2019 Time patient seen: 08:19 ROS Limited/Unobtainable: Yes Allergies: Coded Allergies: No Known Allergies (Unverified , 04/03/19) Subjective Patient on BiPAP. slightly agitated Objective Last 24 Hour Vital Signs Date Time Temp Pulse Resp B/P (MAP) Pulse Ox O2 Delivery O2 Flow Rate FiO2 04/22/19 08:00 97.8 94 18 112/65 (81) 100 94 04/22/19 08:00 30 04/22/19 07:57 100 Bi-Pap 30 04/22/19 07:07 105 25 100 Nasal Cannula 2.0 28 102 24 100 04/22/19 07:00 102 23 120/76 (91) 100 04/22/19 06:00 93 19 104/79 (87) 99 04/22/19 05:00 104 25 99 30 04/22/19 05:00 102 18 107/71 (83) 100 04/22/19 04:00 97.4 103 22 104/71 (82) 100 04/22/19 04:00 105 04/22/19 04:00 Bi-pap 25.0 04/22/19 04:00 25 04/22/19 03:10 105 24 100 Bi-Pap 30 04/22/19 03:00 108 28 99 30 04/22/19 03:00 107 22 111/76 (88) 98 04/22/19 03:00 108 28 99 Bi-Pap 30 04/22/19 02:00 106 28 105/73 (84) 96 04/22/19 01:00 110 24 113/73 (86) 99 04/22/19 00:43 105 22 99 30 04/22/19 00:00 105 04/22/19 00:00 25 04/22/19 00:00 Bi-pap 25.0 04/22/19 00:00 98.2 99 22 97/64 (75) 100 2/18/20 23:11 103 24 100 Bi-Pap 30 2/18/20 23:00 105 26 117/76 (90) 99 105 2/18/20 23:00 111 26 100 Bi-Pap 30 218/20 23:00 111 26 100 30 2/18/20 22:00 104 21 109/70 (83) 100 104 104 2/18/20 21:00 99 22 96/75 (82) 100 2/18/20 20:45 99 24 100 30 2/18/20 20:00 25 2/18/20 20:00 97.6 109 24 111/77 (88) 98 2/18/20 20:00 112 2/18/20 20:00 Bi-pap 25.0 218/20 19:07 108 24 100 Bi-Pap 30 218/20 19:00 107 21 121/75 (90) 100 218/20 18:57 100 Bi-Pap 30 04/21/20 18:57 111 25 100 30 218/20 18:57 111 25 100 Bi-Pap 30 20 18:00 105 23 117/72 (87) 100 218/20 17:01 97 17 100 30 218/20 17:00 98 17 104/69 (81) 100 218/20 16:36 113/72 218/20 16:00 98.1 100 21 110/79 (89) 98 2/18/20 16:00 25 218/20 16:00 Bi-pap 25.0 218/20 15:23 97 218/20 15:00 100 19 110/70 (83) 99 218/20 14:40 107 27 100 Bi-Pap 30 104 23 96 30 218/20 14:00 106 26 125/87 (100) 98 2/18/20 13:00 98 20 108/69 (82) 100 218/20 12:00 Bi-pap 25.0 218/20 12:00 97 2/18/20 12:00 25 2/18/20 12:00 98.1 109 19 106/78 (87) 94 2/18/20 11:20 118 29 100 Nasal Cannula 2.0 28 114 34 100 218/20 11:15 117 34 100 30 2/18/20 11:00 102 29 118/79 (92) 100 04/21/19 10:00 114 29 118/84 (95) 99 04/21/19 10:00 105 31 118/84 (95) 100 04/21/19 09:00 107 29 99/65 (76) 100 04/21/19 08:30 97.8 102 32 96/68 (77) 100 Intake and Output 04/21/19 04/22/19 19:00 07:00 Intake Total 690 ml Output Total 660 ml 475 ml Balance 30 ml -475 ml IV Total 355 ml Tube Feeding 275 ml Other 60 ml Output Urine Total 660 ml 425 ml Other 50 ml # Bowel Movements 4 Laboratory Tests 04/21/19 08:43: Arterial Blood pH 7.388, Arterial Blood Partial Pressure CO2 47.2H, Arterial Blood Partial Pressure O2 68.3L, Arterial Blood HCO3 27.8H, Arterial Blood Oxygen Saturation 93.4L, Arterial Blood Base Excess 2.4H, Antonio Test Positive 04/21/19 11:00: Arterial Blood pH 7.313L, Arterial Blood Partial Pressure CO2 57.7*H, Arterial Blood Partial Pressure O2 236.0H, Arterial Blood HCO3 28.6H, Arterial Blood Oxygen Saturation 98.9, Arterial Blood Base Excess 1.7, Antonio Test Positive 04/22/19 04:30: White Blood Count 4.6L, Red Blood Count 3.04L, Hemoglobin 8.6L, Hematocrit 25.5L , Mean Corpuscular Volume 84, Mean Corpuscular Hemoglobin 28.3, Mean Corpuscular Hemoglobin Concent 33.7, Red Cell Distribution Width 14.7, Platelet Count 266, Mean Platelet Volume 4.8L, Neutrophils (%) (Auto) 69.3, Lymphocytes ( %) (Auto) 13.7L, Monocytes (%) (Auto) 10.5H, Eosinophils (%) (Auto) 5.2H, Basophils (%) (Auto) 1.4, Prothrombin Time 12.1H, Prothromb Time International Ratio 1.1, Sodium Level 145, Potassium Level 3.3L, Chloride Level 110H, Carbon Dioxide Level 26, Anion Gap 9, Blood Urea Nitrogen 17, Creatinine 1.4H, Estimat Glomerular Filtration Rate > 60, Glucose Level 83, Calcium Level 8.7 Height (Feet): 5 Height (Inches): 7.00 Weight (Pounds): 167 General Appearance: no apparent distress, alert EENT: normal ENT inspection Neck: normal alignment Cardiovascular: normal rate, regular rhythm Respiratory/Chest: rhonchi - bilaterally Abdomen: non tender, soft Edema: no edema noted Arm (L), no edema noted Arm (R), no edema noted Leg (L), no edema noted Leg (R), no edema noted Pedal (L), no edema noted Pedal (R), no edema noted Generalized Carlos White MD Apr 22, 2019 08:21
--- NOTE | 2019-04-22 08:56 | Urology Progress Note ---
Assessment/Plan Status: unchanged Assessment/Plan: 1. 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 2. Urinary retention. 3. Acute kidney injury, improved. 4. Hydronephrosis, likely chronic. 5. Proteinuria. 6. UTI and colonization. 7. Hematuria. monitor clinically maintain guerra, last replaced 04/10 hand irrigated and do PRN position is satisfactory monitor renal fxn, labile likely obst of bilateral distal ureters secondary to advanced prostate ca will need to see how aggressive pt and family want to be renal fxn improved with the new guerra consider ureteral stents or nephrostomies? flomax added s/p abx may need to hold lovenox voiding trial at some point? d/w nursing staff Subjective Allergies: Coded Allergies: No Known Allergies (Unverified , 04/03/19) Subjective all noted, still in ICU, extubated, bipap Objective Last 24 Hour Vital Signs Date Time Temp Pulse Resp B/P (MAP) Pulse Ox O2 Delivery O2 Flow Rate FiO2 04/22/19 08:00 Bi-pap 30.0 04/22/19 08:00 97.8 94 18 112/65 (81) 100 94 04/22/19 08:00 30 04/22/19 07:57 100 Bi-Pap 30 04/22/19 07:07 105 25 100 Nasal Cannula 2.0 28 102 24 100 04/22/19 07:00 102 23 120/76 (91) 100 04/22/19 06:00 93 19 104/79 (87) 99 04/22/19 05:00 104 25 99 30 04/22/19 05:00 102 18 107/71 (83) 100 04/22/19 04:00 97.4 103 22 104/71 (82) 100 04/22/19 04:00 105 04/22/19 04:00 Bi-pap 25.0 04/22/19 04:00 25 04/22/19 03:10 105 24 100 Bi-Pap 30 04/22/19 03:00 108 28 99 30 04/22/19 03:00 107 22 111/76 (88) 98 04/22/19 03:00 108 28 99 Bi-Pap 30 04/22/19 02:00 106 28 105/73 (84) 96 04/22/19 01:00 110 24 113/73 (86) 99 2/19/20 00:43 105 22 99 30 2/19/20 00:00 105 2/19/20 00:00 25 2/19/20 00:00 Bi-pap 25.0 2/19/20 00:00 98.2 99 22 97/64 (75) 100 2/18/20 23:11 103 24 100 Bi-Pap 30 2/18/20 23:00 105 26 117/76 (90) 99 105 2/18/20 23:00 111 26 100 Bi-Pap 30 218/20 23:00 111 26 100 30 2/18/20 22:00 104 21 109/70 (83) 100 104 104 2/18/20 21:00 99 22 96/75 (82) 100 2/18/20 20:45 99 24 100 30 218/20 20:00 25 2/18/20 20:00 97.6 109 24 111/77 (88) 98 2/18/20 20:00 112 21820 20:00 Bi-pap 25.0 220 19:07 108 24 100 Bi-Pap 30 218/20 19:00 107 21 121/75 (90) 100 2/18/20 18:57 100 Bi-Pap 30 18/20 18:57 111 25 100 30 2/18/20 18:57 111 25 100 Bi-Pap 30 218/20 18:00 105 23 117/72 (87) 100 2/18/20 17:01 97 17 100 30 218/20 17:00 98 17 104/69 (81) 100 218/20 16:36 113/72 218/20 16:00 98.1 100 21 110/79 (89) 98 2/18/20 16:00 25 2/18/20 16:00 Bi-pap 25.0 218/20 15:23 97 2/18/20 15:00 100 19 110/70 (83) 99 2/18/20 14:40 107 27 100 Bi-Pap 30 104 23 96 30 2/18/20 14:00 106 26 125/87 (100) 98 2/18/20 13:00 98 20 108/69 (82) 100 2/18/20 12:00 Bi-pap 25.0 2/18/20 12:00 97 2/18/20 12:00 25 04/21/19 12:00 98.1 109 19 106/78 (87) 94 04/21/19 11:20 118 29 100 Nasal Cannula 2.0 28 114 34 100 04/21/19 11:15 117 34 100 30 04/21/19 11:00 102 29 118/79 (92) 100 04/21/19 10:00 114 29 118/84 (95) 99 04/21/19 10:00 105 31 118/84 (95) 100 04/21/19 09:00 107 29 99/65 (76) 100 Intake and Output 04/21/19 04/22/19 19:00 07:00 Intake Total 690 ml Output Total 660 ml 475 ml Balance 30 ml -475 ml IV Total 355 ml Tube Feeding 275 ml Other 60 ml Output Urine Total 660 ml 425 ml Other 50 ml # Bowel Movements 4 Microbiology Date/Time Source Procedure Growth Status 04/14/19 12:45 Blood Blood Culture - Final NO GROWTH AFTER 5 DAYS Complete 04/15/19 21:40 Sputum Gram Stain - Final Complete 04/15/19 21:40 Sputum Sputum Culture - Final NORMAL UPPER RESPIRATORY DAVID PRESENT Complete 04/18/19 17:00 Stool Clostridium difficile Toxin Assay - Final Complete 04/14/19 11:25 Urine,Random Urine Culture - Final NO GROWTH AFTER 48 HOURS Complete Current Medications Medications (Trade) Dose Ordered Sig/La Nena Route PRN Reason Start Time Stop Time Status Last Admin Dose Admin Acetylcysteine (Mucomyst) 200 mg Q4HRT [facility] 04/18/19 11:00 05/18/19 10:59 04/22/19 06:57 Albuterol/ Ipratropium (Albuterol/ Ipratropium) 3 ml Q4HRT [facility] 04/18/19 11:00 04/23/19 10:59 04/22/19 06:57 Cefepime HCl 1 gm/ Dextrose 55 ml @ 110 mls/hr Q24H IVPB 04/21/19 12:00 04/28/19 11:59 04/21/19 13:07 Chlorhexidine Gluconate (Martha-Hex 2%) 1 applic DAILY@2000 TOPIC 04/18/19 20:00 05/18/19 19:59 04/19/19 20:11 Enoxaparin Sodium (Lovenox) 30 mg DAILY SUBQ 04/14/19 09:00 05/04/19 08:59 04/22/19 08:07 Hydralazine HCl (Apresoline) 10 mg Q4H PRN IV SBP > 170mmHg 04/13/19 15:00 05/08/19 14:59 Lansoprazole (Prevacid) 30 mg DAILY ORAL 04/14/19 09:00 05/13/19 08:59 04/22/19 08:06 Lorazepam (Ativan 2mg/ml 1ml) 1 mg Q6H PRN IV For Anxiety 04/17/19 18:15 04/24/19 18:14 04/19/19 02:34 Memantine (Namenda) 5 mg BID ORAL 04/13/19 18:00 05/04/19 17:59 04/22/19 08:06 Norepinephrine Bitartrate 4 mg/ Dextrose 250 ml @ 0 mls/hr Q24H IV 04/13/19 17:00 05/13/19 16:59 04/14/19 22:57 Potassium Chloride 100 ml @ 100 mls/hr Q1H IVPB 04/22/19 09:00 04/22/19 10:59 Tamsulosin HCl (Flomax) 0.4 mg BEDTIME ORAL 04/13/19 21:00 05/13/19 20:59 04/21/19 20:26 Laboratory Tests 04/21/19 11:00: Arterial Blood pH 7.313L, Arterial Blood Partial Pressure CO2 57.7*H, Arterial Blood Partial Pressure O2 236.0H, Arterial Blood HCO3 28.6H, Arterial Blood Oxygen Saturation 98.9, Arterial Blood Base Excess 1.7, Antonio Test Positive 04/22/19 04:30: White Blood Count 4.6L, Red Blood Count 3.04L, Hemoglobin 8.6L, Hematocrit 25.5L , Mean Corpuscular Volume 84, Mean Corpuscular Hemoglobin 28.3, Mean Corpuscular Hemoglobin Concent 33.7, Red Cell Distribution Width 14.7, Platelet Count 266, Mean Platelet Volume 4.8L, Neutrophils (%) (Auto) 69.3, Lymphocytes ( %) (Auto) 13.7L, Monocytes (%) (Auto) 10.5H, Eosinophils (%) (Auto) 5.2H, Basophils (%) (Auto) 1.4, Prothrombin Time 12.1H, Prothromb Time International Ratio 1.1, Sodium Level 145, Potassium Level 3.3L, Chloride Level 110H, Carbon Dioxide Level 26, Anion Gap 9, Blood Urea Nitrogen 17, Creatinine 1.4H, Estimat Glomerular Filtration Rate > 60, Glucose Level 83, Calcium Level 8.7 Height (Feet): 5 Height (Inches): 7.00 Weight (Pounds): 167 Objective exam stable guerra indwelling, yellow/allegra urine CT A/P (04/10) noted Raz Root MD Apr 22, 2019 08:56
--- NOTE | 2019-04-22 09:00 | NUR ---
NURSE NOTES: Pt had a large loose BM, was fully cleaned and repositioned. Oral care performed. No distress noted at this time.
--- NOTE | 2019-04-22 09:02 | General Progress Note ---
Assessment/Plan Problem List: (1) UTI (urinary tract infection) ICD Codes: N39.0 - Urinary tract infection, site not specified SNOMED: 45076890 (2) Weak ICD Codes: R53.1 - Weakness SNOMED: 84339277 (3) Anemia ICD Codes: D64.9 - Anemia, unspecified SNOMED: 881667869 (4) Dehydration ICD Codes: E86.0 - Dehydration SNOMED: 29847287, 19199994 (5) Episode of generalized weakness ICD Codes: R53.1 - Weakness SNOMED: 83776535 (6) Stage III adenocarcinoma of prostate ICD Codes: C61 - Malignant neoplasm of prostate SNOMED: 903636895, 15798423 Status: unchanged Assessment/Plan: o2 pulm tx pt diet abx iv fluid heme gi eval cbc bmp am Subjective Constitutional: Reports: weakness Allergies: Coded Allergies: No Known Allergies (Unverified , 04/03/19) All Systems: reviewed and negative except above Subjective o2 mask in icu Objective Last 24 Hour Vital Signs Date Time Temp Pulse Resp B/P (MAP) Pulse Ox O2 Delivery O2 Flow Rate FiO2 04/22/19 08:00 Bi-pap 30.0 04/22/19 08:00 97.8 94 18 112/65 (81) 100 94 04/22/19 08:00 30 04/22/19 07:57 100 Bi-Pap 30 04/22/19 07:07 105 25 100 Nasal Cannula 2.0 28 102 24 100 04/22/19 07:00 102 23 120/76 (91) 100 04/22/19 06:00 93 19 104/79 (87) 99 04/22/19 05:00 104 25 99 30 04/22/19 05:00 102 18 107/71 (83) 100 04/22/19 04:00 97.4 103 22 104/71 (82) 100 04/22/19 04:00 105 04/22/19 04:00 Bi-pap 25.0 04/22/19 04:00 25 04/22/19 03:10 105 24 100 Bi-Pap 30 04/22/19 03:00 108 28 99 30 04/22/19 03:00 107 22 111/76 (88) 98 04/22/19 03:00 108 28 99 Bi-Pap 30 04/22/19 02:00 106 28 105/73 (84) 96 220 01:00 110 24 113/73 (86) 99 220 00:43 105 22 99 30 2/20 00:00 105 2/20 00:00 25 2/20 00:00 Bi-pap 25.0 220 00:00 98.2 99 22 97/64 (75) 100 21820 23:11 103 24 100 Bi-Pap 30 20 23:00 105 26 117/76 (90) 99 105 2/18/20 23:00 111 26 100 Bi-Pap 30 220 23:00 111 26 100 30 218/20 22:00 104 21 109/70 (83) 100 104 104 1820 21:00 99 22 96/75 (82) 100 21820 20:45 99 24 100 30 218/20 20:00 25 220 20:00 97.6 109 24 111/77 (88) 98 21820 20:00 112 04/21/19 20:00 Bi-pap 25.0 2 19:07 108 24 100 Bi-Pap 30 20 19:00 107 21 121/75 (90) 100 21820 18:57 100 Bi-Pap 30 04/21/19 18:57 111 25 100 30 218/20 18:57 111 25 100 Bi-Pap 30 18/20 18:00 105 23 117/72 (87) 100 21820 17:01 97 17 100 30 218/20 17:00 98 17 104/69 (81) 100 218/20 16:36 113/72 21820 16:00 98.1 100 21 110/79 (89) 98 218/20 16:00 25 218/20 16:00 Bi-pap 25.0 218/20 15:23 97 2/18/20 15:00 100 19 110/70 (83) 99 2/18/20 14:40 107 27 100 Bi-Pap 30 104 23 96 30 218/20 14:00 106 26 125/87 (100) 98 2/18/20 13:00 98 20 108/69 (82) 100 2/18/20 12:00 Bi-pap 25.0 04/21/19 12:00 97 04/21/19 12:00 25 04/21/19 12:00 98.1 109 19 106/78 (87) 94 04/21/19 11:20 118 29 100 Nasal Cannula 2.0 28 114 34 100 04/21/19 11:15 117 34 100 30 04/21/19 11:00 102 29 118/79 (92) 100 04/21/19 10:00 114 29 118/84 (95) 99 04/21/19 10:00 105 31 118/84 (95) 100 Intake and Output 04/21/19 04/22/19 19:00 07:00 Intake Total 690 ml Output Total 660 ml 475 ml Balance 30 ml -475 ml IV Total 355 ml Tube Feeding 275 ml Other 60 ml Output Urine Total 660 ml 425 ml Other 50 ml # Bowel Movements 4 Laboratory Tests 04/21/19 11:00: Arterial Blood pH 7.313L, Arterial Blood Partial Pressure CO2 57.7*H, Arterial Blood Partial Pressure O2 236.0H, Arterial Blood HCO3 28.6H, Arterial Blood Oxygen Saturation 98.9, Arterial Blood Base Excess 1.7, Antonio Test Positive 04/22/19 04:30: White Blood Count 4.6L, Red Blood Count 3.04L, Hemoglobin 8.6L, Hematocrit 25.5L , Mean Corpuscular Volume 84, Mean Corpuscular Hemoglobin 28.3, Mean Corpuscular Hemoglobin Concent 33.7, Red Cell Distribution Width 14.7, Platelet Count 266, Mean Platelet Volume 4.8L, Neutrophils (%) (Auto) 69.3, Lymphocytes ( %) (Auto) 13.7L, Monocytes (%) (Auto) 10.5H, Eosinophils (%) (Auto) 5.2H, Basophils (%) (Auto) 1.4, Prothrombin Time 12.1H, Prothromb Time International Ratio 1.1, Sodium Level 145, Potassium Level 3.3L, Chloride Level 110H, Carbon Dioxide Level 26, Anion Gap 9, Blood Urea Nitrogen 17, Creatinine 1.4H, Estimat Glomerular Filtration Rate > 60, Glucose Level 83, Calcium Level 8.7 Height (Feet): 5 Height (Inches): 7.00 Weight (Pounds): 167 General Appearance: lethargic EENT: normal ENT inspection Neck: normal alignment Cardiovascular: normal peripheral pulses, normal rate, regular rhythm Respiratory/Chest: chest wall non-tender, lungs clear, normal breath sounds Abdomen: normal bowel sounds, non tender, soft Extremities: normal inspection Edema: no edema noted Arm (L), no edema noted Arm (R), no edema noted Leg (L), no edema noted Leg (R), no edema noted Pedal (L), no edema noted Pedal (R), no edema noted Generalized Neurologic: motor weakness Skin: normal pigmentation, warm/dry Sawyer Toussaint DO Apr 22, 2019 09:02
--- NOTE | 2019-04-22 10:55 | NUR ---
RESPIRATORY NOTE: Patient refused ABG at this time. RN notified.
--- NOTE | 2019-04-22 11:00 | NUR ---
NURSE NOTES: Spoke to Amy, pt's daughter in law, and updated her on pt's current condition. Pt ordered to get a Rt thoracentesis; however, US tech stated that there is more fluid on the Lt side. Left message for Dr. Mathews to clarify.
--- NOTE | 2019-04-22 11:01 | General Progress Note ---
Assessment/Plan Status: unchanged Assessment/Plan: Assessment/Plan Problems: (1) Coffee ground emesis (2) Anemia (3) metastatic prostate CA (4) respiratory failure extubated in the ICU NGTF will resume ppi PEG was canceled due to patient being on BIPAP will plan when patient is more stable will fu Subjective ROS Limited/Unobtainable: No Allergies: Coded Allergies: No Known Allergies (Unverified , 04/03/19) Objective Last 24 Hour Vital Signs Date Time Temp Pulse Resp B/P (MAP) Pulse Ox O2 Delivery O2 Flow Rate FiO2 04/22/19 10:51 97 19 100 Bi-Pap 30 30 04/22/19 09:20 95 20 100 30 04/22/19 09:00 111 25 124/62 (82) 100 04/22/19 08:00 Bi-pap 30.0 04/22/19 08:00 97.8 94 18 112/65 (81) 100 94 04/22/19 08:00 30 04/22/19 07:57 100 Bi-Pap 30 04/22/19 07:07 105 25 100 Nasal Cannula 2.0 28 102 24 100 04/22/19 07:00 102 23 120/76 (91) 100 04/22/19 06:00 93 19 104/79 (87) 99 04/22/19 05:00 104 25 99 30 04/22/19 05:00 102 18 107/71 (83) 100 04/22/19 04:00 97.4 103 22 104/71 (82) 100 04/22/19 04:00 105 04/22/19 04:00 Bi-pap 25.0 04/22/19 04:00 25 04/22/19 03:10 105 24 100 Bi-Pap 30 04/22/19 03:00 108 28 99 30 04/22/19 03:00 107 22 111/76 (88) 98 04/22/19 03:00 108 28 99 Bi-Pap 30 04/22/19 02:00 106 28 105/73 (84) 96 04/22/19 01:00 110 24 113/73 (86) 99 04/22/19 00:43 105 22 99 30 04/22/19 00:00 105 04/22/19 00:00 25 04/22/19 00:00 Bi-pap 25.0 2/19/20 00:00 98.2 99 22 97/64 (75) 100 2/18/20 23:11 103 24 100 Bi-Pap 30 218/20 23:00 105 26 117/76 (90) 99 105 2/18/20 23:00 111 26 100 Bi-Pap 30 218/20 23:00 111 26 100 30 2/18/20 22:00 104 21 109/70 (83) 100 104 104 218/20 21:00 99 22 96/75 (82) 100 218/20 20:45 99 24 100 30 2/18/20 20:00 25 2/18/20 20:00 97.6 109 24 111/77 (88) 98 218/20 20:00 112 220 20:00 Bi-pap 25.0 2 19:07 108 24 100 Bi-Pap 30 20 19:00 107 21 121/75 (90) 100 218/20 18:57 100 Bi-Pap 30 04/21/19 18:57 111 25 100 30 218/20 18:57 111 25 100 Bi-Pap 30 04/21/20 18:00 105 23 117/72 (87) 100 218/20 17:01 97 17 100 30 18/20 17:00 98 17 104/69 (81) 100 1820 16:36 113/72 218/20 16:00 98.1 100 21 110/79 (89) 98 218/20 16:00 25 220 16:00 Bi-pap 25.0 1820 15:23 97 218/20 15:00 100 19 110/70 (83) 99 2/18/20 14:40 107 27 100 Bi-Pap 30 104 23 96 30 218/20 14:00 106 26 125/87 (100) 98 2/18/20 13:00 98 20 108/69 (82) 100 218/20 12:00 Bi-pap 25.0 218/20 12:00 97 2/18/20 12:00 25 218/20 12:00 98.1 109 19 106/78 (87) 94 21820 11:20 118 29 100 Nasal Cannula 2.0 28 114 34 100 218/20 11:15 117 34 100 30 04/21/19 11:00 102 29 118/79 (92) 100 Intake and Output 04/21/19 04/22/19 19:00 07:00 Intake Total 690 ml Output Total 660 ml 475 ml Balance 30 ml -475 ml IV Total 355 ml Tube Feeding 275 ml Other 60 ml Output Urine Total 660 ml 425 ml Other 50 ml # Bowel Movements 4 Laboratory Tests 04/21/19 11:00: Arterial Blood pH 7.313L, Arterial Blood Partial Pressure CO2 57.7*H, Arterial Blood Partial Pressure O2 236.0H, Arterial Blood HCO3 28.6H, Arterial Blood Oxygen Saturation 98.9, Arterial Blood Base Excess 1.7, Antonio Test Positive 04/22/19 04:30: White Blood Count 4.6L, Red Blood Count 3.04L, Hemoglobin 8.6L, Hematocrit 25.5L , Mean Corpuscular Volume 84, Mean Corpuscular Hemoglobin 28.3, Mean Corpuscular Hemoglobin Concent 33.7, Red Cell Distribution Width 14.7, Platelet Count 266, Mean Platelet Volume 4.8L, Neutrophils (%) (Auto) 69.3, Lymphocytes ( %) (Auto) 13.7L, Monocytes (%) (Auto) 10.5H, Eosinophils (%) (Auto) 5.2H, Basophils (%) (Auto) 1.4, Prothrombin Time 12.1H, Prothromb Time International Ratio 1.1, Sodium Level 145, Potassium Level 3.3L, Chloride Level 110H, Carbon Dioxide Level 26, Anion Gap 9, Blood Urea Nitrogen 17, Creatinine 1.4H, Estimat Glomerular Filtration Rate > 60, Glucose Level 83, Calcium Level 8.7 Height (Feet): 5 Height (Inches): 7.00 Weight (Pounds): 167 General Appearance: lethargic EENT: normal ENT inspection Neck: supple Cardiovascular: normal rate Respiratory/Chest: decreased breath sounds Abdomen: normal bowel sounds, non tender, soft Extremities: non-tender Tyrone Lamb MD Apr 22, 2019 11:01
--- NOTE | 2019-04-22 11:01 | Infectious Diseases Prog Note ---
Assessment/Plan Assessment/Plan Assessment: s/p bradycardia>cardiac arrest 04/13 VDRF 04/13; sp extubation 04/19 Shock, recurrent- off pressors -04/20 CXR: Interim extubation. Increased left greater than right pleural fluid s/p asystole cardiac arrest 04/06 VDRF; s/p extubation 04/08 Probable PNA -04/21 CXR:Shifting infiltrates on the right, with increased hazy midlung infiltrate, improved right basilar consolidation or atelectasis or pleural fluid. Slightly increased generalized mild interstitial congestion. Stable large left pleural effusion Low grade fever; SP Mild leukocytosis, recurrent- SP -04/15 sp cx normal resp sharyn (prelim) -04/14 u/a wbc 10-15, nit neg, leuk +3; ucx NTD CXR: Interim development of complete right upper lobe atelectasis. Nonspecific diffuse hazy left lung opacity, likely mild pulmonary edema. -04/07 Bcx NTD u/a wbc tnct, nit neg, leuk +; ucx neg -04/06 CXR: Interval resolution of right apical density. This suggests the diagnosis was atelectasis rather than an apical cap from blood, which was suggested as a possibility on the prior report. The right upper lobe atelectasis has resolved. Suspicion of new atelectasis at the right lung base. Sepsis UTI B/l hydroureteronephrosis -04/10 CT abd/p: Evidence of advanced metastatic neoplasm likely secondary to prostate carcinoma. Extensive retroperitoneal and pelvic lymphadenopathy complicated by presence of bilateral hydroureteronephrosis. Extensive metastatic disease involving the bones also noted. Small left pleural effusion. Right trace right pleural effusion. Right inguinal hernia containing a small amount of fluid. Alternatively this could represent part of the testis. Anasarca. -u/a wbc 20-30, nit +, leuk +3; ucx >100k E.coli (R amp, bactrim; otherwise S) Probable Aspiration pneumonitis vs PNA -04/08 CXR: Patchy perihilar disease which may be asymmetric interstitial edema or infiltrate unchanged. Interval resolution of right basal atelectasis. -04/07 sp cx normal sharyn(prelim) s/p recent fall LETA Hypokalemia prostate CA stage IV, mets to bone chronic indwelling guerra catheter Plan: -Continue Cefepime #/ for probable PNA -2/14 SP Vanc IV #4 -2/10 SP Ceftriaxone #4 - 2/7 Sp ZOsyn #4 -2/6 SP IV Vancomycin #3 -2/4 SP Ceftriaxone #4 -f/u cx -Monitor CBC/CMP, temperatures -aspiration precautions -Cards, renal, Uro, pulm f/u -ICU care -poor px- consider re-evaluation of goals of care- ?Hospice Thank you for this consultation. Will continue to follow along with you. Subjective Allergies: Coded Allergies: No Known Allergies (Unverified , 04/03/19) Subjective afebrile no leukocytosis on bipap Objective Vital Signs Last 24 Hour Vital Signs Date Time Temp Pulse Resp B/P (MAP) Pulse Ox O2 Delivery O2 Flow Rate FiO2 04/22/19 10:51 97 19 100 Bi-Pap 30 30 04/22/19 09:20 95 20 100 30 04/22/19 09:00 111 25 124/62 (82) 100 04/22/19 08:00 Bi-pap 30.0 04/22/19 08:00 97.8 94 18 112/65 (81) 100 94 04/22/19 08:00 30 04/22/19 07:57 100 Bi-Pap 30 04/22/19 07:07 105 25 100 Nasal Cannula 2.0 28 102 24 100 04/22/19 07:00 102 23 120/76 (91) 100 04/22/19 06:00 93 19 104/79 (87) 99 04/22/19 05:00 104 25 99 30 04/22/19 05:00 102 18 107/71 (83) 100 04/22/19 04:00 97.4 103 22 104/71 (82) 100 04/22/19 04:00 105 04/22/19 04:00 Bi-pap 25.0 04/22/19 04:00 25 04/22/19 03:10 105 24 100 Bi-Pap 30 04/22/19 03:00 108 28 99 30 04/22/19 03:00 107 22 111/76 (88) 98 04/22/19 03:00 108 28 99 Bi-Pap 30 04/22/19 02:00 106 28 105/73 (84) 96 04/22/19 01:00 110 24 113/73 (86) 99 04/22/19 00:43 105 22 99 30 2/19/20 00:00 105 2/19/20 00:00 25 2/19/20 00:00 Bi-pap 25.0 2/20 00:00 98.2 99 22 97/64 (75) 100 21820 23:11 103 24 100 Bi-Pap 30 21820 23:00 105 26 117/76 (90) 99 105 2/18/20 23:00 111 26 100 Bi-Pap 30 220 23:00 111 26 100 30 218/20 22:00 104 21 109/70 (83) 100 104 104 2/1820 21:00 99 22 96/75 (82) 100 21820 20:45 99 24 100 30 2/20 20:00 25 220 20:00 97.6 109 24 111/77 (88) 98 21820 20:00 112 220 20:00 Bi-pap 25.0 2 19:07 108 24 100 Bi-Pap 30 04/21/19 19:00 107 21 121/75 (90) 100 218/20 18:57 100 Bi-Pap 30 04/21/20 18:57 111 25 100 30 218/20 18:57 111 25 100 Bi-Pap 30 20 18:00 105 23 117/72 (87) 100 218/20 17:01 97 17 100 30 218/20 17:00 98 17 104/69 (81) 100 218/20 16:36 113/72 220 16:00 98.1 100 21 110/79 (89) 98 218/20 16:00 25 218/20 16:00 Bi-pap 25.0 218/20 15:23 97 2/18/20 15:00 100 19 110/70 (83) 99 218/20 14:40 107 27 100 Bi-Pap 30 104 23 96 30 218/20 14:00 106 26 125/87 (100) 98 2/18/20 13:00 98 20 108/69 (82) 100 2/18/20 12:00 Bi-pap 25.0 218/20 12:00 97 2/18/20 12:00 25 2/18/20 12:00 98.1 109 19 106/78 (87) 94 04/21/19 11:20 118 29 100 Nasal Cannula 2.0 28 114 34 100 04/21/19 11:15 117 34 100 30 Height (Feet): 5 Height (Inches): 7.00 Weight (Pounds): 167 Objective General Appearance: normal inspection, alert, Chronically Ill ENT: bipap mask on place Neck: normal inspection, full range of motion, supple, no bony tend Respiratory: normal inspection, lungs clear, no wheezing Cardiovascular # regular rate, rhythm, no edema Gastrointestinal: normal inspection, normal bowel sounds, non tender, soft, no guardinga Musculoskeletal: normal inspection, back normal, normal range of motion Skin: no rash Laboratory Tests Test 04/22/19 04:30 White Blood Count 4.6 K/UL (4.8-10.8) L Red Blood Count 3.04 M/UL (4.70-6.10) L Hemoglobin 8.6 G/DL (14.2-18.0) L Hematocrit 25.5 % (42.0-52.0) L Mean Corpuscular Volume 84 FL (80-99) Mean Corpuscular Hemoglobin 28.3 PG (27.0-31.0) Mean Corpuscular Hemoglobin Concent 33.7 G/DL (32.0-36.0) Red Cell Distribution Width 14.7 % (11.6-14.8) Platelet Count 266 K/UL (150-450) Mean Platelet Volume 4.8 FL (6.5-10.1) L Neutrophils (%) (Auto) 69.3 % (45.0-75.0) Lymphocytes (%) (Auto) 13.7 % (20.0-45.0) L Monocytes (%) (Auto) 10.5 % (1.0-10.0) H Eosinophils (%) (Auto) 5.2 % (0.0-3.0) H Basophils (%) (Auto) 1.4 % (0.0-2.0) Prothrombin Time 12.1 SEC (9.30-11.50) H Prothromb Time International Ratio 1.1 (0.9-1.1) Sodium Level 145 MMOL/L (136-145) Potassium Level 3.3 MMOL/L (3.5-5.1) L Chloride Level 110 MMOL/L (98-107) H Carbon Dioxide Level 26 MMOL/L (21-32) Anion Gap 9 mmol/L (5-15) Blood Urea Nitrogen 17 mg/dL (7-18) Creatinine 1.4 MG/DL (0.55-1.30) H Estimat Glomerular Filtration Rate > 60 mL/min (>60) Glucose Level 83 MG/DL (74-106) Calcium Level 8.7 MG/DL (8.5-10.1) Current Medications Medications (Trade) Dose Ordered Sig/[place]ena Route PRN Reason Start Time Stop Time Status Last Admin Dose Admin Acetylcysteine (Mucomyst) 200 mg Q4HRT N 04/18/19 11:00 05/18/19 10:59 04/22/19 10:48 Albuterol/ Ipratropium (Albuterol/ Ipratropium) 3 ml Q4HRT N 04/18/19 11:00 04/23/19 10:59 04/22/19 10:48 Cefepime HCl 1 gm/ Dextrose 55 ml @ 110 mls/hr Q24H IVPB 04/21/19 12:00 04/28/19 11:59 04/21/19 13:07 Chlorhexidine Gluconate (Martha-Hex 2%) 1 applic DAILY@2000 TOPIC 04/18/19 20:00 05/18/19 19:59 04/19/19 20:11 Enoxaparin Sodium (Lovenox) 30 mg DAILY SUBQ 04/14/19 09:00 05/04/19 08:59 04/22/19 08:07 Hydralazine HCl (Apresoline) 10 mg Q4H PRN IV SBP > 170mmHg 04/13/19 15:00 05/08/19 14:59 Lansoprazole (Prevacid) 30 mg DAILY ORAL 04/14/19 09:00 05/13/19 08:59 04/22/19 08:06 Lorazepam (Ativan 2mg/ml 1ml) 1 mg Q6H PRN IV For Anxiety 04/17/19 18:15 04/24/19 18:14 04/19/19 02:34 Memantine (Namenda) 5 mg BID ORAL 04/13/19 18:00 05/04/19 17:59 04/22/19 08:06 Norepinephrine Bitartrate 4 mg/ Dextrose 250 ml @ 0 mls/hr Q24H IV 04/13/19 17:00 05/13/19 16:59 04/14/19 22:57 Tamsulosin HCl (Flomax) 0.4 mg BEDTIME ORAL 04/13/19 21:00 05/13/19 20:59 04/21/19 20:26 Rafia Nielson M.D. Apr 22, 2019 11:01
--- NOTE | 2019-04-22 11:10 | NUR ---
NURSE NOTES: Pt scheduled for PEG insertion today;however, Dr Lamb informed inspector automatic typewriter that procedure will be postponed d/t pt being on a BiPAP.
--- NOTE | 2019-04-22 11:30 | NUR ---
NURSE NOTES: Spoke to Dr Mathews and gave him Amy's phone number, pt's daughter in law, as she will not give consent for thoracentesis without speaking to MD first.
[2019-04-22] MEDS: Cefepime HCl 1 GM in D5W 55 ML IVPB SCH (12:09)
--- NOTE | 2019-04-22 12:10 | NUR ---
NURSE NOTES: Left hand #22g PIV noted to be leaking. PIV removed and new PIV inserted on the Right FA #20g. Pt tolerated well.
--- NOTE | 2019-04-22 13:11 | Cardiac Electrophysiology PN ---
Assessment/Plan Assessment/Plan 1. Status post 2 non infarctional separate juan antonio arrest with asystole. Both episodes happened in the setting of respiratory failure and off the Vent No evidence of ventricular tachycardia or ventricular fibrillation. Off any GARCÍA or AVN olivia EF 65%. All 3 troponins were less than 0.1. Watch for recurrence of bradycardia 2. Recurrent Respiratory failure, extubated 04/08/19 and reintubated 04/13/19 and rextubated 04/19/19 Back on BIPAP 3. History of stage III prostate cancer, followed by Dr. Monroy and Dr Root. Morales was changed. Follows up at [facility] 4. Shock. Off Levophed on iv Abx. 5. Hypercalcemia due to prostate cancer. 6. Hypernatremia. 7. Anemia, s/p PRBC 04/08/19. Hb 7 again. S/P1 unit PRBC 8. Low K. Replace 9. Dysphagia, PEG by Dr Lamb pending consent 10. Pleural effusion, awaiting consent for Thoracentesis MIKE RN Subjective Subjective In ICU back on BIPAP. No juan antonio yet. NGT feeding. No consent for thoracentesis or PEG yet Objective Last 24 Hour Vital Signs Date Time Temp Pulse Resp B/P (MAP) Pulse Ox O2 Delivery O2 Flow Rate FiO2 04/22/19 12:38 97 04/22/19 12:00 Bi-pap 30.0 04/22/19 12:00 97.2 101 19 115/77 (90) 100 04/22/19 12:00 30 04/22/19 11:00 99 21 106/69 (81) 100 04/22/19 10:51 97 19 100 Bi-Pap 30 30 04/22/19 10:00 101 19 113/74 (87) 95 04/22/19 09:20 95 20 100 30 04/22/19 09:00 111 25 124/62 (82) 100 04/22/19 08:00 Bi-pap 30.0 04/22/19 08:00 97.8 94 18 112/65 (81) 100 94 04/22/19 08:00 30 04/22/19 07:57 100 Bi-Pap 30 04/22/19 07:45 118 04/22/19 07:07 105 25 100 Nasal Cannula 2.0 28 102 24 100 04/22/19 07:00 102 23 120/76 (91) 100 2 06:00 93 19 104/79 (87) 99 2 05:00 104 25 99 30 2 05:00 102 18 107/71 (83) 100 2 04:00 97.4 103 22 104/71 (82) 100 04/22/19 04:00 105 04/22/19 04:00 Bi-pap 25.0 04/22/19 04:00 25 04/22/19 03:10 105 24 100 Bi-Pap 30 04/22/19 03:00 108 28 99 30 04/22/19 03:00 107 22 111/76 (88) 98 04/22/19 03:00 108 28 99 Bi-Pap 30 04/22/19 02:00 106 28 105/73 (84) 96 04/22/19 01:00 110 24 113/73 (86) 99 04/22/19 00:43 105 22 99 30 04/22/19 00:00 105 04/22/19 00:00 25 04/22/19 00:00 Bi-pap 25.0 04/22/19 00:00 98.2 99 22 97/64 (75) 100 2/18/20 23:11 103 24 100 Bi-Pap 30 20 23:00 105 26 117/76 (90) 99 105 2/1820 23:00 111 26 100 Bi-Pap 30 20 23:00 111 26 100 30 218/20 22:00 104 21 109/70 (83) 100 104 104 21820 21:00 99 22 96/75 (82) 100 218/20 20:45 99 24 100 30 2/18/20 20:00 25 2/18/20 20:00 97.6 109 24 111/77 (88) 98 2/18/20 20:00 112 2/18/20 20:00 Bi-pap 25.0 218/20 19:07 108 24 100 Bi-Pap 30 2/18/20 19:00 107 21 121/75 (90) 100 2/18/20 18:57 100 Bi-Pap 30 218/20 18:57 111 25 100 30 2/18/20 18:57 111 25 100 Bi-Pap 30 2/18/20 18:00 105 23 117/72 (87) 100 04/21/19 17:01 97 17 100 30 04/21/19 17:00 98 17 104/69 (81) 100 04/21/19 16:36 113/72 04/21/19 16:00 98.1 100 21 110/79 (89) 98 04/21/19 16:00 25 04/21/19 16:00 Bi-pap 25.0 04/21/19 15:23 97 04/21/19 15:00 100 19 110/70 (83) 99 04/21/19 14:40 107 27 100 Bi-Pap 30 104 23 96 30 04/21/19 14:00 106 26 125/87 (100) 98 Intake and Output 04/21/19 04/22/19 19:00 07:00 Intake Total 690 ml Output Total 660 ml 475 ml Balance 30 ml -475 ml IV Total 355 ml Tube Feeding 275 ml Other 60 ml Output Urine Total 660 ml 425 ml Other 50 ml # Bowel Movements 4 Laboratory Tests Test 04/22/19 04:30 White Blood Count 4.6 K/UL (4.8-10.8) L Red Blood Count 3.04 M/UL (4.70-6.10) L Hemoglobin 8.6 G/DL (14.2-18.0) L Hematocrit 25.5 % (42.0-52.0) L Mean Corpuscular Volume 84 FL (80-99) Mean Corpuscular Hemoglobin 28.3 PG (27.0-31.0) Mean Corpuscular Hemoglobin Concent 33.7 G/DL (32.0-36.0) Red Cell Distribution Width 14.7 % (11.6-14.8) Platelet Count 266 K/UL (150-450) Mean Platelet Volume 4.8 FL (6.5-10.1) L Neutrophils (%) (Auto) 69.3 % (45.0-75.0) Lymphocytes (%) (Auto) 13.7 % (20.0-45.0) L Monocytes (%) (Auto) 10.5 % (1.0-10.0) H Eosinophils (%) (Auto) 5.2 % (0.0-3.0) H Basophils (%) (Auto) 1.4 % (0.0-2.0) Prothrombin Time 12.1 SEC (9.30-11.50) H Prothromb Time International Ratio 1.1 (0.9-1.1) Sodium Level 145 MMOL/L (136-145) Potassium Level 3.3 MMOL/L (3.5-5.1) L Chloride Level 110 MMOL/L (98-107) H Carbon Dioxide Level 26 MMOL/L (21-32) Anion Gap 9 mmol/L (5-15) Blood Urea Nitrogen 17 mg/dL (7-18) Creatinine 1.4 MG/DL (0.55-1.30) H Estimat Glomerular Filtration Rate > 60 mL/min (>60) Glucose Level 83 MG/DL (74-106) Calcium Level 8.7 MG/DL (8.5-10.1) Objective HEENT: No JVD. BIPAP is on LUNGS: Coarse rhonchi. CARDIOVASCULAR: Regular S1 and S2 ABDOMEN: Soft and nondistended. EXTREMITIES: No pitting edema. Nain Cortez MD Apr 22, 2019 13:11
--- NOTE | 2019-04-22 13:30 | NUR ---
NURSE NOTES: Pt cleaned and repositioned. Pt remains on BiPAP, tolerating well, O2sat 100%, no complaints of SOB. Clary from radiology notified radio script writer that after radiologist spoke to Amy, pt's daughter in law, Amy refused to have procedure done today and said she would need to think about it.
--- NOTE | 2019-04-22 15:20 | NUR ---
NURSE NOTES: Pt assessed at bedside with wound care nurse. Pt has a sacral wound. Therahoney applied to wound and surrounding skin covered with triad cream and optifoam. Will consult Dr Acevedo, as ordered by .
--- NOTE | 2019-04-22 15:41 | Hematology/Onc Progress Note ---
Assessment/Plan Assessment/Plan # Prostate cancer stage IV with psa >700, cr is worse, hydronephrosis noted, seen by renal, Dr. White. --> i did received records from [facility]. has regional lymphadenopathy, s/p transrectal biopsy with Gleasons 5+5 (2010) in all cores, apparently has had a 3 year course of androgen deprivation from 2011- 2014.also status post RADIATION to the prostate, then lost to followup. Following surviellance psa 0.45-->65, in 10/2016, and up to 127 in 12/2016, Ct scan showed recurrence of disease with lad but no bony mets, started on lupron 01/2017, psa fell yo 73-->46, has been sarted on zytiga + prednisone, and now psa progression on zytiga, he started xtandi in 01/2019 Psa 87. He did not go through urethral stenting, he has deferred treatment with chemo. --> He is a very poor historian, I have talked to the sister --> imaging has been noted --> as per urology recs, reviewed --> have called , no answer, trans to [facility]? --> poor prognosis given above history of treatment, defer transfer to [facility] --> psa 737-->757 --> CT ABD 04/10: Evidence of advanced metastatic neoplasm likely secondary to prostate carcinoma. Extensive retroperitoneal and pelvic lymphadenopathy complicated by presence of bilateral hydroureteronephrosis. Extensive metastatic disease involving the bones also noted. Status post seed implant radiation therapy to the prostate gland. # Hypercalcemia -- now acutely worse --> trend Ca++ 8.1-->13-->12-->10.3-->10.7-->13.2 -->11-->10.5 --> ivf has been started --> as per nephrology --> calcitonin was given # Anemia due to underlying malignancy --> hgb trend as needed 9.2-->7-->10.9-->11-->9.7-->8.1-->8.6 --> no hemolysis is noted --> no bleeding --> blood tx: 04/18, # Episode of generalized weakness --> on ivf --> pt as needed # Pleural effusion --> no consent for peg # Hypokalemia --> replete prn # Dehydration --> on ivf # Atrophic changes without evident intracranial hemorrhage. --> as per neuro, remains confused # Respiratory failure s/p vent now ext --> on bipap++ # Hypernatremia as well as low BUN --> on ivf # Poor prognosis # Dvt ppx lovenox sq Appreciate consultation and Nicholas Rn Subjective HEENT: Denies: no symptoms, eye pain, blurred vision, tearing, double vision, ear pain, ear discharge, nose pain, nose congestion, throat pain, throat swelling, mouth pain, mouth swelling, other Cardiovascular: Denies: no symptoms, chest pain, edema, irregular heart rate, lightheadedness, palpitations, syncope, other Respiratory: Denies: no symptoms, cough, shortness of breath, SOB with excertion, SOB at rest, sputum, wheezing, other Gastrointestinal/Abdominal: Denies: no symptoms, abdomen distended, abdominal pain, black stools, tarry stools, blood in stool, constipated, diarrhea, difficulty swallowing, nausea, poor appetite, poor fluid intake, rectal bleeding , vomiting, other Genitourinary: Denies: no symptoms, burning, discharge, frequency, flank pain, hematuria, incontinence, pain, urgency, other Endocrine: Denies: no symptoms, excessive sweating, flushing, intolerance to cold, intolerance to heat, increased hunger, increased thirst, increased urine, unexplained weight gain, unexplained weight loss, other Hematologic/Lymphatic: Denies: no symptoms, anemia, easy bleeding, easy bruising, adenopathy, other Allergies: Coded Allergies: No Known Allergies (Unverified , 04/03/19) Subjective 2/3: no events, apparently intubated today and transferred to the icu, will dw family 04/07: remains in the icu, critically ill, Ca++ 12, on vent, minimally responsive , on dopa, dw pcp and pulm 04/08: no major changes, no night sweats, labs have been reviewed, dw daughter, he is more alert 04/10: awake, no acute events ct abd reviewed, stool ob negative 04/12: labs reviewed, nc, tachy, ceftriaxone, no sob 04/13: lethargic, nc 3l, no acute distress, labs reviewed 04/14: Ca++ remains elev 13.2, De Amy aware, on calcitonin, on lovenox 04/15: no major changes, remains intubated, seen by cards, renal, pulm, dw Kellie, kcl ordered 04/16: tolerating meds well, no bleeding, on vent, is on simv mode, nicholas Pacheco Rn 04/17: icu, vent, h/h stable, no acute events, on cefepime 04/19: remains in icu and intubated, s/p blood, hgb 8.6, c diff negative 04/20: on bipap, hgb 8.6, no major changes, in icu, requires peg 04/21: urine is red tinged this am, of vent, with nc, no bleeding, labs noted 04/22: no major changes, no bleeding r chils, no consent for procedures Objective Objective Current Medications Medications (Trade) Dose Ordered Sig/La Nena Route PRN Reason Start Time Stop Time Status Last Admin Dose Admin Acetylcysteine (Mucomyst) 200 mg Q4HRT N 04/18/19 11:00 05/18/19 10:59 04/22/19 15:11 Albuterol/ Ipratropium (Albuterol/ Ipratropium) 3 ml Q4HRT HHN 04/18/19 11:00 04/23/19 10:59 04/22/19 15:11 Cefepime HCl 1 gm/ Dextrose 55 ml @ 110 mls/hr Q24H IVPB 04/21/19 12:00 04/28/19 11:59 04/22/19 12:09 Chlorhexidine Gluconate (Martha-Hex 2%) 1 applic DAILY@2000 TOPIC 04/18/19 20:00 05/18/19 19:59 04/19/19 20:11 Enoxaparin Sodium (Lovenox) 30 mg DAILY SUBQ 04/14/19 09:00 05/04/19 08:59 04/22/19 08:07 Hydralazine HCl (Apresoline) 10 mg Q4H PRN IV SBP > 170mmHg 04/13/19 15:00 05/08/19 14:59 Lansoprazole (Prevacid) 30 mg DAILY ORAL 04/14/19 09:00 05/13/19 08:59 2/19/20 08:06 Lorazepam (Ativan 2mg/ml 1ml) 1 mg Q6H PRN IV For Anxiety 04/17/19 18:15 04/24/19 18:14 04/19/19 02:34 Memantine (Namenda) 5 mg BID ORAL 04/13/19 18:00 05/04/19 17:59 04/22/19 08:06 Norepinephrine Bitartrate 4 mg/ Dextrose 250 ml @ 0 mls/hr Q24H IV 04/13/19 17:00 05/13/19 16:59 04/14/19 22:57 Tamsulosin HCl (Flomax) 0.4 mg BEDTIME ORAL 04/13/19 21:00 05/13/19 20:59 04/21/19 20:26 Last 24 Hour Vital Signs Date Time Temp Pulse Resp B/P (MAP) Pulse Ox O2 Delivery O2 Flow Rate FiO2 04/22/19 15:12 95 16 95 Bi-Pap 30 30 04/22/19 15:00 104 19 118/74 (89) 100 04/22/19 14:00 101 20 113/74 (87) 100 04/22/19 13:19 97 15 98 30 04/22/19 13:00 104 18 113/77 (89) 100 04/22/19 12:38 97 04/22/19 12:00 Bi-pap 30.0 04/22/19 12:00 97.2 101 19 115/77 (90) 100 04/22/19 12:00 30 04/22/19 11:00 99 21 106/69 (81) 100 04/22/19 10:51 97 19 100 Bi-Pap 30 30 04/22/19 10:00 101 19 113/74 (87) 95 04/22/19 09:20 95 20 100 30 04/22/19 09:00 111 25 124/62 (82) 100 04/22/19 08:00 Bi-pap 30.0 04/22/19 08:00 97.8 94 18 112/65 (81) 100 94 04/22/19 08:00 30 04/22/19 07:57 100 Bi-Pap 30 04/22/19 07:45 118 04/22/19 07:07 105 25 100 Nasal Cannula 2.0 28 102 24 100 04/22/19 07:00 102 23 120/76 (91) 100 2 06:00 93 19 104/79 (87) 99 220 05:00 104 25 99 30 2 05:00 102 18 107/71 (83) 100 2 04:00 97.4 103 22 104/71 (82) 100 04/22/19 04:00 105 04/22/19 04:00 Bi-pap 25.0 04/22/19 04:00 25 04/22/19 03:10 105 24 100 Bi-Pap 30 04/22/19 03:00 108 28 99 30 04/22/19 03:00 107 22 111/76 (88) 98 2 03:00 108 28 99 Bi-Pap 30 04/22/19 02:00 106 28 105/73 (84) 96 04/22/19 01:00 110 24 113/73 (86) 99 04/22/19 00:43 105 22 99 30 04/22/19 00:00 105 04/22/19 00:00 25 04/22/19 00:00 Bi-pap 25.0 04/22/19 00:00 98.2 99 22 97/64 (75) 100 21820 23:11 103 24 100 Bi-Pap 30 04/21/19 23:00 105 26 117/76 (90) 99 105 21820 23:00 111 26 100 Bi-Pap 30 1820 23:00 111 26 100 30 218/20 22:00 104 21 109/70 (83) 100 104 104 220 21:00 99 22 96/75 (82) 100 21820 20:45 99 24 100 30 2/18/20 20:00 25 218/20 20:00 97.6 109 24 111/77 (88) 98 2/18/20 20:00 112 218/20 20:00 Bi-pap 25.0 218/20 19:07 108 24 100 Bi-Pap 30 2/18/20 19:00 107 21 121/75 (90) 100 2/18/20 18:57 100 Bi-Pap 30 218/20 18:57 111 25 100 30 2/18/20 18:57 111 25 100 Bi-Pap 30 2/18/20 18:00 105 23 117/72 (87) 100 04/21/19 17:01 97 17 100 30 04/21/19 17:00 98 17 104/69 (81) 100 20 16:36 113/72 04/21/19 16:00 98.1 100 21 110/79 (89) 98 04/21/19 16:00 25 04/21/19 16:00 Bi-pap 25.0 04/21/19 15:23 97 04/21/19 15:00 100 19 110/70 (83) 99 04/21/19 14:40 107 27 100 Bi-Pap 30 104 23 96 30 04/21/19 14:00 106 26 125/87 (100) 98 04/21/19 13:00 98 20 108/69 (82) 100 04/21/19 12:00 Bi-pap 25.0 04/21/19 12:00 97 04/21/19 12:00 25 04/21/19 12:00 98.1 109 19 106/78 (87) 94 04/21/19 11:20 118 29 100 Nasal Cannula 2.0 28 114 34 100 04/21/19 11:15 117 34 100 30 04/21/19 11:00 102 29 118/79 (92) 100 04/21/19 10:00 114 29 118/84 (95) 99 04/21/19 10:00 105 31 118/84 (95) 100 04/21/19 09:00 107 29 99/65 (76) 100 04/21/19 08:30 97.8 102 32 96/68 (77) 100 04/21/19 08:00 109 28 107/69 (82) 100 04/21/19 08:00 2.0 04/21/19 08:00 Nasal Cannula 2.0 04/21/19 07:59 110 04/21/19 07:00 110 31 105/64 (78) 100 04/21/19 06:54 109 28 100 Nasal Cannula 2.0 28 108 27 100 04/21/19 06:44 100 Nasal Cannula 6.0 28 04/21/19 06:00 109 26 117/75 (89) 100 04/21/19 05:00 111 22 105/70 (82) 99 04/21/19 04:00 Mechanical Ventilator 04/21/19 04:00 98.0 108 22 110/68 (82) 96 04/21/19 04:00 30 04/21/19 03:22 110 27 100 Bi-Pap 30 04/21/19 03:07 110 25 100 Bi-Pap 30 04/21/19 03:06 110 25 100 30 04/21/19 03:06 110 04/21/19 03:00 110 26 120/74 (89) 90 04/21/19 02:00 110 26 95/63 (74) 99 04/21/19 01:00 112 25 108/69 (82) 99 04/21/19 00:56 120 25 98 30 04/21/19 00:00 30 04/21/19 00:00 Mechanical Ventilator 04/21/19 00:00 98.9 110 26 97/67 (77) 100 04/20/19 23:28 118 31 99 Bi-Pap 30 04/20/19 23:26 110 04/20/19 23:08 117 30 99 Bi-Pap 30 04/20/19 23:02 117 30 99 30 04/20/19 23:00 117 29 126/75 (92) 100 04/20/19 22:00 116 29 107/62 (77) 100 04/20/19 21:00 123 21 132/63 (86) 100 04/20/19 20:00 Mechanical Ventilator 04/20/19 20:00 98.4 114 29 105/69 (81) 100 04/20/19 20:00 3.0 04/20/19 19:45 116 27 100 Nasal Cannula 3.0 32 04/20/19 19:32 117 04/20/19 19:30 110 25 100 Nasal Cannula 3.0 32 04/20/19 19:30 100 Nasal Cannula 3.0 32 04/20/19 19:00 81 160/90 (113) 93 04/20/19 18:00 102 18 108/73 (85) 100 04/20/19 17:00 109 34 109/67 (81) 100 04/20/19 16:00 Nasal Cannula 3.0 04/20/19 16:00 115 04/20/19 16:00 3.0 04/20/19 16:00 98.9 112 30 114/71 (85) 100 Intake and Output 04/21/19 04/22/19 19:00 07:00 Intake Total 690 ml Output Total 660 ml 475 ml Balance 30 ml -475 ml IV Total 355 ml Tube Feeding 275 ml Other 60 ml Output Urine Total 660 ml 425 ml Other 50 ml # Bowel Movements 4 Labs Test 04/19/19 19:39 04/19/19 21:30 04/20/19 07:50 04/20/19 10:48 Arterial Blood pH 7.094 (7.350-7.450) 7.258 (7.350-7.450) 7.316 (7.350-7.450) Arterial Blood Partial Pressure CO2 91.8 mmHg (35.0-45.0) 63.9 mmHg (35.0-45.0) 52.4 mmHg (35.0-45.0) Arterial Blood Partial Pressure O2 57.7 mmHg (75.0-100.0) 379.5 mmHg (75.0-100.0) 93.1 mmHg (75.0-100.0) Arterial Blood HCO3 27.5 mmol/L (22.0-26.0) 27.9 mmol/L (22.0-26.0) 26.1 mmol/L (22.0-26.0) Arterial Blood Oxygen Saturation 83.1 % (95-100) 99.2 % (95-100) 96.3 % (95-100) Arterial Blood Base Excess -3.7 (-2-2) 0.1 (-2-2) -0.4 (-2-2) Antonio Test Positive Positive Positive Sodium Level 145 MMOL/L (136-145) Potassium Level 3.7 MMOL/L (3.5-5.1) Chloride Level 111 MMOL/L (98-107) Carbon Dioxide Level 28 MMOL/L (21-32) Anion Gap 6 mmol/L (5-15) Blood Urea Nitrogen 19 mg/dL (7-18) Creatinine 1.4 MG/DL (0.55-1.30) Estimat Glomerular Filtration Rate > 60 mL/min (>60) Glucose Level 110 MG/DL (74-106) Calcium Level 9.3 MG/DL (8.5-10.1) Test 04/21/19 04:55 04/21/19 08:43 04/21/19 11:00 04/22/19 04:30 White Blood Count 5.8 K/UL (4.8-10.8) 4.6 K/UL (4.8-10.8) Red Blood Count 3.07 M/UL (4.70-6.10) 3.04 M/UL (4.70-6.10) Hemoglobin 9.0 G/DL (14.2-18.0) 8.6 G/DL (14.2-18.0) Hematocrit 25.9 % (42.0-52.0) 25.5 % (42.0-52.0) Mean Corpuscular Volume 84 FL (80-99) 84 FL (80-99) Mean Corpuscular Hemoglobin 29.3 PG (27.0-31.0) 28.3 PG (27.0-31.0) Mean Corpuscular Hemoglobin Concent 34.7 G/DL (32.0-36.0) 33.7 G/DL (32.0-36.0) Red Cell Distribution Width 15.0 % (11.6-14.8) 14.7 % (11.6-14.8) Platelet Count 230 K/UL (150-450) 266 K/UL (150-450) Mean Platelet Volume 4.4 FL (6.5-10.1) 4.8 FL (6.5-10.1) Neutrophils (%) (Auto) 71.7 % (45.0-75.0) 69.3 % (45.0-75.0) Lymphocytes (%) (Auto) 13.6 % (20.0-45.0) 13.7 % (20.0-45.0) Monocytes (%) (Auto) 9.5 % (1.0-10.0) 10.5 % (1.0-10.0) Eosinophils (%) (Auto) 4.3 % (0.0-3.0) 5.2 % (0.0-3.0) Basophils (%) (Auto) 0.8 % (0.0-2.0) 1.4 % (0.0-2.0) Sodium Level 144 MMOL/L (136-145) 145 MMOL/L (136-145) Potassium Level 3.2 MMOL/L (3.5-5.1) 3.3 MMOL/L (3.5-5.1) Chloride Level 109 MMOL/L (98-107) 110 MMOL/L (98-107) Carbon Dioxide Level 28 MMOL/L (21-32) 26 MMOL/L (21-32) Anion Gap 7 mmol/L (5-15) 9 mmol/L (5-15) Blood Urea Nitrogen 19 mg/dL (7-18) 17 mg/dL (7-18) Creatinine 1.5 MG/DL (0.55-1.30) 1.4 MG/DL (0.55-1.30) Estimat Glomerular Filtration Rate 55.8 mL/min (>60) > 60 mL/min (>60) Glucose Level 97 MG/DL (74-106) 83 MG/DL (74-106) Calcium Level 8.8 MG/DL (8.5-10.1) 8.7 MG/DL (8.5-10.1) Arterial Blood pH 7.388 (7.350-7.450) 7.313 (7.350-7.450) Arterial Blood Partial Pressure CO2 47.2 mmHg (35.0-45.0) 57.7 mmHg (35.0-45.0) Arterial Blood Partial Pressure O2 68.3 mmHg (75.0-100.0) 236.0 mmHg (75.0-100.0) Arterial Blood HCO3 27.8 mmol/L (22.0-26.0) 28.6 mmol/L (22.0-26.0) Arterial Blood Oxygen Saturation 93.4 % (95-100) 98.9 % (95-100) Arterial Blood Base Excess 2.4 (-2-2) 1.7 (-2-2) Antonoi Test Positive Positive Prothrombin Time 12.1 SEC (9.30-11.50) Prothromb Time International Ratio 1.1 (0.9-1.1) Height (Feet): 5 Height (Inches): 7.00 Weight (Pounds): 167 Objective General: normal inspection, alert, Chronically Ill Respiratory: dry breath sounds b/l, ++ bipap Cardiovascular: regular rate, rhythm, no edema Gastrointestinal: normal inspection, normal bowel sounds Genitourinary: no CVA tenderness Mus: normal inspection, back normal, normal range of motion Neurologic: alert, motor strength/tone normal, oriented + confused Psychiatric: normal inspection, judgement/insight normal Skin: no rash Andreas Monroy MD Apr 22, 2019 15:41
--- NOTE | 2019-04-22 15:45 | Progress Note ---
DATE: 04/22/2019 SUBJECTIVE: This is a 73-year-old male. The patient was in the ICU. The patient is in the hospital secondary to anemia, urinary tract infection, dehydration, weakness, coffee-grounds emesis, stage III adenocarcinoma, status post cardiac arrest. In the ICU, he has some psychomotor agitation and altered mental status. Cognition has declined below baseline. That is why, his attending physician has requested daily psychiatric consultation. MENTAL STATUS EXAMINATION: This is a 73-year-old male. Appearance is disheveled. Attitude, irritable and agitated. Affect, guarded and restricted. Intellect poor. Mood, depressed and anxious. Motor activity, psychomotor agitation. Insight and judgment is poor. DIAGNOSIS: Major depressive disorder, mild, recurrent with psychotic features, rule out dementia with psychosis. PLAN: Treat him with Namenda 5 mg twice a day as well as Ativan 1 mg IV every 6 hours p.r.n. anxiety and agitation. 20 minutes of insight-oriented psychotherapy to help this patient recognize his psychiatric illness and help him recognize his mental and medical condition so that he has better impulse control and behavior in the ICU. 20 minutes of insight-oriented psychotherapy provided. Chart reviewed. Discussed with staff. Seen and assessed at bedside in the ICU. Cherise Palma M.D. DR: MANDI JOB#: [id number] CC:
--- NOTE | 2019-04-22 18:00 | NUR ---
NURSE NOTES: Pt's sister, Paige, at bedside. Updated her on pt's current condition. Pt's family requested PT consult. Awaiting response from Dr Toussaint.
--- NOTE | 2019-04-22 18:07 | NUR ---
NURSE NOTES:WOUND CARE FOLLOW-UP NOTES: Serous blister previously noted to thoracic spine is now an intact blood filled blister. No erythema or fluctuance noted to surrounding areas of blister.(L)1.6cm x (W)1cm. Sacrococcygeal pressure injury (L)0.6cm x (W)0.5cm noted to have small amt Biofilm at base of wound with surrounding non-blanching erythema without induration (L)4.1cm x (W)3.5cm. R heel is boggy with non-blanching erythema. Non-tender when palpated. L heel is soft but blanchable. All wound prevention protocols continued as care-planned. PT is on an APM/PREETI Mattress overlay. Pt is being positioned as per tolerance within protocols. Both heels are floated off mattress with pillows. Tx.plan: Cover Blister Thoracic spine with Optifoam drsg. Change every 7days and prn. Cleanse wound sacrococcygeal area with Saline.Apply Therahoney. Apply Moisture Barrier Paste periwound. Cover with Optifoam drsg. Change every 3 days and prn. Apply Cavilon Skin Barrier to both heels. Cover with Optifoam drsg. Change every 7 days and prn. APM/PREETI Mattress overlay. Reposition at least every 2hours or as tolerated. Off-load heels with pillows.
--- NOTE | 2019-04-22 18:50 | NUR ---
NURSE NOTES: Consulted PT, as ordered by Dr Toussaint.
--- NOTE | 2019-04-22 19:14 | NUR ---
HAND-OFF: Report given to BLANCA Grier.
--- NOTE | 2019-04-22 19:40 | NUR ---
NURSE NOTES: Received report from BLANCA Grier. Patient awake and responsive to verbal, able to follow simple commands. On bipap 18/5 with FiO2 30% and O2 Sat 99% on the monitor. Patient denies any pain/discomfort at this time. Morales intact and draining with yellow color urine, no hematuria noted. NPO status. Left forearm 20G IV intact and clean with TKO. Kept dry, clean, comfortable and HOB>30. Will continue plan of care.
[2019-04-22] MEDS: Tamsulosin 0.4mg cap ORAL SCH (20:42)
--- NOTE | 2019-04-22 21:00 | NUR ---
NURSE NOTES: Due medication given as ordered.
--- NOTE | 2019-04-22 22:26 | NUR ---
NURSE NOTES: Repositioned patient. Patient is calm.
[2019-04-23] VITALS (24 sets, daily range): BP systolic 107–145; BP diastolic 68–92
--- NOTE | 2019-04-23 00:11 | NUR ---
NURSE NOTES: Repositioned patient.
--- NOTE | 2019-04-23 01:58 | NUR ---
NURSE NOTES: Discontinued restraints. Will continue to monitor.
[2019-04-23] MEDS: Albuterol/Ipratropium 3ml neb HHN SCH ×5 (03:35→23:13)
[2019-04-23] MEDS: Acetylcysteine 20% Soln 4ml HHN SCH ×6 (03:36→23:13)
--- NOTE | 2019-04-23 04:20 | NUR ---
NURSE NOTES: Bed bath given.
--- NOTE | 2019-04-23 06:02 | NUR ---
NURSE NOTES: Still on bipap 18/5 with FIO2 30%. O2 sat 99% on the monitor. No distress/SOB noted.
[2019-04-23 06:04] LABS: INR 1.1 (0.9-1.1)
[2019-04-23 06:12] LABS: ANION GAP 10 mmol/L (5-15); BASOPHILS % (AUTO) 1.6 % (0.0-2.0); BLOOD UREA NITROGEN 17 mg/dL (7-18); CALCIUM 8.7 MG/DL (8.5-10.1); CARBON DIOXIDE 25 MMOL/L (21-32); CHLORIDE 111 MMOL/L (98-107); CREATININE 1.5 MG/DL (0.55-1.30); EOSINOPHILS % (AUTO) 6.2 % (0.0-3.0); HEMATOCRIT 24.8 % (42.0-52.0); HEMOGLOBIN 8.4 G/DL (14.2-18.0); LYMPHOCYTES % (AUTO) 16.3 % (20.0-45.0); MEAN CORPUSCULAR VOLUME 85 FL (80-99); MONOCYTES % (AUTO) 9.7 % (1.0-10.0); NEUTROPHILS % (AUTO) 66.2 % (45.0-75.0); PLATELET COUNT 304 K/UL (150-450); POTASSIUM 3.6 MMOL/L (3.5-5.1); RED BLOOD COUNT 2.94 M/UL (4.70-6.10); RED CELL DISTRIBUTION WIDTH 15.2 % (11.6-14.8); SODIUM 146 MMOL/L (136-145); WHITE BLOOD COUNT 3.9 K/UL (4.8-10.8)
--- NOTE | 2019-04-23 07:22 | NUR ---
HAND-OFF: Report given to BLANCA Corado. Endorsed plan of care.
--- NOTE | 2019-04-23 08:00 | NUR ---
NURSE NOTES: Change of shift report was received from Bradford RIOS. Pt is asleep, awakens to touch, follows basic commands, however is confused, attempting to get out of bed, and reach to pull out IV/Bipap. Bilateral soft wrist restraints are present for pt safety, with skin integrity at restraint site within normal limits. Pt is currently on Bipap 18/5 FIO2 30% at 100% O2Sat with bilateral rhonchi on auscultation. ST on surveillance system monitor, HR 104. Temp 97.5F axillary. Left nare NGT noted, with feeding Vital AF currently on hold while pt is on Bipap tx. Pt has one peripheral IV access #20G, saline locked, patent/intact. Morales catheter is present, draining, clear/yellow urine. Skin has sacral pressure ulcer, right elbow skin tear, and knee scabs, covered with optifoam dressing. Pt is on pressure releasing mattress. HOB at 30 degrees, bed locked, in lowest position, three side rails up, and call light is placed within easy reach. Will continue with plan of care.
--- NOTE | 2019-04-23 08:02 | Urology Progress Note ---
Assessment/Plan Status: unchanged Assessment/Plan: 1. 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 2. Urinary retention. 3. Acute kidney injury, improved. 4. Hydronephrosis, likely chronic. 5. Proteinuria. 6. UTI and colonization. 7. Hematuria. monitor clinically maintain guerra, last replaced 04/10 hand irrigated and do PRN position is satisfactory monitor renal fxn, labile likely obst of bilateral distal ureters secondary to advanced prostate ca will need to see how aggressive pt and family want to be renal fxn improved with the new guerra consider ureteral stents or nephrostomies? flomax added s/p abx may need to hold lovenox voiding trial at some point? d/w nursing staff Subjective Allergies: Coded Allergies: No Known Allergies (Unverified , 04/03/19) Subjective all noted, still in ICU, bipap Objective Last 24 Hour Vital Signs Date Time Temp Pulse Resp B/P (MAP) Pulse Ox O2 Delivery O2 Flow Rate FiO2 04/23/19 07:06 114 16 100 30 04/23/19 07:03 114 24 100 Nasal Cannula 2.0 28 112 24 100 04/23/19 07:02 100 Nasal Cannula 2.0 28 04/23/19 07:00 119 25 145/86 (105) 100 04/23/19 06:00 106 21 116/74 (88) 100 04/23/19 05:26 102 17 100 30 04/23/19 05:00 101 17 133/74 (93) 100 04/23/19 04:00 109 04/23/19 04:00 30 04/23/19 04:00 97.3 100 15 126/75 (92) 100 04/23/19 04:00 Bi-pap 04/23/19 03:29 105 19 100 Bi-Pap 30 106 22 100 04/23/19 03:00 112 25 114/79 (91) 100 04/23/19 02:00 103 19 111/69 (83) 100 04/23/19 01:00 105 20 107/68 (81) 100 04/23/19 00:38 109 23 100 30 04/23/19 00:00 114 04/23/19 00:00 Bi-pap 04/23/19 00:00 30 04/23/19 00:00 97.2 112 22 118/71 (87) 99 04/22/19 23:00 113 24 133/82 (99) 100 04/22/19 22:56 108 23 100 Bi-Pap 30 102 20 100 04/22/19 22:30 106 20 113/70 (84) 04/22/19 22:00 102 18 112/67 (82) 99 04/22/19 21:30 100 19 103/65 (78) 99 04/22/19 21:05 100 17 100 30 04/22/19 21:00 108 23 129/75 (93) 99 04/22/19 20:00 97.6 97 21 111/75 (87) 98 04/22/19 20:00 Bi-pap 04/22/19 20:00 30 04/22/19 20:00 106 04/22/19 19:19 100 Bi-Pap 30 04/22/19 19:16 105 15 100 Bi-Pap 30 102 16 100 04/22/19 19:00 106 20 122/79 (93) 100 04/22/19 18:00 97 16 118/78 (91) 100 04/22/19 17:16 104 18 100 30 04/22/19 17:00 100 19 115/79 (91) 97 04/22/19 17:00 115/79 04/22/19 16:22 102 04/22/19 16:00 Bi-pap 30.0 04/22/19 16:00 30 04/22/19 16:00 97.1 97 15 110/72 (85) 100 04/22/19 15:12 95 16 95 Bi-Pap 30 97 18 100 30 04/22/19 15:00 104 19 118/74 (89) 100 04/22/19 14:00 101 20 113/74 (87) 100 04/22/19 13:19 97 15 98 30 04/22/19 13:00 104 18 113/77 (89) 100 04/22/19 12:38 97 04/22/19 12:00 Bi-pap 30.0 04/22/19 12:00 97.2 101 19 115/77 (90) 100 04/22/19 12:00 30 04/22/19 11:00 99 21 106/69 (81) 100 04/22/19 10:51 97 19 100 Bi-Pap 30 95 18 100 30 04/22/19 10:00 101 19 113/74 (87) 95 04/22/19 09:20 95 20 100 30 04/22/19 09:00 111 25 124/62 (82) 100 Intake and Output 04/22/19 04/23/19 19:00 07:00 Intake Total 255 ml 200 ml Output Total 435 ml 365 ml Balance -180 ml -165 ml Free Water 200 ml IV Total 255 ml Output Urine Total 435 ml 365 ml # Bowel Movements 1 Microbiology Date/Time Source Procedure Growth Status 04/14/19 12:45 Blood Blood Culture - Final NO GROWTH AFTER 5 DAYS Complete 04/15/19 21:40 Sputum Gram Stain - Final Complete 04/15/19 21:40 Sputum Sputum Culture - Final NORMAL UPPER RESPIRATORY DAVID PRESENT Complete 04/18/19 17:00 Stool Clostridium difficile Toxin Assay - Final Complete 04/14/19 11:25 Urine,Random Urine Culture - Final NO GROWTH AFTER 48 HOURS Complete Current Medications Medications (Trade) Dose Ordered Sig/Al Nena Route PRN Reason Start Time Stop Time Status Last Admin Dose Admin Acetylcysteine (Mucomyst) 200 mg Q4HRT N 04/18/19 11:00 05/18/19 10:59 04/23/19 06:52 Albuterol/ Ipratropium (Albuterol/ Ipratropium) 3 ml Q4HRT HHN 04/18/19 11:00 04/23/19 10:59 04/23/19 06:52 Cefepime HCl 1 gm/ Dextrose 55 ml @ 110 mls/hr Q24H IVPB 04/21/19 12:00 04/28/19 11:59 04/22/19 12:09 Enoxaparin Sodium (Lovenox) 30 mg DAILY SUBQ 04/14/19 09:00 05/04/19 08:59 04/22/19 08:07 Hydralazine HCl (Apresoline) 10 mg Q4H PRN IV SBP > 170mmHg 04/13/19 15:00 05/08/19 14:59 Lansoprazole (Prevacid) 30 mg DAILY ORAL 04/14/19 09:00 05/13/19 08:59 04/22/19 08:06 Lorazepam (Ativan 2mg/ml 1ml) 1 mg Q6H PRN IV For Anxiety 04/17/19 18:15 04/24/19 18:14 04/19/19 02:34 Memantine (Namenda) 5 mg BID ORAL 04/13/19 18:00 05/04/19 17:59 04/22/19 17:11 Norepinephrine Bitartrate 4 mg/ Dextrose 250 ml @ 0 mls/hr Q24H IV 04/13/19 17:00 05/13/19 16:59 04/14/19 22:57 Tamsulosin HCl (Flomax) 0.4 mg BEDTIME ORAL 04/13/19 21:00 05/13/19 20:59 04/22/19 20:42 Laboratory Tests 04/23/19 05:20: White Blood Count 3.9L, Red Blood Count 2.94L, Hemoglobin 8.4L, Hematocrit 24.8L , Mean Corpuscular Volume 85, Mean Corpuscular Hemoglobin 28.7, Mean Corpuscular Hemoglobin Concent 33.9, Red Cell Distribution Width 15.2H, Platelet Count 304, Mean Platelet Volume 4.4L, Neutrophils (%) (Auto) 66.2, Lymphocytes (%) (Auto) 16.3L, Monocytes (%) (Auto) 9.7, Eosinophils (%) (Auto) 6.2H, Basophils (%) (Auto) 1.6, Prothrombin Time 12.1H, Prothromb Time International Ratio 1.1, Activated Partial Thromboplast Time 29, Sodium Level 146H, Potassium Level 3.6, Chloride Level 111H, Carbon Dioxide Level 25, Anion Gap 10, Blood Urea Nitrogen 17, Creatinine 1.5H, Estimat Glomerular Filtration Rate 55.8, Glucose Level 72L, Calcium Level 8.7 Height (Feet): 5 Height (Inches): 7.00 Weight (Pounds): 167 Objective exam stable guerra indwelling, yellow/allegra urine CT A/P (04/10) noted Raz Root MD Apr 23, 2019 08:02
--- NOTE | 2019-04-23 09:05 | Nephrology Progress Note ---
Assessment/Plan Status: unchanged Assessment/Plan: A/P 1. CKD 3B resolved. Cr 1.3-1.5 stable 2. Prostate cancer with elevated PSA 3. Hypokalemia- replace prn basis 4. Sepsis and UTI mgmt per ID 5. Hypernatremia- corrected. May need to restart D5W if Na worsens 6. Hypercalcemia of malignancy- s/p pamidronate and calcitonin. Ca 8.8 7. Resp FL- on BiPAP Subjective Date patient seen: Apr 23, 2019 Time patient seen: 09:04 ROS Limited/Unobtainable: Yes Allergies: Coded Allergies: No Known Allergies (Unverified , 04/03/19) Subjective Patient failed BiPAP weaning Objective Last 24 Hour Vital Signs Date Time Temp Pulse Resp B/P (MAP) Pulse Ox O2 Delivery O2 Flow Rate FiO2 04/23/19 08:59 104 14 99 30 04/23/19 07:06 114 16 100 30 04/23/19 07:03 114 24 100 Nasal Cannula 2.0 28 112 24 100 04/23/19 07:02 100 Nasal Cannula 2.0 28 04/23/19 07:00 119 25 145/86 (105) 100 04/23/19 06:00 106 21 116/74 (88) 100 04/23/19 05:26 102 17 100 30 04/23/19 05:00 101 17 133/74 (93) 100 04/23/19 04:00 109 04/23/19 04:00 30 04/23/19 04:00 97.3 100 15 126/75 (92) 100 04/23/19 04:00 Bi-pap 04/23/19 03:29 105 19 100 Bi-Pap 30 106 22 100 04/23/19 03:00 112 25 114/79 (91) 100 04/23/19 02:00 103 19 111/69 (83) 100 04/23/19 01:00 105 20 107/68 (81) 100 04/23/19 00:38 109 23 100 30 04/23/19 00:00 114 04/23/19 00:00 Bi-pap 04/23/19 00:00 30 04/23/19 00:00 97.2 112 22 118/71 (87) 99 04/22/19 23:00 113 24 133/82 (99) 100 04/22/19 22:56 108 23 100 Bi-Pap 30 102 20 100 04/22/19 22:30 106 20 113/70 (84) 04/22/19 22:00 102 18 112/67 (82) 99 04/22/19 21:30 100 19 103/65 (78) 99 04/22/19 21:05 100 17 100 30 04/22/19 21:00 108 23 129/75 (93) 99 04/22/19 20:00 97.6 97 21 111/75 (87) 98 04/22/19 20:00 Bi-pap 04/22/19 20:00 30 04/22/19 20:00 106 04/22/19 19:19 100 Bi-Pap 30 04/22/19 19:16 105 15 100 Bi-Pap 30 102 16 100 04/22/19 19:00 106 20 122/79 (93) 100 04/22/19 18:00 97 16 118/78 (91) 100 04/22/19 17:16 104 18 100 30 04/22/19 17:00 100 19 115/79 (91) 97 04/22/19 17:00 115/79 04/22/19 16:22 102 04/22/19 16:00 Bi-pap 30.0 04/22/19 16:00 30 04/22/19 16:00 97.1 97 15 110/72 (85) 100 04/22/19 15:12 95 16 95 Bi-Pap 30 97 18 100 30 04/22/19 15:00 104 19 118/74 (89) 100 04/22/19 14:00 101 20 113/74 (87) 100 04/22/19 13:19 97 15 98 30 04/22/19 13:00 104 18 113/77 (89) 100 04/22/19 12:38 97 04/22/19 12:00 Bi-pap 30.0 04/22/19 12:00 97.2 101 19 115/77 (90) 100 04/22/19 12:00 30 04/22/19 11:00 99 21 106/69 (81) 100 04/22/19 10:51 97 19 100 Bi-Pap 30 95 18 100 30 04/22/19 10:00 101 19 113/74 (87) 95 04/22/19 09:20 95 20 100 30 Intake and Output 04/22/19 04/23/19 19:00 07:00 Intake Total 255 ml 200 ml Output Total 435 ml 365 ml Balance -180 ml -165 ml Free Water 200 ml IV Total 255 ml Output Urine Total 435 ml 365 ml # Bowel Movements 1 Laboratory Tests 04/23/19 05:20: White Blood Count 3.9L, Red Blood Count 2.94L, Hemoglobin 8.4L, Hematocrit 24.8L , Mean Corpuscular Volume 85, Mean Corpuscular Hemoglobin 28.7, Mean Corpuscular Hemoglobin Concent 33.9, Red Cell Distribution Width 15.2H, Platelet Count 304, Mean Platelet Volume 4.4L, Neutrophils (%) (Auto) 66.2, Lymphocytes (%) (Auto) 16.3L, Monocytes (%) (Auto) 9.7, Eosinophils (%) (Auto) 6.2H, Basophils (%) (Auto) 1.6, Prothrombin Time 12.1H, Prothromb Time International Ratio 1.1, Activated Partial Thromboplast Time 29, Sodium Level 146H, Potassium Level 3.6, Chloride Level 111H, Carbon Dioxide Level 25, Anion Gap 10, Blood Urea Nitrogen 17, Creatinine 1.5H, Estimat Glomerular Filtration Rate 55.8, Glucose Level 72L, Calcium Level 8.7 Height (Feet): 5 Height (Inches): 7.00 Weight (Pounds): 167 General Appearance: no apparent distress EENT: normal ENT inspection Neck: normal alignment, supple Cardiovascular: normal rate, regular rhythm Respiratory/Chest: rhonchi - bilaterally Abdomen: non tender, soft Edema: no edema noted Arm (L), no edema noted Arm (R), no edema noted Leg (L), no edema noted Leg (R), no edema noted Pedal (L), no edema noted Pedal (R), no edema noted Generalized Carlos White MD Apr 23, 2019 09:05
[2019-04-23] MEDS: Memantine 5 MG TAB ORAL SCH ×2 (09:10→17:12)
[2019-04-23] MEDS: Enoxaparin 30mg Inj SUBQ SCH (09:12)
--- NOTE | 2019-04-23 09:29 | Hematology/Onc Progress Note ---
Assessment/Plan Assessment/Plan # Prostate cancer stage IV with psa >700, cr is worse, hydronephrosis noted, seen by renal, Dr. White. --> i did received records from [facility]. has regional lymphadenopathy, s/p transrectal biopsy with Gleasons 5+5 (2010) in all cores, apparently has had a 3 year course of androgen deprivation from 2011- 2014.also status post RADIATION to the prostate, then lost to followup. Following surviellance psa 0.45-->65, in 10/2016, and up to 127 in 12/2016, Ct scan showed recurrence of disease with lad but no bony mets, started on lupron 01/2017, psa fell yo 73-->46, has been sarted on zytiga + prednisone, and now psa progression on zytiga, he started xtandi in 01/2019 Psa 87. He did not go through urethral stenting, he has deferred treatment with chemo. --> He is a very poor historian, I have talked to the sister --> imaging has been noted --> as per urology recs, reviewed --> have called , no answer, trans to [facility]? --> poor prognosis given above history of treatment, defer transfer to [facility] --> psa 737-->757 --> CT ABD 04/10: Evidence of advanced metastatic neoplasm likely secondary to prostate carcinoma. Extensive retroperitoneal and pelvic lymphadenopathy complicated by presence of bilateral hydroureteronephrosis. Extensive metastatic disease involving the bones also noted. Status post seed implant radiation therapy to the prostate gland. # Hypercalcemia -- now acutely worse --> trend Ca++ 8.1-->13-->12-->10.3-->10.7-->13.2 -->11-->10.5 --> ivf has been started --> as per nephrology --> calcitonin was given # Anemia due to underlying malignancy --> hgb trend as needed 9.2-->7-->10.9-->11-->9.7-->8.1-->8.6 --> no hemolysis is noted --> no bleeding --> blood tx: 04/18, # Episode of generalized weakness --> on ivf --> pt as needed # Pleural effusion --> no consent for peg # Hypokalemia --> replete prn # Dehydration --> on ivf # Atrophic changes without evident intracranial hemorrhage. --> as per neuro, remains confused # Respiratory failure s/p vent now ext --> on bipap++ # Hypernatremia as well as low BUN --> on ivf # Poor prognosis # Dvt ppx lovenox sq Appreciate consultation and Nicholas Rn Subjective Allergies: Coded Allergies: No Known Allergies (Unverified , 04/03/19) Subjective 04/06: no events, apparently intubated today and transferred to the icu, will dw family 04/07: remains in the icu, critically ill, Ca++ 12, on vent, minimally responsive , on dopa, dw pcp and pulm 04/08: no major changes, no night sweats, labs have been reviewed, dw daughter, he is more alert 04/10: awake, no acute events ct abd reviewed, stool ob negative 04/12: labs reviewed, nc, tachy, ceftriaxone, no sob 04/13: lethargic, nc 3l, no acute distress, labs reviewed 04/14: Ca++ remains elev 13.2, De Amy aware, on calcitonin, on lovenox 04/15: no major changes, remains intubated, seen by cards, renal, pulm, dw Kellie, kcl ordered 04/16: tolerating meds well, no bleeding, on vent, is on simv mode, nicholas Pacheco Rn 04/17: icu, vent, h/h stable, no acute events, on cefepime 04/19: remains in icu and intubated, s/p blood, hgb 8.6, c diff negative 04/20: on bipap, hgb 8.6, no major changes, in icu, requires peg 04/21: urine is red tinged this am, of vent, with nc, no bleeding, labs noted 04/22: no major changes, no bleeding r chils, no consent for procedures 04/13: icu, failed to wean from bipap, h/h stable Objective Objective Current Medications Medications (Trade) Dose Ordered Sig/La Nena Route PRN Reason Start Time Stop Time Status Last Admin Dose Admin Acetylcysteine (Mucomyst) 200 mg Q4HRT HHN 04/18/19 11:00 05/18/19 10:59 04/23/19 06:52 Albuterol/ Ipratropium (Albuterol/ Ipratropium) 3 ml Q4HRT HHN 04/18/19 11:00 04/23/19 10:59 04/23/19 06:52 Cefepime HCl 1 gm/ Dextrose 55 ml @ 110 mls/hr Q24H IVPB 04/21/19 12:00 04/28/19 11:59 04/22/19 12:09 Enoxaparin Sodium (Lovenox) 30 mg DAILY SUBQ 04/14/19 09:00 05/04/19 08:59 04/23/19 09:12 Hydralazine HCl (Apresoline) 10 mg Q4H PRN IV SBP > 170mmHg 04/13/19 15:00 05/08/19 14:59 Lansoprazole (Prevacid) 30 mg DAILY ORAL 04/14/19 09:00 05/13/19 08:59 04/23/19 09:10 Lorazepam (Ativan 2mg/ml 1ml) 1 mg Q6H PRN IV For Anxiety 04/17/19 18:15 04/24/19 18:14 04/19/19 02:34 Memantine (Namenda) 5 mg BID ORAL 04/13/19 18:00 05/04/19 17:59 04/23/19 09:10 Norepinephrine Bitartrate 4 mg/ Dextrose 250 ml @ 0 mls/hr Q24H IV 04/13/19 17:00 05/13/19 16:59 04/14/19 22:57 Tamsulosin HCl (Flomax) 0.4 mg BEDTIME ORAL 04/13/19 21:00 05/13/19 20:59 04/22/19 20:42 Last 24 Hour Vital Signs Date Time Temp Pulse Resp B/P (MAP) Pulse Ox O2 Delivery O2 Flow Rate FiO2 04/23/19 09:00 104 19 112/75 (87) 100 04/23/19 08:59 104 14 99 30 04/23/19 08:00 97.5 108 24 119/77 (91) 99 04/23/19 07:06 114 16 100 30 04/23/19 07:03 114 24 100 Nasal Cannula 2.0 28 112 24 100 04/23/19 07:02 100 Nasal Cannula 2.0 28 04/23/19 07:00 119 25 145/86 (105) 100 04/23/19 06:00 106 21 116/74 (88) 100 04/23/19 05:26 102 17 100 30 04/23/19 05:00 101 17 133/74 (93) 100 04/23/19 04:00 109 04/23/19 04:00 30 04/23/19 04:00 97.3 100 15 126/75 (92) 100 04/23/19 04:00 Bi-pap 04/23/19 03:29 105 19 100 Bi-Pap 30 106 22 100 04/23/19 03:00 112 25 114/79 (91) 100 04/23/19 02:00 103 19 111/69 (83) 100 04/23/19 01:00 105 20 107/68 (81) 100 04/23/19 00:38 109 23 100 30 04/23/19 00:00 114 04/23/19 00:00 Bi-pap 04/23/19 00:00 30 04/23/19 00:00 97.2 112 22 118/71 (87) 99 04/22/19 23:00 113 24 133/82 (99) 100 04/22/19 22:56 108 23 100 Bi-Pap 30 102 20 100 04/22/19 22:30 106 20 113/70 (84) 04/22/19 22:00 102 18 112/67 (82) 99 04/22/19 21:30 100 19 103/65 (78) 99 04/22/19 21:05 100 17 100 30 04/22/19 21:00 108 23 129/75 (93) 99 04/22/19 20:00 97.6 97 21 111/75 (87) 98 04/22/19 20:00 Bi-pap 04/22/19 20:00 30 04/22/19 20:00 106 04/22/19 19:19 100 Bi-Pap 30 04/22/19 19:16 105 15 100 Bi-Pap 30 102 16 100 04/22/19 19:00 106 20 122/79 (93) 100 04/22/19 18:00 97 16 118/78 (91) 100 04/22/19 17:16 104 18 100 30 04/22/19 17:00 100 19 115/79 (91) 97 2/19/20 17:00 115/79 04/22/19 16:22 102 04/22/19 16:00 Bi-pap 30.0 04/22/19 16:00 30 04/22/19 16:00 97.1 97 15 110/72 (85) 100 04/22/19 15:12 95 16 95 Bi-Pap 30 97 18 100 30 04/22/19 15:00 104 19 118/74 (89) 100 04/22/19 14:00 101 20 113/74 (87) 100 04/22/19 13:19 97 15 98 30 04/22/19 13:00 104 18 113/77 (89) 100 04/22/19 12:38 97 04/22/19 12:00 Bi-pap 30.0 04/22/19 12:00 97.2 101 19 115/77 (90) 100 04/22/19 12:00 30 04/22/19 11:00 99 21 106/69 (81) 100 04/22/19 10:51 97 19 100 Bi-Pap 30 95 18 100 30 04/22/19 10:00 101 19 113/74 (87) 95 04/22/19 09:20 95 20 100 30 04/22/19 09:00 111 25 124/62 (82) 100 04/22/19 08:00 Bi-pap 30.0 04/22/19 08:00 97.8 94 18 112/65 (81) 100 94 04/22/19 08:00 30 04/22/19 07:57 100 Bi-Pap 30 04/22/19 07:45 118 04/22/19 07:07 105 25 100 Nasal Cannula 2.0 28 102 24 100 04/22/19 07:00 102 23 120/76 (91) 100 04/22/19 06:00 93 19 104/79 (87) 99 04/22/19 05:00 104 25 99 30 04/22/19 05:00 102 18 107/71 (83) 100 04/22/19 04:00 97.4 103 22 104/71 (82) 100 04/22/19 04:00 105 04/22/19 04:00 Bi-pap 25.0 04/22/19 04:00 25 04/22/19 03:10 105 24 100 Bi-Pap 30 04/22/19 03:00 108 28 99 30 2 03:00 107 22 111/76 (88) 98 2 03:00 108 28 99 Bi-Pap 30 04/22/19 02:00 106 28 105/73 (84) 96 220 01:00 110 24 113/73 (86) 99 04/22/19 00:43 105 22 99 30 04/22/19 00:00 105 2 00:00 25 2 00:00 Bi-pap 25.0 04/22/19 00:00 98.2 99 22 97/64 (75) 100 21820 23:11 103 24 100 Bi-Pap 30 04/21/19 23:00 105 26 117/76 (90) 99 105 2 23:00 111 26 100 Bi-Pap 30 04/21/19 23:00 111 26 100 30 20 22:00 104 21 109/70 (83) 100 104 104 04/21/19 21:00 99 22 96/75 (82) 100 21820 20:45 99 24 100 30 18/20 20:00 25 218/20 20:00 97.6 109 24 111/77 (88) 98 21820 20:00 112 220 20:00 Bi-pap 25.0 218 19:07 108 24 100 Bi-Pap 30 20 19:00 107 21 121/75 (90) 100 21820 18:57 100 Bi-Pap 30 04/21/20 18:57 111 25 100 30 218/20 18:57 111 25 100 Bi-Pap 30 218/20 18:00 105 23 117/72 (87) 100 2/18/20 17:01 97 17 100 30 218/20 17:00 98 17 104/69 (81) 100 218/20 16:36 113/72 218/20 16:00 98.1 100 21 110/79 (89) 98 2/18/20 16:00 25 2/18/20 16:00 Bi-pap 25.0 218/20 15:23 97 2/18/20 15:00 100 19 110/70 (83) 99 2/18/20 14:40 107 27 100 Bi-Pap 30 104 23 96 30 04/21/19 14:00 106 26 125/87 (100) 98 04/21/19 13:00 98 20 108/69 (82) 100 04/21/19 12:00 Bi-pap 25.0 04/21/19 12:00 97 04/21/19 12:00 25 04/21/19 12:00 98.1 109 19 106/78 (87) 94 04/21/19 11:20 118 29 100 Nasal Cannula 2.0 28 114 34 100 04/21/19 11:15 117 34 100 30 04/21/19 11:00 102 29 118/79 (92) 100 04/21/19 10:00 114 29 118/84 (95) 99 04/21/19 10:00 105 31 118/84 (95) 100 Intake and Output 04/22/19 04/23/19 19:00 07:00 Intake Total 255 ml 200 ml Output Total 435 ml 400 ml Balance -180 ml -200 ml Free Water 200 ml IV Total 255 ml Output Urine Total 435 ml 400 ml # Bowel Movements 1 Labs Test 04/20/19 10:48 04/21/19 04:55 04/21/19 08:43 04/21/19 11:00 Arterial Blood pH 7.316 (7.350-7.450) 7.388 (7.350-7.450) 7.313 (7.350-7.450) Arterial Blood Partial Pressure CO2 52.4 mmHg (35.0-45.0) 47.2 mmHg (35.0-45.0) 57.7 mmHg (35.0-45.0) Arterial Blood Partial Pressure O2 93.1 mmHg (75.0-100.0) 68.3 mmHg (75.0-100.0) 236.0 mmHg (75.0-100.0) Arterial Blood HCO3 26.1 mmol/L (22.0-26.0) 27.8 mmol/L (22.0-26.0) 28.6 mmol/L (22.0-26.0) Arterial Blood Oxygen Saturation 96.3 % (95-100) 93.4 % (95-100) 98.9 % (95-100) Arterial Blood Base Excess -0.4 (-2-2) 2.4 (-2-2) 1.7 (-2-2) Antonio Test Positive Positive Positive White Blood Count 5.8 K/UL (4.8-10.8) Red Blood Count 3.07 M/UL (4.70-6.10) Hemoglobin 9.0 G/DL (14.2-18.0) Hematocrit 25.9 % (42.0-52.0) Mean Corpuscular Volume 84 FL (80-99) Mean Corpuscular Hemoglobin 29.3 PG (27.0-31.0) Mean Corpuscular Hemoglobin Concent 34.7 G/DL (32.0-36.0) Red Cell Distribution Width 15.0 % (11.6-14.8) Platelet Count 230 K/UL (150-450) Mean Platelet Volume 4.4 FL (6.5-10.1) Neutrophils (%) (Auto) 71.7 % (45.0-75.0) Lymphocytes (%) (Auto) 13.6 % (20.0-45.0) Monocytes (%) (Auto) 9.5 % (1.0-10.0) Eosinophils (%) (Auto) 4.3 % (0.0-3.0) Basophils (%) (Auto) 0.8 % (0.0-2.0) Sodium Level 144 MMOL/L (136-145) Potassium Level 3.2 MMOL/L (3.5-5.1) Chloride Level 109 MMOL/L (98-107) Carbon Dioxide Level 28 MMOL/L (21-32) Anion Gap 7 mmol/L (5-15) Blood Urea Nitrogen 19 mg/dL (7-18) Creatinine 1.5 MG/DL (0.55-1.30) Estimat Glomerular Filtration Rate 55.8 mL/min (>60) Glucose Level 97 MG/DL (74-106) Calcium Level 8.8 MG/DL (8.5-10.1) Test 04/22/19 04:30 04/23/19 05:20 04/23/19 08:56 White Blood Count 4.6 K/UL (4.8-10.8) 3.9 K/UL (4.8-10.8) Red Blood Count 3.04 M/UL (4.70-6.10) 2.94 M/UL (4.70-6.10) Hemoglobin 8.6 G/DL (14.2-18.0) 8.4 G/DL (14.2-18.0) Hematocrit 25.5 % (42.0-52.0) 24.8 % (42.0-52.0) Mean Corpuscular Volume 84 FL (80-99) 85 FL (80-99) Mean Corpuscular Hemoglobin 28.3 PG (27.0-31.0) 28.7 PG (27.0-31.0) Mean Corpuscular Hemoglobin Concent 33.7 G/DL (32.0-36.0) 33.9 G/DL (32.0-36.0) Red Cell Distribution Width 14.7 % (11.6-14.8) 15.2 % (11.6-14.8) Platelet Count 266 K/UL (150-450) 304 K/UL (150-450) Mean Platelet Volume 4.8 FL (6.5-10.1) 4.4 FL (6.5-10.1) Neutrophils (%) (Auto) 69.3 % (45.0-75.0) 66.2 % (45.0-75.0) Lymphocytes (%) (Auto) 13.7 % (20.0-45.0) 16.3 % (20.0-45.0) Monocytes (%) (Auto) 10.5 % (1.0-10.0) 9.7 % (1.0-10.0) Eosinophils (%) (Auto) 5.2 % (0.0-3.0) 6.2 % (0.0-3.0) Basophils (%) (Auto) 1.4 % (0.0-2.0) 1.6 % (0.0-2.0) Prothrombin Time 12.1 SEC (9.30-11.50) 12.1 SEC (9.30-11.50) Prothromb Time International Ratio 1.1 (0.9-1.1) 1.1 (0.9-1.1) Sodium Level 145 MMOL/L (136-145) 146 MMOL/L (136-145) Potassium Level 3.3 MMOL/L (3.5-5.1) 3.6 MMOL/L (3.5-5.1) Chloride Level 110 MMOL/L (98-107) 111 MMOL/L (98-107) Carbon Dioxide Level 26 MMOL/L (21-32) 25 MMOL/L (21-32) Anion Gap 9 mmol/L (5-15) 10 mmol/L (5-15) Blood Urea Nitrogen 17 mg/dL (7-18) 17 mg/dL (7-18) Creatinine 1.4 MG/DL (0.55-1.30) 1.5 MG/DL (0.55-1.30) Estimat Glomerular Filtration Rate > 60 mL/min (>60) 55.8 mL/min (>60) Glucose Level 83 MG/DL (74-106) 72 MG/DL (74-106) Calcium Level 8.7 MG/DL (8.5-10.1) 8.7 MG/DL (8.5-10.1) Activated Partial Thromboplast Time 29 SEC (23-33) Arterial Blood pH 7.400 (7.350-7.450) Arterial Blood Partial Pressure CO2 34.7 mmHg (35.0-45.0) Arterial Blood Partial Pressure O2 81.5 mmHg (75.0-100.0) Arterial Blood HCO3 21.0 mmol/L (22.0-26.0) Arterial Blood Oxygen Saturation 94.7 % (95-100) Arterial Blood Base Excess -3.3 (-2-2) Antonio Test Positive Height (Feet): 5 Height (Inches): 7.00 Weight (Pounds): 167 Objective General: normal inspection, alert, Chronically Ill Respiratory: dry breath sounds b/l, ++ bipap Cardiovascular: regular rate, rhythm, no edema Gastrointestinal: normal inspection, normal bowel sounds Genitourinary: no CVA tenderness Mus: normal inspection, back normal, normal range of motion Neurologic: alert, motor strength/tone normal, oriented + confused Psychiatric: normal inspection, judgement/insight normal Skin: no rash Andreas Monroy MD Apr 23, 2019 09:29
--- NOTE | 2019-04-23 10:00 | NUR ---
NURSE NOTES: AM meds were administered. VS remain stable. ABGs were drawn while pt remained on Bipap 18/5 with FIO2 30%. Pt was seen by Dr Mathews, and aware of results. No new orders were received at this time. Pt was repositioned in bed.
--- NOTE | 2019-04-23 10:13 | Infectious Diseases Prog Note ---
Assessment/Plan Assessment/Plan Assessment: s/p bradycardia>cardiac arrest 04/13 VDRF 04/13; sp extubation 04/19 Shock, recurrent- off pressors -04/20 CXR: Interim extubation. Increased left greater than right pleural fluid s/p asystole cardiac arrest 04/06 VDRF; s/p extubation 04/08 Probable PNA -04/21 CXR:Shifting infiltrates on the right, with increased hazy midlung infiltrate, improved right basilar consolidation or atelectasis or pleural fluid. Slightly increased generalized mild interstitial congestion. Stable large left pleural effusion Low grade fever; SP Mild leukocytosis, recurrent- SP -04/15 sp cx normal resp sharyn (prelim) -04/14 u/a wbc 10-15, nit neg, leuk +3; ucx Neg CXR: Interim development of complete right upper lobe atelectasis. Nonspecific diffuse hazy left lung opacity, likely mild pulmonary edema. -04/07 Bcx NTD u/a wbc tnct, nit neg, leuk +; ucx neg -04/06 CXR: Interval resolution of right apical density. This suggests the diagnosis was atelectasis rather than an apical cap from blood, which was suggested as a possibility on the prior report. The right upper lobe atelectasis has resolved. Suspicion of new atelectasis at the right lung base. Sepsis UTI B/l hydroureteronephrosis -04/10 CT abd/p: Evidence of advanced metastatic neoplasm likely secondary to prostate carcinoma. Extensive retroperitoneal and pelvic lymphadenopathy complicated by presence of bilateral hydroureteronephrosis. Extensive metastatic disease involving the bones also noted. Small left pleural effusion. Right trace right pleural effusion. Right inguinal hernia containing a small amount of fluid. Alternatively this could represent part of the testis. Anasarca. -u/a wbc 20-30, nit +, leuk +3; ucx >100k E.coli (R amp, bactrim; otherwise S) Probable Aspiration pneumonitis vs PNA -04/08 CXR: Patchy perihilar disease which may be asymmetric interstitial edema or infiltrate unchanged. Interval resolution of right basal atelectasis. -04/07 sp cx normal sharyn(prelim) s/p recent fall LETA Hypokalemia prostate CA stage IV, mets to bone chronic indwelling guerra catheter Plan: -Continue Cefepime #/ for probable PNA -2/14 SP Vanc IV #4 -2/10 SP Ceftriaxone #4 - 2/7 Sp ZOsyn #4 -2/6 SP IV Vancomycin #3 -2/4 SP Ceftriaxone #4 -f/u cx -Monitor CBC/CMP, temperatures -aspiration precautions -Cards, renal, Uro, pulm f/u -ICU care -poor px- consider re-evaluation of goals of care- ?Hospice Thank you for this consultation. Will continue to follow along with you. Subjective Allergies: Coded Allergies: No Known Allergies (Unverified , 04/03/19) Subjective afebrile no leukocytosis on bipap Objective Vital Signs Last 24 Hour Vital Signs Date Time Temp Pulse Resp B/P (MAP) Pulse Ox O2 Delivery O2 Flow Rate FiO2 04/23/19 10:00 102 21 116/74 (88) 100 04/23/19 09:00 104 19 112/75 (87) 100 04/23/19 08:59 104 14 99 30 04/23/19 08:00 Bi-pap 04/23/19 08:00 105 04/23/19 08:00 30 04/23/19 08:00 97.5 108 24 119/77 (91) 99 04/23/19 07:06 114 16 100 30 04/23/19 07:03 114 24 100 Nasal Cannula 2.0 28 112 24 100 04/23/19 07:02 100 Nasal Cannula 2.0 28 04/23/19 07:00 119 25 145/86 (105) 100 04/23/19 06:00 106 21 116/74 (88) 100 04/23/19 05:26 102 17 100 30 04/23/19 05:00 101 17 133/74 (93) 100 04/23/19 04:00 109 04/23/19 04:00 30 04/23/19 04:00 97.3 100 15 126/75 (92) 100 04/23/19 04:00 Bi-pap 04/23/19 03:29 105 19 100 Bi-Pap 30 106 22 100 04/23/19 03:00 112 25 114/79 (91) 100 04/23/19 02:00 103 19 111/69 (83) 100 04/23/19 01:00 105 20 107/68 (81) 100 04/23/19 00:38 109 23 100 30 04/23/19 00:00 114 04/23/19 00:00 Bi-pap 04/23/19 00:00 30 04/23/19 00:00 97.2 112 22 118/71 (87) 99 04/22/19 23:00 113 24 133/82 (99) 100 04/22/19 22:56 108 23 100 Bi-Pap 30 102 20 100 04/22/19 22:30 106 20 113/70 (84) 04/22/19 22:00 102 18 112/67 (82) 99 04/22/19 21:30 100 19 103/65 (78) 99 04/22/19 21:05 100 17 100 30 04/22/19 21:00 108 23 129/75 (93) 99 04/22/19 20:00 97.6 97 21 111/75 (87) 98 04/22/19 20:00 Bi-pap 04/22/19 20:00 30 04/22/19 20:00 106 04/22/19 19:19 100 Bi-Pap 30 04/22/19 19:16 105 15 100 Bi-Pap 30 102 16 100 04/22/19 19:00 106 20 122/79 (93) 100 04/22/19 18:00 97 16 118/78 (91) 100 04/22/19 17:16 104 18 100 30 04/22/19 17:00 100 19 115/79 (91) 97 04/22/19 17:00 115/79 04/22/19 16:22 102 04/22/19 16:00 Bi-pap 30.0 04/22/19 16:00 30 04/22/19 16:00 97.1 97 15 110/72 (85) 100 04/22/19 15:12 95 16 95 Bi-Pap 30 97 18 100 30 04/22/19 15:00 104 19 118/74 (89) 100 04/22/19 14:00 101 20 113/74 (87) 100 04/22/19 13:19 97 15 98 30 04/22/19 13:00 104 18 113/77 (89) 100 04/22/19 12:38 97 04/22/19 12:00 Bi-pap 30.0 04/22/19 12:00 97.2 101 19 115/77 (90) 100 04/22/19 12:00 30 04/22/19 11:00 99 21 106/69 (81) 100 04/22/19 10:51 97 19 100 Bi-Pap 30 95 18 100 30 Height (Feet): 5 Height (Inches): 7.00 Weight (Pounds): 166 Objective General Appearance: normal inspection, alert, Chronically Ill ENT: bipap mask on place Neck: normal inspection, full range of motion, supple, no bony tend Respiratory: normal inspection, lungs clear, no wheezing Cardiovascular # regular rate, rhythm, no edema Gastrointestinal: normal inspection, normal bowel sounds, non tender, soft, no guardinga Musculoskeletal: normal inspection, back normal, normal range of motion Skin: no rash Laboratory Tests Test 04/23/19 05:20 04/23/19 08:56 White Blood Count 3.9 K/UL (4.8-10.8) L Red Blood Count 2.94 M/UL (4.70-6.10) L Hemoglobin 8.4 G/DL (14.2-18.0) L Hematocrit 24.8 % (42.0-52.0) L Mean Corpuscular Volume 85 FL (80-99) Mean Corpuscular Hemoglobin 28.7 PG (27.0-31.0) Mean Corpuscular Hemoglobin Concent 33.9 G/DL (32.0-36.0) Red Cell Distribution Width 15.2 % (11.6-14.8) H Platelet Count 304 K/UL (150-450) Mean Platelet Volume 4.4 FL (6.5-10.1) L Neutrophils (%) (Auto) 66.2 % (45.0-75.0) Lymphocytes (%) (Auto) 16.3 % (20.0-45.0) L Monocytes (%) (Auto) 9.7 % (1.0-10.0) Eosinophils (%) (Auto) 6.2 % (0.0-3.0) H Basophils (%) (Auto) 1.6 % (0.0-2.0) Prothrombin Time 12.1 SEC (9.30-11.50) H Prothromb Time International Ratio 1.1 (0.9-1.1) Activated Partial Thromboplast Time 29 SEC (23-33) Sodium Level 146 MMOL/L (136-145) H Potassium Level 3.6 MMOL/L (3.5-5.1) Chloride Level 111 MMOL/L (98-107) H Carbon Dioxide Level 25 MMOL/L (21-32) Anion Gap 10 mmol/L (5-15) Blood Urea Nitrogen 17 mg/dL (7-18) Creatinine 1.5 MG/DL (0.55-1.30) H Estimat Glomerular Filtration Rate 55.8 mL/min (>60) Glucose Level 72 MG/DL (74-106) L Calcium Level 8.7 MG/DL (8.5-10.1) Arterial Blood pH 7.400 (7.350-7.450) Arterial Blood Partial Pressure CO2 34.7 mmHg (35.0-45.0) L Arterial Blood Partial Pressure O2 81.5 mmHg (75.0-100.0) Arterial Blood HCO3 21.0 mmol/L (22.0-26.0) L Arterial Blood Oxygen Saturation 94.7 % (95-100) L Arterial Blood Base Excess -3.3 (-2-2) L Antonio Test Positive Current Medications Medications (Trade) Dose Ordered Sig/[place] Route PRN Reason Start Time Stop Time Status Last Admin Dose Admin Acetylcysteine (Mucomyst) 200 mg Q4HRT N 04/18/19 11:00 05/18/19 10:59 04/23/19 06:52 Albuterol/ Ipratropium (Albuterol/ Ipratropium) 3 ml Q4HRT N 04/18/19 11:00 04/23/19 10:59 04/23/19 06:52 Cefepime HCl 1 gm/ Dextrose 55 ml @ 110 mls/hr Q24H IVPB 04/21/19 12:00 04/28/19 11:59 04/22/19 12:09 Enoxaparin Sodium (Lovenox) 30 mg DAILY SUBQ 04/14/19 09:00 05/04/19 08:59 04/23/19 09:12 Hydralazine HCl (Apresoline) 10 mg Q4H PRN IV SBP > 170mmHg 04/13/19 15:00 05/08/19 14:59 Lansoprazole (Prevacid) 30 mg DAILY ORAL 04/14/19 09:00 05/13/19 08:59 04/23/19 09:10 Lorazepam (Ativan 2mg/ml 1ml) 1 mg Q6H PRN IV For Anxiety 04/17/19 18:15 04/24/19 18:14 04/19/19 02:34 Memantine (Namenda) 5 mg BID ORAL 04/13/19 18:00 05/04/19 17:59 04/23/19 09:10 Norepinephrine Bitartrate 4 mg/ Dextrose 250 ml @ 0 mls/hr Q24H IV 04/13/19 17:00 05/13/19 16:59 04/14/19 22:57 Tamsulosin HCl (Flomax) 0.4 mg BEDTIME ORAL 04/13/19 21:00 05/13/19 20:59 04/22/19 20:42 Rafia Nielson M.D. Apr 23, 2019 10:13
--- NOTE | 2019-04-23 11:37 | NUR ---
RD ASSESSMENT & RECOMMENDATIONS SEE CARE ACTIVITY FOR COMPLETE ASSESSMENT DAILY ESTIMATED NEEDS: Needs based on Underweight, cancer, Pulmonary 54.7kg 30-35 kcals/kg 3694-8950 total kcals 1.25-2 g protein/kg 68-109 g total protein 25-30 mL/kg 7754-9245 total fluid mLs NUTRITION DIAGNOSIS: Underweight r/t cancer? as evidenced by pt w/ prostate cancer, elevated antigen and calcium levels, w/ generalized moderate wasting, previously poor po intake, pt is 81% of [place] body Weight, currently s/p code blue x2, re-intubated now extubated, NGT feeds held for BIPAP CURRENT TF:Vital @55ml/hr x24 hrs - HELD FOR BIPAP PO DIET RECOMMENDATIONS: IF ORAL DIET INDICATED -> Liberalized REGULAR DIET/ texture per [employer] ENTERAL NUTRITION RECOMMENDATIONS: Vital AF 1.2 @ 55ml/hr x24 hrs to provide 1320ml, 1584 kcal, 99g prom 1071ml free H2O - Resume TF once off of BIPAP. - Rec increased goal rate of 60ml/hr to meet 100% est kcal needs. - Flush per MD/ HOB over 30 degrees ADDITIONAL RECOMMENDATIONS: 1) Recalibrated bed wts for daily wts -> daily wts are inconsistent 2) Wound healing: add MVI + Vit C 250mg QD/ Coleman BID once TF resumes 3) Monitor lytes, replete as needed 4) MONITOR BIPAP USAGE, ABILITY TO FEED -> mostly on BIPAP since 04/21 5) Monitor Ca: previously elevated / rec NEPRO should calcium trend up for lowest calcium content
[2019-04-23] MEDS: Cefepime HCl 1 GM in D5W 55 ML IVPB SCH (11:55)
--- NOTE | 2019-04-23 12:00 | NUR ---
NURSE NOTES: VS remain stable, while pt remains on Bipap 18/5, FIO2 30%. Pt remains afebrile. NGT feeding is currently on hold while pt is on Bipap. Pt was repositioned.
--- NOTE | 2019-04-23 13:30 | General Progress Note ---
Assessment/Plan Status: unchanged Assessment/Plan: Assessment/Plan Problems: (1) Coffee ground emesis (2) Anemia (3) metastatic prostate CA (4) respiratory failure extubated in the ICU NGTF will resume ppi PEG was canceled due to patient being on BIPAP will plan when patient is more stable will fu Subjective ROS Limited/Unobtainable: No Allergies: Coded Allergies: No Known Allergies (Unverified , 04/03/19) Objective Last 24 Hour Vital Signs Date Time Temp Pulse Resp B/P (MAP) Pulse Ox O2 Delivery O2 Flow Rate FiO2 04/23/19 13:00 98 20 116/78 (91) 100 04/23/19 12:00 Bi-pap 04/23/19 12:00 97.7 100 19 136/92 (107) 99 04/23/19 12:00 98 04/23/19 12:00 30 04/23/19 11:28 101 21 98 30 04/23/19 11:00 100 21 131/84 (100) 100 04/23/19 10:00 102 21 116/74 (88) 100 04/23/19 09:00 104 19 112/75 (87) 100 04/23/19 08:59 104 14 99 30 04/23/19 08:00 Bi-pap 04/23/19 08:00 105 04/23/19 08:00 30 04/23/19 08:00 97.5 108 24 119/77 (91) 99 04/23/19 07:06 114 16 100 30 04/23/19 07:03 114 24 100 Nasal Cannula 2.0 28 112 24 100 04/23/19 07:02 100 Nasal Cannula 2.0 28 04/23/19 07:00 119 25 145/86 (105) 100 04/23/19 06:00 106 21 116/74 (88) 100 04/23/19 05:26 102 17 100 30 04/23/19 05:00 101 17 133/74 (93) 100 04/23/19 04:00 109 04/23/19 04:00 30 04/23/19 04:00 97.3 100 15 126/75 (92) 100 04/23/19 04:00 Bi-pap 04/23/19 03:29 105 19 100 Bi-Pap 30 106 22 100 04/23/19 03:00 112 25 114/79 (91) 100 04/23/19 02:00 103 19 111/69 (83) 100 04/23/19 01:00 105 20 107/68 (81) 100 04/23/19 00:38 109 23 100 30 04/23/19 00:00 114 04/23/19 00:00 Bi-pap 04/23/19 00:00 30 04/23/19 00:00 97.2 112 22 118/71 (87) 99 04/22/19 23:00 113 24 133/82 (99) 100 04/22/19 22:56 108 23 100 Bi-Pap 30 102 20 100 04/22/19 22:30 106 20 113/70 (84) 04/22/19 22:00 102 18 112/67 (82) 99 04/22/19 21:30 100 19 103/65 (78) 99 04/22/19 21:05 100 17 100 30 04/22/19 21:00 108 23 129/75 (93) 99 04/22/19 20:00 97.6 97 21 111/75 (87) 98 04/22/19 20:00 Bi-pap 04/22/19 20:00 30 04/22/19 20:00 106 04/22/19 19:19 100 Bi-Pap 30 04/22/19 19:16 105 15 100 Bi-Pap 30 102 16 100 04/22/19 19:00 106 20 122/79 (93) 100 04/22/19 18:00 97 16 118/78 (91) 100 04/22/19 17:16 104 18 100 30 04/22/19 17:00 100 19 115/79 (91) 97 04/22/19 17:00 115/79 04/22/19 16:22 102 04/22/19 16:00 Bi-pap 30.0 04/22/19 16:00 30 04/22/19 16:00 97.1 97 15 110/72 (85) 100 04/22/19 15:12 95 16 95 Bi-Pap 30 97 18 100 30 04/22/19 15:00 104 19 118/74 (89) 100 04/22/19 14:00 101 20 113/74 (87) 100 Intake and Output 04/22/19 04/23/19 19:00 07:00 Intake Total 255 ml 200 ml Output Total 435 ml 400 ml Balance -180 ml -200 ml Free Water 200 ml IV Total 255 ml Output Urine Total 435 ml 400 ml # Bowel Movements 1 Laboratory Tests 04/23/19 05:20: White Blood Count 3.9L, Red Blood Count 2.94L, Hemoglobin 8.4L, Hematocrit 24.8L , Mean Corpuscular Volume 85, Mean Corpuscular Hemoglobin 28.7, Mean Corpuscular Hemoglobin Concent 33.9, Red Cell Distribution Width 15.2H, Platelet Count 304, Mean Platelet Volume 4.4L, Neutrophils (%) (Auto) 66.2, Lymphocytes (%) (Auto) 16.3L, Monocytes (%) (Auto) 9.7, Eosinophils (%) (Auto) 6.2H, Basophils (%) (Auto) 1.6, Prothrombin Time 12.1H, Prothromb Time International Ratio 1.1, Activated Partial Thromboplast Time 29, Sodium Level 146H, Potassium Level 3.6, Chloride Level 111H, Carbon Dioxide Level 25, Anion Gap 10, Blood Urea Nitrogen 17, Creatinine 1.5H, Estimat Glomerular Filtration Rate 55.8, Glucose Level 72L, Calcium Level 8.7 04/23/19 08:56: Arterial Blood pH 7.400, Arterial Blood Partial Pressure CO2 34.7L, Arterial Blood Partial Pressure O2 81.5, Arterial Blood HCO3 21.0L, Arterial Blood Oxygen Saturation 94.7L, Arterial Blood Base Excess -3.3L, Antonio Test Positive Height (Feet): 5 Height (Inches): 7.00 Weight (Pounds): 166 General Appearance: alert EENT: normal ENT inspection Neck: supple Cardiovascular: normal rate Respiratory/Chest: decreased breath sounds Abdomen: normal bowel sounds, non tender, soft Extremities: non-tender Tyrone Lamb MD Apr 23, 2019 13:30
--- NOTE | 2019-04-23 13:31 | Surgery Progress Note ---
Surgery Progress Note Subjective Procedure Performed right femoral central venous catheter insertion Additional Comments Patient seen and examined bedside. Extubated doing well on BiPAP. No complaints. He is awake alert responsive. Of note this is a late entry for April 22, 2019 as I was called to the emergency department following to the operating room was unable to complete note Objective Last 24 Hour Vital Signs Date Time Temp Pulse Resp B/P (MAP) Pulse Ox O2 Delivery O2 Flow Rate FiO2 04/23/19 13:00 98 20 116/78 (91) 100 04/23/19 12:00 Bi-pap 04/23/19 12:00 97.7 100 19 136/92 (107) 99 04/23/19 12:00 98 04/23/19 12:00 30 04/23/19 11:28 101 21 98 30 04/23/19 11:00 100 21 131/84 (100) 100 04/23/19 10:00 102 21 116/74 (88) 100 04/23/19 09:00 104 19 112/75 (87) 100 04/23/19 08:59 104 14 99 30 04/23/19 08:00 Bi-pap 04/23/19 08:00 105 04/23/19 08:00 30 04/23/19 08:00 97.5 108 24 119/77 (91) 99 04/23/19 07:06 114 16 100 30 04/23/19 07:03 114 24 100 Nasal Cannula 2.0 28 112 24 100 04/23/19 07:02 100 Nasal Cannula 2.0 28 04/23/19 07:00 119 25 145/86 (105) 100 04/23/19 06:00 106 21 116/74 (88) 100 04/23/19 05:26 102 17 100 30 04/23/19 05:00 101 17 133/74 (93) 100 04/23/19 04:00 109 04/23/19 04:00 30 04/23/19 04:00 97.3 100 15 126/75 (92) 100 04/23/19 04:00 Bi-pap 04/23/19 03:29 105 19 100 Bi-Pap 30 106 22 100 04/23/19 03:00 112 25 114/79 (91) 100 04/23/19 02:00 103 19 111/69 (83) 100 04/23/19 01:00 105 20 107/68 (81) 100 04/23/19 00:38 109 23 100 30 04/23/19 00:00 114 04/23/19 00:00 Bi-pap 04/23/19 00:00 30 04/23/19 00:00 97.2 112 22 118/71 (87) 99 04/22/19 23:00 113 24 133/82 (99) 100 04/22/19 22:56 108 23 100 Bi-Pap 30 102 20 100 04/22/19 22:30 106 20 113/70 (84) 04/22/19 22:00 102 18 112/67 (82) 99 04/22/19 21:30 100 19 103/65 (78) 99 04/22/19 21:05 100 17 100 30 04/22/19 21:00 108 23 129/75 (93) 99 04/22/19 20:00 97.6 97 21 111/75 (87) 98 04/22/19 20:00 Bi-pap 04/22/19 20:00 30 04/22/19 20:00 106 04/22/19 19:19 100 Bi-Pap 30 04/22/19 19:16 105 15 100 Bi-Pap 30 102 16 100 04/22/19 19:00 106 20 122/79 (93) 100 04/22/19 18:00 97 16 118/78 (91) 100 04/22/19 17:16 104 18 100 30 04/22/19 17:00 100 19 115/79 (91) 97 04/22/19 17:00 115/79 04/22/19 16:22 102 04/22/19 16:00 Bi-pap 30.0 04/22/19 16:00 30 04/22/19 16:00 97.1 97 15 110/72 (85) 100 04/22/19 15:12 95 16 95 Bi-Pap 30 97 18 100 30 04/22/19 15:00 104 19 118/74 (89) 100 04/22/19 14:00 101 20 113/74 (87) 100 I&O Intake and Output 04/22/19 04/23/19 19:00 07:00 Intake Total 255 ml 200 ml Output Total 435 ml 400 ml Balance -180 ml -200 ml Free Water 200 ml IV Total 255 ml Output Urine Total 435 ml 400 ml # Bowel Movements 1 Dressing: other Wound: other Drains: other Cardiovascular: RSR Respiratory: decreased breath sounds Abdomen: soft, present bowel sounds Extremities: no cyanosis Laboratory Tests Test 04/23/19 05:20 04/23/19 08:56 White Blood Count 3.9 K/UL (4.8-10.8) L Red Blood Count 2.94 M/UL (4.70-6.10) L Hemoglobin 8.4 G/DL (14.2-18.0) L Hematocrit 24.8 % (42.0-52.0) L Mean Corpuscular Volume 85 FL (80-99) Mean Corpuscular Hemoglobin 28.7 PG (27.0-31.0) Mean Corpuscular Hemoglobin Concent 33.9 G/DL (32.0-36.0) Red Cell Distribution Width 15.2 % (11.6-14.8) H Platelet Count 304 K/UL (150-450) Mean Platelet Volume 4.4 FL (6.5-10.1) L Neutrophils (%) (Auto) 66.2 % (45.0-75.0) Lymphocytes (%) (Auto) 16.3 % (20.0-45.0) L Monocytes (%) (Auto) 9.7 % (1.0-10.0) Eosinophils (%) (Auto) 6.2 % (0.0-3.0) H Basophils (%) (Auto) 1.6 % (0.0-2.0) Prothrombin Time 12.1 SEC (9.30-11.50) H Prothromb Time International Ratio 1.1 (0.9-1.1) Activated Partial Thromboplast Time 29 SEC (23-33) Sodium Level 146 MMOL/L (136-145) H Potassium Level 3.6 MMOL/L (3.5-5.1) Chloride Level 111 MMOL/L (98-107) H Carbon Dioxide Level 25 MMOL/L (21-32) Anion Gap 10 mmol/L (5-15) Blood Urea Nitrogen 17 mg/dL (7-18) Creatinine 1.5 MG/DL (0.55-1.30) H Estimat Glomerular Filtration Rate 55.8 mL/min (>60) Glucose Level 72 MG/DL (74-106) L Calcium Level 8.7 MG/DL (8.5-10.1) Arterial Blood pH 7.400 (7.350-7.450) Arterial Blood Partial Pressure CO2 34.7 mmHg (35.0-45.0) L Arterial Blood Partial Pressure O2 81.5 mmHg (75.0-100.0) Arterial Blood HCO3 21.0 mmol/L (22.0-26.0) L Arterial Blood Oxygen Saturation 94.7 % (95-100) L Arterial Blood Base Excess -3.3 (-2-2) L Antonio Test Positive Plan Problems: (1) Cardiac arrest Assessment & Plan: Acute deterioration Cardiovascular lopez ACLS required for resuscitation Still full code Hypotensive intensive care unit requiring a new central venous catheter see note Antibiotics as per infectious caries cont current treatment improving trend labs diet as tolerated improving on bipap may require intubation if so will recommend trach will follow with fermin thank you (2) Stage III adenocarcinoma of prostate Assessment & Plan: patient with state 3 prostate cancer pending treatment at [facility] unlikely related to acute cardiac arrest this am abd exam with mild distention no acute surgical intervention planned onc input improving extubated diet as tolerated thank you will follow with Jay Conrad Apr 23, 2019 13:31
--- NOTE | 2019-04-23 14:00 | NUR ---
NURSE NOTES: Pt was started on Lasix drip per Dr Mathews's order. VS remain stable, while pt remains on Bipap 18/5, FIO2 30%. Pt was seen by Dr Toussaint, no new orders were received at this time.
--- NOTE | 2019-04-23 14:12 | General Progress Note ---
Assessment/Plan Problem List: (1) UTI (urinary tract infection) ICD Codes: N39.0 - Urinary tract infection, site not specified SNOMED: 61037006 (2) Weak ICD Codes: R53.1 - Weakness SNOMED: 34850641 (3) Anemia ICD Codes: D64.9 - Anemia, unspecified SNOMED: 385488388 (4) Dehydration ICD Codes: E86.0 - Dehydration SNOMED: 99910336, 01444105 (5) Episode of generalized weakness ICD Codes: R53.1 - Weakness SNOMED: 98734048 (6) Stage III adenocarcinoma of prostate ICD Codes: C61 - Malignant neoplasm of prostate SNOMED: 899834113, 39211453 Status: unchanged Assessment/Plan: o2 pulm tx pt diet abx iv fluid heme gi eval cbc bmp am Subjective Constitutional: Reports: weakness Allergies: Coded Allergies: No Known Allergies (Unverified , 04/03/19) All Systems: reviewed and negative except above Subjective o2 mask in icu Objective Last 24 Hour Vital Signs Date Time Temp Pulse Resp B/P (MAP) Pulse Ox O2 Delivery O2 Flow Rate FiO2 04/23/19 14:00 95 19 120/74 (89) 100 04/23/19 13:00 98 20 116/78 (91) 100 04/23/19 12:00 Bi-pap 04/23/19 12:00 97.7 100 19 136/92 (107) 99 04/23/19 12:00 98 04/23/19 12:00 30 04/23/19 11:28 101 21 98 30 04/23/19 11:00 100 21 131/84 (100) 100 04/23/19 10:00 102 21 116/74 (88) 100 04/23/19 09:00 104 19 112/75 (87) 100 04/23/19 08:59 104 14 99 30 04/23/19 08:00 Bi-pap 04/23/19 08:00 105 04/23/19 08:00 30 04/23/19 08:00 97.5 108 24 119/77 (91) 99 04/23/19 07:06 114 16 100 30 04/23/19 07:03 114 24 100 Nasal Cannula 2.0 28 112 24 100 04/23/19 07:02 100 Nasal Cannula 2.0 28 2/20/20 07:00 119 25 145/86 (105) 100 04/23/19 06:00 106 21 116/74 (88) 100 04/23/19 05:26 102 17 100 30 04/23/19 05:00 101 17 133/74 (93) 100 04/23/19 04:00 109 04/23/19 04:00 30 04/23/19 04:00 97.3 100 15 126/75 (92) 100 04/23/19 04:00 Bi-pap 04/23/19 03:29 105 19 100 Bi-Pap 30 106 22 100 04/23/19 03:00 112 25 114/79 (91) 100 04/23/19 02:00 103 19 111/69 (83) 100 04/23/19 01:00 105 20 107/68 (81) 100 04/23/19 00:38 109 23 100 30 04/23/19 00:00 114 04/23/19 00:00 Bi-pap 04/23/19 00:00 30 04/23/19 00:00 97.2 112 22 118/71 (87) 99 04/22/19 23:00 113 24 133/82 (99) 100 04/22/19 22:56 108 23 100 Bi-Pap 30 102 20 100 04/22/19 22:30 106 20 113/70 (84) 04/22/19 22:00 102 18 112/67 (82) 99 04/22/19 21:30 100 19 103/65 (78) 99 04/22/19 21:05 100 17 100 30 04/22/19 21:00 108 23 129/75 (93) 99 04/22/19 20:00 97.6 97 21 111/75 (87) 98 04/22/19 20:00 Bi-pap 04/22/19 20:00 30 04/22/19 20:00 106 04/22/19 19:19 100 Bi-Pap 30 04/22/19 19:16 105 15 100 Bi-Pap 30 102 16 100 04/22/19 19:00 106 20 122/79 (93) 100 04/22/19 18:00 97 16 118/78 (91) 100 04/22/19 17:16 104 18 100 30 04/22/19 17:00 100 19 115/79 (91) 97 04/22/19 17:00 115/79 04/22/19 16:22 102 04/22/19 16:00 Bi-pap 30.0 04/22/19 16:00 30 04/22/19 16:00 97.1 97 15 110/72 (85) 100 04/22/19 15:12 95 16 95 Bi-Pap 30 97 18 100 30 04/22/19 15:00 104 19 118/74 (89) 100 Intake and Output 04/22/19 04/23/19 19:00 07:00 Intake Total 255 ml 200 ml Output Total 435 ml 400 ml Balance -180 ml -200 ml Free Water 200 ml IV Total 255 ml Output Urine Total 435 ml 400 ml # Bowel Movements 1 Laboratory Tests 04/23/19 05:20: White Blood Count 3.9L, Red Blood Count 2.94L, Hemoglobin 8.4L, Hematocrit 24.8L , Mean Corpuscular Volume 85, Mean Corpuscular Hemoglobin 28.7, Mean Corpuscular Hemoglobin Concent 33.9, Red Cell Distribution Width 15.2H, Platelet Count 304, Mean Platelet Volume 4.4L, Neutrophils (%) (Auto) 66.2, Lymphocytes (%) (Auto) 16.3L, Monocytes (%) (Auto) 9.7, Eosinophils (%) (Auto) 6.2H, Basophils (%) (Auto) 1.6, Prothrombin Time 12.1H, Prothromb Time International Ratio 1.1, Activated Partial Thromboplast Time 29, Sodium Level 146H, Potassium Level 3.6, Chloride Level 111H, Carbon Dioxide Level 25, Anion Gap 10, Blood Urea Nitrogen 17, Creatinine 1.5H, Estimat Glomerular Filtration Rate 55.8, Glucose Level 72L, Calcium Level 8.7 04/23/19 08:56: Arterial Blood pH 7.400, Arterial Blood Partial Pressure CO2 34.7L, Arterial Blood Partial Pressure O2 81.5, Arterial Blood HCO3 21.0L, Arterial Blood Oxygen Saturation 94.7L, Arterial Blood Base Excess -3.3L, Antonio Test Positive Height (Feet): 5 Height (Inches): 7.00 Weight (Pounds): 166 General Appearance: lethargic EENT: normal ENT inspection Neck: normal alignment Cardiovascular: normal peripheral pulses, normal rate, regular rhythm Respiratory/Chest: chest wall non-tender, decreased breath sounds Abdomen: normal bowel sounds, non tender, soft Extremities: normal inspection Edema: no edema noted Arm (L), no edema noted Arm (R), no edema noted Leg (L), no edema noted Leg (R), no edema noted Pedal (L), no edema noted Pedal (R), no edema noted Generalized Neurologic: motor weakness Skin: normal pigmentation, warm/dry Sawyer Toussaint DO Apr 23, 2019 14:12
--- NOTE | 2019-04-23 15:45 | Progress Note ---
DATE: 04/23/2019 SUBJECTIVE: This is a 73-year-old male patient with generalized weakness. This patient does have some altered mental status worsened by stress of his medical illness and he has some psychomotor agitation. The patient was seen and assessed in the ICU. He has some significant psychomotor agitation as well as confusion, that is why his attending has continued to request daily psychiatric consultation. He has coffee-grounds emesis and stage III adenocarcinoma. He also has dehydration, weakness, urinary tract infection, and anemia. Cognition has declined below his baseline. That is why, his attending has requested daily psychiatric consultation. MENTAL STATUS EXAMINATION: This is a 73-year-old male. Appearance is disheveled. Attitude, irritable and agitated. Affect, guarded and restricted. Intellect, poor. Mood, depressed and anxious. Motor activity, psychomotor agitation. Insight and judgment is poor. DIAGNOSIS: Major depressive disorder, mild recurrent with psychotic features. PLAN: Namenda 5 mg twice a day and Ativan 1 mg IV every 6 hours p.r.n. anxiety and agitation. A 20 minutes of insight-oriented psychotherapy to help the patient recognize psychiatric and cognitive impairments as well as physical problems so he has better impulse control and behavior on the unit. A 20 minutes of insight-oriented psychotherapy provided. Chart reviewed. Discussed with staff. Seen and assessed in the ICU at bedside. Cherise Palma M.D. DR: ACE JOB#: [id number] CC:
--- NOTE | 2019-04-23 16:00 | NUR ---
NURSE NOTES: Pt had BM x1, soft/brown. Pt was cleaned, gown/bed linens were changed. Pt was repositioned. Oral care was done. VS remain stable. Pt remains on Bipap 18/5 at 100% O2Sat. Denies any pain at this time.
--- NOTE | 2019-04-23 17:25 | Cardiac Electrophysiology PN ---
Assessment/Plan Assessment/Plan 1. Status post 2 non infarctional separate juan antonio arrest with asystole. Both episodes happened in the setting of respiratory failure and off the Vent No evidence of ventricular tachycardia or ventricular fibrillation. Off any GARCÍA or AVN olivia EF 65%. All 3 troponins were less than 0.1. Watch for recurrence of bradycardia 2. Recurrent Respiratory failure, extubated 04/08/19 and reintubated 04/13/19 and rextubated 04/19/19 Back on BIPAP 3. History of stage III prostate cancer, followed by Dr. Monroy and Dr Root. Morales was changed. Follows up at [facility] 4. Shock. Off Levophed on iv Abx. 5. Hypercalcemia due to prostate cancer. 6. Hypernatremia. 7. Anemia, s/p PRBC 04/08/19. Hb 7 again. S/P1 unit PRBC 8. Low K. Replace 9. Dysphagia, Family refused PEG by Dr Lamb 10. Pleural effusion, on Lasix drip as family refusedThoracentesis MIKE RN Subjective Subjective In ICU back on BIPAP. No juan antonio yet. NGT feeding. Started on LAsix drip per Dr Mathews as family refused thoracentesis or PEG placement Objective Last 24 Hour Vital Signs Date Time Temp Pulse Resp B/P (MAP) Pulse Ox O2 Delivery O2 Flow Rate FiO2 04/23/19 16:54 101 17 100 30 04/23/19 15:01 95 16 100 Bi-Pap 30 96 15 100 04/23/19 15:00 98 20 118/77 (91) 100 04/23/19 14:00 98 20 118/77 (91) 100 04/23/19 14:00 95 19 120/74 (89) 100 04/23/19 13:00 96 18 99 30 04/23/19 13:00 98 20 116/78 (91) 100 04/23/19 13:00 96 18 99 Bi-Pap 30 04/23/19 12:00 Bi-pap 04/23/19 12:00 97.7 100 19 136/92 (107) 99 04/23/19 12:00 98 04/23/19 12:00 30 04/23/19 11:28 101 21 98 30 04/23/19 11:00 100 21 131/84 (100) 100 2/20/20 10:00 102 21 116/74 (88) 100 04/23/19 09:00 104 19 112/75 (87) 100 04/23/19 08:59 104 14 99 30 04/23/19 08:00 Bi-pap 04/23/19 08:00 105 04/23/19 08:00 30 04/23/19 08:00 97.5 108 24 119/77 (91) 99 04/23/19 07:06 114 16 100 30 04/23/19 07:03 114 24 100 Nasal Cannula 2.0 28 112 24 100 04/23/19 07:02 100 Nasal Cannula 2.0 28 04/23/19 07:00 119 25 145/86 (105) 100 04/23/19 06:00 106 21 116/74 (88) 100 04/23/19 05:26 102 17 100 30 04/23/19 05:00 101 17 133/74 (93) 100 04/23/19 04:00 109 04/23/19 04:00 30 04/23/19 04:00 97.3 100 15 126/75 (92) 100 04/23/19 04:00 Bi-pap 04/23/19 03:29 105 19 100 Bi-Pap 30 106 22 100 04/23/19 03:00 112 25 114/79 (91) 100 04/23/19 02:00 103 19 111/69 (83) 100 04/23/19 01:00 105 20 107/68 (81) 100 04/23/19 00:38 109 23 100 30 04/23/19 00:00 114 04/23/19 00:00 Bi-pap 04/23/19 00:00 30 04/23/19 00:00 97.2 112 22 118/71 (87) 99 04/22/19 23:00 113 24 133/82 (99) 100 04/22/19 22:56 108 23 100 Bi-Pap 30 102 20 100 04/22/19 22:30 106 20 113/70 (84) 04/22/19 22:00 102 18 112/67 (82) 99 04/22/19 21:30 100 19 103/65 (78) 99 04/22/19 21:05 100 17 100 30 04/22/19 21:00 108 23 129/75 (93) 99 04/22/19 20:00 97.6 97 21 111/75 (87) 98 04/22/19 20:00 Bi-pap 04/22/19 20:00 30 04/22/19 20:00 106 04/22/19 19:19 100 Bi-Pap 30 04/22/19 19:16 105 15 100 Bi-Pap 30 102 16 100 04/22/19 19:00 106 20 122/79 (93) 100 04/22/19 18:00 97 16 118/78 (91) 100 Intake and Output 04/22/19 04/23/19 19:00 07:00 Intake Total 255 ml 200 ml Output Total 435 ml 400 ml Balance -180 ml -200 ml Free Water 200 ml IV Total 255 ml Output Urine Total 435 ml 400 ml # Bowel Movements 1 Laboratory Tests Test 04/23/19 05:20 04/23/19 08:56 White Blood Count 3.9 K/UL (4.8-10.8) L Red Blood Count 2.94 M/UL (4.70-6.10) L Hemoglobin 8.4 G/DL (14.2-18.0) L Hematocrit 24.8 % (42.0-52.0) L Mean Corpuscular Volume 85 FL (80-99) Mean Corpuscular Hemoglobin 28.7 PG (27.0-31.0) Mean Corpuscular Hemoglobin Concent 33.9 G/DL (32.0-36.0) Red Cell Distribution Width 15.2 % (11.6-14.8) H Platelet Count 304 K/UL (150-450) Mean Platelet Volume 4.4 FL (6.5-10.1) L Neutrophils (%) (Auto) 66.2 % (45.0-75.0) Lymphocytes (%) (Auto) 16.3 % (20.0-45.0) L Monocytes (%) (Auto) 9.7 % (1.0-10.0) Eosinophils (%) (Auto) 6.2 % (0.0-3.0) H Basophils (%) (Auto) 1.6 % (0.0-2.0) Prothrombin Time 12.1 SEC (9.30-11.50) H Prothromb Time International Ratio 1.1 (0.9-1.1) Activated Partial Thromboplast Time 29 SEC (23-33) Sodium Level 146 MMOL/L (136-145) H Potassium Level 3.6 MMOL/L (3.5-5.1) Chloride Level 111 MMOL/L (98-107) H Carbon Dioxide Level 25 MMOL/L (21-32) Anion Gap 10 mmol/L (5-15) Blood Urea Nitrogen 17 mg/dL (7-18) Creatinine 1.5 MG/DL (0.55-1.30) H Estimat Glomerular Filtration Rate 55.8 mL/min (>60) Glucose Level 72 MG/DL (74-106) L Calcium Level 8.7 MG/DL (8.5-10.1) Arterial Blood pH 7.400 (7.350-7.450) Arterial Blood Partial Pressure CO2 34.7 mmHg (35.0-45.0) L Arterial Blood Partial Pressure O2 81.5 mmHg (75.0-100.0) Arterial Blood HCO3 21.0 mmol/L (22.0-26.0) L Arterial Blood Oxygen Saturation 94.7 % (95-100) L Arterial Blood Base Excess -3.3 (-2-2) L Antonio Test Positive Objective HEENT: No JVD. BIPAP is on LUNGS: Coarse rhonchi. CARDIOVASCULAR: Regular S1 and S2 ABDOMEN: Soft and nondistended. EXTREMITIES: No pitting edema. Nain Cortez MD Apr 23, 2019 17:25
--- NOTE | 2019-04-23 18:00 | NUR ---
NURSE NOTES: VS remains stable while pt is maintained on Bipap 18/5 with no signs/symptoms of any pain or discomfort noted. Pt was repositioned.
--- NOTE | 2019-04-23 18:41 | Pulmonology Progress Note ---
Assessment/Plan Assessment/Plan IMPRESSION: 1. Status post asystolic cardiac arrest. Again on 04/13/19 2. Respiratory failure, re-intubated; and now extubated 04/20/19 3. Altered mental status. Resolved 4. Hypernatremia. Corrected. 5. Hypokalemia . Corrected. 6. History of COPD. 7. Prostate CA. DISCUSSION: 1. Discussed with cardiology and PMD 2. Discussed with daughter in law (James), son (Abdoul) and sister 3. Doing well post extubation 5. Dc diuretics 6. Transfused CXR looking better; Needs PEG; would not advise PO diet again Remains intermittently on BiPAP has large left pleural effusion, family refuses thoracentesis. Will increase diuresis Ganesh Mathews M.D. Subjective Interval Events: family refused thoracentesis Constitutional: Reports: no symptoms HEENT: Repors: no symptoms Respiratory: Reports: no symptoms Cardiovascular: Reports: no symptoms Gastrointestinal/Abdominal: Reports: no symptoms Allergies: Coded Allergies: No Known Allergies (Unverified , 04/03/19) Objective Last 24 Hour Vital Signs Date Time Temp Pulse Resp B/P (MAP) Pulse Ox O2 Delivery O2 Flow Rate FiO2 04/23/19 18:00 98 16 134/84 (101) 100 04/23/19 17:00 90 16 110/74 (86) 100 04/23/19 16:54 101 17 100 30 04/23/19 16:00 30 04/23/19 16:00 97.9 97 18 119/76 (90) 99 04/23/19 16:00 92 04/23/19 16:00 Bi-pap 04/23/19 15:01 95 16 100 Bi-Pap 30 96 15 100 04/23/19 15:00 98 20 118/77 (91) 100 04/23/19 14:00 98 20 118/77 (91) 100 04/23/19 14:00 95 19 120/74 (89) 100 04/23/19 13:00 96 18 99 30 04/23/19 13:00 98 20 116/78 (91) 100 04/23/19 13:00 96 18 99 Bi-Pap 30 04/23/19 12:00 Bi-pap 04/23/19 12:00 97.7 100 19 136/92 (107) 99 04/23/19 12:00 98 04/23/19 12:00 30 04/23/19 11:28 101 21 98 30 04/23/19 11:00 100 21 131/84 (100) 100 04/23/19 10:00 102 21 116/74 (88) 100 04/23/19 09:00 104 19 112/75 (87) 100 04/23/19 08:59 104 14 99 30 04/23/19 08:00 Bi-pap 04/23/19 08:00 105 04/23/19 08:00 30 04/23/19 08:00 97.5 108 24 119/77 (91) 99 04/23/19 07:06 114 16 100 30 04/23/19 07:03 114 24 100 Nasal Cannula 2.0 28 112 24 100 04/23/19 07:02 100 Nasal Cannula 2.0 28 04/23/19 07:00 119 25 145/86 (105) 100 04/23/19 06:00 106 21 116/74 (88) 100 04/23/19 05:26 102 17 100 30 04/23/19 05:00 101 17 133/74 (93) 100 04/23/19 04:00 109 04/23/19 04:00 30 04/23/19 04:00 97.3 100 15 126/75 (92) 100 04/23/19 04:00 Bi-pap 04/23/19 03:29 105 19 100 Bi-Pap 30 106 22 100 04/23/19 03:00 112 25 114/79 (91) 100 04/23/19 02:00 103 19 111/69 (83) 100 04/23/19 01:00 105 20 107/68 (81) 100 04/23/19 00:38 109 23 100 30 04/23/19 00:00 114 04/23/19 00:00 Bi-pap 04/23/19 00:00 30 04/23/19 00:00 97.2 112 22 118/71 (87) 99 04/22/19 23:00 113 24 133/82 (99) 100 04/22/19 22:56 108 23 100 Bi-Pap 30 102 20 100 04/22/19 22:30 106 20 113/70 (84) 04/22/19 22:00 102 18 112/67 (82) 99 04/22/19 21:30 100 19 103/65 (78) 99 04/22/19 21:05 100 17 100 30 04/22/19 21:00 108 23 129/75 (93) 99 04/22/19 20:00 97.6 97 21 111/75 (87) 98 04/22/19 20:00 Bi-pap 04/22/19 20:00 30 04/22/19 20:00 106 04/22/19 19:19 100 Bi-Pap 30 04/22/19 19:16 105 15 100 Bi-Pap 30 102 16 100 04/22/19 19:00 106 20 122/79 (93) 100 Intake and Output 04/22/19 04/23/19 19:00 07:00 Intake Total 255 ml 200 ml Output Total 435 ml 400 ml Balance -180 ml -200 ml Free Water 200 ml IV Total 255 ml Output Urine Total 435 ml 400 ml # Bowel Movements 1 General Appearance: no acute distress HEENT: normocephalic Respiratory/Chest: chest wall non-tender, decreased breath sounds Cardiovascular: normal peripheral pulses, normal rate Abdomen: normal bowel sounds Laboratory Tests 04/23/19 05:20: White Blood Count 3.9L, Red Blood Count 2.94L, Hemoglobin 8.4L, Hematocrit 24.8L , Mean Corpuscular Volume 85, Mean Corpuscular Hemoglobin 28.7, Mean Corpuscular Hemoglobin Concent 33.9, Red Cell Distribution Width 15.2H, Platelet Count 304, Mean Platelet Volume 4.4L, Neutrophils (%) (Auto) 66.2, Lymphocytes (%) (Auto) 16.3L, Monocytes (%) (Auto) 9.7, Eosinophils (%) (Auto) 6.2H, Basophils (%) (Auto) 1.6, Prothrombin Time 12.1H, Prothromb Time International Ratio 1.1, Activated Partial Thromboplast Time 29, Sodium Level 146H, Potassium Level 3.6, Chloride Level 111H, Carbon Dioxide Level 25, Anion Gap 10, Blood Urea Nitrogen 17, Creatinine 1.5H, Estimat Glomerular Filtration Rate 55.8, Glucose Level 72L, Calcium Level 8.7 04/23/19 08:56: Arterial Blood pH 7.400, Arterial Blood Partial Pressure CO2 34.7L, Arterial Blood Partial Pressure O2 81.5, Arterial Blood HCO3 21.0L, Arterial Blood Oxygen Saturation 94.7L, Arterial Blood Base Excess -3.3L, Antonio Test Positive Current Medications Medications (Trade) Dose Ordered Sig/[place] Route PRN Reason Start Time Stop Time Status Last Admin Dose Admin Acetylcysteine (Mucomyst) 200 mg Q4HRT N 04/18/19 11:00 05/18/19 10:59 04/23/19 14:51 Albuterol/ Ipratropium (Albuterol/ Ipratropium) 3 ml Q4HRT N 04/23/19 15:00 04/28/19 14:59 04/23/19 14:51 Cefepime HCl 1 gm/ Dextrose 55 ml @ 110 mls/hr Q24H IVPB 04/21/19 12:00 04/28/19 11:59 04/23/19 11:55 Enoxaparin Sodium (Lovenox) 30 mg DAILY SUBQ 04/14/19 09:00 05/04/19 08:59 04/23/19 09:12 Furosemide 100 mg/ Dextrose 100 ml @ 10 mls/hr Q10H IV 04/23/19 14:00 05/23/19 13:59 04/23/19 13:42 Hydralazine HCl (Apresoline) 10 mg Q4H PRN IV SBP > 170mmHg 04/13/19 15:00 05/08/19 14:59 Lansoprazole (Prevacid) 30 mg DAILY ORAL 04/14/19 09:00 05/13/19 08:59 04/23/19 09:10 Lorazepam (Ativan 2mg/ml 1ml) 1 mg Q6H PRN IV For Anxiety 04/17/19 18:15 04/24/19 18:14 04/19/19 02:34 Memantine (Namenda) 5 mg BID ORAL 04/13/19 18:00 05/04/19 17:59 04/23/19 17:12 Norepinephrine Bitartrate 4 mg/ Dextrose 250 ml @ 0 mls/hr Q24H IV 04/13/19 17:00 05/13/19 16:59 04/14/19 22:57 Tamsulosin HCl (Flomax) 0.4 mg BEDTIME ORAL 04/13/19 21:00 05/13/19 20:59 04/22/19 20:42 Ganesh Mathews MD Apr 23, 2019 18:41
--- NOTE | 2019-04-23 19:11 | NUR ---
CASE MANAGEMENT: REVIEW 04/23/2019 SI:Status post noninfarctional 2 separate juan antonio arrest with asystole. UTI (urinary tract infection). T 97.9 HR 97 RR 18 B/P 119/76 SATS 99% ON BIPAP FIO2 30 LABS: WBC 3.9 NA 146 CL 111 CR 1.5 GLU 72 ABGs: PCO2 34.7 HCO3 21 O2 SAT 94.7 BE -3.3 IS:FLOMAX PO QHS NAMENDA PO BID CEFEPIME IV Q24H HYDRALAZINE NG Q12H LEVOPHED PER PARAMETERS VANCO IV Q24H LASIX IV @ 10 mL/HR ICU
--- NOTE | 2019-04-23 19:24 | NUR ---
HAND-OFF: Report given to Gamaliel RN. VS remain stable. Endorsed plan of care.
--- NOTE | 2019-04-23 19:30 | NUR ---
NURSE NOTES: Received patient and report from BLANCA Corado. Patient is awake, alert and oriented x2, with periods of confusion, repetitive with his thoughts. On Bipap 18/5 with 30%FiO2, O2 saturating at 100%. Noted left nare NGT in place, patent. Feeding on hold. Morales catheter in place and draining, secured on left thigh. Left forearm 20G IV running Lasix at 10ml/hr. Noted bilateral soft wrist restraints for safety, per MD order. Safety measures in place; bed locked and in lowest position. HOB kept elevated 30 degree. Will continue to monitor.
[2019-04-23] MEDS: Tamsulosin 0.4mg cap ORAL SCH (20:41)
--- NOTE | 2019-04-23 22:00 | NUR ---
NURSE NOTES: Pt's resting in bed, watching TV, in no acute distress. VS stable. Pt's able to turn/ position change by himself with minimal helps. Will continue to monitor.
[2019-04-24] VITALS (24 sets, daily range): BP systolic 93–138; BP diastolic 68–82
--- NOTE | 2019-04-24 | NUR ---
NURSE NOTES: Pt's resting in bed, asleep with eyes closed, currently on 2L/NC, O2 sat 98%, with no acute distress. VS stable. Will continue to monitor.
--- NOTE | 2019-04-24 02:00 | NUR ---
NURSE NOTES: Pt's resting in bed, asleep with eyes closed, currently on 2L/NC, O2 sat 98%, with no acute distress. VS stable. Will continue to monitor.
[2019-04-24] MEDS: Acetylcysteine 20% Soln 4ml HHN SCH ×6 (03:18→22:52)
[2019-04-24] MEDS: Albuterol/Ipratropium 3ml neb HHN SCH ×6 (03:18→22:52)
--- NOTE | 2019-04-24 04:00 | NUR ---
NURSE NOTES: Pt's resting in bed, asleep with eyes closed, currently on 2L/NC, O2 sat 99%, with no acute distress. VS stable. Will continue to monitor.
[2019-04-24 05:44] LABS: BASOPHILS % (AUTO) 1.5 % (0.0-2.0); EOSINOPHILS % (AUTO) 7.6 % (0.0-3.0); HEMATOCRIT 27.4 % (42.0-52.0); HEMOGLOBIN 9.2 G/DL (14.2-18.0); LYMPHOCYTES % (AUTO) 16.1 % (20.0-45.0); MEAN CORPUSCULAR VOLUME 85 FL (80-99); NEUTROPHILS % (AUTO) 64.7 % (45.0-75.0); PLATELET COUNT 333 K/UL (150-450); RED BLOOD COUNT 3.23 M/UL (4.70-6.10); RED CELL DISTRIBUTION WIDTH 14.9 % (11.6-14.8); WHITE BLOOD COUNT 4.3 K/UL (4.8-10.8)
[2019-04-24 05:52] LABS: ANION GAP 15 mmol/L (5-15); BLOOD UREA NITROGEN 19 mg/dL (7-18); CALCIUM 9.2 MG/DL (8.5-10.1); CARBON DIOXIDE 24 MMOL/L (21-32); CHLORIDE 111 MMOL/L (98-107); CREATININE 1.7 MG/DL (0.55-1.30); POTASSIUM 3.4 MMOL/L (3.5-5.1); SODIUM 150 MMOL/L (136-145)
--- NOTE | 2019-04-24 06:00 | NUR ---
NURSE NOTES: Pt's resting in bed, asleep with eyes closed, currently on 2L/NC, O2 sat 98%, with no acute distress. VS stable. Will continue to monitor.
--- NOTE | 2019-04-24 07:20 | NUR ---
HAND-OFF: Report given to BLANCA Vargas.
--- NOTE | 2019-04-24 07:28 | Nephrology Progress Note ---
Assessment/Plan Status: unchanged Assessment/Plan: A/P 1. CKD 3B resolved. Cr up to 1.7. Will restart free water 2. Prostate cancer with elevated PSA 3. Hypokalemia- replace prn basis today 4. Sepsis and UTI mgmt per ID 5. Hypernatremia- restart free water 6. Hypercalcemia of malignancy- s/p pamidronate and calcitonin. Ca 8.8 7. Resp FL- off BiPAP Subjective Date patient seen: Apr 24, 2019 Time patient seen: 07:27 ROS Limited/Unobtainable: No Allergies: Coded Allergies: No Known Allergies (Unverified , 04/03/19) Subjective Patient off BIPAP on venturi mask Objective Last 24 Hour Vital Signs Date Time Temp Pulse Resp B/P (MAP) Pulse Ox O2 Delivery O2 Flow Rate FiO2 04/24/19 07:24 100 Nasal Cannula 2.0 28 04/24/19 07:12 112 23 99 Nasal Cannula 2.0 28 114 24 99 04/24/19 05:00 108 19 115/72 (86) 100 04/24/19 04:00 107 20 115/70 (85) 100 04/24/19 04:00 106 04/24/19 04:00 2.0 04/24/19 04:00 Bi-pap 04/24/19 03:18 112 23 98 Bi-Pap 30 117 20 100 30 04/24/19 03:00 107 24 116/73 (87) 99 04/24/19 02:00 108 24 115/68 (84) 99 04/24/19 01:00 105 25 111/72 (85) 98 04/24/19 00:00 103 04/24/19 00:00 2.0 04/24/19 00:00 Bi-pap 04/24/19 00:00 98.0 99 17 112/69 (83) 04/23/19 23:13 104 21 100 Bi-Pap 30 106 22 100 30 04/23/19 23:00 104 21 124/78 (93) 98 04/23/19 22:00 100 17 132/83 (99) 99 04/23/19 21:05 101 21 100 30 04/23/19 21:00 98 18 127/77 (94) 100 04/23/19 20:03 100 18 100 Bi-Pap 30 104 18 100 30 04/23/19 20:03 100 Bi-Pap 30 04/23/19 20:00 30 04/23/19 20:00 103 04/23/19 20:00 98.0 102 23 129/79 (96) 86 04/23/19 20:00 Bi-pap 04/23/19 19:00 101 20 129/82 (98) 98 04/23/19 18:00 98 16 134/84 (101) 100 04/23/19 17:00 90 16 110/74 (86) 100 04/23/19 16:54 101 17 100 30 04/23/19 16:00 30 04/23/19 16:00 97.9 97 18 119/76 (90) 99 04/23/19 16:00 92 04/23/19 16:00 Bi-pap 04/23/19 15:01 95 16 100 Bi-Pap 30 96 15 100 04/23/19 15:00 98 20 118/77 (91) 100 04/23/19 14:00 98 20 118/77 (91) 100 04/23/19 14:00 95 19 120/74 (89) 100 04/23/19 13:00 96 18 99 30 04/23/19 13:00 98 20 116/78 (91) 100 04/23/19 13:00 96 18 99 Bi-Pap 30 04/23/19 12:00 Bi-pap 04/23/19 12:00 97.7 100 19 136/92 (107) 99 04/23/19 12:00 98 04/23/19 12:00 30 04/23/19 11:28 101 21 98 30 04/23/19 11:00 100 21 131/84 (100) 100 04/23/19 10:00 102 21 116/74 (88) 100 04/23/19 09:00 104 19 112/75 (87) 100 04/23/19 08:59 104 14 99 30 04/23/19 08:00 Bi-pap 04/23/19 08:00 105 04/23/19 08:00 30 04/23/19 08:00 97.5 108 24 119/77 (91) 99 Intake and Output 04/23/19 04/24/19 19:00 07:00 Intake Total 162.5 ml 485 ml Output Total 395 ml 960 ml Balance -232.5 ml -475 ml IV Total 162.5 ml 100 ml Tube Feeding 385 ml Output Urine Total 395 ml 960 ml # Bowel Movements 1 Laboratory Tests 04/23/19 08:56: Arterial Blood pH 7.400, Arterial Blood Partial Pressure CO2 34.7L, Arterial Blood Partial Pressure O2 81.5, Arterial Blood HCO3 21.0L, Arterial Blood Oxygen Saturation 94.7L, Arterial Blood Base Excess -3.3L, Antonio Test Positive 04/24/19 05:00: White Blood Count 4.3L, Red Blood Count 3.23L, Hemoglobin 9.2L, Hematocrit 27.4L , Mean Corpuscular Volume 85, Mean Corpuscular Hemoglobin 28.6, Mean Corpuscular Hemoglobin Concent 33.8, Red Cell Distribution Width 14.9H, Platelet Count 333, Mean Platelet Volume 4.3L, Neutrophils (%) (Auto) 64.7, Lymphocytes (%) (Auto) 16.1L, Monocytes (%) (Auto) 10.0, Eosinophils (%) (Auto) 7.6H, Basophils (%) (Auto) 1.5, Sodium Level 150H, Potassium Level 3.4L, Chloride Level 111H, Carbon Dioxide Level 24, Anion Gap 15, Blood Urea Nitrogen 19H, Creatinine 1.7H, Estimat Glomerular Filtration Rate 48.2, Glucose Level 73L , Calcium Level 9.2 Height (Feet): 5 Height (Inches): 7.00 Weight (Pounds): 166 General Appearance: no apparent distress EENT: normal ENT inspection Neck: normal alignment, supple Cardiovascular: normal rate, regular rhythm Respiratory/Chest: rhonchi - bilaterally Abdomen: non tender, soft Edema: no edema noted Arm (L), no edema noted Arm (R), no edema noted Leg (L), no edema noted Leg (R), no edema noted Pedal (L), no edema noted Pedal (R), no edema noted Generalized Carlos White MD Apr 24, 2019 07:28
--- NOTE | 2019-04-24 07:30 | NUR ---
NURSE NOTES: Received patient from Gamaliel RN. Patient is awake, alert and oriented x2-x3. Sinus Tachycardia on the heart monitor, HR 105. Receiving oxygen via nasal cannula at 2L/min, no signs of respiratory distress O2 Sat 100%. Left NGT is intact and receiving Vital AF at 55cc/hr. IV site is Left Forearm 20g receiving Lasix at 10mg/hr. Morales catheter is intact and draining. Bed is locked, placed in lowest position, side rails up x3, bed alarm on, call light within reach, will continue to monitor.
--- NOTE | 2019-04-24 08:12 | Urology Progress Note ---
Assessment/Plan Status: unchanged Assessment/Plan: 1. 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 2. Urinary retention. 3. Acute kidney injury, improved. 4. Hydronephrosis, likely chronic. 5. Proteinuria. 6. UTI and colonization. 7. Hematuria. monitor clinically maintain guerra, last replaced 04/10 hand irrigated and do PRN position is satisfactory monitor renal fxn, labile likely obst of bilateral distal ureters secondary to advanced prostate ca will need to see how aggressive pt and family want to be renal fxn improved with the new guerra consider ureteral stents or nephrostomies? flomax added s/p abx may need to hold lovenox voiding trial at some point? d/w nursing staff Subjective Allergies: Coded Allergies: No Known Allergies (Unverified , 04/03/19) Subjective all noted, still in ICU, bipap Objective Last 24 Hour Vital Signs Date Time Temp Pulse Resp B/P (MAP) Pulse Ox O2 Delivery O2 Flow Rate FiO2 04/24/19 07:24 100 Nasal Cannula 2.0 28 04/24/19 07:12 112 23 99 Nasal Cannula 2.0 28 114 24 99 04/24/19 07:00 98.4 116 24 130/80 (97) 98 04/24/19 06:00 122 22 138/82 (100) 95 04/24/19 05:00 108 19 115/72 (86) 100 04/24/19 04:00 107 20 115/70 (85) 100 04/24/19 04:00 106 04/24/19 04:00 2.0 04/24/19 04:00 Bi-pap 04/24/19 03:18 112 23 98 Bi-Pap 30 117 20 100 30 04/24/19 03:00 107 24 116/73 (87) 99 04/24/19 02:00 108 24 115/68 (84) 99 04/24/19 01:00 105 25 111/72 (85) 98 04/24/19 00:00 103 04/24/19 00:00 2.0 04/24/19 00:00 Bi-pap 04/24/19 00:00 98.0 99 17 112/69 (83) 04/23/19 23:13 104 21 100 Bi-Pap 30 106 22 100 30 04/23/19 23:00 104 21 124/78 (93) 98 2/20/20 22:00 100 17 132/83 (99) 99 04/23/19 21:05 101 21 100 30 04/23/19 21:00 98 18 127/77 (94) 100 04/23/19 20:03 100 18 100 Bi-Pap 30 104 18 100 30 04/23/19 20:03 100 Bi-Pap 30 04/23/19 20:00 30 04/23/19 20:00 103 04/23/19 20:00 98.0 102 23 129/79 (96) 86 04/23/19 20:00 Bi-pap 04/23/19 19:00 101 20 129/82 (98) 98 04/23/19 18:00 98 16 134/84 (101) 100 04/23/19 17:00 90 16 110/74 (86) 100 04/23/19 16:54 101 17 100 30 04/23/19 16:00 30 04/23/19 16:00 97.9 97 18 119/76 (90) 99 04/23/19 16:00 92 04/23/19 16:00 Bi-pap 04/23/19 15:01 95 16 100 Bi-Pap 30 96 15 100 04/23/19 15:00 98 20 118/77 (91) 100 04/23/19 14:00 98 20 118/77 (91) 100 04/23/19 14:00 95 19 120/74 (89) 100 04/23/19 13:00 96 18 99 30 04/23/19 13:00 98 20 116/78 (91) 100 04/23/19 13:00 96 18 99 Bi-Pap 30 04/23/19 12:00 Bi-pap 04/23/19 12:00 97.7 100 19 136/92 (107) 99 04/23/19 12:00 98 04/23/19 12:00 30 04/23/19 11:28 101 21 98 30 04/23/19 11:00 100 21 131/84 (100) 100 04/23/19 10:00 102 21 116/74 (88) 100 04/23/19 09:00 104 19 112/75 (87) 100 04/23/19 08:59 104 14 99 30 Intake and Output 04/23/19 04/24/19 19:00 07:00 Intake Total 162.5 ml 540 ml Output Total 395 ml 1060 ml Balance -232.5 ml -520 ml IV Total 162.5 ml 100 ml Tube Feeding 440 ml Output Urine Total 395 ml 1060 ml # Bowel Movements 1 Microbiology Date/Time Source Procedure Growth Status 04/14/19 12:45 Blood Blood Culture - Final NO GROWTH AFTER 5 DAYS Complete 04/15/19 21:40 Sputum Gram Stain - Final Complete 04/15/19 21:40 Sputum Sputum Culture - Final NORMAL UPPER RESPIRATORY DAVID PRESENT Complete 04/18/19 17:00 Stool Clostridium difficile Toxin Assay - Final Complete 04/14/19 11:25 Urine,Random Urine Culture - Final NO GROWTH AFTER 48 HOURS Complete Current Medications Medications (Trade) Dose Ordered Sig/La Nena Route PRN Reason Start Time Stop Time Status Last Admin Dose Admin Acetylcysteine (Mucomyst) 200 mg Q4HRT [facility] 04/18/19 11:00 05/18/19 10:59 04/24/19 07:11 Albuterol/ Ipratropium (Albuterol/ Ipratropium) 3 ml Q4HRT N 04/23/19 15:00 04/28/19 14:59 04/24/19 07:10 Cefepime HCl 1 gm/ Dextrose 55 ml @ 110 mls/hr Q24H IVPB 04/21/19 12:00 04/28/19 11:59 04/23/19 11:55 Dextrose 1,000 ml @ 50 mls/hr Q20H IV 04/24/19 07:30 05/24/19 07:29 04/24/19 08:04 Enoxaparin Sodium (Lovenox) 30 mg DAILY SUBQ 04/14/19 09:00 05/04/19 08:59 04/23/19 09:12 Furosemide 100 mg/ Dextrose 100 ml @ 10 mls/hr Q10H IV 04/23/19 14:00 05/23/19 13:59 04/24/19 00:14 Hydralazine HCl (Apresoline) 10 mg Q4H PRN IV SBP > 170mmHg 04/13/19 15:00 05/08/19 14:59 Lansoprazole (Prevacid) 30 mg DAILY ORAL 04/14/19 09:00 05/13/19 08:59 04/23/19 09:10 Lorazepam (Ativan 2mg/ml 1ml) 1 mg Q6H PRN IV For Anxiety 04/17/19 18:15 04/24/19 18:14 04/19/19 02:34 Memantine (Namenda) 5 mg BID ORAL 04/13/19 18:00 05/04/19 17:59 04/23/19 17:12 Norepinephrine Bitartrate 4 mg/ Dextrose 250 ml @ 0 mls/hr Q24H IV 04/13/19 17:00 05/13/19 16:59 04/14/19 22:57 Potassium Chloride 100 ml @ 100 mls/hr Q1H IVPB 04/24/19 08:00 04/24/19 09:59 04/24/19 08:07 Tamsulosin HCl (Flomax) 0.4 mg BEDTIME ORAL 04/13/19 21:00 05/13/19 20:59 04/23/19 20:41 Laboratory Tests 04/23/19 08:56: Arterial Blood pH 7.400, Arterial Blood Partial Pressure CO2 34.7L, Arterial Blood Partial Pressure O2 81.5, Arterial Blood HCO3 21.0L, Arterial Blood Oxygen Saturation 94.7L, Arterial Blood Base Excess -3.3L, Antonio Test Positive 04/24/19 05:00: White Blood Count 4.3L, Red Blood Count 3.23L, Hemoglobin 9.2L, Hematocrit 27.4L , Mean Corpuscular Volume 85, Mean Corpuscular Hemoglobin 28.6, Mean Corpuscular Hemoglobin Concent 33.8, Red Cell Distribution Width 14.9H, Platelet Count 333, Mean Platelet Volume 4.3L, Neutrophils (%) (Auto) 64.7, Lymphocytes (%) (Auto) 16.1L, Monocytes (%) (Auto) 10.0, Eosinophils (%) (Auto) 7.6H, Basophils (%) (Auto) 1.5, Sodium Level 150H, Potassium Level 3.4L, Chloride Level 111H, Carbon Dioxide Level 24, Anion Gap 15, Blood Urea Nitrogen 19H, Creatinine 1.7H, Estimat Glomerular Filtration Rate 48.2, Glucose Level 73L , Calcium Level 9.2 Height (Feet): 5 Height (Inches): 7.00 Weight (Pounds): 166 Objective exam stable guerra indwelling, yellow/allegra urine CT A/P (2/7) noted Raz Root MD Apr 24, 2019 08:12
--- NOTE | 2019-04-24 08:58 | Hematology/Onc Progress Note ---
Assessment/Plan Assessment/Plan # Prostate cancer stage IV with psa >700, cr is worse, hydronephrosis noted, seen by renal, Dr. White. --> i did received records from [facility]. has regional lymphadenopathy, s/p transrectal biopsy with Gleasons 5+5 (2010) in all cores, apparently has had a 3 year course of androgen deprivation from 2011- 2014.also status post RADIATION to the prostate, then lost to followup. Following surviellance psa 0.45-->65, in 10/2016, and up to 127 in 12/2016, Ct scan showed recurrence of disease with lad but no bony mets, started on lupron 01/2017, psa fell yo 73-->46, has been sarted on zytiga + prednisone, and now psa progression on zytiga, he started xtandi in 01/2019 Psa 87. He did not go through urethral stenting, he has deferred treatment with chemo. --> He is a very poor historian, I have talked to the sister --> imaging has been noted --> as per urology recs, reviewed --> have called , no answer, trans to [facility]? --> poor prognosis given above history of treatment, defer transfer to [facility] --> psa 737-->757 --> CT ABD 04/10: Evidence of advanced metastatic neoplasm likely secondary to prostate carcinoma. Extensive retroperitoneal and pelvic lymphadenopathy complicated by presence of bilateral hydroureteronephrosis. Extensive metastatic disease involving the bones also noted. Status post seed implant radiation therapy to the prostate gland. # Hypercalcemia -- now acutely worse --> trend Ca++ 8.1-->13-->12-->10.3-->10.7-->13.2 -->11-->10.5 --> ivf has been started --> as per nephrology --> calcitonin was given # Anemia due to underlying malignancy --> hgb trend as needed 9.2-->7-->10.9-->11-->9.7-->8.1-->8.6-->9.2 --> no hemolysis is noted --> no bleeding --> blood tx: 04/18, # Episode of generalized weakness --> on ivf --> pt as needed # Pleural effusion --> no consent for peg # Hypokalemia --> replete prn # Dehydration --> on ivf # Atrophic changes without evident intracranial hemorrhage. --> as per neuro, remains confused # Respiratory failure s/p vent now ext --> on bipap++ # Hypernatremia as well as low BUN --> on ivf # Poor prognosis # Dvt ppx lovenox sq Appreciate consultation and dW Rn Subjective Constitutional: Denies: no symptoms, chills, fever, malaise, weakness, other HEENT: Denies: no symptoms, eye pain, blurred vision, tearing, double vision, ear pain, ear discharge, nose pain, nose congestion, throat pain, throat swelling, mouth pain, mouth swelling, other Cardiovascular: Denies: no symptoms, chest pain, edema, irregular heart rate, lightheadedness, palpitations, syncope, other Respiratory: Denies: no symptoms, cough, shortness of breath, SOB with excertion, SOB at rest, sputum, wheezing, other Gastrointestinal/Abdominal: Denies: no symptoms, abdomen distended, abdominal pain, black stools, tarry stools, blood in stool, constipated, diarrhea, difficulty swallowing, nausea, poor appetite, poor fluid intake, rectal bleeding , vomiting, other Genitourinary: Denies: no symptoms, burning, discharge, frequency, flank pain, hematuria, incontinence, pain, urgency, other Neurologic/Psychiatric: Denies: no symptoms, anxiety, depressed, emotional problems, headache, numbness, paresthesia, pre-existing deficit, seizure, tingling, tremors, weakness, other Endocrine: Denies: no symptoms, excessive sweating, flushing, intolerance to cold, intolerance to heat, increased hunger, increased thirst, increased urine, unexplained weight gain, unexplained weight loss, other Allergies: Coded Allergies: No Known Allergies (Unverified , 04/03/19) Subjective 23: no events, apparently intubated today and transferred to the icu, will dw family 2: remains in the icu, critically ill, Ca++ 12, on vent, minimally responsive , on dopa, dw pcp and pulm 04/08: no major changes, no night sweats, labs have been reviewed, dw daughter, he is more alert 04/10: awake, no acute events ct abd reviewed, stool ob negative 2/9: labs reviewed, nc, tachy, ceftriaxone, no sob 04/13: lethargic, nc 3l, no acute distress, labs reviewed 04/14: Ca++ remains elev 13.2, De Amy aware, on calcitonin, on lovenox 04/15: no major changes, remains intubated, seen by cards, renal, pulm, dw Kellie, kcl ordered 04/16: tolerating meds well, no bleeding, on vent, is on simv mode, nicholas Pacheco Rn 04/17: icu, vent, h/h stable, no acute events, on cefepime 04/19: remains in icu and intubated, s/p blood, hgb 8.6, c diff negative 04/20: on bipap, hgb 8.6, no major changes, in icu, requires peg 04/21: urine is red tinged this am, of vent, with nc, no bleeding, labs noted 04/22: no major changes, no bleeding r chils, no consent for procedures 04/23: icu, failed to wean from bipap, h/h stable 04/24: no events, feeling better, dw uro, with guerra, labs noted, no bleeding Objective Objective Current Medications Medications (Trade) Dose Ordered Sig/La Nena Route PRN Reason Start Time Stop Time Status Last Admin Dose Admin Acetylcysteine (Mucomyst) 200 mg Q4HRT [facility] 04/18/19 11:00 05/18/19 10:59 04/24/19 07:11 Albuterol/ Ipratropium (Albuterol/ Ipratropium) 3 ml Q4HRT [facility] 04/23/19 15:00 04/28/19 14:59 04/24/19 07:10 Cefepime HCl 1 gm/ Dextrose 55 ml @ 110 mls/hr Q24H IVPB 04/21/19 12:00 04/28/19 11:59 04/23/19 11:55 Dextrose 1,000 ml @ 50 mls/hr Q20H IV 04/24/19 07:30 05/24/19 07:29 04/24/19 08:04 Enoxaparin Sodium (Lovenox) 30 mg DAILY SUBQ 04/14/19 09:00 05/04/19 08:59 04/23/19 09:12 Furosemide 100 mg/ Dextrose 100 ml @ 10 mls/hr Q10H IV 04/23/19 14:00 05/23/19 13:59 04/24/19 00:14 Hydralazine HCl (Apresoline) 10 mg Q4H PRN IV SBP > 170mmHg 04/13/19 15:00 05/08/19 14:59 Lansoprazole (Prevacid) 30 mg DAILY ORAL 04/14/19 09:00 05/13/19 08:59 04/23/19 09:10 Lorazepam (Ativan 2mg/ml 1ml) 1 mg Q6H PRN IV For Anxiety 04/17/19 18:15 04/24/19 18:14 04/19/19 02:34 Memantine (Namenda) 5 mg BID ORAL 04/13/19 18:00 05/04/19 17:59 04/23/19 17:12 Norepinephrine Bitartrate 4 mg/ Dextrose 250 ml @ 0 mls/hr Q24H IV 04/13/19 17:00 05/13/19 16:59 04/14/19 22:57 Potassium Chloride 100 ml @ 100 mls/hr Q1H IVPB 04/24/19 08:00 04/24/19 09:59 04/24/19 08:07 Tamsulosin HCl (Flomax) 0.4 mg BEDTIME ORAL 04/13/19 21:00 05/13/19 20:59 04/23/19 20:41 Last 24 Hour Vital Signs Date Time Temp Pulse Resp B/P (MAP) Pulse Ox O2 Delivery O2 Flow Rate FiO2 04/24/19 08:00 Bi-pap 04/24/19 08:00 2.0 04/24/19 08:00 98.0 110 25 108/69 (82) 100 04/24/19 07:24 100 Nasal Cannula 2.0 28 04/24/19 07:12 112 23 99 Nasal Cannula 2.0 28 114 24 99 04/24/19 07:00 98.4 116 24 130/80 (97) 98 04/24/19 06:00 122 22 138/82 (100) 95 04/24/19 05:00 108 19 115/72 (86) 100 04/24/19 04:00 107 20 115/70 (85) 100 04/24/19 04:00 106 04/24/19 04:00 2.0 04/24/19 04:00 Bi-pap 04/24/19 03:18 112 23 98 Bi-Pap 30 117 20 100 30 04/24/19 03:00 107 24 116/73 (87) 99 04/24/19 02:00 108 24 115/68 (84) 99 04/24/19 01:00 105 25 111/72 (85) 98 04/24/19 00:00 103 04/24/19 00:00 2.0 04/24/19 00:00 Bi-pap 04/24/19 00:00 98.0 99 17 112/69 (83) 04/23/19 23:13 104 21 100 Bi-Pap 30 106 22 100 30 04/23/19 23:00 104 21 124/78 (93) 98 04/23/19 22:00 100 17 132/83 (99) 99 04/23/19 21:05 101 21 100 30 04/23/19 21:00 98 18 127/77 (94) 100 04/23/19 20:03 100 18 100 Bi-Pap 30 104 18 100 30 04/23/19 20:03 100 Bi-Pap 30 04/23/19 20:00 30 04/23/19 20:00 103 04/23/19 20:00 98.0 102 23 129/79 (96) 86 04/23/19 20:00 Bi-pap 04/23/19 19:00 101 20 129/82 (98) 98 04/23/19 18:00 98 16 134/84 (101) 100 04/23/19 17:00 90 16 110/74 (86) 100 04/23/19 16:54 101 17 100 30 04/23/19 16:00 30 04/23/19 16:00 97.9 97 18 119/76 (90) 99 04/23/19 16:00 92 04/23/19 16:00 Bi-pap 04/23/19 15:01 95 16 100 Bi-Pap 30 96 15 100 04/23/19 15:00 98 20 118/77 (91) 100 04/23/19 14:00 98 20 118/77 (91) 100 04/23/19 14:00 95 19 120/74 (89) 100 04/23/19 13:00 96 18 99 30 2/20/20 13:00 98 20 116/78 (91) 100 04/23/19 13:00 96 18 99 Bi-Pap 30 04/23/19 12:00 Bi-pap 04/23/19 12:00 97.7 100 19 136/92 (107) 99 04/23/19 12:00 98 04/23/19 12:00 30 04/23/19 11:28 101 21 98 30 04/23/19 11:00 100 21 131/84 (100) 100 04/23/19 10:00 102 21 116/74 (88) 100 04/23/19 09:00 104 19 112/75 (87) 100 04/23/19 08:59 104 14 99 30 04/23/19 08:00 Bi-pap 04/23/19 08:00 105 04/23/19 08:00 30 04/23/19 08:00 97.5 108 24 119/77 (91) 99 04/23/19 07:06 114 16 100 30 04/23/19 07:03 114 24 100 Nasal Cannula 2.0 28 112 24 100 04/23/19 07:02 100 Nasal Cannula 2.0 28 04/23/19 07:00 119 25 145/86 (105) 100 04/23/19 06:00 106 21 116/74 (88) 100 04/23/19 05:26 102 17 100 30 04/23/19 05:00 101 17 133/74 (93) 100 04/23/19 04:00 109 04/23/19 04:00 30 04/23/19 04:00 97.3 100 15 126/75 (92) 100 04/23/19 04:00 Bi-pap 04/23/19 03:29 105 19 100 Bi-Pap 30 106 22 100 04/23/19 03:00 112 25 114/79 (91) 100 04/23/19 02:00 103 19 111/69 (83) 100 04/23/19 01:00 105 20 107/68 (81) 100 04/23/19 00:38 109 23 100 30 04/23/19 00:00 114 04/23/19 00:00 Bi-pap 04/23/19 00:00 30 04/23/19 00:00 97.2 112 22 118/71 (87) 99 04/22/19 23:00 113 24 133/82 (99) 100 04/22/19 22:56 108 23 100 Bi-Pap 30 102 20 100 04/22/19 22:30 106 20 113/70 (84) 04/22/19 22:00 102 18 112/67 (82) 99 04/22/19 21:30 100 19 103/65 (78) 99 04/22/19 21:05 100 17 100 30 04/22/19 21:00 108 23 129/75 (93) 99 04/22/19 20:00 97.6 97 21 111/75 (87) 98 04/22/19 20:00 Bi-pap 04/22/19 20:00 30 04/22/19 20:00 106 04/22/19 19:19 100 Bi-Pap 30 04/22/19 19:16 105 15 100 Bi-Pap 30 102 16 100 04/22/19 19:00 106 20 122/79 (93) 100 04/22/19 18:00 97 16 118/78 (91) 100 04/22/19 17:16 104 18 100 30 04/22/19 17:00 100 19 115/79 (91) 97 04/22/19 17:00 115/79 04/22/19 16:22 102 04/22/19 16:00 Bi-pap 30.0 04/22/19 16:00 30 04/22/19 16:00 97.1 97 15 110/72 (85) 100 04/22/19 15:12 95 16 95 Bi-Pap 30 97 18 100 30 04/22/19 15:00 104 19 118/74 (89) 100 04/22/19 14:00 101 20 113/74 (87) 100 04/22/19 13:19 97 15 98 30 04/22/19 13:00 104 18 113/77 (89) 100 04/22/19 12:38 97 04/22/19 12:00 Bi-pap 30.0 04/22/19 12:00 97.2 101 19 115/77 (90) 100 04/22/19 12:00 30 04/22/19 11:00 99 21 106/69 (81) 100 04/22/19 10:51 97 19 100 Bi-Pap 30 95 18 100 30 04/22/19 10:00 101 19 113/74 (87) 95 04/22/19 09:20 95 20 100 30 04/22/19 09:00 111 25 124/62 (82) 100 Intake and Output 04/23/19 04/24/19 19:00 07:00 Intake Total 162.5 ml 540 ml Output Total 395 ml 1060 ml Balance -232.5 ml -520 ml IV Total 162.5 ml 100 ml Tube Feeding 440 ml Output Urine Total 395 ml 1060 ml # Bowel Movements 1 Labs Test 04/21/19 11:00 04/22/19 04:30 04/23/19 05:20 04/23/19 08:56 Arterial Blood pH 7.313 (7.350-7.450) 7.400 (7.350-7.450) Arterial Blood Partial Pressure CO2 57.7 mmHg (35.0-45.0) 34.7 mmHg (35.0-45.0) Arterial Blood Partial Pressure O2 236.0 mmHg (75.0-100.0) 81.5 mmHg (75.0-100.0) Arterial Blood HCO3 28.6 mmol/L (22.0-26.0) 21.0 mmol/L (22.0-26.0) Arterial Blood Oxygen Saturation 98.9 % (95-100) 94.7 % (95-100) Arterial Blood Base Excess 1.7 (-2-2) -3.3 (-2-2) Antonio Test Positive Positive White Blood Count 4.6 K/UL (4.8-10.8) 3.9 K/UL (4.8-10.8) Red Blood Count 3.04 M/UL (4.70-6.10) 2.94 M/UL (4.70-6.10) Hemoglobin 8.6 G/DL (14.2-18.0) 8.4 G/DL (14.2-18.0) Hematocrit 25.5 % (42.0-52.0) 24.8 % (42.0-52.0) Mean Corpuscular Volume 84 FL (80-99) 85 FL (80-99) Mean Corpuscular Hemoglobin 28.3 PG (27.0-31.0) 28.7 PG (27.0-31.0) Mean Corpuscular Hemoglobin Concent 33.7 G/DL (32.0-36.0) 33.9 G/DL (32.0-36.0) Red Cell Distribution Width 14.7 % (11.6-14.8) 15.2 % (11.6-14.8) Platelet Count 266 K/UL (150-450) 304 K/UL (150-450) Mean Platelet Volume 4.8 FL (6.5-10.1) 4.4 FL (6.5-10.1) Neutrophils (%) (Auto) 69.3 % (45.0-75.0) 66.2 % (45.0-75.0) Lymphocytes (%) (Auto) 13.7 % (20.0-45.0) 16.3 % (20.0-45.0) Monocytes (%) (Auto) 10.5 % (1.0-10.0) 9.7 % (1.0-10.0) Eosinophils (%) (Auto) 5.2 % (0.0-3.0) 6.2 % (0.0-3.0) Basophils (%) (Auto) 1.4 % (0.0-2.0) 1.6 % (0.0-2.0) Prothrombin Time 12.1 SEC (9.30-11.50) 12.1 SEC (9.30-11.50) Prothromb Time International Ratio 1.1 (0.9-1.1) 1.1 (0.9-1.1) Sodium Level 145 MMOL/L (136-145) 146 MMOL/L (136-145) Potassium Level 3.3 MMOL/L (3.5-5.1) 3.6 MMOL/L (3.5-5.1) Chloride Level 110 MMOL/L (98-107) 111 MMOL/L (98-107) Carbon Dioxide Level 26 MMOL/L (21-32) 25 MMOL/L (21-32) Anion Gap 9 mmol/L (5-15) 10 mmol/L (5-15) Blood Urea Nitrogen 17 mg/dL (7-18) 17 mg/dL (7-18) Creatinine 1.4 MG/DL (0.55-1.30) 1.5 MG/DL (0.55-1.30) Estimat Glomerular Filtration Rate > 60 mL/min (>60) 55.8 mL/min (>60) Glucose Level 83 MG/DL (74-106) 72 MG/DL (74-106) Calcium Level 8.7 MG/DL (8.5-10.1) 8.7 MG/DL (8.5-10.1) Activated Partial Thromboplast Time 29 SEC (23-33) Test 04/24/19 05:00 White Blood Count 4.3 K/UL (4.8-10.8) Red Blood Count 3.23 M/UL (4.70-6.10) Hemoglobin 9.2 G/DL (14.2-18.0) Hematocrit 27.4 % (42.0-52.0) Mean Corpuscular Volume 85 FL (80-99) Mean Corpuscular Hemoglobin 28.6 PG (27.0-31.0) Mean Corpuscular Hemoglobin Concent 33.8 G/DL (32.0-36.0) Red Cell Distribution Width 14.9 % (11.6-14.8) Platelet Count 333 K/UL (150-450) Mean Platelet Volume 4.3 FL (6.5-10.1) Neutrophils (%) (Auto) 64.7 % (45.0-75.0) Lymphocytes (%) (Auto) 16.1 % (20.0-45.0) Monocytes (%) (Auto) 10.0 % (1.0-10.0) Eosinophils (%) (Auto) 7.6 % (0.0-3.0) Basophils (%) (Auto) 1.5 % (0.0-2.0) Sodium Level 150 MMOL/L (136-145) Potassium Level 3.4 MMOL/L (3.5-5.1) Chloride Level 111 MMOL/L (98-107) Carbon Dioxide Level 24 MMOL/L (21-32) Anion Gap 15 mmol/L (5-15) Blood Urea Nitrogen 19 mg/dL (7-18) Creatinine 1.7 MG/DL (0.55-1.30) Estimat Glomerular Filtration Rate 48.2 mL/min (>60) Glucose Level 73 MG/DL (74-106) Calcium Level 9.2 MG/DL (8.5-10.1) Height (Feet): 5 Height (Inches): 7.00 Weight (Pounds): 166 Objective General: normal inspection, alert, Chronically Ill Respiratory: dry breath sounds b/l, ++ bipap Cardiovascular: regular rate, rhythm, no edema Gastrointestinal: normal inspection, normal bowel sounds Genitourinary: no CVA tenderness Mus: normal inspection, back normal, normal range of motion Neurologic: alert, motor strength/tone normal, oriented + confused Psychiatric: normal inspection, judgement/insight normal Skin: no rash Andreas Monroy MD Apr 24, 2019 08:58
[2019-04-24] MEDS: Memantine 5 MG TAB ORAL SCH ×2 (09:03→18:14)
[2019-04-24] MEDS: Enoxaparin 30mg Inj SUBQ SCH (09:03)
--- NOTE | 2019-04-24 09:18 | General Progress Note ---
Assessment/Plan Status: unchanged Assessment/Plan: Assessment/Plan Problems: (1) Coffee ground emesis (2) Anemia (3) metastatic prostate CA (4) respiratory failure extubated in the ICU NGTF ppi PEG plans for Saturday will fu Subjective ROS Limited/Unobtainable: Yes Allergies: Coded Allergies: No Known Allergies (Unverified , 04/03/19) Objective Last 24 Hour Vital Signs Date Time Temp Pulse Resp B/P (MAP) Pulse Ox O2 Delivery O2 Flow Rate FiO2 04/24/19 08:00 Bi-pap 04/24/19 08:00 2.0 04/24/19 08:00 98.0 110 25 108/69 (82) 100 04/24/19 07:58 106 04/24/19 07:24 100 Nasal Cannula 2.0 28 04/24/19 07:12 112 23 99 Nasal Cannula 2.0 28 114 24 99 04/24/19 07:00 98.4 116 24 130/80 (97) 98 04/24/19 06:00 122 22 138/82 (100) 95 04/24/19 05:00 108 19 115/72 (86) 100 04/24/19 04:00 107 20 115/70 (85) 100 04/24/19 04:00 106 04/24/19 04:00 2.0 04/24/19 04:00 Bi-pap 04/24/19 03:18 112 23 98 Bi-Pap 30 117 20 100 30 04/24/19 03:00 107 24 116/73 (87) 99 04/24/19 02:00 108 24 115/68 (84) 99 04/24/19 01:00 105 25 111/72 (85) 98 04/24/19 00:00 103 04/24/19 00:00 2.0 04/24/19 00:00 Bi-pap 04/24/19 00:00 98.0 99 17 112/69 (83) 04/23/19 23:13 104 21 100 Bi-Pap 30 106 22 100 30 04/23/19 23:00 104 21 124/78 (93) 98 04/23/19 22:00 100 17 132/83 (99) 99 04/23/19 21:05 101 21 100 30 04/23/19 21:00 98 18 127/77 (94) 100 04/23/19 20:03 100 18 100 Bi-Pap 30 104 18 100 30 04/23/19 20:03 100 Bi-Pap 30 04/23/19 20:00 30 04/23/19 20:00 103 04/23/19 20:00 98.0 102 23 129/79 (96) 86 04/23/19 20:00 Bi-pap 04/23/19 19:00 101 20 129/82 (98) 98 04/23/19 18:00 98 16 134/84 (101) 100 04/23/19 17:00 90 16 110/74 (86) 100 04/23/19 16:54 101 17 100 30 04/23/19 16:00 30 04/23/19 16:00 97.9 97 18 119/76 (90) 99 04/23/19 16:00 92 04/23/19 16:00 Bi-pap 04/23/19 15:01 95 16 100 Bi-Pap 30 96 15 100 04/23/19 15:00 98 20 118/77 (91) 100 04/23/19 14:00 98 20 118/77 (91) 100 04/23/19 14:00 95 19 120/74 (89) 100 04/23/19 13:00 96 18 99 30 04/23/19 13:00 98 20 116/78 (91) 100 04/23/19 13:00 96 18 99 Bi-Pap 30 04/23/19 12:00 Bi-pap 04/23/19 12:00 97.7 100 19 136/92 (107) 99 04/23/19 12:00 98 04/23/19 12:00 30 04/23/19 11:28 101 21 98 30 04/23/19 11:00 100 21 131/84 (100) 100 04/23/19 10:00 102 21 116/74 (88) 100 Intake and Output 04/23/19 04/24/19 19:00 07:00 Intake Total 162.5 ml 540 ml Output Total 395 ml 1060 ml Balance -232.5 ml -520 ml IV Total 162.5 ml 100 ml Tube Feeding 440 ml Output Urine Total 395 ml 1060 ml # Bowel Movements 1 Laboratory Tests 04/24/19 05:00: White Blood Count 4.3L, Red Blood Count 3.23L, Hemoglobin 9.2L, Hematocrit 27.4L , Mean Corpuscular Volume 85, Mean Corpuscular Hemoglobin 28.6, Mean Corpuscular Hemoglobin Concent 33.8, Red Cell Distribution Width 14.9H, Platelet Count 333, Mean Platelet Volume 4.3L, Neutrophils (%) (Auto) 64.7, Lymphocytes (%) (Auto) 16.1L, Monocytes (%) (Auto) 10.0, Eosinophils (%) (Auto) 7.6H, Basophils (%) (Auto) 1.5, Sodium Level 150H, Potassium Level 3.4L, Chloride Level 111H, Carbon Dioxide Level 24, Anion Gap 15, Blood Urea Nitrogen 19H, Creatinine 1.7H, Estimat Glomerular Filtration Rate 48.2, Glucose Level 73L , Calcium Level 9.2 Height (Feet): 5 Height (Inches): 7.00 Weight (Pounds): 166 General Appearance: alert EENT: normal ENT inspection Neck: supple Cardiovascular: normal rate Respiratory/Chest: decreased breath sounds Abdomen: normal bowel sounds, non tender, soft Extremities: non-tender Tyrone Lamb MD Apr 24, 2019 09:18
--- NOTE | 2019-04-24 09:36 | General Progress Note ---
Assessment/Plan Problem List: (1) UTI (urinary tract infection) ICD Codes: N39.0 - Urinary tract infection, site not specified SNOMED: 80603403 (2) Weak ICD Codes: R53.1 - Weakness SNOMED: 89531047 (3) Anemia ICD Codes: D64.9 - Anemia, unspecified SNOMED: 789486988 (4) Dehydration ICD Codes: E86.0 - Dehydration SNOMED: 92496921, 28542635 (5) Episode of generalized weakness ICD Codes: R53.1 - Weakness SNOMED: 77243556 (6) Stage III adenocarcinoma of prostate ICD Codes: C61 - Malignant neoplasm of prostate SNOMED: 216028092, 59411059 Status: unchanged Assessment/Plan: o2 pulm tx pt diet abx iv fluid heme gi eval cbc bmp am Subjective Constitutional: Reports: weakness Allergies: Coded Allergies: No Known Allergies (Unverified , 04/03/19) All Systems: reviewed and negative except above Subjective o2nc ng in icu Objective Last 24 Hour Vital Signs Date Time Temp Pulse Resp B/P (MAP) Pulse Ox O2 Delivery O2 Flow Rate FiO2 04/24/19 08:00 Bi-pap 04/24/19 08:00 2.0 04/24/19 08:00 98.0 110 25 108/69 (82) 100 04/24/19 07:58 106 04/24/19 07:24 100 Nasal Cannula 2.0 28 04/24/19 07:12 112 23 99 Nasal Cannula 2.0 28 114 24 99 04/24/19 07:00 98.4 116 24 130/80 (97) 98 04/24/19 06:00 122 22 138/82 (100) 95 04/24/19 05:00 108 19 115/72 (86) 100 04/24/19 04:00 107 20 115/70 (85) 100 04/24/19 04:00 106 04/24/19 04:00 2.0 04/24/19 04:00 Bi-pap 04/24/19 03:18 112 23 98 Bi-Pap 30 117 20 100 30 04/24/19 03:00 107 24 116/73 (87) 99 04/24/19 02:00 108 24 115/68 (84) 99 04/24/19 01:00 105 25 111/72 (85) 98 04/24/19 00:00 103 04/24/19 00:00 2.0 04/24/19 00:00 Bi-pap 04/24/19 00:00 98.0 99 17 112/69 (83) 04/23/19 23:13 104 21 100 Bi-Pap 30 106 22 100 30 04/23/19 23:00 104 21 124/78 (93) 98 04/23/19 22:00 100 17 132/83 (99) 99 04/23/19 21:05 101 21 100 30 04/23/19 21:00 98 18 127/77 (94) 100 04/23/19 20:03 100 18 100 Bi-Pap 30 104 18 100 30 04/23/19 20:03 100 Bi-Pap 30 04/23/19 20:00 30 04/23/19 20:00 103 04/23/19 20:00 98.0 102 23 129/79 (96) 86 04/23/19 20:00 Bi-pap 04/23/19 19:00 101 20 129/82 (98) 98 04/23/19 18:00 98 16 134/84 (101) 100 04/23/19 17:00 90 16 110/74 (86) 100 04/23/19 16:54 101 17 100 30 04/23/19 16:00 30 04/23/19 16:00 97.9 97 18 119/76 (90) 99 04/23/19 16:00 92 04/23/19 16:00 Bi-pap 04/23/19 15:01 95 16 100 Bi-Pap 30 96 15 100 04/23/19 15:00 98 20 118/77 (91) 100 04/23/19 14:00 98 20 118/77 (91) 100 04/23/19 14:00 95 19 120/74 (89) 100 04/23/19 13:00 96 18 99 30 04/23/19 13:00 98 20 116/78 (91) 100 04/23/19 13:00 96 18 99 Bi-Pap 30 04/23/19 12:00 Bi-pap 04/23/19 12:00 97.7 100 19 136/92 (107) 99 04/23/19 12:00 98 04/23/19 12:00 30 04/23/19 11:28 101 21 98 30 04/23/19 11:00 100 21 131/84 (100) 100 04/23/19 10:00 102 21 116/74 (88) 100 Intake and Output 04/23/19 04/24/19 19:00 07:00 Intake Total 162.5 ml 540 ml Output Total 395 ml 1060 ml Balance -232.5 ml -520 ml IV Total 162.5 ml 100 ml Tube Feeding 440 ml Output Urine Total 395 ml 1060 ml # Bowel Movements 1 Laboratory Tests 04/24/19 05:00: White Blood Count 4.3L, Red Blood Count 3.23L, Hemoglobin 9.2L, Hematocrit 27.4L , Mean Corpuscular Volume 85, Mean Corpuscular Hemoglobin 28.6, Mean Corpuscular Hemoglobin Concent 33.8, Red Cell Distribution Width 14.9H, Platelet Count 333, Mean Platelet Volume 4.3L, Neutrophils (%) (Auto) 64.7, Lymphocytes (%) (Auto) 16.1L, Monocytes (%) (Auto) 10.0, Eosinophils (%) (Auto) 7.6H, Basophils (%) (Auto) 1.5, Sodium Level 150H, Potassium Level 3.4L, Chloride Level 111H, Carbon Dioxide Level 24, Anion Gap 15, Blood Urea Nitrogen 19H, Creatinine 1.7H, Estimat Glomerular Filtration Rate 48.2, Glucose Level 73L , Calcium Level 9.2 Height (Feet): 5 Height (Inches): 7.00 Weight (Pounds): 166 General Appearance: lethargic EENT: normal ENT inspection Neck: normal alignment Cardiovascular: normal peripheral pulses, normal rate, regular rhythm Respiratory/Chest: chest wall non-tender, decreased breath sounds Abdomen: normal bowel sounds, non tender, soft Extremities: normal inspection Edema: no edema noted Arm (L), no edema noted Arm (R), no edema noted Leg (L), no edema noted Leg (R), no edema noted Pedal (L), no edema noted Pedal (R), no edema noted Generalized Neurologic: motor weakness Skin: normal pigmentation, warm/dry Sawyer Toussaint DO Apr 24, 2019 09:36
--- NOTE | 2019-04-24 09:58 | Cardiac Electrophysiology PN ---
Assessment/Plan Assessment/Plan 1. Status post 2 non infarctional separate juan antonio arrest with asystole. Both episodes happened in the setting of respiratory failure and off the Vent No evidence of ventricular tachycardia or ventricular fibrillation. Off any GARCÍA or AVN olivia EF 65%. All 3 troponins were less than 0.1. Watch for recurrence of bradycardia 2. Recurrent Respiratory failure, extubated 04/08/19 and reintubated 04/13/19 and rextubated 04/19/19 3. History of stage III prostate cancer, followed by Dr. Monroy and Dr Root. Morales was changed. Follows up at [facility] 4. Shock. Off Levophed on iv Abx. 5. Hypercalcemia due to prostate cancer. 6. Hypernatremia. 7. Anemia, s/p PRBC 04/08/19. Hb 7 again. S/P1 unit PRBC 8. Low K. Replace 9. Dysphagia, PEG by Dr Lamb on Saturday 10. Pleural effusion, on Lasix drip as family refused thoracentesis DW RN Subjective Subjective In ICU on 2liter Nasal Cannula. No juan antonio yet. NGT feeding. Still on Lasix drip per Dr Mathews as family refused thoracentesis but consented for PEG placement Objective Last 24 Hour Vital Signs Date Time Temp Pulse Resp B/P (MAP) Pulse Ox O2 Delivery O2 Flow Rate FiO2 04/24/19 09:00 115 27 113/72 (86) 100 04/24/19 08:00 Bi-pap 04/24/19 08:00 2.0 04/24/19 08:00 98.0 110 25 108/69 (82) 100 04/24/19 07:58 106 04/24/19 07:24 100 Nasal Cannula 2.0 28 04/24/19 07:12 112 23 99 Nasal Cannula 2.0 28 114 24 99 04/24/19 07:00 98.4 116 24 130/80 (97) 98 04/24/19 06:00 122 22 138/82 (100) 95 04/24/19 05:00 108 19 115/72 (86) 100 04/24/19 04:00 107 20 115/70 (85) 100 04/24/19 04:00 106 04/24/19 04:00 2.0 04/24/19 04:00 Bi-pap 04/24/19 03:18 112 23 98 Bi-Pap 30 117 20 100 30 04/24/19 03:00 107 24 116/73 (87) 99 04/24/19 02:00 108 24 115/68 (84) 99 04/24/19 01:00 105 25 111/72 (85) 98 04/24/19 00:00 103 04/24/19 00:00 2.0 04/24/19 00:00 Bi-pap 04/24/19 00:00 98.0 99 17 112/69 (83) 04/23/19 23:13 104 21 100 Bi-Pap 30 106 22 100 30 04/23/19 23:00 104 21 124/78 (93) 98 04/23/19 22:00 100 17 132/83 (99) 99 04/23/19 21:05 101 21 100 30 04/23/19 21:00 98 18 127/77 (94) 100 04/23/19 20:03 100 18 100 Bi-Pap 30 104 18 100 30 04/23/19 20:03 100 Bi-Pap 30 04/23/19 20:00 30 04/23/19 20:00 103 04/23/19 20:00 98.0 102 23 129/79 (96) 86 04/23/19 20:00 Bi-pap 04/23/19 19:00 101 20 129/82 (98) 98 04/23/19 18:00 98 16 134/84 (101) 100 04/23/19 17:00 90 16 110/74 (86) 100 04/23/19 16:54 101 17 100 30 04/23/19 16:00 30 04/23/19 16:00 97.9 97 18 119/76 (90) 99 04/23/19 16:00 92 04/23/19 16:00 Bi-pap 04/23/19 15:01 95 16 100 Bi-Pap 30 96 15 100 04/23/19 15:00 98 20 118/77 (91) 100 04/23/19 14:00 98 20 118/77 (91) 100 04/23/19 14:00 95 19 120/74 (89) 100 04/23/19 13:00 96 18 99 30 04/23/19 13:00 98 20 116/78 (91) 100 04/23/19 13:00 96 18 99 Bi-Pap 30 04/23/19 12:00 Bi-pap 04/23/19 12:00 97.7 100 19 136/92 (107) 99 04/23/19 12:00 98 04/23/19 12:00 30 04/23/19 11:28 101 21 98 30 04/23/19 11:00 100 21 131/84 (100) 100 04/23/19 10:00 102 21 116/74 (88) 100 Intake and Output 04/23/19 04/24/19 19:00 07:00 Intake Total 162.5 ml 550 ml Output Total 395 ml 1060 ml Balance -232.5 ml -510 ml IV Total 162.5 ml 110 ml Tube Feeding 440 ml Output Urine Total 395 ml 1060 ml # Bowel Movements 1 Laboratory Tests Test 04/24/19 05:00 White Blood Count 4.3 K/UL (4.8-10.8) L Red Blood Count 3.23 M/UL (4.70-6.10) L Hemoglobin 9.2 G/DL (14.2-18.0) L Hematocrit 27.4 % (42.0-52.0) L Mean Corpuscular Volume 85 FL (80-99) Mean Corpuscular Hemoglobin 28.6 PG (27.0-31.0) Mean Corpuscular Hemoglobin Concent 33.8 G/DL (32.0-36.0) Red Cell Distribution Width 14.9 % (11.6-14.8) H Platelet Count 333 K/UL (150-450) Mean Platelet Volume 4.3 FL (6.5-10.1) L Neutrophils (%) (Auto) 64.7 % (45.0-75.0) Lymphocytes (%) (Auto) 16.1 % (20.0-45.0) L Monocytes (%) (Auto) 10.0 % (1.0-10.0) Eosinophils (%) (Auto) 7.6 % (0.0-3.0) H Basophils (%) (Auto) 1.5 % (0.0-2.0) Sodium Level 150 MMOL/L (136-145) H Potassium Level 3.4 MMOL/L (3.5-5.1) L Chloride Level 111 MMOL/L (98-107) H Carbon Dioxide Level 24 MMOL/L (21-32) Anion Gap 15 mmol/L (5-15) Blood Urea Nitrogen 19 mg/dL (7-18) H Creatinine 1.7 MG/DL (0.55-1.30) H Estimat Glomerular Filtration Rate 48.2 mL/min (>60) Glucose Level 73 MG/DL (74-106) L Calcium Level 9.2 MG/DL (8.5-10.1) Objective HEENT: No JVD. NGT is on LUNGS: Coarse rhonchi. CARDIOVASCULAR: Regular S1 and S2 ABDOMEN: Soft and nondistended. EXTREMITIES: No pitting edema. Nain Cortez MD Apr 24, 2019 09:58
--- NOTE | 2019-04-24 10:22 | NUR ---
RADIOLOGY DEPT., CHEST X-RAY DONE.-P.DYE
--- NOTE | 2019-04-24 10:26 | NUR ---
NURSE NOTES: Patient is complaining of pain, called primary MD's office for orders. Awaiting call back.
--- NOTE | 2019-04-24 10:54 | NUR ---
NURSE NOTES: Received call back from Dr. Monroy. Orders received.
--- NOTE | 2019-04-24 11:08 | NUR ---
NURSE NOTES: Gave prescribed Tylenol 650mg for pain to patient. Will continue to monitor.
--- NOTE | 2019-04-24 11:36 | Infectious Diseases Prog Note ---
Assessment/Plan Assessment/Plan Assessment: s/p bradycardia>cardiac arrest 04/13 VDRF 04/13; sp extubation 04/19 Shock, recurrent- off pressors -04/20 CXR: Interim extubation. Increased left greater than right pleural fluid s/p asystole cardiac arrest 04/06 VDRF; s/p extubation 04/08 Probable PNA -04/21 CXR:Shifting infiltrates on the right, with increased hazy midlung infiltrate, improved right basilar consolidation or atelectasis or pleural fluid. Slightly increased generalized mild interstitial congestion. Stable large left pleural effusion Low grade fever; SP Mild leukocytosis, recurrent- SP -04/15 sp cx normal resp sharyn (prelim) -04/14 u/a wbc 10-15, nit neg, leuk +3; ucx Neg CXR: Interim development of complete right upper lobe atelectasis. Nonspecific diffuse hazy left lung opacity, likely mild pulmonary edema. -04/07 Bcx NTD u/a wbc tnct, nit neg, leuk +; ucx neg -04/06 CXR: Interval resolution of right apical density. This suggests the diagnosis was atelectasis rather than an apical cap from blood, which was suggested as a possibility on the prior report. The right upper lobe atelectasis has resolved. Suspicion of new atelectasis at the right lung base. Sepsis UTI B/l hydroureteronephrosis -04/10 CT abd/p: Evidence of advanced metastatic neoplasm likely secondary to prostate carcinoma. Extensive retroperitoneal and pelvic lymphadenopathy complicated by presence of bilateral hydroureteronephrosis. Extensive metastatic disease involving the bones also noted. Small left pleural effusion. Right trace right pleural effusion. Right inguinal hernia containing a small amount of fluid. Alternatively this could represent part of the testis. Anasarca. -u/a wbc 20-30, nit +, leuk +3; ucx >100k E.coli (R amp, bactrim; otherwise S) Probable Aspiration pneumonitis vs PNA -04/08 CXR: Patchy perihilar disease which may be asymmetric interstitial edema or infiltrate unchanged. Interval resolution of right basal atelectasis. -04/07 sp cx normal sharyn(prelim) s/p recent fall LETA Hypokalemia prostate CA stage IV, mets to bone chronic indwelling guerra catheter Plan: -Continue Cefepime #01/11- for probable PNA -2/14 SP Vanc IV #4 -2/10 SP Ceftriaxone #4 - 2/7 Sp ZOsyn #4 -2/6 SP IV Vancomycin #3 -2/4 SP Ceftriaxone #4 -f/u cx -Monitor CBC/CMP, temperatures -aspiration precautions -Cards, renal, Uro, pulm f/u -ICU care -poor px- consider re-evaluation of goals of care- ?Hospice -CXR Thank you for this consultation. Will continue to follow along with you. Subjective Allergies: Coded Allergies: No Known Allergies (Unverified , 04/03/19) Subjective afebrile no leukocytosis on bipap Objective Vital Signs Last 24 Hour Vital Signs Date Time Temp Pulse Resp B/P (MAP) Pulse Ox O2 Delivery O2 Flow Rate FiO2 04/24/19 11:00 112 23 110/77 (88) 100 04/24/19 10:02 117 24 111/69 (83) 93 04/24/19 09:00 115 27 113/72 (86) 100 04/24/19 08:00 Bi-pap 04/24/19 08:00 2.0 04/24/19 08:00 98.0 110 25 108/69 (82) 100 04/24/19 07:58 106 04/24/19 07:24 100 Nasal Cannula 2.0 28 04/24/19 07:12 112 23 99 Nasal Cannula 2.0 28 114 24 99 04/24/19 07:00 98.4 116 24 130/80 (97) 98 04/24/19 06:00 122 22 138/82 (100) 95 04/24/19 05:00 108 19 115/72 (86) 100 04/24/19 04:00 107 20 115/70 (85) 100 04/24/19 04:00 106 04/24/19 04:00 2.0 04/24/19 04:00 Bi-pap 04/24/19 03:18 112 23 98 Bi-Pap 30 117 20 100 30 04/24/19 03:00 107 24 116/73 (87) 99 04/24/19 02:00 108 24 115/68 (84) 99 04/24/19 01:00 105 25 111/72 (85) 98 04/24/19 00:00 103 04/24/19 00:00 2.0 2/21/20 00:00 Bi-pap 04/24/19 00:00 98.0 99 17 112/69 (83) 04/23/19 23:13 104 21 100 Bi-Pap 30 106 22 100 30 04/23/19 23:00 104 21 124/78 (93) 98 04/23/19 22:00 100 17 132/83 (99) 99 04/23/19 21:05 101 21 100 30 04/23/19 21:00 98 18 127/77 (94) 100 04/23/19 20:03 100 18 100 Bi-Pap 30 104 18 100 30 04/23/19 20:03 100 Bi-Pap 30 04/23/19 20:00 30 04/23/19 20:00 103 04/23/19 20:00 98.0 102 23 129/79 (96) 86 04/23/19 20:00 Bi-pap 04/23/19 19:00 101 20 129/82 (98) 98 04/23/19 18:00 98 16 134/84 (101) 100 04/23/19 17:00 90 16 110/74 (86) 100 04/23/19 16:54 101 17 100 30 04/23/19 16:00 30 04/23/19 16:00 97.9 97 18 119/76 (90) 99 04/23/19 16:00 92 04/23/19 16:00 Bi-pap 04/23/19 15:01 95 16 100 Bi-Pap 30 96 15 100 04/23/19 15:00 98 20 118/77 (91) 100 04/23/19 14:00 98 20 118/77 (91) 100 04/23/19 14:00 95 19 120/74 (89) 100 04/23/19 13:00 96 18 99 30 04/23/19 13:00 98 20 116/78 (91) 100 04/23/19 13:00 96 18 99 Bi-Pap 30 04/23/19 12:00 Bi-pap 04/23/19 12:00 97.7 100 19 136/92 (107) 99 04/23/19 12:00 98 04/23/19 12:00 30 Height (Feet): 5 Height (Inches): 7.00 Weight (Pounds): 151 Objective General Appearance: normal inspection, alert, Chronically Ill ENT: bipap mask on place Neck: normal inspection, supple Respiratory: normal inspection, lungs clear, no wheezing Cardiovascular # regular rate, rhythm, no edema Gastrointestinal: normal inspection, normal bowel sounds, non tender, soft, no guardinga Musculoskeletal: normal inspection, back normal, normal range of motion Skin: no rash Laboratory Tests Test 04/24/19 05:00 04/24/19 09:46 White Blood Count 4.3 K/UL (4.8-10.8) L Red Blood Count 3.23 M/UL (4.70-6.10) L Hemoglobin 9.2 G/DL (14.2-18.0) L Hematocrit 27.4 % (42.0-52.0) L Mean Corpuscular Volume 85 FL (80-99) Mean Corpuscular Hemoglobin 28.6 PG (27.0-31.0) Mean Corpuscular Hemoglobin Concent 33.8 G/DL (32.0-36.0) Red Cell Distribution Width 14.9 % (11.6-14.8) H Platelet Count 333 K/UL (150-450) Mean Platelet Volume 4.3 FL (6.5-10.1) L Neutrophils (%) (Auto) 64.7 % (45.0-75.0) Lymphocytes (%) (Auto) 16.1 % (20.0-45.0) L Monocytes (%) (Auto) 10.0 % (1.0-10.0) Eosinophils (%) (Auto) 7.6 % (0.0-3.0) H Basophils (%) (Auto) 1.5 % (0.0-2.0) Sodium Level 150 MMOL/L (136-145) H Potassium Level 3.4 MMOL/L (3.5-5.1) L Chloride Level 111 MMOL/L (98-107) H Carbon Dioxide Level 24 MMOL/L (21-32) Anion Gap 15 mmol/L (5-15) Blood Urea Nitrogen 19 mg/dL (7-18) H Creatinine 1.7 MG/DL (0.55-1.30) H Estimat Glomerular Filtration Rate 48.2 mL/min (>60) Glucose Level 73 MG/DL (74-106) L Calcium Level 9.2 MG/DL (8.5-10.1) Arterial Blood pH 7.369 (7.350-7.450) Arterial Blood Partial Pressure CO2 48.3 mmHg (35.0-45.0) H Arterial Blood Partial Pressure O2 86.9 mmHg (75.0-100.0) Arterial Blood HCO3 27.2 mmol/L (22.0-26.0) H Arterial Blood Oxygen Saturation 96.0 % (95-100) Arterial Blood Base Excess 1.5 (-2-2) Antonio Test Positive Current Medications Medications (Trade) Dose Ordered Sig/[place] Route PRN Reason Start Time Stop Time Status Last Admin Dose Admin Acetaminophen (Tylenol) 650 mg Q6H PRN ORAL Mild Pain/Temp > 100.5 04/24/19 11:00 05/24/19 10:59 04/24/19 11:06 Acetylcysteine (Mucomyst) 200 mg Q4HRT N 04/18/19 11:00 05/18/19 10:59 04/24/19 07:11 Albuterol/ Ipratropium (Albuterol/ Ipratropium) 3 ml Q4HRT N 04/23/19 15:00 04/28/19 14:59 04/24/19 07:10 Cefepime HCl 1 gm/ Dextrose 55 ml @ 110 mls/hr Q24H IVPB 04/21/19 12:00 04/28/19 11:59 04/23/19 11:55 Dextrose 1,000 ml @ 50 mls/hr Q20H IV 04/24/19 07:30 05/24/19 07:29 04/24/19 08:04 Enoxaparin Sodium (Lovenox) 40 mg DAILY SUBQ 04/25/19 09:00 05/25/19 08:59 Furosemide 100 mg/ Dextrose 100 ml @ 10 mls/hr Q10H IV 04/23/19 14:00 05/23/19 13:59 04/24/19 10:00 Hydralazine HCl (Apresoline) 10 mg Q4H PRN IV SBP > 170mmHg 04/13/19 15:00 05/08/19 14:59 Lansoprazole (Prevacid) 30 mg DAILY ORAL 04/14/19 09:00 05/13/19 08:59 04/24/19 09:03 Lorazepam (Ativan 2mg/ml 1ml) 1 mg Q6H PRN IV For Anxiety 04/17/19 18:15 04/24/19 18:14 04/19/19 02:34 Memantine (Namenda) 5 mg BID ORAL 04/13/19 18:00 05/04/19 17:59 04/24/19 09:03 Norepinephrine Bitartrate 4 mg/ Dextrose 250 ml @ 0 mls/hr Q24H IV 04/13/19 17:00 05/13/19 16:59 04/14/19 22:57 Tamsulosin HCl (Flomax) 0.4 mg BEDTIME ORAL 04/13/19 21:00 05/13/19 20:59 04/23/19 20:41 Rafia Nielson M.D. Apr 24, 2019 11:36
[2019-04-24] MEDS: Cefepime HCl 1 GM in D5W 55 ML IVPB SCH (12:14)
--- NOTE | 2019-04-24 14:15 | NUR ---
NURSE NOTES: Patient was found with NGT displaced, re-inserted NG-tube, feeding held, awaiting Xray for placement.
--- NOTE | 2019-04-24 14:19 | Surgery Progress Note ---
Surgery Progress Note Subjective Procedure Performed right femoral central venous catheter insertion Symptoms: improved, tolerating diet, voiding well, passing flatus, BM, pain decreased Objective Last 24 Hour Vital Signs Date Time Temp Pulse Resp B/P (MAP) Pulse Ox O2 Delivery O2 Flow Rate FiO2 04/24/19 13:00 109 24 113/71 (85) 99 04/24/19 13:00 113 22 113/71 (85) 100 04/24/19 12:00 98.0 113 25 122/75 (91) 99 04/24/19 12:00 110 04/24/19 12:00 Bi-pap 04/24/19 12:00 2.0 04/24/19 11:59 108 22 99 Nasal Cannula 2.0 28 113 24 99 04/24/19 11:31 113 04/24/19 11:00 112 23 110/77 (88) 100 04/24/19 10:02 117 24 111/69 (83) 93 04/24/19 09:00 115 27 113/72 (86) 100 04/24/19 08:00 Bi-pap 04/24/19 08:00 2.0 04/24/19 08:00 98.0 110 25 108/69 (82) 100 04/24/19 07:58 106 04/24/19 07:24 100 Nasal Cannula 2.0 28 04/24/19 07:12 112 23 99 Nasal Cannula 2.0 28 114 24 99 04/24/19 07:00 98.4 116 24 130/80 (97) 98 04/24/19 06:00 122 22 138/82 (100) 95 04/24/19 05:00 108 19 115/72 (86) 100 04/24/19 04:00 107 20 115/70 (85) 100 04/24/19 04:00 106 04/24/19 04:00 2.0 04/24/19 04:00 Bi-pap 04/24/19 03:18 112 23 98 Bi-Pap 30 117 20 100 30 04/24/19 03:00 107 24 116/73 (87) 99 04/24/19 02:00 108 24 115/68 (84) 99 04/24/19 01:00 105 25 111/72 (85) 98 04/24/19 00:00 103 04/24/19 00:00 2.0 04/24/19 00:00 Bi-pap 04/24/19 00:00 98.0 99 17 112/69 (83) 04/23/19 23:13 104 21 100 Bi-Pap 30 106 22 100 30 04/23/19 23:00 104 21 124/78 (93) 98 04/23/19 22:00 100 17 132/83 (99) 99 04/23/19 21:05 101 21 100 30 04/23/19 21:00 98 18 127/77 (94) 100 04/23/19 20:03 100 18 100 Bi-Pap 30 104 18 100 30 04/23/19 20:03 100 Bi-Pap 30 04/23/19 20:00 30 04/23/19 20:00 103 04/23/19 20:00 98.0 102 23 129/79 (96) 86 04/23/19 20:00 Bi-pap 04/23/19 19:00 101 20 129/82 (98) 98 04/23/19 18:00 98 16 134/84 (101) 100 04/23/19 17:00 90 16 110/74 (86) 100 04/23/19 16:54 101 17 100 30 04/23/19 16:00 30 04/23/19 16:00 97.9 97 18 119/76 (90) 99 04/23/19 16:00 92 04/23/19 16:00 Bi-pap 04/23/19 15:01 95 16 100 Bi-Pap 30 96 15 100 04/23/19 15:00 98 20 118/77 (91) 100 I&O Intake and Output 04/23/19 04/24/19 19:00 07:00 Intake Total 162.5 ml 550 ml Output Total 395 ml 1060 ml Balance -232.5 ml -510 ml IV Total 162.5 ml 110 ml Tube Feeding 440 ml Output Urine Total 395 ml 1060 ml # Bowel Movements 1 Dressing: dry Wound: clean Cardiovascular: RSR Respiratory: clear, decreased breath sounds Abdomen: soft, non-tender, present bowel sounds, other, non-distended Extremities: no cyanosis Laboratory Tests Test 04/24/19 05:00 04/24/19 09:46 White Blood Count 4.3 K/UL (4.8-10.8) L Red Blood Count 3.23 M/UL (4.70-6.10) L Hemoglobin 9.2 G/DL (14.2-18.0) L Hematocrit 27.4 % (42.0-52.0) L Mean Corpuscular Volume 85 FL (80-99) Mean Corpuscular Hemoglobin 28.6 PG (27.0-31.0) Mean Corpuscular Hemoglobin Concent 33.8 G/DL (32.0-36.0) Red Cell Distribution Width 14.9 % (11.6-14.8) H Platelet Count 333 K/UL (150-450) Mean Platelet Volume 4.3 FL (6.5-10.1) L Neutrophils (%) (Auto) 64.7 % (45.0-75.0) Lymphocytes (%) (Auto) 16.1 % (20.0-45.0) L Monocytes (%) (Auto) 10.0 % (1.0-10.0) Eosinophils (%) (Auto) 7.6 % (0.0-3.0) H Basophils (%) (Auto) 1.5 % (0.0-2.0) Sodium Level 150 MMOL/L (136-145) H Potassium Level 3.4 MMOL/L (3.5-5.1) L Chloride Level 111 MMOL/L (98-107) H Carbon Dioxide Level 24 MMOL/L (21-32) Anion Gap 15 mmol/L (5-15) Blood Urea Nitrogen 19 mg/dL (7-18) H Creatinine 1.7 MG/DL (0.55-1.30) H Estimat Glomerular Filtration Rate 48.2 mL/min (>60) Glucose Level 73 MG/DL (74-106) L Calcium Level 9.2 MG/DL (8.5-10.1) Arterial Blood pH 7.369 (7.350-7.450) Arterial Blood Partial Pressure CO2 48.3 mmHg (35.0-45.0) H Arterial Blood Partial Pressure O2 86.9 mmHg (75.0-100.0) Arterial Blood HCO3 27.2 mmol/L (22.0-26.0) H Arterial Blood Oxygen Saturation 96.0 % (95-100) Arterial Blood Base Excess 1.5 (-2-2) Antonio Test Positive Plan Problems: (1) Cardiac arrest Assessment & Plan: Acute deterioration Cardiovascular lopez ACLS required for resuscitation Still full code Hypotensive intensive care unit requiring a new central venous catheter see note Antibiotics as per infectious caries cont current treatment improving trend labs diet as tolerated improving on bipap may require intubation if so will recommend trach will follow with fermin thank you (2) Stage III adenocarcinoma of prostate Assessment & Plan: patient with state 3 prostate cancer pending treatment at [facility] unlikely related to acute cardiac arrest this am abd exam with mild distention no acute surgical intervention planned onc input improving extubated diet as tolerated thank you will follow with Jay Conrad Apr 24, 2019 14:19
--- NOTE | 2019-04-24 15:27 | NUR ---
NURSE NOTES: Spoke to Dr. Gilmore on the phone, NGT placement is confirmed. Tube feeding will resume.
--- NOTE | 2019-04-24 15:28 | Diagnostic Imaging Report ---
Indication: Dyspnea Technique: One view of the chest Comparison: 04/21/2019 Findings: Slightly better inspiration currently. Stable satisfactory position of nasogastric tube. Left pleural effusion may be slightly improved. Borderline interstitial congestive changes persist Impression: Suggestion of slight improvement of left pleural effusion. Otherwise little pack changer 3 days
--- NOTE | 2019-04-24 15:33 | Diagnostic Imaging Report ---
Indication: Status post nasogastric tube repositioning Technique: Supine view of the abdomen Comparison: 04/14/2019, also chest radiograph of earlier the same day Findings: Nasogastric tube is in good position, tip projected at the level gastric body antrum junction. Bowel gas pattern is unremarkable. There is evidence of Morales catheter. The included lower chest demonstrate a left pleural effusion Impression: Satisfactory nasogastric intubation Patient's nurse notified at the time of interpretation
--- NOTE | 2019-04-24 18:07 | Pulmonology Progress Note ---
Assessment/Plan Assessment/Plan IMPRESSION: 1. Status post asystolic cardiac arrest. Again on 04/13/19 2. Respiratory failure, re-intubated; and now extubated 04/20/19 3. Altered mental status. Resolved 4. Hypernatremia. Corrected. 5. Hypokalemia . Corrected. 6. History of COPD. 7. Prostate CA. DISCUSSION: 1. Discussed with cardiology and PMD 2. Discussed with daughter in law (James), son (Abdoul) and sister 3. Doing well post extubation 5. Dc diuretics 6. Transfused CXR looking better; Needs PEG; would not advise PO diet again Remains intermittently on BiPAP has large left pleural effusion, family refuses thoracentesis. Will increase diuresis Check CXR and labs in AM Ganesh Mathews M.D. Subjective Interval Events: More awake and responsive; off BiPAP Constitutional: Reports: no symptoms HEENT: Repors: no symptoms Respiratory: Reports: no symptoms Cardiovascular: Reports: no symptoms Gastrointestinal/Abdominal: Reports: no symptoms Genitourinary: Reports: no symptoms Allergies: Coded Allergies: No Known Allergies (Unverified , 04/03/19) Objective Last 24 Hour Vital Signs Date Time Temp Pulse Resp B/P (MAP) Pulse Ox O2 Delivery O2 Flow Rate FiO2 04/24/19 17:00 98.8 112 27 102/71 (81) 98 04/24/19 16:00 113 27 111/72 (85) 99 04/24/19 16:00 Bi-pap 04/24/19 16:00 2.0 04/24/19 15:29 109 04/24/19 15:00 107 22 108/76 (87) 100 04/24/19 14:58 108 24 100 Nasal Cannula 2.0 28 107 23 100 04/24/19 14:00 115 21 105/72 (83) 98 04/24/19 13:00 109 24 113/71 (85) 99 04/24/19 13:00 113 22 113/71 (85) 100 04/24/19 12:00 98.0 113 25 122/75 (91) 99 04/24/19 12:00 110 04/24/19 12:00 Bi-pap 04/24/19 12:00 2.0 04/24/19 11:59 108 22 99 Nasal Cannula 2.0 28 113 24 99 04/24/19 11:31 113 04/24/19 11:00 112 23 110/77 (88) 100 04/24/19 10:02 117 24 111/69 (83) 93 04/24/19 09:00 115 27 113/72 (86) 100 04/24/19 08:00 Bi-pap 04/24/19 08:00 2.0 04/24/19 08:00 98.0 110 25 108/69 (82) 100 04/24/19 07:58 106 04/24/19 07:24 100 Nasal Cannula 2.0 28 04/24/19 07:12 112 23 99 Nasal Cannula 2.0 28 114 24 99 04/24/19 07:00 98.4 116 24 130/80 (97) 98 04/24/19 06:00 122 22 138/82 (100) 95 04/24/19 05:00 108 19 115/72 (86) 100 04/24/19 04:00 107 20 115/70 (85) 100 04/24/19 04:00 106 04/24/19 04:00 2.0 04/24/19 04:00 Bi-pap 04/24/19 03:18 112 23 98 Bi-Pap 30 117 20 100 30 04/24/19 03:00 107 24 116/73 (87) 99 04/24/19 02:00 108 24 115/68 (84) 99 04/24/19 01:00 105 25 111/72 (85) 98 04/24/19 00:00 103 04/24/19 00:00 2.0 04/24/19 00:00 Bi-pap 04/24/19 00:00 98.0 99 17 112/69 (83) 04/23/19 23:13 104 21 100 Bi-Pap 30 106 22 100 30 04/23/19 23:00 104 21 124/78 (93) 98 04/23/19 22:00 100 17 132/83 (99) 99 04/23/19 21:05 101 21 100 30 04/23/19 21:00 98 18 127/77 (94) 100 04/23/19 20:03 100 18 100 Bi-Pap 30 104 18 100 30 04/23/19 20:03 100 Bi-Pap 30 04/23/19 20:00 30 04/23/19 20:00 103 04/23/19 20:00 98.0 102 23 129/79 (96) 86 04/23/19 20:00 Bi-pap 04/23/19 19:00 101 20 129/82 (98) 98 Intake and Output 04/23/19 04/24/19 19:00 07:00 Intake Total 162.5 ml 550 ml Output Total 395 ml 1060 ml Balance -232.5 ml -510 ml IV Total 162.5 ml 110 ml Tube Feeding 440 ml Output Urine Total 395 ml 1060 ml # Bowel Movements 1 General Appearance: no acute distress HEENT: normocephalic Respiratory/Chest: chest wall non-tender, lungs clear Cardiovascular: normal peripheral pulses Abdomen: normal bowel sounds Laboratory Tests 04/24/19 05:00: White Blood Count 4.3L, Red Blood Count 3.23L, Hemoglobin 9.2L, Hematocrit 27.4L , Mean Corpuscular Volume 85, Mean Corpuscular Hemoglobin 28.6, Mean Corpuscular Hemoglobin Concent 33.8, Red Cell Distribution Width 14.9H, Platelet Count 333, Mean Platelet Volume 4.3L, Neutrophils (%) (Auto) 64.7, Lymphocytes (%) (Auto) 16.1L, Monocytes (%) (Auto) 10.0, Eosinophils (%) (Auto) 7.6H, Basophils (%) (Auto) 1.5, Sodium Level 150H, Potassium Level 3.4L, Chloride Level 111H, Carbon Dioxide Level 24, Anion Gap 15, Blood Urea Nitrogen 19H, Creatinine 1.7H, Estimat Glomerular Filtration Rate 48.2, Glucose Level 73L , Calcium Level 9.2 04/24/19 09:46: Arterial Blood pH 7.369, Arterial Blood Partial Pressure CO2 48.3H, Arterial Blood Partial Pressure O2 86.9, Arterial Blood HCO3 27.2H, Arterial Blood Oxygen Saturation 96.0, Arterial Blood Base Excess 1.5, Antonio Test Positive Current Medications Medications (Trade) Dose Ordered Sig/La Nena Route PRN Reason Start Time Stop Time Status Last Admin Dose Admin Acetaminophen (Tylenol) 650 mg Q6H PRN ORAL Mild Pain/Temp > 100.5 04/24/19 11:00 05/24/19 10:59 04/24/19 11:06 Acetylcysteine (Mucomyst) 200 mg Q4HRT N 04/18/19 11:00 05/18/19 10:59 04/24/19 14:57 Albuterol/ Ipratropium (Albuterol/ Ipratropium) 3 ml Q4HRT HHN 04/23/19 15:00 04/28/19 14:59 04/24/19 14:57 Cefepime HCl 1 gm/ Dextrose 55 ml @ 110 mls/hr Q24H IVPB 04/21/19 12:00 04/28/19 11:59 04/24/19 12:14 Dextrose 1,000 ml @ 50 mls/hr Q20H IV 04/24/19 07:30 05/24/19 07:29 04/24/19 08:04 Enoxaparin Sodium (Lovenox) 40 mg DAILY SUBQ 04/25/19 09:00 05/25/19 08:59 Furosemide 100 mg/ Dextrose 100 ml @ 10 mls/hr Q10H IV 04/23/19 14:00 05/23/19 13:59 04/24/19 10:00 Hydralazine HCl (Apresoline) 10 mg Q4H PRN IV SBP > 170mmHg 04/13/19 15:00 05/08/19 14:59 Lansoprazole (Prevacid) 30 mg DAILY ORAL 04/14/19 09:00 05/13/19 08:59 04/24/19 09:03 Lorazepam (Ativan 2mg/ml 1ml) 1 mg Q6H PRN IV For Anxiety 04/17/19 18:15 04/24/19 18:14 04/19/19 02:34 Memantine (Namenda) 5 mg BID ORAL 04/13/19 18:00 05/04/19 17:59 04/24/19 09:03 Norepinephrine Bitartrate 4 mg/ Dextrose 250 ml @ 0 mls/hr Q24H IV 04/13/19 17:00 05/13/19 16:59 04/14/19 22:57 Tamsulosin HCl (Flomax) 0.4 mg BEDTIME ORAL 04/13/19 21:00 05/13/19 20:59 04/23/19 20:41 Ganesh Mathews MD Apr 24, 2019 18:07
--- NOTE | 2019-04-24 19:20 | NUR ---
HAND-OFF: Report given to Jillian RIOS.
--- NOTE | 2019-04-24 19:30 | NUR ---
NURSE NOTES: receivedpt on and off awake and asleep, easily arousable to verbal stimuli St on low 100s on the monitor, bp stable afebrile. on 02 at 2l/nc resp. even and spont. BS+ expiratory wheezing noted to LEAH. pt on cont co2 monitor.. tolerated ngt fdg at 55ml/hr, no residual. hob kept elevated. on aspiration pracaution. pt with sacral stage 2.on p200 mattress turned q 2hrs prn with good skin care done.will continue to monitor.
--- NOTE | 2019-04-24 19:30 | Progress Note ---
DATE: 04/24/2019 SUBJECTIVE: This is a 73-year-old male patient with generalized weakness. The patient , very confused, disorganized, altered mental status, decline in cognition below his baseline. That is why his attending has requested daily psychiatric consultation for this patient. DIAGNOSIS: Major depressive disorder, mild, recurrent with psychotic features. PLAN: Plan for this patient, treat him with medications to stabilize his mood. A 20 minutes of reality-based psychotherapy provided. He has a lot of psychomotor agitation and irritability. Continue Namenda 5 mg twice a day and Ativan 1 mg IV every 6 hours p.r.n. anxiety and agitation. A 20 minutes of cognitive behavioral therapy to help him identify his automatic negative thoughts and help convert negative thoughts to more positive thoughts to reduce depression, anxiety, and mood lability. Chart was reviewed. Discussed with staff. Seen and assessed on his bedside. Cherise Palma M.D. DR: FREDIS JOB#: [id number] CC:
--- NOTE | 2019-04-24 20:25 | NUR ---
NURSE NOTES: RECEIVED PATIENT FROM BLANCA RODRIGUEZ.
[2019-04-24] MEDS: Tamsulosin 0.4mg cap ORAL SCH (20:36)
--- NOTE | 2019-04-24 20:47 | NUR ---
NURSE NOTES: LISA: CALLED BACK FROM REESE KEMP REGARDING PT'S SITUATION THAT UPDATED.
--- NOTE | 2019-04-24 22:45 | NUR ---
NURSE NOTES: LE; DESATURATION 89% NOTED, CHANGED BIPAP I/E 18/5, FIO2 30%, HELD FEEDING PER PROTOCOLS, WILL CONTINUE TO MONITOR.
--- NOTE | 2019-04-24 23:50 | NUR ---
NURSE NOTES: LE; PATIENT ALERT, ORIENTED TO NAME, CONFUSED, REMOVED BIPAP MASK STATUS THAT PATIENT REFUSED MASK, O2 SATURATION 98% NOTED, CHANGED TO O2 2LPM VIA NC, SECURED 2 POINT SOFT RESTRAINTS, WILL CONTINUE TO MONITOR.
[2019-04-25] VITALS (24 sets, daily range): BP systolic 94–123; BP diastolic 60–80
--- NOTE | 2019-04-25 01:18 | NUR ---
NURSE NOTES: PATIENT TRIED TO OUT OF BED, DENIED PAIN OR SOB, VSS, REPOSITIONED, SECURED 2 POINT SOFT RESTRAINTS, PLACED CALL LIGHT IN HAND, ABLE TO USE CALL LIGHT, KEPT BED ALARM AND LOCKED, MADE LOWER BED POSITION, WILL CONTINUE TO MONITOR.
--- NOTE | 2019-04-25 02:17 | NUR ---
NURSE NOTES: PATIENT CALM, HEART RATE 110'S/MIN, O2 SATURATION 100% ON O2 2LPM VIA NC, WILL CONTINUE PLAN OF CARE.
[2019-04-25] MEDS: Acetylcysteine 20% Soln 4ml HHN SCH ×6 (03:07→22:48)
[2019-04-25] MEDS: Albuterol/Ipratropium 3ml neb HHN SCH ×6 (03:07→22:48)
--- NOTE | 2019-04-25 03:37 | NUR ---
NURSE NOTES: GIVEN TYLENOL 650MG VIA NGT FOR SCROTAL AREA PAIN , WILL CONTINUE TO MONITOR.
--- NOTE | 2019-04-25 04:32 | NUR ---
NURSE NOTES: PATIENT COMPLAINED SCROTAL AREA PAIN THAT CALLED DR. REMY, LEFT MESSAGE.
--- NOTE | 2019-04-25 05:08 | NUR ---
NURSE NOTES: PATIENT ASLEEP STATUS, NO PAIN NOTED AT THIS TIME.
--- NOTE | 2019-04-25 06:19 | NUR ---
NURSE NOTES: PATIENT ASLEEP STATUS, CALLED BACK FROM DR. REMY, RECEIVED NEW ORDER, WILL FOLLOW UP.
[2019-04-25] MEDS ORDERED: traMADol 50mg tab NG PRN (06:30)
--- NOTE | 2019-04-25 06:39 | NUR ---
NURSE NOTES: PATIENT CALM, NO PAIN OR SOB NOTED AT THIS TIME.
--- NOTE | 2019-04-25 07:05 | NUR ---
HAND-OFF: Report given to BLANCA AMEZCUA.
--- NOTE | 2019-04-25 07:06 | NUR ---
NURSE NOTES: Report received from Rashid Bain RN. Pt is awake and oriented x1-2. Confused and impulsive at times. Continued bilateral soft wrist restraints. Sinus tachy 100's on ultimate hoops scoreboard operator. Left nare NGT in place receiving Vital AF 1.2 at 50cc/hr. Morales in place draining yellow urine to gravity. IV to left FA G20 patent and asymptomatic. Pt is on D5W at 50cc/hr and Lasix at 10cc/hr. Bed in lowest position. Side rails up x3. Will resume plan of care.
--- NOTE | 2019-04-25 07:12 | NUR ---
RD ASSESSMENT & RECOMMENDATIONS SEE CARE ACTIVITY FOR COMPLETE ASSESSMENT DAILY ESTIMATED NEEDS: Needs based on Underweight, cancer, Pulmonary 54.7kg 30-35 kcals/kg 3465-3144 total kcals 1.25-2 g protein/kg 68-109 g total protein 25-30 mL/kg 1979-2215 total fluid mLs NUTRITION DIAGNOSIS: Underweight r/t cancer? as evidenced by pt w/ prostate cancer, elevated antigen and calium levels, w/ generalized moderate wasting, previously poor po intake, pt is 81% of [place] body Weight, currently s/p code blue x2, re-intubated now extubated, on NGT feeds, pending PEG placement. CURRENT TF:Vital @55ml/hr x varied hours due to BIPAP ENTERAL NUTRITION RECOMMENDATIONS: Osmolite 1.5 @ 50ml/hr x 24 hrs to provide 1200ml, 1800kcal, 75g prot, 914ml free water - Rec TF change to Osmolite 1.5: now extubated, to better meet needs - Initiate Osmolite 1.5 @ 20ml/hr x 6hrs, advance 10ml q 4-6 hrs as tolerated to goal rate - Flush per MD/ HOB over 30 degrees ADDITIONAL RECOMMENDATIONS: 1) Recalibrated bed wts for daily wts -> daily wts are inconsistent 2) Wound healing: add MVI + Vit C 250mg QD + Coleman BID 3) Monitor lytes, replete as needed 4) MONITOR BIPAP USAGE, NEED TO ADJUST TF TO ACCOUNT FOR TF HELD TIME -> variable BIPAP usage time/ TF held time currently 5) Monitor Ca: previously elevated / rec NEPRO should calcium trend up for lowest calcium content
--- NOTE | 2019-04-25 07:37 | General Progress Note ---
Assessment/Plan Status: unchanged Assessment/Plan: Assessment/Plan Problems: (1) Coffee ground emesis (2) Anemia (3) metastatic prostate CA (4) respiratory failure extubated in the ICU NGTF ppi PEG plans for Saturday will fu Subjective ROS Limited/Unobtainable: No Allergies: Coded Allergies: No Known Allergies (Unverified , 04/03/19) Objective Last 24 Hour Vital Signs Date Time Temp Pulse Resp B/P (MAP) Pulse Ox O2 Delivery O2 Flow Rate FiO2 04/25/19 07:24 100 Nasal Cannula 2.0 28 04/25/19 07:00 106 21 102/67 (79) 100 04/25/19 06:00 108 25 112/66 (81) 99 04/25/19 05:00 112 23 103/66 (78) 99 04/25/19 04:53 100 04/25/19 04:00 Nasal Cannula 2.0 04/25/19 04:00 2.0 04/25/19 04:00 97.9 113 29 103/69 (80) 100 04/25/19 03:16 107 04/25/19 03:08 112 20 100 Nasal Cannula 2.0 28 110 20 100 04/25/19 03:07 100 04/25/19 03:00 112 26 105/69 (81) 100 04/25/19 02:00 111 24 106/67 (80) 100 04/25/19 01:00 120 29 103/76 (85) 98 04/25/19 00:53 99 04/25/19 00:00 97.9 114 27 114/69 (84) 100 04/25/19 00:00 Nasal Cannula 2.0 04/25/19 00:00 2.0 04/24/19 23:04 109 04/24/19 23:00 106 24 93/69 (77) 100 04/24/19 22:45 118 24 98 Bi-Pap 30 117 20 100 30 04/24/19 22:40 30 04/24/19 22:00 108 23 113/70 (84) 100 04/24/19 21:00 115 29 108/72 (84) 99 04/24/19 20:00 Nasal Cannula 2.0 04/24/19 20:00 2.0 04/24/19 20:00 98.6 111 25 103/71 (82) 100 04/24/19 19:16 113 2/21/20 19:00 112 22 118/71 (87) 100 04/24/19 18:56 115 22 100 Nasal Cannula 2.0 28 112 22 100 04/24/19 18:49 100 Nasal Cannula 2.0 28 04/24/19 18:00 112 24 113/73 (86) 99 04/24/19 17:00 98.8 112 27 102/71 (81) 98 04/24/19 16:00 113 27 111/72 (85) 99 04/24/19 16:00 Bi-pap 04/24/19 16:00 2.0 04/24/19 15:29 109 04/24/19 15:00 107 22 108/76 (87) 100 04/24/19 14:58 108 24 100 Nasal Cannula 2.0 28 107 23 100 04/24/19 14:00 115 21 105/72 (83) 98 04/24/19 13:00 109 24 113/71 (85) 99 04/24/19 13:00 113 22 113/71 (85) 100 04/24/19 12:00 98.0 113 25 122/75 (91) 99 04/24/19 12:00 110 04/24/19 12:00 Bi-pap 04/24/19 12:00 2.0 04/24/19 11:59 108 22 99 Nasal Cannula 2.0 28 113 24 99 04/24/19 11:31 113 04/24/19 11:00 112 23 110/77 (88) 100 04/24/19 10:02 117 24 111/69 (83) 93 04/24/19 09:00 115 27 113/72 (86) 100 04/24/19 08:00 Bi-pap 04/24/19 08:00 2.0 04/24/19 08:00 98.0 110 25 108/69 (82) 100 04/24/19 07:58 106 Intake and Output 04/24/19 04/25/19 19:00 07:00 Intake Total 1430 ml 1400 ml Output Total 2300 ml 1770 ml Balance -870 ml -370 ml IV Total 825 ml 720 ml Tube Feeding 605 ml 590 ml Other 90 ml Output Urine Total 2300 ml 1770 ml # Bowel Movements 1 Laboratory Tests 04/24/19 09:46: Arterial Blood pH 7.369, Arterial Blood Partial Pressure CO2 48.3H, Arterial Blood Partial Pressure O2 86.9, Arterial Blood HCO3 27.2H, Arterial Blood Oxygen Saturation 96.0, Arterial Blood Base Excess 1.5, Antonio Test Positive 04/25/19 06:31: White Blood Count [Pending], Red Blood Count [Pending], Hemoglobin [Pending], Hematocrit [Pending], Mean Corpuscular Volume [Pending], Mean Corpuscular Hemoglobin [Pending], Mean Corpuscular Hemoglobin Concent [Pending], Red Cell Distribution Width [Pending], Platelet Count [Pending], Mean Platelet Volume [ Pending], Neutrophils (%) (Auto) [Pending], Lymphocytes (%) (Auto) [Pending], Monocytes (%) (Auto) [Pending], Eosinophils (%) (Auto) [Pending], Basophils (%) (Auto) [Pending], Sodium Level [Pending], Potassium Level [Pending], Chloride Level [Pending], Carbon Dioxide Level [Pending], Blood Urea Nitrogen [Pending], Creatinine [Pending], Estimat Glomerular Filtration Rate [Pending], Glucose Level [Pending], Calcium Level [Pending] Height (Feet): 5 Height (Inches): 7.00 Weight (Pounds): 151 General Appearance: lethargic EENT: normal ENT inspection Neck: supple Cardiovascular: normal rate Respiratory/Chest: decreased breath sounds Abdomen: normal bowel sounds, non tender, soft Extremities: non-tender Tyrone Lamb MD Apr 25, 2019 07:37
[2019-04-25 07:44] LABS: ANION GAP 7 mmol/L (5-15); BLOOD UREA NITROGEN 21 mg/dL (7-18); CALCIUM 8.8 MG/DL (8.5-10.1); CARBON DIOXIDE 32 MMOL/L (21-32); CHLORIDE 106 MMOL/L (98-107); CREATININE 1.8 MG/DL (0.55-1.30); POTASSIUM 3.5 MMOL/L (3.5-5.1); SODIUM 145 MMOL/L (136-145)
[2019-04-25 08:17] LABS: BASOPHILS % (AUTO) 1.3 % (0.0-2.0); EOSINOPHILS % (AUTO) 6.5 % (0.0-3.0); HEMATOCRIT 26.9 % (42.0-52.0); HEMOGLOBIN 9.2 G/DL (14.2-18.0); LYMPHOCYTES % (AUTO) 14.6 % (20.0-45.0); MEAN CORPUSCULAR VOLUME 85 FL (80-99); MONOCYTES % (AUTO) 10.5 % (1.0-10.0); NEUTROPHILS % (AUTO) 67.1 % (45.0-75.0); PLATELET COUNT 302 K/UL (150-450); RED BLOOD COUNT 3.16 M/UL (4.70-6.10); RED CELL DISTRIBUTION WIDTH 14.8 % (11.6-14.8); WHITE BLOOD COUNT 5.3 K/UL (4.8-10.8)
[2019-04-25] MEDS: Memantine 5 MG TAB ORAL SCH ×2 (08:44→17:23)
[2019-04-25] MEDS: Enoxaparin 40mg Inj SUBQ SCH (08:45)
--- NOTE | 2019-04-25 08:50 | Diagnostic Imaging Report ---
EXAM: XR Chest, 1 View CLINICAL HISTORY: ABN CHST TECHNIQUE: Frontal view of the chest. COMPARISON: 1 day prior FINDINGS: Lungs: No new infiltrate is identified. There unchanged perihilar and lower lobe mixed interstitial and alveolar traits, likely representing pulmonary edema. Pleural space: There is unchanged moderate left pleural effusion. No pneumothorax. Heart: The heart size is within normal limits. Mediastinum: Unremarkable. Bones/joints: Unremarkable. Tubes, lines and devices: There is moderate ectasia of the thoracic aorta. There is an NG tube in unchanged position IMPRESSION: There is unchanged moderate left pleural effusion. There unchanged perihilar and lower lobe mixed interstitial and alveolar traits, likely representing pulmonary edema.
--- NOTE | 2019-04-25 09:13 | Urology Progress Note ---
Assessment/Plan Status: unchanged Assessment/Plan: 1. 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 2. Urinary retention. 3. Acute kidney injury, labile. 4. Hydronephrosis, likely chronic. 5. Proteinuria. 6. UTI and colonization. 7. Hematuria. monitor clinically maintain guerra, last replaced 04/10 hand irrigated and do PRN position is satisfactory monitor renal fxn, labile likely obst of bilateral distal ureters secondary to advanced prostate ca will need to see how aggressive pt and family want to be renal fxn improved with the new guerra consider ureteral stents or nephrostomies? flomax added s/p abx may need to hold lovenox voiding trial at some point? d/w nursing staff family members want to take pt to [facility] Subjective Allergies: Coded Allergies: No Known Allergies (Unverified , 04/03/19) Subjective all noted, still in ICU Objective Last 24 Hour Vital Signs Date Time Temp Pulse Resp B/P (MAP) Pulse Ox O2 Delivery O2 Flow Rate FiO2 04/25/19 07:40 104 21 100 Nasal Cannula 2.0 28 108 24 100 04/25/19 07:24 100 Nasal Cannula 2.0 28 04/25/19 07:00 106 21 102/67 (79) 100 04/25/19 06:00 108 25 112/66 (81) 99 04/25/19 05:00 112 23 103/66 (78) 99 04/25/19 04:53 100 04/25/19 04:00 Nasal Cannula 2.0 04/25/19 04:00 2.0 04/25/19 04:00 97.9 113 29 103/69 (80) 100 04/25/19 03:16 107 04/25/19 03:08 112 20 100 Nasal Cannula 2.0 28 110 20 100 04/25/19 03:07 100 04/25/19 03:00 112 26 105/69 (81) 100 04/25/19 02:00 111 24 106/67 (80) 100 04/25/19 01:00 120 29 103/76 (85) 98 04/25/19 00:53 99 04/25/19 00:00 97.9 114 27 114/69 (84) 100 04/25/19 00:00 Nasal Cannula 2.0 04/25/19 00:00 2.0 04/24/19 23:04 109 04/24/19 23:00 106 24 93/69 (77) 100 04/24/19 22:45 118 24 98 Bi-Pap 30 117 20 100 30 04/24/19 22:40 30 04/24/19 22:00 108 23 113/70 (84) 100 04/24/19 21:00 115 29 108/72 (84) 99 04/24/19 20:00 Nasal Cannula 2.0 04/24/19 20:00 2.0 04/24/19 20:00 98.6 111 25 103/71 (82) 100 04/24/19 19:16 113 04/24/19 19:00 112 22 118/71 (87) 100 04/24/19 18:56 115 22 100 Nasal Cannula 2.0 28 112 22 100 04/24/19 18:49 100 Nasal Cannula 2.0 28 04/24/19 18:00 112 24 113/73 (86) 99 04/24/19 17:00 98.8 112 27 102/71 (81) 98 04/24/19 16:00 113 27 111/72 (85) 99 04/24/19 16:00 Bi-pap 04/24/19 16:00 2.0 04/24/19 15:29 109 04/24/19 15:00 107 22 108/76 (87) 100 04/24/19 14:58 108 24 100 Nasal Cannula 2.0 28 107 23 100 04/24/19 14:00 115 21 105/72 (83) 98 04/24/19 13:00 109 24 113/71 (85) 99 04/24/19 13:00 113 22 113/71 (85) 100 04/24/19 12:00 98.0 113 25 122/75 (91) 99 04/24/19 12:00 110 04/24/19 12:00 Bi-pap 04/24/19 12:00 2.0 04/24/19 11:59 108 22 99 Nasal Cannula 2.0 28 113 24 99 04/24/19 11:31 113 04/24/19 11:00 112 23 110/77 (88) 100 04/24/19 10:02 117 24 111/69 (83) 93 Intake and Output 04/24/19 04/25/19 19:00 07:00 Intake Total 1430 ml 1400 ml Output Total 2300 ml 1770 ml Balance -870 ml -370 ml IV Total 825 ml 720 ml Tube Feeding 605 ml 590 ml Other 90 ml Output Urine Total 2300 ml 1770 ml # Bowel Movements 1 Microbiology Date/Time Source Procedure Growth Status 04/14/19 12:45 Blood Blood Culture - Final NO GROWTH AFTER 5 DAYS Complete 04/15/19 21:40 Sputum Gram Stain - Final Complete 04/15/19 21:40 Sputum Sputum Culture - Final NORMAL UPPER RESPIRATORY DAVID PRESENT Complete 04/18/19 17:00 Stool Clostridium difficile Toxin Assay - Final Complete 04/14/19 11:25 Urine,Random Urine Culture - Final NO GROWTH AFTER 48 HOURS Complete Current Medications Medications (Trade) Dose Ordered Sig/La Nena Route PRN Reason Start Time Stop Time Status Last Admin Dose Admin Acetaminophen (Tylenol) 650 mg Q6H PRN ORAL Mild Pain/Temp > 100.5 04/24/19 11:00 05/24/19 10:59 04/25/19 03:37 Acetylcysteine (Mucomyst) 200 mg Q4HRT N 04/18/19 11:00 05/18/19 10:59 04/25/19 07:24 Albuterol/ Ipratropium (Albuterol/ Ipratropium) 3 ml Q4HRT N 04/23/19 15:00 04/28/19 14:59 04/25/19 07:24 Cefepime HCl 1 gm/ Dextrose 55 ml @ 110 mls/hr Q24H IVPB 04/21/19 12:00 04/28/19 11:59 04/24/19 12:14 Dextrose 1,000 ml @ 50 mls/hr Q20H IV 04/24/19 07:30 05/24/19 07:29 04/25/19 03:37 Enoxaparin Sodium (Lovenox) 40 mg DAILY SUBQ 04/25/19 09:00 05/25/19 08:59 04/25/19 08:45 Furosemide 100 mg/ Dextrose 100 ml @ 10 mls/hr Q10H IV 04/23/19 14:00 05/23/19 13:59 04/25/19 06:45 Hydralazine HCl (Apresoline) 10 mg Q4H PRN IV SBP > 170mmHg 04/13/19 15:00 05/08/19 14:59 Lansoprazole (Prevacid) 30 mg DAILY ORAL 04/14/19 09:00 05/13/19 08:59 04/25/19 08:44 Memantine (Namenda) 5 mg BID ORAL 04/13/19 18:00 05/04/19 17:59 04/25/19 08:44 Norepinephrine Bitartrate 4 mg/ Dextrose 250 ml @ 0 mls/hr Q24H IV 04/13/19 17:00 05/13/19 16:59 04/14/19 22:57 Tamsulosin HCl (Flomax) 0.4 mg BEDTIME ORAL 04/13/19 21:00 05/13/19 20:59 04/24/19 20:36 Tramadol HCl (Ultram) 50 mg EVERY 8 HOURS PRN NG Moderate Pain (Pain Scale 4-6) 04/25/19 06:30 05/02/19 06:29 Laboratory Tests 04/24/19 09:46: Arterial Blood pH 7.369, Arterial Blood Partial Pressure CO2 48.3H, Arterial Blood Partial Pressure O2 86.9, Arterial Blood HCO3 27.2H, Arterial Blood Oxygen Saturation 96.0, Arterial Blood Base Excess 1.5, Antonio Test Positive 04/25/19 06:31: White Blood Count 5.3, Red Blood Count 3.16L, Hemoglobin 9.2L, Hematocrit 26.9L , Mean Corpuscular Volume 85, Mean Corpuscular Hemoglobin 29.2, Mean Corpuscular Hemoglobin Concent 34.2, Red Cell Distribution Width 14.8, Platelet Count 302, Mean Platelet Volume 4.4L, Neutrophils (%) (Auto) 67.1, Lymphocytes ( %) (Auto) 14.6L, Monocytes (%) (Auto) 10.5H, Eosinophils (%) (Auto) 6.5H, Basophils (%) (Auto) 1.3, Sodium Level 145, Potassium Level 3.5, Chloride Level 106, Carbon Dioxide Level 32, Anion Gap 7, Blood Urea Nitrogen 21H, Creatinine 1.8H, Estimat Glomerular Filtration Rate 45.2, Glucose Level 116H, Calcium Level 8.8 Height (Feet): 5 Height (Inches): 7.00 Weight (Pounds): 151 Objective exam stable guerra indwelling, yellow/allegra urine CT A/P (04/10) noted Raz Root MD Apr 25, 2019 09:13
--- NOTE | 2019-04-25 09:40 | NUR ---
NURSE NOTES: RT placed Bi-pap 18/5, 30% on the patient due to elevated PCO2 57.8 from ABG. Will notify Dr Goodwin.
--- NOTE | 2019-04-25 10:08 | General Progress Note ---
Assessment/Plan Problem List: (1) UTI (urinary tract infection) ICD Codes: N39.0 - Urinary tract infection, site not specified SNOMED: 80680582 (2) Weak ICD Codes: R53.1 - Weakness SNOMED: 08683947 (3) Anemia ICD Codes: D64.9 - Anemia, unspecified SNOMED: 116027673 (4) Dehydration ICD Codes: E86.0 - Dehydration SNOMED: 27977608, 17080992 (5) Episode of generalized weakness ICD Codes: R53.1 - Weakness SNOMED: 84203041 (6) Stage III adenocarcinoma of prostate ICD Codes: C61 - Malignant neoplasm of prostate SNOMED: 805646762, 73938751 Status: unchanged Assessment/Plan: o2 pulm tx pt diet abx iv fluid heme gi eval cbc bmp am Subjective Constitutional: Reports: weakness Respiratory: Reports: shortness of breath Allergies: Coded Allergies: No Known Allergies (Unverified , 04/03/19) All Systems: reviewed and negative except above Subjective o2mask ng in icu Objective Last 24 Hour Vital Signs Date Time Temp Pulse Resp B/P (MAP) Pulse Ox O2 Delivery O2 Flow Rate FiO2 04/25/19 10:03 102 18 104/72 (83) 98 04/25/19 09:43 98 19 100 30 04/25/19 09:40 30 04/25/19 09:00 108 27 104/67 (79) 98 04/25/19 08:00 Nasal Cannula 2.0 04/25/19 08:00 108 04/25/19 08:00 2.0 04/25/19 08:00 97.8 105 24 99/71 (80) 100 04/25/19 07:40 104 21 100 Nasal Cannula 2.0 28 108 24 100 04/25/19 07:24 100 Nasal Cannula 2.0 28 04/25/19 07:00 106 21 102/67 (79) 100 04/25/19 06:00 108 25 112/66 (81) 99 04/25/19 05:00 112 23 103/66 (78) 99 04/25/19 04:53 100 04/25/19 04:00 Nasal Cannula 2.0 04/25/19 04:00 2.0 04/25/19 04:00 97.9 113 29 103/69 (80) 100 04/25/19 03:16 107 04/25/19 03:08 112 20 100 Nasal Cannula 2.0 28 110 20 100 04/25/19 03:07 100 04/25/19 03:00 112 26 105/69 (81) 100 04/25/19 02:00 111 24 106/67 (80) 100 04/25/19 01:00 120 29 103/76 (85) 98 04/25/19 00:53 99 04/25/19 00:00 97.9 114 27 114/69 (84) 100 04/25/19 00:00 Nasal Cannula 2.0 04/25/19 00:00 2.0 04/24/19 23:04 109 04/24/19 23:00 106 24 93/69 (77) 100 04/24/19 22:45 118 24 98 Bi-Pap 30 117 20 100 30 04/24/19 22:40 30 04/24/19 22:00 108 23 113/70 (84) 100 04/24/19 21:00 115 29 108/72 (84) 99 04/24/19 20:00 Nasal Cannula 2.0 04/24/19 20:00 2.0 04/24/19 20:00 98.6 111 25 103/71 (82) 100 04/24/19 19:16 113 04/24/19 19:00 112 22 118/71 (87) 100 04/24/19 18:56 115 22 100 Nasal Cannula 2.0 28 112 22 100 04/24/19 18:49 100 Nasal Cannula 2.0 28 04/24/19 18:00 112 24 113/73 (86) 99 04/24/19 17:00 98.8 112 27 102/71 (81) 98 04/24/19 16:00 113 27 111/72 (85) 99 04/24/19 16:00 Bi-pap 04/24/19 16:00 2.0 04/24/19 15:29 109 04/24/19 15:00 107 22 108/76 (87) 100 04/24/19 14:58 108 24 100 Nasal Cannula 2.0 28 107 23 100 04/24/19 14:00 115 21 105/72 (83) 98 04/24/19 13:00 109 24 113/71 (85) 99 04/24/19 13:00 113 22 113/71 (85) 100 04/24/19 12:00 98.0 113 25 122/75 (91) 99 04/24/19 12:00 110 04/24/19 12:00 Bi-pap 04/24/19 12:00 2.0 04/24/19 11:59 108 22 99 Nasal Cannula 2.0 28 113 24 99 04/24/19 11:31 113 04/24/19 11:00 112 23 110/77 (88) 100 Intake and Output 04/24/19 04/25/19 19:00 07:00 Intake Total 1430 ml 1400 ml Output Total 2300 ml 1770 ml Balance -870 ml -370 ml IV Total 825 ml 720 ml Tube Feeding 605 ml 590 ml Other 90 ml Output Urine Total 2300 ml 1770 ml # Bowel Movements 1 Laboratory Tests 04/25/19 06:31: White Blood Count 5.3, Red Blood Count 3.16L, Hemoglobin 9.2L, Hematocrit 26.9L , Mean Corpuscular Volume 85, Mean Corpuscular Hemoglobin 29.2, Mean Corpuscular Hemoglobin Concent 34.2, Red Cell Distribution Width 14.8, Platelet Count 302, Mean Platelet Volume 4.4L, Neutrophils (%) (Auto) 67.1, Lymphocytes ( %) (Auto) 14.6L, Monocytes (%) (Auto) 10.5H, Eosinophils (%) (Auto) 6.5H, Basophils (%) (Auto) 1.3, Sodium Level 145, Potassium Level 3.5, Chloride Level 106, Carbon Dioxide Level 32, Anion Gap 7, Blood Urea Nitrogen 21H, Creatinine 1.8H, Estimat Glomerular Filtration Rate 45.2, Glucose Level 116H, Calcium Level 8.8 04/25/19 09:20: Arterial Blood pH 7.399, Arterial Blood Partial Pressure CO2 57.8*H, Arterial Blood Partial Pressure O2 88.3, Arterial Blood HCO3 34.9H, Arterial Blood Oxygen Saturation 96.2, Arterial Blood Base Excess 8.8H, Antonio Test Positive Height (Feet): 5 Height (Inches): 7.00 Weight (Pounds): 151 General Appearance: lethargic EENT: normal ENT inspection Neck: normal alignment Cardiovascular: normal peripheral pulses, normal rate, regular rhythm Respiratory/Chest: chest wall non-tender, decreased breath sounds Abdomen: normal bowel sounds, non tender, soft Extremities: normal inspection Edema: no edema noted Arm (L), no edema noted Arm (R), no edema noted Leg (L), no edema noted Leg (R), no edema noted Pedal (L), no edema noted Pedal (R), no edema noted Generalized Neurologic: motor weakness Skin: normal pigmentation, warm/dry Sawyer Toussaint DO Apr 25, 2019 10:08
--- NOTE | 2019-04-25 10:34 | Infectious Diseases Prog Note ---
Assessment/Plan Assessment/Plan Assessment: s/p bradycardia>cardiac arrest 04/13 VDRF 04/13; sp extubation 04/19 Shock, recurrent- off pressors -04/20 CXR: Interim extubation. Increased left greater than right pleural fluid s/p asystole cardiac arrest 04/06 VDRF; s/p extubation 04/08 Probable PNA -04/21 CXR:Shifting infiltrates on the right, with increased hazy midlung infiltrate, improved right basilar consolidation or atelectasis or pleural fluid. Slightly increased generalized mild interstitial congestion. Stable large left pleural effusion Low grade fever; SP Mild leukocytosis, recurrent- SP -04/15 sp cx normal resp sharyn (prelim) -04/14 u/a wbc 10-15, nit neg, leuk +3; ucx Neg CXR: Interim development of complete right upper lobe atelectasis. Nonspecific diffuse hazy left lung opacity, likely mild pulmonary edema. -04/07 Bcx NTD u/a wbc tnct, nit neg, leuk +; ucx neg -04/06 CXR: Interval resolution of right apical density. This suggests the diagnosis was atelectasis rather than an apical cap from blood, which was suggested as a possibility on the prior report. The right upper lobe atelectasis has resolved. Suspicion of new atelectasis at the right lung base. Sepsis UTI B/l hydroureteronephrosis -04/10 CT abd/p: Evidence of advanced metastatic neoplasm likely secondary to prostate carcinoma. Extensive retroperitoneal and pelvic lymphadenopathy complicated by presence of bilateral hydroureteronephrosis. Extensive metastatic disease involving the bones also noted. Small left pleural effusion. Right trace right pleural effusion. Right inguinal hernia containing a small amount of fluid. Alternatively this could represent part of the testis. Anasarca. -u/a wbc 20-30, nit +, leuk +3; ucx >100k E.coli (R amp, bactrim; otherwise S) Probable Aspiration pneumonitis vs PNA -04/08 CXR: Patchy perihilar disease which may be asymmetric interstitial edema or infiltrate unchanged. Interval resolution of right basal atelectasis. -04/07 sp cx normal sharyn(prelim) s/p recent fall LETA Hypokalemia prostate CA stage IV, mets to bone chronic indwelling guerra catheter Plan: -Continue Cefepime #02/14 for probable PNA -2/14 SP Vanc IV #4 -10 SP Ceftriaxone #4 - 2/ Sp ZOsyn #4 -2/6 SP IV Vancomycin #3 -2/4 SP Ceftriaxone #4 -f/u cx -Monitor CBC/CMP, temperatures -aspiration precautions -Cards, renal, Uro, pulm f/u -ICU care -poor px- consider re-evaluation of goals of care- ?Hospice -CXR Thank you for this consultation. Will continue to follow along with you. Subjective Allergies: Coded Allergies: No Known Allergies (Unverified , 04/03/19) Subjective Afebrile Sattign well on 2L NC No Leukoctyosis Objective Vital Signs Last 24 Hour Vital Signs Date Time Temp Pulse Resp B/P (MAP) Pulse Ox O2 Delivery O2 Flow Rate FiO2 04/25/19 10:03 102 18 104/72 (83) 98 04/25/19 09:43 98 19 100 30 04/25/19 09:40 30 04/25/19 09:00 108 27 104/67 (79) 98 04/25/19 08:00 Nasal Cannula 2.0 04/25/19 08:00 108 04/25/19 08:00 2.0 04/25/19 08:00 97.8 105 24 99/71 (80) 100 04/25/19 07:40 104 21 100 Nasal Cannula 2.0 28 108 24 100 04/25/19 07:24 100 Nasal Cannula 2.0 28 04/25/19 07:00 106 21 102/67 (79) 100 04/25/19 06:00 108 25 112/66 (81) 99 04/25/19 05:00 112 23 103/66 (78) 99 04/25/19 04:53 100 04/25/19 04:00 Nasal Cannula 2.0 04/25/19 04:00 2.0 04/25/19 04:00 97.9 113 29 103/69 (80) 100 04/25/19 03:16 107 04/25/19 03:08 112 20 100 Nasal Cannula 2.0 28 110 20 100 04/25/19 03:07 100 04/25/19 03:00 112 26 105/69 (81) 100 04/25/19 02:00 111 24 106/67 (80) 100 04/25/19 01:00 120 29 103/76 (85) 98 04/25/19 00:53 99 04/25/19 00:00 97.9 114 27 114/69 (84) 100 04/25/19 00:00 Nasal Cannula 2.0 04/25/19 00:00 2.0 04/24/19 23:04 109 04/24/19 23:00 106 24 93/69 (77) 100 04/24/19 22:45 118 24 98 Bi-Pap 30 117 20 100 30 04/24/19 22:40 30 04/24/19 22:00 108 23 113/70 (84) 100 04/24/19 21:00 115 29 108/72 (84) 99 04/24/19 20:00 Nasal Cannula 2.0 04/24/19 20:00 2.0 04/24/19 20:00 98.6 111 25 103/71 (82) 100 04/24/19 19:16 113 04/24/19 19:00 112 22 118/71 (87) 100 04/24/19 18:56 115 22 100 Nasal Cannula 2.0 28 112 22 100 04/24/19 18:49 100 Nasal Cannula 2.0 28 04/24/19 18:00 112 24 113/73 (86) 99 04/24/19 17:00 98.8 112 27 102/71 (81) 98 04/24/19 16:00 113 27 111/72 (85) 99 04/24/19 16:00 Bi-pap 04/24/19 16:00 2.0 04/24/19 15:29 109 04/24/19 15:00 107 22 108/76 (87) 100 04/24/19 14:58 108 24 100 Nasal Cannula 2.0 28 107 23 100 04/24/19 14:00 115 21 105/72 (83) 98 04/24/19 13:00 109 24 113/71 (85) 99 04/24/19 13:00 113 22 113/71 (85) 100 04/24/19 12:00 98.0 113 25 122/75 (91) 99 04/24/19 12:00 110 04/24/19 12:00 Bi-pap 04/24/19 12:00 2.0 04/24/19 11:59 108 22 99 Nasal Cannula 2.0 28 113 24 99 04/24/19 11:31 113 04/24/19 11:00 112 23 110/77 (88) 100 Height (Feet): 5 Height (Inches): 7.00 Weight (Pounds): 145 Objective General; On 2l NC HEENT: NCAT, MMM, EOMI Respiratory: lungs clear, no wheezing Cardiovascular # regular rate, rhythm, no edema Gastrointestinal: normal inspection, normal bowel sounds, non tender, soft, Laboratory Tests Test 04/25/19 06:31 04/25/19 09:20 White Blood Count 5.3 K/UL (4.8-10.8) Red Blood Count 3.16 M/UL (4.70-6.10) L Hemoglobin 9.2 G/DL (14.2-18.0) L Hematocrit 26.9 % (42.0-52.0) L Mean Corpuscular Volume 85 FL (80-99) Mean Corpuscular Hemoglobin 29.2 PG (27.0-31.0) Mean Corpuscular Hemoglobin Concent 34.2 G/DL (32.0-36.0) Red Cell Distribution Width 14.8 % (11.6-14.8) Platelet Count 302 K/UL (150-450) Mean Platelet Volume 4.4 FL (6.5-10.1) L Neutrophils (%) (Auto) 67.1 % (45.0-75.0) Lymphocytes (%) (Auto) 14.6 % (20.0-45.0) L Monocytes (%) (Auto) 10.5 % (1.0-10.0) H Eosinophils (%) (Auto) 6.5 % (0.0-3.0) H Basophils (%) (Auto) 1.3 % (0.0-2.0) Sodium Level 145 MMOL/L (136-145) Potassium Level 3.5 MMOL/L (3.5-5.1) Chloride Level 106 MMOL/L (98-107) Carbon Dioxide Level 32 MMOL/L (21-32) Anion Gap 7 mmol/L (5-15) Blood Urea Nitrogen 21 mg/dL (7-18) H Creatinine 1.8 MG/DL (0.55-1.30) H Estimat Glomerular Filtration Rate 45.2 mL/min (>60) Glucose Level 116 MG/DL (74-106) H Calcium Level 8.8 MG/DL (8.5-10.1) Arterial Blood pH 7.399 (7.350-7.450) Arterial Blood Partial Pressure CO2 57.8 mmHg (35.0-45.0) *H Arterial Blood Partial Pressure O2 88.3 mmHg (75.0-100.0) Arterial Blood HCO3 34.9 mmol/L (22.0-26.0) H Arterial Blood Oxygen Saturation 96.2 % (95-100) Arterial Blood Base Excess 8.8 (-2-2) H Antonio Test Positive Current Medications Medications (Trade) Dose Ordered Sig/[place] Route PRN Reason Start Time Stop Time Status Last Admin Dose Admin Acetaminophen (Tylenol) 650 mg Q6H PRN ORAL Mild Pain/Temp > 100.5 04/24/19 11:00 05/24/19 10:59 04/25/19 03:37 Acetylcysteine (Mucomyst) 200 mg Q4HRT HHN 04/18/19 11:00 05/18/19 10:59 04/25/19 07:24 Albuterol/ Ipratropium (Albuterol/ Ipratropium) 3 ml Q4HRT HHN 04/23/19 15:00 04/28/19 14:59 04/25/19 07:24 Cefepime HCl 1 gm/ Dextrose 55 ml @ 110 mls/hr Q24H IVPB 04/21/19 12:00 04/28/19 11:59 04/24/19 12:14 Dextrose 1,000 ml @ 50 mls/hr Q20H IV 04/24/19 07:30 05/24/19 07:29 04/25/19 03:37 Enoxaparin Sodium (Lovenox) 40 mg DAILY SUBQ 04/25/19 09:00 05/25/19 08:59 04/25/19 08:45 Furosemide 100 mg/ Dextrose 100 ml @ 10 mls/hr Q10H IV 04/23/19 14:00 05/23/19 13:59 04/25/19 06:45 Hydralazine HCl (Apresoline) 10 mg Q4H PRN IV SBP > 170mmHg 04/13/19 15:00 05/08/19 14:59 Lansoprazole (Prevacid) 30 mg DAILY ORAL 04/14/19 09:00 05/13/19 08:59 04/25/19 08:44 Memantine (Namenda) 5 mg BID ORAL 04/13/19 18:00 05/04/19 17:59 04/25/19 08:44 Norepinephrine Bitartrate 4 mg/ Dextrose 250 ml @ 0 mls/hr Q24H IV 04/13/19 17:00 05/13/19 16:59 04/14/19 22:57 Tamsulosin HCl (Flomax) 0.4 mg BEDTIME ORAL 04/13/19 21:00 05/13/19 20:59 04/24/19 20:36 Tramadol HCl (Ultram) 50 mg EVERY 8 HOURS PRN NG Moderate Pain (Pain Scale 4-6) 04/25/19 06:30 05/02/19 06:29 Junior Morocho MD Apr 25, 2019 10:34
[2019-04-25] MEDS: Cefepime HCl 1 GM in D5W 55 ML IVPB SCH (11:31)
--- NOTE | 2019-04-25 11:40 | NUR ---
NURSE NOTES: Cleaned pt for small amount of 1 brown soft BM. Repositioned pt. Continued bilateral soft wrist restraints since pt is trying to remove Bi-pap.
--- NOTE | 2019-04-25 12:23 | NUR ---
NURSE NOTES: Dr Mathews here to see the patient. Notified him regarding ABG result. He ordered to put N/C back on the patient since pH is normal. Notified RT.
--- NOTE | 2019-04-25 12:35 | Surgery Progress Note ---
Surgery Progress Note Subjective Procedure Performed right femoral central venous catheter insertion Additional Comments doing well on lasix gtt no n/v/f/c comfortable no complaints on bipap Objective Last 24 Hour Vital Signs Date Time Temp Pulse Resp B/P (MAP) Pulse Ox O2 Delivery O2 Flow Rate FiO2 04/25/19 12:29 108 22 100 04/25/19 12:24 2.0 04/25/19 12:00 Nasal Cannula 2.0 04/25/19 12:00 98.1 107 21 97/65 (76) 100 04/25/19 11:51 110 04/25/19 11:30 101 21 100 Bi-Pap 30 100 19 100 04/25/19 11:30 100 27 100 30 04/25/19 11:00 101 18 107/73 (84) 100 04/25/19 10:03 102 18 104/72 (83) 98 04/25/19 09:43 98 19 100 30 04/25/19 09:40 30 04/25/19 09:00 108 27 104/67 (79) 98 04/25/19 08:00 Nasal Cannula 2.0 04/25/19 08:00 108 04/25/19 08:00 2.0 04/25/19 08:00 97.8 105 24 99/71 (80) 100 04/25/19 07:40 104 21 100 Nasal Cannula 2.0 28 108 24 100 04/25/19 07:24 100 Nasal Cannula 2.0 28 04/25/19 07:00 106 21 102/67 (79) 100 04/25/19 06:00 108 25 112/66 (81) 99 04/25/19 05:00 112 23 103/66 (78) 99 04/25/19 04:53 100 04/25/19 04:00 Nasal Cannula 2.0 04/25/19 04:00 2.0 04/25/19 04:00 97.9 113 29 103/69 (80) 100 04/25/19 03:16 107 04/25/19 03:08 112 20 100 Nasal Cannula 2.0 28 110 20 100 04/25/19 03:07 100 04/25/19 03:00 112 26 105/69 (81) 100 04/25/19 02:00 111 24 106/67 (80) 100 04/25/19 01:00 120 29 103/76 (85) 98 04/25/19 00:53 99 04/25/19 00:00 97.9 114 27 114/69 (84) 100 04/25/19 00:00 Nasal Cannula 2.0 04/25/19 00:00 2.0 04/24/19 23:04 109 04/24/19 23:00 106 24 93/69 (77) 100 04/24/19 22:45 118 24 98 Bi-Pap 30 117 20 100 30 04/24/19 22:40 30 04/24/19 22:00 108 23 113/70 (84) 100 04/24/19 21:00 115 29 108/72 (84) 99 04/24/19 20:00 Nasal Cannula 2.0 04/24/19 20:00 2.0 04/24/19 20:00 98.6 111 25 103/71 (82) 100 04/24/19 19:16 113 04/24/19 19:00 112 22 118/71 (87) 100 04/24/19 18:56 115 22 100 Nasal Cannula 2.0 28 112 22 100 04/24/19 18:49 100 Nasal Cannula 2.0 28 04/24/19 18:00 112 24 113/73 (86) 99 04/24/19 17:00 98.8 112 27 102/71 (81) 98 04/24/19 16:00 113 27 111/72 (85) 99 04/24/19 16:00 Bi-pap 04/24/19 16:00 2.0 04/24/19 15:29 109 04/24/19 15:00 107 22 108/76 (87) 100 04/24/19 14:58 108 24 100 Nasal Cannula 2.0 28 107 23 100 04/24/19 14:00 115 21 105/72 (83) 98 04/24/19 13:00 109 24 113/71 (85) 99 04/24/19 13:00 113 22 113/71 (85) 100 I&O Intake and Output 04/24/19 04/25/19 18:59 06:59 Intake Total 1380 ml 1400 ml Output Total 2175 ml 1865 ml Balance -795 ml -465 ml IV Total 775 ml 720 ml Tube Feeding 605 ml 590 ml Other 90 ml Output Urine Total 2175 ml 1865 ml # Bowel Movements 1 Dressing: other Wound: other Drains: other Cardiovascular: RSR Respiratory: decreased breath sounds Abdomen: soft, present bowel sounds Extremities: no cyanosis Laboratory Tests Test 04/25/19 06:31 04/25/19 09:20 White Blood Count 5.3 K/UL (4.8-10.8) Red Blood Count 3.16 M/UL (4.70-6.10) L Hemoglobin 9.2 G/DL (14.2-18.0) L Hematocrit 26.9 % (42.0-52.0) L Mean Corpuscular Volume 85 FL (80-99) Mean Corpuscular Hemoglobin 29.2 PG (27.0-31.0) Mean Corpuscular Hemoglobin Concent 34.2 G/DL (32.0-36.0) Red Cell Distribution Width 14.8 % (11.6-14.8) Platelet Count 302 K/UL (150-450) Mean Platelet Volume 4.4 FL (6.5-10.1) L Neutrophils (%) (Auto) 67.1 % (45.0-75.0) Lymphocytes (%) (Auto) 14.6 % (20.0-45.0) L Monocytes (%) (Auto) 10.5 % (1.0-10.0) H Eosinophils (%) (Auto) 6.5 % (0.0-3.0) H Basophils (%) (Auto) 1.3 % (0.0-2.0) Sodium Level 145 MMOL/L (136-145) Potassium Level 3.5 MMOL/L (3.5-5.1) Chloride Level 106 MMOL/L (98-107) Carbon Dioxide Level 32 MMOL/L (21-32) Anion Gap 7 mmol/L (5-15) Blood Urea Nitrogen 21 mg/dL (7-18) H Creatinine 1.8 MG/DL (0.55-1.30) H Estimat Glomerular Filtration Rate 45.2 mL/min (>60) Glucose Level 116 MG/DL (74-106) H Calcium Level 8.8 MG/DL (8.5-10.1) Arterial Blood pH 7.399 (7.350-7.450) Arterial Blood Partial Pressure CO2 57.8 mmHg (35.0-45.0) *H Arterial Blood Partial Pressure O2 88.3 mmHg (75.0-100.0) Arterial Blood HCO3 34.9 mmol/L (22.0-26.0) H Arterial Blood Oxygen Saturation 96.2 % (95-100) Arterial Blood Base Excess 8.8 (-2-2) H Antonio Test Positive Plan Problems: (1) Cardiac arrest Assessment & Plan: Acute deterioration Cardiovascular lopez ACLS required for resuscitation Still full code Hypotensive intensive care unit requiring a new central venous catheter see note Antibiotics as per infectious caries cont current treatment improving trend labs diet as tolerated improving on bipap may require intubation if so will recommend trach will follow with fermin cont tube feeds lasix gtt family does not want thora thank you (2) Stage III adenocarcinoma of prostate Assessment & Plan: patient with state 3 prostate cancer pending treatment at [facility] unlikely related to acute cardiac arrest this am abd exam with mild distention no acute surgical intervention planned onc input improving extubated diet as tolerated thank you will follow with Jay Conrad Apr 25, 2019 12:35
--- NOTE | 2019-04-25 12:58 | Pulmonology Progress Note ---
Assessment/Plan Assessment/Plan IMPRESSION: 1. Status post asystolic cardiac arrest. Again on 04/13/19 2. Respiratory failure, re-intubated; and now extubated 04/20/19 3. Altered mental status. Resolved 4. Hypernatremia. Corrected. 5. Hypokalemia . Corrected. 6. History of COPD. 7. Prostate CA. DISCUSSION: 1. Off BiPAP 2. Needs PEG 3. Doing well post extubation 5. Dc diuretics 6. Transfused CXR looking better; Needs PEG; would not advise PO diet again No longer on BiPAP has large left pleural effusion, family refuses thoracentesis. Will continue increased diuresis Ganesh Mathews M.D. Subjective Interval Events: Comfortaable; off BiPAP Constitutional: Reports: no symptoms HEENT: Repors: no symptoms Respiratory: Reports: no symptoms Cardiovascular: Reports: no symptoms Gastrointestinal/Abdominal: Reports: no symptoms Genitourinary: Reports: no symptoms Allergies: Coded Allergies: No Known Allergies (Unverified , 04/03/19) Objective Last 24 Hour Vital Signs Date Time Temp Pulse Resp B/P (MAP) Pulse Ox O2 Delivery O2 Flow Rate FiO2 04/25/19 12:29 108 22 100 04/25/19 12:24 2.0 04/25/19 12:00 Nasal Cannula 2.0 04/25/19 12:00 98.1 107 21 97/65 (76) 100 04/25/19 11:51 110 04/25/19 11:30 101 21 100 Bi-Pap 30 100 19 100 04/25/19 11:30 100 27 100 30 04/25/19 11:00 101 18 107/73 (84) 100 04/25/19 10:03 102 18 104/72 (83) 98 04/25/19 09:43 98 19 100 30 04/25/19 09:40 30 04/25/19 09:00 108 27 104/67 (79) 98 04/25/19 08:00 Nasal Cannula 2.0 04/25/19 08:00 108 04/25/19 08:00 2.0 04/25/19 08:00 97.8 105 24 99/71 (80) 100 04/25/19 07:40 104 21 100 Nasal Cannula 2.0 28 108 24 100 04/25/19 07:24 100 Nasal Cannula 2.0 28 04/25/19 07:00 106 21 102/67 (79) 100 04/25/19 06:00 108 25 112/66 (81) 99 04/25/19 05:00 112 23 103/66 (78) 99 04/25/19 04:53 100 04/25/19 04:00 Nasal Cannula 2.0 04/25/19 04:00 2.0 04/25/19 04:00 97.9 113 29 103/69 (80) 100 04/25/19 03:16 107 04/25/19 03:08 112 20 100 Nasal Cannula 2.0 28 110 20 100 04/25/19 03:07 100 04/25/19 03:00 112 26 105/69 (81) 100 04/25/19 02:00 111 24 106/67 (80) 100 04/25/19 01:00 120 29 103/76 (85) 98 04/25/19 00:53 99 04/25/19 00:00 97.9 114 27 114/69 (84) 100 04/25/19 00:00 Nasal Cannula 2.0 04/25/19 00:00 2.0 04/24/19 23:04 109 04/24/19 23:00 106 24 93/69 (77) 100 04/24/19 22:45 118 24 98 Bi-Pap 30 117 20 100 30 04/24/19 22:40 30 04/24/19 22:00 108 23 113/70 (84) 100 04/24/19 21:00 115 29 108/72 (84) 99 04/24/19 20:00 Nasal Cannula 2.0 04/24/19 20:00 2.0 04/24/19 20:00 98.6 111 25 103/71 (82) 100 04/24/19 19:16 113 04/24/19 19:00 112 22 118/71 (87) 100 04/24/19 18:56 115 22 100 Nasal Cannula 2.0 28 112 22 100 04/24/19 18:49 100 Nasal Cannula 2.0 28 04/24/19 18:00 112 24 113/73 (86) 99 2/21/20 17:00 98.8 112 27 102/71 (81) 98 04/24/19 16:00 113 27 111/72 (85) 99 04/24/19 16:00 Bi-pap 04/24/19 16:00 2.0 04/24/19 15:29 109 04/24/19 15:00 107 22 108/76 (87) 100 04/24/19 14:58 108 24 100 Nasal Cannula 2.0 28 107 23 100 04/24/19 14:00 115 21 105/72 (83) 98 04/24/19 13:00 109 24 113/71 (85) 99 04/24/19 13:00 113 22 113/71 (85) 100 Intake and Output 04/24/19 04/25/19 19:00 07:00 Intake Total 1430 ml 1400 ml Output Total 2300 ml 1770 ml Balance -870 ml -370 ml IV Total 825 ml 720 ml Tube Feeding 605 ml 590 ml Other 90 ml Output Urine Total 2300 ml 1770 ml # Bowel Movements 1 General Appearance: no acute distress HEENT: normocephalic Respiratory/Chest: chest wall non-tender, lungs clear Cardiovascular: normal peripheral pulses, normal rate Abdomen: normal bowel sounds Laboratory Tests 04/25/19 06:31: White Blood Count 5.3, Red Blood Count 3.16L, Hemoglobin 9.2L, Hematocrit 26.9L , Mean Corpuscular Volume 85, Mean Corpuscular Hemoglobin 29.2, Mean Corpuscular Hemoglobin Concent 34.2, Red Cell Distribution Width 14.8, Platelet Count 302, Mean Platelet Volume 4.4L, Neutrophils (%) (Auto) 67.1, Lymphocytes ( %) (Auto) 14.6L, Monocytes (%) (Auto) 10.5H, Eosinophils (%) (Auto) 6.5H, Basophils (%) (Auto) 1.3, Sodium Level 145, Potassium Level 3.5, Chloride Level 106, Carbon Dioxide Level 32, Anion Gap 7, Blood Urea Nitrogen 21H, Creatinine 1.8H, Estimat Glomerular Filtration Rate 45.2, Glucose Level 116H, Calcium Level 8.8 04/25/19 09:20: Arterial Blood pH 7.399, Arterial Blood Partial Pressure CO2 57.8*H, Arterial Blood Partial Pressure O2 88.3, Arterial Blood HCO3 34.9H, Arterial Blood Oxygen Saturation 96.2, Arterial Blood Base Excess 8.8H, Antonio Test Positive Current Medications Medications (Trade) Dose Ordered Sig/[place] Route PRN Reason Start Time Stop Time Status Last Admin Dose Admin Acetaminophen (Tylenol) 650 mg Q6H PRN ORAL Mild Pain/Temp > 100.5 04/24/19 11:00 05/24/19 10:59 04/25/19 03:37 Acetylcysteine (Mucomyst) 200 mg Q4HRT N 04/18/19 11:00 05/18/19 10:59 04/25/19 11:15 Albuterol/ Ipratropium (Albuterol/ Ipratropium) 3 ml Q4HRT N 04/23/19 15:00 04/28/19 14:59 04/25/19 11:15 Cefepime HCl 1 gm/ Dextrose 55 ml @ 110 mls/hr Q24H IVPB 04/21/19 12:00 04/28/19 11:59 04/25/19 11:31 Dextrose 1,000 ml @ 50 mls/hr Q20H IV 04/24/19 07:30 05/24/19 07:29 04/25/19 03:37 Enoxaparin Sodium (Lovenox) 40 mg DAILY SUBQ 04/25/19 09:00 05/25/19 08:59 04/25/19 08:45 Furosemide 100 mg/ Dextrose 100 ml @ 10 mls/hr Q10H IV 04/23/19 14:00 05/23/19 13:59 04/25/19 06:45 Hydralazine HCl (Apresoline) 10 mg Q4H PRN IV SBP > 170mmHg 04/13/19 15:00 05/08/19 14:59 Lansoprazole (Prevacid) 30 mg DAILY ORAL 04/14/19 09:00 05/13/19 08:59 04/25/19 08:44 Memantine (Namenda) 5 mg BID ORAL 04/13/19 18:00 05/04/19 17:59 04/25/19 08:44 Norepinephrine Bitartrate 4 mg/ Dextrose 250 ml @ 0 mls/hr Q24H IV 04/13/19 17:00 05/13/19 16:59 04/14/19 22:57 Tamsulosin HCl (Flomax) 0.4 mg BEDTIME ORAL 04/13/19 21:00 05/13/19 20:59 04/24/19 20:36 Tramadol HCl (Ultram) 50 mg EVERY 8 HOURS PRN NG Moderate Pain (Pain Scale 4-6) 04/25/19 06:30 05/02/19 06:29 Ganesh Mathews MD Apr 25, 2019 12:58
--- NOTE | 2019-04-25 13:15 | Cardiac Electrophysiology PN ---
Assessment/Plan Assessment/Plan 1. Status post 2 separate non infarctional juan antonio arrest with asystole. Both episodes happened in the setting of respiratory failure and off the Vent No evidence of ventricular tachycardia or ventricular fibrillation. Off any GARCÍA or AVN olivia EF 65%. All 3 troponins were less than 0.1. Watch for recurrence of bradycardia 2. Recurrent Respiratory failure, extubated 04/08/19, reintubated 04/13/19 and reextubated 04/19/19 3. History of stage III prostate cancer, followed by Dr. Monroy and Dr Root. Morales was changed. Follows up at [facility] 4. Shock. Off Levophed on iv Abx. 5. Hypercalcemia due to prostate cancer. 6. Hypernatremia. 7. Anemia, s/p PRBC 04/08/19. Hb 7 again. S/P1 unit PRBC 8. Low K. Replace 9. Dysphagia, PEG by Dr Lamb on Saturday 10. Pleural effusion, on Lasix drip as family refused thoracentesis MIKE RN and Dr Mathews and Family at bedside Subjective Subjective In ICU on 2liter Nasal Cannula. No juan antonio yet. NGT feeding. On Lasix drip per Dr Mathews as family refusing thoracentesis Family wants to transfer to [facility] Objective Last 24 Hour Vital Signs Date Time Temp Pulse Resp B/P (MAP) Pulse Ox O2 Delivery O2 Flow Rate FiO2 04/25/19 12:29 108 22 100 04/25/19 12:24 2.0 04/25/19 12:00 Nasal Cannula 2.0 04/25/19 12:00 98.1 107 21 97/65 (76) 100 04/25/19 11:51 110 04/25/19 11:30 101 21 100 Bi-Pap 30 100 19 100 04/25/19 11:30 100 27 100 30 04/25/19 11:00 101 18 107/73 (84) 100 04/25/19 10:03 102 18 104/72 (83) 98 04/25/19 09:43 98 19 100 30 04/25/19 09:40 30 04/25/19 09:00 108 27 104/67 (79) 98 04/25/19 08:00 Nasal Cannula 2.0 04/25/19 08:00 108 04/25/19 08:00 2.0 04/25/19 08:00 97.8 105 24 99/71 (80) 100 04/25/19 07:40 104 21 100 Nasal Cannula 2.0 28 108 24 100 04/25/19 07:24 100 Nasal Cannula 2.0 28 04/25/19 07:00 106 21 102/67 (79) 100 04/25/19 06:00 108 25 112/66 (81) 99 04/25/19 05:00 112 23 103/66 (78) 99 04/25/19 04:53 100 04/25/19 04:00 Nasal Cannula 2.0 04/25/19 04:00 2.0 04/25/19 04:00 97.9 113 29 103/69 (80) 100 04/25/19 03:16 107 04/25/19 03:08 112 20 100 Nasal Cannula 2.0 28 110 20 100 04/25/19 03:07 100 04/25/19 03:00 112 26 105/69 (81) 100 04/25/19 02:00 111 24 106/67 (80) 100 04/25/19 01:00 120 29 103/76 (85) 98 04/25/19 00:53 99 04/25/19 00:00 97.9 114 27 114/69 (84) 100 04/25/19 00:00 Nasal Cannula 2.0 04/25/19 00:00 2.0 04/24/19 23:04 109 04/24/19 23:00 106 24 93/69 (77) 100 04/24/19 22:45 118 24 98 Bi-Pap 30 117 20 100 30 04/24/19 22:40 30 04/24/19 22:00 108 23 113/70 (84) 100 04/24/19 21:00 115 29 108/72 (84) 99 04/24/19 20:00 Nasal Cannula 2.0 04/24/19 20:00 2.0 04/24/19 20:00 98.6 111 25 103/71 (82) 100 04/24/19 19:16 113 04/24/19 19:00 112 22 118/71 (87) 100 04/24/19 18:56 115 22 100 Nasal Cannula 2.0 28 112 22 100 04/24/19 18:49 100 Nasal Cannula 2.0 28 04/24/19 18:00 112 24 113/73 (86) 99 04/24/19 17:00 98.8 112 27 102/71 (81) 98 04/24/19 16:00 113 27 111/72 (85) 99 04/24/19 16:00 Bi-pap 04/24/19 16:00 2.0 04/24/19 15:29 109 04/24/19 15:00 107 22 108/76 (87) 100 04/24/19 14:58 108 24 100 Nasal Cannula 2.0 28 107 23 100 04/24/19 14:00 115 21 105/72 (83) 98 Intake and Output 04/24/19 04/25/19 19:00 07:00 Intake Total 1430 ml 1400 ml Output Total 2300 ml 1770 ml Balance -870 ml -370 ml IV Total 825 ml 720 ml Tube Feeding 605 ml 590 ml Other 90 ml Output Urine Total 2300 ml 1770 ml # Bowel Movements 1 Laboratory Tests Test 04/25/19 06:31 04/25/19 09:20 White Blood Count 5.3 K/UL (4.8-10.8) Red Blood Count 3.16 M/UL (4.70-6.10) L Hemoglobin 9.2 G/DL (14.2-18.0) L Hematocrit 26.9 % (42.0-52.0) L Mean Corpuscular Volume 85 FL (80-99) Mean Corpuscular Hemoglobin 29.2 PG (27.0-31.0) Mean Corpuscular Hemoglobin Concent 34.2 G/DL (32.0-36.0) Red Cell Distribution Width 14.8 % (11.6-14.8) Platelet Count 302 K/UL (150-450) Mean Platelet Volume 4.4 FL (6.5-10.1) L Neutrophils (%) (Auto) 67.1 % (45.0-75.0) Lymphocytes (%) (Auto) 14.6 % (20.0-45.0) L Monocytes (%) (Auto) 10.5 % (1.0-10.0) H Eosinophils (%) (Auto) 6.5 % (0.0-3.0) H Basophils (%) (Auto) 1.3 % (0.0-2.0) Sodium Level 145 MMOL/L (136-145) Potassium Level 3.5 MMOL/L (3.5-5.1) Chloride Level 106 MMOL/L (98-107) Carbon Dioxide Level 32 MMOL/L (21-32) Anion Gap 7 mmol/L (5-15) Blood Urea Nitrogen 21 mg/dL (7-18) H Creatinine 1.8 MG/DL (0.55-1.30) H Estimat Glomerular Filtration Rate 45.2 mL/min (>60) Glucose Level 116 MG/DL (74-106) H Calcium Level 8.8 MG/DL (8.5-10.1) Arterial Blood pH 7.399 (7.350-7.450) Arterial Blood Partial Pressure CO2 57.8 mmHg (35.0-45.0) *H Arterial Blood Partial Pressure O2 88.3 mmHg (75.0-100.0) Arterial Blood HCO3 34.9 mmol/L (22.0-26.0) H Arterial Blood Oxygen Saturation 96.2 % (95-100) Arterial Blood Base Excess 8.8 (-2-2) H Antonio Test Positive Objective HEENT: No JVD. NGT is on LUNGS: Coarse rhonchi. CARDIOVASCULAR: Regular S1 and S2 ABDOMEN: Soft and nondistended. EXTREMITIES: No pitting edema. Nain Cortez MD Apr 25, 2019 13:15
--- NOTE | 2019-04-25 14:35 | NUR ---
NURSE NOTES: Notified Dr Sawyer Toussaint regarding family's request to transfer him to [facility] [place]. Order for case management with DC planning for transfer received and noted. Family refused PEG placement. Cleaned pt for another small soft brown BM.
[2019-04-25] MEDS ORDERED: NS 275ml ONE ×2 (15:06→16:09)
[2019-04-25] MEDS ORDERED: Sterile Water Irrig 1000ml IRRIG ONE (16:09)
[2019-04-25] MEDS ORDERED: Tubing IV Secondary IV ONE (16:09)
--- NOTE | 2019-04-25 17:00 | NUR ---
NURSE NOTES: Pulled up and repositioned pt. Pt refused pillow under legs. Pt is able to move legs around. Pt is tolerating tube feeding. Pt denies pain or discomfort at this time.
--- NOTE | 2019-04-25 19:20 | NUR ---
HAND-OFF: Report given to BLANCA Beverly.
--- NOTE | 2019-04-25 19:45 | Progress Note ---
DATE: 04/25/2019 SUBJECTIVE: This is a 73-year-old male patient. This patient is seen in the ICU unit. He has many medical problems including anemia, urinary tract infection, dehydration, generalized weakness, coffee-grounds emesis, dehydration, stage III adenocarcinoma of the prostate. He is also status post myocardial infarction and this is causing him to have decline in cognition below his baseline and altered mental status. MENTAL STATUS EXAMINATION: This is a 73-year-old male. Appearance is disheveled. Attitude, irritable and agitated. Affect, guarded and restricted. Intellect poor. Mood, depressed and anxious. Motor activity, psychomotor agitation. Attention span is poor. Orientation x2. Speech is pressured. Thought process, disorganized and illogical. Insight and judgment is poor. DIAGNOSIS: Major depressive disorder, mild, recurrent with psychotic features. PLAN: My plan for this patient is to treat him with a medication regimen consisting of Namenda 5 mg twice a day to prevent any further decline in his cognition and 20 minutes of insight-oriented psychotherapy to help this patient's condition and also Ativan 1 mg IV every 6 hours p.r.n. anxiety and agitation behavior. Also, 20 minutes of insight-oriented psychotherapy to help this patient have understanding of his illness and better behavior on the unit and more impulse control. Chart reviewed. Discussed with staff. Seen and assessed at the bedside. Cherise Palma M.D. DR: ZORAIDA JOB#: [id number] CC:
--- NOTE | 2019-04-25 20:00 | NUR ---
NURSE NOTES: Patient is awake, alert and oriented x3. On 2L nasal cannula O2 saturating at 100%. ROM performed, remains on [employer] restraints for safety; patient is also seen trying to pull out NGT. Skin assessed. Safety measures in place; bed low, locked and alarm is on. Will continue plan of care.
[2019-04-25] MEDS: Tamsulosin 0.4mg cap ORAL SCH (20:34)
--- NOTE | 2019-04-25 22:00 | NUR ---
NURSE NOTES: Bed bath given for BM. Linens changed, wound pictures taken and uploaded. Placed on BiPAP 18/5 30%. Turned and repositioned. Will continue to monitor.
[2019-04-26] VITALS (24 sets, daily range): BP systolic 99–128; BP diastolic 62–81
--- NOTE | 2019-04-26 | NUR ---
NURSE NOTES: Patient remains on BiPAP. No complaints of pain or distress. Sleeps intermittently. Will continue to monitor.
--- NOTE | 2019-04-26 02:00 | NUR ---
NURSE NOTES: Patient is seen trying to remove BiPAP and NGT. Re-orientation provided, turned and repositioned. Vital signs stable. Safety measures in place. Will continue to monitor.
--- NOTE | 2019-04-26 02:44 | NUR ---
NURSE NOTES: Patient was able to rip off the BiPAP mask. Keeps refusing the mask and is becoming aggressive and agitated. He is back on 2L nasal cannula for the time being to give him a break from the mask.
[2019-04-26] MEDS: Albuterol/Ipratropium 3ml neb HHN SCH ×6 (02:51→22:57)
[2019-04-26] MEDS: Acetylcysteine 20% Soln 4ml HHN SCH ×6 (02:51→22:57)
--- NOTE | 2019-04-26 05:00 | NUR ---
NURSE NOTES: Bed bath given, linens changed. Vital signs stable. Patient is comfortable. Will continue to monitor.
--- NOTE | 2019-04-26 06:00 | NUR ---
NURSE NOTES: Patient wants to keep the nasal cannula and keep refusing the BiPAP. O2: 99% and shows no signs of distress. Vital signs stable. Patient is comfortable.
[2019-04-26 06:11] LABS: EOSINOPHILS % (AUTO) 6.3 % (0.0-3.0); HEMATOCRIT 27.6 % (42.0-52.0); HEMOGLOBIN 9.3 G/DL (14.2-18.0); LYMPHOCYTES % (AUTO) 15.8 % (20.0-45.0); MEAN CORPUSCULAR VOLUME 84 FL (80-99); MONOCYTES % (AUTO) 12.5 % (1.0-10.0); NEUTROPHILS % (AUTO) 64.4 % (45.0-75.0); PLATELET COUNT 302 K/UL (150-450); RED BLOOD COUNT 3.27 M/UL (4.70-6.10); RED CELL DISTRIBUTION WIDTH 14.5 % (11.6-14.8); WHITE BLOOD COUNT 7.3 K/UL (4.8-10.8)
--- NOTE | 2019-04-26 07:09 | General Progress Note ---
Assessment/Plan Status: unchanged Assessment/Plan: Assessment/Plan Problems: (1) Coffee ground emesis (2) Anemia (3) metastatic prostate CA (4) respiratory failure extubated in the ICU NGTF ppi PEG on hold given patient tachycardia and tachypnea will fu Subjective ROS Limited/Unobtainable: No Allergies: Coded Allergies: No Known Allergies (Unverified , 04/03/19) Objective Last 24 Hour Vital Signs Date Time Temp Pulse Resp B/P (MAP) Pulse Ox O2 Delivery O2 Flow Rate FiO2 04/26/19 06:00 119 25 105/68 (80) 100 04/26/19 05:10 110 20 100 04/26/19 05:00 116 32 105/72 (83) 100 04/26/19 04:00 2.0 04/26/19 04:00 Bi-pap 04/26/19 04:00 99.0 115 31 107/66 (80) 97 04/26/19 03:56 115 04/26/19 03:00 123 29 127/78 (94) 100 04/26/19 02:55 118 18 96 04/26/19 02:51 120 18 100 Nasal Cannula 2.0 28 118 18 96 04/26/19 02:00 116 23 112/72 (85) 94 04/26/19 01:00 114 28 120/81 (94) 97 04/26/19 00:53 113 24 100 30 04/26/19 00:00 Bi-pap 04/26/19 00:00 98.5 105 22 101/64 (76) 95 04/25/19 23:30 108 04/25/19 23:00 113 26 113/74 (87) 100 04/25/19 22:49 112 18 95 Bi-Pap 30 115 21 100 30 04/25/19 22:00 116 29 118/80 (93) 100 04/25/19 21:00 115 27 109/70 (83) 100 04/25/19 20:00 2.0 04/25/19 20:00 Nasal Cannula 2.0 04/25/19 20:00 98.3 108 25 94/65 (75) 99 04/25/19 19:26 118 04/25/19 19:00 118 26 108/68 (81) 97 04/25/19 18:38 111 19 100 04/25/19 18:38 113 19 100 Nasal Cannula 2.0 28 111 19 100 04/25/19 18:37 99 Nasal Cannula 2.0 28 04/25/19 18:00 115 27 114/74 (87) 99 04/25/19 17:00 117 26 123/75 (91) 98 04/25/19 16:00 Nasal Cannula 2.0 04/25/19 16:00 98.0 109 24 108/63 (78) 100 04/25/19 15:23 110 04/25/19 15:00 107 26 100/60 (73) 99 04/25/19 14:20 111 25 100 Bi-Pap 30 110 24 100 04/25/19 14:00 111 28 114/71 (85) 99 04/25/19 13:00 111 26 111/68 (82) 99 04/25/19 12:29 108 22 100 04/25/19 12:24 2.0 04/25/19 12:00 Nasal Cannula 2.0 04/25/19 12:00 98.1 107 21 97/65 (76) 100 04/25/19 11:51 110 04/25/19 11:30 101 21 100 Bi-Pap 30 100 19 100 04/25/19 11:30 100 27 100 30 04/25/19 11:00 101 18 107/73 (84) 100 04/25/19 10:03 102 18 104/72 (83) 98 04/25/19 09:43 98 19 100 30 04/25/19 09:40 30 04/25/19 09:00 108 27 104/67 (79) 98 04/25/19 08:00 Nasal Cannula 2.0 04/25/19 08:00 108 04/25/19 08:00 2.0 04/25/19 08:00 97.8 105 24 99/71 (80) 100 04/25/19 07:40 104 21 100 Nasal Cannula 2.0 28 108 24 100 04/25/19 07:24 100 Nasal Cannula 2.0 28 Intake and Output 04/25/19 04/26/19 19:00 07:00 Intake Total 1585 ml 1166.50 ml Output Total 1980 ml 1420 ml Balance -395 ml -253.50 ml Free Water 50 ml IV Total 775 ml 561.50 ml Tube Feeding 660 ml 605 ml Other 100 ml Output Urine Total 1980 ml 1420 ml # Bowel Movements 4 4 Laboratory Tests 04/25/19 09:20: Arterial Blood pH 7.399, Arterial Blood Partial Pressure CO2 57.8*H, Arterial Blood Partial Pressure O2 88.3, Arterial Blood HCO3 34.9H, Arterial Blood Oxygen Saturation 96.2, Arterial Blood Base Excess 8.8H, Antonio Test Positive 04/26/19 05:15: White Blood Count 7.3, Red Blood Count 3.27L, Hemoglobin 9.3L, Hematocrit 27.6L , Mean Corpuscular Volume 84, Mean Corpuscular Hemoglobin 28.5, Mean Corpuscular Hemoglobin Concent 33.7, Red Cell Distribution Width 14.5, Platelet Count 302, Mean Platelet Volume 4.7L, Neutrophils (%) (Auto) 64.4, Lymphocytes ( %) (Auto) 15.8L, Monocytes (%) (Auto) 12.5H, Eosinophils (%) (Auto) 6.3H, Basophils (%) (Auto) 1.0, Sodium Level [Pending], Potassium Level [Pending], Chloride Level [Pending], Carbon Dioxide Level [Pending], Blood Urea Nitrogen [ Pending], Creatinine [Pending], Estimat Glomerular Filtration Rate [Pending], Glucose Level [Pending], Calcium Level [Pending] Height (Feet): 5 Height (Inches): 7.00 Weight (Pounds): 145 General Appearance: lethargic EENT: normal ENT inspection Neck: supple Cardiovascular: tachycardia Respiratory/Chest: decreased breath sounds Abdomen: normal bowel sounds, non tender, soft Extremities: non-tender Tyrone Lamb MD Apr 26, 2019 07:09
[2019-04-26 07:18] LABS: ANION GAP 4 mmol/L (5-15); BLOOD UREA NITROGEN 24 mg/dL (7-18); CALCIUM 8.4 MG/DL (8.5-10.1); CARBON DIOXIDE 36 MMOL/L (21-32); CHLORIDE 102 MMOL/L (98-107); CREATININE 1.7 MG/DL (0.55-1.30); POTASSIUM 3.1 MMOL/L (3.5-5.1); SODIUM 142 MMOL/L (136-145)
--- NOTE | 2019-04-26 08:11 | Diagnostic Imaging Report ---
EXAM: XR Chest, 1 View CLINICAL HISTORY: ABN CHST TECHNIQUE: Frontal view of the chest. COMPARISON: Chest x-rays dated 04/25/19 and 04/24/19 FINDINGS: Lungs: Unchanged appearance of pulmonary vascular congestion. Subsegmental atelectasis versus infiltrate in the medial left lung base, unchanged. Pleural space: No significant change in the veil-like opacity in the left lower lung likely representing a layering pleural effusion. Heart: Unremarkable. No cardiomegaly. Mediastinum: Unremarkable. Bones/joints: Unremarkable. Tubes, lines and devices: NG tube extends below the diaphragm and its tip is not visualized. Telemetry leads overlie the thorax. IMPRESSION: No significant interval change from the prior chest x-ray. Persistent layering left pleural effusion. Persistent pulmonary vascular congestion versus pulmonary edema.
--- NOTE | 2019-04-26 08:24 | NUR ---
HAND-OFF: Report given to BLANCA Goodson.
--- NOTE | 2019-04-26 08:25 | NUR ---
NURSE NOTES: Report received from BLANCA Beverly. Pt is awake and oriented x1-2. Confused and impulsive at times; maintained on bilateral soft wrist restraints for safety. 2L NC, O2Sat 96% with no respiratory distress noted. Sinus tachy [address] monitor. Left nare NGT in place receiving Vital AF 1.2 at 55mL/hr. Morales in place draining yellow urine to urometer. 2 PIV to left FA G20 patent and asymptomatic. Pt is on D5W at 50mL/hr and Lasix at 10mL/hr. Bed locked and in lowest position. Side rails up x3. Will resume plan of care.
--- NOTE | 2019-04-26 08:35 | NUR ---
RESPIRATORY NOTE: pt refusing ordered ABG. RN notified.
--- NOTE | 2019-04-26 08:37 | NUR ---
NURSE NOTES: RT reported that pt refused to have ABG drawn.
[2019-04-26] MEDS: Memantine 5 MG TAB ORAL SCH ×2 (08:42→17:34)
[2019-04-26] MEDS: Enoxaparin 40mg Inj SUBQ SCH (08:43)
--- NOTE | 2019-04-26 08:47 | Hematology/Onc Progress Note ---
Assessment/Plan Assessment/Plan # Prostate cancer stage IV with psa >700, cr is worse, hydronephrosis noted, seen by renal, Dr. White. --> i did received records from [facility]. has regional lymphadenopathy, s/p transrectal biopsy with Gleasons 5+5 (2010) in all cores, apparently has had a 3 year course of androgen deprivation from 2011- 2014.also status post RADIATION to the prostate, then lost to followup. Following surviellance psa 0.45-->65, in 10/2016, and up to 127 in 12/2016, Ct scan showed recurrence of disease with lad but no bony mets, started on lupron 01/2017, psa fell yo 73-->46, has been sarted on zytiga + prednisone, and now psa progression on zytiga, he started xtandi in 01/2019 Psa 87. He did not go through urethral stenting, he has deferred treatment with chemo. --> He is a very poor historian, I have talked to the sister --> imaging has been noted --> as per urology recs, reviewed --> have called , no answer, trans to [facility]? --> poor prognosis given above history of treatment, defer transfer to [facility] --> psa 737-->757 --> CT ABD 04/10: Evidence of advanced metastatic neoplasm likely secondary to prostate carcinoma. Extensive retroperitoneal and pelvic lymphadenopathy complicated by presence of bilateral hydroureteronephrosis. Extensive metastatic disease involving the bones also noted. Status post seed implant radiation therapy to the prostate gland. # Hypercalcemia -- now acutely worse --> trend Ca++ 8.1-->13-->12-->10.3-->10.7-->13.2 -->11-->10.5 --> ivf has been started --> as per nephrology --> calcitonin was given # Anemia due to underlying malignancy --> hgb trend as needed 9.2-->7-->10.9-->11-->9.7-->8.1-->8.6-->9.2 --> no hemolysis is noted --> no bleeding --> blood tx: 04/18, # Episode of generalized weakness --> on ivf --> pt as needed # Pleural effusion --> no consent for peg # Hypokalemia --> replete prn # Dehydration --> on ivf # Atrophic changes without evident intracranial hemorrhage. --> as per neuro, remains confused # Respiratory failure s/p vent now ext --> on bipap++ # Hypernatremia as well as low BUN --> on ivf # Poor prognosis # Dvt ppx lovenox sq Appreciate consultation and dW Rn Subjective Constitutional: Denies: no symptoms, chills, fever, malaise, weakness, other HEENT: Denies: no symptoms, eye pain, blurred vision, tearing, double vision, ear pain, ear discharge, nose pain, nose congestion, throat pain, throat swelling, mouth pain, mouth swelling, other Cardiovascular: Denies: no symptoms, chest pain, edema, irregular heart rate, lightheadedness, palpitations, syncope, other Respiratory: Denies: no symptoms, cough, shortness of breath, SOB with excertion, SOB at rest, sputum, wheezing, other Gastrointestinal/Abdominal: Denies: no symptoms, abdomen distended, abdominal pain, black stools, tarry stools, blood in stool, constipated, diarrhea, difficulty swallowing, nausea, poor appetite, poor fluid intake, rectal bleeding , vomiting, other Genitourinary: Denies: no symptoms, burning, discharge, frequency, flank pain, hematuria, incontinence, pain, urgency, other Neurologic/Psychiatric: Denies: no symptoms, anxiety, depressed, emotional problems, headache, numbness, paresthesia, pre-existing deficit, seizure, tingling, tremors, weakness, other Endocrine: Denies: no symptoms, excessive sweating, flushing, intolerance to cold, intolerance to heat, increased hunger, increased thirst, increased urine, unexplained weight gain, unexplained weight loss, other Allergies: Coded Allergies: No Known Allergies (Unverified , 04/03/19) Subjective 23: no events, apparently intubated today and transferred to the icu, will dw family 2: remains in the icu, critically ill, Ca++ 12, on vent, minimally responsive , on dopa, dw pcp and pulm 04/08: no major changes, no night sweats, labs have been reviewed, dw daughter, he is more alert 04/10: awake, no acute events ct abd reviewed, stool ob negative 2/9: labs reviewed, nc, tachy, ceftriaxone, no sob 04/13: lethargic, nc 3l, no acute distress, labs reviewed 04/14: Ca++ remains elev 13.2, De Amy aware, on calcitonin, on lovenox 04/15: no major changes, remains intubated, seen by cards, renal, pulm, dw Kellie, kcl ordered 04/16: tolerating meds well, no bleeding, on vent, is on simv mode, nicholas Pacheco Rn 04/17: icu, vent, h/h stable, no acute events, on cefepime 04/19: remains in icu and intubated, s/p blood, hgb 8.6, c diff negative 04/20: on bipap, hgb 8.6, no major changes, in icu, requires peg 04/21: urine is red tinged this am, of vent, with nc, no bleeding, labs noted 04/22: no major changes, no bleeding r chils, no consent for procedures 04/23: icu, failed to wean from bipap, h/h stable 04/24: no events, feeling better, dw uro, with guerra, labs noted, no bleeding 04/26: no bleeding, no f/c, no major changes, anemia panel noted Objective Objective Current Medications Medications (Trade) Dose Ordered Sig/La Nena Route PRN Reason Start Time Stop Time Status Last Admin Dose Admin Acetaminophen (Tylenol) 650 mg Q6H PRN ORAL Mild Pain/Temp > 100.5 04/24/19 11:00 05/24/19 10:59 04/25/19 03:37 Acetylcysteine (Mucomyst) 200 mg Q4HRT [facility] 04/18/19 11:00 05/18/19 10:59 04/26/19 07:10 Albuterol/ Ipratropium (Albuterol/ Ipratropium) 3 ml Q4HRT N 04/23/19 15:00 04/28/19 14:59 04/26/19 07:10 Cefepime HCl 1 gm/ Dextrose 55 ml @ 110 mls/hr Q24H IVPB 04/21/19 12:00 04/28/19 11:59 04/25/19 11:31 Dextrose 1,000 ml @ 50 mls/hr Q20H IV 04/24/19 07:30 05/24/19 07:29 04/25/19 23:37 Enoxaparin Sodium (Lovenox) 40 mg DAILY SUBQ 04/25/19 09:00 05/25/19 08:59 04/26/19 08:43 Furosemide 100 mg/ Dextrose 100 ml @ 10 mls/hr Q10H IV 04/23/19 14:00 05/23/19 13:59 04/26/19 01:46 Hydralazine HCl (Apresoline) 10 mg Q4H PRN IV SBP > 170mmHg 04/13/19 15:00 05/08/19 14:59 Lansoprazole (Prevacid) 30 mg DAILY ORAL 04/14/19 09:00 05/13/19 08:59 04/26/19 08:42 Memantine (Namenda) 5 mg BID ORAL 04/13/19 18:00 05/04/19 17:59 04/26/19 08:42 Norepinephrine Bitartrate 4 mg/ Dextrose 250 ml @ 0 mls/hr Q24H IV 04/13/19 17:00 05/13/19 16:59 04/14/19 22:57 Tamsulosin HCl (Flomax) 0.4 mg BEDTIME ORAL 04/13/19 21:00 05/13/19 20:59 04/25/19 20:34 Tramadol HCl (Ultram) 50 mg EVERY 8 HOURS PRN NG Moderate Pain (Pain Scale 4-6) 04/25/19 06:30 05/02/19 06:29 Last 24 Hour Vital Signs Date Time Temp Pulse Resp B/P (MAP) Pulse Ox O2 Delivery O2 Flow Rate FiO2 04/26/19 08:00 Simple Mask 2.0 04/26/19 08:00 2.0 04/26/19 08:00 98.8 115 27 103/68 (80) 100 04/26/19 07:12 118 25 100 Nasal Cannula 2.0 28 120 22 97 04/26/19 07:11 97 Nasal Cannula 2.0 28 04/26/19 07:00 119 26 113/71 (85) 99 04/26/19 06:00 119 25 105/68 (80) 100 04/26/19 05:10 110 20 100 04/26/19 05:00 116 32 105/72 (83) 100 04/26/19 04:00 2.0 04/26/19 04:00 Bi-pap 04/26/19 04:00 99.0 115 31 107/66 (80) 97 04/26/19 03:56 115 04/26/19 03:00 123 29 127/78 (94) 100 04/26/19 02:55 118 18 96 04/26/19 02:51 120 18 100 Nasal Cannula 2.0 28 118 18 96 04/26/19 02:00 116 23 112/72 (85) 94 04/26/19 01:00 114 28 120/81 (94) 97 04/26/19 00:53 113 24 100 30 04/26/19 00:00 Bi-pap 04/26/19 00:00 98.5 105 22 101/64 (76) 95 04/25/19 23:30 108 04/25/19 23:00 113 26 113/74 (87) 100 04/25/19 22:49 112 18 95 Bi-Pap 30 115 21 100 30 04/25/19 22:00 116 29 118/80 (93) 100 04/25/19 21:00 115 27 109/70 (83) 100 04/25/19 20:00 2.0 04/25/19 20:00 Nasal Cannula 2.0 04/25/19 20:00 98.3 108 25 94/65 (75) 99 04/25/19 19:26 118 04/25/19 19:00 118 26 108/68 (81) 97 04/25/19 18:38 111 19 100 04/25/19 18:38 113 19 100 Nasal Cannula 2.0 28 111 19 100 04/25/19 18:37 99 Nasal Cannula 2.0 28 04/25/19 18:00 115 27 114/74 (87) 99 04/25/19 17:00 117 26 123/75 (91) 98 04/25/19 16:00 Nasal Cannula 2.0 04/25/19 16:00 98.0 109 24 108/63 (78) 100 04/25/19 15:23 110 04/25/19 15:00 107 26 100/60 (73) 99 04/25/19 14:20 111 25 100 Bi-Pap 30 110 24 100 04/25/19 14:00 111 28 114/71 (85) 99 04/25/19 13:00 111 26 111/68 (82) 99 04/25/19 12:29 108 22 100 04/25/19 12:24 2.0 04/25/19 12:00 Nasal Cannula 2.0 04/25/19 12:00 98.1 107 21 97/65 (76) 100 04/25/19 11:51 110 04/25/19 11:30 101 21 100 Bi-Pap 30 100 19 100 04/25/19 11:30 100 27 100 30 04/25/19 11:00 101 18 107/73 (84) 100 04/25/19 10:03 102 18 104/72 (83) 98 04/25/19 09:43 98 19 100 30 04/25/19 09:40 30 04/25/19 09:00 108 27 104/67 (79) 98 04/25/19 08:00 Nasal Cannula 2.0 04/25/19 08:00 108 04/25/19 08:00 2.0 04/25/19 08:00 97.8 105 24 99/71 (80) 100 04/25/19 07:40 104 21 100 Nasal Cannula 2.0 28 108 24 100 04/25/19 07:24 100 Nasal Cannula 2.0 28 04/25/19 07:00 106 21 102/67 (79) 100 04/25/19 06:00 108 25 112/66 (81) 99 04/25/19 05:00 112 23 103/66 (78) 99 04/25/19 04:53 100 04/25/19 04:00 Nasal Cannula 2.0 04/25/19 04:00 2.0 04/25/19 04:00 97.9 113 29 103/69 (80) 100 04/25/19 03:16 107 04/25/19 03:08 112 20 100 Nasal Cannula 2.0 28 110 20 100 04/25/19 03:07 100 04/25/19 03:00 112 26 105/69 (81) 100 04/25/19 02:00 111 24 106/67 (80) 100 04/25/19 01:00 120 29 103/76 (85) 98 04/25/19 00:53 99 04/25/19 00:00 97.9 114 27 114/69 (84) 100 04/25/19 00:00 Nasal Cannula 2.0 04/25/19 00:00 2.0 04/24/19 23:04 109 04/24/19 23:00 106 24 93/69 (77) 100 04/24/19 22:45 118 24 98 Bi-Pap 30 117 20 100 30 04/24/19 22:40 30 04/24/19 22:00 108 23 113/70 (84) 100 04/24/19 21:00 115 29 108/72 (84) 99 04/24/19 20:00 Nasal Cannula 2.0 04/24/19 20:00 2.0 04/24/19 20:00 98.6 111 25 103/71 (82) 100 04/24/19 19:16 113 04/24/19 19:00 112 22 118/71 (87) 100 04/24/19 18:56 115 22 100 Nasal Cannula 2.0 28 112 22 100 04/24/19 18:49 100 Nasal Cannula 2.0 28 04/24/19 18:00 112 24 113/73 (86) 99 04/24/19 17:00 98.8 112 27 102/71 (81) 98 04/24/19 16:00 113 27 111/72 (85) 99 04/24/19 16:00 Bi-pap 04/24/19 16:00 2.0 04/24/19 15:29 109 04/24/19 15:00 107 22 108/76 (87) 100 04/24/19 14:58 108 24 100 Nasal Cannula 2.0 28 107 23 100 04/24/19 14:00 115 21 105/72 (83) 98 04/24/19 13:00 109 24 113/71 (85) 99 04/24/19 13:00 113 22 113/71 (85) 100 04/24/19 12:00 98.0 113 25 122/75 (91) 99 04/24/19 12:00 110 04/24/19 12:00 Bi-pap 04/24/19 12:00 2.0 04/24/19 11:59 108 22 99 Nasal Cannula 2.0 28 113 24 99 04/24/19 11:31 113 04/24/19 11:00 112 23 110/77 (88) 100 04/24/19 10:02 117 24 111/69 (83) 93 04/24/19 09:00 115 27 113/72 (86) 100 Intake and Output 04/25/19 04/26/19 19:00 07:00 Intake Total 1585 ml 1341.50 ml Output Total 1980 ml 1540 ml Balance -395 ml -198.50 ml Free Water 50 ml IV Total 775 ml 681.50 ml Tube Feeding 660 ml 660 ml Other 100 ml Output Urine Total 1980 ml 1540 ml # Bowel Movements 4 4 Labs Test 04/23/19 08:56 04/24/19 05:00 04/24/19 09:46 04/25/19 06:31 Arterial Blood pH 7.400 (7.350-7.450) 7.369 (7.350-7.450) Arterial Blood Partial Pressure CO2 34.7 mmHg (35.0-45.0) 48.3 mmHg (35.0-45.0) Arterial Blood Partial Pressure O2 81.5 mmHg (75.0-100.0) 86.9 mmHg (75.0-100.0) Arterial Blood HCO3 21.0 mmol/L (22.0-26.0) 27.2 mmol/L (22.0-26.0) Arterial Blood Oxygen Saturation 94.7 % (95-100) 96.0 % (95-100) Arterial Blood Base Excess -3.3 (-2-2) 1.5 (-2-2) Antonio Test Positive Positive White Blood Count 4.3 K/UL (4.8-10.8) 5.3 K/UL (4.8-10.8) Red Blood Count 3.23 M/UL (4.70-6.10) 3.16 M/UL (4.70-6.10) Hemoglobin 9.2 G/DL (14.2-18.0) 9.2 G/DL (14.2-18.0) Hematocrit 27.4 % (42.0-52.0) 26.9 % (42.0-52.0) Mean Corpuscular Volume 85 FL (80-99) 85 FL (80-99) Mean Corpuscular Hemoglobin 28.6 PG (27.0-31.0) 29.2 PG (27.0-31.0) Mean Corpuscular Hemoglobin Concent 33.8 G/DL (32.0-36.0) 34.2 G/DL (32.0-36.0) Red Cell Distribution Width 14.9 % (11.6-14.8) 14.8 % (11.6-14.8) Platelet Count 333 K/UL (150-450) 302 K/UL (150-450) Mean Platelet Volume 4.3 FL (6.5-10.1) 4.4 FL (6.5-10.1) Neutrophils (%) (Auto) 64.7 % (45.0-75.0) 67.1 % (45.0-75.0) Lymphocytes (%) (Auto) 16.1 % (20.0-45.0) 14.6 % (20.0-45.0) Monocytes (%) (Auto) 10.0 % (1.0-10.0) 10.5 % (1.0-10.0) Eosinophils (%) (Auto) 7.6 % (0.0-3.0) 6.5 % (0.0-3.0) Basophils (%) (Auto) 1.5 % (0.0-2.0) 1.3 % (0.0-2.0) Sodium Level 150 MMOL/L (136-145) 145 MMOL/L (136-145) Potassium Level 3.4 MMOL/L (3.5-5.1) 3.5 MMOL/L (3.5-5.1) Chloride Level 111 MMOL/L (98-107) 106 MMOL/L (98-107) Carbon Dioxide Level 24 MMOL/L (21-32) 32 MMOL/L (21-32) Anion Gap 15 mmol/L (5-15) 7 mmol/L (5-15) Blood Urea Nitrogen 19 mg/dL (7-18) 21 mg/dL (7-18) Creatinine 1.7 MG/DL (0.55-1.30) 1.8 MG/DL (0.55-1.30) Estimat Glomerular Filtration Rate 48.2 mL/min (>60) 45.2 mL/min (>60) Glucose Level 73 MG/DL (74-106) 116 MG/DL (74-106) Calcium Level 9.2 MG/DL (8.5-10.1) 8.8 MG/DL (8.5-10.1) Test 04/25/19 09:20 04/26/19 05:15 Arterial Blood pH 7.399 (7.350-7.450) Arterial Blood Partial Pressure CO2 57.8 mmHg (35.0-45.0) Arterial Blood Partial Pressure O2 88.3 mmHg (75.0-100.0) Arterial Blood HCO3 34.9 mmol/L (22.0-26.0) Arterial Blood Oxygen Saturation 96.2 % (95-100) Arterial Blood Base Excess 8.8 (-2-2) Antonio Test Positive White Blood Count 7.3 K/UL (4.8-10.8) Red Blood Count 3.27 M/UL (4.70-6.10) Hemoglobin 9.3 G/DL (14.2-18.0) Hematocrit 27.6 % (42.0-52.0) Mean Corpuscular Volume 84 FL (80-99) Mean Corpuscular Hemoglobin 28.5 PG (27.0-31.0) Mean Corpuscular Hemoglobin Concent 33.7 G/DL (32.0-36.0) Red Cell Distribution Width 14.5 % (11.6-14.8) Platelet Count 302 K/UL (150-450) Mean Platelet Volume 4.7 FL (6.5-10.1) Neutrophils (%) (Auto) 64.4 % (45.0-75.0) Lymphocytes (%) (Auto) 15.8 % (20.0-45.0) Monocytes (%) (Auto) 12.5 % (1.0-10.0) Eosinophils (%) (Auto) 6.3 % (0.0-3.0) Basophils (%) (Auto) 1.0 % (0.0-2.0) Sodium Level 142 MMOL/L (136-145) Potassium Level 3.1 MMOL/L (3.5-5.1) Chloride Level 102 MMOL/L (98-107) Carbon Dioxide Level 36 MMOL/L (21-32) Anion Gap 4 mmol/L (5-15) Blood Urea Nitrogen 24 mg/dL (7-18) Creatinine 1.7 MG/DL (0.55-1.30) Estimat Glomerular Filtration Rate 48.2 mL/min (>60) Glucose Level 116 MG/DL (74-106) Calcium Level 8.4 MG/DL (8.5-10.1) Height (Feet): 5 Height (Inches): 7.00 Weight (Pounds): 145 Objective General: normal inspection, alert, Chronically Ill Respiratory: dry breath sounds b/l, ++ bipap Cardiovascular: regular rate, rhythm, no edema Gastrointestinal: normal inspection, normal bowel sounds Genitourinary: no CVA tenderness Mus: normal inspection, back normal, normal range of motion Neurologic: alert, motor strength/tone normal, oriented + confused Psychiatric: normal inspection, judgement/insight normal Skin: no rash Andreas Monroy MD Apr 26, 2019 08:47
--- NOTE | 2019-04-26 09:09 | Urology Progress Note ---
Assessment/Plan Status: unchanged Assessment/Plan: 1. 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 2. Urinary retention. 3. Acute kidney injury, labile. 4. Hydronephrosis, likely chronic. 5. Proteinuria. 6. UTI and colonization. 7. Hematuria. monitor clinically maintain guerra, last replaced 04/10 hand irrigated and do PRN position is satisfactory monitor renal fxn, labile likely obst of bilateral distal ureters secondary to advanced prostate ca will need to see how aggressive pt and family want to be renal fxn improved with the new guerra consider ureteral stents or nephrostomies? flomax added abx as ordered may need to hold lovenox voiding trial at some point? d/w nursing staff family members want to take pt to [facility] Subjective Allergies: Coded Allergies: No Known Allergies (Unverified , 04/03/19) Subjective all noted, still in ICU Objective Last 24 Hour Vital Signs Date Time Temp Pulse Resp B/P (MAP) Pulse Ox O2 Delivery O2 Flow Rate FiO2 04/26/19 09:00 109 25 105/62 (76) 100 04/26/19 08:00 Simple Mask 2.0 04/26/19 08:00 2.0 04/26/19 08:00 98.8 115 27 103/68 (80) 100 04/26/19 07:12 118 25 100 Nasal Cannula 2.0 28 120 22 97 04/26/19 07:11 97 Nasal Cannula 2.0 28 04/26/19 07:00 119 26 113/71 (85) 99 04/26/19 06:00 119 25 105/68 (80) 100 04/26/19 05:10 110 20 100 04/26/19 05:00 116 32 105/72 (83) 100 04/26/19 04:00 2.0 04/26/19 04:00 Bi-pap 04/26/19 04:00 99.0 115 31 107/66 (80) 97 04/26/19 03:56 115 04/26/19 03:00 123 29 127/78 (94) 100 04/26/19 02:55 118 18 96 04/26/19 02:51 120 18 100 Nasal Cannula 2.0 28 118 18 96 04/26/19 02:00 116 23 112/72 (85) 94 2/23/20 01:00 114 28 120/81 (94) 97 04/26/19 00:53 113 24 100 30 04/26/19 00:00 Bi-pap 04/26/19 00:00 98.5 105 22 101/64 (76) 95 04/25/19 23:30 108 04/25/19 23:00 113 26 113/74 (87) 100 04/25/19 22:49 112 18 95 Bi-Pap 30 115 21 100 30 04/25/19 22:00 116 29 118/80 (93) 100 04/25/19 21:00 115 27 109/70 (83) 100 04/25/19 20:00 2.0 04/25/19 20:00 Nasal Cannula 2.0 04/25/19 20:00 98.3 108 25 94/65 (75) 99 04/25/19 19:26 118 04/25/19 19:00 118 26 108/68 (81) 97 04/25/19 18:38 111 19 100 04/25/19 18:38 113 19 100 Nasal Cannula 2.0 28 111 19 100 04/25/19 18:37 99 Nasal Cannula 2.0 28 04/25/19 18:00 115 27 114/74 (87) 99 04/25/19 17:00 117 26 123/75 (91) 98 04/25/19 16:00 Nasal Cannula 2.0 04/25/19 16:00 98.0 109 24 108/63 (78) 100 04/25/19 15:23 110 04/25/19 15:00 107 26 100/60 (73) 99 04/25/19 14:20 111 25 100 Bi-Pap 30 110 24 100 04/25/19 14:00 111 28 114/71 (85) 99 04/25/19 13:00 111 26 111/68 (82) 99 04/25/19 12:29 108 22 100 04/25/19 12:24 2.0 04/25/19 12:00 Nasal Cannula 2.0 04/25/19 12:00 98.1 107 21 97/65 (76) 100 04/25/19 11:51 110 04/25/19 11:30 101 21 100 Bi-Pap 30 100 19 100 04/25/19 11:30 100 27 100 30 04/25/19 11:00 101 18 107/73 (84) 100 04/25/19 10:03 102 18 104/72 (83) 98 04/25/19 09:43 98 19 100 30 04/25/19 09:40 30 Intake and Output 04/25/19 04/26/19 19:00 07:00 Intake Total 1585 ml 1341.50 ml Output Total 1980 ml 1540 ml Balance -395 ml -198.50 ml Free Water 50 ml IV Total 775 ml 681.50 ml Tube Feeding 660 ml 660 ml Other 100 ml Output Urine Total 1980 ml 1540 ml # Bowel Movements 4 4 Microbiology Date/Time Source Procedure Growth Status 04/14/19 12:45 Blood Blood Culture - Final NO GROWTH AFTER 5 DAYS Complete 04/15/19 21:40 Sputum Gram Stain - Final Complete 04/15/19 21:40 Sputum Sputum Culture - Final NORMAL UPPER RESPIRATORY DAVID PRESENT Complete 04/18/19 17:00 Stool Clostridium difficile Toxin Assay - Final Complete 04/14/19 11:25 Urine,Random Urine Culture - Final NO GROWTH AFTER 48 HOURS Complete Current Medications Medications (Trade) Dose Ordered Sig/La Nena Route PRN Reason Start Time Stop Time Status Last Admin Dose Admin Acetaminophen (Tylenol) 650 mg Q6H PRN ORAL Mild Pain/Temp > 100.5 04/24/19 11:00 05/24/19 10:59 04/25/19 03:37 Acetylcysteine (Mucomyst) 200 mg Q4HRT [facility] 04/18/19 11:00 05/18/19 10:59 04/26/19 07:10 Albuterol/ Ipratropium (Albuterol/ Ipratropium) 3 ml Q4HRT N 04/23/19 15:00 04/28/19 14:59 04/26/19 07:10 Cefepime HCl 1 gm/ Dextrose 55 ml @ 110 mls/hr Q24H IVPB 04/21/19 12:00 04/28/19 11:59 04/25/19 11:31 Dextrose 1,000 ml @ 50 mls/hr Q20H IV 04/24/19 07:30 05/24/19 07:29 04/25/19 23:37 Enoxaparin Sodium (Lovenox) 40 mg DAILY SUBQ 04/25/19 09:00 05/25/19 08:59 04/26/19 08:43 Furosemide 100 mg/ Dextrose 100 ml @ 10 mls/hr Q10H IV 04/23/19 14:00 05/23/19 13:59 04/26/19 01:46 Hydralazine HCl (Apresoline) 10 mg Q4H PRN IV SBP > 170mmHg 04/13/19 15:00 05/08/19 14:59 Lansoprazole (Prevacid) 30 mg DAILY ORAL 04/14/19 09:00 05/13/19 08:59 04/26/19 08:42 Memantine (Namenda) 5 mg BID ORAL 04/13/19 18:00 05/04/19 17:59 04/26/19 08:42 Norepinephrine Bitartrate 4 mg/ Dextrose 250 ml @ 0 mls/hr Q24H IV 04/13/19 17:00 05/13/19 16:59 04/14/19 22:57 Tamsulosin HCl (Flomax) 0.4 mg BEDTIME ORAL 04/13/19 21:00 05/13/19 20:59 04/25/19 20:34 Tramadol HCl (Ultram) 50 mg EVERY 8 HOURS PRN NG Moderate Pain (Pain Scale 4-6) 04/25/19 06:30 05/02/19 06:29 Laboratory Tests 04/25/19 09:20: Arterial Blood pH 7.399, Arterial Blood Partial Pressure CO2 57.8*H, Arterial Blood Partial Pressure O2 88.3, Arterial Blood HCO3 34.9H, Arterial Blood Oxygen Saturation 96.2, Arterial Blood Base Excess 8.8H, Antonio Test Positive 04/26/19 05:15: White Blood Count 7.3, Red Blood Count 3.27L, Hemoglobin 9.3L, Hematocrit 27.6L , Mean Corpuscular Volume 84, Mean Corpuscular Hemoglobin 28.5, Mean Corpuscular Hemoglobin Concent 33.7, Red Cell Distribution Width 14.5, Platelet Count 302, Mean Platelet Volume 4.7L, Neutrophils (%) (Auto) 64.4, Lymphocytes ( %) (Auto) 15.8L, Monocytes (%) (Auto) 12.5H, Eosinophils (%) (Auto) 6.3H, Basophils (%) (Auto) 1.0, Sodium Level 142, Potassium Level 3.1L, Chloride Level 102, Carbon Dioxide Level 36H, Anion Gap 4L, Blood Urea Nitrogen 24H, Creatinine 1.7H, Estimat Glomerular Filtration Rate 48.2, Glucose Level 116H, Calcium Level 8.4L Height (Feet): 5 Height (Inches): 7.00 Weight (Pounds): 145 Objective exam stable guerra indwelling, yellow/allegra urine CT A/P (04/10) noted Raz Root MD Apr 26, 2019 09:09
--- NOTE | 2019-04-26 09:21 | General Progress Note ---
Assessment/Plan Problem List: (1) UTI (urinary tract infection) ICD Codes: N39.0 - Urinary tract infection, site not specified SNOMED: 35740124 (2) Weak ICD Codes: R53.1 - Weakness SNOMED: 62022554 (3) Anemia ICD Codes: D64.9 - Anemia, unspecified SNOMED: 633289372 (4) Dehydration ICD Codes: E86.0 - Dehydration SNOMED: 85166796, 70830120 (5) Episode of generalized weakness ICD Codes: R53.1 - Weakness SNOMED: 21189994 (6) Stage III adenocarcinoma of prostate ICD Codes: C61 - Malignant neoplasm of prostate SNOMED: 010462945, 16622485 Status: unchanged Assessment/Plan: o2 pulm tx pt diet abx iv fluid heme gi eval cbc bmp am Subjective Constitutional: Reports: weakness Allergies: Coded Allergies: No Known Allergies (Unverified , 04/03/19) All Systems: reviewed and negative except above Subjective o2nc ng in icu Objective Last 24 Hour Vital Signs Date Time Temp Pulse Resp B/P (MAP) Pulse Ox O2 Delivery O2 Flow Rate FiO2 04/26/19 09:00 109 25 105/62 (76) 100 04/26/19 08:00 Simple Mask 2.0 04/26/19 08:00 2.0 04/26/19 08:00 98.8 115 27 103/68 (80) 100 04/26/19 07:12 118 25 100 Nasal Cannula 2.0 28 120 22 97 04/26/19 07:11 97 Nasal Cannula 2.0 28 04/26/19 07:00 119 26 113/71 (85) 99 04/26/19 06:00 119 25 105/68 (80) 100 04/26/19 05:10 110 20 100 04/26/19 05:00 116 32 105/72 (83) 100 04/26/19 04:00 2.0 04/26/19 04:00 Bi-pap 04/26/19 04:00 99.0 115 31 107/66 (80) 97 04/26/19 03:56 115 04/26/19 03:00 123 29 127/78 (94) 100 04/26/19 02:55 118 18 96 04/26/19 02:51 120 18 100 Nasal Cannula 2.0 28 118 18 96 04/26/19 02:00 116 23 112/72 (85) 94 04/26/19 01:00 114 28 120/81 (94) 97 04/26/19 00:53 113 24 100 30 04/26/19 00:00 Bi-pap 04/26/19 00:00 98.5 105 22 101/64 (76) 95 04/25/19 23:30 108 04/25/19 23:00 113 26 113/74 (87) 100 04/25/19 22:49 112 18 95 Bi-Pap 30 115 21 100 30 04/25/19 22:00 116 29 118/80 (93) 100 04/25/19 21:00 115 27 109/70 (83) 100 04/25/19 20:00 2.0 04/25/19 20:00 Nasal Cannula 2.0 04/25/19 20:00 98.3 108 25 94/65 (75) 99 04/25/19 19:26 118 04/25/19 19:00 118 26 108/68 (81) 97 04/25/19 18:38 111 19 100 04/25/19 18:38 113 19 100 Nasal Cannula 2.0 28 111 19 100 04/25/19 18:37 99 Nasal Cannula 2.0 28 04/25/19 18:00 115 27 114/74 (87) 99 04/25/19 17:00 117 26 123/75 (91) 98 04/25/19 16:00 Nasal Cannula 2.0 04/25/19 16:00 98.0 109 24 108/63 (78) 100 04/25/19 15:23 110 04/25/19 15:00 107 26 100/60 (73) 99 04/25/19 14:20 111 25 100 Bi-Pap 30 110 24 100 04/25/19 14:00 111 28 114/71 (85) 99 04/25/19 13:00 111 26 111/68 (82) 99 04/25/19 12:29 108 22 100 04/25/19 12:24 2.0 04/25/19 12:00 Nasal Cannula 2.0 04/25/19 12:00 98.1 107 21 97/65 (76) 100 04/25/19 11:51 110 04/25/19 11:30 101 21 100 Bi-Pap 30 100 19 100 04/25/19 11:30 100 27 100 30 04/25/19 11:00 101 18 107/73 (84) 100 04/25/19 10:03 102 18 104/72 (83) 98 04/25/19 09:43 98 19 100 30 04/25/19 09:40 30 Intake and Output 04/25/19 04/26/19 19:00 07:00 Intake Total 1585 ml 1341.50 ml Output Total 1980 ml 1540 ml Balance -395 ml -198.50 ml Free Water 50 ml IV Total 775 ml 681.50 ml Tube Feeding 660 ml 660 ml Other 100 ml Output Urine Total 1980 ml 1540 ml # Bowel Movements 4 4 Laboratory Tests 04/26/19 05:15: White Blood Count 7.3, Red Blood Count 3.27L, Hemoglobin 9.3L, Hematocrit 27.6L , Mean Corpuscular Volume 84, Mean Corpuscular Hemoglobin 28.5, Mean Corpuscular Hemoglobin Concent 33.7, Red Cell Distribution Width 14.5, Platelet Count 302, Mean Platelet Volume 4.7L, Neutrophils (%) (Auto) 64.4, Lymphocytes ( %) (Auto) 15.8L, Monocytes (%) (Auto) 12.5H, Eosinophils (%) (Auto) 6.3H, Basophils (%) (Auto) 1.0, Sodium Level 142, Potassium Level 3.1L, Chloride Level 102, Carbon Dioxide Level 36H, Anion Gap 4L, Blood Urea Nitrogen 24H, Creatinine 1.7H, Estimat Glomerular Filtration Rate 48.2, Glucose Level 116H, Calcium Level 8.4L Height (Feet): 5 Height (Inches): 7.00 Weight (Pounds): 145 General Appearance: lethargic EENT: normal ENT inspection Neck: normal alignment Cardiovascular: normal peripheral pulses, normal rate, regular rhythm Respiratory/Chest: chest wall non-tender, decreased breath sounds Abdomen: normal bowel sounds, non tender, soft Extremities: normal inspection Edema: no edema noted Arm (L), no edema noted Arm (R), no edema noted Leg (L), no edema noted Leg (R), no edema noted Pedal (L), no edema noted Pedal (R), no edema noted Generalized Neurologic: motor weakness Skin: normal pigmentation, warm/dry Sawyer Toussaint DO Apr 26, 2019 09:21
--- NOTE | 2019-04-26 10:22 | NUR ---
NURSE NOTES: Pt fully cleaned after having a large brown soft BM. Oral care completed. Pt remains on 2L NC, no respiratory distress noted at this time, O2Sat 100%.
[2019-04-26] MEDS: Cefepime HCl 1 GM in D5W 55 ML IVPB SCH (11:27)
--- NOTE | 2019-04-26 12:30 | NUR ---
NURSE NOTES: Patient remains on 2L NC. No complaints of pain or distress. Sleeps intermittently. Will continue to monitor.
--- NOTE | 2019-04-26 13:54 | Surgery Progress Note ---
Surgery Progress Note Subjective Procedure Performed right femoral central venous catheter insertion Additional Comments off bipap comfortable THERAPEUTIC SALES SPECIALIST eval for diet now that improved ng with tube feeds going well peg? Objective Last 24 Hour Vital Signs Date Time Temp Pulse Resp B/P (MAP) Pulse Ox O2 Delivery O2 Flow Rate FiO2 04/26/19 13:00 114 24 107/71 (83) 100 04/26/19 12:00 Simple Mask 2.0 04/26/19 12:00 2.0 04/26/19 12:00 117 04/26/19 12:00 98.6 111 25 107/67 (80) 98 04/26/19 11:00 115 23 104/70 (81) 100 04/26/19 10:45 117 26 100 Nasal Cannula 2.0 28 118 22 100 04/26/19 10:00 117 22 110/71 (84) 100 04/26/19 09:00 109 25 105/62 (76) 100 04/26/19 08:00 Simple Mask 2.0 04/26/19 08:00 2.0 04/26/19 08:00 98.8 115 27 103/68 (80) 100 04/26/19 07:58 115 04/26/19 07:12 118 25 100 Nasal Cannula 2.0 28 120 22 97 04/26/19 07:11 97 Nasal Cannula 2.0 28 04/26/19 07:00 119 26 113/71 (85) 99 04/26/19 06:00 119 25 105/68 (80) 100 04/26/19 05:10 110 20 100 04/26/19 05:00 116 32 105/72 (83) 100 04/26/19 04:00 2.0 04/26/19 04:00 Bi-pap 04/26/19 04:00 99.0 115 31 107/66 (80) 97 04/26/19 03:56 115 04/26/19 03:00 123 29 127/78 (94) 100 04/26/19 02:55 118 18 96 04/26/19 02:51 120 18 100 Nasal Cannula 2.0 28 118 18 96 04/26/19 02:00 116 23 112/72 (85) 94 04/26/19 01:00 114 28 120/81 (94) 97 04/26/19 00:53 113 24 100 30 2/23/20 00:00 Bi-pap 04/26/19 00:00 98.5 105 22 101/64 (76) 95 04/25/19 23:30 108 04/25/19 23:00 113 26 113/74 (87) 100 04/25/19 22:49 112 18 95 Bi-Pap 30 115 21 100 30 04/25/19 22:00 116 29 118/80 (93) 100 04/25/19 21:00 115 27 109/70 (83) 100 04/25/19 20:00 2.0 04/25/19 20:00 Nasal Cannula 2.0 04/25/19 20:00 98.3 108 25 94/65 (75) 99 04/25/19 19:26 118 04/25/19 19:00 118 26 108/68 (81) 97 04/25/19 18:38 111 19 100 04/25/19 18:38 113 19 100 Nasal Cannula 2.0 28 111 19 100 04/25/19 18:37 99 Nasal Cannula 2.0 28 04/25/19 18:00 115 27 114/74 (87) 99 04/25/19 17:00 117 26 123/75 (91) 98 04/25/19 16:00 Nasal Cannula 2.0 04/25/19 16:00 98.0 109 24 108/63 (78) 100 04/25/19 15:23 110 04/25/19 15:00 107 26 100/60 (73) 99 04/25/19 14:20 111 25 100 Bi-Pap 30 110 24 100 04/25/19 14:00 111 28 114/71 (85) 99 I&O Intake and Output 04/25/19 04/26/19 19:00 07:00 Intake Total 1585 ml 1341.50 ml Output Total 1980 ml 1540 ml Balance -395 ml -198.50 ml Free Water 50 ml IV Total 775 ml 681.50 ml Tube Feeding 660 ml 660 ml Other 100 ml Output Urine Total 1980 ml 1540 ml # Bowel Movements 4 4 Dressing: other Wound: other Drains: other Cardiovascular: RSR Respiratory: decreased breath sounds Abdomen: soft, present bowel sounds Extremities: no cyanosis Laboratory Tests Test 04/26/19 05:15 White Blood Count 7.3 K/UL (4.8-10.8) Red Blood Count 3.27 M/UL (4.70-6.10) L Hemoglobin 9.3 G/DL (14.2-18.0) L Hematocrit 27.6 % (42.0-52.0) L Mean Corpuscular Volume 84 FL (80-99) Mean Corpuscular Hemoglobin 28.5 PG (27.0-31.0) Mean Corpuscular Hemoglobin Concent 33.7 G/DL (32.0-36.0) Red Cell Distribution Width 14.5 % (11.6-14.8) Platelet Count 302 K/UL (150-450) Mean Platelet Volume 4.7 FL (6.5-10.1) L Neutrophils (%) (Auto) 64.4 % (45.0-75.0) Lymphocytes (%) (Auto) 15.8 % (20.0-45.0) L Monocytes (%) (Auto) 12.5 % (1.0-10.0) H Eosinophils (%) (Auto) 6.3 % (0.0-3.0) H Basophils (%) (Auto) 1.0 % (0.0-2.0) Sodium Level 142 MMOL/L (136-145) Potassium Level 3.1 MMOL/L (3.5-5.1) L Chloride Level 102 MMOL/L (98-107) Carbon Dioxide Level 36 MMOL/L (21-32) H Anion Gap 4 mmol/L (5-15) L Blood Urea Nitrogen 24 mg/dL (7-18) H Creatinine 1.7 MG/DL (0.55-1.30) H Estimat Glomerular Filtration Rate 48.2 mL/min (>60) Glucose Level 116 MG/DL (74-106) H Calcium Level 8.4 MG/DL (8.5-10.1) L Plan Problems: (1) Cardiac arrest Assessment & Plan: Acute deterioration Cardiovascular lopez ACLS required for resuscitation Still full code Hypotensive intensive care unit requiring a new central venous catheter see note Antibiotics as per infectious caries cont current treatment improving trend labs diet as tolerated improving on bipap may require intubation if so will recommend trach will follow with recs cont tube feeds lasix gtt family does not want thora thank you (2) Stage III adenocarcinoma of prostate Assessment & Plan: patient with state 3 prostate cancer pending treatment at [facility] unlikely related to acute cardiac arrest this am abd exam with mild distention no acute surgical intervention planned onc input improving extubated diet as tolerated thank you will follow with Jay Conrad Apr 26, 2019 13:54
--- NOTE | 2019-04-26 14:05 | NUR ---
NURSE NOTES: ROM performed, remains on BL soft wrist restraints for safety. Pt remains impulsive with periods of confusion. No distress noted.
--- NOTE | 2019-04-26 14:30 | Progress Note ---
DATE: 04/26/2019 SUBJECTIVE: This is a 73-year-old male patient who came in. He still have some depression, confusion, mood lability. He is in ICU. He has altered mental status and decline in cognition below the baseline. That is why, his attending has requested daily psychiatric consultation. DIAGNOSIS: Major depressive disorder, mild, recurrent with psychotic features. He also has generalized weakness. PLAN: Treat him with Namenda 5 twice a day, Ativan 1 every 6 hours p.r.n. anxiety and agitation. A 20 minutes of insight-oriented psychotherapy to help him have better impulse control on the unit. Cherise Palma M.D. DR: MANDI JOB#: [id number] CC:
--- NOTE | 2019-04-26 15:54 | Pulmonology Progress Note ---
Assessment/Plan Assessment/Plan IMPRESSION: 1. Status post asystolic cardiac arrest. Again on 04/13/19 2. Respiratory failure, re-intubated; and now extubated 04/20/19 3. Altered mental status. Resolved 4. Hypernatremia. Corrected. 5. Hypokalemia . Corrected. 6. History of COPD. 7. Prostate CA. DISCUSSION: 1. Off BiPAP 2. Needs PEG 3. Doing well post extubation 5. Dc diuretics 6. Transfused CXR looking better; Needs PEG; would not advise PO diet again No longer on BiPAP has large left pleural effusion, family refuses thoracentesis. Will continue increased diuresis Ganesh Mathews M.D. Subjective Interval Events: Looking and feeling better Constitutional: Reports: no symptoms HEENT: Repors: no symptoms Respiratory: Reports: no symptoms Cardiovascular: Reports: no symptoms Gastrointestinal/Abdominal: Reports: no symptoms Genitourinary: Reports: no symptoms Allergies: Coded Allergies: No Known Allergies (Unverified , 04/03/19) Objective Last 24 Hour Vital Signs Date Time Temp Pulse Resp B/P (MAP) Pulse Ox O2 Delivery O2 Flow Rate FiO2 04/26/19 14:38 115 25 100 Nasal Cannula 2.0 28 115 24 100 04/26/19 14:00 124 28 122/69 (86) 99 04/26/19 13:00 114 24 107/71 (83) 100 04/26/19 12:00 Simple Mask 2.0 04/26/19 12:00 2.0 04/26/19 12:00 117 04/26/19 12:00 98.6 111 25 107/67 (80) 98 04/26/19 11:00 115 23 104/70 (81) 100 04/26/19 10:45 117 26 100 Nasal Cannula 2.0 28 118 22 100 04/26/19 10:00 117 22 110/71 (84) 100 04/26/19 09:00 109 25 105/62 (76) 100 04/26/19 08:00 Simple Mask 2.0 04/26/19 08:00 2.0 04/26/19 08:00 98.8 115 27 103/68 (80) 100 04/26/19 07:58 115 04/26/19 07:12 118 25 100 Nasal Cannula 2.0 28 120 22 97 04/26/19 07:11 97 Nasal Cannula 2.0 28 04/26/19 07:00 119 26 113/71 (85) 99 04/26/19 06:00 119 25 105/68 (80) 100 04/26/19 05:10 110 20 100 04/26/19 05:00 116 32 105/72 (83) 100 04/26/19 04:00 2.0 04/26/19 04:00 Bi-pap 04/26/19 04:00 99.0 115 31 107/66 (80) 97 04/26/19 03:56 115 04/26/19 03:00 123 29 127/78 (94) 100 04/26/19 02:55 118 18 96 04/26/19 02:51 120 18 100 Nasal Cannula 2.0 28 118 18 96 04/26/19 02:00 116 23 112/72 (85) 94 04/26/19 01:00 114 28 120/81 (94) 97 04/26/19 00:53 113 24 100 30 04/26/19 00:00 Bi-pap 04/26/19 00:00 98.5 105 22 101/64 (76) 95 04/25/19 23:30 108 04/25/19 23:00 113 26 113/74 (87) 100 04/25/19 22:49 112 18 95 Bi-Pap 30 115 21 100 30 04/25/19 22:00 116 29 118/80 (93) 100 04/25/19 21:00 115 27 109/70 (83) 100 04/25/19 20:00 2.0 04/25/19 20:00 Nasal Cannula 2.0 04/25/19 20:00 98.3 108 25 94/65 (75) 99 04/25/19 19:26 118 04/25/19 19:00 118 26 108/68 (81) 97 04/25/19 18:38 111 19 100 04/25/19 18:38 113 19 100 Nasal Cannula 2.0 28 111 19 100 04/25/19 18:37 99 Nasal Cannula 2.0 28 04/25/19 18:00 115 27 114/74 (87) 99 04/25/19 17:00 117 26 123/75 (91) 98 04/25/19 16:00 Nasal Cannula 2.0 04/25/19 16:00 98.0 109 24 108/63 (78) 100 Intake and Output 04/25/19 04/26/19 19:00 07:00 Intake Total 1585 ml 1341.50 ml Output Total 1980 ml 1540 ml Balance -395 ml -198.50 ml Free Water 50 ml IV Total 775 ml 681.50 ml Tube Feeding 660 ml 660 ml Other 100 ml Output Urine Total 1980 ml 1540 ml # Bowel Movements 4 4 General Appearance: no acute distress HEENT: normocephalic Respiratory/Chest: chest wall non-tender, decreased breath sounds Cardiovascular: normal peripheral pulses, normal rate Abdomen: normal bowel sounds Laboratory Tests 04/26/19 05:15: White Blood Count 7.3, Red Blood Count 3.27L, Hemoglobin 9.3L, Hematocrit 27.6L , Mean Corpuscular Volume 84, Mean Corpuscular Hemoglobin 28.5, Mean Corpuscular Hemoglobin Concent 33.7, Red Cell Distribution Width 14.5, Platelet Count 302, Mean Platelet Volume 4.7L, Neutrophils (%) (Auto) 64.4, Lymphocytes ( %) (Auto) 15.8L, Monocytes (%) (Auto) 12.5H, Eosinophils (%) (Auto) 6.3H, Basophils (%) (Auto) 1.0, Sodium Level 142, Potassium Level 3.1L, Chloride Level 102, Carbon Dioxide Level 36H, Anion Gap 4L, Blood Urea Nitrogen 24H, Creatinine 1.7H, Estimat Glomerular Filtration Rate 48.2, Glucose Level 116H, Calcium Level 8.4L Current Medications Medications (Trade) Dose Ordered Sig/[place] Route PRN Reason Start Time Stop Time Status Last Admin Dose Admin Acetaminophen (Tylenol) 650 mg Q6H PRN ORAL Mild Pain/Temp > 100.5 04/24/19 11:00 05/24/19 10:59 04/25/19 03:37 Acetylcysteine (Mucomyst) 200 mg Q4HRT HHN 04/18/19 11:00 05/18/19 10:59 04/26/19 14:38 Albuterol/ Ipratropium (Albuterol/ Ipratropium) 3 ml Q4HRT HHN 04/23/19 15:00 04/28/19 14:59 04/26/19 14:38 Cefepime HCl 1 gm/ Dextrose 55 ml @ 110 mls/hr Q24H IVPB 04/21/19 12:00 04/28/19 11:59 04/26/19 11:27 Dextrose 1,000 ml @ 50 mls/hr Q20H IV 04/24/19 07:30 05/24/19 07:29 04/25/19 23:37 Enoxaparin Sodium (Lovenox) 40 mg DAILY SUBQ 04/25/19 09:00 05/25/19 08:59 04/26/19 08:43 Furosemide 100 mg/ Dextrose 100 ml @ 10 mls/hr Q10H IV 04/23/19 14:00 05/23/19 13:59 04/26/19 11:26 Hydralazine HCl (Apresoline) 10 mg Q4H PRN IV SBP > 170mmHg 04/13/19 15:00 05/08/19 14:59 Lansoprazole (Prevacid) 30 mg DAILY ORAL 04/14/19 09:00 05/13/19 08:59 04/26/19 08:42 Memantine (Namenda) 5 mg BID ORAL 04/13/19 18:00 05/04/19 17:59 04/26/19 08:42 Norepinephrine Bitartrate 4 mg/ Dextrose 250 ml @ 0 mls/hr Q24H IV 04/13/19 17:00 05/13/19 16:59 04/14/19 22:57 Potassium Chloride (K-Dur) 40 meq ONCE ORAL 04/26/19 17:00 04/26/19 18:00 Tamsulosin HCl (Flomax) 0.4 mg BEDTIME ORAL 04/13/19 21:00 05/13/19 20:59 04/25/19 20:34 Tramadol HCl (Ultram) 50 mg EVERY 8 HOURS PRN NG Moderate Pain (Pain Scale 4-6) 04/25/19 06:30 05/02/19 06:29 Ganesh Mathews MD Apr 26, 2019 15:54
[2019-04-26] MEDS ORDERED: Tubing IV Secondary IV ONE (16:33)
--- NOTE | 2019-04-26 16:50 | NUR ---
NURSE NOTES: Daughter in law of patient called today asking specific questions of patient. Exact VS were given however patient's family member con't to ask specific questions. radio personality advised that she should speak with MD regarding any details regarding results. Offered to give her numbers to the office however Amy, daughter in law refused. Wanted radio personality to call MD instead. Called Primary MD, Dr. Sawyer Toussaint and LM with the exchange. Will call Dr. Mathews next.
--- NOTE | 2019-04-26 18:01 | NUR ---
NURSE NOTES: Bed bath given, linens changes, oral care and suction done, turned and repositioned. Safety measures in place. Vital signs stable. Patient is comfortable.
--- NOTE | 2019-04-26 19:13 | NUR ---
HAND-OFF: Report given to BLANCA Madison.
--- NOTE | 2019-04-26 19:30 | NUR ---
NURSE NOTES: Received report from BLANCA Goodson. Pt is resting on the bed and awake and confused. On O2 2L via nasal cannula and SaO2 100% noted. On clinical research monitor with ST and HR: 108's. Pt has bilateral soft restraint. checked circulation and comfort. Trying to release restraint when during care Pt still trying to touch NGT. Given verbal cueing. Pt has NGT on left Nares and running with tube feeding with Vital AF @ 55cc/hr. No residual noted. IV site intact and no sign of infiltration noted. On running with D5W @ 55cc/hr and Lasix drip @ 10cc/hr. Pt has Morales cath and yellowish urine urinated. Dressing is clean and dry on wound area. Change position. Placed fall precaution. Will continue to care plan.
[2019-04-26] MEDS: Tamsulosin 0.4mg cap ORAL SCH (20:34)
--- NOTE | 2019-04-26 22:00 | NUR ---
NURSE NOTES: Pt is resting on the bed and awake bry confused. Still trying to touch NGT. Reminded Pt do not touch NGT and any medical insurance claims specialist but he didn't understand at this time. Note moderated BM. Cleaned Pt and applied lotion and cream. Repositioned. Placed fall precaution. Will continue to monitor any change of condition.
--- NOTE | 2019-04-26 23:04 | NUR ---
RESPIRATORY NOTE: Pt placed on BiPAP for nightly use. Pt on BiPAP 18/5, backup rate 12, 30%. Pt on a Facial mask, skin intact, no redness/breakdowns noted. Foam tape applied on Pt's nosebridge/cheeks. is alert/awake, follows commands. B/S cleopatra. diminished, occasional crackles, nonproductive cough. BiPAP plugged into red outlet, alarms on & audible. Pt in no apparent distress at this time. Will continue to monitor pt.
[2019-04-27] VITALS (21 sets, daily range): BP systolic 96–130; BP diastolic 61–89
--- NOTE | 2019-04-27 | NUR ---
NURSE NOTES: Pt is resting on the bed and still slight agitated and confused. Denied pain at this time. On BiPAP 18/5 FiO2 30% and Sao2 97-98% noted. on running with Vital AF @ 55cc/hr and no residual noted. Given oral suction. Provided oral care. Placed fall precaution. Will continue to care plan.
--- NOTE | 2019-04-27 02:00 | NUR ---
NURSE NOTES: Pt is sleeping on the bed and no sign of acute distress noted. Tolerated well with current BIPAP setting. On Lasix drip with 10cc/hr. Repositioned. Provided food sleep environment. Placed fall precaution. Will continue to care plan.
[2019-04-27] MEDS: Albuterol/Ipratropium 3ml neb HHN SCH ×6 (02:51→23:19)
[2019-04-27] MEDS: Acetylcysteine 20% Soln 4ml HHN SCH ×6 (02:51→23:20)
--- NOTE | 2019-04-27 04:00 | NUR ---
NURSE NOTES: Morning care was done. Cleaned Pt and applied lotion and cream. Repositioned. Changed wound dressing. Tolerated well with current BIPAP setting. Placed fall precaution. Will continue to care plan.
--- NOTE | 2019-04-27 06:00 | NUR ---
NURSE NOTES: Pt is sleeping on the bed and no sign of acute distress noted. Tolerated well with current Vent setting. Collected blood sample. Repositioned. Will continue to monitor any change of condition.
[2019-04-27 06:10] LABS: BASOPHILS % (AUTO) 1.3 % (0.0-2.0); EOSINOPHILS % (AUTO) 8.6 % (0.0-3.0); HEMATOCRIT 25.8 % (42.0-52.0); HEMOGLOBIN 8.9 G/DL (14.2-18.0); MEAN CORPUSCULAR VOLUME 83 FL (80-99); MONOCYTES % (AUTO) 6.8 % (1.0-10.0); NEUTROPHILS % (AUTO) 66.3 % (45.0-75.0); PLATELET COUNT 293 K/UL (150-450); RED BLOOD COUNT 3.09 M/UL (4.70-6.10); RED CELL DISTRIBUTION WIDTH 14.3 % (11.6-14.8); WHITE BLOOD COUNT 6.3 K/UL (4.8-10.8)
[2019-04-27 06:45] LABS: ANION GAP 5 mmol/L (5-15); BLOOD UREA NITROGEN 29 mg/dL (7-18); CALCIUM 7.9 MG/DL (8.5-10.1); CARBON DIOXIDE 34 MMOL/L (21-32); CHLORIDE 98 MMOL/L (98-107); CREATININE 1.8 MG/DL (0.55-1.30); POTASSIUM 3.5 MMOL/L (3.5-5.1); SODIUM 137 MMOL/L (136-145)
--- NOTE | 2019-04-27 07:19 | NUR ---
RESPIRATORY NOTE: Received pt on Bipap facial mask, skin intact, no redness or breakdown noted. Pt on bipap 18/5, Backup rate 12. FiO2 30%. Pt is alert and awake, follow commands. B/s bilatedal diminished, non productive cough. Bipap plugged into red outlet, alarms are on and audible. [place] bedside. Tx given, no adverse effects. Will continue to monitor.
--- NOTE | 2019-04-27 07:20 | NUR ---
NURSE NOTES: Received pt from BLANCA Madison in stable condition without cardiopulmonary distress. Pt is awake in bed, opens eyes spontaneously, obeys commands, AAOx 2, bilat pupils 3mm PERRLA +. Pt noted in sinus tachycardia to surveillance system monitor, cap refill is 2 sec, bilat radial pulses are 2+ and bilat dorsalis pedis pulses 1 +, pt is afebrile. Pt now off bipap and on 2L O2 via NC. Bilat upper lung lobes are CTA and bilat lower lobes noted with fine crackles upon auscultation. Abd is flat and soft without tenderness. Left nares NGT noted running Vital AF 1.2 at 55 cc/hr without gastric residuals at this time. bowel sounds noted active to all abd quadrants. Pt has a guerra draining yellow urine Skin alterations noted. Pt has bilat soft wrist restraints, radial pulses palpable bilaterally and skin to both wrists noted intact. Pt has a 2 LFA 20g IVs running lasix drip at 10 cc/hr and D5W at 50 cc/hr. Bed is in lowest position, alarm on, side rails up x 3, call light within reach. Will continue to monitor pt.
--- NOTE | 2019-04-27 07:20 | NUR ---
HAND-OFF: Report given to BLANCA Gunn. Pt is resting on the bed and no sign of acute distress noted.
--- NOTE | 2019-04-27 07:30 | NUR ---
NURSE NOTES: Dr Gibson at bedside assessing pt, new orders placed to d/c lasix drip and D5W.
--- NOTE | 2019-04-27 07:35 | Urology Progress Note ---
Assessment/Plan Status: unchanged Assessment/Plan: 1. 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 2. Urinary retention. 3. Acute kidney injury, labile. 4. Hydronephrosis, likely chronic. 5. Proteinuria. 6. UTI and colonization. 7. Hematuria. monitor clinically maintain guerra, last replaced 04/10 hand irrigated and do PRN position is satisfactory monitor renal fxn, labile likely obst of bilateral distal ureters secondary to advanced prostate ca will need to see how aggressive pt and family want to be renal fxn improved with the new guerra consider ureteral stents or nephrostomies? flomax added abx as ordered may need to hold lovenox voiding trial at some point? d/w nursing staff family members want to take pt to [facility] Subjective Allergies: Coded Allergies: No Known Allergies (Unverified , 04/03/19) Subjective all noted, still in ICU Objective Last 24 Hour Vital Signs Date Time Temp Pulse Resp B/P (MAP) Pulse Ox O2 Delivery O2 Flow Rate FiO2 04/27/19 07:21 115 27 100 Nasal Cannula 2.0 28 119 23 100 04/27/19 07:21 99 Nasal Cannula 2.0 28 04/27/19 07:19 113 27 100 30 04/27/19 07:00 105 23 100/61 (74) 96 04/27/19 06:00 109 22 101/67 (78) 98 04/27/19 05:04 113 19 97 30 04/27/19 05:00 113 22 102/75 (84) 99 04/27/19 04:00 Bi-pap 04/27/19 04:00 30 04/27/19 04:00 98.6 108 20 99/65 (76) 100 04/27/19 04:00 113 04/27/19 03:06 111 25 100 Bi-Pap 30 04/27/19 03:00 114 21 100/69 (79) 100 04/27/19 02:51 113 23 97 Bi-Pap 30 04/27/19 02:51 113 23 97 30 04/27/19 02:00 114 22 96/70 (79) 97 04/27/19 01:00 116 24 104/68 (80) 98 04/27/19 00:50 109 24 98 30 04/27/19 00:00 98.0 114 25 101/63 (76) 97 04/27/19 00:00 30 04/27/19 00:00 106 04/27/19 00:00 Nasal Cannula 2.0 04/26/19 23:12 110 24 100 Bi-Pap 30 04/26/19 23:00 114 24 99/66 (77) 98 04/26/19 22:57 114 23 97 30 04/26/19 22:57 114 23 97 Bi-Pap 30 04/26/19 22:00 115 24 105/70 (82) 97 04/26/19 21:00 114 24 105/70 (82) 100 04/26/19 20:00 113 04/26/19 20:00 Nasal Cannula 2.0 04/26/19 20:00 98.2 110 25 99/68 (78) 100 04/26/19 20:00 2.0 04/26/19 19:07 111 25 100 Nasal Cannula 2.0 28 04/26/19 19:00 111 23 110/76 (87) 100 04/26/19 18:52 114 26 97 Nasal Cannula 2.0 28 04/26/19 18:52 97 Nasal Cannula 2.0 28 04/26/19 18:00 115 25 128/76 (93) 97 04/26/19 17:00 115 26 107/72 (84) 100 04/26/19 16:06 101/70 04/26/19 16:00 98.8 114 25 101/70 (80) 100 04/26/19 16:00 2.0 04/26/19 16:00 Nasal Cannula 2.0 04/26/19 15:51 118 04/26/19 15:00 116 24 108/72 (84) 100 04/26/19 14:38 115 25 100 Nasal Cannula 2.0 28 115 24 100 04/26/19 14:00 124 28 122/69 (86) 99 04/26/19 13:00 114 24 107/71 (83) 100 04/26/19 12:00 Simple Mask 2.0 04/26/19 12:00 2.0 04/26/19 12:00 117 04/26/19 12:00 98.6 111 25 107/67 (80) 98 04/26/19 11:00 115 23 104/70 (81) 100 04/26/19 10:45 117 26 100 Nasal Cannula 2.0 28 118 22 100 04/26/19 10:00 117 22 110/71 (84) 100 04/26/19 09:00 109 25 105/62 (76) 100 04/26/19 08:00 Simple Mask 2.0 04/26/19 08:00 2.0 04/26/19 08:00 98.8 115 27 103/68 (80) 100 04/26/19 07:58 115 Intake and Output 04/26/19 04/27/19 19:00 07:00 Intake Total 1575 ml 1198.6 ml Output Total 1585 ml 1315 ml Balance -10 ml -116.4 ml IV Total 715 ml 538.6 ml Tube Feeding 660 ml 660 ml Other 200 ml Output Urine Total 1585 ml 1315 ml # Bowel Movements 4 2 Microbiology Date/Time Source Procedure Growth Status 04/14/19 12:45 Blood Blood Culture - Final NO GROWTH AFTER 5 DAYS Complete 04/15/19 21:40 Sputum Gram Stain - Final Complete 04/15/19 21:40 Sputum Sputum Culture - Final NORMAL UPPER RESPIRATORY DAVID PRESENT Complete 04/18/19 17:00 Stool Clostridium difficile Toxin Assay - Final Complete 04/14/19 11:25 Urine,Random Urine Culture - Final NO GROWTH AFTER 48 HOURS Complete Current Medications Medications (Trade) Dose Ordered Sig/La Nena Route PRN Reason Start Time Stop Time Status Last Admin Dose Admin Acetaminophen (Tylenol) 650 mg Q6H PRN ORAL Mild Pain/Temp > 100.5 04/24/19 11:00 05/24/19 10:59 04/25/19 03:37 Acetylcysteine (Mucomyst) 200 mg Q4HRT N 04/18/19 11:00 05/18/19 10:59 04/27/19 07:21 Albuterol/ Ipratropium (Albuterol/ Ipratropium) 3 ml Q4HRT N 04/23/19 15:00 04/28/19 14:59 04/27/19 07:20 Cefepime HCl 1 gm/ Dextrose 55 ml @ 110 mls/hr Q24H IVPB 04/21/19 12:00 04/28/19 11:59 04/26/19 11:27 Enoxaparin Sodium (Lovenox) 40 mg DAILY SUBQ 04/25/19 09:00 05/25/19 08:59 04/26/19 08:43 Hydralazine HCl (Apresoline) 10 mg Q4H PRN IV SBP > 170mmHg 04/13/19 15:00 05/08/19 14:59 Lansoprazole (Prevacid) 30 mg DAILY ORAL 04/14/19 09:00 05/13/19 08:59 04/26/19 08:42 Memantine (Namenda) 5 mg BID ORAL 04/13/19 18:00 05/04/19 17:59 04/26/19 17:34 Norepinephrine Bitartrate 4 mg/ Dextrose 250 ml @ 0 mls/hr Q24H IV 04/13/19 17:00 05/13/19 16:59 04/14/19 22:57 Tamsulosin HCl (Flomax) 0.4 mg BEDTIME ORAL 04/13/19 21:00 05/13/19 20:59 04/26/19 20:34 Tramadol HCl (Ultram) 50 mg EVERY 8 HOURS PRN NG Moderate Pain (Pain Scale 4-6) 04/25/19 06:30 05/02/19 06:29 Laboratory Tests 04/27/19 05:50: White Blood Count 6.3, Red Blood Count 3.09L, Hemoglobin 8.9L, Hematocrit 25.8L , Mean Corpuscular Volume 83, Mean Corpuscular Hemoglobin 29.0, Mean Corpuscular Hemoglobin Concent 34.7, Red Cell Distribution Width 14.3, Platelet Count 293, Mean Platelet Volume 4.4L, Neutrophils (%) (Auto) 66.3, Lymphocytes ( %) (Auto) 17.0L, Monocytes (%) (Auto) 6.8, Eosinophils (%) (Auto) 8.6H, Basophils (%) (Auto) 1.3, Sodium Level 137, Potassium Level 3.5, Chloride Level 98, Carbon Dioxide Level 34H, Anion Gap 5, Blood Urea Nitrogen 29H, Creatinine 1.8H, Estimat Glomerular Filtration Rate 45.2, Glucose Level 125H, Calcium Level 7.9L Height (Feet): 5 Height (Inches): 7.00 Weight (Pounds): 146 Objective exam stable guerra indwelling, yellow/allegra urine CT A/P (04/10) noted Raz Root MD Apr 27, 2019 07:35
[2019-04-27] MEDS: Memantine 5 MG TAB ORAL SCH ×2 (08:39→17:56)
[2019-04-27] MEDS: Enoxaparin 40mg Inj SUBQ SCH (08:41)
--- NOTE | 2019-04-27 09:00 | NUR ---
NURSE NOTES: Dr Cortez at bedside assessing pt, made aware pt has been in consistent sinus tachycardia rhythm, no new orders placed at this time. Pt in no acute distress, will continue to monitor.
--- NOTE | 2019-04-27 09:06 | Cardiac Electrophysiology PN ---
Assessment/Plan Assessment/Plan 1. Status post 2 separate non infarctional juan antonio arrest with asystole. Both episodes happened in the setting of respiratory failure and off the Vent No evidence of ventricular tachycardia or ventricular fibrillation. Off any GARCÍA or AVN olivia EF 65%. All 3 troponins were less than 0.1. Watch for recurrence of bradycardia 2. Recurrent Respiratory failure, extubated 04/08/19, reintubated 04/13/19 and reextubated 04/19/19 3. History of stage III prostate cancer, followed by Dr. Monroy and Dr Root. Morales was changed. Usually follows up at [facility] 4. S/P Shock. Off Levophed on iv Abx. 5. Hypercalcemia due to prostate cancer. 6. Hypernatremia. 7. Anemia, s/p multiple PRBCs 8. Low K. Replace 9. Dysphagia, PEG by Dr. Lamb cancelled due to lack on consent NGT feeding 10. Pleural effusion, off Lasix drip. Family refused thoracentesis DW RN Subjective Subjective In ICU on 2 liter Nasal Cannula. No juan antonio yet. NGT feeding. Lasix drip DCed by Dr White Family wants to transfer to [facility] and refusing thoracentesis or PEG until patient transferred In restraints as was pulling on NGT Objective Last 24 Hour Vital Signs Date Time Temp Pulse Resp B/P (MAP) Pulse Ox O2 Delivery O2 Flow Rate FiO2 04/27/19 07:21 115 27 100 Nasal Cannula 2.0 28 119 23 100 04/27/19 07:21 99 Nasal Cannula 2.0 28 04/27/19 07:19 113 27 100 30 04/27/19 07:00 105 23 100/61 (74) 96 04/27/19 06:00 109 22 101/67 (78) 98 04/27/19 05:04 113 19 97 30 04/27/19 05:00 113 22 102/75 (84) 99 04/27/19 04:00 Bi-pap 04/27/19 04:00 30 04/27/19 04:00 98.6 108 20 99/65 (76) 100 04/27/19 04:00 113 04/27/19 03:06 111 25 100 Bi-Pap 30 04/27/19 03:00 114 21 100/69 (79) 100 04/27/19 02:51 113 23 97 Bi-Pap 30 04/27/19 02:51 113 23 97 30 04/27/19 02:00 114 22 96/70 (79) 97 04/27/19 01:00 116 24 104/68 (80) 98 04/27/19 00:50 109 24 98 30 04/27/19 00:00 98.0 114 25 101/63 (76) 97 04/27/19 00:00 30 04/27/19 00:00 106 04/27/19 00:00 Nasal Cannula 2.0 04/26/19 23:12 110 24 100 Bi-Pap 30 04/26/19 23:00 114 24 99/66 (77) 98 04/26/19 22:57 114 23 97 30 04/26/19 22:57 114 23 97 Bi-Pap 30 04/26/19 22:00 115 24 105/70 (82) 97 04/26/19 21:00 114 24 105/70 (82) 100 04/26/19 20:00 113 04/26/19 20:00 Nasal Cannula 2.0 04/26/19 20:00 98.2 110 25 99/68 (78) 100 04/26/19 20:00 2.0 04/26/19 19:07 111 25 100 Nasal Cannula 2.0 28 04/26/19 19:00 111 23 110/76 (87) 100 04/26/19 18:52 114 26 97 Nasal Cannula 2.0 28 04/26/19 18:52 97 Nasal Cannula 2.0 28 04/26/19 18:00 115 25 128/76 (93) 97 04/26/19 17:00 115 26 107/72 (84) 100 04/26/19 16:06 101/70 04/26/19 16:00 98.8 114 25 101/70 (80) 100 04/26/19 16:00 2.0 04/26/19 16:00 Nasal Cannula 2.0 04/26/19 15:51 118 04/26/19 15:00 116 24 108/72 (84) 100 04/26/19 14:38 115 25 100 Nasal Cannula 2.0 28 115 24 100 04/26/19 14:00 124 28 122/69 (86) 99 04/26/19 13:00 114 24 107/71 (83) 100 04/26/19 12:00 Simple Mask 2.0 04/26/19 12:00 2.0 04/26/19 12:00 117 04/26/19 12:00 98.6 111 25 107/67 (80) 98 04/26/19 11:00 115 23 104/70 (81) 100 04/26/19 10:45 117 26 100 Nasal Cannula 2.0 28 118 22 100 04/26/19 10:00 117 22 110/71 (84) 100 Intake and Output 04/26/19 04/27/19 19:00 07:00 Intake Total 1575 ml 1318.6 ml Output Total 1585 ml 1315 ml Balance -10 ml 3.6 ml IV Total 715 ml 658.6 ml Tube Feeding 660 ml 660 ml Other 200 ml Output Urine Total 1585 ml 1315 ml # Bowel Movements 4 2 Laboratory Tests Test 04/27/19 05:50 White Blood Count 6.3 K/UL (4.8-10.8) Red Blood Count 3.09 M/UL (4.70-6.10) L Hemoglobin 8.9 G/DL (14.2-18.0) L Hematocrit 25.8 % (42.0-52.0) L Mean Corpuscular Volume 83 FL (80-99) Mean Corpuscular Hemoglobin 29.0 PG (27.0-31.0) Mean Corpuscular Hemoglobin Concent 34.7 G/DL (32.0-36.0) Red Cell Distribution Width 14.3 % (11.6-14.8) Platelet Count 293 K/UL (150-450) Mean Platelet Volume 4.4 FL (6.5-10.1) L Neutrophils (%) (Auto) 66.3 % (45.0-75.0) Lymphocytes (%) (Auto) 17.0 % (20.0-45.0) L Monocytes (%) (Auto) 6.8 % (1.0-10.0) Eosinophils (%) (Auto) 8.6 % (0.0-3.0) H Basophils (%) (Auto) 1.3 % (0.0-2.0) Sodium Level 137 MMOL/L (136-145) Potassium Level 3.5 MMOL/L (3.5-5.1) Chloride Level 98 MMOL/L (98-107) Carbon Dioxide Level 34 MMOL/L (21-32) H Anion Gap 5 mmol/L (5-15) Blood Urea Nitrogen 29 mg/dL (7-18) H Creatinine 1.8 MG/DL (0.55-1.30) H Estimat Glomerular Filtration Rate 45.2 mL/min (>60) Glucose Level 125 MG/DL (74-106) H Calcium Level 7.9 MG/DL (8.5-10.1) L Objective HEENT: No JVD. NGT in LUNGS: Coarse rhonchi. CARDIOVASCULAR: Regular S1 and S2 ABDOMEN: Soft and nondistended. EXTREMITIES: No pitting edema. Nain Cortez MD Apr 27, 2019 09:06
--- NOTE | 2019-04-27 09:48 | Hematology/Onc Progress Note ---
Assessment/Plan Assessment/Plan # Prostate cancer stage IV with psa >700, cr is worse, hydronephrosis noted, seen by renal, Dr. White. --> i did received records from [facility]. has regional lymphadenopathy, s/p transrectal biopsy with Gleasons 5+5 (2010) in all cores, apparently has had a 3 year course of androgen deprivation from 2011- 2014.also status post RADIATION to the prostate, then lost to followup. Following surviellance psa 0.45-->65, in 10/2016, and up to 127 in 12/2016, Ct scan showed recurrence of disease with lad but no bony mets, started on lupron 01/2017, psa fell yo 73-->46, has been sarted on zytiga + prednisone, and now psa progression on zytiga, he started xtandi in 01/2019 Psa 87. He did not go through urethral stenting, he has deferred treatment with chemo. --> He is a very poor historian, I have talked to the sister --> imaging has been noted --> as per urology recs, reviewed --> poor prognosis given above history of treatment, defer transfer [facility] --> psa 737-->757 --> CT ABD 04/10: Evidence of advanced metastatic neoplasm likely secondary to prostate carcinoma. Extensive retroperitoneal and pelvic lymphadenopathy complicated by presence of bilateral hydroureteronephrosis. Extensive metastatic disease involving the bones also noted. Status post seed implant radiation therapy to the prostate gland. --> family wants to transfer to [facility] # Hypercalcemia -- now acutely worse --> trend Ca++ 8.1-->13-->12-->10.3-->10.7-->13.2 -->11-->10.5 --> ivf has been started --> as per nephrology --> calcitonin was given # Anemia due to underlying malignancy --> hgb trend as needed 9.2-->7-->10.9-->11-->9.7-->8.1-->8.6-->9.2 --> no hemolysis is noted --> no bleeding --> blood tx: 04/18, # Episode of generalized weakness --> on ivf --> pt as needed # Pleural effusion --> no consent for peg # Hypokalemia --> replete prn # Dehydration --> on ivf # Atrophic changes without evident intracranial hemorrhage. --> as per neuro, remains confused # Respiratory failure s/p vent now ext --> on bipap++ # Hypernatremia as well as low BUN --> on ivf # Poor prognosis # Dvt ppx lovenox sq # DC planning [facility] or facility Appreciate consultation and dW Rn Subjective Constitutional: Denies: no symptoms, chills, fever, malaise, weakness, other HEENT: Denies: no symptoms, eye pain, blurred vision, tearing, double vision, ear pain, ear discharge, nose pain, nose congestion, throat pain, throat swelling, mouth pain, mouth swelling, other Cardiovascular: Denies: no symptoms, chest pain, edema, irregular heart rate, lightheadedness, palpitations, syncope, other Respiratory: Denies: no symptoms, cough, shortness of breath, SOB with excertion, SOB at rest, sputum, wheezing, other Gastrointestinal/Abdominal: Denies: no symptoms, abdomen distended, abdominal pain, black stools, tarry stools, blood in stool, constipated, diarrhea, difficulty swallowing, nausea, poor appetite, poor fluid intake, rectal bleeding , vomiting, other Genitourinary: Denies: no symptoms, burning, discharge, frequency, flank pain, hematuria, incontinence, pain, urgency, other Endocrine: Denies: no symptoms, excessive sweating, flushing, intolerance to cold, intolerance to heat, increased hunger, increased thirst, increased urine, unexplained weight gain, unexplained weight loss, other Hematologic/Lymphatic: Denies: no symptoms, anemia, easy bleeding, easy bruising, adenopathy, other Allergies: Coded Allergies: No Known Allergies (Unverified , 04/03/19) Subjective 2/3: no events, apparently intubated today and transferred to the icu, will dw family 04/07: remains in the icu, critically ill, Ca++ 12, on vent, minimally responsive , on dopa, dw pcp and pulm 04/08: no major changes, no night sweats, labs have been reviewed, dw daughter, he is more alert 04/10: awake, no acute events ct abd reviewed, stool ob negative 04/12: labs reviewed, nc, tachy, ceftriaxone, no sob 04/13: lethargic, nc 3l, no acute distress, labs reviewed 04/14: Ca++ remains elev 13.2, De Amy aware, on calcitonin, on lovenox 04/15: no major changes, remains intubated, seen by cards, renal, pulm, dw Kellie, kcl ordered 04/16: tolerating meds well, no bleeding, on vent, is on simv mode, nicholas Pacheco Rn 04/17: icu, vent, h/h stable, no acute events, on cefepime 04/19: remains in icu and intubated, s/p blood, hgb 8.6, c diff negative 04/20: on bipap, hgb 8.6, no major changes, in icu, requires peg 04/21: urine is red tinged this am, of vent, with nc, no bleeding, labs noted 04/22: no major changes, no bleeding r chils, no consent for procedures 04/23: icu, failed to wean from bipap, h/h stable 04/24: no events, feeling better, dw uro, with guerra, labs noted, no bleeding 04/26: no bleeding, no f/c, no major changes, anemia panel noted 04/27: no major events, no bleeding, no fc, labs reviewed Objective Objective Current Medications Medications (Trade) Dose Ordered Sig/La Nena Route PRN Reason Start Time Stop Time Status Last Admin Dose Admin Acetaminophen (Tylenol) 650 mg Q6H PRN ORAL Mild Pain/Temp > 100.5 04/24/19 11:00 05/24/19 10:59 04/25/19 03:37 Acetylcysteine (Mucomyst) 200 mg Q4HRT [facility] 04/18/19 11:00 05/18/19 10:59 04/27/19 07:21 Albuterol/ Ipratropium (Albuterol/ Ipratropium) 3 ml Q4HRT N 04/23/19 15:00 04/28/19 14:59 04/27/19 07:20 Cefepime HCl 1 gm/ Dextrose 55 ml @ 110 mls/hr Q24H IVPB 04/21/19 12:00 04/28/19 11:59 04/26/19 11:27 Enoxaparin Sodium (Lovenox) 40 mg DAILY SUBQ 04/25/19 09:00 05/25/19 08:59 04/27/19 08:41 Hydralazine HCl (Apresoline) 10 mg Q4H PRN IV SBP > 170mmHg 04/13/19 15:00 05/08/19 14:59 Lansoprazole (Prevacid) 30 mg DAILY ORAL 04/14/19 09:00 05/13/19 08:59 04/27/19 08:39 Memantine (Namenda) 5 mg BID ORAL 04/13/19 18:00 05/04/19 17:59 04/27/19 08:39 Norepinephrine Bitartrate 4 mg/ Dextrose 250 ml @ 0 mls/hr Q24H IV 04/13/19 17:00 05/13/19 16:59 04/14/19 22:57 Tamsulosin HCl (Flomax) 0.4 mg BEDTIME ORAL 04/13/19 21:00 05/13/19 20:59 04/26/19 20:34 Tramadol HCl (Ultram) 50 mg EVERY 8 HOURS PRN NG Moderate Pain (Pain Scale 4-6) 04/25/19 06:30 05/02/19 06:29 Last 24 Hour Vital Signs Date Time Temp Pulse Resp B/P (MAP) Pulse Ox O2 Delivery O2 Flow Rate FiO2 04/27/19 07:21 115 27 100 Nasal Cannula 2.0 28 119 23 100 04/27/19 07:21 99 Nasal Cannula 2.0 28 04/27/19 07:19 113 27 100 30 04/27/19 07:00 105 23 100/61 (74) 96 04/27/19 06:00 109 22 101/67 (78) 98 04/27/19 05:04 113 19 97 30 04/27/19 05:00 113 22 102/75 (84) 99 04/27/19 04:00 Bi-pap 04/27/19 04:00 30 04/27/19 04:00 98.6 108 20 99/65 (76) 100 04/27/19 04:00 113 04/27/19 03:06 111 25 100 Bi-Pap 30 04/27/19 03:00 114 21 100/69 (79) 100 04/27/19 02:51 113 23 97 Bi-Pap 30 04/27/19 02:51 113 23 97 30 04/27/19 02:00 114 22 96/70 (79) 97 04/27/19 01:00 116 24 104/68 (80) 98 04/27/19 00:50 109 24 98 30 04/27/19 00:00 98.0 114 25 101/63 (76) 97 04/27/19 00:00 30 04/27/19 00:00 106 04/27/19 00:00 Nasal Cannula 2.0 04/26/19 23:12 110 24 100 Bi-Pap 30 04/26/19 23:00 114 24 99/66 (77) 98 04/26/19 22:57 114 23 97 30 04/26/19 22:57 114 23 97 Bi-Pap 30 04/26/19 22:00 115 24 105/70 (82) 97 04/26/19 21:00 114 24 105/70 (82) 100 04/26/19 20:00 113 04/26/19 20:00 Nasal Cannula 2.0 04/26/19 20:00 98.2 110 25 99/68 (78) 100 04/26/19 20:00 2.0 04/26/19 19:07 111 25 100 Nasal Cannula 2.0 28 04/26/19 19:00 111 23 110/76 (87) 100 04/26/19 18:52 114 26 97 Nasal Cannula 2.0 28 04/26/19 18:52 97 Nasal Cannula 2.0 28 04/26/19 18:00 115 25 128/76 (93) 97 04/26/19 17:00 115 26 107/72 (84) 100 04/26/19 16:06 101/70 04/26/19 16:00 98.8 114 25 101/70 (80) 100 04/26/19 16:00 2.0 04/26/19 16:00 Nasal Cannula 2.0 04/26/19 15:51 118 04/26/19 15:00 116 24 108/72 (84) 100 04/26/19 14:38 115 25 100 Nasal Cannula 2.0 28 115 24 100 04/26/19 14:00 124 28 122/69 (86) 99 04/26/19 13:00 114 24 107/71 (83) 100 04/26/19 12:00 Simple Mask 2.0 04/26/19 12:00 2.0 04/26/19 12:00 117 04/26/19 12:00 98.6 111 25 107/67 (80) 98 04/26/19 11:00 115 23 104/70 (81) 100 04/26/19 10:45 117 26 100 Nasal Cannula 2.0 28 118 22 100 04/26/19 10:00 117 22 110/71 (84) 100 04/26/19 09:00 109 25 105/62 (76) 100 04/26/19 08:00 Simple Mask 2.0 04/26/19 08:00 2.0 04/26/19 08:00 98.8 115 27 103/68 (80) 100 04/26/19 07:58 115 04/26/19 07:12 118 25 100 Nasal Cannula 2.0 28 120 22 97 04/26/19 07:11 97 Nasal Cannula 2.0 28 04/26/19 07:00 119 26 113/71 (85) 99 04/26/19 06:00 119 25 105/68 (80) 100 04/26/19 05:10 110 20 100 04/26/19 05:00 116 32 105/72 (83) 100 04/26/19 04:00 2.0 04/26/19 04:00 Bi-pap 04/26/19 04:00 99.0 115 31 107/66 (80) 97 04/26/19 03:56 115 04/26/19 03:00 123 29 127/78 (94) 100 04/26/19 02:55 118 18 96 04/26/19 02:51 120 18 100 Nasal Cannula 2.0 28 118 18 96 04/26/19 02:00 116 23 112/72 (85) 94 04/26/19 01:00 114 28 120/81 (94) 97 04/26/19 00:53 113 24 100 30 04/26/19 00:00 Bi-pap 04/26/19 00:00 98.5 105 22 101/64 (76) 95 04/25/19 23:30 108 04/25/19 23:00 113 26 113/74 (87) 100 04/25/19 22:49 112 18 95 Bi-Pap 30 115 21 100 30 04/25/19 22:00 116 29 118/80 (93) 100 04/25/19 21:00 115 27 109/70 (83) 100 04/25/19 20:00 2.0 04/25/19 20:00 Nasal Cannula 2.0 04/25/19 20:00 98.3 108 25 94/65 (75) 99 04/25/19 19:26 118 04/25/19 19:00 118 26 108/68 (81) 97 04/25/19 18:38 111 19 100 04/25/19 18:38 113 19 100 Nasal Cannula 2.0 28 111 19 100 04/25/19 18:37 99 Nasal Cannula 2.0 28 04/25/19 18:00 115 27 114/74 (87) 99 04/25/19 17:00 117 26 123/75 (91) 98 04/25/19 16:00 Nasal Cannula 2.0 04/25/19 16:00 98.0 109 24 108/63 (78) 100 04/25/19 15:23 110 04/25/19 15:00 107 26 100/60 (73) 99 04/25/19 14:20 111 25 100 Bi-Pap 30 110 24 100 04/25/19 14:00 111 28 114/71 (85) 99 04/25/19 13:00 111 26 111/68 (82) 99 04/25/19 12:29 108 22 100 04/25/19 12:24 2.0 04/25/19 12:00 Nasal Cannula 2.0 04/25/19 12:00 98.1 107 21 97/65 (76) 100 04/25/19 11:51 110 04/25/19 11:30 101 21 100 Bi-Pap 30 100 19 100 04/25/19 11:30 100 27 100 30 04/25/19 11:00 101 18 107/73 (84) 100 04/25/19 10:03 102 18 104/72 (83) 98 Intake and Output 04/26/19 04/27/19 19:00 07:00 Intake Total 1575 ml 1318.6 ml Output Total 1585 ml 1315 ml Balance -10 ml 3.6 ml IV Total 715 ml 658.6 ml Tube Feeding 660 ml 660 ml Other 200 ml Output Urine Total 1585 ml 1315 ml # Bowel Movements 4 2 Labs Test 04/25/19 06:31 04/25/19 09:20 04/26/19 05:15 04/27/19 05:50 White Blood Count 5.3 K/UL (4.8-10.8) 7.3 K/UL (4.8-10.8) 6.3 K/UL (4.8-10.8) Red Blood Count 3.16 M/UL (4.70-6.10) 3.27 M/UL (4.70-6.10) 3.09 M/UL (4.70-6.10) Hemoglobin 9.2 G/DL (14.2-18.0) 9.3 G/DL (14.2-18.0) 8.9 G/DL (14.2-18.0) Hematocrit 26.9 % (42.0-52.0) 27.6 % (42.0-52.0) 25.8 % (42.0-52.0) Mean Corpuscular Volume 85 FL (80-99) 84 FL (80-99) 83 FL (80-99) Mean Corpuscular Hemoglobin 29.2 PG (27.0-31.0) 28.5 PG (27.0-31.0) 29.0 PG (27.0-31.0) Mean Corpuscular Hemoglobin Concent 34.2 G/DL (32.0-36.0) 33.7 G/DL (32.0-36.0) 34.7 G/DL (32.0-36.0) Red Cell Distribution Width 14.8 % (11.6-14.8) 14.5 % (11.6-14.8) 14.3 % (11.6-14.8) Platelet Count 302 K/UL (150-450) 302 K/UL (150-450) 293 K/UL (150-450) Mean Platelet Volume 4.4 FL (6.5-10.1) 4.7 FL (6.5-10.1) 4.4 FL (6.5-10.1) Neutrophils (%) (Auto) 67.1 % (45.0-75.0) 64.4 % (45.0-75.0) 66.3 % (45.0-75.0) Lymphocytes (%) (Auto) 14.6 % (20.0-45.0) 15.8 % (20.0-45.0) 17.0 % (20.0-45.0) Monocytes (%) (Auto) 10.5 % (1.0-10.0) 12.5 % (1.0-10.0) 6.8 % (1.0-10.0) Eosinophils (%) (Auto) 6.5 % (0.0-3.0) 6.3 % (0.0-3.0) 8.6 % (0.0-3.0) Basophils (%) (Auto) 1.3 % (0.0-2.0) 1.0 % (0.0-2.0) 1.3 % (0.0-2.0) Sodium Level 145 MMOL/L (136-145) 142 MMOL/L (136-145) 137 MMOL/L (136-145) Potassium Level 3.5 MMOL/L (3.5-5.1) 3.1 MMOL/L (3.5-5.1) 3.5 MMOL/L (3.5-5.1) Chloride Level 106 MMOL/L (98-107) 102 MMOL/L (98-107) 98 MMOL/L (98-107) Carbon Dioxide Level 32 MMOL/L (21-32) 36 MMOL/L (21-32) 34 MMOL/L (21-32) Anion Gap 7 mmol/L (5-15) 4 mmol/L (5-15) 5 mmol/L (5-15) Blood Urea Nitrogen 21 mg/dL (7-18) 24 mg/dL (7-18) 29 mg/dL (7-18) Creatinine 1.8 MG/DL (0.55-1.30) 1.7 MG/DL (0.55-1.30) 1.8 MG/DL (0.55-1.30) Estimat Glomerular Filtration Rate 45.2 mL/min (>60) 48.2 mL/min (>60) 45.2 mL/min (>60) Glucose Level 116 MG/DL (74-106) 116 MG/DL (74-106) 125 MG/DL (74-106) Calcium Level 8.8 MG/DL (8.5-10.1) 8.4 MG/DL (8.5-10.1) 7.9 MG/DL (8.5-10.1) Arterial Blood pH 7.399 (7.350-7.450) Arterial Blood Partial Pressure CO2 57.8 mmHg (35.0-45.0) Arterial Blood Partial Pressure O2 88.3 mmHg (75.0-100.0) Arterial Blood HCO3 34.9 mmol/L (22.0-26.0) Arterial Blood Oxygen Saturation 96.2 % (95-100) Arterial Blood Base Excess 8.8 (-2-2) Antonio Test Positive Height (Feet): 5 Height (Inches): 7.00 Weight (Pounds): 146 Objective General: normal inspection, alert, Chronically Ill Respiratory: dry breath sounds b/l, ++ bipap Cardiovascular: regular rate, rhythm, no edema Gastrointestinal: normal inspection, normal bowel sounds Genitourinary: no CVA tenderness Mus: normal inspection, back normal, normal range of motion Neurologic: alert, motor strength/tone normal, oriented + confused Psychiatric: normal inspection, judgement/insight normal Skin: no rash Andreas Monroy MD Apr 27, 2019 09:48
--- NOTE | 2019-04-27 10:42 | General Progress Note ---
Assessment/Plan Problem List: (1) UTI (urinary tract infection) ICD Codes: N39.0 - Urinary tract infection, site not specified SNOMED: 35204054 (2) Weak ICD Codes: R53.1 - Weakness SNOMED: 75186338 (3) Anemia ICD Codes: D64.9 - Anemia, unspecified SNOMED: 721388564 (4) Dehydration ICD Codes: E86.0 - Dehydration SNOMED: 34162017, 80672678 (5) Episode of generalized weakness ICD Codes: R53.1 - Weakness SNOMED: 02300160 (6) Stage III adenocarcinoma of prostate ICD Codes: C61 - Malignant neoplasm of prostate SNOMED: 011186734, 04930066 Status: unchanged Assessment/Plan: o2 pulm tx pt diet abx iv fluid heme gi eval cbc bmp am Subjective Constitutional: Reports: weakness Allergies: Coded Allergies: No Known Allergies (Unverified , 04/03/19) All Systems: reviewed and negative except above Subjective o2nc ng in icu Objective Last 24 Hour Vital Signs Date Time Temp Pulse Resp B/P (MAP) Pulse Ox O2 Delivery O2 Flow Rate FiO2 04/27/19 10:00 106 24 105/73 (84) 100 04/27/19 09:00 108 24 99/68 (78) 100 04/27/19 08:00 2.0 04/27/19 08:00 98.8 114 24 105/71 (82) 99 04/27/19 08:00 104 04/27/19 07:21 115 27 100 Nasal Cannula 2.0 28 119 23 100 04/27/19 07:21 99 Nasal Cannula 2.0 28 04/27/19 07:19 113 27 100 30 04/27/19 07:00 105 23 100/61 (74) 96 04/27/19 06:00 109 22 101/67 (78) 98 04/27/19 05:04 113 19 97 30 04/27/19 05:00 113 22 102/75 (84) 99 04/27/19 04:00 Bi-pap 04/27/19 04:00 30 04/27/19 04:00 98.6 108 20 99/65 (76) 100 04/27/19 04:00 113 04/27/19 03:06 111 25 100 Bi-Pap 30 04/27/19 03:00 114 21 100/69 (79) 100 04/27/19 02:51 113 23 97 Bi-Pap 30 04/27/19 02:51 113 23 97 30 04/27/19 02:00 114 22 96/70 (79) 97 04/27/19 01:00 116 24 104/68 (80) 98 04/27/19 00:50 109 24 98 30 04/27/19 00:00 98.0 114 25 101/63 (76) 97 04/27/19 00:00 30 04/27/19 00:00 106 04/27/19 00:00 Nasal Cannula 2.0 04/26/19 23:12 110 24 100 Bi-Pap 30 04/26/19 23:00 114 24 99/66 (77) 98 04/26/19 22:57 114 23 97 30 04/26/19 22:57 114 23 97 Bi-Pap 30 04/26/19 22:00 115 24 105/70 (82) 97 04/26/19 21:00 114 24 105/70 (82) 100 04/26/19 20:00 113 04/26/19 20:00 Nasal Cannula 2.0 04/26/19 20:00 98.2 110 25 99/68 (78) 100 04/26/19 20:00 2.0 04/26/19 19:07 111 25 100 Nasal Cannula 2.0 28 04/26/19 19:00 111 23 110/76 (87) 100 04/26/19 18:52 114 26 97 Nasal Cannula 2.0 28 04/26/19 18:52 97 Nasal Cannula 2.0 28 04/26/19 18:00 115 25 128/76 (93) 97 04/26/19 17:00 115 26 107/72 (84) 100 04/26/19 16:06 101/70 04/26/19 16:00 98.8 114 25 101/70 (80) 100 04/26/19 16:00 2.0 04/26/19 16:00 Nasal Cannula 2.0 04/26/19 15:51 118 04/26/19 15:00 116 24 108/72 (84) 100 04/26/19 14:38 115 25 100 Nasal Cannula 2.0 28 115 24 100 04/26/19 14:00 124 28 122/69 (86) 99 04/26/19 13:00 114 24 107/71 (83) 100 04/26/19 12:00 Simple Mask 2.0 04/26/19 12:00 2.0 04/26/19 12:00 117 04/26/19 12:00 98.6 111 25 107/67 (80) 98 04/26/19 11:00 115 23 104/70 (81) 100 04/26/19 10:45 117 26 100 Nasal Cannula 2.0 28 118 22 100 Intake and Output 04/26/19 04/27/19 19:00 07:00 Intake Total 1575 ml 1318.6 ml Output Total 1585 ml 1315 ml Balance -10 ml 3.6 ml IV Total 715 ml 658.6 ml Tube Feeding 660 ml 660 ml Other 200 ml Output Urine Total 1585 ml 1315 ml # Bowel Movements 4 2 Laboratory Tests 04/27/19 05:50: White Blood Count 6.3, Red Blood Count 3.09L, Hemoglobin 8.9L, Hematocrit 25.8L , Mean Corpuscular Volume 83, Mean Corpuscular Hemoglobin 29.0, Mean Corpuscular Hemoglobin Concent 34.7, Red Cell Distribution Width 14.3, Platelet Count 293, Mean Platelet Volume 4.4L, Neutrophils (%) (Auto) 66.3, Lymphocytes ( %) (Auto) 17.0L, Monocytes (%) (Auto) 6.8, Eosinophils (%) (Auto) 8.6H, Basophils (%) (Auto) 1.3, Sodium Level 137, Potassium Level 3.5, Chloride Level 98, Carbon Dioxide Level 34H, Anion Gap 5, Blood Urea Nitrogen 29H, Creatinine 1.8H, Estimat Glomerular Filtration Rate 45.2, Glucose Level 125H, Calcium Level 7.9L Height (Feet): 5 Height (Inches): 7.00 Weight (Pounds): 146 General Appearance: lethargic EENT: normal ENT inspection Neck: normal alignment Cardiovascular: normal peripheral pulses, normal rate, regular rhythm Respiratory/Chest: chest wall non-tender, decreased breath sounds Abdomen: normal bowel sounds, non tender, soft Extremities: normal inspection Edema: no edema noted Arm (L), no edema noted Arm (R), no edema noted Leg (L), no edema noted Leg (R), no edema noted Pedal (L), no edema noted Pedal (R), no edema noted Generalized Neurologic: motor weakness Skin: normal pigmentation, warm/dry Sawyer Toussaint DO Apr 27, 2019 10:42
--- NOTE | 2019-04-27 10:53 | Pulmonology Progress Note ---
Assessment/Plan Assessment/Plan IMPRESSION: 1. Status post asystolic cardiac arrest. Again on 04/13/19 2. Respiratory failure, re-intubated; and now extubated 04/20/19 3. Altered mental status. Resolved 4. Hypernatremia. Corrected. 5. Hypokalemia . Corrected. 6. History of COPD. 7. Prostate CA. DISCUSSION: 1. Off BiPAP 2. Needs PEG 3. Doing well post extubation 5. Dc diuretics 6. Transfused CXR looking better; Needs PEG; would not advise PO diet again family refused PEG No longer on BiPAP has large left pleural effusion, family refuses thoracentesis. Will dc diuresis DC to [facility] at family request Ganesh Mathews M.D. Subjective Interval Events: Family refused PEG Constitutional: Reports: no symptoms HEENT: Repors: no symptoms Respiratory: Reports: no symptoms Cardiovascular: Reports: no symptoms Allergies: Coded Allergies: No Known Allergies (Unverified , 04/03/19) Objective Last 24 Hour Vital Signs Date Time Temp Pulse Resp B/P (MAP) Pulse Ox O2 Delivery O2 Flow Rate FiO2 04/27/19 10:00 106 24 105/73 (84) 100 04/27/19 09:00 108 24 99/68 (78) 100 04/27/19 08:00 2.0 04/27/19 08:00 98.8 114 24 105/71 (82) 99 04/27/19 08:00 104 04/27/19 07:21 115 27 100 Nasal Cannula 2.0 28 119 23 100 04/27/19 07:21 99 Nasal Cannula 2.0 28 04/27/19 07:19 113 27 100 30 04/27/19 07:00 105 23 100/61 (74) 96 04/27/19 06:00 109 22 101/67 (78) 98 04/27/19 05:04 113 19 97 30 04/27/19 05:00 113 22 102/75 (84) 99 04/27/19 04:00 Bi-pap 04/27/19 04:00 30 04/27/19 04:00 98.6 108 20 99/65 (76) 100 04/27/19 04:00 113 04/27/19 03:06 111 25 100 Bi-Pap 30 04/27/19 03:00 114 21 100/69 (79) 100 04/27/19 02:51 113 23 97 Bi-Pap 30 04/27/19 02:51 113 23 97 30 04/27/19 02:00 114 22 96/70 (79) 97 04/27/19 01:00 116 24 104/68 (80) 98 04/27/19 00:50 109 24 98 30 04/27/19 00:00 98.0 114 25 101/63 (76) 97 04/27/19 00:00 30 04/27/19 00:00 106 04/27/19 00:00 Nasal Cannula 2.0 04/26/19 23:12 110 24 100 Bi-Pap 30 04/26/19 23:00 114 24 99/66 (77) 98 04/26/19 22:57 114 23 97 30 04/26/19 22:57 114 23 97 Bi-Pap 30 04/26/19 22:00 115 24 105/70 (82) 97 04/26/19 21:00 114 24 105/70 (82) 100 04/26/19 20:00 113 04/26/19 20:00 Nasal Cannula 2.0 04/26/19 20:00 98.2 110 25 99/68 (78) 100 04/26/19 20:00 2.0 04/26/19 19:07 111 25 100 Nasal Cannula 2.0 28 04/26/19 19:00 111 23 110/76 (87) 100 04/26/19 18:52 114 26 97 Nasal Cannula 2.0 28 04/26/19 18:52 97 Nasal Cannula 2.0 28 04/26/19 18:00 115 25 128/76 (93) 97 04/26/19 17:00 115 26 107/72 (84) 100 04/26/19 16:06 101/70 04/26/19 16:00 98.8 114 25 101/70 (80) 100 04/26/19 16:00 2.0 04/26/19 16:00 Nasal Cannula 2.0 04/26/19 15:51 118 04/26/19 15:00 116 24 108/72 (84) 100 04/26/19 14:38 115 25 100 Nasal Cannula 2.0 28 115 24 100 04/26/19 14:00 124 28 122/69 (86) 99 04/26/19 13:00 114 24 107/71 (83) 100 04/26/19 12:00 Simple Mask 2.0 04/26/19 12:00 2.0 04/26/19 12:00 117 04/26/19 12:00 98.6 111 25 107/67 (80) 98 04/26/19 11:00 115 23 104/70 (81) 100 Intake and Output 04/26/19 04/27/19 19:00 07:00 Intake Total 1575 ml 1318.6 ml Output Total 1585 ml 1315 ml Balance -10 ml 3.6 ml IV Total 715 ml 658.6 ml Tube Feeding 660 ml 660 ml Other 200 ml Output Urine Total 1585 ml 1315 ml # Bowel Movements 4 2 General Appearance: no acute distress HEENT: normocephalic Respiratory/Chest: chest wall non-tender, lungs clear, decreased breath sounds Cardiovascular: normal peripheral pulses Abdomen: normal bowel sounds Laboratory Tests 04/27/19 05:50: White Blood Count 6.3, Red Blood Count 3.09L, Hemoglobin 8.9L, Hematocrit 25.8L , Mean Corpuscular Volume 83, Mean Corpuscular Hemoglobin 29.0, Mean Corpuscular Hemoglobin Concent 34.7, Red Cell Distribution Width 14.3, Platelet Count 293, Mean Platelet Volume 4.4L, Neutrophils (%) (Auto) 66.3, Lymphocytes ( %) (Auto) 17.0L, Monocytes (%) (Auto) 6.8, Eosinophils (%) (Auto) 8.6H, Basophils (%) (Auto) 1.3, Sodium Level 137, Potassium Level 3.5, Chloride Level 98, Carbon Dioxide Level 34H, Anion Gap 5, Blood Urea Nitrogen 29H, Creatinine 1.8H, Estimat Glomerular Filtration Rate 45.2, Glucose Level 125H, Calcium Level 7.9L Current Medications Medications (Trade) Dose Ordered Sig/[place] Nena Route PRN Reason Start Time Stop Time Status Last Admin Dose Admin Acetaminophen (Tylenol) 650 mg Q6H PRN ORAL Mild Pain/Temp > 100.5 04/24/19 11:00 05/24/19 10:59 04/25/19 03:37 Acetylcysteine (Mucomyst) 200 mg Q4HRT HHN 04/18/19 11:00 05/18/19 10:59 04/27/19 07:21 Albuterol/ Ipratropium (Albuterol/ Ipratropium) 3 ml Q4HRT HHN 04/23/19 15:00 04/28/19 14:59 04/27/19 07:20 Cefepime HCl 1 gm/ Dextrose 55 ml @ 110 mls/hr Q24H IVPB 04/21/19 12:00 04/28/19 11:59 04/26/19 11:27 Enoxaparin Sodium (Lovenox) 40 mg DAILY SUBQ 04/25/19 09:00 05/25/19 08:59 04/27/19 08:41 Hydralazine HCl (Apresoline) 10 mg Q4H PRN IV SBP > 170mmHg 04/13/19 15:00 05/08/19 14:59 Lansoprazole (Prevacid) 30 mg DAILY ORAL 04/14/19 09:00 05/13/19 08:59 04/27/19 08:39 Memantine (Namenda) 5 mg BID ORAL 04/13/19 18:00 05/04/19 17:59 04/27/19 08:39 Norepinephrine Bitartrate 4 mg/ Dextrose 250 ml @ 0 mls/hr Q24H IV 04/13/19 17:00 05/13/19 16:59 04/14/19 22:57 Tamsulosin HCl (Flomax) 0.4 mg BEDTIME ORAL 04/13/19 21:00 05/13/19 20:59 04/26/19 20:34 Tramadol HCl (Ultram) 50 mg EVERY 8 HOURS PRN NG Moderate Pain (Pain Scale 4-6) 04/25/19 06:30 05/02/19 06:29 Ganesh Mathews MD Apr 27, 2019 10:53
--- NOTE | 2019-04-27 11:14 | GI Progress Note ---
Assessment/Plan Problems: (1) Coffee ground emesis ICD Codes: K92.0 - Hematemesis SNOMED: 34558997 (2) Anemia ICD Codes: D64.9 - Anemia, unspecified SNOMED: 070392575 Status: unchanged Status Narrative Discussed with Dr. Lamb. Assessment/Plan (1) Coffee ground emesis (2) Anemia (3) metastatic prostate CA (4) respiratory failure extubated in the ICU NGTF ppi PEG on hold given patient tachycardia and tachypnea will follow The patient was seen and examined at bedside and all new and available data was reviewed in the patients chart. I agree with the above findings, impression and plan. (Patient seen earlier today. Signature stamp does not reflect patient encounter time.). - Tyrone Lamb MD Subjective Subjective limited Objective Last 24 Hour Vital Signs Date Time Temp Pulse Resp B/P (MAP) Pulse Ox O2 Delivery O2 Flow Rate FiO2 04/27/19 10:00 106 24 105/73 (84) 100 04/27/19 09:00 108 24 99/68 (78) 100 04/27/19 08:00 2.0 04/27/19 08:00 98.8 114 24 105/71 (82) 99 04/27/19 08:00 104 04/27/19 07:21 115 27 100 Nasal Cannula 2.0 28 119 23 100 04/27/19 07:21 99 Nasal Cannula 2.0 28 04/27/19 07:19 113 27 100 30 04/27/19 07:00 105 23 100/61 (74) 96 04/27/19 06:00 109 22 101/67 (78) 98 04/27/19 05:04 113 19 97 30 04/27/19 05:00 113 22 102/75 (84) 99 04/27/19 04:00 Bi-pap 04/27/19 04:00 30 04/27/19 04:00 98.6 108 20 99/65 (76) 100 04/27/19 04:00 113 04/27/19 03:06 111 25 100 Bi-Pap 30 04/27/19 03:00 114 21 100/69 (79) 100 04/27/19 02:51 113 23 97 Bi-Pap 30 04/27/19 02:51 113 23 97 30 04/27/19 02:00 114 22 96/70 (79) 97 2/24/20 01:00 116 24 104/68 (80) 98 04/27/19 00:50 109 24 98 30 04/27/19 00:00 98.0 114 25 101/63 (76) 97 04/27/19 00:00 30 04/27/19 00:00 106 04/27/19 00:00 Nasal Cannula 2.0 04/26/19 23:12 110 24 100 Bi-Pap 30 04/26/19 23:00 114 24 99/66 (77) 98 04/26/19 22:57 114 23 97 30 04/26/19 22:57 114 23 97 Bi-Pap 30 04/26/19 22:00 115 24 105/70 (82) 97 04/26/19 21:00 114 24 105/70 (82) 100 04/26/19 20:00 113 04/26/19 20:00 Nasal Cannula 2.0 04/26/19 20:00 98.2 110 25 99/68 (78) 100 04/26/19 20:00 2.0 04/26/19 19:07 111 25 100 Nasal Cannula 2.0 28 04/26/19 19:00 111 23 110/76 (87) 100 04/26/19 18:52 114 26 97 Nasal Cannula 2.0 28 04/26/19 18:52 97 Nasal Cannula 2.0 28 04/26/19 18:00 115 25 128/76 (93) 97 04/26/19 17:00 115 26 107/72 (84) 100 04/26/19 16:06 101/70 04/26/19 16:00 98.8 114 25 101/70 (80) 100 04/26/19 16:00 2.0 04/26/19 16:00 Nasal Cannula 2.0 04/26/19 15:51 118 04/26/19 15:00 116 24 108/72 (84) 100 04/26/19 14:38 115 25 100 Nasal Cannula 2.0 28 115 24 100 04/26/19 14:00 124 28 122/69 (86) 99 04/26/19 13:00 114 24 107/71 (83) 100 04/26/19 12:00 Simple Mask 2.0 04/26/19 12:00 2.0 04/26/19 12:00 117 04/26/19 12:00 98.6 111 25 107/67 (80) 98 Intake and Output 04/26/19 04/27/19 19:00 07:00 Intake Total 1575 ml 1318.6 ml Output Total 1585 ml 1315 ml Balance -10 ml 3.6 ml IV Total 715 ml 658.6 ml Tube Feeding 660 ml 660 ml Other 200 ml Output Urine Total 1585 ml 1315 ml # Bowel Movements 4 2 Laboratory Tests Test 04/27/19 05:50 White Blood Count 6.3 K/UL (4.8-10.8) Red Blood Count 3.09 M/UL (4.70-6.10) L Hemoglobin 8.9 G/DL (14.2-18.0) L Hematocrit 25.8 % (42.0-52.0) L Mean Corpuscular Volume 83 FL (80-99) Mean Corpuscular Hemoglobin 29.0 PG (27.0-31.0) Mean Corpuscular Hemoglobin Concent 34.7 G/DL (32.0-36.0) Red Cell Distribution Width 14.3 % (11.6-14.8) Platelet Count 293 K/UL (150-450) Mean Platelet Volume 4.4 FL (6.5-10.1) L Neutrophils (%) (Auto) 66.3 % (45.0-75.0) Lymphocytes (%) (Auto) 17.0 % (20.0-45.0) L Monocytes (%) (Auto) 6.8 % (1.0-10.0) Eosinophils (%) (Auto) 8.6 % (0.0-3.0) H Basophils (%) (Auto) 1.3 % (0.0-2.0) Sodium Level 137 MMOL/L (136-145) Potassium Level 3.5 MMOL/L (3.5-5.1) Chloride Level 98 MMOL/L (98-107) Carbon Dioxide Level 34 MMOL/L (21-32) H Anion Gap 5 mmol/L (5-15) Blood Urea Nitrogen 29 mg/dL (7-18) H Creatinine 1.8 MG/DL (0.55-1.30) H Estimat Glomerular Filtration Rate 45.2 mL/min (>60) Glucose Level 125 MG/DL (74-106) H Calcium Level 7.9 MG/DL (8.5-10.1) L Height (Feet): 5 Height (Inches): 7.00 Weight (Pounds): 146 General Appearance: WD/WN, no apparent distress, alert Cardiovascular: normal rate Respiratory/Chest: normal breath sounds, no respiratory distress Abdominal Exam: normal bowel sounds, non tender, soft Extremities: normal range of motion, non-tender Claudia Franklin NP Apr 27, 2019 11:14
--- NOTE | 2019-04-27 11:30 | NUR ---
NURSE NOTES: Pt repositioned and oral care provided, no acute distress noted. 1 large soft brown BM noted, pt cleaned. Will continue to monitor.
--- NOTE | 2019-04-27 11:55 | Infectious Diseases Prog Note ---
Assessment/Plan Assessment/Plan Assessment: Shock, recurrent- off pressors -04/20 CXR: Interim extubation. Increased left greater than right pleural fluid Probable PNA -04/21 CXR:Shifting infiltrates on the right, with increased hazy midlung infiltrate, improved right basilar consolidation or atelectasis or pleural fluid. Slightly increased generalized mild interstitial congestion. Stable large left pleural effusion Low grade fever; SP Mild leukocytosis, recurrent- SP -04/15 sp cx normal resp sharyn (prelim) -04/14 u/a wbc 10-15, nit neg, leuk +3; ucx Neg CXR: Interim development of complete right upper lobe atelectasis. Nonspecific diffuse hazy left lung opacity, likely mild pulmonary edema. -04/07 Bcx NTD u/a wbc tnct, nit neg, leuk +; ucx neg -04/06 CXR: Interval resolution of right apical density. This suggests the diagnosis was atelectasis rather than an apical cap from blood, which was suggested as a possibility on the prior report. The right upper lobe atelectasis has resolved. Suspicion of new atelectasis at the right lung base. Sepsis UTI B/l hydroureteronephrosis -04/10 CT abd/p: Evidence of advanced metastatic neoplasm likely secondary to prostate carcinoma. Extensive retroperitoneal and pelvic lymphadenopathy complicated by presence of bilateral hydroureteronephrosis. Extensive metastatic disease involving the bones also noted. Small left pleural effusion. Right trace right pleural effusion. Right inguinal hernia containing a small amount of fluid. Alternatively this could represent part of the testis. Anasarca. -u/a wbc 20-30, nit +, leuk +3; ucx >100k E.coli (R amp, bactrim; otherwise S) Probable Aspiration pneumonitis vs PNA -04/08 CXR: Patchy perihilar disease which may be asymmetric interstitial edema or infiltrate unchanged. Interval resolution of right basal atelectasis. -04/07 sp cx normal sharyn(prelim) s/p recent fall s/p bradycardia>cardiac arrest 04/13 s/p asystole cardiac arrest 04/06 VDRF; s/p extubation 04/08 VDRF 04/13; sp extubation 04/19 LETA Hypokalemia prostate CA stage IV, mets to bone chronic indwelling guerra catheter Plan: -Continue Cefepime #14/ for probable PNA ( may DC AB Rx in AM ) -04/17 SP Vanc IV #4 -04/13 SP Ceftriaxone #4 - 04/10 Sp ZOsyn #4 -/ SP IV Vancomycin #3 -2/ SP Ceftriaxone #4 -f/u cx -Monitor CBC/CMP, temperatures -aspiration precautions -Cards, renal, Uro, pulm f/u -ICU care -poor px- consider re-evaluation of goals of care- ?Hospice -CXR - possible transfer out to [facility] Thank you for this consultation. Will continue to follow along with you. Subjective Allergies: Coded Allergies: No Known Allergies (Unverified , 04/03/19) Subjective comfortable probable trander out of ICU Objective Vital Signs Last 24 Hour Vital Signs Date Time Temp Pulse Resp B/P (MAP) Pulse Ox O2 Delivery O2 Flow Rate FiO2 04/27/19 11:00 106 24 111/77 (88) 100 04/27/19 10:00 106 24 105/73 (84) 100 04/27/19 09:00 108 24 99/68 (78) 100 04/27/19 08:00 2.0 04/27/19 08:00 98.8 114 24 105/71 (82) 99 04/27/19 08:00 104 04/27/19 07:21 115 27 100 Nasal Cannula 2.0 28 119 23 100 04/27/19 07:21 99 Nasal Cannula 2.0 28 04/27/19 07:19 113 27 100 30 04/27/19 07:00 105 23 100/61 (74) 96 04/27/19 06:00 109 22 101/67 (78) 98 04/27/19 05:04 113 19 97 30 04/27/19 05:00 113 22 102/75 (84) 99 04/27/19 04:00 Bi-pap 04/27/19 04:00 30 04/27/19 04:00 98.6 108 20 99/65 (76) 100 04/27/19 04:00 113 04/27/19 03:06 111 25 100 Bi-Pap 30 04/27/19 03:00 114 21 100/69 (79) 100 04/27/19 02:51 113 23 97 Bi-Pap 30 04/27/19 02:51 113 23 97 30 04/27/19 02:00 114 22 96/70 (79) 97 04/27/19 01:00 116 24 104/68 (80) 98 04/27/19 00:50 109 24 98 30 04/27/19 00:00 98.0 114 25 101/63 (76) 97 04/27/19 00:00 30 04/27/19 00:00 106 04/27/19 00:00 Nasal Cannula 2.0 04/26/19 23:12 110 24 100 Bi-Pap 30 04/26/19 23:00 114 24 99/66 (77) 98 04/26/19 22:57 114 23 97 30 04/26/19 22:57 114 23 97 Bi-Pap 30 04/26/19 22:00 115 24 105/70 (82) 97 04/26/19 21:00 114 24 105/70 (82) 100 04/26/19 20:00 113 04/26/19 20:00 Nasal Cannula 2.0 04/26/19 20:00 98.2 110 25 99/68 (78) 100 04/26/19 20:00 2.0 04/26/19 19:07 111 25 100 Nasal Cannula 2.0 28 04/26/19 19:00 111 23 110/76 (87) 100 04/26/19 18:52 114 26 97 Nasal Cannula 2.0 28 04/26/19 18:52 97 Nasal Cannula 2.0 28 04/26/19 18:00 115 25 128/76 (93) 97 04/26/19 17:00 115 26 107/72 (84) 100 04/26/19 16:06 101/70 04/26/19 16:00 98.8 114 25 101/70 (80) 100 04/26/19 16:00 2.0 04/26/19 16:00 Nasal Cannula 2.0 04/26/19 15:51 118 04/26/19 15:00 116 24 108/72 (84) 100 04/26/19 14:38 115 25 100 Nasal Cannula 2.0 28 115 24 100 04/26/19 14:00 124 28 122/69 (86) 99 04/26/19 13:00 114 24 107/71 (83) 100 04/26/19 12:00 Simple Mask 2.0 04/26/19 12:00 2.0 04/26/19 12:00 117 04/26/19 12:00 98.6 111 25 107/67 (80) 98 Height (Feet): 5 Height (Inches): 7.00 Weight (Pounds): 146 Respiratory/Chest: normal breath sounds Cardiovascular: normal peripheral pulses, regular rhythm, no JVD Abdomen: non distended Laboratory Tests Test 04/27/19 05:50 White Blood Count 6.3 K/UL (4.8-10.8) Red Blood Count 3.09 M/UL (4.70-6.10) L Hemoglobin 8.9 G/DL (14.2-18.0) L Hematocrit 25.8 % (42.0-52.0) L Mean Corpuscular Volume 83 FL (80-99) Mean Corpuscular Hemoglobin 29.0 PG (27.0-31.0) Mean Corpuscular Hemoglobin Concent 34.7 G/DL (32.0-36.0) Red Cell Distribution Width 14.3 % (11.6-14.8) Platelet Count 293 K/UL (150-450) Mean Platelet Volume 4.4 FL (6.5-10.1) L Neutrophils (%) (Auto) 66.3 % (45.0-75.0) Lymphocytes (%) (Auto) 17.0 % (20.0-45.0) L Monocytes (%) (Auto) 6.8 % (1.0-10.0) Eosinophils (%) (Auto) 8.6 % (0.0-3.0) H Basophils (%) (Auto) 1.3 % (0.0-2.0) Sodium Level 137 MMOL/L (136-145) Potassium Level 3.5 MMOL/L (3.5-5.1) Chloride Level 98 MMOL/L (98-107) Carbon Dioxide Level 34 MMOL/L (21-32) H Anion Gap 5 mmol/L (5-15) Blood Urea Nitrogen 29 mg/dL (7-18) H Creatinine 1.8 MG/DL (0.55-1.30) H Estimat Glomerular Filtration Rate 45.2 mL/min (>60) Glucose Level 125 MG/DL (74-106) H Calcium Level 7.9 MG/DL (8.5-10.1) L Current Medications Medications (Trade) Dose Ordered Sig/[place]ena Route PRN Reason Start Time Stop Time Status Last Admin Dose Admin Acetaminophen (Tylenol) 650 mg Q6H PRN ORAL Mild Pain/Temp > 100.5 04/24/19 11:00 05/24/19 10:59 04/25/19 03:37 Acetylcysteine (Mucomyst) 200 mg Q4HRT N 04/18/19 11:00 05/18/19 10:59 04/27/19 07:21 Albuterol/ Ipratropium (Albuterol/ Ipratropium) 3 ml Q4HRT N 04/23/19 15:00 04/28/19 14:59 04/27/19 07:20 Cefepime HCl 1 gm/ Dextrose 55 ml @ 110 mls/hr Q24H IVPB 04/21/19 12:00 04/28/19 11:59 04/26/19 11:27 Enoxaparin Sodium (Lovenox) 40 mg DAILY SUBQ 04/25/19 09:00 05/25/19 08:59 04/27/19 08:41 Hydralazine HCl (Apresoline) 10 mg Q4H PRN IV SBP > 170mmHg 04/13/19 15:00 05/08/19 14:59 Lansoprazole (Prevacid) 30 mg DAILY ORAL 04/14/19 09:00 05/13/19 08:59 04/27/19 08:39 Memantine (Namenda) 5 mg BID ORAL 04/13/19 18:00 05/04/19 17:59 04/27/19 08:39 Norepinephrine Bitartrate 4 mg/ Dextrose 250 ml @ 0 mls/hr Q24H IV 04/13/19 17:00 05/13/19 16:59 04/14/19 22:57 Tamsulosin HCl (Flomax) 0.4 mg BEDTIME ORAL 04/13/19 21:00 05/13/19 20:59 04/26/19 20:34 Tramadol HCl (Ultram) 50 mg EVERY 8 HOURS PRN NG Moderate Pain (Pain Scale 4-6) 04/25/19 06:30 05/02/19 06:29 Bryce Osorio MD Apr 27, 2019 11:55
--- NOTE | 2019-04-27 12:00 | NUR ---
NURSE NOTES: Dr Mathews at bedside assessing pt, new order placed to transfer pt to [facility]. Charge nurse Judy made aware.
[2019-04-27] MEDS: Cefepime HCl 1 GM in D5W 55 ML IVPB SCH (12:02)
--- NOTE | 2019-04-27 12:45 | NUR ---
NURSE NOTES: Dr Acevedo came in to see pt and confirmed ST eval follow up scheduled for today. Nena Horta to see pt today for f/u.
--- NOTE | 2019-04-27 13:00 | NUR ---
NURSE NOTES: Dr Osorio at bedside assessing pt.
--- NOTE | 2019-04-27 13:02 | Surgery Progress Note ---
Surgery Progress Note Subjective Procedure Performed right femoral central venous catheter insertion Additional Comments doing well slowly improving no n/v/f/c tolerating tube feeds +bowel function plan for swallow eval today repeat Objective Last 24 Hour Vital Signs Date Time Temp Pulse Resp B/P (MAP) Pulse Ox O2 Delivery O2 Flow Rate FiO2 04/27/19 12:13 110 20 100 Nasal Cannula 2.0 28 115 20 96 04/27/19 12:00 2.0 04/27/19 12:00 98.2 110 20 111/72 (85) 100 04/27/19 12:00 109 04/27/19 11:00 106 24 111/77 (88) 100 04/27/19 10:00 106 24 105/73 (84) 100 04/27/19 09:00 108 24 99/68 (78) 100 04/27/19 08:00 2.0 04/27/19 08:00 98.8 114 24 105/71 (82) 99 04/27/19 08:00 104 04/27/19 07:21 115 27 100 Nasal Cannula 2.0 28 119 23 100 04/27/19 07:21 99 Nasal Cannula 2.0 28 04/27/19 07:19 113 27 100 30 04/27/19 07:00 105 23 100/61 (74) 96 04/27/19 06:00 109 22 101/67 (78) 98 04/27/19 05:04 113 19 97 30 04/27/19 05:00 113 22 102/75 (84) 99 04/27/19 04:00 Bi-pap 04/27/19 04:00 30 04/27/19 04:00 98.6 108 20 99/65 (76) 100 04/27/19 04:00 113 04/27/19 03:06 111 25 100 Bi-Pap 30 04/27/19 03:00 114 21 100/69 (79) 100 04/27/19 02:51 113 23 97 Bi-Pap 30 04/27/19 02:51 113 23 97 30 04/27/19 02:00 114 22 96/70 (79) 97 04/27/19 01:00 116 24 104/68 (80) 98 04/27/19 00:50 109 24 98 30 04/27/19 00:00 98.0 114 25 101/63 (76) 97 04/27/19 00:00 30 04/27/19 00:00 106 04/27/19 00:00 Nasal Cannula 2.0 04/26/19 23:12 110 24 100 Bi-Pap 30 04/26/19 23:00 114 24 99/66 (77) 98 04/26/19 22:57 114 23 97 30 04/26/19 22:57 114 23 97 Bi-Pap 30 04/26/19 22:00 115 24 105/70 (82) 97 04/26/19 21:00 114 24 105/70 (82) 100 04/26/19 20:00 113 04/26/19 20:00 Nasal Cannula 2.0 04/26/19 20:00 98.2 110 25 99/68 (78) 100 04/26/19 20:00 2.0 04/26/19 19:07 111 25 100 Nasal Cannula 2.0 28 04/26/19 19:00 111 23 110/76 (87) 100 04/26/19 18:52 114 26 97 Nasal Cannula 2.0 28 04/26/19 18:52 97 Nasal Cannula 2.0 28 04/26/19 18:00 115 25 128/76 (93) 97 04/26/19 17:00 115 26 107/72 (84) 100 04/26/19 16:06 101/70 04/26/19 16:00 98.8 114 25 101/70 (80) 100 04/26/19 16:00 2.0 04/26/19 16:00 Nasal Cannula 2.0 04/26/19 15:51 118 04/26/19 15:00 116 24 108/72 (84) 100 04/26/19 14:38 115 25 100 Nasal Cannula 2.0 28 115 24 100 04/26/19 14:00 124 28 122/69 (86) 99 04/26/19 13:00 114 24 107/71 (83) 100 I&O Intake and Output 04/26/19 04/27/19 19:00 07:00 Intake Total 1575 ml 1318.6 ml Output Total 1585 ml 1315 ml Balance -10 ml 3.6 ml IV Total 715 ml 658.6 ml Tube Feeding 660 ml 660 ml Other 200 ml Output Urine Total 1585 ml 1315 ml # Bowel Movements 4 2 Dressing: dry Wound: clean Cardiovascular: RSR Respiratory: clear, decreased breath sounds Abdomen: soft, non-tender, present bowel sounds Extremities: no edema, no tenderness, no cyanosis Laboratory Tests Test 04/27/19 05:50 White Blood Count 6.3 K/UL (4.8-10.8) Red Blood Count 3.09 M/UL (4.70-6.10) L Hemoglobin 8.9 G/DL (14.2-18.0) L Hematocrit 25.8 % (42.0-52.0) L Mean Corpuscular Volume 83 FL (80-99) Mean Corpuscular Hemoglobin 29.0 PG (27.0-31.0) Mean Corpuscular Hemoglobin Concent 34.7 G/DL (32.0-36.0) Red Cell Distribution Width 14.3 % (11.6-14.8) Platelet Count 293 K/UL (150-450) Mean Platelet Volume 4.4 FL (6.5-10.1) L Neutrophils (%) (Auto) 66.3 % (45.0-75.0) Lymphocytes (%) (Auto) 17.0 % (20.0-45.0) L Monocytes (%) (Auto) 6.8 % (1.0-10.0) Eosinophils (%) (Auto) 8.6 % (0.0-3.0) H Basophils (%) (Auto) 1.3 % (0.0-2.0) Sodium Level 137 MMOL/L (136-145) Potassium Level 3.5 MMOL/L (3.5-5.1) Chloride Level 98 MMOL/L (98-107) Carbon Dioxide Level 34 MMOL/L (21-32) H Anion Gap 5 mmol/L (5-15) Blood Urea Nitrogen 29 mg/dL (7-18) H Creatinine 1.8 MG/DL (0.55-1.30) H Estimat Glomerular Filtration Rate 45.2 mL/min (>60) Glucose Level 125 MG/DL (74-106) H Calcium Level 7.9 MG/DL (8.5-10.1) L Plan Problems: (1) Cardiac arrest Assessment & Plan: Acute deterioration Cardiovascular lopez ACLS required for resuscitation Still full code Hypotensive intensive care unit requiring a new central venous catheter see note Antibiotics as per infectious caries cont current treatment improving trend labs diet as tolerated improving on bipap may require intubation if so will recommend trach will follow with fermin cont tube feeds lasix gtt family does not want thora repeat swallow may consider po intake for comfort measure does not want peg thank you (2) Stage III adenocarcinoma of prostate Assessment & Plan: patient with state 3 prostate cancer pending treatment at [facility] [place]) unlikely related to acute cardiac arrest this am abd exam with mild distention no acute surgical intervention planned onc input improving extubated diet as tolerated thank you will follow with Jay Conrad Apr 27, 2019 13:02
--- NOTE | 2019-04-27 13:43 | NUR ---
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
--- NOTE | 2019-04-27 14:00 | NUR ---
NURSE NOTES: Pt repositioned, no acute distress noted.
--- NOTE | 2019-04-27 15:15 | NUR ---
NOTES: REFERRED FOR SWALLOW EVAL BY DR KIRKLAND, SEE FULL REPORT. 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 ON 04/13 NGT D/C AND STARTED ON LIQUIFIED PUREED NECTAR THICK SOUP BUT DESAT TO 60s AND CODED CARDIAC ARREST FAUSTO INTUBATED AND PLACED ON BIPAP 04/20/19. CXR 04/26 PERSISTENT LAYER LEFT PLEURAL EFFUSION VS PULMONARY EDEMA. ATELECTASIS VS INFILTRATE MID L LUNG BASE. H/O DEMENTIA MEDS (HEAD CR MILD CHRONIC SMALL VESSEL ISCHEMIC CHANGES AND CEREBRAL VOLUME LOSS), MET STAGE 3 ADENOCARCINOMA PROSTATE CANCER, WT LOSS AND POOR INTAKE, COPD, HTN, CARDIAC D/O. PRIOR TO ADMIT FROM HOME ? DIET BUT WHEN [place] [facility] [place] A MILD/MOD OP DYSPHAGIA AND IT WAS RECOMMENDED THAT HE BE PLACED ON PUREED AND NECTAR THICK LIQUIDS BUT GIVEN NGT UNTIL 04/13 PLACED ON LIQUIFIED PUREED LIKE NECTAR THICK SOUP, THEN HAD CARDIAC ARREST AND INTUBATED AND STARTED BACK ON NGT. NOW HAS MODERATE SIZED NGT AND NPO. ALERT BUT CONFUSED, TRYING TO GET OUT OF BED. INITIAL IMPRESSIONS: S/S OF AT LEAST A MILD OROPHARYNGEAL DYSPHAGIA WITH INCREASED TRANSIT TIMES GIVEN THIN LIQUIDS SEQUENTIAL SIPS ONLY ABLE TO TAKE A FEW SIPS AND NEEDED TO STOP AND BREATHE (GETS SOB AT REST 26 BPM AT TIMES AND WITH PO SEQUENTIAL SIPS GOES HIGHER TO 30) NO OVERT ASPIRATION BUT HAS RISK DUE TO RESP CHALLENGES AND INCOORDINATION (CAN INHALE AND ASPIRATE IF ABOVE 25 BPM) GIVEN NECTAR THICK LIQUIDS ONE SIP VIA CUP OR STRAW, NO OVERT S/S OF ASPIRATION AND GROSSLY FUNCTIONAL SWALLOW WITH FAIR HYOLARYNGEAL EXCURSION (ONE SIP AT A TIME NO CHANGE IN RESP RATE). GIVEN PUREED TSP, TENDS TO CHEW LONGER 4-6 SEC AND UNNECESSARILY, NO OVERT ORAL RESIUDE NOR S/S OF ASPIRATION. SLOWER CHEWING WITH MASTICATED SOLIDS (1/2 CRACKER) AND GETS SOB 30BPM NEEDS LIQUID WASH TO CLEAR X2 WITH MILD ORAL RESIDUE MID TONGUE NO OVERT ASPIRATION. HAS SILENT ASP RISK DUE TO DEMENTIA DX AND COPD POOR AND SLOW INTAKE PROBABLE (REFUSED MORE PO TRIALS AND H/O POOR INTAKE) RECOMMENDATIONS GIVEN THAT PATIENT WANTS PO FOR QUALITY OF LIFE, CONSIDER INITIATING PUREED AND NECTAR THICK LIQUIDS WITH HIGH RUBEN SUP AND ONE TO ONE FEEDING AND ASPIRATION AND REFLUX PRECAUTIONS. PER RD REGULAR DIET TYPE AND ENSURE ENLIVE RECOMMENDED. CONTINUE WITH NONORAL FEEDINGS SUPPLEMENT OR PRIMARY MODE OF NUTRITION/HYDRATION. CONSIDER R/O SILENT ASP AND FURTHER ASSESSING SWALLOW WITH MOD BARIUM SWALLOW STUDY WHEN STABLE AND READY EDUCATED/TRAINED BLANCA JOHNSON IN POSTED PRECAUTIONS D/W DR KIRKLAND WHO AGREES WITH RECOMMENDATIONS
--- NOTE | 2019-04-27 16:00 | NUR ---
NURSE NOTES: Pt repositioned, no acute distress noted at this time. 1 large soft brown BM noted. Pt cleaned.
--- NOTE | 2019-04-27 18:00 | NUR ---
NURSE NOTES: Pt repositoned, no acute distress noted.
--- NOTE | 2019-04-27 18:15 | Progress Note ---
DATE: 04/27/2019 SUBJECTIVE: This is a 73-year-old male patient with generalized weakness. The patient does have some mood lability, confusion, and disorganized thought process, decline in cognition below his baseline, altered mental status, confusion, so goal is to prevent any further decline in his cognition. DIAGNOSIS: Major depressive disorder, mild, recurrent with psychotic features, rule out dementia with psychosis. PLAN: Treat with Namenda 5 mg twice a day, Ativan 1 every 6 hours p.r.n. anxiety and agitation. A 20 minutes of insight-oriented psychotherapy to try to help this patient have understand of medical and cognitive condition so he has better impulse control and behavior in the unit. Chart reviewed. Discussed with staff. Seen and assessed at bedside. Cherise Palma M.D. DR: Alli JOB#: [id number] CC:
--- NOTE | 2019-04-27 19:54 | NUR ---
TRANSFER TO [facility] Patient transferred to [facility] in stable condition, per Dr Mathews. Report and belongings given to Gamaliel. Family informed of transfer. Addendum: 04/27/19 at 6 by Zoë Gunn RN Pt hooked to tele monitor.
--- NOTE | 2019-04-27 20:00 | NUR ---
NURSE NOTES: Received patient and report from BLANCA Camp. Patient is awake, alert and oriented x2, with periods of confusion, repetitive with his thoughts. On 5L/NC, O2 saturating at 100%. Noted left nare NGT in place, patent. Feeding on hold. Morales catheter in place and draining, secured on left thigh. Left forearm 20G IV running TKO. Noted bilateral soft wrist restraints for safety, per MD order. Safety measures in place; bed locked and in lowest position. HOB kept elevated 30 degree. Will continue to monitor.
[2019-04-27] MEDS ORDERED: traMADol 50mg tab NG PRN (20:30)
[2019-04-27] MEDS: Tamsulosin 0.4mg cap ORAL SCH (20:51)
--- NOTE | 2019-04-27 21:00 | NUR ---
RESPIRATORY NOTE: 2100 PER PT REQUEST TO PLACE ON BIPAP NOC SETTINGS: 18/5 PS 13 BUR 12 FIO2 30% WHICH PT ANNABELLE WELL. SPO2>92%, NO SOB AND NO RESP DISTRESS NOTED. TAPE PLACED ON FACIAL, NO REDNESS OR SORE NOTED. NURSE BACH AWARE. ALARMS ON AND AUDIBLE. BIPAP PLUGGED INTO RED OUTLET. AMBU BAG AT BEDSIDE. WILL CONTINUE MONITORING PT CLOSELY.
[2019-04-28] VITALS: BP 103/72
--- NOTE | 2019-04-28 | NUR ---
NURSE NOTES: Pt's resting in bed in bed, in no acute distress. VS stable. Will continue to monitor.
[2019-04-28] MEDS: Albuterol/Ipratropium 3ml neb HHN SCH ×4 (02:04→22:18)
[2019-04-28] MEDS: Acetylcysteine 20% Soln 4ml HHN SCH ×6 (02:05→22:19)
[2019-04-28 04:00] VITALS: BP 117/77
--- NOTE | 2019-04-28 04:00 | NUR ---
NURSE NOTES: Pt's resting in bed in no acute distress, eyes closed asleep. VS stable. Will continue to monitor.
[2019-04-28 05:16] LABS: BASOPHILS % (AUTO) 1.2 % (0.0-2.0); EOSINOPHILS % (AUTO) 8.6 % (0.0-3.0); HEMATOCRIT 27.2 % (42.0-52.0); HEMOGLOBIN 9.2 G/DL (14.2-18.0); LYMPHOCYTES % (AUTO) 12.3 % (20.0-45.0); MEAN CORPUSCULAR VOLUME 83 FL (80-99); MONOCYTES % (AUTO) 9.2 % (1.0-10.0); NEUTROPHILS % (AUTO) 68.6 % (45.0-75.0); PLATELET COUNT 361 K/UL (150-450); RED CELL DISTRIBUTION WIDTH 16.6 % (11.6-14.8); WHITE BLOOD COUNT 6.3 K/UL (4.8-10.8)
[2019-04-28 05:20] LABS: ANION GAP 8 mmol/L (5-15); BLOOD UREA NITROGEN 28 mg/dL (7-18); CALCIUM 8.2 MG/DL (8.5-10.1); CARBON DIOXIDE 34 MMOL/L (21-32); CHLORIDE 99 MMOL/L (98-107); CREATININE 1.6 MG/DL (0.55-1.30); POTASSIUM 3.8 MMOL/L (3.5-5.1); SODIUM 141 MMOL/L (136-145)
--- NOTE | 2019-04-28 07:20 | NUR ---
HAND-OFF: Report given to BLANCA Goetz.
--- NOTE | 2019-04-28 07:25 | NUR ---
NURSE NOTES: Received bedside report from Gamaliel RN. Pt. in bed, awake, a/o x 2-3 confused at times. No sign of distress. On O2 at 2LPM via NC. Denies pain at present. IV at left FA #20g. in placed patent/intact. Bed in low position, locked. Call light within reach. Will cont. to monitor.
[2019-04-28 08:00] VITALS: BP 114/80
[2019-04-28] MEDS: Memantine 5 MG TAB ORAL SCH ×2 (08:48→18:00)
[2019-04-28] MEDS ORDERED: Enoxaparin 40mg Inj SUBQ SCH (09:00)
--- NOTE | 2019-04-28 09:13 | Urology Progress Note ---
Assessment/Plan Status: unchanged Assessment/Plan: 1. 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 2. Urinary retention. 3. Acute kidney injury, labile. 4. Hydronephrosis, likely chronic. 5. Proteinuria. 6. UTI and colonization. 7. Hematuria. monitor clinically maintain guerra, last replaced 04/10 hand irrigated and do PRN position is satisfactory monitor renal fxn, labile likely obst of bilateral distal ureters secondary to advanced prostate ca will need to see how aggressive pt and family want to be renal fxn improved with the new guerra consider ureteral stents or nephrostomies? flomax added abx as ordered may need to hold lovenox voiding trial at some point? d/w nursing staff family members want to take pt to [facility] Subjective Allergies: Coded Allergies: No Known Allergies (Unverified , 04/03/19) Subjective all noted, out of ICU Objective Last 24 Hour Vital Signs Date Time Temp Pulse Resp B/P (MAP) Pulse Ox O2 Delivery O2 Flow Rate FiO2 04/28/19 08:07 100 20 99 Nasal Cannula 2.0 28 102 20 96 04/28/19 08:02 96 Nasal Cannula 3.0 32 04/28/19 04:00 2.0 04/28/19 04:00 98.0 111 32 117/77 (90) 94 04/28/19 04:00 Bi-pap Bi-pap 04/28/19 04:00 114 04/28/19 02:05 108 22 99 Nasal Cannula 2.0 28 104 23 97 04/28/19 00:00 30 04/28/19 00:00 Bi-pap Bi-pap 04/28/19 00:00 122 04/28/19 00:00 98.5 118 25 103/72 (82) 99 04/27/19 23:20 113 22 100 Nasal Cannula 2.0 28 110 22 100 04/27/19 21:00 119 12 100 30 04/27/19 20:00 110 04/27/19 20:00 98.4 110 25 130/78 (95) 97 04/27/19 20:00 Nasal Cannula 2.0 Nasal Cannula 2.0 04/27/19 19:18 98 Nasal Cannula 2.0 28 04/27/19 19:00 121 25 115/79 (91) 97 04/27/19 18:40 5.0 04/27/19 18:00 113 28 112/74 (87) 98 04/27/19 17:00 112 26 105/69 (81) 98 04/27/19 17:00 105/69 04/27/19 16:00 Nasal Cannula 2.0 Nasal Cannula 2.0 04/27/19 16:00 2.0 04/27/19 16:00 112 04/27/19 16:00 98.6 112 26 98/70 (79) 99 04/27/19 15:27 113 24 100 Nasal Cannula 2.0 28 114 23 97 04/27/19 15:00 123 27 112/71 (85) 96 04/27/19 14:00 110 26 121/89 (100) 98 04/27/19 13:00 113 25 108/70 (83) 95 04/27/19 12:13 110 20 100 Nasal Cannula 2.0 28 115 20 96 04/27/19 12:00 2.0 04/27/19 12:00 98.2 110 20 111/72 (85) 100 04/27/19 12:00 Nasal Cannula 2.0 Nasal Cannula 2.0 04/27/19 12:00 109 04/27/19 11:00 106 24 111/77 (88) 100 04/27/19 10:00 106 24 105/73 (84) 100 Intake and Output 04/27/19 04/28/19 19:00 07:00 Intake Total 765 ml 220 ml Output Total 565 ml 330 ml Balance 200 ml -110 ml Free Water 20 ml IV Total 85 ml Tube Feeding 660 ml 220 ml Output Urine Total 565 ml 330 ml # Bowel Movements 4 2 Microbiology Date/Time Source Procedure Growth Status 04/14/19 12:45 Blood Blood Culture - Final NO GROWTH AFTER 5 DAYS Complete 04/15/19 21:40 Sputum Gram Stain - Final Complete 04/15/19 21:40 Sputum Sputum Culture - Final NORMAL UPPER RESPIRATORY DAVID PRESENT Complete 04/18/19 17:00 Stool Clostridium difficile Toxin Assay - Final Complete 04/14/19 11:25 Urine,Random Urine Culture - Final NO GROWTH AFTER 48 HOURS Complete Current Medications Medications (Trade) Dose Ordered Sig/[place]ena Route PRN Reason Start Time Stop Time Status Last Admin Dose Admin Acetaminophen (Tylenol) 650 mg Q6H PRN ORAL Mild Pain/Temp > 100.5 04/27/19 20:30 05/24/19 20:29 Acetylcysteine (Mucomyst) 200 mg Q4HRT HHN 04/27/19 23:00 05/18/19 10:59 04/28/19 07:52 Albuterol/ Ipratropium (Albuterol/ Ipratropium) 3 ml Q4HRT HHN 04/27/19 23:00 04/28/19 14:59 04/28/19 07:52 Cefepime HCl 1 gm/ Dextrose 55 ml @ 110 mls/hr Q24H IVPB 04/28/19 12:00 04/28/19 23:59 Enoxaparin Sodium (Lovenox) 40 mg DAILY SUBQ 04/28/19 09:00 05/25/19 08:59 04/28/19 08:50 Hydralazine HCl (Apresoline) 10 mg Q4H PRN IV SBP > 170mmHg 04/27/19 20:30 05/08/19 20:29 Lansoprazole (Prevacid) 30 mg DAILY ORAL 04/28/19 09:00 05/13/19 08:59 04/28/19 08:48 Memantine (Namenda) 5 mg BID ORAL 04/28/19 09:00 05/04/19 17:59 04/28/19 08:48 Tamsulosin HCl (Flomax) 0.4 mg BEDTIME ORAL 04/27/19 21:00 05/13/19 20:59 04/27/19 20:51 Tramadol HCl (Ultram) 50 mg Q8H PRN NG Moderate Pain (Pain Scale 4-6) 04/27/19 20:30 05/04/19 20:29 Laboratory Tests 04/28/19 03:46: White Blood Count 6.3, Red Blood Count 3.30L, Hemoglobin 9.2L, Hematocrit 27.2L , Mean Corpuscular Volume 83, Mean Corpuscular Hemoglobin 28.0, Mean Corpuscular Hemoglobin Concent 34.0, Red Cell Distribution Width 16.6H, Platelet Count 361, Mean Platelet Volume 6.3L, Neutrophils (%) (Auto) 68.6, Lymphocytes (%) (Auto) 12.3L, Monocytes (%) (Auto) 9.2, Eosinophils (%) (Auto) 8.6H, Basophils (%) (Auto) 1.2, Sodium Level 141, Potassium Level 3.8, Chloride Level 99, Carbon Dioxide Level 34H, Anion Gap 8, Blood Urea Nitrogen 28H, Creatinine 1.6H, Estimat Glomerular Filtration Rate 51.8, Glucose Level 97, Calcium Level 8.2L Height (Feet): 5 Height (Inches): 7.00 Weight (Pounds): 146 Objective exam stable guerra indwelling, yellow/allegra urine CT A/P (04/10) noted Raz Root MD Apr 28, 2019 09:13
--- NOTE | 2019-04-28 10:02 | Surgery Progress Note ---
Surgery Progress Note Subjective Procedure Performed right femoral central venous catheter insertion Symptoms: improved, tolerating diet, voiding well, passing flatus, BM Objective Last 24 Hour Vital Signs Date Time Temp Pulse Resp B/P (MAP) Pulse Ox O2 Delivery O2 Flow Rate FiO2 04/28/19 08:07 100 20 99 Nasal Cannula 2.0 28 102 20 96 04/28/19 08:02 96 Nasal Cannula 3.0 32 04/28/19 04:00 2.0 04/28/19 04:00 98.0 111 32 117/77 (90) 94 04/28/19 04:00 Bi-pap Bi-pap 04/28/19 04:00 114 04/28/19 02:05 108 22 99 Nasal Cannula 2.0 28 104 23 97 04/28/19 00:00 30 04/28/19 00:00 Bi-pap Bi-pap 04/28/19 00:00 122 04/28/19 00:00 98.5 118 25 103/72 (82) 99 04/27/19 23:20 113 22 100 Nasal Cannula 2.0 28 110 22 100 04/27/19 21:00 119 12 100 30 04/27/19 20:00 110 04/27/19 20:00 98.4 110 25 130/78 (95) 97 04/27/19 20:00 Nasal Cannula 2.0 Nasal Cannula 2.0 04/27/19 19:18 98 Nasal Cannula 2.0 28 04/27/19 19:00 121 25 115/79 (91) 97 04/27/19 18:40 5.0 04/27/19 18:00 113 28 112/74 (87) 98 04/27/19 17:00 112 26 105/69 (81) 98 04/27/19 17:00 105/69 04/27/19 16:00 Nasal Cannula 2.0 Nasal Cannula 2.0 04/27/19 16:00 2.0 04/27/19 16:00 112 04/27/19 16:00 98.6 112 26 98/70 (79) 99 04/27/19 15:27 113 24 100 Nasal Cannula 2.0 28 114 23 97 04/27/19 15:00 123 27 112/71 (85) 96 04/27/19 14:00 110 26 121/89 (100) 98 04/27/19 13:00 113 25 108/70 (83) 95 04/27/19 12:13 110 20 100 Nasal Cannula 2.0 28 115 20 96 04/27/19 12:00 2.0 04/27/19 12:00 98.2 110 20 111/72 (85) 100 04/27/19 12:00 Nasal Cannula 2.0 Nasal Cannula 2.0 04/27/19 12:00 109 04/27/19 11:00 106 24 111/77 (88) 100 I&O Intake and Output 04/27/19 04/28/19 19:00 07:00 Intake Total 765 ml 220 ml Output Total 565 ml 330 ml Balance 200 ml -110 ml Free Water 20 ml IV Total 85 ml Tube Feeding 660 ml 220 ml Output Urine Total 565 ml 330 ml # Bowel Movements 4 2 Cardiovascular: RSR Respiratory: clear, decreased breath sounds Abdomen: non-tender, present bowel sounds Extremities: no cyanosis Laboratory Tests Test 04/28/19 03:46 White Blood Count 6.3 K/UL (4.8-10.8) Red Blood Count 3.30 M/UL (4.70-6.10) L Hemoglobin 9.2 G/DL (14.2-18.0) L Hematocrit 27.2 % (42.0-52.0) L Mean Corpuscular Volume 83 FL (80-99) Mean Corpuscular Hemoglobin 28.0 PG (27.0-31.0) Mean Corpuscular Hemoglobin Concent 34.0 G/DL (32.0-36.0) Red Cell Distribution Width 16.6 % (11.6-14.8) H Platelet Count 361 K/UL (150-450) Mean Platelet Volume 6.3 FL (6.5-10.1) L Neutrophils (%) (Auto) 68.6 % (45.0-75.0) Lymphocytes (%) (Auto) 12.3 % (20.0-45.0) L Monocytes (%) (Auto) 9.2 % (1.0-10.0) Eosinophils (%) (Auto) 8.6 % (0.0-3.0) H Basophils (%) (Auto) 1.2 % (0.0-2.0) Sodium Level 141 MMOL/L (136-145) Potassium Level 3.8 MMOL/L (3.5-5.1) Chloride Level 99 MMOL/L (98-107) Carbon Dioxide Level 34 MMOL/L (21-32) H Anion Gap 8 mmol/L (5-15) Blood Urea Nitrogen 28 mg/dL (7-18) H Creatinine 1.6 MG/DL (0.55-1.30) H Estimat Glomerular Filtration Rate 51.8 mL/min (>60) Glucose Level 97 MG/DL (74-106) Calcium Level 8.2 MG/DL (8.5-10.1) L Plan Problems: (1) Cardiac arrest Assessment & Plan: Acute deterioration Cardiovascular lopez ACLS required for resuscitation Still full code Hypotensive intensive care unit requiring a new central venous catheter see note Antibiotics as per infectious caries cont current treatment improving trend labs diet as tolerated improving on bipap may require intubation if so will recommend trach will follow with fermin cont tube feeds lasix gtt family does not want thora repeat swallow may consider po intake for comfort measure does not want peg downgraded swallow noted improving thank you (2) Stage III adenocarcinoma of prostate Assessment & Plan: patient with state 3 prostate cancer pending treatment at [facility] unlikely related to acute cardiac arrest this am abd exam with mild distention no acute surgical intervention planned onc input improving extubated diet as tolerated thank you will follow with Jay Conrad Apr 28, 2019 10:02
--- NOTE | 2019-04-28 11:33 | General Progress Note ---
Assessment/Plan Status: unchanged Assessment/Plan: Assessment/Plan Problems: (1) Coffee ground emesis (2) Anemia (3) metastatic prostate CA (4) respiratory failure extubated in the CARMEN ppi patient on oral diet now with a feeder will fu Subjective ROS Limited/Unobtainable: No Allergies: Coded Allergies: No Known Allergies (Unverified , 04/03/19) Objective Last 24 Hour Vital Signs Date Time Temp Pulse Resp B/P (MAP) Pulse Ox O2 Delivery O2 Flow Rate FiO2 04/28/19 08:07 100 20 99 Nasal Cannula 2.0 28 102 20 96 04/28/19 08:02 96 Nasal Cannula 3.0 32 04/28/19 08:00 97.5 112 24 114/80 (91) 96 112 04/28/19 07:51 115 04/28/19 04:00 2.0 04/28/19 04:00 98.0 111 32 117/77 (90) 94 04/28/19 04:00 Bi-pap Bi-pap 04/28/19 04:00 114 04/28/19 02:05 108 22 99 Nasal Cannula 2.0 28 104 23 97 04/28/19 00:00 30 04/28/19 00:00 Bi-pap Bi-pap 04/28/19 00:00 122 04/28/19 00:00 98.5 118 25 103/72 (82) 99 04/27/19 23:20 113 22 100 Nasal Cannula 2.0 28 110 22 100 04/27/19 21:00 119 12 100 30 04/27/19 20:00 110 04/27/19 20:00 98.4 110 25 130/78 (95) 97 04/27/19 20:00 Nasal Cannula 2.0 Nasal Cannula 2.0 04/27/19 19:18 98 Nasal Cannula 2.0 28 04/27/19 19:00 121 25 115/79 (91) 97 04/27/19 18:40 5.0 04/27/19 18:00 113 28 112/74 (87) 98 04/27/19 17:00 112 26 105/69 (81) 98 04/27/19 17:00 105/69 04/27/19 16:00 Nasal Cannula 2.0 Nasal Cannula 2.0 04/27/19 16:00 2.0 2/24/20 16:00 112 04/27/19 16:00 98.6 112 26 98/70 (79) 99 04/27/19 15:27 113 24 100 Nasal Cannula 2.0 28 114 23 97 04/27/19 15:00 123 27 112/71 (85) 96 04/27/19 14:00 110 26 121/89 (100) 98 04/27/19 13:00 113 25 108/70 (83) 95 04/27/19 12:13 110 20 100 Nasal Cannula 2.0 28 115 20 96 04/27/19 12:00 2.0 04/27/19 12:00 98.2 110 20 111/72 (85) 100 04/27/19 12:00 Nasal Cannula 2.0 Nasal Cannula 2.0 04/27/19 12:00 109 Intake and Output 04/27/19 04/28/19 19:00 07:00 Intake Total 765 ml 220 ml Output Total 565 ml 330 ml Balance 200 ml -110 ml Free Water 20 ml IV Total 85 ml Tube Feeding 660 ml 220 ml Output Urine Total 565 ml 330 ml # Bowel Movements 4 2 Laboratory Tests 04/28/19 03:46: White Blood Count 6.3, Red Blood Count 3.30L, Hemoglobin 9.2L, Hematocrit 27.2L , Mean Corpuscular Volume 83, Mean Corpuscular Hemoglobin 28.0, Mean Corpuscular Hemoglobin Concent 34.0, Red Cell Distribution Width 16.6H, Platelet Count 361, Mean Platelet Volume 6.3L, Neutrophils (%) (Auto) 68.6, Lymphocytes (%) (Auto) 12.3L, Monocytes (%) (Auto) 9.2, Eosinophils (%) (Auto) 8.6H, Basophils (%) (Auto) 1.2, Sodium Level 141, Potassium Level 3.8, Chloride Level 99, Carbon Dioxide Level 34H, Anion Gap 8, Blood Urea Nitrogen 28H, Creatinine 1.6H, Estimat Glomerular Filtration Rate 51.8, Glucose Level 97, Calcium Level 8.2L Height (Feet): 5 Height (Inches): 7.00 Weight (Pounds): 146 General Appearance: no apparent distress EENT: normal ENT inspection Neck: supple Cardiovascular: normal rate Respiratory/Chest: decreased breath sounds Abdomen: normal bowel sounds, non tender, soft Extremities: non-tender Tyrone Lamb MD Apr 28, 2019 11:33
[2019-04-28 12:00] VITALS: BP 162/70
[2019-04-28] MEDS ORDERED: Cefepime HCl 1 GM in D5W 55 ML IVPB SCH (12:00)
--- NOTE | 2019-04-28 12:24 | Cardiac Electrophysiology PN ---
Assessment/Plan Assessment/Plan 1. Status post 2 separate non infarctional juan antonio arrest with asystole. Both episodes happened in the setting of respiratory failure and off the Vent No evidence of ventricular tachycardia or ventricular fibrillation. Off any GARCÍA or AVN olivia EF 65%. All 3 troponins were less than 0.1. Watch for recurrence of bradycardia Family refusing any procedures until transferred to [facility] 2. Recurrent Respiratory failure, extubated 04/08/19, reintubated 04/13/19 and reextubated 04/19/19 3. History of stage III prostate cancer, followed by Dr. Monroy and Dr Root. Mroales was changed. Usually follows up at [facility] 4. S/P Shock. Off Levophed on iv Abx. 5. Hypercalcemia due to prostate cancer. 6. Hypernatremia. 7. Anemia, s/p multiple PRBCs 8. Low K. Replace 9. Dysphagia, PEG by Dr. Lamb cancelled due to lack on consent NGT feeding 10. Pleural effusion, off Lasix drip. Family refused thoracentesis DW RN Subjective Subjective Transferred out of ICU on 2 liter Nasal Cannula. No juan antonio yet. NGT feeding. Family wants to transfer to [facility] and refusing thoracentesis or PEG until patient transferred Objective Last 24 Hour Vital Signs Date Time Temp Pulse Resp B/P (MAP) Pulse Ox O2 Delivery O2 Flow Rate FiO2 04/28/19 11:07 107 20 100 Nasal Cannula 2.0 28 98 20 95 04/28/19 08:07 100 20 99 Nasal Cannula 2.0 28 102 20 96 04/28/19 08:02 96 Nasal Cannula 3.0 32 04/28/19 08:00 Bi-pap Bi-pap 04/28/19 08:00 97.5 112 24 114/80 (91) 96 112 04/28/19 08:00 2.0 04/28/19 07:51 115 04/28/19 04:00 2.0 04/28/19 04:00 98.0 111 32 117/77 (90) 94 04/28/19 04:00 Bi-pap Bi-pap 04/28/19 04:00 114 04/28/19 02:05 108 22 99 Nasal Cannula 2.0 28 104 23 97 04/28/19 00:00 30 04/28/19 00:00 Bi-pap Bi-pap 04/28/19 00:00 122 04/28/19 00:00 98.5 118 25 103/72 (82) 99 04/27/19 23:20 113 22 100 Nasal Cannula 2.0 28 110 22 100 04/27/19 21:00 119 12 100 30 04/27/19 20:00 110 04/27/19 20:00 98.4 110 25 130/78 (95) 97 04/27/19 20:00 Nasal Cannula 2.0 Nasal Cannula 2.0 04/27/19 19:18 98 Nasal Cannula 2.0 28 04/27/19 19:00 121 25 115/79 (91) 97 04/27/19 18:40 5.0 04/27/19 18:00 113 28 112/74 (87) 98 04/27/19 17:00 112 26 105/69 (81) 98 04/27/19 17:00 105/69 04/27/19 16:00 Nasal Cannula 2.0 Nasal Cannula 2.0 04/27/19 16:00 2.0 04/27/19 16:00 112 04/27/19 16:00 98.6 112 26 98/70 (79) 99 04/27/19 15:27 113 24 100 Nasal Cannula 2.0 28 114 23 97 04/27/19 15:00 123 27 112/71 (85) 96 04/27/19 14:00 110 26 121/89 (100) 98 04/27/19 13:00 113 25 108/70 (83) 95 Intake and Output 04/27/19 04/28/19 19:00 07:00 Intake Total 765 ml 220 ml Output Total 565 ml 330 ml Balance 200 ml -110 ml Free Water 20 ml IV Total 85 ml Tube Feeding 660 ml 220 ml Output Urine Total 565 ml 330 ml # Bowel Movements 4 2 Laboratory Tests Test 04/28/19 03:46 White Blood Count 6.3 K/UL (4.8-10.8) Red Blood Count 3.30 M/UL (4.70-6.10) L Hemoglobin 9.2 G/DL (14.2-18.0) L Hematocrit 27.2 % (42.0-52.0) L Mean Corpuscular Volume 83 FL (80-99) Mean Corpuscular Hemoglobin 28.0 PG (27.0-31.0) Mean Corpuscular Hemoglobin Concent 34.0 G/DL (32.0-36.0) Red Cell Distribution Width 16.6 % (11.6-14.8) H Platelet Count 361 K/UL (150-450) Mean Platelet Volume 6.3 FL (6.5-10.1) L Neutrophils (%) (Auto) 68.6 % (45.0-75.0) Lymphocytes (%) (Auto) 12.3 % (20.0-45.0) L Monocytes (%) (Auto) 9.2 % (1.0-10.0) Eosinophils (%) (Auto) 8.6 % (0.0-3.0) H Basophils (%) (Auto) 1.2 % (0.0-2.0) Sodium Level 141 MMOL/L (136-145) Potassium Level 3.8 MMOL/L (3.5-5.1) Chloride Level 99 MMOL/L (98-107) Carbon Dioxide Level 34 MMOL/L (21-32) H Anion Gap 8 mmol/L (5-15) Blood Urea Nitrogen 28 mg/dL (7-18) H Creatinine 1.6 MG/DL (0.55-1.30) H Estimat Glomerular Filtration Rate 51.8 mL/min (>60) Glucose Level 97 MG/DL (74-106) Calcium Level 8.2 MG/DL (8.5-10.1) L Objective HEENT: No JVD. NGT in LUNGS: Coarse rhonchi. CARDIOVASCULAR: Regular S1 and S2 ABDOMEN: Soft and nondistended. EXTREMITIES: No pitting edema. Nani Cortez MD Apr 28, 2019 12:24
--- NOTE | 2019-04-28 14:00 | Pulmonology Progress Note ---
Assessment/Plan Assessment/Plan IMPRESSION: 1. Status post asystolic cardiac arrest. Again on 04/13/19 2. Respiratory failure, re-intubated; and now extubated 04/20/19 3. Altered mental status. Resolved 4. Hypernatremia. Corrected. 5. Hypokalemia . Corrected. 6. History of COPD. 7. Prostate CA. DISCUSSION: 1. Off BiPAP 2. Needs PEG 3. Doing well post extubation 5. Dc diuretics 6. Transfused CXR looking better; Needs PEG; would not advise PO diet again family refused PEG No longer on BiPAP has large left pleural effusion, family refuses thoracentesis. Will dc diuresis DC to [facility] at family request Ganesh Mathews M.D. Subjective Interval Events: continues to do better. Constitutional: Reports: no symptoms HEENT: Repors: no symptoms Respiratory: Reports: no symptoms Cardiovascular: Reports: no symptoms Allergies: Coded Allergies: No Known Allergies (Unverified , 04/03/19) Objective Last 24 Hour Vital Signs Date Time Temp Pulse Resp B/P (MAP) Pulse Ox O2 Delivery O2 Flow Rate FiO2 04/28/19 12:00 Bi-pap Bi-pap 04/28/19 12:00 2.0 04/28/19 12:00 97.6 65 19 162/70 (100) 97 65 04/28/19 11:07 107 20 100 Nasal Cannula 2.0 28 98 20 95 04/28/19 08:07 100 20 99 Nasal Cannula 2.0 28 102 20 96 04/28/19 08:02 96 Nasal Cannula 3.0 32 04/28/19 08:00 Bi-pap Bi-pap 04/28/19 08:00 97.5 112 24 114/80 (91) 96 112 04/28/19 08:00 2.0 04/28/19 07:51 115 04/28/19 04:00 2.0 04/28/19 04:00 98.0 111 32 117/77 (90) 94 04/28/19 04:00 Bi-pap Bi-pap 04/28/19 04:00 114 04/28/19 02:05 108 22 99 Nasal Cannula 2.0 28 104 23 97 04/28/19 00:00 30 04/28/19 00:00 Bi-pap Bi-pap 04/28/19 00:00 122 04/28/19 00:00 98.5 118 25 103/72 (82) 99 04/27/19 23:20 113 22 100 Nasal Cannula 2.0 28 110 22 100 04/27/19 21:00 119 12 100 30 04/27/19 20:00 110 04/27/19 20:00 98.4 110 25 130/78 (95) 97 04/27/19 20:00 Nasal Cannula 2.0 Nasal Cannula 2.0 04/27/19 19:18 98 Nasal Cannula 2.0 28 04/27/19 19:00 121 25 115/79 (91) 97 04/27/19 18:40 5.0 04/27/19 18:00 113 28 112/74 (87) 98 04/27/19 17:00 112 26 105/69 (81) 98 04/27/19 17:00 105/69 04/27/19 16:00 Nasal Cannula 2.0 Nasal Cannula 2.0 04/27/19 16:00 2.0 04/27/19 16:00 112 04/27/19 16:00 98.6 112 26 98/70 (79) 99 04/27/19 15:27 113 24 100 Nasal Cannula 2.0 28 114 23 97 04/27/19 15:00 123 27 112/71 (85) 96 04/27/19 14:00 110 26 121/89 (100) 98 Intake and Output 04/27/19 04/28/19 19:00 07:00 Intake Total 765 ml 220 ml Output Total 565 ml 330 ml Balance 200 ml -110 ml Free Water 20 ml IV Total 85 ml Tube Feeding 660 ml 220 ml Output Urine Total 565 ml 330 ml # Bowel Movements 4 2 General Appearance: no acute distress HEENT: normocephalic Respiratory/Chest: decreased breath sounds Cardiovascular: normal peripheral pulses Abdomen: normal bowel sounds Laboratory Tests 04/28/19 03:46: White Blood Count 6.3, Red Blood Count 3.30L, Hemoglobin 9.2L, Hematocrit 27.2L , Mean Corpuscular Volume 83, Mean Corpuscular Hemoglobin 28.0, Mean Corpuscular Hemoglobin Concent 34.0, Red Cell Distribution Width 16.6H, Platelet Count 361, Mean Platelet Volume 6.3L, Neutrophils (%) (Auto) 68.6, Lymphocytes (%) (Auto) 12.3L, Monocytes (%) (Auto) 9.2, Eosinophils (%) (Auto) 8.6H, Basophils (%) (Auto) 1.2, Sodium Level 141, Potassium Level 3.8, Chloride Level 99, Carbon Dioxide Level 34H, Anion Gap 8, Blood Urea Nitrogen 28H, Creatinine 1.6H, Estimat Glomerular Filtration Rate 51.8, Glucose Level 97, Calcium Level 8.2L Current Medications Medications (Trade) Dose Ordered Sig/[place] Route PRN Reason Start Time Stop Time Status Last Admin Dose Admin Acetaminophen (Tylenol) 650 mg Q6H PRN ORAL Mild Pain/Temp > 100.5 04/27/19 20:30 05/24/19 20:29 Acetylcysteine (Mucomyst) 200 mg Q4HRT HHN 04/27/19 23:00 05/18/19 10:59 04/28/19 10:52 Albuterol/ Ipratropium (Albuterol/ Ipratropium) 3 ml Q4HRT HHN 04/27/19 23:00 04/28/19 14:59 04/28/19 10:51 Cefepime HCl 1 gm/ Dextrose 55 ml @ 110 mls/hr Q24H IVPB 04/28/19 12:00 04/28/19 23:59 Enoxaparin Sodium (Lovenox) 40 mg DAILY SUBQ 04/28/19 09:00 05/25/19 08:59 04/28/19 08:50 Hydralazine HCl (Apresoline) 10 mg Q4H PRN IV SBP > 170mmHg 04/27/19 20:30 05/08/19 20:29 Lansoprazole (Prevacid) 30 mg DAILY ORAL 04/28/19 09:00 05/13/19 08:59 04/28/19 08:48 Memantine (Namenda) 5 mg BID ORAL 04/28/19 09:00 05/04/19 17:59 04/28/19 08:48 Tamsulosin HCl (Flomax) 0.4 mg BEDTIME ORAL 04/27/19 21:00 05/13/19 20:59 04/27/19 20:51 Tramadol HCl (Ultram) 50 mg Q8H PRN NG Moderate Pain (Pain Scale 4-6) 04/27/19 20:30 05/04/19 20:29 Ganesh Mathews MD Apr 28, 2019 14:00
--- NOTE | 2019-04-28 14:25 | General Progress Note ---
Assessment/Plan Problem List: (1) UTI (urinary tract infection) ICD Codes: N39.0 - Urinary tract infection, site not specified SNOMED: 45921922 (2) Weak ICD Codes: R53.1 - Weakness SNOMED: 22867190 (3) Anemia ICD Codes: D64.9 - Anemia, unspecified SNOMED: 537450793 (4) Dehydration ICD Codes: E86.0 - Dehydration SNOMED: 35411235, 15144011 (5) Episode of generalized weakness ICD Codes: R53.1 - Weakness SNOMED: 34632201 (6) Stage III adenocarcinoma of prostate ICD Codes: C61 - Malignant neoplasm of prostate SNOMED: 872005749, 35665631 Status: unchanged Assessment/Plan: o2 pulm tx pt diet abx iv fluid heme gi eval cbc bmp am Subjective Constitutional: Reports: weakness Allergies: Coded Allergies: No Known Allergies (Unverified , 04/03/19) All Systems: reviewed and negative except above Subjective o2nc sleep Objective Last 24 Hour Vital Signs Date Time Temp Pulse Resp B/P (MAP) Pulse Ox O2 Delivery O2 Flow Rate FiO2 04/28/19 12:00 Bi-pap Bi-pap 04/28/19 12:00 2.0 04/28/19 12:00 97.6 65 19 162/70 (100) 97 65 04/28/19 11:07 107 20 100 Nasal Cannula 2.0 28 98 20 95 04/28/19 08:07 100 20 99 Nasal Cannula 2.0 28 102 20 96 04/28/19 08:02 96 Nasal Cannula 3.0 32 04/28/19 08:00 Bi-pap Bi-pap 04/28/19 08:00 97.5 112 24 114/80 (91) 96 112 04/28/19 08:00 2.0 04/28/19 07:51 115 04/28/19 04:00 2.0 04/28/19 04:00 98.0 111 32 117/77 (90) 94 04/28/19 04:00 Bi-pap Bi-pap 04/28/19 04:00 114 04/28/19 02:05 108 22 99 Nasal Cannula 2.0 28 104 23 97 04/28/19 00:00 30 04/28/19 00:00 Bi-pap Bi-pap 04/28/19 00:00 122 04/28/19 00:00 98.5 118 25 103/72 (82) 99 04/27/19 23:20 113 22 100 Nasal Cannula 2.0 28 110 22 100 04/27/19 21:00 119 12 100 30 04/27/19 20:00 110 04/27/19 20:00 98.4 110 25 130/78 (95) 97 04/27/19 20:00 Nasal Cannula 2.0 Nasal Cannula 2.0 04/27/19 19:18 98 Nasal Cannula 2.0 28 04/27/19 19:00 121 25 115/79 (91) 97 04/27/19 18:40 5.0 04/27/19 18:00 113 28 112/74 (87) 98 04/27/19 17:00 112 26 105/69 (81) 98 04/27/19 17:00 105/69 04/27/19 16:00 Nasal Cannula 2.0 Nasal Cannula 2.0 04/27/19 16:00 2.0 04/27/19 16:00 112 04/27/19 16:00 98.6 112 26 98/70 (79) 99 04/27/19 15:27 113 24 100 Nasal Cannula 2.0 28 114 23 97 04/27/19 15:00 123 27 112/71 (85) 96 Intake and Output 04/27/19 04/28/19 19:00 07:00 Intake Total 765 ml 220 ml Output Total 565 ml 330 ml Balance 200 ml -110 ml Free Water 20 ml IV Total 85 ml Tube Feeding 660 ml 220 ml Output Urine Total 565 ml 330 ml # Bowel Movements 4 2 Laboratory Tests 04/28/19 03:46: White Blood Count 6.3, Red Blood Count 3.30L, Hemoglobin 9.2L, Hematocrit 27.2L , Mean Corpuscular Volume 83, Mean Corpuscular Hemoglobin 28.0, Mean Corpuscular Hemoglobin Concent 34.0, Red Cell Distribution Width 16.6H, Platelet Count 361, Mean Platelet Volume 6.3L, Neutrophils (%) (Auto) 68.6, Lymphocytes (%) (Auto) 12.3L, Monocytes (%) (Auto) 9.2, Eosinophils (%) (Auto) 8.6H, Basophils (%) (Auto) 1.2, Sodium Level 141, Potassium Level 3.8, Chloride Level 99, Carbon Dioxide Level 34H, Anion Gap 8, Blood Urea Nitrogen 28H, Creatinine 1.6H, Estimat Glomerular Filtration Rate 51.8, Glucose Level 97, Calcium Level 8.2L Height (Feet): 5 Height (Inches): 7.00 Weight (Pounds): 145 General Appearance: lethargic EENT: normal ENT inspection Neck: normal alignment Cardiovascular: normal peripheral pulses, normal rate, regular rhythm Respiratory/Chest: chest wall non-tender, decreased breath sounds Abdomen: normal bowel sounds, non tender, soft Extremities: normal inspection Edema: no edema noted Arm (L), no edema noted Arm (R), no edema noted Leg (L), no edema noted Leg (R), no edema noted Pedal (L), no edema noted Pedal (R), no edema noted Generalized Neurologic: motor weakness Skin: normal pigmentation, warm/dry Sawyer Toussaint DO Apr 28, 2019 14:25
--- NOTE | 2019-04-28 14:54 | Nephrology Progress Note ---
Assessment/Plan Status: unchanged Assessment/Plan: A/P 1. CKD 3B- Cr 1.6 stable 2. Prostate cancer with elevated PSA- Oncology to manage 3. Hypokalemia- replace prn 4. Sepsis and UTI mgmt per ID 5. Hypernatremia- resolved. 6. Hypercalcemia of malignancy- s/p pamidronate x 1 and calcitonin. Ca 8.2 7. Resp FL- resolved Subjective Date patient seen: Apr 28, 2019 Time patient seen: 14:53 ROS Limited/Unobtainable: No Allergies: Coded Allergies: No Known Allergies (Unverified , 04/03/19) Subjective Patient off BiPAP to [facility] Objective Last 24 Hour Vital Signs Date Time Temp Pulse Resp B/P (MAP) Pulse Ox O2 Delivery O2 Flow Rate FiO2 04/28/19 12:00 Bi-pap Bi-pap 04/28/19 12:00 2.0 04/28/19 12:00 97.6 65 19 162/70 (100) 97 65 04/28/19 11:07 107 20 100 Nasal Cannula 2.0 28 98 20 95 04/28/19 08:07 100 20 99 Nasal Cannula 2.0 28 102 20 96 04/28/19 08:02 96 Nasal Cannula 3.0 32 04/28/19 08:00 Bi-pap Bi-pap 04/28/19 08:00 97.5 112 24 114/80 (91) 96 112 04/28/19 08:00 2.0 04/28/19 07:51 115 04/28/19 04:00 2.0 04/28/19 04:00 98.0 111 32 117/77 (90) 94 04/28/19 04:00 Bi-pap Bi-pap 04/28/19 04:00 114 04/28/19 02:05 108 22 99 Nasal Cannula 2.0 28 104 23 97 04/28/19 00:00 30 04/28/19 00:00 Bi-pap Bi-pap 04/28/19 00:00 122 04/28/19 00:00 98.5 118 25 103/72 (82) 99 04/27/19 23:20 113 22 100 Nasal Cannula 2.0 28 110 22 100 04/27/19 21:00 119 12 100 30 04/27/19 20:00 110 04/27/19 20:00 98.4 110 25 130/78 (95) 97 04/27/19 20:00 Nasal Cannula 2.0 Nasal Cannula 2.0 04/27/19 19:18 98 Nasal Cannula 2.0 28 04/27/19 19:00 121 25 115/79 (91) 97 04/27/19 18:40 5.0 04/27/19 18:00 113 28 112/74 (87) 98 04/27/19 17:00 112 26 105/69 (81) 98 04/27/19 17:00 105/69 04/27/19 16:00 Nasal Cannula 2.0 Nasal Cannula 2.0 04/27/19 16:00 2.0 04/27/19 16:00 112 04/27/19 16:00 98.6 112 26 98/70 (79) 99 04/27/19 15:27 113 24 100 Nasal Cannula 2.0 28 114 23 97 04/27/19 15:00 123 27 112/71 (85) 96 Intake and Output 04/27/19 04/28/19 19:00 07:00 Intake Total 765 ml 220 ml Output Total 565 ml 330 ml Balance 200 ml -110 ml Free Water 20 ml IV Total 85 ml Tube Feeding 660 ml 220 ml Output Urine Total 565 ml 330 ml # Bowel Movements 4 2 Laboratory Tests 04/28/19 03:46: White Blood Count 6.3, Red Blood Count 3.30L, Hemoglobin 9.2L, Hematocrit 27.2L , Mean Corpuscular Volume 83, Mean Corpuscular Hemoglobin 28.0, Mean Corpuscular Hemoglobin Concent 34.0, Red Cell Distribution Width 16.6H, Platelet Count 361, Mean Platelet Volume 6.3L, Neutrophils (%) (Auto) 68.6, Lymphocytes (%) (Auto) 12.3L, Monocytes (%) (Auto) 9.2, Eosinophils (%) (Auto) 8.6H, Basophils (%) (Auto) 1.2, Sodium Level 141, Potassium Level 3.8, Chloride Level 99, Carbon Dioxide Level 34H, Anion Gap 8, Blood Urea Nitrogen 28H, Creatinine 1.6H, Estimat Glomerular Filtration Rate 51.8, Glucose Level 97, Calcium Level 8.2L Height (Feet): 5 Height (Inches): 7.00 Weight (Pounds): 145 General Appearance: no apparent distress, alert EENT: normal ENT inspection Neck: normal alignment, supple Cardiovascular: normal rate, regular rhythm Respiratory/Chest: rhonchi - bilaterally Abdomen: non tender, soft Edema: no edema noted Arm (L), no edema noted Arm (R), no edema noted Leg (L), no edema noted Leg (R), no edema noted Pedal (L), no edema noted Pedal (R), no edema noted Generalized Carlos White MD Apr 28, 2019 14:54
--- NOTE | 2019-04-28 15:24 | NUR ---
*-*DISCHARGE PLANNING*-* PATIENT HAS BEEN REFERRED TO: [facility] P: [phone] F: [phone] *-*CLINICALS FAXED*-*
[2019-04-28 16:00] VITALS: BP 102/74
--- NOTE | 2019-04-28 16:23 | Hematology/Onc Progress Note ---
Assessment/Plan Assessment/Plan # Prostate cancer stage IV with psa >700, cr is worse, hydronephrosis noted, seen by renal, Dr. White. --> i did received records from [facility]. has regional lymphadenopathy, s/p transrectal biopsy with Gleasons 5+5 (2010) in all cores, apparently has had a 3 year course of androgen deprivation from 2011- 2014.also status post RADIATION to the prostate, then lost to followup. Following surviellance psa 0.45-->65, in 10/2016, and up to 127 in 12/2016, Ct scan showed recurrence of disease with lad but no bony mets, started on lupron 01/2017, psa fell yo 73-->46, has been sarted on zytiga + prednisone, and now psa progression on zytiga, he started xtandi in 01/2019 Psa 87. He did not go through urethral stenting, he has deferred treatment with chemo. --> He is a very poor historian, I have talked to the sister --> imaging has been noted --> as per urology recs, reviewed --> poor prognosis given above history of treatment, [facility] --> psa 737-->757 --> CT ABD 04/10: Evidence of advanced metastatic neoplasm likely secondary to prostate carcinoma. Extensive retroperitoneal and pelvic lymphadenopathy complicated by presence of bilateral hydroureteronephrosis. Extensive metastatic disease involving the bones also noted. Status post seed implant radiation therapy to the prostate gland. --> family wants to transfer to [facility] # Hypercalcemia -- now acutely worse --> trend Ca++ 8.1-->13-->12-->10.3-->10.7-->13.2 -->11-->10.5 --> ivf has been started --> as per nephrology --> calcitonin was given # Anemia due to underlying malignancy --> hgb trend as needed 9.2-->7-->10.9-->11-->9.7-->8.1-->8.6-->9.2 --> no hemolysis is noted --> no bleeding --> blood tx: 04/18, # Episode of generalized weakness --> on ivf --> pt as needed # Pleural effusion --> no consent for peg --> family refusing peg and thoracentesis # Hypokalemia --> replete prn # Dehydration --> on ivf # Atrophic changes without evident intracranial hemorrhage. --> as per neuro, remains confused # Respiratory failure s/p vent now ext --> on bipap++ # Hypernatremia as well as low BUN --> on ivf # Poor prognosis # Dvt ppx lovenox sq # DC planning [facility] or facility Appreciate consultation and Nicholas Rn Subjective Allergies: Coded Allergies: No Known Allergies (Unverified , 04/03/19) Subjective 04/06: no events, apparently intubated today and transferred to the icu, will dw family 04/07: remains in the icu, critically ill, Ca++ 12, on vent, minimally responsive , on dopa, dw pcp and pulm 04/08: no major changes, no night sweats, labs have been reviewed, dw daughter, he is more alert 04/10: awake, no acute events ct abd reviewed, stool ob negative 04/12: labs reviewed, nc, tachy, ceftriaxone, no sob 04/13: lethargic, nc 3l, no acute distress, labs reviewed 04/14: Ca++ remains elev 13.2, De Amy aware, on calcitonin, on lovenox 04/15: no major changes, remains intubated, seen by cards, renal, pulm, dw Kellie, kcl ordered 04/16: tolerating meds well, no bleeding, on vent, is on simv mode, nicholas Pacheco Rn 04/17: icu, vent, h/h stable, no acute events, on cefepime 04/19: remains in icu and intubated, s/p blood, hgb 8.6, c diff negative 04/20: on bipap, hgb 8.6, no major changes, in icu, requires peg 04/21: urine is red tinged this am, of vent, with nc, no bleeding, labs noted 04/22: no major changes, no bleeding r chils, no consent for procedures 04/23: icu, failed to wean from bipap, h/h stable 04/24: no events, feeling better, nicholas uro, with guerra, labs noted, no bleeding 04/26: no bleeding, no f/c, no major changes, anemia panel noted 04/27: no major events, no bleeding, no fc, labs reviewed 04/28: in sdu, no longer on bipap, family refusing peg and thoracentesis Objective Objective Current Medications Medications (Trade) Dose Ordered Sig/La Nena Route PRN Reason Start Time Stop Time Status Last Admin Dose Admin Acetaminophen (Tylenol) 650 mg Q6H PRN ORAL Mild Pain/Temp > 100.5 04/27/19 20:30 05/24/19 20:29 Acetylcysteine (Mucomyst) 200 mg Q4HRT HHN 04/27/19 23:00 05/18/19 10:59 04/28/19 10:52 Cefepime HCl 1 gm/ Dextrose 55 ml @ 110 mls/hr Q24H IVPB 04/28/19 12:00 04/28/19 23:59 04/28/19 14:03 Enoxaparin Sodium (Lovenox) 40 mg DAILY SUBQ 04/28/19 09:00 05/25/19 08:59 04/28/19 08:50 Hydralazine HCl (Apresoline) 10 mg Q4H PRN IV SBP > 170mmHg 04/27/19 20:30 05/08/19 20:29 Lansoprazole (Prevacid) 30 mg DAILY ORAL 04/28/19 09:00 05/13/19 08:59 04/28/19 08:48 Memantine (Namenda) 5 mg BID ORAL 04/28/19 09:00 05/04/19 17:59 04/28/19 08:48 Tamsulosin HCl (Flomax) 0.4 mg BEDTIME ORAL 04/27/19 21:00 05/13/19 20:59 04/27/19 20:51 Tramadol HCl (Ultram) 50 mg Q8H PRN NG Moderate Pain (Pain Scale 4-6) 04/27/19 20:30 05/04/19 20:29 Last 24 Hour Vital Signs Date Time Temp Pulse Resp B/P (MAP) Pulse Ox O2 Delivery O2 Flow Rate FiO2 04/28/19 12:00 Bi-pap Bi-pap 04/28/19 12:00 2.0 04/28/19 12:00 97.6 65 19 162/70 (100) 97 65 04/28/19 11:47 112 04/28/19 11:07 107 20 100 Nasal Cannula 2.0 28 98 20 95 04/28/19 08:07 100 20 99 Nasal Cannula 2.0 28 102 20 96 04/28/19 08:02 96 Nasal Cannula 3.0 32 04/28/19 08:00 Bi-pap Bi-pap 04/28/19 08:00 97.5 112 24 114/80 (91) 96 112 04/28/19 08:00 2.0 04/28/19 07:51 115 04/28/19 04:00 2.0 04/28/19 04:00 98.0 111 32 117/77 (90) 94 04/28/19 04:00 Bi-pap Bi-pap 04/28/19 04:00 114 04/28/19 02:05 108 22 99 Nasal Cannula 2.0 28 104 23 97 04/28/19 00:00 30 04/28/19 00:00 Bi-pap Bi-pap 04/28/19 00:00 122 04/28/19 00:00 98.5 118 25 103/72 (82) 99 04/27/19 23:20 113 22 100 Nasal Cannula 2.0 28 110 22 100 04/27/19 21:00 119 12 100 30 04/27/19 20:00 110 04/27/19 20:00 98.4 110 25 130/78 (95) 97 04/27/19 20:00 Nasal Cannula 2.0 Nasal Cannula 2.0 04/27/19 19:18 98 Nasal Cannula 2.0 28 04/27/19 19:00 121 25 115/79 (91) 97 04/27/19 18:40 5.0 04/27/19 18:00 113 28 112/74 (87) 98 04/27/19 17:00 112 26 105/69 (81) 98 04/27/19 17:00 105/69 04/27/19 16:00 Nasal Cannula 2.0 Nasal Cannula 2.0 04/27/19 16:00 2.0 04/27/19 16:00 112 04/27/19 16:00 98.6 112 26 98/70 (79) 99 04/27/19 15:27 113 24 100 Nasal Cannula 2.0 28 114 23 97 04/27/19 15:00 123 27 112/71 (85) 96 04/27/19 14:00 110 26 121/89 (100) 98 04/27/19 13:00 113 25 108/70 (83) 95 04/27/19 12:13 110 20 100 Nasal Cannula 2.0 28 115 20 96 04/27/19 12:00 2.0 04/27/19 12:00 98.2 110 20 111/72 (85) 100 04/27/19 12:00 Nasal Cannula 2.0 Nasal Cannula 2.0 04/27/19 12:00 109 04/27/19 11:00 106 24 111/77 (88) 100 04/27/19 10:00 106 24 105/73 (84) 100 04/27/19 09:00 108 24 99/68 (78) 100 04/27/19 08:00 2.0 04/27/19 08:00 98.8 114 24 105/71 (82) 99 04/27/19 08:00 Nasal Cannula 2.0 Nasal Cannula 2.0 04/27/19 08:00 104 04/27/19 07:21 115 27 100 Nasal Cannula 2.0 28 119 23 100 04/27/19 07:21 99 Nasal Cannula 2.0 28 04/27/19 07:19 113 27 100 30 04/27/19 07:00 105 23 100/61 (74) 96 04/27/19 06:00 109 22 101/67 (78) 98 04/27/19 05:04 113 19 97 30 04/27/19 05:00 113 22 102/75 (84) 99 04/27/19 04:00 Bi-pap 04/27/19 04:00 30 04/27/19 04:00 98.6 108 20 99/65 (76) 100 04/27/19 04:00 113 04/27/19 03:06 111 25 100 Bi-Pap 30 04/27/19 03:00 114 21 100/69 (79) 100 04/27/19 02:51 113 23 97 Bi-Pap 30 04/27/19 02:51 113 23 97 30 04/27/19 02:00 114 22 96/70 (79) 97 04/27/19 01:00 116 24 104/68 (80) 98 04/27/19 00:50 109 24 98 30 04/27/19 00:00 98.0 114 25 101/63 (76) 97 04/27/19 00:00 30 04/27/19 00:00 106 04/27/19 00:00 Nasal Cannula 2.0 04/26/19 23:12 110 24 100 Bi-Pap 30 04/26/19 23:00 114 24 99/66 (77) 98 04/26/19 22:57 114 23 97 30 04/26/19 22:57 114 23 97 Bi-Pap 30 04/26/19 22:00 115 24 105/70 (82) 97 04/26/19 21:00 114 24 105/70 (82) 100 04/26/19 20:00 113 04/26/19 20:00 Nasal Cannula 2.0 04/26/19 20:00 98.2 110 25 99/68 (78) 100 04/26/19 20:00 2.0 04/26/19 19:07 111 25 100 Nasal Cannula 2.0 28 04/26/19 19:00 111 23 110/76 (87) 100 04/26/19 18:52 114 26 97 Nasal Cannula 2.0 28 04/26/19 18:52 97 Nasal Cannula 2.0 28 04/26/19 18:00 115 25 128/76 (93) 97 04/26/19 17:00 115 26 107/72 (84) 100 Intake and Output 04/27/19 04/28/19 19:00 07:00 Intake Total 765 ml 220 ml Output Total 565 ml 330 ml Balance 200 ml -110 ml Free Water 20 ml IV Total 85 ml Tube Feeding 660 ml 220 ml Output Urine Total 565 ml 330 ml # Bowel Movements 4 2 Labs Test 04/26/19 05:15 04/27/19 05:50 04/28/19 03:46 White Blood Count 7.3 K/UL (4.8-10.8) 6.3 K/UL (4.8-10.8) 6.3 K/UL (4.8-10.8) Red Blood Count 3.27 M/UL (4.70-6.10) 3.09 M/UL (4.70-6.10) 3.30 M/UL (4.70-6.10) Hemoglobin 9.3 G/DL (14.2-18.0) 8.9 G/DL (14.2-18.0) 9.2 G/DL (14.2-18.0) Hematocrit 27.6 % (42.0-52.0) 25.8 % (42.0-52.0) 27.2 % (42.0-52.0) Mean Corpuscular Volume 84 FL (80-99) 83 FL (80-99) 83 FL (80-99) Mean Corpuscular Hemoglobin 28.5 PG (27.0-31.0) 29.0 PG (27.0-31.0) 28.0 PG (27.0-31.0) Mean Corpuscular Hemoglobin Concent 33.7 G/DL (32.0-36.0) 34.7 G/DL (32.0-36.0) 34.0 G/DL (32.0-36.0) Red Cell Distribution Width 14.5 % (11.6-14.8) 14.3 % (11.6-14.8) 16.6 % (11.6-14.8) Platelet Count 302 K/UL (150-450) 293 K/UL (150-450) 361 K/UL (150-450) Mean Platelet Volume 4.7 FL (6.5-10.1) 4.4 FL (6.5-10.1) 6.3 FL (6.5-10.1) Neutrophils (%) (Auto) 64.4 % (45.0-75.0) 66.3 % (45.0-75.0) 68.6 % (45.0-75.0) Lymphocytes (%) (Auto) 15.8 % (20.0-45.0) 17.0 % (20.0-45.0) 12.3 % (20.0-45.0) Monocytes (%) (Auto) 12.5 % (1.0-10.0) 6.8 % (1.0-10.0) 9.2 % (1.0-10.0) Eosinophils (%) (Auto) 6.3 % (0.0-3.0) 8.6 % (0.0-3.0) 8.6 % (0.0-3.0) Basophils (%) (Auto) 1.0 % (0.0-2.0) 1.3 % (0.0-2.0) 1.2 % (0.0-2.0) Sodium Level 142 MMOL/L (136-145) 137 MMOL/L (136-145) 141 MMOL/L (136-145) Potassium Level 3.1 MMOL/L (3.5-5.1) 3.5 MMOL/L (3.5-5.1) 3.8 MMOL/L (3.5-5.1) Chloride Level 102 MMOL/L (98-107) 98 MMOL/L (98-107) 99 MMOL/L (98-107) Carbon Dioxide Level 36 MMOL/L (21-32) 34 MMOL/L (21-32) 34 MMOL/L (21-32) Anion Gap 4 mmol/L (5-15) 5 mmol/L (5-15) 8 mmol/L (5-15) Blood Urea Nitrogen 24 mg/dL (7-18) 29 mg/dL (7-18) 28 mg/dL (7-18) Creatinine 1.7 MG/DL (0.55-1.30) 1.8 MG/DL (0.55-1.30) 1.6 MG/DL (0.55-1.30) Estimat Glomerular Filtration Rate 48.2 mL/min (>60) 45.2 mL/min (>60) 51.8 mL/min (>60) Glucose Level 116 MG/DL (74-106) 125 MG/DL (74-106) 97 MG/DL (74-106) Calcium Level 8.4 MG/DL (8.5-10.1) 7.9 MG/DL (8.5-10.1) 8.2 MG/DL (8.5-10.1) Height (Feet): 5 Height (Inches): 7.00 Weight (Pounds): 145 Objective General: normal inspection, alert, Chronically Ill Respiratory: dry breath sounds b/l, Cardiovascular: regular rate, rhythm, no edema Gastrointestinal: normal inspection, normal bowel sounds Genitourinary: no CVA tenderness Mus: normal inspection, back normal, normal range of motion Neurologic: alert, motor strength/tone normal, oriented + confused Psychiatric: normal inspection, judgement/insight normal Skin: no rash Andreas Monroy MD Apr 28, 2019 16:23
--- NOTE | 2019-04-28 17:30 | Progress Note ---
DATE: 04/28/2019 SUBJECTIVE: This is a 73-year-old male patient with generalized weakness. The patient is currently in an ICU step-down, but this patient has generalized weakness, confusion, and disorganized thought process. The patient also has stage III adenocarcinoma of the prostate and he had history of coffee-ground emesis in the past. MENTAL STATUS EXAMINATION: This is a 73-year-old male. Appearance is disheveled. Attitude, irritable and agitated. Affect, guarded and restricted. Intellect, poor. Mood, depressed and anxious. Motor activity, psychomotor agitation. Attention span is poor. Orientation x2. Speech is low volume and slurred. Thought process, disorganized and illogical. Insight and judgment is poor. DIAGNOSIS: Paranoid schizophrenia, acute exacerbation. PLAN: My plan for this patient is to treat this patient with medication regimen of Namenda 5 mg twice a day. A 20 minutes of cognitive behavioral therapy to help him identify his automatic negative thoughts and help him convert those negative thoughts to more positive thoughts to reduce depression, anxiety, and mood lability. Chart reviewed. Discussed with staff. Seen and assessed at bedside. Cherise Palma M.D. DR: FREDIS JOB#: [id number] CC:
--- NOTE | 2019-04-28 18:08 | Infectious Diseases Prog Note ---
Assessment/Plan Assessment/Plan Assessment: Shock, recurrent- off pressors -04/20 CXR: Interim extubation. Increased left greater than right pleural fluid Probable PNA, SP Rx -04/21 CXR:Shifting infiltrates on the right, with increased hazy midlung infiltrate, improved right basilar consolidation or atelectasis or pleural fluid. Slightly increased generalized mild interstitial congestion. Stable large left pleural effusion Low grade fever; SP Mild leukocytosis, recurrent- SP -04/15 sp cx normal resp sharyn (prelim) -04/14 u/a wbc 10-15, nit neg, leuk +3; ucx Neg CXR: Interim development of complete right upper lobe atelectasis. Nonspecific diffuse hazy left lung opacity, likely mild pulmonary edema. -04/07 Bcx NTD u/a wbc tnct, nit neg, leuk +; ucx neg -04/06 CXR: Interval resolution of right apical density. This suggests the diagnosis was atelectasis rather than an apical cap from blood, which was suggested as a possibility on the prior report. The right upper lobe atelectasis has resolved. Suspicion of new atelectasis at the right lung base. Sepsis, Sp UTI B/l hydroureteronephrosis -04/10 CT abd/p: Evidence of advanced metastatic neoplasm likely secondary to prostate carcinoma. Extensive retroperitoneal and pelvic lymphadenopathy complicated by presence of bilateral hydroureteronephrosis. Extensive metastatic disease involving the bones also noted. Small left pleural effusion. Right trace right pleural effusion. Right inguinal hernia containing a small amount of fluid. Alternatively this could represent part of the testis. Anasarca. -u/a wbc 20-30, nit +, leuk +3; ucx >100k E.coli (R amp, bactrim; otherwise S) Probable Aspiration pneumonitis vs PNA -04/08 CXR: Patchy perihilar disease which may be asymmetric interstitial edema or infiltrate unchanged. Interval resolution of right basal atelectasis. -04/07 sp cx normal sharyn(prelim) s/p recent fall s/p bradycardia>cardiac arrest 04/13 s/p asystole cardiac arrest 04/06 VDRF; s/p extubation 04/08 VDRF 04/13; sp extubation 04/19 LETA Hypokalemia prostate CA stage IV, mets to bone chronic indwelling guerra catheter Plan: - DC Cefepime #14/ for probable PNA -04/17 SP Vanc IV #4 -210 SP Ceftriaxone #4 - 2/7 Sp ZOsyn #4 -2/6 SP IV Vancomycin #3 -2/4 SP Ceftriaxone #4 -Monitor CBC/CMP, temperatures -aspiration precautions -Cards, renal, Uro, pulm f/u -CXR - possible transfer out to [facility] Thank you for this consultation. Will continue to follow along with you. Subjective Allergies: Coded Allergies: No Known Allergies (Unverified , 04/03/19) Subjective comfortable transferred out of ICU resting Objective Vital Signs Last 24 Hour Vital Signs Date Time Temp Pulse Resp B/P (MAP) Pulse Ox O2 Delivery O2 Flow Rate FiO2 04/28/19 16:00 Bi-pap Bi-pap 04/28/19 16:00 2.0 04/28/19 12:00 Bi-pap Bi-pap 04/28/19 12:00 2.0 04/28/19 12:00 97.6 65 19 162/70 (100) 97 65 04/28/19 11:47 112 04/28/19 11:07 107 20 100 Nasal Cannula 2.0 28 98 20 95 04/28/19 08:07 100 20 99 Nasal Cannula 2.0 28 102 20 96 04/28/19 08:02 96 Nasal Cannula 3.0 32 04/28/19 08:00 Bi-pap Bi-pap 04/28/19 08:00 97.5 112 24 114/80 (91) 96 112 04/28/19 08:00 2.0 04/28/19 07:51 115 04/28/19 04:00 2.0 04/28/19 04:00 98.0 111 32 117/77 (90) 94 04/28/19 04:00 Bi-pap Bi-pap 04/28/19 04:00 114 04/28/19 02:05 108 22 99 Nasal Cannula 2.0 28 104 23 97 04/28/19 00:00 30 04/28/19 00:00 Bi-pap Bi-pap 04/28/19 00:00 122 04/28/19 00:00 98.5 118 25 103/72 (82) 99 04/27/19 23:20 113 22 100 Nasal Cannula 2.0 28 110 22 100 04/27/19 21:00 119 12 100 30 04/27/19 20:00 110 04/27/19 20:00 98.4 110 25 130/78 (95) 97 04/27/19 20:00 Nasal Cannula 2.0 Nasal Cannula 2.0 04/27/19 19:18 98 Nasal Cannula 2.0 28 04/27/19 19:00 121 25 115/79 (91) 97 04/27/19 18:40 5.0 Height (Feet): 5 Height (Inches): 7.00 Weight (Pounds): 145 HEENT: anicteric Respiratory/Chest: lungs clear Cardiovascular: normal rate Abdomen: soft, non tender, non distended Laboratory Tests Test 04/28/19 03:46 White Blood Count 6.3 K/UL (4.8-10.8) Red Blood Count 3.30 M/UL (4.70-6.10) L Hemoglobin 9.2 G/DL (14.2-18.0) L Hematocrit 27.2 % (42.0-52.0) L Mean Corpuscular Volume 83 FL (80-99) Mean Corpuscular Hemoglobin 28.0 PG (27.0-31.0) Mean Corpuscular Hemoglobin Concent 34.0 G/DL (32.0-36.0) Red Cell Distribution Width 16.6 % (11.6-14.8) H Platelet Count 361 K/UL (150-450) Mean Platelet Volume 6.3 FL (6.5-10.1) L Neutrophils (%) (Auto) 68.6 % (45.0-75.0) Lymphocytes (%) (Auto) 12.3 % (20.0-45.0) L Monocytes (%) (Auto) 9.2 % (1.0-10.0) Eosinophils (%) (Auto) 8.6 % (0.0-3.0) H Basophils (%) (Auto) 1.2 % (0.0-2.0) Sodium Level 141 MMOL/L (136-145) Potassium Level 3.8 MMOL/L (3.5-5.1) Chloride Level 99 MMOL/L (98-107) Carbon Dioxide Level 34 MMOL/L (21-32) H Anion Gap 8 mmol/L (5-15) Blood Urea Nitrogen 28 mg/dL (7-18) H Creatinine 1.6 MG/DL (0.55-1.30) H Estimat Glomerular Filtration Rate 51.8 mL/min (>60) Glucose Level 97 MG/DL (74-106) Calcium Level 8.2 MG/DL (8.5-10.1) L Current Medications Medications (Trade) Dose Ordered Sig/La Nena Route PRN Reason Start Time Stop Time Status Last Admin Dose Admin Acetaminophen (Tylenol) 650 mg Q6H PRN ORAL Mild Pain/Temp > 100.5 04/27/19 20:30 05/24/19 20:29 Acetylcysteine (Mucomyst) 200 mg Q4HRT HHN 04/27/19 23:00 05/18/19 10:59 04/28/19 10:52 Cefepime HCl 1 gm/ Dextrose 55 ml @ 110 mls/hr Q24H IVPB 04/28/19 12:00 04/28/19 23:59 04/28/19 14:03 Enoxaparin Sodium (Lovenox) 40 mg DAILY SUBQ 04/28/19 09:00 05/25/19 08:59 04/28/19 08:50 Hydralazine HCl (Apresoline) 10 mg Q4H PRN IV SBP > 170mmHg 04/27/19 20:30 05/08/19 20:29 Lansoprazole (Prevacid) 30 mg DAILY ORAL 04/28/19 09:00 05/13/19 08:59 04/28/19 08:48 Memantine (Namenda) 5 mg BID ORAL 04/28/19 09:00 05/04/19 17:59 04/28/19 08:48 Tamsulosin HCl (Flomax) 0.4 mg BEDTIME ORAL 04/27/19 21:00 05/13/19 20:59 04/27/19 20:51 Tramadol HCl (Ultram) 50 mg Q8H PRN NG Moderate Pain (Pain Scale 4-6) 04/27/19 20:30 05/04/19 20:29 Bryce Osorio MD Apr 28, 2019 18:08
--- NOTE | 2019-04-28 19:46 | NUR ---
HAND-OFF: Report given to Nate RN. Pt. remain stable.
--- NOTE | 2019-04-28 19:47 | NUR ---
NURSE NOTES: Pt received from BLANCA Goetz alert and oriented x2 with no acute s/s of distress noted. On 2L NC, with no acute resp distress noted. IV site on L fa 20g saline lock, asymptomatic and patent. Bed in lowest position, call light and belongings within reach.
[2019-04-28 20:00] VITALS: BP 127/84
--- NOTE | 2019-04-28 20:15 | NUR ---
NURSE NOTES: CODY Barrios spoke with Dr. Mathews. Per Dr. Mathews, "ok to downgrade patient to tele". Communicated to Nursing Back Shoe Operator Stephanie Elizondo, waiting for room available.
[2019-04-28] MEDS: Tamsulosin 0.4mg cap ORAL SCH (20:37)
[2019-04-29] VITALS: BP 122/82
--- NOTE | 2019-04-29 01:28 | NUR ---
NURSE NOTES: Pt resting in bed on 2L NC. RN and RT offered Bipap to pt for the night, pt refused. RN educated pt on risks and benefits of using Bipap, pt continued to refuse. Will continue to monitor pt. Bed alarm on, call light and belongings within reach.
--- NOTE | 2019-04-29 02:01 | NUR ---
NURSE NOTES: Pt frequently attempted to get out of bed, RN re-oriented patient to person, place and situation but pt exhibited some confusion. RN and RT placed patient on Bipap for continued signs of confusion to which patient reacted by attempting to punch the Resp Therapist and wave his middle finger at staff. Pt placed on bilateral soft wrist restraints for patient and staff safety, bed alarm on. Dr. Toussaint made aware. Call light within reach. Will continue to monitor.
[2019-04-29] MEDS: Albuterol/Ipratropium 3ml neb HHN SCH ×6 (02:02→23:56)
[2019-04-29] MEDS: Acetylcysteine 20% Soln 4ml HHN SCH ×6 (02:03→23:56)
[2019-04-29 04:00] VITALS: BP 103/69
[2019-04-29 06:05] LABS: BASOPHILS % (AUTO) 1.2 % (0.0-2.0); EOSINOPHILS % (AUTO) 10.6 % (0.0-3.0); HEMATOCRIT 25.6 % (42.0-52.0); HEMOGLOBIN 8.8 G/DL (14.2-18.0); LYMPHOCYTES % (AUTO) 10.8 % (20.0-45.0); MEAN CORPUSCULAR VOLUME 84 FL (80-99); MONOCYTES % (AUTO) 10.2 % (1.0-10.0); NEUTROPHILS % (AUTO) 67.3 % (45.0-75.0); PLATELET COUNT 311 K/UL (150-450); RED BLOOD COUNT 3.04 M/UL (4.70-6.10); RED CELL DISTRIBUTION WIDTH 14.5 % (11.6-14.8); WHITE BLOOD COUNT 5.8 K/UL (4.8-10.8)
--- NOTE | 2019-04-29 06:31 | NUR ---
TRANSFER TO FLOOR: Patient transferred to [facility], per Dr. Mathews. Report given to BLANCA Oakes. Belongings and medications given to BLANCA Oakes. Family and or S/O informed of transfer.
--- NOTE | 2019-04-29 06:33 | Hematology/Onc Progress Note ---
Assessment/Plan Assessment/Plan # Prostate cancer stage IV with psa >700, cr is worse, hydronephrosis noted, seen by renal, Dr. White. --> i did received records from [facility]. has regional lymphadenopathy, s/p transrectal biopsy with Gleasons 5+5 (2010) in all cores, apparently has had a 3 year course of androgen deprivation from 2011- 2014.also status post RADIATION to the prostate, then lost to followup. Following surviellance psa 0.45-->65, in 10/2016, and up to 127 in 12/2016, Ct scan showed recurrence of disease with lad but no bony mets, started on lupron 01/2017, psa fell yo 73-->46, has been sarted on zytiga + prednisone, and now psa progression on zytiga, he started xtandi in 01/2019 Psa 87. He did not go through urethral stenting, he has deferred treatment with chemo. --> He is a very poor historian, I have talked to the sister --> imaging has been noted --> as per urology recs, reviewed --> poor prognosis given above history of treatment, defer transfer to [facility] --> psa 737-->757 --> CT ABD 04/10: Evidence of advanced metastatic neoplasm likely secondary to prostate carcinoma. Extensive retroperitoneal and pelvic lymphadenopathy complicated by presence of bilateral hydroureteronephrosis. Extensive metastatic disease involving the bones also noted. Status post seed implant radiation therapy to the prostate gland. --> family wants to transfer to [facility] # Hypercalcemia -- now acutely worse --> trend Ca++ 8.1-->13-->12-->10.3-->10.7-->13.2 -->11-->10.5 --> ivf has been started --> as per nephrology --> calcitonin was given # Anemia due to underlying malignancy --> hgb trend as needed 9.2-->7-->10.9-->11-->9.7-->8.1-->8.6-->9.2 --> no hemolysis is noted --> no bleeding --> blood tx: 04/18, # Episode of generalized weakness --> on ivf --> pt as needed # Pleural effusion --> no consent for peg --> family refusing peg and thoracentesis # Hypokalemia --> replete prn # Dehydration --> on ivf # Atrophic changes without evident intracranial hemorrhage. --> as per neuro, remains confused # Respiratory failure s/p vent now ext --> on bipap++ # Hypernatremia as well as low BUN --> on ivf # Poor prognosis # Dvt ppx lovenox sq # DC planning [facility] or facility Appreciate consultation and dW Rn Subjective Constitutional: Denies: no symptoms, chills, fever, malaise, weakness, other Cardiovascular: Denies: no symptoms, chest pain, edema, irregular heart rate, lightheadedness, palpitations, syncope, other Respiratory: Denies: no symptoms, cough, shortness of breath, SOB with excertion, SOB at rest, sputum, wheezing, other Gastrointestinal/Abdominal: Denies: no symptoms, abdomen distended, abdominal pain, black stools, tarry stools, blood in stool, constipated, diarrhea, difficulty swallowing, nausea, poor appetite, poor fluid intake, rectal bleeding , vomiting, other Genitourinary: Denies: no symptoms, burning, discharge, frequency, flank pain, hematuria, incontinence, pain, urgency, other Neurologic/Psychiatric: Denies: no symptoms, anxiety, depressed, emotional problems, headache, numbness, paresthesia, pre-existing deficit, seizure, tingling, tremors, weakness, other Endocrine: Denies: no symptoms, excessive sweating, flushing, intolerance to cold, intolerance to heat, increased hunger, increased thirst, increased urine, unexplained weight gain, unexplained weight loss, other Hematologic/Lymphatic: Denies: no symptoms, anemia, easy bleeding, easy bruising, adenopathy, other Allergies: Coded Allergies: No Known Allergies (Unverified , 04/03/19) Subjective 2/3: no events, apparently intubated today and transferred to the icu, will dw family 04/07: remains in the icu, critically ill, Ca++ 12, on vent, minimally responsive , on dopa, dw pcp and pulm 04/08: no major changes, no night sweats, labs have been reviewed, dw daughter, he is more alert 04/10: awake, no acute events ct abd reviewed, stool ob negative 04/12: labs reviewed, nc, tachy, ceftriaxone, no sob 04/13: lethargic, nc 3l, no acute distress, labs reviewed 04/14: Ca++ remains elev 13.2, De Amy aware, on calcitonin, on lovenox 04/15: no major changes, remains intubated, seen by cards, renal, pulm, dw Kellie, kcl ordered 04/16: tolerating meds well, no bleeding, on vent, is on simv mode, nicholas Pacheco Rn 04/17: icu, vent, h/h stable, no acute events, on cefepime 04/19: remains in icu and intubated, s/p blood, hgb 8.6, c diff negative 04/20: on bipap, hgb 8.6, no major changes, in icu, requires peg 04/21: urine is red tinged this am, of vent, with nc, no bleeding, labs noted 04/22: no major changes, no bleeding r chils, no consent for procedures 04/23: icu, failed to wean from bipap, h/h stable 04/24: no events, feeling better, dw uro, with guerra, labs noted, no bleeding 04/26: no bleeding, no f/c, no major changes, anemia panel noted 04/27: no major events, no bleeding, no fc, labs reviewed 04/28: in sdu, no longer on bipap, family refusing peg and thoracentesis 04/29: no major changes, labs reviewed, bipap overnight, then 2lnc during day Objective Objective Current Medications Medications (Trade) Dose Ordered Sig/[place] Route PRN Reason Start Time Stop Time Status Last Admin Dose Admin Acetaminophen (Tylenol) 650 mg Q6H PRN ORAL Mild Pain/Temp > 100.5 04/27/19 20:30 05/24/19 20:29 Acetylcysteine (Mucomyst) 200 mg Q4HRT N 04/27/19 23:00 05/18/19 10:59 04/29/19 02:03 Albuterol/ Ipratropium (Albuterol/ Ipratropium) 3 ml Q4HRT N 04/28/19 23:00 05/03/19 22:59 04/29/19 02:02 Enoxaparin Sodium (Lovenox) 40 mg DAILY SUBQ 04/28/19 09:00 05/25/19 08:59 04/28/19 08:50 Hydralazine HCl (Apresoline) 10 mg Q4H PRN IV SBP > 170mmHg 04/27/19 20:30 05/08/19 20:29 Lansoprazole (Prevacid) 30 mg DAILY ORAL 04/28/19 09:00 05/13/19 08:59 04/28/19 08:48 Memantine (Namenda) 5 mg BID ORAL 04/28/19 09:00 05/04/19 17:59 04/28/19 08:48 Tamsulosin HCl (Flomax) 0.4 mg BEDTIME ORAL 04/27/19 21:00 05/13/19 20:59 04/28/19 20:37 Tramadol HCl (Ultram) 50 mg Q8H PRN NG Moderate Pain (Pain Scale 4-6) 04/27/19 20:30 05/04/19 20:29 Last 24 Hour Vital Signs Date Time Temp Pulse Resp B/P (MAP) Pulse Ox O2 Delivery O2 Flow Rate FiO2 04/29/19 04:00 116 04/29/19 04:00 Bi-pap 2.0 Nasal Cannula 04/29/19 04:00 97.8 117 20 103/69 (80) 100 117 04/29/19 04:00 30 04/29/19 02:03 98 14 99 Bi-Pap 30 96 16 97 04/29/19 01:48 98 19 97 30 04/29/19 00:00 Nasal Cannula 2.0 Nasal Cannula 2.0 04/29/19 00:00 112 04/29/19 00:00 98.2 117 21 122/82 (95) 94 117 04/29/19 00:00 2.0 04/28/19 22:23 95 20 99 Nasal Cannula 3.0 32 93 22 96 04/28/19 20:00 98.0 110 23 127/84 (98) 97 116 04/28/19 20:00 2.0 04/28/19 20:00 Nasal Cannula 2.0 Nasal Cannula 2.0 04/28/19 20:00 119 04/28/19 18:55 97 Nasal Cannula 3.0 32 04/28/19 16:00 98.5 116 20 102/74 (83) 98 116 04/28/19 16:00 Bi-pap Bi-pap 04/28/19 16:00 2.0 04/28/19 15:42 116 04/28/19 12:00 Bi-pap Bi-pap 04/28/19 12:00 2.0 04/28/19 12:00 97.6 65 19 162/70 (100) 97 65 04/28/19 11:47 112 04/28/19 11:07 107 20 100 Nasal Cannula 2.0 28 98 20 95 04/28/19 08:07 100 20 99 Nasal Cannula 2.0 28 102 20 96 04/28/19 08:02 96 Nasal Cannula 3.0 32 04/28/19 08:00 Bi-pap Bi-pap 04/28/19 08:00 97.5 112 24 114/80 (91) 96 112 04/28/19 08:00 2.0 04/28/19 07:51 115 04/28/19 04:00 2.0 04/28/19 04:00 98.0 111 32 117/77 (90) 94 04/28/19 04:00 Bi-pap Bi-pap 04/28/19 04:00 114 04/28/19 02:05 108 22 99 Nasal Cannula 2.0 28 104 23 97 04/28/19 00:00 30 04/28/19 00:00 Bi-pap Bi-pap 04/28/19 00:00 122 04/28/19 00:00 98.5 118 25 103/72 (82) 99 04/27/19 23:20 113 22 100 Nasal Cannula 2.0 28 110 22 100 04/27/19 21:00 119 12 100 30 04/27/19 20:00 110 04/27/19 20:00 98.4 110 25 130/78 (95) 97 04/27/19 20:00 Nasal Cannula 2.0 Nasal Cannula 2.0 04/27/19 19:18 98 Nasal Cannula 2.0 28 04/27/19 19:00 121 25 115/79 (91) 97 04/27/19 18:40 5.0 04/27/19 18:00 113 28 112/74 (87) 98 04/27/19 17:00 112 26 105/69 (81) 98 04/27/19 17:00 105/69 2/24/20 16:00 Nasal Cannula 2.0 Nasal Cannula 2.0 04/27/19 16:00 2.0 04/27/19 16:00 112 04/27/19 16:00 98.6 112 26 98/70 (79) 99 04/27/19 15:27 113 24 100 Nasal Cannula 2.0 28 114 23 97 04/27/19 15:00 123 27 112/71 (85) 96 04/27/19 14:00 110 26 121/89 (100) 98 04/27/19 13:00 113 25 108/70 (83) 95 04/27/19 12:13 110 20 100 Nasal Cannula 2.0 28 115 20 96 04/27/19 12:00 2.0 04/27/19 12:00 98.2 110 20 111/72 (85) 100 04/27/19 12:00 Nasal Cannula 2.0 Nasal Cannula 2.0 04/27/19 12:00 109 04/27/19 11:00 106 24 111/77 (88) 100 04/27/19 10:00 106 24 105/73 (84) 100 04/27/19 09:00 108 24 99/68 (78) 100 04/27/19 08:00 2.0 04/27/19 08:00 98.8 114 24 105/71 (82) 99 04/27/19 08:00 Nasal Cannula 2.0 Nasal Cannula 2.0 04/27/19 08:00 104 04/27/19 07:21 115 27 100 Nasal Cannula 2.0 28 119 23 100 04/27/19 07:21 99 Nasal Cannula 2.0 28 04/27/19 07:19 113 27 100 30 04/27/19 07:00 105 23 100/61 (74) 96 Intake and Output 04/28/19 04/29/19 19:00 07:00 Intake Total 420 ml Output Total 400 ml Balance 20 ml Intake Oral 420 ml Output Urine Total 400 ml Labs Test 04/27/19 05:50 04/28/19 03:46 04/29/19 03:55 White Blood Count 6.3 K/UL (4.8-10.8) 6.3 K/UL (4.8-10.8) 5.8 K/UL (4.8-10.8) Red Blood Count 3.09 M/UL (4.70-6.10) 3.30 M/UL (4.70-6.10) 3.04 M/UL (4.70-6.10) Hemoglobin 8.9 G/DL (14.2-18.0) 9.2 G/DL (14.2-18.0) 8.8 G/DL (14.2-18.0) Hematocrit 25.8 % (42.0-52.0) 27.2 % (42.0-52.0) 25.6 % (42.0-52.0) Mean Corpuscular Volume 83 FL (80-99) 83 FL (80-99) 84 FL (80-99) Mean Corpuscular Hemoglobin 29.0 PG (27.0-31.0) 28.0 PG (27.0-31.0) 28.8 PG (27.0-31.0) Mean Corpuscular Hemoglobin Concent 34.7 G/DL (32.0-36.0) 34.0 G/DL (32.0-36.0) 34.2 G/DL (32.0-36.0) Red Cell Distribution Width 14.3 % (11.6-14.8) 16.6 % (11.6-14.8) 14.5 % (11.6-14.8) Platelet Count 293 K/UL (150-450) 361 K/UL (150-450) 311 K/UL (150-450) Mean Platelet Volume 4.4 FL (6.5-10.1) 6.3 FL (6.5-10.1) 4.6 FL (6.5-10.1) Neutrophils (%) (Auto) 66.3 % (45.0-75.0) 68.6 % (45.0-75.0) 67.3 % (45.0-75.0) Lymphocytes (%) (Auto) 17.0 % (20.0-45.0) 12.3 % (20.0-45.0) 10.8 % (20.0-45.0) Monocytes (%) (Auto) 6.8 % (1.0-10.0) 9.2 % (1.0-10.0) 10.2 % (1.0-10.0) Eosinophils (%) (Auto) 8.6 % (0.0-3.0) 8.6 % (0.0-3.0) 10.6 % (0.0-3.0) Basophils (%) (Auto) 1.3 % (0.0-2.0) 1.2 % (0.0-2.0) 1.2 % (0.0-2.0) Sodium Level 137 MMOL/L (136-145) 141 MMOL/L (136-145) Potassium Level 3.5 MMOL/L (3.5-5.1) 3.8 MMOL/L (3.5-5.1) Chloride Level 98 MMOL/L (98-107) 99 MMOL/L (98-107) Carbon Dioxide Level 34 MMOL/L (21-32) 34 MMOL/L (21-32) Anion Gap 5 mmol/L (5-15) 8 mmol/L (5-15) Blood Urea Nitrogen 29 mg/dL (7-18) 28 mg/dL (7-18) Creatinine 1.8 MG/DL (0.55-1.30) 1.6 MG/DL (0.55-1.30) Estimat Glomerular Filtration Rate 45.2 mL/min (>60) 51.8 mL/min (>60) Glucose Level 125 MG/DL (74-106) 97 MG/DL (74-106) Calcium Level 7.9 MG/DL (8.5-10.1) 8.2 MG/DL (8.5-10.1) Height (Feet): 5 Height (Inches): 7.00 Weight (Pounds): 145 Objective General: normal inspection, alert, Chronically Ill Respiratory: dry breath sounds b/l, Cardiovascular: regular rate, rhythm, no edema Gastrointestinal: normal inspection, normal bowel sounds Genitourinary: no CVA tenderness Mus: normal inspection, back normal, normal range of motion Neurologic: alert, motor strength/tone normal, oriented + confused Psychiatric: normal inspection, judgement/insight normal Skin: no rash Andreas Monroy MD Apr 29, 2019 06:32
--- NOTE | 2019-04-29 06:44 | NUR ---
NURSE NOTES: Received pt from BLANCA Sullivan. Pt awake, alert, and talkative. Bed in lowest position. Call light within reach. Will continue to monitor.
[2019-04-29 07:13] LABS: ANION GAP 11 mmol/L (5-15); BLOOD UREA NITROGEN 29 mg/dL (7-18); CALCIUM 8.2 MG/DL (8.5-10.1); CARBON DIOXIDE 31 MMOL/L (21-32); CHLORIDE 97 MMOL/L (98-107); CREATININE 1.7 MG/DL (0.55-1.30); SODIUM 139 MMOL/L (136-145)
--- NOTE | 2019-04-29 07:34 | NUR ---
HAND-OFF: Report given to BLANCA Pineda. Pt stable.
--- NOTE | 2019-04-29 07:45 | Progress Note ---
DATE: 04/29/2019 SUBJECTIVE: The patient is a 73-year-old male, still very confused, disorganized. He has altered mental status, decline in cognition below his baseline. That is why, his attending has requested daily psychiatric consultation. MENTAL STATUS EXAMINATION: This is a 73-year-old male. Appearance is disheveled. Attitude, irritable and agitated. Affect, guarded and restricted. Intellect, poor. Mood, depressed and anxious. Motor activity, psychomotor agitation. Attention span is poor. Orientation x2. Speech is low volume and slurred. Thought process, disorganized and illogical. Insight and judgment is poor. DIAGNOSIS: Major depressive disorder, mild, recurrent with psychotic features. PLAN: Treat this patient with a medication regimen of Namenda 5 mg twice a day to prevent any further decline in his cognition and he will continue to be followed by Psychiatry throughout hospital course. A 20 minutes of insight-oriented psychotherapy. Chart reviewed. Discussed with staff. Seen and assessed in his room. Cherise Palma M.D. DR: FREDIS JOB#: [id number] CC:
[2019-04-29 08:00] VITALS: BP 122/69
--- NOTE | 2019-04-29 08:05 | Cardiac Electrophysiology PN ---
Assessment/Plan Assessment/Plan 1. Status post 2 separate non infarctional juan antonio arrest with asystole. Both episodes happened in the setting of respiratory failure and off the Vent No evidence of ventricular tachycardia or ventricular fibrillation. Off any GARCÍA or AVN olivia EF 65%. All 3 troponins were less than 0.1. Watch for recurrence of bradycardia Family refusing any procedures until transferred to [facility] 2. Recurrent Respiratory failure, extubated 04/08/19, reintubated 04/13/19 and reextubated 04/19/19 3. History of stage III prostate cancer, followed by Dr. Monroy and Dr Root. Morales was changed. Usually follows up at [facility] 4. S/P Shock. Off Levophed on iv Abx. 5. Hypercalcemia due to prostate cancer. 6. Hypernatremia. 7. Anemia, s/p multiple PRBCs 8. Low K. Replace 9. Dysphagia, PEG by Dr. Lamb cancelled due to lack on consent Now on Puree diet 10. Pleural effusion, off Lasix drip. Family refused thoracentesis MIKE RN Subjective Subjective On tele. No juan antonio yet. Awaiting transfer to [facility] and refusing thoracentesis or PEG until patient transferred but on Puree diet Objective Last 24 Hour Vital Signs Date Time Temp Pulse Resp B/P (MAP) Pulse Ox O2 Delivery O2 Flow Rate FiO2 04/29/19 07:44 82 16 98 Nasal Cannula 3.0 32 80 16 97 04/29/19 07:43 97 Nasal Cannula 3.0 32 04/29/19 04:00 116 04/29/19 04:00 Bi-pap 2.0 Nasal Cannula 04/29/19 04:00 97.8 117 20 103/69 (80) 100 117 04/29/19 04:00 30 04/29/19 02:03 98 14 99 Bi-Pap 30 96 16 97 04/29/19 01:48 98 19 97 30 04/29/19 00:00 Nasal Cannula 2.0 Nasal Cannula 2.0 04/29/19 00:00 112 04/29/19 00:00 98.2 117 21 122/82 (95) 94 117 04/29/19 00:00 2.0 04/28/19 22:23 95 20 99 Nasal Cannula 3.0 32 93 22 96 04/28/19 20:00 98.0 110 23 127/84 (98) 97 116 04/28/19 20:00 2.0 04/28/19 20:00 Nasal Cannula 2.0 Nasal Cannula 2.0 04/28/19 20:00 119 04/28/19 18:55 97 Nasal Cannula 3.0 32 04/28/19 16:00 98.5 116 20 102/74 (83) 98 116 04/28/19 16:00 Bi-pap Bi-pap 04/28/19 16:00 2.0 04/28/19 15:42 116 04/28/19 12:00 Bi-pap Bi-pap 04/28/19 12:00 2.0 04/28/19 12:00 97.6 65 19 162/70 (100) 97 65 04/28/19 11:47 112 04/28/19 11:07 107 20 100 Nasal Cannula 2.0 28 98 20 95 04/28/19 08:07 100 20 99 Nasal Cannula 2.0 28 102 20 96 Intake and Output 04/28/19 04/29/19 19:00 07:00 Intake Total 420 ml Output Total 400 ml Balance 20 ml Intake Oral 420 ml Output Urine Total 400 ml Laboratory Tests Test 04/29/19 03:55 White Blood Count 5.8 K/UL (4.8-10.8) Red Blood Count 3.04 M/UL (4.70-6.10) L Hemoglobin 8.8 G/DL (14.2-18.0) L Hematocrit 25.6 % (42.0-52.0) L Mean Corpuscular Volume 84 FL (80-99) Mean Corpuscular Hemoglobin 28.8 PG (27.0-31.0) Mean Corpuscular Hemoglobin Concent 34.2 G/DL (32.0-36.0) Red Cell Distribution Width 14.5 % (11.6-14.8) Platelet Count 311 K/UL (150-450) Mean Platelet Volume 4.6 FL (6.5-10.1) L Neutrophils (%) (Auto) 67.3 % (45.0-75.0) Lymphocytes (%) (Auto) 10.8 % (20.0-45.0) L Monocytes (%) (Auto) 10.2 % (1.0-10.0) H Eosinophils (%) (Auto) 10.6 % (0.0-3.0) H Basophils (%) (Auto) 1.2 % (0.0-2.0) Sodium Level 139 MMOL/L (136-145) Potassium Level 4.0 MMOL/L (3.5-5.1) Chloride Level 97 MMOL/L (98-107) L Carbon Dioxide Level 31 MMOL/L (21-32) Anion Gap 11 mmol/L (5-15) Blood Urea Nitrogen 29 mg/dL (7-18) H Creatinine 1.7 MG/DL (0.55-1.30) H Estimat Glomerular Filtration Rate 48.2 mL/min (>60) Glucose Level 84 MG/DL (74-106) Calcium Level 8.2 MG/DL (8.5-10.1) L Objective HEENT: No JVD. LUNGS: Coarse rhonchi. CARDIOVASCULAR: Regular S1 and S2 ABDOMEN: Soft and nondistended. EXTREMITIES: No pitting edema. Nain Cortez MD Apr 29, 2019 08:05
--- NOTE | 2019-04-29 08:20 | NUR ---
NURSE NOTES: Received patient from Wilbert Oakes. Patient is sleeping alying comfortably in bed. Verbally responsive and following commands. No complain of pain or discomfort. B/L wrist restraints on. will follow protocol and evaluate for need s for continuance. Call londono within patient s reached and aware of its used. Fall/Aspiration precautions in place. will follow.
--- NOTE | 2019-04-29 09:10 | General Progress Note ---
Assessment/Plan Status: unchanged Assessment/Plan: Assessment/Plan Problems: (1) Coffee ground emesis (2) Anemia (3) metastatic prostate CA (4) respiratory failure extubated ppi patient on oral diet now with a feeder hold PEG plans for now will fu Subjective ROS Limited/Unobtainable: No Allergies: Coded Allergies: No Known Allergies (Unverified , 04/03/19) Objective Last 24 Hour Vital Signs Date Time Temp Pulse Resp B/P (MAP) Pulse Ox O2 Delivery O2 Flow Rate FiO2 04/29/19 08:00 96.7 114 20 122/69 (86) 95 114 04/29/19 07:44 82 16 98 Nasal Cannula 3.0 32 80 16 97 04/29/19 07:43 97 Nasal Cannula 3.0 32 04/29/19 04:00 116 04/29/19 04:00 Bi-pap 2.0 Nasal Cannula 04/29/19 04:00 97.8 117 20 103/69 (80) 100 117 04/29/19 04:00 30 04/29/19 02:03 98 14 99 Bi-Pap 30 96 16 97 04/29/19 01:48 98 19 97 30 04/29/19 00:00 Nasal Cannula 2.0 Nasal Cannula 2.0 04/29/19 00:00 112 04/29/19 00:00 98.2 117 21 122/82 (95) 94 117 04/29/19 00:00 2.0 04/28/19 22:23 95 20 99 Nasal Cannula 3.0 32 93 22 96 04/28/19 20:00 98.0 110 23 127/84 (98) 97 116 04/28/19 20:00 2.0 04/28/19 20:00 Nasal Cannula 2.0 Nasal Cannula 2.0 04/28/19 20:00 119 04/28/19 18:55 97 Nasal Cannula 3.0 32 04/28/19 16:00 98.5 116 20 102/74 (83) 98 116 04/28/19 16:00 Bi-pap Bi-pap 04/28/19 16:00 2.0 04/28/19 15:42 116 04/28/19 12:00 Bi-pap Bi-pap 04/28/19 12:00 2.0 04/28/19 12:00 97.6 65 19 162/70 (100) 97 65 04/28/19 11:47 112 04/28/19 11:07 107 20 100 Nasal Cannula 2.0 28 98 20 95 Intake and Output 04/28/19 04/29/19 19:00 07:00 Intake Total 420 ml Output Total 400 ml Balance 20 ml Intake Oral 420 ml Output Urine Total 400 ml Laboratory Tests 04/29/19 03:55: White Blood Count 5.8, Red Blood Count 3.04L, Hemoglobin 8.8L, Hematocrit 25.6L , Mean Corpuscular Volume 84, Mean Corpuscular Hemoglobin 28.8, Mean Corpuscular Hemoglobin Concent 34.2, Red Cell Distribution Width 14.5, Platelet Count 311, Mean Platelet Volume 4.6L, Neutrophils (%) (Auto) 67.3, Lymphocytes ( %) (Auto) 10.8L, Monocytes (%) (Auto) 10.2H, Eosinophils (%) (Auto) 10.6H, Basophils (%) (Auto) 1.2, Sodium Level 139, Potassium Level 4.0, Chloride Level 97L, Carbon Dioxide Level 31, Anion Gap 11, Blood Urea Nitrogen 29H, Creatinine 1.7H, Estimat Glomerular Filtration Rate 48.2, Glucose Level 84, Calcium Level 8.2L Height (Feet): 5 Height (Inches): 7.00 Weight (Pounds): 145 General Appearance: no apparent distress EENT: normal ENT inspection Neck: supple Cardiovascular: normal rate Respiratory/Chest: decreased breath sounds Abdomen: normal bowel sounds, non tender, soft Extremities: non-tender Tyrone Lamb MD Apr 29, 2019 09:10
[2019-04-29] MEDS: Memantine 5 MG TAB ORAL SCH ×2 (09:23→17:24)
[2019-04-29] MEDS: Enoxaparin 40mg Inj SUBQ SCH (09:24)
--- NOTE | 2019-04-29 09:26 | Nephrology Progress Note ---
Assessment/Plan Status: unchanged Assessment/Plan: A/P 1. CKD 3B- Cr 1.7 stable. OK for DC from renal point 2. Prostate cancer with elevated PSA- Oncology to manage 3. Hypokalemia- replace prn 4. Sepsis and UTI mgmt per ID 5. Hypernatremia- resolved. 6. Hypercalcemia of malignancy- s/p pamidronate x 1 and calcitonin. Ca 8.2 7. Resp FL- resolved Subjective Date patient seen: Apr 29, 2019 Time patient seen: 09:25 ROS Limited/Unobtainable: No Allergies: Coded Allergies: No Known Allergies (Unverified , 04/03/19) Subjective Patient off BiPAP tx to Tele Objective Last 24 Hour Vital Signs Date Time Temp Pulse Resp B/P (MAP) Pulse Ox O2 Delivery O2 Flow Rate FiO2 04/29/19 08:00 96.7 114 20 122/69 (86) 95 114 04/29/19 07:44 82 16 98 Nasal Cannula 3.0 32 80 16 97 04/29/19 07:43 97 Nasal Cannula 3.0 32 04/29/19 04:00 116 04/29/19 04:00 Bi-pap 2.0 Nasal Cannula 04/29/19 04:00 97.8 117 20 103/69 (80) 100 117 04/29/19 04:00 30 04/29/19 02:03 98 14 99 Bi-Pap 30 96 16 97 04/29/19 01:48 98 19 97 30 04/29/19 00:00 Nasal Cannula 2.0 Nasal Cannula 2.0 04/29/19 00:00 112 04/29/19 00:00 98.2 117 21 122/82 (95) 94 117 04/29/19 00:00 2.0 04/28/19 22:23 95 20 99 Nasal Cannula 3.0 32 93 22 96 04/28/19 20:00 98.0 110 23 127/84 (98) 97 116 04/28/19 20:00 2.0 04/28/19 20:00 Nasal Cannula 2.0 Nasal Cannula 2.0 04/28/19 20:00 119 04/28/19 18:55 97 Nasal Cannula 3.0 32 04/28/19 16:00 98.5 116 20 102/74 (83) 98 116 04/28/19 16:00 Bi-pap Bi-pap 04/28/19 16:00 2.0 04/28/19 15:42 116 04/28/19 12:00 Bi-pap Bi-pap 04/28/19 12:00 2.0 04/28/19 12:00 97.6 65 19 162/70 (100) 97 65 04/28/19 11:47 112 04/28/19 11:07 107 20 100 Nasal Cannula 2.0 28 98 20 95 Intake and Output 04/28/19 04/29/19 19:00 07:00 Intake Total 420 ml Output Total 400 ml Balance 20 ml Intake Oral 420 ml Output Urine Total 400 ml Laboratory Tests 04/29/19 03:55: White Blood Count 5.8, Red Blood Count 3.04L, Hemoglobin 8.8L, Hematocrit 25.6L , Mean Corpuscular Volume 84, Mean Corpuscular Hemoglobin 28.8, Mean Corpuscular Hemoglobin Concent 34.2, Red Cell Distribution Width 14.5, Platelet Count 311, Mean Platelet Volume 4.6L, Neutrophils (%) (Auto) 67.3, Lymphocytes ( %) (Auto) 10.8L, Monocytes (%) (Auto) 10.2H, Eosinophils (%) (Auto) 10.6H, Basophils (%) (Auto) 1.2, Sodium Level 139, Potassium Level 4.0, Chloride Level 97L, Carbon Dioxide Level 31, Anion Gap 11, Blood Urea Nitrogen 29H, Creatinine 1.7H, Estimat Glomerular Filtration Rate 48.2, Glucose Level 84, Calcium Level 8.2L Height (Feet): 5 Height (Inches): 7.00 Weight (Pounds): 145 General Appearance: no apparent distress EENT: normal ENT inspection Neck: normal alignment, supple Cardiovascular: normal rate, regular rhythm Respiratory/Chest: rhonchi - bilaterally Abdomen: non tender, soft Edema: no edema noted Arm (L), no edema noted Arm (R), no edema noted Leg (L), no edema noted Leg (R), no edema noted Pedal (L), no edema noted Pedal (R), no edema noted Generalized Carlos White MD Apr 29, 2019 09:26
--- NOTE | 2019-04-29 09:42 | Infectious Diseases Prog Note ---
Assessment/Plan Assessment/Plan Assessment: Shock, recurrent- off pressors -04/20 CXR: Interim extubation. Increased left greater than right pleural fluid Probable PNA, SP Rx -04/21 CXR:Shifting infiltrates on the right, with increased hazy midlung infiltrate, improved right basilar consolidation or atelectasis or pleural fluid. Slightly increased generalized mild interstitial congestion. Stable large left pleural effusion Low grade fever; SP Mild leukocytosis, recurrent- SP -04/15 sp cx normal resp sharyn (prelim) -04/14 u/a wbc 10-15, nit neg, leuk +3; ucx Neg CXR: Interim development of complete right upper lobe atelectasis. Nonspecific diffuse hazy left lung opacity, likely mild pulmonary edema. -04/07 Bcx NTD u/a wbc tnct, nit neg, leuk +; ucx neg -04/06 CXR: Interval resolution of right apical density. This suggests the diagnosis was atelectasis rather than an apical cap from blood, which was suggested as a possibility on the prior report. The right upper lobe atelectasis has resolved. Suspicion of new atelectasis at the right lung base. Sepsis, Sp UTI B/l hydroureteronephrosis -04/10 CT abd/p: Evidence of advanced metastatic neoplasm likely secondary to prostate carcinoma. Extensive retroperitoneal and pelvic lymphadenopathy complicated by presence of bilateral hydroureteronephrosis. Extensive metastatic disease involving the bones also noted. Small left pleural effusion. Right trace right pleural effusion. Right inguinal hernia containing a small amount of fluid. Alternatively this could represent part of the testis. Anasarca. -u/a wbc 20-30, nit +, leuk +3; ucx >100k E.coli (R amp, bactrim; otherwise S) Probable Aspiration pneumonitis vs PNA -04/08 CXR: Patchy perihilar disease which may be asymmetric interstitial edema or infiltrate unchanged. Interval resolution of right basal atelectasis. -04/07 sp cx normal sharyn(prelim) s/p recent fall s/p bradycardia>cardiac arrest 04/13 s/p asystole cardiac arrest 04/06 VDRF; s/p extubation 04/08 VDRF 04/13; sp extubation 04/19 LETA Hypokalemia prostate CA stage IV, mets to bone chronic indwelling guerra catheter Plan: monitor pt off of AB Rx - 04/28 Sp Cefepime #14/14 for probable PNA -04/17 SP Vanc IV #4 -2/10 SP Ceftriaxone #4 - 2/7 Sp ZOsyn #4 -2/6 SP IV Vancomycin #3 -2/ SP Ceftriaxone #4 -Monitor CBC/CMP, temperatures -aspiration precautions -Cards, renal, Uro, pulm f/u -CXR - possible transfer out to [facility] ([facility]) Thank you for this consultation. Will continue to follow along with you. Subjective Allergies: Coded Allergies: No Known Allergies (Unverified , 04/03/19) Subjective no acute event weak Objective Vital Signs Last 24 Hour Vital Signs Date Time Temp Pulse Resp B/P (MAP) Pulse Ox O2 Delivery O2 Flow Rate FiO2 04/29/19 08:00 96.7 114 20 122/69 (86) 95 114 04/29/19 07:44 82 16 98 Nasal Cannula 3.0 32 80 16 97 04/29/19 07:43 97 Nasal Cannula 3.0 32 04/29/19 04:00 116 04/29/19 04:00 Bi-pap 2.0 Nasal Cannula 04/29/19 04:00 97.8 117 20 103/69 (80) 100 117 04/29/19 04:00 30 04/29/19 02:03 98 14 99 Bi-Pap 30 96 16 97 04/29/19 01:48 98 19 97 30 04/29/19 00:00 Nasal Cannula 2.0 Nasal Cannula 2.0 04/29/19 00:00 112 04/29/19 00:00 98.2 117 21 122/82 (95) 94 117 04/29/19 00:00 2.0 04/28/19 22:23 95 20 99 Nasal Cannula 3.0 32 93 22 96 04/28/19 20:00 98.0 110 23 127/84 (98) 97 116 04/28/19 20:00 2.0 04/28/19 20:00 Nasal Cannula 2.0 Nasal Cannula 2.0 04/28/19 20:00 119 04/28/19 18:55 97 Nasal Cannula 3.0 32 04/28/19 16:00 98.5 116 20 102/74 (83) 98 116 04/28/19 16:00 Bi-pap Bi-pap 04/28/19 16:00 2.0 04/28/19 15:42 116 04/28/19 12:00 Bi-pap Bi-pap 04/28/19 12:00 2.0 04/28/19 12:00 97.6 65 19 162/70 (100) 97 65 04/28/19 11:47 112 04/28/19 11:07 107 20 100 Nasal Cannula 2.0 28 98 20 95 Height (Feet): 5 Height (Inches): 7.00 Weight (Pounds): 145 Respiratory/Chest: lungs clear Cardiovascular: regular rhythm Abdomen: no organomegaly Laboratory Tests Test 04/29/19 03:55 White Blood Count 5.8 K/UL (4.8-10.8) Red Blood Count 3.04 M/UL (4.70-6.10) L Hemoglobin 8.8 G/DL (14.2-18.0) L Hematocrit 25.6 % (42.0-52.0) L Mean Corpuscular Volume 84 FL (80-99) Mean Corpuscular Hemoglobin 28.8 PG (27.0-31.0) Mean Corpuscular Hemoglobin Concent 34.2 G/DL (32.0-36.0) Red Cell Distribution Width 14.5 % (11.6-14.8) Platelet Count 311 K/UL (150-450) Mean Platelet Volume 4.6 FL (6.5-10.1) L Neutrophils (%) (Auto) 67.3 % (45.0-75.0) Lymphocytes (%) (Auto) 10.8 % (20.0-45.0) L Monocytes (%) (Auto) 10.2 % (1.0-10.0) H Eosinophils (%) (Auto) 10.6 % (0.0-3.0) H Basophils (%) (Auto) 1.2 % (0.0-2.0) Sodium Level 139 MMOL/L (136-145) Potassium Level 4.0 MMOL/L (3.5-5.1) Chloride Level 97 MMOL/L (98-107) L Carbon Dioxide Level 31 MMOL/L (21-32) Anion Gap 11 mmol/L (5-15) Blood Urea Nitrogen 29 mg/dL (7-18) H Creatinine 1.7 MG/DL (0.55-1.30) H Estimat Glomerular Filtration Rate 48.2 mL/min (>60) Glucose Level 84 MG/DL (74-106) Calcium Level 8.2 MG/DL (8.5-10.1) L Current Medications Medications (Trade) Dose Ordered Sig/La Nena Route PRN Reason Start Time Stop Time Status Last Admin Dose Admin Acetaminophen (Tylenol) 650 mg Q6H PRN ORAL Mild Pain/Temp > 100.5 04/29/19 06:37 05/24/19 06:36 Acetylcysteine (Mucomyst) 200 mg Q4HRT N 04/29/19 07:00 05/18/19 10:59 04/29/19 07:40 Albuterol/ Ipratropium (Albuterol/ Ipratropium) 3 ml Q4HRT N 04/29/19 07:00 05/03/19 22:59 04/29/19 07:39 Enoxaparin Sodium (Lovenox) 40 mg DAILY SUBQ 04/29/19 09:00 05/25/19 08:59 04/29/19 09:24 Hydralazine HCl (Apresoline) 10 mg Q4H PRN IV SBP > 170mmHg 04/29/19 06:38 05/08/19 06:37 Lansoprazole (Prevacid) 30 mg DAILY ORAL 04/29/19 09:00 05/13/19 08:59 04/29/19 09:23 Memantine (Namenda) 5 mg BID ORAL 04/29/19 09:00 05/04/19 17:59 04/29/19 09:23 Tamsulosin HCl (Flomax) 0.4 mg BEDTIME ORAL 04/29/19 21:00 05/13/19 20:59 Tramadol HCl (Ultram) 50 mg Q8H PRN NG Moderate Pain (Pain Scale 4-6) 04/29/19 06:36 05/04/19 06:35 Bryce Osorio MD Apr 29, 2019 09:42
--- NOTE | 2019-04-29 09:51 | General Progress Note ---
Assessment/Plan Problem List: (1) UTI (urinary tract infection) ICD Codes: N39.0 - Urinary tract infection, site not specified SNOMED: 19978615 (2) Weak ICD Codes: R53.1 - Weakness SNOMED: 74321317 (3) Anemia ICD Codes: D64.9 - Anemia, unspecified SNOMED: 394706163 (4) Dehydration ICD Codes: E86.0 - Dehydration SNOMED: 73951825, 15877508 (5) Episode of generalized weakness ICD Codes: R53.1 - Weakness SNOMED: 74904169 (6) Stage III adenocarcinoma of prostate ICD Codes: C61 - Malignant neoplasm of prostate SNOMED: 407641317, 70550637 Assessment/Plan: o2 pulm tx pt diet abx iv fluid heme gi eval cbc bmp am aru vs ltach eval Subjective Constitutional: Reports: weakness Allergies: Coded Allergies: No Known Allergies (Unverified , 04/03/19) All Systems: reviewed and negative except above Subjective o2nc calm Objective Last 24 Hour Vital Signs Date Time Temp Pulse Resp B/P (MAP) Pulse Ox O2 Delivery O2 Flow Rate FiO2 04/29/19 08:00 96.7 114 20 122/69 (86) 95 114 04/29/19 07:44 82 16 98 Nasal Cannula 3.0 32 80 16 97 04/29/19 07:43 97 Nasal Cannula 3.0 32 04/29/19 04:00 116 04/29/19 04:00 Bi-pap 2.0 Nasal Cannula 04/29/19 04:00 97.8 117 20 103/69 (80) 100 117 04/29/19 04:00 30 04/29/19 02:03 98 14 99 Bi-Pap 30 96 16 97 04/29/19 01:48 98 19 97 30 04/29/19 00:00 Nasal Cannula 2.0 Nasal Cannula 2.0 04/29/19 00:00 112 04/29/19 00:00 98.2 117 21 122/82 (95) 94 117 04/29/19 00:00 2.0 04/28/19 22:23 95 20 99 Nasal Cannula 3.0 32 93 22 96 04/28/19 20:00 98.0 110 23 127/84 (98) 97 116 04/28/19 20:00 2.0 04/28/19 20:00 Nasal Cannula 2.0 Nasal Cannula 2.0 04/28/19 20:00 119 04/28/19 18:55 97 Nasal Cannula 3.0 32 04/28/19 16:00 98.5 116 20 102/74 (83) 98 116 04/28/19 16:00 Bi-pap Bi-pap 04/28/19 16:00 2.0 04/28/19 15:42 116 04/28/19 12:00 Bi-pap Bi-pap 04/28/19 12:00 2.0 04/28/19 12:00 97.6 65 19 162/70 (100) 97 65 04/28/19 11:47 112 04/28/19 11:07 107 20 100 Nasal Cannula 2.0 28 98 20 95 Intake and Output 04/28/19 04/29/19 19:00 07:00 Intake Total 420 ml Output Total 400 ml Balance 20 ml Intake Oral 420 ml Output Urine Total 400 ml Laboratory Tests 04/29/19 03:55: White Blood Count 5.8, Red Blood Count 3.04L, Hemoglobin 8.8L, Hematocrit 25.6L , Mean Corpuscular Volume 84, Mean Corpuscular Hemoglobin 28.8, Mean Corpuscular Hemoglobin Concent 34.2, Red Cell Distribution Width 14.5, Platelet Count 311, Mean Platelet Volume 4.6L, Neutrophils (%) (Auto) 67.3, Lymphocytes ( %) (Auto) 10.8L, Monocytes (%) (Auto) 10.2H, Eosinophils (%) (Auto) 10.6H, Basophils (%) (Auto) 1.2, Sodium Level 139, Potassium Level 4.0, Chloride Level 97L, Carbon Dioxide Level 31, Anion Gap 11, Blood Urea Nitrogen 29H, Creatinine 1.7H, Estimat Glomerular Filtration Rate 48.2, Glucose Level 84, Calcium Level 8.2L Height (Feet): 5 Height (Inches): 7.00 Weight (Pounds): 145 General Appearance: lethargic EENT: normal ENT inspection Neck: normal alignment Cardiovascular: normal peripheral pulses, normal rate, regular rhythm Respiratory/Chest: chest wall non-tender, lungs clear, normal breath sounds Abdomen: normal bowel sounds, non tender, soft Extremities: normal inspection Edema: no edema noted Arm (L), no edema noted Arm (R), no edema noted Leg (L), no edema noted Leg (R), no edema noted Pedal (L), no edema noted Pedal (R), no edema noted Generalized Neurologic: motor weakness Skin: normal pigmentation, warm/dry Sawyer Toussaint Apr 29, 2019 09:51
--- NOTE | 2019-04-29 10:33 | NUR ---
NURSE NOTES: Dr. Mathews in to see patient. ordered to D/D all Bipap orders. stated if there's the prob;em to call him.
[2019-04-29 12:00] VITALS: BP 100/50
--- NOTE | 2019-04-29 12:47 | Urology Progress Note ---
Assessment/Plan Assessment/Plan: 1. 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 2. Urinary retention. 3. Acute kidney injury, labile. 4. Hydronephrosis, likely chronic. 5. Proteinuria. 6. UTI and colonization. 7. Hematuria. monitor clinically maintain guerra, last replaced 04/10 hand irrigated and do PRN position is satisfactory monitor renal fxn, labile likely obst of bilateral distal ureters secondary to advanced prostate ca will need to see how aggressive pt and family want to be renal fxn improved with the new guerra consider ureteral stents or nephrostomies? flomax added abx as ordered may need to hold lovenox voiding trial at some point? d/w nursing staff family members want to take pt to [facility] Subjective Allergies: Coded Allergies: No Known Allergies (Unverified , 04/03/19) Subjective all noted, out of ICU Objective Last 24 Hour Vital Signs Date Time Temp Pulse Resp B/P (MAP) Pulse Ox O2 Delivery O2 Flow Rate FiO2 04/29/19 10:45 84 16 98 Nasal Cannula 3.0 32 82 16 96 04/29/19 09:00 2.0 04/29/19 09:00 Bi-pap 2.0 Nasal Cannula 04/29/19 08:00 113 04/29/19 08:00 96.7 114 20 122/69 (86) 95 114 04/29/19 07:44 82 16 98 Nasal Cannula 3.0 32 80 16 97 04/29/19 07:43 97 Nasal Cannula 3.0 32 04/29/19 04:00 116 04/29/19 04:00 Bi-pap 2.0 Nasal Cannula 04/29/19 04:00 97.8 117 20 103/69 (80) 100 117 04/29/19 04:00 30 04/29/19 02:03 98 14 99 Bi-Pap 30 96 16 97 04/29/19 01:48 98 19 97 30 04/29/19 00:00 Nasal Cannula 2.0 Nasal Cannula 2.0 04/29/19 00:00 112 04/29/19 00:00 98.2 117 21 122/82 (95) 94 117 04/29/19 00:00 2.0 04/28/19 22:23 95 20 99 Nasal Cannula 3.0 32 93 22 96 04/28/19 20:00 98.0 110 23 127/84 (98) 97 116 04/28/19 20:00 2.0 04/28/19 20:00 Nasal Cannula 2.0 Nasal Cannula 2.0 04/28/19 20:00 119 04/28/19 18:55 97 Nasal Cannula 3.0 32 04/28/19 16:00 98.5 116 20 102/74 (83) 98 116 04/28/19 16:00 Bi-pap Bi-pap 04/28/19 16:00 2.0 04/28/19 15:42 116 Intake and Output 04/28/19 04/29/19 19:00 07:00 Intake Total 420 ml Output Total 400 ml Balance 20 ml Intake Oral 420 ml Output Urine Total 400 ml Microbiology Date/Time Source Procedure Growth Status 04/14/19 12:45 Blood Blood Culture - Final NO GROWTH AFTER 5 DAYS Complete 04/15/19 21:40 Sputum Gram Stain - Final Complete 04/15/19 21:40 Sputum Sputum Culture - Final NORMAL UPPER RESPIRATORY DAVID PRESENT Complete 04/18/19 17:00 Stool Clostridium difficile Toxin Assay - Final Complete 04/14/19 11:25 Urine,Random Urine Culture - Final NO GROWTH AFTER 48 HOURS Complete Current Medications Medications (Trade) Dose Ordered Sig/La Nena Route PRN Reason Start Time Stop Time Status Last Admin Dose Admin Acetaminophen (Tylenol) 650 mg Q6H PRN ORAL Mild Pain/Temp > 100.5 04/29/19 06:37 05/24/19 06:36 Acetylcysteine (Mucomyst) 200 mg Q4HRT N 04/29/19 07:00 05/18/19 10:59 04/29/19 10:43 Albuterol/ Ipratropium (Albuterol/ Ipratropium) 3 ml Q4HRT N 04/29/19 07:00 05/03/19 22:59 04/29/19 10:42 Enoxaparin Sodium (Lovenox) 40 mg DAILY SUBQ 04/29/19 09:00 05/25/19 08:59 04/29/19 09:24 Hydralazine HCl (Apresoline) 10 mg Q4H PRN IV SBP > 170mmHg 04/29/19 06:38 05/08/19 06:37 Lansoprazole (Prevacid) 30 mg DAILY ORAL 04/29/19 09:00 05/13/19 08:59 04/29/19 09:23 Memantine (Namenda) 5 mg BID ORAL 04/29/19 09:00 05/04/19 17:59 04/29/19 09:23 Tamsulosin HCl (Flomax) 0.4 mg BEDTIME ORAL 04/29/19 21:00 05/13/19 20:59 Tramadol HCl (Ultram) 50 mg Q8H PRN NG Moderate Pain (Pain Scale 4-6) 04/29/19 06:36 05/04/19 06:35 Laboratory Tests 04/29/19 03:55: White Blood Count 5.8, Red Blood Count 3.04L, Hemoglobin 8.8L, Hematocrit 25.6L , Mean Corpuscular Volume 84, Mean Corpuscular Hemoglobin 28.8, Mean Corpuscular Hemoglobin Concent 34.2, Red Cell Distribution Width 14.5, Platelet Count 311, Mean Platelet Volume 4.6L, Neutrophils (%) (Auto) 67.3, Lymphocytes ( %) (Auto) 10.8L, Monocytes (%) (Auto) 10.2H, Eosinophils (%) (Auto) 10.6H, Basophils (%) (Auto) 1.2, Sodium Level 139, Potassium Level 4.0, Chloride Level 97L, Carbon Dioxide Level 31, Anion Gap 11, Blood Urea Nitrogen 29H, Creatinine 1.7H, Estimat Glomerular Filtration Rate 48.2, Glucose Level 84, Calcium Level 8.2L Height (Feet): 5 Height (Inches): 7.00 Weight (Pounds): 143 Objective exam stable guerra indwelling, yellow/allegra urine CT A/P (04/10) noted Raz Root MD Apr 29, 2019 12:47
--- NOTE | 2019-04-29 13:34 | Surgery Progress Note ---
Surgery Progress Note Subjective Procedure Performed right femoral central venous catheter insertion Symptoms: improved, passing flatus, BM, pain decreased Objective Last 24 Hour Vital Signs Date Time Temp Pulse Resp B/P (MAP) Pulse Ox O2 Delivery O2 Flow Rate FiO2 04/29/19 12:00 96.8 110 20 100/50 (67) 96 110 04/29/19 12:00 116 04/29/19 12:00 2.0 04/29/19 10:45 84 16 98 Nasal Cannula 3.0 32 82 16 96 04/29/19 09:00 2.0 04/29/19 09:00 Bi-pap 2.0 Nasal Cannula 04/29/19 08:00 113 04/29/19 08:00 96.7 114 20 122/69 (86) 95 114 04/29/19 07:44 82 16 98 Nasal Cannula 3.0 32 80 16 97 04/29/19 07:43 97 Nasal Cannula 3.0 32 04/29/19 04:00 116 04/29/19 04:00 Bi-pap 2.0 Nasal Cannula 04/29/19 04:00 97.8 117 20 103/69 (80) 100 117 04/29/19 04:00 30 04/29/19 02:03 98 14 99 Bi-Pap 30 96 16 97 04/29/19 01:48 98 19 97 30 04/29/19 00:00 Nasal Cannula 2.0 Nasal Cannula 2.0 04/29/19 00:00 112 04/29/19 00:00 98.2 117 21 122/82 (95) 94 117 04/29/19 00:00 2.0 04/28/19 22:23 95 20 99 Nasal Cannula 3.0 32 93 22 96 04/28/19 20:00 98.0 110 23 127/84 (98) 97 116 04/28/19 20:00 2.0 04/28/19 20:00 Nasal Cannula 2.0 Nasal Cannula 2.0 04/28/19 20:00 119 04/28/19 18:55 97 Nasal Cannula 3.0 32 04/28/19 16:00 98.5 116 20 102/74 (83) 98 116 04/28/19 16:00 Bi-pap Bi-pap 04/28/19 16:00 2.0 04/28/19 15:42 116 I&O Intake and Output 04/28/19 04/29/19 19:00 07:00 Intake Total 420 ml Output Total 400 ml Balance 20 ml Intake Oral 420 ml Output Urine Total 400 ml Cardiovascular: RSR Respiratory: clear, decreased breath sounds Abdomen: soft, present bowel sounds Extremities: no tenderness, no cyanosis Laboratory Tests Test 04/29/19 03:55 White Blood Count 5.8 K/UL (4.8-10.8) Red Blood Count 3.04 M/UL (4.70-6.10) L Hemoglobin 8.8 G/DL (14.2-18.0) L Hematocrit 25.6 % (42.0-52.0) L Mean Corpuscular Volume 84 FL (80-99) Mean Corpuscular Hemoglobin 28.8 PG (27.0-31.0) Mean Corpuscular Hemoglobin Concent 34.2 G/DL (32.0-36.0) Red Cell Distribution Width 14.5 % (11.6-14.8) Platelet Count 311 K/UL (150-450) Mean Platelet Volume 4.6 FL (6.5-10.1) L Neutrophils (%) (Auto) 67.3 % (45.0-75.0) Lymphocytes (%) (Auto) 10.8 % (20.0-45.0) L Monocytes (%) (Auto) 10.2 % (1.0-10.0) H Eosinophils (%) (Auto) 10.6 % (0.0-3.0) H Basophils (%) (Auto) 1.2 % (0.0-2.0) Sodium Level 139 MMOL/L (136-145) Potassium Level 4.0 MMOL/L (3.5-5.1) Chloride Level 97 MMOL/L (98-107) L Carbon Dioxide Level 31 MMOL/L (21-32) Anion Gap 11 mmol/L (5-15) Blood Urea Nitrogen 29 mg/dL (7-18) H Creatinine 1.7 MG/DL (0.55-1.30) H Estimat Glomerular Filtration Rate 48.2 mL/min (>60) Glucose Level 84 MG/DL (74-106) Calcium Level 8.2 MG/DL (8.5-10.1) L Plan Problems: (1) Cardiac arrest Assessment & Plan: Acute deterioration Cardiovascular lopez ACLS required for resuscitation Still full code Hypotensive intensive care unit requiring a new central venous catheter see note Antibiotics as per infectious caries cont current treatment improving trend labs diet as tolerated improving on bipap may require intubation if so will recommend trach will follow with fermin cont tube feeds lasix gtt family does not want thora repeat swallow may consider po intake for comfort measure does not want peg downgraded swallow noted improving thank you (2) Stage III adenocarcinoma of prostate Assessment & Plan: patient with state 3 prostate cancer pending treatment at [facility] unlikely related to acute cardiac arrest this am abd exam with mild distention no acute surgical intervention planned onc input improving extubated diet as tolerated thank you will follow with Jay Conrad Apr 29, 2019 13:34
--- NOTE | 2019-04-29 13:50 | NUR ---
*-*DISCHARGE PLANNING*-* PATIENT HAS BEEN REFERRED TO: [facility] P: [phone] F: [phone] EMAIL: [email or web address] *-*CLINICALS FAXED AND EMAILED*-*
--- NOTE | 2019-04-29 14:29 | NUR ---
RD ASSESSMENT & RECOMMENDATIONS SEE CARE ACTIVITY FOR COMPLETE ASSESSMENT DAILY ESTIMATED NEEDS: Needs based on Underweight, cancer, Pulmonary 54.7kg 30-35 kcals/kg 6624-7961 total kcals 1.25-2 g protein/kg 68-109 g total protein 25-30 mL/kg 8887-5335 total fluid mLs NUTRITION DIAGNOSIS: Underweight r/t cancer? as evidenced by pt w/ prostate cancer, elevated antigen and calcium levels, w/ generalized moderate wasting, previously poor po intake, pt is 81% of [place] body Weight, currently s/p code blue x2, re-intubated now extubated, NGT feeds held, on oral diet now w/ texture modifications. CURRENT DIET:Regular puree / NTL PO DIET RECOMMENDATIONS: Maintain Regular diet/ texture per DOUBLE SURFACE OPERATOR ADDITIONAL RECOMMENDATIONS: 1) Recalibrated bed wts for daily wts -> daily wts are inconsistent 2) Wound healing: add MVI + Vit C 250mg QD + Coleman BID 3) Monitor lytes, replete as needed 4) Rec D5% with current fair to poor po intake to prevent hypoglycemia 5) Continue Ensure Enlive TID . .
--- NOTE | 2019-04-29 15:12 | NUR ---
*-*DISCHARGE PLANNING*-* PATIENT HAS BEEN REFERRED TO: [facility] P: [phone] F: [phone] EMAIL: [email or web address] *-*--PATIENT HAS BEEN DECLINED--*-*--
--- NOTE | 2019-04-29 15:29 | NUR ---
*-*DISCHARGE PLANNING*-* PATIENT HAS BEEN DECLINED FROM: [facility] P: [phone] F: [phone] EMAIL: [email or web address] PER DR. WATSON SAYS HE WAS IS DOCTOR PRIOR TIME BEFORE AND THEY HAVE NO OTHER TREATMENT OPTIONS AVAILIBLE FOR THAT PATIENT AND FOR ANY QUESTION PLEASE CALL P: [phone]
[2019-04-29 16:00] VITALS: BP 100/63
--- NOTE | 2019-04-29 17:53 | Pulmonology Progress Note ---
Assessment/Plan Assessment/Plan IMPRESSION: 1. Status post asystolic cardiac arrest. Again on 04/13/19 2. Respiratory failure, re-intubated; and now extubated 04/20/19 3. Altered mental status. Resolved 4. Hypernatremia. Corrected. 5. Hypokalemia . Corrected. 6. History of COPD. 7. Prostate CA. DISCUSSION: 1. Off BiPAP 2. Needs PEG 3. Doing well post extubation 5. Dc diuretics 6. Transfused CXR looking better; Needs PEG; would not advise PO diet again family refused PEG No longer on BiPAP has large left pleural effusion, family refuses thoracentesis. no longer on diuresis I will discontinue BiPAP DC to [facility] at family request Ganesh Mathews M.D. Subjective Interval Events: no new events Constitutional: Reports: no symptoms HEENT: Repors: no symptoms Respiratory: Reports: no symptoms Cardiovascular: Reports: no symptoms Gastrointestinal/Abdominal: Reports: no symptoms Allergies: Coded Allergies: No Known Allergies (Unverified , 04/03/19) Objective Last 24 Hour Vital Signs Date Time Temp Pulse Resp B/P (MAP) Pulse Ox O2 Delivery O2 Flow Rate FiO2 04/29/19 16:00 97.1 114 20 100/63 (75) 100 114 04/29/19 16:00 2.0 04/29/19 16:00 117 04/29/19 14:46 88 16 98 Nasal Cannula 3.0 32 84 16 95 04/29/19 12:00 96.8 110 20 100/50 (67) 96 110 04/29/19 12:00 116 04/29/19 12:00 2.0 04/29/19 10:45 84 16 98 Nasal Cannula 3.0 32 82 16 96 04/29/19 09:00 2.0 04/29/19 09:00 Bi-pap 2.0 Nasal Cannula 04/29/19 08:00 113 04/29/19 08:00 96.7 114 20 122/69 (86) 95 114 04/29/19 07:44 82 16 98 Nasal Cannula 3.0 32 80 16 97 04/29/19 07:43 97 Nasal Cannula 3.0 32 04/29/19 04:00 116 04/29/19 04:00 Bi-pap 2.0 Nasal Cannula 04/29/19 04:00 97.8 117 20 103/69 (80) 100 117 04/29/19 04:00 30 04/29/19 02:03 98 14 99 Bi-Pap 30 96 16 97 04/29/19 01:48 98 19 97 30 04/29/19 00:00 Nasal Cannula 2.0 Nasal Cannula 2.0 04/29/19 00:00 112 04/29/19 00:00 98.2 117 21 122/82 (95) 94 117 04/29/19 00:00 2.0 04/28/19 22:23 95 20 99 Nasal Cannula 3.0 32 93 22 96 04/28/19 20:00 98.0 110 23 127/84 (98) 97 116 04/28/19 20:00 2.0 04/28/19 20:00 Nasal Cannula 2.0 Nasal Cannula 2.0 04/28/19 20:00 119 04/28/19 18:55 97 Nasal Cannula 3.0 32 Intake and Output 04/28/19 04/29/19 19:00 07:00 Intake Total 420 ml Output Total 400 ml Balance 20 ml Intake Oral 420 ml Output Urine Total 400 ml General Appearance: no acute distress HEENT: normocephalic Respiratory/Chest: chest wall non-tender, decreased breath sounds Cardiovascular: normal peripheral pulses, normal rate Abdomen: normal bowel sounds Laboratory Tests 04/29/19 03:55: White Blood Count 5.8, Red Blood Count 3.04L, Hemoglobin 8.8L, Hematocrit 25.6L , Mean Corpuscular Volume 84, Mean Corpuscular Hemoglobin 28.8, Mean Corpuscular Hemoglobin Concent 34.2, Red Cell Distribution Width 14.5, Platelet Count 311, Mean Platelet Volume 4.6L, Neutrophils (%) (Auto) 67.3, Lymphocytes ( %) (Auto) 10.8L, Monocytes (%) (Auto) 10.2H, Eosinophils (%) (Auto) 10.6H, Basophils (%) (Auto) 1.2, Sodium Level 139, Potassium Level 4.0, Chloride Level 97L, Carbon Dioxide Level 31, Anion Gap 11, Blood Urea Nitrogen 29H, Creatinine 1.7H, Estimat Glomerular Filtration Rate 48.2, Glucose Level 84, Calcium Level 8.2L Current Medications Medications (Trade) Dose Ordered Sig/La Nena Route PRN Reason Start Time Stop Time Status Last Admin Dose Admin Acetaminophen (Tylenol) 650 mg Q6H PRN ORAL Mild Pain/Temp > 100.5 04/29/19 06:37 05/24/19 06:36 Acetylcysteine (Mucomyst) 200 mg Q4HRT HHN 04/29/19 07:00 05/18/19 10:59 04/29/19 14:43 Albuterol/ Ipratropium (Albuterol/ Ipratropium) 3 ml Q4HRT N 04/29/19 07:00 05/03/19 22:59 04/29/19 14:43 Enoxaparin Sodium (Lovenox) 40 mg DAILY SUBQ 04/29/19 09:00 05/25/19 08:59 04/29/19 09:24 Hydralazine HCl (Apresoline) 10 mg Q4H PRN IV SBP > 170mmHg 04/29/19 06:38 05/08/19 06:37 Lansoprazole (Prevacid) 30 mg DAILY ORAL 04/29/19 09:00 05/13/19 08:59 04/29/19 09:23 Memantine (Namenda) 5 mg BID ORAL 04/29/19 09:00 05/04/19 17:59 04/29/19 17:24 Tamsulosin HCl (Flomax) 0.4 mg BEDTIME ORAL 04/29/19 21:00 05/13/19 20:59 Tramadol HCl (Ultram) 50 mg Q8H PRN NG Moderate Pain (Pain Scale 4-6) 04/29/19 06:36 05/04/19 06:35 Ganesh Mathews MD Apr 29, 2019 17:53
--- NOTE | 2019-04-29 19:35 | NUR ---
NURSE NOTES: Received report from BLANCA Pineda. Patient is in bed, awake and responsive. Breathing regular and unlabored with no s/s of SOB noted at this time. Patient remains on a 2L NC, with saturations in the 90's. Patient was c/o pain, PRN pain medication given per MD orders. IV on LFA, intact and saline locked. Bed remains in the lowest position, breaks engaged, and call light is within reach at all times. All other needs attended to, patient remains stable, will continue to monitor.
--- NOTE | 2019-04-29 19:48 | NUR ---
HAND-OFF: Report given to Wilbert Haegn. Plan of care endorsed.
[2019-04-29 20:00] VITALS: BP 110/87
[2019-04-29] MEDS: traMADol 50mg tab NG PRN (20:11)
[2019-04-29] MEDS: Tamsulosin 0.4mg cap ORAL SCH (20:12)
[2019-04-30] VITALS: BP 111/73
[2019-04-30] MEDS: Albuterol/Ipratropium 3ml neb HHN SCH ×7 (03:00→23:37)
[2019-04-30] MEDS: Acetylcysteine 20% Soln 4ml HHN SCH ×7 (03:00→23:37)
[2019-04-30 04:00] VITALS: BP 125/87
[2019-04-30 07:03] LABS: BASOPHILS % (AUTO) 0.8 % (0.0-2.0); EOSINOPHILS % (AUTO) 9.7 % (0.0-3.0); HEMATOCRIT 28.8 % (42.0-52.0); HEMOGLOBIN 9.5 G/DL (14.2-18.0); MEAN CORPUSCULAR VOLUME 84 FL (80-99); MONOCYTES % (AUTO) 7.6 % (1.0-10.0); NEUTROPHILS % (AUTO) 61.9 % (45.0-75.0); PLATELET COUNT 289 K/UL (150-450); RED BLOOD COUNT 3.42 M/UL (4.70-6.10); RED CELL DISTRIBUTION WIDTH 14.8 % (11.6-14.8); WHITE BLOOD COUNT 5.3 K/UL (4.8-10.8)
--- NOTE | 2019-04-30 07:27 | NUR ---
HAND-OFF: Report given to BLANCA Pineda. Patient remains stable, plan of care endorsed.
[2019-04-30 07:28] LABS: ANION GAP 11 mmol/L (5-15); BLOOD UREA NITROGEN 27 mg/dL (7-18); CALCIUM 8.8 MG/DL (8.5-10.1); CARBON DIOXIDE 33 MMOL/L (21-32); CHLORIDE 100 MMOL/L (98-107); CREATININE 1.8 MG/DL (0.55-1.30); POTASSIUM 3.5 MMOL/L (3.5-5.1); SODIUM 144 MMOL/L (136-145)
--- NOTE | 2019-04-30 07:34 | NUR ---
NURSE NOTES: Received patient resting comfortably in bed. No signs and symptoms of pain/discomfort. oxygen via nasal cannula at 2L/min. Non labored breathing. on continuos cardiac monitoring ST on the low 100's. Fall/Aspiration precautions in placed and will be observed. Call londono within patients reached. Will anticipate and attend to patients needs all throughout this shift.
[2019-04-30 08:00] VITALS: BP 126/83
--- NOTE | 2019-04-30 09:03 | General Progress Note ---
Assessment/Plan Assessment/Plan: Assessment/Plan Problems: (1) Coffee ground emesis (2) Anemia (3) metastatic prostate CA (4) respiratory failure extubated ppi patient on oral diet now with a feeder pulm recommended peg placement but family refused poor po intake will call family again today will fu Subjective ROS Limited/Unobtainable: No Allergies: Coded Allergies: No Known Allergies (Unverified , 04/03/19) Objective Last 24 Hour Vital Signs Date Time Temp Pulse Resp B/P (MAP) Pulse Ox O2 Delivery O2 Flow Rate FiO2 04/30/19 08:19 115 18 98 Nasal Cannula 4.0 36 112 17 93 04/30/19 08:00 93 Nasal Cannula 3.0 32 04/30/19 04:57 113 18 97 Nasal Cannula 4.0 36 111 18 92 04/30/19 04:00 97.6 112 18 125/87 (100) 92 112 04/30/19 04:00 2.0 04/30/19 04:00 115 04/30/19 00:00 98.0 115 18 111/73 (86) 95 115 04/30/19 00:00 128 04/30/19 00:00 2.0 04/29/19 21:00 Nasal Cannula 2.0 Nasal Cannula 2.0 04/29/19 20:00 2.0 04/29/19 20:00 97.3 119 20 110/87 (95) 90 119 04/29/19 20:00 127 04/29/19 19:47 94 Nasal Cannula 3.0 32 04/29/19 16:00 97.1 114 20 100/63 (75) 100 114 04/29/19 16:00 2.0 04/29/19 16:00 117 04/29/19 14:46 88 16 98 Nasal Cannula 3.0 32 84 16 95 04/29/19 12:00 96.8 110 20 100/50 (67) 96 110 04/29/19 12:00 116 04/29/19 12:00 2.0 04/29/19 10:45 84 16 98 Nasal Cannula 3.0 32 82 16 96 Intake and Output 04/29/19 04/30/19 19:00 07:00 Intake Total 950 ml Output Total 275 ml 401 ml Balance 675 ml -401 ml Intake Oral 950 ml Output Urine Total 275 ml 400 ml Stool Total 1 ml Laboratory Tests 04/30/19 05:05: White Blood Count 5.3, Red Blood Count 3.42L, Hemoglobin 9.5L, Hematocrit 28.8L , Mean Corpuscular Volume 84, Mean Corpuscular Hemoglobin 27.8, Mean Corpuscular Hemoglobin Concent 33.0, Red Cell Distribution Width 14.8, Platelet Count 289, Mean Platelet Volume 4.6L, Neutrophils (%) (Auto) 61.9, Lymphocytes ( %) (Auto) 20.0, Monocytes (%) (Auto) 7.6, Eosinophils (%) (Auto) 9.7H, Basophils (%) (Auto) 0.8, Sodium Level 144, Potassium Level 3.5, Chloride Level 100, Carbon Dioxide Level 33H, Anion Gap 11, Blood Urea Nitrogen 27H, Creatinine 1.8H, Estimat Glomerular Filtration Rate 45.2, Glucose Level 95, Calcium Level 8.8 Height (Feet): 5 Height (Inches): 7.00 Weight (Pounds): 143 General Appearance: alert EENT: normal ENT inspection Neck: supple Cardiovascular: normal rate Respiratory/Chest: decreased breath sounds Abdomen: normal bowel sounds, non tender, soft Extremities: non-tender Tyrone Lamb MD Apr 30, 2019 09:03
[2019-04-30] MEDS: Enoxaparin 40mg Inj SUBQ SCH (09:22)
[2019-04-30] MEDS: Memantine 5 MG TAB ORAL SCH ×2 (09:22→17:27)
--- NOTE | 2019-04-30 09:49 | Nephrology Progress Note ---
Assessment/Plan Assessment/Plan: A/P 1. CKD 3B- Cr stable stable. OK for DC from renal point 2. Prostate cancer with elevated PSA- Oncology to manage 3. Hypokalemia- replace prn 5. Hypercalcemia of malignancy- s/p pamidronate x 1 and calcitonin. Ca 8.2 6. Resp FL- resolved Subjective Date patient seen: Apr 30, 2019 Time patient seen: 09:48 ROS Limited/Unobtainable: No Allergies: Coded Allergies: No Known Allergies (Unverified , 04/03/19) Subjective Patient off BiPAP . Pending DC Objective Last 24 Hour Vital Signs Date Time Temp Pulse Resp B/P (MAP) Pulse Ox O2 Delivery O2 Flow Rate FiO2 04/30/19 08:19 115 18 98 Nasal Cannula 4.0 36 112 17 93 04/30/19 08:00 98.2 110 18 126/83 (97) 95 110 04/30/19 08:00 93 Nasal Cannula 3.0 32 04/30/19 04:57 113 18 97 Nasal Cannula 4.0 36 111 18 92 04/30/19 04:00 97.6 112 18 125/87 (100) 92 112 04/30/19 04:00 2.0 04/30/19 04:00 115 04/30/19 00:00 98.0 115 18 111/73 (86) 95 115 04/30/19 00:00 128 04/30/19 00:00 2.0 04/29/19 21:00 Nasal Cannula 2.0 Nasal Cannula 2.0 04/29/19 20:00 2.0 04/29/19 20:00 97.3 119 20 110/87 (95) 90 119 04/29/19 20:00 127 04/29/19 19:47 94 Nasal Cannula 3.0 32 04/29/19 16:00 97.1 114 20 100/63 (75) 100 114 04/29/19 16:00 2.0 04/29/19 16:00 117 04/29/19 14:46 88 16 98 Nasal Cannula 3.0 32 84 16 95 04/29/19 12:00 96.8 110 20 100/50 (67) 96 110 04/29/19 12:00 116 04/29/19 12:00 2.0 04/29/19 10:45 84 16 98 Nasal Cannula 3.0 32 82 16 96 Intake and Output 04/29/19 04/30/19 19:00 07:00 Intake Total 950 ml Output Total 275 ml 401 ml Balance 675 ml -401 ml Intake Oral 950 ml Output Urine Total 275 ml 400 ml Stool Total 1 ml Laboratory Tests 04/30/19 05:05: White Blood Count 5.3, Red Blood Count 3.42L, Hemoglobin 9.5L, Hematocrit 28.8L , Mean Corpuscular Volume 84, Mean Corpuscular Hemoglobin 27.8, Mean Corpuscular Hemoglobin Concent 33.0, Red Cell Distribution Width 14.8, Platelet Count 289, Mean Platelet Volume 4.6L, Neutrophils (%) (Auto) 61.9, Lymphocytes ( %) (Auto) 20.0, Monocytes (%) (Auto) 7.6, Eosinophils (%) (Auto) 9.7H, Basophils (%) (Auto) 0.8, Sodium Level 144, Potassium Level 3.5, Chloride Level 100, Carbon Dioxide Level 33H, Anion Gap 11, Blood Urea Nitrogen 27H, Creatinine 1.8H, Estimat Glomerular Filtration Rate 45.2, Glucose Level 95, Calcium Level 8.8 Height (Feet): 5 Height (Inches): 7.00 Weight (Pounds): 144 General Appearance: no apparent distress, alert EENT: normal ENT inspection Neck: normal alignment, normal inspection Cardiovascular: normal rate, regular rhythm Respiratory/Chest: lungs clear, normal breath sounds Abdomen: non tender, soft Edema: no edema noted Arm (L), no edema noted Arm (R), no edema noted Leg (L), no edema noted Leg (R), no edema noted Pedal (L), no edema noted Pedal (R), no edema noted Generalized Carlos White MD Apr 30, 2019 09:49
--- NOTE | 2019-04-30 10:29 | Cardiac Electrophysiology PN ---
Assessment/Plan Assessment/Plan 1. Status post 2 separate non infarctional juan antonio arrest with asystole. Both episodes happened in the setting of respiratory failure and off the Vent No evidence of ventricular tachycardia or ventricular fibrillation. Off any GARCÍA or AVN olivia EF 65%. All 3 troponins were less than 0.1. Watch for recurrence of bradycardia Family refusing any procedures until transferred to [facility] 2. Recurrent Respiratory failure, extubated 04/08/19, reintubated 04/13/19 and reextubated 04/19/19 3. History of stage III prostate cancer, followed by Dr. Monroy and Dr Root. Morales was changed. Usually follows up at [facility] 4. S/P Shock. Off Levophed 5. Hypercalcemia due to prostate cancer. 6. Hypernatremia. 7. Anemia, s/p multiple PRBCs 8. Low K. Replace 9. Dysphagia, PEG by Dr. Lamb cancelled due to lack on consent Now on Puree diet but not getting enough calories 10. Pleural effusion, off Lasix drip. Family refused thoracentesis DW RN [facility] declined patient Subjective Subjective On tele. No juan antonio yet. Actually now in sinus tach. [facility] declined him and family refusing thoracentesis or PEG until patient transferred but on Puree diet but poor intake Objective Last 24 Hour Vital Signs Date Time Temp Pulse Resp B/P (MAP) Pulse Ox O2 Delivery O2 Flow Rate FiO2 04/30/19 08:19 115 18 98 Nasal Cannula 4.0 36 112 17 93 04/30/19 08:00 2.0 04/30/19 08:00 98.2 110 18 126/83 (97) 95 110 04/30/19 08:00 107 04/30/19 08:00 93 Nasal Cannula 3.0 32 04/30/19 04:57 113 18 97 Nasal Cannula 4.0 36 111 18 92 04/30/19 04:00 97.6 112 18 125/87 (100) 92 112 04/30/19 04:00 2.0 04/30/19 04:00 115 04/30/19 00:00 98.0 115 18 111/73 (86) 95 115 04/30/19 00:00 128 04/30/19 00:00 2.0 04/29/19 21:00 Nasal Cannula 2.0 Nasal Cannula 2.0 04/29/19 20:00 2.0 04/29/19 20:00 97.3 119 20 110/87 (95) 90 119 04/29/19 20:00 127 04/29/19 19:47 94 Nasal Cannula 3.0 32 04/29/19 16:00 97.1 114 20 100/63 (75) 100 114 04/29/19 16:00 2.0 04/29/19 16:00 117 04/29/19 14:46 88 16 98 Nasal Cannula 3.0 32 84 16 95 04/29/19 12:00 96.8 110 20 100/50 (67) 96 110 04/29/19 12:00 116 04/29/19 12:00 2.0 04/29/19 10:45 84 16 98 Nasal Cannula 3.0 32 82 16 96 Intake and Output 04/29/19 04/30/19 19:00 07:00 Intake Total 950 ml Output Total 275 ml 401 ml Balance 675 ml -401 ml Intake Oral 950 ml Output Urine Total 275 ml 400 ml Stool Total 1 ml Laboratory Tests Test 04/30/19 05:05 White Blood Count 5.3 K/UL (4.8-10.8) Red Blood Count 3.42 M/UL (4.70-6.10) L Hemoglobin 9.5 G/DL (14.2-18.0) L Hematocrit 28.8 % (42.0-52.0) L Mean Corpuscular Volume 84 FL (80-99) Mean Corpuscular Hemoglobin 27.8 PG (27.0-31.0) Mean Corpuscular Hemoglobin Concent 33.0 G/DL (32.0-36.0) Red Cell Distribution Width 14.8 % (11.6-14.8) Platelet Count 289 K/UL (150-450) Mean Platelet Volume 4.6 FL (6.5-10.1) L Neutrophils (%) (Auto) 61.9 % (45.0-75.0) Lymphocytes (%) (Auto) 20.0 % (20.0-45.0) Monocytes (%) (Auto) 7.6 % (1.0-10.0) Eosinophils (%) (Auto) 9.7 % (0.0-3.0) H Basophils (%) (Auto) 0.8 % (0.0-2.0) Sodium Level 144 MMOL/L (136-145) Potassium Level 3.5 MMOL/L (3.5-5.1) Chloride Level 100 MMOL/L (98-107) Carbon Dioxide Level 33 MMOL/L (21-32) H Anion Gap 11 mmol/L (5-15) Blood Urea Nitrogen 27 mg/dL (7-18) H Creatinine 1.8 MG/DL (0.55-1.30) H Estimat Glomerular Filtration Rate 45.2 mL/min (>60) Glucose Level 95 MG/DL (74-106) Calcium Level 8.8 MG/DL (8.5-10.1) Objective HEENT: No JVD. LUNGS: Coarse rhonchi. CARDIOVASCULAR: Regular S1 and S2 ABDOMEN: Soft and nondistended. EXTREMITIES: No pitting edema. Nain Cortez MD Apr 30, 2019 10:29
--- NOTE | 2019-04-30 10:38 | Pulmonology Progress Note ---
Assessment/Plan Assessment/Plan IMPRESSION: 1. Status post asystolic cardiac arrest. Again on 04/13/19 2. Respiratory failure, re-intubated; and now extubated 04/20/19 3. Altered mental status. Resolved 4. Hypernatremia. Corrected. 5. Hypokalemia . Corrected. 6. History of COPD. 7. Prostate CA. DISCUSSION: 1. Off BiPAP 2. Needs PEG 3. Doing well post extubation 5. Dc diuretics 6. Transfused CXR looking better; Needs PEG; would not advise PO diet again family refused PEG No longer on BiPAP has large left pleural effusion, family refuses thoracentesis. DC BiPAP DC to [facility] at family request Ganesh Mathews M.D. Subjective Interval Events: None new Constitutional: Reports: no symptoms HEENT: Repors: no symptoms Respiratory: Reports: no symptoms Cardiovascular: Reports: no symptoms Gastrointestinal/Abdominal: Reports: no symptoms Allergies: Coded Allergies: No Known Allergies (Unverified , 04/03/19) Objective Last 24 Hour Vital Signs Date Time Temp Pulse Resp B/P (MAP) Pulse Ox O2 Delivery O2 Flow Rate FiO2 04/30/19 08:19 115 18 98 Nasal Cannula 4.0 36 112 17 93 04/30/19 08:00 2.0 04/30/19 08:00 98.2 110 18 126/83 (97) 95 110 04/30/19 08:00 107 04/30/19 08:00 93 Nasal Cannula 3.0 32 04/30/19 04:57 113 18 97 Nasal Cannula 4.0 36 111 18 92 04/30/19 04:00 97.6 112 18 125/87 (100) 92 112 04/30/19 04:00 2.0 04/30/19 04:00 115 04/30/19 00:00 98.0 115 18 111/73 (86) 95 115 04/30/19 00:00 128 04/30/19 00:00 2.0 04/29/19 21:00 Nasal Cannula 2.0 Nasal Cannula 2.0 04/29/19 20:00 2.0 04/29/19 20:00 97.3 119 20 110/87 (95) 90 119 04/29/19 20:00 127 04/29/19 19:47 94 Nasal Cannula 3.0 32 04/29/19 16:00 97.1 114 20 100/63 (75) 100 114 04/29/19 16:00 2.0 04/29/19 16:00 117 04/29/19 14:46 88 16 98 Nasal Cannula 3.0 32 84 16 95 04/29/19 12:00 96.8 110 20 100/50 (67) 96 110 04/29/19 12:00 116 04/29/19 12:00 2.0 04/29/19 10:45 84 16 98 Nasal Cannula 3.0 32 82 16 96 Intake and Output 04/29/19 04/30/19 19:00 07:00 Intake Total 950 ml Output Total 275 ml 401 ml Balance 675 ml -401 ml Intake Oral 950 ml Output Urine Total 275 ml 400 ml Stool Total 1 ml General Appearance: no acute distress HEENT: normocephalic Respiratory/Chest: chest wall non-tender Cardiovascular: normal peripheral pulses Abdomen: normal bowel sounds Laboratory Tests 04/30/19 05:05: White Blood Count 5.3, Red Blood Count 3.42L, Hemoglobin 9.5L, Hematocrit 28.8L , Mean Corpuscular Volume 84, Mean Corpuscular Hemoglobin 27.8, Mean Corpuscular Hemoglobin Concent 33.0, Red Cell Distribution Width 14.8, Platelet Count 289, Mean Platelet Volume 4.6L, Neutrophils (%) (Auto) 61.9, Lymphocytes ( %) (Auto) 20.0, Monocytes (%) (Auto) 7.6, Eosinophils (%) (Auto) 9.7H, Basophils (%) (Auto) 0.8, Sodium Level 144, Potassium Level 3.5, Chloride Level 100, Carbon Dioxide Level 33H, Anion Gap 11, Blood Urea Nitrogen 27H, Creatinine 1.8H, Estimat Glomerular Filtration Rate 45.2, Glucose Level 95, Calcium Level 8.8 Current Medications Medications (Trade) Dose Ordered Sig/[place]ena Route PRN Reason Start Time Stop Time Status Last Admin Dose Admin Acetaminophen (Tylenol) 650 mg Q6H PRN ORAL Mild Pain/Temp > 100.5 04/29/19 06:37 05/24/19 06:36 Acetylcysteine (Mucomyst) 200 mg Q4HRT HHN 04/29/19 07:00 05/18/19 10:59 04/30/19 08:04 Albuterol/ Ipratropium (Albuterol/ Ipratropium) 3 ml Q4HRT HHN 04/29/19 07:00 05/03/19 22:59 04/30/19 08:03 Enoxaparin Sodium (Lovenox) 40 mg DAILY SUBQ 04/29/19 09:00 05/25/19 08:59 04/30/19 09:22 Hydralazine HCl (Apresoline) 10 mg Q4H PRN IV SBP > 170mmHg 04/29/19 06:38 05/08/19 06:37 Lansoprazole (Prevacid) 30 mg DAILY ORAL 04/29/19 09:00 05/13/19 08:59 04/30/19 09:21 Memantine (Namenda) 5 mg BID ORAL 04/29/19 09:00 05/04/19 17:59 04/30/19 09:22 Tamsulosin HCl (Flomax) 0.4 mg BEDTIME ORAL 04/29/19 21:00 05/13/19 20:59 04/29/19 20:12 Tramadol HCl (Ultram) 50 mg Q8H PRN NG Moderate Pain (Pain Scale 4-6) 04/29/19 06:36 05/04/19 06:35 04/29/19 20:11 Ganesh Mathews MD Apr 30, 2019 10:38
--- NOTE | 2019-04-30 11:30 | Surgery Progress Note ---
Surgery Progress Note Subjective Procedure Performed right femoral central venous catheter insertion Symptoms: improved Additional Comments Patient seen and examined bedside. Much improved. Resting comfortably. He is awake alert responsive and states he is doing better. Objective Last 24 Hour Vital Signs Date Time Temp Pulse Resp B/P (MAP) Pulse Ox O2 Delivery O2 Flow Rate FiO2 04/30/19 08:19 115 18 98 Nasal Cannula 4.0 36 112 17 93 04/30/19 08:00 2.0 04/30/19 08:00 98.2 110 18 126/83 (97) 95 110 04/30/19 08:00 107 04/30/19 08:00 93 Nasal Cannula 3.0 32 04/30/19 04:57 113 18 97 Nasal Cannula 4.0 36 111 18 92 04/30/19 04:00 97.6 112 18 125/87 (100) 92 112 04/30/19 04:00 2.0 04/30/19 04:00 115 04/30/19 00:00 98.0 115 18 111/73 (86) 95 115 04/30/19 00:00 128 04/30/19 00:00 2.0 04/29/19 21:00 Nasal Cannula 2.0 Nasal Cannula 2.0 04/29/19 20:00 2.0 04/29/19 20:00 97.3 119 20 110/87 (95) 90 119 04/29/19 20:00 127 04/29/19 19:47 94 Nasal Cannula 3.0 32 04/29/19 16:00 97.1 114 20 100/63 (75) 100 114 04/29/19 16:00 2.0 04/29/19 16:00 117 04/29/19 14:46 88 16 98 Nasal Cannula 3.0 32 84 16 95 04/29/19 12:00 96.8 110 20 100/50 (67) 96 110 04/29/19 12:00 116 04/29/19 12:00 2.0 I&O Intake and Output 04/29/19 04/30/19 19:00 07:00 Intake Total 950 ml Output Total 275 ml 401 ml Balance 675 ml -401 ml Intake Oral 950 ml Output Urine Total 275 ml 400 ml Stool Total 1 ml Dressing: other Wound: other Drains: other Cardiovascular: RSR Respiratory: decreased breath sounds Abdomen: soft, present bowel sounds Extremities: no tenderness, no cyanosis Laboratory Tests Test 04/30/19 05:05 White Blood Count 5.3 K/UL (4.8-10.8) Red Blood Count 3.42 M/UL (4.70-6.10) L Hemoglobin 9.5 G/DL (14.2-18.0) L Hematocrit 28.8 % (42.0-52.0) L Mean Corpuscular Volume 84 FL (80-99) Mean Corpuscular Hemoglobin 27.8 PG (27.0-31.0) Mean Corpuscular Hemoglobin Concent 33.0 G/DL (32.0-36.0) Red Cell Distribution Width 14.8 % (11.6-14.8) Platelet Count 289 K/UL (150-450) Mean Platelet Volume 4.6 FL (6.5-10.1) L Neutrophils (%) (Auto) 61.9 % (45.0-75.0) Lymphocytes (%) (Auto) 20.0 % (20.0-45.0) Monocytes (%) (Auto) 7.6 % (1.0-10.0) Eosinophils (%) (Auto) 9.7 % (0.0-3.0) H Basophils (%) (Auto) 0.8 % (0.0-2.0) Sodium Level 144 MMOL/L (136-145) Potassium Level 3.5 MMOL/L (3.5-5.1) Chloride Level 100 MMOL/L (98-107) Carbon Dioxide Level 33 MMOL/L (21-32) H Anion Gap 11 mmol/L (5-15) Blood Urea Nitrogen 27 mg/dL (7-18) H Creatinine 1.8 MG/DL (0.55-1.30) H Estimat Glomerular Filtration Rate 45.2 mL/min (>60) Glucose Level 95 MG/DL (74-106) Calcium Level 8.8 MG/DL (8.5-10.1) Plan Problems: (1) Cardiac arrest Assessment & Plan: Acute deterioration Cardiovascular lopez ACLS required for resuscitation Still full code Hypotensive intensive care unit requiring a new central venous catheter see note Antibiotics as per infectious caries cont current treatment improving trend labs diet as tolerated improving on bipap may require intubation if so will recommend trach will follow with recs cont tube feeds lasix gtt family does not want thora repeat swallow may consider po intake for comfort measure does not want peg downgraded swallow noted improving thank you (2) Stage III adenocarcinoma of prostate Assessment & Plan: patient with state 3 prostate cancer pending treatment at [facility] unlikely related to acute cardiac arrest this am abd exam with mild distention no acute surgical intervention planned onc input improving extubated diet as tolerated thank you will follow with recs DAILY ESTIMATED NEEDS: Needs based on Underweight, cancer, Pulmonary 54.7kg 30-35 kcals/kg 7987-5497 total kcals 1.25-2 g protein/kg 68-109 g total protein 25-30 mL/kg 3341-9532 total fluid mLs NUTRITION DIAGNOSIS: Underweight r/t cancer? as evidenced by pt w/ prostate cancer, elevated antigen and calcium levels, w/ generalized moderate wasting, previously poor po intake, pt is 81% of Lares body Weight, currently s/p code blue x2, re-intubated now extubated, NGT feeds held, on oral diet now w/ texture modifications. CURRENT DIET:Regular puree / NTL PO DIET RECOMMENDATIONS: Maintain Regular diet/ texture per MEDICAL ASSISTANT PRN ADDITIONAL RECOMMENDATIONS: 1) Recalibrated bed wts for daily wts -> daily wts are inconsistent 2) Wound healing: add MVI + Vit C 250mg QD + Coleman BID 3) Monitor lytes, replete as needed 4) Rec D5% with current fair to poor po intake to prevent hypoglycemia 5) Continue Ensure Enlive TID . Jay Acevedo Apr 30, 2019 11:30
[2019-04-30 12:00] VITALS: BP 99/64
--- NOTE | 2019-04-30 14:00 | Progress Note ---
DATE: 04/30/2019 SUBJECTIVE: This is a 73-year-old male patient. The patient has generalized weakness, confusion, disorganized thought process, decline in cognition below baseline. He is confused, disorganized. He has altered mental status, decline in cognition below his baseline. Cognition has declined. That is why, his attending has requested daily psychiatric consultation because of his mood lability and altered mental status. DIAGNOSIS: Major depressive disorder, severe, recurrent with psychotic features, rule out dementia with psychosis. PLAN: Treat him with Namenda 5 twice a day. 20 minutes of cognitive behavioral therapy to help him identify his automatic negative thoughts, help him convert negative thoughts to more positive thoughts. Chart reviewed. Discussed with staff. Seen and assessed at bedside in the ICU step-down. Cherise Palma M.D. DR: MANDI JOB#: [id number] CC:
--- NOTE | 2019-04-30 15:02 | General Progress Note ---
Assessment/Plan Problem List: (1) UTI (urinary tract infection) ICD Codes: N39.0 - Urinary tract infection, site not specified SNOMED: 88942633 (2) Weak ICD Codes: R53.1 - Weakness SNOMED: 57869664 (3) Anemia ICD Codes: D64.9 - Anemia, unspecified SNOMED: 988929985 (4) Dehydration ICD Codes: E86.0 - Dehydration SNOMED: 62859227, 89560536 (5) Episode of generalized weakness ICD Codes: R53.1 - Weakness SNOMED: 21454124 (6) Stage III adenocarcinoma of prostate ICD Codes: C61 - Malignant neoplasm of prostate SNOMED: 722703829, 80208932 Status: stable, progressing Assessment/Plan: o2 pulm tx pt diet abx iv fluid heme gi eval cbc bmp am aru vs ltach eval Subjective Constitutional: Reports: weakness Allergies: Coded Allergies: No Known Allergies (Unverified , 04/03/19) All Systems: reviewed and negative except above Subjective o2nc calm Objective Last 24 Hour Vital Signs Date Time Temp Pulse Resp B/P (MAP) Pulse Ox O2 Delivery O2 Flow Rate FiO2 04/30/19 12:00 97.3 112 18 99/64 (76) 94 112 04/30/19 12:00 2.0 04/30/19 12:00 107 04/30/19 11:39 113 18 95 Nasal Cannula 4.0 36 110 16 90 04/30/19 09:00 Nasal Cannula 2.0 Nasal Cannula 2.0 04/30/19 08:19 115 18 98 Nasal Cannula 4.0 36 112 17 93 04/30/19 08:00 2.0 04/30/19 08:00 98.2 110 18 126/83 (97) 95 110 04/30/19 08:00 107 04/30/19 08:00 93 Nasal Cannula 3.0 32 04/30/19 04:57 113 18 97 Nasal Cannula 4.0 36 111 18 92 04/30/19 04:00 97.6 112 18 125/87 (100) 92 112 04/30/19 04:00 2.0 04/30/19 04:00 115 04/30/19 00:00 98.0 115 18 111/73 (86) 95 115 04/30/19 00:00 128 2/27/20 00:00 2.0 04/29/19 21:00 Nasal Cannula 2.0 Nasal Cannula 2.0 04/29/19 20:00 2.0 04/29/19 20:00 97.3 119 20 110/87 (95) 90 119 04/29/19 20:00 127 04/29/19 19:47 94 Nasal Cannula 3.0 32 04/29/19 16:00 97.1 114 20 100/63 (75) 100 114 04/29/19 16:00 2.0 04/29/19 16:00 117 Intake and Output 04/29/19 04/30/19 19:00 07:00 Intake Total 950 ml Output Total 275 ml 401 ml Balance 675 ml -401 ml Intake Oral 950 ml Output Urine Total 275 ml 400 ml Stool Total 1 ml Laboratory Tests 04/30/19 05:05: White Blood Count 5.3, Red Blood Count 3.42L, Hemoglobin 9.5L, Hematocrit 28.8L , Mean Corpuscular Volume 84, Mean Corpuscular Hemoglobin 27.8, Mean Corpuscular Hemoglobin Concent 33.0, Red Cell Distribution Width 14.8, Platelet Count 289, Mean Platelet Volume 4.6L, Neutrophils (%) (Auto) 61.9, Lymphocytes ( %) (Auto) 20.0, Monocytes (%) (Auto) 7.6, Eosinophils (%) (Auto) 9.7H, Basophils (%) (Auto) 0.8, Sodium Level 144, Potassium Level 3.5, Chloride Level 100, Carbon Dioxide Level 33H, Anion Gap 11, Blood Urea Nitrogen 27H, Creatinine 1.8H, Estimat Glomerular Filtration Rate 45.2, Glucose Level 95, Calcium Level 8.8 Height (Feet): 5 Height (Inches): 7.00 Weight (Pounds): 144 General Appearance: lethargic EENT: normal ENT inspection Neck: normal alignment Cardiovascular: normal peripheral pulses, normal rate, regular rhythm Respiratory/Chest: chest wall non-tender, decreased breath sounds Abdomen: normal bowel sounds, non tender, soft Extremities: normal inspection Edema: no edema noted Arm (L), no edema noted Arm (R), no edema noted Leg (L), no edema noted Leg (R), no edema noted Pedal (L), no edema noted Pedal (R), no edema noted Generalized Neurologic: motor weakness Skin: normal pigmentation, warm/dry Sawyer Toussaint DO Apr 30, 2019 15:02
--- NOTE | 2019-04-30 15:10 | Urology Progress Note ---
Assessment/Plan Status: stable, progressing Assessment/Plan: 1. 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 2. Urinary retention. 3. Acute kidney injury, labile. 4. Hydronephrosis, likely chronic. 5. Proteinuria. 6. UTI and colonization. 7. Hematuria. monitor clinically maintain guerra, last replaced 04/10 hand irrigated and do PRN position is satisfactory monitor renal fxn, labile likely obst of bilateral distal ureters secondary to advanced prostate ca will need to see how aggressive pt and family want to be renal fxn improved with the new guerra consider ureteral stents or nephrostomies? flomax added abx as ordered may need to hold lovenox voiding trial at some point? d/w nursing staff family members want to take pt to [facility] Subjective Allergies: Coded Allergies: No Known Allergies (Unverified , 04/03/19) Subjective all noted, out of ICU Objective Last 24 Hour Vital Signs Date Time Temp Pulse Resp B/P (MAP) Pulse Ox O2 Delivery O2 Flow Rate FiO2 04/30/19 12:00 97.3 112 18 99/64 (76) 94 112 04/30/19 12:00 2.0 04/30/19 12:00 107 04/30/19 11:39 113 18 95 Nasal Cannula 4.0 36 110 16 90 04/30/19 09:00 Nasal Cannula 2.0 Nasal Cannula 2.0 04/30/19 08:19 115 18 98 Nasal Cannula 4.0 36 112 17 93 04/30/19 08:00 2.0 04/30/19 08:00 98.2 110 18 126/83 (97) 95 110 04/30/19 08:00 107 04/30/19 08:00 93 Nasal Cannula 3.0 32 04/30/19 04:57 113 18 97 Nasal Cannula 4.0 36 111 18 92 04/30/19 04:00 97.6 112 18 125/87 (100) 92 112 04/30/19 04:00 2.0 04/30/19 04:00 115 04/30/19 00:00 98.0 115 18 111/73 (86) 95 115 04/30/19 00:00 128 04/30/19 00:00 2.0 04/29/19 21:00 Nasal Cannula 2.0 Nasal Cannula 2.0 04/29/19 20:00 2.0 04/29/19 20:00 97.3 119 20 110/87 (95) 90 119 04/29/19 20:00 127 04/29/19 19:47 94 Nasal Cannula 3.0 32 04/29/19 16:00 97.1 114 20 100/63 (75) 100 114 04/29/19 16:00 2.0 04/29/19 16:00 117 Intake and Output 04/29/19 04/30/19 19:00 07:00 Intake Total 950 ml Output Total 275 ml 401 ml Balance 675 ml -401 ml Intake Oral 950 ml Output Urine Total 275 ml 400 ml Stool Total 1 ml Microbiology Date/Time Source Procedure Growth Status 04/14/19 12:45 Blood Blood Culture - Final NO GROWTH AFTER 5 DAYS Complete 04/15/19 21:40 Sputum Gram Stain - Final Complete 04/15/19 21:40 Sputum Sputum Culture - Final NORMAL UPPER RESPIRATORY DAVID PRESENT Complete 04/18/19 17:00 Stool Clostridium difficile Toxin Assay - Final Complete 04/14/19 11:25 Urine,Random Urine Culture - Final NO GROWTH AFTER 48 HOURS Complete Current Medications Medications (Trade) Dose Ordered Sig/La Nena Route PRN Reason Start Time Stop Time Status Last Admin Dose Admin Acetaminophen (Tylenol) 650 mg Q6H PRN ORAL Mild Pain/Temp > 100.5 04/29/19 06:37 05/24/19 06:36 Acetylcysteine (Mucomyst) 200 mg Q4HRT N 04/29/19 07:00 05/18/19 10:59 04/30/19 11:23 Albuterol/ Ipratropium (Albuterol/ Ipratropium) 3 ml Q4HRT N 04/29/19 07:00 05/03/19 22:59 04/30/19 11:23 Ascorbic Acid (Vitamin C) 250 mg DAILY ORAL 05/01/19 09:00 05/31/19 08:59 Enoxaparin Sodium (Lovenox) 40 mg DAILY SUBQ 04/29/19 09:00 05/25/19 08:59 04/30/19 09:22 Hydralazine HCl (Apresoline) 10 mg Q4H PRN IV SBP > 170mmHg 04/29/19 06:38 05/08/19 06:37 Lansoprazole (Prevacid) 30 mg DAILY ORAL 04/29/19 09:00 05/13/19 08:59 04/30/19 09:21 Memantine (Namenda) 5 mg BID ORAL 04/29/19 09:00 05/04/19 17:59 04/30/19 09:22 Multivitamins (Multivitamins) 1 tab DAILY ORAL 05/01/19 09:00 05/31/19 08:59 Tamsulosin HCl (Flomax) 0.4 mg BEDTIME ORAL 04/29/19 21:00 05/13/19 20:59 04/29/19 20:12 Tramadol HCl (Ultram) 50 mg Q8H PRN NG Moderate Pain (Pain Scale 4-6) 04/29/19 06:36 05/04/19 06:35 04/29/19 20:11 Laboratory Tests 04/30/19 05:05: White Blood Count 5.3, Red Blood Count 3.42L, Hemoglobin 9.5L, Hematocrit 28.8L , Mean Corpuscular Volume 84, Mean Corpuscular Hemoglobin 27.8, Mean Corpuscular Hemoglobin Concent 33.0, Red Cell Distribution Width 14.8, Platelet Count 289, Mean Platelet Volume 4.6L, Neutrophils (%) (Auto) 61.9, Lymphocytes ( %) (Auto) 20.0, Monocytes (%) (Auto) 7.6, Eosinophils (%) (Auto) 9.7H, Basophils (%) (Auto) 0.8, Sodium Level 144, Potassium Level 3.5, Chloride Level 100, Carbon Dioxide Level 33H, Anion Gap 11, Blood Urea Nitrogen 27H, Creatinine 1.8H, Estimat Glomerular Filtration Rate 45.2, Glucose Level 95, Calcium Level 8.8 Height (Feet): 5 Height (Inches): 7.00 Weight (Pounds): 144 Objective exam stable guerra indwelling, yellow/allegra urine CT A/P (04/10) noted Raz Root MD Apr 30, 2019 15:10
--- NOTE | 2019-04-30 15:29 | Infectious Diseases Prog Note ---
Assessment/Plan Assessment/Plan Assessment: Shock, recurrent- off pressors -04/20 CXR: Interim extubation. Increased left greater than right pleural fluid Probable PNA, SP Rx -04/21 CXR:Shifting infiltrates on the right, with increased hazy midlung infiltrate, improved right basilar consolidation or atelectasis or pleural fluid. Slightly increased generalized mild interstitial congestion. Stable large left pleural effusion Low grade fever; SP Mild leukocytosis, recurrent- SP -04/15 sp cx normal resp sharyn (prelim) -04/14 u/a wbc 10-15, nit neg, leuk +3; ucx Neg CXR: Interim development of complete right upper lobe atelectasis. Nonspecific diffuse hazy left lung opacity, likely mild pulmonary edema. -04/07 Bcx NTD u/a wbc tnct, nit neg, leuk +; ucx neg -04/06 CXR: Interval resolution of right apical density. This suggests the diagnosis was atelectasis rather than an apical cap from blood, which was suggested as a possibility on the prior report. The right upper lobe atelectasis has resolved. Suspicion of new atelectasis at the right lung base. Sepsis, Sp UTI B/l hydroureteronephrosis -04/10 CT abd/p: Evidence of advanced metastatic neoplasm likely secondary to prostate carcinoma. Extensive retroperitoneal and pelvic lymphadenopathy complicated by presence of bilateral hydroureteronephrosis. Extensive metastatic disease involving the bones also noted. Small left pleural effusion. Right trace right pleural effusion. Right inguinal hernia containing a small amount of fluid. Alternatively this could represent part of the testis. Anasarca. -u/a wbc 20-30, nit +, leuk +3; ucx >100k E.coli (R amp, bactrim; otherwise S) Probable Aspiration pneumonitis vs PNA -04/08 CXR: Patchy perihilar disease which may be asymmetric interstitial edema or infiltrate unchanged. Interval resolution of right basal atelectasis. -04/07 sp cx normal sharyn(prelim) s/p recent fall s/p bradycardia>cardiac arrest 04/13 s/p asystole cardiac arrest 04/06 VDRF; s/p extubation 04/08 VDRF 04/13; sp extubation 04/19 LETA Hypokalemia prostate CA stage IV, mets to bone chronic indwelling guerra catheter Plan: monitor pt off of AB Rx - 04/28 Sp Cefepime #14/14 for probable PNA -04/17 SP Vanc IV #4 -2 SP Ceftriaxone #4 - 2 Sp ZOsyn #4 -2/ SP IV Vancomycin #3 -2/ SP Ceftriaxone #4 -Monitor CBC/CMP, temperatures -aspiration precautions -Cards, renal, Uro, pulm f/u -CXR - possible transfer out to [facility] Thank you for this consultation. Will continue to follow along with you. Subjective Allergies: Coded Allergies: No Known Allergies (Unverified , 04/03/19) Subjective comfortable Objective Vital Signs Last 24 Hour Vital Signs Date Time Temp Pulse Resp B/P (MAP) Pulse Ox O2 Delivery O2 Flow Rate FiO2 04/30/19 12:00 97.3 112 18 99/64 (76) 94 112 04/30/19 12:00 2.0 04/30/19 12:00 107 04/30/19 11:39 113 18 95 Nasal Cannula 4.0 36 110 16 90 04/30/19 09:00 Nasal Cannula 2.0 Nasal Cannula 2.0 04/30/19 08:19 115 18 98 Nasal Cannula 4.0 36 112 17 93 04/30/19 08:00 2.0 04/30/19 08:00 98.2 110 18 126/83 (97) 95 110 04/30/19 08:00 107 04/30/19 08:00 93 Nasal Cannula 3.0 32 04/30/19 04:57 113 18 97 Nasal Cannula 4.0 36 111 18 92 04/30/19 04:00 97.6 112 18 125/87 (100) 92 112 04/30/19 04:00 2.0 04/30/19 04:00 115 04/30/19 00:00 98.0 115 18 111/73 (86) 95 115 04/30/19 00:00 128 04/30/19 00:00 2.0 04/29/19 21:00 Nasal Cannula 2.0 Nasal Cannula 2.0 04/29/19 20:00 2.0 04/29/19 20:00 97.3 119 20 110/87 (95) 90 119 04/29/19 20:00 127 04/29/19 19:47 94 Nasal Cannula 3.0 32 04/29/19 16:00 97.1 114 20 100/63 (75) 100 114 04/29/19 16:00 2.0 04/29/19 16:00 117 Height (Feet): 5 Height (Inches): 7.00 Weight (Pounds): 144 HEENT: anicteric Respiratory/Chest: normal breath sounds Cardiovascular: regular rhythm Abdomen: soft, non tender Laboratory Tests Test 04/30/19 05:05 White Blood Count 5.3 K/UL (4.8-10.8) Red Blood Count 3.42 M/UL (4.70-6.10) L Hemoglobin 9.5 G/DL (14.2-18.0) L Hematocrit 28.8 % (42.0-52.0) L Mean Corpuscular Volume 84 FL (80-99) Mean Corpuscular Hemoglobin 27.8 PG (27.0-31.0) Mean Corpuscular Hemoglobin Concent 33.0 G/DL (32.0-36.0) Red Cell Distribution Width 14.8 % (11.6-14.8) Platelet Count 289 K/UL (150-450) Mean Platelet Volume 4.6 FL (6.5-10.1) L Neutrophils (%) (Auto) 61.9 % (45.0-75.0) Lymphocytes (%) (Auto) 20.0 % (20.0-45.0) Monocytes (%) (Auto) 7.6 % (1.0-10.0) Eosinophils (%) (Auto) 9.7 % (0.0-3.0) H Basophils (%) (Auto) 0.8 % (0.0-2.0) Sodium Level 144 MMOL/L (136-145) Potassium Level 3.5 MMOL/L (3.5-5.1) Chloride Level 100 MMOL/L (98-107) Carbon Dioxide Level 33 MMOL/L (21-32) H Anion Gap 11 mmol/L (5-15) Blood Urea Nitrogen 27 mg/dL (7-18) H Creatinine 1.8 MG/DL (0.55-1.30) H Estimat Glomerular Filtration Rate 45.2 mL/min (>60) Glucose Level 95 MG/DL (74-106) Calcium Level 8.8 MG/DL (8.5-10.1) Current Medications Medications (Trade) Dose Ordered Sig/La Nena Route PRN Reason Start Time Stop Time Status Last Admin Dose Admin Acetaminophen (Tylenol) 650 mg Q6H PRN ORAL Mild Pain/Temp > 100.5 04/29/19 06:37 05/24/19 06:36 Acetylcysteine (Mucomyst) 200 mg Q4HRT N 04/29/19 07:00 05/18/19 10:59 04/30/19 15:09 Albuterol/ Ipratropium (Albuterol/ Ipratropium) 3 ml Q4HRT N 04/29/19 07:00 05/03/19 22:59 04/30/19 15:09 Ascorbic Acid (Vitamin C) 250 mg DAILY ORAL 05/01/19 09:00 05/31/19 08:59 Enoxaparin Sodium (Lovenox) 40 mg DAILY SUBQ 04/29/19 09:00 05/25/19 08:59 04/30/19 09:22 Hydralazine HCl (Apresoline) 10 mg Q4H PRN IV SBP > 170mmHg 04/29/19 06:38 05/08/19 06:37 Lansoprazole (Prevacid) 30 mg DAILY ORAL 04/29/19 09:00 05/13/19 08:59 04/30/19 09:21 Memantine (Namenda) 5 mg BID ORAL 04/29/19 09:00 05/04/19 17:59 04/30/19 09:22 Multivitamins (Multivitamins) 1 tab DAILY ORAL 05/01/19 09:00 05/31/19 08:59 Tamsulosin HCl (Flomax) 0.4 mg BEDTIME ORAL 04/29/19 21:00 05/13/19 20:59 04/29/19 20:12 Tramadol HCl (Ultram) 50 mg Q8H PRN NG Moderate Pain (Pain Scale 4-6) 04/29/19 06:36 05/04/19 06:35 04/29/19 20:11 Bryce Osorio MD Apr 30, 2019 15:29
[2019-04-30 16:00] VITALS: BP 113/76
--- NOTE | 2019-04-30 16:37 | Hematology/Onc Progress Note ---
Assessment/Plan Assessment/Plan # Prostate cancer stage IV with psa >700, cr is worse, hydronephrosis noted, seen by renal, Dr. White. --> i did received records from [facility]. has regional lymphadenopathy, s/p transrectal biopsy with Gleasons 5+5 (2010) in all cores, apparently has had a 3 year course of androgen deprivation from 2011- 2014.also status post RADIATION to the prostate, then lost to followup. Following surviellance psa 0.45-->65, in 10/2016, and up to 127 in 12/2016, Ct scan showed recurrence of disease with lad but no bony mets, started on lupron 01/2017, psa fell yo 73-->46, has been sarted on zytiga + prednisone, and now psa progression on zytiga, he started xtandi in 01/2019 Psa 87. He did not go through urethral stenting, he has deferred treatment with chemo. --> He is a very poor historian, I have talked to the sister --> imaging has been noted --> as per urology recs, reviewed --> poor prognosis given above history of treatment, defer transfer to [facility] --> psa 737-->757 --> CT ABD 04/10: Evidence of advanced metastatic neoplasm likely secondary to prostate carcinoma. Extensive retroperitoneal and pelvic lymphadenopathy complicated by presence of bilateral hydroureteronephrosis. Extensive metastatic disease involving the bones also noted. Status post seed implant radiation therapy to the prostate gland. --> family wants to transfer to [facility] # Hypercalcemia -- now acutely worse --> trend Ca++ 8.1-->13-->12-->10.3-->10.7-->13.2 -->11-->10.5 --> ivf has been started --> as per nephrology --> calcitonin was given # Anemia due to underlying malignancy --> hgb trend as needed 9.2-->7-->10.9-->11-->9.7-->8.1-->8.6-->9.2-->9.5 --> no hemolysis is noted --> no bleeding --> blood tx: 04/18, # Episode of generalized weakness --> on ivf --> pt as needed # Pleural effusion --> no consent for peg --> family refusing peg and thoracentesis # Hypokalemia --> replete prn # Dehydration --> on ivf # Atrophic changes without evident intracranial hemorrhage. --> as per neuro, remains confused # Respiratory failure s/p vent now ext --> on bipap++ # Hypernatremia as well as low BUN --> on ivf # Poor prognosis # Dvt ppx lovenox sq # DC planning [facility] or facility Appreciate consultation and dW Rn Subjective Allergies: Coded Allergies: No Known Allergies (Unverified , 04/03/19) Subjective 04/06: no events, apparently intubated today and transferred to the icu, will dw family 04/07: remains in the icu, critically ill, Ca++ 12, on vent, minimally responsive , on dopa, dw pcp and pulm 04/08: no major changes, no night sweats, labs have been reviewed, dw daughter, he is more alert 04/10: awake, no acute events ct abd reviewed, stool ob negative 04/12: labs reviewed, nc, tachy, ceftriaxone, no sob 04/13: lethargic, nc 3l, no acute distress, labs reviewed 04/14: Ca++ remains elev 13.2, De Amy aware, on calcitonin, on lovenox 04/15: no major changes, remains intubated, seen by cards, renal, pulm, dw Kellie, kcl ordered 04/16: tolerating meds well, no bleeding, on vent, is on simv mode, nicholas Pacheco Rn 04/17: icu, vent, h/h stable, no acute events, on cefepime 04/19: remains in icu and intubated, s/p blood, hgb 8.6, c diff negative 04/20: on bipap, hgb 8.6, no major changes, in icu, requires peg 04/21: urine is red tinged this am, of vent, with nc, no bleeding, labs noted 04/22: no major changes, no bleeding r chils, no consent for procedures 04/23: icu, failed to wean from bipap, h/h stable 04/24: no events, feeling better, nicholas uro, with guerra, labs noted, no bleeding 04/26: no bleeding, no f/c, no major changes, anemia panel noted 04/27: no major events, no bleeding, no fc, labs reviewed 04/28: in sdu, no longer on bipap, family refusing peg and thoracentesis 04/29: no major changes, labs reviewed, bipap overnight, then 2lnc during day 04/30: on tele, in st, low 100's, no sob, h/h stable Objective Objective Current Medications Medications (Trade) Dose Ordered Sig/La Nena Route PRN Reason Start Time Stop Time Status Last Admin Dose Admin Acetaminophen (Tylenol) 650 mg Q6H PRN ORAL Mild Pain/Temp > 100.5 04/29/19 06:37 05/24/19 06:36 Acetylcysteine (Mucomyst) 200 mg Q4HRT N 04/29/19 07:00 05/18/19 10:59 04/30/19 15:09 Albuterol/ Ipratropium (Albuterol/ Ipratropium) 3 ml Q4HRT N 04/29/19 07:00 05/03/19 22:59 04/30/19 15:09 Ascorbic Acid (Vitamin C) 250 mg DAILY ORAL 05/01/19 09:00 05/31/19 08:59 Enoxaparin Sodium (Lovenox) 40 mg DAILY SUBQ 04/29/19 09:00 05/25/19 08:59 04/30/19 09:22 Hydralazine HCl (Apresoline) 10 mg Q4H PRN IV SBP > 170mmHg 04/29/19 06:38 05/08/19 06:37 Lansoprazole (Prevacid) 30 mg DAILY ORAL 04/29/19 09:00 05/13/19 08:59 04/30/19 09:21 Memantine (Namenda) 5 mg BID ORAL 04/29/19 09:00 05/04/19 17:59 04/30/19 09:22 Multivitamins (Multivitamins) 1 tab DAILY ORAL 05/01/19 09:00 05/31/19 08:59 Tamsulosin HCl (Flomax) 0.4 mg BEDTIME ORAL 04/29/19 21:00 05/13/19 20:59 04/29/19 20:12 Tramadol HCl (Ultram) 50 mg Q8H PRN NG Moderate Pain (Pain Scale 4-6) 04/29/19 06:36 05/04/19 06:35 04/29/19 20:11 Last 24 Hour Vital Signs Date Time Temp Pulse Resp B/P (MAP) Pulse Ox O2 Delivery O2 Flow Rate FiO2 04/30/19 12:00 97.3 112 18 99/64 (76) 94 112 04/30/19 12:00 2.0 04/30/19 12:00 107 04/30/19 11:39 113 18 95 Nasal Cannula 4.0 36 110 16 90 04/30/19 09:00 Nasal Cannula 2.0 Nasal Cannula 2.0 04/30/19 08:19 115 18 98 Nasal Cannula 4.0 36 112 17 93 04/30/19 08:00 2.0 04/30/19 08:00 98.2 110 18 126/83 (97) 95 110 04/30/19 08:00 107 04/30/19 08:00 93 Nasal Cannula 3.0 32 04/30/19 04:57 113 18 97 Nasal Cannula 4.0 36 111 18 92 04/30/19 04:00 97.6 112 18 125/87 (100) 92 112 04/30/19 04:00 2.0 04/30/19 04:00 115 04/30/19 00:00 98.0 115 18 111/73 (86) 95 115 04/30/19 00:00 128 04/30/19 00:00 2.0 04/29/19 21:00 Nasal Cannula 2.0 Nasal Cannula 2.0 04/29/19 20:00 2.0 04/29/19 20:00 97.3 119 20 110/87 (95) 90 119 04/29/19 20:00 127 04/29/19 19:47 94 Nasal Cannula 3.0 32 04/29/19 16:00 97.1 114 20 100/63 (75) 100 114 04/29/19 16:00 2.0 04/29/19 16:00 117 04/29/19 14:46 88 16 98 Nasal Cannula 3.0 32 84 16 95 04/29/19 12:00 96.8 110 20 100/50 (67) 96 110 04/29/19 12:00 116 04/29/19 12:00 2.0 04/29/19 10:45 84 16 98 Nasal Cannula 3.0 32 82 16 96 04/29/19 09:00 2.0 04/29/19 09:00 Bi-pap 2.0 Nasal Cannula 04/29/19 08:00 113 04/29/19 08:00 96.7 114 20 122/69 (86) 95 114 04/29/19 07:44 82 16 98 Nasal Cannula 3.0 32 80 16 97 04/29/19 07:43 97 Nasal Cannula 3.0 32 04/29/19 04:00 116 04/29/19 04:00 Bi-pap 2.0 Nasal Cannula 04/29/19 04:00 97.8 117 20 103/69 (80) 100 117 04/29/19 04:00 30 04/29/19 02:03 98 14 99 Bi-Pap 30 96 16 97 04/29/19 01:48 98 19 97 30 04/29/19 00:00 Nasal Cannula 2.0 Nasal Cannula 2.0 04/29/19 00:00 112 04/29/19 00:00 98.2 117 21 122/82 (95) 94 117 04/29/19 00:00 2.0 04/28/19 22:23 95 20 99 Nasal Cannula 3.0 32 93 22 96 04/28/19 20:00 98.0 110 23 127/84 (98) 97 116 04/28/19 20:00 2.0 04/28/19 20:00 Nasal Cannula 2.0 Nasal Cannula 2.0 04/28/19 20:00 119 04/28/19 18:55 97 Nasal Cannula 3.0 32 Intake and Output 04/29/19 04/30/19 19:00 07:00 Intake Total 950 ml Output Total 275 ml 401 ml Balance 675 ml -401 ml Intake Oral 950 ml Output Urine Total 275 ml 400 ml Stool Total 1 ml Labs Test 04/28/19 03:46 04/29/19 03:55 04/30/19 05:05 White Blood Count 6.3 K/UL (4.8-10.8) 5.8 K/UL (4.8-10.8) 5.3 K/UL (4.8-10.8) Red Blood Count 3.30 M/UL (4.70-6.10) 3.04 M/UL (4.70-6.10) 3.42 M/UL (4.70-6.10) Hemoglobin 9.2 G/DL (14.2-18.0) 8.8 G/DL (14.2-18.0) 9.5 G/DL (14.2-18.0) Hematocrit 27.2 % (42.0-52.0) 25.6 % (42.0-52.0) 28.8 % (42.0-52.0) Mean Corpuscular Volume 83 FL (80-99) 84 FL (80-99) 84 FL (80-99) Mean Corpuscular Hemoglobin 28.0 PG (27.0-31.0) 28.8 PG (27.0-31.0) 27.8 PG (27.0-31.0) Mean Corpuscular Hemoglobin Concent 34.0 G/DL (32.0-36.0) 34.2 G/DL (32.0-36.0) 33.0 G/DL (32.0-36.0) Red Cell Distribution Width 16.6 % (11.6-14.8) 14.5 % (11.6-14.8) 14.8 % (11.6-14.8) Platelet Count 361 K/UL (150-450) 311 K/UL (150-450) 289 K/UL (150-450) Mean Platelet Volume 6.3 FL (6.5-10.1) 4.6 FL (6.5-10.1) 4.6 FL (6.5-10.1) Neutrophils (%) (Auto) 68.6 % (45.0-75.0) 67.3 % (45.0-75.0) 61.9 % (45.0-75.0) Lymphocytes (%) (Auto) 12.3 % (20.0-45.0) 10.8 % (20.0-45.0) 20.0 % (20.0-45.0) Monocytes (%) (Auto) 9.2 % (1.0-10.0) 10.2 % (1.0-10.0) 7.6 % (1.0-10.0) Eosinophils (%) (Auto) 8.6 % (0.0-3.0) 10.6 % (0.0-3.0) 9.7 % (0.0-3.0) Basophils (%) (Auto) 1.2 % (0.0-2.0) 1.2 % (0.0-2.0) 0.8 % (0.0-2.0) Sodium Level 141 MMOL/L (136-145) 139 MMOL/L (136-145) 144 MMOL/L (136-145) Potassium Level 3.8 MMOL/L (3.5-5.1) 4.0 MMOL/L (3.5-5.1) 3.5 MMOL/L (3.5-5.1) Chloride Level 99 MMOL/L (98-107) 97 MMOL/L (98-107) 100 MMOL/L (98-107) Carbon Dioxide Level 34 MMOL/L (21-32) 31 MMOL/L (21-32) 33 MMOL/L (21-32) Anion Gap 8 mmol/L (5-15) 11 mmol/L (5-15) 11 mmol/L (5-15) Blood Urea Nitrogen 28 mg/dL (7-18) 29 mg/dL (7-18) 27 mg/dL (7-18) Creatinine 1.6 MG/DL (0.55-1.30) 1.7 MG/DL (0.55-1.30) 1.8 MG/DL (0.55-1.30) Estimat Glomerular Filtration Rate 51.8 mL/min (>60) 48.2 mL/min (>60) 45.2 mL/min (>60) Glucose Level 97 MG/DL (74-106) 84 MG/DL (74-106) 95 MG/DL (74-106) Calcium Level 8.2 MG/DL (8.5-10.1) 8.2 MG/DL (8.5-10.1) 8.8 MG/DL (8.5-10.1) Height (Feet): 5 Height (Inches): 7.00 Weight (Pounds): 144 Objective General: normal inspection, alert, Chronically Ill Respiratory: dry breath sounds b/l, nc+ Cardiovascular: regular rate, rhythm, no edema Gastrointestinal: normal inspection, normal bowel sounds Genitourinary: no CVA tenderness Mus: normal inspection, back normal, normal range of motion Neurologic: alert, motor strength/tone normal, oriented + confused Psychiatric: normal inspection, judgement/insight normal Skin: no rash Andreas Monroy MD Apr 30, 2019 16:37
--- NOTE | 2019-04-30 19:10 | NUR ---
HAND-OFF: Report given to Wilbert Brooke. Plan of care endorsed
--- NOTE | 2019-04-30 19:30 | NUR ---
NURSE NOTES: Received report from BLANCA Pineda. Patient is in bed, awake and responsive. Breathing regular and unlabored with no s/s of SOB noted at this time. Patient remains on a 2L NC. Patient currently denies any pain or discomfort at this time. Bed remains in the lowest position, breaks engaged, and call light is within reach at all times. All other needs attended to, patient remains stable, will continue to monitor.
[2019-04-30 20:00] VITALS: BP 119/78
[2019-04-30] MEDS: Tamsulosin 0.4mg cap ORAL SCH (21:23)
[2019-05-01] VITALS: BP 116/77
[2019-05-01] MEDS: Acetylcysteine 20% Soln 4ml HHN SCH ×6 (03:42→22:55)
[2019-05-01] MEDS: Albuterol/Ipratropium 3ml neb HHN SCH ×6 (03:42→22:55)
[2019-05-01 04:00] VITALS: BP 101/62
[2019-05-01 07:07] LABS: ANION GAP 7 mmol/L (5-15); BLOOD UREA NITROGEN 30 mg/dL (7-18); CALCIUM 9.1 MG/DL (8.5-10.1); CARBON DIOXIDE 36 MMOL/L (21-32); CHLORIDE 104 MMOL/L (98-107); CREATININE 1.8 MG/DL (0.55-1.30); POTASSIUM 3.2 MMOL/L (3.5-5.1); SODIUM 147 MMOL/L (136-145)
[2019-05-01 07:14] LABS: BASOPHILS % (AUTO) 1.1 % (0.0-2.0); EOSINOPHILS % (AUTO) 8.6 % (0.0-3.0); HEMATOCRIT 26.5 % (42.0-52.0); HEMOGLOBIN 8.8 G/DL (14.2-18.0); LYMPHOCYTES % (AUTO) 18.3 % (20.0-45.0); MEAN CORPUSCULAR VOLUME 85 FL (80-99); MONOCYTES % (AUTO) 10.6 % (1.0-10.0); NEUTROPHILS % (AUTO) 61.4 % (45.0-75.0); PLATELET COUNT 262 K/UL (150-450); RED BLOOD COUNT 3.14 M/UL (4.70-6.10); RED CELL DISTRIBUTION WIDTH 14.8 % (11.6-14.8); WHITE BLOOD COUNT 5.2 K/UL (4.8-10.8)
--- NOTE | 2019-05-01 07:41 | NUR ---
NURSE NOTES: Received report from BLANCA Faust. A/Ox3, Observed pt receiving breathing tx. denies any pain, no s/sx of acute distress. Pt on bilateral soft wrist restraints, pulses are present, no swelling. Bed on lowest position, call light within reach. Will continue plan of care.
--- NOTE | 2019-05-01 07:43 | Urology Progress Note ---
Assessment/Plan Status: stable, progressing Assessment/Plan: 1. 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 2. Urinary retention. 3. Acute kidney injury, labile. 4. Hydronephrosis, likely chronic. 5. Proteinuria. 6. UTI and colonization. 7. Hematuria. monitor clinically maintain guerra, last replaced 2/ hand irrigated and do PRN position is satisfactory monitor renal fxn, labile likely obst of bilateral distal ureters secondary to advanced prostate ca will need to see how aggressive pt and family want to be renal fxn improved with the new guerra consider ureteral stents or nephrostomies? flomax added abx as ordered may need to hold lovenox voiding trial at some point? d/w nursing staff family members want to take pt to [facility], [place] Subjective Allergies: Coded Allergies: No Known Allergies (Unverified , 04/03/19) Subjective all noted Objective Last 24 Hour Vital Signs Date Time Temp Pulse Resp B/P (MAP) Pulse Ox O2 Delivery O2 Flow Rate FiO2 05/01/19 07:35 111 20 99 Nasal Cannula 4.0 36 114 20 93 05/01/19 07:26 93 Nasal Cannula 4.0 36 05/01/19 04:00 2.0 05/01/19 04:00 110 05/01/19 04:00 98.1 110 19 101/62 (75) 91 110 05/01/19 03:57 115 20 98 Nasal Cannula 4.0 36 05/01/19 03:42 113 22 92 Nasal Cannula 4.0 36 05/01/19 00:00 105 05/01/19 00:00 97.7 116 19 116/77 (90) 90 116 04/30/19 23:52 116 20 98 Nasal Cannula 4.0 36 04/30/19 23:37 114 20 93 Nasal Cannula 4.0 36 04/30/19 21:04 117 20 97 Nasal Cannula 4.0 36 04/30/19 21:00 Nasal Cannula 2.0 Nasal Cannula 2.0 04/30/19 20:49 116 20 93 Nasal Cannula 4.0 36 04/30/19 20:49 93 Nasal Cannula 4.0 36 04/30/19 20:00 97.3 117 18 119/78 (92) 90 117 04/30/19 20:00 2.0 04/30/19 20:00 120 04/30/19 16:00 97.8 114 18 113/76 (88) 94 114 04/30/19 16:00 119 04/30/19 16:00 2.0 04/30/19 15:24 118 18 98 Nasal Cannula 4.0 36 114 19 94 04/30/19 12:00 97.3 112 18 99/64 (76) 94 112 04/30/19 12:00 2.0 04/30/19 12:00 107 04/30/19 11:39 113 18 95 Nasal Cannula 4.0 36 110 16 90 04/30/19 09:00 Nasal Cannula 2.0 Nasal Cannula 2.0 04/30/19 08:19 115 18 98 Nasal Cannula 4.0 36 112 17 93 04/30/19 08:00 2.0 04/30/19 08:00 98.2 110 18 126/83 (97) 95 110 04/30/19 08:00 107 04/30/19 08:00 93 Nasal Cannula 3.0 32 Intake and Output 04/30/19 05/01/19 19:00 07:00 Intake Total 800 ml Output Total 800 ml Balance 800 ml -800 ml Intake Oral 800 ml Output Urine Total 800 ml Microbiology Date/Time Source Procedure Growth Status 04/14/19 12:45 Blood Blood Culture - Final NO GROWTH AFTER 5 DAYS Complete 04/15/19 21:40 Sputum Gram Stain - Final Complete 04/15/19 21:40 Sputum Sputum Culture - Final NORMAL UPPER RESPIRATORY DAVID PRESENT Complete 04/18/19 17:00 Stool Clostridium difficile Toxin Assay - Final Complete 04/14/19 11:25 Urine,Random Urine Culture - Final NO GROWTH AFTER 48 HOURS Complete Current Medications Medications (Trade) Dose Ordered Sig/La Nena Route PRN Reason Start Time Stop Time Status Last Admin Dose Admin Acetaminophen (Tylenol) 650 mg Q6H PRN ORAL Mild Pain/Temp > 100.5 04/29/19 06:37 05/24/19 06:36 Acetylcysteine (Mucomyst) 200 mg Q4HRT [facility] 04/29/19 07:00 05/18/19 10:59 05/01/19 07:24 Albuterol/ Ipratropium (Albuterol/ Ipratropium) 3 ml Q4HRT [facility] 04/29/19 07:00 05/03/19 22:59 05/01/19 07:24 Ascorbic Acid (Vitamin C) 250 mg DAILY ORAL 05/01/19 09:00 05/31/19 08:59 Enoxaparin Sodium (Lovenox) 40 mg DAILY SUBQ 04/29/19 09:00 05/25/19 08:59 04/30/19 09:22 Hydralazine HCl (Apresoline) 10 mg Q4H PRN IV SBP > 170mmHg 04/29/19 06:38 05/08/19 06:37 Lansoprazole (Prevacid) 30 mg DAILY ORAL 04/29/19 09:00 05/13/19 08:59 04/30/19 09:21 Memantine (Namenda) 5 mg BID ORAL 04/29/19 09:00 05/04/19 17:59 04/30/19 17:27 Multivitamins (Multivitamins) 1 tab DAILY ORAL 05/01/19 09:00 05/31/19 08:59 Tamsulosin HCl (Flomax) 0.4 mg BEDTIME ORAL 04/29/19 21:00 05/13/19 20:59 04/30/19 21:23 Tramadol HCl (Ultram) 50 mg Q8H PRN NG Moderate Pain (Pain Scale 4-6) 04/29/19 06:36 05/04/19 06:35 04/29/19 20:11 Laboratory Tests 05/01/19 06:16: White Blood Count 5.2, Red Blood Count 3.14L, Hemoglobin 8.8L, Hematocrit 26.5L , Mean Corpuscular Volume 85, Mean Corpuscular Hemoglobin 28.0, Mean Corpuscular Hemoglobin Concent 33.1, Red Cell Distribution Width 14.8, Platelet Count 262, Mean Platelet Volume 4.5L, Neutrophils (%) (Auto) 61.4, Lymphocytes ( %) (Auto) 18.3L, Monocytes (%) (Auto) 10.6H, Eosinophils (%) (Auto) 8.6H, Basophils (%) (Auto) 1.1, Sodium Level 147H, Potassium Level 3.2L, Chloride Level 104, Carbon Dioxide Level 36H, Anion Gap 7, Blood Urea Nitrogen 30H, Creatinine 1.8H, Estimat Glomerular Filtration Rate 45.2, Glucose Level 106, Calcium Level 9.1 Height (Feet): 5 Height (Inches): 7.00 Weight (Pounds): 144 Objective exam stable guerra indwelling, yellow/allegra urine CT A/P (04/10) noted Raz Root MD May 01, 2019 07:43
--- NOTE | 2019-05-01 07:54 | NUR ---
HAND-OFF: Report given to BLANCA Arroyo. Pastient is in stable condition. Plan of care endorsed.
[2019-05-01 08:12] VITALS: BP 100/71
[2019-05-01] MEDS: Memantine 5 MG TAB ORAL SCH ×2 (09:31→18:19)
[2019-05-01] MEDS: Ascorbic Acid 500mg tab ORAL SCH (09:31)
[2019-05-01] MEDS: Enoxaparin 40mg Inj SUBQ SCH (09:34)
--- NOTE | 2019-05-01 10:38 | GI Progress Note ---
Assessment/Plan Problems: (1) Coffee ground emesis ICD Codes: K92.0 - Hematemesis SNOMED: 64146514 (2) Anemia ICD Codes: D64.9 - Anemia, unspecified SNOMED: 340120427 Status: unchanged Status Narrative Discussed with Dr. Lamb. Assessment/Plan (1) Coffee ground emesis (2) Anemia (3) metastatic prostate CA (4) respiratory failure ST evaluation reviewed >> puree and nectar thick extubated ppi patient on oral diet now with a feeder pulm recommended peg placement but family refused poor po intake, will add marinol will fu The patient was seen and examined at bedside and all new and available data was reviewed in the patients chart. I agree with the above findings, impression and plan. (Patient seen earlier today. Signature stamp does not reflect patient encounter time.). - Tyrone Lamb MD Subjective Subjective limited Objective Last 24 Hour Vital Signs Date Time Temp Pulse Resp B/P (MAP) Pulse Ox O2 Delivery O2 Flow Rate FiO2 05/01/19 08:20 Nasal Cannula 2.0 Nasal Cannula 2.0 05/01/19 08:12 97.0 114 18 100/71 (81) 96 05/01/19 07:47 108 05/01/19 07:35 111 20 99 Nasal Cannula 4.0 36 114 20 93 05/01/19 07:26 93 Nasal Cannula 4.0 36 05/01/19 04:00 2.0 05/01/19 04:00 110 05/01/19 04:00 98.1 110 19 101/62 (75) 91 110 05/01/19 03:57 115 20 98 Nasal Cannula 4.0 36 05/01/19 03:42 113 22 92 Nasal Cannula 4.0 36 05/01/19 00:00 105 05/01/19 00:00 97.7 116 19 116/77 (90) 90 116 04/30/19 23:52 116 20 98 Nasal Cannula 4.0 36 04/30/19 23:37 114 20 93 Nasal Cannula 4.0 36 04/30/19 21:04 117 20 97 Nasal Cannula 4.0 36 04/30/19 21:00 Nasal Cannula 2.0 Nasal Cannula 2.0 04/30/19 20:49 116 20 93 Nasal Cannula 4.0 36 04/30/19 20:49 93 Nasal Cannula 4.0 36 04/30/19 20:00 97.3 117 18 119/78 (92) 90 117 04/30/19 20:00 2.0 04/30/19 20:00 120 04/30/19 16:00 97.8 114 18 113/76 (88) 94 114 04/30/19 16:00 119 04/30/19 16:00 2.0 04/30/19 15:24 118 18 98 Nasal Cannula 4.0 36 114 19 94 04/30/19 12:00 97.3 112 18 99/64 (76) 94 112 04/30/19 12:00 2.0 04/30/19 12:00 107 04/30/19 11:39 113 18 95 Nasal Cannula 4.0 36 110 16 90 Intake and Output 04/30/19 05/01/19 19:00 07:00 Intake Total 800 ml Output Total 800 ml Balance 800 ml -800 ml Intake Oral 800 ml Output Urine Total 800 ml Laboratory Tests Test 05/01/19 06:16 White Blood Count 5.2 K/UL (4.8-10.8) Red Blood Count 3.14 M/UL (4.70-6.10) L Hemoglobin 8.8 G/DL (14.2-18.0) L Hematocrit 26.5 % (42.0-52.0) L Mean Corpuscular Volume 85 FL (80-99) Mean Corpuscular Hemoglobin 28.0 PG (27.0-31.0) Mean Corpuscular Hemoglobin Concent 33.1 G/DL (32.0-36.0) Red Cell Distribution Width 14.8 % (11.6-14.8) Platelet Count 262 K/UL (150-450) Mean Platelet Volume 4.5 FL (6.5-10.1) L Neutrophils (%) (Auto) 61.4 % (45.0-75.0) Lymphocytes (%) (Auto) 18.3 % (20.0-45.0) L Monocytes (%) (Auto) 10.6 % (1.0-10.0) H Eosinophils (%) (Auto) 8.6 % (0.0-3.0) H Basophils (%) (Auto) 1.1 % (0.0-2.0) Sodium Level 147 MMOL/L (136-145) H Potassium Level 3.2 MMOL/L (3.5-5.1) L Chloride Level 104 MMOL/L (98-107) Carbon Dioxide Level 36 MMOL/L (21-32) H Anion Gap 7 mmol/L (5-15) Blood Urea Nitrogen 30 mg/dL (7-18) H Creatinine 1.8 MG/DL (0.55-1.30) H Estimat Glomerular Filtration Rate 45.2 mL/min (>60) Glucose Level 106 MG/DL (74-106) Calcium Level 9.1 MG/DL (8.5-10.1) Height (Feet): 5 Height (Inches): 7.00 Weight (Pounds): 144 General Appearance: no apparent distress, thin Cardiovascular: normal rate Respiratory/Chest: normal breath sounds, no respiratory distress Abdominal Exam: normal bowel sounds, non tender, soft Extremities: non-tender Claudia Franklin NP May 01, 2019 10:38
--- NOTE | 2019-05-01 10:39 | Infectious Diseases Prog Note ---
Assessment/Plan Assessment/Plan Assessment: Shock, recurrent- off pressors -04/20 CXR: Interim extubation. Increased left greater than right pleural fluid Probable PNA, SP Rx -04/21 CXR:Shifting infiltrates on the right, with increased hazy midlung infiltrate, improved right basilar consolidation or atelectasis or pleural fluid. Slightly increased generalized mild interstitial congestion. Stable large left pleural effusion Low grade fever; SP Mild leukocytosis, recurrent- SP -04/15 sp cx normal resp sharyn (prelim) -04/14 u/a wbc 10-15, nit neg, leuk +3; ucx Neg CXR: Interim development of complete right upper lobe atelectasis. Nonspecific diffuse hazy left lung opacity, likely mild pulmonary edema. -04/07 Bcx NTD u/a wbc tnct, nit neg, leuk +; ucx neg -04/06 CXR: Interval resolution of right apical density. This suggests the diagnosis was atelectasis rather than an apical cap from blood, which was suggested as a possibility on the prior report. The right upper lobe atelectasis has resolved. Suspicion of new atelectasis at the right lung base. Sepsis, Sp UTI, Sp Rx B/l hydroureteronephrosis -04/10 CT abd/p: Evidence of advanced metastatic neoplasm likely secondary to prostate carcinoma. Extensive retroperitoneal and pelvic lymphadenopathy complicated by presence of bilateral hydroureteronephrosis. Extensive metastatic disease involving the bones also noted. Small left pleural effusion. Right trace right pleural effusion. Right inguinal hernia containing a small amount of fluid. Alternatively this could represent part of the testis. Anasarca. -u/a wbc 20-30, nit +, leuk +3; ucx >100k E.coli (R amp, bactrim; otherwise S) Probable Aspiration pneumonitis vs PNA -04/08 CXR: Patchy perihilar disease which may be asymmetric interstitial edema or infiltrate unchanged. Interval resolution of right basal atelectasis. -04/07 sp cx normal sharyn(prelim) s/p recent fall s/p bradycardia>cardiac arrest 04/13 s/p asystole cardiac arrest 04/06 VDRF; s/p extubation 04/08 VDRF 04/13; sp extubation 04/19 LETA Hypokalemia prostate CA stage IV, mets to bone chronic indwelling guerra catheter Plan: monitor pt off of AB Rx - 04/28 Sp Cefepime #14/ for probable PNA -04/17 SP Vanc IV #4 -04/13 SP Ceftriaxone #4 - 2 Sp ZOsyn #4 -04/09 SP IV Vancomycin #3 -2/ SP Ceftriaxone #4 -Monitor CBC/CMP, temperatures -aspiration precautions -Cards, renal, Uro, pulm f/u -CXR - possible transfer out to [facility] Thank you for this consultation. Will continue to follow along with you. Subjective Allergies: Coded Allergies: No Known Allergies (Unverified , 04/03/19) Subjective afebrile comfortable no acute event Objective Vital Signs Last 24 Hour Vital Signs Date Time Temp Pulse Resp B/P (MAP) Pulse Ox O2 Delivery O2 Flow Rate FiO2 05/01/19 08:20 Nasal Cannula 2.0 Nasal Cannula 2.0 05/01/19 08:12 97.0 114 18 100/71 (81) 96 05/01/19 07:47 108 05/01/19 07:35 111 20 99 Nasal Cannula 4.0 36 114 20 93 05/01/19 07:26 93 Nasal Cannula 4.0 36 05/01/19 04:00 2.0 05/01/19 04:00 110 05/01/19 04:00 98.1 110 19 101/62 (75) 91 110 05/01/19 03:57 115 20 98 Nasal Cannula 4.0 36 05/01/19 03:42 113 22 92 Nasal Cannula 4.0 36 05/01/19 00:00 105 05/01/19 00:00 97.7 116 19 116/77 (90) 90 116 04/30/19 23:52 116 20 98 Nasal Cannula 4.0 36 04/30/19 23:37 114 20 93 Nasal Cannula 4.0 36 04/30/19 21:04 117 20 97 Nasal Cannula 4.0 36 04/30/19 21:00 Nasal Cannula 2.0 Nasal Cannula 2.0 04/30/19 20:49 116 20 93 Nasal Cannula 4.0 36 04/30/19 20:49 93 Nasal Cannula 4.0 36 04/30/19 20:00 97.3 117 18 119/78 (92) 90 117 04/30/19 20:00 2.0 04/30/19 20:00 120 04/30/19 16:00 97.8 114 18 113/76 (88) 94 114 04/30/19 16:00 119 04/30/19 16:00 2.0 04/30/19 15:24 118 18 98 Nasal Cannula 4.0 36 114 19 94 04/30/19 12:00 97.3 112 18 99/64 (76) 94 112 04/30/19 12:00 2.0 04/30/19 12:00 107 04/30/19 11:39 113 18 95 Nasal Cannula 4.0 36 110 16 90 Height (Feet): 5 Height (Inches): 7.00 Weight (Pounds): 144 HEENT: anicteric Respiratory/Chest: no accessory muscle use Cardiovascular: regular rhythm Abdomen: no organomegaly Laboratory Tests Test 05/01/19 06:16 White Blood Count 5.2 K/UL (4.8-10.8) Red Blood Count 3.14 M/UL (4.70-6.10) L Hemoglobin 8.8 G/DL (14.2-18.0) L Hematocrit 26.5 % (42.0-52.0) L Mean Corpuscular Volume 85 FL (80-99) Mean Corpuscular Hemoglobin 28.0 PG (27.0-31.0) Mean Corpuscular Hemoglobin Concent 33.1 G/DL (32.0-36.0) Red Cell Distribution Width 14.8 % (11.6-14.8) Platelet Count 262 K/UL (150-450) Mean Platelet Volume 4.5 FL (6.5-10.1) L Neutrophils (%) (Auto) 61.4 % (45.0-75.0) Lymphocytes (%) (Auto) 18.3 % (20.0-45.0) L Monocytes (%) (Auto) 10.6 % (1.0-10.0) H Eosinophils (%) (Auto) 8.6 % (0.0-3.0) H Basophils (%) (Auto) 1.1 % (0.0-2.0) Sodium Level 147 MMOL/L (136-145) H Potassium Level 3.2 MMOL/L (3.5-5.1) L Chloride Level 104 MMOL/L (98-107) Carbon Dioxide Level 36 MMOL/L (21-32) H Anion Gap 7 mmol/L (5-15) Blood Urea Nitrogen 30 mg/dL (7-18) H Creatinine 1.8 MG/DL (0.55-1.30) H Estimat Glomerular Filtration Rate 45.2 mL/min (>60) Glucose Level 106 MG/DL (74-106) Calcium Level 9.1 MG/DL (8.5-10.1) Current Medications Medications (Trade) Dose Ordered Sig/[place] Nena Route PRN Reason Start Time Stop Time Status Last Admin Dose Admin Acetaminophen (Tylenol) 650 mg Q6H PRN ORAL Mild Pain/Temp > 100.5 04/29/19 06:37 05/24/19 06:36 Acetylcysteine (Mucomyst) 200 mg Q4HRT N 04/29/19 07:00 05/18/19 10:59 05/01/19 07:24 Albuterol/ Ipratropium (Albuterol/ Ipratropium) 3 ml Q4HRT [facility] 04/29/19 07:00 05/03/19 22:59 05/01/19 07:24 Ascorbic Acid (Vitamin C) 250 mg DAILY ORAL 05/01/19 09:00 05/31/19 08:59 05/01/19 09:31 Enoxaparin Sodium (Lovenox) 40 mg DAILY SUBQ 04/29/19 09:00 05/25/19 08:59 05/01/19 09:34 Hydralazine HCl (Apresoline) 10 mg Q4H PRN IV SBP > 170mmHg 04/29/19 06:38 05/08/19 06:37 Lansoprazole (Prevacid) 30 mg DAILY ORAL 04/29/19 09:00 05/13/19 08:59 05/01/19 09:31 Memantine (Namenda) 5 mg BID ORAL 04/29/19 09:00 05/04/19 17:59 05/01/19 09:31 Multivitamins (Multivitamins) 1 tab DAILY ORAL 05/01/19 09:00 05/31/19 08:59 05/01/19 09:31 Tamsulosin HCl (Flomax) 0.4 mg BEDTIME ORAL 04/29/19 21:00 05/13/19 20:59 04/30/19 21:23 Tramadol HCl (Ultram) 50 mg Q8H PRN NG Moderate Pain (Pain Scale 4-6) 04/29/19 06:36 05/04/19 06:35 04/29/19 20:11 Bryce Osorio MD May 01, 2019 10:39
--- NOTE | 2019-05-01 10:55 | Nephrology Progress Note ---
Assessment/Plan Status: unchanged Assessment/Plan: A/P 1. CKD 3B- Cr stable 1.6-1.8 stable. 2. Prostate cancer with elevated PSA- Oncology to manage 3. Hypokalemia- replace today 40 meq 5. Hypercalcemia of malignancy- s/p pamidronate x 1 and calcitonin. 6. Resp FL- resolved Subjective Date patient seen: May 01, 2019 Time patient seen: 10:53 ROS Limited/Unobtainable: No Allergies: Coded Allergies: No Known Allergies (Unverified , 04/03/19) Subjective Patient awaiting DC to SNF Objective Last 24 Hour Vital Signs Date Time Temp Pulse Resp B/P (MAP) Pulse Ox O2 Delivery O2 Flow Rate FiO2 05/01/19 08:20 Nasal Cannula 2.0 Nasal Cannula 2.0 05/01/19 08:12 97.0 114 18 100/71 (81) 96 05/01/19 07:47 108 05/01/19 07:35 111 20 99 Nasal Cannula 4.0 36 114 20 93 05/01/19 07:26 93 Nasal Cannula 4.0 36 05/01/19 04:00 2.0 05/01/19 04:00 110 05/01/19 04:00 98.1 110 19 101/62 (75) 91 110 05/01/19 03:57 115 20 98 Nasal Cannula 4.0 36 05/01/19 03:42 113 22 92 Nasal Cannula 4.0 36 05/01/19 00:00 105 05/01/19 00:00 97.7 116 19 116/77 (90) 90 116 04/30/19 23:52 116 20 98 Nasal Cannula 4.0 36 04/30/19 23:37 114 20 93 Nasal Cannula 4.0 36 04/30/19 21:04 117 20 97 Nasal Cannula 4.0 36 04/30/19 21:00 Nasal Cannula 2.0 Nasal Cannula 2.0 04/30/19 20:49 116 20 93 Nasal Cannula 4.0 36 04/30/19 20:49 93 Nasal Cannula 4.0 36 04/30/19 20:00 97.3 117 18 119/78 (92) 90 117 04/30/19 20:00 2.0 04/30/19 20:00 120 04/30/19 16:00 97.8 114 18 113/76 (88) 94 114 04/30/19 16:00 119 04/30/19 16:00 2.0 04/30/19 15:24 118 18 98 Nasal Cannula 4.0 36 114 19 94 04/30/19 12:00 97.3 112 18 99/64 (76) 94 112 04/30/19 12:00 2.0 04/30/19 12:00 107 04/30/19 11:39 113 18 95 Nasal Cannula 4.0 36 110 16 90 Intake and Output 04/30/19 05/01/19 19:00 07:00 Intake Total 800 ml Output Total 800 ml Balance 800 ml -800 ml Intake Oral 800 ml Output Urine Total 800 ml Laboratory Tests 05/01/19 06:16: White Blood Count 5.2, Red Blood Count 3.14L, Hemoglobin 8.8L, Hematocrit 26.5L , Mean Corpuscular Volume 85, Mean Corpuscular Hemoglobin 28.0, Mean Corpuscular Hemoglobin Concent 33.1, Red Cell Distribution Width 14.8, Platelet Count 262, Mean Platelet Volume 4.5L, Neutrophils (%) (Auto) 61.4, Lymphocytes ( %) (Auto) 18.3L, Monocytes (%) (Auto) 10.6H, Eosinophils (%) (Auto) 8.6H, Basophils (%) (Auto) 1.1, Sodium Level 147H, Potassium Level 3.2L, Chloride Level 104, Carbon Dioxide Level 36H, Anion Gap 7, Blood Urea Nitrogen 30H, Creatinine 1.8H, Estimat Glomerular Filtration Rate 45.2, Glucose Level 106, Calcium Level 9.1 Height (Feet): 5 Height (Inches): 7.00 Weight (Pounds): 142 General Appearance: no apparent distress, alert EENT: normal ENT inspection Neck: normal alignment Cardiovascular: normal rate, regular rhythm Respiratory/Chest: rhonchi - bilaterally Abdomen: non tender, soft Edema: no edema noted Arm (L), no edema noted Arm (R), no edema noted Leg (L), no edema noted Leg (R), no edema noted Pedal (L), no edema noted Pedal (R), no edema noted Generalized Carlos White MD May 01, 2019 10:55
--- NOTE | 2019-05-01 11:03 | NUR ---
RD ASSESSMENT & RECOMMENDATIONS SEE CARE ACTIVITY FOR COMPLETE ASSESSMENT DAILY ESTIMATED NEEDS: Needs based on Underweight, cancer, Pulmonary 54.7kg 30-35 kcals/kg 8216-6727 total kcals 1.25-2 g protein/kg 68-109 g total protein 25-30 mL/kg 6307-3975 total fluid mLs NUTRITION DIAGNOSIS: Underweight r/t cancer? as evidenced by pt w/ prostate cancer, elevated antigen and calcium levels, w/ generalized moderate wasting, previously poor po intake, pt is 81% of [place] body Weight, currently s/p code blue x2, re-intubated now extubated, NGT feeds held, on oral diet now w/ texture modifications. CURRENT DIET:Regular puree / NTL PO DIET RECOMMENDATIONS: Maintain Regular diet/ texture per [employer] [employer] ADDITIONAL RECOMMENDATIONS: 1) Recalibrated bed wts for daily wts -> daily wts are inconsistent 2) Wound healing: add MVI + Vit C 250mg QD + Coleman BID 3) Monitor lytes, replete as needed 4) Rec D5% with current fair to poor po intake to prevent hypoglycemia 5) Continue Ensure TID Add snacks in b/w meals .
--- NOTE | 2019-05-01 11:52 | General Progress Note ---
Assessment/Plan Problem List: (1) UTI (urinary tract infection) ICD Codes: N39.0 - Urinary tract infection, site not specified SNOMED: 43771088 (2) Weak ICD Codes: R53.1 - Weakness SNOMED: 10595384 (3) Anemia ICD Codes: D64.9 - Anemia, unspecified SNOMED: 409969921 (4) Dehydration ICD Codes: E86.0 - Dehydration SNOMED: 64500349, 17356440 (5) Episode of generalized weakness ICD Codes: R53.1 - Weakness SNOMED: 43621690 (6) Stage III adenocarcinoma of prostate ICD Codes: C61 - Malignant neoplasm of prostate SNOMED: 725240034, 61729093 Status: stable, progressing Assessment/Plan: o2 pulm tx pt diet abx iv fluid heme gi eval cbc bmp am aru vs ltach eval Subjective Constitutional: Reports: weakness Allergies: Coded Allergies: No Known Allergies (Unverified , 04/03/19) All Systems: reviewed and negative except above Subjective o2nc calm Objective Last 24 Hour Vital Signs Date Time Temp Pulse Resp B/P (MAP) Pulse Ox O2 Delivery O2 Flow Rate FiO2 05/01/19 10:51 108 20 98 Nasal Cannula 4.0 36 111 20 93 05/01/19 08:20 Nasal Cannula 2.0 Nasal Cannula 2.0 05/01/19 08:12 97.0 114 18 100/71 (81) 96 05/01/19 07:47 108 05/01/19 07:35 111 20 99 Nasal Cannula 4.0 36 114 20 93 05/01/19 07:26 93 Nasal Cannula 4.0 36 05/01/19 04:00 2.0 05/01/19 04:00 110 05/01/19 04:00 98.1 110 19 101/62 (75) 91 110 05/01/19 03:57 115 20 98 Nasal Cannula 4.0 36 05/01/19 03:42 113 22 92 Nasal Cannula 4.0 36 05/01/19 00:00 105 05/01/19 00:00 97.7 116 19 116/77 (90) 90 116 04/30/19 23:52 116 20 98 Nasal Cannula 4.0 36 04/30/19 23:37 114 20 93 Nasal Cannula 4.0 36 04/30/19 21:04 117 20 97 Nasal Cannula 4.0 36 04/30/19 21:00 Nasal Cannula 2.0 Nasal Cannula 2.0 04/30/19 20:49 116 20 93 Nasal Cannula 4.0 36 04/30/19 20:49 93 Nasal Cannula 4.0 36 04/30/19 20:00 97.3 117 18 119/78 (92) 90 117 04/30/19 20:00 2.0 04/30/19 20:00 120 04/30/19 16:00 97.8 114 18 113/76 (88) 94 114 04/30/19 16:00 119 04/30/19 16:00 2.0 04/30/19 15:24 118 18 98 Nasal Cannula 4.0 36 114 19 94 04/30/19 12:00 97.3 112 18 99/64 (76) 94 112 04/30/19 12:00 2.0 04/30/19 12:00 107 Intake and Output 04/30/19 05/01/19 19:00 07:00 Intake Total 800 ml Output Total 800 ml Balance 800 ml -800 ml Intake Oral 800 ml Output Urine Total 800 ml Laboratory Tests 05/01/19 06:16: White Blood Count 5.2, Red Blood Count 3.14L, Hemoglobin 8.8L, Hematocrit 26.5L , Mean Corpuscular Volume 85, Mean Corpuscular Hemoglobin 28.0, Mean Corpuscular Hemoglobin Concent 33.1, Red Cell Distribution Width 14.8, Platelet Count 262, Mean Platelet Volume 4.5L, Neutrophils (%) (Auto) 61.4, Lymphocytes ( %) (Auto) 18.3L, Monocytes (%) (Auto) 10.6H, Eosinophils (%) (Auto) 8.6H, Basophils (%) (Auto) 1.1, Sodium Level 147H, Potassium Level 3.2L, Chloride Level 104, Carbon Dioxide Level 36H, Anion Gap 7, Blood Urea Nitrogen 30H, Creatinine 1.8H, Estimat Glomerular Filtration Rate 45.2, Glucose Level 106, Calcium Level 9.1 Height (Feet): 5 Height (Inches): 7.00 Weight (Pounds): 142 General Appearance: lethargic EENT: normal ENT inspection Neck: normal alignment Cardiovascular: normal peripheral pulses, normal rate, regular rhythm Respiratory/Chest: chest wall non-tender, lungs clear, normal breath sounds Abdomen: normal bowel sounds, non tender, soft Extremities: normal inspection Edema: no edema noted Arm (L), no edema noted Arm (R), no edema noted Leg (L), no edema noted Leg (R), no edema noted Pedal (L), no edema noted Pedal (R), no edema noted Generalized Neurologic: motor weakness Skin: normal pigmentation, warm/dry Sawyer Toussaint DO May 01, 2019 11:52
[2019-05-01 12:00] VITALS: BP 96/69
--- NOTE | 2019-05-01 12:03 | Pulmonology Progress Note ---
Assessment/Plan Assessment/Plan IMPRESSION: 1. Status post asystolic cardiac arrest. Again on 04/13/19 2. Respiratory failure, re-intubated; and now extubated 04/20/19 3. Altered mental status. Resolved 4. Hypernatremia. Corrected. 5. Hypokalemia . Corrected. 6. History of COPD. 7. Prostate CA. DISCUSSION: 1. Off BiPAP 2. Needs PEG 3. Doing well post extubation 5. Dc diuretics 6. Transfused CXR looking better; Needs PEG; would not advise PO diet again family refused PEG No longer on BiPAP has large left pleural effusion, family refuses thoracentesis. DC BiPAP DC to [facility] at family request Ganesh Mathews M.D. Subjective Interval Events: none new Constitutional: Reports: no symptoms HEENT: Repors: no symptoms Respiratory: Reports: no symptoms Cardiovascular: Reports: no symptoms Gastrointestinal/Abdominal: Reports: no symptoms Allergies: Coded Allergies: No Known Allergies (Unverified , 04/03/19) Objective Last 24 Hour Vital Signs Date Time Temp Pulse Resp B/P (MAP) Pulse Ox O2 Delivery O2 Flow Rate FiO2 05/01/19 10:51 108 20 98 Nasal Cannula 4.0 36 111 20 93 05/01/19 08:20 Nasal Cannula 2.0 Nasal Cannula 2.0 05/01/19 08:12 97.0 114 18 100/71 (81) 96 05/01/19 07:47 108 05/01/19 07:35 111 20 99 Nasal Cannula 4.0 36 114 20 93 05/01/19 07:26 93 Nasal Cannula 4.0 36 05/01/19 04:00 2.0 05/01/19 04:00 110 05/01/19 04:00 98.1 110 19 101/62 (75) 91 110 05/01/19 03:57 115 20 98 Nasal Cannula 4.0 36 05/01/19 03:42 113 22 92 Nasal Cannula 4.0 36 05/01/19 00:00 105 05/01/19 00:00 97.7 116 19 116/77 (90) 90 116 04/30/19 23:52 116 20 98 Nasal Cannula 4.0 36 04/30/19 23:37 114 20 93 Nasal Cannula 4.0 36 04/30/19 21:04 117 20 97 Nasal Cannula 4.0 36 04/30/19 21:00 Nasal Cannula 2.0 Nasal Cannula 2.0 04/30/19 20:49 116 20 93 Nasal Cannula 4.0 36 04/30/19 20:49 93 Nasal Cannula 4.0 36 04/30/19 20:00 97.3 117 18 119/78 (92) 90 117 04/30/19 20:00 2.0 04/30/19 20:00 120 04/30/19 16:00 97.8 114 18 113/76 (88) 94 114 04/30/19 16:00 119 04/30/19 16:00 2.0 04/30/19 15:24 118 18 98 Nasal Cannula 4.0 36 114 19 94 04/30/19 12:00 97.3 112 18 99/64 (76) 94 112 04/30/19 12:00 2.0 04/30/19 12:00 107 Intake and Output 04/30/19 05/01/19 19:00 07:00 Intake Total 800 ml Output Total 800 ml Balance 800 ml -800 ml Intake Oral 800 ml Output Urine Total 800 ml General Appearance: no acute distress HEENT: normocephalic Respiratory/Chest: chest wall non-tender, decreased breath sounds Cardiovascular: normal peripheral pulses Abdomen: normal bowel sounds Laboratory Tests 05/01/19 06:16: White Blood Count 5.2, Red Blood Count 3.14L, Hemoglobin 8.8L, Hematocrit 26.5L , Mean Corpuscular Volume 85, Mean Corpuscular Hemoglobin 28.0, Mean Corpuscular Hemoglobin Concent 33.1, Red Cell Distribution Width 14.8, Platelet Count 262, Mean Platelet Volume 4.5L, Neutrophils (%) (Auto) 61.4, Lymphocytes ( %) (Auto) 18.3L, Monocytes (%) (Auto) 10.6H, Eosinophils (%) (Auto) 8.6H, Basophils (%) (Auto) 1.1, Sodium Level 147H, Potassium Level 3.2L, Chloride Level 104, Carbon Dioxide Level 36H, Anion Gap 7, Blood Urea Nitrogen 30H, Creatinine 1.8H, Estimat Glomerular Filtration Rate 45.2, Glucose Level 106, Calcium Level 9.1 Current Medications Medications (Trade) Dose Ordered Sig/[place] Route PRN Reason Start Time Stop Time Status Last Admin Dose Admin Acetaminophen (Tylenol) 650 mg Q6H PRN ORAL Mild Pain/Temp > 100.5 04/29/19 06:37 05/24/19 06:36 Acetylcysteine (Mucomyst) 200 mg Q4HRT HHN 04/29/19 07:00 05/18/19 10:59 05/01/19 10:50 Albuterol/ Ipratropium (Albuterol/ Ipratropium) 3 ml Q4HRT N 04/29/19 07:00 05/03/19 22:59 05/01/19 10:50 Ascorbic Acid (Vitamin C) 250 mg DAILY ORAL 05/01/19 09:00 05/31/19 08:59 05/01/19 09:31 Dronabinol (Marinol) 2.5 mg TID ORAL 05/01/19 13:00 05/31/19 12:59 Enoxaparin Sodium (Lovenox) 40 mg DAILY SUBQ 04/29/19 09:00 05/25/19 08:59 05/01/19 09:34 Hydralazine HCl (Apresoline) 10 mg Q4H PRN IV SBP > 170mmHg 04/29/19 06:38 05/08/19 06:37 Lansoprazole (Prevacid) 30 mg DAILY ORAL 04/29/19 09:00 05/13/19 08:59 05/01/19 09:31 Memantine (Namenda) 5 mg BID ORAL 04/29/19 09:00 05/04/19 17:59 05/01/19 09:31 Multivitamins (Multivitamins) 1 tab DAILY ORAL 05/01/19 09:00 05/31/19 08:59 05/01/19 09:31 Potassium Chloride (K-Dur) 40 meq ONCE ORAL 05/01/19 11:00 05/01/19 13:00 05/01/19 11:08 Tamsulosin HCl (Flomax) 0.4 mg BEDTIME ORAL 04/29/19 21:00 05/13/19 20:59 04/30/19 21:23 Tramadol HCl (Ultram) 50 mg Q8H PRN NG Moderate Pain (Pain Scale 4-6) 04/29/19 06:36 05/04/19 06:35 04/29/19 20:11 Ganesh Mathews MD May 01, 2019 12:03
[2019-05-01] MEDS: Dronabinol 2.5mg Cap ORAL SCH ×2 (12:28→18:19)
--- NOTE | 2019-05-01 12:52 | NUR ---
NURSE NOTES:WOUND CARE FOLLOW-UP NOTES:Reabsorbing blood blister thoracic spine. No evidence of erythema or fluctuance surrounding blister.(L)1cm x (W)0.8cm. Resolving pressure injury sacrococcygeal area. Base of wound is pink and dry. Periwound without erythema or tenderness when palpated(L) 0.5cm x (W)0.6cm. Both heels are soft but easily blanchable. No new skin concerns noted.Wound Tx are effective and continued as ordered.Pt has an APM/PREETI mattress. All wound prevention protocols continued as care-planned.
--- NOTE | 2019-05-01 14:25 | NUR ---
SPEECH PATHOLOGY/SWALLOW STATUS/COGNITIVE SCREEN: ODETTE STATUS: PATIENT CLEARED FOR ST INTERVENTION BY BLANCA CHAMBERS. PATIENT RECEIVED SITTING UPRIGHT IN BED. HE WAS REFUSING HIS NOON MEAL BUT HE WAS WILLING TO PARTICIPATE IN A COGNITIVE SCREEN. ON THE SLUMS ([place] MENTAL SCALE) HE ACHIEVED A RAW SCORE OF 12 WHICH IS CONSISTENT WITH MOD/SEV COGNITIVE DECLINE. UNFORTUNATELY, THE PATIENT DEMONSTRATES MUSCLE WASTING/QUAKER WASTING AND HAS DEMONSTRATED VARIABLE P.O. INTAKE (INSUFFICIENT TO SUPPORT HIS NUTRITION HYDRATON NEEDS. HE IS TOLERATING HIS CURRENT DIET TEXTURES WITH NO OVERT S/S OF ASPIRATION. P.O. INTAKE CONTINUES TO BE VARIABLE HE DEMONSTRATES WORK OF BREATHING WITH MINIMAL PHYSICAL EXERTION. VOCAL VOLUME REMAINS LOW. RECOMMENDATION: CONTINUE CURRENT DIET CONTINUE DYSPHAGIA MANAGEMENT AND COGNITIVE RETRAINING TASKS.
--- NOTE | 2019-05-01 14:28 | Surgery Progress Note ---
Surgery Progress Note Subjective Procedure Performed right femoral central venous catheter insertion Symptoms: improved, tolerating diet, difficulty voiding, passing flatus, BM, pain decreased Objective Last 24 Hour Vital Signs Date Time Temp Pulse Resp B/P (MAP) Pulse Ox O2 Delivery O2 Flow Rate FiO2 05/01/19 14:20 110 20 99 Nasal Cannula 4.0 36 114 20 94 05/01/19 12:00 2.0 05/01/19 12:00 97.4 112 18 96/69 (78) 96 05/01/19 11:49 110 05/01/19 10:51 108 20 98 Nasal Cannula 4.0 36 111 20 93 05/01/19 08:20 Nasal Cannula 2.0 Nasal Cannula 2.0 05/01/19 08:12 97.0 114 18 100/71 (81) 96 05/01/19 07:47 108 05/01/19 07:35 111 20 99 Nasal Cannula 4.0 36 114 20 93 05/01/19 07:26 93 Nasal Cannula 4.0 36 05/01/19 04:00 2.0 05/01/19 04:00 110 05/01/19 04:00 98.1 110 19 101/62 (75) 91 110 05/01/19 03:57 115 20 98 Nasal Cannula 4.0 36 05/01/19 03:42 113 22 92 Nasal Cannula 4.0 36 05/01/19 00:00 105 05/01/19 00:00 97.7 116 19 116/77 (90) 90 116 04/30/19 23:52 116 20 98 Nasal Cannula 4.0 36 04/30/19 23:37 114 20 93 Nasal Cannula 4.0 36 04/30/19 21:04 117 20 97 Nasal Cannula 4.0 36 04/30/19 21:00 Nasal Cannula 2.0 Nasal Cannula 2.0 04/30/19 20:49 116 20 93 Nasal Cannula 4.0 36 04/30/19 20:49 93 Nasal Cannula 4.0 36 04/30/19 20:00 97.3 117 18 119/78 (92) 90 117 04/30/19 20:00 2.0 04/30/19 20:00 120 04/30/19 16:00 97.8 114 18 113/76 (88) 94 114 04/30/19 16:00 119 2/27/20 16:00 2.0 04/30/19 15:24 118 18 98 Nasal Cannula 4.0 36 114 19 94 I&O Intake and Output 04/30/19 05/01/19 19:00 07:00 Intake Total 800 ml Output Total 800 ml Balance 800 ml -800 ml Intake Oral 800 ml Output Urine Total 800 ml Dressing: dry Wound: clean Cardiovascular: RSR Respiratory: clear Abdomen: soft, flat, non-tender, present bowel sounds Extremities: no edema, no tenderness, no cyanosis Laboratory Tests Test 05/01/19 06:16 White Blood Count 5.2 K/UL (4.8-10.8) Red Blood Count 3.14 M/UL (4.70-6.10) L Hemoglobin 8.8 G/DL (14.2-18.0) L Hematocrit 26.5 % (42.0-52.0) L Mean Corpuscular Volume 85 FL (80-99) Mean Corpuscular Hemoglobin 28.0 PG (27.0-31.0) Mean Corpuscular Hemoglobin Concent 33.1 G/DL (32.0-36.0) Red Cell Distribution Width 14.8 % (11.6-14.8) Platelet Count 262 K/UL (150-450) Mean Platelet Volume 4.5 FL (6.5-10.1) L Neutrophils (%) (Auto) 61.4 % (45.0-75.0) Lymphocytes (%) (Auto) 18.3 % (20.0-45.0) L Monocytes (%) (Auto) 10.6 % (1.0-10.0) H Eosinophils (%) (Auto) 8.6 % (0.0-3.0) H Basophils (%) (Auto) 1.1 % (0.0-2.0) Sodium Level 147 MMOL/L (136-145) H Potassium Level 3.2 MMOL/L (3.5-5.1) L Chloride Level 104 MMOL/L (98-107) Carbon Dioxide Level 36 MMOL/L (21-32) H Anion Gap 7 mmol/L (5-15) Blood Urea Nitrogen 30 mg/dL (7-18) H Creatinine 1.8 MG/DL (0.55-1.30) H Estimat Glomerular Filtration Rate 45.2 mL/min (>60) Glucose Level 106 MG/DL (74-106) Calcium Level 9.1 MG/DL (8.5-10.1) Plan Problems: (1) Cardiac arrest Assessment & Plan: Acute deterioration Cardiovascular lopez ACLS required for resuscitation Still full code Hypotensive intensive care unit requiring a new central venous catheter see note Antibiotics as per infectious caries cont current treatment improving trend labs diet as tolerated improving on bipap may require intubation if so will recommend trach will follow with recs cont tube feeds lasix gtt family does not want thora repeat swallow may consider po intake for comfort measure does not want peg downgraded swallow noted improving thank you (2) Stage III adenocarcinoma of prostate Assessment & Plan: patient with state 3 prostate cancer pending treatment at [facility] unlikely related to acute cardiac arrest this am abd exam with mild distention no acute surgical intervention planned onc input improving extubated diet as tolerated improving d/c planning thank you will follow with recs DAILY ESTIMATED NEEDS: Needs based on Underweight, cancer, Pulmonary 54.7kg 30-35 kcals/kg 6630-4964 total kcals 1.25-2 g protein/kg 68-109 g total protein 25-30 mL/kg 1475-9165 total fluid mLs NUTRITION DIAGNOSIS: Underweight r/t cancer? as evidenced by pt w/ prostate cancer, elevated antigen and calcium levels, w/ generalized moderate wasting, previously poor po intake, pt is 81% of [place] body Weight, currently s/p code blue x2, re-intubated now extubated, NGT feeds held, on oral diet now w/ texture modifications. CURRENT DIET:Regular puree / NTL PO DIET RECOMMENDATIONS: Maintain Regular diet/ texture per EXECUTIVE DIRECTOR OF NURSING ADDITIONAL RECOMMENDATIONS: 1) Recalibrated bed wts for daily wts -> daily wts are inconsistent 2) Wound healing: add MVI + Vit C 250mg QD + Coleman BID 3) Monitor lytes, replete as needed 4) Rec D5% with current fair to poor po intake to prevent hypoglycemia 5) Continue Ensure Enlive TID . Jay Acevedo May 01, 2019 14:28
--- NOTE | 2019-05-01 14:36 | NUR ---
CASE MANAGEMENT: NOTE CLINICALS FAXED TO [facility]. AWAITING CALL BACK
[2019-05-01 16:00] VITALS: BP 96/70
--- NOTE | 2019-05-01 16:17 | NUR ---
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 T 98.1 HR 110 RR 19 B/P 101/62 SATS 98% ON 4L/NC LABS: Sodium Level 147H, Potassium Level 3.2L,Carbon Dioxide Level 36H, Anion Gap 7, Blood Urea Nitrogen 30H, Creatinine 1.8H, IS: FLOMAX PO QHS PREVACID PO QD KDUR PO X1 PLAN OF CARE: DC PLANNING
--- NOTE | 2019-05-01 16:45 | Progress Note ---
DATE: 05/01/2019 SUBJECTIVE: This is a 73-year-old male patient with generalized weakness and dehydration, but he is confused, disorganized, and mood labile. He has no logical plan for his own self-care. He has altered mental status and confusion. MENTAL STATUS EXAMINATION: This is a 73-year-old male. Appearance is disheveled. Attitude, irritable and agitated. Affect, guarded and restricted. Intellect, poor. Mood, depressed and anxious. Motor activity, psychomotor agitation. Attention span is poor. Orientation x2. Speech is low volume and slurred. Thought process, disorganized and illogical. Insight and judgment is poor. DIAGNOSIS: Major depressive disorder, severe, recurrent with psychotic features, rule out dementia with psychosis. PLAN: Treat this patient with Namenda 5 mg twice a day to prevent further decline in his cognition. 20 minutes of cognitive behavioral therapy to help him identify his automatic negative thoughts and help him convert those negative thoughts to more positive thoughts to reduce depression, anxiety, and mood lability. Chart reviewed. Discussed with staff. The patient is seen and assessed at bedside. Cherise Palma M.D. DR: ACE JOB#: [id number] CC:
--- NOTE | 2019-05-01 18:27 | NUR ---
DISCHARGE DISPOSITION: PLEASE READ PATIENT TO BE DISCHARGED TO [facility] [id number] [facility] RO[address] T: [phone]>> CALL FOR REPORT [facility] ON WILL CALL FOR VM LEFT DAUGHTER IN LAW REESE KEMP TRANSFER PACKET TO BE DELIVERED Addendum: 05/01/19 at 1832 by Yvonne Sierra CM NURSING TO OBTAIN DC ORDER
--- NOTE | 2019-05-01 18:39 | Cardiac Electrophysiology PN ---
Assessment/Plan Assessment/Plan 1. Status post 2 separate non infarctional juan antonio arrest with asystole. Both episodes happened in the setting of respiratory failure and off the Vent No evidence of ventricular tachycardia or ventricular fibrillation. Off any GARCÍA or AVN olivia EF 65%. All 3 troponins were less than 0.1. Watch for recurrence of bradycardia Family refusing any procedures 2. Recurrent Respiratory failure, extubated 04/08/19, reintubated 04/13/19 and reextubated 04/19/19 3. History of stage III prostate cancer, followed by Dr. Monroy and Dr Root. Morales was changed. Usually follows up at [facility] 4. S/P Shock. Off Levophed 5. Hypercalcemia due to prostate cancer. 6. Hypernatremia. 7. Anemia, s/p multiple PRBCs 8. Low K. Replace 9. Dysphagia, PEG by Dr. Lamb cancelled due to lack on consent Now on Puree diet but not getting enough calories 10. Pleural effusion, off Lasix drip. Family refused thoracentesis DW RN [facility] declined patient Subjective Subjective On tele. No juan antonio in sinus tach. [facility] declined him and family refusing thoracentesis or PEG until patient transferred but on Puree diet but poor intake Objective Last 24 Hour Vital Signs Date Time Temp Pulse Resp B/P (MAP) Pulse Ox O2 Delivery O2 Flow Rate FiO2 05/01/19 16:00 2.0 05/01/19 14:20 110 20 99 Nasal Cannula 4.0 36 114 20 94 05/01/19 12:00 2.0 05/01/19 12:00 97.4 112 18 96/69 (78) 96 05/01/19 11:49 110 05/01/19 10:51 108 20 98 Nasal Cannula 4.0 36 111 20 93 05/01/19 08:20 Nasal Cannula 2.0 Nasal Cannula 2.0 05/01/19 08:12 97.0 114 18 100/71 (81) 96 05/01/19 07:47 108 05/01/19 07:35 111 20 99 Nasal Cannula 4.0 36 114 20 93 05/01/19 07:26 93 Nasal Cannula 4.0 36 05/01/19 04:00 2.0 05/01/19 04:00 110 05/01/19 04:00 98.1 110 19 101/62 (75) 91 110 05/01/19 03:57 115 20 98 Nasal Cannula 4.0 36 05/01/19 03:42 113 22 92 Nasal Cannula 4.0 36 05/01/19 00:00 105 05/01/19 00:00 97.7 116 19 116/77 (90) 90 116 04/30/19 23:52 116 20 98 Nasal Cannula 4.0 36 04/30/19 23:37 114 20 93 Nasal Cannula 4.0 36 04/30/19 21:04 117 20 97 Nasal Cannula 4.0 36 04/30/19 21:00 Nasal Cannula 2.0 Nasal Cannula 2.0 04/30/19 20:49 116 20 93 Nasal Cannula 4.0 36 04/30/19 20:49 93 Nasal Cannula 4.0 36 04/30/19 20:00 97.3 117 18 119/78 (92) 90 117 04/30/19 20:00 2.0 04/30/19 20:00 120 Intake and Output 04/30/19 05/01/19 19:00 07:00 Intake Total 800 ml Output Total 800 ml Balance 800 ml -800 ml Intake Oral 800 ml Output Urine Total 800 ml Laboratory Tests Test 05/01/19 06:16 White Blood Count 5.2 K/UL (4.8-10.8) Red Blood Count 3.14 M/UL (4.70-6.10) L Hemoglobin 8.8 G/DL (14.2-18.0) L Hematocrit 26.5 % (42.0-52.0) L Mean Corpuscular Volume 85 FL (80-99) Mean Corpuscular Hemoglobin 28.0 PG (27.0-31.0) Mean Corpuscular Hemoglobin Concent 33.1 G/DL (32.0-36.0) Red Cell Distribution Width 14.8 % (11.6-14.8) Platelet Count 262 K/UL (150-450) Mean Platelet Volume 4.5 FL (6.5-10.1) L Neutrophils (%) (Auto) 61.4 % (45.0-75.0) Lymphocytes (%) (Auto) 18.3 % (20.0-45.0) L Monocytes (%) (Auto) 10.6 % (1.0-10.0) H Eosinophils (%) (Auto) 8.6 % (0.0-3.0) H Basophils (%) (Auto) 1.1 % (0.0-2.0) Sodium Level 147 MMOL/L (136-145) H Potassium Level 3.2 MMOL/L (3.5-5.1) L Chloride Level 104 MMOL/L (98-107) Carbon Dioxide Level 36 MMOL/L (21-32) H Anion Gap 7 mmol/L (5-15) Blood Urea Nitrogen 30 mg/dL (7-18) H Creatinine 1.8 MG/DL (0.55-1.30) H Estimat Glomerular Filtration Rate 45.2 mL/min (>60) Glucose Level 106 MG/DL (74-106) Calcium Level 9.1 MG/DL (8.5-10.1) Objective HEENT: No JVD. LUNGS: Coarse rhonchi. CARDIOVASCULAR: Regular S1 and S2 ABDOMEN: Soft and nondistended. EXTREMITIES: No pitting edema. Nain Cortez MD May 01, 2019 18:39
--- NOTE | 2019-05-01 18:51 | NUR ---
DISCHARGE PLANNING UPDATE CM SPOKE TO REESE AND TO ANDRA KEMP REGARDING DC PLAN. JET [facility]. SHE WOULD LIKE THIS PATIENT TO BE DISCHARGED TO HOME W/ HH THREE CHOICES PROVIDED [facility] LONG WAS MADE AWARE.
--- NOTE | 2019-05-01 19:58 | NUR ---
NURSE NOTES: Received report from Dina Michaels RN. Pt in stable condition
[2019-05-01 20:00] VITALS: BP 95/63
--- NOTE | 2019-05-01 20:26 | NUR ---
HAND-OFF: Report given to BLANCA Morgan. Pt in stable condition, endorsed plan of care.
[2019-05-01] MEDS: Tamsulosin 0.4mg cap ORAL SCH (21:00)
[2019-05-02] VITALS: BP 100/66
[2019-05-02] MEDS: Acetylcysteine 20% Soln 4ml HHN SCH ×6 (03:16→23:23)
[2019-05-02] MEDS: Albuterol/Ipratropium 3ml neb HHN SCH ×6 (03:16→23:23)
[2019-05-02 04:00] VITALS: BP 122/62
--- NOTE | 2019-05-02 07:53 | NUR ---
NURSE NOTES: Received report from BLANCA Morgan. Observed pt receiving breathing treatment. Pt A/Ox3, denies any pain, no s/sx of acute distress. Bed on lowest position, call light within reach. Will continue plan of care.
[2019-05-02 07:57] LABS: EOSINOPHILS % (AUTO) 9.9 % (0.0-3.0); HEMATOCRIT 29.2 % (42.0-52.0); HEMOGLOBIN 9.5 G/DL (14.2-18.0); LYMPHOCYTES % (AUTO) 20.5 % (20.0-45.0); MEAN CORPUSCULAR VOLUME 86 FL (80-99); MONOCYTES % (AUTO) 7.3 % (1.0-10.0); NEUTROPHILS % (AUTO) 61.4 % (45.0-75.0); PLATELET COUNT 268 K/UL (150-450); RED CELL DISTRIBUTION WIDTH 14.7 % (11.6-14.8); WHITE BLOOD COUNT 5.5 K/UL (4.8-10.8)
[2019-05-02 08:00] VITALS: BP 105/70
--- NOTE | 2019-05-02 08:01 | NUR ---
HAND-OFF: Report given to Dina Michaels RN. Pt in stable condition.
--- NOTE | 2019-05-02 08:06 | Hematology/Onc Progress Note ---
Assessment/Plan Assessment/Plan # Prostate cancer stage IV with psa >700, cr is worse, hydronephrosis noted, seen by renal, Dr. White. --> i did received records from [facility]. has regional lymphadenopathy, s/p transrectal biopsy with Gleasons 5+5 (2010) in all cores, apparently has had a 3 year course of androgen deprivation from 2011- 2014.also status post RADIATION to the prostate, then lost to followup. Following surviellance psa 0.45-->65, in 10/2016, and up to 127 in 12/2016, Ct scan showed recurrence of disease with lad but no bony mets, started on lupron 01/2017, psa fell yo 73-->46, has been sarted on zytiga + prednisone, and now psa progression on zytiga, he started xtandi in 01/2019 Psa 87. He did not go through urethral stenting, he has deferred treatment with chemo. --> He is a very poor historian, I have talked to the sister --> imaging has been noted --> as per urology recs, reviewed --> poor prognosis given above history of treatment, defer transfer to [facility] --> psa 737-->757 --> CT ABD 04/10: Evidence of advanced metastatic neoplasm likely secondary to prostate carcinoma. Extensive retroperitoneal and pelvic lymphadenopathy complicated by presence of bilateral hydroureteronephrosis. Extensive metastatic disease involving the bones also noted. Status post seed implant radiation therapy to the prostate gland. --> family wants to transfer to [facility] # Hypercalcemia -- now acutely worse --> trend Ca++ 8.1-->13-->12-->10.3-->10.7-->13.2 -->11-->10.5 --> ivf has been started --> as per nephrology --> calcitonin was given # Anemia due to underlying malignancy --> hgb trend as needed 9.2-->7-->10.9-->11-->9.7-->8.1-->8.6-->9.2-->9.5 --> no hemolysis is noted --> no bleeding --> blood tx: 04/18, # Episode of generalized weakness --> on ivf --> pt as needed # Pleural effusion --> no consent for peg --> family refusing peg and thoracentesis # Hypokalemia --> replete prn # Dehydration --> on ivf # Atrophic changes without evident intracranial hemorrhage. --> as per neuro, remains confused # Respiratory failure s/p vent now ext --> on bipap++ # Hypernatremia as well as low BUN --> on ivf # Poor prognosis # Dvt ppx lovenox sq # DC planning [facility] or facility Appreciate consultation and dW Rn Subjective Allergies: Coded Allergies: No Known Allergies (Unverified , 04/03/19) Subjective 04/06: no events, apparently intubated today and transferred to the icu, will dw family 04/07: remains in the icu, critically ill, Ca++ 12, on vent, minimally responsive , on dopa, dw pcp and pulm 04/08: no major changes, no night sweats, labs have been reviewed, dw daughter, he is more alert 04/10: awake, no acute events ct abd reviewed, stool ob negative 04/12: labs reviewed, nc, tachy, ceftriaxone, no sob 04/13: lethargic, nc 3l, no acute distress, labs reviewed 04/14: Ca++ remains elev 13.2, De Amy aware, on calcitonin, on lovenox 04/15: no major changes, remains intubated, seen by cards, renal, pulm, dw Kellie, kcl ordered 04/16: tolerating meds well, no bleeding, on vent, is on simv mode, nicholas Pacheco Rn 04/17: icu, vent, h/h stable, no acute events, on cefepime 04/19: remains in icu and intubated, s/p blood, hgb 8.6, c diff negative 04/20: on bipap, hgb 8.6, no major changes, in icu, requires peg 04/21: urine is red tinged this am, of vent, with nc, no bleeding, labs noted 04/22: no major changes, no bleeding r chils, no consent for procedures 04/23: icu, failed to wean from bipap, h/h stable 04/24: no events, feeling better, nicholas uro, with guerra, labs noted, no bleeding 04/26: no bleeding, no f/c, no major changes, anemia panel noted 04/27: no major events, no bleeding, no fc, labs reviewed 04/28: in sdu, no longer on bipap, family refusing peg and thoracentesis 04/29: no major changes, labs reviewed, bipap overnight, then 2lnc during day 04/30: on tele, in st, low 100's, no sob, h/h stable 05/01: awake, bilat restraints, no acute distress, nc Objective Objective Current Medications Medications (Trade) Dose Ordered Sig/La Nena Route PRN Reason Start Time Stop Time Status Last Admin Dose Admin Acetaminophen (Tylenol) 650 mg Q6H PRN ORAL Mild Pain/Temp > 100.5 04/29/19 06:37 05/24/19 06:36 Acetylcysteine (Mucomyst) 200 mg Q4HRT N 04/29/19 07:00 05/18/19 10:59 05/02/19 07:34 Albuterol/ Ipratropium (Albuterol/ Ipratropium) 3 ml Q4HRT N 04/29/19 07:00 05/03/19 22:59 05/02/19 07:34 Ascorbic Acid (Vitamin C) 250 mg DAILY ORAL 05/01/19 09:00 05/31/19 08:59 05/01/19 09:31 Dronabinol (Marinol) 2.5 mg TID ORAL 05/01/19 13:00 05/31/19 12:59 05/01/19 18:19 Enoxaparin Sodium (Lovenox) 40 mg DAILY SUBQ 04/29/19 09:00 05/25/19 08:59 05/01/19 09:34 Hydralazine HCl (Apresoline) 10 mg Q4H PRN IV SBP > 170mmHg 04/29/19 06:38 05/08/19 06:37 Lansoprazole (Prevacid) 30 mg DAILY ORAL 04/29/19 09:00 05/13/19 08:59 05/01/19 09:31 Memantine (Namenda) 5 mg BID ORAL 04/29/19 09:00 05/04/19 17:59 05/01/19 18:19 Multivitamins (Multivitamins) 1 tab DAILY ORAL 05/01/19 09:00 05/31/19 08:59 05/01/19 09:31 Tamsulosin HCl (Flomax) 0.4 mg BEDTIME ORAL 04/29/19 21:00 05/13/19 20:59 04/30/19 21:23 Tramadol HCl (Ultram) 50 mg Q8H PRN NG Moderate Pain (Pain Scale 4-6) 04/29/19 06:36 05/04/19 06:35 04/29/19 20:11 Last 24 Hour Vital Signs Date Time Temp Pulse Resp B/P (MAP) Pulse Ox O2 Delivery O2 Flow Rate FiO2 05/02/19 07:35 93 Nasal Cannula 4.0 36 05/02/19 07:35 116 20 97 Nasal Cannula 4.0 36 118 22 93 05/02/19 04:00 97.2 121 18 122/62 (82) 98 05/02/19 04:00 119 05/02/19 04:00 2.0 05/02/19 03:16 113 22 98 Nasal Cannula 4.0 36 122 24 90 05/02/19 00:00 119 05/02/19 00:00 2.0 05/02/19 00:00 97.2 110 17 100/66 (77) 98 05/01/19 22:56 108 24 99 Nasal Cannula 4.0 36 120 25 92 05/01/19 20:00 118 05/01/19 20:00 2.0 05/01/19 20:00 97.3 117 16 95/63 (74) 98 05/01/19 19:24 92 Nasal Cannula 4.0 36 05/01/19 19:21 111 21 99 Nasal Cannula 4.0 36 119 23 92 05/01/19 16:00 2.0 05/01/19 16:00 97.4 118 18 96/70 (79) 93 05/01/19 15:29 119 05/01/19 14:20 110 20 99 Nasal Cannula 4.0 36 114 20 94 05/01/19 12:00 2.0 05/01/19 12:00 97.4 112 18 96/69 (78) 96 05/01/19 11:49 110 05/01/19 10:51 108 20 98 Nasal Cannula 4.0 36 111 20 93 05/01/19 08:20 Nasal Cannula 2.0 Nasal Cannula 2.0 05/01/19 08:12 97.0 114 18 100/71 (81) 96 05/01/19 07:47 108 05/01/19 07:35 111 20 99 Nasal Cannula 4.0 36 114 20 93 05/01/19 07:26 93 Nasal Cannula 4.0 36 05/01/19 04:00 2.0 05/01/19 04:00 110 05/01/19 04:00 98.1 110 19 101/62 (75) 91 110 05/01/19 03:57 115 20 98 Nasal Cannula 4.0 36 05/01/19 03:42 113 22 92 Nasal Cannula 4.0 36 05/01/19 00:00 105 05/01/19 00:00 97.7 116 19 116/77 (90) 90 116 04/30/19 23:52 116 20 98 Nasal Cannula 4.0 36 04/30/19 23:37 114 20 93 Nasal Cannula 4.0 36 04/30/19 21:04 117 20 97 Nasal Cannula 4.0 36 04/30/19 21:00 Nasal Cannula 2.0 Nasal Cannula 2.0 04/30/19 20:49 116 20 93 Nasal Cannula 4.0 36 04/30/19 20:49 93 Nasal Cannula 4.0 36 04/30/19 20:00 97.3 117 18 119/78 (92) 90 117 04/30/19 20:00 2.0 04/30/19 20:00 120 04/30/19 16:00 97.8 114 18 113/76 (88) 94 114 04/30/19 16:00 119 04/30/19 16:00 2.0 04/30/19 15:24 118 18 98 Nasal Cannula 4.0 36 114 19 94 04/30/19 12:00 97.3 112 18 99/64 (76) 94 112 04/30/19 12:00 2.0 04/30/19 12:00 107 04/30/19 11:39 113 18 95 Nasal Cannula 4.0 36 110 16 90 04/30/19 09:00 Nasal Cannula 2.0 Nasal Cannula 2.0 04/30/19 08:19 115 18 98 Nasal Cannula 4.0 36 112 17 93 Intake and Output 05/01/19 05/02/19 19:00 07:00 Intake Total 480 ml Output Total 400 ml Balance 80 ml Intake Oral 480 ml Output Urine Total 400 ml # Voids 2 Labs Test 04/30/19 05:05 05/01/19 06:16 05/02/19 06:25 White Blood Count 5.3 K/UL (4.8-10.8) 5.2 K/UL (4.8-10.8) 5.5 K/UL (4.8-10.8) Red Blood Count 3.42 M/UL (4.70-6.10) 3.14 M/UL (4.70-6.10) 3.40 M/UL (4.70-6.10) Hemoglobin 9.5 G/DL (14.2-18.0) 8.8 G/DL (14.2-18.0) 9.5 G/DL (14.2-18.0) Hematocrit 28.8 % (42.0-52.0) 26.5 % (42.0-52.0) 29.2 % (42.0-52.0) Mean Corpuscular Volume 84 FL (80-99) 85 FL (80-99) 86 FL (80-99) Mean Corpuscular Hemoglobin 27.8 PG (27.0-31.0) 28.0 PG (27.0-31.0) 28.1 PG (27.0-31.0) Mean Corpuscular Hemoglobin Concent 33.0 G/DL (32.0-36.0) 33.1 G/DL (32.0-36.0) 32.7 G/DL (32.0-36.0) Red Cell Distribution Width 14.8 % (11.6-14.8) 14.8 % (11.6-14.8) 14.7 % (11.6-14.8) Platelet Count 289 K/UL (150-450) 262 K/UL (150-450) 268 K/UL (150-450) Mean Platelet Volume 4.6 FL (6.5-10.1) 4.5 FL (6.5-10.1) 4.3 FL (6.5-10.1) Neutrophils (%) (Auto) 61.9 % (45.0-75.0) 61.4 % (45.0-75.0) 61.4 % (45.0-75.0) Lymphocytes (%) (Auto) 20.0 % (20.0-45.0) 18.3 % (20.0-45.0) 20.5 % (20.0-45.0) Monocytes (%) (Auto) 7.6 % (1.0-10.0) 10.6 % (1.0-10.0) 7.3 % (1.0-10.0) Eosinophils (%) (Auto) 9.7 % (0.0-3.0) 8.6 % (0.0-3.0) 9.9 % (0.0-3.0) Basophils (%) (Auto) 0.8 % (0.0-2.0) 1.1 % (0.0-2.0) 1.0 % (0.0-2.0) Sodium Level 144 MMOL/L (136-145) 147 MMOL/L (136-145) Potassium Level 3.5 MMOL/L (3.5-5.1) 3.2 MMOL/L (3.5-5.1) Chloride Level 100 MMOL/L (98-107) 104 MMOL/L (98-107) Carbon Dioxide Level 33 MMOL/L (21-32) 36 MMOL/L (21-32) Anion Gap 11 mmol/L (5-15) 7 mmol/L (5-15) Blood Urea Nitrogen 27 mg/dL (7-18) 30 mg/dL (7-18) Creatinine 1.8 MG/DL (0.55-1.30) 1.8 MG/DL (0.55-1.30) Estimat Glomerular Filtration Rate 45.2 mL/min (>60) 45.2 mL/min (>60) Glucose Level 95 MG/DL (74-106) 106 MG/DL (74-106) Calcium Level 8.8 MG/DL (8.5-10.1) 9.1 MG/DL (8.5-10.1) Height (Feet): 5 Height (Inches): 7.00 Weight (Pounds): 142 Objective General: normal inspection, alert, Chronically Ill Respiratory: dry breath sounds b/l, nc+ Cardiovascular: regular rate, rhythm, no edema Gastrointestinal: normal inspection, normal bowel sounds Genitourinary: no CVA tenderness Mus: normal inspection, back normal, normal range of motion Neurologic: alert, motor strength/tone normal, oriented + confused Psychiatric: normal inspection, judgement/insight normal Skin: no rash Andreas Monroy MD May 02, 2019 08:06
[2019-05-02 08:31] LABS: ANION GAP 3 mmol/L (5-15); BLOOD UREA NITROGEN 28 mg/dL (7-18); CALCIUM 9.5 MG/DL (8.5-10.1); CARBON DIOXIDE 39 MMOL/L (21-32); CHLORIDE 106 MMOL/L (98-107); POTASSIUM 3.8 MMOL/L (3.5-5.1); SODIUM 148 MMOL/L (136-145)
--- NOTE | 2019-05-02 09:22 | Urology Progress Note ---
Assessment/Plan Status: stable, progressing Assessment/Plan: 1. 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 2. Urinary retention. 3. Acute kidney injury, labile. 4. Hydronephrosis, likely chronic. 5. Proteinuria. 6. UTI and colonization. 7. Hematuria. monitor clinically maintain guerra, last replaced 2/ hand irrigated and do PRN position is satisfactory monitor renal fxn, labile likely obst of bilateral distal ureters secondary to advanced prostate ca will need to see how aggressive pt and family want to be renal fxn improved with the new guerra consider ureteral stents or nephrostomies? flomax added abx as ordered may need to hold lovenox voiding trial at some point? d/w nursing staff family members want to take pt to [facility] Subjective Allergies: Coded Allergies: No Known Allergies (Unverified , 04/03/19) Subjective all noted Objective Last 24 Hour Vital Signs Date Time Temp Pulse Resp B/P (MAP) Pulse Ox O2 Delivery O2 Flow Rate FiO2 05/02/19 08:20 Nasal Cannula 2.0 Nasal Cannula 2.0 05/02/19 08:00 98.0 115 22 105/70 (82) 98 05/02/19 07:35 93 Nasal Cannula 4.0 36 05/02/19 07:35 116 20 97 Nasal Cannula 4.0 36 118 22 93 05/02/19 04:00 97.2 121 18 122/62 (82) 98 05/02/19 04:00 119 05/02/19 04:00 2.0 05/02/19 03:16 113 22 98 Nasal Cannula 4.0 36 122 24 90 05/02/19 00:00 119 05/02/19 00:00 2.0 05/02/19 00:00 97.2 110 17 100/66 (77) 98 05/01/19 22:56 108 24 99 Nasal Cannula 4.0 36 120 25 92 05/01/19 20:00 118 05/01/19 20:00 2.0 05/01/19 20:00 97.3 117 16 95/63 (74) 98 05/01/19 19:24 92 Nasal Cannula 4.0 36 05/01/19 19:21 111 21 99 Nasal Cannula 4.0 36 119 23 92 05/01/19 16:00 2.0 05/01/19 16:00 97.4 118 18 96/70 (79) 93 05/01/19 15:29 119 05/01/19 14:20 110 20 99 Nasal Cannula 4.0 36 114 20 94 05/01/19 12:00 2.0 05/01/19 12:00 97.4 112 18 96/69 (78) 96 05/01/19 11:49 110 05/01/19 10:51 108 20 98 Nasal Cannula 4.0 36 111 20 93 Intake and Output 05/01/19 05/02/19 19:00 07:00 Intake Total 480 ml Output Total 400 ml Balance 80 ml Intake Oral 480 ml Output Urine Total 400 ml # Voids 2 Microbiology Date/Time Source Procedure Growth Status 04/14/19 12:45 Blood Blood Culture - Final NO GROWTH AFTER 5 DAYS Complete 04/15/19 21:40 Sputum Gram Stain - Final Complete 04/15/19 21:40 Sputum Sputum Culture - Final NORMAL UPPER RESPIRATORY DAVID PRESENT Complete 04/18/19 17:00 Stool Clostridium difficile Toxin Assay - Final Complete 04/14/19 11:25 Urine,Random Urine Culture - Final NO GROWTH AFTER 48 HOURS Complete Current Medications Medications (Trade) Dose Ordered Sig/La Nena Route PRN Reason Start Time Stop Time Status Last Admin Dose Admin Acetaminophen (Tylenol) 650 mg Q6H PRN ORAL Mild Pain/Temp > 100.5 04/29/19 06:37 05/24/19 06:36 Acetylcysteine (Mucomyst) 200 mg Q4HRT [facility] 04/29/19 07:00 05/18/19 10:59 05/02/19 07:34 Albuterol/ Ipratropium (Albuterol/ Ipratropium) 3 ml Q4HRT [facility] 04/29/19 07:00 05/03/19 22:59 05/02/19 07:34 Ascorbic Acid (Vitamin C) 250 mg DAILY ORAL 05/01/19 09:00 05/31/19 08:59 05/01/19 09:31 Dronabinol (Marinol) 2.5 mg TID ORAL 05/01/19 13:00 05/31/19 12:59 05/01/19 18:19 Enoxaparin Sodium (Lovenox) 40 mg DAILY SUBQ 04/29/19 09:00 05/25/19 08:59 05/01/19 09:34 Hydralazine HCl (Apresoline) 10 mg Q4H PRN IV SBP > 170mmHg 04/29/19 06:38 05/08/19 06:37 Lansoprazole (Prevacid) 30 mg DAILY ORAL 04/29/19 09:00 05/13/19 08:59 05/01/19 09:31 Memantine (Namenda) 5 mg BID ORAL 04/29/19 09:00 05/04/19 17:59 05/01/19 18:19 Multivitamins (Multivitamins) 1 tab DAILY ORAL 05/01/19 09:00 05/31/19 08:59 05/01/19 09:31 Tamsulosin HCl (Flomax) 0.4 mg BEDTIME ORAL 04/29/19 21:00 05/13/19 20:59 04/30/19 21:23 Tramadol HCl (Ultram) 50 mg Q8H PRN NG Moderate Pain (Pain Scale 4-6) 04/29/19 06:36 05/04/19 06:35 04/29/19 20:11 Laboratory Tests 05/02/19 06:25: White Blood Count 5.5, Red Blood Count 3.40L, Hemoglobin 9.5L, Hematocrit 29.2L , Mean Corpuscular Volume 86, Mean Corpuscular Hemoglobin 28.1, Mean Corpuscular Hemoglobin Concent 32.7, Red Cell Distribution Width 14.7, Platelet Count 268, Mean Platelet Volume 4.3L, Neutrophils (%) (Auto) 61.4, Lymphocytes ( %) (Auto) 20.5, Monocytes (%) (Auto) 7.3, Eosinophils (%) (Auto) 9.9H, Basophils (%) (Auto) 1.0, Sodium Level 148H, Potassium Level 3.8, Chloride Level 106, Carbon Dioxide Level 39H, Anion Gap 3L, Blood Urea Nitrogen 28H, Creatinine 2.0H, Estimat Glomerular Filtration Rate 40.0, Glucose Level 93, Calcium Level 9.5 Height (Feet): 5 Height (Inches): 7.00 Weight (Pounds): 142 Objective exam stable guerra indwelling, yellow/allegra urine CT A/P (04/10) noted Raz Root MD May 02, 2019 09:22
[2019-05-02] MEDS: Memantine 5 MG TAB ORAL SCH ×2 (09:23→17:34)
[2019-05-02] MEDS: Dronabinol 2.5mg Cap ORAL SCH ×3 (09:23→17:34)
[2019-05-02] MEDS: Ascorbic Acid 500mg tab ORAL SCH (09:23)
[2019-05-02] MEDS: Enoxaparin 40mg Inj SUBQ SCH (09:24)
--- NOTE | 2019-05-02 09:47 | General Progress Note ---
Assessment/Plan Problem List: (1) UTI (urinary tract infection) ICD Codes: N39.0 - Urinary tract infection, site not specified SNOMED: 56568172 (2) Weak ICD Codes: R53.1 - Weakness SNOMED: 28291236 (3) Anemia ICD Codes: D64.9 - Anemia, unspecified SNOMED: 861562963 (4) Dehydration ICD Codes: E86.0 - Dehydration SNOMED: 06856943, 20338606 (5) Episode of generalized weakness ICD Codes: R53.1 - Weakness SNOMED: 51073995 (6) Stage III adenocarcinoma of prostate ICD Codes: C61 - Malignant neoplasm of prostate SNOMED: 619674330, 29885911 Status: stable, progressing Assessment/Plan: o2 pulm tx pt diet abx iv fluid heme gi eval cbc bmp am dc w hh if clear Subjective Constitutional: Reports: weakness Allergies: Coded Allergies: No Known Allergies (Unverified , 04/03/19) All Systems: reviewed and negative except above Subjective o2nc calm Objective Last 24 Hour Vital Signs Date Time Temp Pulse Resp B/P (MAP) Pulse Ox O2 Delivery O2 Flow Rate FiO2 05/02/19 08:20 Nasal Cannula 2.0 Nasal Cannula 2.0 05/02/19 08:00 98.0 115 22 105/70 (82) 98 05/02/19 07:35 93 Nasal Cannula 4.0 36 05/02/19 07:35 116 20 97 Nasal Cannula 4.0 36 118 22 93 05/02/19 04:00 97.2 121 18 122/62 (82) 98 05/02/19 04:00 119 05/02/19 04:00 2.0 05/02/19 03:16 113 22 98 Nasal Cannula 4.0 36 122 24 90 05/02/19 00:00 119 05/02/19 00:00 2.0 05/02/19 00:00 97.2 110 17 100/66 (77) 98 05/01/19 22:56 108 24 99 Nasal Cannula 4.0 36 120 25 92 05/01/19 20:00 118 05/01/19 20:00 2.0 05/01/19 20:00 97.3 117 16 95/63 (74) 98 05/01/19 19:24 92 Nasal Cannula 4.0 36 2/28/20 19:21 111 21 99 Nasal Cannula 4.0 36 119 23 92 05/01/19 16:00 2.0 05/01/19 16:00 97.4 118 18 96/70 (79) 93 05/01/19 15:29 119 05/01/19 14:20 110 20 99 Nasal Cannula 4.0 36 114 20 94 05/01/19 12:00 2.0 05/01/19 12:00 97.4 112 18 96/69 (78) 96 05/01/19 11:49 110 05/01/19 10:51 108 20 98 Nasal Cannula 4.0 36 111 20 93 Intake and Output 05/01/19 05/02/19 19:00 07:00 Intake Total 480 ml Output Total 400 ml Balance 80 ml Intake Oral 480 ml Output Urine Total 400 ml # Voids 2 Laboratory Tests 05/02/19 06:25: White Blood Count 5.5, Red Blood Count 3.40L, Hemoglobin 9.5L, Hematocrit 29.2L , Mean Corpuscular Volume 86, Mean Corpuscular Hemoglobin 28.1, Mean Corpuscular Hemoglobin Concent 32.7, Red Cell Distribution Width 14.7, Platelet Count 268, Mean Platelet Volume 4.3L, Neutrophils (%) (Auto) 61.4, Lymphocytes ( %) (Auto) 20.5, Monocytes (%) (Auto) 7.3, Eosinophils (%) (Auto) 9.9H, Basophils (%) (Auto) 1.0, Sodium Level 148H, Potassium Level 3.8, Chloride Level 106, Carbon Dioxide Level 39H, Anion Gap 3L, Blood Urea Nitrogen 28H, Creatinine 2.0H, Estimat Glomerular Filtration Rate 40.0, Glucose Level 93, Calcium Level 9.5 Height (Feet): 5 Height (Inches): 7.00 Weight (Pounds): 142 General Appearance: lethargic EENT: normal ENT inspection Neck: normal alignment Cardiovascular: normal peripheral pulses, normal rate, regular rhythm Respiratory/Chest: chest wall non-tender, lungs clear, normal breath sounds Abdomen: normal bowel sounds, non tender, soft Extremities: normal inspection Edema: no edema noted Arm (L), no edema noted Arm (R), no edema noted Leg (L), no edema noted Leg (R), no edema noted Pedal (L), no edema noted Pedal (R), no edema noted Generalized Neurologic: motor weakness Skin: normal pigmentation, warm/dry Sawyer Toussaint DO May 02, 2019 09:47
--- NOTE | 2019-05-02 11:28 | Pulmonology Progress Note ---
Assessment/Plan Assessment/Plan IMPRESSION: 1. Status post asystolic cardiac arrest. Again on 04/13/19 2. Respiratory failure, re-intubated; and now extubated 04/20/19 3. Altered mental status. Resolved 4. Hypernatremia. Corrected. 5. Hypokalemia . Corrected. 6. History of COPD. 7. Prostate CA. DISCUSSION: 1. Off BiPAP 2. Needs PEG 3. Doing well post extubation 5. Dc diuretics 6. Transfused CXR looking better; Needs PEG; would not advise PO diet again family refused PEG No longer on BiPAP has large left pleural effusion, family refuses thoracentesis. DC BiPAP DC to [facility] at family request Alternately, dc home with HH Ganesh Mathews M.D. Subjective Interval Events: None new Constitutional: Reports: no symptoms HEENT: Repors: no symptoms Respiratory: Reports: no symptoms Cardiovascular: Reports: no symptoms Gastrointestinal/Abdominal: Reports: no symptoms Allergies: Coded Allergies: No Known Allergies (Unverified , 04/03/19) Objective Last 24 Hour Vital Signs Date Time Temp Pulse Resp B/P (MAP) Pulse Ox O2 Delivery O2 Flow Rate FiO2 05/02/19 10:29 118 18 98 Nasal Cannula 4.0 36 112 20 94 05/02/19 08:20 Nasal Cannula 2.0 Nasal Cannula 2.0 05/02/19 08:00 110 05/02/19 08:00 98.0 115 22 105/70 (82) 98 05/02/19 08:00 2.0 05/02/19 07:35 93 Nasal Cannula 4.0 36 05/02/19 07:35 116 20 97 Nasal Cannula 4.0 36 118 22 93 05/02/19 04:00 97.2 121 18 122/62 (82) 98 05/02/19 04:00 119 05/02/19 04:00 2.0 05/02/19 03:16 113 22 98 Nasal Cannula 4.0 36 122 24 90 05/02/19 00:00 119 05/02/19 00:00 2.0 05/02/19 00:00 97.2 110 17 100/66 (77) 98 05/01/19 22:56 108 24 99 Nasal Cannula 4.0 36 120 25 92 05/01/19 20:00 118 05/01/19 20:00 2.0 05/01/19 20:00 97.3 117 16 95/63 (74) 98 05/01/19 19:24 92 Nasal Cannula 4.0 36 05/01/19 19:21 111 21 99 Nasal Cannula 4.0 36 119 23 92 05/01/19 16:00 2.0 05/01/19 16:00 97.4 118 18 96/70 (79) 93 05/01/19 15:29 119 05/01/19 14:20 110 20 99 Nasal Cannula 4.0 36 114 20 94 05/01/19 12:00 2.0 05/01/19 12:00 97.4 112 18 96/69 (78) 96 05/01/19 11:49 110 Intake and Output 05/01/19 05/02/19 19:00 07:00 Intake Total 480 ml Output Total 400 ml Balance 80 ml Intake Oral 480 ml Output Urine Total 400 ml # Voids 2 General Appearance: no acute distress HEENT: normocephalic Respiratory/Chest: chest wall non-tender, lungs clear Cardiovascular: normal peripheral pulses Laboratory Tests 05/02/19 06:25: White Blood Count 5.5, Red Blood Count 3.40L, Hemoglobin 9.5L, Hematocrit 29.2L , Mean Corpuscular Volume 86, Mean Corpuscular Hemoglobin 28.1, Mean Corpuscular Hemoglobin Concent 32.7, Red Cell Distribution Width 14.7, Platelet Count 268, Mean Platelet Volume 4.3L, Neutrophils (%) (Auto) 61.4, Lymphocytes ( %) (Auto) 20.5, Monocytes (%) (Auto) 7.3, Eosinophils (%) (Auto) 9.9H, Basophils (%) (Auto) 1.0, Sodium Level 148H, Potassium Level 3.8, Chloride Level 106, Carbon Dioxide Level 39H, Anion Gap 3L, Blood Urea Nitrogen 28H, Creatinine 2.0H, Estimat Glomerular Filtration Rate 40.0, Glucose Level 93, Calcium Level 9.5 Current Medications Medications (Trade) Dose Ordered Sig/La Nena Route PRN Reason Start Time Stop Time Status Last Admin Dose Admin Acetaminophen (Tylenol) 650 mg Q6H PRN ORAL Mild Pain/Temp > 100.5 04/29/19 06:37 05/24/19 06:36 Acetylcysteine (Mucomyst) 200 mg Q4HRT N 04/29/19 07:00 05/18/19 10:59 05/02/19 10:29 Albuterol/ Ipratropium (Albuterol/ Ipratropium) 3 ml Q4HRT [facility] 04/29/19 07:00 05/03/19 22:59 05/02/19 10:29 Ascorbic Acid (Vitamin C) 250 mg DAILY ORAL 05/01/19 09:00 05/31/19 08:59 05/02/19 09:23 Dronabinol (Marinol) 2.5 mg TID ORAL 05/01/19 13:00 05/31/19 12:59 05/02/19 09:23 Enoxaparin Sodium (Lovenox) 40 mg DAILY SUBQ 04/29/19 09:00 05/25/19 08:59 05/02/19 09:24 Hydralazine HCl (Apresoline) 10 mg Q4H PRN IV SBP > 170mmHg 04/29/19 06:38 05/08/19 06:37 Lansoprazole (Prevacid) 30 mg DAILY ORAL 04/29/19 09:00 05/13/19 08:59 05/02/19 09:23 Memantine (Namenda) 5 mg BID ORAL 04/29/19 09:00 05/04/19 17:59 05/02/19 09:23 Multivitamins (Multivitamins) 1 tab DAILY ORAL 05/01/19 09:00 05/31/19 08:59 05/02/19 09:23 Tamsulosin HCl (Flomax) 0.4 mg BEDTIME ORAL 04/29/19 21:00 05/13/19 20:59 04/30/19 21:23 Tramadol HCl (Ultram) 50 mg Q8H PRN NG Moderate Pain (Pain Scale 4-6) 04/29/19 06:36 05/04/19 06:35 04/29/19 20:11 Ganesh Mathews MD May 02, 2019 11:28
[2019-05-02 12:00] VITALS: BP 99/58
--- NOTE | 2019-05-02 12:45 | Progress Note ---
DATE: 05/02/2019 SUBJECTIVE: This is a 73-year-old male patient with generalized weakness. This patient is confused, disorganized, altered mental status. The patient has altered mental status, confusion, decline in cognition below his baseline. That is why, his attending has requested daily psychiatric consultation. MENTAL STATUS EXAMINATION: This is a 73-year-old male. Appearance is disheveled. Attitude, irritable and agitated. Affect, guarded and restricted. Intellect, poor. Mood, depressed and anxious. Motor activity, psychomotor agitation. Attention span is poor. Orientation x2. Speech is low volume and slurred. Thought process, disorganized and illogical. Insight and judgment is poor. DIAGNOSIS: . PLAN: Plan is to treat the patient with medication regimen consisting of Namenda 5 mg twice a day. A 20 minutes of cognitive behavioral therapy to help him identify his automatic negative thoughts and help him convert those negative thoughts to more positive thoughts to reduce depression, anxiety, and mood lability. Chart reviewed. Discussed with staff. Seen and assessed in his room. Cherise Palma M.D. DR: FREDIS JOB#: [id number] CC:
--- NOTE | 2019-05-02 12:52 | Nephrology Progress Note ---
Assessment/Plan Status: stable, progressing Assessment/Plan: A/P 1. CKD 3B- Cr stable 1.6-1.8 stable. Cr at 2. Encourage po fluids 2. Prostate cancer with elevated PSA- Oncology to manage 3. Hypokalemia- corrected 5. Hypercalcemia of malignancy- s/p pamidronate x 1 and calcitonin. 6. Resp FL- resolved Subjective Date patient seen: May 02, 2019 Time patient seen: 12:51 ROS Limited/Unobtainable: No Allergies: Coded Allergies: No Known Allergies (Unverified , 04/03/19) Subjective Patient awaiting DC to SNF today Objective Last 24 Hour Vital Signs Date Time Temp Pulse Resp B/P (MAP) Pulse Ox O2 Delivery O2 Flow Rate FiO2 05/02/19 12:00 98.2 111 18 99/58 (72) 98 05/02/19 12:00 Nasal Cannula 2.0 Nasal Cannula 2.0 05/02/19 12:00 2.0 05/02/19 11:47 116 05/02/19 10:29 118 18 98 Nasal Cannula 4.0 36 112 20 94 05/02/19 08:20 Nasal Cannula 2.0 Nasal Cannula 2.0 05/02/19 08:00 110 05/02/19 08:00 98.0 115 22 105/70 (82) 98 05/02/19 08:00 2.0 05/02/19 07:35 93 Nasal Cannula 4.0 36 05/02/19 07:35 116 20 97 Nasal Cannula 4.0 36 118 22 93 05/02/19 04:00 97.2 121 18 122/62 (82) 98 05/02/19 04:00 119 05/02/19 04:00 2.0 05/02/19 03:16 113 22 98 Nasal Cannula 4.0 36 122 24 90 05/02/19 00:00 119 05/02/19 00:00 2.0 05/02/19 00:00 97.2 110 17 100/66 (77) 98 05/01/19 22:56 108 24 99 Nasal Cannula 4.0 36 120 25 92 05/01/19 20:00 118 05/01/19 20:00 2.0 05/01/19 20:00 97.3 117 16 95/63 (74) 98 05/01/19 19:24 92 Nasal Cannula 4.0 36 05/01/19 19:21 111 21 99 Nasal Cannula 4.0 36 119 23 92 05/01/19 16:00 2.0 05/01/19 16:00 97.4 118 18 96/70 (79) 93 05/01/19 15:29 119 05/01/19 14:20 110 20 99 Nasal Cannula 4.0 36 114 20 94 Intake and Output 05/01/19 05/02/19 19:00 07:00 Intake Total 480 ml Output Total 400 ml Balance 80 ml Intake Oral 480 ml Output Urine Total 400 ml # Voids 2 Laboratory Tests 05/02/19 06:25: White Blood Count 5.5, Red Blood Count 3.40L, Hemoglobin 9.5L, Hematocrit 29.2L , Mean Corpuscular Volume 86, Mean Corpuscular Hemoglobin 28.1, Mean Corpuscular Hemoglobin Concent 32.7, Red Cell Distribution Width 14.7, Platelet Count 268, Mean Platelet Volume 4.3L, Neutrophils (%) (Auto) 61.4, Lymphocytes ( %) (Auto) 20.5, Monocytes (%) (Auto) 7.3, Eosinophils (%) (Auto) 9.9H, Basophils (%) (Auto) 1.0, Sodium Level 148H, Potassium Level 3.8, Chloride Level 106, Carbon Dioxide Level 39H, Anion Gap 3L, Blood Urea Nitrogen 28H, Creatinine 2.0H, Estimat Glomerular Filtration Rate 40.0, Glucose Level 93, Calcium Level 9.5 Height (Feet): 5 Height (Inches): 7.00 Weight (Pounds): 142 General Appearance: no apparent distress EENT: normal ENT inspection Neck: normal alignment Cardiovascular: normal rate, regular rhythm Respiratory/Chest: rhonchi - bilaterally Abdomen: non tender, soft Edema: no edema noted Arm (L), no edema noted Arm (R), no edema noted Leg (L), no edema noted Leg (R), no edema noted Pedal (L), no edema noted Pedal (R), no edema noted Generalized Carlos White MD May 02, 2019 12:52
[2019-05-02] MEDS ORDERED: Tubing IV Secondary IV ONE (13:09)
[2019-05-02] MEDS ORDERED: NS 275ml ONE (13:09)
--- NOTE | 2019-05-02 13:34 | Cardiac Electrophysiology PN ---
Assessment/Plan Assessment/Plan 1. Status post 2 separate non infarctional juan antonio arrest with asystole. Both episodes happened in the setting of respiratory failure and off the Vent No evidence of ventricular tachycardia or ventricular fibrillation. Off any GARCÍA or AVN olivia EF 65%. All 3 troponins were less than 0.1. Watch for recurrence of bradycardia Family refusing any procedures 2. Recurrent Respiratory failure, extubated 04/08/19, reintubated 04/13/19 and reextubated 04/19/19 3. History of stage III prostate cancer, followed by Dr. Monroy and Dr Root. Morales was changed. Usually follows up at [facility] 4. S/P Shock. Off Levophed 5. Hypercalcemia due to prostate cancer. 6. Hypernatremia. 7. Anemia, s/p multiple PRBCs 8. Low K. Replace 9. Dysphagia, family refused PEG by Dr. Lamb On Puree diet but not getting enough calories 10. Pleural effusion, off Lasix drip. Family refused thoracentesis DW RN [facility] declined patient OK to DC from cardiac stand point Subjective Subjective On tele. No juan antonio cardia recurrence.No CP or SOB. DC home planning today [facility] declined him and family refusing thoracentesis or PEG Objective Last 24 Hour Vital Signs Date Time Temp Pulse Resp B/P (MAP) Pulse Ox O2 Delivery O2 Flow Rate FiO2 05/02/19 12:00 98.2 111 18 99/58 (72) 98 05/02/19 12:00 Nasal Cannula 2.0 Nasal Cannula 2.0 05/02/19 12:00 2.0 05/02/19 11:47 116 05/02/19 10:29 118 18 98 Nasal Cannula 4.0 36 112 20 94 05/02/19 08:20 Nasal Cannula 2.0 Nasal Cannula 2.0 05/02/19 08:00 110 05/02/19 08:00 98.0 115 22 105/70 (82) 98 05/02/19 08:00 2.0 05/02/19 07:35 93 Nasal Cannula 4.0 36 05/02/19 07:35 116 20 97 Nasal Cannula 4.0 36 118 22 93 05/02/19 04:00 97.2 121 18 122/62 (82) 98 05/02/19 04:00 119 2/29/20 04:00 2.0 05/02/19 03:16 113 22 98 Nasal Cannula 4.0 36 122 24 90 05/02/19 00:00 119 05/02/19 00:00 2.0 05/02/19 00:00 97.2 110 17 100/66 (77) 98 05/01/19 22:56 108 24 99 Nasal Cannula 4.0 36 120 25 92 05/01/19 20:00 118 05/01/19 20:00 2.0 05/01/19 20:00 97.3 117 16 95/63 (74) 98 05/01/19 19:24 92 Nasal Cannula 4.0 36 05/01/19 19:21 111 21 99 Nasal Cannula 4.0 36 119 23 92 05/01/19 16:00 2.0 05/01/19 16:00 97.4 118 18 96/70 (79) 93 05/01/19 15:29 119 05/01/19 14:20 110 20 99 Nasal Cannula 4.0 36 114 20 94 Intake and Output 05/01/19 05/02/19 19:00 07:00 Intake Total 480 ml Output Total 400 ml Balance 80 ml Intake Oral 480 ml Output Urine Total 400 ml # Voids 2 Laboratory Tests Test 05/02/19 06:25 White Blood Count 5.5 K/UL (4.8-10.8) Red Blood Count 3.40 M/UL (4.70-6.10) L Hemoglobin 9.5 G/DL (14.2-18.0) L Hematocrit 29.2 % (42.0-52.0) L Mean Corpuscular Volume 86 FL (80-99) Mean Corpuscular Hemoglobin 28.1 PG (27.0-31.0) Mean Corpuscular Hemoglobin Concent 32.7 G/DL (32.0-36.0) Red Cell Distribution Width 14.7 % (11.6-14.8) Platelet Count 268 K/UL (150-450) Mean Platelet Volume 4.3 FL (6.5-10.1) L Neutrophils (%) (Auto) 61.4 % (45.0-75.0) Lymphocytes (%) (Auto) 20.5 % (20.0-45.0) Monocytes (%) (Auto) 7.3 % (1.0-10.0) Eosinophils (%) (Auto) 9.9 % (0.0-3.0) H Basophils (%) (Auto) 1.0 % (0.0-2.0) Sodium Level 148 MMOL/L (136-145) H Potassium Level 3.8 MMOL/L (3.5-5.1) Chloride Level 106 MMOL/L (98-107) Carbon Dioxide Level 39 MMOL/L (21-32) H Anion Gap 3 mmol/L (5-15) L Blood Urea Nitrogen 28 mg/dL (7-18) H Creatinine 2.0 MG/DL (0.55-1.30) H Estimat Glomerular Filtration Rate 40.0 mL/min (>60) Glucose Level 93 MG/DL (74-106) Calcium Level 9.5 MG/DL (8.5-10.1) Objective HEENT: No JVD. LUNGS: Coarse rhonchi. CARDIOVASCULAR: Regular S1 and S2 ABDOMEN: Soft and nondistended. EXTREMITIES: No pitting edema. Nain Cortez MD May 02, 2019 13:34
--- NOTE | 2019-05-02 14:08 | Surgery Progress Note ---
Surgery Progress Note Subjective Procedure Performed right femoral central venous catheter insertion Symptoms: improved Objective Last 24 Hour Vital Signs Date Time Temp Pulse Resp B/P (MAP) Pulse Ox O2 Delivery O2 Flow Rate FiO2 05/02/19 12:00 98.2 111 18 99/58 (72) 98 05/02/19 12:00 Nasal Cannula 2.0 Nasal Cannula 2.0 05/02/19 12:00 2.0 05/02/19 11:47 116 05/02/19 10:29 118 18 98 Nasal Cannula 4.0 36 112 20 94 05/02/19 08:20 Nasal Cannula 2.0 Nasal Cannula 2.0 05/02/19 08:00 110 05/02/19 08:00 98.0 115 22 105/70 (82) 98 05/02/19 08:00 2.0 05/02/19 07:35 93 Nasal Cannula 4.0 36 05/02/19 07:35 116 20 97 Nasal Cannula 4.0 36 118 22 93 05/02/19 04:00 97.2 121 18 122/62 (82) 98 05/02/19 04:00 119 05/02/19 04:00 2.0 05/02/19 03:16 113 22 98 Nasal Cannula 4.0 36 122 24 90 05/02/19 00:00 119 05/02/19 00:00 2.0 05/02/19 00:00 97.2 110 17 100/66 (77) 98 05/01/19 22:56 108 24 99 Nasal Cannula 4.0 36 120 25 92 05/01/19 20:00 118 05/01/19 20:00 2.0 05/01/19 20:00 97.3 117 16 95/63 (74) 98 05/01/19 19:24 92 Nasal Cannula 4.0 36 05/01/19 19:21 111 21 99 Nasal Cannula 4.0 36 119 23 92 05/01/19 16:00 2.0 05/01/19 16:00 97.4 118 18 96/70 (79) 93 05/01/19 15:29 119 05/01/19 14:20 110 20 99 Nasal Cannula 4.0 36 114 20 94 I&O Intake and Output 05/01/19 05/02/19 19:00 07:00 Intake Total 480 ml Output Total 400 ml Balance 80 ml Intake Oral 480 ml Output Urine Total 400 ml # Voids 2 Dressing: dry Wound: clean Cardiovascular: RSR Respiratory: clear Abdomen: soft, non-tender, present bowel sounds Extremities: no tenderness, no cyanosis Laboratory Tests Test 05/02/19 06:25 White Blood Count 5.5 K/UL (4.8-10.8) Red Blood Count 3.40 M/UL (4.70-6.10) L Hemoglobin 9.5 G/DL (14.2-18.0) L Hematocrit 29.2 % (42.0-52.0) L Mean Corpuscular Volume 86 FL (80-99) Mean Corpuscular Hemoglobin 28.1 PG (27.0-31.0) Mean Corpuscular Hemoglobin Concent 32.7 G/DL (32.0-36.0) Red Cell Distribution Width 14.7 % (11.6-14.8) Platelet Count 268 K/UL (150-450) Mean Platelet Volume 4.3 FL (6.5-10.1) L Neutrophils (%) (Auto) 61.4 % (45.0-75.0) Lymphocytes (%) (Auto) 20.5 % (20.0-45.0) Monocytes (%) (Auto) 7.3 % (1.0-10.0) Eosinophils (%) (Auto) 9.9 % (0.0-3.0) H Basophils (%) (Auto) 1.0 % (0.0-2.0) Sodium Level 148 MMOL/L (136-145) H Potassium Level 3.8 MMOL/L (3.5-5.1) Chloride Level 106 MMOL/L (98-107) Carbon Dioxide Level 39 MMOL/L (21-32) H Anion Gap 3 mmol/L (5-15) L Blood Urea Nitrogen 28 mg/dL (7-18) H Creatinine 2.0 MG/DL (0.55-1.30) H Estimat Glomerular Filtration Rate 40.0 mL/min (>60) Glucose Level 93 MG/DL (74-106) Calcium Level 9.5 MG/DL (8.5-10.1) Plan Problems: (1) Cardiac arrest Assessment & Plan: Acute deterioration Cardiovascular lopez ACLS required for resuscitation Still full code Hypotensive intensive care unit requiring a new central venous catheter see note Antibiotics as per infectious caries cont current treatment improving trend labs diet as tolerated improving on bipap may require intubation if so will recommend trach will follow with recs cont tube feeds lasix gtt family does not want thora repeat swallow may consider po intake for comfort measure does not want peg downgraded swallow noted improving thank you (2) Stage III adenocarcinoma of prostate Assessment & Plan: patient with state 3 prostate cancer pending treatment at [facility] unlikely related to acute cardiac arrest this am abd exam with mild distention no acute surgical intervention planned onc input improving extubated diet as tolerated improving d/c planning thank you will follow with recs DAILY ESTIMATED NEEDS: Needs based on Underweight, cancer, Pulmonary 54.7kg 30-35 kcals/kg 9400-2874 total kcals 1.25-2 g protein/kg 68-109 g total protein 25-30 mL/kg 4030-6167 total fluid mLs NUTRITION DIAGNOSIS: Underweight r/t cancer? as evidenced by pt w/ prostate cancer, elevated antigen and calcium levels, w/ generalized moderate wasting, previously poor po intake, pt is 81% of [place] body Weight, currently s/p code blue x2, re-intubated now extubated, NGT feeds held, on oral diet now w/ texture modifications. CURRENT DIET:Regular puree / NTL PO DIET RECOMMENDATIONS: Maintain Regular diet/ texture per [employer] RECORD CLERK ADDITIONAL RECOMMENDATIONS: 1) Recalibrated bed wts for daily wts -> daily wts are inconsistent 2) Wound healing: add MVI + Vit C 250mg QD + Coleman BID 3) Monitor lytes, replete as needed 4) Rec D5% with current fair to poor po intake to prevent hypoglycemia 5) Continue Ensure Enlive TID . Jay Acevedo May 02, 2019 14:08
--- NOTE | 2019-05-02 14:13 | Infectious Diseases Prog Note ---
Assessment/Plan Assessment/Plan Assessment: Shock, recurrent- off pressors -04/20 CXR: Interim extubation. Increased left greater than right pleural fluid Probable PNA, SP Rx -04/21 CXR:Shifting infiltrates on the right, with increased hazy midlung infiltrate, improved right basilar consolidation or atelectasis or pleural fluid. Slightly increased generalized mild interstitial congestion. Stable large left pleural effusion Low grade fever; SP Mild leukocytosis, recurrent- SP -04/15 sp cx normal resp sharyn (prelim) -04/14 u/a wbc 10-15, nit neg, leuk +3; ucx Neg CXR: Interim development of complete right upper lobe atelectasis. Nonspecific diffuse hazy left lung opacity, likely mild pulmonary edema. -04/07 Bcx NTD u/a wbc tnct, nit neg, leuk +; ucx neg -04/06 CXR: Interval resolution of right apical density. This suggests the diagnosis was atelectasis rather than an apical cap from blood, which was suggested as a possibility on the prior report. The right upper lobe atelectasis has resolved. Suspicion of new atelectasis at the right lung base. Sepsis, Sp UTI, Sp Rx B/l hydroureteronephrosis -04/10 CT abd/p: Evidence of advanced metastatic neoplasm likely secondary to prostate carcinoma. Extensive retroperitoneal and pelvic lymphadenopathy complicated by presence of bilateral hydroureteronephrosis. Extensive metastatic disease involving the bones also noted. Small left pleural effusion. Right trace right pleural effusion. Right inguinal hernia containing a small amount of fluid. Alternatively this could represent part of the testis. Anasarca. -u/a wbc 20-30, nit +, leuk +3; ucx >100k E.coli (R amp, bactrim; otherwise S) Probable Aspiration pneumonitis vs PNA -04/08 CXR: Patchy perihilar disease which may be asymmetric interstitial edema or infiltrate unchanged. Interval resolution of right basal atelectasis. -04/07 sp cx normal sharyn(prelim) s/p recent fall s/p bradycardia>cardiac arrest 04/13 s/p asystole cardiac arrest 04/06 VDRF; s/p extubation 04/08 VDRF 04/13; sp extubation 04/19 LETA Hypokalemia prostate CA stage IV, mets to bone chronic indwelling guerra catheter Plan: monitor pt off of AB Rx - 04/28 Sp Cefepime #14 -04/17 SP Vanc IV #4 -10 SP Ceftriaxone #4 - 2/ Sp ZOsyn #4 -/6 SP IV Vancomycin #3 -2/ SP Ceftriaxone #4 -Monitor CBC/CMP, temperatures -aspiration precautions -Cards, renal, Uro, pulm f/u - possible transfer out to [facility] Thank you for this consultation. Will continue to follow along with you. Subjective Allergies: Coded Allergies: No Known Allergies (Unverified , 04/03/19) Subjective afebrile no leukocytosis Objective Vital Signs Last 24 Hour Vital Signs Date Time Temp Pulse Resp B/P (MAP) Pulse Ox O2 Delivery O2 Flow Rate FiO2 05/02/19 12:00 98.2 111 18 99/58 (72) 98 05/02/19 12:00 Nasal Cannula 2.0 Nasal Cannula 2.0 05/02/19 12:00 2.0 05/02/19 11:47 116 05/02/19 10:29 118 18 98 Nasal Cannula 4.0 36 112 20 94 05/02/19 08:20 Nasal Cannula 2.0 Nasal Cannula 2.0 05/02/19 08:00 110 05/02/19 08:00 98.0 115 22 105/70 (82) 98 05/02/19 08:00 2.0 05/02/19 07:35 93 Nasal Cannula 4.0 36 05/02/19 07:35 116 20 97 Nasal Cannula 4.0 36 118 22 93 05/02/19 04:00 97.2 121 18 122/62 (82) 98 05/02/19 04:00 119 05/02/19 04:00 2.0 05/02/19 03:16 113 22 98 Nasal Cannula 4.0 36 122 24 90 05/02/19 00:00 119 05/02/19 00:00 2.0 05/02/19 00:00 97.2 110 17 100/66 (77) 98 05/01/19 22:56 108 24 99 Nasal Cannula 4.0 36 120 25 92 05/01/19 20:00 118 05/01/19 20:00 2.0 05/01/19 20:00 97.3 117 16 95/63 (74) 98 05/01/19 19:24 92 Nasal Cannula 4.0 36 05/01/19 19:21 111 21 99 Nasal Cannula 4.0 36 119 23 92 05/01/19 16:00 2.0 05/01/19 16:00 97.4 118 18 96/70 (79) 93 05/01/19 15:29 119 05/01/19 14:20 110 20 99 Nasal Cannula 4.0 36 114 20 94 Height (Feet): 5 Height (Inches): 7.00 Weight (Pounds): 142 Objective General Appearance: normal inspection, alert, Chronically Ill Neck: normal inspection, supple Respiratory: normal inspection, lungs clear, no wheezing Cardiovascular # regular rate, rhythm, no edema Gastrointestinal: normal inspection, normal bowel sounds, non tender, soft, no guardinga Musculoskeletal: normal inspection, back normal, normal range of motion Skin: no rash Laboratory Tests Test 05/02/19 06:25 White Blood Count 5.5 K/UL (4.8-10.8) Red Blood Count 3.40 M/UL (4.70-6.10) L Hemoglobin 9.5 G/DL (14.2-18.0) L Hematocrit 29.2 % (42.0-52.0) L Mean Corpuscular Volume 86 FL (80-99) Mean Corpuscular Hemoglobin 28.1 PG (27.0-31.0) Mean Corpuscular Hemoglobin Concent 32.7 G/DL (32.0-36.0) Red Cell Distribution Width 14.7 % (11.6-14.8) Platelet Count 268 K/UL (150-450) Mean Platelet Volume 4.3 FL (6.5-10.1) L Neutrophils (%) (Auto) 61.4 % (45.0-75.0) Lymphocytes (%) (Auto) 20.5 % (20.0-45.0) Monocytes (%) (Auto) 7.3 % (1.0-10.0) Eosinophils (%) (Auto) 9.9 % (0.0-3.0) H Basophils (%) (Auto) 1.0 % (0.0-2.0) Sodium Level 148 MMOL/L (136-145) H Potassium Level 3.8 MMOL/L (3.5-5.1) Chloride Level 106 MMOL/L (98-107) Carbon Dioxide Level 39 MMOL/L (21-32) H Anion Gap 3 mmol/L (5-15) L Blood Urea Nitrogen 28 mg/dL (7-18) H Creatinine 2.0 MG/DL (0.55-1.30) H Estimat Glomerular Filtration Rate 40.0 mL/min (>60) Glucose Level 93 MG/DL (74-106) Calcium Level 9.5 MG/DL (8.5-10.1) Current Medications Medications (Trade) Dose Ordered Sig/[place] Route PRN Reason Start Time Stop Time Status Last Admin Dose Admin Acetaminophen (Tylenol) 650 mg Q6H PRN ORAL Mild Pain/Temp > 100.5 04/29/19 06:37 05/24/19 06:36 Acetylcysteine (Mucomyst) 200 mg Q4HRT N 04/29/19 07:00 05/18/19 10:59 05/02/19 10:29 Albuterol/ Ipratropium (Albuterol/ Ipratropium) 3 ml Q4HRT N 04/29/19 07:00 05/03/19 22:59 05/02/19 10:29 Ascorbic Acid (Vitamin C) 250 mg DAILY ORAL 05/01/19 09:00 05/31/19 08:59 05/02/19 09:23 Dronabinol (Marinol) 2.5 mg TID ORAL 05/01/19 13:00 05/31/19 12:59 05/02/19 12:59 Enoxaparin Sodium (Lovenox) 40 mg DAILY SUBQ 04/29/19 09:00 05/25/19 08:59 05/02/19 09:24 Hydralazine HCl (Apresoline) 10 mg Q4H PRN IV SBP > 170mmHg 04/29/19 06:38 05/08/19 06:37 Lansoprazole (Prevacid) 30 mg DAILY ORAL 04/29/19 09:00 05/13/19 08:59 05/02/19 09:23 Memantine (Namenda) 5 mg BID ORAL 04/29/19 09:00 05/04/19 17:59 05/02/19 09:23 Multivitamins (Multivitamins) 1 tab DAILY ORAL 05/01/19 09:00 05/31/19 08:59 05/02/19 09:23 Tamsulosin HCl (Flomax) 0.4 mg BEDTIME ORAL 04/29/19 21:00 05/13/19 20:59 04/30/19 21:23 Tramadol HCl (Ultram) 50 mg Q8H PRN NG Moderate Pain (Pain Scale 4-6) 04/29/19 06:36 05/04/19 06:35 04/29/19 20:11 Rafia Nielson M.D. May 02, 2019 14:13
[2019-05-02 16:00] VITALS: BP 103/68
--- NOTE | 2019-05-02 16:27 | NUR ---
NURSE NOTES/DISCHARGE UPDATES spoke to tanika Reyes in regards to discharge order, daughter refusing discharge to [facility] and wants pt to be discharge home with HH, she wants to speak with dr robin as well in regards to discharge planning, Dr Robin came here and he was notified and he ordered discharge home with HH and if clear by all. primary RN worked on getting the clearance, spoke too tanika Reyes again and she was made aware and gave her update, according to her pt have no oxygen at home. patient is on O2 and checked his oxygen saturation and it was 83-84 in RA, son called and spoke to him and he said they will come pick him up tomorrow. Addendum: 05/02/19 at 1646 by CA FABIAN RN CM was notified of the order.
--- NOTE | 2019-05-02 16:30 | NUR ---
O2 saturation in RA resting 83-84%, will notify
--- NOTE | 2019-05-02 17:00 | NUR ---
NURSE NOTES: Called Dr Mathews and reported that pt O2 sat is on low 80s without oxygen. MD ordered O2 therapy at home (2-4L/min)
--- NOTE | 2019-05-02 17:25 | NUR ---
discharge update patient needs home oxygen, per Sunshine CHAUDHARY call Eun for oxygen, called and spoke to her and informed her regarding need of home O2. information needed faxed to [phone].
[2019-05-02] MEDS: traMADol 50mg tab NG PRN (18:35)
--- NOTE | 2019-05-02 19:23 | NUR ---
HAND-OFF: Report given to BLANCA Maharaj and BLANCA Barrett. Endorsed plan of care.
--- NOTE | 2019-05-02 19:30 | NUR ---
NURSE NOTES: Received report from BLANCA Arroyo. Patient in bed laying awake. There are no signs of distress or pain. He is awaiting his breathing treatment. IV checked and patent and flushed. No signs of erythema, infiltration, or bleeding. Bed in the lowest position, call light within reach, side rails up x3 and brakes up. Will continue plan of care.
[2019-05-02 20:00] VITALS: BP 146/88
[2019-05-02] MEDS: Tamsulosin 0.4mg cap ORAL SCH (20:16)
[2019-05-03] VITALS: BP 95/65
[2019-05-03] MEDS: Albuterol/Ipratropium 3ml neb HHN SCH ×5 (02:21→19:24)
[2019-05-03] MEDS: Acetylcysteine 20% Soln 4ml HHN SCH ×6 (02:21→22:17)
--- NOTE | 2019-05-03 02:53 | NUR ---
NURSE NOTES: Patient laying in bed at this time, sleeping. No signs of distress or pain noted. Bed in the lowest position with call light within reach.
[2019-05-03 04:00] VITALS: BP 103/72
[2019-05-03] MEDS: traMADol 50mg tab NG PRN ×2 (04:49→18:23)
--- NOTE | 2019-05-03 05:38 | NUR ---
NURSE NOTES: Called Dr. Mathews regarding patient's request of PRN breathing treatment and one that will not increase his heart rate. Awaiting callback.
--- NOTE | 2019-05-03 06:44 | NUR ---
NURSE NOTES: Called Dr. Mathews again regarding patient having shortness of breath and request for PRN breathing treatment. Additionally informed Dr. Mathews that patient's heart rate goes up to the 120s and that patient has been exhibiting purse lipped breathing throughout the night. Received new orders for Albuterol nebulizer Q4HR PRN and chest x-ray. Noted and carried out.
--- NOTE | 2019-05-03 07:14 | NUR ---
HAND-OFF: Report given to BLANCA Fitzpatrick. Patient in bed sleeping. No signs of distress or pain noted at this time.
--- NOTE | 2019-05-03 07:40 | NUR ---
NURSE NOTES: Received report from BLANCA Maharaj. Patient in bed resting, no active s/s cardiac, respiratory distress noticed at this time. Endorsed patient was having SOB last night, on 4L oxygen via [place], no SOB at this time. O2 sat 93% at this time. IV on left wrist 20G, asymptomatic, patent, intact. Bed in lowest position, side rails upx2, call light within reach, bed alarm on. Will continue to monitor.
--- NOTE | 2019-05-03 07:51 | Pulmonology Progress Note ---
Assessment/Plan Assessment/Plan IMPRESSION: 1. Status post asystolic cardiac arrest. Again on 04/13/19 2. Respiratory failure, re-intubated; and extubated 04/20/19 3. Altered mental status. Resolved 4. Hypernatremia. Corrected. 5. Hypokalemia . Corrected. 6. History of COPD. 7. Prostate CA. DISCUSSION: 1. Off BiPAP 2. Needs PEG 3. Doing well post extubation 5. Off diuretics 6. Transfused CXR looking better; Will repeat today (05.03.19) Needs PEG; would not advise PO diet again family refused PEG No longer on BiPAP has large left pleural effusion, family refuses thoracentesis. DC BiPAP DC to [facility] at family request Alternately, dc home with Ganesh Mathews M.D. Subjective Interval Events: Tachypnic this AM Constitutional: Reports: no symptoms HEENT: Repors: no symptoms Respiratory: Reports: shortness of breath Cardiovascular: Reports: no symptoms Gastrointestinal/Abdominal: Reports: no symptoms Genitourinary: Reports: no symptoms Allergies: Coded Allergies: No Known Allergies (Unverified , 04/03/19) Objective Last 24 Hour Vital Signs Date Time Temp Pulse Resp B/P (MAP) Pulse Ox O2 Delivery O2 Flow Rate FiO2 05/03/19 06:08 117 18 99 Nasal Cannula 4.0 36 115 18 94 05/03/19 06:07 94 Nasal Cannula 4.0 36 05/03/19 04:00 98.6 116 18 103/72 (82) 96 05/03/19 04:00 115 05/03/19 02:21 114 18 98 Nasal Cannula 4.0 36 111 18 94 05/03/19 00:00 119 05/03/19 00:00 98.4 115 20 95/65 (75) 98 05/02/19 23:23 116 18 98 Nasal Cannula 4.0 36 108 16 95 05/02/19 21:00 Nasal Cannula 4.0 Nasal Cannula 4.0 05/02/19 20:00 118 05/02/19 20:00 97.7 126 20 146/88 (107) 93 05/02/19 19:49 94 Nasal Cannula 4.0 36 05/02/19 19:48 112 18 98 Nasal Cannula 4.0 36 122 20 94 05/02/19 17:13 83 05/02/19 16:05 115 05/02/19 16:00 97.7 118 20 103/68 (80) 97 05/02/19 16:00 2.0 05/02/19 16:00 Nasal Cannula 2.0 Nasal Cannula 2.0 05/02/19 14:36 114 20 99 Nasal Cannula 4.0 36 118 22 95 05/02/19 12:00 98.2 111 18 99/58 (72) 98 05/02/19 12:00 Nasal Cannula 2.0 Nasal Cannula 2.0 05/02/19 12:00 2.0 05/02/19 11:47 116 05/02/19 10:29 118 18 98 Nasal Cannula 4.0 36 112 20 94 05/02/19 08:20 Nasal Cannula 2.0 Nasal Cannula 2.0 05/02/19 08:00 110 05/02/19 08:00 98.0 115 22 105/70 (82) 98 05/02/19 08:00 2.0 Intake and Output 05/02/19 05/03/19 19:00 07:00 Intake Total 720 ml Output Total 600 ml 300 ml Balance 120 ml -300 ml Intake Oral 720 ml Output Urine Total 600 ml 300 ml # Voids 1 # Bowel Movements 4 1 General Appearance: no acute distress HEENT: normocephalic Respiratory/Chest: chest wall non-tender, decreased breath sounds Cardiovascular: normal peripheral pulses Abdomen: normal bowel sounds Current Medications Medications (Trade) Dose Ordered Sig/La Nena Route PRN Reason Start Time Stop Time Status Last Admin Dose Admin Acetaminophen (Tylenol) 650 mg Q6H PRN ORAL Mild Pain/Temp > 100.5 04/29/19 06:37 05/24/19 06:36 05/02/19 20:16 Acetylcysteine (Mucomyst) 200 mg Q4HRT HHN 04/29/19 07:00 05/18/19 10:59 05/03/19 06:07 Albuterol/ Ipratropium (Albuterol/ Ipratropium) 3 ml Q4H PRN HHN Shortness of Breath 05/03/19 07:00 05/08/19 06:59 Albuterol/ Ipratropium (Albuterol/ Ipratropium) 3 ml Q4HRT HHN 04/29/19 07:00 05/03/19 22:59 05/03/19 06:07 Ascorbic Acid (Vitamin C) 250 mg DAILY ORAL 05/01/19 09:00 05/31/19 08:59 05/02/19 09:23 Dronabinol (Marinol) 2.5 mg TID ORAL 05/01/19 13:00 05/31/19 12:59 05/02/19 17:34 Enoxaparin Sodium (Lovenox) 40 mg DAILY SUBQ 04/29/19 09:00 05/25/19 08:59 05/02/19 09:24 Hydralazine HCl (Apresoline) 10 mg Q4H PRN IV SBP > 170mmHg 04/29/19 06:38 05/08/19 06:37 Lansoprazole (Prevacid) 30 mg DAILY ORAL 04/29/19 09:00 05/13/19 08:59 05/02/19 09:23 Memantine (Namenda) 5 mg BID ORAL 04/29/19 09:00 05/04/19 17:59 05/02/19 17:34 Multivitamins (Multivitamins) 1 tab DAILY ORAL 05/01/19 09:00 05/31/19 08:59 05/02/19 09:23 Tamsulosin HCl (Flomax) 0.4 mg BEDTIME ORAL 04/29/19 21:00 05/13/19 20:59 05/02/19 20:16 Tramadol HCl (Ultram) 50 mg Q8H PRN NG Moderate Pain (Pain Scale 4-6) 04/29/19 06:36 05/04/19 06:35 05/03/19 04:49 Ganesh Mathews MD May 03, 2019 07:51
[2019-05-03 08:00] VITALS: BP 100/67
[2019-05-03 08:23] LABS: BASOPHILS % (AUTO) 1.5 % (0.0-2.0); EOSINOPHILS % (AUTO) 10.4 % (0.0-3.0); HEMATOCRIT 25.1 % (42.0-52.0); HEMOGLOBIN 8.3 G/DL (14.2-18.0); LYMPHOCYTES % (AUTO) 15.2 % (20.0-45.0); MEAN CORPUSCULAR VOLUME 86 FL (80-99); MONOCYTES % (AUTO) 9.6 % (1.0-10.0); NEUTROPHILS % (AUTO) 63.2 % (45.0-75.0); PLATELET COUNT 256 K/UL (150-450); RED BLOOD COUNT 2.91 M/UL (4.70-6.10); RED CELL DISTRIBUTION WIDTH 14.7 % (11.6-14.8); WHITE BLOOD COUNT 5.2 K/UL (4.8-10.8)
--- NOTE | 2019-05-03 08:35 | NUR ---
NURSE NOTES: Dr. Toussaint at the bedside made aware patient was having SOB last night, concern regarding discharge. Per MD, may need to postpone discharge, and need Dr. Mathews's clearance prior to discharge. Spoke with Son, regarding SOB and discharge may be postponed due to change in condition. Will continue to monitor.
[2019-05-03 08:52] LABS: ANION GAP 3 mmol/L (5-15); BLOOD UREA NITROGEN 33 mg/dL (7-18); CALCIUM 9.2 MG/DL (8.5-10.1); CARBON DIOXIDE 39 MMOL/L (21-32); CHLORIDE 107 MMOL/L (98-107); CREATININE 2.1 MG/DL (0.55-1.30); POTASSIUM 4.3 MMOL/L (3.5-5.1); SODIUM 149 MMOL/L (136-145)
[2019-05-03] MEDS: Dronabinol 2.5mg Cap ORAL SCH ×3 (08:54→17:33)
[2019-05-03] MEDS: Ascorbic Acid 500mg tab ORAL SCH (08:54)
[2019-05-03] MEDS: Memantine 5 MG TAB ORAL SCH ×2 (08:54→17:33)
[2019-05-03] MEDS: Enoxaparin 40mg Inj SUBQ SCH (08:55)
--- NOTE | 2019-05-03 08:55 | General Progress Note ---
Assessment/Plan Problem List: (1) UTI (urinary tract infection) ICD Codes: N39.0 - Urinary tract infection, site not specified SNOMED: 36784581 (2) Weak ICD Codes: R53.1 - Weakness SNOMED: 54974883 (3) Anemia ICD Codes: D64.9 - Anemia, unspecified SNOMED: 102451041 (4) Dehydration ICD Codes: E86.0 - Dehydration SNOMED: 40609375, 28476504 (5) Episode of generalized weakness ICD Codes: R53.1 - Weakness SNOMED: 19940427 (6) Stage III adenocarcinoma of prostate ICD Codes: C61 - Malignant neoplasm of prostate SNOMED: 333830116, 30380093 Status: stable, progressing Assessment/Plan: o2 pulm tx pt diet abx iv fluid heme gi eval cbc bmp am dc w hh if clear Subjective Constitutional: Reports: weakness Respiratory: Reports: shortness of breath Allergies: Coded Allergies: No Known Allergies (Unverified , 04/03/19) All Systems: reviewed and negative except above Subjective o2nc calm Objective Last 24 Hour Vital Signs Date Time Temp Pulse Resp B/P (MAP) Pulse Ox O2 Delivery O2 Flow Rate FiO2 05/03/19 06:08 117 18 99 Nasal Cannula 4.0 36 115 18 94 05/03/19 06:07 94 Nasal Cannula 4.0 36 05/03/19 04:00 98.6 116 18 103/72 (82) 96 05/03/19 04:00 115 05/03/19 02:21 114 18 98 Nasal Cannula 4.0 36 111 18 94 05/03/19 00:00 119 05/03/19 00:00 98.4 115 20 95/65 (75) 98 05/02/19 23:23 116 18 98 Nasal Cannula 4.0 36 108 16 95 05/02/19 21:00 Nasal Cannula 4.0 Nasal Cannula 4.0 05/02/19 20:00 118 05/02/19 20:00 97.7 126 20 146/88 (107) 93 05/02/19 19:49 94 Nasal Cannula 4.0 36 05/02/19 19:48 112 18 98 Nasal Cannula 4.0 36 122 20 94 05/02/19 17:13 83 05/02/19 16:05 115 05/02/19 16:00 97.7 118 20 103/68 (80) 97 2/29/20 16:00 2.0 05/02/19 16:00 Nasal Cannula 2.0 Nasal Cannula 2.0 05/02/19 14:36 114 20 99 Nasal Cannula 4.0 36 118 22 95 05/02/19 12:00 98.2 111 18 99/58 (72) 98 05/02/19 12:00 Nasal Cannula 2.0 Nasal Cannula 2.0 05/02/19 12:00 2.0 05/02/19 11:47 116 05/02/19 10:29 118 18 98 Nasal Cannula 4.0 36 112 20 94 Intake and Output 05/02/19 05/03/19 19:00 07:00 Intake Total 720 ml Output Total 600 ml 300 ml Balance 120 ml -300 ml Intake Oral 720 ml Output Urine Total 600 ml 300 ml # Voids 1 # Bowel Movements 4 1 Laboratory Tests 05/03/19 07:50: White Blood Count 5.2, Red Blood Count 2.91L, Hemoglobin 8.3L, Hematocrit 25.1L , Mean Corpuscular Volume 86, Mean Corpuscular Hemoglobin 28.4, Mean Corpuscular Hemoglobin Concent 33.0, Red Cell Distribution Width 14.7, Platelet Count 256, Mean Platelet Volume 4.7L, Neutrophils (%) (Auto) 63.2, Lymphocytes ( %) (Auto) 15.2L, Monocytes (%) (Auto) 9.6, Eosinophils (%) (Auto) 10.4H, Basophils (%) (Auto) 1.5, Sodium Level [Pending], Potassium Level [Pending], Chloride Level [Pending], Carbon Dioxide Level [Pending], Blood Urea Nitrogen [ Pending], Creatinine [Pending], Estimat Glomerular Filtration Rate [Pending], Glucose Level [Pending], Calcium Level [Pending] Height (Feet): 5 Height (Inches): 7.00 Weight (Pounds): 142 General Appearance: lethargic EENT: normal ENT inspection Neck: normal alignment Cardiovascular: normal peripheral pulses, normal rate, regular rhythm Respiratory/Chest: chest wall non-tender, decreased breath sounds Abdomen: normal bowel sounds, non tender, soft Extremities: normal inspection Edema: no edema noted Arm (L), no edema noted Arm (R), no edema noted Leg (L), no edema noted Leg (R), no edema noted Pedal (L), no edema noted Pedal (R), no edema noted Generalized Neurologic: motor weakness Skin: normal pigmentation, warm/dry Sawyer Toussaint May 03, 2019 08:55
--- NOTE | 2019-05-03 09:09 | Urology Progress Note ---
Assessment/Plan Status: stable, progressing Assessment/Plan: 1. 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 2. Urinary retention. 3. Acute kidney injury, labile. 4. Hydronephrosis, likely chronic. 5. Proteinuria. 6. UTI and colonization. 7. Hematuria. monitor clinically maintain guerra, last replaced 2/ hand irrigated and do PRN position is satisfactory monitor renal fxn, labile likely obst of bilateral distal ureters secondary to advanced prostate ca will need to see how aggressive pt and family want to be renal fxn improved with the new guerra consider ureteral stents or nephrostomies? flomax added abx as ordered may need to hold lovenox voiding trial at some point? d/w nursing staff family members want to take pt to [facility] Subjective Allergies: Coded Allergies: No Known Allergies (Unverified , 04/03/19) Subjective all noted, dc planning noted Objective Last 24 Hour Vital Signs Date Time Temp Pulse Resp B/P (MAP) Pulse Ox O2 Delivery O2 Flow Rate FiO2 05/03/19 06:08 117 18 99 Nasal Cannula 4.0 36 115 18 94 05/03/19 06:07 94 Nasal Cannula 4.0 36 05/03/19 04:00 98.6 116 18 103/72 (82) 96 05/03/19 04:00 115 05/03/19 02:21 114 18 98 Nasal Cannula 4.0 36 111 18 94 05/03/19 00:00 119 05/03/19 00:00 98.4 115 20 95/65 (75) 98 05/02/19 23:23 116 18 98 Nasal Cannula 4.0 36 108 16 95 05/02/19 21:00 Nasal Cannula 4.0 Nasal Cannula 4.0 05/02/19 20:00 118 05/02/19 20:00 97.7 126 20 146/88 (107) 93 05/02/19 19:49 94 Nasal Cannula 4.0 36 05/02/19 19:48 112 18 98 Nasal Cannula 4.0 36 122 20 94 05/02/19 17:13 83 05/02/19 16:05 115 05/02/19 16:00 97.7 118 20 103/68 (80) 97 05/02/19 16:00 2.0 05/02/19 16:00 Nasal Cannula 2.0 Nasal Cannula 2.0 05/02/19 14:36 114 20 99 Nasal Cannula 4.0 36 118 22 95 05/02/19 12:00 98.2 111 18 99/58 (72) 98 05/02/19 12:00 Nasal Cannula 2.0 Nasal Cannula 2.0 05/02/19 12:00 2.0 05/02/19 11:47 116 05/02/19 10:29 118 18 98 Nasal Cannula 4.0 36 112 20 94 Intake and Output 05/02/19 05/03/19 19:00 07:00 Intake Total 720 ml Output Total 600 ml 300 ml Balance 120 ml -300 ml Intake Oral 720 ml Output Urine Total 600 ml 300 ml # Voids 1 # Bowel Movements 4 1 Microbiology Date/Time Source Procedure Growth Status 04/14/19 12:45 Blood Blood Culture - Final NO GROWTH AFTER 5 DAYS Complete 04/15/19 21:40 Sputum Gram Stain - Final Complete 04/15/19 21:40 Sputum Sputum Culture - Final NORMAL UPPER RESPIRATORY DAVID PRESENT Complete 04/18/19 17:00 Stool Clostridium difficile Toxin Assay - Final Complete 04/14/19 11:25 Urine,Random Urine Culture - Final NO GROWTH AFTER 48 HOURS Complete Current Medications Medications (Trade) Dose Ordered Sig/La Nena Route PRN Reason Start Time Stop Time Status Last Admin Dose Admin Acetaminophen (Tylenol) 650 mg Q6H PRN ORAL Mild Pain/Temp > 100.5 04/29/19 06:37 05/24/19 06:36 05/02/19 20:16 Acetylcysteine (Mucomyst) 200 mg Q4HRT HHN 04/29/19 07:00 05/18/19 10:59 05/03/19 06:07 Albuterol/ Ipratropium (Albuterol/ Ipratropium) 3 ml Q4H PRN HHN Shortness of Breath 05/03/19 07:00 05/08/19 06:59 Albuterol/ Ipratropium (Albuterol/ Ipratropium) 3 ml Q4HRT HHN 04/29/19 07:00 05/03/19 22:59 05/03/19 06:07 Ascorbic Acid (Vitamin C) 250 mg DAILY ORAL 05/01/19 09:00 05/31/19 08:59 05/03/19 08:54 Dronabinol (Marinol) 2.5 mg TID ORAL 05/01/19 13:00 05/31/19 12:59 05/03/19 08:54 Enoxaparin Sodium (Lovenox) 40 mg DAILY SUBQ 04/29/19 09:00 05/25/19 08:59 05/03/19 08:55 Hydralazine HCl (Apresoline) 10 mg Q4H PRN IV SBP > 170mmHg 04/29/19 06:38 05/08/19 06:37 Lansoprazole (Prevacid) 30 mg DAILY ORAL 04/29/19 09:00 05/13/19 08:59 05/03/19 08:54 Memantine (Namenda) 5 mg BID ORAL 04/29/19 09:00 05/04/19 17:59 05/03/19 08:54 Multivitamins (Multivitamins) 1 tab DAILY ORAL 05/01/19 09:00 05/31/19 08:59 05/03/19 08:54 Tamsulosin HCl (Flomax) 0.4 mg BEDTIME ORAL 04/29/19 21:00 05/13/19 20:59 05/02/19 20:16 Tramadol HCl (Ultram) 50 mg Q8H PRN NG Moderate Pain (Pain Scale 4-6) 04/29/19 06:36 05/04/19 06:35 05/03/19 04:49 Laboratory Tests 05/03/19 07:50: White Blood Count 5.2, Red Blood Count 2.91L, Hemoglobin 8.3L, Hematocrit 25.1L , Mean Corpuscular Volume 86, Mean Corpuscular Hemoglobin 28.4, Mean Corpuscular Hemoglobin Concent 33.0, Red Cell Distribution Width 14.7, Platelet Count 256, Mean Platelet Volume 4.7L, Neutrophils (%) (Auto) 63.2, Lymphocytes ( %) (Auto) 15.2L, Monocytes (%) (Auto) 9.6, Eosinophils (%) (Auto) 10.4H, Basophils (%) (Auto) 1.5, Sodium Level 149H, Potassium Level 4.3, Chloride Level 107, Carbon Dioxide Level 39H, Anion Gap 3L, Blood Urea Nitrogen 33H, Creatinine 2.1H, Estimat Glomerular Filtration Rate 37.8, Glucose Level 96, Calcium Level 9.2 Height (Feet): 5 Height (Inches): 7.00 Weight (Pounds): 142 Objective exam stable guerra indwelling, yellow/allegra urine CT A/P (04/10) noted Raz Root MD May 03, 2019 09:09
--- NOTE | 2019-05-03 11:12 | Diagnostic Imaging Report ---
EXAM: XR Chest, 1 View CLINICAL HISTORY: SOB TECHNIQUE: Frontal view of the chest. COMPARISON: Chest x-ray 04/26/19 FINDINGS: Lungs: Bilateral patchy airspace opacities, improved in the left lung and worsened in the right perihilar region. Pleural space: Small left pleural effusion and tiny right pleural effusion are slightly improved. No pneumothorax. Heart: Unremarkable. No cardiomegaly. Mediastinum: Unremarkable. Bones/joints: Unremarkable. IMPRESSION: 1. Bilateral patchy airspace opacities, improved in the left lung and worsened in the right perihilar region. 2. Small left pleural effusion and tiny right pleural effusion are slightly improved.
[2019-05-03 12:00] VITALS: BP 96/66
--- NOTE | 2019-05-03 12:36 | Cardiac Electrophysiology PN ---
Assessment/Plan Assessment/Plan 1. Status post 2 separate non infarctional juan antonio arrest with asystole. Both episodes happened in the setting of respiratory failure and off the Vent No evidence of ventricular tachycardia or ventricular fibrillation. Off any GARCÍA or AVN olivia EF 65%. All 3 troponins were less than 0.1. Watch for recurrence of bradycardia Family refusing any procedures 2. Recurrent Respiratory failure, extubated 04/08/19, reintubated 04/13/19 and reextubated 04/19/19 Back on 4 liter NC 3. History of stage III prostate cancer, followed by Dr. Monroy and Dr Root. Morales was changed. Usually follows up at [facility] 4. S/P Shock. Off Levophed 5. Hypercalcemia due to prostate cancer. 6. Hypernatremia. 7. Anemia, s/p multiple PRBCs 8. Low K. Replace 9. Dysphagia, family refused PEG by Dr. Lamb On Puree diet but not getting enough calories 10. Pleural effusion, off Lasix drip. Family refused thoracentesis MIKE RN Subjective Subjective No bradycardia recurrence. DC home pending Oxygen delivery. Was SOB last night and now on 4 liter NC [facility] declined him and family refusing thoracentesis or PEG Objective Last 24 Hour Vital Signs Date Time Temp Pulse Resp B/P (MAP) Pulse Ox O2 Delivery O2 Flow Rate FiO2 05/03/19 12:00 97.6 117 18 96/66 (76) 100 05/03/19 09:00 Nasal Cannula 4.0 Nasal Cannula 4.0 05/03/19 08:00 98.0 116 18 100/67 (78) 98 05/03/19 08:00 114 05/03/19 06:08 117 18 99 Nasal Cannula 4.0 36 115 18 94 05/03/19 06:07 94 Nasal Cannula 4.0 36 05/03/19 04:00 98.6 116 18 103/72 (82) 96 05/03/19 04:00 115 05/03/19 02:21 114 18 98 Nasal Cannula 4.0 36 111 18 94 05/03/19 00:00 119 05/03/19 00:00 98.4 115 20 95/65 (75) 98 05/02/19 23:23 116 18 98 Nasal Cannula 4.0 36 108 16 95 05/02/19 21:00 Nasal Cannula 4.0 Nasal Cannula 4.0 05/02/19 20:00 118 05/02/19 20:00 97.7 126 20 146/88 (107) 93 05/02/19 19:49 94 Nasal Cannula 4.0 36 05/02/19 19:48 112 18 98 Nasal Cannula 4.0 36 122 20 94 05/02/19 17:13 83 05/02/19 16:05 115 05/02/19 16:00 97.7 118 20 103/68 (80) 97 05/02/19 16:00 2.0 05/02/19 16:00 Nasal Cannula 2.0 Nasal Cannula 2.0 05/02/19 14:36 114 20 99 Nasal Cannula 4.0 36 118 22 95 Intake and Output 05/02/19 05/03/19 19:00 07:00 Intake Total 720 ml Output Total 600 ml 300 ml Balance 120 ml -300 ml Intake Oral 720 ml Output Urine Total 600 ml 300 ml # Voids 1 # Bowel Movements 4 1 Laboratory Tests Test 05/03/19 07:50 White Blood Count 5.2 K/UL (4.8-10.8) Red Blood Count 2.91 M/UL (4.70-6.10) L Hemoglobin 8.3 G/DL (14.2-18.0) L Hematocrit 25.1 % (42.0-52.0) L Mean Corpuscular Volume 86 FL (80-99) Mean Corpuscular Hemoglobin 28.4 PG (27.0-31.0) Mean Corpuscular Hemoglobin Concent 33.0 G/DL (32.0-36.0) Red Cell Distribution Width 14.7 % (11.6-14.8) Platelet Count 256 K/UL (150-450) Mean Platelet Volume 4.7 FL (6.5-10.1) L Neutrophils (%) (Auto) 63.2 % (45.0-75.0) Lymphocytes (%) (Auto) 15.2 % (20.0-45.0) L Monocytes (%) (Auto) 9.6 % (1.0-10.0) Eosinophils (%) (Auto) 10.4 % (0.0-3.0) H Basophils (%) (Auto) 1.5 % (0.0-2.0) Sodium Level 149 MMOL/L (136-145) H Potassium Level 4.3 MMOL/L (3.5-5.1) Chloride Level 107 MMOL/L (98-107) Carbon Dioxide Level 39 MMOL/L (21-32) H Anion Gap 3 mmol/L (5-15) L Blood Urea Nitrogen 33 mg/dL (7-18) H Creatinine 2.1 MG/DL (0.55-1.30) H Estimat Glomerular Filtration Rate 37.8 mL/min (>60) Glucose Level 96 MG/DL (74-106) Calcium Level 9.2 MG/DL (8.5-10.1) Objective HEENT: No JVD. LUNGS: Coarse rhonchi. CARDIOVASCULAR: Regular S1 and S2 ABDOMEN: Soft and nondistended. EXTREMITIES: No pitting edema. Nain Cortez MD May 03, 2019 12:36
--- NOTE | 2019-05-03 14:48 | Nephrology Progress Note ---
Assessment/Plan Status: stable, progressing Assessment/Plan: A/P 1. CKD 3B- Cr stable 1.6-1.8 IVFs started as Cr up to 2.1 and Na 149 2. Prostate cancer with elevated PSA- Oncology to manage 3. Hypokalemia- corrected. Replace prn 5. Hypercalcemia of malignancy- s/p pamidronate x 1 and calcitonin. 6. Resp FL- resolved Subjective Date patient seen: May 03, 2019 Time patient seen: 14:47 ROS Limited/Unobtainable: No Allergies: Coded Allergies: No Known Allergies (Unverified , 04/03/19) Subjective Patient awaiting DC to SNF Objective Last 24 Hour Vital Signs Date Time Temp Pulse Resp B/P (MAP) Pulse Ox O2 Delivery O2 Flow Rate FiO2 05/03/19 12:02 102 18 99 Nasal Cannula 4.0 36 107 18 94 05/03/19 12:00 97.6 117 18 96/66 (76) 100 05/03/19 12:00 116 05/03/19 09:00 Nasal Cannula 4.0 Nasal Cannula 4.0 05/03/19 08:00 98.0 116 18 100/67 (78) 98 05/03/19 08:00 114 05/03/19 06:08 117 18 99 Nasal Cannula 4.0 36 115 18 94 05/03/19 06:07 94 Nasal Cannula 4.0 36 05/03/19 04:00 98.6 116 18 103/72 (82) 96 05/03/19 04:00 115 05/03/19 02:21 114 18 98 Nasal Cannula 4.0 36 111 18 94 05/03/19 00:00 119 05/03/19 00:00 98.4 115 20 95/65 (75) 98 05/02/19 23:23 116 18 98 Nasal Cannula 4.0 36 108 16 95 05/02/19 21:00 Nasal Cannula 4.0 Nasal Cannula 4.0 05/02/19 20:00 118 05/02/19 20:00 97.7 126 20 146/88 (107) 93 05/02/19 19:49 94 Nasal Cannula 4.0 36 05/02/19 19:48 112 18 98 Nasal Cannula 4.0 36 122 20 94 05/02/19 17:13 83 05/02/19 16:05 115 05/02/19 16:00 97.7 118 20 103/68 (80) 97 05/02/19 16:00 2.0 05/02/19 16:00 Nasal Cannula 2.0 Nasal Cannula 2.0 Intake and Output 05/02/19 05/03/19 19:00 07:00 Intake Total 720 ml Output Total 600 ml 300 ml Balance 120 ml -300 ml Intake Oral 720 ml Output Urine Total 600 ml 300 ml # Voids 1 # Bowel Movements 4 1 Laboratory Tests 05/03/19 07:50: White Blood Count 5.2, Red Blood Count 2.91L, Hemoglobin 8.3L, Hematocrit 25.1L , Mean Corpuscular Volume 86, Mean Corpuscular Hemoglobin 28.4, Mean Corpuscular Hemoglobin Concent 33.0, Red Cell Distribution Width 14.7, Platelet Count 256, Mean Platelet Volume 4.7L, Neutrophils (%) (Auto) 63.2, Lymphocytes ( %) (Auto) 15.2L, Monocytes (%) (Auto) 9.6, Eosinophils (%) (Auto) 10.4H, Basophils (%) (Auto) 1.5, Sodium Level 149H, Potassium Level 4.3, Chloride Level 107, Carbon Dioxide Level 39H, Anion Gap 3L, Blood Urea Nitrogen 33H, Creatinine 2.1H, Estimat Glomerular Filtration Rate 37.8, Glucose Level 96, Calcium Level 9.2 Height (Feet): 5 Height (Inches): 7.00 Weight (Pounds): 143 General Appearance: no apparent distress EENT: normal ENT inspection Neck: normal alignment Cardiovascular: normal rate Respiratory/Chest: rhonchi - bilaterally Abdomen: non tender, soft Edema: no edema noted Arm (L), no edema noted Arm (R), no edema noted Leg (L), no edema noted Leg (R), no edema noted Pedal (L), no edema noted Pedal (R), no edema noted Generalized Carlos White MD May 03, 2019 14:48
--- NOTE | 2019-05-03 15:15 | Progress Note ---
DATE: 05/03/2019 SUBJECTIVE: This is a 73-year-old male patient. He is very confused, disorganized. He has altered mental status, decline in cognition below his baseline and he has generalized weakness. He has altered mental status as well. Because his cognition has declined below his baseline, his attending has requested daily psychiatric consultation for this patient. MENTAL STATUS EXAMINATION: This is a 73-year-old male. Appearance is disheveled. Attitude, irritable and agitated. Affect, guarded and restricted. Intellect, poor. Mood, depressed and anxious. Motor activity, psychomotor agitation. Insight and judgment is poor. DIAGNOSIS: Major depressive disorder, mild, recurrent with psychotic features. PLAN: Treat him with Namenda 5 mg twice a day to prevent any further decline in his cognition. Chart reviewed. Discussed with staff. Seen and assessed at bedside. Cherise Palma M.D. DR: FREDIS JOB#: [id number] CC:
[2019-05-03 16:00] VITALS: BP 109/74
--- NOTE | 2019-05-03 19:29 | NUR ---
HAND-OFF: Report given to BLANCA Maharaj. Endorsed plan of care.
--- NOTE | 2019-05-03 19:35 | NUR ---
NURSE NOTES: Received patient from BLANCA Fitzpatrick. Patient in bed, awaiting his breathing treatment. There are no signs of distress or pain noted at the time. There was no IV access at the time, but we were able to start an IV on his left hand, 22 gauge. Morales catheter draining. Low air loss mattress applied for wound management.Bed in the lowest position, brakes on, side rails x3, Call light within reach. Will continue plan of care.
[2019-05-03 20:00] VITALS: BP 107/76
[2019-05-03] MEDS: Tamsulosin 0.4mg cap ORAL SCH (20:27)
[2019-05-03] MEDS: Albuterol/Ipratropium 3ml neb HHN PRN (22:17)
[2019-05-04] VITALS: BP 107/72
[2019-05-04] MEDS: traMADol 50mg tab NG PRN (02:34)
[2019-05-04] MEDS: Albuterol/Ipratropium 3ml neb HHN PRN ×3 (03:27→13:22)
[2019-05-04] MEDS: Acetylcysteine 20% Soln 4ml HHN SCH ×4 (03:27→15:06)
[2019-05-04 04:00] VITALS: BP 110/74
--- NOTE | 2019-05-04 06:23 | Hematology/Onc Progress Note ---
Assessment/Plan Assessment/Plan # Prostate cancer stage IV with psa >700, cr is worse, hydronephrosis noted, seen by renal, Dr. White. --> i did received records from [facility]. has regional lymphadenopathy, s/p transrectal biopsy with Gleasons 5+5 (2010) in all cores, apparently has had a 3 year course of androgen deprivation from 2011- 2014.also status post RADIATION to the prostate, then lost to followup. Following surviellance psa 0.45-->65, in 10/2016, and up to 127 in 12/2016, Ct scan showed recurrence of disease with lad but no bony mets, started on lupron 01/2017, psa fell yo 73-->46, has been sarted on zytiga + prednisone, and now psa progression on zytiga, he started xtandi in 01/2019 Psa 87. He did not go through urethral stenting, he has deferred treatment with chemo. --> He is a very poor historian, I have talked to the sister --> imaging has been noted --> as per urology recs, reviewed --> poor prognosis given above history of treatment, defer transfer to [facility] --> psa 737-->757 --> CT ABD 04/10: Evidence of advanced metastatic neoplasm likely secondary to prostate carcinoma. Extensive retroperitoneal and pelvic lymphadenopathy complicated by presence of bilateral hydroureteronephrosis. Extensive metastatic disease involving the bones also noted. Status post seed implant radiation therapy to the prostate gland. --> family wants to transfer to [facility] # Hypercalcemia -- now acutely worse --> trend Ca++ 8.1-->13-->12-->10.3-->10.7-->13.2 -->11-->10.5-->9.2 --> ivf has been started --> as per nephrology --> calcitonin was given as was pamidronate # Anemia due to underlying malignancy --> hgb trend as needed 9.2-->7-->10.9-->11-->9.7-->8.1-->8.6-->9.2-->9.5 --> no hemolysis is noted --> no bleeding --> blood tx: 04/18, # Episode of generalized weakness --> on ivf --> pt as needed # Pleural effusion --> no consent for peg --> family refusing peg and thoracentesis # Hypokalemia --> replete prn # Dehydration --> on ivf # Atrophic changes without evident intracranial hemorrhage. --> as per neuro, remains confused # Respiratory failure s/p vent now ext --> on bipap++ # Hypernatremia as well as low BUN --> on ivf # Poor prognosis # Dvt ppx lovenox sq # DC planning [facility] or facility Appreciate consultation and dW Rn Subjective Constitutional: Denies: no symptoms, chills, fever, malaise, weakness, other HEENT: Denies: no symptoms, eye pain, blurred vision, tearing, double vision, ear pain, ear discharge, nose pain, nose congestion, throat pain, throat swelling, mouth pain, mouth swelling, other Cardiovascular: Denies: no symptoms, chest pain, edema, irregular heart rate, lightheadedness, palpitations, syncope, other Respiratory: Denies: no symptoms, cough, shortness of breath, SOB with excertion, SOB at rest, sputum, wheezing, other Genitourinary: Denies: no symptoms, burning, discharge, frequency, flank pain, hematuria, incontinence, pain, urgency, other Neurologic/Psychiatric: Denies: no symptoms, anxiety, depressed, emotional problems, headache, numbness, paresthesia, pre-existing deficit, seizure, tingling, tremors, weakness, other Endocrine: Denies: no symptoms, excessive sweating, flushing, intolerance to cold, intolerance to heat, increased hunger, increased thirst, increased urine, unexplained weight gain, unexplained weight loss, other Allergies: Coded Allergies: No Known Allergies (Unverified , 04/03/19) Subjective 2/3: no events, apparently intubated today and transferred to the icu, will dw family 04/07: remains in the icu, critically ill, Ca++ 12, on vent, minimally responsive , on dopa, dw pcp and pulm 04/08: no major changes, no night sweats, labs have been reviewed, dw daughter, he is more alert 04/10: awake, no acute events ct abd reviewed, stool ob negative 04/12: labs reviewed, nc, tachy, ceftriaxone, no sob 04/13: lethargic, nc 3l, no acute distress, labs reviewed 04/14: Ca++ remains elev 13.2, De Amy aware, on calcitonin, on lovenox 04/15: no major changes, remains intubated, seen by cards, renal, pulm, dw Kellie, kcl ordered 04/16: tolerating meds well, no bleeding, on vent, is on simv mode, nicholas Pacheco Rn 04/17: icu, vent, h/h stable, no acute events, on cefepime 04/19: remains in icu and intubated, s/p blood, hgb 8.6, c diff negative 04/20: on bipap, hgb 8.6, no major changes, in icu, requires peg 04/21: urine is red tinged this am, of vent, with nc, no bleeding, labs noted 04/22: no major changes, no bleeding r chils, no consent for procedures 04/23: icu, failed to wean from bipap, h/h stable 04/24: no events, feeling better, dw uro, with guerra, labs noted, no bleeding 04/26: no bleeding, no f/c, no major changes, anemia panel noted 04/27: no major events, no bleeding, no fc, labs reviewed 04/28: in sdu, no longer on bipap, family refusing peg and thoracentesis 04/29: no major changes, labs reviewed, bipap overnight, then 2lnc during day 04/30: on tele, in st, low 100's, no sob, h/h stable 05/01: awake, bilat restraints, no acute distress, nc 05/30: no major changes, no hemolysis is seen, remains fatigued 05/03: no bleeding, no night sweats, for dc planning Objective Objective Current Medications Medications (Trade) Dose Ordered Sig/La Nena Route PRN Reason Start Time Stop Time Status Last Admin Dose Admin Acetaminophen (Tylenol) 650 mg Q6H PRN ORAL Mild Pain/Temp > 100.5 04/29/19 06:37 05/24/19 06:36 05/04/19 00:26 Acetylcysteine (Mucomyst) 200 mg Q4HRT HHN 04/29/19 07:00 05/18/19 10:59 05/04/19 03:27 Albuterol/ Ipratropium (Albuterol/ Ipratropium) 3 ml Q4H PRN HHN Shortness of Breath 05/03/19 07:00 05/08/19 06:59 05/04/19 03:27 Ascorbic Acid (Vitamin C) 250 mg DAILY ORAL 05/01/19 09:00 05/31/19 08:59 05/03/19 08:54 Dronabinol (Marinol) 2.5 mg TID ORAL 05/01/19 13:00 05/31/19 12:59 05/03/19 17:33 Enoxaparin Sodium (Lovenox) 40 mg DAILY SUBQ 04/29/19 09:00 05/25/19 08:59 05/03/19 08:55 Hydralazine HCl (Apresoline) 10 mg Q4H PRN IV SBP > 170mmHg 04/29/19 06:38 05/08/19 06:37 Lansoprazole (Prevacid) 30 mg DAILY ORAL 04/29/19 09:00 05/13/19 08:59 05/03/19 08:54 Memantine (Namenda) 5 mg BID ORAL 04/29/19 09:00 05/04/19 17:59 05/03/19 17:33 Multivitamins (Multivitamins) 1 tab DAILY ORAL 05/01/19 09:00 05/31/19 08:59 05/03/19 08:54 Sodium Chloride 1,000 ml @ 75 mls/hr [id number] IV 05/03/19 15:00 06/02/19 14:59 05/04/19 04:25 Tamsulosin HCl (Flomax) 0.4 mg BEDTIME ORAL 04/29/19 21:00 05/13/19 20:59 05/03/19 20:27 Tramadol HCl (Ultram) 50 mg Q8H PRN NG Moderate Pain (Pain Scale 4-6) 04/29/19 06:36 05/04/19 06:35 05/04/19 02:34 Last 24 Hour Vital Signs Date Time Temp Pulse Resp B/P (MAP) Pulse Ox O2 Delivery O2 Flow Rate FiO2 05/04/19 04:00 98.0 114 18 110/74 (86) 96 05/04/19 04:00 114 05/04/19 03:27 114 18 100 Nasal Cannula 4.0 36 116 22 96 05/04/19 00:00 118 05/04/19 00:00 97.7 117 18 107/72 (84) 94 05/03/19 22:18 115 18 100 Nasal Cannula 4.0 36 122 22 95 05/03/19 21:00 Nasal Cannula 4.0 Nasal Cannula 4.0 05/03/19 20:00 118 05/03/19 20:00 97.5 117 20 107/76 (86) 98 05/03/19 19:25 95 Nasal Cannula 4.0 36 05/03/19 19:25 120 19 100 Nasal Cannula 4.0 36 117 22 97 05/03/19 16:00 98.4 118 18 109/74 (86) 94 05/03/19 16:00 111 05/03/19 14:57 111 18 99 Nasal Cannula 4.0 36 107 18 94 05/03/19 12:02 102 18 99 Nasal Cannula 4.0 36 107 18 94 05/03/19 12:00 97.6 117 18 96/66 (76) 100 05/03/19 12:00 116 05/03/19 09:00 Nasal Cannula 4.0 Nasal Cannula 4.0 05/03/19 08:00 98.0 116 18 100/67 (78) 98 05/03/19 08:00 114 05/03/19 06:08 117 18 99 Nasal Cannula 4.0 36 115 18 94 05/03/19 06:07 94 Nasal Cannula 4.0 36 05/03/19 04:00 98.6 116 18 103/72 (82) 96 05/03/19 04:00 115 05/03/19 02:21 114 18 98 Nasal Cannula 4.0 36 111 18 94 05/03/19 00:00 119 05/03/19 00:00 98.4 115 20 95/65 (75) 98 05/02/19 23:23 116 18 98 Nasal Cannula 4.0 36 108 16 95 05/02/19 21:00 Nasal Cannula 4.0 Nasal Cannula 4.0 05/02/19 20:00 118 05/02/19 20:00 97.7 126 20 146/88 (107) 93 05/02/19 19:49 94 Nasal Cannula 4.0 36 05/02/19 19:48 112 18 98 Nasal Cannula 4.0 36 122 20 94 05/02/19 17:13 83 05/02/19 16:05 115 05/02/19 16:00 97.7 118 20 103/68 (80) 97 05/02/19 16:00 2.0 05/02/19 16:00 Nasal Cannula 2.0 Nasal Cannula 2.0 05/02/19 14:36 114 20 99 Nasal Cannula 4.0 36 118 22 95 05/02/19 12:00 98.2 111 18 99/58 (72) 98 05/02/19 12:00 Nasal Cannula 2.0 Nasal Cannula 2.0 05/02/19 12:00 2.0 05/02/19 11:47 116 05/02/19 10:29 118 18 98 Nasal Cannula 4.0 36 112 20 94 05/02/19 08:20 Nasal Cannula 2.0 Nasal Cannula 2.0 05/02/19 08:00 110 05/02/19 08:00 98.0 115 22 105/70 (82) 98 05/02/19 08:00 2.0 05/02/19 07:35 93 Nasal Cannula 4.0 36 05/02/19 07:35 116 20 97 Nasal Cannula 4.0 36 118 22 93 Intake and Output 05/03/19 05/04/19 19:00 07:00 Intake Total 480 ml 600 ml Output Total 300 ml 250 ml Balance 180 ml 350 ml Intake Oral 480 ml IV Total 600 ml Output Urine Total 300 ml 250 ml # Voids 1 # Bowel Movements 1 3 Labs Test 05/02/19 06:25 05/03/19 07:50 White Blood Count 5.5 K/UL (4.8-10.8) 5.2 K/UL (4.8-10.8) Red Blood Count 3.40 M/UL (4.70-6.10) 2.91 M/UL (4.70-6.10) Hemoglobin 9.5 G/DL (14.2-18.0) 8.3 G/DL (14.2-18.0) Hematocrit 29.2 % (42.0-52.0) 25.1 % (42.0-52.0) Mean Corpuscular Volume 86 FL (80-99) 86 FL (80-99) Mean Corpuscular Hemoglobin 28.1 PG (27.0-31.0) 28.4 PG (27.0-31.0) Mean Corpuscular Hemoglobin Concent 32.7 G/DL (32.0-36.0) 33.0 G/DL (32.0-36.0) Red Cell Distribution Width 14.7 % (11.6-14.8) 14.7 % (11.6-14.8) Platelet Count 268 K/UL (150-450) 256 K/UL (150-450) Mean Platelet Volume 4.3 FL (6.5-10.1) 4.7 FL (6.5-10.1) Neutrophils (%) (Auto) 61.4 % (45.0-75.0) 63.2 % (45.0-75.0) Lymphocytes (%) (Auto) 20.5 % (20.0-45.0) 15.2 % (20.0-45.0) Monocytes (%) (Auto) 7.3 % (1.0-10.0) 9.6 % (1.0-10.0) Eosinophils (%) (Auto) 9.9 % (0.0-3.0) 10.4 % (0.0-3.0) Basophils (%) (Auto) 1.0 % (0.0-2.0) 1.5 % (0.0-2.0) Sodium Level 148 MMOL/L (136-145) 149 MMOL/L (136-145) Potassium Level 3.8 MMOL/L (3.5-5.1) 4.3 MMOL/L (3.5-5.1) Chloride Level 106 MMOL/L (98-107) 107 MMOL/L (98-107) Carbon Dioxide Level 39 MMOL/L (21-32) 39 MMOL/L (21-32) Anion Gap 3 mmol/L (5-15) 3 mmol/L (5-15) Blood Urea Nitrogen 28 mg/dL (7-18) 33 mg/dL (7-18) Creatinine 2.0 MG/DL (0.55-1.30) 2.1 MG/DL (0.55-1.30) Estimat Glomerular Filtration Rate 40.0 mL/min (>60) 37.8 mL/min (>60) Glucose Level 93 MG/DL (74-106) 96 MG/DL (74-106) Calcium Level 9.5 MG/DL (8.5-10.1) 9.2 MG/DL (8.5-10.1) Height (Feet): 5 Height (Inches): 7.00 Weight (Pounds): 143 Objective General: normal inspection, alert, Chronically Ill Respiratory: dry breath sounds b/l, nc+ Cardiovascular: regular rate, rhythm, no edema Gastrointestinal: normal inspection, normal bowel sounds Genitourinary: no CVA tenderness Mus: normal inspection, back normal, normal range of motion Neurologic: alert, motor strength/tone normal, oriented + confused Psychiatric: normal inspection, judgement/insight normal Skin: no rash Andreas Monroy MD May 04, 2019 06:23
--- NOTE | 2019-05-04 06:38 | NUR ---
NURSE NOTES: Called Dr. Root to notify him that patient only had 250 mls of urine output throughout the shift and that Morales was difficult to irrigate. No new orders received at this time.
--- NOTE | 2019-05-04 06:58 | NUR ---
HAND-OFF: Report given to BLANCA Fitzpatrick. Patient in bed asleep. No signs of distress or pain noted at this time.
--- NOTE | 2019-05-04 07:50 | Urology Progress Note ---
Assessment/Plan Status: stable, progressing Assessment/Plan: 1. 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 2. Urinary retention. 3. Acute kidney injury, labile. 4. Hydronephrosis, likely chronic. 5. Proteinuria. 6. UTI and colonization. 7. Hematuria. monitor clinically maintain guerra, last replaced 2/ hand irrigated and do PRN pt has low bladder capacity, cant fill much volume and has spasms guerra position is satisfactory monitor renal fxn and urine output, labile likely obst of bilateral distal ureters secondary to advanced prostate ca will need to see how aggressive pt and family want to be renal fxn improved with the new guerra consider ureteral stents or nephrostomies? flomax added abx as ordered may need to hold lovenox voiding trial at some point? d/w nursing staff family members want to take pt to [facility] Subjective Allergies: Coded Allergies: No Known Allergies (Unverified , 04/03/19) Subjective all noted, dc planning nurses called me this morning low urine output overnight some difficulty with irrigating guerra Objective Last 24 Hour Vital Signs Date Time Temp Pulse Resp B/P (MAP) Pulse Ox O2 Delivery O2 Flow Rate FiO2 05/04/19 07:33 118 22 100 Nasal Cannula 4.0 36 113 20 97 05/04/19 07:33 97 Nasal Cannula 4.0 36 05/04/19 04:00 98.0 114 18 110/74 (86) 96 05/04/19 04:00 114 05/04/19 03:27 114 18 100 Nasal Cannula 4.0 36 116 22 96 05/04/19 00:00 118 05/04/19 00:00 97.7 117 18 107/72 (84) 94 05/03/19 22:18 115 18 100 Nasal Cannula 4.0 36 122 22 95 05/03/19 21:00 Nasal Cannula 4.0 Nasal Cannula 4.0 05/03/19 20:00 118 05/03/19 20:00 97.5 117 20 107/76 (86) 98 05/03/19 19:25 95 Nasal Cannula 4.0 36 05/03/19 19:25 120 19 100 Nasal Cannula 4.0 36 117 22 97 05/03/19 16:00 98.4 118 18 109/74 (86) 94 05/03/19 16:00 111 05/03/19 14:57 111 18 99 Nasal Cannula 4.0 36 107 18 94 05/03/19 12:02 102 18 99 Nasal Cannula 4.0 36 107 18 94 05/03/19 12:00 97.6 117 18 96/66 (76) 100 05/03/19 12:00 116 05/03/19 09:00 Nasal Cannula 4.0 Nasal Cannula 4.0 05/03/19 08:00 98.0 116 18 100/67 (78) 98 05/03/19 08:00 114 Intake and Output 05/03/19 05/04/19 19:00 07:00 Intake Total 480 ml 794 ml Output Total 300 ml 250 ml Balance 180 ml 544 ml Intake Oral 480 ml IV Total 794 ml Output Urine Total 300 ml 250 ml # Voids 1 # Bowel Movements 1 3 Microbiology Date/Time Source Procedure Growth Status 04/14/19 12:45 Blood Blood Culture - Final NO GROWTH AFTER 5 DAYS Complete 04/15/19 21:40 Sputum Gram Stain - Final Complete 04/15/19 21:40 Sputum Sputum Culture - Final NORMAL UPPER RESPIRATORY DAVID PRESENT Complete 04/18/19 17:00 Stool Clostridium difficile Toxin Assay - Final Complete 04/14/19 11:25 Urine,Random Urine Culture - Final NO GROWTH AFTER 48 HOURS Complete Current Medications Medications (Trade) Dose Ordered Sig/La Nena Route PRN Reason Start Time Stop Time Status Last Admin Dose Admin Acetaminophen (Tylenol) 650 mg Q6H PRN ORAL Mild Pain/Temp > 100.5 04/29/19 06:37 05/24/19 06:36 05/04/19 00:26 Acetylcysteine (Mucomyst) 200 mg Q4HRT HHN 04/29/19 07:00 05/18/19 10:59 05/04/19 07:28 Albuterol/ Ipratropium (Albuterol/ Ipratropium) 3 ml Q4H PRN HHN Shortness of Breath 05/03/19 07:00 05/08/19 06:59 05/04/19 07:30 Ascorbic Acid (Vitamin C) 250 mg DAILY ORAL 05/01/19 09:00 05/31/19 08:59 05/03/19 08:54 Dronabinol (Marinol) 2.5 mg TID ORAL 05/01/19 13:00 05/31/19 12:59 3/1/20 17:33 Enoxaparin Sodium (Lovenox) 40 mg DAILY SUBQ 04/29/19 09:00 05/25/19 08:59 05/03/19 08:55 Hydralazine HCl (Apresoline) 10 mg Q4H PRN IV SBP > 170mmHg 04/29/19 06:38 05/08/19 06:37 Lansoprazole (Prevacid) 30 mg DAILY ORAL 04/29/19 09:00 05/13/19 08:59 05/03/19 08:54 Memantine (Namenda) 5 mg BID ORAL 04/29/19 09:00 05/04/19 17:59 05/03/19 17:33 Multivitamins (Multivitamins) 1 tab DAILY ORAL 05/01/19 09:00 05/31/19 08:59 05/03/19 08:54 Sodium Chloride 1,000 ml @ 75 mls/hr [id number] IV 05/03/19 15:00 06/02/19 14:59 05/04/19 04:25 Tamsulosin HCl (Flomax) 0.4 mg BEDTIME ORAL 04/29/19 21:00 05/13/19 20:59 05/03/19 20:27 Laboratory Tests 05/03/19 07:50: White Blood Count 5.2, Red Blood Count 2.91L, Hemoglobin 8.3L, Hematocrit 25.1L , Mean Corpuscular Volume 86, Mean Corpuscular Hemoglobin 28.4, Mean Corpuscular Hemoglobin Concent 33.0, Red Cell Distribution Width 14.7, Platelet Count 256, Mean Platelet Volume 4.7L, Neutrophils (%) (Auto) 63.2, Lymphocytes ( %) (Auto) 15.2L, Monocytes (%) (Auto) 9.6, Eosinophils (%) (Auto) 10.4H, Basophils (%) (Auto) 1.5, Sodium Level 149H, Potassium Level 4.3, Chloride Level 107, Carbon Dioxide Level 39H, Anion Gap 3L, Blood Urea Nitrogen 33H, Creatinine 2.1H, Estimat Glomerular Filtration Rate 37.8, Glucose Level 96, Calcium Level 9.2 05/04/19 06:10: White Blood Count [Pending], Red Blood Count [Pending], Hemoglobin [Pending], Hematocrit [Pending], Mean Corpuscular Volume [Pending], Mean Corpuscular Hemoglobin [Pending], Mean Corpuscular Hemoglobin Concent [Pending], Red Cell Distribution Width [Pending], Platelet Count [Pending], Mean Platelet Volume [ Pending], Neutrophils (%) (Auto) [Pending], Lymphocytes (%) (Auto) [Pending], Monocytes (%) (Auto) [Pending], Eosinophils (%) (Auto) [Pending], Basophils (%) (Auto) [Pending], Sodium Level [Pending], Potassium Level [Pending], Chloride Level [Pending], Carbon Dioxide Level [Pending], Blood Urea Nitrogen [Pending], Creatinine [Pending], Estimat Glomerular Filtration Rate [Pending], Glucose Level [Pending], Calcium Level [Pending] Height (Feet): 5 Height (Inches): 7.00 Weight (Pounds): 143 Objective exam stable guerra indwelling, yellow/allegra urine CT A/P (04/10) noted Raz Root MD May 04, 2019 07:49
--- NOTE | 2019-05-04 07:52 | NUR ---
NURSE NOTES: Received report from BLANCA Maharaj. Patient in bed resting, no active s/s cardiac, respiratory distress noticed at this time. Patient AOx2-3, on 4L oxygen via NC. IV on left 22G, asymptomatic, patent, intact. IVF running as prescribed rate,. Endorsed paged Dr. Root for decreased urine output. Per MD will see the patient, Morales Catheter draining, Bed in lowest position, side rails upx3, call light within reach, bed alarm on. Will continue to monitor.
[2019-05-04 07:53] LABS: BASOPHILS % (AUTO) 0.7 % (0.0-2.0); EOSINOPHILS % (AUTO) 11.3 % (0.0-3.0); HEMOGLOBIN 8.3 G/DL (14.2-18.0); LYMPHOCYTES % (AUTO) 19.7 % (20.0-45.0); MEAN CORPUSCULAR VOLUME 85 FL (80-99); MONOCYTES % (AUTO) 8.6 % (1.0-10.0); NEUTROPHILS % (AUTO) 59.8 % (45.0-75.0); PLATELET COUNT 246 K/UL (150-450); RED BLOOD COUNT 2.93 M/UL (4.70-6.10); RED CELL DISTRIBUTION WIDTH 14.8 % (11.6-14.8); WHITE BLOOD COUNT 4.9 K/UL (4.8-10.8)
[2019-05-04 08:00] VITALS: BP 94/67
--- NOTE | 2019-05-04 08:00 | NUR ---
NURSE NOTES: Dr. Root at the bedside, irrigate Morales Catheter. Per , Morales Catheter works fine.
[2019-05-04 08:12] LABS: ANION GAP 5 mmol/L (5-15); BLOOD UREA NITROGEN 32 mg/dL (7-18); CARBON DIOXIDE 36 MMOL/L (21-32); CHLORIDE 105 MMOL/L (98-107); CREATININE 2.3 MG/DL (0.55-1.30); POTASSIUM 4.3 MMOL/L (3.5-5.1); SODIUM 146 MMOL/L (136-145)
--- NOTE | 2019-05-04 08:40 | Nephrology Progress Note ---
Assessment/Plan Status: stable, progressing Assessment/Plan: A/P 1. LETA on CKD 3B- Cr stable 1.6-1.8. Now to 2.3 due to hypotensive episodes IVFs started . Monitor Cr 2. Prostate cancer with elevated PSA- Oncology to manage 3. Hypokalemia- corrected. Replace prn 5. Hypercalcemia of malignancy- s/p pamidronate x 1 and calcitonin. Subjective Date patient seen: May 04, 2019 ROS Limited/Unobtainable: No Allergies: Coded Allergies: No Known Allergies (Unverified , 04/03/19) Subjective Patient awaiting DC to SNF In no distress Objective Last 24 Hour Vital Signs Date Time Temp Pulse Resp B/P (MAP) Pulse Ox O2 Delivery O2 Flow Rate FiO2 05/04/19 07:33 118 22 100 Nasal Cannula 4.0 36 113 20 97 05/04/19 07:33 97 Nasal Cannula 4.0 36 05/04/19 04:00 98.0 114 18 110/74 (86) 96 05/04/19 04:00 114 05/04/19 03:27 114 18 100 Nasal Cannula 4.0 36 116 22 96 05/04/19 00:00 118 05/04/19 00:00 97.7 117 18 107/72 (84) 94 05/03/19 22:18 115 18 100 Nasal Cannula 4.0 36 122 22 95 05/03/19 21:00 Nasal Cannula 4.0 Nasal Cannula 4.0 05/03/19 20:00 118 05/03/19 20:00 97.5 117 20 107/76 (86) 98 05/03/19 19:25 95 Nasal Cannula 4.0 36 05/03/19 19:25 120 19 100 Nasal Cannula 4.0 36 117 22 97 05/03/19 16:00 98.4 118 18 109/74 (86) 94 05/03/19 16:00 111 05/03/19 14:57 111 18 99 Nasal Cannula 4.0 36 107 18 94 05/03/19 12:02 102 18 99 Nasal Cannula 4.0 36 107 18 94 05/03/19 12:00 97.6 117 18 96/66 (76) 100 05/03/19 12:00 116 05/03/19 09:00 Nasal Cannula 4.0 Nasal Cannula 4.0 Intake and Output 05/03/19 05/04/19 19:00 07:00 Intake Total 480 ml 794 ml Output Total 300 ml 250 ml Balance 180 ml 544 ml Intake Oral 480 ml IV Total 794 ml Output Urine Total 300 ml 250 ml # Voids 1 # Bowel Movements 1 3 Laboratory Tests 05/04/19 06:10: White Blood Count 4.9, Red Blood Count 2.93L, Hemoglobin 8.3L, Hematocrit 25.0L , Mean Corpuscular Volume 85, Mean Corpuscular Hemoglobin 28.3, Mean Corpuscular Hemoglobin Concent 33.1, Red Cell Distribution Width 14.8, Platelet Count 246, Mean Platelet Volume 4.3L, Neutrophils (%) (Auto) 59.8, Lymphocytes ( %) (Auto) 19.7L, Monocytes (%) (Auto) 8.6, Eosinophils (%) (Auto) 11.3H, Basophils (%) (Auto) 0.7, Sodium Level 146H, Potassium Level 4.3, Chloride Level 105, Carbon Dioxide Level 36H, Anion Gap 5, Blood Urea Nitrogen 32H, Creatinine 2.3H, Estimat Glomerular Filtration Rate 34.1, Glucose Level 83, Calcium Level 9.0 Height (Feet): 5 Height (Inches): 7.00 Weight (Pounds): 143 General Appearance: no apparent distress EENT: normal ENT inspection Neck: normal alignment, supple Cardiovascular: regular rhythm, regularly irregular Respiratory/Chest: rhonchi - bilaterally Abdomen: non tender, soft Edema: no edema noted Arm (L), no edema noted Arm (R), no edema noted Leg (L), no edema noted Leg (R), no edema noted Pedal (L), no edema noted Pedal (R), no edema noted Generalized Carlos White MD May 04, 2019 08:40
[2019-05-04] MEDS: Ascorbic Acid 500mg tab ORAL SCH (08:55)
[2019-05-04] MEDS: Enoxaparin 40mg Inj SUBQ SCH (08:56)
[2019-05-04] MEDS: Memantine 5 MG TAB ORAL SCH (08:56)
[2019-05-04] MEDS: Dronabinol 2.5mg Cap ORAL SCH (08:56)
--- NOTE | 2019-05-04 09:00 | NUR ---
NURSE NOTES: Pt during morning rounding was examined by nurse. Pt is dependent on oxygen on 4 liters nasal canula and saturates at 92%. When nasal canula is removed oxygen saturation drops to 86% and the patients starts to feel dizzy.
--- NOTE | 2019-05-04 09:10 | NUR ---
DISCHARGE PLANNING PATIENT HAS BEEN REFERRED TO [facility] [place] FOR HOME OXYGEN [facility] [place] T: [phone] F: [phone] [facility] AIDE TEACHER WILL FOLLOW UP PORTABLE OXYGEN TANK MUST BE DELIVERED TO BEDSIDE BEFORE PATIENT LEAVES THE HOSPITAL
--- NOTE | 2019-05-04 09:43 | NUR ---
NURSE NOTES: Dr. Mathews at the bedside, per okay to go home with 4L oxygen.
--- NOTE | 2019-05-04 09:55 | General Progress Note ---
Assessment/Plan Status: stable, progressing Assessment/Plan: Assessment/Plan Problems: (1) Coffee ground emesis (2) Anemia (3) metastatic prostate CA (4) respiratory failure extubated ppi patient on oral diet now with a feeder pulm recommended peg placement but family refused poor po intake increase marinol to 5 mg bid will fu Subjective ROS Limited/Unobtainable: No Allergies: Coded Allergies: No Known Allergies (Unverified , 04/03/19) Objective Last 24 Hour Vital Signs Date Time Temp Pulse Resp B/P (MAP) Pulse Ox O2 Delivery O2 Flow Rate FiO2 05/04/19 08:00 97.5 118 18 94/67 (76) 92 05/04/19 07:33 118 22 100 Nasal Cannula 4.0 36 113 20 97 05/04/19 07:33 97 Nasal Cannula 4.0 36 05/04/19 04:00 98.0 114 18 110/74 (86) 96 05/04/19 04:00 114 05/04/19 03:27 114 18 100 Nasal Cannula 4.0 36 116 22 96 05/04/19 00:00 118 05/04/19 00:00 97.7 117 18 107/72 (84) 94 05/03/19 22:18 115 18 100 Nasal Cannula 4.0 36 122 22 95 05/03/19 21:00 Nasal Cannula 4.0 Nasal Cannula 4.0 05/03/19 20:00 118 05/03/19 20:00 97.5 117 20 107/76 (86) 98 05/03/19 19:25 95 Nasal Cannula 4.0 36 05/03/19 19:25 120 19 100 Nasal Cannula 4.0 36 117 22 97 05/03/19 16:00 98.4 118 18 109/74 (86) 94 05/03/19 16:00 111 05/03/19 14:57 111 18 99 Nasal Cannula 4.0 36 107 18 94 05/03/19 12:02 102 18 99 Nasal Cannula 4.0 36 107 18 94 05/03/19 12:00 97.6 117 18 96/66 (76) 100 05/03/19 12:00 116 Intake and Output 05/03/19 05/04/19 19:00 07:00 Intake Total 480 ml 794 ml Output Total 300 ml 250 ml Balance 180 ml 544 ml Intake Oral 480 ml IV Total 794 ml Output Urine Total 300 ml 250 ml # Voids 1 # Bowel Movements 1 3 Laboratory Tests 05/04/19 06:10: White Blood Count 4.9, Red Blood Count 2.93L, Hemoglobin 8.3L, Hematocrit 25.0L , Mean Corpuscular Volume 85, Mean Corpuscular Hemoglobin 28.3, Mean Corpuscular Hemoglobin Concent 33.1, Red Cell Distribution Width 14.8, Platelet Count 246, Mean Platelet Volume 4.3L, Neutrophils (%) (Auto) 59.8, Lymphocytes ( %) (Auto) 19.7L, Monocytes (%) (Auto) 8.6, Eosinophils (%) (Auto) 11.3H, Basophils (%) (Auto) 0.7, Sodium Level 146H, Potassium Level 4.3, Chloride Level 105, Carbon Dioxide Level 36H, Anion Gap 5, Blood Urea Nitrogen 32H, Creatinine 2.3H, Estimat Glomerular Filtration Rate 34.1, Glucose Level 83, Calcium Level 9.0 Height (Feet): 5 Height (Inches): 7.00 Weight (Pounds): 144 General Appearance: lethargic EENT: normal ENT inspection Neck: supple Cardiovascular: normal rate Respiratory/Chest: decreased breath sounds Abdomen: normal bowel sounds, non tender, soft Extremities: non-tender Tyrone Lamb MD May 04, 2019 09:55
--- NOTE | 2019-05-04 09:59 | General Progress Note ---
Assessment/Plan Problem List: (1) UTI (urinary tract infection) ICD Codes: N39.0 - Urinary tract infection, site not specified SNOMED: 63172107 (2) Weak ICD Codes: R53.1 - Weakness SNOMED: 56339243 (3) Anemia ICD Codes: D64.9 - Anemia, unspecified SNOMED: 594974536 (4) Dehydration ICD Codes: E86.0 - Dehydration SNOMED: 50326038, 44997253 (5) Episode of generalized weakness ICD Codes: R53.1 - Weakness SNOMED: 18649763 (6) Stage III adenocarcinoma of prostate ICD Codes: C61 - Malignant neoplasm of prostate SNOMED: 722314164, 79133642 Status: stable, progressing Assessment/Plan: o2 pulm tx pt diet abx iv fluid heme gi eval cbc bmp am dc w hh if clear Subjective Constitutional: Reports: weakness Allergies: Coded Allergies: No Known Allergies (Unverified , 04/03/19) All Systems: reviewed and negative except above Subjective o2nc sleepy Objective Last 24 Hour Vital Signs Date Time Temp Pulse Resp B/P (MAP) Pulse Ox O2 Delivery O2 Flow Rate FiO2 05/04/19 08:00 97.5 118 18 94/67 (76) 92 05/04/19 07:33 118 22 100 Nasal Cannula 4.0 36 113 20 97 05/04/19 07:33 97 Nasal Cannula 4.0 36 05/04/19 04:00 98.0 114 18 110/74 (86) 96 05/04/19 04:00 114 05/04/19 03:27 114 18 100 Nasal Cannula 4.0 36 116 22 96 05/04/19 00:00 118 05/04/19 00:00 97.7 117 18 107/72 (84) 94 05/03/19 22:18 115 18 100 Nasal Cannula 4.0 36 122 22 95 05/03/19 21:00 Nasal Cannula 4.0 Nasal Cannula 4.0 05/03/19 20:00 118 05/03/19 20:00 97.5 117 20 107/76 (86) 98 05/03/19 19:25 95 Nasal Cannula 4.0 36 05/03/19 19:25 120 19 100 Nasal Cannula 4.0 36 117 22 97 05/03/19 16:00 98.4 118 18 109/74 (86) 94 05/03/19 16:00 111 05/03/19 14:57 111 18 99 Nasal Cannula 4.0 36 107 18 94 05/03/19 12:02 102 18 99 Nasal Cannula 4.0 36 107 18 94 05/03/19 12:00 97.6 117 18 96/66 (76) 100 05/03/19 12:00 116 Intake and Output 05/03/19 05/04/19 19:00 07:00 Intake Total 480 ml 794 ml Output Total 300 ml 250 ml Balance 180 ml 544 ml Intake Oral 480 ml IV Total 794 ml Output Urine Total 300 ml 250 ml # Voids 1 # Bowel Movements 1 3 Laboratory Tests 05/04/19 06:10: White Blood Count 4.9, Red Blood Count 2.93L, Hemoglobin 8.3L, Hematocrit 25.0L , Mean Corpuscular Volume 85, Mean Corpuscular Hemoglobin 28.3, Mean Corpuscular Hemoglobin Concent 33.1, Red Cell Distribution Width 14.8, Platelet Count 246, Mean Platelet Volume 4.3L, Neutrophils (%) (Auto) 59.8, Lymphocytes ( %) (Auto) 19.7L, Monocytes (%) (Auto) 8.6, Eosinophils (%) (Auto) 11.3H, Basophils (%) (Auto) 0.7, Sodium Level 146H, Potassium Level 4.3, Chloride Level 105, Carbon Dioxide Level 36H, Anion Gap 5, Blood Urea Nitrogen 32H, Creatinine 2.3H, Estimat Glomerular Filtration Rate 34.1, Glucose Level 83, Calcium Level 9.0 Height (Feet): 5 Height (Inches): 7.00 Weight (Pounds): 144 General Appearance: lethargic EENT: normal ENT inspection Neck: normal alignment Cardiovascular: normal peripheral pulses, normal rate, regular rhythm Respiratory/Chest: chest wall non-tender, decreased breath sounds Abdomen: normal bowel sounds, non tender, soft Extremities: normal inspection Edema: no edema noted Arm (L), no edema noted Arm (R), no edema noted Leg (L), no edema noted Leg (R), no edema noted Pedal (L), no edema noted Pedal (R), no edema noted Generalized Neurologic: motor weakness Skin: normal pigmentation, warm/dry Sawyer Toussaint DO May 04, 2019 09:59
--- NOTE | 2019-05-04 10:10 | NUR ---
NURSE NOTES: Called Oxygen company [phone] made aware patient will be discharged today, need home oxygen.
--- NOTE | 2019-05-04 10:11 | Pulmonology Progress Note ---
Assessment/Plan Assessment/Plan IMPRESSION: 1. Status post asystolic cardiac arrest. Again on 04/13/19 2. Respiratory failure, re-intubated; and extubated 04/20/19 3. Altered mental status. Resolved 4. Hypernatremia. Corrected. 5. Hypokalemia . Corrected. 6. History of COPD. 7. Prostate CA. DISCUSSION: 1. Off BiPAP 2. Needs PEG 3. Doing well post extubation 5. Off diuretics 6. Transfused CXR looking better; Will repeat today (05.03.19) Needs PEG; would not advise PO diet again family refused PEG No longer on BiPAP has large left pleural effusion, family refuses thoracentesis. DC BiPAP DC to [facility] at family request Alternately, dc home with Ganesh Mathews M.D. Subjective Interval Events: None new Constitutional: Reports: no symptoms HEENT: Repors: no symptoms Respiratory: Reports: no symptoms Cardiovascular: Reports: no symptoms Allergies: Coded Allergies: No Known Allergies (Unverified , 04/03/19) Objective Last 24 Hour Vital Signs Date Time Temp Pulse Resp B/P (MAP) Pulse Ox O2 Delivery O2 Flow Rate FiO2 05/04/19 08:00 97.5 118 18 94/67 (76) 92 05/04/19 07:33 118 22 100 Nasal Cannula 4.0 36 113 20 97 05/04/19 07:33 97 Nasal Cannula 4.0 36 05/04/19 04:00 98.0 114 18 110/74 (86) 96 05/04/19 04:00 114 05/04/19 03:27 114 18 100 Nasal Cannula 4.0 36 116 22 96 05/04/19 00:00 118 05/04/19 00:00 97.7 117 18 107/72 (84) 94 05/03/19 22:18 115 18 100 Nasal Cannula 4.0 36 122 22 95 05/03/19 21:00 Nasal Cannula 4.0 Nasal Cannula 4.0 05/03/19 20:00 118 05/03/19 20:00 97.5 117 20 107/76 (86) 98 05/03/19 19:25 95 Nasal Cannula 4.0 36 05/03/19 19:25 120 19 100 Nasal Cannula 4.0 36 117 22 97 05/03/19 16:00 98.4 118 18 109/74 (86) 94 05/03/19 16:00 111 05/03/19 14:57 111 18 99 Nasal Cannula 4.0 36 107 18 94 05/03/19 12:02 102 18 99 Nasal Cannula 4.0 36 107 18 94 05/03/19 12:00 97.6 117 18 96/66 (76) 100 05/03/19 12:00 116 Intake and Output 05/03/19 05/04/19 19:00 07:00 Intake Total 480 ml 794 ml Output Total 300 ml 250 ml Balance 180 ml 544 ml Intake Oral 480 ml IV Total 794 ml Output Urine Total 300 ml 250 ml # Voids 1 # Bowel Movements 1 3 General Appearance: no acute distress HEENT: normocephalic Respiratory/Chest: chest wall non-tender Cardiovascular: normal peripheral pulses Laboratory Tests 05/04/19 06:10: White Blood Count 4.9, Red Blood Count 2.93L, Hemoglobin 8.3L, Hematocrit 25.0L , Mean Corpuscular Volume 85, Mean Corpuscular Hemoglobin 28.3, Mean Corpuscular Hemoglobin Concent 33.1, Red Cell Distribution Width 14.8, Platelet Count 246, Mean Platelet Volume 4.3L, Neutrophils (%) (Auto) 59.8, Lymphocytes ( %) (Auto) 19.7L, Monocytes (%) (Auto) 8.6, Eosinophils (%) (Auto) 11.3H, Basophils (%) (Auto) 0.7, Sodium Level 146H, Potassium Level 4.3, Chloride Level 105, Carbon Dioxide Level 36H, Anion Gap 5, Blood Urea Nitrogen 32H, Creatinine 2.3H, Estimat Glomerular Filtration Rate 34.1, Glucose Level 83, Calcium Level 9.0 Current Medications Medications (Trade) Dose Ordered Sig/La Nena Route PRN Reason Start Time Stop Time Status Last Admin Dose Admin Acetaminophen (Tylenol) 650 mg Q6H PRN ORAL Mild Pain/Temp > 100.5 04/29/19 06:37 05/24/19 06:36 05/04/19 00:26 Acetylcysteine (Mucomyst) 200 mg Q4HRT HHN 04/29/19 07:00 05/18/19 10:59 05/04/19 07:28 Albuterol/ Ipratropium (Albuterol/ Ipratropium) 3 ml Q4H PRN HHN Shortness of Breath 05/03/19 07:00 05/08/19 06:59 05/04/19 07:30 Ascorbic Acid (Vitamin C) 250 mg DAILY ORAL 05/01/19 09:00 05/31/19 08:59 05/04/19 08:55 Dronabinol (Marinol) 5 mg TID ORAL 05/04/19 13:00 05/31/19 12:59 Enoxaparin Sodium (Lovenox) 40 mg DAILY SUBQ 04/29/19 09:00 05/25/19 08:59 05/04/19 08:56 Hydralazine HCl (Apresoline) 10 mg Q4H PRN IV SBP > 170mmHg 04/29/19 06:38 05/08/19 06:37 Lansoprazole (Prevacid) 30 mg DAILY ORAL 04/29/19 09:00 05/13/19 08:59 05/04/19 08:56 Memantine (Namenda) 5 mg BID ORAL 04/29/19 09:00 05/04/19 17:59 05/04/19 08:56 Multivitamins (Multivitamins) 1 tab DAILY ORAL 05/01/19 09:00 05/31/19 08:59 05/04/19 08:56 Sodium Chloride 1,000 ml @ 75 mls/hr [id number] IV 05/03/19 15:00 06/02/19 14:59 05/04/19 04:25 Tamsulosin HCl (Flomax) 0.4 mg BEDTIME ORAL 04/29/19 21:00 05/13/19 20:59 05/03/19 20:27 Ganesh Mathews MD May 04, 2019 10:11
--- NOTE | 2019-05-04 10:25 | Infectious Diseases Prog Note ---
Assessment/Plan Assessment/Plan Assessment: Shock, recurrent- off pressors -04/20 CXR: Interim extubation. Increased left greater than right pleural fluid Probable PNA, SP Rx -05/02 CXR: Bilateral patchy airspace opacities, improved in the left lung and worsened in the right perihilar region. -04/21 CXR:Shifting infiltrates on the right, with increased hazy midlung infiltrate, improved right basilar consolidation or atelectasis or pleural fluid. Slightly increased generalized mild interstitial congestion. Stable large left pleural effusion Low grade fever; SP Mild leukocytosis, recurrent- SP -04/15 sp cx normal resp sharyn (prelim) -04/14 u/a wbc 10-15, nit neg, leuk +3; ucx Neg CXR: Interim development of complete right upper lobe atelectasis. Nonspecific diffuse hazy left lung opacity, likely mild pulmonary edema. -04/07 Bcx NTD u/a wbc tnct, nit neg, leuk +; ucx neg -04/06 CXR: Interval resolution of right apical density. This suggests the diagnosis was atelectasis rather than an apical cap from blood, which was suggested as a possibility on the prior report. The right upper lobe atelectasis has resolved. Suspicion of new atelectasis at the right lung base. Sepsis, Sp UTI, Sp Rx B/l hydroureteronephrosis -04/10 CT abd/p: Evidence of advanced metastatic neoplasm likely secondary to prostate carcinoma. Extensive retroperitoneal and pelvic lymphadenopathy complicated by presence of bilateral hydroureteronephrosis. Extensive metastatic disease involving the bones also noted. Small left pleural effusion. Right trace right pleural effusion. Right inguinal hernia containing a small amount of fluid. Alternatively this could represent part of the testis. Anasarca. -u/a wbc 20-30, nit +, leuk +3; ucx >100k E.coli (R amp, bactrim; otherwise S) Probable Aspiration pneumonitis vs PNA -04/08 CXR: Patchy perihilar disease which may be asymmetric interstitial edema or infiltrate unchanged. Interval resolution of right basal atelectasis. -04/07 sp cx normal sharyn(prelim) s/p recent fall s/p bradycardia>cardiac arrest 04/13 s/p asystole cardiac arrest 04/06 VDRF; s/p extubation 04/08 VDRF 04/13; sp extubation 04/19 LETA Hypokalemia prostate CA stage IV, mets to bone chronic indwelling guerra catheter Plan: monitor pt off of AB Rx - 04/28 Sp Cefepime #14 -/ SP Vanc IV #4 -04/13 SP Ceftriaxone #4 - / Sp ZOsyn #4 -/6 SP IV Vancomycin #3 -2/ SP Ceftriaxone #4 -Monitor CBC/CMP, temperatures -aspiration precautions -Cards, renal, Uro, pulm f/u - possible transfer out to [facility] Thank you for this consultation. Will continue to follow along with you. Subjective Allergies: Coded Allergies: No Known Allergies (Unverified , 04/03/19) Subjective no sigh cough Objective Vital Signs Last 24 Hour Vital Signs Date Time Temp Pulse Resp B/P (MAP) Pulse Ox O2 Delivery O2 Flow Rate FiO2 05/04/19 08:00 97.5 118 18 94/67 (76) 92 05/04/19 07:33 118 22 100 Nasal Cannula 4.0 36 113 20 97 05/04/19 07:33 97 Nasal Cannula 4.0 36 05/04/19 04:00 98.0 114 18 110/74 (86) 96 05/04/19 04:00 114 05/04/19 03:27 114 18 100 Nasal Cannula 4.0 36 116 22 96 05/04/19 00:00 118 05/04/19 00:00 97.7 117 18 107/72 (84) 94 05/03/19 22:18 115 18 100 Nasal Cannula 4.0 36 122 22 95 05/03/19 21:00 Nasal Cannula 4.0 Nasal Cannula 4.0 05/03/19 20:00 118 05/03/19 20:00 97.5 117 20 107/76 (86) 98 05/03/19 19:25 95 Nasal Cannula 4.0 36 05/03/19 19:25 120 19 100 Nasal Cannula 4.0 36 117 22 97 05/03/19 16:00 98.4 118 18 109/74 (86) 94 05/03/19 16:00 111 05/03/19 14:57 111 18 99 Nasal Cannula 4.0 36 107 18 94 05/03/19 12:02 102 18 99 Nasal Cannula 4.0 36 107 18 94 05/03/19 12:00 97.6 117 18 96/66 (76) 100 05/03/19 12:00 116 Height (Feet): 5 Height (Inches): 7.00 Weight (Pounds): 144 Respiratory/Chest: normal breath sounds Cardiovascular: regular rhythm Abdomen: soft, non tender Laboratory Tests Test 05/04/19 06:10 White Blood Count 4.9 K/UL (4.8-10.8) Red Blood Count 2.93 M/UL (4.70-6.10) L Hemoglobin 8.3 G/DL (14.2-18.0) L Hematocrit 25.0 % (42.0-52.0) L Mean Corpuscular Volume 85 FL (80-99) Mean Corpuscular Hemoglobin 28.3 PG (27.0-31.0) Mean Corpuscular Hemoglobin Concent 33.1 G/DL (32.0-36.0) Red Cell Distribution Width 14.8 % (11.6-14.8) Platelet Count 246 K/UL (150-450) Mean Platelet Volume 4.3 FL (6.5-10.1) L Neutrophils (%) (Auto) 59.8 % (45.0-75.0) Lymphocytes (%) (Auto) 19.7 % (20.0-45.0) L Monocytes (%) (Auto) 8.6 % (1.0-10.0) Eosinophils (%) (Auto) 11.3 % (0.0-3.0) H Basophils (%) (Auto) 0.7 % (0.0-2.0) Sodium Level 146 MMOL/L (136-145) H Potassium Level 4.3 MMOL/L (3.5-5.1) Chloride Level 105 MMOL/L (98-107) Carbon Dioxide Level 36 MMOL/L (21-32) H Anion Gap 5 mmol/L (5-15) Blood Urea Nitrogen 32 mg/dL (7-18) H Creatinine 2.3 MG/DL (0.55-1.30) H Estimat Glomerular Filtration Rate 34.1 mL/min (>60) Glucose Level 83 MG/DL (74-106) Calcium Level 9.0 MG/DL (8.5-10.1) Current Medications Medications (Trade) Dose Ordered Sig/La Nena Route PRN Reason Start Time Stop Time Status Last Admin Dose Admin Acetaminophen (Tylenol) 650 mg Q6H PRN ORAL Mild Pain/Temp > 100.5 04/29/19 06:37 05/24/19 06:36 05/04/19 00:26 Acetylcysteine (Mucomyst) 200 mg Q4HRT HHN 04/29/19 07:00 05/18/19 10:59 05/04/19 07:28 Albuterol/ Ipratropium (Albuterol/ Ipratropium) 3 ml Q4H PRN HHN Shortness of Breath 05/03/19 07:00 05/08/19 06:59 05/04/19 07:30 Ascorbic Acid (Vitamin C) 250 mg DAILY ORAL 05/01/19 09:00 05/31/19 08:59 05/04/19 08:55 Dronabinol (Marinol) 5 mg TID ORAL 05/04/19 13:00 05/31/19 12:59 Enoxaparin Sodium (Lovenox) 40 mg DAILY SUBQ 04/29/19 09:00 05/25/19 08:59 05/04/19 08:56 Hydralazine HCl (Apresoline) 10 mg Q4H PRN IV SBP > 170mmHg 04/29/19 06:38 05/08/19 06:37 Lansoprazole (Prevacid) 30 mg DAILY ORAL 04/29/19 09:00 05/13/19 08:59 05/04/19 08:56 Memantine (Namenda) 5 mg BID ORAL 04/29/19 09:00 05/04/19 17:59 05/04/19 08:56 Multivitamins (Multivitamins) 1 tab DAILY ORAL 05/01/19 09:00 05/31/19 08:59 05/04/19 08:56 Sodium Chloride 1,000 ml @ 75 mls/hr [id number] IV 05/03/19 15:00 06/02/19 14:59 05/04/19 04:25 Tamsulosin HCl (Flomax) 0.4 mg BEDTIME ORAL 04/29/19 21:00 05/13/19 20:59 05/03/19 20:27 Bryce Osorio MD May 04, 2019 10:25
--- NOTE | 2019-05-04 10:30 | NUR ---
NURSE NOTES:wound care follow-up notes:Reabsorbed blood blister thoracic spine. Base of wound is dry .Non erythema ,exudate or fluctuance at site. Partial thickness pressure injury resolving. Dry, [place] epithelial at base of wound . NO erythema or induration periwound .Pt denied pain or tenderness when affected area palpated.Wound Tx are effective and continued as ordered . Pt has an APM/PREETI MAttress overlay . All wound prevention protocols continued as care-planned.
[2019-05-04 12:00] VITALS: BP_SYST 112; BP_SYST 135; BP_DIAS 80; BP_DIAS 93
[2019-05-04] MEDS ORDERED: Dronabinol 2.5mg Cap ORAL SCH (13:00)
--- NOTE | 2019-05-04 13:17 | Surgery Progress Note ---
Surgery Progress Note Subjective Procedure Performed right femoral central venous catheter insertion Symptoms: improved Additional Comments doing well no complaints cr noted exam stable tolerating diet Objective Last 24 Hour Vital Signs Date Time Temp Pulse Resp B/P (MAP) Pulse Ox O2 Delivery O2 Flow Rate FiO2 05/04/19 10:23 120 22 100 Nasal Cannula 4.0 36 115 20 94 05/04/19 09:00 Nasal Cannula 4.0 Nasal Cannula 4.0 05/04/19 08:00 97.5 118 18 94/67 (76) 92 05/04/19 08:00 115 05/04/19 07:33 118 22 100 Nasal Cannula 4.0 36 113 20 97 05/04/19 07:33 97 Nasal Cannula 4.0 36 05/04/19 04:00 98.0 114 18 110/74 (86) 96 05/04/19 04:00 114 05/04/19 03:27 114 18 100 Nasal Cannula 4.0 36 116 22 96 05/04/19 00:00 118 05/04/19 00:00 97.7 117 18 107/72 (84) 94 05/03/19 22:18 115 18 100 Nasal Cannula 4.0 36 122 22 95 05/03/19 21:00 Nasal Cannula 4.0 Nasal Cannula 4.0 05/03/19 20:00 118 05/03/19 20:00 97.5 117 20 107/76 (86) 98 05/03/19 19:25 95 Nasal Cannula 4.0 36 05/03/19 19:25 120 19 100 Nasal Cannula 4.0 36 117 22 97 05/03/19 16:00 98.4 118 18 109/74 (86) 94 05/03/19 16:00 111 05/03/19 14:57 111 18 99 Nasal Cannula 4.0 36 107 18 94 I&O Intake and Output 05/03/19 05/04/19 19:00 07:00 Intake Total 480 ml 794 ml Output Total 300 ml 250 ml Balance 180 ml 544 ml Intake Oral 480 ml IV Total 794 ml Output Urine Total 300 ml 250 ml # Voids 1 # Bowel Movements 1 3 Dressing: other Wound: other Drains: other Cardiovascular: RSR Abdomen: non-tender, present bowel sounds Extremities: no edema, no tenderness, no cyanosis Laboratory Tests Test 05/04/19 06:10 White Blood Count 4.9 K/UL (4.8-10.8) Red Blood Count 2.93 M/UL (4.70-6.10) L Hemoglobin 8.3 G/DL (14.2-18.0) L Hematocrit 25.0 % (42.0-52.0) L Mean Corpuscular Volume 85 FL (80-99) Mean Corpuscular Hemoglobin 28.3 PG (27.0-31.0) Mean Corpuscular Hemoglobin Concent 33.1 G/DL (32.0-36.0) Red Cell Distribution Width 14.8 % (11.6-14.8) Platelet Count 246 K/UL (150-450) Mean Platelet Volume 4.3 FL (6.5-10.1) L Neutrophils (%) (Auto) 59.8 % (45.0-75.0) Lymphocytes (%) (Auto) 19.7 % (20.0-45.0) L Monocytes (%) (Auto) 8.6 % (1.0-10.0) Eosinophils (%) (Auto) 11.3 % (0.0-3.0) H Basophils (%) (Auto) 0.7 % (0.0-2.0) Sodium Level 146 MMOL/L (136-145) H Potassium Level 4.3 MMOL/L (3.5-5.1) Chloride Level 105 MMOL/L (98-107) Carbon Dioxide Level 36 MMOL/L (21-32) H Anion Gap 5 mmol/L (5-15) Blood Urea Nitrogen 32 mg/dL (7-18) H Creatinine 2.3 MG/DL (0.55-1.30) H Estimat Glomerular Filtration Rate 34.1 mL/min (>60) Glucose Level 83 MG/DL (74-106) Calcium Level 9.0 MG/DL (8.5-10.1) Plan Problems: (1) Cardiac arrest Assessment & Plan: Acute deterioration Cardiovascular lopez ACLS required for resuscitation Still full code Hypotensive intensive care unit requiring a new central venous catheter see note Antibiotics as per infectious caries cont current treatment improving trend labs diet as tolerated improving on bipap may require intubation if so will recommend trach will follow with recs cont tube feeds lasix gtt family does not want thora repeat swallow may consider po intake for comfort measure does not want peg downgraded swallow noted improving air mattress preventative in place given condition turning often no skin issues and good preventative methods in place thank you (2) Stage III adenocarcinoma of prostate Assessment & Plan: patient with state 3 prostate cancer pending treatment at [facility] unlikely related to acute cardiac arrest this am abd exam with mild distention no acute surgical intervention planned onc input improving extubated diet as tolerated improving d/c planning thank you will follow with recs DAILY ESTIMATED NEEDS: Needs based on Underweight, cancer, Pulmonary 54.7kg 30-35 kcals/kg 9672-5469 total kcals 1.25-2 g protein/kg 68-109 g total protein 25-30 mL/kg 9887-4028 total fluid mLs NUTRITION DIAGNOSIS: Underweight r/t cancer? as evidenced by pt w/ prostate cancer, elevated antigen and calcium levels, w/ generalized moderate wasting, previously poor po intake, pt is 81% of [place] body Weight, currently s/p code blue x2, re-intubated now extubated, NGT feeds held, on oral diet now w/ texture modifications. CURRENT DIET:Regular puree / NTL PO DIET RECOMMENDATIONS: Maintain Regular diet/ texture per PROVIDER RELATIONS ADVOCATE ADDITIONAL RECOMMENDATIONS: 1) Recalibrated bed wts for daily wts -> daily wts are inconsistent 2) Wound healing: add MVI + Vit C 250mg QD + Coleman BID 3) Monitor lytes, replete as needed 4) Rec D5% with current fair to poor po intake to prevent hypoglycemia 5) Continue Ensure Enlive TID . Jay Acevedo May 04, 2019 13:17
--- NOTE | 2019-05-04 13:45 | NUR ---
NURSE NOTES: Spoke with Amy , Daughter, regarding discharge, per Amy somebody will pick the patient up. Per Amy, patient need wheelchair, informed Home health already arranged.
--- NOTE | 2019-05-04 14:00 | Progress Note ---
DATE: 05/04/2019 SUBJECTIVE: The patient is a 73-year-old male patient who was admitted to the hospital with generalized weakness, dehydration, but he has some confusion, disorganized thought process, mood lability, decline in cognition below his baseline. DIAGNOSIS: Paranoid schizophrenia acute exacerbation. PLAN: Plan is to treat him with a medication regimen of Namenda 5 mg twice a day to prevent further decline in his cognition, Ativan as needed for anxiety and agitation. A 20 minutes of cognitive behavioral therapy to help him identify his automatic negative thoughts, convert his negative thoughts to more positive thoughts to reduce depression, anxiety, mood lability. Chart reviewed. Discussed with staff. Seen and assessed in his room. Cherise Palma M.D. DR: MANDI JOB#: [id number] CC:
--- NOTE | 2019-05-04 14:01 | NUR ---
DISCHARGE SWALLOW/SPEECH THERAPY SUMMARY: PATIENT SEE FOR DYSPHAGIA, SEE SWALLOW EVALUATION. UNABLE TO COMPLETE MOD BARIUM SWALLOW STUDY TO DATE DUE TO SCHEDULE CONFLICTS. PATIENT HAS PEG FEEDINGS AND IS ALSO RECEIVING PUREED AND NECTAR THICK LIQUIDS. GOALS MET FOR NEW STAFF EDUCATED/TRAINED IN POSTED ASPIRATION PRECAUTIONS. GOALS NOT MET FOR PO INTAKE 25-45% W/O OVERT ASPIRATION REPORTED BUT HAS NONORAL FEEDINGS SUPPLEMENT OR PRIMARY SOURCE OF NUTRITION/HYDRATION. PER RD, PATIENT DID NOT LIKE PUREED DIET BUT FOUND IT MORE PALATABLE WHEN SYRUP ADDED TO IT. PATIENT DID NOT WANT ANY PO TRIALS WITH SENIOR PROJECT MANAGER ENGINEERING. HE DENIED HAVING PROBLEMS OR S/S OF ASPIRATION WITH MEALS. HE WAS TOLD THAT F/UP WITH [facility] SENIOR PROJECT MANAGER ENGINEERING IS RECOMMENDED FOR DYSPHAGIA MANAGEMENT AND TX WITH MOD BARIUM SWALLOW STUDY OP. PLAN: F/UP WITH [facility] SENIOR PROJECT MANAGER ENGINEERING SKILLED DYSPHAGIA MANAGEMENT AND TX CONSIDER OUTPT MODIFIED BARIUM SWALLOW STUDY OUTPATIENT TO FURTHER ASSESS SWALLOW, DETERMINE SILENT ASPIRATION RISK, AND ATTEMPT TRIAL TX TECHNIQUES. D/W BLANCA PEREZ.
--- NOTE | 2019-05-04 14:11 | Cardiac Electrophysiology PN ---
Assessment/Plan Assessment/Plan 1. Status post 2 separate non infarctional juan antonio arrest with asystole. Both episodes happened in the setting of respiratory failure and off the Vent No evidence of ventricular tachycardia or ventricular fibrillation. Off any GARCÍA or AVN olivia EF 65%. All 3 troponins were less than 0.1. Watch for recurrence of bradycardia Family refusing any procedures 2. Recurrent Respiratory failure, extubated 04/08/19, reintubated 04/13/19 and reextubated 04/19/19 Back on 4 liter NC 3. History of stage III prostate cancer, followed by Dr. Monroy and Dr Root. Morales was changed. Usually follows up at [facility] 4. S/P Shock. Off Levophed 5. Hypercalcemia due to prostate cancer. 6. Hypernatremia. 7. Anemia, s/p multiple PRBCs 8. Low K. Replace 9. Dysphagia, family refused PEG by Dr. Lamb On Puree diet but not getting enough calories 10. Pleural effusion, off Lasix drip. Family refused thoracentesis DW RN DC home today pending Subjective Subjective No bradycardia or tachycardia recurrence. DC home pending Oxygen delivery. On 4 liter NC [facility] declined him and family refusing thoracentesis or PEG Objective Last 24 Hour Vital Signs Date Time Temp Pulse Resp B/P (MAP) Pulse Ox O2 Delivery O2 Flow Rate FiO2 05/04/19 13:23 89 18 99 Nasal Cannula 4.0 36 111 21 96 05/04/19 10:23 120 22 100 Nasal Cannula 4.0 36 115 20 94 05/04/19 09:00 Nasal Cannula 4.0 Nasal Cannula 4.0 05/04/19 08:00 97.5 118 18 94/67 (76) 92 05/04/19 08:00 115 05/04/19 07:33 118 22 100 Nasal Cannula 4.0 36 113 20 97 05/04/19 07:33 97 Nasal Cannula 4.0 36 05/04/19 04:00 98.0 114 18 110/74 (86) 96 05/04/19 04:00 114 05/04/19 03:27 114 18 100 Nasal Cannula 4.0 36 116 22 96 05/04/19 00:00 118 05/04/19 00:00 97.7 117 18 107/72 (84) 94 05/03/19 22:18 115 18 100 Nasal Cannula 4.0 36 122 22 95 05/03/19 21:00 Nasal Cannula 4.0 Nasal Cannula 4.0 05/03/19 20:00 118 05/03/19 20:00 97.5 117 20 107/76 (86) 98 05/03/19 19:25 95 Nasal Cannula 4.0 36 05/03/19 19:25 120 19 100 Nasal Cannula 4.0 36 117 22 97 05/03/19 16:00 98.4 118 18 109/74 (86) 94 05/03/19 16:00 111 05/03/19 14:57 111 18 99 Nasal Cannula 4.0 36 107 18 94 Intake and Output 05/03/19 05/04/19 19:00 07:00 Intake Total 480 ml 794 ml Output Total 300 ml 250 ml Balance 180 ml 544 ml Intake Oral 480 ml IV Total 794 ml Output Urine Total 300 ml 250 ml # Voids 1 # Bowel Movements 1 3 Laboratory Tests Test 05/04/19 06:10 White Blood Count 4.9 K/UL (4.8-10.8) Red Blood Count 2.93 M/UL (4.70-6.10) L Hemoglobin 8.3 G/DL (14.2-18.0) L Hematocrit 25.0 % (42.0-52.0) L Mean Corpuscular Volume 85 FL (80-99) Mean Corpuscular Hemoglobin 28.3 PG (27.0-31.0) Mean Corpuscular Hemoglobin Concent 33.1 G/DL (32.0-36.0) Red Cell Distribution Width 14.8 % (11.6-14.8) Platelet Count 246 K/UL (150-450) Mean Platelet Volume 4.3 FL (6.5-10.1) L Neutrophils (%) (Auto) 59.8 % (45.0-75.0) Lymphocytes (%) (Auto) 19.7 % (20.0-45.0) L Monocytes (%) (Auto) 8.6 % (1.0-10.0) Eosinophils (%) (Auto) 11.3 % (0.0-3.0) H Basophils (%) (Auto) 0.7 % (0.0-2.0) Sodium Level 146 MMOL/L (136-145) H Potassium Level 4.3 MMOL/L (3.5-5.1) Chloride Level 105 MMOL/L (98-107) Carbon Dioxide Level 36 MMOL/L (21-32) H Anion Gap 5 mmol/L (5-15) Blood Urea Nitrogen 32 mg/dL (7-18) H Creatinine 2.3 MG/DL (0.55-1.30) H Estimat Glomerular Filtration Rate 34.1 mL/min (>60) Glucose Level 83 MG/DL (74-106) Calcium Level 9.0 MG/DL (8.5-10.1) Objective HEENT: No JVD. LUNGS: Coarse rhonchi. CARDIOVASCULAR: Regular S1 and S2 ABDOMEN: Soft and nondistended. EXTREMITIES: No pitting edema. Nain Cortez MD May 04, 2019 14:11
--- NOTE | 2019-05-04 15:15 | NUR ---
NURSE NOTES: FAX number for wheelchair provided,
--- NOTE | 2019-05-04 15:28 | NUR ---
DISCHARGE PLANNING PER DAUGHTERS REQUEST WHEEL CHAIR ORDER HAS BEEN FAXED TO [employer] F: [phone] Addendum: 05/04/19 at 1533 by JO ROBLEDO LVN LVN WHEELCHAIR CAN BE DELIVERED TO THE HOME HOME OXYGEN HAS BEEN DELIVERED TO BEDSIDE ~ ONCE HOME, DTR NEEDS TO CALL [facility] SO THEY CAN DELIVER OXYGEN CONCENTRATOR
[2019-05-04 16:00] VITALS: BP 135/93
--- NOTE | 2019-05-04 17:10 | NUR ---
NURSE NOTES: Patient discharged Per Dr. Toussaint. Per Dr. Root, keep Morales in when discharge, per Dr. Mathews, okay to discharge with 4L oxygen. Per Dr. Toussaint discharge if cleared by pulmo. Patient AOx2-3, 4L oxygen O2 sat 94%, oxygen tank at the bedside, family member at the bedside. IV removed and ID band removed and placed in shredder. monitor technician returned to personnel monitor. Patient discharged with all belongings, via private vehicle, in a stable condition.
--- NOTE | 2019-05-05 17:10 | Discharge Summary ---
Discharge Summary Discharge Summary _ DATE OF ADMISSION: 04/03/2019 DATE OF DISCHARGE: 05/04/2019 DISCHARGED BY: Dr. Toussaint REASON FOR ADMISSION: 73 years old male with past medical history of COPD, hypertension, presented with generalized weakness for 3 days. Patient reported history of prostate cancer, stage III , chronic indwelling Morales catheter. Patient was not eating for several days and was staying in the bed. No nausea , no vomiting . No noted fever or chills. Pulse oximetry was stable on room air. Urinalysis was grossly positive for UTI. No leukocytosis ,hemoglobin 9.8, hematocrit 29.7, platelet count 241. Sodium 148. Chloride 110. BUN 4, creatinine 0.7. Glucose 100. Stable LFT. Troponin 0.028. pro BNP 32. Albumin 4.0 TSH 1.095 EKG revealed sinus rhythm , no acute ischemic changes. CT scan of the head revealed no acute intracranial abnormality. Mild chronic ischemic changes and cerebral volume loss noted. Patient subsequently admitted for further management CONSULTANTS: manager camp Dr. Lovell pulmonary Dr. Mathews ID specialist Dr. Nielson GI specialist Dr. Lamb email designer Dr. White district wildlife manager/oncologist Dr. Monroy surgery Dr. Acevedo psychiatrist Dr. Palma urology [facility] COURSE: Patient admitted and started on empiric antibiotics and IV hydration. Volumes , cardiorenal parameters and electrolytes were closely monitored and corrected as needed. Hemodynamic status was closely monitored. On 04/06 patient sustained bradycardic arrest. ACLS protocol initiated. Patient required emergency oral intubation. Chest x-ray confirmed placement of ET tube . Patient was transferred to ICU for further management. Ventilator support and pulmonary toilet provided. Patient was followed-up with chest x-ray and ABG; settings titrated based on ABG results. Hemodynamic status was closely monitored. Patient was on pressors, titrated to keep mean arterial blood pressure above 65. Sr. [employer] System Administrator closely followed. Patient initially was able to be extubated on 04/08. However he sustained another cardiac arrest on 04/13 and was intubated , status post extubation on 04/19. Per cardiology , patient had two separate non-infarction bradycardic arrest with asystole , which happened in the setting of respiratory failure . No evidence of ventricular tachycardia / ventricular fibrillation. Patient was off any SA node or AV node blockers. Echocardiogram revealed preserved ejection fraction. Serial troponin were negative. Sr. [employer] System Administrator advised to watch for recurrence of bradycardia. Family refused any procedure at this time. Chest x-ray showed bilateral pleural effusion. Family refused thoracentesis. Patient started on Lasix drip with close monitoring of volumes, renal parameters and electrolytes. Last chest x-ray showed bilateral patchy airspace opacity improved in the left leg and worsened in the right perihilar region. Mild leukocytosis resolved, no fevers. Prior to discharge pulse oximetry was stable on oxygen 4 L via nasal cannula. Urine culture revealed E. coli. Blood cultures were negative, initially and repeated. Urine culture was negative and repeated urine culture was negative. Patient completed treatment for possible aspiration pneumonitis and UTI. ID specialist recommended to monitor patient off antibiotic . Patient was followed-up with speech therapist. Patient noted to have dysphagia. Patient was assisted with feeding. Family declined feeding tube placement. Strict aspiration precautions were maintained. Patient demonstrated poor oral intake. Marinol was added. Diet texture provided as per speech therapist recommendations. Patient demonstrated during the course of hospitalization coffee-ground emesis and evidence of anemia. Patient undergone transfusion of 3 units of packed red blood cells , while in the hospital. Prior to discharge hemoglobin 8.3 , hematocrit 25. Stool for occult blood was negative. CT scan of the abdomen and pelvis revealed evidence of advanced metastatic neoplasm , likely secondary to prostate carcinoma. Extensive retroperitoneal and pelvic lymphadenopathy, complicated by presence of bilateral hydroureteronephrosis. Extensive metastatic disease involving the bones. Pain management was addressed. Oncologist followed. PSA 753. Records from [facility] were reviewed. Patient undergone 3-year course of androgen deprivation from , status post radiation to the prostate and then lost to follow-up. In 2017 patient started on Lupron PSA , then stopped. . Patient did not go through ureteral stenting and deferred treatment with chemotherapy. Oncologist spoke with the patient's sister regarding further goals of care and poor prognosis . Urologist followed. Urologist recommended to keep Morales in ; last was replaced on 04/10. Hand n irrigate as needed. Morales position was satisfactory. Renal function along with urine output were closely monitored. Per urologist patient likely had obstruction of bilateral distal ureters, secondary to advanced prostate cancer. Consider ureteral stent or nephrostomy tubes, if family agree. Flomax was added. Consider voiding trial at some point. Renal parameters and electrolytes were closely monitored. Nephrotoxins were avoided. Electrolytes corrected as needed. Creatinine remained stable. For hypercalcemia patient received nasal calcitonin and pamidronate x1. Prior to discharge calcium down to 9.0 ( calcium on 04/04-13.4). Per psychiatrist , patient had paranoid schizophrenia with acute exacerbation. Psychiatric medication regimen was optimized. Cognitive behavioral therapy provided. Family decided to take patient home and possibly follow-up with [facility] , or may consider comfort care. Family refused PEG and thoracentesis. Wheelchair and home oxygen were arranged for home delivery. Patient was stable for discharge. Overall prognosis remained poor. FINAL DIAGNOSES: Sepsis UTI Bilateral hydroureteronephrosis Probable pneumonia, possible aspiration pneumonitis Status post two separate non-infarction bradycardic arrest with asystole Status post recurrent respiratory failure intubated 04/06 , extubated 04/08; re- intubated 04/13 and extubated 04/19 Prostate cancer stage 4 with metastasis Shock Hypercalcemia Hypernatremia Anemia due to underlying malignancy Hypokalemia Dysphagia Pleural effusion History of COPD Acute kidney injury on CKD 3B Paranoid schizophrenia with acute exacerbation DISCHARGE MEDICATIONS: See Medication Reconciliation list. DISCHARGE INSTRUCTIONS: Patient was discharged home. Follow-up with a primary care provider in 1 week. I have been assigned to dictate discharge summary for this account. I was not involved in the patient's management. Nancy Rosa NP May 05, 2019 17:10
== END 2019-05-04 17:10 | disposition home health service (06) | DRG 870 ==
LOC: EDBD 16:20 → EMR 17:21 → 2E 17:32 → EDBEDREQ 18:22 → 2E 20:55 → ICU 04-06 07:22 → 2W 04-09 20:35 → ICU 04-13 14:25 → 2W 04-27 19:41 → 2E 04-29 05:58
PROC: 5A1955Z Respiratory Ventilation, Greater than 96 Consecutive Hours (ICD-10-PCS; principal; 2019-04-06)
PROC: 0BH17EZ Insertion of Endotracheal Airway into Trachea, Via Natural or Artificial Opening (ICD-10-PCS; principal; 2019-04-06)
PROC: 05H533Z Insertion of Infusion Device into Right Subclavian Vein, Percutaneous Approach (ICD-10-PCS; principal; 2019-04-06)
PROC: 0BH17EZ Insertion of Endotracheal Airway into Trachea, Via Natural or Artificial Opening (ICD-10-PCS; 2019-04-13)
PROC: 06HM33Z Insertion of Infusion Device into Right Femoral Vein, Percutaneous Approach (ICD-10-PCS; 2019-04-13)
PROC: 5A1945Z Respiratory Ventilation, 24-96 Consecutive Hours (ICD-10-PCS; 2019-04-13)
DX: A41.9 Sepsis, unspecified organism (principal); J96.90 Respiratory failure, unspecified, unspecified whether with hypoxia or hypercapnia; I46.2 Cardiac arrest due to underlying cardiac condition; J69.0 Pneumonitis due to inhalation of food and vomit; N17.0 Acute kidney failure with tubular necrosis; J18.9 Pneumonia, unspecified organism; N39.0 Urinary tract infection, site not specified; N17.9 Acute kidney failure, unspecified; C79.51 Secondary malignant neoplasm of bone; E87.0 Hyperosmolality and hypernatremia; F33.3 Major depressive disorder, recurrent, severe with psychotic symptoms; K92.0 Hematemesis; R57.9 Shock, unspecified; J90 Pleural effusion, not elsewhere classified; N13.30 Unspecified hydronephrosis; Z99.11 Dependence on respirator [ventilator] status; F20.0 Paranoid schizophrenia; J44.0 Chronic obstructive pulmonary disease with (acute) lower respiratory infection; C61 Malignant neoplasm of prostate; D63.0 Anemia in neoplastic disease; E87.6 Hypokalemia; E83.52 Hypercalcemia; E86.0 Dehydration; R00.1 Bradycardia, unspecified; R13.10 Dysphagia, unspecified; R33.9 Retention of urine, unspecified; R31.9 Hematuria, unspecified; B96.20 Unspecified Escherichia coli [E. coli] as the cause of diseases classified elsewhere; N18.3 Chronic kidney disease, stage 3 (moderate)
CPT/HCPCS: 36415; 36600; 70450; 71045; 74018; 74176; 76770; 80048; 80053; 80202; 81001; 81003; 82150; 82270; 82550; 82803; 82962; 83605; 83690; 83735; 83880; 83970; 84100; 84153; 84439; 84443; 84484; 85007; 85025; 85610; 85651; 85730; 86140; 86850; 86900; 86901; 86920; 87040; 87070; 87086; 87181; 87205; 87324; 93005; 93306; 94002; 94003; 94640; 94664; 96361; 96365; 97803; 99285; J0171; J2430; J7030; J7620; J8499